=== PATIENT | female | born 1965 | race Caucasian/White ===

== ENCOUNTER 2016-12-27 13:32 | Emergency (ER) | payer BC, OTHER ==
[~2016-12-27] VITALS: Ht 154.9 cm; Wt 102.1 kg
[~2016-12-27 13:32] MED LIST: ALBU8.5H2 IH; CYCL10TA9 PO; DIPH25TA82 PO; FOLI1TAB24 PO; HYDR-34 PO; HYDR-3720 PO; LISI40TA PO; LYRICA; MELO7.5T46 PO; OMEP20CA12 PO; OMEP20CA6; ONDN4T PO; OTC SINUS; PREG75CA PO; RABE20TA PO; TRAM50TA2 PO; TRAZ150T42 PO; TRM50T PO; VARE1TAB19 PO; VENL150C PO; VENL25TA5 PO; VENL75CA PO; VNL75T PO; ZLP5T PO; ZOLP10TA5 PO
[2016-12-27] MEDS: RX-NITROGLYCERIN 0.4 MG TAB BTL 25'S SL PRN (13:47)
--- NOTE | 2016-12-27 13:52 | ED General ---
General Chief Complaint: General Problems/Pain Stated Complaint: L ARM, BACK, BOTH LEGS NUMBNESS. CP Source of Information: Patient, Family Exam Limitations: No Limitations History of Present Illness Time Seen by Provider: 13:47 Initial Comments This 51-year-old white female presents with a complaint of numbness in her left arm. Patient states that she's had progressive numbness and left arm for the last several weeks. In addition the patient has noted increased swelling of her lower extremities and associated pitting edema. The patient denies pressure -type chest pain, shortness of breath, fever or chills, previous significant injury to the head neck or left arm. Past medical history includes hypertension. The patient denies change in medications. Patient denies associated fever or chills, stiff neck, headache, cough, palpitations, nausea, vomiting, or diaphoresis. Allergies and Home Medications Allergies Coded Allergies: methotrexate (Unverified Allergy, Unknown, INCREASED LIVER ENZYMES, ) procaine (Unverified Allergy, Unknown, RASH, 06/26/14) Home Medications Albuterol 8.5 Gm Hfa.aer.ad, 1 PUFF IH RTQ4HR, (Reported) 1 PUFFS Folic Acid 1 Mg Tablet, 1 MG PO DAILY, (Reported) Lisinopril 40 Mg Tablet, 40 MG PO DAILY, (Reported) Trazodone Hcl 150 Mg Tablet, 150 MG PO HS, (Reported) Venlafaxine HCl 75 Mg Cap.er.24h, 75 MG PO DAILY, (Reported) TAKE WITH 150MG DOSE Venlafaxine HCl 75 Mg Tab, 75 MG PO DAILY, (Reported) Venlafaxine Hcl 150 Mg Cap.sr.24h, 150 MG PO DAILY, (Reported) TAKE WITH 75MG DOSE Zolpidem Tartrate 10 Mg Tablet, 10 MG PO HS PRN for INSOMNIA, (Reported) PRN INSOMNIA Constitutional: No chills, No fever, malaise, weakness EENTM: No hearing loss, No vision loss Respiratory: No cough, No dyspnea on exertion, No short of breath Cardiovascular: No chest pain Gastrointestinal: No abdominal pain, No diarrhea, No nausea, No vomiting Genitourinary: no symptoms reported Musculoskeletal: no symptoms reported Skin: no symptoms reported Psychiatric/Neurological: No Symptoms Reported Hematologic/Lymphatic: No Symptoms Reported Past Janxitc-Ywldrt-Pekccr Hx Patient Social History Recent Foreign Travel: No Contact w/Someone Who Travel: No Immunizations Up To Date Date of Pneumonia Vaccine: Mar 08, 2013 Date of Influenza Vaccine: Jan 09, 2011 Respiratory Respiratory Disorders: Asthma, COPD Reproductive System Hx Reproductive Disorders: No Sexually Transmitted Disease: No [employer] History: Tubal Ligation Musculoskeletal Musculoskeletal Disorders: Fibromyalgia Reviewed Nursing Assessment Reviewed/Agree w Nursing PMH: Yes Physical Exam Vital Signs Vital Sign - Last 12Hours 12/27/16 13:36 Temp 97.4 Pulse 84 Resp 18 B/P (MAP) 154/110 Pulse Ox 97 O2 Delivery Room Air Capillary Refill : General Appearance: No Apparent Distress, WD/WN Eyes: Bilateral Eye Normal Inspection HEENT: Normal ENT Inspection Neck: Normal Inspection Respiratory: Chest Non Tender, Lungs Clear, Normal Breath Sounds Cardiovascular: Regular Rate, Rhythm, No JVD, No Murmur Gastrointestinal: Normal Bowel Sounds, No Organomegaly, No Pulsatile Mass Back: Normal Inspection Extremity: Normal Capillary Refill, Normal Inspection, Normal Range of Motion Neurologic/Psychiatric: No Motor/Sensory Deficits, Normal Mood/Affect Skin: Normal Color, Warm/Dry Progress/Results/Core Measures Results/Orders Lab Results Laboratory Tests Test 12/27/16 10:43 Range/Units White Blood Count 8.0 4.3-11.0 10^3/uL Red Blood Count 4.53 4.35-5.85 10^6/uL Hemoglobin 13.2 11.5-16.0 G/DL Hematocrit 40 35-52 % Mean Corpuscular Volume 89 80-99 FL Mean Corpuscular Hemoglobin 29 25-34 PG Mean Corpuscular Hemoglobin Concent 33 32-36 G/DL Red Cell Distribution Width 12.6 10.0-14.5 % Platelet Count 291 130-400 10^3/uL Mean Platelet Volume 10.1 7.4-10.4 FL Neutrophils (%) (Auto) 49 42-75 % Lymphocytes (%) (Auto) 42 12-44 % Monocytes (%) (Auto) 7 0-12 % Eosinophils (%) (Auto) 2 0-10 % Basophils (%) (Auto) 0 0-10 % Neutrophils # (Auto) 3.9 1.8-7.8 X 10^3 Lymphocytes # (Auto) 3.3 1.0-4.0 X 10^3 Monocytes # (Auto) 0.6 0.0-1.0 X 10^3 Eosinophils # (Auto) 0.2 0.0-0.3 10^3/uL Basophils # (Auto) 0.0 0.0-0.1 10^3/uL Prothrombin Time 12.0 L 12.2-14.7 SEC INR Comment 0.9 0.8-1.4 Activated Partial Thromboplast Time 34 24-35 SEC D-Dimer 0.39 0.00-0.49 UG/ML Sodium Level 139 135-145 MMOL/L Potassium Level 4.0 3.6-5.0 MMOL/L Chloride Level 102 98-107 MMOL/L Carbon Dioxide Level 25 21-32 MMOL/L Anion Gap 12 5-14 MMOL/L Blood Urea Nitrogen 12 7-18 MG/DL Creatinine 0.76 0.60-1.30 MG/DL Estimat Glomerular Filtration Rate > 60 BUN/Creatinine Ratio 16 Glucose Level 121 H 70-105 MG/DL Calcium Level 9.5 8.5-10.1 MG/DL Magnesium Level 1.8 1.8-2.4 MG/DL Total Bilirubin 0.4 0.1-1.0 MG/DL Aspartate Amino Transf (AST/SGOT) 28 5-34 U/L Alanine Aminotransferase (ALT/SGPT) 37 0-55 U/L Alkaline Phosphatase 109 40-136 U/L Myoglobin 70.0 10.0-92.0 NG/ML Troponin I < 0.30 <0.30 NG/ML B-Type Natriuretic Peptide 10.6 <100.0 PG/ML Total Protein 7.6 6.4-8.2 GM/DL Albumin 4.1 3.2-4.5 GM/DL My Orders Orders - MAKI, RUSTY Shaw MD Cbc With Automated Diff (12/27/16 13:45) Magnesium (12/27/16 13:45) Chest 1 View, Ap/Pa Only (12/27/16 13:45) Ekg Tracing (12/27/16 13:45) Cardiac Profile 1 (12/27/16 13:45) Comprehensive Metabolic Panel (12/27/16 13:45) Myoglobin Serum (12/27/16 13:45) Protime With Inr (12/27/16 13:45) Partial Thromboplastin Time (12/27/16 13:45) O2 (12/27/16 13:45) Monitor-Rhythm Ecg Trace Only (12/27/16 13:45) Lipid Panel (12/28/16 06:00) Aspirin Chewable Tablet (Baby Aspirin Ch (12/27/16 13:45) Rx-Nitroglycerin Sl Tabs (Rx-Nitrostat S (12/27/16 13:45) Saline Lock/Iv-Start (12/27/16 13:45) BNP (12/27/16 13:45) Fibrin Degradation Products (12/27/16 13:45) Medications Given in ED Current Medications Medications Dose Ordered Sig/Erick Route Start Time Stop Time Status Last Admin Dose Admin Aspirin 324 mg ONCE ONCE PO 12/27/16 13:45 12/27/16 13:47 DC 12/27/16 13:55 324 MG Vital Signs/I&O Vital Sign - Last 12Hours 12/27/16 13:36 Temp 97.4 Pulse 84 Resp 18 B/P (MAP) 154/110 Pulse Ox 97 O2 Delivery Room Air Progress Note : Time: 14:53 Progress Note The patient's EKG and laboratory tests including d-dimer, BNP, and troponin were all normal. Patient was reassured. She was asked to follow up with her caregiver for further evaluation on Thursday. She was invited to return to the emergency department if she had any further problems or questions. Departure Impression Impression: Primary Impression: Paresthesias Disposition: 01 HOME, SELF-CARE Condition: Unchanged Departure-Patient Inst. Decision time for Depature: 14:54 Referrals: [facility][1] (PCP) Primary Care Physician TON LERMA (Family) Primary Care Physician Patient Instructions: Paresthesias (DC) Add. Discharge Instructions: Follow-up [facility] on Thursday. Rest this . Return if any problems. All discharge instructions reviewed with patient and/or family. Voiced understanding. RUSTY GAMBINO MD Dec 27, 2016 13:52
[2016-12-27] MEDS: ASPIRIN 81 MG CHEW (CHILDREN'S ASA) PO ONE (13:55)
[2016-12-27 13:56] LABS: BASOPHILS % (AUTO) 0 % (0-10); EOSINOPHILS # (AUTO) 0.2 10^3/uL (0.0-0.3); EOSINOPHILS % (AUTO) 2 % (0-10); LYMPHOCYTES # (AUTO) 3.3 X 10^3 (1.0-4.0); LYMPHOCYTES % (AUTO) 42 % (12-44); MEAN CORPUSCULAR HEMOGLOBIN 29 PG (25-34); MEAN CORPUSCULAR HGB CONC 33 G/DL (32-36); MEAN CORPUSCULAR VOLUME 89 FL (80-99); MEAN PLATELET VOLUME 10.1 FL (7.4-10.4); MONOCYTES # (AUTO) 0.6 X 10^3 (0.0-1.0); MONOCYTES % (AUTO) 7 % (0-12); NEUTROPHILS # (AUTO) 3.9 X 10^3 (1.8-7.8); NEUTROPHILS % (AUTO) 49 % (42-75); PLATELET COUNT 291 10^3/uL (130-400); RED BLOOD COUNT 4.53 10^6/uL (4.35-5.85); RED CELL DISTRIBUTION WIDTH 12.6 % (10.0-14.5)
--- NOTE | 2016-12-27 14:02 | Diagnostic Imaging Report ---
INDICATION: Numbness in both legs. Left arm pain A single view of the chest shows normal heart size and vascularity. The lungs are clear. There is no effusion or pneumothorax. There is no bony abnormality. IMPRESSION: Normal chest. Dictated by: Dictated on workstation # [id number]
[2016-12-27 14:06] LABS: INR 0.9 (0.8-1.4)
[2016-12-27 14:14] LABS: ALANINE AMINOTRANSFERASE 37 U/L (0-55); ALBUMIN 4.1 GM/DL (3.2-4.5); ANION GAP 12 MMOL/L (5-14); ASPARTATE AMINO TRANSFERASE 28 U/L (5-34); BILIRUBIN,TOTAL 0.4 MG/DL (0.1-1.0); BLOOD UREA NITROGEN 12 MG/DL (7-18); BUN/CREATININE RATIO 16; CALCIUM 9.5 MG/DL (8.5-10.1); CARBON DIOXIDE 25 MMOL/L (21-32); CHLORIDE 102 MMOL/L (98-107); CREATININE SERUM 0.76 MG/DL (0.60-1.30); GFR ESTIMATED > 60; GLUCOSE 121 MG/DL (70-105); MAGNESIUM 1.8 MG/DL (1.8-2.4); SODIUM 139 MMOL/L (135-145); TOTAL PROTEIN 7.6 GM/DL (6.4-8.2)
[2016-12-27 15:13] VITALS: BP 138/89
--- OUTSIDE RECORDS SUMMARY | 2016-12-29 10:14 | XMS REPORT ---
Author Author TON LERMA [facility] eClinicalWorks Address Unknown Phone Unavailable Care Team Providers Care Pump Mechanic Name Role Phone TON LERMA CP Unavailable Allergies No Known Allergies Problems Problem Type Condition Code Onset Dates Condition Status Problem Abnormal PFT R94.2 Active Problem Anxiety F41.9 Active Problem GERD with esophagitis K21.0 Active Problem Edema, unspecified type R60.9 Active Assessment Visit for TB skin test Z11.1 Active Problem Weight gain R63.5 Active Problem Psoriasis vulgaris L40.0 Active Problem Uncomplicated asthma, unspecified asthma severity J45.909 Active Problem Recurrent major depressive disorder, remission status unspecified F33.9 Active Problem Mild persistent asthma without complication J45.30 Active Problem Tremors of nervous system R25.1 Active Problem Unspecified gastritis and gastroduodenitis without mention of hemorrhage 535.50 Active Problem Unspecified myalgia and myositis 729.1 Active Problem H/O esophagogastroduodenoscopy Z98.89 Active Problem Other abnormal blood chemistry 790.6 Active Problem Lateral epicondylitis of elbow 726.32 Active Problem Lumbago 724.2 Active Problem Galactorrhea not associated with childbirth 611.6 Active Problem Posttraumatic stress disorder 309.81 Active Problem Symptomatic menopausal or female climacteric states 627.2 Active Problem Diarrhea 787.91 Active Medications No Known Medications Procedures Procedure Coding System Code Date TB INTRADERMAL TEST CPT-4 65701 Mar 07, 2016 Results No Known Results Summary Purpose eClinicalWorks Submission
--- OUTSIDE RECORDS SUMMARY | 2016-12-29 10:14 | XMS REPORT ---
Author Author TON LERMA [facility] eClinicalWorks Address Unknown Phone Unavailable Care Team Providers Care Orthopedic Physician Assistant Name Role Phone TON LERMA CP Unavailable Allergies No Known Allergies Problems Problem Type Condition Code Onset Dates Condition Status Problem Diarrhea 787.91 Active Problem GERD with esophagitis K21.0 Active Problem Abnormal PFT R94.2 Active Problem Weight gain R63.5 Active Problem Mild persistent asthma without complication J45.30 Active Problem Edema, unspecified type R60.9 Active Problem Recurrent major depressive disorder, remission status unspecified F33.9 Active Problem Anxiety F41.9 Active Problem Tremors of nervous system R25.1 Active Problem Uncomplicated asthma, unspecified asthma severity J45.909 Active Problem Other abnormal blood chemistry 790.6 Active Problem Unspecified gastritis and gastroduodenitis without mention of hemorrhage 535.50 Active Assessment Non morbid obesity, unspecified obesity type E66.9 Active Problem H/O esophagogastroduodenoscopy Z98.89 Active Problem Symptomatic menopausal or female climacteric states 627.2 Active Problem Lateral epicondylitis of elbow 726.32 Active Problem Unspecified myalgia and myositis 729.1 Active Problem Lumbago 724.2 Active Problem Galactorrhea not associated with childbirth 611.6 Active Problem Posttraumatic stress disorder 309.81 Active Medications Medication Code System Code Instructions Start Date End Date Status D[facility] [address]-61 8-90 MG Orally Twice a day November 06, 2015 2 tablets Results No Known Results Summary Purpose eClinicalWorks Submission
--- OUTSIDE RECORDS SUMMARY | 2016-12-29 10:14 | XMS REPORT ---
Author Author TON LERMA [facility] Address [address] [place] [address] Care Team Providers Care Collection Manager Name Role Phone TON LERMA Unavailable PROBLEMS Type Condition ICD9-CM Code XXC06-BG Code Onset Dates Condition Status SNOMED Code Assessment Vertigo R42 Mar, Active 150931716 Problem Anxiety F41.9 Active 01524971 Assessment Pain of upper abdomen R10.10 Mar, Active 64876046 Problem Recurrent major depressive disorder, remission status unspecified F33.9 Active 54258380 Problem H/O esophagogastroduodenoscopy Z98.89 Active 572398640 Problem Uncomplicated asthma, unspecified asthma severity J45.909 Active 110579507 Problem Mild persistent asthma without complication J45.30 Active 456863224 Problem Tremors of nervous system R25.1 Active 69251177 Problem Essential hypertension I10 Active 74886797 Problem Insomnia, unspecified type G47.00 Active 473921364 Problem Unspecified myalgia and myositis 729.1 Active 650147765 Problem Unspecified gastritis and gastroduodenitis without mention of hemorrhage 535.50 Active 600538519 Problem Other abnormal blood chemistry 790.6 Active 391315219 Problem Edema, unspecified type R60.9 Active 397165955 Problem Weight gain R63.5 Active 3471835 Problem Arthritis M19.90 Active 5443818 Problem Psoriasis vulgaris L40.0 Active 251318699 Problem Lateral epicondylitis of elbow 726.32 Active 930692938 Problem Lumbago 724.2 Active 302281120 Problem Galactorrhea not associated with childbirth 611.6 Active 92580251 Problem Symptomatic menopausal or female climacteric states 627.2 Active 38692051 Problem Abnormal PFT R94.2 Active 693300741 Problem GERD with esophagitis K21.0 Active 610635221 Problem Posttraumatic stress disorder 309.81 Active 99291599 Problem Diarrhea 787.91 Active 07549888 ALLERGIES Substance Reaction Event Type Date Status Latex Gloves rash Drug Allergy Mar, Active Band-Aid rash Drug Allergy Mar, Active Novocain rash Drug Allergy Mar, Active Methotrexate Elevates LFT Drug Allergy Mar, Active SOCIAL HISTORY No smoking Hx information available PLAN OF CARE VITAL SIGNS Height 62.1 in 2016-03-17 Weight 215.2 lbs 2016-03-17 Heart Rate 84 bpm 2016-03-17 Respiratory Rate 20 2016-03-17 BMI 39.23 kg/m2 2016-03-17 Blood pressure systolic 134 mmHg 2016-03-17 Blood pressure diastolic 82 mmHg 2016-03-17 MEDICATIONS Medication Instructions Dosage Frequency Start Date End Date Duration Status Lisinopril 40 mg Orally Once a day 1 tablet 24h 90 days Active Folic Acid 1 MG Orally Once a day 1 tablet 24h 90 days Active Trazodone HCl 100 MG Orally Once a day 1 tablet at bedtime as needed 24h 90 days Active Proventil HFA 108 (90 Base) MCG/ACT INHALE TWO PUFFS BY MOUTH FOUR TIMES DAILY 25 Active Stelara 45 MG/0.5ML Active Effexor XR 150 MG Orally Once a day 1 capsule with food 24h 90 days Active Meclizine HCl 25 MG Orally 4 times a day 1 tablet as needed 6h Mar, Active Omeprazole 40 MG Orally 2 times a day 1 capsules 12h Active Propranolol HCl 20 mg Orally twice a day 1 tablet 12h 90 days Active Albuterol Sulfate (2.5 MG/3ML) 0.083% Inhalation Three times a day prn 3 ml 07 days Active RESULTS Name Result Date Reference Range LIPASE 2016-03-17 Lipase, Serum 98 0-59 CBC 2016-03-17 WBC 10.4 3.4-10.8 RBC 4.79 3.77-5.28 Hemoglobin 14.1 11.1-15.9 Hematocrit 43.1 34.0-46.6 MCV 90 79-97 MCH 29.4 26.6-33.0 MCHC 32.7 31.5-35.7 RDW 13.4 12.3-15.4 Platelets 362 150-379 Neutrophils 57 Lymphs 36 Monocytes 6 Eos 1 Basos 0 Neutrophils (Absolute) 5.9 1.4-7.0 Lymphs (Absolute) 3.7 0.7-3.1 Monocytes(Absolute) 0.7 0.1-0.9 Eos (Absolute) 0.1 0.0-0.4 Baso (Absolute) 0.0 0.0-0.2 Immature Granulocytes 0 Immature Grans (Abs) 0.0 0.0-0.1 CMP 2016-03-17 Glucose, Serum 108 65-99 BUN 9 6-24 Creatinine, Serum 0.77 0.57-1.00 eGFR If NonAfricn Am 90 >59 eGFR If Africn Am 103 >59 BUN/Creatinine Ratio 12 9-23 Sodium, Serum 142 136-144 Potassium, Serum 4.0 3.5-5.2 Chloride, Serum 101 97-106 Carbon Dioxide, Total 27 18-29 Calcium, Serum 9.5 8.7-10.2 Protein, Total, Serum 7.2 6.0-8.5 Albumin, Serum 4.2 3.5-5.5 Globulin, Total 3.0 1.5-4.5 A/G Ratio 1.4 1.1-2.5 Bilirubin, Total 0.2 0.0-1.2 Alkaline Phosphatase, S 124 39-117 AST (SGOT) 28 0-40 ALT (SGPT) 40 0-32 PROCEDURES Procedure Date Ordered Related Diagnosis Body Site COMPLETE CBC W/AUTO DIFF WBC Mar 17, 2016 COMPREHEN METABOLIC PANEL Mar 17, 2016 URINALYSIS, AUTO, W/O SCOPE Mar 17, 2016 ASSAY OF LIPASE Mar 17, 2016 VENIPUNCT, ROUTINE* Mar 17, 2016 Office Visit, Est Pt., Level 3 Mar 17, 2016 IMMUNIZATIONS No Known Immunizations
--- OUTSIDE RECORDS SUMMARY | 2016-12-29 10:15 | XMS REPORT ---
Author Author ANDIE DE LA GARZA [facility] eClinicalWorks Address Unknown Phone Unavailable Care Team Providers Care Garage Construction Equipment Mechanic Name Role Phone ANDIE DE LA GARZA CP Unavailable Allergies, Adverse Reactions, Alerts Substance Reaction Event Type Latex Gloves rash Drug Allergy Band-Aid rash Drug Allergy Novocain rash Drug Allergy Methotrexate Elevates LFT Drug Allergy Problems Problem Type Condition ICD-9 Code Onset Dates Condition Status Assessment Chronic chest pain 786.50 Active Assessment Acute sinusitis 461.9 Active Problem Other abnormal blood chemistry 790.6 Active Problem Unspecified gastritis and gastroduodenitis without mention of hemorrhage 535.50 Active Problem Unspecified myalgia and myositis 729.1 Active Problem Depressive disorder, not elsewhere classified 311 Active Problem Dysuria 788.1 Active Problem Special screening for malignant neoplasms, colon V76.51 Active Problem Anxiety state, unspecified 300.00 Active Problem Unspecified breast screening V76.10 Active Problem Screening for malignant neoplasm of the cervix V76.2 Active Problem Intestinal infection due to other organism, NEC 008.8 Active Problem Edema 782.3 Active Problem Abdominal pain, epigastric 789.06 Active Problem Galactorrhea not associated with childbirth 611.6 Active Problem Encounter for long-term (current) use of other medications V58.69 Active Problem Pain in joint, lower leg 719.46 Active Problem Screening examination for pulmonary tuberculosis V74.1 Active Problem Acute sinusitis, unspecified 461.9 Active Problem Diarrhea 787.91 Active Problem Esophageal reflux 530.81 Active Problem Contact dermatitis and other eczema due to plants (except food) 692.6 Active Problem Dizziness and giddiness 780.4 Active Problem Lateral epicondylitis of elbow 726.32 Active Problem Pain in joint, ankle and foot 719.47 Active Problem Symptomatic menopausal or female climacteric states 627.2 Active Problem Lumbago 724.2 Active Problem Posttraumatic stress disorder 309.81 Active Problem Oral aphthae 528.2 Active Problem Acute bronchitis 466.0 Active Medications Medication Code System Code Instructions Start Date End Date Status Dosage Effexor XR [facility] [address]-43 150 MG Orally Once a day 1 capsule with food Omeprazole [facility] 91033167740 20 MG Orally 2 times a day 1 capsule Cyclobenzaprine HCl [facility] [address]-69 10 MG Orally Three times a day 1 tablet Hydrocodone-Acetaminophen [facility] [address]-57 10-325 MG Orally every 8 hrs 1 tablet as needed Albuterol Sulfate [facility] [address]-85 (2.5 MG/3ML) 0.083% Inhalation Three times a day 3 ml Lisinopril [facility] 59214759571 40 MG Orally Once a day 1 tablet Carafate [facility] [address]-00 1 GM Orally Twice a day 1 tablet on an empty stomach Proventil HFA [facility] [address]-83 108 (90 Base) MCG/ACT Inhalation every 4 hrs 2 puffs as needed MiraLax [facility] [address]-76 1 Orally Once a day Dec 12, 2014 July 10, 2015 1 packet mixed with 8 ounces of fluid Humira [facility] [address]-03 40 MG/0.8ML Subcutaneous 0.8 Azithromycin [facility] [address]-94 250 MG Orally Once a day Jan 23, 2015 Jan 30, 2015 2 tablets on the first day, then 1 tablet daily for 6 days Propranolol HCl [facility] [address]-96 10 MG Orally Twice a day 1 tablet Effexor XR [facility] [address]-94 75 MG Orally Once a day 1 capsule with food Trazodone HCl [facility] [address]-22 100 MG Orally Once a day 1 tablet at bedtime as needed Folic Acid [facility] 90979131480 1 MG Orally Once a day 1 tablet Procedures Procedure Coding System Code Date Office Visit, Est Pt., Level 3 CPT-4 17890 Jan 23, 2015 Vital Signs Date/Time: Jan 23, 2015 Temperature 98.2 F Weight 177.0 lbs Height 62 in BMI 32.37 Index Blood Pressure Diastolic 70 mmHg Blood Pressure Systolic 140 mmHg Cardiac Monitoring Heart Rate 70 bpm Results No Known Results Summary Purpose eClinicalWorks Submission
--- OUTSIDE RECORDS SUMMARY | 2016-12-29 10:15 | XMS REPORT ---
Author Author TON LERMA [facility] eClinicalWorks Address Unknown Phone Unavailable Care Team Providers Care Conveyor Tender Name Role Phone TON LERMA CP Unavailable Allergies No Known Allergies Problems Problem Type Condition Code Onset Dates Condition Status Problem Abnormal PFT R94.2 Active Problem Anxiety F41.9 Active Problem GERD with esophagitis K21.0 Active Problem Edema, unspecified type R60.9 Active Assessment Psoriasis vulgaris L40.0 Active Problem Weight gain R63.5 Active Problem [...] Diarrhea 787.91 Active Medications No Known Medications Results No Known Results Summary Purpose eClinicalWorks Submission
--- OUTSIDE RECORDS SUMMARY | 2016-12-29 10:15 | XMS REPORT ---
Author Author TON LERMA [facility] eClinicalWorks Address Unknown Phone Unavailable Care Team Providers Care Retail Interior Designer Name Role Phone TON LERMA CP Unavailable Allergies, Adverse Reactions, Alerts Substance Reaction Event Type Latex Gloves rash Drug Allergy Band-Aid rash Drug Allergy Novocain rash Drug Allergy Methotrexate Elevates LFT Drug Allergy Problems Problem Type Condition Code Onset Dates Condition Status Assessment Colitis K52.9 Active Problem Other abnormal blood chemistry 790.6 Active Problem H/O esophagogastroduodenoscopy Z98.89 Active Problem Unspecified gastritis and gastroduodenitis without mention of hemorrhage 535.50 Active Problem Unspecified myalgia and myositis 729.1 Active Problem Dysuria 788.1 Active Problem Anxiety state, unspecified 300.00 Active Problem Screening examination for pulmonary tuberculosis V74.1 Active Problem Intestinal infection due to other organism, NEC 008.8 Active Problem Encounter for long-term (current) use of other medications V58.69 Active Problem Screening for malignant neoplasm of the cervix V76.2 Active Problem Galactorrhea not associated with childbirth 611.6 Active Problem Diarrhea 787.91 Active Problem Contact dermatitis and other eczema due to plants (except food) 692.6 Active Problem Acute sinusitis, unspecified 461.9 Active Problem Anxiety F41.9 Active Problem GERD with esophagitis K21.0 Active Problem Dizziness and giddiness 780.4 Active Problem Symptomatic menopausal or female climacteric states 627.2 Active Problem Major depression, recurrent 296.30 Active Problem Pain in joint, ankle and foot 719.47 Active Problem Abdominal pain, epigastric 789.06 Active Problem Esophageal reflux 530.81 Active Problem Pain in joint, lower leg 719.46 Active Problem Edema 782.3 Active Problem Acute bronchitis 466.0 Active Problem Lumbago 724.2 Active Problem Lateral epicondylitis of elbow 726.32 Active Problem Oral aphthae 528.2 Active Problem Special screening for malignant neoplasms, colon V76.51 Active Problem Unspecified breast screening V76.10 Active Problem Posttraumatic stress disorder 309.81 Active Problem Depressive disorder, not elsewhere classified 311 Active Medications Medication Code System Code Instructions Start Date End Date Status Dosage Lisinopril [facility] 99181675796 40 MG Orally Once a day 1 tablet Propranolol HCl [facility] [address]-81 20 MG Orally Twice a day 1 tablet Albuterol Sulfate [facility] [address]-87 (2.5 MG/3ML) 0.083% Inhalation Three times a day 3 ml Trazodone HCl [facility] [address]-53 100 MG Orally Once a day 1 tablet at bedtime as needed Nexium [facility] [address]-58 40 MG Orally Once a day May 08, 2015 1 capsule Effexor XR [facility] [address]-77 75 MG Orally Once a day 1 capsule with food Humira [facility] [address]-10 40 MG/0.8ML Subcutaneous 0.8 Proventil HFA [facility] 24163360655 108 (90 Base) MCG/ACT INHALE TWO PUFFS BY MOUTH FOUR TIMES DAILY Sucralfate [facility] 24499351527 1 GM TAKE ONE TABLET BY MOUTH FOUR TIMES DAILY NEEDED MiraLax [facility] [address]-99 1 Orally Once a day Dec 12, 2014 July 10, 2015 1 packet mixed with 8 ounces of fluid Delzicol [facility] [address]-29 400 MG Orally Four times a day Jun 07, 2015 August 06, 2015 1 capsule Folic Acid [facility] 56748654626 1 MG Orally Once a day 1 tablet Azulfidine [facility] [address]-22 500 MG Orally every 6 hrs Jun 07, 2015 August 06, 2015 1 tablet Effexor XR [facility] [address]-68 150 MG Orally Once a day 1 capsule with food Procedures Procedure Coding System Code Date Office Visit, Est Pt., Level 3 CPT-4 93302 Jun 07, 2015 Vital Signs Date/Time: Jun 07, 2015 Temperature 97.9 F Weight 200.9 lbs Height 62 in BMI 36.74 Index Blood Pressure Diastolic 90 mmHg Blood Pressure Systolic 140 mmHg Cardiac Monitoring Heart Rate 64 bpm Results No Known Results Summary Purpose eClinicalWorks Submission
--- OUTSIDE RECORDS SUMMARY | 2016-12-29 10:15 | XMS REPORT ---
Author Author TON LERMA Organization eClinicalWorks Address Unknown Phone Unavailable Care Team Providers Care Outside Sales Consultant Name Role Phone TON LERMA CP Unavailable Allergies No Known Allergies Problems Problem Type Condition ICD-9 Code Onset Dates Condition Status Problem Other abnormal blood chemistry 790.6 Active [...] Active Problem Acute bronchitis 466.0 Active Medications No Known Medications Results No Known Results Summary Purpose eClinicalWorks Submission
--- OUTSIDE RECORDS SUMMARY | 2016-12-29 10:15 | XMS REPORT ---
Author Author TON LERMA [facility] eClinicalWorks Address Unknown Phone Unavailable Care Team Providers Care Flight Engineer Helicopter Name Role Phone TON LERMA CP Unavailable Allergies No Known Allergies Problems Problem Type Condition Code Onset Dates Condition Status Problem Recurrent major depressive disorder, remission status unspecified F33.9 Active Problem Tremors of nervous system R25.1 Active Problem Uncomplicated asthma, unspecified asthma severity J45.909 Active Problem Insomnia, unspecified type G47.00 Active Problem Unspecified gastritis and gastroduodenitis without mention of hemorrhage 535.50 Active Problem Arthritis M19.90 Active Problem Other abnormal blood chemistry 790.6 Active Problem H/O esophagogastroduodenoscopy Z98.89 Active Problem Essential hypertension I10 Active Problem Weight gain R63.5 Active Problem Mild persistent asthma without complication J45.30 Active Problem Psoriasis vulgaris L40.0 Active Problem Edema, unspecified type R60.9 Active Problem Symptomatic menopausal or female climacteric states 627.2 Active Problem Lateral epicondylitis of elbow 726.32 Active Problem Unspecified myalgia and myositis 729.1 Active Problem Galactorrhea not associated with childbirth 611.6 Active Problem Diarrhea 787.91 Active Problem Abnormal PFT R94.2 Active Problem Lumbago 724.2 Active Problem GERD with esophagitis K21.0 Active Problem Posttraumatic stress disorder 309.81 Active Problem Anxiety F41.9 Active Medications No Known Medications Results No Known Results Summary Purpose eClinicalWorks Submission
--- OUTSIDE RECORDS SUMMARY | 2016-12-29 10:16 | XMS REPORT ---
Author Author TON LERMA [facility] eClinicalWorks Address Unknown Phone Unavailable Care Team Providers Care Specialty Transformer Assembler Name Role Phone TON LERMA CP Unavailable [...]
--- OUTSIDE RECORDS SUMMARY | 2016-12-29 10:16 | XMS REPORT ---
Author Author TON LERMA [facility] eClinicalWorks Address Unknown Phone Unavailable Care Team Providers Care Nurse'S Assistant Name Role Phone TON LERMA CP [...] Active Problem GERD with esophagitis K21.0 Active Assessment Lower abdominal pain R10.30 Active Problem Posttraumatic stress disorder 309.81 Active Problem Anxiety F41.9 Active Medications No Known Medications Results No Known Results Summary Purpose eClinicalWorks Submission
--- OUTSIDE RECORDS SUMMARY | 2016-12-29 10:16 | XMS REPORT ---
Author Author REG ISAACS [facility] eClinicalWorks Address Unknown Phone Unavailable Care Team Providers Care Viscera Washer Name Role Phone REG ISAACS CP Unavailable Allergies No Known Allergies Problems Problem Type Condition Code Onset Dates Condition Status Problem Depressive disorder, not elsewhere classified 311 Active Problem Diarrhea 787.91 Active Problem Intestinal infection due to other organism, NEC 008.8 Active Problem Anxiety F41.9 Active Problem Other abnormal blood chemistry 790.6 Active Problem GERD with esophagitis K21.0 Active Problem H/O esophagogastroduodenoscopy Z98.89 Active Assessment BMI 37.0-37.9, adult Z68.37 Active Problem Major depression, recurrent 296.30 Active Problem Abdominal pain, epigastric 789.06 Active Problem Esophageal reflux 530.81 Active Problem Pain in joint, lower leg 719.46 Active Problem Edema 782.3 Active Problem Dysuria 788.1 Active Problem Galactorrhea not associated with childbirth 611.6 Active Problem Unspecified gastritis and gastroduodenitis without mention of hemorrhage 535.50 Active Problem Unspecified myalgia and myositis 729.1 Active Problem Dizziness and giddiness 780.4 Active Problem Lateral epicondylitis of elbow 726.32 Active Problem Pain in joint, ankle and foot 719.47 Active Problem Lumbago 724.2 Active Problem Symptomatic menopausal or female climacteric states 627.2 Active Problem Posttraumatic stress disorder 309.81 Active Medications No Known Medications Procedures Procedure Coding System Code Date No Charge CPT-4 04489 August 31, 2015 Vital Signs Date/Time: August 31, 2015 Temperature 98.2 F Weight 206.2 lbs Height 62.1 in BMI 37.59 Index Blood Pressure Diastolic 98 mmHg Blood Pressure Systolic 160 mmHg Cardiac Monitoring Heart Rate 76 bpm Results No Known Results Summary Purpose eClinicalWorks Submission
--- OUTSIDE RECORDS SUMMARY | 2016-12-29 10:16 | XMS REPORT ---
Author Author TON LERMA [facility] Address [address] [place] [address] Care Team Providers Care Loading Rack Supervisor Name Role Phone TON LERMA Unavailable PROBLEMS Type Condition ICD9-CM Code [id number] Code Onset Dates Condition Status SNOMED Code Problem Psoriasis vulgaris L40.0 Active 908763191 Problem Insomnia, unspecified type G47.00 Active 996258860 Problem Arthritis M19.90 Active 2505275 Problem Abnormal swallowing R13.10 Active 96077822 Problem Chronic superficial gastritis without bleeding K29.30 Active 763320697 Problem History of colon polyps Z86.010 Active 819971971 Problem Essential hypertension I10 Active 33928909 Problem Angina at rest I20.8 Active 21432496 Problem Restless legs G25.81 Active 70715492 Problem Hypercholesterolemia E78.00 Active 21580116 Problem Anxiety F41.9 Active 51702837 Problem Uncomplicated asthma, unspecified asthma severity J45.909 Active 254427787 Problem Abnormal PFT R94.2 Active 698402849 Problem Weight gain R63.5 Active 7959950 Problem GERD with esophagitis K21.0 Active 960156017 Problem Edema, unspecified type R60.9 Active 299828403 ALLERGIES Unknown Allergies SOCIAL HISTORY No smoking Hx information available PLAN OF CARE VITAL SIGNS MEDICATIONS Unknown Medications RESULTS Name Result Date Reference Range Xray : Chest (IN HOUSE) 2016-02-14 PROCEDURES Procedure Date Ordered Related Diagnosis Body Site CHEST X-RAY Feb 14, 2016 TB INTRADERMAL TEST Feb 14, 2016 IMMUNIZATIONS No Known Immunizations
--- OUTSIDE RECORDS SUMMARY | 2016-12-29 10:16 | XMS REPORT ---
Author Author TON LERMA [facility] eClinicalWorks Address Unknown Phone Unavailable Care Team Providers Care Director Of Design Name Role Phone TON LERMA CP Unavailable Allergies, Adverse Reactions, Alerts Substance Reaction Event Type Latex Gloves rash Drug Allergy Band-Aid rash Drug Allergy Novocain rash Drug Allergy Methotrexate Elevates LFT Drug Allergy Problems Problem Type Condition Code Onset Dates Condition Status Problem Diarrhea 787.91 Active Problem GERD with esophagitis K21.0 Active Problem Abnormal PFT R94.2 Active Problem Weight gain R63.5 Active Assessment Non morbid obesity, unspecified obesity type E66.9 Active Problem Mild persistent asthma without complication J45.30 Active Problem Edema, unspecified type R60.9 Active Problem Recurrent major depressive disorder, remission status unspecified F33.9 Active Problem Anxiety F41.9 Active Problem Tremors of nervous system R25.1 Active Problem Uncomplicated asthma, unspecified asthma severity J45.909 Active Problem Other abnormal blood chemistry 790.6 Active Problem Unspecified gastritis and gastroduodenitis without mention of hemorrhage 535.50 Active Assessment Edema, unspecified type R60.9 Active Problem H/O esophagogastroduodenoscopy Z98.89 Active Problem Symptomatic menopausal or female climacteric states 627.2 Active Problem Lateral epicondylitis of elbow 726.32 Active Problem Unspecified myalgia and myositis 729.1 Active Problem Lumbago 724.2 Active Problem Galactorrhea not associated with childbirth 611.6 Active Problem Posttraumatic stress disorder 309.81 Active Medications Medication Code System Code Instructions Start Date End Date Status Dosage Effexor XR [facility] 94831069741 150 MG TAKE ONE CAPSULE BY MOUTH ONCE DAILY WITH FOOD Lisinopril [facility] 97962181317 40 MG TAKE ONE TABLET BY MOUTH ONCE DAILY Contrave [facility] [address]-32 8-90 MG Orally at bedtime for 4 days then 1 bid X 4 days then 2 at hs and 1 in AM X 4 days then 2 tabs twice a day November 06, 2015 1 tablets Proventil HFA [facility] 39739242439 108 (90 Base) MCG/ACT INHALE TWO PUFFS BY MOUTH FOUR TIMES DAILY Folic Acid [facility] 55198236312 1 MG Orally Once a day 1 tablet Triamcinolone Acetonide [facility] [address]-45 0.1 % Externally Twice a day October 05, 2015 1 application to affected area Trazodone HCl [facility] 07439007749 100 MG Orally Once a day 1 tablet at bedtime as needed Albuterol Sulfate [facility] [address]-69 (2.5 MG/3ML) 0.083% Inhalation Three times a day prn 3 ml Sucralfate [facility] 74319104057 1 GM TAKE ONE TABLET BY MOUTH FOUR TIMES DAILY NEEDED Omeprazole [facility] [address]-48 20 mg Orally 2 times a day July 12, 2015 1 capsules Humira [facility] [address]-81 40 MG/0.8ML Subcutaneous 0.8 Procedures Procedure Coding System Code Date Office Visit, Est Pt., Level 3 CPT-4 88245 November 06, 2015 Vital Signs Date/Time: November 06, 2015 Cardiac Monitoring Heart Rate 108 bpm Weight 215 lbs Height 62.1 in BMI 39.19 Index Blood Pressure Diastolic 84 mmHg Blood Pressure Systolic 126 mmHg Results No Known Results Summary Purpose eClinicalWorks Submission
--- OUTSIDE RECORDS SUMMARY | 2016-12-29 10:16 | XMS REPORT ---
Author Author TON LERMA [facility] eClinicalWorks Address Unknown Phone Unavailable Care Team Providers Care Block Tester Name Role Phone TON LERMA CP Unavailable Allergies No Known Allergies Problems Problem Type Condition ICD-9 Code Onset Dates Condition Status Assessment Diarrhea 787.91 Active Assessment Constipation 564.00 Active Assessment Coarse tremors 781.0 Active Assessment Hand pain 729.5 Active Problem Other abnormal blood chemistry 790.6 [...] Instructions Start Date End Date Status Dosage Hydrocodone-Acetaminophen [facility] [address]-65 10-325 MG Orally every 8 hrs 1 tablet as needed Lisinopril [facility] [address]-79 40 MG Orally Once a day 1 tablet Trazodone HCl [facility] [address]-05 50 MG Orally Once a day 1 tablet at bedtime as needed Cyclobenzaprine HCl [facility] [address]-74 10 MG Orally Three times a day 1 tablet Gabapentin [facility] [address]-42 100 MG Orally 3 times a day not defined Omeprazole [facility] [address]-98 20 MG Orally Once a day 1 capsule Albuterol Sulfate [facility] [address]-53 (2.5 MG/3ML) 0.083% Inhalation Three times a day 3 ml Propranolol HCl [facility] [address]-54 10 MG Orally Twice a day 1 tablet Humira [facility] [address]-16 40 MG/0.8ML Subcutaneous 0.8 MiraLax [facility] [address]-62 1 Orally Once a day Dec 12, 2014 July 10, 2015 1 packet mixed with 8 ounces of fluid Folic Acid [facility] [address]-35 1 MG Orally Once a day 1 tablet Proventil HFA [facility] [address]-85 108 (90 Base) MCG/ACT Inhalation every 4 hrs 2 puffs as needed Effexor XR [facility] [address]-85 150 MG Orally Once a day 1 capsule with food Effexor XR [facility] [address]-54 75 MG Orally Once a day 1 capsule with food Carafate [facility] [address]-69 1 GM Orally Twice a day 1 tablet on an empty stomach Procedures Procedure Coding System Code Date No Charge CPT-4 67598 Dec 12, 2014 Office Visit, Est Pt., Level 3 CPT-4 82762 Dec 12, 2014 Vital Signs Date/Time: Dec 12, 2014 Temperature 97.5 F Weight 177.7 lbs Height 62 in BMI 32.50 Index Blood Pressure Diastolic 84 mmHg Blood Pressure Systolic 140 mmHg Cardiac Monitoring Heart Rate 76 bpm Results Name Result Date Reference Range Unit Abnormality Flag [employer] Summary Purpose eClinicalWorks Submission
--- OUTSIDE RECORDS SUMMARY | 2016-12-29 10:16 | XMS REPORT ---
Author Author TON LERMA [facility] eClinicalWorks Address Unknown Phone Unavailable Care Team Providers Care Floor Layer Tile Name Role Phone TON LERMA CP Unavailable Allergies No Known Allergies Problems Problem Type Condition Code Onset Dates Condition Status Assessment History of colon polyps Z86.010 Active Assessment Bloating R14.0 Active Problem Anxiety F41.9 Active Assessment Abdominal pain, unspecified location R10.9 Active Problem Recurrent major depressive disorder, remission status unspecified F33.9 Active Problem H/O esophagogastroduodenoscopy Z98.89 Active Problem Uncomplicated asthma, unspecified asthma severity J45.909 Active Problem Mild persistent asthma without complication J45.30 Active Problem Tremors of nervous system R25.1 Active Problem Essential hypertension I10 Active Problem Insomnia, unspecified type G47.00 Active Problem Unspecified myalgia and myositis 729.1 Active Problem Unspecified gastritis and gastroduodenitis without mention of hemorrhage 535.50 Active Problem History of colon polyps Z86.010 Active Problem Other abnormal blood chemistry 790.6 Active Problem Edema, unspecified type R60.9 Active Problem Weight gain R63.5 Active Problem Arthritis M19.90 Active Problem Psoriasis vulgaris L40.0 Active Problem Lateral epicondylitis of elbow 726.32 Active Problem Lumbago 724.2 Active Problem Galactorrhea not associated with childbirth 611.6 Active Problem Symptomatic menopausal or female climacteric states 627.2 Active Problem Abnormal PFT R94.2 Active Problem GERD with esophagitis K21.0 Active Problem Posttraumatic stress disorder 309.81 Active Problem Diarrhea 787.91 Active Medications No Known Medications Results No Known Results Summary Purpose eClinicalWorks Submission
--- OUTSIDE RECORDS SUMMARY | 2016-12-29 10:16 | XMS REPORT ---
Author Author TON LERMA [facility] eClinicalWorks Address Unknown Phone Unavailable Care Team Providers Care Facilities Plant Engineer Name Role Phone TON LERMA CP Unavailable Allergies No Known Allergies Problems Problem Type Condition Code Onset Dates Condition Status Problem Abnormal PFT R94.2 Active Problem Anxiety F41.9 Active Problem GERD with esophagitis K21.0 Active Problem Edema, unspecified type R60.9 Active Assessment long-term use of drug Z79.899 Active Problem Weight gain R63.5 Active Problem [...] Medications Procedures Procedure Coding System Code Date COMPREHEN METABOLIC PANEL CPT-4 99288 Feb 14, 2016 VENIPUNCT, ROUTINE* CPT-4 61880 Feb 14, 2016 MANUAL CELL COUNT, EACH CPT-4 10891 Feb 14, 2016 Results Name Result Date Reference Range Unit Abnormality Flag ROUTINE VENIPUNCTURE Summary Purpose eClinicalWorks Submission
--- OUTSIDE RECORDS SUMMARY | 2016-12-29 10:17 | XMS REPORT ---
Author Author TON LERMA [facility] eClinicalWorks Address Unknown Phone Unavailable Care Team Providers Care Driller Machine Name Role Phone TON LERMA CP Unavailable Allergies No Known Allergies Problems Problem Type Condition Code Onset Dates Condition Status Problem Other [...] Date End Date Status Dosage Effexor XR [facility] [address]-78 150 MG Orally Once a day 1 capsule with food Effexor XR [facility] [address]-93 75 MG Orally Once a day 1 capsule with food Results No Known Results Summary Purpose eClinicalWorks Submission
--- OUTSIDE RECORDS SUMMARY | 2016-12-29 10:17 | XMS REPORT ---
Author Author TON LERMA [facility] eClinicalWorks Address Unknown Phone Unavailable Care Team Providers Care Fender Mechanic Name Role Phone TON LERMA CP [...] Instructions Start Date End Date Status Dosage Trazodone HCl [facility] [address]-83 100 MG Orally Once a day 1 tablet at bedtime as needed Results No Known Results Summary Purpose eClinicalWorks Submission
--- OUTSIDE RECORDS SUMMARY | 2016-12-29 10:17 | XMS REPORT ---
Author Author TON LERMA [facility] eClinicalWorks Address Unknown Phone Unavailable Care Team Providers Care Finisher Accordion Name Role Phone TON LERMA CP Unavailable [...] without mention of hemorrhage 535.50 Active Problem H/O esophagogastroduodenoscopy Z98.89 Active Problem Symptomatic menopausal or female climacteric states 627.2 Active Problem Lateral epicondylitis of elbow 726.32 Active Problem Unspecified myalgia and myositis 729.1 Active Problem Lumbago 724.2 Active Problem Galactorrhea not associated with childbirth 611.6 Active Problem Posttraumatic stress disorder 309.81 Active Medications No Known Medications Results No Known Results Summary Purpose eClinicalWorks Submission
--- OUTSIDE RECORDS SUMMARY | 2016-12-29 10:17 | XMS REPORT ---
Author Author JEWELS RAMOS Organization [employer] Address Unknown Phone Unavailable Care Team Providers Care Sanding Machine Operator Or Tender Name Role Phone JEWELS RAMOS CP Unavailable Allergies, Adverse Reactions, Alerts Substance Reaction Event Type Latex Gloves rash Drug Allergy Band-Aid rash Drug Allergy Novocain rash Drug Allergy Methotrexate Elevates LFT Drug Allergy Problems Problem Type Condition ICD-9 Code Onset Dates Condition Status Assessment Major depression, recurrent 296.30 Active Assessment Anxiety state, unspecified 300.00 Active Problem Other abnormal blood chemistry 790.6 [...] Start Date End Date Status Dosage Lisinopril [facility] [address]-75 40 MG Orally Once a day 1 tablet Effexor XR [facility] [address]-94 150 MG Orally Once a day 1 capsule with food Proventil HFA [facility] [address]-81 108 (90 Base) MCG/ACT Inhalation every 4 hrs 2 puffs as needed Propranolol HCl [facility] [address]-94 10 MG Orally Twice a day 1 tablet Hydrocodone-Acetaminophen [facility] [address]-25 10-325 MG Orally every 8 hrs 1 tablet as needed Effexor XR [facility] [address]-50 75 MG Orally Once a day 1 capsule with food MiraLax [facility] [address]-83 1 Orally Once a day Dec 12, 2014 July 10, 2015 1 packet mixed with 8 ounces of fluid Cyclobenzaprine HCl [facility] [address]-56 10 MG Orally Three times a day 1 tablet Albuterol Sulfate [facility] [address]-98 (2.5 MG/3ML) 0.083% Inhalation Three times a day 3 ml Humira [facility] [address]-84 40 MG/0.8ML Subcutaneous 0.8 Trazodone HCl [facility] [address]-34 100 MG Orally Once a day 1 tablet at bedtime as needed Omeprazole [facility] [address]-10 20 MG Orally Once a day 1 capsule Folic Acid [facility] [address]-29 1 MG Orally Once a day 1 tablet Carafate [facility] [address]-00 1 GM Orally Twice a day 1 tablet on an empty stomach Procedures Procedure Coding System Code Date Office Visit, Est Pt., Level 3 CPT-4 24077 Jan 02, 2015 Vital Signs Date/Time: Jan 02, 2015 Temperature 98.0 F Weight 178.2 lbs Height 62 in BMI 32.59 Index Blood Pressure Diastolic 85 mmHg Blood Pressure Systolic 160 mmHg Cardiac Monitoring Heart Rate 68 bpm Results No Known Results Summary Purpose [employer]Works Submission
--- OUTSIDE RECORDS SUMMARY | 2016-12-29 10:17 | XMS REPORT ---
Author Author TON LERMA [facility] [employer] Address Unknown Phone Unavailable Care Team Providers Care Press Reader Name Role Phone TON LERMA CP Unavailable [...]
--- OUTSIDE RECORDS SUMMARY | 2016-12-29 10:17 | XMS REPORT ---
Author Author TON LERMA [facility] [employer] Address Unknown Phone Unavailable Care Team Providers Care Railcar Switcher Name Role Phone TON LERMA CP Unavailable [...] Problem GERD with esophagitis K21.0 Active Assessment Right upper quadrant abdominal pain R10.11 Active Problem Posttraumatic stress disorder 309.81 Active Problem Anxiety F41.9 Active Medications No Known Medications Results No Known Results Summary Purpose [employer]ClinicalWorks Submission
--- OUTSIDE RECORDS SUMMARY | 2016-12-29 10:17 | XMS REPORT ---
Author Author TON LERMA [facility] [employer] Address Unknown Phone Unavailable Care Team Providers Care Lead Caster Name Role Phone TON LERMA CP Unavailable [...] without mention of hemorrhage 535.50 Active Assessment Tremors of nervous system R25.1 Active Problem H/O esophagogastroduodenoscopy Z98.89 Active Problem Symptomatic menopausal or female climacteric states 627.2 Active Problem Lateral epicondylitis of elbow 726.32 Active Problem Unspecified myalgia and myositis 729.1 Active Problem Lumbago 724.2 Active Problem Galactorrhea not associated with childbirth 611.6 Active Problem Posttraumatic stress disorder 309.81 Active Medications Medication Code System Code Instructions Start Date End Date Status Dosage Propranolol HCl [facility] [address]-21 20 mg Orally Twice a day November 27, 2015 1 tablet Results No Known Results Summary Purpose [employer]ClinicalWorks Submission
--- OUTSIDE RECORDS SUMMARY | 2016-12-29 10:17 | XMS REPORT ---
Author Author REG ISAACS [facility] e[employer] Address Unknown Phone Unavailable Care Team Providers Care Advertising Internship Name Role Phone REG ISAACS CP Unavailable [...] Medications Procedures Procedure Coding System Code Date VENIPUNCT, ROUTINE* CPT-4 72268 September 03, 2015 ASSAY, GLUCOSE, BLOOD QUANT CPT-4 45714 September 03, 2015 Results Name Result Date Reference Range Unit Abnormality Flag ROUTINE VENIPUNCTURE Summary Purpose [employer]ClinicalWorks Submission
--- OUTSIDE RECORDS SUMMARY | 2016-12-29 10:18 | XMS REPORT ---
Author Author TON LERMA [facility] e[employer] Address Unknown Phone Unavailable Care Team Providers Care Wire Drawing Setter Name Role Phone TON LERMA CP Unavailable [...] F41.9 Active Medications No Known Medications Results Name Result Date Reference Range Unit Abnormality Flag CT Scan : Abdomen & Pelvis w/ Contrast Summary Purpose [employer]ClinicalWorks Submission
--- OUTSIDE RECORDS SUMMARY | 2016-12-29 10:18 | XMS REPORT ---
Author Author TON LERMA [facility] [employer] Address Unknown Phone Unavailable Care Team Providers Care Electromechanical Technologist Name Role Phone TON LERMA CP Unavailable Allergies, Adverse Reactions, Alerts Substance Reaction Event Type Latex Gloves rash Drug Allergy Band-Aid rash Drug Allergy Novocain rash Drug Allergy Methotrexate Elevates LFT Drug Allergy Problems Problem Type Condition Code Onset Dates Condition Status Assessment Major depression, recurrent 296.30 Active Assessment Anxiety F41.9 Active Problem Other abnormal blood [...] 782.3 Active Problem Acute bronchitis 466.0 Active Assessment GERD with esophagitis K21.0 Active Problem Lumbago 724.2 Active Problem Lateral epicondylitis of elbow 726.32 Active Problem Oral aphthae 528.2 Active Problem Special screening for malignant neoplasms, colon V76.51 Active Problem Unspecified breast screening V76.10 Active Problem Posttraumatic stress disorder 309.81 Active Problem Depressive disorder, not elsewhere classified 311 Active Medications Medication Code System Code Instructions Start Date End Date Status Dosage Trazodone HCl [facility] [address]-32 100 MG Orally Once a day 1 tablet at bedtime as needed Albuterol Sulfate [facility] [address]-73 (2.5 MG/3ML) 0.083% Inhalation Three times a day 3 ml Nexium [facility] [address]-70 40 MG Orally Once a day Samples given May 08, 2015 1 capsule Effexor XR [facility] [address]-77 150 MG Orally Once a day 1 capsule with food Folic Acid [facility] 76428144551 1 MG Orally Once a day 1 tablet Proventil HFA [facility] 15192154411 108 (90 Base) MCG/ACT INHALE TWO PUFFS BY MOUTH FOUR TIMES DAILY MiraLax [facility] [address]-58 1 Orally Once a day Dec 12, 2014 July 10, 2015 1 packet mixed with 8 ounces of fluid Effexor XR [facility] [address]-53 75 MG Orally Once a day 1 capsule with food Sucralfate [facility] 53363747860 1 GM TAKE ONE TABLET BY MOUTH FOUR TIMES DAILY NEEDED Lisinopril [facility] 41617198311 40 MG Orally Once a day 1 tablet Propranolol HCl [facility] [address]-90 20 MG Orally Twice a day 1 tablet Procedures Procedure Coding System Code Date Office Visit, Est Pt., Level 3 CPT-4 30897 May 08, 2015 Vital Signs Date/Time: May 08, 2015 Temperature 97.3 F Weight 196.4 lbs Height 62 in BMI 35.92 Index Blood Pressure Diastolic 115 mmHg Blood Pressure Systolic 150 mmHg Cardiac Monitoring Heart Rate 80 bpm Results No Known Results Summary Purpose eClinicalWorks Submission
--- OUTSIDE RECORDS SUMMARY | 2016-12-29 10:18 | XMS REPORT ---
Author Author TON LERMA [facility] eClinicalWorks Address Unknown Phone Unavailable Care Team Providers Care Procurement Technician Name Role Phone TON LERMA CP Unavailable Allergies No Known Allergies Problems Problem Type Condition Code Onset Dates Condition Status Problem H/O esophagogastroduodenoscopy Z98.89 Active Problem Other [...] Start Date End Date Status Dosage Lisinopril [facility] [address]-21 40 MG Orally, must be seen for more refills Once a day 1 tablet Results No Known Results Summary Purpose eClinicalWorks Submission
--- OUTSIDE RECORDS SUMMARY | 2016-12-29 10:18 | XMS REPORT ---
Author Author TON LERMA [facility] [employer] Address Unknown Phone Unavailable Care Team Providers Care Size Marker Name Role Phone TON LERMA CP Unavailable Allergies, Adverse Reactions, Alerts Substance Reaction Event Type Latex Gloves rash Drug Allergy Band-Aid rash Drug Allergy Novocain rash Drug Allergy Methotrexate Elevates LFT Drug Allergy Problems Problem Type Condition Code Onset Dates Condition Status Assessment Allergic rhinitis 477.9 Active Assessment Left chest pressure 786.59 Active Problem Other abnormal blood chemistry 790.6 [...] Date End Date Status Dosage Effexor XR [facility] [address]-16 75 MG Orally Once a day 1 capsule with food Omeprazole [facility] 44207319090 20 MG Orally 2 times a day 1 capsule Humira [facility] [address]-70 40 MG/0.8ML Subcutaneous 0.8 Effexor XR [facility] [address]-86 150 MG Orally Once a day 1 capsule with food Folic Acid [facility] 69037419869 1 MG Orally Once a day 1 tablet Lisinopril [facility] 28551893462 40 MG Orally Once a day 1 tablet Proventil HFA [facility] 24848306211 108 (90 Base) MCG/ACT INHALE TWO PUFFS BY MOUTH FOUR TIMES DAILY Albuterol Sulfate [facility] [address]-77 (2.5 MG/3ML) 0.083% Inhalation Three times a day 3 ml Propranolol HCl [facility] [address]-85 10 MG Orally Twice a day 1 tablet Cyclobenzaprine HCl [facility] [address]-71 10 MG Orally Three times a day 1 tablet MiraLax [facility] [address]-52 1 Orally Once a day Dec 12, 2014 July 10, 2015 1 packet mixed with 8 ounces of fluid Trazodone HCl [facility] [address]-37 100 MG Orally Once a day 1 tablet at bedtime as needed Carafate [facility] [address]-72 1 GM Orally Twice a day 1 tablet on an empty stomach Procedures Procedure Coding System Code Date Office Visit, Est Pt., Level 3 CPT-4 57752 Jan 30, 2015 Vital Signs Date/Time: Jan 30, 2015 Temperature 97.8 F Weight 177.6 lbs Height 62 in BMI 32.48 Index Blood Pressure Diastolic 90 mmHg Blood Pressure Systolic 130 mmHg Cardiac Monitoring Heart Rate 72 bpm Results No Known Results Summary Purpose eClinicalWorks Submission
--- OUTSIDE RECORDS SUMMARY | 2016-12-29 10:18 | XMS REPORT ---
Author Author TON LREMA Organization [employer] Address Unknown Phone Unavailable Care Team Providers Care Microelectronics Technician Name Role Phone TON LERMA CP [...]
--- OUTSIDE RECORDS SUMMARY | 2016-12-29 10:18 | XMS REPORT ---
Author Author TON LERMA [facility] eClinicalWorks Address Unknown Phone Unavailable Care Team Providers Care Catia Designer Name Role Phone TON LERMA CP [...] Date Status Dosage Effexor XR [facility] [address]-86 150 MG Orally Once a day 1 capsule with food Effexor XR [facility] [address]-97 75 MG Orally Once a day 1 capsule with food Results No Known Results Summary Purpose eClinicalWorks Submission
--- OUTSIDE RECORDS SUMMARY | 2016-12-29 10:19 | XMS REPORT ---
Author Author TON LERMA Organization [employer] Address Unknown Phone Unavailable Care Team Providers Care Cutting Machine Offbearer Name Role Phone TON LERMA CP Unavailable [...]
--- OUTSIDE RECORDS SUMMARY | 2016-12-29 10:19 | XMS REPORT ---
Author Author TON LERMA Organization [employer] Address Unknown Phone Unavailable Care Team Providers Care Paint Prep Technician Name Role Phone TON LERMA CP [...] disorder, not elsewhere classified 311 Active Medications No Known Medications Results No Known Results Summary Purpose eClinicalWorks Submission
== END 2016-12-27 15:12 | disposition home or self-care (01) ==
LOC: EDUNIT# 13:32 → ER 13:34
DX: R20.2 Paresthesia of skin (principal); J44.9 Chronic obstructive pulmonary disease, unspecified; Z98.51 Tubal ligation status
CPT/HCPCS: 36415; 71010; 80053; 83735; 83874; 83880; 84484; 85025; 85379; 85610; 85730; 93041

== ENCOUNTER → 2017-01-02 | Outpatient (CLI) | payer BC, OTHER | LOC: CARD 12:02 | PROVIDERS: ATTEND Nurse Practitioner Community Health | DX: R60.9 Edema, unspecified (principal) | CPT/HCPCS: 93306 ==

== ENCOUNTER → 2017-01-20 | Outpatient (CLI) | payer BC ==
--- NOTE | 2017-01-20 15:25 | Diagnostic Imaging Report ---
EXAMINATION: Upper and lower extremity pressure measurements of ankle/brachial index and pulse volume recording at the ankle. INDICATION: Hyperlipidemia. Hypertension. Claudication FINDINGS: The ankle/brachial index on the right side is 1.0, (1.03 PT, and 0.98 DP) and on the left is 1.0 (0.98 PT, and 0.91 DP). Pulse volume recording waveforms no significant abnormality. IMPRESSION: Normal EULA, bilaterally. Dictated by: Dictated on workstation # [id number]
== END ==
LOC: RAD 14:20
PROVIDERS: ATTEND Nurse Practitioner Family
DX: I73.9 Peripheral vascular disease, unspecified (principal); I10 Essential (primary) hypertension; E78.2 Mixed hyperlipidemia; R07.9 Chest pain, unspecified; R06.09 Other forms of dyspnea; R00.2 Palpitations
CPT/HCPCS: 93922

== ENCOUNTER → 2017-01-20 | Outpatient (CLI) | payer BC | LOC: CARD 14:22 | PROVIDERS: ATTEND Nurse Practitioner Family | DX: E78.2 Mixed hyperlipidemia (principal); R06.09 Other forms of dyspnea; I10 Essential (primary) hypertension; R00.2 Palpitations; I73.9 Peripheral vascular disease, unspecified; R07.9 Chest pain, unspecified | CPT/HCPCS: 93225; 93226 ==

== ENCOUNTER → 2017-02-10 | Outpatient (CLI) | payer BC, OTHER ==
[~2017-02-10] VITALS: Ht 154.9 cm; Wt 99.8 kg
[~2017-02-10] MED LIST changes: +CATHETER FLUSH 10 ML SYR IV PRN; +REGADENOSON 0.4 MG/5 ML SYR (LEXISCAN) IV ONE
[2017-02-10 09:15] VITALS: BP 131/81
--- NOTE | 2017-02-11 08:06 | STRESS TEST ---
DATE OF SERVICE: 02/10/2017 PROCEDURE: Resting and post regadenoson technetium-99m Tetrofosmin SPECT CT imaging. ORDERING PHYSICIAN: Coleen Cullen APRN. PRIMARY PHYSICIAN: Dr. Preciado. OTHER PHYSICIAN: Dr. Villalpando. CLINICAL DIAGNOSES: Chest pain, shortness of breath. DESCRIPTION: Baseline images were carried out after injection of 10.66 mCi of technetium-99m Tetrofosmin. This was followed by 0.4 mg regadenoson and 28.8 mCi of technetium-99m Tetrofosmin for stress imaging. The electrocardiogram showed sinus rhythm at baseline and it did not change significantly with the regadenoson infusion. The patient tolerated the procedure well. Review of images at rest and following stress does not indicate any significant perfusion defects consistent with significant myocardial ischemia or infarction. Gated images show normal global left ventricular systolic function with normal regional wall motion. Left ventricular ejection fraction is calculated to be 77%. Left ventricular end diastolic volume is 31 mL. TID is absent (0.99). CONCLUSIONS: 1. No evidence of any significant myocardial ischemia or infarction on this study. 2. Normal regional wall motion. 3. Normal global left ventricular systolic function with a calculated ejection fraction of 77%. Job ID: [id number] DocumentID: [id number] Dictated Date: 02/10/2017 16:57:27 Heating And Ventilating Drafter Date: 02/11/2017 02:00:31 Dictated By: KALYANI VILLALPANDO MD, MA, FACP, FACC,
== END ==
LOC: CARD 07:30
PROVIDERS: ATTEND Nurse Practitioner Family
DX: R07.9 Chest pain, unspecified (principal); R06.09 Other forms of dyspnea; I10 Essential (primary) hypertension; E78.2 Mixed hyperlipidemia; R00.2 Palpitations; I73.9 Peripheral vascular disease, unspecified
CPT/HCPCS: 78452; 93017

== ENCOUNTER 2017-09-30 17:06 | Inpatient (IN) | payer BC ==
[~2017-09-30] VITALS: Ht 154.9 cm; Wt 97.6 kg
[~2017-09-30 17:06] MED LIST changes: -CATHETER FLUSH 10 ML SYR IV PRN; -REGADENOSON 0.4 MG/5 ML SYR (LEXISCAN) IV ONE
--- OUTSIDE RECORDS SUMMARY | 2017-09-30 17:14 | XMS REPORT ---
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 [facility] [place] [facility] [address] [id number] [place] [address] 9948 September, [facility] [place] [facility] [address] [id number] [place] [address] 8633 September, [facility] [place] [facility] [address] [id number] [place] [address] 1246 Apr, [facility] [place] [facility] [address] [id number] [place] [address] Apr, [facility] [place] [facility] [address] [facility] [id number] [place] [address] Mar, [facility] [place] [address] [facility] [address] [id number] [place] [address] Mar, [facility] [place] [address] [facility] [address] [id number] [place] [address] Mar, [facility] [place] [address] [facility] [id number] [place] [address] Mar, [facility] [place] [address] [facility] [address] [id number] [place] [address]- [address] Mar, [facility] [place] [address] [facility] [id number] [place] [address] Feb, [facility] [place] [address] [place] [address] Feb, [facility] [place] [id number] [place] [address] Feb, [facility] [place] [address] [place] [address]- [address] Jan, [facility] [place] [id number] [place] [address] Jun, [facility] [place] [address] [place] [address] Mar, [facility] [place] [address] [place] [address]- 134[address] Oct, [facility] [place] [address] [place] [address]- [address] Oct, [facility] [place] [address] [place] [address] September, IMMUNIZATIONS No Known Immunizations SOCIAL HISTORY Never Assessed REASON FOR VISIT Med per Lab/Lab Order PLAN OF CARE VITAL SIGNS MEDICATIONS Medication Instructions Dosage Frequency Start Date End Date Duration Status Zocor 40 mg Orally Once a day 1 tablet in the evening 24h Dec, Active RESULTS No Results PROCEDURES No Known procedures INSTRUCTIONS MEDICATIONS ADMINISTERED No Known Medications MEDICAL (GENERAL) HISTORY Type Description Date Medical History hypertension Medical History asthma Medical History Arthritis Medical History bulging disc(s) Medical History back pain Medical History headache Medical History sleep disturbance Medical History H/O esophagogastroduodenoscopy Surgical History Right knee Surgical History gall bladder removal Surgical History appendectomy Surgical History tubal ligation Surgical History colonoscopy Surgical History Scope for hernia Hospitalization History Surgery
--- OUTSIDE RECORDS SUMMARY | 2017-09-30 17:16 | XMS REPORT ---
Author Author CATHERINE PERALES [facility] Address [address] [place] [address] Care Team Providers Care Home Appliance Technician Name Role Phone CATHERINE PERALES Unavailable PROBLEMS Type Condition ICD9-CM Code [id number] Code Onset Dates Condition Status SNOMED Code Problem Essential hypertension I10 Active 78860664 Problem History of colon polyps Z86.010 Active 647412982 Problem Insomnia, unspecified type G47.00 Active 813458209 Problem Mixed hyperlipidemia E78.2 Active 500548573 Problem Bilateral claudication of lower limb I73.9 Active 891865078 Problem Chronic superficial gastritis without bleeding K29.30 Active 242682415 Problem Angina at rest I20.8 Active 19307275 Problem Abnormal swallowing R13.10 Active 29454516 Problem Restless legs G25.81 Active 25297137 Problem Abnormal PFT R94.2 Active 665876490 Problem GERD with esophagitis K21.0 Active 161919033 Problem Hypercholesterolemia E78.00 Active 14802034 Problem Edema, unspecified type R60.9 Active 321873266 Problem Weight gain R63.5 Active 4743033 Problem Anxiety F41.9 Active 86982298 Problem Psoriasis vulgaris L40.0 Active 724855012 Problem Uncomplicated asthma, unspecified asthma severity J45.909 Active 210268225 Problem Arthritis M19.90 Active 7722770 ALLERGIES Substance Reaction Event Type Date Status Latex Gloves rash Drug Allergy September, Active Band-Aid rash Drug Allergy September, Active Novocain rash Drug Allergy September, Active Methotrexate Elevates LFT Drug Allergy September, Active SOCIAL HISTORY Never Assessed PLAN OF CARE VITAL SIGNS Height 62.1 in 2016-09-17 Weight 220.4 lbs 2016-09-17 Temperature 97.8 degrees Fahrenheit 2016-09-17 Heart Rate 92 bpm 2016-09-17 Respiratory Rate 22 2016-09-17 BMI 40.18 kg/m2 2016-09-17 Blood pressure systolic 168 mmHg 2016-09-17 Blood pressure diastolic 110 mmHg 2016-09-17 MEDICATIONS Medication Instructions Dosage Frequency Start Date End Date Duration Status [place] 7.5-325 MG Orally every 6 hrs 1 tablet as needed 6h September, Active Trazodone HCl 100 MG Orally Once a day 1 tablet at bedtime as needed 24h 30 Active Stelara 45 MG/0.5ML Active Proventil HFA 108 (90 Base) MCG/ACT INHALE TWO PUFFS BY MOUTH FOUR TIMES DAILY 25 Active Propranolol HCl 20 mg Orally twice a day 1 tablet 12h 30 Active Zyrtec Allergy 10 MG Orally Once a day 1 tablet 24h September, Oct, 30 day(s) Active Fluticasone Propionate 50 MCG/ACT Nasally Once a day 1 spray in each nostril 24h September, 30 day(s) Active Meclizine HCl 25 MG Orally 4 times a day 1 tablet as needed 6h Mar, Active Folic Acid 1 MG Orally Once a day 1 tablet 24h 30 Active Effexor XR 150 MG Orally Once a day 1 capsule with food 24h 30 Active Lisinopril 40 MG Orally Once a day 1 tablet 24h 30 days Active Albuterol Sulfate (2.5 MG/3ML) 0.083% Inhalation Three times a day prn 3 ml 07 days Active Augmentin 875-125 MG Orally every 12 hrs 1 tablet 12h September,September 10 day(s) Active Omeprazole 40 MG TAKE ONE CAPSULE BY MOUTH TWICE DAILY 30 Active RESULTS No Results PROCEDURES No Known procedures IMMUNIZATIONS No Known Immunizations MEDICAL (GENERAL) HISTORY Type Description Date Medical [...]
--- OUTSIDE RECORDS SUMMARY | 2017-09-30 17:16 | XMS REPORT ---
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 [facility] [address] [id number] [place] [address]- 9751 14 Mar, 2011 [facility] [address] [id number] [place] [address]- 1653 14 Mar, 2011 [facility] [address] [facility] [id number] [place] [address] 88[address] Mar, [facility] [place] [facility] [address] [id number] [place] [address]- [address] 17 Feb, 2011 [facility] [address] [id number] [place] [address]- 2284 17 Feb, 2011 [facility] [place] [facility] [address] [id number] [place] [address]- 3216 10 Feb, 2011 [facility] [place] [facility] [address] [id number] [place] [address]- 8490 10 Feb, 2011 [facility] [place] [facility] [address] [id number] [place] [address]- 9834 September, [facility] [place] [facility] [address] [id number] [place] [address]- 8700 13 Sep, 2010 [facility] [place] [facility] [address] [id number] [place] [address]- 2385 Apr, [facility] [place] [facility] [address] [id number] [place] [address] Apr, [facility] [place] [facility] [address] [id number] [place] [address]- 0546 Mar, [facility] [place] [facility] [address] [id number] [place] [address]- 5876 Mar, [facility] [place] [facility] [address] [id number] [place] [address]- 7024 Mar, [facility] [place] [facility] [address] [facility] [id number] [place] [address]- 379[address] Mar, [facility] [place] [facility] [address] [id number], [place] [address]- 73[address] Mar, [facility] [place] [facility] [address] [id number] [place] [address]- 8028 Feb, [facility] [place] [facility] [address] [id number], [place] [address]- 2567 Feb, [facility] [place] [facility] [address] [facility] [id number], [place] [address] 25[address] Feb, [facility] [place] [facility] [address] [id number], [place] [address]- [address] Jan, [facility] [place] [facility] [address] [id number], [place] [address]- [address]498 Jun, [facility] [place] [facility] [address] [id number], [place] [address]- 8796 Mar, [facility] [place] [facility] [address] [id number], [place] [address]- 95[address] Oct, [facility] [place] [facility] [address] [id number], [place] [address]- 2546 Oct, [facility] [address] [facility] [address] [id number] [place] [address] September, IMMUNIZATIONS No Known Immunizations SOCIAL HISTORY Never Assessed REASON FOR VISIT Malignant hypertension Angina at rest PLAN OF CARE Activity Details Follow Up 2 Months Reason: VITAL SIGNS Height 62.1 in 2017-01-14 Weight 230 lbs 2017-01-14 Heart Rate 72 bpm 2017-01-14 Oximetry 97 % 2017-01-14 BMI 41.93 kg/m2 2017-01-14 Blood pressure systolic 122 mmHg 2017-01-14 Blood pressure diastolic 80 mmHg 2017-01-14 MEDICATIONS Medication Instructions Dosage Frequency Start Date End Date Duration Status Fluticasone Propionate 50 MCG/ACT Nasally Once a day 1 spray in each nostril 24h September, 30 day(s) Active Neurontin 100 MG Orally Three times a day 1 capsule 8h Nov, 30 days Active Lisinopril 40 mg Orally Once a day 1 tablet 24h 30 days Active Spiriva HandiHaler 18 MCG Inhalation Once a day 1 capsule 24h Active Albuterol Sulfate (2.5 MG/3ML) 0.083% Inhalation Three times a day prn 3 ml 07 days Active Propranolol HCl 20 mg Orally twice a day 1 tablet 12h 30 days Active Norvasc 10 mg Orally Once a day 1 tablet 24h Nov, 30 day(s) Active Trazodone HCl 100 mg Orally Once a day 1 tablet at bedtime as needed 24h 30 days Active Effexor XR 150 MG Orally Once a day 1 capsule with food 24h 30 days Active Zyrtec Allergy 10 mg Orally Once a day 1 tablet 24h September, Mar, 30 days Active Omeprazole 40 mg Orally 2 times a day 1 capsule 12h 30 days Active Folic Acid 1 MG Orally Once a day 1 tablet 24h Mar, 30 days Active Proventil HFA 108 (90 Base) MCG/ACT INHALE TWO PUFFS BY MOUTH FOUR TIMES DAILY 25 Active Nystatin 050064 UNIT/GM Externally Twice a day 1 application to affected area 12h Dec, Active Symbicort 160-4.5 MCG/ACT Inhalation Twice a day 1 puff 12h Active Meclizine HCl 25 MG Orally 4 times a day 1 tablet as needed 6h Mar, Active Zocor 40 mg Orally Once a day 1 tablet in the evening 24h Dec, Active Stelara 45 MG/0.5ML Subcutaneous q12 weeks Active Magnesium 400 mg Orally 2 times a day 1 12h 16 Dec, 2016 Feb, 30 days Active RESULTS Name Result Date Reference Range EULA 2017-01-20 Lexiscan Stress Nuclear Test 2017-02-10 PROCEDURES Procedure Date Ordered Result Body Site HOLTER MONITOR (OUTPATIENT) 2017-01-14 N/A MEASURE BLOOD OXYGEN LEVEL Jan 14, 2017 INSTRUCTIONS MEDICATIONS ADMINISTERED No Known Medications MEDICAL [...]
--- OUTSIDE RECORDS SUMMARY | 2017-09-30 17:17 | XMS REPORT ---
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 [address] [id number] [place] [address]- [address] 10 Feb, 2011 [facility] [place] [facility] [address] [id number] [place] [address]- 9312 September, [facility] [place] [facility] [address] [id number] [place] [address]- 2593 September, [facility] [place] [facility] [address] [id number] [place] [address]- 6725 Apr, [facility] [place] [facility] [address] [id number] [place] [address] Apr, [facility] [place] [facility] [id number] [address] Mar, [facility] [id number] [address] [address] Mar, [facility] [address] [facility] [id number], [place] [address] Mar, [facility] [id number] [place] [address] 1986 Mar, [facility] [address] [facility] [id number] [address] Mar, [facility] [id number] [place] [address]- [address] Feb, [facility] [id number] [address] Feb, [facility] [id number] [place] [address] Feb, [facility] [id number], [place] [address] Jan, [facility] [id number] [address] Jun, [facility] [id number] [address] Mar, [facility] [id number], [place] [address] Oct, [facility] [address] [id number] [address] Oct, [facility] [id number], [place] [address] September, IMMUNIZATIONS No Known Immunizations SOCIAL HISTORY Never Assessed REASON FOR VISIT PLAN OF CARE VITAL SIGNS MEDICATIONS Medication Instructions Dosage Frequency Start Date End Date Duration Status Zyrtec Allergy 10 mg Orally Once a day 1 tablet 24h September, Mar, 30 days Active Propranolol HCl 20 mg Orally twice a day 1 tablet 12h 30 days Active Trazodone HCl 100 mg Orally Once a day 1 tablet at bedtime as needed 24h 30 days Active Omeprazole 40 mg Orally 2 times a day 1 capsule 12h 30 days Active Folic Acid 1 MG Orally Once a day 1 tablet 24h Mar, 30 days Active Lisinopril 40 mg Orally Once a day 1 tablet 24h 30 days Active Effexor XR 150 MG Orally Once a day 1 capsule with food 24h 30 days Active RESULTS No Results PROCEDURES No Known [...]
--- OUTSIDE RECORDS SUMMARY | 2017-09-30 17:18 | XMS REPORT ---
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 [id number] [place] [address]- [address]236 Mar, [facility] [address] [id number] [place] [address]- 8250 Mar, [facility] [address] [id number][place] [address] Feb, [facility] [address] [id number][place] [address] Feb, [facility] [address] [id number], [place] [address] Feb, [facility] [address] [id number] [place] [address]- 3792 Feb, [facility] [address] [id number][place] [address] September, [facility] [address] [id number], [place] [address] September, [facility] [address] [id number], [place] [address] 13 Apr, 2010 [facility] [address] [facility] [id number], [place] [address] 13 Apr, 2010 [facility] [address] [facility] [id number][place] [address] Mar, [facility] [address] [facility] [id number], [place] [address] 29 Mar, 2010 [facility] [address] [facility] [id number][place] [address] 23 Mar, 2010 [facility] [address] [facility] [id number], [place] [address] 16 Mar, 2010 [facility] [address] [facility] [id number][place] [address] 16 Mar, 2010 [facility] [address] [id number], [place] [address] Feb, [facility] [address] [facility] [id number][place] [address] 1006 Feb, [facility] [address] [id number], [place] [address] Feb, [facility] [address] [facility] [id number], [place] [address] Jan, [facility] [address] [facility] [id number][place] [address]- [address] 15 Jun, 2009 [facility] [address] [facility] [id number][place] [address]- 6668 Mar, [facility] [address] [facility] [id number][place] [address]- 0854 Oct, [facility] [address] [facility] [id number][place]30[place] [address] Oct, [facility] [address] [id number], [place] [address] September, IMMUNIZATIONS No Known Immunizations SOCIAL HISTORY Never Assessed REASON FOR VISIT Weight management, medication review, problems with breathing, reports has been worse lately. Wants lungs evaluated, reports productive cough clear phlegm. , Numbness and constant pain with cramping from hips to feet, reports restless and irritable. , Eye irritation, dry mostly, sometimes weeping with itching and "boogers", reports some vision change. , Need yeast medication for under breast and under panus. CBrumbackRN PLAN OF CARE Activity Details Follow Up 2 Weeks Reason:BP VITAL SIGNS Height 62.1 in 2016-12-01 Weight 226.5 lbs 2016-12-01 Temperature 98.3 degrees Fahrenheit 2016-12-01 Heart Rate 76 bpm 2016-12-01 Respiratory Rate 18 2016-12-01 BMI 41.29 kg/m2 2016-12-01 Blood pressure systolic 170 mmHg 2016-12-01 Blood pressure diastolic 108 mmHg 2016-12-01 MEDICATIONS Medication Instructions Dosage Frequency Start Date End Date Duration Status Norvasc 10 mg Orally Once a day 1 tablet 24h Nov, 30 day(s) Active Effexor XR 150 MG Orally Once a day 1 capsule with food 24h 19 Active Meclizine HCl 25 MG Orally 4 times a day 1 tablet as needed 6h Mar, Active Fluticasone Propionate 50 MCG/ACT Nasally Once a day 1 spray in each nostril 24h September, 30 day(s) Active Trazodone HCl 100 MG Orally Once a day 1 tablet at bedtime as needed 24h 19 Active Nystatin 425464 UNIT/GM Externally Twice a day 1 application to affected area 12h Dec, Active Symbicort 160-4.5 MCG/ACT Inhalation Twice a day 1 puff 12h Active Zyrtec Allergy 10 MG Orally Once a day 1 tablet 24h September, 30 days Active Folic Acid 1 MG Orally Once a day 1 tablet 24h 19 Active Lisinopril 40 MG Orally Once a day 1 tablet 24h 19 Active Proventil HFA 108 (90 Base) MCG/ACT INHALE TWO PUFFS BY MOUTH FOUR TIMES DAILY 25 Active Neurontin 100 MG Orally Three times a day 1 capsule 8h Nov, 30 days Active Propranolol HCl 20 mg Orally twice a day 1 tablet 12h 19 Active Albuterol Sulfate (2.5 MG/3ML) 0.083% Inhalation Three times a day prn 3 ml 07 days Active Omeprazole 40 MG Orally 2 times a day 1 capsule 12h 19 Active Stelara 45 MG/0.5ML Active Spiriva HandiHaler 18 MCG Inhalation Once a day 1 capsule 24h Active RESULTS No Results PROCEDURES Procedure Date Ordered Result Body Site EKG, TRACING (IN-HOUSE) 2016-12-01 Normal ELECTROCARDIOGRAM, TRACING December 01, 2016 VENIPUNCT, ROUTINE* December 01, 2016 COMPREHEN METABOLIC PANEL December 01, 2016 COMPLETE CBC W/AUTO DIFF WBC December 01, 2016 ASSAY THYROID STIM HORMONE December 01, 2016 LIPID PANEL December 01, 2016 INSTRUCTIONS MEDICATIONS ADMINISTERED No Known Medications MEDICAL [...]
--- OUTSIDE RECORDS SUMMARY | 2017-09-30 17:19 | XMS REPORT ---
Author Author TON LERMA Organization [facility] Address [address] [place] [address] Care Team Providers Care Canvas Baster Jumpbasting Name Role Phone TON LERMA Unavailable PROBLEMS Type Condition ICD9-CM Code MRT83-SP Code Onset Dates Condition Status SNOMED Code Problem Essential hypertension I10 Active 51764129 Problem History of colon polyps Z86.010 Active 371485949 Problem Insomnia, unspecified type G47.00 Active 503880286 Problem Mixed hyperlipidemia E78.2 Active 877685112 Problem Bilateral claudication of lower limb I73.9 Active 897401803 Problem Chronic superficial gastritis without bleeding K29.30 Active 775761986 Problem Angina at rest I20.8 Active 91400665 Problem Abnormal swallowing R13.10 Active 76385835 Problem Restless legs G25.81 Active 98977237 Problem Abnormal PFT R94.2 Active 694363154 Problem GERD with esophagitis K21.0 Active 300054874 Problem Hypercholesterolemia E78.00 Active 59855519 Problem Edema, unspecified type R60.9 Active 261164871 Problem Weight gain R63.5 Active 9054092 Problem Anxiety F41.9 Active 44170218 Problem Psoriasis vulgaris L40.0 Active 750889012 Problem Uncomplicated asthma, unspecified asthma severity J45.909 Active 940849379 Problem Arthritis M19.90 Active 5167901 ALLERGIES No Information SOCIAL HISTORY Never Assessed PLAN OF CARE VITAL SIGNS MEDICATIONS Medication Instructions Dosage Frequency Start Date End Date Duration Status Lisinopril 40 MG Orally Once a day 1 tablet 24h 30 days Active RESULTS No Results [...]
--- OUTSIDE RECORDS SUMMARY | 2017-09-30 17:19 | XMS REPORT ---
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 47[address] Apr, [facility] [place] [facility] [address] [id number] [place] [address] Apr, [facility] [place] [facility] [address] [facility] [id number], [place] [address] Mar, [facility] [id number], [place] [address] Mar, [facility] [address] [facility] [id number], [place] [address] Mar, [facility] [id number] [place] [address] Mar, [facility] [address] [facility] [id number], [place] [address] Mar, [facility] [id number] [place] [address] Feb, [facility] [id number], [place] [address] Feb, [facility] [id number], [place] [address] Feb, [facility] [id number], [place] [address] Jan, [facility] [id number], [place] [address] Jun, [facility] [id number], [place] [address] Mar, [facility] [id number], [place] [address] Oct, [facility] [address] [id number], [place] [address] Oct, [facility] [id number], [place] [address] September, IMMUNIZATIONS No Known Immunizations SOCIAL HISTORY Never Assessed REASON FOR VISIT questions about meds PLAN OF CARE VITAL SIGNS MEDICATIONS No Known Medications RESULTS No Results PROCEDURES No Known procedures [...]
--- OUTSIDE RECORDS SUMMARY | 2017-09-30 17:19 | XMS REPORT ---
Author Author TON LERMA Organization [facility] Address [address] [place] [address] Care Team Providers Care Rn Neurosurgical Name Role Phone TON LERMA Unavailable PROBLEMS Type Condition ICD9-CM Code [id number] Code Onset Dates Condition Status SNOMED Code Problem Essential hypertension I10 Active 92382158 Problem History of colon polyps Z86.010 Active 118580005 Problem Insomnia, unspecified type G47.00 Active 559760128 Problem Mixed hyperlipidemia E78.2 Active 702655748 Problem Bilateral claudication of lower limb I73.9 Active 943153162 Problem Chronic superficial gastritis without bleeding K29.30 Active 123703140 Problem Angina at rest I20.8 Active 44442240 Problem Abnormal swallowing R13.10 Active 56529557 Problem Restless legs G25.81 Active 98317639 Problem Abnormal PFT R94.2 Active 491078235 Problem GERD with esophagitis K21.0 Active 366473785 Problem Hypercholesterolemia E78.00 Active 28106305 Problem Edema, unspecified type R60.9 Active 403953380 Problem Weight gain R63.5 Active 7097288 Problem Anxiety F41.9 Active 10537758 Problem Psoriasis vulgaris L40.0 Active 398327205 Problem Uncomplicated asthma, unspecified asthma severity J45.909 Active 184483248 Problem Arthritis M19.90 Active 6772947 ALLERGIES No Information SOCIAL HISTORY Never Assessed PLAN OF CARE VITAL SIGNS MEDICATIONS Unknown Medications RESULTS No Results PROCEDURES No Known [...]
--- OUTSIDE RECORDS SUMMARY | 2017-09-30 17:19 | XMS REPORT ---
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 Name Role Phone ADDISON BAKER Unavailable PROBLEMS Type Condition ICD9-CM Code [id number] Code Onset Dates Condition Status SNOMED Code Problem Essential hypertension I10 Active 87391987 Problem History of colon polyps Z86.010 Active 960744342 Problem Insomnia, unspecified type G47.00 Active 638687959 Problem Mixed hyperlipidemia E78.2 Active 052426508 Problem Bilateral claudication of lower limb I73.9 Active 885426854 Problem Chronic superficial gastritis without bleeding K29.30 Active 593200552 Problem Angina at rest I20.8 Active 08207436 Problem Abnormal swallowing R13.10 Active 94385225 Problem Restless legs G25.81 Active 54903521 Problem Abnormal PFT R94.2 Active 801250435 Problem GERD with esophagitis K21.0 Active 825371128 Problem Hypercholesterolemia E78.00 Active 40748690 Problem Edema, unspecified type R60.9 Active 174054403 Problem Weight gain R63.5 Active 5238158 Problem Anxiety F41.9 Active 07851343 Problem Psoriasis vulgaris L40.0 Active 236449501 Problem Uncomplicated asthma, unspecified asthma severity J45.909 Active 414798464 Problem Arthritis M19.90 Active 0769630 ALLERGIES Substance Reaction Event Type Date Status Latex Gloves rash Drug Allergy September, Active Band-Aid rash Drug Allergy September, Active Novocain rash Drug Allergy September, Active Methotrexate Elevates LFT Drug Allergy September, Active SOCIAL HISTORY Never Assessed PLAN OF CARE Activity Details Follow Up prn Reason: VITAL SIGNS Height 62.1 in 2016-09-15 Weight 216 lbs 2016-09-15 Temperature 98.7 degrees Fahrenheit 2016-09-15 Heart Rate 88 bpm 2016-09-15 Respiratory Rate 18 2016-09-15 BMI 39.38 kg/m2 2016-09-15 Blood pressure systolic 132 mmHg 2016-09-15 Blood pressure diastolic 88 mmHg 2016-09-15 MEDICATIONS Medication Instructions Dosage Frequency Start Date End Date Duration Status Folic Acid 1 MG Orally Once a day 1 tablet 24h 30 Active Proventil HFA 108 (90 Base) MCG/ACT INHALE TWO PUFFS BY MOUTH FOUR TIMES DAILY 25 Active Stelara 45 MG/0.5ML Active Effexor XR 150 MG Orally Once a day 1 capsule with food 24h 30 Active Augmentin 875-125 MG Orally every 12 hrs 1 tablet 12h September,September 10 day(s) Active Fluticasone Propionate 50 MCG/ACT Nasally Once a day 1 spray in each nostril 24h September, 30 day(s) Active Meclizine HCl 25 MG Orally 4 times a day 1 tablet as needed 6h Mar, Active Trazodone HCl 100 MG Orally Once a day 1 tablet at bedtime as needed 24h 30 Active Propranolol HCl 20 mg Orally twice a day 1 tablet 12h 30 Active Lisinopril 40 MG Orally Once a day 1 tablet 24h 30 days Active Albuterol Sulfate (2.5 MG/3ML) 0.083% Inhalation Three times a day prn 3 ml 07 days Active Zyrtec Allergy 10 MG Orally Once a day 1 tablet 24h September, Oct, 30 day(s) Active Omeprazole 40 MG TAKE ONE CAPSULE BY MOUTH TWICE DAILY 30 Active RESULTS Name Result Date Reference Range STREP A (IN HOUSE) 2016-09-15 STREP A Negative Control + Lot # [id number] Exp date 02/06/18 PROCEDURES Procedure Date Ordered Result Body Site STREP A ASSAY W/OPTIC September 15, 2016 IMMUNIZATIONS No Known Immunizations MEDICAL (GENERAL) HISTORY [...]
--- OUTSIDE RECORDS SUMMARY | 2017-09-30 17:20 | XMS REPORT ---
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 [address] [id number] [place] [address]- 5482 September, [facility] [place] [facility] [address] [id number] [place] [address]- 8469 Apr, [facility] [place] [facility] [address] [id number] [place] [address] Apr, [facility] [place] [facility] [address] [facility] [facility] [id number], [place] [address] Mar, [facility] [address] [address] [facility] [id number][place] [address] Mar, [facility] [address] [facility] [address] [facility] [id number], [place] [address] Mar, [facility] [address] [facility] [id number] [place] [address]- 5[address] Mar, [facility] [address] [address] [facility] [id number] [address] Mar, [facility] [id number] [place] [address]- 1139 Feb, [facility] [id number] [address] Feb, [facility] [id number], [place] [address] Feb, [facility] [id number], [place] [address] Jan, [facility] [id number], [place] [address] 9707 Jun, [facility] [id number], [place] [address] 39[address] Mar, [facility] [id number], [place] [address]111 Oct, [facility] [address] [id number] [address] Oct, [facility] [id number], [place] [address] September, IMMUNIZATIONS No Known Immunizations SOCIAL HISTORY Never Assessed REASON FOR VISIT refill request PLAN OF CARE VITAL SIGNS MEDICATIONS Medication Instructions Dosage Frequency Start Date End Date Duration Status Omeprazole 40 MG Orally 2 times a day 1 capsule 12h 19 Active Folic Acid 1 MG Orally Once a day 1 tablet 24h 19 Active Effexor XR 150 MG Orally Once a day 1 capsule with food 24h 19 Active Lisinopril 40 MG Orally Once a day 1 tablet 24h 19 Active Trazodone HCl 100 MG Orally Once a day 1 tablet at bedtime as needed 24h 19 Active Zyrtec Allergy 10 mg Orally Once a day 1 tablet 24h September, Dec, 30 days Active Propranolol HCl 20 mg Orally twice a day 1 tablet 12h 19 Active RESULTS No Results PROCEDURES No Known [...]
--- OUTSIDE RECORDS SUMMARY | 2017-09-30 17:26 | XMS REPORT | Continuity of Care Document ---
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 Problems Date Dx Coded Attending Type Code Diagnosis Diagnosed By 11/10/2007 JEWELS ROMANO DO 723.1 PAIN NECK 11/10/2007 JEWELS ROMANO DO 724.2 PAIN LOW BACK 11/10/2007 723.1 PAIN NECK 11/10/2007 724.2 PAIN LOW BACK 11/10/2007 723.1 PAIN NECK 11/10/2007 724.2 PAIN LOW BACK 11/10/2007 TON LERMA APRN S 723.1 Pain Neck 11/10/2007 TON LERMA APRN S 724.2 PAIN LOW BACK 11/10/2007 MARJORIE STRONG APRN 723.1 Pain Neck 11/10/2007 MARJORIE STRONG APRN 724.2 PAIN LOW BACK 11/10/2007 723.1 Pain Neck 11/10/2007 724.2 PAIN LOW BACK 11/10/2007 723.1 Pain Neck 11/10/2007 724.2 PAIN LOW BACK 11/10/2007 723.1 Pain Neck 11/10/2007 724.2 PAIN LOW BACK 11/10/2007 TON LERMA APRN S 723.1 Pain Neck 11/10/2007 TON LERMA APRN S 724.2 PAIN LOW BACK 11/10/2007 MARIA GUADALUPE PROJECT LANDSCAPE ARCHITECT, TON S 723.1 Pain Neck 11/10/2007 MARIA GUADALUPE PROJECT LANDSCAPE ARCHITECT, TON S 724.2 PAIN LOW BACK 11/10/2007 ISAIAS VALENZUELA MD 723.1 Pain Neck 11/10/2007 ISAIAS VALENZUELA MD 724.2 PAIN LOW BACK 11/10/2007 MARIA GUADALUPE PROJECT LANDSCAPE ARCHITECT, TON S 723.1 Pain Neck 11/10/2007 MARIA GUADALUPE PROJECT LANDSCAPE ARCHITECT, TON S 724.2 PAIN LOW BACK 11/10/2007 MARIA GUADALUPE PROJECT LANDSCAPE ARCHITECT, TON S 723.1 Pain Neck 11/10/2007 MARIA GUADALUPE PROJECT LANDSCAPE ARCHITECT, TON S 724.2 PAIN LOW BACK 11/10/2007 MARIA GUADALUPE PROJECT LANDSCAPE ARCHITECT, TON S 723.1 Pain Neck 11/10/2007 MARIA GUADALUPE PROJECT LANDSCAPE ARCHITECT, TON S 724.2 PAIN LOW BACK 11/10/2007 MARIA GUADALUPE PROJECT LANDSCAPE ARCHITECT, TON S 723.1 Pain Neck 11/10/2007 MARIA GUADALUPE PROJECT LANDSCAPE ARCHITECT, TON S 724.2 PAIN LOW BACK 11/10/2007 MARIA GUADALUPE PROJECT LANDSCAPE ARCHITECT, TON S 723.1 Pain Neck 11/10/2007 MARIA GUADALUPE PROJECT LANDSCAPE ARCHITECT, TON S 724.2 PAIN LOW BACK 11/10/2007 DIAZ PROJECT LANDSCAPE ARCHITECT, CATHERINE T 723.1 Pain Neck 11/10/2007 DIAZ PROJECT LANDSCAPE ARCHITECT, CATHERINE T 724.2 PAIN LOW BACK 11/10/2007 MARIA GUADALUPE PROJECT LANDSCAPE ARCHITECT, TON S 723.1 Pain Neck 11/10/2007 MARIA GUADALUPE PROJECT LANDSCAPE ARCHITECT, TON S 724.2 PAIN LOW BACK 11/10/2007 MARIA GUADALUPE PROJECT LANDSCAPE ARCHITECT, TON S 723.1 Pain Neck 11/10/2007 MARIA GUADALUPE PROJECT LANDSCAPE ARCHITECT, TON S 724.2 PAIN LOW BACK 11/10/2007 MARIA GUADALUPE PROJECT LANDSCAPE ARCHITECT, TON S 723.1 Pain Neck 11/10/2007 MARIA GUADALUPE PROJECT LANDSCAPE ARCHITECT, TON S 724.2 PAIN LOW BACK 11/10/2007 MARIA GUADALUPE PROJECT LANDSCAPE ARCHITECT, TON S 723.1 Pain Neck 11/10/2007 MARIA GUADALUPE PROJECT LANDSCAPE ARCHITECT, TON S 724.2 PAIN LOW BACK 11/10/2007 MCCLEEARY PSYD, GERONIMO L 723.1 Pain Neck 11/10/2007 NATASHA PERALES, GERONIMO L 724.2 PAIN LOW BACK 11/10/2007 SACHA ROMANO DOA K 723.1 Pain Neck 11/10/2007 ROMANO DO, JEWELS K 724.2 PAIN LOW BACK 11/10/2007 NATASHA PERALES, GERONIMO L 723.1 Pain Neck 11/10/2007 NATASHA PERALES, GERONIMO L 724.2 PAIN LOW BACK 11/10/2007 POST PROJECT LANDSCAPE ARCHITECT, SYMONE D 723.1 Pain Neck 11/10/2007 POST PROJECT LANDSCAPE ARCHITECT, SYMONE D 724.2 PAIN LOW BACK 11/10/2007 RICHARD PROJECT LANDSCAPE ARCHITECT, JEWELS 723.1 Pain Neck 11/10/2007 RICHARD PROJECT LANDSCAPE ARCHITECT, JEWELS 724.2 PAIN LOW BACK 11/10/2007 RICHARD PROJECT LANDSCAPE ARCHITECT, JEWELS 723.1 Pain Neck 11/10/2007 RICHARD PROJECT LANDSCAPE ARCHITECT, JEWELS 724.2 PAIN LOW BACK 11/10/2007 RICHARD PROJECT LANDSCAPE ARCHITECT, JEWELS 723.1 Pain Neck 11/10/2007 RICHARD PROJECT LANDSCAPE ARCHITECT, JEWELS 724.2 PAIN LOW BACK 11/11/2007 ROMANO DO, JEWELS K 847.0 SPRAIN/STRAIN NECK 11/11/2007 847.0 SPRAIN/STRAIN NECK 11/11/2007 847.0 SPRAIN/STRAIN NECK 11/11/2007 TON LERMA APRN S 847.0 Sprain/strain Neck 11/11/2007 MARJORIE STRONG APRN 847.0 Sprain/strain Neck 11/11/2007 847.0 Sprain/strain Neck 11/11/2007 847.0 Sprain/strain Neck 11/11/2007 847.0 Sprain/strain Neck 11/11/2007 TON LERMA APRN S 847.0 Sprain/strain Neck 11/11/2007 TON LERMA APRN S 847.0 Sprain/strain Neck 11/11/2007 ISAIAS VALENZUELA MD 847.0 Sprain/strain Neck 11/11/2007 TON LERMA APRN S 847.0 Sprain/strain Neck 11/11/2007 MARIA GUADALUPE PROJECT LANDSCAPE ARCHITECT, TON S 847.0 Sprain/strain Neck 11/11/2007 MARIA GUADALUPE PROJECT LANDSCAPE ARCHITECT, TON S 847.0 Sprain/strain Neck 11/11/2007 MARIA GUADALUPE PROJECT LANDSCAPE ARCHITECT, TON S 847.0 Sprain/strain Neck 11/11/2007 MARIA GUADALUPE PROJECT LANDSCAPE ARCHITECT, TON S 847.0 Sprain/strain Neck 11/11/2007 CATHERINE PERALES APRN 847.0 Sprain/strain Neck 11/11/2007 MARIA GUADALUPE PROJECT LANDSCAPE ARCHITECT, TON S 847.0 Sprain/strain Neck 11/11/2007 MARIA GUADALUPE PROJECT LANDSCAPE ARCHITECT, TON S 847.0 Sprain/strain Neck 11/11/2007 MARIA GUADALUPE PROJECT LANDSCAPE ARCHITECT, TON S 847.0 Sprain/strain Neck 11/11/2007 MARIA GUADALUPE PROJECT LANDSCAPE ARCHITECT, TON S 847.0 Sprain/strain Neck 11/11/2007 VELASQUEZ KAUR PSYD ANN L 847.0 Sprain/strain Neck 11/11/2007 JEWELS ROMANO DO K 847.0 Sprain/strain Neck 11/11/2007 VELASQUEZ KAUR PSYD ANN L 847.0 Sprain/strain Neck 11/11/2007 SEJAL PROJECT LANDSCAPE ARCHITECTSYMONE Ramos D 847.0 Sprain/strain Neck 11/11/2007 RICHARD PROJECT LANDSCAPE ARCHITECT, JEWELS 847.0 Sprain/strain Neck 11/11/2007 RICHARD PROJECT LANDSCAPE ARCHITECT, JEWELS 847.0 Sprain/strain Neck 11/11/2007 RICHARD PROJECT LANDSCAPE ARCHITECT, JEWELS 847.0 Sprain/strain Neck 12/09/2007 JEWELS ROMANO DO 739.3 NONALLOPATHIC LESIONS OF LUMBAR REGION NOT ELSEWHERE CLASSIFIED 12/09/2007 JEWELS ROMANO DO 739.4 NONALLOPATHIC LESIONS OF SACRAL REGION NOT ELSEWHERE CLASSIFIED 12/09/2007 739.3 NONALLOPATHIC LESIONS OF LUMBAR REGION NOT ELSEWHERE CLASSIFIED 12/09/2007 739.4 NONALLOPATHIC LESIONS OF SACRAL REGION NOT ELSEWHERE CLASSIFIED 12/09/2007 739.3 NONALLOPATHIC LESIONS OF LUMBAR REGION NOT ELSEWHERE CLASSIFIED 12/09/2007 739.4 NONALLOPATHIC LESIONS OF SACRAL REGION NOT ELSEWHERE CLASSIFIED 12/09/2007 MARIA GUADALUPE VAUGHN, TON S 739.3 Nonallopathic Lesions Of Lumbar Region Not Elsewhere Classified 12/09/2007 MARIA GUADALUPE VAUGHN, TON S 739.4 Nonallopathic Lesions Of Sacral Region Not Elsewhere Classified 12/09/2007 MARJORIE STRONG APRN 739.3 Nonallopathic Lesions Of Lumbar Region Not Elsewhere Classified 12/09/2007 MARJORIE STRONG APRN 739.4 Nonallopathic Lesions Of Sacral Region Not Elsewhere Classified 12/09/2007 739.3 Nonallopathic Lesions Of Lumbar Region Not Elsewhere Classified 12/09/2007 739.4 Nonallopathic Lesions Of Sacral Region Not Elsewhere Classified 12/09/2007 739.3 Nonallopathic Lesions Of Lumbar Region Not Elsewhere Classified 12/09/2007 739.4 Nonallopathic Lesions Of Sacral Region Not Elsewhere Classified 12/09/2007 739.3 Nonallopathic Lesions Of Lumbar Region Not Elsewhere Classified 12/09/2007 739.4 Nonallopathic Lesions Of Sacral Region Not Elsewhere Classified 12/09/2007 MARIA GUADALUPE VAUGHN, TON S 739.3 Nonallopathic Lesions Of Lumbar Region Not Elsewhere Classified 12/09/2007 MARIA GUADALUPE VAUGHN, TON S 739.4 Nonallopathic Lesions Of Sacral Region Not Elsewhere Classified 12/09/2007 MARIA GUADALUPE VAUGHN, TON S 739.3 Nonallopathic Lesions Of Lumbar Region Not Elsewhere Classified 12/09/2007 MARIA GUADALUPE VAUGHN, TON S 739.4 Nonallopathic Lesions Of Sacral Region Not Elsewhere Classified 12/09/2007 ISAIAS VALENZUELA MD 739.3 Nonallopathic Lesions Of Lumbar Region Not Elsewhere Classified 12/09/2007 ISAIAS VALENZUELA MD 739.4 Nonallopathic Lesions Of Sacral Region Not Elsewhere Classified 12/09/2007 MARIA GUADALUPE VAUGHN, TON S 739.3 Nonallopathic Lesions Of Lumbar Region Not Elsewhere Classified 12/09/2007 MARIA GUADALUPE VAUGHN, TON S 739.4 Nonallopathic Lesions Of Sacral Region Not Elsewhere Classified 12/09/2007 MARIA GUADALUPE PROJECT LANDSCAPE ARCHITECT, TON S 739.3 Nonallopathic Lesions Of Lumbar Region Not Elsewhere Classified 12/09/2007 MARIA GUADALUPE PROJECT LANDSCAPE ARCHITECT, TON S 739.4 Nonallopathic Lesions Of Sacral Region Not Elsewhere Classified 12/09/2007 MARIA GUADALUPE VAUGHN, TON S 739.3 Nonallopathic Lesions Of Lumbar Region Not Elsewhere Classified 12/09/2007 MARIA GUADALUPE PROJECT LANDSCAPE ARCHITECT, TON S 739.4 Nonallopathic Lesions Of Sacral Region Not Elsewhere Classified 12/09/2007 MARIA GUADALUPE PROJECT LANDSCAPE ARCHITECT, TON S 739.3 Nonallopathic Lesions Of Lumbar Region Not Elsewhere Classified 12/09/2007 MARIA GUADALUPE PROJECT LANDSCAPE ARCHITECT, TON S 739.4 Nonallopathic Lesions Of Sacral Region Not Elsewhere Classified 12/09/2007 MARIA GUADALUPE PROJECT LANDSCAPE ARCHITECT, TON S 739.3 Nonallopathic Lesions Of Lumbar Region Not Elsewhere Classified 12/09/2007 MARIA GUADALUPE PROJECT LANDSCAPE ARCHITECT, TON S 739.4 Nonallopathic Lesions Of Sacral Region Not Elsewhere Classified 12/09/2007 CATHERINE PERALES APRN 739.3 Nonallopathic Lesions Of Lumbar Region Not Elsewhere Classified 12/09/2007 CATHERINE PERALES APRN 739.4 Nonallopathic Lesions Of Sacral Region Not Elsewhere Classified 12/09/2007 MARIA GUADALUPE PROJECT LANDSCAPE ARCHITECT, TON S 739.3 Nonallopathic Lesions Of Lumbar Region Not Elsewhere Classified 12/09/2007 MARIA GUADALUPE PROJECT LANDSCAPE ARCHITECT, TON S 739.4 Nonallopathic Lesions Of Sacral Region Not Elsewhere Classified 12/09/2007 MARIA GUADALUPE PROJECT LANDSCAPE ARCHITECT, TON S 739.3 Nonallopathic Lesions Of Lumbar Region Not Elsewhere Classified 12/09/2007 MARIA GUADALUPE PROJECT LANDSCAPE ARCHITECT, TON S 739.4 Nonallopathic Lesions Of Sacral Region Not Elsewhere Classified 12/09/2007 MARIA GUADALUPE PROJECT LANDSCAPE ARCHITECT, TON S 739.3 Nonallopathic Lesions Of Lumbar Region Not Elsewhere Classified 12/09/2007 MARIA GUADALUPE PROJECT LANDSCAPE ARCHITECT, TON S 739.4 Nonallopathic Lesions Of Sacral Region Not Elsewhere Classified 12/09/2007 MARIA GUADALUPE PROJECT LANDSCAPE ARCHITECT, TON S 739.3 Nonallopathic Lesions Of Lumbar Region Not Elsewhere Classified 12/09/2007 MARIA GUADALUPE PROJECT LANDSCAPE ARCHITECT, TON S 739.4 Nonallopathic Lesions Of Sacral Region Not Elsewhere Classified 12/09/2007 VELASQUEZ KAUR PSYD ANN L 739.3 Nonallopathic Lesions Of Lumbar Region Not Elsewhere Classified 12/09/2007 VELASQUEZ KAUR PSYD ANN L 739.4 Nonallopathic Lesions Of Sacral Region Not Elsewhere Classified 12/09/2007 JEWELS ROMANO DO 739.3 Nonallopathic Lesions Of Lumbar Region Not Elsewhere Classified 12/09/2007 JEWELS ROMANO DO K 739.4 Nonallopathic Lesions Of Sacral Region Not Elsewhere Classified 12/09/2007 VELASQUEZ KAUR PSYD ANN L 739.3 Nonallopathic Lesions Of Lumbar Region Not Elsewhere Classified 12/09/2007 VELASQUEZ KAUR PSYD ANN L 739.4 Nonallopathic Lesions Of Sacral Region Not Elsewhere Classified 12/09/2007 SEJAL PROJECT LANDSCAPE ARCHITECTSYMONE Ramos 739.3 Nonallopathic Lesions Of Lumbar Region Not Elsewhere Classified 12/09/2007 POST PROJECT LANDSCAPE ARCHITECTSYMONE Ramos D 739.4 Nonallopathic Lesions Of Sacral Region Not Elsewhere Classified 12/09/2007 RICHARD PROJECT LANDSCAPE ARCHITECT, JEWELS 739.3 Nonallopathic Lesions Of Lumbar Region Not Elsewhere Classified 12/09/2007 RICHARD PROJECT LANDSCAPE ARCHITECT, JEWELS 739.4 Nonallopathic Lesions Of Sacral Region Not Elsewhere Classified 12/09/2007 RICHARD PROJECT LANDSCAPE ARCHITECT JEWELS 739.3 Nonallopathic Lesions Of Lumbar Region Not Elsewhere Classified 12/09/2007 RICHARD PROJECT LANDSCAPE ARCHITECT, JEWELS 739.4 Nonallopathic Lesions Of Sacral Region Not Elsewhere Classified 12/09/2007 RICHARD PROJECT LANDSCAPE ARCHITECT, JEWELS 739.3 Nonallopathic Lesions Of Lumbar Region Not Elsewhere Classified 12/09/2007 RICHARD PROJECT LANDSCAPE ARCHITECT JEWELS 739.4 Nonallopathic Lesions Of Sacral Region Not Elsewhere Classified 12/30/2007 JEWELS ROMANO DO K 848.9 SPRAIN/STRAIN OTHER UNSPEC SITE 12/30/2007 848.9 SPRAIN/STRAIN OTHER UNSPEC SITE 12/30/2007 848.9 SPRAIN/STRAIN OTHER UNSPEC SITE 12/30/2007 TON LERMA APRN 848.9 Sprain/strain Other Unspec Site 12/30/2007 MARJORIE STRONG APRN 848.9 Sprain/strain Other Unspec Site 12/30/2007 848.9 Sprain/strain Other Unspec Site 12/30/2007 848.9 Sprain/strain Other Unspec Site 12/30/2007 848.9 Sprain/strain Other Unspec Site 12/30/2007 TON LERMA APRN 848.9 Sprain/strain Other Unspec Site 12/30/2007 MARIA GUADALUPE PROJECT LANDSCAPE ARCHITECT, TON S 848.9 Sprain/strain Other Unspec Site 12/30/2007 ISAIAS VALENZUELA MD 848.9 Sprain/strain Other Unspec Site 12/30/2007 MARIA GUADALUPE PROJECT LANDSCAPE ARCHITECT, TON S 848.9 Sprain/strain Other Unspec Site 12/30/2007 MARIA GUADALUPE PROJECT LANDSCAPE ARCHITECT, TON S 848.9 Sprain/strain Other Unspec Site 12/30/2007 MARIA GUADALUPE PROJECT LANDSCAPE ARCHITECT, TON S 848.9 Sprain/strain Other Unspec Site 12/30/2007 MARIA GUADALUPE PROJECT LANDSCAPE ARCHITECT, TON S 848.9 Sprain/strain Other Unspec Site 12/30/2007 MARIA GUADALUPE PROJECT LANDSCAPE ARCHITECT, TON S 848.9 Sprain/strain Other Unspec Site 12/30/2007 CATHERINE PERALES APRN 848.9 Sprain/strain Other Unspec Site 12/30/2007 MARIA GUADALUPE PROJECT LANDSCAPE ARCHITECT, TON S 848.9 Sprain/strain Other Unspec Site 12/30/2007 MARIA GUADALUPE VAUGHN, TON S 848.9 Sprain/strain Other Unspec Site 12/30/2007 MARIA GUADALUPE PROJECT LANDSCAPE ARCHITECT, TON S 848.9 Sprain/strain Other Unspec Site 12/30/2007 MARIA GUADALUPE VAUGHN, TON S 848.9 Sprain/strain Other Unspec Site 12/30/2007 VELASQUEZ KAUR PSYD 848.9 Sprain/strain Other Unspec Site 12/30/2007 JEWELS ROMANO DO 848.9 Sprain/strain Other Unspec Site 12/30/2007 VELASQUEZ KAUR PSYD 848.9 Sprain/strain Other Unspec Site 12/30/2007 SYMONE POST APRN 848.9 Sprain/strain Other Unspec Site 12/30/2007 JEWELS RAMOS APRN 848.9 Sprain/strain Other Unspec Site 12/30/2007 JEWELS RAMOS APRN 848.9 Sprain/strain Other Unspec Site 12/30/2007 RICHARD VAUGHN JEWELS 848.9 Sprain/strain Other Unspec Site 01/17/2008 JEWELS ROMANO DO 110.1 ONYCHOMYCOSIS 01/17/2008 110.1 ONYCHOMYCOSIS 01/17/2008 110.1 ONYCHOMYCOSIS 01/17/2008 MARIA GUADALUPE PROJECT LANDSCAPE ARCHITECT, TON S 110.1 ONYCHOMYCOSIS 01/17/2008 MARJORIE STRONG APRN 110.1 ONYCHOMYCOSIS 01/17/2008 110.1 ONYCHOMYCOSIS 01/17/2008 110.1 ONYCHOMYCOSIS 01/17/2008 110.1 ONYCHOMYCOSIS 01/17/2008 MARIA GUADALUPE PROJECT LANDSCAPE ARCHITECT, TON S 110.1 ONYCHOMYCOSIS 01/17/2008 MARIA GUADALUPE PROJECT LANDSCAPE ARCHITECT, TON S 110.1 ONYCHOMYCOSIS 01/17/2008 ISAIAS VALENZUELA MD 110.1 ONYCHOMYCOSIS 01/17/2008 MARIA GUADALUPE PROJECT LANDSCAPE ARCHITECT, TON S 110.1 ONYCHOMYCOSIS 01/17/2008 MARIA GUADALUPE PROJECT LANDSCAPE ARCHITECT, TON S 110.1 ONYCHOMYCOSIS 01/17/2008 MARIA GUADALUPE PROJECT LANDSCAPE ARCHITECT, TON S 110.1 ONYCHOMYCOSIS 01/17/2008 MARIA GUADALUPE PROJECT LANDSCAPE ARCHITECT, TON S 110.1 ONYCHOMYCOSIS 01/17/2008 MARIA GUADALUPE PROJECT LANDSCAPE ARCHITECT, TON S 110.1 ONYCHOMYCOSIS 01/17/2008 CATHERINE PERALES APRN 110.1 ONYCHOMYCOSIS 01/17/2008 MARIA GUADALUPE PROJECT LANDSCAPE ARCHITECT, TON S 110.1 ONYCHOMYCOSIS 01/17/2008 MARIA GUADALUPE PROJECT LANDSCAPE ARCHITECT, TON S 110.1 ONYCHOMYCOSIS 01/17/2008 MARIA GUADALUPE PROJECT LANDSCAPE ARCHITECT, TON S 110.1 ONYCHOMYCOSIS 01/17/2008 MARIA GUADALUPE CHAUDHARIN, TON S 110.1 ONYCHOMYCOSIS 01/17/2008 VELASQUEZ KAUR PSYD L 110.1 ONYCHOMYCOSIS 01/17/2008 JEWELS ROMANO DO 110.1 ONYCHOMYCOSIS 01/17/2008 VELASQUEZ KAUR PSYD L 110.1 ONYCHOMYCOSIS 01/17/2008 SYMONE POST APRN 110.1 ONYCHOMYCOSIS 01/17/2008 RICHARD PROJECT LANDSCAPE ARCHITECT, JEWELS 110.1 ONYCHOMYCOSIS 01/17/2008 RICHARD PROJECT LANDSCAPE ARCHITECT, JEWELS 110.1 ONYCHOMYCOSIS 01/17/2008 RICHARD PROJECT LANDSCAPE ARCHITECT, JEWELS 110.1 ONYCHOMYCOSIS 01/21/2008 JEWELS ROMANO DO [facility] MEDICAL RECORDS 01/21/2008 [facility] MEDICAL RECORDS 01/21/2008 [facility] MEDICAL RECORDS 01/21/2008 MARIA GUADALUPE VAUGHN, TON S [facility] Medical Records 01/21/2008 MARJORIE STRONG APRN [facility] Medical Records 01/21/2008 [facility] Medical Records 01/21/2008 [facility] Medical Records 01/21/2008 [facility] Medical Records 01/21/2008 MARIA GUADALUPE PROJECT LANDSCAPE ARCHITECT, TON S [facility] Medical Records 01/21/2008 MARIA GUADALUPE PROJECT LANDSCAPE ARCHITECT, TON S [facility] Medical Records 01/21/2008 BIANCA SHAH, ISAIAS [facility] Medical Records 01/21/2008 MARIA GUADALUPE PROJECT LANDSCAPE ARCHITECT, TON S [facility] Medical Records 01/21/2008 MARIA GUADALUPE PROJECT LANDSCAPE ARCHITECT, TON S [facility] Medical Records 01/21/2008 MARIA GUADALUPE PROJECT LANDSCAPE ARCHITECT, TON S [facility] Medical Records 01/21/2008 MARIA GUADALUPE PROJECT LANDSCAPE ARCHITECT, TON S [facility] Medical Records 01/21/2008 MARIA GUADALUPE CHAUDHARIN, TON S [facility] Medical Records 01/21/2008 CATHERINE PERALES APRN [facility] Medical Records 01/21/2008 MARIA GUADALUPE PROJECT LANDSCAPE ARCHITECT, TON S [facility] Medical Records 01/21/2008 MARIA GUADALUPE PROJECT LANDSCAPE ARCHITECT, TON S [facility] Medical Records 01/21/2008 MARIA GUADALUPE PROJECT LANDSCAPE ARCHITECT, TON S [facility] Medical Records 01/21/2008 MARIA GUADALUPE PROJECT LANDSCAPE ARCHITECT, TON S [facility] Medical Records 01/21/2008 VELASQUEZ KAUR PSYD [facility] Medical Records 01/21/2008 JEWELS ROMANO DO [facility] Medical Records 01/21/2008 VELASQUEZ KAUR PSYD [facility] Medical Records 01/21/2008 SYMONE POST APRN [facility] Medical Records 01/21/2008 RICHARD PROJECT LANDSCAPE ARCHITECT, JEWELS [facility] Medical Records 01/21/2008 RICHARD PROJECT LANDSCAPE ARCHITECT, JEWELS [facility] Medical Records 01/21/2008 RICHARD PROJECT LANDSCAPE ARCHITECT, JEWELS [facility] Medical Records 02/10/2008 JEWELS ROMANO DO 847.9 SPRAIN/STRAIN BACK UNSPEC 02/10/2008 847.9 SPRAIN/STRAIN BACK UNSPEC 02/10/2008 847.9 SPRAIN/STRAIN BACK UNSPEC 02/10/2008 BRITNEY LERMA APRNA S 847.9 Sprain/strain Back Unspec 02/10/2008 MARJORIE STRONG APRN 847.9 Sprain/strain Back Unspec 02/10/2008 847.9 Sprain/strain Back Unspec 02/10/2008 847.9 Sprain/strain Back Unspec 02/10/2008 847.9 Sprain/strain Back Unspec 02/10/2008 BRITNEY LERMA APRNA S 847.9 Sprain/strain Back Unspec 02/10/2008 BRITNEY LERMA APRNA S 847.9 Sprain/strain Back Unspec 02/10/2008 ISAIAS VALENZUELA MD 847.9 Sprain/strain Back Unspec 02/10/2008 BRITNEY LERMA APRNA S 847.9 Sprain/strain Back Unspec 02/10/2008 BRITNEY LERMA APRNA S 847.9 Sprain/strain Back Unspec 02/10/2008 BRITNEY LERMA APRNA S 847.9 Sprain/strain Back Unspec 02/10/2008 BRITNEY LERMA APRNA S 847.9 Sprain/strain Back Unspec 02/10/2008 BRITNEY LERMA APRNA S 847.9 Sprain/strain Back Unspec 02/10/2008 CATHERINE PERALES APRN 847.9 Sprain/strain Back Unspec 02/10/2008 BRITNEY LERMA APRNA S 847.9 Sprain/strain Back Unspec 02/10/2008 BRITNEY LERMA APRNA S 847.9 Sprain/strain Back Unspec 02/10/2008 MARIA GUADALUPE VAUGHN TON S 847.9 Sprain/strain Back Unspec 02/10/2008 QUINTEN LERMA APRNNDA S 847.9 Sprain/strain Back Unspec 02/10/2008 VELASQUEZ KAUR PSYD 847.9 Sprain/strain Back Unspec 02/10/2008 JEWELS ROMANO DO 847.9 Sprain/strain Back Unspec 02/10/2008 VELASQUEZ KAUR PSYD 847.9 Sprain/strain Back Unspec 02/10/2008 POST PROJECT LANDSCAPE ARCHITECT, SYMONE D 847.9 Sprain/strain Back Unspec 02/10/2008 RICHARD PROJECT LANDSCAPE ARCHITECT, JEWELS 847.9 Sprain/strain Back Unspec 02/10/2008 RICHARD PROJECT LANDSCAPE ARCHITECT, JEWELS 847.9 Sprain/strain Back Unspec 02/10/2008 RICHARD PROJECT LANDSCAPE ARCHITECT, JEWELS 847.9 Sprain/strain Back Unspec 02/24/2008 JEWELS ROMANO DO 466.0 BRONCHITIS, ACUTE 02/24/2008 466.0 BRONCHITIS, ACUTE 02/24/2008 466.0 BRONCHITIS, ACUTE 02/24/2008 MARIA GUADALUPE PROJECT LANDSCAPE ARCHITECT, TON S 466.0 Bronchitis, Acute 02/24/2008 TAE PROJECT LANDSCAPE ARCHITECTMARJORIE Ramos 466.0 Bronchitis, Acute 02/24/2008 466.0 Bronchitis, Acute 02/24/2008 466.0 Bronchitis, Acute 02/24/2008 466.0 Bronchitis, Acute 02/24/2008 MARIA GUADALUPE PROJECT LANDSCAPE ARCHITECT, TON S 466.0 Bronchitis, Acute 02/24/2008 MARIA GUADALUPE PROJECT LANDSCAPE ARCHITECT, TON S 466.0 Bronchitis, Acute 02/24/2008 BIANCA SHAH, ISAIAS 466.0 Bronchitis, Acute 02/24/2008 MARIA GUADALUPE PROJECT LANDSCAPE ARCHITECT, TON S 466.0 Bronchitis, Acute 02/24/2008 MARIA GUADALUPE PROJECT LANDSCAPE ARCHITECT, TON S 466.0 Bronchitis, Acute 02/24/2008 MARIA GUADALUPE PROJECT LANDSCAPE ARCHITECT, TON S 466.0 Bronchitis, Acute 02/24/2008 MARIA GUADALUPE PROJECT LANDSCAPE ARCHITECT, TON S 466.0 Bronchitis, Acute 02/24/2008 MARIA GUADALUPE PROJECT LANDSCAPE ARCHITECT, TON S 466.0 Bronchitis, Acute 02/24/2008 CATHERINE PERALES APRN 466.0 Bronchitis, Acute 02/24/2008 MARIA GUADALUPE PROJECT LANDSCAPE ARCHITECT, TON S 466.0 Bronchitis, Acute 02/24/2008 MARIA GUADALUPE PROJECT LANDSCAPE ARCHITECT, TON S 466.0 Bronchitis, Acute 02/24/2008 MARIA GUADALUPE PROJECT LANDSCAPE ARCHITECT, TON S 466.0 Bronchitis, Acute 02/24/2008 MARIA GUADALUPE PROJECT LANDSCAPE ARCHITECT, TON S 466.0 Bronchitis, Acute 02/24/2008 VELASQUEZ KAUR PSYD L 466.0 Bronchitis, Acute 02/24/2008 JEWELS ROMANO DO 466.0 Bronchitis, Acute 02/24/2008 MCCLEEARY PSYD, GERONIMO L 466.0 Bronchitis, Acute 02/24/2008 SEJAL PROJECT LANDSCAPE ARCHITECT, SYMONE Waldrop 466.0 Bronchitis, Acute 02/24/2008 RICHARD PROJECT LANDSCAPE ARCHITECT, JEWELS 466.0 Bronchitis, Acute 02/24/2008 RICHARD PROJECT LANDSCAPE ARCHITECT, JEWELS 466.0 Bronchitis, Acute 02/24/2008 RICHARD PROJECT LANDSCAPE ARCHITECT, JEWELS 466.0 Bronchitis, Acute 04/04/2008 ROMANO DO, JEWELS K 133.0 SCABIES 04/04/2008 133.0 SCABIES 04/04/2008 133.0 SCABIES 04/04/2008 MARIA GUADALUPE PROJECT LANDSCAPE ARCHITECT, TON S 133.0 Scabies 04/04/2008 TAE PROJECT LANDSCAPE ARCHITECTMARJORIE Ramos 133.0 Scabies 04/04/2008 133.0 Scabies 04/04/2008 133.0 Scabies 04/04/2008 133.0 Scabies 04/04/2008 MARIA GUADALUPE PROJECT LANDSCAPE ARCHITECT, TON S 133.0 Scabies 04/04/2008 MARIA GUADALUPE PROJECT LANDSCAPE ARCHITECT, TON S 133.0 Scabies 04/04/2008 ISAIAS VALENZUELA MD 133.0 Scabies 04/04/2008 MARIA GUADALUPE PROJECT LANDSCAPE ARCHITECT, TON S 133.0 Scabies 04/04/2008 MARIA GUADALUPE PROJECT LANDSCAPE ARCHITECT, TON S 133.0 Scabies 04/04/2008 MARIA GUADALUPE PROJECT LANDSCAPE ARCHITECT, TON S 133.0 Scabies 04/04/2008 MARIA GUADALUPE PROJECT LANDSCAPE ARCHITECT, TON S 133.0 Scabies 04/04/2008 MARIA GUADALUPE PROJECT LANDSCAPE ARCHITECT, TON S 133.0 Scabies 04/04/2008 CATHERINE PERALES APRN 133.0 Scabies 04/04/2008 MARIA GUADALUPE PROJECT LANDSCAPE ARCHITECT, TON S 133.0 Scabies 04/04/2008 MARIA GUADALUPE PROJECT LANDSCAPE ARCHITECT, TON S 133.0 Scabies 04/04/2008 MARIA GUADALUPE PROJECT LANDSCAPE ARCHITECT, TON S 133.0 Scabies 04/04/2008 MARIA GUADALUPE PROJECT LANDSCAPE ARCHITECT, TON S 133.0 Scabies 04/04/2008 VELASQUEZ KAUR PSYD L 133.0 Scabies 04/04/2008 JEWELS ROMANO DO K 133.0 Scabies 04/04/2008 VELASQUEZ KAUR PSYD L 133.0 Scabies 04/04/2008 POST PROJECT LANDSCAPE ARCHITECT, SYMONE Waldrop 133.0 Scabies 04/04/2008 RICHARD PROJECT LANDSCAPE ARCHITECT, JEWELS 133.0 Scabies 04/04/2008 RICHARD PROJECT LANDSCAPE ARCHITECT, JEWELS 133.0 Scabies 04/04/2008 RICHARD PROJECT LANDSCAPE ARCHITECT, JEWELS 133.0 Scabies 05/09/2008 JUAN ANTONIO OTTO, JEWELS K 785.6 LYMPH NODES ENLARGEMENT 05/09/2008 785.6 LYMPH NODES ENLARGEMENT 05/09/2008 785.6 LYMPH NODES ENLARGEMENT 05/09/2008 MARIA GUADALUPE PROJECT LANDSCAPE ARCHITECT, TON S 785.6 Lymph Nodes Enlargement 05/09/2008 TAE PROJECT LANDSCAPE ARCHITECTMARJORIE 785.6 Lymph Nodes Enlargement 05/09/2008 785.6 Lymph Nodes Enlargement 05/09/2008 785.6 Lymph Nodes Enlargement 05/09/2008 785.6 Lymph Nodes Enlargement 05/09/2008 MARIA GUADALUPE PROJECT LANDSCAPE ARCHITECT, TON S 785.6 Lymph Nodes Enlargement 05/09/2008 MARIA GUADALUPE PROJECT LANDSCAPE ARCHITECT, TON S 785.6 Lymph Nodes Enlargement 05/09/2008 ISAIAS VALENZUELA MD 785.6 Lymph Nodes Enlargement 05/09/2008 MARIA GUADALUPE PROJECT LANDSCAPE ARCHITECT, TON S 785.6 Lymph Nodes Enlargement 05/09/2008 MARIA GUADALUPE PROJECT LANDSCAPE ARCHITECT, TON S 785.6 Lymph Nodes Enlargement 05/09/2008 MARIA GUADALUPE PROJECT LANDSCAPE ARCHITECT, TON S 785.6 Lymph Nodes Enlargement 05/09/2008 MARIA GUADALUPE PROJECT LANDSCAPE ARCHITECT, TON S 785.6 Lymph Nodes Enlargement 05/09/2008 MARIA GUADALUPE PROJECT LANDSCAPE ARCHITECT, TON S 785.6 Lymph Nodes Enlargement 05/09/2008 DIAZ PROJECT LANDSCAPE ARCHITECT, CATHERINE Walker 785.6 Lymph Nodes Enlargement 05/09/2008 MARIA GUADALUPE PROJECT LANDSCAPE ARCHITECT, TON S 785.6 Lymph Nodes Enlargement 05/09/2008 MARIA GUADALUPE PROJECT LANDSCAPE ARCHITECT, TON S 785.6 Lymph Nodes Enlargement 05/09/2008 MARIA GUADALUPE PROJECT LANDSCAPE ARCHITECT, TON S 785.6 Lymph Nodes Enlargement 05/09/2008 MARIA GUADALUPE PROJECT LANDSCAPE ARCHITECT, TON S 785.6 Lymph Nodes Enlargement 05/09/2008 VELASQUEZ KAUR PSYD L 785.6 Lymph Nodes Enlargement 05/09/2008 ROMANO DOSACHAA K 785.6 Lymph Nodes Enlargement 05/09/2008 VELASQUEZ KAUR PSYD L 785.6 Lymph Nodes Enlargement 05/09/2008 SYMONE POST APRN 785.6 Lymph Nodes Enlargement 05/09/2008 RICHARD PROJECT LANDSCAPE ARCHITECT, JEWELS 785.6 Lymph Nodes Enlargement 05/09/2008 RICHARD PROJECT LANDSCAPE ARCHITECT, JEWELS 785.6 Lymph Nodes Enlargement 05/09/2008 RICHARD PROJECT LANDSCAPE ARCHITECT, JEWELS 785.6 Lymph Nodes Enlargement 08/07/2008 ROMANO DO JEWELS K 278.02 Overweight 08/07/2008 ROMANO DO, JEWELS K 590.9 INFECTION OF KIDNEY 08/07/2008 ROMANO DO, JEWELS K 599.0 URINARY TRACT INFECTION 08/07/2008 ROMANO DO JEWELS K 696.1 PSORIASIS 08/07/2008 278.02 Overweight 08/07/2008 590.9 INFECTION OF KIDNEY 08/07/2008 599.0 URINARY TRACT INFECTION 08/07/2008 696.1 PSORIASIS 08/07/2008 278.02 Overweight 08/07/2008 590.9 INFECTION OF KIDNEY 08/07/2008 599.0 URINARY TRACT INFECTION 08/07/2008 696.1 PSORIASIS 08/07/2008 TON LERMA APRN S 278.02 Overweight 08/07/2008 TON LERMA APRN S 590.9 Infection Of Kidney 08/07/2008 TON LERMA APRN S 599.0 Urinary Tract Infection 08/07/2008 TON LERMA APRN S 696.1 PSORIASIS 08/07/2008 MARJORIE STRONG APRN 278.02 Overweight 08/07/2008 MARJORIE STRONG APRN 590.9 Infection Of Kidney 08/07/2008 MARJORIE STRONG APRN 599.0 Urinary Tract Infection 08/07/2008 MARJORIE STRONG APRN 696.1 PSORIASIS 08/07/2008 278.02 Overweight 08/07/2008 590.9 Infection Of Kidney 08/07/2008 599.0 Urinary Tract Infection 08/07/2008 696.1 PSORIASIS 08/07/2008 278.02 Overweight 08/07/2008 590.9 Infection Of Kidney 08/07/2008 599.0 Urinary Tract Infection 08/07/2008 696.1 PSORIASIS 08/07/2008 278.02 Overweight 08/07/2008 590.9 Infection Of Kidney 08/07/2008 599.0 Urinary Tract Infection 08/07/2008 696.1 PSORIASIS 08/07/2008 MARIA GUADALUPE PROJECT LANDSCAPE ARCHITECT, TON S 278.02 Overweight 08/07/2008 MARIA GUADALUPE PROJECT LANDSCAPE ARCHITECT, TON S 590.9 Infection Of Kidney 08/07/2008 MARIA GUADALUPE PROJECT LANDSCAPE ARCHITECT, TON S 599.0 Urinary Tract Infection 08/07/2008 MARIA GUADALUPE PROJECT LANDSCAPE ARCHITECT, TON S 696.1 PSORIASIS 08/07/2008 MARIA GUADALUPE PROJECT LANDSCAPE ARCHITECT, TON S 278.02 Overweight 08/07/2008 MARIA GUADALUPE PROJECT LANDSCAPE ARCHITECT, TON S 590.9 Infection Of Kidney 08/07/2008 MARIA GUADALUPE PROJECT LANDSCAPE ARCHITECT, TON S 599.0 Urinary Tract Infection 08/07/2008 MARIA GUADALUPE PROJECT LANDSCAPE ARCHITECT, TON S 696.1 PSORIASIS 08/07/2008 ISAIAS VALENZUELA MD 278.02 Overweight 08/07/2008 ISAIAS VALENZUELA MD 590.9 Infection Of Kidney 08/07/2008 ISAIAS VALENZUELA MD 599.0 Urinary Tract Infection 08/07/2008 ISAIAS VALENZUELA MD 696.1 PSORIASIS 08/07/2008 MARIA GUADALUPE PROJECT LANDSCAPE ARCHITECT, TON S 278.02 Overweight 08/07/2008 MARIA GUADALUPE PROJECT LANDSCAPE ARCHITECT, TON S 590.9 Infection Of Kidney 08/07/2008 MARIA GUADALUPE PROJECT LANDSCAPE ARCHITECT, TON S 599.0 Urinary Tract Infection 08/07/2008 MARIA GUADALUPE PROJECT LANDSCAPE ARCHITECT, TON S 696.1 PSORIASIS 08/07/2008 MARIA GUADALUPE PROJECT LANDSCAPE ARCHITECT, TON S 278.02 Overweight 08/07/2008 MARIA GUADALUPE PROJECT LANDSCAPE ARCHITECT, TON S 590.9 Infection Of Kidney 08/07/2008 MARIA GUADALUPE PROJECT LANDSCAPE ARCHITECT, TON S 599.0 Urinary Tract Infection 08/07/2008 MARIA GUADALUPE PROJECT LANDSCAPE ARCHITECT, TON S 696.1 PSORIASIS 08/07/2008 MARIA GUADALUPE PROJECT LANDSCAPE ARCHITECT, TON S 278.02 Overweight 08/07/2008 MARIA GUADALUPE PROJECT LANDSCAPE ARCHITECT, TON S 590.9 Infection Of Kidney 08/07/2008 MARIA GUADALUPE PROJECT LANDSCAPE ARCHITECT, TON S 599.0 Urinary Tract Infection 08/07/2008 MARIA GUADALUPE PROJECT LANDSCAPE ARCHITECT, TON S 696.1 PSORIASIS 08/07/2008 MARIA GUADALUPE PROJECT LANDSCAPE ARCHITECT, TON S 278.02 Overweight 08/07/2008 MARIA GUADALUPE PROJECT LANDSCAPE ARCHITECT, TON S 590.9 Infection Of Kidney 08/07/2008 MARIA GUADALUPE PROJECT LANDSCAPE ARCHITECT, TON S 599.0 Urinary Tract Infection 08/07/2008 MARIA GUADALUPE PROJECT LANDSCAPE ARCHITECT, TON S 696.1 PSORIASIS 08/07/2008 MARIA GUADALUPE PROJECT LANDSCAPE ARCHITECT, TON S 278.02 Overweight 08/07/2008 MARIA GUADALUPE PROJECT LANDSCAPE ARCHITECT, TON S 590.9 Infection Of Kidney 08/07/2008 MARIA GUADALUPE PROJECT LANDSCAPE ARCHITECT, TON S 599.0 Urinary Tract Infection 08/07/2008 MARIA GUADALUPE PROJECT LANDSCAPE ARCHITECT, TON S 696.1 PSORIASIS 08/07/2008 DIAZ PROJECT LANDSCAPE ARCHITECT, CATHERINE T 278.02 Overweight 08/07/2008 DIAZ PROJECT LANDSCAPE ARCHITECT, CATHERINE T 590.9 Infection Of Kidney 08/07/2008 DIAZ PROJECT LANDSCAPE ARCHITECT, CATHERINE T 599.0 Urinary Tract Infection 08/07/2008 DIAZ PROJECT LANDSCAPE ARCHITECT, CATHERINE T 696.1 PSORIASIS 08/07/2008 MARIA GUADALUPE PROJECT LANDSCAPE ARCHITECT, TON S 278.02 Overweight 08/07/2008 MARIA GUADALUPE PROJECT LANDSCAPE ARCHITECT, TON S 590.9 Infection Of Kidney 08/07/2008 MARIA GUADALUPE PROJECT LANDSCAPE ARCHITECT, TON S 599.0 Urinary Tract Infection 08/07/2008 MARIA GUADALUPE PROJECT LANDSCAPE ARCHITECT, TON S 696.1 PSORIASIS 08/07/2008 MARIA GUADALUPE PROJECT LANDSCAPE ARCHITECT, TON S 278.02 Overweight 08/07/2008 MARIA GUADALUPE PROJECT LANDSCAPE ARCHITECT, TON S 590.9 Infection Of Kidney 08/07/2008 MARIA GUADALUPE PROJECT LANDSCAPE ARCHITECT, TON S 599.0 Urinary Tract Infection 08/07/2008 MARIA GUADALUPE PROJECT LANDSCAPE ARCHITECT, TON S 696.1 PSORIASIS 08/07/2008 MARIA GUADALUPE PROJECT LANDSCAPE ARCHITECT, TON S 278.02 Overweight 08/07/2008 MARIA GUADALUPE PROJECT LANDSCAPE ARCHITECT, TON S 590.9 Infection Of Kidney 08/07/2008 MARIA GUADALUPE PROJECT LANDSCAPE ARCHITECT, TON S 599.0 Urinary Tract Infection 08/07/2008 MARIA GUADALUPE PROJECT LANDSCAPE ARCHITECT, TON S 696.1 PSORIASIS 08/07/2008 MARIA GUADALUPE PROJECT LANDSCAPE ARCHITECT, TON S 278.02 Overweight 08/07/2008 MARIA GUADALUPE PROJECT LANDSCAPE ARCHITECT, TON S 590.9 Infection Of Kidney 08/07/2008 MARIA GUADALUPE PROJECT LANDSCAPE ARCHITECT, TON S 599.0 Urinary Tract Infection 08/07/2008 MARIA GUADALUPE PROJECT LANDSCAPE ARCHITECT, TON S 696.1 PSORIASIS 08/07/2008 VELASQUEZ KAUR PSYD L 278.02 Overweight 08/07/2008 VELASQUEZ KAUR PSYD L 590.9 Infection Of Kidney 08/07/2008 VELASQUEZ KAUR PSYD ANN L 599.0 Urinary Tract Infection 08/07/2008 VELASQUEZ KAUR PSYD L 696.1 PSORIASIS 08/07/2008 ROMANO DO, JEWELS K 278.02 Overweight 08/07/2008 ROMANO DO, JEWELS K 590.9 Infection Of Kidney 08/07/2008 ROMANO DO, JEWELS K 599.0 Urinary Tract Infection 08/07/2008 ROMANO DO, JEWELS K 696.1 PSORIASIS 08/07/2008 VELASQUEZ KAUR PSYD ANN L 278.02 Overweight 08/07/2008 VELASQUEZ KAUR PSYD ANN L 590.9 Infection Of Kidney 08/07/2008 VELASQUEZ KAUR PSYD L 599.0 Urinary Tract Infection 08/07/2008 VELASQUEZ KAUR PSYD ANN L 696.1 PSORIASIS 08/07/2008 SYMONE POST APRN 278.02 Overweight 08/07/2008 SYMONE POST APRN 590.9 Infection Of Kidney 08/07/2008 SYMONE POST APRN 599.0 Urinary Tract Infection 08/07/2008 SYMONE POST APRN 696.1 PSORIASIS 08/07/2008 RICHARD PROJECT LANDSCAPE ARCHITECT, JEWELS 278.02 Overweight 08/07/2008 RICHARD PROJECT LANDSCAPE ARCHITECT JEWELS 590.9 Infection Of Kidney 08/07/2008 RICHARD PROJECT LANDSCAPE ARCHITECT JEWELS 599.0 Urinary Tract Infection 08/07/2008 RICHARD PROJECT LANDSCAPE ARCHITECT JEWELS 696.1 PSORIASIS 08/07/2008 RICHARD PROJECT LANDSCAPE ARCHITECT, JEWELS 278.02 Overweight 08/07/2008 RICHARD PROJECT LANDSCAPE ARCHITECT JEWELS 590.9 Infection Of Kidney 08/07/2008 RICHARD PROJECT LANDSCAPE ARCHITECT, JEWELS 599.0 Urinary Tract Infection 08/07/2008 RICHARD PROJECT LANDSCAPE ARCHITECT, JEWELS 696.1 PSORIASIS 08/07/2008 RICHARD PROJECT LANDSCAPE ARCHITECT, JEWELS 278.02 Overweight 08/07/2008 RICHARD PROJECT LANDSCAPE ARCHITECT, JEWELS 590.9 Infection Of Kidney 08/07/2008 RICHARD PROJECT LANDSCAPE ARCHITECT, JEWELS 599.0 Urinary Tract Infection 08/07/2008 RICHARD PROJECT LANDSCAPE ARCHITECT, JEWELS 696.1 PSORIASIS 08/10/2008 JUAN ANTONIO DOJEWELS K 784.0 HEADACHE 08/10/2008 784.0 HEADACHE 08/10/2008 784.0 HEADACHE 08/10/2008 MARIA GUADALUPE PROJECT LANDSCAPE ARCHITECT, TON S 784.0 Headache 08/10/2008 MARJORIE STRONG APRN 784.0 Headache 08/10/2008 784.0 Headache 08/10/2008 784.0 Headache 08/10/2008 784.0 Headache 08/10/2008 MARIA GUADALUPE PROJECT LANDSCAPE ARCHITECT, TON S 784.0 Headache 08/10/2008 MARIA GUADALUPE PROJECT LANDSCAPE ARCHITECT, TON S 784.0 Headache 08/10/2008 ISAIAS VALENZUELA MD 784.0 Headache 08/10/2008 MARIA GUADALUPE PROJECT LANDSCAPE ARCHITECT, TON S 784.0 Headache 08/10/2008 MARIA GUADALUPE PROJECT LANDSCAPE ARCHITECT, TON S 784.0 Headache 08/10/2008 MARIA GUADALUPE PROJECT LANDSCAPE ARCHITECT, TON S 784.0 Headache 08/10/2008 MARIA GUADALUPE PROJECT LANDSCAPE ARCHITECT, TON S 784.0 Headache 08/10/2008 MARIA GUADALUPE PROJECT LANDSCAPE ARCHITECT, TON S 784.0 Headache 08/10/2008 DIAZ PROJECT LANDSCAPE ARCHITECTCATHERINE Ramos 784.0 Headache 08/10/2008 MARIA GUADALUPE PROJECT LANDSCAPE ARCHITECT, TON S 784.0 Headache 08/10/2008 MARIA GUADALUPE PROJECT LANDSCAPE ARCHITECT, TON S 784.0 Headache 08/10/2008 MARIA GUADALUPE PROJECT LANDSCAPE ARCHITECT, TON S 784.0 Headache 08/10/2008 MARIA GUADALUPE PROJECT LANDSCAPE ARCHITECT, TON S 784.0 Headache 08/10/2008 VELASQUEZ KAUR PSYD 784.0 Headache 08/10/2008 JEWELS ROMANO DO K 784.0 Headache 08/10/2008 VELASQUEZ KAUR PSYD 784.0 Headache 08/10/2008 POST PROJECT LANDSCAPE ARCHITECTSYMONE Ramos 784.0 Headache 08/10/2008 RICHARD PROJECT LANDSCAPE ARCHITECT, JEWELS 784.0 Headache 08/10/2008 RICHARD PROJECT LANDSCAPE ARCHITECT, JEWELS 784.0 Headache 08/10/2008 RICHARD PROJECT LANDSCAPE ARCHITECT, JEWELS 784.0 Headache 08/30/2008 ROMANO DO, JEWELS K 788.1 DYSURIA 08/30/2008 788.1 DYSURIA 08/30/2008 788.1 DYSURIA 08/30/2008 MARIA GUADALUPE PROJECT LANDSCAPE ARCHITECT, TON S 788.1 Dysuria 08/30/2008 MARJORIE STRONG APRN 788.1 Dysuria 08/30/2008 788.1 Dysuria 08/30/2008 788.1 Dysuria 08/30/2008 788.1 Dysuria 08/30/2008 MARIA GUADALUPE PROJECT LANDSCAPE ARCHITECT, TON S 788.1 Dysuria 08/30/2008 MARIA GUADALUPE PROJECT LANDSCAPE ARCHITECT, TON S 788.1 Dysuria 08/30/2008 ISAIAS VALENZUELA MD 788.1 Dysuria 08/30/2008 MARIA GUADALUPE PROJECT LANDSCAPE ARCHITECT, TON S 788.1 Dysuria 08/30/2008 MARIA GUADALUPE PROJECT LANDSCAPE ARCHITECT, TON S 788.1 Dysuria 08/30/2008 MARIA GUADALUPE PROJECT LANDSCAPE ARCHITECT, TON S 788.1 Dysuria 08/30/2008 MARIA GUADALUPE PROJECT LANDSCAPE ARCHITECT, TON S 788.1 Dysuria 08/30/2008 MARIA GUADALUPE PROJECT LANDSCAPE ARCHITECT, TON S 788.1 Dysuria 08/30/2008 CATHERINE PERALES APRN 788.1 Dysuria 08/30/2008 MARIA GUADALUPE PROJECT LANDSCAPE ARCHITECT, TON S 788.1 Dysuria 08/30/2008 MARIA GUADALUPE PROJECT LANDSCAPE ARCHITECT, TON S 788.1 Dysuria 08/30/2008 MARIA GUADALUPE PROJECT LANDSCAPE ARCHITECT, TON S 788.1 Dysuria 08/30/2008 MARIA GUADALUPE PROJECT LANDSCAPE ARCHITECT, TON S 788.1 Dysuria 08/30/2008 VELASQUEZ KAUR PSYD L 788.1 Dysuria 08/30/2008 ROMANO DO, JEWELS K 788.1 Dysuria 08/30/2008 VELASQUEZ KAUR PSYD 788.1 Dysuria 08/30/2008 SYMONE POST APRN 788.1 Dysuria 08/30/2008 RICHARD PROJECT LANDSCAPE ARCHITECT, JEWELS 788.1 Dysuria 08/30/2008 RICHARD PROJECT LANDSCAPE ARCHITECT, JEWELS 788.1 Dysuria 08/30/2008 RICHARD PROJECT LANDSCAPE ARCHITECT, JEWELS 788.1 Dysuria 09/18/2008 JEWELS ROMANO DO 789.00 ABDOMINAL PAIN UNSPECIFIED SITE 09/18/2008 789.00 ABDOMINAL PAIN UNSPECIFIED SITE 09/18/2008 789.00 ABDOMINAL PAIN UNSPECIFIED SITE 09/18/2008 MARIA GUADALUPE VAUGHN, TON S 789.00 Abdominal Pain Unspecified Site 09/18/2008 MARJORIE STRONG APRN 789.00 Abdominal Pain Unspecified Site 09/18/2008 789.00 Abdominal Pain Unspecified Site 09/18/2008 789.00 Abdominal Pain Unspecified Site 09/18/2008 789.00 Abdominal Pain Unspecified Site 09/18/2008 MARIA GUADALUPE VAUGHN, TON S 789.00 Abdominal Pain Unspecified Site 09/18/2008 MARIA GUADALUPE VAUGHN, TON S 789.00 Abdominal Pain Unspecified Site 09/18/2008 BIANCA SHAH, ISAIAS 789.00 Abdominal Pain Unspecified Site 09/18/2008 MARIA GUADALUPE PROJECT LANDSCAPE ARCHITECT, TON S 789.00 Abdominal Pain Unspecified Site 09/18/2008 MARIA GUADALUPE PROJECT LANDSCAPE ARCHITECT, TON S 789.00 Abdominal Pain Unspecified Site 09/18/2008 MARIA GUADALUPE CHAUDHARIN, TON S 789.00 Abdominal Pain Unspecified Site 09/18/2008 MARIA GUADALUPE PROJECT LANDSCAPE ARCHITECT, TON S 789.00 Abdominal Pain Unspecified Site 09/18/2008 MARIA GUADALUPE CHAUDHARIN, TON S 789.00 Abdominal Pain Unspecified Site 09/18/2008 CATHERINE PERALES APRN 789.00 Abdominal Pain Unspecified Site 09/18/2008 MARIA GUADALUPE PROJECT LANDSCAPE ARCHITECT, TON S 789.00 Abdominal Pain Unspecified Site 09/18/2008 MARIA GUADALUPE VAUGHN, TON S 789.00 Abdominal Pain Unspecified Site 09/18/2008 MARIA GUADALUPE VAUGHN, TON S 789.00 Abdominal Pain Unspecified Site 09/18/2008 MARIA GUADALUPE VAUGHN TON S 789.00 Abdominal Pain Unspecified Site 09/18/2008 VELASQUEZ KAUR PSYD ANN L 789.00 Abdominal Pain Unspecified Site 09/18/2008 JEWELS ROMANO DO Jessi 789.00 Abdominal Pain Unspecified Site 09/18/2008 VELASQUEZ KAUR PSYD ANN L 789.00 Abdominal Pain Unspecified Site 09/18/2008 POSTSYMONE Ventura APRN 789.00 Abdominal Pain Unspecified Site 09/18/2008 RICHARD PROJECT LANDSCAPE ARCHITECT, JEWELS 789.00 Abdominal Pain Unspecified Site 09/18/2008 RICHARD PROJECT LANDSCAPE ARCHITECT, JEWELS 789.00 Abdominal Pain Unspecified Site 09/18/2008 RICHARD PROJECT LANDSCAPE ARCHITECT, JEWELS 789.00 Abdominal Pain Unspecified Site 10/18/2008 ROMANO DO JEWELS Jessi 009.1 GASTROENTERITIS INFECT 10/18/2008 009.1 GASTROENTERITIS INFECT 10/18/2008 009.1 GASTROENTERITIS INFECT 10/18/2008 TON LERMA APRN S 009.1 Gastroenteritis Infect 10/18/2008 MARJORIE STRONG APRN 009.1 Gastroenteritis Infect 10/18/2008 009.1 Gastroenteritis Infect 10/18/2008 009.1 Gastroenteritis Infect 10/18/2008 009.1 Gastroenteritis Infect 10/18/2008 BRITNEY LERMA APRNA S 009.1 Gastroenteritis Infect 10/18/2008 QUINTEN LERMA APRNNDA S 009.1 Gastroenteritis Infect 10/18/2008 ISAIAS VALENZUELA MD 009.1 Gastroenteritis Infect 10/18/2008 QUINTEN LERMA APRNNDA S 009.1 Gastroenteritis Infect 10/18/2008 MARIA GUADALUPE VAUGHN, TON S 009.1 Gastroenteritis Infect 10/18/2008 MARIA GUADLAUPE VAUGHN, TON S 009.1 Gastroenteritis Infect 10/18/2008 QUINTEN LERMA APRNNDA S 009.1 Gastroenteritis Infect 10/18/2008 QUINTEN LERMA APRNNDA S 009.1 Gastroenteritis Infect 10/18/2008 CATHERINE PERALES APRN 009.1 Gastroenteritis Infect 10/18/2008 QUINTEN LERMA APRNNDA S 009.1 Gastroenteritis Infect 10/18/2008 BRITNEY LERMA APRNA S 009.1 Gastroenteritis Infect 10/18/2008 BRITNEY LERMA APRNA S 009.1 Gastroenteritis Infect 10/18/2008 QUINTEN LERMA APRNNDA S 009.1 Gastroenteritis Infect 10/18/2008 VELASQUEZ KAUR PSYD ANN L 009.1 Gastroenteritis Infect 10/18/2008 JUAN ANTONIO OTTOJEWELS 009.1 Gastroenteritis Infect 10/18/2008 VELASQUEZ KAUR PSYD ANN L 009.1 Gastroenteritis Infect 10/18/2008 SYMONE POST APRN 009.1 Gastroenteritis Infect 10/18/2008 RICHARD PROJECT LANDSCAPE ARCHITECT, JEWELS 009.1 Gastroenteritis Infect 10/18/2008 RICHARD PROJECT LANDSCAPE ARCHITECT, JEWELS 009.1 Gastroenteritis Infect 10/18/2008 RICHARD PROJECT LANDSCAPE ARCHITECT, JEWELS 009.1 Gastroenteritis Infect 10/20/2008 JEWELS ROMANO DO 008.62 GASTROENTERITIS VIRAL ADENOVIRUS 10/20/2008 008.62 GASTROENTERITIS VIRAL ADENOVIRUS 10/20/2008 008.62 GASTROENTERITIS VIRAL ADENOVIRUS 10/20/2008 BRITNEY LERMA APRNA S 008.62 Gastroenteritis Viral Adenovirus 10/20/2008 MARJORIE STRONG APRN 008.62 Gastroenteritis Viral Adenovirus 10/20/2008 008.62 Gastroenteritis Viral Adenovirus 10/20/2008 008.62 Gastroenteritis Viral Adenovirus 10/20/2008 008.62 Gastroenteritis Viral Adenovirus 10/20/2008 QUINTEN LERMA APRNNDA S 008.62 Gastroenteritis Viral Adenovirus 10/20/2008 QUINTEN LERMA APRNNDA S 008.62 Gastroenteritis Viral Adenovirus 10/20/2008 ISAIAS VALENZUELA MD 008.62 Gastroenteritis Viral Adenovirus 10/20/2008 QUINTEN LERMA APRNNDA S 008.62 Gastroenteritis Viral Adenovirus 10/20/2008 QUINTEN LERMA APRNNDA S 008.62 Gastroenteritis Viral Adenovirus 10/20/2008 QUINTEN LERMA APRNNDA S 008.62 Gastroenteritis Viral Adenovirus 10/20/2008 QUINTEN LERMA APRNNDA S 008.62 Gastroenteritis Viral Adenovirus 10/20/2008 QUINTEN LERMA APRNNDA S 008.62 Gastroenteritis Viral Adenovirus 10/20/2008 CATHERINE PERALES APRN 008.62 Gastroenteritis Viral Adenovirus 10/20/2008 QUINTEN LERMA APRNNDA S 008.62 Gastroenteritis Viral Adenovirus 10/20/2008 QUINTEN LERMA APRNNDA S 008.62 Gastroenteritis Viral Adenovirus 10/20/2008 BRITNEY LERMA APRNA S 008.62 Gastroenteritis Viral Adenovirus 10/20/2008 QUINTEN LERMA APRNNDA S 008.62 Gastroenteritis Viral Adenovirus 10/20/2008 VELASQUEZ KAUR PSYD ANN L 008.62 Gastroenteritis Viral Adenovirus 10/20/2008 JEWELS ROMANO DO 008.62 Gastroenteritis Viral Adenovirus 10/20/2008 VELASQUEZ KAUR PSYD ANN L 008.62 Gastroenteritis Viral Adenovirus 10/20/2008 SYMONE POST APRN 008.62 Gastroenteritis Viral Adenovirus 10/20/2008 RICHARD PROJECT LANDSCAPE ARCHITECT, JEWELS 008.62 Gastroenteritis Viral Adenovirus 10/20/2008 RICHARD PROJECT LANDSCAPE ARCHITECT, JEWELS 008.62 Gastroenteritis Viral Adenovirus 10/20/2008 RICHARD PROJECT LANDSCAPE ARCHITECT, JEWELS 008.62 Gastroenteritis Viral Adenovirus 05/08/2009 JEWELS ROMANO DO K 461.1 ACUTE FRONTAL SINUSITIS 05/08/2009 JEWELS ROMANO DO K 719.49 PAIN IN JOINT, MULTIPLE SITES 05/08/2009 461.1 ACUTE FRONTAL SINUSITIS 05/08/2009 719.49 PAIN IN JOINT , MULTIPLE SITES 05/08/2009 461.1 ACUTE FRONTAL SINUSITIS 05/08/2009 719.49 PAIN IN JOINT , MULTIPLE SITES 05/08/2009 TON LERMA APRN S 461.1 Acute Frontal Sinusitis 05/08/2009 BRITNEY LERMA APRNA S 719.49 PAIN IN JOINT, MULTIPLE SITES 05/08/2009 MARJORIE STRONG APRN 461.1 Acute Frontal Sinusitis 05/08/2009 MARJORIE STRONG APRN 719.49 PAIN IN JOINT, MULTIPLE SITES 05/08/2009 461.1 Acute Frontal Sinusitis 05/08/2009 719.49 PAIN IN JOINT , MULTIPLE SITES 05/08/2009 461.1 Acute Frontal Sinusitis 05/08/2009 719.49 PAIN IN JOINT , MULTIPLE SITES 05/08/2009 461.1 Acute Frontal Sinusitis 05/08/2009 719.49 PAIN IN JOINT , MULTIPLE SITES 05/08/2009 BRITNEY LERMA APRNA S 461.1 Acute Frontal Sinusitis 05/08/2009 BRITNEY LERMA APRNA S 719.49 PAIN IN JOINT, MULTIPLE SITES 05/08/2009 MARIA GUADALUPE PROJECT LANDSCAPE ARCHITECT, TON S 461.1 Acute Frontal Sinusitis 05/08/2009 MARIA GUADALUPE PROJECT LANDSCAPE ARCHITECT, TON S 719.49 PAIN IN JOINT, MULTIPLE SITES 05/08/2009 ISAIAS VALENZUELA MD 461.1 Acute Frontal Sinusitis 05/08/2009 ISAIAS VALENZUELA MD 719.49 PAIN IN JOINT, MULTIPLE SITES 05/08/2009 MARIA GUADALUPE PROJECT LANDSCAPE ARCHITECT, TON S 461.1 Acute Frontal Sinusitis 05/08/2009 MARIA GUADALUPE PROJECT LANDSCAPE ARCHITECT, TON S 719.49 PAIN IN JOINT, MULTIPLE SITES 05/08/2009 MARIA GUADALUPE PROJECT LANDSCAPE ARCHITECT, TON S 461.1 Acute Frontal Sinusitis 05/08/2009 MARIA GUADALUPE PROJECT LANDSCAPE ARCHITECT, TON S 719.49 PAIN IN JOINT, MULTIPLE SITES 05/08/2009 MARIA GUADALUPE PROJECT LANDSCAPE ARCHITECT, TON S 461.1 Acute Frontal Sinusitis 05/08/2009 MARIA GUADALUPE PROJECT LANDSCAPE ARCHITECT, TON S 719.49 PAIN IN JOINT, MULTIPLE SITES 05/08/2009 MARIA GUADALUPE PROJECT LANDSCAPE ARCHITECT, TON S 461.1 Acute Frontal Sinusitis 05/08/2009 MARIA GUADALUPE PROJECT LANDSCAPE ARCHITECT, TON S 719.49 PAIN IN JOINT, MULTIPLE SITES 05/08/2009 MARIA GUADALUPE PROJECT LANDSCAPE ARCHITECT, TON S 461.1 Acute Frontal Sinusitis 05/08/2009 MARIA GUADALUPE PROJECT LANDSCAPE ARCHITECT, TON S 719.49 PAIN IN JOINT, MULTIPLE SITES 05/08/2009 DIAZ PROJECT LANDSCAPE ARCHITECT, CATHERINE T 461.1 Acute Frontal Sinusitis 05/08/2009 DIAZ PROJECT LANDSCAPE ARCHITECTCATHERINE 719.49 PAIN IN JOINT, MULTIPLE SITES 05/08/2009 MARIA GUADALUPE PROJECT LANDSCAPE ARCHITECT, TON S 461.1 Acute Frontal Sinusitis 05/08/2009 MARIA GUADALUPE PROJECT LANDSCAPE ARCHITECT, TON S 719.49 PAIN IN JOINT, MULTIPLE SITES 05/08/2009 MARIA GUADALUPE PROJECT LANDSCAPE ARCHITECT, TON S 461.1 Acute Frontal Sinusitis 05/08/2009 MARIA GUADALUPE PROJECT LANDSCAPE ARCHITECT, TON S 719.49 PAIN IN JOINT, MULTIPLE SITES 05/08/2009 MARIA GUADALUPE PROJECT LANDSCAPE ARCHITECT, TON S 461.1 Acute Frontal Sinusitis 05/08/2009 MARIA GUADALUPE PROJECT LANDSCAPE ARCHITECT, TON S 719.49 PAIN IN JOINT, MULTIPLE SITES 05/08/2009 BRITNEY LERMA APRNA S 461.1 Acute Frontal Sinusitis 05/08/2009 QUINTEN LERMA APRNNDA S 719.49 PAIN IN JOINT, MULTIPLE SITES 05/08/2009 VELASQUEZ KAUR PSYD ANN L 461.1 Acute Frontal Sinusitis 05/08/2009 VELASQUEZ KAUR PSYD ANN L 719.49 PAIN IN JOINT, MULTIPLE SITES 05/08/2009 ROMANO DOSACHAA K 461.1 Acute Frontal Sinusitis 05/08/2009 ROMANO DOSACHAA K 719.49 PAIN IN JOINT, MULTIPLE SITES 05/08/2009 VELASQUEZ KAUR PSYD ANN L 461.1 Acute Frontal Sinusitis 05/08/2009 VELASQUEZ KAUR PSYD ANN L 719.49 PAIN IN JOINT, MULTIPLE SITES 05/08/2009 POST SYMONE VAUGHN 461.1 Acute Frontal Sinusitis 05/08/2009 POST SYMONE VAUGHN 719.49 PAIN IN JOINT, MULTIPLE SITES 05/08/2009 RICHARD PROJECT LANDSCAPE ARCHITECT, JEWELS 461.1 Acute Frontal Sinusitis 05/08/2009 RICHARD PROJECT LANDSCAPE ARCHITECT, JEWELS 719.49 PAIN IN JOINT, MULTIPLE SITES 05/08/2009 RICHARD PROJECT LANDSCAPE ARCHITECT, JEWELS 461.1 Acute Frontal Sinusitis 05/08/2009 RICHARD PROJECT LANDSCAPE ARCHITECT, JEWELS 719.49 PAIN IN JOINT, MULTIPLE SITES 05/08/2009 RICHARD PROJECT LANDSCAPE ARCHITECT, JEWELS 461.1 Acute Frontal Sinusitis 05/08/2009 RICHRAD PROJECT LANDSCAPE ARCHITECT, JEWELS 719.49 PAIN IN JOINT, MULTIPLE SITES 05/24/2009 JEWELS ROMANO DO K 465.9 UPPER RESPIRATORY INFECTION 05/24/2009 465.9 UPPER RESPIRATORY INFECTION 05/24/2009 465.9 UPPER RESPIRATORY INFECTION 05/24/2009 TON LERMA APRN S 465.9 Upper Respiratory Infection 05/24/2009 MARJORIE STRONG APRN 465.9 Upper Respiratory Infection 05/24/2009 465.9 Upper Respiratory Infection 05/24/2009 465.9 Upper Respiratory Infection 05/24/2009 465.9 Upper Respiratory Infection 05/24/2009 BRITNEY LERMA APRNA S 465.9 Upper Respiratory Infection 05/24/2009 MARIA GUADALUPE PROJECT LANDSCAPE ARCHITECT, TON S 465.9 Upper Respiratory Infection 05/24/2009 BIANCA SHAH, ISAIAS 465.9 Upper Respiratory Infection 05/24/2009 MARIA GUADALUPE PROJECT LANDSCAPE ARCHITECT, TON S 465.9 Upper Respiratory Infection 05/24/2009 MARIA GUADALUPE PROJECT LANDSCAPE ARCHITECT, TON S 465.9 Upper Respiratory Infection 05/24/2009 MARIA GUADALUPE PROJECT LANDSCAPE ARCHITECT, TON S 465.9 Upper Respiratory Infection 05/24/2009 MARIA GUADALUPE PROJECT LANDSCAPE ARCHITECT, TON S 465.9 Upper Respiratory Infection 05/24/2009 MARIA GUADALUPE PROJECT LANDSCAPE ARCHITECT, TON S 465.9 Upper Respiratory Infection 05/24/2009 DIAZ PROJECT LANDSCAPE ARCHITECT, CATHERINE T 465.9 Upper Respiratory Infection 05/24/2009 MARIA GUADALUPE PROJECT LANDSCAPE ARCHITECT, TON S 465.9 Upper Respiratory Infection 05/24/2009 MARIA GUADALUPE PROJECT LANDSCAPE ARCHITECT, TON S 465.9 Upper Respiratory Infection 05/24/2009 MARIA GUADALUPE PROJECT LANDSCAPE ARCHITECT, TON S 465.9 Upper Respiratory Infection 05/24/2009 MARIA GUADALUPE PROJECT LANDSCAPE ARCHITECT, TON S 465.9 Upper Respiratory Infection 05/24/2009 VELASQUEZ KAUR PSYD L 465.9 Upper Respiratory Infection 05/24/2009 JEWELS ROMANO DO 465.9 Upper Respiratory Infection 05/24/2009 VELASQUEZ KAUR PSYD L 465.9 Upper Respiratory Infection 05/24/2009 SYMONE POST APRN 465.9 Upper Respiratory Infection 05/24/2009 RICHARD PROJECT LANDSCAPE ARCHITECT, JEWELS 465.9 Upper Respiratory Infection 05/24/2009 RICHARD PROJECT LANDSCAPE ARCHITECT, JEWELS 465.9 Upper Respiratory Infection 05/24/2009 RICHARD PROJECT LANDSCAPE ARCHITECT, JEWELS 465.9 Upper Respiratory Infection 06/01/2009 JEWELS ROMANO DO 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 OF DRUGS, TOBACCO USE DISORDER 06/01/2009 JEWELS ROMANO DO 401.1 HYPERTENSION, BENIGN ESSENTIAL 06/01/2009 JEWELS ROMANO DO 786.59 OTHER CHEST PAIN 06/01/2009 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 OF DRUGS, TOBACCO USE DISORDER 06/01/2009 401.1 HYPERTENSION, BENIGN ESSENTIAL 06/01/2009 786.59 OTHER CHEST PAIN 06/01/2009 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 OF DRUGS, TOBACCO USE DISORDER 06/01/2009 401.1 HYPERTENSION, BENIGN ESSENTIAL 06/01/2009 786.59 OTHER CHEST PAIN 06/01/2009 MARIA GUADALUPE VAUGHN, TON S 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 OF DRUGS, TOBACCO USE DISORDER 06/01/2009 MARIA GUADALUPE VAUGHN, TON S 401.1 HYPERTENSION, BENIGN ESSENTIAL 06/01/2009 MARIA GUADALUPE VAUGHN, TON S 786.59 Other Chest Pain 06/01/2009 TAE PROJECT LANDSCAPE ARCHITECTMARJORIE M 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 OF DRUGS, TOBACCO USE DISORDER 06/01/2009 TAE VAUGHNMARJORIE M 401.1 HYPERTENSION, BENIGN ESSENTIAL 06/01/2009 STRONG PROJECT LANDSCAPE ARCHITECT, MARJORIE M 786.59 Other Chest Pain 06/01/2009 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 OF DRUGS, TOBACCO USE DISORDER 06/01/2009 401.1 HYPERTENSION, BENIGN ESSENTIAL 06/01/2009 786.59 Other Chest Pain 06/01/2009 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 OF DRUGS, TOBACCO USE DISORDER 06/01/2009 401.1 HYPERTENSION, BENIGN ESSENTIAL 06/01/2009 786.59 Other Chest Pain 06/01/2009 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 OF DRUGS, TOBACCO USE DISORDER 06/01/2009 401.1 HYPERTENSION, BENIGN ESSENTIAL 06/01/2009 786.59 Other Chest Pain 06/01/2009 MARIA GUADALUPE VAUGHN, TON S 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 OF DRUGS, TOBACCO USE DISORDER 06/01/2009 MARIA GUADALUPE VAUGHN, TON S 401.1 HYPERTENSION, BENIGN ESSENTIAL 06/01/2009 MARIA GUADALUPE VAUGHN, TON S 786.59 Other Chest Pain 06/01/2009 QUINTEN LERMA APRNNDA S 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 OF DRUGS, TOBACCO USE DISORDER 06/01/2009 MARIA GUADALUPE VAUGHN, TON S 401.1 HYPERTENSION, BENIGN ESSENTIAL 06/01/2009 MARIA GUADALUPE VAUGHN, TON S 786.59 Other Chest Pain 06/01/2009 ISAIAS VALENZUELA MD 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 OF DRUGS, TOBACCO USE DISORDER 06/01/2009 ISAIAS VALENZUELA MD 401.1 HYPERTENSION, BENIGN ESSENTIAL 06/01/2009 ISAIAS VALENZUELA MD 786.59 Other Chest Pain 06/01/2009 MARIA GUADALUPE VAUGHN, TON S 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 OF DRUGS, TOBACCO USE DISORDER 06/01/2009 MARIA GUADALUPE PROJECT LANDSCAPE ARCHITECT, TON S 401.1 HYPERTENSION, BENIGN ESSENTIAL 06/01/2009 MARIA GUADALUPE PROJECT LANDSCAPE ARCHITECT, TON S 786.59 Other Chest Pain 06/01/2009 MARIA GUADALUPE PROJECT LANDSCAPE ARCHITECT, TON S 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 OF DRUGS, TOBACCO USE DISORDER 06/01/2009 MARIA GUADALUPE PROJECT LANDSCAPE ARCHITECT, TON S 401.1 HYPERTENSION, BENIGN ESSENTIAL 06/01/2009 MARIA GUADALUPE PROJECT LANDSCAPE ARCHITECT, TON S 786.59 Other Chest Pain 06/01/2009 MARIA GUADALUPE PROJECT LANDSCAPE ARCHITECT, TON S 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 OF DRUGS, TOBACCO USE DISORDER 06/01/2009 MARIA GUADALUPE PROJECT LANDSCAPE ARCHITECT, TON S 401.1 HYPERTENSION, BENIGN ESSENTIAL 06/01/2009 MARIA GUADALUPE PROJECT LANDSCAPE ARCHITECT, TON S 786.59 Other Chest Pain 06/01/2009 MARIA GUADALUPE PROJECT LANDSCAPE ARCHITECT, TON S 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 OF DRUGS, TOBACCO USE DISORDER 06/01/2009 MARIA GUADALUPE PROJECT LANDSCAPE ARCHITECT, TON S 401.1 HYPERTENSION, BENIGN ESSENTIAL 06/01/2009 MARIA GUADALUPE PROJECT LANDSCAPE ARCHITECT, TON S 786.59 Other Chest Pain 06/01/2009 MARIA GUADALUPE PROJECT LANDSCAPE ARCHITECT, TON S 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 OF DRUGS, TOBACCO USE DISORDER 06/01/2009 MARIA GUADALUPE PROJECT LANDSCAPE ARCHITECT, TON S 401.1 HYPERTENSION, BENIGN ESSENTIAL 06/01/2009 MARIA GUADALUPE PROJECT LANDSCAPE ARCHITECT, TON S 786.59 Other Chest Pain 06/01/2009 CATHERINE PERALES APRN T 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 OF DRUGS, TOBACCO USE DISORDER 06/01/2009 CATHERINE PERALES APRN T 401.1 HYPERTENSION, BENIGN ESSENTIAL 06/01/2009 CATHERINE PERALES APRN T 786.59 Other Chest Pain 06/01/2009 MARIA GUADALUPE PROJECT LANDSCAPE ARCHITECT, TON S 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 OF DRUGS, TOBACCO USE DISORDER 06/01/2009 MARIA GUADALUPE PROJECT LANDSCAPE ARCHITECT, TON S 401.1 HYPERTENSION, BENIGN ESSENTIAL 06/01/2009 MARIA GUADALUPE PROJECT LANDSCAPE ARCHITECT, TON S 786.59 Other Chest Pain 06/01/2009 MARIA GUADALUPE PROJECT LANDSCAPE ARCHITECT, TON S 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 OF DRUGS, TOBACCO USE DISORDER 06/01/2009 MARIA GUADALUPE PROJECT LANDSCAPE ARCHITECT, TON S 401.1 HYPERTENSION, BENIGN ESSENTIAL 06/01/2009 MARIA GUADALUPE PROJECT LANDSCAPE ARCHITECT, TON S 786.59 Other Chest Pain 06/01/2009 MARIA GUADALUPE PROJECT LANDSCAPE ARCHITECT, TON S 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 OF DRUGS, TOBACCO USE DISORDER 06/01/2009 MARIA GUADALUPE PROJECT LANDSCAPE ARCHITECT, TON S 401.1 HYPERTENSION, BENIGN ESSENTIAL 06/01/2009 MARIA GUADALUPE PROJECT LANDSCAPE ARCHITECT, TON S 786.59 Other Chest Pain 06/01/2009 MARIA GUADALUPE PROJECT LANDSCAPE ARCHITECT, TON S 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 OF DRUGS, TOBACCO USE DISORDER 06/01/2009 MARIA GUADALUPE PROJECT LANDSCAPE ARCHITECT, TON S 401.1 HYPERTENSION, BENIGN ESSENTIAL 06/01/2009 MARIA GUADALUPE PROJECT LANDSCAPE ARCHITECT, TON S 786.59 Other Chest Pain 06/01/2009 VELASQUEZ KAUR PSYD L 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 OF DRUGS, TOBACCO USE DISORDER 06/01/2009 VELASQUEZ KAUR PSYD L 401.1 HYPERTENSION, BENIGN ESSENTIAL 06/01/2009 VELASQUEZ KAUR PSYD L 786.59 Other Chest Pain 06/01/2009 ROMANO DO JEWELS K 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 OF DRUGS, TOBACCO USE DISORDER 06/01/2009 JUAN ANTONIO DOSACHAA K 401.1 HYPERTENSION, BENIGN ESSENTIAL 06/01/2009 ROMANO DO JEWELS K 786.59 Other Chest Pain 06/01/2009 VELASQUEZ KAUR PSYD L 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 OF DRUGS, TOBACCO USE DISORDER 06/01/2009 VELASQUEZ KAUR PSYD L 401.1 HYPERTENSION, BENIGN ESSENTIAL 06/01/2009 VELASQUEZ KAUR PSYD L 786.59 Other Chest Pain 06/01/2009 SYMONE POST APRN 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 OF DRUGS, TOBACCO USE DISORDER 06/01/2009 SYMONE POST APRN 401.1 HYPERTENSION, BENIGN ESSENTIAL 06/01/2009 SYMONE POST APRN 786.59 Other Chest Pain 06/01/2009 RICHARD VAUGHN JEWELS 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 OF DRUGS, TOBACCO USE DISORDER 06/01/2009 RICHARD VAUGHN JEWELS 401.1 HYPERTENSION, BENIGN ESSENTIAL 06/01/2009 RICHARD VAUGHN JEWELS 786.59 Other Chest Pain 06/01/2009 RICHARD VAUGHN JEWELS 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 OF DRUGS, TOBACCO USE DISORDER 06/01/2009 RICHARD PROJECT LANDSCAPE ARCHITECT, JEWELS 401.1 HYPERTENSION, BENIGN ESSENTIAL 06/01/2009 RICHARD PROJECT LANDSCAPE ARCHITECT, JEWELS 786.59 Other Chest Pain 06/01/2009 RICHARD PROJECT LANDSCAPE ARCHITECT, JEWELS 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 OF DRUGS, TOBACCO USE DISORDER 06/01/2009 RICHARD PROJECT LANDSCAPE ARCHITECT, JEWELS 401.1 HYPERTENSION, BENIGN ESSENTIAL 06/01/2009 RICHARD PROJECT LANDSCAPE ARCHITECT, JEWELS 786.59 Other Chest Pain 06/18/2009 JEWELS ROMANO DO 787.02 NAUSEA ALONE 06/18/2009 787.02 NAUSEA ALONE 06/18/2009 787.02 NAUSEA ALONE 06/18/2009 QUINTEN LERMA APRNNDA S 787.02 Nausea Alone 06/18/2009 MARJORIE STRONG APRN 787.02 Nausea Alone 06/18/2009 787.02 Nausea Alone 06/18/2009 787.02 Nausea Alone 06/18/2009 787.02 Nausea Alone 06/18/2009 MARIA GUADALUPE VAUGHN, TON S 787.02 Nausea Alone 06/18/2009 MARIA GUADALUPE VAUGHN, TON S 787.02 Nausea Alone 06/18/2009 ISAIAS VALENZUELA MD 787.02 Nausea Alone 06/18/2009 MARIA GUADALUPE PROJECT LANDSCAPE ARCHITECT, TON S 787.02 Nausea Alone 06/18/2009 MARIA GUADALUPE PROJECT LANDSCAPE ARCHITECT, TON S 787.02 Nausea Alone 06/18/2009 MARIA GUADALUPE VAUGHN, TON S 787.02 Nausea Alone 06/18/2009 MARIA GUADALUPE VAUGHN, TON S 787.02 Nausea Alone 06/18/2009 MARIA GUADALUPEAGRY VAUGHN, TON S 787.02 Nausea Alone 06/18/2009 CATHERINE PERALES APRN 787.02 Nausea Alone 06/18/2009 MARIA GUADALUPE PROJECT LANDSCAPE ARCHITECT, TON S 787.02 Nausea Alone 06/18/2009 MARIA GUADALUPE PROJECT LANDSCAPE ARCHITECT, TON S 787.02 Nausea Alone 06/18/2009 MARI AGUADALUPE PROJECT LANDSCAPE ARCHITECT, TON S 787.02 Nausea Alone 06/18/2009 MARIA GUADALUPE VAUGHN, TON S 787.02 Nausea Alone 06/18/2009 VELASQUEZ KAUR PSYD 787.02 Nausea Alone 06/18/2009 ROMANO DO, JEWELS Bowen 787.02 Nausea Alone 06/18/2009 NATASHA PERALES, VELASQUEZ WILSON L 787.02 Nausea Alone 06/18/2009 SEJAL PROJECT LANDSCAPE ARCHITECTSYMONE Ramos 787.02 Nausea Alone 06/18/2009 RICHARD PROJECT LANDSCAPE ARCHITECT, JEWELS 787.02 Nausea Alone 06/18/2009 RICHARD PROJECT LANDSCAPE ARCHITECT, JEWELS 787.02 Nausea Alone 06/18/2009 RICHARD PROJECT LANDSCAPE ARCHITECT, JEWELS 787.02 Nausea Alone 07/25/2009 ROMANO DO, JEWELS Bowen 493.90 ASTHMA, UNSPECIFIED, UNSPECIFIED 07/25/2009 493.90 ASTHMA, UNSPECIFIED, UNSPECIFIED 07/25/2009 493.90 ASTHMA, UNSPECIFIED, UNSPECIFIED 07/25/2009 MARIA GUADALUPE PROJECT LANDSCAPE ARCHITECT, TON S 493.90 ASTHMA, UNSPECIFIED, UNSPECIFIED 07/25/2009 MARJORIE STRONG APRN 493.90 ASTHMA, UNSPECIFIED, UNSPECIFIED 07/25/2009 493.90 ASTHMA, UNSPECIFIED, UNSPECIFIED 07/25/2009 493.90 ASTHMA, UNSPECIFIED, UNSPECIFIED 07/25/2009 493.90 ASTHMA, UNSPECIFIED, UNSPECIFIED 07/25/2009 MARIA GUADALUPE PROJECT LANDSCAPE ARCHITECT, TON S 493.90 ASTHMA, UNSPECIFIED, UNSPECIFIED 07/25/2009 MARIA GUADALUPE PROJECT LANDSCAPE ARCHITECT, TON S 493.90 ASTHMA, UNSPECIFIED, UNSPECIFIED 07/25/2009 BIANCA SHAH, ISAIAS 493.90 ASTHMA, UNSPECIFIED, UNSPECIFIED 07/25/2009 MARIA GUADALUPE PROJECT LANDSCAPE ARCHITECT, TON S 493.90 ASTHMA, UNSPECIFIED, UNSPECIFIED 07/25/2009 MARIA GUADALUPE PROJECT LANDSCAPE ARCHITECT, TON S 493.90 ASTHMA, UNSPECIFIED, UNSPECIFIED 07/25/2009 MARIA GUADALUPE PROJECT LANDSCAPE ARCHITECT, TON S 493.90 ASTHMA, UNSPECIFIED, UNSPECIFIED 07/25/2009 MARIA GUADALUPE PROJECT LANDSCAPE ARCHITECT, TON S 493.90 ASTHMA, UNSPECIFIED, UNSPECIFIED 07/25/2009 MARIA GUADALUPE PROJECT LANDSCAPE ARCHITECT, TON S 493.90 ASTHMA, UNSPECIFIED, UNSPECIFIED 07/25/2009 CATHERINE PERALES APRN 493.90 ASTHMA, UNSPECIFIED, UNSPECIFIED 07/25/2009 MARIA GUADALUPE PROJECT LANDSCAPE ARCHITECT, TON S 493.90 ASTHMA, UNSPECIFIED, UNSPECIFIED 07/25/2009 MARIA GUADALUPE PROJECT LANDSCAPE ARCHITECT, TON S 493.90 ASTHMA, UNSPECIFIED, UNSPECIFIED 07/25/2009 MARIA GUADALUPE PROJECT LANDSCAPE ARCHITECT, TON S 493.90 ASTHMA, UNSPECIFIED, UNSPECIFIED 07/25/2009 MARIA GUADALUPE PROJECT LANDSCAPE ARCHITECT, TON S 493.90 ASTHMA, UNSPECIFIED, UNSPECIFIED 07/25/2009 VELASQUEZ KAUR PSYD 493.90 ASTHMA, UNSPECIFIED, UNSPECIFIED 07/25/2009 JEWELS ROMANO DO 493.90 ASTHMA, UNSPECIFIED, UNSPECIFIED 07/25/2009 VELASQUEZ KAUR PSYD 493.90 ASTHMA, UNSPECIFIED, UNSPECIFIED 07/25/2009 SEJAL PROJECT LANDSCAPE ARCHITECTSYMONE Ramos 493.90 ASTHMA, UNSPECIFIED, UNSPECIFIED 07/25/2009 RICHARD PROJECT LANDSCAPE ARCHITECT, JEWELS 493.90 ASTHMA, UNSPECIFIED, UNSPECIFIED 07/25/2009 RICHARD PROJECT LANDSCAPE ARCHITECT, JEWELS 493.90 ASTHMA, UNSPECIFIED, UNSPECIFIED 07/25/2009 RICHARD PROJECT LANDSCAPE ARCHITECT, JEWELS 493.90 ASTHMA, UNSPECIFIED, UNSPECIFIED 12/27/2009 JEWELS ROMANO DO 112.3 CANDIDIASIS, OF SKIN AND NAILS 12/27/2009 JEWELS ROMANO DO 780.79 fatigue 12/27/2009 JEWELS ROMANO DO V18.0 FAM HX DIABETES MELLITUS 12/27/2009 112.3 CANDIDIASIS, OF SKIN AND NAILS 12/27/2009 780.79 fatigue 12/27/2009 V18.0 FAM HX DIABETES MELLITUS 12/27/2009 112.3 CANDIDIASIS, OF SKIN AND NAILS 12/27/2009 780.79 fatigue 12/27/2009 V18.0 FAM HX DIABETES MELLITUS 12/27/2009 MARIA GUADALUPE VAUGHN, TON S 112.3 Candidiasis, Of Skin And Nails 12/27/2009 MARIA GUADALUPE VAUGHN, TON S 780.79 fatigue 12/27/2009 MARIA GUADALUPE VAUGHN, TON S V18.0 FAM HX DIABETES MELLITUS 12/27/2009 MARJORIE STRONG APRN 112.3 Candidiasis, Of Skin And Nails 12/27/2009 MARJORIE STRONG APRN 780.79 fatigue 12/27/2009 MARJORIE STRONG APRN V18.0 FAM HX DIABETES MELLITUS 12/27/2009 112.3 Candidiasis, Of Skin And Nails 12/27/2009 780.79 fatigue 12/27/2009 V18.0 FAM HX DIABETES MELLITUS 12/27/2009 112.3 Candidiasis, Of Skin And Nails 12/27/2009 780.79 fatigue 12/27/2009 V18.0 FAM HX DIABETES MELLITUS 12/27/2009 112.3 Candidiasis, Of Skin And Nails 12/27/2009 780.79 fatigue 12/27/2009 V18.0 FAM HX DIABETES MELLITUS 12/27/2009 MARIA GUADALUPE PROJECT LANDSCAPE ARCHITECT, TON S 112.3 Candidiasis, Of Skin And Nails 12/27/2009 MARIA GUADALUPE PROJECT LANDSCAPE ARCHITECT, TON S 780.79 fatigue 12/27/2009 MARIA GUADALUPE PROJECT LANDSCAPE ARCHITECT, TON S V18.0 FAM HX DIABETES MELLITUS 12/27/2009 MARIA GUADALUPE PROJECT LANDSCAPE ARCHITECT, TON S 112.3 Candidiasis, Of Skin And Nails 12/27/2009 MARIA GUADALUPE PROJECT LANDSCAPE ARCHITECT, TON S 780.79 fatigue 12/27/2009 MARIA GUADALUPE PROJECT LANDSCAPE ARCHITECT, TON S V18.0 FAM HX DIABETES MELLITUS 12/27/2009 ISAIAS VALENZUELA MD 112.3 Candidiasis, Of Skin And Nails 12/27/2009 ISAIAS VALENZUELA MD 780.79 fatigue 12/27/2009 ISAIAS VALENZUELA MD V18.0 FAM HX DIABETES MELLITUS 12/27/2009 MARIA GUADALUPE PROJECT LANDSCAPE ARCHITECT, TON S 112.3 Candidiasis, Of Skin And Nails 12/27/2009 MARIA GUADALUPE PROJECT LANDSCAPE ARCHITECT, TON S 780.79 fatigue 12/27/2009 MARIA GUADALUPE PROJECT LANDSCAPE ARCHITECT, TON S V18.0 FAM HX DIABETES MELLITUS 12/27/2009 MARIA GUADALUPE PROJECT LANDSCAPE ARCHITECT, TON S 112.3 Candidiasis, Of Skin And Nails 12/27/2009 MARIA GUADALUPE PROJECT LANDSCAPE ARCHITECT, TON S 780.79 fatigue 12/27/2009 MARIA GUADALUPE PROJECT LANDSCAPE ARCHITECT, TON S V18.0 FAM HX DIABETES MELLITUS 12/27/2009 MARIA GUADALUPE PROJECT LANDSCAPE ARCHITECT, TON S 112.3 Candidiasis, Of Skin And Nails 12/27/2009 MARIA GUADALUPE PROJECT LANDSCAPE ARCHITECT, TON S 780.79 FATIGUE 12/27/2009 MARIA GUADALUPE PROJECT LANDSCAPE ARCHITECT, TON S V18.0 FAM HX DIABETES MELLITUS 12/27/2009 MARIA GUADALUPE PROJECT LANDSCAPE ARCHITECT, TON S 112.3 Candidiasis, Of Skin And Nails 12/27/2009 MARIA GUADALUPE PROJECT LANDSCAPE ARCHITECT, TON S 780.79 FATIGUE 12/27/2009 MARIA GUADALUPE PROJECT LANDSCAPE ARCHITECT, TON S V18.0 FAM HX DIABETES MELLITUS 12/27/2009 MARIA GUADALUPE PROJECT LANDSCAPE ARCHITECT, TON S 112.3 Candidiasis, Of Skin And Nails 12/27/2009 MARIA GUADALUPE PROJECT LANDSCAPE ARCHITECT, TON S 780.79 FATIGUE 12/27/2009 MARIA GUADALUPE PROJECT LANDSCAPE ARCHITECT, TON S V18.0 FAM HX DIABETES MELLITUS 12/27/2009 CATHERINE PERALES APRN T 112.3 Candidiasis, Of Skin And Nails 12/27/2009 DIAZ CHAUDHARINCATHERINE T 780.79 FATIGUE 12/27/2009 DIAZ CHAUDHARINCATHERINE T V18.0 FAM HX DIABETES MELLITUS 12/27/2009 MARIA GUADALUPE PROJECT LANDSCAPE ARCHITECT, TON S 112.3 Candidiasis, Of Skin And Nails 12/27/2009 MARIA GUADALUPE PROJECT LANDSCAPE ARCHITECT, TON S 780.79 FATIGUE 12/27/2009 MARIA GUADALUPE PROJECT LANDSCAPE ARCHITECT, TON S V18.0 FAM HX DIABETES MELLITUS 12/27/2009 MARIA GUADALUPE PROJECT LANDSCAPE ARCHITECT, TON S 112.3 Candidiasis, Of Skin And Nails 12/27/2009 MARIA GUADALUPE PROJECT LANDSCAPE ARCHITECT, TON S 780.79 FATIGUE 12/27/2009 MARIA GUADALUPE PROJECT LANDSCAPE ARCHITECT, TON S V18.0 FAM HX DIABETES MELLITUS 12/27/2009 MARIA GUADALUPE PROJECT LANDSCAPE ARCHITECT, TON S 112.3 Candidiasis, Of Skin And Nails 12/27/2009 MARIA GUADALUPE PROJECT LANDSCAPE ARCHITECT, TON S 780.79 FATIGUE 12/27/2009 MARIA GUADALUPE PROJECT LANDSCAPE ARCHITECT, TON S V18.0 FAM HX DIABETES MELLITUS 12/27/2009 MARIA GUADALUPE PROJECT LANDSCAPE ARCHITECT, TON S 112.3 Candidiasis, Of Skin And Nails 12/27/2009 MARIA GUADALUPE PROJECT LANDSCAPE ARCHITECT, TON S 780.79 FATIGUE 12/27/2009 MARIA GUADALUPE PROJECT LANDSCAPE ARCHITECT, TON S V18.0 FAM HX DIABETES MELLITUS 12/27/2009 VELASQUEZ KAUR PSYD 112.3 Candidiasis, Of Skin And Nails 12/27/2009 VELASQUEZ KAUR PSYD L 780.79 FATIGUE 12/27/2009 VELASQUEZ KAUR PSYD L V18.0 FAM HX DIABETES MELLITUS 12/27/2009 JEWELS ROMANO DO 112.3 Candidiasis, Of Skin And Nails 12/27/2009 JEWELS ROMANO DO 780.79 FATIGUE 12/27/2009 JEWELS ROMANO DO V18.0 FAM HX DIABETES MELLITUS 12/27/2009 VELASQUEZ KAUR PSYD L 112.3 Candidiasis, Of Skin And Nails 12/27/2009 VELASQUEZ KAUR PSYD L 780.79 FATIGUE 12/27/2009 VELASQUEZ KAUR PSYD ANN L V18.0 FAM HX DIABETES MELLITUS 12/27/2009 SYMONE POST APRN 112.3 Candidiasis, Of Skin And Nails 12/27/2009 SYMONE POST APRN 780.79 FATIGUE 12/27/2009 SYMONE POST APRN V18.0 FAM HX DIABETES MELLITUS 12/27/2009 RICHARD PROJECT LANDSCAPE ARCHITECT, JEWELS 112.3 Candidiasis, Of Skin And Nails 12/27/2009 RICHARD VAUGHN JEWELS 780.79 FATIGUE 12/27/2009 RICHARD PROJECT LANDSCAPE ARCHITECT, JEWELS V18.0 FAM HX DIABETES MELLITUS 12/27/2009 RICHARD PROJECT LANDSCAPE ARCHITECT, JEWELS 112.3 Candidiasis, Of Skin And Nails 12/27/2009 RICHARD PROJECT LANDSCAPE ARCHITECT, JEWELS 780.79 FATIGUE 12/27/2009 RICHARD PROJECT LANDSCAPE ARCHITECT, JEWELS V18.0 FAM HX DIABETES MELLITUS 12/27/2009 RICHARD PROJECT LANDSCAPE ARCHITECT, JEWELS 112.3 Candidiasis, Of Skin And Nails 12/27/2009 RICHARD PROJECT LANDSCAPE ARCHITECT, JEWELS 780.79 FATIGUE 12/27/2009 RICHARD PROJECT LANDSCAPE ARCHITECT, JEWLES V18.0 FAM HX DIABETES MELLITUS 01/14/2010 JEWELS ROMANO DO 691.8 OTHER ATOPIC DERMATITIS AND RELATED CONDITIONS 01/14/2010 691.8 OTHER ATOPIC DERMATITIS AND RELATED CONDITIONS 01/14/2010 691.8 OTHER ATOPIC DERMATITIS AND RELATED CONDITIONS 01/14/2010 TON LERMA APRN 691.8 OTHER ATOPIC DERMATITIS AND RELATED CONDITIONS 01/14/2010 MARJORIE STRONG APRN 691.8 OTHER ATOPIC DERMATITIS AND RELATED CONDITIONS 01/14/2010 691.8 OTHER ATOPIC DERMATITIS AND RELATED CONDITIONS 01/14/2010 691.8 OTHER ATOPIC DERMATITIS AND RELATED CONDITIONS 01/14/2010 691.8 OTHER ATOPIC DERMATITIS AND RELATED CONDITIONS 01/14/2010 MARIA GUADALUPE PROJECT LANDSCAPE ARCHITECT, TON S 691.8 OTHER ATOPIC DERMATITIS AND RELATED CONDITIONS 01/14/2010 MARIA GUADALUPE PROJECT LANDSCAPE ARCHITECT, TON S 691.8 OTHER ATOPIC DERMATITIS AND RELATED CONDITIONS 01/14/2010 ISAIAS VALENZUELA MD 691.8 OTHER ATOPIC DERMATITIS AND RELATED CONDITIONS 01/14/2010 MARIA GUADALUPE PROJECT LANDSCAPE ARCHITECT, TON S 691.8 OTHER ATOPIC DERMATITIS AND RELATED CONDITIONS 01/14/2010 MARIA GUADALUPE PROJECT LANDSCAPE ARCHITECT, TON S 691.8 OTHER ATOPIC DERMATITIS AND RELATED CONDITIONS 01/14/2010 MARIA GUADALUPE PROJECT LANDSCAPE ARCHITECT, TON S 691.8 OTHER ATOPIC DERMATITIS AND RELATED CONDITIONS 01/14/2010 MARIA GUADALUPE PROJECT LANDSCAPE ARCHITECT, TON S 691.8 OTHER ATOPIC DERMATITIS AND RELATED CONDITIONS 01/14/2010 MARIA GUADALUPE PROJECT LANDSCAPE ARCHITECT, TON S 691.8 OTHER ATOPIC DERMATITIS AND RELATED CONDITIONS 01/14/2010 CATHERINE PERALES APRN 691.8 OTHER ATOPIC DERMATITIS AND RELATED CONDITIONS 01/14/2010 MARIA GUADALUPE PROJECT LANDSCAPE ARCHITECT, TON S 691.8 OTHER ATOPIC DERMATITIS AND RELATED CONDITIONS 01/14/2010 MARIA GUADALUPE PROJECT LANDSCAPE ARCHITECT, TON S 691.8 OTHER ATOPIC DERMATITIS AND RELATED CONDITIONS 01/14/2010 MARIA GUADALUPE PROJECT LANDSCAPE ARCHITECT, TON S 691.8 OTHER ATOPIC DERMATITIS AND RELATED CONDITIONS 01/14/2010 MARIA GUADALUPE PROJECT LANDSCAPE ARCHITECT, TON S 691.8 OTHER ATOPIC DERMATITIS AND RELATED CONDITIONS 01/14/2010 VELASQUEZ KAUR PSYD 691.8 OTHER ATOPIC DERMATITIS AND RELATED CONDITIONS 01/14/2010 JEWELS ROMANO DO 691.8 OTHER ATOPIC DERMATITIS AND RELATED CONDITIONS 01/14/2010 VELASQUEZ KAUR PSYD 691.8 OTHER ATOPIC DERMATITIS AND RELATED CONDITIONS 01/14/2010 SYMONE POST APRN 691.8 OTHER ATOPIC DERMATITIS AND RELATED CONDITIONS 01/14/2010 JEWELS RAMOS APRN 691.8 OTHER ATOPIC DERMATITIS AND RELATED CONDITIONS 01/14/2010 RICHARD VAUGHN JEWELS 691.8 OTHER ATOPIC DERMATITIS AND RELATED CONDITIONS 01/14/2010 RICHARD PROJECT LANDSCAPE ARCHITECT, JEWELS 691.8 OTHER ATOPIC DERMATITIS AND RELATED CONDITIONS 02/26/2010 JEWELS ROMANO DO 716.90 ARTHRITIS/ ARTHROPATHY, UNSPECIFIED 02/26/2010 716.90 ARTHRITIS/ ARTHROPATHY, UNSPECIFIED 02/26/2010 716.90 ARTHRITIS/ ARTHROPATHY, UNSPECIFIED 02/26/2010 MARIA GUADALUPE PROJECT LANDSCAPE ARCHITECT, TON S 716.90 ARTHRITIS/ ARTHROPATHY, UNSPECIFIED 02/26/2010 TAE CHAUDHARIN, MARJORIE Alfredo 716.90 ARTHRITIS/ ARTHROPATHY, UNSPECIFIED 02/26/2010 716.90 ARTHRITIS/ ARTHROPATHY, UNSPECIFIED 02/26/2010 716.90 ARTHRITIS/ ARTHROPATHY, UNSPECIFIED 02/26/2010 716.90 ARTHRITIS/ ARTHROPATHY, UNSPECIFIED 02/26/2010 MARIA GUADALUPE PROJECT LANDSCAPE ARCHITECT, TON S 716.90 ARTHRITIS/ ARTHROPATHY, UNSPECIFIED 02/26/2010 MARIA GUADALUPE PROJECT LANDSCAPE ARCHITECT, TON S 716.90 ARTHRITIS/ ARTHROPATHY, UNSPECIFIED 02/26/2010 BIANCA SHAH, ISAIAS 716.90 ARTHRITIS/ ARTHROPATHY, UNSPECIFIED 02/26/2010 MARIA GUADALUPE PROJECT LANDSCAPE ARCHITECT, TON S 716.90 ARTHRITIS/ ARTHROPATHY, UNSPECIFIED 02/26/2010 MARIA GUADALUPE PROJECT LANDSCAPE ARCHITECT, TON S 716.90 ARTHRITIS/ ARTHROPATHY, UNSPECIFIED 02/26/2010 MARIA GUADALUPE PROJECT LANDSCAPE ARCHITECT, TON S 716.90 ARTHRITIS/ ARTHROPATHY, UNSPECIFIED 02/26/2010 MARIA GUADALUPE PROJECT LANDSCAPE ARCHITECT, TON S 716.90 ARTHRITIS/ ARTHROPATHY, UNSPECIFIED 02/26/2010 MARIA GUADALUPE PROJECT LANDSCAPE ARCHITECT, TON S 716.90 ARTHRITIS/ ARTHROPATHY, UNSPECIFIED 02/26/2010 DIAZ CHAUDHARIN, CATHERINE Walker 716.90 ARTHRITIS/ ARTHROPATHY, UNSPECIFIED 02/26/2010 MARIA GUADALUPE PROJECT LANDSCAPE ARCHITECT, TON S 716.90 ARTHRITIS/ ARTHROPATHY, UNSPECIFIED 02/26/2010 MARIA GUADALUPE PROJECT LANDSCAPE ARCHITECT, TON S 716.90 ARTHRITIS/ ARTHROPATHY, UNSPECIFIED 02/26/2010 MARIA GUADALUPE PROJECT LANDSCAPE ARCHITECT, TON S 716.90 ARTHRITIS/ ARTHROPATHY, UNSPECIFIED 02/26/2010 MARIA GUADALUPE PROJECT LANDSCAPE ARCHITECT, TON S 716.90 ARTHRITIS/ ARTHROPATHY, UNSPECIFIED 02/26/2010 VELASQUEZ KAUR PSYD 716.90 ARTHRITIS/ ARTHROPATHY, UNSPECIFIED 02/26/2010 JEWELS ROMANO DO 716.90 ARTHRITIS/ ARTHROPATHY, UNSPECIFIED 02/26/2010 VELASQUEZ KAUR PSYD 716.90 ARTHRITIS/ ARTHROPATHY, UNSPECIFIED 02/26/2010 SYMONE POST APRN 716.90 ARTHRITIS/ ARTHROPATHY, UNSPECIFIED 02/26/2010 RICHARD PROJECT LANDSCAPE ARCHITECT, JEWELS 716.90 ARTHRITIS/ ARTHROPATHY, UNSPECIFIED 02/26/2010 RICHARD PROJECT LANDSCAPE ARCHITECT, JEWELS 716.90 ARTHRITIS/ ARTHROPATHY, UNSPECIFIED 02/26/2010 RICHARD PROJECT LANDSCAPE ARCHITECT, JEWELS 716.90 ARTHRITIS/ ARTHROPATHY, UNSPECIFIED 03/19/2010 JEWELS ROMANO DO K 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 03/19/2010 JEWELS ROMANO DO 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 03/19/2010 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 03/19/2010 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 03/19/2010 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 03/19/2010 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 03/19/2010 QUINTEN LERMA APRNNDA S 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 03/19/2010 MARIA GUADALUPE VAUGHN TON S 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 03/19/2010 MARJORIE STRONG APRN 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 03/19/2010 MARJORIE STRONG APRN 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 03/19/2010 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 03/19/2010 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 03/19/2010 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 03/19/2010 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 03/19/2010 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 03/19/2010 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 03/19/2010 MARIA GUADALUPE PROJECT LANDSCAPE ARCHITECT, TON S 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 03/19/2010 MARIA GUADALUPE PROJECT LANDSCAPE ARCHITECT, TON S 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 03/19/2010 MARIA GUADALUPE PROJECT LANDSCAPE ARCHITECT, TON S 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 03/19/2010 MARIA GUADALUPE PROJECT LANDSCAPE ARCHITECT, TON S 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 03/19/2010 ISAIAS VALENZUELA MD 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 03/19/2010 ISAIAS VALENZUELA MD 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 03/19/2010 MARIA GUADALUPE PROJECT LANDSCAPE ARCHITECT, TON S 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 03/19/2010 MARIA GUADALUPE PROJECT LANDSCAPE ARCHITECT, TON S 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 03/19/2010 MARIA GUADALUPE PROJECT LANDSCAPE ARCHITECT, TON S 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 03/19/2010 MARIA GUADALUPE PROJECT LANDSCAPE ARCHITECT, TON S 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 03/19/2010 MARIA GUADALUPE PROJECT LANDSCAPE ARCHITECT, TON S 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 03/19/2010 MARIA GUADALUPE PROJECT LANDSCAPE ARCHITECT, TON S 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 03/19/2010 MARIA GUADALUPE PROJECT LANDSCAPE ARCHITECT, TON S 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 03/19/2010 MARIA GUADALUPE PROJECT LANDSCAPE ARCHITECT, TON S 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 03/19/2010 MARIA GUADALUPE PROJECT LANDSCAPE ARCHITECT, TON S 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 03/19/2010 MARIA GUADALUPE PROJECT LANDSCAPE ARCHITECT, TON S 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 03/19/2010 DIAZ PROJECT LANDSCAPE ARCHITECT, CATHERINE T 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 03/19/2010 DIAZ PROJECT LANDSCAPE ARCHITECT, CATHERINE T 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 03/19/2010 MARIA GUADALUPE PROJECT LANDSCAPE ARCHITECT, TON S 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 03/19/2010 MARIA GUADALUPE PROJECT LANDSCAPE ARCHITECT, TON S 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 03/19/2010 MARIA GUADALUPE PROJECT LANDSCAPE ARCHITECT, TON S 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 03/19/2010 MARIA GUADALUPE PROJECT LANDSCAPE ARCHITECT, TON S 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 03/19/2010 MARIA GUADALUPE PROJECT LANDSCAPE ARCHITECT, TON S 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 03/19/2010 MARIA GUADALUPE PROJECT LANDSCAPE ARCHITECT, TON S 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 03/19/2010 MARIA GUADALUPE PROJECT LANDSCAPE ARCHITECT, TON S 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 03/19/2010 MARIA GUADALUPE PROJECT LANDSCAPE ARCHITECT, TON S 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 03/19/2010 VELASQUEZ KAUR PSYD ANN L 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 03/19/2010 VELASQUEZ KAUR PSYD ANN L 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 03/19/2010 SACHA ROMANO DOA K 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 03/19/2010 SACHA ROMANO DOA K 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 03/19/2010 VELASQUEZ KAUR PSYD ANN L 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 03/19/2010 VELASQUEZ KAUR PSYD ANN L 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 03/19/2010 POST SYMONE VAUGHN 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 03/19/2010 SYMONE POST APRN 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 03/19/2010 RICHARD PROJECT LANDSCAPE ARCHITECT, JEWELS 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 03/19/2010 RICHARD PROJECT LANDSCAPE ARCHITECT, JEWELS 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 03/19/2010 RICHARD PROJECT LANDSCAPE ARCHITECT, EJWELS 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 03/19/2010 RICHARD PROJECT LANDSCAPE ARCHITECT, JEWELS 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 03/19/2010 RICHARD PROJECT LANDSCAPE ARCHITECT, JEWELS 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 03/19/2010 RICHARD PROJECT LANDSCAPE ARCHITECT, JEWELS 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 03/26/2010 ROMANO DO, JEWELS K 729.5 limb pain 03/26/2010 ROMANO DO, JEWELS K V58.32 Removal Of Sutures 03/26/2010 729.5 limb pain 03/26/2010 V58.32 Removal Of Sutures 03/26/2010 729.5 limb pain 03/26/2010 V58.32 Removal Of Sutures 03/26/2010 MARIA GUADALUPE PROJECT LANDSCAPE ARCHITECT, TON S 729.5 limb pain 03/26/2010 MARIA GUADALUPE PROJECT LANDSCAPE ARCHITECT, TON S V58.32 Removal Of Sutures 03/26/2010 STRONG PROJECT LANDSCAPE ARCHITECTGEOFFREYON M 729.5 limb pain 03/26/2010 STRONG PROJECT LANDSCAPE ARCHITECT, MARJORIE M V58.32 Removal Of Sutures 03/26/2010 729.5 limb pain 03/26/2010 V58.32 Removal Of Sutures 03/26/2010 729.5 limb pain 03/26/2010 V58.32 Removal Of Sutures 03/26/2010 729.5 limb pain 03/26/2010 V58.32 Removal Of Sutures 03/26/2010 MARIA GUADALUPE PROJECT LANDSCAPE ARCHITECT, TON S 729.5 limb pain 03/26/2010 MARIA GUADALUPE PROJECT LANDSCAPE ARCHITECT, TON S V58.32 Removal Of Sutures 03/26/2010 MARIA GUADALUPE PROJECT LANDSCAPE ARCHITECT, TON S 729.5 limb pain 03/26/2010 MARIA GUADALUPE CHAUDHARIN, TON S V58.32 Removal Of Sutures 03/26/2010 ISAIAS VALENZUELA MD 729.5 limb pain 03/26/2010 ISAIAS VALENZUELA MD V58.32 Removal Of Sutures 03/26/2010 MARIA GUADALUPE PROJECT LANDSCAPE ARCHITECT, TON S 729.5 limb pain 03/26/2010 MARIA GUADALUPE PROJECT LANDSCAPE ARCHITECT, TON S V58.32 Removal Of Sutures 03/26/2010 MARIA GUADALUPE PROJECT LANDSCAPE ARCHITECT, TON S 729.5 limb pain 03/26/2010 MARIA GUADALUPE PROJECT LANDSCAPE ARCHITECT, TON S V58.32 Removal Of Sutures 03/26/2010 MARIA GUADALUPE PROJECT LANDSCAPE ARCHITECT, TON S 729.5 LIMB PAIN 03/26/2010 MARIA GUADALUPE PROJECT LANDSCAPE ARCHITECT, TON S V58.32 REMOVAL OF SUTURES 03/26/2010 MARIA GUADALUPE PROJECT LANDSCAPE ARCHITECT, TON S 729.5 LIMB PAIN 03/26/2010 MARIA GUADALUPE PROJECT LANDSCAPE ARCHITECT, TON S V58.32 REMOVAL OF SUTURES 03/26/2010 MARIA GUADALUPE PROJECT LANDSCAPE ARCHITECT, TON S 729.5 LIMB PAIN 03/26/2010 MARIA GUADALUPE PROJECT LANDSCAPE ARCHITECT, TON S V58.32 REMOVAL OF SUTURES 03/26/2010 DIAZ PROJECT LANDSCAPE ARCHITECT, CATHERINE T 729.5 LIMB PAIN 03/26/2010 DIAZ PROJECT LANDSCAPE ARCHITECT, CATHERINE T V58.32 REMOVAL OF SUTURES 03/26/2010 MARIA GUADALUPE PROJECT LANDSCAPE ARCHITECT, TON S 729.5 LIMB PAIN 03/26/2010 MARIA GUADALUPE PROJECT LANDSCAPE ARCHITECT, TON S V58.32 REMOVAL OF SUTURES 03/26/2010 MARIA GUADALUPE PROJECT LANDSCAPE ARCHITECT, TON S 729.5 LIMB PAIN 03/26/2010 MARIA GUADALUPE PROJECT LANDSCAPE ARCHITECT, TON S V58.32 REMOVAL OF SUTURES 03/26/2010 MARIA GUADALUPE PROJECT LANDSCAPE ARCHITECT, TON S 729.5 LIMB PAIN 03/26/2010 MARIA GUADALUPE PROJECT LANDSCAPE ARCHITECT, TON S V58.32 REMOVAL OF SUTURES 03/26/2010 MARIA GUADALUPE PROJECT LANDSCAPE ARCHITECT, TON S 729.5 LIMB PAIN 03/26/2010 MARIA GUADALUPE PROJECT LANDSCAPE ARCHITECT, TON S V58.32 REMOVAL OF SUTURES 03/26/2010 VELASQUEZ KAUR PSYD 729.5 LIMB PAIN 03/26/2010 VELASQUEZ KAUR PSYD V58.32 REMOVAL OF SUTURES 03/26/2010 ROMANO DOJEWELS K 729.5 LIMB PAIN 03/26/2010 ROMANO DOJEWELS K V58.32 REMOVAL OF SUTURES 03/26/2010 VELASQUEZ KAUR PSYD 729.5 LIMB PAIN 03/26/2010 VELASQUEZ KAUR PSYD V58.32 REMOVAL OF SUTURES 03/26/2010 POST SYMONE VAUGHN 729.5 LIMB PAIN 03/26/2010 POST SYMONE VAUGHN V58.32 REMOVAL OF SUTURES 03/26/2010 RICHARD PROJECT LANDSCAPE ARCHITECT JEWELS 729.5 LIMB PAIN 03/26/2010 RICHARD PROJECT LANDSCAPE ARCHITECT, JEWELS V58.32 REMOVAL OF SUTURES 03/26/2010 RICHARD PROJECT LANDSCAPE ARCHITECT, JEWELS 729.5 LIMB PAIN 03/26/2010 RICHARD PROJECT LANDSCAPE ARCHITECT, JEWELS V58.32 REMOVAL OF SUTURES 03/26/2010 JEWELS RAMOS APRN 729.5 LIMB PAIN 03/26/2010 JEWELS RAMOS APRN V58.32 REMOVAL OF SUTURES 06/26/2010 JUAN ANTONIO OTTOSACHAA K 386.11 VERTIGO- BENIGN PAROXYSMAL POSITIONAL 06/26/2010 JUAN ANTONIO OTTOSACHAA K 787.91 DIARRHEA 06/26/2010 SACHA ROMANO DOA K 789.04 ABDOMINAL PAIN LEFT LOWER QUADRANT 06/26/2010 386.11 VERTIGO- BENIGN PAROXYSMAL POSITIONAL 06/26/2010 787.91 DIARRHEA 06/26/2010 789.04 ABDOMINAL PAIN LEFT LOWER QUADRANT 06/26/2010 386.11 VERTIGO- BENIGN PAROXYSMAL POSITIONAL 06/26/2010 787.91 DIARRHEA 06/26/2010 789.04 ABDOMINAL PAIN LEFT LOWER QUADRANT 06/26/2010 TON LERMA APRN S 386.11 VERTIGO- BENIGN PAROXYSMAL POSITIONAL 06/26/2010 TON LERMA APRN S 787.91 DIARRHEA 06/26/2010 TON LERMA APRN S 789.04 ABDOMINAL PAIN LEFT LOWER QUADRANT 06/26/2010 MARJORIE STRONG APRN 386.11 VERTIGO- BENIGN PAROXYSMAL POSITIONAL 06/26/2010 MARJORIE STRONG APRN 787.91 DIARRHEA 06/26/2010 MARJORIE STRONG APRN 789.04 ABDOMINAL PAIN LEFT LOWER QUADRANT 06/26/2010 386.11 VERTIGO- BENIGN PAROXYSMAL POSITIONAL 06/26/2010 787.91 DIARRHEA 06/26/2010 789.04 ABDOMINAL PAIN LEFT LOWER QUADRANT 06/26/2010 386.11 VERTIGO- BENIGN PAROXYSMAL POSITIONAL 06/26/2010 787.91 DIARRHEA 06/26/2010 789.04 ABDOMINAL PAIN LEFT LOWER QUADRANT 06/26/2010 386.11 VERTIGO- BENIGN PAROXYSMAL POSITIONAL 06/26/2010 787.91 DIARRHEA 06/26/2010 789.04 ABDOMINAL PAIN LEFT LOWER QUADRANT 06/26/2010 TON LERMA APRN S 386.11 VERTIGO- BENIGN PAROXYSMAL POSITIONAL 06/26/2010 TON LERMA APRN S 787.91 DIARRHEA 06/26/2010 TON LERMA APRN S 789.04 ABDOMINAL PAIN LEFT LOWER QUADRANT 06/26/2010 TON LERMA APRN S 386.11 VERTIGO- BENIGN PAROXYSMAL POSITIONAL 06/26/2010 MARIA GUADALUPE PROJECT LANDSCAPE ARCHITECT, TON S 787.91 DIARRHEA 06/26/2010 MARIA GUADALUPE PROJECT LANDSCAPE ARCHITECT, TON S 789.04 ABDOMINAL PAIN LEFT LOWER QUADRANT 06/26/2010 ISAIAS VALENZUELA MD 386.11 VERTIGO- BENIGN PAROXYSMAL POSITIONAL 06/26/2010 ISAIAS VALENZUELA MD 787.91 DIARRHEA 06/26/2010 ISAIAS VALENZUELA MD 789.04 ABDOMINAL PAIN LEFT LOWER QUADRANT 06/26/2010 MARIA GUADALUPE PROJECT LANDSCAPE ARCHITECT, TON S 386.11 VERTIGO- BENIGN PAROXYSMAL POSITIONAL 06/26/2010 MARIA GUADALUPE PROJECT LANDSCAPE ARCHITECT, TON S 787.91 DIARRHEA 06/26/2010 MARIA GUADALUPE PROJECT LANDSCAPE ARCHITECT, TON S 789.04 ABDOMINAL PAIN LEFT LOWER QUADRANT 06/26/2010 MARIA GUADALUPE PROJECT LANDSCAPE ARCHITECT, TON S 386.11 VERTIGO- BENIGN PAROXYSMAL POSITIONAL 06/26/2010 MARIA GUADALUPE PROJECT LANDSCAPE ARCHITECT, TON S 787.91 DIARRHEA 06/26/2010 MARIA GUADALUPE CHAUDHARIN, TON S 789.04 ABDOMINAL PAIN LEFT LOWER QUADRANT 06/26/2010 MARIA GUADALUPE PROJECT LANDSCAPE ARCHITECT, TON S 386.11 VERTIGO- BENIGN PAROXYSMAL POSITIONAL 06/26/2010 MARIA GUADALUPE PROJECT LANDSCAPE ARCHITECT, TON S 787.91 DIARRHEA 06/26/2010 MARIA GUADALUPE PROJECT LANDSCAPE ARCHITECT, TON S 789.04 ABDOMINAL PAIN LEFT LOWER QUADRANT 06/26/2010 MAIRA GUADALUPE PROJECT LANDSCAPE ARCHITECT, TON S 386.11 VERTIGO- BENIGN PAROXYSMAL POSITIONAL 06/26/2010 MARIA GUADALUPE PROJECT LANDSCAPE ARCHITECT, TON S 787.91 DIARRHEA 06/26/2010 MARIA GUADALUPE PROJECT LANDSCAPE ARCHITECT, TON S 789.04 ABDOMINAL PAIN LEFT LOWER QUADRANT 06/26/2010 MARIA GUADALUPE PROJECT LANDSCAPE ARCHITECT, TON S 386.11 VERTIGO- BENIGN PAROXYSMAL POSITIONAL 06/26/2010 MARIA GUADALUPE PROJECT LANDSCAPE ARCHITECT, TON S 787.91 DIARRHEA 06/26/2010 MARIA GUADALUPE PROJECT LANDSCAPE ARCHITECT, TON S 789.04 ABDOMINAL PAIN LEFT LOWER QUADRANT 06/26/2010 CATHERINE PERALES APRN T 386.11 VERTIGO- BENIGN PAROXYSMAL POSITIONAL 06/26/2010 CATHERINE PERALES APRN T 787.91 DIARRHEA 06/26/2010 CATHERINE PERALES APRN T 789.04 ABDOMINAL PAIN LEFT LOWER QUADRANT 06/26/2010 MARIA GUADALUPEGARY CHAUDHARIN, TON S 386.11 VERTIGO- BENIGN PAROXYSMAL POSITIONAL 06/26/2010 MARIA GUADALUPE PROJECT LANDSCAPE ARCHITECT, TON S 787.91 DIARRHEA 06/26/2010 MARIA GUADALUPE CHAUDHARIN, TON S 789.04 ABDOMINAL PAIN LEFT LOWER QUADRANT 06/26/2010 MARIA GUADALUPE PROJECT LANDSCAPE ARCHITECT, TON S 386.11 VERTIGO- BENIGN PAROXYSMAL POSITIONAL 06/26/2010 MARIA GUADALUPE PROJECT LANDSCAPE ARCHITECT, TON S 787.91 DIARRHEA 06/26/2010 MARIA GUADALUPE PROJECT LANDSCAPE ARCHITECT, TON S 789.04 ABDOMINAL PAIN LEFT LOWER QUADRANT 06/26/2010 MARIA GUADALUPE PROJECT LANDSCAPE ARCHITECT, TON S 386.11 VERTIGO- BENIGN PAROXYSMAL POSITIONAL 06/26/2010 MARIA GUADALUPE PROJECT LANDSCAPE ARCHITECT, TON S 787.91 DIARRHEA 06/26/2010 MARIA GUADALUPE CHAUDHARIN, TON S 789.04 ABDOMINAL PAIN LEFT LOWER QUADRANT 06/26/2010 MARIA GUADALUPE PROJECT LANDSCAPE ARCHITECT, TON S 386.11 VERTIGO- BENIGN PAROXYSMAL POSITIONAL 06/26/2010 MARIA GUADALUPE PROJECT LANDSCAPE ARCHITECT, TON S 787.91 DIARRHEA 06/26/2010 MARIA GUADALUPE CHAUDHARIN, TON S 789.04 ABDOMINAL PAIN LEFT LOWER QUADRANT 06/26/2010 VELASQUEZ KAUR PSYD L 386.11 VERTIGO- BENIGN PAROXYSMAL POSITIONAL 06/26/2010 VELASQUEZ KAUR PSYD ANN L 787.91 DIARRHEA 06/26/2010 VELASQUEZ KAUR PSYD ANN L 789.04 ABDOMINAL PAIN LEFT LOWER QUADRANT 06/26/2010 ROMANO DO, JEWELS K 386.11 VERTIGO- BENIGN PAROXYSMAL POSITIONAL 06/26/2010 ROMANO DO, JEWELS K 787.91 DIARRHEA 06/26/2010 ROMANO DO, JEWELS K 789.04 ABDOMINAL PAIN LEFT LOWER QUADRANT 06/26/2010 VELASQUEZ KAUR PSYD ANN L 386.11 VERTIGO- BENIGN PAROXYSMAL POSITIONAL 06/26/2010 VELASQUEZ KAUR PSYD ANN L 787.91 DIARRHEA 06/26/2010 VELASQUEZ KAUR PSYD ANN L 789.04 ABDOMINAL PAIN LEFT LOWER QUADRANT 06/26/2010 SYMONE POST APRN 386.11 VERTIGO- BENIGN PAROXYSMAL POSITIONAL 06/26/2010 SYMONE POST APRN 787.91 DIARRHEA 06/26/2010 SYMONE POST APRN 789.04 ABDOMINAL PAIN LEFT LOWER QUADRANT 06/26/2010 RICHARD PROJECT LANDSCAPE ARCHITECT, JEWELS 386.11 VERTIGO- BENIGN PAROXYSMAL POSITIONAL 06/26/2010 RICHARD PROJECT LANDSCAPE ARCHITECT, JEWELS 787.91 DIARRHEA 06/26/2010 RICHARD PROJECT LANDSCAPE ARCHITECT, JEWELS 789.04 ABDOMINAL PAIN LEFT LOWER QUADRANT 06/26/2010 RICHARD PROJECT LANDSCAPE ARCHITECT, JEWELS 386.11 VERTIGO- BENIGN PAROXYSMAL POSITIONAL 06/26/2010 RICHARD PROJECT LANDSCAPE ARCHITECT, JEWELS 787.91 DIARRHEA 06/26/2010 RICHARD PROJECT LANDSCAPE ARCHITECT, JEWELS 789.04 ABDOMINAL PAIN LEFT LOWER QUADRANT 06/26/2010 RICHARD PROJECT LANDSCAPE ARCHITECT, JEWELS 386.11 VERTIGO- BENIGN PAROXYSMAL POSITIONAL 06/26/2010 RICHARD PROJECT LANDSCAPE ARCHITECT, JEWELS 787.91 DIARRHEA 06/26/2010 RICHARD PROJECT LANDSCAPE ARCHITECT, JEWELS 789.04 ABDOMINAL PAIN LEFT LOWER QUADRANT 07/01/2010 JEWELS ROMANO DO 386.30 LABYRINTHITIS UNSPECIFIED 07/01/2010 386.30 LABYRINTHITIS UNSPECIFIED 07/01/2010 386.30 LABYRINTHITIS UNSPECIFIED 07/01/2010 TON LERMA APRN S 386.30 LABYRINTHITIS UNSPECIFIED 07/01/2010 MARJORIE STRONG APRN 386.30 LABYRINTHITIS UNSPECIFIED 07/01/2010 386.30 LABYRINTHITIS UNSPECIFIED 07/01/2010 386.30 LABYRINTHITIS UNSPECIFIED 07/01/2010 386.30 LABYRINTHITIS UNSPECIFIED 07/01/2010 TON LERMA APRN S 386.30 LABYRINTHITIS UNSPECIFIED 07/01/2010 BRITNEY LERMA APRNA S 386.30 LABYRINTHITIS UNSPECIFIED 07/01/2010 ISAIAS VALENZUELA MD 386.30 LABYRINTHITIS UNSPECIFIED 07/01/2010 BRITNEY LERMA APRNA S 386.30 LABYRINTHITIS UNSPECIFIED 07/01/2010 BRITNEY LERMA APRNA S 386.30 LABYRINTHITIS UNSPECIFIED 07/01/2010 BRITNEY LERMA APRNA S 386.30 LABYRINTHITIS UNSPECIFIED 07/01/2010 BRITNEY LERMA APRNA S 386.30 LABYRINTHITIS UNSPECIFIED 07/01/2010 MARIA GUADALUPE VAUGHN, TON S 386.30 LABYRINTHITIS UNSPECIFIED 07/01/2010 CATHERINE PERALES APRN 386.30 LABYRINTHITIS UNSPECIFIED 07/01/2010 MARIA GUADALUPE PROJECT LANDSCAPE ARCHITECT, TON S 386.30 LABYRINTHITIS UNSPECIFIED 07/01/2010 MARIA GUADALUPE PROJECT LANDSCAPE ARCHITECT, TON S 386.30 LABYRINTHITIS UNSPECIFIED 07/01/2010 MARIA GUADALUPE CHAUDHARIN, TON S 386.30 LABYRINTHITIS UNSPECIFIED 07/01/2010 MARIA GUADALUPE VAUGHN, TON S 386.30 LABYRINTHITIS UNSPECIFIED 07/01/2010 VELASQUEZ KAUR PSYD 386.30 LABYRINTHITIS UNSPECIFIED 07/01/2010 JEWELS ROMANO DO K 386.30 LABYRINTHITIS UNSPECIFIED 07/01/2010 VELASQUEZ KAUR PSYD L 386.30 LABYRINTHITIS UNSPECIFIED 07/01/2010 SYMONE POST APRN 386.30 LABYRINTHITIS UNSPECIFIED 07/01/2010 RICHARD PROJECT LANDSCAPE ARCHITECT, JEWELS 386.30 LABYRINTHITIS UNSPECIFIED 07/01/2010 RICHARD PROJECT LANDSCAPE ARCHITECT, JEWELS 386.30 LABYRINTHITIS UNSPECIFIED 07/01/2010 RICHARD PROJECT LANDSCAPE ARCHITECT, JEWELS 386.30 LABYRINTHITIS UNSPECIFIED 09/13/2010 ROMANO DO JEWELS K 698.9 PRURITUS NOS 09/13/2010 ROMANO SACHA OTTOA K 782.1 RASH 09/13/2010 JUAN ANTONIO OTTOSACHAA K 786.05 SHORTNESS OF BREATH 09/13/2010 698.9 PRURITUS NOS 09/13/2010 782.1 RASH 09/13/2010 786.05 SHORTNESS OF BREATH 09/13/2010 698.9 PRURITUS NOS 09/13/2010 782.1 RASH 09/13/2010 786.05 SHORTNESS OF BREATH 09/13/2010 QUINTEN LERMA APRNNDA S 698.9 PRURITUS NOS 09/13/2010 MARIA GUADALUPE VAGUHN, TON S 782.1 RASH 09/13/2010 QUINTEN LERMA APRNNDA S 786.05 SHORTNESS OF BREATH 09/13/2010 MARJORIE STRONG APRN 698.9 PRURITUS NOS 09/13/2010 MARJORIE STRONG APRN 782.1 RASH 09/13/2010 MARJORIE STRONG APRN 786.05 SHORTNESS OF BREATH 09/13/2010 698.9 PRURITUS NOS 09/13/2010 782.1 RASH 09/13/2010 786.05 SHORTNESS OF BREATH 09/13/2010 698.9 PRURITUS NOS 09/13/2010 782.1 RASH 09/13/2010 786.05 SHORTNESS OF BREATH 09/13/2010 698.9 PRURITUS NOS 09/13/2010 782.1 RASH 09/13/2010 786.05 SHORTNESS OF BREATH 09/13/2010 MARIA GUADALUPE PROJECT LANDSCAPE ARCHITECT, TON S 698.9 PRURITUS NOS 09/13/2010 MARIA GUADALUPE PROJECT LANDSCAPE ARCHITECT, TON S 782.1 RASH 09/13/2010 MARIA GUADALUPE PROJECT LANDSCAPE ARCHITECT, TON S 786.05 SHORTNESS OF BREATH 09/13/2010 MARIA GUADALUPE PROJECT LANDSCAPE ARCHITECT, TON S 698.9 PRURITUS NOS 09/13/2010 MARIA GUADALUPE PROJECT LANDSCAPE ARCHITECT, TON S 782.1 RASH 09/13/2010 MARIA GUADALUPE PROJECT LANDSCAPE ARCHITECT, TON S 786.05 SHORTNESS OF BREATH 09/13/2010 ISAIAS VALENZUELA MD 698.9 PRURITUS NOS 09/13/2010 ISAIAS VALENZUELA MD 782.1 RASH 09/13/2010 ISAIAS VALENZUELA MD 786.05 SHORTNESS OF BREATH 09/13/2010 MARIA GUADALUPE PROJECT LANDSCAPE ARCHITECT, TON S 698.9 PRURITUS NOS 09/13/2010 MARIA GUADALUPE PROJECT LANDSCAPE ARCHITECT, TON S 782.1 RASH 09/13/2010 MARIA GUADALUPE PROJECT LANDSCAPE ARCHITECT, TON S 786.05 SHORTNESS OF BREATH 09/13/2010 MARIA GUADALUPE PROJECT LANDSCAPE ARCHITECT, TON S 698.9 PRURITUS NOS 09/13/2010 MARIA GUADALUPE PROJECT LANDSCAPE ARCHITECT, TON S 782.1 RASH 09/13/2010 MARIA GUADALUPE PROJECT LANDSCAPE ARCHITECT, TON S 786.05 SHORTNESS OF BREATH 09/13/2010 MARIA GUADALUPE PROJECT LANDSCAPE ARCHITECT, TON S 698.9 PRURITUS NOS 09/13/2010 MARIA GUADALUPE PROJECT LANDSCAPE ARCHITECT, TON S 782.1 RASH 09/13/2010 MARIA GUADALUPE PROJECT LANDSCAPE ARCHITECT, TON S 786.05 SHORTNESS OF BREATH 09/13/2010 MARIA GUADALUPE PROJECT LANDSCAPE ARCHITECT, TON S 698.9 PRURITUS NOS 09/13/2010 MARIA GUADALUPE PROJECT LANDSCAPE ARCHITECT, TON S 782.1 RASH 09/13/2010 MARIA GUADALUPE PROJECT LANDSCAPE ARCHITECT, TON S 786.05 SHORTNESS OF BREATH 09/13/2010 MARIA GUADALUPE PROJECT LANDSCAPE ARCHITECT, TON S 698.9 PRURITUS NOS 09/13/2010 MARIA GUADALUPE PROJECT LANDSCAPE ARCHITECT, TON S 782.1 RASH 09/13/2010 MARIA GUADALUPE PROJECT LANDSCAPE ARCHITECT, TON S 786.05 SHORTNESS OF BREATH 09/13/2010 DIAZ PROJECT LANDSCAPE ARCHITECT, CATHERINE T 698.9 PRURITUS NOS 09/13/2010 DIAZ PROJECT LANDSCAPE ARCHITECT, CATHERINE T 782.1 RASH 09/13/2010 DIAZ PROJECT LANDSCAPE ARCHITECT, CATHERINE T 786.05 SHORTNESS OF BREATH 09/13/2010 MARIA GUADALUPE PROJECT LANDSCAPE ARCHITECT, TON S 698.9 PRURITUS NOS 09/13/2010 MARIA GUADALUPE PROJECT LANDSCAPE ARCHITECT, TON S 782.1 RASH 09/13/2010 MARIA GUADALUPE CHAUDHARIN, TON S 786.05 SHORTNESS OF BREATH 09/13/2010 MARIA GUADALUPE PROJECT LANDSCAPE ARCHITECT, TON S 698.9 PRURITUS NOS 09/13/2010 MARIA GUADALUPE PROJECT LANDSCAPE ARCHITECT, TON S 782.1 RASH 09/13/2010 MARIA GUADALUPEGARY CHAUDHARIN, TON S 786.05 SHORTNESS OF BREATH 09/13/2010 MARIA GUADALUPE PROJECT LANDSCAPE ARCHITECT, TON S 698.9 PRURITUS NOS 09/13/2010 MARIA GUADALUPE PROJECT LANDSCAPE ARCHITECT, TON S 782.1 RASH 09/13/2010 MARIA GUADALUPE CHAUDHARIN, TON S 786.05 SHORTNESS OF BREATH 09/13/2010 MARIA GUADALUPE PROJECT LANDSCAPE ARCHITECT, TON S 698.9 PRURITUS NOS 09/13/2010 MARIA GUADALUPE PROJECT LANDSCAPE ARCHITECT, TON S 782.1 RASH 09/13/2010 MARIA GUADALUPE PROJECT LANDSCAPE ARCHITECT, TON S 786.05 SHORTNESS OF BREATH 09/13/2010 VELASQUEZ KAUR PSYD L 698.9 PRURITUS NOS 09/13/2010 VELASQUEZ KAUR PSYD L 782.1 RASH 09/13/2010 VELASQUEZ KAUR PSYD L 786.05 SHORTNESS OF BREATH 09/13/2010 JUAN ANTONIO DOJEWELS K 698.9 PRURITUS NOS 09/13/2010 JUAN ANTONIO SACHA OTTOA K 782.1 RASH 09/13/2010 JUAN ANTONIO OTTOSACHAA K 786.05 SHORTNESS OF BREATH 09/13/2010 VELASQUEZ KAUR PSYD ANN L 698.9 PRURITUS NOS 09/13/2010 VELASQUEZ KAUR PSYD ANN L 782.1 RASH 09/13/2010 VELASQUEZ KAUR PSYD ANN L 786.05 SHORTNESS OF BREATH 09/13/2010 POST PROJECT LANDSCAPE ARCHITECT SYMONE D 698.9 PRURITUS NOS 09/13/2010 POST PROJECT LANDSCAPE ARCHITECT, SYMONE D 782.1 RASH 09/13/2010 POST PROJECT LANDSCAPE ARCHITECT, SYMONE D 786.05 SHORTNESS OF BREATH 09/13/2010 RICHARD PROJECT LANDSCAPE ARCHITECT, JEWELS 698.9 PRURITUS NOS 09/13/2010 RICHARD PROJECT LANDSCAPE ARCHITECT, JEWELS 782.1 RASH 09/13/2010 RICHARD PROJECT LANDSCAPE ARCHITECT, JEWELS 786.05 SHORTNESS OF BREATH 09/13/2010 RICHARD PROJECT LANDSCAPE ARCHITECT, JEWELS 698.9 PRURITUS NOS 09/13/2010 RICHARD PROJECT LANDSCAPE ARCHITECT, JEWELS 782.1 RASH 09/13/2010 RICHARD PROJECT LANDSCAPE ARCHITECT, JEWELS 786.05 SHORTNESS OF BREATH 09/13/2010 RICHARD PROJECT LANDSCAPE ARCHITECT, JEWELS 698.9 PRURITUS NOS 09/13/2010 RICHARD PROJECT LANDSCAPE ARCHITECT, JEWELS 782.1 RASH 09/13/2010 RICHARD PROJECT LANDSCAPE ARCHITECT, JEWELS 786.05 SHORTNESS OF BREATH 02/10/2011 ROMANO JEWELS OTTO K 564.1 IRRITABLE BOWEL SYNDROME 02/10/2011 JEWELS ROMANO DO K 578.1 BLOOD IN STOOL 02/10/2011 JEWELS ROMANO DO K 789.07 ABDOMINAL PAIN GENERALIZED 02/10/2011 ROMANO JEWELS OTTO K V04.81 FLU DX (3 YRS AND ABOVE, IM) 02/10/2011 564.1 IRRITABLE BOWEL SYNDROME 02/10/2011 578.1 BLOOD IN STOOL 02/10/2011 789.07 ABDOMINAL PAIN GENERALIZED 02/10/2011 V04.81 FLU DX (3 YRS AND ABOVE, IM) 02/10/2011 564.1 IRRITABLE BOWEL SYNDROME 02/10/2011 578.1 BLOOD IN STOOL 02/10/2011 789.07 ABDOMINAL PAIN GENERALIZED 02/10/2011 V04.81 FLU DX (3 YRS AND ABOVE, IM) 02/10/2011 MARIA GUADALUPE VAUGHN TON S 564.1 IRRITABLE BOWEL SYNDROME 02/10/2011 MARIA GUADALUPE PROJECT LANDSCAPE ARCHITECTQUINTEN RamosNDA S 578.1 BLOOD IN STOOL 02/10/2011 MARIA GUADALUPE PROJECT LANDSCAPE ARCHITECT, TON S 789.07 ABDOMINAL PAIN GENERALIZED 02/10/2011 BRITNEY LERMA APRNA S V04.81 FLU DX (3 YRS AND ABOVE, IM) 02/10/2011 TAE VAUGHNGEOFFREYON M 564.1 IRRITABLE BOWEL SYNDROME 02/10/2011 TAE CHAUDHARINMARJORIE M 578.1 BLOOD IN STOOL 02/10/2011 TAE CHAUDHARINMARJORIE M 789.07 ABDOMINAL PAIN GENERALIZED 02/10/2011 MARJORIE STRONG APRN V04.81 FLU DX (3 YRS AND ABOVE, IM) 02/10/2011 564.1 IRRITABLE BOWEL SYNDROME 02/10/2011 578.1 BLOOD IN STOOL 02/10/2011 789.07 ABDOMINAL PAIN GENERALIZED 02/10/2011 V04.81 FLU DX (3 YRS AND ABOVE, IM) 02/10/2011 564.1 IRRITABLE BOWEL SYNDROME 02/10/2011 578.1 BLOOD IN STOOL 02/10/2011 789.07 ABDOMINAL PAIN GENERALIZED 02/10/2011 V04.81 FLU DX (3 YRS AND ABOVE, IM) 02/10/2011 564.1 IRRITABLE BOWEL SYNDROME 02/10/2011 578.1 BLOOD IN STOOL 02/10/2011 789.07 ABDOMINAL PAIN GENERALIZED 02/10/2011 V04.81 FLU DX (3 YRS AND ABOVE, IM) 02/10/2011 MARIA GUADALUPE VAUGHN, TON S 564.1 IRRITABLE BOWEL SYNDROME 02/10/2011 MARIA GUADALUPE PROJECT LANDSCAPE ARCHITECT, TON S 578.1 BLOOD IN STOOL 02/10/2011 QUINTEN LERMA APRNNDA S 789.07 ABDOMINAL PAIN GENERALIZED 02/10/2011 QUINTEN LERMA APRNNDA S V04.81 FLU DX (3 YRS AND ABOVE, IM) 02/10/2011 MARIA GUADALUPE VAUGHN, TON S 564.1 IRRITABLE BOWEL SYNDROME 02/10/2011 QUINTEN LERMA APRNNDA S 578.1 BLOOD IN STOOL 02/10/2011 MARIA GUADALUPE PROJECT LANDSCAPE ARCHITECT, TON S 789.07 ABDOMINAL PAIN GENERALIZED 02/10/2011 MARIA GUADALUPE PROJECT LANDSCAPE ARCHITECT, TON S V04.81 FLU DX (3 YRS AND ABOVE, IM) 02/10/2011 ISAIAS VALENZUELA MD 564.1 IRRITABLE BOWEL SYNDROME 02/10/2011 ISAIAS VALENZUELA MD 578.1 BLOOD IN STOOL 02/10/2011 ISAIAS VALENZUELA MD 789.07 ABDOMINAL PAIN GENERALIZED 02/10/2011 ISAIAS VALENZUELA MD V04.81 FLU DX (3 YRS AND ABOVE, IM) 02/10/2011 MARIA GUADALUPE PROJECT LANDSCAPE ARCHITECT, TON S 564.1 IRRITABLE BOWEL SYNDROME 02/10/2011 MARIA GUADALUPE PROJECT LANDSCAPE ARCHITECT, TON S 578.1 BLOOD IN STOOL 02/10/2011 MARIA GUADALUPE PROJECT LANDSCAPE ARCHITECT, TON S 789.07 ABDOMINAL PAIN GENERALIZED 02/10/2011 MARIA GUADALUPE PROJECT LANDSCAPE ARCHITECT, TON S V04.81 FLU DX (3 YRS AND ABOVE, IM) 02/10/2011 MARIA GUADALUPE PROJECT LANDSCAPE ARCHITECT, TON S 564.1 IRRITABLE BOWEL SYNDROME 02/10/2011 MARIA GUADALUPE PROJECT LANDSCAPE ARCHITECT, TON S 578.1 BLOOD IN STOOL 02/10/2011 MARIA GUADALUPE PROJECT LANDSCAPE ARCHITECT, TON S 789.07 ABDOMINAL PAIN GENERALIZED 02/10/2011 MARIA GUADALUPE PROJECT LANDSCAPE ARCHITECT, TON S V04.81 FLU DX (3 YRS AND ABOVE, IM) 02/10/2011 MARIA GUADALUPE PROJECT LANDSCAPE ARCHITECT, TON S 564.1 IRRITABLE BOWEL SYNDROME 02/10/2011 MARIA GUADALUPE PROJECT LANDSCAPE ARCHITECT, TON S 578.1 BLOOD IN STOOL 02/10/2011 MARIA GUADALUPE PROJECT LANDSCAPE ARCHITECT, TON S 789.07 ABDOMINAL PAIN GENERALIZED 02/10/2011 MARIA GUADALUPE PROJECT LANDSCAPE ARCHITECT, TON S V04.81 FLU DX (3 YRS AND ABOVE, IM) 02/10/2011 MARIA GUADALUPE PROJECT LANDSCAPE ARCHITECT, TON S 564.1 IRRITABLE BOWEL SYNDROME 02/10/2011 MARIA GUADALUPE PROJECT LANDSCAPE ARCHITECT, TON S 578.1 BLOOD IN STOOL 02/10/2011 MARIA GUADALUPE PROJECT LANDSCAPE ARCHITECT, TON S 789.07 ABDOMINAL PAIN GENERALIZED 02/10/2011 MARIA GUADALUPE PROJECT LANDSCAPE ARCHITECT, TON S V04.81 FLU DX (3 YRS AND ABOVE, IM) 02/10/2011 MARIA GUADALUPE PROJECT LANDSCAPE ARCHITECT, TON S 564.1 IRRITABLE BOWEL SYNDROME 02/10/2011 MARIA GUADALUPE PROJECT LANDSCAPE ARCHITECT, TON S 578.1 BLOOD IN STOOL 02/10/2011 MARIA GUADALUPE PROJECT LANDSCAPE ARCHITECT, TON S 789.07 ABDOMINAL PAIN GENERALIZED 02/10/2011 MARIA GUADALUPE PROJECT LANDSCAPE ARCHITECT, TON S V04.81 FLU DX (3 YRS AND ABOVE, IM) 02/10/2011 DIAZ PROJECT LANDSCAPE ARCHITECT, CATHERINE T 564.1 IRRITABLE BOWEL SYNDROME 02/10/2011 DIAZ PROJECT LANDSCAPE ARCHITECT, CATHERINE T 578.1 BLOOD IN STOOL 02/10/2011 DIAZ PROJECT LANDSCAPE ARCHITECT, CATHERINE T 789.07 ABDOMINAL PAIN GENERALIZED 02/10/2011 DIAZ CHAUDHARIN, CATHERINE T V04.81 FLU DX (3 YRS AND ABOVE, IM) 02/10/2011 MARIA GUADALUPE PROJECT LANDSCAPE ARCHITECT, TON S 564.1 IRRITABLE BOWEL SYNDROME 02/10/2011 MARIA GUADALUPE PROJECT LANDSCAPE ARCHITECT, TON S 578.1 BLOOD IN STOOL 02/10/2011 MARIA GUADALUPE PROJECT LANDSCAPE ARCHITECT, TON S 789.07 ABDOMINAL PAIN GENERALIZED 02/10/2011 MARIA GUADALUPE PROJECT LANDSCAPE ARCHITECT, TON S V04.81 FLU DX (3 YRS AND ABOVE, IM) 02/10/2011 MARIA GUADALUPE PROJECT LANDSCAPE ARCHITECT, TON S 564.1 IRRITABLE BOWEL SYNDROME 02/10/2011 MARIA GUADALUPE PROJECT LANDSCAPE ARCHITECT, TON S 578.1 BLOOD IN STOOL 02/10/2011 MARIA GUADALUPE PROJECT LANDSCAPE ARCHITECT, TON S 789.07 ABDOMINAL PAIN GENERALIZED 02/10/2011 MARIA GUADALUPE PROJECT LANDSCAPE ARCHITECT, TON S V04.81 FLU DX (3 YRS AND ABOVE, IM) 02/10/2011 MARIA GUADALUPE PROJECT LANDSCAPE ARCHITECT, TON S 564.1 IRRITABLE BOWEL SYNDROME 02/10/2011 MARIA GUADALUPE PROJECT LANDSCAPE ARCHITECT, TON S 578.1 BLOOD IN STOOL 02/10/2011 MARIA GUADALUPE PROJECT LANDSCAPE ARCHITECT, TON S 789.07 ABDOMINAL PAIN GENERALIZED 02/10/2011 MARIA GUADALUPE PROJECT LANDSCAPE ARCHITECT, TON S V04.81 FLU DX (3 YRS AND ABOVE, IM) 02/10/2011 MARIA GUADALUPE PROJECT LANDSCAPE ARCHITECT, TON S 564.1 IRRITABLE BOWEL SYNDROME 02/10/2011 MARIA GUADALUPEGARY VAUGHN TON S 578.1 BLOOD IN STOOL 02/10/2011 MARIA GUADALUPE PROJECT LANDSCAPE ARCHITECT TON S 789.07 ABDOMINAL PAIN GENERALIZED 02/10/2011 MARIA GUADALUPEQUINTEN JAMES APRNNDA S V04.81 FLU DX (3 YRS AND ABOVE, IM) 02/10/2011 VELASQUEZ KAUR PSYD L 564.1 IRRITABLE BOWEL SYNDROME 02/10/2011 VELASQUEZ KAUR PSYD L 578.1 BLOOD IN STOOL 02/10/2011 VELASQUEZ KAUR PSYD ANN L 789.07 ABDOMINAL PAIN GENERALIZED 02/10/2011 VELASQUEZ KAUR PSYD L V04.81 FLU DX (3 YRS AND ABOVE, IM) 02/10/2011 ROMANO DOSACHAA K 564.1 IRRITABLE BOWEL SYNDROME 02/10/2011 ROMANO DO JEWELS K 578.1 BLOOD IN STOOL 02/10/2011 ROMANO DO JEWELS K 789.07 ABDOMINAL PAIN GENERALIZED 02/10/2011 ROMANO DO JEWELS K V04.81 FLU DX (3 YRS AND ABOVE, IM) 02/10/2011 VELASQUEZ KAUR PSYD L 564.1 IRRITABLE BOWEL SYNDROME 02/10/2011 VELASQUEZ KAUR PSYD L 578.1 BLOOD IN STOOL 02/10/2011 VELASQUEZ KAUR PSYD L 789.07 ABDOMINAL PAIN GENERALIZED 02/10/2011 VELASQUEZ KAUR PSYD L V04.81 FLU DX (3 YRS AND ABOVE, IM) 02/10/2011 SYMONE POST APRN 564.1 IRRITABLE BOWEL SYNDROME 02/10/2011 SYMONE POST APRN 578.1 BLOOD IN STOOL 02/10/2011 SYMONE POST APRN 789.07 ABDOMINAL PAIN GENERALIZED 02/10/2011 SYMONE POST APRN V04.81 FLU DX (3 YRS AND ABOVE, IM) 02/10/2011 RICHARD VAUGHN JEWELS 564.1 IRRITABLE BOWEL SYNDROME 02/10/2011 RICHARD VAUGHN JEWELS 578.1 BLOOD IN STOOL 02/10/2011 RICHARD VAUGHN JEWELS 789.07 ABDOMINAL PAIN GENERALIZED 02/10/2011 RICHARD PROJECT LANDSCAPE ARCHITECT, JEWELS V04.81 FLU DX (3 YRS AND ABOVE, IM) 02/10/2011 RICHARD PROJECT LANDSCAPE ARCHITECT, JEWELS 564.1 IRRITABLE BOWEL SYNDROME 02/10/2011 RICHARD PROJECT LANDSCAPE ARCHITECT, JEWELS 578.1 BLOOD IN STOOL 02/10/2011 RICHARD PROJECT LANDSCAPE ARCHITECT, JEWELS 789.07 ABDOMINAL PAIN GENERALIZED 02/10/2011 RICHARD PROJECT LANDSCAPE ARCHITECT, JEWELS V04.81 FLU DX (3 YRS AND ABOVE, IM) 02/10/2011 RICHARD PROJECT LANDSCAPE ARCHITECT, JEWELS 564.1 IRRITABLE BOWEL SYNDROME 02/10/2011 RICHARD PROJECT LANDSCAPE ARCHITECT, JEWELS 578.1 BLOOD IN STOOL 02/10/2011 RICHARD PROJECT LANDSCAPE ARCHITECT, JEWELS 789.07 ABDOMINAL PAIN GENERALIZED 02/10/2011 RICHARD PROJECT LANDSCAPE ARCHITECT, JEWELS V04.81 FLU DX (3 YRS AND ABOVE, IM) 03/17/2011 JEWELS ROMANO DO 536.8 DYSPEPSIA 03/17/2011 JEWELS ROMANO DO 789.01 ABDOMINAL PAIN RIGHT UPPER QUADRANT 03/17/2011 JEWELS ROMANO DO V12.72 PERSONAL HISTORY OF COLONIC POLYPS 03/17/2011 536.8 DYSPEPSIA 03/17/2011 789.01 ABDOMINAL PAIN RIGHT UPPER QUADRANT 03/17/2011 V12.72 PERSONAL HISTORY OF COLONIC POLYPS 03/17/2011 536.8 DYSPEPSIA 03/17/2011 789.01 ABDOMINAL PAIN RIGHT UPPER QUADRANT 03/17/2011 V12.72 PERSONAL HISTORY OF COLONIC POLYPS 03/17/2011 TON LERMA APRN S 536.8 DYSPEPSIA 03/17/2011 TON LERMA APRN S 789.01 ABDOMINAL PAIN RIGHT UPPER QUADRANT 03/17/2011 TON LERMA APRN S V12.72 PERSONAL HISTORY OF COLONIC POLYPS 03/17/2011 MARJORIE STRONG APRN 536.8 DYSPEPSIA 03/17/2011 MARJORIE STRONG APRN 789.01 ABDOMINAL PAIN RIGHT UPPER QUADRANT 03/17/2011 MARJORIE STRONG APRN V12.72 PERSONAL HISTORY OF COLONIC POLYPS 03/17/2011 536.8 DYSPEPSIA 03/17/2011 789.01 ABDOMINAL PAIN RIGHT UPPER QUADRANT 03/17/2011 V12.72 PERSONAL HISTORY OF COLONIC POLYPS 03/17/2011 536.8 DYSPEPSIA 03/17/2011 789.01 ABDOMINAL PAIN RIGHT UPPER QUADRANT 03/17/2011 V12.72 PERSONAL HISTORY OF COLONIC POLYPS 03/17/2011 536.8 DYSPEPSIA 03/17/2011 789.01 ABDOMINAL PAIN RIGHT UPPER QUADRANT 03/17/2011 V12.72 PERSONAL HISTORY OF COLONIC POLYPS 03/17/2011 MARIA GUADALUPE VAUGHN, TON S 536.8 DYSPEPSIA 03/17/2011 MARIA GUADALUPE VAUGHN, TON S 789.01 ABDOMINAL PAIN RIGHT UPPER QUADRANT 03/17/2011 MARIA GUADALUPE CHAUDHARIN, TON S V12.72 PERSONAL HISTORY OF COLONIC POLYPS 03/17/2011 MARIA GUADALUPE VAUGHN, TON S 536.8 DYSPEPSIA 03/17/2011 MARIA GUADALUPE VAUGHN, TON S 789.01 ABDOMINAL PAIN RIGHT UPPER QUADRANT 03/17/2011 MARIA GUADALUPE VAUGHN, TON S V12.72 PERSONAL HISTORY OF COLONIC POLYPS 03/17/2011 ISAIAS VALENZUELA MD 536.8 DYSPEPSIA 03/17/2011 ISAIAS VALENZUELA MD 789.01 ABDOMINAL PAIN RIGHT UPPER QUADRANT 03/17/2011 ISAIAS VALENZUELA MD V12.72 PERSONAL HISTORY OF COLONIC POLYPS 03/17/2011 MARIA GUADALUPE VAUGHN TON S 536.8 DYSPEPSIA 03/17/2011 MARIA GUADALUPE VAUGHN, TON S 789.01 ABDOMINAL PAIN RIGHT UPPER QUADRANT 03/17/2011 MARIA GUADALUPE VAUGHN, TON S V12.72 PERSONAL HISTORY OF COLONIC POLYPS 03/17/2011 MARIA GUADALUPE VAUGHN, TON S 536.8 DYSPEPSIA 03/17/2011 MARIA GUADALUPE VAUGHN, TON S 789.01 ABDOMINAL PAIN RIGHT UPPER QUADRANT 03/17/2011 MARIA GUADALUPE CHAUDHARIN, TON S V12.72 PERSONAL HISTORY OF COLONIC POLYPS 03/17/2011 MARIA GUADALUPE VAUGHN, TON S 536.8 DYSPEPSIA 03/17/2011 MARIA GUADALUPE VAUGHN, TON S 789.01 ABDOMINAL PAIN RIGHT UPPER QUADRANT 03/17/2011 MARIA GUADALUPE VAUGHN, TON S V12.72 PERSONAL HISTORY OF COLONIC POLYPS 03/17/2011 MARIA GUADALUPE VAUGHN, TON S 536.8 DYSPEPSIA 03/17/2011 MARIA GUADALUPE PROJECT LANDSCAPE ARCHITECT, TON S 789.01 ABDOMINAL PAIN RIGHT UPPER QUADRANT 03/17/2011 MARIA GUADALUPE PROJECT LANDSCAPE ARCHITECT, TON S V12.72 PERSONAL HISTORY OF COLONIC POLYPS 03/17/2011 MARIA GUADALUPE PROJECT LANDSCAPE ARCHITECT, TON S 536.8 DYSPEPSIA 03/17/2011 MARIA GUADALUPE PROJECT LANDSCAPE ARCHITECT, TON S 789.01 ABDOMINAL PAIN RIGHT UPPER QUADRANT 03/17/2011 MARIA GUADALUPE PROJECT LANDSCAPE ARCHITECT, TON S V12.72 PERSONAL HISTORY OF COLONIC POLYPS 03/17/2011 CATHERINE PERALES APRN T 536.8 DYSPEPSIA 03/17/2011 CATHERINE PERALES APRN T 789.01 ABDOMINAL PAIN RIGHT UPPER QUADRANT 03/17/2011 CATHERINE PERALES APRN T V12.72 PERSONAL HISTORY OF COLONIC POLYPS 03/17/2011 MARIA GUADALUPE PROJECT LANDSCAPE ARCHITECT, TON S 536.8 DYSPEPSIA 03/17/2011 MARIA GUADALUPE PROJECT LANDSCAPE ARCHITECT, TON S 789.01 ABDOMINAL PAIN RIGHT UPPER QUADRANT 03/17/2011 MARIA GUADALUPE PROJECT LANDSCAPE ARCHITECT, TON S V12.72 PERSONAL HISTORY OF COLONIC POLYPS 03/17/2011 MARIA GUADALUPE PROJECT LANDSCAPE ARCHITECT, TON S 536.8 DYSPEPSIA 03/17/2011 MARIA GUADALUPE PROJECT LANDSCAPE ARCHITECT, TON S 789.01 ABDOMINAL PAIN RIGHT UPPER QUADRANT 03/17/2011 MARIA GUADALUPE PROJECT LANDSCAPE ARCHITECT, TON S V12.72 PERSONAL HISTORY OF COLONIC POLYPS 03/17/2011 MARIA GUADALUPE PROJECT LANDSCAPE ARCHITECT, TON S 536.8 DYSPEPSIA 03/17/2011 MARIA GUADALUPE PROJECT LANDSCAPE ARCHITECT, TON S 789.01 ABDOMINAL PAIN RIGHT UPPER QUADRANT 03/17/2011 MARIA GUADALUPE PROJECT LANDSCAPE ARCHITECT, TON S V12.72 PERSONAL HISTORY OF COLONIC POLYPS 03/17/2011 MARIA GUADALUPE PROJECT LANDSCAPE ARCHITECT, TON S 536.8 DYSPEPSIA 03/17/2011 MARIA GUADALUPE PROJECT LANDSCAPE ARCHITECT, TON S 789.01 ABDOMINAL PAIN RIGHT UPPER QUADRANT 03/17/2011 MARIA GUADALUPE PROJECT LANDSCAPE ARCHITECT, TON S V12.72 PERSONAL HISTORY OF COLONIC POLYPS 03/17/2011 VELASQUEZ KAUR PSYD L 536.8 DYSPEPSIA 03/17/2011 VELASQUEZ KAUR PSYD L 789.01 ABDOMINAL PAIN RIGHT UPPER QUADRANT 03/17/2011 VELASQUEZ KAUR PSYD L V12.72 PERSONAL HISTORY OF COLONIC POLYPS 03/17/2011 ROMANO JEWELS OTTO K 536.8 DYSPEPSIA 03/17/2011 ROMANO JEWELS OTTO K 789.01 ABDOMINAL PAIN RIGHT UPPER QUADRANT 03/17/2011 ROMANO JEWELS OTTO K V12.72 PERSONAL HISTORY OF COLONIC POLYPS 03/17/2011 VELASQUEZ KAUR PSYD L 536.8 DYSPEPSIA 03/17/2011 VELASQUEZ KAUR PSYD L 789.01 ABDOMINAL PAIN RIGHT UPPER QUADRANT 03/17/2011 VELASQUEZ KAUR PSYD L V12.72 PERSONAL HISTORY OF COLONIC POLYPS 03/17/2011 SYMONE POST APRN 536.8 DYSPEPSIA 03/17/2011 SYMONE POST APRN 789.01 ABDOMINAL PAIN RIGHT UPPER QUADRANT 03/17/2011 SYMONE POST APRN V12.72 PERSONAL HISTORY OF COLONIC POLYPS 03/17/2011 RICHARD VAUGHN JEWELS 536.8 DYSPEPSIA 03/17/2011 RICHARD VAUGHN, JEWELS 789.01 ABDOMINAL PAIN RIGHT UPPER QUADRANT 03/17/2011 RICHARD VAUGHN, JEWELS V12.72 PERSONAL HISTORY OF COLONIC POLYPS 03/17/2011 RICHARD VAUGHN, JEWELS 536.8 DYSPEPSIA 03/17/2011 RICHARD VAUGHN, JEWELS 789.01 ABDOMINAL PAIN RIGHT UPPER QUADRANT 03/17/2011 RICHARD VAUGHN, JEWELS V12.72 PERSONAL HISTORY OF COLONIC POLYPS 03/17/2011 RICHARD VAUGHN JEWELS 536.8 DYSPEPSIA 03/17/2011 RICHARD VAUGHN, JEWELS 789.01 ABDOMINAL PAIN RIGHT UPPER QUADRANT 03/17/2011 RICHARD VAUGHN, JEWELS V12.72 PERSONAL HISTORY OF COLONIC POLYPS 04/10/2011 Ot 530.81 04/10/2011 Ot 575.11 04/10/2011 Ot 575.8 04/21/2011 ROMANO JEWELS OTTO V45.89 OTHER POSTSURGICAL STATUS 04/21/2011 V45.89 OTHER POSTSURGICAL STATUS 04/21/2011 V45.89 OTHER POSTSURGICAL STATUS 04/21/2011 TON LERMA APRN V45.89 OTHER POSTSURGICAL STATUS 04/21/2011 MARJORIE STRONG APRN V45.89 OTHER POSTSURGICAL STATUS 04/21/2011 V45.89 OTHER POSTSURGICAL STATUS 04/21/2011 V45.89 OTHER POSTSURGICAL STATUS 04/21/2011 V45.89 OTHER POSTSURGICAL STATUS 04/21/2011 MARIA GUADALUPE PROJECT LANDSCAPE ARCHITECT, TON S V45.89 OTHER POSTSURGICAL STATUS 04/21/2011 MARIA GUADALUPE PROJECT LANDSCAPE ARCHITECT, TON S V45.89 OTHER POSTSURGICAL STATUS 04/21/2011 ISAIAS VALENZUELA MD V45.89 OTHER POSTSURGICAL STATUS 04/21/2011 MARIA GUADALUPE PROJECT LANDSCAPE ARCHITECT, TON S V45.89 OTHER POSTSURGICAL STATUS 04/21/2011 MARIA GUADALUPE PROJECT LANDSCAPE ARCHITECT, TON S V45.89 OTHER POSTSURGICAL STATUS 04/21/2011 MARIA GUADALUPE PROJECT LANDSCAPE ARCHITECT, TON S V45.89 OTHER POSTSURGICAL STATUS 04/21/2011 MARIA GUADALUPE PROJECT LANDSCAPE ARCHITECT, TON S V45.89 OTHER POSTSURGICAL STATUS 04/21/2011 MARIA GUADALUPE PROJECT LANDSCAPE ARCHITECT, TON S V45.89 OTHER POSTSURGICAL STATUS 04/21/2011 CATHERINE PERALES APRN V45.89 OTHER POSTSURGICAL STATUS 04/21/2011 MARIA GUADALUPE PROJECT LANDSCAPE ARCHITECT, TON S V45.89 OTHER POSTSURGICAL STATUS 04/21/2011 MARIA GUADALUPE PROJECT LANDSCAPE ARCHITECT, TON S V45.89 OTHER POSTSURGICAL STATUS 04/21/2011 MARIA GUADALUPE PROJECT LANDSCAPE ARCHITECT, TON S V45.89 OTHER POSTSURGICAL STATUS 04/21/2011 MARIA GUADALUPE PROJECT LANDSCAPE ARCHITECT, TON S V45.89 OTHER POSTSURGICAL STATUS 04/21/2011 VELASQUEZ KAUR PSYD V45.89 OTHER POSTSURGICAL STATUS 04/21/2011 JEWELS ROMANO DO V45.89 OTHER POSTSURGICAL STATUS 04/21/2011 VELASQUEZ KAUR PSYD L V45.89 OTHER POSTSURGICAL STATUS 04/21/2011 SYMONE POST APRN V45.89 OTHER POSTSURGICAL STATUS 04/21/2011 RICHARD PROJECT LANDSCAPE ARCHITECT, JEWELS V45.89 OTHER POSTSURGICAL STATUS 04/21/2011 RICHARD PROJECT LANDSCAPE ARCHITECT, JEWELS V45.89 OTHER POSTSURGICAL STATUS 04/21/2011 RICHARD PROJECT LANDSCAPE ARCHITECT, JEWELS V45.89 OTHER POSTSURGICAL STATUS 09/16/2011 JEWELS ROMANO DO 726.32 LATERAL EPICONDYLITIS [place] 09/16/2011 726.32 LATERAL EPICONDYLITIS [place] 09/16/2011 726.32 LATERAL EPICONDYLITIS [place] 09/16/2011 MARIA GUADALUPE VAUGHN, TON S 726.32 LATERAL EPICONDYLITIS [place] 09/16/2011 MARJORIE STRONG APRN 726.32 LATERAL EPICONDYLITIS [place] 09/16/2011 726.32 LATERAL EPICONDYLITIS [place] 09/16/2011 726.32 LATERAL EPICONDYLITIS [place] 09/16/2011 726.32 LATERAL EPICONDYLITIS [place] 09/16/2011 MARIA GUADALUPE PROJECT LANDSCAPE ARCHITECT, TON S 726.32 LATERAL EPICONDYLITIS [place] 09/16/2011 MARIA GUADALUPE CHAUDHARIN, TON S 726.32 LATERAL EPICONDYLITIS [place] 09/16/2011 ISAIAS VALENZUELA MD 726.32 LATERAL EPICONDYLITIS [place] 09/16/2011 MARIA GUADALUPE CHAUDHARIN, TON S 726.32 LATERAL EPICONDYLITIS [place] 09/16/2011 MARIA GUADALUPE CHAUDHARIN, TON S 726.32 LATERAL EPICONDYLITIS [place] 09/16/2011 MARIA GUADALUPE CHAUDHARIN, TON S 726.32 LATERAL EPICONDYLITIS [place] 09/16/2011 MARIA GUADALUPE CHAUDHARIN, TON S 726.32 LATERAL EPICONDYLITIS [place] 09/16/2011 MARIA GUADALUPE CHAUDHARIN, TON S 726.32 LATERAL EPICONDYLITIS [place] 09/16/2011 CATHERINE PERALES APRN 726.32 LATERAL EPICONDYLITIS [place] 09/16/2011 MARIA GUADALUPE CHAUDHARIN, TON S 726.32 LATERAL EPICONDYLITIS [place] 09/16/2011 MARIA GUADALUPE CHAUDHARIN, TON S 726.32 LATERAL EPICONDYLITIS [place] 09/16/2011 MARIA GUADALUPE VAUGHN, TON S 726.32 LATERAL EPICONDYLITIS [place] 09/16/2011 MARIA GUADALUPE CHAUDHARIN, TON S 726.32 LATERAL EPICONDYLITIS [place] 09/16/2011 VELASQUEZ KAUR PSYD 726.32 LATERAL EPICONDYLITIS [place] 09/16/2011 JEWELS ROMANO DO 726.32 LATERAL EPICONDYLITIS [place] 09/16/2011 VELASQUEZ KAUR PSYD 726.32 LATERAL EPICONDYLITIS [place] 09/16/2011 SYMONE POST APRN 726.32 LATERAL EPICONDYLITIS [place] 09/16/2011 RICHARD PROJECT LANDSCAPE ARCHITECT, JEWELS 726.32 LATERAL EPICONDYLITIS [place] 09/16/2011 RICHARD PROJECT LANDSCAPE ARCHITECT, JEWELS 726.32 LATERAL EPICONDYLITIS [place] 09/16/2011 RICHARD PROJECT LANDSCAPE ARCHITECT, JEWELS 726.32 LATERAL EPICONDYLITIS [place] 04/12/2012 JUAN ANTONIO OTTO JEWELS Jessi 008.8 GASTROENTERITIS, VIRAL 04/12/2012 JUAN ANTONIO OTTOJEWELS V76.10 BREAST CANCER SCREENING 04/12/2012 JUAN ANTONIO OTTOJEWELS V76.2 CERVICAL CANCER SCREENING (PAP SMEAR) 04/12/2012 JUAN ANTONIO OTTOJEWELS V76.51 COLON CANCER SCREENING 04/12/2012 008.8 GASTROENTERITIS, VIRAL 04/12/2012 V76.10 BREAST CANCER SCREENING 04/12/2012 V76.2 CERVICAL CANCER SCREENING (PAP SMEAR) 04/12/2012 V76.51 COLON CANCER SCREENING 04/12/2012 008.8 GASTROENTERITIS, VIRAL 04/12/2012 V76.10 BREAST CANCER SCREENING 04/12/2012 V76.2 CERVICAL CANCER SCREENING (PAP SMEAR) 04/12/2012 V76.51 COLON CANCER SCREENING 04/12/2012 TON LERMA APRN S 008.8 GASTROENTERITIS, VIRAL 04/12/2012 BRITNEY LERMA APRNA S V76.10 BREAST CANCER SCREENING 04/12/2012 TON LERMA APRN S V76.2 CERVICAL CANCER SCREENING (PAP SMEAR) 04/12/2012 TON LERMA APRN S V76.51 COLON CANCER SCREENING 04/12/2012 MARJORIE STRONG APRN 008.8 GASTROENTERITIS, VIRAL 04/12/2012 MARJORIE STRONG APRN V76.10 BREAST CANCER SCREENING 04/12/2012 MARJORIE STRONG APRN V76.2 CERVICAL CANCER SCREENING (PAP SMEAR) 04/12/2012 MARJORIE STRONG APRN V76.51 COLON CANCER SCREENING 04/12/2012 008.8 GASTROENTERITIS, VIRAL 04/12/2012 V76.10 BREAST CANCER SCREENING 04/12/2012 V76.2 CERVICAL CANCER SCREENING (PAP SMEAR) 04/12/2012 V76.51 COLON CANCER SCREENING 04/12/2012 008.8 GASTROENTERITIS, VIRAL 04/12/2012 V76.10 BREAST CANCER SCREENING 04/12/2012 V76.2 CERVICAL CANCER SCREENING (PAP SMEAR) 04/12/2012 V76.51 COLON CANCER SCREENING 04/12/2012 008.8 GASTROENTERITIS, VIRAL 04/12/2012 V76.10 BREAST CANCER SCREENING 04/12/2012 V76.2 CERVICAL CANCER SCREENING (PAP SMEAR) 04/12/2012 V76.51 COLON CANCER SCREENING 04/12/2012 MARIA GUADALUPE PROJECT LANDSCAPE ARCHITECT, TON S 008.8 GASTROENTERITIS, VIRAL 04/12/2012 MARIA GUADALUPE PROJECT LANDSCAPE ARCHITECT, TON S V76.10 BREAST CANCER SCREENING 04/12/2012 MARIA GUADALUPE PROJECT LANDSCAPE ARCHITECT, TON S V76.2 CERVICAL CANCER SCREENING (PAP SMEAR) 04/12/2012 MARIA GUADALUPE PROJECT LANDSCAPE ARCHITECT, TON S V76.51 COLON CANCER SCREENING 04/12/2012 MARIA GUADALUPE PROJECT LANDSCAPE ARCHITECT, TON S 008.8 GASTROENTERITIS, VIRAL 04/12/2012 MARIA GUADALUPE PROJECT LANDSCAPE ARCHITECT, TON S V76.10 BREAST CANCER SCREENING 04/12/2012 MARIA GUADALUPE PROJECT LANDSCAPE ARCHITECT, TON S V76.2 CERVICAL CANCER SCREENING (PAP SMEAR) 04/12/2012 MARIA GUADALUPE PROJECT LANDSCAPE ARCHITECT, TON S V76.51 COLON CANCER SCREENING 04/12/2012 ISAIAS VALENZUELA MD 008.8 GASTROENTERITIS, VIRAL 04/12/2012 ISAIAS VALENZUELA MD V76.10 BREAST CANCER SCREENING 04/12/2012 ISAIAS VALENZUELA MD V76.2 CERVICAL CANCER SCREENING (PAP SMEAR) 04/12/2012 ISAIAS VALENZUELA MD V76.51 COLON CANCER SCREENING 04/12/2012 MARIA GUADALUPE PROJECT LANDSCAPE ARCHITECT, TON S 008.8 GASTROENTERITIS, VIRAL 04/12/2012 MARIA GUADALUPE PROJECT LANDSCAPE ARCHITECT, TON S V76.10 BREAST CANCER SCREENING 04/12/2012 MARIA GUADALUPE PROJECT LANDSCAPE ARCHITECT, TON S V76.2 CERVICAL CANCER SCREENING (PAP SMEAR) 04/12/2012 MARIA GUADALUPE PROJECT LANDSCAPE ARCHITECT, TON S V76.51 COLON CANCER SCREENING 04/12/2012 MARIA GUADALUPE PROJECT LANDSCAPE ARCHITECT, TON S 008.8 GASTROENTERITIS, VIRAL 04/12/2012 MARIA GUADALUPE PROJECT LANDSCAPE ARCHITECT, TON S V76.10 BREAST CANCER SCREENING 04/12/2012 MARIA GUADALUPE PROJECT LANDSCAPE ARCHITECT, TON S V76.2 CERVICAL CANCER SCREENING (PAP SMEAR) 04/12/2012 MARIA GUADALUPE PROJECT LANDSCAPE ARCHITECT, TON S V76.51 COLON CANCER SCREENING 04/12/2012 MARIA GUADALUPE PROJECT LANDSCAPE ARCHITECT, TON S 008.8 GASTROENTERITIS, VIRAL 04/12/2012 MARIA GUADALUPE PROJECT LANDSCAPE ARCHITECT, TON S V76.10 BREAST CANCER SCREENING 04/12/2012 MARIA GUADALUPE PROJECT LANDSCAPE ARCHITECT, TON S V76.2 CERVICAL CANCER SCREENING (PAP SMEAR) 04/12/2012 MARIA GUADALUPE PROJECT LANDSCAPE ARCHITECT, TON S V76.51 COLON CANCER SCREENING 04/12/2012 MARIA GUADALUPE PROJECT LANDSCAPE ARCHITECT, TON S 008.8 GASTROENTERITIS, VIRAL 04/12/2012 MARIA GUADALUPE PROJECT LANDSCAPE ARCHITECT, TON S V76.10 BREAST CANCER SCREENING 04/12/2012 MARIA GUADALUPE PROJECT LANDSCAPE ARCHITECT, TON S V76.2 CERVICAL CANCER SCREENING (PAP SMEAR) 04/12/2012 MARIA GUADALUPE PROJECT LANDSCAPE ARCHITECT, TON S V76.51 COLON CANCER SCREENING 04/12/2012 MARIA GUADALUPE PROJECT LANDSCAPE ARCHITECT, TON S 008.8 GASTROENTERITIS, VIRAL 04/12/2012 MARIA GUADALUPE PROJECT LANDSCAPE ARCHITECT, TON S V76.10 BREAST CANCER SCREENING 04/12/2012 MARIA GUADALUPE PROJECT LANDSCAPE ARCHITECT, TON S V76.2 CERVICAL CANCER SCREENING (PAP SMEAR) 04/12/2012 MARIA GUADALUPE PROJECT LANDSCAPE ARCHITECT, TON S V76.51 COLON CANCER SCREENING 04/12/2012 CATHERINE PERALES APRN T 008.8 GASTROENTERITIS, VIRAL 04/12/2012 CATHERINE PERALES APRN T V76.10 BREAST CANCER SCREENING 04/12/2012 CATHERINE PERALES APRN T V76.2 CERVICAL CANCER SCREENING (PAP SMEAR) 04/12/2012 CATHERINE PERALES APRN T V76.51 COLON CANCER SCREENING 04/12/2012 MARIA GUADALUPE PROJECT LANDSCAPE ARCHITECT, TON S 008.8 GASTROENTERITIS, VIRAL 04/12/2012 MARIA GUADALUPE PROJECT LANDSCAPE ARCHITECT, TON S V76.10 BREAST CANCER SCREENING 04/12/2012 MARIA GUADALUPE PROJECT LANDSCAPE ARCHITECT, TON S V76.2 CERVICAL CANCER SCREENING (PAP SMEAR) 04/12/2012 MARIA GUADALUPE PROJECT LANDSCAPE ARCHITECT, TON S V76.51 COLON CANCER SCREENING 04/12/2012 MARIA GUADALUPE CHAUDHARIN, TON S 008.8 GASTROENTERITIS, VIRAL 04/12/2012 MARIA GUADALUPE PROJECT LANDSCAPE ARCHITECT, TON S V76.10 BREAST CANCER SCREENING 04/12/2012 MARIA GUADALUPE PROJECT LANDSCAPE ARCHITECT, TON S V76.2 CERVICAL CANCER SCREENING (PAP SMEAR) 04/12/2012 MARIA GUADALUPE PROJECT LANDSCAPE ARCHITECT, TON S V76.51 COLON CANCER SCREENING 04/12/2012 MARIA GUADALUPE CHAUDHARIN, TON S 008.8 GASTROENTERITIS, VIRAL 04/12/2012 MARIA GUADALUPE PROJECT LANDSCAPE ARCHITECT, TON S V76.10 BREAST CANCER SCREENING 04/12/2012 MARIA GUADALUPE PROJECT LANDSCAPE ARCHITECT, TON S V76.2 CERVICAL CANCER SCREENING (PAP SMEAR) 04/12/2012 MARIA GUADALUPE PROJECT LANDSCAPE ARCHITECT, TON S V76.51 COLON CANCER SCREENING 04/12/2012 MARIA GUADALUPE CHAUDHARIN, TON S 008.8 GASTROENTERITIS, VIRAL 04/12/2012 MARIA GUADALUPE PROJECT LANDSCAPE ARCHITECT, TON S V76.10 BREAST CANCER SCREENING 04/12/2012 MARIA GUADALUPE CHAUDHARIN, TON S V76.2 CERVICAL CANCER SCREENING (PAP SMEAR) 04/12/2012 MARIA GUADALUPE PROJECT LANDSCAPE ARCHITECT, TON S V76.51 COLON CANCER SCREENING 04/12/2012 VELASQUEZ KAUR PSYD 008.8 GASTROENTERITIS, VIRAL 04/12/2012 VELASQUEZ KAUR PSYD L V76.10 BREAST CANCER SCREENING 04/12/2012 VELASQUEZ KAUR PSYD V76.2 CERVICAL CANCER SCREENING (PAP SMEAR) 04/12/2012 VELASQUEZ KAUR PSYD V76.51 COLON CANCER SCREENING 04/12/2012 ROMANO DOJEWLES K 008.8 GASTROENTERITIS, VIRAL 04/12/2012 ROMANO DOSACHAA K V76.10 BREAST CANCER SCREENING 04/12/2012 ROMANO DO JEWELS K V76.2 CERVICAL CANCER SCREENING (PAP SMEAR) 04/12/2012 ROMANO DO JEWELS K V76.51 COLON CANCER SCREENING 04/12/2012 VELASQUEZ KAUR PSYD 008.8 GASTROENTERITIS, VIRAL 04/12/2012 VELASQUEZ KAUR PSYD L V76.10 BREAST CANCER SCREENING 04/12/2012 VELASQUEZ KAUR PSYD L V76.2 CERVICAL CANCER SCREENING (PAP SMEAR) 04/12/2012 VELASQUEZ KAUR PSYD V76.51 COLON CANCER SCREENING 04/12/2012 POSTSYMONE Ventura APRN 008.8 GASTROENTERITIS, VIRAL 04/12/2012 POST SYMONE VAUGHN V76.10 BREAST CANCER SCREENING 04/12/2012 POST SYMONE VAUGHN V76.2 CERVICAL CANCER SCREENING (PAP SMEAR) 04/12/2012 POSTSYMONE Ventura APRN V76.51 COLON CANCER SCREENING 04/12/2012 RICHARD PROJECT LANDSCAPE ARCHITECT, JEWELS 008.8 GASTROENTERITIS, VIRAL 04/12/2012 RICHARD PROJECT LANDSCAPE ARCHITECT, JEWELS V76.10 BREAST CANCER SCREENING 04/12/2012 RICHARD PROJECT LANDSCAPE ARCHITECT, JEWELS V76.2 CERVICAL CANCER SCREENING (PAP SMEAR) 04/12/2012 RICHARD PROJECT LANDSCAPE ARCHITECT, JEWELS V76.51 COLON CANCER SCREENING 04/12/2012 RICHARD PROJECT LANDSCAPE ARCHITECT, JEWELS 008.8 GASTROENTERITIS, VIRAL 04/12/2012 RICHARD PROJECT LANDSCAPE ARCHITECT, JEWELS V76.10 BREAST CANCER SCREENING 04/12/2012 RICHARD PROJECT LANDSCAPE ARCHITECT, JEWELS V76.2 CERVICAL CANCER SCREENING (PAP SMEAR) 04/12/2012 RIHCARD PROJECT LANDSCAPE ARCHITECT, JEWELS V76.51 COLON CANCER SCREENING 04/12/2012 RICHARD PROJECT LANDSCAPE ARCHITECT, JEWELS 008.8 GASTROENTERITIS, VIRAL 04/12/2012 RICHARD PROJECT LANDSCAPE ARCHITECT, JEWELS V76.10 BREAST CANCER SCREENING 04/12/2012 RICHARD PROJECT LANDSCAPE ARCHITECT, JEWELS V76.2 CERVICAL CANCER SCREENING (PAP SMEAR) 04/12/2012 RICHARD PROJECT LANDSCAPE ARCHITECT, JEWELS V76.51 COLON CANCER SCREENING 04/17/2012 JEWELS ROMANO DO 528.2 ORAL APHTHAE 04/17/2012 528.2 ORAL APHTHAE 04/17/2012 528.2 ORAL APHTHAE 04/17/2012 TON LERMA APRN 528.2 ORAL APHTHAE 04/17/2012 MARJORIE STRONG APRN 528.2 ORAL APHTHAE 04/17/2012 528.2 ORAL APHTHAE 04/17/2012 528.2 ORAL APHTHAE 04/17/2012 528.2 ORAL APHTHAE 04/17/2012 TON LERMA APRN 528.2 ORAL APHTHAE 04/17/2012 MARIA GUADALUPE VAUGHN, TON S 528.2 ORAL APHTHAE 04/17/2012 ISAIAS VALENZUELA MD 528.2 ORAL APHTHAE 04/17/2012 MARIA GUADALUPE PROJECT LANDSCAPE ARCHITECT, TON S 528.2 ORAL APHTHAE 04/17/2012 MARIA GUADALUPE PROJECT LANDSCAPE ARCHITECT, TON S 528.2 ORAL APHTHAE 04/17/2012 MARIA GUADALUPE PROJECT LANDSCAPE ARCHITECT, TON S 528.2 ORAL APHTHAE 04/17/2012 MARIA GUADALUPE PROJECT LANDSCAPE ARCHITECT, TON S 528.2 ORAL APHTHAE 04/17/2012 MARIA GUADALUPE PROJECT LANDSCAPE ARCHITECT, TON S 528.2 ORAL APHTHAE 04/17/2012 CATHERINE PERALES APRN 528.2 ORAL APHTHAE 04/17/2012 MARIA GUADALUPE PROJECT LANDSCAPE ARCHITECT, TON S 528.2 ORAL APHTHAE 04/17/2012 MARIA GUADALUPE PROJECT LANDSCAPE ARCHITECT, TON S 528.2 ORAL APHTHAE 04/17/2012 MARIA GUADALUPE VAUGHN, TON S 528.2 ORAL APHTHAE 04/17/2012 MARIA GUADALUPE PROJECT LANDSCAPE ARCHITECT, TON S 528.2 ORAL APHTHAE 04/17/2012 VELASQUEZ KAUR PSYD L 528.2 ORAL APHTHAE 04/17/2012 JEWELS ROMANO DO 528.2 ORAL APHTHAE 04/17/2012 VELASQUEZ KAUR PSYD L 528.2 ORAL APHTHAE 04/17/2012 SYMONE POST APRN 528.2 ORAL APHTHAE 04/17/2012 RICHARD PROJECT LANDSCAPE ARCHITECT, JEWELS 528.2 ORAL APHTHAE 04/17/2012 RICHARD PROJECT LANDSCAPE ARCHITECT, JEWELS 528.2 ORAL APHTHAE 04/17/2012 RICHARD PROJECT LANDSCAPE ARCHITECT, JEWELS 528.2 ORAL APHTHAE 04/20/2012 Ot 528.9 ORAL SOFT TISSUE DIS NEC 04/22/2012 Ot 529.0 GLOSSITIS 07/01/2012 535.50 GASTRITIS UNSPEC 07/01/2012 729.1 MYALGIA AND MYOSITIS UNSPECIFIED 07/01/2012 535.50 GASTRITIS UNSPEC 07/01/2012 729.1 MYALGIA AND MYOSITIS UNSPECIFIED 07/01/2012 MARIA GUADALUPE PROJECT LANDSCAPE ARCHITECT, TON S 535.50 GASTRITIS UNSPEC 07/01/2012 MARIA GUADALUPE VAUGHN, TON S 729.1 MYALGIA AND MYOSITIS UNSPECIFIED 07/01/2012 MARJORIE STRONG APRN 535.50 GASTRITIS UNSPEC 07/01/2012 MARJORIE STRONG APRN 729.1 MYALGIA AND MYOSITIS UNSPECIFIED 07/01/2012 535.50 GASTRITIS UNSPEC 07/01/2012 729.1 MYALGIA AND MYOSITIS UNSPECIFIED 07/01/2012 535.50 GASTRITIS UNSPEC 07/01/2012 729.1 MYALGIA AND MYOSITIS UNSPECIFIED 07/01/2012 535.50 GASTRITIS UNSPEC 07/01/2012 729.1 MYALGIA AND MYOSITIS UNSPECIFIED 07/01/2012 QUINTEN LERMA APRNNDA S 535.50 GASTRITIS UNSPEC 07/01/2012 QUINTEN LERMA APRNNDA S 729.1 MYALGIA AND MYOSITIS UNSPECIFIED 07/01/2012 QUINTEN LERMA APRNNDA S 535.50 GASTRITIS UNSPEC 07/01/2012 MARIA GUADALUPE VAUGHN, TON S 729.1 MYALGIA AND MYOSITIS UNSPECIFIED 07/01/2012 ISAIAS VALENZUELA MD 535.50 GASTRITIS UNSPEC 07/01/2012 ISAIAS VALENZUELA MD 729.1 MYALGIA AND MYOSITIS UNSPECIFIED 07/01/2012 MARIA GUADALUPE VAUGHN TON S 535.50 GASTRITIS UNSPEC 07/01/2012 MARIA GUADALUPE VAUGHN, TON S 729.1 MYALGIA AND MYOSITIS UNSPECIFIED 07/01/2012 MARIA GUADALUPE VAUGHN TON S 535.50 GASTRITIS UNSPEC 07/01/2012 MARIA GUADALUPE VAUGHN, TON S 729.1 MYALGIA AND MYOSITIS UNSPECIFIED 07/01/2012 MARIA GUADALUPE VAUGHN, TON S 535.50 GASTRITIS UNSPEC 07/01/2012 MARIA GUADALUPE VAUGHN, TON S 729.1 MYALGIA AND MYOSITIS UNSPECIFIED 07/01/2012 MARIA GUADALUPE VAUGHN TON S 535.50 GASTRITIS UNSPEC 07/01/2012 MARIA GUADALUPE VAUGHN, TON S 729.1 MYALGIA AND MYOSITIS UNSPECIFIED 07/01/2012 MARIA GUADALUPE PROJECT LANDSCAPE ARCHITECT, TON S 535.50 GASTRITIS UNSPEC 07/01/2012 MARIA GUADALUPEGARY VAUGHN, TON S 729.1 MYALGIA AND MYOSITIS UNSPECIFIED 07/01/2012 CATHERINE PERALES APRN 535.50 GASTRITIS UNSPEC 07/01/2012 CATHERINE PERALES APRN 729.1 MYALGIA AND MYOSITIS UNSPECIFIED 07/01/2012 MARIA GUADALUPE VAUGHN TON S 535.50 GASTRITIS UNSPEC 07/01/2012 MARIA GUADALUPE VAUGHN, TON S 729.1 MYALGIA AND MYOSITIS UNSPECIFIED 07/01/2012 MARIA GUADALUPE VAUGHN, TON S 535.50 GASTRITIS UNSPEC 07/01/2012 MARIA GUADALUPE VAUGHN, TON S 729.1 MYALGIA AND MYOSITIS UNSPECIFIED 07/01/2012 MARIA GUADALUPE VAUGHN, TON S 535.50 GASTRITIS UNSPEC 07/01/2012 MARIA GUADALUPE VAUGHN, TON S 729.1 MYALGIA AND MYOSITIS UNSPECIFIED 07/01/2012 MARIA GUADALUPE VAUGHN TON S 535.50 GASTRITIS UNSPEC 07/01/2012 MARIA GUADALUPE VAUGHN, TON S 729.1 MYALGIA AND MYOSITIS UNSPECIFIED 07/01/2012 VELASQUEZ KAUR PSYD 535.50 GASTRITIS UNSPEC 07/01/2012 VELASQUEZ KAUR PSYD 729.1 MYALGIA AND MYOSITIS UNSPECIFIED 07/01/2012 JEWELS ROMANO DO K 535.50 GASTRITIS UNSPEC 07/01/2012 JEWELS ROMANO DO K 729.1 MYALGIA AND MYOSITIS UNSPECIFIED 07/01/2012 VELASQUEZ KAUR PSYD 535.50 GASTRITIS UNSPEC 07/01/2012 VELASQUEZ KAUR PSYD L 729.1 MYALGIA AND MYOSITIS UNSPECIFIED 07/01/2012 SYMONE POST APRN 535.50 GASTRITIS UNSPEC 07/01/2012 SYMONE POST APRN 729.1 MYALGIA AND MYOSITIS UNSPECIFIED 07/01/2012 JEWELS RAMOS APRN 535.50 GASTRITIS UNSPEC 07/01/2012 JEWELS RAMOS APRN 729.1 MYALGIA AND MYOSITIS UNSPECIFIED 07/01/2012 JEWELS RAMOS APRN 535.50 GASTRITIS UNSPEC 07/01/2012 RICHARDALFREDO VAUGHN, JEWELS 729.1 MYALGIA AND MYOSITIS UNSPECIFIED 07/01/2012 JEWELS RAMOS APRN 535.50 GASTRITIS UNSPEC 07/01/2012 RICHARD PROJECT LANDSCAPE ARCHITECT, JEWELS 729.1 MYALGIA AND MYOSITIS UNSPECIFIED 07/05/2012 Ot 729.5 PAIN IN LIMB 08/04/2012 MARJORIE STRONG APRN 782.3 EDEMA 08/04/2012 782.3 EDEMA 08/04/2012 782.3 EDEMA 08/04/2012 782.3 EDEMA 08/04/2012 MARIA GUADALUPE VAUGHN, TON S 782.3 EDEMA 08/04/2012 MARIA GUADALUPE VAUGHN, TON S 782.3 EDEMA 08/04/2012 ISAIAS VALENZUELA MD 782.3 EDEMA 08/04/2012 MARIA GUADALUPE PROJECT LANDSCAPE ARCHITECT, TON S 782.3 EDEMA 08/04/2012 MARIA GUADALUPE VAUGHN, TON S 782.3 EDEMA 08/04/2012 MARIA GUADALUPE PROJECT LANDSCAPE ARCHITECT, TON S 782.3 EDEMA 08/04/2012 MARIA GUADALUPE PROJECT LANDSCAPE ARCHITECT, TON S 782.3 EDEMA 08/04/2012 MARIA GUADALUPE VAUGHN, TON S 782.3 EDEMA 08/04/2012 CATHERINE PERALES APRN 782.3 EDEMA 08/04/2012 MARIA GUADALUPE PROJECT LANDSCAPE ARCHITECT, TON S 782.3 EDEMA 08/04/2012 MARIA GUADALUPE VAUGHN, TON S 782.3 EDEMA 08/04/2012 MARIA GUADALUPE CHAUDHARIN, TON S 782.3 EDEMA 08/04/2012 MARIA GUADALUPE PROJECT LANDSCAPE ARCHITECT, TON S 782.3 EDEMA 08/04/2012 VELASQUEZ KAUR PSYD 782.3 EDEMA 08/04/2012 JEWELS ROMANO DO 782.3 EDEMA 08/04/2012 VELASQUEZ KAUR PSYD 782.3 EDEMA 08/04/2012 SYMONE POST APRN 782.3 EDEMA 08/04/2012 JEWELS RAMOS APRN 782.3 EDEMA 08/04/2012 RICHARD VAUGHN, JEWELS 782.3 EDEMA 08/04/2012 RICHARD PROJECT LANDSCAPE ARCHITECTJEWELS Ramos 782.3 EDEMA 08/18/2012 780.4 DIZZINESS AND VERTIGO 08/18/2012 780.4 DIZZINESS AND VERTIGO 08/18/2012 780.4 DIZZINESS AND VERTIGO 08/18/2012 MARIA GUADALUPE PROJECT LANDSCAPE ARCHITECT, TON S 780.4 DIZZINESS AND VERTIGO 08/18/2012 MARIA GUADALUPE PROJECT LANDSCAPE ARCHITECT, TNO S 780.4 DIZZINESS AND VERTIGO 08/18/2012 ISAIAS VALENZUELA MD 780.4 DIZZINESS AND VERTIGO 08/18/2012 MARIA GUADALUPE PROJECT LANDSCAPE ARCHITECT, TON S 780.4 DIZZINESS AND VERTIGO 08/18/2012 MARIA GUADALUPE PROJECT LANDSCAPE ARCHITECT, TON S 780.4 DIZZINESS AND VERTIGO 08/18/2012 MARIA GUADALUPE PROJECT LANDSCAPE ARCHITECT, TON S 780.4 DIZZINESS AND VERTIGO 08/18/2012 MARIA GUADALUPE PROJECT LANDSCAPE ARCHITECT, TON S 780.4 DIZZINESS AND VERTIGO 08/18/2012 MARIA GUADALUPE PROJECT LANDSCAPE ARCHITECT, TON S 780.4 DIZZINESS AND VERTIGO 08/18/2012 CATHERINE PERALES APRN 780.4 DIZZINESS AND VERTIGO 08/18/2012 MARIA GUADALUPE PROJECT LANDSCAPE ARCHITECT, TON S 780.4 DIZZINESS AND VERTIGO 08/18/2012 MARIA GUADALUPE PROJECT LANDSCAPE ARCHITECT, TON S 780.4 DIZZINESS AND VERTIGO 08/18/2012 MARIA GUADALUPE PROJECT LANDSCAPE ARCHITECT, TON S 780.4 DIZZINESS AND VERTIGO 08/18/2012 MARIA GUADALUPE PROJECT LANDSCAPE ARCHITECT, TON S 780.4 DIZZINESS AND VERTIGO 08/18/2012 VELASQUEZ KAUR PSYD 780.4 DIZZINESS AND VERTIGO 08/18/2012 JEWELS ROMANO DO 780.4 DIZZINESS AND VERTIGO 08/18/2012 VELASQUEZ KAUR PSYD 780.4 DIZZINESS AND VERTIGO 08/18/2012 SYMONE POST APRN 780.4 DIZZINESS AND VERTIGO 08/18/2012 RICHARD PROJECT LANDSCAPE ARCHITECTJEWELS Ramos 780.4 DIZZINESS AND VERTIGO 08/18/2012 RICHARD PROJECT LANDSCAPE ARCHITECTJEWELS Ramos 780.4 DIZZINESS AND VERTIGO 08/18/2012 RICHARD PROJECT LANDSCAPE ARCHITECT, JEWELS 780.4 DIZZINESS AND VERTIGO 11/03/2012 530.81 GERD 11/03/2012 789.06 ABDOMINAL PAIN EPIGASTRIC 11/03/2012 530.81 GERD 11/03/2012 789.06 ABDOMINAL PAIN EPIGASTRIC 11/03/2012 MARIA GUADALUPE PROJECT LANDSCAPE ARCHITECT, TON S 530.81 GERD 11/03/2012 MARIA GUADALUPE PROJECT LANDSCAPE ARCHITECT, TON S 789.06 ABDOMINAL PAIN EPIGASTRIC 11/03/2012 MARIA GUADALUPE PROJECT LANDSCAPE ARCHITECT, TON S 530.81 GERD 11/03/2012 MARIA GUADALUPE PROJECT LANDSCAPE ARCHITECT, TON S 789.06 ABDOMINAL PAIN EPIGASTRIC 11/03/2012 ISAIAS VALENZUELA MD 530.81 GERD 11/03/2012 ISAIAS VALENZUELA MD 789.06 ABDOMINAL PAIN EPIGASTRIC 11/03/2012 MARIA GUADALUPE PROJECT LANDSCAPE ARCHITECT, TON S 530.81 GERD 11/03/2012 MARIA GUADALUPE PROJECT LANDSCAPE ARCHITECT, TON S 789.06 ABDOMINAL PAIN EPIGASTRIC 11/03/2012 MARIA GUADALUPE PROJECT LANDSCAPE ARCHITECT, TON S 530.81 GERD 11/03/2012 MARIA GUADALUPE PROJECT LANDSCAPE ARCHITECT, TON S 789.06 ABDOMINAL PAIN EPIGASTRIC 11/03/2012 MARIA GUADALUPE PROJECT LANDSCAPE ARCHITECT, TON S 530.81 GERD 11/03/2012 MARIA GUADALUPE PROJECT LANDSCAPE ARCHITECT, TON S 789.06 ABDOMINAL PAIN EPIGASTRIC 11/03/2012 MARIA GUADALUPE PROJECT LANDSCAPE ARCHITECT, TON S 530.81 GERD 11/03/2012 MARIA GUADALUPE PROJECT LANDSCAPE ARCHITECT, TON S 789.06 ABDOMINAL PAIN EPIGASTRIC 11/03/2012 MARIA GUADALUPE PROJECT LANDSCAPE ARCHITECT, TON S 530.81 GERD 11/03/2012 MARIA GUADALUPE PROJECT LANDSCAPE ARCHITECT, TON S 789.06 ABDOMINAL PAIN EPIGASTRIC 11/03/2012 DIAZ VAUGHN, CATHERINE T 530.81 GERD 11/03/2012 DIAZ PROJECT LANDSCAPE ARCHITECT, CATHERINE T 789.06 ABDOMINAL PAIN EPIGASTRIC 11/03/2012 MARI AGUADALUPE PROJECT LANDSCAPE ARCHITECT, TON S 530.81 GERD 11/03/2012 MARIA GUADALUPE PROJECT LANDSCAPE ARCHITECT, TON S 789.06 ABDOMINAL PAIN EPIGASTRIC 11/03/2012 MARIA GUADALUPE PROJECT LANDSCAPE ARCHITECT, TON S 530.81 GERD 11/03/2012 MARIA GUADALUPE PROJECT LANDSCAPE ARCHITECT, TON S 789.06 ABDOMINAL PAIN EPIGASTRIC 11/03/2012 MARIA GUADALUPE PROJECT LANDSCAPE ARCHITECT, TON S 530.81 GERD 11/03/2012 MARIA GUADALUPE PROJECT LANDSCAPE ARCHITECT, TON S 789.06 ABDOMINAL PAIN EPIGASTRIC 11/03/2012 MARIA GUADALUPE VAUGHN, TON S 530.81 GERD 11/03/2012 MARIA GUADALUPE VAUGHN, TON S 789.06 ABDOMINAL PAIN EPIGASTRIC 11/03/2012 VELASQUEZ KAUR PSYD ANN L 530.81 GERD 11/03/2012 VELASQUEZ KAUR PSYD L 789.06 ABDOMINAL PAIN EPIGASTRIC 11/03/2012 ROMANO DO, JEWELS K 530.81 GERD 11/03/2012 ROMANO DO, JEWELS K 789.06 ABDOMINAL PAIN EPIGASTRIC 11/03/2012 VELASQUEZ KAUR PSYD ANN L 530.81 GERD 11/03/2012 VELASQUEZ KAUR PSYD L 789.06 ABDOMINAL PAIN EPIGASTRIC 11/03/2012 SYMONE POST APRN 530.81 GERD 11/03/2012 SYMONE POST APRN 789.06 ABDOMINAL PAIN EPIGASTRIC 11/03/2012 RICHARD PROJECT LANDSCAPE ARCHITECT, JEWELS 530.81 GERD 11/03/2012 RICHARD PROJECT LANDSCAPE ARCHITECT, JEWELS 789.06 ABDOMINAL PAIN EPIGASTRIC 11/03/2012 RICHARD PROJECT LANDSCAPE ARCHITECT, JEWELS 530.81 GERD 11/03/2012 RICHARD PROJECT LANDSCAPE ARCHITECT, JEWELS 789.06 ABDOMINAL PAIN EPIGASTRIC 11/03/2012 RICHARD PROJECT LANDSCAPE ARCHITECT, JEWELS 530.81 GERD 11/03/2012 RICHARD PROJECT LANDSCAPE ARCHITECT, JEWELS 789.06 ABDOMINAL PAIN EPIGASTRIC 02/21/2013 MARIA GUADALUPE VAUGHN, TON S 611.6 GALACTORRHEA 02/21/2013 MARIA GUADALUPE VAUGHN, TON S V58.69 HIGH RISK MEDICATION 02/21/2013 ISAIAS VALENZUELA MD 611.6 GALACTORRHEA 02/21/2013 ISAIAS VALENZUELA MD V58.69 HIGH RISK MEDICATION 02/21/2013 MARIA GUADALUPE PROJECT LANDSCAPE ARCHITECT, TON S 611.6 GALACTORRHEA 02/21/2013 MARIA GUADALUPEGARY VAUGHN, TON S V58.69 HIGH RISK MEDICATION 02/21/2013 MARIA GUADALUPE PROJECT LANDSCAPE ARCHITECT, TON S 611.6 GALACTORRHEA 02/21/2013 MARIA GUADALUPE VAUGHN, TON S V58.69 HIGH RISK MEDICATION 02/21/2013 MARIA GUADALUPE VAUGHN, TON S 611.6 GALACTORRHEA 02/21/2013 MARIA GUADALUPE PROJECT LANDSCAPE ARCHITECT, TON S V58.69 HIGH RISK MEDICATION 02/21/2013 MARIA GUADALUPE PROJECT LANDSCAPE ARCHITECT, TON S 611.6 GALACTORRHEA 02/21/2013 MARIA GUADALUPE PROJECT LANDSCAPE ARCHITECT, TON S V58.69 HIGH RISK MEDICATION 02/21/2013 MARIA GUADALUPE PROJECT LANDSCAPE ARCHITECT, TON S 611.6 GALACTORRHEA 02/21/2013 MARIA GUADALUPE PROJECT LANDSCAPE ARCHITECT, TON S V58.69 HIGH RISK MEDICATION 02/21/2013 DIAZ VAUGHN CATHERINE T 611.6 GALACTORRHEA 02/21/2013 DIAZ PROJECT LANDSCAPE ARCHITECT, CATHERINE T V58.69 HIGH RISK MEDICATION 02/21/2013 MARIA GUADALUPE PROJECT LANDSCAPE ARCHITECT, TON S 611.6 GALACTORRHEA 02/21/2013 MARIA GUADALUPE PROJECT LANDSCAPE ARCHITECT, TON S V58.69 HIGH RISK MEDICATION 02/21/2013 MARIA GUADALUPE PROJECT LANDSCAPE ARCHITECT, TON S 611.6 GALACTORRHEA 02/21/2013 MARIA GUADALUPE PROJECT LANDSCAPE ARCHITECT, TON S V58.69 HIGH RISK MEDICATION 02/21/2013 MARIA GUADALUPE PROJECT LANDSCAPE ARCHITECT, TON S 611.6 GALACTORRHEA 02/21/2013 MARIA GUADALUPE PROJECT LANDSCAPE ARCHITECT, TON S V58.69 HIGH RISK MEDICATION 02/21/2013 MARIA GUADALUPE PROJECT LANDSCAPE ARCHITECT, TON S 611.6 GALACTORRHEA 02/21/2013 MARIA GUADALUPE PROJECT LANDSCAPE ARCHITECT, TON S V58.69 HIGH RISK MEDICATION 02/21/2013 VELASQUEZ KAUR PSYD L 611.6 GALACTORRHEA 02/21/2013 VELASQUEZ KAUR PSYD L V58.69 HIGH RISK MEDICATION 02/21/2013 ROMANO DO, JEWELS K 611.6 GALACTORRHEA 02/21/2013 ROMANO DO, JEWELS K V58.69 HIGH RISK MEDICATION 02/21/2013 VELASQUEZ KAUR PSYD ANN L 611.6 GALACTORRHEA 02/21/2013 VELASQUEZ KAUR PSYD ANN L V58.69 HIGH RISK MEDICATION 02/21/2013 SYMONE POST APRN 611.6 GALACTORRHEA 02/21/2013 SYMONE POST APRN V58.69 HIGH RISK MEDICATION 02/21/2013 RICHARD JOHANA JEWELS 611.6 GALACTORRHEA 02/21/2013 RICHARD PROJECT LANDSCAPE ARCHITECT, JEWELS V58.69 HIGH RISK MEDICATION 02/21/2013 RICHARD PROJECT LANDSCAPE ARCHITECT, JEWELS 611.6 GALACTORRHEA 02/21/2013 RICHARD PROJECT LANDSCAPE ARCHITECT, JEWELS V58.69 HIGH RISK MEDICATION 02/21/2013 RICHARD PROJECT LANDSCAPE ARCHITECT, JEWELS 611.6 GALACTORRHEA 02/21/2013 RICHARD PROJECT LANDSCAPE ARCHITECT, JEWELS V58.69 HIGH RISK MEDICATION 03/08/2013 ISAIAS VALENZUELA MD 461.9 SINUSITIS ACUTE 03/08/2013 MARIA GUADALUPE PROJECT LANDSCAPE ARCHITECT, TON S 461.9 SINUSITIS ACUTE 03/08/2013 MARIA GUADALUPE PROJECT LANDSCAPE ARCHITECT, TON S 461.9 SINUSITIS ACUTE 03/08/2013 MARIA GUADALUPE PROJECT LANDSCAPE ARCHITECT, TON S 461.9 SINUSITIS ACUTE 03/08/2013 MARIA GUADALUPE PROJECT LANDSCAPE ARCHITECT, TON S 461.9 SINUSITIS ACUTE 03/08/2013 MARIA GUADALUPE PROJECT LANDSCAPE ARCHITECT, TON S 461.9 SINUSITIS ACUTE 03/08/2013 CATHERINE PERALES APRN 461.9 SINUSITIS ACUTE 03/08/2013 MARIA GUADALUPE PROJECT LANDSCAPE ARCHITECT, TON S 461.9 SINUSITIS ACUTE 03/08/2013 MARIA GUADALUPE PROJECT LANDSCAPE ARCHITECT, TON S 461.9 SINUSITIS ACUTE 03/08/2013 MARIA GUADALUPE PROJECT LANDSCAPE ARCHITECT, TON S 461.9 SINUSITIS ACUTE 03/08/2013 MARIA GUADALUPE PROJECT LANDSCAPE ARCHITECT, TON S 461.9 SINUSITIS ACUTE 03/08/2013 VELASQUEZ KAUR PSYD 461.9 SINUSITIS ACUTE 03/08/2013 JEWELS ROMANO DO 461.9 SINUSITIS ACUTE 03/08/2013 VELASQUEZ KAUR PSYD 461.9 SINUSITIS ACUTE 03/08/2013 SYMONE POST APRN 461.9 SINUSITIS ACUTE 03/08/2013 RICHARD PROJECT LANDSCAPE ARCHITECT, JEWELS 461.9 SINUSITIS ACUTE 03/08/2013 RICHARD PROJECT LANDSCAPE ARCHITECT, JEWELS 461.9 SINUSITIS ACUTE 03/08/2013 RICHARD PROJECT LANDSCAPE ARCHITECT, JEWELS 461.9 SINUSITIS ACUTE 03/22/2013 MARIA GUADALUPE PROJECT LANDSCAPE ARCHITECT, TON S 627.2 hot flashes 03/22/2013 MARIA GUADALUPE PROJECT LANDSCAPE ARCHITECT, TON S 627.2 hot flashes 03/22/2013 MARIA GUADALUPE PROJECT LANDSCAPE ARCHITECT, TON S 627.2 HOT FLASHES 03/22/2013 MARIA GUADALUPE PROJECT LANDSCAPE ARCHITECT, TON S 627.2 HOT FLASHES 03/22/2013 MARIA GUADALUPE PROJECT LANDSCAPE ARCHITECT, TON S 627.2 HOT FLASHES 03/22/2013 CATHERINE PERALES APRN 627.2 HOT FLASHES 03/22/2013 MARIA GUADALUPE PROJECT LANDSCAPE ARCHITECT, TON S 627.2 HOT FLASHES 03/22/2013 MARIA GUADALUPE PROJECT LANDSCAPE ARCHITECT, TON S 627.2 HOT FLASHES 03/22/2013 MARIA GUADALUPE PROJECT LANDSCAPE ARCHITECT, TON S 627.2 HOT FLASHES 03/22/2013 MARIA GUADALUPE PROJECT LANDSCAPE ARCHITECT, TON S 627.2 HOT FLASHES 03/22/2013 VELASQUEZ KAUR PSYD 627.2 HOT FLASHES 03/22/2013 JUAN ANTONIO OTTOJEWELS K 627.2 HOT FLASHES 03/22/2013 VELASQUEZ KAUR PSYD 627.2 HOT FLASHES 03/22/2013 POST PROJECT LANDSCAPE ARCHITECT, SYMONE D 627.2 HOT FLASHES 03/22/2013 RICHARD PROJECT LANDSCAPE ARCHITECT, JEWELS 627.2 HOT FLASHES 03/22/2013 RICHARD PROJECT LANDSCAPE ARCHITECT, JEWELS 627.2 HOT FLASHES 03/22/2013 RICHARD PROJECT LANDSCAPE ARCHITECT, JEWELS 627.2 HOT FLASHES 03/29/2013 MARIA GUADALUPE PROJECT LANDSCAPE ARCHITECT, TON S 300.00 ANXIETY UNSPEC 03/29/2013 MARIA GUADALUPE PROJECT LANDSCAPE ARCHITECT, TON S 300.00 ANXIETY UNSPEC 03/29/2013 MARIA GUADALUPE PROJECT LANDSCAPE ARCHITECT, TON S 300.00 ANXIETY UNSPEC 03/29/2013 MARIA GUADALUPE PROJECT LANDSCAPE ARCHITECT, TON S 300.00 ANXIETY UNSPEC 03/29/2013 MARIA GUADALUPE PROJECT LANDSCAPE ARCHITECT, TON S 300.00 ANXIETY UNSPEC 03/29/2013 CATHERINE PERALES APRN 300.00 ANXIETY UNSPEC 03/29/2013 MARIA GUADALUPE PROJECT LANDSCAPE ARCHITECT, TON S 300.00 ANXIETY UNSPEC 03/29/2013 MARIA GUADALUPE PROJECT LANDSCAPE ARCHITECT, TON S 300.00 ANXIETY UNSPEC 03/29/2013 MARIA GUADALUPE PROJECT LANDSCAPE ARCHITECT, TON S 300.00 ANXIETY UNSPEC 03/29/2013 MARIA GUADALUPE PROJECT LANDSCAPE ARCHITECT, TON S 300.00 ANXIETY UNSPEC 03/29/2013 VELAQSUEZ KAUR PSYD L 300.00 ANXIETY UNSPEC 03/29/2013 JEWELS ROMANO DO 300.00 ANXIETY UNSPEC 03/29/2013 VELASQUEZ KAUR PSYD L 300.00 ANXIETY UNSPEC 03/29/2013 SYMONE POST APRN 300.00 ANXIETY UNSPEC 03/29/2013 RICHARD PROJECT LANDSCAPE ARCHITECT, JEWELS 300.00 ANXIETY UNSPEC 03/29/2013 RICHARD PROJECT LANDSCAPE ARCHITECT, JEWELS 300.00 ANXIETY UNSPEC 03/29/2013 RICHARD PROJECT LANDSCAPE ARCHITECT, JEWELS 300.00 ANXIETY UNSPEC 05/23/2013 BRITNEY LERMA APRNA S 719.46 PAIN IN JOINT INVOLVING LOWER LEG 05/23/2013 QUINTEN LERMA APRNNDA S 719.47 PAIN- FOOT 05/23/2013 QUINTEN LERMA APRNNDA S 719.46 PAIN IN JOINT INVOLVING LOWER LEG 05/23/2013 QUINTEN LERMA APRNNDA S 719.47 PAIN- FOOT 05/23/2013 QUINTEN LERMA APRNNDA S 719.46 PAIN IN JOINT INVOLVING LOWER LEG 05/23/2013 QUINTEN LERMA APRNNDA S 719.47 PAIN- FOOT 05/23/2013 QUINTEN LERMA APRNNDA S 719.46 PAIN IN JOINT INVOLVING LOWER LEG 05/23/2013 MARIA GUADALUPE VAUGHN TON S 719.47 PAIN- FOOT 05/23/2013 CATHERINE PERALES APRN 719.46 PAIN IN JOINT INVOLVING LOWER LEG 05/23/2013 CATHERINE PERALES APRN 719.47 PAIN- FOOT 05/23/2013 QUINTEN LERMA APRNNDA S 719.46 PAIN IN JOINT INVOLVING LOWER LEG 05/23/2013 QUINTEN LERMA APRNNDA S 719.47 PAIN- FOOT 05/23/2013 QUINTEN LERMA APRNNDA S 719.46 PAIN IN JOINT INVOLVING LOWER LEG 05/23/2013 MARIA GUADALUPE VAUGHN TON S 719.47 PAIN- FOOT 05/23/2013 QUINTEN LERMA APRNNDA S 719.46 PAIN IN JOINT INVOLVING LOWER LEG 05/23/2013 QUINTEN LERMA APRNNDA S 719.47 PAIN- FOOT 05/23/2013 TON LERMA APRN 719.46 PAIN IN JOINT INVOLVING LOWER LEG 05/23/2013 TON LERMA APRN S 719.47 PAIN- FOOT 05/23/2013 VELASQUEZ KAUR PSYD 719.46 PAIN IN JOINT INVOLVING LOWER LEG 05/23/2013 VELASQUEZ KAUR PSYD 719.47 PAIN- FOOT 05/23/2013 JEWELS ROMANO DO 719.46 PAIN IN JOINT INVOLVING LOWER LEG 05/23/2013 JEWELS ROMANO DO 719.47 PAIN- FOOT 05/23/2013 VELASQUEZ KAUR PSYD 719.46 PAIN IN JOINT INVOLVING LOWER LEG 05/23/2013 VELASQUEZ KAUR PSYD 719.47 PAIN- FOOT 05/23/2013 SYMONE POST APRN 719.46 PAIN IN JOINT INVOLVING LOWER LEG 05/23/2013 SYMONE POST APRN 719.47 PAIN- FOOT 05/23/2013 RICHARDALFREDO VAUGHN JEWELS 719.46 PAIN IN JOINT INVOLVING LOWER LEG 05/23/2013 RICHARDALFREDO VAUGHN, JEWELS 719.47 PAIN- FOOT 05/23/2013 RICHARDALFREDO VAUGHN, JEWELS 719.46 PAIN IN JOINT INVOLVING LOWER LEG 05/23/2013 RICHARDALFREDO VAUGHN JEWELS 719.47 PAIN- FOOT 05/23/2013 RICHARD JOHANA JEWELS 719.46 PAIN IN JOINT INVOLVING LOWER LEG 05/23/2013 RICHARD VAUGHN JEWELS 719.47 PAIN- FOOT 06/09/2013 FRANKYLN HERNÁNDEZ MD Ot 558.9 NONINF GASTROENTERIT NEC 06/09/2013 FRANKLYN HERNÁNDEZ MD Ot 787.01 NAUSEA WITH VOMITING 10/06/2013 TON LERMA APRN S 692.6 POISON REBA 10/06/2013 TON LERMA APRN S 692.6 POISON REBA 10/06/2013 TON LERMA APRN S 692.6 POISON REBA 10/06/2013 CATHERINE PERALES APRN 692.6 POISON REBA 10/06/2013 TON LERMA APRN S 692.6 POISON REBA 10/06/2013 MARIA GUADALUPE PROJECT LANDSCAPE ARCHITECT, TON S 692.6 POISON REBA 10/06/2013 MARIA GUADALUPE VAUGHN, TON S 692.6 POISON REBA 10/06/2013 MARIA GUADALUPE VAUGHN, TON S 692.6 POISON REBA 10/06/2013 VELASQUEZ KAUR PSYD L 692.6 POISON REBA 10/06/2013 ROMANO DO, JEWELS K 692.6 POISON REBA 10/06/2013 VELASQUEZ KAUR PSYD L 692.6 POISON REBA 10/06/2013 SYMONE POST APRN 692.6 POISON REBA 10/06/2013 RICHARD PROJECT LANDSCAPE ARCHITECT, JEWELS 692.6 POISON REBA 10/06/2013 RICHARD PROJECT LANDSCAPE ARCHITECT, JEWELS 692.6 POISON REBA 10/06/2013 RICHARD PROJECT LANDSCAPE ARCHITECT, JEWELS 692.6 POISON REBA 11/09/2013 MARIA GUADALUPE VAUGHN, TON S 787.91 DIARRHEA 11/09/2013 MARIA GUADALUPE VAUGHN, TON S 787.91 DIARRHEA 11/09/2013 CATHERINE PERALES APRN 787.91 DIARRHEA 11/09/2013 MARIA GUADALUPE PROJECT LANDSCAPE ARCHITECT, TON S 787.91 DIARRHEA 11/09/2013 MARIA GUADALUPE PROJECT LANDSCAPE ARCHITECT, TON S 787.91 DIARRHEA 11/09/2013 MARIA GUADALUPE PROJECT LANDSCAPE ARCHITECT, TON S 787.91 DIARRHEA 11/09/2013 MARIA GUADALUPE PROJECT LANDSCAPE ARCHITECT, TON S 787.91 DIARRHEA 11/09/2013 VELASQUEZ KAUR PSYD 787.91 DIARRHEA 11/09/2013 ROMANO JEWELS OTTO K 787.91 DIARRHEA 11/09/2013 VELASQUEZ KAUR PSYD L 787.91 DIARRHEA 11/09/2013 SYMONE POST APRN 787.91 DIARRHEA 11/09/2013 RICHARD PROJECT LANDSCAPE ARCHITECT, JEWELS 787.91 DIARRHEA 11/09/2013 RICHARD PROJECT LANDSCAPE ARCHITECT, JEWELS 787.91 DIARRHEA 11/09/2013 RICHARD PROJECT LANDSCAPE ARCHITECT, JEWELS 787.91 DIARRHEA 11/29/2013 MARIA GUADALUPE VAUGHN, TON S 790.6 Liver Function Test, Abnormal 11/29/2013 MARIA GUADALUPEGARY CHAUDHARIN, TON S 790.6 Liver Function Test, Abnormal 11/29/2013 DIAZ PROJECT LANDSCAPE ARCHITECT, CATHERINE T 790.6 Liver Function Test, Abnormal 11/29/2013 MARIA GUADALUPE PROJECT LANDSCAPE ARCHITECT, TON S 790.6 Liver Function Test, Abnormal 11/29/2013 MARIA GUADALUPE PROJECT LANDSCAPE ARCHITECT, TON S 790.6 Liver Function Test, Abnormal 11/29/2013 MARIA GUADALUPE PROJECT LANDSCAPE ARCHITECT, TON S 790.6 Liver Function Test, Abnormal 11/29/2013 MARIA GUADALUPE PROJECT LANDSCAPE ARCHITECT, TON S 790.6 Liver Function Test, Abnormal 11/29/2013 VELASQUEZ KAUR PSYD 790.6 Liver Function Test, Abnormal 11/29/2013 JEWELS ROMANO DO 790.6 Liver Function Test, Abnormal 11/29/2013 VELASQUEZ KAUR PSYD 790.6 Liver Function Test, Abnormal 11/29/2013 POST PROJECT LANDSCAPE ARCHITECT, SYMONE D 790.6 Liver Function Test, Abnormal 11/29/2013 RICHARD PROJECT LANDSCAPE ARCHITECT, JEWELS 790.6 Liver Function Test, Abnormal 11/29/2013 RICHARD PROJECT LANDSCAPE ARCHITECT, JEWELS 790.6 Liver Function Test, Abnormal 11/29/2013 RICHARD PROJECT LANDSCAPE ARCHITECT, JEWELS 790.6 Liver Function Test, Abnormal 12/14/2013 DIAZ PROJECT LANDSCAPE ARCHITECT, CATHERINE T 466.0 BRONCHITIS, ACUTE 12/14/2013 DIAZ PROJECT LANDSCAPE ARCHITECTCATHERINE Ramos T 724.2 BACK PAIN, LOWER 12/14/2013 MARIA GUADALUPE PROJECT LANDSCAPE ARCHITECT, TON S 466.0 BRONCHITIS, ACUTE 12/14/2013 MARIA GUADALUPE PROJECT LANDSCAPE ARCHITECT, TON S 724.2 BACK PAIN, LOWER 12/14/2013 MARIA GUADALUPE PROJECT LANDSCAPE ARCHITECT, TON S 466.0 BRONCHITIS, ACUTE 12/14/2013 MARIA GUADALUPE PROJECT LANDSCAPE ARCHITECT, TON S 724.2 BACK PAIN, LOWER 12/14/2013 MARIA GUADALUPE PROJECT LANDSCAPE ARCHITECT, TON S 466.0 BRONCHITIS, ACUTE 12/14/2013 MARIA GUADALUPE PROJECT LANDSCAPE ARCHITECT, TON S 724.2 BACK PAIN, LOWER 12/14/2013 MARIA GUADALUPE PROJECT LANDSCAPE ARCHITECT, TON S 466.0 BRONCHITIS, ACUTE 12/14/2013 MARIA GUADALUPE PROJECT LANDSCAPE ARCHITECT, TON S 724.2 BACK PAIN, LOWER 12/14/2013 MCCLEEARY PSYD, GERONIMO L 466.0 BRONCHITIS, ACUTE 12/14/2013 NATASHA PERALES, GERONIMO L 724.2 BACK PAIN, LOWER 12/14/2013 ROMANO DO, JEWELS K 466.0 BRONCHITIS, ACUTE 12/14/2013 ROMANO DO, JEWELS K 724.2 BACK PAIN, LOWER 12/14/2013 NATASHA PERALES, GERONIMO L 466.0 BRONCHITIS, ACUTE 12/14/2013 NATASHA PERALES, GERONIMO L 724.2 BACK PAIN, LOWER 12/14/2013 POST PROJECT LANDSCAPE ARCHITECT, SYMONE D 466.0 BRONCHITIS, ACUTE 12/14/2013 POST PROJECT LANDSCAPE ARCHITECT, SYMONE D 724.2 BACK PAIN, LOWER 12/14/2013 RICHARD PROJECT LANDSCAPE ARCHITECT, JEWELS 466.0 BRONCHITIS, ACUTE 12/14/2013 RICHARD PROJECT LANDSCAPE ARCHITECT, JEWELS 724.2 BACK PAIN, LOWER 12/14/2013 RICHARD PROJECT LANDSCAPE ARCHITECT, JEWELS 466.0 BRONCHITIS, ACUTE 12/14/2013 RICHARD PROJECT LANDSCAPE ARCHITECT, JEWELS 724.2 BACK PAIN, LOWER 12/14/2013 RICHARD PROJECT LANDSCAPE ARCHITECT, JEWELS 466.0 BRONCHITIS, ACUTE 12/14/2013 RICHARD PROJECT LANDSCAPE ARCHITECT, JEWELS 724.2 BACK PAIN, LOWER 12/29/2013 MARIA GUADALUPE PROJECT LANDSCAPE ARCHITECT, TON S 461.9 SINUSITIS ACUTE 12/29/2013 MARIA GUADALUPE PROJECT LANDSCAPE ARCHITECT, TON S 788.1 DYSURIA 12/29/2013 MARIA GUADALUPE PROJECT LANDSCAPE ARCHITECT, TON S 461.9 SINUSITIS ACUTE 12/29/2013 MARIA GUADALUPE PROJECT LANDSCAPE ARCHITECT, TON S 788.1 DYSURIA 12/29/2013 MARIA GUADALUPE PROJECT LANDSCAPE ARCHITECT, TON S 461.9 SINUSITIS ACUTE 12/29/2013 MARIA GUADALUPE PROJECT LANDSCAPE ARCHITECT, TON S 788.1 DYSURIA 12/29/2013 MARIA GUADALUPE PROJECT LANDSCAPE ARCHITECT, TON S 461.9 SINUSITIS ACUTE 12/29/2013 MARIA GUADALUPE PROJECT LANDSCAPE ARCHITECT, TON S 788.1 DYSURIA 12/29/2013 VELASQUEZ KAUR PSYD ANN L 461.9 SINUSITIS ACUTE 12/29/2013 VELASQUEZ KAUR PSYD ANN L 788.1 DYSURIA 12/29/2013 ROMANO DO, JEWELS K 461.9 SINUSITIS ACUTE 12/29/2013 JEWELS ROMANO DO 788.1 DYSURIA 12/29/2013 VELASQUEZ KAUR PSYD 461.9 SINUSITIS ACUTE 12/29/2013 VELASQUEZ KAUR PSYD 788.1 DYSURIA 12/29/2013 SYMONE POST APRN 461.9 SINUSITIS ACUTE 12/29/2013 SYMONE POST APRN 788.1 DYSURIA 12/29/2013 RICHARD PROJECT LANDSCAPE ARCHITECT, JEWELS 461.9 SINUSITIS ACUTE 12/29/2013 RICHARD PROJECT LANDSCAPE ARCHITECT, EJWELS 788.1 DYSURIA 12/29/2013 RICHARD PROJECT LANDSCAPE ARCHITECT, JEWELS 461.9 SINUSITIS ACUTE 12/29/2013 RICHARD PROJECT LANDSCAPE ARCHITECT, JEWELS 788.1 DYSURIA 12/29/2013 RICHARD PROJECT LANDSCAPE ARCHITECT, JEWELS 461.9 SINUSITIS ACUTE 12/29/2013 RICHARD PROJECT LANDSCAPE ARCHITECT, JEWELS 788.1 DYSURIA 02/02/2014 MARIA GUADALUPE VAUGHN TON S 719.46 PAIN- KNEE 02/02/2014 MARIA GUADALUPE VAUGHN TON S 719.46 PAIN- KNEE 02/02/2014 VELASQUEZ KAUR PSYD 719.46 PAIN- KNEE 02/02/2014 JEWELS ROMANO DO 719.46 PAIN- KNEE 02/02/2014 VELASQUEZ KAUR PSYD L 719.46 PAIN- KNEE 02/02/2014 SYMONE POST APRN 719.46 PAIN- KNEE 02/02/2014 RICHARD PROJECT LANDSCAPE ARCHITECT, JEWELS 719.46 PAIN- KNEE 02/02/2014 RICHARD PROJECT LANDSCAPE ARCHITECT, JEWELS 719.46 PAIN- KNEE 02/02/2014 RICHARD PROJECT LANDSCAPE ARCHITECT, JEWELS 719.46 PAIN- KNEE 03/15/2014 VELASQUEZ KAUR PSYD 309.81 AN PTSD 03/15/2014 VELASQUEZ KAUR PSYD 311 DEPRESSIVE DISORDER NOS 03/15/2014 JEWELS ROMANO DO 309.81 AN PTSD 03/15/2014 JEWELS ROMANO DO 311 DEPRESSIVE DISORDER NOS 03/15/2014 VELASQUEZ KAUR PSYD L 309.81 AN PTSD 03/15/2014 VELASQUEZ KAUR PSYD L 311 DEPRESSIVE DISORDER NOS 03/15/2014 SEJAL PROJECT LANDSCAPE ARCHITECTSYMONE Ramos 309.81 AN PTSD 03/15/2014 POST MAUREEN VAUGHNON Benjie 311 DEPRESSIVE DISORDER NOS 03/15/2014 RICHARD PROJECT LANDSCAPE ARCHITECT, JEWELS 309.81 AN PTSD 03/15/2014 RICHARD PROJECT LANDSCAPE ARCHITECT, JEWELS 311 DEPRESSIVE DISORDER NOS 03/15/2014 RICHARD PROJECT LANDSCAPE ARCHITECT, JEWELS 309.81 AN PTSD 03/15/2014 RICHARD PROJECT LANDSCAPE ARCHITECT, JEWELS 311 DEPRESSIVE DISORDER NOS 03/15/2014 RICHARD PROJECT LANDSCAPE ARCHITECT, JEWELS 309.81 AN PTSD 03/15/2014 RICHARD PROJECT LANDSCAPE ARCHITECT, JEWELS 311 DEPRESSIVE DISORDER NOS 05/29/2014 POSTSYMONE Ventura APRN V74.1 TB SCREENING 05/29/2014 RICHARD PROJECT LANDSCAPE ARCHITECT, JEWELS V74.1 TB SCREENING 05/29/2014 RICHARD PROJECT LANDSCAPE ARCHITECT, JEWELS V74.1 TB SCREENING 05/29/2014 RICHARD PROJECT LANDSCAPE ARCHITECT, JEWELS V74.1 TB SCREENING 06/26/2014 Ot 722.4 06/26/2014 Ot 530.81 06/26/2014 Ot 574.20 06/26/2014 Ot V72.63 06/26/2014 Ot V72.81 06/26/2014 Ot V74.8 06/26/2014 MARJORIE STRONG PROJECT LANDSCAPE ARCHITECT Ot 789.06 06/26/2014 DERECK ALVAREZ [facility] Ot 611.71 06/26/2014 TON LERMA [facility] Ot 719.46 06/28/2014 Ot 401.9 06/28/2014 Ot 717.7 06/28/2014 Ot 727.43 06/28/2014 Ot 733.92 06/28/2014 Ot V57.1 08/14/2014 RICHARD PROJECT LANDSCAPE ARCHITECT, JEWELS 278.00 OBESITY 08/14/2014 RICHARD PROJECT LANDSCAPE ARCHITECT, JEWELS 627.2 HOT FLASHES 02/23/2015 TON LERMA [facility] Ot R07.89 03/08/2015 KATELYN SHAH, PRIETO Alfredo Ot K20.9 ESOPHAGITIS, UNSPECIFIED 03/08/2015 KATELYN SHAH, PRIETO Alfredo Ot K25.9 GASTRIC ULCER, UNSP ACUTE OR CHRONIC, 03/08/2015 KATELYN SHAH, PRIETO Alfredo Ot K44.9 DIAPHRAGMATIC HERNIA WITHOUT OBSTRUCTION 03/16/2015 TON LERMAP Ot R07.89 05/23/2015 BRITNEY LERMAA PRESIDENT/GM PRODUCTION & LIVE EXPERIENCES Ot R07.89 OTHER CHEST PAIN 06/14/2015 KATELYN SHAH, PRIETO Alfredo Ot Z01.818 06/14/2015 KATELYN SHAH, PRIETO Alfredo Ot Z01.818 06/14/2015 Ot R07.89 07/11/2015 TON LERMA PRESIDENT/GM PRODUCTION & LIVE EXPERIENCES Ot K52.9 09/14/2015 TON LERMA PRESIDENT/GM PRODUCTION & LIVE EXPERIENCES Ot K52.9 NONINFECTIVE GASTROENTERITIS AND COLITIS 09/14/2015 BRITNEY LERMAA PRESIDENT/GM PRODUCTION & LIVE EXPERIENCES Ot 719.46 JOINT PAIN-L/LEG 10/12/2015 BRITNEY LERMAA PRESIDENT/GM PRODUCTION & LIVE EXPERIENCES Ot 719.46 JOINT PAIN-L/LEG 10/12/2015 TON LERMA PRESIDENT/GM PRODUCTION & LIVE EXPERIENCES Ot K52.9 NONINFECTIVE GASTROENTERITIS AND COLITIS 03/24/2016 KATELYN SHAH, PRIETO Alfredo Ot Z01.818 ENCOUNTER FOR OTHER PREPROCEDURAL EXAMIN 03/24/2016 KATELYN SHAH, PRIETO Alfredo Ot Z01.818 ENCOUNTER FOR OTHER PREPROCEDURAL EXAMIN 03/24/2016 Ot R07.89 OTHER CHEST PAIN 03/25/2016 TON LERMA PRESIDENT/GM PRODUCTION & LIVE EXPERIENCES Ot R10.30 LOWER ABDOMINAL PAIN, UNSPECIFIED 04/23/2016 TON LERMA PRESIDENT/GM PRODUCTION & LIVE EXPERIENCES Ot R10.30 LOWER ABDOMINAL PAIN, UNSPECIFIED 12/27/2016 MAKI SHAH, RUSTY Shaw Ot J44.9 CHRONIC OBSTRUCTIVE PULMONARY DISEASE, U 12/27/2016 MAKI SHAH, RUSTY Shaw Ot R20.0 ANESTHESIA OF SKIN 12/27/2016 MAKI SHAH, RUSTY Shaw Ot R20.2 PARESTHESIA OF SKIN 12/27/2016 MAKI SHAH, RUSTY Shaw Ot Z98.51 TUBAL LIGATION STATUS 12/27/2016 KATELYN SHAH, PRIETO Alfredo Ot Z01.818 ENCOUNTER FOR OTHER PREPROCEDURAL EXAMIN 12/27/2016 KATELYN SHAH, PRIETO Alfredo Ot Z01.818 ENCOUNTER FOR OTHER PREPROCEDURAL EXAMIN 12/27/2016 Ot R07.89 OTHER CHEST PAIN 12/27/2016 TON LERMA PRESIDENT/GM PRODUCTION & LIVE EXPERIENCES Ot R10.30 LOWER ABDOMINAL PAIN, UNSPECIFIED 12/31/2016 KATELYN SHAH, PRIETO Alfredo Ot Z01.818 ENCOUNTER FOR OTHER PREPROCEDURAL EXAMIN 12/31/2016 KATELYN SHAH, PRIETO Alfredo Ot Z01.818 ENCOUNTER FOR OTHER PREPROCEDURAL EXAMIN 12/31/2016 Ot R07.89 OTHER CHEST PAIN 12/31/2016 TON LERMA PRESIDENT/GM PRODUCTION & LIVE EXPERIENCES Ot R10.30 LOWER ABDOMINAL PAIN, UNSPECIFIED 01/02/2017 KATELYN SHAH, PRIETO Alfredo Ot Z01.818 ENCOUNTER FOR OTHER PREPROCEDURAL EXAMIN 01/02/2017 KATELYN SHAH, PRIETO Alfredo Ot Z01.818 ENCOUNTER FOR OTHER PREPROCEDURAL EXAMIN 01/02/2017 Ot R07.89 OTHER CHEST PAIN 01/02/2017 TON LERMA PRESIDENT/GM PRODUCTION & LIVE EXPERIENCES Ot R10.30 LOWER ABDOMINAL PAIN, UNSPECIFIED 01/14/2017 TON LERMA PRESIDENT/GM PRODUCTION & LIVE EXPERIENCES Ot R60.9 EDEMA, UNSPECIFIED 01/19/2017 BRITNEY LERMAA PRESIDENT/GM PRODUCTION & LIVE EXPERIENCES Ot K52.9 NONINFECTIVE GASTROENTERITIS AND COLITIS 01/19/2017 TON LERMA PRESIDENT/GM PRODUCTION & LIVE EXPERIENCES Ot K52.9 NONINFECTIVE GASTROENTERITIS AND COLITIS 01/21/2017 BAIMA, VINCE L PRESIDENT/GM PRODUCTION & LIVE EXPERIENCES Ot E78.2 MIXED HYPERLIPIDEMIA 01/21/2017 BAIMA, VINCE L PRESIDENT/GM PRODUCTION & LIVE EXPERIENCES Ot I10 ESSENTIAL (PRIMARY) HYPERTENSION 01/21/2017 BAIMA, VINCE L PRESIDENT/GM PRODUCTION & LIVE EXPERIENCES Ot I73.9 PERIPHERAL VASCULAR DISEASE, UNSPECIFIED 01/21/2017 BAIMA, VINCE L PRESIDENT/GM PRODUCTION & LIVE EXPERIENCES Ot R00.2 PALPITATIONS 01/21/2017 BAIMA, VINCE L PRESIDENT/GM PRODUCTION & LIVE EXPERIENCES Ot R06.09 OTHER FORMS OF DYSPNEA 01/21/2017 BAIMA, VINCE L PRESIDENT/GM PRODUCTION & LIVE EXPERIENCES Ot R07.9 CHEST PAIN, UNSPECIFIED 01/21/2017 BAIMA, VINCE L PRESIDENT/GM PRODUCTION & LIVE EXPERIENCES Ot E78.2 MIXED HYPERLIPIDEMIA 01/21/2017 BAIMA, VINCE L PRESIDENT/GM PRODUCTION & LIVE EXPERIENCES Ot I10 ESSENTIAL (PRIMARY) HYPERTENSION 01/21/2017 BAIMA, VINCE L PRESIDENT/GM PRODUCTION & LIVE EXPERIENCES Ot I73.9 PERIPHERAL VASCULAR DISEASE, UNSPECIFIED 01/21/2017 BAIMA, VINCE L PRESIDENT/GM PRODUCTION & LIVE EXPERIENCES Ot R00.2 PALPITATIONS 01/21/2017 BAIMA, VINCE L PRESIDENT/GM PRODUCTION & LIVE EXPERIENCES Ot R06.09 OTHER FORMS OF DYSPNEA 01/21/2017 BAIMA, VINCE L PRESIDENT/GM PRODUCTION & LIVE EXPERIENCES Ot R07.9 CHEST PAIN, UNSPECIFIED 01/28/2017 BAIMA, VINEC L PRESIDENT/GM PRODUCTION & LIVE EXPERIENCES Ot E78.2 MIXED HYPERLIPIDEMIA 01/28/2017 BAIMA, VINCE L PRESIDENT/GM PRODUCTION & LIVE EXPERIENCES Ot I10 ESSENTIAL (PRIMARY) HYPERTENSION 01/28/2017 BAIMA, VINCE L PRESIDENT/GM PRODUCTION & LIVE EXPERIENCES Ot I73.9 PERIPHERAL VASCULAR DISEASE, UNSPECIFIED 01/28/2017 BAIMA, VINCE L PRESIDENT/GM PRODUCTION & LIVE EXPERIENCES Ot R00.2 PALPITATIONS 01/28/2017 BAIMA, VINCE L PRESIDENT/GM PRODUCTION & LIVE EXPERIENCES Ot R06.09 OTHER FORMS OF DYSPNEA 01/28/2017 BAIMA, VINCE L PRESIDENT/GM PRODUCTION & LIVE EXPERIENCES Ot R07.9 CHEST PAIN, UNSPECIFIED 01/28/2017 BAIMA, VINCE L PRESIDENT/GM PRODUCTION & LIVE EXPERIENCES Ot E78.2 MIXED HYPERLIPIDEMIA 01/28/2017 BAIMA, VINCE L PRESIDENT/GM PRODUCTION & LIVE EXPERIENCES Ot I10 ESSENTIAL (PRIMARY) HYPERTENSION 01/28/2017 BAIMA, VINCE L PRESIDENT/GM PRODUCTION & LIVE EXPERIENCES Ot I73.9 PERIPHERAL VASCULAR DISEASE, UNSPECIFIED 01/28/2017 BAIMA, VINCE L PRESIDENT/GM PRODUCTION & LIVE EXPERIENCES Ot R00.2 PALPITATIONS 01/28/2017 BAIMA, VINCE L PRESIDENT/GM PRODUCTION & LIVE EXPERIENCES Ot R06.09 OTHER FORMS OF DYSPNEA 01/28/2017 BAIMA VINCE L PRESIDENT/GM PRODUCTION & LIVE EXPERIENCES Ot R07.9 CHEST PAIN, UNSPECIFIED 02/10/2017 KATELYN SHAH, PRIETO Alfredo Ot Z01.818 ENCOUNTER FOR OTHER PREPROCEDURAL EXAMIN 02/10/2017 KATELYN SHAH, PRIETO Alfredo Ot Z01.818 ENCOUNTER FOR OTHER PREPROCEDURAL EXAMIN 02/10/2017 Ot R07.89 OTHER CHEST PAIN 02/10/2017 TON LERMA PRESIDENT/GM PRODUCTION & LIVE EXPERIENCES Ot K52.9 NONINFECTIVE GASTROENTERITIS AND COLITIS 02/10/2017 TON LERMA PRESIDENT/GM PRODUCTION & LIVE EXPERIENCES Ot R10.30 LOWER ABDOMINAL PAIN, UNSPECIFIED 02/10/2017 TON LERMA PRESIDENT/GM PRODUCTION & LIVE EXPERIENCES Ot R60.9 EDEMA, UNSPECIFIED 02/10/2017 BAIMA, VINCE L PRESIDENT/GM PRODUCTION & LIVE EXPERIENCES Ot E78.2 MIXED HYPERLIPIDEMIA 02/10/2017 BAIMA, VNICE L PRESIDENT/GM PRODUCTION & LIVE EXPERIENCES Ot I10 ESSENTIAL (PRIMARY) HYPERTENSION 02/10/2017 BAIMA, VINCE L PRESIDENT/GM PRODUCTION & LIVE EXPERIENCES Ot I73.9 PERIPHERAL VASCULAR DISEASE, UNSPECIFIED 02/10/2017 BAIMA, VINCE L PRESIDENT/GM PRODUCTION & LIVE EXPERIENCES Ot R00.2 PALPITATIONS 02/10/2017 BAIMA, VINCE L PRESIDENT/GM PRODUCTION & LIVE EXPERIENCES Ot R06.09 OTHER FORMS OF DYSPNEA 02/10/2017 BAIMA, VINCE L PRESIDENT/GM PRODUCTION & LIVE EXPERIENCES Ot R07.9 CHEST PAIN, UNSPECIFIED 02/10/2017 BAIMA, VINCE L PRESIDENT/GM PRODUCTION & LIVE EXPERIENCES Ot E78.2 MIXED HYPERLIPIDEMIA 02/10/2017 BAIMA, VINCE L PRESIDENT/GM PRODUCTION & LIVE EXPERIENCES Ot I10 ESSENTIAL (PRIMARY) HYPERTENSION 02/10/2017 BAIMA, VINCE L PRESIDENT/GM PRODUCTION & LIVE EXPERIENCES Ot I73.9 PERIPHERAL VASCULAR DISEASE, UNSPECIFIED 02/10/2017 BAIMA, VINCE L PRESIDENT/GM PRODUCTION & LIVE EXPERIENCES Ot R00.2 PALPITATIONS 02/10/2017 BAIMA, VINCE L PRESIDENT/GM PRODUCTION & LIVE EXPERIENCES Ot R06.09 OTHER FORMS OF DYSPNEA 02/10/2017 BAIMA, VINCE L PRESIDENT/GM PRODUCTION & LIVE EXPERIENCES Ot R07.9 CHEST PAIN, UNSPECIFIED 02/10/2017 MARJORIE STRONG PROJECT LANDSCAPE ARCHITECT Ot 789.06 ABDOMINAL PAIN, EPIGASTRIC 02/10/2017 DERECK ALVAREZ PRESIDENT/GM PRODUCTION & LIVE EXPERIENCES Ot 611.71 MASTODYNIA 02/10/2017 TON LERMA PRESIDENT/GM PRODUCTION & LIVE EXPERIENCES Ot 719.46 JOINT PAIN-L/LEG 02/10/2017 TON LERMA PRESIDENT/GM PRODUCTION & LIVE EXPERIENCES Ot R60.9 EDEMA, UNSPECIFIED 02/10/2017 BAIMA, VINCE L PRESIDENT/GM PRODUCTION & LIVE EXPERIENCES Ot E78.2 MIXED HYPERLIPIDEMIA 02/10/2017 BAIMA, VINCE L PRESIDENT/GM PRODUCTION & LIVE EXPERIENCES Ot I10 ESSENTIAL (PRIMARY) HYPERTENSION 02/10/2017 BAIMA, VINCE L PRESIDENT/GM PRODUCTION & LIVE EXPERIENCES Ot I73.9 PERIPHERAL VASCULAR DISEASE, UNSPECIFIED 02/10/2017 BAIMA, VINCE L PRESIDENT/GM PRODUCTION & LIVE EXPERIENCES Ot R00.2 PALPITATIONS 02/10/2017 BAIMA, VINCE L PRESIDENT/GM PRODUCTION & LIVE EXPERIENCES Ot R06.09 OTHER FORMS OF DYSPNEA 02/10/2017 BAIMA, VINCE L PRESIDENT/GM PRODUCTION & LIVE EXPERIENCES Ot R07.9 CHEST PAIN, UNSPECIFIED 02/10/2017 BAIMA, VINCE L PRESIDENT/GM PRODUCTION & LIVE EXPERIENCES Ot E78.2 MIXED HYPERLIPIDEMIA 02/10/2017 BAIMA, VINCE L PRESIDENT/GM PRODUCTION & LIVE EXPERIENCES Ot I10 ESSENTIAL (PRIMARY) HYPERTENSION 02/10/2017 BAIMA, VINCE L PRESIDENT/GM PRODUCTION & LIVE EXPERIENCES Ot I73.9 PERIPHERAL VASCULAR DISEASE, UNSPECIFIED 02/10/2017 BAIMA, VINCE L PRESIDENT/GM PRODUCTION & LIVE EXPERIENCES Ot R00.2 PALPITATIONS 02/10/2017 BAIMA, VINCE L PRESIDENT/GM PRODUCTION & LIVE EXPERIENCES Ot R06.09 OTHER FORMS OF DYSPNEA 02/10/2017 BAIMA, VINCE L PRESIDENT/GM PRODUCTION & LIVE EXPERIENCES Ot R07.9 CHEST PAIN, UNSPECIFIED 02/10/2017 MARJORIE STRONG PROJECT LANDSCAPE ARCHITECT Ot 789.06 ABDOMINAL PAIN, EPIGASTRIC 02/10/2017 DERECK ALVAREZ PRESIDENT/GM PRODUCTION & LIVE EXPERIENCES Ot 611.71 MASTODYNIA 02/10/2017 TON LERMA PRESIDENT/GM PRODUCTION & LIVE EXPERIENCES Ot 719.46 JOINT PAIN-L/LEG 02/10/2017 TON LERMA PRESIDENT/GM PRODUCTION & LIVE EXPERIENCES Ot R60.9 EDEMA, UNSPECIFIED 02/10/2017 BAIMA, VINCE L PRESIDENT/GM PRODUCTION & LIVE EXPERIENCES Ot E78.2 MIXED HYPERLIPIDEMIA 02/10/2017 BAIMA, VINCE L PRESIDENT/GM PRODUCTION & LIVE EXPERIENCES Ot I10 ESSENTIAL (PRIMARY) HYPERTENSION 02/10/2017 BAIMA, VINCE L PRESIDENT/GM PRODUCTION & LIVE EXPERIENCES Ot I73.9 PERIPHERAL VASCULAR DISEASE, UNSPECIFIED 02/10/2017 BAIMA, VINCE L PRESIDENT/GM PRODUCTION & LIVE EXPERIENCES Ot R00.2 PALPITATIONS 02/10/2017 BAIMA, VINCE L PRESIDENT/GM PRODUCTION & LIVE EXPERIENCES Ot R06.09 OTHER FORMS OF DYSPNEA 02/10/2017 BAIMA, VINCE L PRESIDENT/GM PRODUCTION & LIVE EXPERIENCES Ot R07.9 CHEST PAIN, UNSPECIFIED 02/10/2017 BAIMA, VINCE L PRESIDENT/GM PRODUCTION & LIVE EXPERIENCES Ot E78.2 MIXED HYPERLIPIDEMIA 02/10/2017 BAIMA, VINCE L PRESIDENT/GM PRODUCTION & LIVE EXPERIENCES Ot I10 ESSENTIAL (PRIMARY) HYPERTENSION 02/10/2017 BAIMA, VINCE L PRESIDENT/GM PRODUCTION & LIVE EXPERIENCES Ot I73.9 PERIPHERAL VASCULAR DISEASE, UNSPECIFIED 02/10/2017 BAIMA, VINCE L PRESIDENT/GM PRODUCTION & LIVE EXPERIENCES Ot R00.2 PALPITATIONS 02/10/2017 BAIMA, VINCE L PRESIDENT/GM PRODUCTION & LIVE EXPERIENCES Ot R06.09 OTHER FORMS OF DYSPNEA 02/10/2017 BAIMA, VINCE L PRESIDENT/GM PRODUCTION & LIVE EXPERIENCES Ot R07.9 CHEST PAIN, UNSPECIFIED 02/10/2017 BAIMA, VINCE L PRESIDENT/GM PRODUCTION & LIVE EXPERIENCES Ot E78.2 MIXED HYPERLIPIDEMIA 02/10/2017 BAIMA, VINCE L PRESIDENT/GM PRODUCTION & LIVE EXPERIENCES Ot I10 ESSENTIAL (PRIMARY) HYPERTENSION 02/10/2017 BAIMA, VINCE L PRESIDENT/GM PRODUCTION & LIVE EXPERIENCES Ot I73.9 PERIPHERAL VASCULAR DISEASE, UNSPECIFIED 02/10/2017 BAIMA, VINCE L PRESIDENT/GM PRODUCTION & LIVE EXPERIENCES Ot R00.2 PALPITATIONS 02/10/2017 BAIMA, VINCE L PRESIDENT/GM PRODUCTION & LIVE EXPERIENCES Ot R06.09 OTHER FORMS OF DYSPNEA 02/10/2017 BAIMA, VINCE L PRESIDENT/GM PRODUCTION & LIVE EXPERIENCES Ot R07.9 CHEST PAIN, UNSPECIFIED 02/18/2017 BAIMA, VINCE L PRESIDENT/GM PRODUCTION & LIVE EXPERIENCES Ot E78.2 MIXED HYPERLIPIDEMIA 02/18/2017 BAIMA, VINCE L PRESIDENT/GM PRODUCTION & LIVE EXPERIENCES Ot I10 ESSENTIAL (PRIMARY) HYPERTENSION 02/18/2017 BAIMA, VINCE L PRESIDENT/GM PRODUCTION & LIVE EXPERIENCES Ot I73.9 PERIPHERAL VASCULAR DISEASE, UNSPECIFIED 02/18/2017 BAIMA, VINCE L PRESIDENT/GM PRODUCTION & LIVE EXPERIENCES Ot R00.2 PALPITATIONS 02/18/2017 BAIMA, VINCE L PRESIDENT/GM PRODUCTION & LIVE EXPERIENCES Ot R06.09 OTHER FORMS OF DYSPNEA 02/18/2017 BAIMA, VINCE L PRESIDENT/GM PRODUCTION & LIVE EXPERIENCES Ot R07.9 CHEST PAIN, UNSPECIFIED 03/31/2017 BAIMA, VINCE L PRESIDENT/GM PRODUCTION & LIVE EXPERIENCES Ot E78.2 MIXED HYPERLIPIDEMIA 03/31/2017 BAIMA, VINCE L PRESIDENT/GM PRODUCTION & LIVE EXPERIENCES Ot I10 ESSENTIAL (PRIMARY) HYPERTENSION 03/31/2017 BAIMA, VINCE L PRESIDENT/GM PRODUCTION & LIVE EXPERIENCES Ot I73.9 PERIPHERAL VASCULAR DISEASE, UNSPECIFIED 03/31/2017 BAIMA, VINCE L PRESIDENT/GM PRODUCTION & LIVE EXPERIENCES Ot R00.2 PALPITATIONS 03/31/2017 BAIMA, VINCE L PRESIDENT/GM PRODUCTION & LIVE EXPERIENCES Ot R06.09 OTHER FORMS OF DYSPNEA 03/31/2017 BAIMA, VINCE L PRESIDENT/GM PRODUCTION & LIVE EXPERIENCES Ot R07.9 CHEST PAIN, UNSPECIFIED 03/31/2017 TON LERMA PRESIDENT/GM PRODUCTION & LIVE EXPERIENCES Ot R60.9 EDEMA, UNSPECIFIED 03/31/2017 BAIMA, VINCE L PRESIDENT/GM PRODUCTION & LIVE EXPERIENCES Ot E78.2 MIXED HYPERLIPIDEMIA 03/31/2017 BAIMA, VINCE L PRESIDENT/GM PRODUCTION & LIVE EXPERIENCES Ot I10 ESSENTIAL (PRIMARY) HYPERTENSION 03/31/2017 BAIMA, VINCE L PRESIDENT/GM PRODUCTION & LIVE EXPERIENCES Ot I73.9 PERIPHERAL VASCULAR DISEASE, UNSPECIFIED 03/31/2017 BAIMA, VINCE L PRESIDENT/GM PRODUCTION & LIVE EXPERIENCES Ot R00.2 PALPITATIONS 03/31/2017 BAIMA, VINCE L PRESIDENT/GM PRODUCTION & LIVE EXPERIENCES Ot R06.09 OTHER FORMS OF DYSPNEA 03/31/2017 BAIMA, VINCE L PRESIDENT/GM PRODUCTION & LIVE EXPERIENCES Ot R07.9 CHEST PAIN, UNSPECIFIED 03/31/2017 BAIMA, VINCE L PRESIDENT/GM PRODUCTION & LIVE EXPERIENCES Ot E78.2 MIXED HYPERLIPIDEMIA 03/31/2017 BAIMA, VINCE L PRESIDENT/GM PRODUCTION & LIVE EXPERIENCES Ot I10 ESSENTIAL (PRIMARY) HYPERTENSION 03/31/2017 BAIMA, VINCE L PRESIDENT/GM PRODUCTION & LIVE EXPERIENCES Ot I73.9 PERIPHERAL VASCULAR DISEASE, UNSPECIFIED 03/31/2017 BAIMA, VINCE L PRESIDENT/GM PRODUCTION & LIVE EXPERIENCES Ot R00.2 PALPITATIONS 03/31/2017 BAIMA, VINCE L PRESIDENT/GM PRODUCTION & LIVE EXPERIENCES Ot R06.09 OTHER FORMS OF DYSPNEA 03/31/2017 BAIMA, VINCE L PRESIDENT/GM PRODUCTION & LIVE EXPERIENCES Ot R07.9 CHEST PAIN, UNSPECIFIED 07/17/2017 BAIMA, VINCE L PRESIDENT/GM PRODUCTION & LIVE EXPERIENCES Ot E78.2 MIXED HYPERLIPIDEMIA 07/17/2017 BAIMA, VINCE L PRESIDENT/GM PRODUCTION & LIVE EXPERIENCES Ot I10 ESSENTIAL (PRIMARY) HYPERTENSION 07/17/2017 BAIMA, VINCE L PRESIDENT/GM PRODUCTION & LIVE EXPERIENCES Ot I73.9 PERIPHERAL VASCULAR DISEASE, UNSPECIFIED 07/17/2017 BAIMA, VINCE L PRESIDENT/GM PRODUCTION & LIVE EXPERIENCES Ot R00.2 PALPITATIONS 07/17/2017 BAIMA, VINCE L PRESIDENT/GM PRODUCTION & LIVE EXPERIENCES Ot R06.09 OTHER FORMS OF DYSPNEA 07/17/2017 BAIMA, VINCE L PRESIDENT/GM PRODUCTION & LIVE EXPERIENCES Ot R07.9 CHEST PAIN, UNSPECIFIED 07/17/2017 BAIMA, VINCE L PRESIDENT/GM PRODUCTION & LIVE EXPERIENCES Ot E78.2 MIXED HYPERLIPIDEMIA 07/17/2017 BAIMA, VINCE L PRESIDENT/GM PRODUCTION & LIVE EXPERIENCES Ot I10 ESSENTIAL (PRIMARY) HYPERTENSION 07/17/2017 BAIMA, VINCE L PRESIDENT/GM PRODUCTION & LIVE EXPERIENCES Ot I73.9 PERIPHERAL VASCULAR DISEASE, UNSPECIFIED 07/17/2017 BAIMA, VINCE L PRESIDENT/GM PRODUCTION & LIVE EXPERIENCES Ot R00.2 PALPITATIONS 07/17/2017 BAIMA, VINCE L PRESIDENT/GM PRODUCTION & LIVE EXPERIENCES Ot R06.09 OTHER FORMS OF DYSPNEA 07/17/2017 BAIMA, VINCE L PRESIDENT/GM PRODUCTION & LIVE EXPERIENCES Ot R07.9 CHEST PAIN, UNSPECIFIED 07/17/2017 BAIMA, VINCE L PRESIDENT/GM PRODUCTION & LIVE EXPERIENCES Ot E78.2 MIXED HYPERLIPIDEMIA 07/17/2017 BAIMA, VINCE L PRESIDENT/GM PRODUCTION & LIVE EXPERIENCES Ot I10 ESSENTIAL (PRIMARY) HYPERTENSION 07/17/2017 BAIMA, VINCE L PRESIDENT/GM PRODUCTION & LIVE EXPERIENCES Ot I73.9 PERIPHERAL VASCULAR DISEASE, UNSPECIFIED 07/17/2017 BAIMA, VINCE L PRESIDENT/GM PRODUCTION & LIVE EXPERIENCES Ot R00.2 PALPITATIONS 07/17/2017 BAIMA, VINCE L PRESIDENT/GM PRODUCTION & LIVE EXPERIENCES Ot R06.09 OTHER FORMS OF DYSPNEA 07/17/2017 BAIMA, VINCE L PRESIDENT/GM PRODUCTION & LIVE EXPERIENCES Ot R07.9 CHEST PAIN, UNSPECIFIED 07/17/2017 TON LERMA PRESIDENT/GM PRODUCTION & LIVE EXPERIENCES Ot R60.9 EDEMA, UNSPECIFIED 07/17/2017 TON LERMA PRESIDENT/GM PRODUCTION & LIVE EXPERIENCES Ot K52.9 NONINFECTIVE GASTROENTERITIS AND COLITIS 07/17/2017 BRITNEY LERMAA PRESIDENT/GM PRODUCTION & LIVE EXPERIENCES Ot R60.9 EDEMA, UNSPECIFIED 07/17/2017 BAIMA, VINCE L PRESIDENT/GM PRODUCTION & LIVE EXPERIENCES Ot E78.2 MIXED HYPERLIPIDEMIA 07/17/2017 BAIMA, VINCE L PRESIDENT/GM PRODUCTION & LIVE EXPERIENCES Ot I10 ESSENTIAL (PRIMARY) HYPERTENSION 07/17/2017 BAIMA, VINCE L PRESIDENT/GM PRODUCTION & LIVE EXPERIENCES Ot I73.9 PERIPHERAL VASCULAR DISEASE, UNSPECIFIED 07/17/2017 BAIMA, VINCE L PRESIDENT/GM PRODUCTION & LIVE EXPERIENCES Ot R00.2 PALPITATIONS 07/17/2017 BAIMA, VINCE L PRESIDENT/GM PRODUCTION & LIVE EXPERIENCES Ot R06.09 OTHER FORMS OF DYSPNEA 07/17/2017 BAIMA, VINCE L PRESIDENT/GM PRODUCTION & LIVE EXPERIENCES Ot R07.9 CHEST PAIN, UNSPECIFIED 07/17/2017 BAIMA, VINCE L PRESIDENT/GM PRODUCTION & LIVE EXPERIENCES Ot E78.2 MIXED HYPERLIPIDEMIA 07/17/2017 BAIMA, VINCE L PRESIDENT/GM PRODUCTION & LIVE EXPERIENCES Ot I10 ESSENTIAL (PRIMARY) HYPERTENSION 07/17/2017 BAIMA, VINCE L PRESIDENT/GM PRODUCTION & LIVE EXPERIENCES Ot I73.9 PERIPHERAL VASCULAR DISEASE, UNSPECIFIED 07/17/2017 BAIMA, VINCE L PRESIDENT/GM PRODUCTION & LIVE EXPERIENCES Ot R00.2 PALPITATIONS 07/17/2017 BAIMA, VINCE L PRESIDENT/GM PRODUCTION & LIVE EXPERIENCES Ot R06.09 OTHER FORMS OF DYSPNEA 07/17/2017 BAIMA, VINCE L PRESIDENT/GM PRODUCTION & LIVE EXPERIENCES Ot R07.9 CHEST PAIN, UNSPECIFIED 07/17/2017 BAIMA, VINCE L PRESIDENT/GM PRODUCTION & LIVE EXPERIENCES Ot E78.2 MIXED HYPERLIPIDEMIA 07/17/2017 BAIMA, VINCE L PRESIDENT/GM PRODUCTION & LIVE EXPERIENCES Ot I10 ESSENTIAL (PRIMARY) HYPERTENSION 07/17/2017 BAIMA, VINCE L PRESIDENT/GM PRODUCTION & LIVE EXPERIENCES Ot I73.9 PERIPHERAL VASCULAR DISEASE, UNSPECIFIED 07/17/2017 BAIMA, VINCE L PRESIDENT/GM PRODUCTION & LIVE EXPERIENCES Ot R00.2 PALPITATIONS 07/17/2017 BAIMA, VINCE L PRESIDENT/GM PRODUCTION & LIVE EXPERIENCES Ot R06.09 OTHER FORMS OF DYSPNEA 07/17/2017 BAIMA, VINCE L PRESIDENT/GM PRODUCTION & LIVE EXPERIENCES Ot R07.9 CHEST PAIN, UNSPECIFIED Procedures Code [place] [address] HEMOCCULT 04/12/2012 71592 PAP SMEAR 04/14/2012 OtCaitlyn Parada 04/17/2012 Q0091 PAP SMEAR OBTAIN SMEAR 04/19/2012 36108 ROUTINE VENIPUNCTURE 07/01/2012 33029 ESR/SED RATE 07/01/2012 00507 CBC 07/01/2012 37681 CRP 07/01/2012 91018 URIC ACID 07/01/2012 45332 CMP 07/01/2012 [id number] GFR CALC (RESULT ONLY) 07/01/2012 26358 TSH 07/01/2012 42167 ASO 07/02/2012 30535 RA FACTOR 07/02/2012 ANAANA IVETH ANALYZER (SCREEN) 07/02/2012 85969 HEPATITIS PROFILE 07/02/2012 16111 ROUTINE VENIPUNCTURE 08/04/2012 00891 CMP 08/04/2012 65459 BNP 08/04/2012 09518 EKG, TRACING (IN-HOUSE) 08/18/2012 74275 H PYLORI (IN-HOUSE) 11/03/2012 35146 EGD 11/03/2012 39846 US AORTIC (DOPPLER) 11/03/2012 93541 ROUTINE VENIPUNCTURE 12/09/2012 07085 CBC 12/09/2012 69290 CMP 12/09/2012 [id number] GFR CALC (RESULT ONLY) 12/09/2012 39929 XRAY CHEST 2 VIEW 12/12/2012 10773 ROUTINE VENIPUNCTURE 02/22/2013 64743 CBC 02/22/2013 [id number] GFR CALC (RESULT ONLY) 02/22/2013 52942 CMP 02/22/2013 36620 PROLACTIN 02/22/2013 76644 TSH 02/22/2013 50090 ESTROGEN 02/27/2013 62704 MAMMOGRAM DX, MARK 03/09/2013 90166 ROUTINE VENIPUNCTURE 05/23/2013 34027 XRAY KNEE LEFT 3 VIEWS 05/23/2013 45025 XRAY FEET, MARK 05/23/2013 [id number] GFR CALC (RESULT ONLY) 05/24/2013 04888 CMP 05/24/2013 63347 CBC 05/24/2013 01116 ROUTINE VENIPUNCTURE 11/09/2013 71203 CBC 11/09/2013 [id number] GFR CALC (RESULT ONLY) 11/09/2013 83652 CMP 11/09/2013 71488 ROUTINE VENIPUNCTURE 12/12/2013 06106 LIVER PANEL (LFT) 12/12/2013 15766 UA W/ CULTURE IF INDICATED 12/29/2013 31059 CULTURE URINE 12/31/2013 60951 ROUTINE VENIPUNCTURE 02/06/2014 78542 CBC 02/06/2014 [id number] GFR CALC (RESULT ONLY) 02/06/2014 79130 CMP 02/06/2014 86063 LIVER PANEL (LFT) 02/06/2014 88464 URIC ACID 02/06/2014 10715 CRP 02/06/2014 35811 HEPATITIS PROFILE 02/06/2014 04979 XRAY KNEE RIGHT 3 VIEWS 02/07/2014 99152 RA FACTOR 02/07/2014 46292 ASO 02/07/2014 ANAANA IVETH ANALYZER (SCREEN) 02/07/2014 40034 MRI EXTREMITY, LOWER RIGHT, W/O CONTRAST 03/01/2014 45866 PSYCH DIAGNOSTIC EVALUATION 03/15/2014 51573 JOINT INJECTION- LARGE JOINT (SPECIFY MEDCIN DESCRIPTION) 04/06/2014 J1040 DEPO MEDROL 80 MG INJ 04/06/2014 42217 PSYTX PT&/FAMILY 45 MINUTES 04/19/2014 ORTHOPEDI LISATA, CAITLYN 06/08/2014 64226 AMERITOX 08/14/2014 87399 UA LONG DIP 08/14/2014 Results Test Result Range CBC+Platelet+Hem Review - 02/14/16 16:38 WBC 8.3 x10E3/uL 3.4-10.8 RBC 4.53 x10E6/uL 3.77-5.28 Hemoglobin 13.7 g/dL 11.1-15.9 Hematocrit 40.1 % 34.0-46.6 MCV 89 fL 79-97 MCH 30.2 pg 26.6-33.0 MCHC 34.2 g/dL 31.5-35.7 RDW 13.0 % 12.3-15.4 Platelets 325 x10E3/uL 150-379 Neutrophils 54 % Lymphs 39 % Monocytes 5 % Eos 2 % Basos 0 % Neutrophils Absolute 4.5 X10E3/uL 1.4-7.0 Lymphs (Absolute) 3.2 X10E3/uL 0.7-3.1 Monocytes(Absolute) 0.4 X10E3/uL 0.1-0.9 Eos (Absolute Value) 0.2 X10E3/uL 0.0-0.4 Baso(Absolute) 0.0 X10E3/uL 0.0-0.2 Differential Comment Note: RBC Comment Note: Normal Platelet Comment Note: Adequate Comp. Metabolic Panel (14) - 02/14/16 16:38 Glucose, Serum 129 mg/dL 65-99 BUN 11 mg/dL 6-24 Creatinine, Serum 0.74 mg/dL 0.57-1.00 eGFR If NonAfricn Am 94 mL/min/1.73 >59 eGFR If Africn Am 108 mL/min/1.73 >59 BUN/Creatinine Ratio 15 9-23 Sodium, Serum 139 mmol/L 134-144 Potassium, Serum 4.2 mmol/L 3.5-5.2 Chloride, Serum 96 mmol/L 97-108 Carbon Dioxide, Total 27 mmol/L 18-29 Calcium, Serum 9.4 mg/dL 8.7-10.2 Protein, Total, Serum 7.1 g/dL 6.0-8.5 Albumin, Serum 4.2 g/dL 3.5-5.5 Globulin, Total 2.9 g/dL 1.5-4.5 A/G Ratio 1.4 1.1-2.5 Bilirubin, Total 0.3 mg/dL 0.0-1.2 Alkaline Phosphatase, S 142 IU/L 39-117 AST (SGOT) 63 IU/L 0-40 ALT (SGPT) 117 IU/L 0-32 CBC With Differential/Platelet - 03/17/16 15:13 WBC 10.4 x10E3/uL 3.4-10.8 RBC 4.79 x10E6/uL 3.77-5.28 Hemoglobin 14.1 g/dL 11.1-15.9 Hematocrit 43.1 % 34.0-46.6 MCV 90 fL 79-97 MCH 29.4 pg 26.6-33.0 MCHC 32.7 g/dL 31.5-35.7 RDW 13.4 % 12.3-15.4 Platelets 362 x10E3/uL 150-379 Neutrophils 57 % Lymphs 36 % Monocytes 6 % Eos 1 % Basos 0 % Neutrophils (Absolute) 5.9 x10E3/uL 1.4-7.0 Lymphs (Absolute) 3.7 x10E3/uL 0.7-3.1 Monocytes(Absolute) 0.7 x10E3/uL 0.1-0.9 Eos (Absolute) 0.1 x10E3/uL 0.0-0.4 Baso (Absolute) 0.0 x10E3/uL 0.0-0.2 Immature Granulocytes 0 % Immature Grans (Abs) 0.0 x10E3/uL 0.0-0.1 Comp. Metabolic Panel (14) - 03/17/16 15:13 Glucose, Serum 108 mg/dL 65-99 BUN 9 mg/dL 6-24 Creatinine, Serum 0.77 mg/dL 0.57-1.00 eGFR If NonAfricn Am 90 mL/min/1.73 >59 eGFR If Africn Am 103 mL/min/1.73 >59 BUN/Creatinine Ratio 12 9-23 Sodium, Serum 142 mmol/L 136-144 Potassium, Serum 4.0 mmol/L 3.5-5.2 Chloride, Serum 101 mmol/L 97-106 Carbon Dioxide, Total 27 mmol/L 18-29 Calcium, Serum 9.5 mg/dL 8.7-10.2 Protein, Total, Serum 7.2 g/dL 6.0-8.5 Albumin, Serum 4.2 g/dL 3.5-5.5 Globulin, Total 3.0 g/dL 1.5-4.5 A/G Ratio 1.4 1.1-2.5 Bilirubin, Total 0.2 mg/dL 0.0-1.2 Alkaline Phosphatase, S 124 IU/L 39-117 AST (SGOT) 28 IU/L 0-40 ALT (SGPT) 40 IU/L 0-32 Lipase, Serum - 03/17/16 15:13 Lipase, Serum 98 U/L 0-59 CBC With Differential/Platelet - 12/01/16 16:54 WBC 9.4 x10E3/uL 3.4-10.8 RBC 4.58 x10E6/uL 3.77-5.28 Hemoglobin 13.5 g/dL 11.1-15.9 Hematocrit 40.8 % 34.0-46.6 MCV 89 fL 79-97 MCH 29.5 pg 26.6-33.0 MCHC 33.1 g/dL 31.5-35.7 RDW 13.7 % 12.3-15.4 Platelets 284 x10E3/uL 150-379 Neutrophils 46 % Lymphs 45 % Monocytes 7 % Eos 2 % Basos 0 % Neutrophils (Absolute) 4.4 x10E3/uL 1.4-7.0 Lymphs (Absolute) 4.2 x10E3/uL 0.7-3.1 Monocytes(Absolute) 0.6 x10E3/uL 0.1-0.9 Eos (Absolute) 0.2 x10E3/uL 0.0-0.4 Baso (Absolute) 0.0 x10E3/uL 0.0-0.2 Immature Granulocytes 0 % Immature Grans (Abs) 0.0 x10E3/uL 0.0-0.1 Comp. Metabolic Panel (14) - 12/01/16 16:54 Glucose, Serum 98 mg/dL 65-99 BUN 12 mg/dL 6-24 Creatinine, Serum 0.85 mg/dL 0.57-1.00 eGFR If NonAfricn Am 80 mL/min/1.73 >59 eGFR If Africn Am 92 mL/min/1.73 >59 BUN/Creatinine Ratio 14 9-23 Sodium, Serum 138 mmol/L 134-144 Potassium, Serum 4.5 mmol/L 3.5-5.2 Chloride, Serum 95 mmol/L 96-106 Carbon Dioxide, Total 25 mmol/L 18-29 Calcium, Serum 9.6 mg/dL 8.7-10.2 Protein, Total, Serum 7.3 g/dL 6.0-8.5 Albumin, Serum 4.1 g/dL 3.5-5.5 Globulin, Total 3.2 g/dL 1.5-4.5 A/G Ratio 1.3 1.2-2.2 Bilirubin, Total 0.3 mg/dL 0.0-1.2 Alkaline Phosphatase, S 127 IU/L 39-117 AST (SGOT) 22 IU/L 0-40 ALT (SGPT) 45 IU/L 0-32 Lipid Panel - 12/01/16 16:54 Cholesterol, Total 259 mg/dL 100-199 Triglycerides 212 mg/dL 0-149 HDL Cholesterol 45 mg/dL >39 VLDL Cholesterol Garret 42 mg/dL 5-40 LDL Cholesterol Calc 172 mg/dL 0-99 TSH - 12/01/16 16:54 TSH 2.470 uIU/mL 0.450-4.500 Complete blood count (CBC) with automated white blood cell (WBC) differential - 12/27/16 10:43 Blood leukocytes automated count (number/volume) 8.0 10*3/uL 4.3-11.0 Blood erythrocytes automated count (number/volume) 4.53 10*6/uL 4.35-5.85 Venous blood hemoglobin measurement (mass/volume) 13.2 g/dL 11.5-16.0 Blood hematocrit (volume fraction) 40 % 35-52 Automated erythrocyte mean corpuscular volume 89 [foz_us] 80-99 Automated erythrocyte mean corpuscular hemoglobin (mass per erythrocyte) 29 pg 25-34 Automated erythrocyte mean corpuscular hemoglobin concentration measurement ( mass/volume) 33 g/dL 32-36 Automated erythrocyte distribution width ratio 12.6 % 10.0-14.5 Automated blood platelet count (count/volume) 291 10*3/uL 130-400 Automated blood platelet mean volume measurement 10.1 [foz_us] 7.4-10.4 Automated blood neutrophils/100 leukocytes 49 % 42-75 Automated blood lymphocytes/100 leukocytes 42 % 12-44 Blood monocytes/100 leukocytes 7 % 0-12 Automated blood eosinophils/100 leukocytes 2 % 0-10 Automated blood basophils/100 leukocytes 0 % 0-10 Blood neutrophils automated count (number/volume) 3.9 10*3 1.8-7.8 Blood lymphocytes automated count (number/volume) 3.3 10*3 1.0-4.0 Blood monocytes automated count (number/volume) 0.6 10*3 0.0-1.0 Automated eosinophil count 0.2 10*3/uL 0.0-0.3 Automated blood basophil count (count/volume) 0.0 10*3/uL 0.0-0.1 PT panel in platelet poor plasma by coagulation assay - 12/27/16 10:43 Prothrombin time (PT) in platelet poor plasma by coagulation assay 12.0 s 12.2-14.7 INR in platelet poor plasma or blood by coagulation assay 0.9 0.8-1.4 Activated partial thromboplastin time (aPTT) in platelet poor plasma bycoagulation assay - 12/27/16 10:43 Activated partial thromboplastin time (aPTT) in platelet poor plasma bycoagulation assay 34 s 24-35 Fibrin D-dimer FEU measurement in platelet poor plasma (mass/volume) - 10:43 Fibrin D-dimer FEU measurement in platelet poor plasma (mass/volume) 0.39 ug/mL 0.00-0.49 Comprehensive metabolic panel - 12/27/16 10:43 Serum or plasma sodium measurement (moles/volume) 139 mmol/L 135-145 Serum or plasma potassium measurement (moles/volume) 4.0 mmol/L 3.6-5.0 Serum or plasma chloride measurement (moles/volume) 102 mmol/L 98-107 Carbon dioxide 25 mmol/L 21-32 Serum or plasma anion gap determination (moles/volume) 12 mmol/L 5-14 Serum or plasma urea nitrogen measurement (mass/volume) 12 mg/dL 7-18 Serum or plasma creatinine measurement (mass/volume) 0.76 mg/dL 0.60-1.30 Serum or plasma urea nitrogen/creatinine mass ratio 16 NRG Serum or plasma creatinine measurement with calculation of estimated glomerular filtration rate > NRG Serum or plasma glucose measurement (mass/volume) 121 mg/dL 70-105 Serum or plasma calcium measurement (mass/volume) 9.5 mg/dL 8.5-10.1 Serum or plasma total bilirubin measurement (mass/volume) 0.4 mg/dL 0.1-1.0 Serum or plasma alkaline phosphatase measurement (enzymatic activity/volume) 109 U/L 40-136 Serum or plasma aspartate aminotransferase measurement (enzymatic activity/ volume) 28 U/L 5-34 Serum or plasma alanine aminotransferase measurement (enzymatic activity/volume ) 37 U/L 0-55 Serum or plasma protein measurement (mass/volume) 7.6 g/dL 6.4-8.2 Serum or plasma albumin measurement (mass/volume) 4.1 g/dL 3.2-4.5 Magnesium - 12/27/16 10:43 Magnesium 1.8 mg/dL 1.8-2.4 Serum or plasma troponin i.cardiac measurement (mass/volume) - 12/27/16 10:43 Serum or plasma troponin i.cardiac measurement (mass/volume) < ng/ mL <0.30 Myoglobin, serum - 12/27/16 10:43 Myoglobin, serum 70.0 ng/mL 10.0-92.0 Serum or plasma lithium measurement (moles/volume) - 12/27/16 10:43 BNP level 10.6 pg/mL <100.0 CULTURE, URINE - 05/02/17 16:00 CULTURE, URINE, ROUTINE SEE NOTE NRG Encounters ACCT No. Visit Date/Time Discharge Status Pt. Type Provider Facility Loc./Unit Complaint [id number] 07/27/2014 13:03:00 07/27/2014 23:59:59 [facility] Outpatient JEWELS RAMOS APRN [id number] 07/27/2014 13:03:00 07/27/2014 23:59:59 [facility] Outpatient JEWELS RAMOS APRN [id number] 06/13/2014 10:49:00 06/13/2014 23:59:59 [facility] Outpatient JEWELS RAMOS APRN [id number] 06/08/2014 13:03:00 06/08/2014 23:59:59 CLS Outpatient SYMONE POST APRN [id number] 04/19/2014 10:10:00 04/19/2014 23:59:59 CLS Outpatient VELASQUEZ KAUR PSYD [id number] 04/06/2014 13:24:00 04/06/2014 23:59:59 CLS Outpatient JEWELS ROMANO DO [id number] 03/15/2014 10:35:00 03/15/2014 23:59:59 CLS Outpatient VELASQUEZ KAUR PSYD [id number] 02/23/2014 16:27:00 02/23/2014 23:59:59 CLS Outpatient BRITNEY LERMA APRNA S [id number] 02/06/2014 10:51:00 02/06/2014 23:59:59 CLS Outpatient MARIA GUADALUPE [employer] TON S [id number] 02/02/2014 17:18:00 02/02/2014 23:59:59 CLS Outpatient MARIA GUADALUPE [employer]CH[employer] TON S [id number] 12/29/2013 13:28:00 12/29/2013 23:59:59 CLS Outpatient MARIA GUADALUPE [employer]CHIT[employer] TON S [id number] 12/14/2013 17:38:00 12/14/2013 23:59:59 CLS Outpatient CATHERINE PERALES APRN [id number] 12/12/2013 11:56:00 12/12/2013 23:59:59 CLS Outpatient MARIA GUADALUPE [employer] ARCHITECT, TON S [id number] 11/09/2013 14:10:00 11/09/2013 23:59:59 CLS Outpatient MARIA GUADALUPE [employer] ARCHITECT, TON S [id number] 10/06/2013 15:40:00 10/06/2013 23:59:59 CLS Outpatient MARIA GUADALUPE [employer] ARCHITECT TON S [id number] 05/23/2013 15:36:00 05/23/2013 23:59:59 CLS Outpatient MARIA GUADALUPE [employer] ARCHIT[employer] TON S [id number] 03/29/2013 08:09:00 03/29/2013 23:59:59 CLS Outpatient MARIA GUADALUPE PRO[employer] LANDSCAPE ARCHITECTQUINTENTON S [id number] 03/08/2013 17:05:00 03/08/2013 23:59:59 CLS Outpatient ISAIAS VALENZUELA MD [id number] 02/22/2013 08:48:00 02/22/2013 23:59:59 CLS Outpatient TON LERMA APRN [id number] 11/11/2012 00:00:00 11/11/2012 23:59:59 CLS Outpatient TON LERMA APRN Colin [id number] 08/04/2012 13:50:00 08/04/2012 23:59:59 CLS Outpatient MARJORIE STRONG APRN [id number] 07/19/2012 11:32:00 07/19/2012 23:59:59 CLS Outpatient TON LERMA APRN [id number] 07/12/2012 11:30:00 07/12/2012 23:59:59 CLS Outpatient [id number] 07/01/2012 13:52:00 07/01/2012 23:59:59 CLS Outpatient [id number] 04/17/2012 10:45:00 04/17/2012 23:59:59 CLS Outpatient JEWELS ROMANO DO [id number] 12/09/2012 12:12:00 Document Registration [id number] 11/03/2012 14:53:00 Document Registration [id number] 08/18/2012 15:12:00 Document Registration [id number] 08/17/2017 08:25:00 08/17/2017 23:59:59 CLS Outpatient TON LERMA APRN [facility] [id number] 05/02/2017 15:25:00 Document Registration [id number] 02/10/2017 07:30:00 02/10/2017 23:59:59 CLS Outpatient VINCE MONTAÑO [facility] CARD R07.9 [id number] 01/23/2017 14:54:00 01/23/2017 14:54:00 CAN Preadmit OTHER, UNLISTED [facility] LAB [id number] [id number] 01/23/2017 14:45:00 01/23/2017 14:45:00 CAN Preadmit DEMARCO BETANCUR DO [facility] LAB R79.89 V12.69 [id number] 01/20/2017 14:22:00 01/20/2017 23:59:59 CLS Outpatient VINCE MONTAÑO PRESIDENT[employer] [facility] CARD R07.9 [id number] 01/20/2017 14:20:00 01/20/2017 23:59:59 CLS Outpatient VINCE MONTAÑO PRESIDENT/[employer] [facility] RAD R07.9 [id number] 01/02/2017 12:02:00 01/02/2017 23:59:59 CLS Outpatient MARIA GUADALUPE TON PRESIDENT[employer] [facility] CARD EDEMA R60.9 [id number] 12/27/2016 13:34:00 12/27/2016 15:12:00 DIS Emergency MAKI SHAH, RUSTY Shaw [facility] ER L ARM, BACK, BOTH LEGS NUMBNESS. CP [id number] 03/24/2016 08:43:00 03/24/2016 23:59:59 CLS Outpatient MARIA GUADALUPE TON [employer]IDENT[employer] [facility] RAD LOWER ABD PAIN [id number] 06/14/2015 10:38:00 06/14/2015 23:59:59 CLS Outpatient MARIA GUADALUPE, TON PRESIDENT[employer] [facility] RAD COLITIS [id number] 03/19/2015 09:30:00 03/19/2015 23:59:59 CLS Outpatient MARIA GUADALUPE, TON PRESIDENT[employer] [facility] CARD LEFT CHEST PRESSURE [id number] 03/09/2015 05:38:00 03/09/2015 23:59:59 CLS Outpatient PRIETO ZEPEDA MD [facility] PREOP HX POLPS,FAMILY HX, RECTAL BLEEDING [id number] 03/08/2015 12:02:00 03/08/2015 14:45:00 DIS Outpatient PRIETO ZEPEDA MD [facility] SDC NAUSEA/UPPER GASTRIC PAIN [id number] 03/06/2015 05:42:00 03/06/2015 23:59:59 CLS Outpatient PRIETO ZEPEDA MD [facility] PREOP UPPER GASTRIC PAIN [id number] 03/01/2014 10:38:00 03/01/2014 23:59:59 CLS Outpatient MARIA GUADALUPE TON PRESIDENT[employer] [facility] RAD PAIN IN KNEE [id number] 06/09/2013 14:13:00 06/09/2013 18:07:00 DIS Emergency BETTY SHAH, FRANKLYN Bowen [facility] ER ABD PAIN/VOMITING [id number] 03/10/2013 13:22:00 03/10/2013 23:59:59 CLS Outpatient DERECK ALVAREZ PRESIDENT/[employer] [facility] RAD BILAT NIPPLE DISCHARGE, BREAST PAIN [id number] 11/09/2012 07:47:00 11/09/2012 23:59:59 CLS Outpatient MARJORIE STRONG APRN [facility] RAD ABD PAIN, EPIGASTRIC [id number] 05/24/2015 09:00:00 Document Registration [id number] 08/04/2014 15:30:00 Document Registration [id number] 06/26/2014 11:49:00 Document Registration [id number] 07/05/2012 04:40:00 Document Registration [id number] 04/22/2012 13:36:00 Document Registration [id number] 04/20/2012 18:25:00 Document Registration [id number] 04/10/2011 05:44:00 Document Registration [id number] 04/03/2011 10:01:00 Document Registration [id number] 04/05/2010 14:06:00 Document Registration [id number] 03/18/2016 10:05:00 Document Registration [id number] 02/15/2016 18:06:00 Document Registration [id number] 12/02/2016 09:09:00 Document Registration
[2017-09-30] MEDS ORDERED: LACTATED RINGERS 1,000 ML IV ONE (17:55)
[2017-09-30] MEDS ORDERED: SCOPOLAMINE 1.5 MG (TRANSDERM-SCOP) PATCH TD ONE (18:00)
--- NOTE | 2017-09-30 18:13 | ED General ---
General Chief Complaint: Dizziness/Syncope Stated Complaint: DIZZY, MUSCLE SPASMS, CONFUSION Source of Information: Patient Exam Limitations: No Limitations History of Present Illness Date Seen by Provider: September 30, 2017 Time Seen by Provider: 17:55 Initial Comments PT ARRIVES VIA POV FROM HOME PT WITH MULTIPLE COMPLAINTS--ALL ONGOING FOR MONTHS TO YEARS C/O DIZZINESS ON WAKING AND "SOMETIMES MY VISION GOES DARK"--STATES HAS BEEN A LITTLE WORSE FOR SEVERAL DAYS C/O "SPASMS ALL OVER MY BODY" --ONGOING FOR > 6 MONTHS, MAYBE EVEN A YEAR STATES "TODAY I GOT CONFUSED AND MY SPEECH GOT SLURRED" AROUND 1630, LASTED , 1 HOUR--WENT TO [facility] AND THEN CAME HERE PT STATES "WHEN I MOVE AROUND IT CAN FEEL IT COMING ON" PT STATES HER WHOLE FACE "FEELS TINGLY--LIKE MY MUSCLES ARE CONSTRICTED, LIKE WHEN YOU ARE COLD AND YOUR BODY TENSES UP" PT STATES SHE HAS BEEN HAVING ISSUES WITH IRITIS FOR OVER 3 MONTHS AND IS NO DIFFERENT PT HAS HAD A HISTORY OF ALL OF THESE SAME SYMPTOMS OFF AND ON FOR MANY YEARS-- NEVER SOUGHT CARE, AND HAS NOT SEEN A DR IN OVER 6 MONTHS PT STATES "I FEEL ALRIGHT RIGHT NOW" NO HEADACHE NO NAUSEA/VOMITING NO CHEST PAIN NO SHORTNESS OF BREATH NO PALPITATIONS NO MOTOR DEFICITS, NO OTHER PARESTHESIAS OTHER THAT WHAT SHE DESCRIBED WITH HER FACE NO URINARY SYMPTOMS NO NEW MEDICATIONS PCP: [facility], 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, IS SWITCHING TO [employer] [facility], BUT HAS NOT SEEN HER YET Allergies and Home Medications Allergies Coded Allergies: methotrexate (Unverified Allergy, Unknown, INCREASED LIVER ENZYMES, ) procaine (Unverified Allergy, Unknown, RASH, 06/26/14) Home Medications Albuterol 8.5 Gm Hfa.aer.ad, 1 PUFF IH RTQ4HR, (Reported) 1 PUFFS Amlodipine Besylate 10 Mg Tablet, 10 MG PO DAILY, (Reported) Colestipol HCl 1 Gm Tablet, 1 GM PO HS, (Reported) Folic Acid 1 Mg Tablet, 1 MG PO DAILY, (Reported) Lisinopril 40 Mg Tablet, 40 MG PO DAILY, (Reported) Omeprazole 40 Mg Capsule.dr, 40 MG PO BID, (Reported) Propranolol HCl 20 Mg Tablet, 20 MG PO BID, (Reported) Trazodone Hcl 150 Mg Tablet, 150 MG PO HS, (Reported) Venlafaxine HCl 75 Mg Cap.er.24h, 75 MG PO DAILY, (Reported) TAKE WITH 150MG DOSE Venlafaxine HCl 75 Mg Tab, 75 MG PO DAILY, (Reported) Venlafaxine Hcl 150 Mg Cap.sr.24h, 150 MG PO DAILY, (Reported) TAKE WITH 75MG DOSE Zolpidem Tartrate 10 Mg Tablet, 10 MG PO HS PRN for INSOMNIA, (Reported) PRN INSOMNIA Patient Home Medication List Home Medication List Reviewed: Yes Review of Systems Constitutional: No chills, No diaphoresis; dizziness; No fever, No malaise, No weakness EENTM: see HPI Respiratory: no symptoms reported; No cough, No dyspnea on exertion, No short of breath Cardiovascular: no symptoms reported; No chest pain, No edema, No palpitations , No syncope, No vascular heart diseas Gastrointestinal: no symptoms reported; No abdominal pain, No loss of appetite , No nausea, No vomiting Genitourinary: no symptoms reported Musculoskeletal: see HPI; No back pain; muscle cramps; No neck pain Skin: no symptoms reported Psychiatric/Neurological: See HPI; Denies Headache Hematologic/Lymphatic: No Symptoms Reported Immunological/Allergic: no symptoms reported Past Mzyrdqv-Nyxmud-Wlzsrb Hx Patient Social History Alcohol Use: Rarely Uses Recreational Drug Use: Yes (THC, METH, COCAINE BY HISTORY--DENIES IV USE-- CLAIMS "NO USE FOR YEARS" BUT TESTED + FOR METHAMPHETAMINES 09/30/17) Drug of Choice: THC,METH,COCAINE-NO IV USE.CLAIMS "NONE FOR YEARS"-TEST + FOR METH 09/30/17 Smoking Status: Former Smoker (1 05/05 PPD--QUIT 1 YEAR AGO) Type Used: Cigarettes, Electronic/Vapor Recent Foreign Travel: No Contact w/Someone Who Travel: No Physical Abuse: No Sexual Abuse: No Mistreated: No Fear: No Immunizations Up To Date Date of Pneumonia Vaccine: Mar 08, 2013 Date of Influenza Vaccine: Jan 09, 2011 Past Medical History Surgeries: Yes (RIGHT KNEE SCOPE, EGD/COLONOSCOPY) Appendectomy, Gallbladder, Orthopedic, Tubal Ligation Respiratory: Yes Asthma, Chronic Bronchitis, COPD Cardiac: Yes (recent telemetry for chest pain) High Cholesterol, Hypertension Neurological: Yes Vertigo 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 History: Tubal Ligation, Menopausal Sexually Transmitted Disease: No Genitourinary: No Gastrointestinal: Yes (FATTY LIVER) Liver Disease/Jaundice Musculoskeletal: Yes (RIGHT KNEE SCOPE) Fibromyalgia Endocrine: No HEENT: Yes (IRITIS) Cancer: No Psychosocial: No Nursing Suicide Risk Score: 0 Integumentary: No Blood Disorders: No Physical Exam Vital Signs Vital Signs - First Documented 09/30/17 18:02 Temp 96.4 Pulse 85 Resp 20 B/P (MAP) 143/83 (103) Pulse Ox 94 Capillary Refill : General Appearance: No Apparent Distress, WD/WN, Obese HEENT: PERRL/EOMI Neck: Full Range of Motion, Normal Inspection, Non Tender, Supple Respiratory: Normal Breath Sounds, No Accessory Muscle Use, No Respiratory Distress Cardiovascular: Regular Rate, Rhythm, No Edema, No JVD, No Murmur, Normal Peripheral Pulses Gastrointestinal: Normal Bowel Sounds, No Organomegaly, No Pulsatile Mass, Non Tender, Soft Back: Normal Inspection Extremity: Normal Capillary Refill, Normal Inspection, Normal Range of Motion, Non Tender, No Calf Tenderness, No Pedal Edema Neurologic/Psychiatric: Alert, Oriented x3, No Motor/Sensory Deficits, Normal 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, 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 Norm as Tested; No Abnormal Cerebellar Tests Reflexes: 2+ Knee (R), 2+ Knee (L) Skin: Normal Color, Warm/Dry; No Rash Focused Exam Lactate Level 09/30/17 18:51: Lactic Acid Level 0.93 Lactic Acid Level Progress/Results/Core Measures Suspected Sepsis SIRS Temperature: Pulse: Respiratory Rate: Laboratory Tests 09/30/17 17:35: White Blood Count 13.6H 10/01/17 03:30: White Blood Count 10.7 Blood Pressure / Mean: 09/30/17 18:51: Lactic Acid Level 0.93 Laboratory Tests 09/30/17 17:35: Creatinine 1.96H, INR Comment 1.1, Platelet Count 391, Total Bilirubin 0.3 10/01/17 03:30: Creatinine 1.79H, Platelet Count 306, Total Bilirubin 0.3 Results/Orders Lab Results Laboratory Tests Test 09/30/17 17:33 09/30/17 17:35 09/30/17 18:51 09/30/17 19:46 Range/Units Urine Color YELLOW Urine Clarity SLIGHTLY CLOUDY Urine pH 6 5-9 Urine Specific [place] 1.015 L 1.016-1.022 Urine Protein 3+ H NEGATIVE Urine Glucose (UA) NEGATIVE NEGATIVE Urine Ketones NEGATIVE NEGATIVE Urine Nitrite NEGATIVE NEGATIVE Urine Bilirubin NEGATIVE NEGATIVE Urine Urobilinogen NORMAL NORMAL MG/DL Urine Leukocyte Esterase 3+ H NEGATIVE Urine RBC (Auto) 1+ H NEGATIVE Urine RBC 2-5 H /HPF Urine WBC >100 H /HPF Urine Squamous Epithelial Cells >50 H /HPF Urine Crystals NONE /LPF Urine Bacteria LARGE H /HPF Urine Casts NONE /LPF Urine Mucus NEGATIVE /LPF Urine Culture Indicated YES Urine Opiates Screen NEGATIVE NEGATIVE Urine Oxycodone Screen NEGATIVE NEGATIVE Urine Methadone Screen NEGATIVE NEGATIVE Urine Propoxyphene Screen NEGATIVE NEGATIVE Urine Barbiturates Screen NEGATIVE NEGATIVE Ur Tricyclic Antidepressants Screen NEGATIVE NEGATIVE Urine Phencyclidine Screen NEGATIVE NEGATIVE Urine Amphetamines Screen NEGATIVE NEGATIVE Urine Methamphetamines Screen POSITIVE H NEGATIVE Urine Benzodiazepines Screen NEGATIVE NEGATIVE Urine Cocaine Screen NEGATIVE NEGATIVE Urine Cannabinoids Screen NEGATIVE NEGATIVE White Blood Count 13.6 H 4.3-11.0 10^3/uL Red Blood Count 4.02 L 4.35-5.85 10^6/uL Hemoglobin 11.6 11.5-16.0 G/DL Hematocrit 36 35-52 % Mean Corpuscular Volume 88 80-99 FL Mean Corpuscular Hemoglobin 29 25-34 PG Mean Corpuscular Hemoglobin Concent 33 32-36 G/DL Red Cell Distribution Width 13.8 10.0-14.5 % Platelet Count 391 130-400 10^3/uL Mean Platelet Volume 10.4 7.4-10.4 FL Neutrophils (%) (Auto) 69 42-75 % Lymphocytes (%) (Auto) 19 12-44 % Monocytes (%) (Auto) 8 0-12 % Eosinophils (%) (Auto) 3 0-10 % Basophils (%) (Auto) 0 0-10 % Neutrophils # (Auto) 9.4 H 1.8-7.8 X 10^3 Lymphocytes # (Auto) 2.5 1.0-4.0 X 10^3 Monocytes # (Auto) 1.1 H 0.0-1.0 X 10^3 Eosinophils # (Auto) 0.5 H 0.0-0.3 10^3/uL Basophils # (Auto) 0.0 0.0-0.1 10^3/uL Prothrombin Time 13.9 12.2-14.7 SEC INR Comment 1.1 0.8-1.4 Activated Partial Thromboplast Time 31 24-35 SEC Sodium Level 140 135-145 MMOL/L Potassium Level 3.5 L 3.6-5.0 MMOL/L Chloride Level 107 98-107 MMOL/L Carbon Dioxide Level 19 L 21-32 MMOL/L Anion Gap 14 5-14 MMOL/L Blood Urea Nitrogen 20 H 7-18 MG/DL Creatinine 1.96 H 0.60-1.30 MG/DL Estimat Glomerular Filtration Rate 27 BUN/Creatinine Ratio 10 Glucose Level 112 H 70-105 MG/DL Calcium Level 6.5 L 8.5-10.1 MG/DL Magnesium Level 0.8 *L 1.8-2.4 MG/DL Total Bilirubin 0.3 0.1-1.0 MG/DL Aspartate Amino Transf (AST/SGOT) 21 5-34 U/L Alanine Aminotransferase (ALT/SGPT) 29 0-55 U/L Alkaline Phosphatase 106 40-136 U/L Total Creatine Kinase 212 H 29-168 U/L Creatine Kinase MB 0.9 <6.6 NG/ML Myoglobin 57.4 10.0-92.0 NG/ML Troponin I < 0.30 <0.30 NG/ML B-Type Natriuretic Peptide 11.8 <100.0 PG/ML Total Protein 7.6 6.4-8.2 GM/DL Albumin 4.0 3.2-4.5 GM/DL Free Thyroxine 1.17 0.70-1.48 NG/DL TSH [place] Testing 0.16 L 0.35-4.94 UIU/ML Serum Alcohol < 10 <10 MG/DL Lactic Acid Level 0.93 0.50-2.00 MMOL/L Test 10/01/17 03:30 Range/Units White Blood Count 10.7 4.3-11.0 10^3/uL Red Blood Count 3.79 L 4.35-5.85 10^6/uL Hemoglobin 11.3 L 11.5-16.0 G/DL Hematocrit 33 L 35-52 % Mean Corpuscular Volume 87 80-99 FL Mean Corpuscular Hemoglobin 30 25-34 PG Mean Corpuscular Hemoglobin Concent 34 32-36 G/DL Red Cell Distribution Width 13.5 10.0-14.5 % Platelet Count 306 130-400 10^3/uL Mean Platelet Volume 10.0 7.4-10.4 FL Neutrophils (%) (Auto) 73 42-75 % Lymphocytes (%) (Auto) 15 12-44 % Monocytes (%) (Auto) 9 0-12 % Eosinophils (%) (Auto) 3 0-10 % Basophils (%) (Auto) 0 0-10 % Neutrophils # (Auto) 7.8 1.8-7.8 X 10^3 Lymphocytes # (Auto) 1.6 1.0-4.0 X 10^3 Monocytes # (Auto) 1.0 0.0-1.0 X 10^3 Eosinophils # (Auto) 0.3 0.0-0.3 10^3/uL Basophils # (Auto) 0.0 0.0-0.1 10^3/uL Sodium Level 139 135-145 MMOL/L Potassium Level 3.6 3.6-5.0 MMOL/L Chloride Level 107 98-107 MMOL/L Carbon Dioxide Level 20 L 21-32 MMOL/L Anion Gap 12 5-14 MMOL/L Blood Urea Nitrogen 17 7-18 MG/DL Creatinine 1.79 H 0.60-1.30 MG/DL Estimat Glomerular Filtration Rate 30 BUN/Creatinine Ratio 9 Glucose Level 130 H 70-105 MG/DL Calcium Level 7.6 L 8.5-10.1 MG/DL Magnesium Level 3.9 H 1.8-2.4 MG/DL Total Bilirubin 0.3 0.1-1.0 MG/DL Aspartate Amino Transf (AST/SGOT) 15 5-34 U/L Alanine Aminotransferase (ALT/SGPT) 24 0-55 U/L Alkaline Phosphatase 97 40-136 U/L Total Protein 6.8 6.4-8.2 GM/DL Albumin 3.7 3.2-4.5 GM/DL My Orders Orders - MEENA,ELIZABETH K DO Saline Lock/Iv-Start (09/30/17 17:55) Ekg Tracing (09/30/17 17:55) Monitor-Rhythm Ecg Trace Only (09/30/17 17:55) BNP (09/30/17 17:55) Cbc With Automated Diff (09/30/17 17:55) Comprehensive Metabolic Panel (09/30/17 17:55) Creatine Kinase (09/30/17 17:55) Creatine Kinase Mb (09/30/17 17:55) Magnesium (09/30/17 17:55) Protime With Inr (09/30/17 17:55) Partial Thromboplastin Time (09/30/17 17:55) Thyroid Analyzer (09/30/17 17:55) Troponin I (09/30/17 17:55) Ua Culture If Indicated (09/30/17 17:55) Chest 1 View, Ap/Pa Only (09/30/17 17:55) Saline Lock/Iv-Start (09/30/17 17:55) Lactated Ringers (Lr 1000 Ml Iv Solution (09/30/17 17:55) Ct Head Wo-R/O Stroke (09/30/17 17:55) Alcohol (09/30/17 17:55) Drug Screen Stat (Urine) (09/30/17 17:55) Myoglobin Serum (09/30/17 17:55) Scopolamine Patch (Transderm-Scop Patch) (09/30/17 18:00) Urine Culture (09/30/17 17:33) Magnesium 1 Gm/100 Ml Ivpb (Magnesium Rdz (09/30/17 18:45) Lactic Acid Analyzer (09/30/17 18:42) Blood Culture (09/30/17 18:42) Ceftriaxone Injection (Rocephin Injectio (09/30/17 18:45) Calcium Chloride 10% Injection (Calcium (09/30/17 19:00) Free T4 (Free Thyroxine) (09/30/17 17:35) Para Thryoid Hormone Intact (09/30/17 19:09) Calcium Gluconate 10% Inj (Calcium Gluco (09/30/17 19:45) Medications Given in ED Vital Signs/I&O 09/30/17 09/30/17 09/30/17 09/30/17 19:54 20:03 20:30 20:30 Temp 99.6 Pulse 81 81 76 Resp 20 20 B/P (MAP) 132/65 127/79 (95) Pulse Ox 94 95 96 O2 Delivery Room Air Room Air 09/30/17 09/30/17 10/01/17 10/01/17 22:00 23:22 00:00 00:00 Temp 98.5 Pulse 72 82 Resp 16 B/P (MAP) 103/76 (85) 116/77 (90) Pulse Ox 96 O2 Delivery Room Air Room Air Room Air 10/01/17 10/01/17 10/01/17 10/01/17 00:00 01:00 01:00 02:00 Pulse 75 69 72 75 B/P (MAP) 110/76 (87) 112/79 (90) 140/89 (106) O2 Delivery Room Air Room Air Room Air 10/01/17 10/01/17 10/01/17 10/01/17 03:00 04:00 04:00 05:00 Pulse 80 76 77 B/P (MAP) 146/92 (110) 126/84 (98) 131/75 (93) Pulse Ox 94 O2 Delivery Room Air Room Air Room Air Room Air Capillary Refill : ECG Initial ECG Impression Date: September 30, 2017 Initial ECG Impression Time: 18:14 Initial ECG Rate: 80 Initial ECG Rhythm: Normal Sinus Initial ECG Impression: Normal Diagnostic Imaging Comments CXR--NO ACUTE PROCESS CT HEAD--NO ACUTE PROCESS PER RADIOLOGIST REPORTS @ 1855 Reviewed: Reviewed by Me Departure Communication (Admissions) SPOKE WITH DR. ROSAS, HOSPITALIST LEGAL RECORDS CLERK FOR [facility], ACCEPTS PT FOR ADMIT. ORDERS NOTED. Impression Primary Impression: SEVERE HYPOMAGNESIA Additional Impressions: UTI (urinary tract infection) DEHYDRATION/RENAL INSUFFICIENCY TRANSIENT DIZZINESS TRANSIENT ALTERED MENTAL STATUS TRANSIENT PARESTHESIAS Low TSH level SEVERE HYPOCALCEMIA Illicit drug use Disposition: 09 ADMITTED INPATIENT Condition: Stable Admissions Decision to Admit Reason: Admit from ER (General) Decision to Admit/Date: September 30, 2017 Time/Decision to Admit Time: 19:00 Departure-Patient Inst. Referrals: ISAIAS VALENZUELA MD (PCP) Primary Care Physician TON LERMA (Family) Primary Care Physician ELIZABETH ROBLEDO DO September 30, 2017 18:13
[2017-09-30 18:16] LABS: BASOPHILS % (AUTO) 0 % (0-10); EOSINOPHILS # (AUTO) 0.5 10^3/uL (0.0-0.3); EOSINOPHILS % (AUTO) 3 % (0-10); HEMATOCRIT 36 % (35-52); HEMOGLOBIN 11.6 G/DL (11.5-16.0); LYMPHOCYTES # (AUTO) 2.5 X 10^3 (1.0-4.0); LYMPHOCYTES % (AUTO) 19 % (12-44); MEAN CORPUSCULAR HEMOGLOBIN 29 PG (25-34); MEAN CORPUSCULAR HGB CONC 33 G/DL (32-36); MEAN CORPUSCULAR VOLUME 88 FL (80-99); MEAN PLATELET VOLUME 10.4 FL (7.4-10.4); MONOCYTES # (AUTO) 1.1 X 10^3 (0.0-1.0); MONOCYTES % (AUTO) 8 % (0-12); NEUTROPHILS # (AUTO) 9.4 X 10^3 (1.8-7.8); NEUTROPHILS % (AUTO) 69 % (42-75); PLATELET COUNT 391 10^3/uL (130-400); RED BLOOD COUNT 4.02 10^6/uL (4.35-5.85); RED CELL DISTRIBUTION WIDTH 13.8 % (10.0-14.5); WHITE BLOOD COUNT 13.6 10^3/uL (4.3-11.0)
[2017-09-30 18:22] LABS: INR 1.1 (0.8-1.4); PROTHROMBIN TIME PATIENT 13.9 SEC (12.2-14.7)
[2017-09-30 18:29] LABS: BILIRUBIN,URINE NEGATIVE (NEGATIVE); CLARITY,URINE SLIGHTLY CLOUDY; COLOR,URINE YELLOW; GLUCOSE, URINE (UA) NEGATIVE (NEGATIVE); KETONES,URINE NEGATIVE (NEGATIVE); LEUKOCYTE ESTERASE ,URINE 3+ (NEGATIVE); NITRITE,URINE NEGATIVE (NEGATIVE); PH,URINE 6 (5-9); PROTEIN,URINE 3+ (NEGATIVE); UROBILINOGEN,URINE NORMAL (NORMAL)
[2017-09-30 18:31] LABS: ALANINE AMINOTRANSFERASE 29 U/L (0-55); ALKALINE PHOSPHATASE 106 U/L (40-136); BILIRUBIN,TOTAL 0.3 MG/DL (0.1-1.0); BUN/CREATININE RATIO 10; CALCIUM 6.5 MG/DL (8.5-10.1); CARBON DIOXIDE 19 MMOL/L (21-32); CHLORIDE 107 MMOL/L (98-107); CREATINE KINASE 212 U/L (29-168); CREATININE SERUM 1.96 MG/DL (0.60-1.30); GFR ESTIMATED 27; GLUCOSE 112 MG/DL (70-105); POTASSIUM 3.5 MMOL/L (3.6-5.0); SODIUM 140 MMOL/L (135-145); TOTAL PROTEIN 7.6 GM/DL (6.4-8.2)
[2017-09-30 18:33] LABS: MAGNESIUM 0.8 MG/DL (1.8-2.4)
[2017-09-30 18:36] LABS: BACTERIA,URINE LARGE /HPF; SQUAMOUS EPITHELIAL CELL,UR >50 /HPF; WBC,URINE >100 /HPF
[2017-09-30 18:41] LABS: METHAMPHETAMINE SCREEN URINE S POSITIVE (NEGATIVE)
[2017-09-30 18:42] LABS: AMPHETAMINE SCREEN, URINE NEGATIVE (NEGATIVE); BARBITURATE SCREEN URINE NEGATIVE (NEGATIVE); BENZODIAZEPINES SCREEN URINE NEGATIVE (NEGATIVE); CANNABINOID SCREEN, URINE NEGATIVE (NEGATIVE); COCAINE SCREEN URINE NEGATIVE (NEGATIVE); METHADONE STAT NEGATIVE (NEGATIVE); OPIATE SCREEN URINE NEGATIVE (NEGATIVE); OXYCODONE STAT NEGATIVE (NEGATIVE); PROPOXYPHENE STAT NEGATIVE (NEGATIVE); TRICYCLIC ANTIDEPRESSANTS SCRE NEGATIVE (NEGATIVE)
[2017-09-30] MEDS ORDERED: cefTRIAXone INJECTION 1,000 MG in NS (IVPB) 50 ML IV ONE (18:45)
[2017-09-30] MEDS ORDERED: MAGNESIUM 1 GM/100 ML IVPB 100 ML IV SCH (18:45)
[2017-09-30 18:50] LABS: CREATINE KINASE MB 0.9 NG/ML (<6.6); MYOGLOBIN SERUM 57.4 NG/ML (10.0-92.0); TSH (THYROID ANALYZER) 0.16 UIU/ML (0.35-4.94)
--- NOTE | 2017-09-30 18:52 | Diagnostic Imaging Report ---
Indication: Altered mental status CT head without contrast The ventricles are normal in size, shape and position. There are no masses or hemorrhages. There are no extra-axial fluid collections. Impression: Negative CT head Dictated by: Dictated on workstation # [id number]
--- NOTE | 2017-09-30 18:53 | Diagnostic Imaging Report ---
INDICATION: Confusion and worsening dizziness. EXAMINATION: Portable chest at 6:39 p.m. FINDINGS: Heart size and pulmonary vascularity are normal. Lungs are clear. There are no effusions or pneumothoraces. IMPRESSION: Negative chest. Dictated by: Dictated on workstation # [id number]
[2017-09-30] MEDS ORDERED: CALCIUM CHLORIDE 1 GM/10 ML (IMS) SYR INJ ONE (19:00)
--- OUTSIDE RECORDS SUMMARY | 2017-09-30 19:40 | XMS REPORT | Continuity of Care Document ---
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 Novacaine OA N/A N /A 09/19/2010 Yes No Known Drug Allergies [id number] Drug Allergy Unknown N/A 04/10/2011 Yes methotrexate Drug Allergy N/ A N/A 02/06/2014 Yes methotrexate [id number] Drug Allergy Unknown INCREASED LIVER 06/26/2014 Yes procaine [id number] Drug Allergy Unknown RASH 06/26/2014 Medications There [...] 724.2 PAIN LOW BACK 11/10/2007 MARIA GUADALUPE RETAIL FINANCIAL ANALYST, TON S 723.1 Pain Neck 11/10/2007 MARIA GUADALUPE RETAIL FINANCIAL ANALYST, TON S 724.2 PAIN LOW BACK 11/10/2007 ISAIAS VALENZUELA MD 723.1 Pain Neck 11/10/2007 ISAIAS VALENZUELA MD 724.2 PAIN LOW BACK 11/10/2007 MARIA GUADALUPE RETAIL FINANCIAL ANALYST, TON S 723.1 Pain Neck 11/10/2007 MARIA GUADALUPE RETAIL FINANCIAL ANALYST, TON S 724.2 PAIN LOW BACK 11/10/2007 MARIA GUADALUPE RETAIL FINANCIAL ANALYST, TON S 723.1 Pain Neck 11/10/2007 MARIA GUADALUPE RETAIL FINANCIAL ANALYST, TON S 724.2 PAIN LOW BACK 11/10/2007 MARIA GUADALUPE RETAIL FINANCIAL ANALYST, TON S 723.1 Pain Neck 11/10/2007 MARIA GUADALUPE RETAIL FINANCIAL ANALYST, TON S 724.2 PAIN LOW BACK 11/10/2007 MARIA GUADALUPE RETAIL FINANCIAL ANALYST, TON S 723.1 Pain Neck 11/10/2007 MARIA GUADALUPE RETAIL FINANCIAL ANALYST, TON S 724.2 PAIN LOW BACK 11/10/2007 MARIA GUADALUPE RETAIL FINANCIAL ANALYST, TON S 723.1 Pain Neck 11/10/2007 MARIA GUADALUPE RETAIL FINANCIAL ANALYST, TON S 724.2 PAIN LOW BACK 11/10/2007 DIAZ RETAIL FINANCIAL ANALYST, CATHERINE T 723.1 Pain Neck 11/10/2007 DIAZ RETAIL FINANCIAL ANALYST, CATHERINE T 724.2 PAIN LOW BACK 11/10/2007 MARIA GUADALUPE RETAIL FINANCIAL ANALYST, TON S 723.1 Pain Neck 11/10/2007 MARIA GUADALUPE RETAIL FINANCIAL ANALYST, TON S 724.2 PAIN LOW BACK 11/10/2007 MARIA GUADALUPE RETAIL FINANCIAL ANALYST, TON S 723.1 Pain Neck 11/10/2007 MARIA GUADALUPE RETAIL FINANCIAL ANALYST, TON S 724.2 PAIN LOW BACK 11/10/2007 MARIA GUADALUPE RETAIL FINANCIAL ANALYST, TON S 723.1 Pain Neck 11/10/2007 MARIA GUADALUPE RETAIL FINANCIAL ANALYST, TON S 724.2 PAIN LOW BACK 11/10/2007 MARIA GUADALUPE RETAIL FINANCIAL ANALYST, TON S 723.1 Pain Neck 11/10/2007 MARIA GUADALUPE RETAIL FINANCIAL ANALYST, TON S 724.2 PAIN LOW BACK 11/10/2007 MCCLEEARY PSYD, GERONIMO L 723.1 Pain Neck 11/10/2007 NATASHA PERALES, GERONIMO L 724.2 PAIN LOW BACK 11/10/2007 SACHA ROMANO DOA K 723.1 Pain Neck 11/10/2007 ROMANO DO, JEWELS K 724.2 PAIN LOW BACK 11/10/2007 NATASHA PERALES, GERONIMO L 723.1 Pain Neck 11/10/2007 NATASHA PERALES, GERONIMO L 724.2 PAIN LOW BACK 11/10/2007 POST RETAIL FINANCIAL ANALYST, SYMONE D 723.1 Pain Neck 11/10/2007 POST RETAIL FINANCIAL ANALYST, SYMONE D 724.2 PAIN LOW BACK 11/10/2007 RICHARD RETAIL FINANCIAL ANALYST, JEWELS 723.1 Pain Neck 11/10/2007 RICHARD RETAIL FINANCIAL ANALYST, JEWELS 724.2 PAIN LOW BACK 11/10/2007 RICHARD RETAIL FINANCIAL ANALYST, JEWELS 723.1 Pain Neck 11/10/2007 RICHARD RETAIL FINANCIAL ANALYST, JEWELS 724.2 PAIN LOW BACK 11/10/2007 RICHARD RETAIL FINANCIAL ANALYST, JEWELS 723.1 Pain Neck 11/10/2007 RICHARD RETAIL FINANCIAL ANALYST, JEWELS 724.2 PAIN LOW BACK 11/11/2007 ROMANO [...] S 847.0 Sprain/strain Neck 11/11/2007 MARIA GUADALUPE RETAIL FINANCIAL ANALYST, TON S 847.0 Sprain/strain Neck 11/11/2007 MARIA GUADALUPE RETAIL FINANCIAL ANALYST, TON S 847.0 Sprain/strain Neck 11/11/2007 MARIA GUADALUPE RETAIL FINANCIAL ANALYST, TON S 847.0 Sprain/strain Neck 11/11/2007 MARIA GUADALUPE RETAIL FINANCIAL ANALYST, TON S 847.0 Sprain/strain Neck 11/11/2007 CATHERINE PERALES APRN 847.0 Sprain/strain Neck 11/11/2007 MARIA GUADALUPE RETAIL FINANCIAL ANALYST, TON S 847.0 Sprain/strain Neck 11/11/2007 MARIA GUADALUPE RETAIL FINANCIAL ANALYST, TON S 847.0 Sprain/strain Neck 11/11/2007 MARIA GUADALUPE RETAIL FINANCIAL ANALYST, TON S 847.0 Sprain/strain Neck 11/11/2007 MARIA GUADALUPE RETAIL FINANCIAL ANALYST, TON S 847.0 Sprain/strain Neck 11/11/2007 VELASQUEZ KAUR PSYD ANN L 847.0 Sprain/strain Neck 11/11/2007 JEWELS ROMANO DO K 847.0 Sprain/strain Neck 11/11/2007 VELASQUEZ KAUR PSYD ANN L 847.0 Sprain/strain Neck 11/11/2007 SEJAL RETAIL FINANCIAL ANALYSTSYMONE Ramos D 847.0 Sprain/strain Neck 11/11/2007 RICHARD RETAIL FINANCIAL ANALYST, JEWELS 847.0 Sprain/strain Neck 11/11/2007 RICHARD RETAIL FINANCIAL ANALYST, JEWELS 847.0 Sprain/strain Neck 11/11/2007 RICHARD RETAIL FINANCIAL ANALYST, JEWELS 847.0 Sprain/strain Neck 12/09/2007 JEWELS ROMANO [...] Region Not Elsewhere Classified 12/09/2007 MARIA GUADALUPE RETAIL FINANCIAL ANALYST, TON S 739.3 Nonallopathic Lesions Of Lumbar Region Not Elsewhere Classified 12/09/2007 MARIA GUADALUPE RETAIL FINANCIAL ANALYST, TON S 739.4 Nonallopathic Lesions Of Sacral Region Not Elsewhere Classified 12/09/2007 MARIA GUADALUPE VAUGHN, TON S 739.3 Nonallopathic Lesions Of Lumbar Region Not Elsewhere Classified 12/09/2007 MARIA GUADALUPE RETAIL FINANCIAL ANALYST, TON S 739.4 Nonallopathic Lesions Of Sacral Region Not Elsewhere Classified 12/09/2007 MARIA GUADALUPE RETAIL FINANCIAL ANALYST, TON S 739.3 Nonallopathic Lesions Of Lumbar Region Not Elsewhere Classified 12/09/2007 MARIA GUADALUPE RETAIL FINANCIAL ANALYST, TON S 739.4 Nonallopathic Lesions Of Sacral Region Not Elsewhere Classified 12/09/2007 MARIA GUADALUPE RETAIL FINANCIAL ANALYST, TON S 739.3 Nonallopathic Lesions Of Lumbar Region Not Elsewhere Classified 12/09/2007 MARIA GUADALUPE RETAIL FINANCIAL ANALYST, TON S 739.4 Nonallopathic Lesions Of Sacral Region Not Elsewhere Classified 12/09/2007 CATHERINE PERALES APRN 739.3 Nonallopathic Lesions Of Lumbar Region Not Elsewhere Classified 12/09/2007 CATHERINE PERALES APRN 739.4 Nonallopathic Lesions Of Sacral Region Not Elsewhere Classified 12/09/2007 MARIA GUADALUPE RETAIL FINANCIAL ANALYST, TON S 739.3 Nonallopathic Lesions Of Lumbar Region Not Elsewhere Classified 12/09/2007 MARIA GUADALUPE RETAIL FINANCIAL ANALYST, TON S 739.4 Nonallopathic Lesions Of Sacral Region Not Elsewhere Classified 12/09/2007 MARIA GUADALUPE RETAIL FINANCIAL ANALYST, TON S 739.3 Nonallopathic Lesions Of Lumbar Region Not Elsewhere Classified 12/09/2007 MARIA GUADALUPE RETAIL FINANCIAL ANALYST, TON S 739.4 Nonallopathic Lesions Of Sacral Region Not Elsewhere Classified 12/09/2007 MARIA GUADALUPE RETAIL FINANCIAL ANALYST, TON S 739.3 Nonallopathic Lesions Of Lumbar Region Not Elsewhere Classified 12/09/2007 MARIA GUADALUPE RETAIL FINANCIAL ANALYST, TON S 739.4 Nonallopathic Lesions Of Sacral Region Not Elsewhere Classified 12/09/2007 MARIA GUADALUPE RETAIL FINANCIAL ANALYST, TON S 739.3 Nonallopathic Lesions Of Lumbar Region Not Elsewhere Classified 12/09/2007 MARIA GUADALUPE RETAIL FINANCIAL ANALYST, TON S 739.4 Nonallopathic Lesions Of Sacral [...] Sacral Region Not Elsewhere Classified 12/09/2007 SEJAL RETAIL FINANCIAL ANALYSTSYMONE Ramos 739.3 Nonallopathic Lesions Of Lumbar Region Not Elsewhere Classified 12/09/2007 POST RETAIL FINANCIAL ANALYSTSYMONE Ramos D 739.4 Nonallopathic Lesions Of Sacral Region Not Elsewhere Classified 12/09/2007 RICHARD RETAIL FINANCIAL ANALYST, JEWELS 739.3 Nonallopathic Lesions Of Lumbar Region Not Elsewhere Classified 12/09/2007 RICHARD RETAIL FINANCIAL ANALYST, JEWELS 739.4 Nonallopathic Lesions Of Sacral Region Not Elsewhere Classified 12/09/2007 RICHARD RETAIL FINANCIAL ANALYST JEWELS 739.3 Nonallopathic Lesions Of Lumbar Region Not Elsewhere Classified 12/09/2007 RICHARD RETAIL FINANCIAL ANALYST, JEWELS 739.4 Nonallopathic Lesions Of Sacral Region Not Elsewhere Classified 12/09/2007 IRCHARD RETAIL FINANCIAL ANALYST, JEWELS 739.3 Nonallopathic Lesions Of Lumbar Region Not Elsewhere Classified 12/09/2007 RICHARD RETAIL FINANCIAL ANALYST JEWELS 739.4 Nonallopathic Lesions Of Sacral Region [...] Sprain/strain Other Unspec Site 12/30/2007 MARIA GUADALUPE RETAIL FINANCIAL ANALYST, TON S 848.9 Sprain/strain Other Unspec Site 12/30/2007 ISAIAS VALENZUELA MD 848.9 Sprain/strain Other Unspec Site 12/30/2007 MARIA GUADALUPE RETAIL FINANCIAL ANALYST, TON S 848.9 Sprain/strain Other Unspec Site 12/30/2007 MARIA GUADALUPE RETAIL FINANCIAL ANALYST, TON S 848.9 Sprain/strain Other Unspec Site 12/30/2007 MARIA GUADALUPE RETAIL FINANCIAL ANALYST, TON S 848.9 Sprain/strain Other Unspec Site 12/30/2007 MARIA GUADALUPE RETAIL FINANCIAL ANALYST, TON S 848.9 Sprain/strain Other Unspec Site 12/30/2007 MARIA GUADALUPE RETAIL FINANCIAL ANALYST, TON S 848.9 Sprain/strain Other Unspec Site 12/30/2007 CATHERINE PERALES APRN 848.9 Sprain/strain Other Unspec Site 12/30/2007 MARIA GUADALUPE RETAIL FINANCIAL ANALYST, TON S 848.9 Sprain/strain Other Unspec Site 12/30/2007 MARIA GUADALUPE VAUGHN, TON S 848.9 Sprain/strain Other Unspec Site 12/30/2007 MARIA GUADALUPE RETAIL FINANCIAL ANALYST, TON S 848.9 Sprain/strain Other Unspec Site [...] ONYCHOMYCOSIS 01/17/2008 110.1 ONYCHOMYCOSIS 01/17/2008 MARIA GUADALUPE RETAIL FINANCIAL ANALYST, TON S 110.1 ONYCHOMYCOSIS 01/17/2008 MARJORIE STRONG APRN 110.1 ONYCHOMYCOSIS 01/17/2008 110.1 ONYCHOMYCOSIS 01/17/2008 110.1 ONYCHOMYCOSIS 01/17/2008 110.1 ONYCHOMYCOSIS 01/17/2008 MARIA GUADALUPE RETAIL FINANCIAL ANALYST, TON S 110.1 ONYCHOMYCOSIS 01/17/2008 MARIA GUADALUPE RETAIL FINANCIAL ANALYST, TON S 110.1 ONYCHOMYCOSIS 01/17/2008 ISAIAS VALENZUELA MD 110.1 ONYCHOMYCOSIS 01/17/2008 MARIA GUADALUPE RETAIL FINANCIAL ANALYST, TON S 110.1 ONYCHOMYCOSIS 01/17/2008 MARIA GUADALUPE RETAIL FINANCIAL ANALYST, TON S 110.1 ONYCHOMYCOSIS 01/17/2008 MARIA GUADALUPE RETAIL FINANCIAL ANALYST, TON S 110.1 ONYCHOMYCOSIS 01/17/2008 MARIA GUADALUPE RETAIL FINANCIAL ANALYST, TON S 110.1 ONYCHOMYCOSIS 01/17/2008 MARIA GUADALUPE RETAIL FINANCIAL ANALYST, TON S 110.1 ONYCHOMYCOSIS 01/17/2008 CATHERINE PERALES APRN 110.1 ONYCHOMYCOSIS 01/17/2008 MARIA GUADALUPE RETAIL FINANCIAL ANALYST, TON S 110.1 ONYCHOMYCOSIS 01/17/2008 MARIA GUADALUPE RETAIL FINANCIAL ANALYST, TON S 110.1 ONYCHOMYCOSIS 01/17/2008 MARIA GUADALUPE RETAIL FINANCIAL ANALYST, TON S 110.1 ONYCHOMYCOSIS 01/17/2008 MARIA GUADALUPE CHAUDHARIN, TON S 110.1 ONYCHOMYCOSIS 01/17/2008 VELASQUEZ KAUR PSYD L 110.1 ONYCHOMYCOSIS 01/17/2008 JEWELS ROMANO DO 110.1 ONYCHOMYCOSIS 01/17/2008 VELASQUEZ KAUR PSYD L 110.1 ONYCHOMYCOSIS 01/17/2008 SYMONE POST APRN 110.1 ONYCHOMYCOSIS 01/17/2008 RICHARD RETAIL FINANCIAL ANALYST, JEWELS 110.1 ONYCHOMYCOSIS 01/17/2008 RICHARD RETAIL FINANCIAL ANALYST, JEWELS 110.1 ONYCHOMYCOSIS 01/17/2008 RICHARD RETAIL FINANCIAL ANALYST, JEWELS 110.1 ONYCHOMYCOSIS 01/21/2008 JEWELS ROMANO DO [facility] MEDICAL RECORDS 01/21/2008 [facility] MEDICAL RECORDS 01/21/2008 [facility] MEDICAL RECORDS 01/21/2008 MARIA GUADALUPE VAUGHN, TON S [facility] Medical Records 01/21/2008 MARJORIE STRONG APRN [facility] Medical Records 01/21/2008 [facility] Medical Records 01/21/2008 [facility] Medical Records 01/21/2008 [facility] Medical Records 01/21/2008 MARIA GUADALUPE RETAIL FINANCIAL ANALYST, TON S [facility] Medical Records 01/21/2008 MARIA GUADALUPE RETAIL FINANCIAL ANALYST, TON S [facility] Medical Records 01/21/2008 BIANCA SHAH, ISAIAS [facility] Medical Records 01/21/2008 MARIA GUADALUPE RETAIL FINANCIAL ANALYST, TON S [facility] Medical Records 01/21/2008 MARIA GUADALUPE RETAIL FINANCIAL ANALYST, TON S [facility] Medical Records 01/21/2008 MARIA GUADALUPE RETAIL FINANCIAL ANALYST, TON S [facility] Medical Records 01/21/2008 MARIA GUADALUPE RETAIL FINANCIAL ANALYST, TON S [facility] Medical Records 01/21/2008 MARIA GUADALUPE CHAUDHARIN, TON S [facility] Medical Records 01/21/2008 CATHERINE PERALES APRN [facility] Medical Records 01/21/2008 MARIA GUADALUPE RETAIL FINANCIAL ANALYST, TON S [facility] Medical Records 01/21/2008 MARIA GUADALUPE RETAIL FINANCIAL ANALYST, TON S [facility] Medical Records 01/21/2008 MARIA GUADALUPE RETAIL FINANCIAL ANALYST, TON S [facility] Medical Records 01/21/2008 MARIA GUADALUPE RETAIL FINANCIAL ANALYST, TON S [facility] Medical Records 01/21/2008 VELASQUEZ KAUR PSYD [facility] Medical Records 01/21/2008 JEWELS ROMANO DO [facility] Medical Records 01/21/2008 VELASQUEZ KAUR PSYD [facility] Medical Records 01/21/2008 SYMONE POST APRN [facility] Medical Records 01/21/2008 RICHARD RETAIL FINANCIAL ANALYST, JEWELS [facility] Medical Records 01/21/2008 RICHARD RETAIL FINANCIAL ANALYST, JEWELS [facility] Medical Records 01/21/2008 RICHARD RETAIL FINANCIAL ANALYST, JEWELS [facility] Medical Records 02/10/2008 JEWELS ROMANO [...] APRNA S 847.9 Sprain/strain Back Unspec 02/10/2008 BRITENY LERMA APRNA S 847.9 Sprain/strain Back Unspec [...] PSYD 847.9 Sprain/strain Back Unspec 02/10/2008 POST RETAIL FINANCIAL ANALYST, SYMONE D 847.9 Sprain/strain Back Unspec 02/10/2008 RICHARD RETAIL FINANCIAL ANALYST, JEWELS 847.9 Sprain/strain Back Unspec 02/10/2008 RICHARD RETAIL FINANCIAL ANALYST, JEWELS 847.9 Sprain/strain Back Unspec 02/10/2008 RICHARD RETAIL FINANCIAL ANALYST, JEWELS 847.9 Sprain/strain Back Unspec 02/24/2008 JEWELS ROMANO DO 466.0 BRONCHITIS, ACUTE 02/24/2008 466.0 BRONCHITIS, ACUTE 02/24/2008 466.0 BRONCHITIS, ACUTE 02/24/2008 MARIA GUADALUPE RETAIL FINANCIAL ANALYST, TON S 466.0 Bronchitis, Acute 02/24/2008 TAE RETAIL FINANCIAL ANALYSTMARJORIE Ramos 466.0 Bronchitis, Acute 02/24/2008 466.0 Bronchitis, Acute 02/24/2008 466.0 Bronchitis, Acute 02/24/2008 466.0 Bronchitis, Acute 02/24/2008 MARIA GUADALUPE RETAIL FINANCIAL ANALYST, TON S 466.0 Bronchitis, Acute 02/24/2008 MARIA GUADALUPE RETAIL FINANCIAL ANALYST, TON S 466.0 Bronchitis, Acute 02/24/2008 BIANCA SHAH, ISAIAS 466.0 Bronchitis, Acute 02/24/2008 MARIA GUADALUPE RETAIL FINANCIAL ANALYST, TON S 466.0 Bronchitis, Acute 02/24/2008 MARIA GUADALUPE RETAIL FINANCIAL ANALYST, TON S 466.0 Bronchitis, Acute 02/24/2008 MARIA GUADALUPE RETAIL FINANCIAL ANALYST, TON S 466.0 Bronchitis, Acute 02/24/2008 MARIA GUADALUPE RETAIL FINANCIAL ANALYST, TON S 466.0 Bronchitis, Acute 02/24/2008 MARIA GUADALUPE RETAIL FINANCIAL ANALYST, TON S 466.0 Bronchitis, Acute 02/24/2008 CATHERINE PERALES APRN 466.0 Bronchitis, Acute 02/24/2008 MARIA GUADALUPE RETAIL FINANCIAL ANALYST, TON S 466.0 Bronchitis, Acute 02/24/2008 MARIA GUADALUPE RETAIL FINANCIAL ANALYST, TON S 466.0 Bronchitis, Acute 02/24/2008 MARIA GUADALUPE RETAIL FINANCIAL ANALYST, TON S 466.0 Bronchitis, Acute 02/24/2008 MARIA GUADALUPE RETAIL FINANCIAL ANALYST, TON S 466.0 Bronchitis, Acute 02/24/2008 VELASQUEZ KAUR PSYD L 466.0 Bronchitis, Acute 02/24/2008 JEWELS ROMANO DO 466.0 Bronchitis, Acute 02/24/2008 MCCLEEARY PSYD, GERONIMO L 466.0 Bronchitis, Acute 02/24/2008 SEJAL RETAIL FINANCIAL ANALYST, SYMONE Waldrop 466.0 Bronchitis, Acute 02/24/2008 RICHARD RETAIL FINANCIAL ANALYST, JEWELS 466.0 Bronchitis, Acute 02/24/2008 RICHARD RETAIL FINANCIAL ANALYST, JEWELS 466.0 Bronchitis, Acute 02/24/2008 RICHARD RETAIL FINANCIAL ANALYST, JEWELS 466.0 Bronchitis, Acute 04/04/2008 ROMANO DO, JEWELS K 133.0 SCABIES 04/04/2008 133.0 SCABIES 04/04/2008 133.0 SCABIES 04/04/2008 MARIA GUADALUPE RETAIL FINANCIAL ANALYST, TON S 133.0 Scabies 04/04/2008 TAE RETAIL FINANCIAL ANALYSTMARJORIE Ramos 133.0 Scabies 04/04/2008 133.0 Scabies 04/04/2008 133.0 Scabies 04/04/2008 133.0 Scabies 04/04/2008 MARIA GUADALUPE RETAIL FINANCIAL ANALYST, TON S 133.0 Scabies 04/04/2008 MARIA GUADALUPE RETAIL FINANCIAL ANALYST, TON S 133.0 Scabies 04/04/2008 ISAIAS VALENZUELA MD 133.0 Scabies 04/04/2008 MARIA GUADALUPE RETAIL FINANCIAL ANALYST, TON S 133.0 Scabies 04/04/2008 MARIA GUADALUPE RETAIL FINANCIAL ANALYST, TON S 133.0 Scabies 04/04/2008 MARIA GUADALUPE RETAIL FINANCIAL ANALYST, TON S 133.0 Scabies 04/04/2008 MARIA GUADALUPE RETAIL FINANCIAL ANALYST, TON S 133.0 Scabies 04/04/2008 MARIA GUADALUPE RETAIL FINANCIAL ANALYST, TON S 133.0 Scabies 04/04/2008 CATHERINE PERALES APRN 133.0 Scabies 04/04/2008 MARIA GUADALUPE RETAIL FINANCIAL ANALYST, TON S 133.0 Scabies 04/04/2008 MARIA GUADALUPE RETAIL FINANCIAL ANALYST, TON S 133.0 Scabies 04/04/2008 MARIA GUADALUPE RETAIL FINANCIAL ANALYST, TON S 133.0 Scabies 04/04/2008 MARIA GUADALUPE RETAIL FINANCIAL ANALYST, TON S 133.0 Scabies 04/04/2008 VELASQUEZ KAUR PSYD L 133.0 Scabies 04/04/2008 JEWELS ROMANO DO K 133.0 Scabies 04/04/2008 VELASQUEZ KAUR PSYD L 133.0 Scabies 04/04/2008 POST RETAIL FINANCIAL ANALYST, SYMONE Waldrop 133.0 Scabies 04/04/2008 RICHARD RETAIL FINANCIAL ANALYST, JEWELS 133.0 Scabies 04/04/2008 RICHARD RETAIL FINANCIAL ANALYST, JEWELS 133.0 Scabies 04/04/2008 RICHARD RETAIL FINANCIAL ANALYST, JEWELS 133.0 Scabies 05/09/2008 JUAN ANTONIO OTTO, JEWELS K 785.6 LYMPH NODES ENLARGEMENT 05/09/2008 785.6 LYMPH NODES ENLARGEMENT 05/09/2008 785.6 LYMPH NODES ENLARGEMENT 05/09/2008 MARIA GUADALUPE RETAIL FINANCIAL ANALYST, TON S 785.6 Lymph Nodes Enlargement 05/09/2008 TAE RETAIL FINANCIAL ANALYSTMARJORIE 785.6 Lymph Nodes Enlargement 05/09/2008 785.6 Lymph Nodes Enlargement 05/09/2008 785.6 Lymph Nodes Enlargement 05/09/2008 785.6 Lymph Nodes Enlargement 05/09/2008 MARIA GUADALUPE RETAIL FINANCIAL ANALYST, TON S 785.6 Lymph Nodes Enlargement 05/09/2008 MARIA GUADALUPE RETAIL FINANCIAL ANALYST, TON S 785.6 Lymph Nodes Enlargement 05/09/2008 ISAIAS VALENZUELA MD 785.6 Lymph Nodes Enlargement 05/09/2008 MARIA GUADALUPE RETAIL FINANCIAL ANALYST, TON S 785.6 Lymph Nodes Enlargement 05/09/2008 MARIA GUADALUPE RETAIL FINANCIAL ANALYST, TON S 785.6 Lymph Nodes Enlargement 05/09/2008 MARIA GUADALUPE RETAIL FINANCIAL ANALYST, TON S 785.6 Lymph Nodes Enlargement 05/09/2008 MARIA GUADALUPE RETAIL FINANCIAL ANALYST, TON S 785.6 Lymph Nodes Enlargement 05/09/2008 MARIA GUADALUPE RETAIL FINANCIAL ANALYST, TON S 785.6 Lymph Nodes Enlargement 05/09/2008 DIAZ RETAIL FINANCIAL ANALYST, CATHERINE Walker 785.6 Lymph Nodes Enlargement 05/09/2008 MARIA GUADALUPE RETAIL FINANCIAL ANALYST, TON S 785.6 Lymph Nodes Enlargement 05/09/2008 MARIA GUADALUPE RETAIL FINANCIAL ANALYST, TON S 785.6 Lymph Nodes Enlargement 05/09/2008 MARIA GUADALUPE RETAIL FINANCIAL ANALYST, TON S 785.6 Lymph Nodes Enlargement 05/09/2008 MARIA GUADALUPE RETAIL FINANCIAL ANALYST, TON S 785.6 Lymph Nodes Enlargement 05/09/2008 VELASQUEZ KAUR PSYD L 785.6 Lymph Nodes Enlargement 05/09/2008 ROMANO DOSACHAA K 785.6 Lymph Nodes Enlargement 05/09/2008 VELASQUEZ KAUR PSYD L 785.6 Lymph Nodes Enlargement 05/09/2008 SYMONE POST APRN 785.6 Lymph Nodes Enlargement 05/09/2008 RICHARD RETAIL FINANCIAL ANALYST, JEWELS 785.6 Lymph Nodes Enlargement 05/09/2008 RICHARD RETAIL FINANCIAL ANALYST, JEWELS 785.6 Lymph Nodes Enlargement 05/09/2008 RICHARD RETAIL FINANCIAL ANALYST, JEWELS 785.6 Lymph Nodes Enlargement 08/07/2008 ROMANO [...] Infection 08/07/2008 696.1 PSORIASIS 08/07/2008 MARIA GUADALUPE RETAIL FINANCIAL ANALYST, TON S 278.02 Overweight 08/07/2008 MARIA GUADALUPE RETAIL FINANCIAL ANALYST, TON S 590.9 Infection Of Kidney 08/07/2008 MARIA GUADALUPE RETAIL FINANCIAL ANALYST, TON S 599.0 Urinary Tract Infection 08/07/2008 MARIA GUADALUPE RETAIL FINANCIAL ANALYST, TON S 696.1 PSORIASIS 08/07/2008 MARIA GUADALUPE RETAIL FINANCIAL ANALYST, TON S 278.02 Overweight 08/07/2008 MARIA GUADALUPE RETAIL FINANCIAL ANALYST, TON S 590.9 Infection Of Kidney 08/07/2008 MARIA GUADALUPE RETAIL FINANCIAL ANALYST, TON S 599.0 Urinary Tract Infection 08/07/2008 MARIA GUADALUPE RETAIL FINANCIAL ANALYST, TON S 696.1 PSORIASIS 08/07/2008 ISAIAS VALENZUELA MD 278.02 Overweight 08/07/2008 ISAIAS VALENZUELA MD 590.9 Infection Of Kidney 08/07/2008 ISAIAS VALENZUELA MD 599.0 Urinary Tract Infection 08/07/2008 ISAIAS VALENZUELA MD 696.1 PSORIASIS 08/07/2008 MARIA GUADALUPE RETAIL FINANCIAL ANALYST, TON S 278.02 Overweight 08/07/2008 MARIA UGADALUPE RETAIL FINANCIAL ANALYST, TON S 590.9 Infection Of Kidney 08/07/2008 MARIA GUADALUPE RETAIL FINANCIAL ANALYST, TON S 599.0 Urinary Tract Infection 08/07/2008 MARIA GUADALUPE RETAIL FINANCIAL ANALYST, TON S 696.1 PSORIASIS 08/07/2008 MARIA GUADALUPE RETAIL FINANCIAL ANALYST, TON S 278.02 Overweight 08/07/2008 MARIA GUADALUPE RETAIL FINANCIAL ANALYST, TON S 590.9 Infection Of Kidney 08/07/2008 MARIA GUADALUPE RETAIL FINANCIAL ANALYST, TON S 599.0 Urinary Tract Infection 08/07/2008 MARIA GUADALUPE RETAIL FINANCIAL ANALYST, TON S 696.1 PSORIASIS 08/07/2008 MARIA GUADALUPE RETAIL FINANCIAL ANALYST, TON S 278.02 Overweight 08/07/2008 MARIA GUADALUPE RETAIL FINANCIAL ANALYST, TON S 590.9 Infection Of Kidney 08/07/2008 MARIA GUADALUPE RETAIL FINANCIAL ANALYST, TON S 599.0 Urinary Tract Infection 08/07/2008 MARIA GUADALUPE RETAIL FINANCIAL ANALYST, TON S 696.1 PSORIASIS 08/07/2008 MARIA GUADALUPE RETAIL FINANCIAL ANALYST, TON S 278.02 Overweight 08/07/2008 MARIA GUADALUPE RETAIL FINANCIAL ANALYST, TON S 590.9 Infection Of Kidney 08/07/2008 MARIA GUADALUPE RETAIL FINANCIAL ANALYST, TON S 599.0 Urinary Tract Infection 08/07/2008 MARIA GUADALUPE RETAIL FINANCIAL ANALYST, TON S 696.1 PSORIASIS 08/07/2008 MARIA GUADALUPE RETAIL FINANCIAL ANALYST, TON S 278.02 Overweight 08/07/2008 MARIA GUADALUPE RETAIL FINANCIAL ANALYST, TON S 590.9 Infection Of Kidney 08/07/2008 MARIA GUADALUPE RETAIL FINANCIAL ANALYST, TON S 599.0 Urinary Tract Infection 08/07/2008 MARIA GUADALUPE RETAIL FINANCIAL ANALYST, TON S 696.1 PSORIASIS 08/07/2008 DIAZ RETAIL FINANCIAL ANALYST, CATHERINE T 278.02 Overweight 08/07/2008 DIAZ RETAIL FINANCIAL ANALYST, CATHERINE T 590.9 Infection Of Kidney 08/07/2008 DIAZ RETAIL FINANCIAL ANALYST, CATHERINE T 599.0 Urinary Tract Infection 08/07/2008 DIAZ RETAIL FINANCIAL ANALYST, CATHERINE T 696.1 PSORIASIS 08/07/2008 MARIA GUADALUPE RETAIL FINANCIAL ANALYST, TON S 278.02 Overweight 08/07/2008 MARIA GUADALUPE RETAIL FINANCIAL ANALYST, TON S 590.9 Infection Of Kidney 08/07/2008 MARIA GUADALUPE RETAIL FINANCIAL ANALYST, TON S 599.0 Urinary Tract Infection 08/07/2008 MARIA GUADALUPE RETAIL FINANCIAL ANALYST, TON S 696.1 PSORIASIS 08/07/2008 MARIA GUADALUPE RETAIL FINANCIAL ANALYST, TON S 278.02 Overweight 08/07/2008 MARIA GUADALUPE RETAIL FINANCIAL ANALYST, TON S 590.9 Infection Of Kidney 08/07/2008 MARIA GUADALUPE RETAIL FINANCIAL ANALYST, TON S 599.0 Urinary Tract Infection 08/07/2008 MARIA GUADALUPE RETAIL FINANCIAL ANALYST, TON S 696.1 PSORIASIS 08/07/2008 MARIA GUADALUPE RETAIL FINANCIAL ANALYST, TON S 278.02 Overweight 08/07/2008 MARIA GUADALUPE RETAIL FINANCIAL ANALYST, TON S 590.9 Infection Of Kidney 08/07/2008 MARIA GUADALUPE RETAIL FINANCIAL ANALYST, TON S 599.0 Urinary Tract Infection 08/07/2008 MARIA GUADALUPE RETAIL FINANCIAL ANALYST, TON S 696.1 PSORIASIS 08/07/2008 MARIA GUADALUPE RETAIL FINANCIAL ANALYST, TON S 278.02 Overweight 08/07/2008 MARIA GUADALUPE RETAIL FINANCIAL ANALYST, TON S 590.9 Infection Of Kidney 08/07/2008 MARIA GUADALUPE RETAIL FINANCIAL ANALYST, TON S 599.0 Urinary Tract Infection 08/07/2008 MARIA GUADALUPE RETAIL FINANCIAL ANALYST, TON S 696.1 PSORIASIS 08/07/2008 VELASQUEZ KAUR [...] SYMONE POST APRN 696.1 PSORIASIS 08/07/2008 RICHARD RETAIL FINANCIAL ANALYST, JEWELS 278.02 Overweight 08/07/2008 RICHARD RETAIL FINANCIAL ANALYST JEWELS 590.9 Infection Of Kidney 08/07/2008 RICHARD RETAIL FINANCIAL ANALYST JEWELS 599.0 Urinary Tract Infection 08/07/2008 RICHARD RETAIL FINANCIAL ANALYST JEWELS 696.1 PSORIASIS 08/07/2008 RICHARD RETAIL FINANCIAL ANALYST, JEWELS 278.02 Overweight 08/07/2008 RICHARD RETAIL FINANCIAL ANALYST JEWELS 590.9 Infection Of Kidney 08/07/2008 RICHARD RETAIL FINANCIAL ANALYST, JEWELS 599.0 Urinary Tract Infection 08/07/2008 RICHARD RETAIL FINANCIAL ANALYST, JEWELS 696.1 PSORIASIS 08/07/2008 RICHARD RETAIL FINANCIAL ANALYST, JEWELS 278.02 Overweight 08/07/2008 RICHARD RETAIL FINANCIAL ANALYST, JEWELS 590.9 Infection Of Kidney 08/07/2008 RICHARD RETAIL FINANCIAL ANALYST, JEWELS 599.0 Urinary Tract Infection 08/07/2008 RICHARD RETAIL FINANCIAL ANALYST, JEWELS 696.1 PSORIASIS 08/10/2008 JUAN ANTONIO DOJEWELS K 784.0 HEADACHE 08/10/2008 784.0 HEADACHE 08/10/2008 784.0 HEADACHE 08/10/2008 MARIA GUADALUPE RETAIL FINANCIAL ANALYST, TON S 784.0 Headache 08/10/2008 MARJORIE STRONG APRN 784.0 Headache 08/10/2008 784.0 Headache 08/10/2008 784.0 Headache 08/10/2008 784.0 Headache 08/10/2008 MARIA GUADALUPE RETAIL FINANCIAL ANALYST, TON S 784.0 Headache 08/10/2008 MARIA GUADALUPE RETAIL FINANCIAL ANALYST, TON S 784.0 Headache 08/10/2008 ISAIAS VALENZUELA MD 784.0 Headache 08/10/2008 MARIA GUADALUPE RETAIL FINANCIAL ANALYST, TON S 784.0 Headache 08/10/2008 MARIA GUADALUPE RETAIL FINANCIAL ANALYST, TON S 784.0 Headache 08/10/2008 MARIA GUADALUEP RETAIL FINANCIAL ANALYST, TON S 784.0 Headache 08/10/2008 MARIA GUADALUPE RETAIL FINANCIAL ANALYST, TON S 784.0 Headache 08/10/2008 MARIA GUADALUPE RETAIL FINANCIAL ANALYST, TON S 784.0 Headache 08/10/2008 DIAZ RETAIL FINANCIAL ANALYSTCATHERINE Ramos 784.0 Headache 08/10/2008 MARIA GUADALUPE RETAIL FINANCIAL ANALYST, TON S 784.0 Headache 08/10/2008 MARIA GUADALUPE RETAIL FINANCIAL ANALYST, TON S 784.0 Headache 08/10/2008 MARIA GUADALUPE RETAIL FINANCIAL ANALYST, TON S 784.0 Headache 08/10/2008 MARIA GUADALUPE RETAIL FINANCIAL ANALYST, TON S 784.0 Headache 08/10/2008 VELASQUEZ KAUR PSYD 784.0 Headache 08/10/2008 JEWELS ROMNAO DO K 784.0 Headache 08/10/2008 VELASQUEZ KAUR PSYD 784.0 Headache 08/10/2008 POST RETAIL FINANCIAL ANALYSTSYMONE Ramos 784.0 Headache 08/10/2008 RICHARD RETAIL FINANCIAL ANALYST, JEWELS 784.0 Headache 08/10/2008 RICHARD RETAIL FINANCIAL ANALYST, JEWELS 784.0 Headache 08/10/2008 RICHARD RETAIL FINANCIAL ANALYST, JEWELS 784.0 Headache 08/30/2008 ROMANO DO, JEWELS K 788.1 DYSURIA 08/30/2008 788.1 DYSURIA 08/30/2008 788.1 DYSURIA 08/30/2008 MARIA GUADALUPE RETAIL FINANCIAL ANALYST, TON S 788.1 Dysuria 08/30/2008 MARJORIE STRONG APRN 788.1 Dysuria 08/30/2008 788.1 Dysuria 08/30/2008 788.1 Dysuria 08/30/2008 788.1 Dysuria 08/30/2008 MARIA GUADALUPE RETAIL FINANCIAL ANALYST, TON S 788.1 Dysuria 08/30/2008 MARIA GUADALUPE RETAIL FINANCIAL ANALYST, TON S 788.1 Dysuria 08/30/2008 ISAIAS VALENZUELA MD 788.1 Dysuria 08/30/2008 MARIA GUADALUPE RETAIL FINANCIAL ANALYST, TON S 788.1 Dysuria 08/30/2008 MARIA GUADALUPE RETAIL FINANCIAL ANALYST, TON S 788.1 Dysuria 08/30/2008 MARIA GUADALUPE RETAIL FINANCIAL ANALYST, TON S 788.1 Dysuria 08/30/2008 MARIA GUADALUPE RETAIL FINANCIAL ANALYST, TON S 788.1 Dysuria 08/30/2008 MARIA GUADALUPE RETAIL FINANCIAL ANALYST, TON S 788.1 Dysuria 08/30/2008 CATHERINE PERALES APRN 788.1 Dysuria 08/30/2008 MARIA GUADALUPE RETAIL FINANCIAL ANALYST, TON S 788.1 Dysuria 08/30/2008 MARIA GUADALUPE RETAIL FINANCIAL ANALYST, TON S 788.1 Dysuria 08/30/2008 MARIA GUADALUPE RETAIL FINANCIAL ANALYST, TON S 788.1 Dysuria 08/30/2008 MARIA GUADALUPE RETAIL FINANCIAL ANALYST, TON S 788.1 Dysuria 08/30/2008 VELASQUEZ KAUR PSYD L 788.1 Dysuria 08/30/2008 ROMANO DO, JEWELS K 788.1 Dysuria 08/30/2008 VELASQUEZ KAUR PSYD 788.1 Dysuria 08/30/2008 SYMONE POST APRN 788.1 Dysuria 08/30/2008 RICHARD RETAIL FINANCIAL ANALYST, JEWELS 788.1 Dysuria 08/30/2008 RICHARD RETAIL FINANCIAL ANALYST, JEWELS 788.1 Dysuria 08/30/2008 RICHARD RETAIL FINANCIAL ANALYST, JEWELS 788.1 Dysuria 09/18/2008 JEWELS ROMANO DO [...] Abdominal Pain Unspecified Site 09/18/2008 MARIA GUADALUPE RETAIL FINANCIAL ANALYST, TON S 789.00 Abdominal Pain Unspecified Site 09/18/2008 MARIA GUADALUPE RETAIL FINANCIAL ANALYST, TON S 789.00 Abdominal Pain Unspecified Site 09/18/2008 MARIA GUADALUPE CHAUDHARIN, TON S 789.00 Abdominal Pain Unspecified Site 09/18/2008 MARIA GUADALUPE RETAIL FINANCIAL ANALYST, TON S 789.00 Abdominal Pain Unspecified Site 09/18/2008 MARIA GUADALUPE CHAUDHARIN, TON S 789.00 Abdominal Pain Unspecified Site 09/18/2008 CATHERINE PERALES APRN 789.00 Abdominal Pain Unspecified Site 09/18/2008 MARIA GUADALUPE RETAIL FINANCIAL ANALYST, TON S 789.00 Abdominal Pain Unspecified Site [...] 789.00 Abdominal Pain Unspecified Site 09/18/2008 RICHARD RETAIL FINANCIAL ANALYST, JEWELS 789.00 Abdominal Pain Unspecified Site 09/18/2008 RICHARD RETAIL FINANCIAL ANALYST, JEWELS 789.00 Abdominal Pain Unspecified Site 09/18/2008 RICHARD RETAIL FINANCIAL ANALYST, JEWELS 789.00 Abdominal Pain Unspecified Site 10/18/2008 [...] TON S 009.1 Gastroenteritis Infect 10/18/2008 MARIA GUADALUPE [...] POST APRN 009.1 Gastroenteritis Infect 10/18/2008 RICHARD RETAIL FINANCIAL ANALYST, JEWELS 009.1 Gastroenteritis Infect 10/18/2008 RICHARD RETAIL FINANCIAL ANALYST, JEWELS 009.1 Gastroenteritis Infect 10/18/2008 RICHARD RETAIL FINANCIAL ANALYST, JEWELS 009.1 Gastroenteritis Infect 10/20/2008 JEWELS ROMANO [...] APRN 008.62 Gastroenteritis Viral Adenovirus 10/20/2008 RICHARD RETAIL FINANCIAL ANALYST, JEWELS 008.62 Gastroenteritis Viral Adenovirus 10/20/2008 RICHARD RETAIL FINANCIAL ANALYST, JEWELS 008.62 Gastroenteritis Viral Adenovirus 10/20/2008 RICHARD RETAIL FINANCIAL ANALYST, JEWELS 008.62 Gastroenteritis Viral Adenovirus 05/08/2009 JEWELS [...] IN JOINT, MULTIPLE SITES 05/08/2009 MARIA GUADALUPE RETAIL FINANCIAL ANALYST, TON S 461.1 Acute Frontal Sinusitis 05/08/2009 MARIA GUADALUPE RETAIL FINANCIAL ANALYST, TON S 719.49 PAIN IN JOINT, MULTIPLE SITES 05/08/2009 ISAIAS VALENZUELA MD 461.1 Acute Frontal Sinusitis 05/08/2009 ISAIAS VALENZUELA MD 719.49 PAIN IN JOINT, MULTIPLE SITES 05/08/2009 MARIA GUADALUPE RETAIL FINANCIAL ANALYST, TON S 461.1 Acute Frontal Sinusitis 05/08/2009 MARIA GUADALUPE RETAIL FINANCIAL ANALYST, TON S 719.49 PAIN IN JOINT, MULTIPLE SITES 05/08/2009 MARIA GUADALUPE RETAIL FINANCIAL ANALYST, TON S 461.1 Acute Frontal Sinusitis 05/08/2009 MARIA GUADALUPE RETAIL FINANCIAL ANALYST, TON S 719.49 PAIN IN JOINT, MULTIPLE SITES 05/08/2009 MARIA GUADALUPE RETAIL FINANCIAL ANALYST, TON S 461.1 Acute Frontal Sinusitis 05/08/2009 MARIA GUADALUPE RETAIL FINANCIAL ANALYST, TON S 719.49 PAIN IN JOINT, MULTIPLE SITES 05/08/2009 MARIA GUADALUPE RETAIL FINANCIAL ANALYST, TON S 461.1 Acute Frontal Sinusitis 05/08/2009 MARIA GUADALUPE RETAIL FINANCIAL ANALYST, TON S 719.49 PAIN IN JOINT, MULTIPLE SITES 05/08/2009 MARIA GUADALUPE RETAIL FINANCIAL ANALYST, TON S 461.1 Acute Frontal Sinusitis 05/08/2009 MARIA GUADALUPE RETAIL FINANCIAL ANALYST, TON S 719.49 PAIN IN JOINT, MULTIPLE SITES 05/08/2009 DIAZ RETAIL FINANCIAL ANALYST, CATHERINE T 461.1 Acute Frontal Sinusitis 05/08/2009 DIAZ RETAIL FINANCIAL ANALYSTCATHERINE 719.49 PAIN IN JOINT, MULTIPLE SITES 05/08/2009 MARIA GUADALUPE RETAIL FINANCIAL ANALYST, TON S 461.1 Acute Frontal Sinusitis 05/08/2009 MARIA GUADALUPE RETAIL FINANCIAL ANALYST, TON S 719.49 PAIN IN JOINT, MULTIPLE SITES 05/08/2009 MARIA GUADALUPE RETAIL FINANCIAL ANALYST, TON S 461.1 Acute Frontal Sinusitis 05/08/2009 MARIA GUADALUPE RETAIL FINANCIAL ANALYST, TON S 719.49 PAIN IN JOINT, MULTIPLE SITES 05/08/2009 MARIA GUADALUPE RETAIL FINANCIAL ANALYST, TON S 461.1 Acute Frontal Sinusitis 05/08/2009 MARIA GUADALUPE RETAIL FINANCIAL ANALYST, TON S 719.49 PAIN IN JOINT, MULTIPLE [...] PAIN IN JOINT, MULTIPLE SITES 05/08/2009 RICHARD RETAIL FINANCIAL ANALYST, JEWELS 461.1 Acute Frontal Sinusitis 05/08/2009 RICHARD RETAIL FINANCIAL ANALYST, JEWELS 719.49 PAIN IN JOINT, MULTIPLE SITES 05/08/2009 RICHARD RETAIL FINANCIAL ANALYST, JEWELS 461.1 Acute Frontal Sinusitis 05/08/2009 RICHARD RETAIL FINANCIAL ANALYST, JEWELS 719.49 PAIN IN JOINT, MULTIPLE SITES 05/08/2009 RICHARD RETAIL FINANCIAL ANALYST, JEWELS 461.1 Acute Frontal Sinusitis 05/08/2009 RICHARD RETAIL FINANCIAL ANALYST, JEWELS 719.49 PAIN IN JOINT, MULTIPLE SITES [...] 465.9 Upper Respiratory Infection 05/24/2009 MARIA GUADALUPE RETAIL FINANCIAL ANALYST, TON S 465.9 Upper Respiratory Infection 05/24/2009 BIANCA SHAH, ISAIAS 465.9 Upper Respiratory Infection 05/24/2009 MARIA GUADALUPE RETAIL FINANCIAL ANALYST, TON S 465.9 Upper Respiratory Infection 05/24/2009 MARIA GUADALUPE RETAIL FINANCIAL ANALYST, TON S 465.9 Upper Respiratory Infection 05/24/2009 MARIA GUADALUPE RETAIL FINANCIAL ANALYST, TON S 465.9 Upper Respiratory Infection 05/24/2009 MARIA GUADALUPE RETAIL FINANCIAL ANALYST, TON S 465.9 Upper Respiratory Infection 05/24/2009 MARIA GUADALUPE RETAIL FINANCIAL ANALYST, TON S 465.9 Upper Respiratory Infection 05/24/2009 DIAZ RETAIL FINANCIAL ANALYST, CATHERINE T 465.9 Upper Respiratory Infection 05/24/2009 MARIA GUADALUPE RETAIL FINANCIAL ANALYST, TON S 465.9 Upper Respiratory Infection 05/24/2009 MARIA GUADALUPE RETAIL FINANCIAL ANALYST, TON S 465.9 Upper Respiratory Infection 05/24/2009 MARIA GUADALUPE RETAIL FINANCIAL ANALYST, TON S 465.9 Upper Respiratory Infection 05/24/2009 MARIA GUADALUPE RETAIL FINANCIAL ANALYST, TON S 465.9 Upper Respiratory Infection 05/24/2009 VELASQUEZ KAUR PSYD L 465.9 Upper Respiratory Infection 05/24/2009 JEWELS ROMANO DO 465.9 Upper Respiratory Infection 05/24/2009 VELASQUEZ KAUR PSYD L 465.9 Upper Respiratory Infection 05/24/2009 SYMONE POST APRN 465.9 Upper Respiratory Infection 05/24/2009 RICHARD RETAIL FINANCIAL ANALYST, JEWELS 465.9 Upper Respiratory Infection 05/24/2009 RICHARD RETAIL FINANCIAL ANALYST, JEWELS 465.9 Upper Respiratory Infection 05/24/2009 RICHARD RETAIL FINANCIAL ANALYST, JEWELS 465.9 Upper Respiratory Infection 06/01/2009 JEWELS [...] S 786.59 Other Chest Pain 06/01/2009 TAE RETAIL FINANCIAL ANALYSTMARJORIE M 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 OF DRUGS, TOBACCO USE DISORDER 06/01/2009 TAE VAUGHNMARJORIE M 401.1 HYPERTENSION, BENIGN ESSENTIAL 06/01/2009 STRONG RETAIL FINANCIAL ANALYST, MARJORIE M 786.59 Other Chest Pain 06/01/2009 [...] DRUGS, TOBACCO USE DISORDER 06/01/2009 MARIA GUADALUPE RETAIL FINANCIAL ANALYST, TON S 401.1 HYPERTENSION, BENIGN ESSENTIAL 06/01/2009 MARIA GUADALUPE RETAIL FINANCIAL ANALYST, TON S 786.59 Other Chest Pain 06/01/2009 MARIA GUADALUPE RETAIL FINANCIAL ANALYST, TON S 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 OF DRUGS, TOBACCO USE DISORDER 06/01/2009 MARIA GUADALUPE RETAIL FINANCIAL ANALYST, TON S 401.1 HYPERTENSION, BENIGN ESSENTIAL 06/01/2009 MARIA GUADALUPE RETAIL FINANCIAL ANALYST, TON S 786.59 Other Chest Pain 06/01/2009 MARIA GUADALUPE RETAIL FINANCIAL ANALYST, TON S 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 OF DRUGS, TOBACCO USE DISORDER 06/01/2009 MARIA GUADALUPE RETAIL FINANCIAL ANALYST, TON S 401.1 HYPERTENSION, BENIGN ESSENTIAL 06/01/2009 MARIA GUADALUPE RETAIL FINANCIAL ANALYST, TON S 786.59 Other Chest Pain 06/01/2009 MARIA GUADALUPE RETAIL FINANCIAL ANALYST, TON S 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 OF DRUGS, TOBACCO USE DISORDER 06/01/2009 MARIA GUADALUPE RETAIL FINANCIAL ANALYST, TON S 401.1 HYPERTENSION, BENIGN ESSENTIAL 06/01/2009 MARIA GUADALUPE RETAIL FINANCIAL ANALYST, TON S 786.59 Other Chest Pain 06/01/2009 MAIRA GUADALUPE RETAIL FINANCIAL ANALYST, TON S 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 OF DRUGS, TOBACCO USE DISORDER 06/01/2009 MARIA GUADALUPE RETAIL FINANCIAL ANALYST, TON S 401.1 HYPERTENSION, BENIGN ESSENTIAL 06/01/2009 MARIA GUADALUPE RETAIL FINANCIAL ANALYST, TON S 786.59 Other Chest Pain 06/01/2009 CATHERINE PERALES APRN T 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 OF DRUGS, TOBACCO USE DISORDER 06/01/2009 CATHERINE PERALES APRN T 401.1 HYPERTENSION, BENIGN ESSENTIAL 06/01/2009 CATHERINE PERALES APRN T 786.59 Other Chest Pain 06/01/2009 MARIA GUADALUPE RETAIL FINANCIAL ANALYST, TON S 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 OF DRUGS, TOBACCO USE DISORDER 06/01/2009 MARIA GUADALUPE RETAIL FINANCIAL ANALYST, TON S 401.1 HYPERTENSION, BENIGN ESSENTIAL 06/01/2009 MARIA GUADALUPE RETAIL FINANCIAL ANALYST, TON S 786.59 Other Chest Pain 06/01/2009 MARIA GUADALUPE RETAIL FINANCIAL ANALYST, TON S 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 OF DRUGS, TOBACCO USE DISORDER 06/01/2009 MARIA GUADALUPE RETAIL FINANCIAL ANALYST, TON S 401.1 HYPERTENSION, BENIGN ESSENTIAL 06/01/2009 MARIA GUADALUPE RETAIL FINANCIAL ANALYST, TON S 786.59 Other Chest Pain 06/01/2009 MARIA GUADALUPE RETAIL FINANCIAL ANALYST, TON S 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 OF DRUGS, TOBACCO USE DISORDER 06/01/2009 MARIA GUADALUPE RETAIL FINANCIAL ANALYST, TON S 401.1 HYPERTENSION, BENIGN ESSENTIAL 06/01/2009 MARIA GUADALUPE RETAIL FINANCIAL ANALYST, TON S 786.59 Other Chest Pain 06/01/2009 MARIA GUADALUPE RETAIL FINANCIAL ANALYST, TON S 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 OF DRUGS, TOBACCO USE DISORDER 06/01/2009 MARIA GUADALUPE RETAIL FINANCIAL ANALYST, TON S 401.1 HYPERTENSION, BENIGN ESSENTIAL 06/01/2009 MARIA GUADALUPE RETAIL FINANCIAL ANALYST, TON S 786.59 Other Chest Pain 06/01/2009 VELASQUEZ KAUR PSYD L 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 OF DRUGS, TOBACCO USE DISORDER 06/01/2009 VELASQUEZ KAUR PSYD L 401.1 HYPERTENSION, BENIGN ESSENTIAL 06/01/2009 VELASQUEZ KAUR PSYD L 786.59 Other Chest Pain 06/01/2009 ROMANO DO JEWLES K 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 OF DRUGS, TOBACCO [...] OF DRUGS, TOBACCO USE DISORDER 06/01/2009 RICHARD RETAIL FINANCIAL ANALYST, JEWELS 401.1 HYPERTENSION, BENIGN ESSENTIAL 06/01/2009 RICHARD RETAIL FINANCIAL ANALYST, JEWELS 786.59 Other Chest Pain 06/01/2009 RICHARD RETAIL FINANCIAL ANALYST, JEWELS 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 OF DRUGS, TOBACCO USE DISORDER 06/01/2009 RICHARD RETAIL FINANCIAL ANALYST, JEWELS 401.1 HYPERTENSION, BENIGN ESSENTIAL 06/01/2009 RICHARD RETAIL FINANCIAL ANALYST, JEWELS 786.59 Other Chest Pain 06/18/2009 JEWELS [...] MD 787.02 Nausea Alone 06/18/2009 MARIA GUADALUPE RETAIL FINANCIAL ANALYST, TON S 787.02 Nausea Alone 06/18/2009 MARIA GUADALUPE RETAIL FINANCIAL ANALYST, TON S 787.02 Nausea Alone 06/18/2009 MARIA GUADALUPE VAUGHN, TON S 787.02 Nausea Alone 06/18/2009 MARIA GUADALUPE VAUGHN, TON S 787.02 Nausea Alone 06/18/2009 MARIA GUADALUPEGARY VAUGHN, TON S 787.02 Nausea Alone 06/18/2009 CATHERINE PERALES APRN 787.02 Nausea Alone 06/18/2009 MARIA GUADALUPE RETAIL FINANCIAL ANALYST, TON S 787.02 Nausea Alone 06/18/2009 MARIA GUADALUPE RETAIL FINANCIAL ANALYST, TON S 787.02 Nausea Alone 06/18/2009 MARIA GUADALUPE RETAIL FINANCIAL ANALYST, TON S 787.02 Nausea Alone 06/18/2009 MARIA GUADALUPE VAUGHN, TON S 787.02 Nausea Alone 06/18/2009 VELASQUEZ KAUR PSYD 787.02 Nausea Alone 06/18/2009 ROMANO DO, JEWELS Bowen 787.02 Nausea Alone 06/18/2009 NATASHA PERALES, VELASQUEZ WILSON L 787.02 Nausea Alone 06/18/2009 SEJAL RETAIL FINANCIAL ANALYSTSYMONE Ramos 787.02 Nausea Alone 06/18/2009 RICHARD RETAIL FINANCIAL ANALYST, JEWELS 787.02 Nausea Alone 06/18/2009 RICHARD RETAIL FINANCIAL ANALYST, JEWELS 787.02 Nausea Alone 06/18/2009 RICHARD RETAIL FINANCIAL ANALYST, JEWELS 787.02 Nausea Alone 07/25/2009 ROMANO DO, JEWELS Bowen 493.90 ASTHMA, UNSPECIFIED, UNSPECIFIED 07/25/2009 493.90 ASTHMA, UNSPECIFIED, UNSPECIFIED 07/25/2009 493.90 ASTHMA, UNSPECIFIED, UNSPECIFIED 07/25/2009 MARIA GUADALUPE RETAIL FINANCIAL ANALYST, TON S 493.90 ASTHMA, UNSPECIFIED, UNSPECIFIED 07/25/2009 MARJORIE STRONG APRN 493.90 ASTHMA, UNSPECIFIED, UNSPECIFIED 07/25/2009 493.90 ASTHMA, UNSPECIFIED, UNSPECIFIED 07/25/2009 493.90 ASTHMA, UNSPECIFIED, UNSPECIFIED 07/25/2009 493.90 ASTHMA, UNSPECIFIED, UNSPECIFIED 07/25/2009 MARIA GUADALUPE RETAIL FINANCIAL ANALYST, TON S 493.90 ASTHMA, UNSPECIFIED, UNSPECIFIED 07/25/2009 MARIA GUADALUPE RETAIL FINANCIAL ANALYST, TON S 493.90 ASTHMA, UNSPECIFIED, UNSPECIFIED 07/25/2009 BIANCA SHAH, ISAIAS 493.90 ASTHMA, UNSPECIFIED, UNSPECIFIED 07/25/2009 MARIA GUADALUPE RETAIL FINANCIAL ANALYST, TON S 493.90 ASTHMA, UNSPECIFIED, UNSPECIFIED 07/25/2009 MARIA GUADALUPE RETAIL FINANCIAL ANALYST, TON S 493.90 ASTHMA, UNSPECIFIED, UNSPECIFIED 07/25/2009 MARIA GUADALUPE RETAIL FINANCIAL ANALYST, TON S 493.90 ASTHMA, UNSPECIFIED, UNSPECIFIED 07/25/2009 MARIA GUADALUPE RETAIL FINANCIAL ANALYST, TON S 493.90 ASTHMA, UNSPECIFIED, UNSPECIFIED 07/25/2009 MARIA GUADALUPE RETAIL FINANCIAL ANALYST, TON S 493.90 ASTHMA, UNSPECIFIED, UNSPECIFIED 07/25/2009 CATHERINE PERALES APRN 493.90 ASTHMA, UNSPECIFIED, UNSPECIFIED 07/25/2009 MARIA GUADALUPE RETAIL FINANCIAL ANALYST, TON S 493.90 ASTHMA, UNSPECIFIED, UNSPECIFIED 07/25/2009 MARIA GUADALUPE RETAIL FINANCIAL ANALYST, TON S 493.90 ASTHMA, UNSPECIFIED, UNSPECIFIED 07/25/2009 MARIA GUADALUPE RETAIL FINANCIAL ANALYST, TON S 493.90 ASTHMA, UNSPECIFIED, UNSPECIFIED 07/25/2009 MARIA GUADALUPE RETAIL FINANCIAL ANALYST, TON S 493.90 ASTHMA, UNSPECIFIED, UNSPECIFIED 07/25/2009 VELASQUEZ KAUR PSYD 493.90 ASTHMA, UNSPECIFIED, UNSPECIFIED 07/25/2009 JEWELS ROMANO DO 493.90 ASTHMA, UNSPECIFIED, UNSPECIFIED 07/25/2009 VELASQUEZ KAUR PSYD 493.90 ASTHMA, UNSPECIFIED, UNSPECIFIED 07/25/2009 SEJAL RETAIL FINANCIAL ANALYSTSYMONE Ramos 493.90 ASTHMA, UNSPECIFIED, UNSPECIFIED 07/25/2009 IRCHARD RETAIL FINANCIAL ANALYST, JEWELS 493.90 ASTHMA, UNSPECIFIED, UNSPECIFIED 07/25/2009 RICHARD RETAIL FINANCIAL ANALYST, JEWELS 493.90 ASTHMA, UNSPECIFIED, UNSPECIFIED 07/25/2009 RICHARD RETAIL FINANCIAL ANALYST, JEWELS 493.90 ASTHMA, UNSPECIFIED, UNSPECIFIED 12/27/2009 JEWELS [...] FAM HX DIABETES MELLITUS 12/27/2009 MARIA GUADALUPE RETAIL FINANCIAL ANALYST, TON S 112.3 Candidiasis, Of Skin And Nails 12/27/2009 MARIA GUADALUPE RETAIL FINANCIAL ANALYST, TON S 780.79 fatigue 12/27/2009 MARIA GUADALUPE RETAIL FINANCIAL ANALYST, TON S V18.0 FAM HX DIABETES MELLITUS 12/27/2009 MARIA GUADALUPE RETAIL FINANCIAL ANALYST, TON S 112.3 Candidiasis, Of Skin And Nails 12/27/2009 MARIA GUADALUPE RETAIL FINANCIAL ANALYST, TON S 780.79 fatigue 12/27/2009 MARIA GUADALUPE RETAIL FINANCIAL ANALYST, TON S V18.0 FAM HX DIABETES MELLITUS 12/27/2009 ISAIAS VALENZUELA MD 112.3 Candidiasis, Of Skin And Nails 12/27/2009 ISAIAS VALENZUELA MD 780.79 fatigue 12/27/2009 ISAIAS VALENZUELA MD V18.0 FAM HX DIABETES MELLITUS 12/27/2009 MARIA GUADALUPE RETAIL FINANCIAL ANALYST, TON S 112.3 Candidiasis, Of Skin And Nails 12/27/2009 MARIA GUADALUPE RETAIL FINANCIAL ANALYST, TON S 780.79 fatigue 12/27/2009 MARIA GUADALUPE RETAIL FINANCIAL ANALYST, TON S V18.0 FAM HX DIABETES MELLITUS 12/27/2009 MARIA GUADALUPE RETAIL FINANCIAL ANALYST, TON S 112.3 Candidiasis, Of Skin And Nails 12/27/2009 MARIA GUADALUPE RETAIL FINANCIAL ANALYST, TON S 780.79 fatigue 12/27/2009 MARIA GUADALUPE RETAIL FINANCIAL ANALYST, TON S V18.0 FAM HX DIABETES MELLITUS 12/27/2009 MARIA GUADALUPE RETAIL FINANCIAL ANALYST, TON S 112.3 Candidiasis, Of Skin And Nails 12/27/2009 MARIA GUADALUPE RETAIL FINANCIAL ANALYST, TON S 780.79 FATIGUE 12/27/2009 MARIA GUADALUPE RETAIL FINANCIAL ANALYST, TON S V18.0 FAM HX DIABETES MELLITUS 12/27/2009 MARIA GUADALUPE RETAIL FINANCIAL ANALYST, TON S 112.3 Candidiasis, Of Skin And Nails 12/27/2009 MARIA GUADALUPE RETAIL FINANCIAL ANALYST, TON S 780.79 FATIGUE 12/27/2009 MARIA GUADALUPE RETAIL FINANCIAL ANALYST, TON S V18.0 FAM HX DIABETES MELLITUS 12/27/2009 MARIA GUADALUPE RETAIL FINANCIAL ANALYST, TON S 112.3 Candidiasis, Of Skin And Nails 12/27/2009 MARIA GUADALUPE RETAIL FINANCIAL ANALYST, TON S 780.79 FATIGUE 12/27/2009 MARIA GUADALUPE RETAIL FINANCIAL ANALYST, TON S V18.0 FAM HX DIABETES MELLITUS 12/27/2009 CATHERINE PERALES APRN T 112.3 Candidiasis, Of Skin And Nails 12/27/2009 DIAZ CHAUDHARINCATHERINE T 780.79 FATIGUE 12/27/2009 DIAZ CHAUDHARINCATHERINE T V18.0 FAM HX DIABETES MELLITUS 12/27/2009 MARIA GUADALUPE RETAIL FINANCIAL ANALYST, TON S 112.3 Candidiasis, Of Skin And Nails 12/27/2009 MARIA GUADALUPE RETAIL FINANCIAL ANALYST, TON S 780.79 FATIGUE 12/27/2009 MARIA GUADALUPE RETAIL FINANCIAL ANALYST, TON S V18.0 FAM HX DIABETES MELLITUS 12/27/2009 MARIA GUADALUPE RETAIL FINANCIAL ANALYST, TON S 112.3 Candidiasis, Of Skin And Nails 12/27/2009 MARIA GUADALUPE RETAIL FINANCIAL ANALYST, TON S 780.79 FATIGUE 12/27/2009 MARIA GUADALUPE RETAIL FINANCIAL ANALYST, TON S V18.0 FAM HX DIABETES MELLITUS 12/27/2009 MARIA GUADALUPE RETAIL FINANCIAL ANALYST, TON S 112.3 Candidiasis, Of Skin And Nails 12/27/2009 MARIA GUADALUPE RETAIL FINANCIAL ANALYST, TON S 780.79 FATIGUE 12/27/2009 MARIA GUADALUPE RETAIL FINANCIAL ANALYST, TON S V18.0 FAM HX DIABETES MELLITUS 12/27/2009 MARIA GUADALUPE RETAIL FINANCIAL ANALYST, TON S 112.3 Candidiasis, Of Skin And Nails 12/27/2009 MARIA GUADALUPE RETAIL FINANCIAL ANALYST, TON S 780.79 FATIGUE 12/27/2009 MARIA GUADALUPE RETAIL FINANCIAL ANALYST, TON S V18.0 FAM HX DIABETES MELLITUS 12/27/2009 VELASQUEZ KUAR PSYD 112.3 Candidiasis, Of Skin And Nails [...] V18.0 FAM HX DIABETES MELLITUS 12/27/2009 RICHARD RETAIL FINANCIAL ANALYST, JEWELS 112.3 Candidiasis, Of Skin And Nails 12/27/2009 RICHARD VAUGHN JEWELS 780.79 FATIGUE 12/27/2009 RICHARD RETAIL FINANCIAL ANALYST, JEWELS V18.0 FAM HX DIABETES MELLITUS 12/27/2009 RICHARD RETAIL FINANCIAL ANALYST, JEWELS 112.3 Candidiasis, Of Skin And Nails 12/27/2009 RICHARD RETAIL FINANCIAL ANALYST, JEWELS 780.79 FATIGUE 12/27/2009 RICHARD RETAIL FINANCIAL ANALYST, JEWELS V18.0 FAM HX DIABETES MELLITUS 12/27/2009 RICHARD RETAIL FINANCIAL ANALYST, JEWELS 112.3 Candidiasis, Of Skin And Nails 12/27/2009 RICHARD RETAIL FINANCIAL ANALYST, JEWELS 780.79 FATIGUE 12/27/2009 RICHARD RETAIL FINANCIAL ANALYST, JEWELS V18.0 FAM HX DIABETES MELLITUS 01/14/2010 JEWELS [...] DERMATITIS AND RELATED CONDITIONS 01/14/2010 MARIA GUADALUPE RETAIL FINANCIAL ANALYST, TON S 691.8 OTHER ATOPIC DERMATITIS AND RELATED CONDITIONS 01/14/2010 MARIA GUADALUPE RETAIL FINANCIAL ANALYST, TON S 691.8 OTHER ATOPIC DERMATITIS AND RELATED CONDITIONS 01/14/2010 ISAIAS VALENZUELA MD 691.8 OTHER ATOPIC DERMATITIS AND RELATED CONDITIONS 01/14/2010 MARIA GUADALUPE RETAIL FINANCIAL ANALYST, TON S 691.8 OTHER ATOPIC DERMATITIS AND RELATED CONDITIONS 01/14/2010 MARIA GUADALUPE RETAIL FINANCIAL ANALYST, TON S 691.8 OTHER ATOPIC DERMATITIS AND RELATED CONDITIONS 01/14/2010 MARIA GUADALUPE RETAIL FINANCIAL ANALYST, TON S 691.8 OTHER ATOPIC DERMATITIS AND RELATED CONDITIONS 01/14/2010 MARIA GUADALUPE RETAIL FINANCIAL ANALYST, TON S 691.8 OTHER ATOPIC DERMATITIS AND RELATED CONDITIONS 01/14/2010 MARIA GUADALUPE RETAIL FINANCIAL ANALYST, TON S 691.8 OTHER ATOPIC DERMATITIS AND RELATED CONDITIONS 01/14/2010 CATHERINE PERALES APRN 691.8 OTHER ATOPIC DERMATITIS AND RELATED CONDITIONS 01/14/2010 MARIA GUADALUPE RETAIL FINANCIAL ANALYST, TON S 691.8 OTHER ATOPIC DERMATITIS AND RELATED CONDITIONS 01/14/2010 MARIA GUADALUPE RETAIL FINANCIAL ANALYST, TON S 691.8 OTHER ATOPIC DERMATITIS AND RELATED CONDITIONS 01/14/2010 MARIA GUADALUPE RETAIL FINANCIAL ANALYST, TON S 691.8 OTHER ATOPIC DERMATITIS AND RELATED CONDITIONS 01/14/2010 MARIA GUADALUPE RETAIL FINANCIAL ANALYST, TON S 691.8 OTHER ATOPIC DERMATITIS AND [...] ATOPIC DERMATITIS AND RELATED CONDITIONS 01/14/2010 RICHARD RETAIL FINANCIAL ANALYST, JEWELS 691.8 OTHER ATOPIC DERMATITIS AND RELATED CONDITIONS 02/26/2010 JEWELS ROMANO DO 716.90 ARTHRITIS/ ARTHROPATHY, UNSPECIFIED 02/26/2010 716.90 ARTHRITIS/ ARTHROPATHY, UNSPECIFIED 02/26/2010 716.90 ARTHRITIS/ ARTHROPATHY, UNSPECIFIED 02/26/2010 MARIA GUADALUPE RETAIL FINANCIAL ANALYST, TON S 716.90 ARTHRITIS/ ARTHROPATHY, UNSPECIFIED 02/26/2010 TAE CHAUDHARIN, MARJORIE Alfredo 716.90 ARTHRITIS/ ARTHROPATHY, UNSPECIFIED 02/26/2010 716.90 ARTHRITIS/ ARTHROPATHY, UNSPECIFIED 02/26/2010 716.90 ARTHRITIS/ ARTHROPATHY, UNSPECIFIED 02/26/2010 716.90 ARTHRITIS/ ARTHROPATHY, UNSPECIFIED 02/26/2010 MARIA GUADALUPE RETAIL FINANCIAL ANALYST, TON S 716.90 ARTHRITIS/ ARTHROPATHY, UNSPECIFIED 02/26/2010 MARIA GUADALUPE RETAIL FINANCIAL ANALYST, TON S 716.90 ARTHRITIS/ ARTHROPATHY, UNSPECIFIED 02/26/2010 BIANCA SHAH, ISAIAS 716.90 ARTHRITIS/ ARTHROPATHY, UNSPECIFIED 02/26/2010 MARIA GUADALUPE RETAIL FINANCIAL ANALYST, TON S 716.90 ARTHRITIS/ ARTHROPATHY, UNSPECIFIED 02/26/2010 MARIA GUADALUPE RETAIL FINANCIAL ANALYST, TON S 716.90 ARTHRITIS/ ARTHROPATHY, UNSPECIFIED 02/26/2010 MARIA GUADALUPE RETAIL FINANCIAL ANALYST, TON S 716.90 ARTHRITIS/ ARTHROPATHY, UNSPECIFIED 02/26/2010 MARIA GUADALUPE RETAIL FINANCIAL ANALYST, TON S 716.90 ARTHRITIS/ ARTHROPATHY, UNSPECIFIED 02/26/2010 MARIA GUADALUPE RETAIL FINANCIAL ANALYST, TON S 716.90 ARTHRITIS/ ARTHROPATHY, UNSPECIFIED 02/26/2010 DIAZ CHAUDHARIN, CATHERINE Walker 716.90 ARTHRITIS/ ARTHROPATHY, UNSPECIFIED 02/26/2010 MARIA GUADALUPE RETAIL FINANCIAL ANALYST, TON S 716.90 ARTHRITIS/ ARTHROPATHY, UNSPECIFIED 02/26/2010 MARIA GUADALUPE RETAIL FINANCIAL ANALYST, TON S 716.90 ARTHRITIS/ ARTHROPATHY, UNSPECIFIED 02/26/2010 MARIA GUADALUPE RETAIL FINANCIAL ANALYST, TON S 716.90 ARTHRITIS/ ARTHROPATHY, UNSPECIFIED 02/26/2010 MARIA GUADALUPE RETAIL FINANCIAL ANALYST, TON S 716.90 ARTHRITIS/ ARTHROPATHY, UNSPECIFIED 02/26/2010 VELASQUEZ KAUR PSYD 716.90 ARTHRITIS/ ARTHROPATHY, UNSPECIFIED 02/26/2010 JEWELS ROMANO DO 716.90 ARTHRITIS/ ARTHROPATHY, UNSPECIFIED 02/26/2010 VELASQUEZ KAUR PSYD 716.90 ARTHRITIS/ ARTHROPATHY, UNSPECIFIED 02/26/2010 SYMONE POST APRN 716.90 ARTHRITIS/ ARTHROPATHY, UNSPECIFIED 02/26/2010 RICHARD RETAIL FINANCIAL ANALYST, JEWELS 716.90 ARTHRITIS/ ARTHROPATHY, UNSPECIFIED 02/26/2010 RICHARD RETAIL FINANCIAL ANALYST, JEWELS 716.90 ARTHRITIS/ ARTHROPATHY, UNSPECIFIED 02/26/2010 RICHARD RETAIL FINANCIAL ANALYST, JEWELS 716.90 ARTHRITIS/ ARTHROPATHY, UNSPECIFIED 03/19/2010 JEWELS [...] LOWER LIMB INCLUDING HIP 03/19/2010 MARIA GUADALUPE RETAIL FINANCIAL ANALYST, TON S 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 03/19/2010 MARIA GUADALUPE RETAIL FINANCIAL ANALYST, TON S 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 03/19/2010 MARIA GUADALUPE RETAIL FINANCIAL ANALYST, TON S 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 03/19/2010 MARIA GUADALUPE RETAIL FINANCIAL ANALYST, TON S 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 03/19/2010 ISAIAS VALENZUELA MD 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 03/19/2010 ISAIAS VALENZUELA MD 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 03/19/2010 MARIA GUADALUPE RETAIL FINANCIAL ANALYST, TON S 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 03/19/2010 MARIA GUADALUPE RETAIL FINANCIAL ANALYST, TON S 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 03/19/2010 MARIA GUADALUPE RETAIL FINANCIAL ANALYST, TON S 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 03/19/2010 MARIA GUADALUPE RETAIL FINANCIAL ANALYST, TON S 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 03/19/2010 MARIA GUADALUPE RETAIL FINANCIAL ANALYST, TON S 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 03/19/2010 MARIA GUADALUPE RETAIL FINANCIAL ANALYST, TON S 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 03/19/2010 MARIA GUADALUPE RETAIL FINANCIAL ANALYST, TON S 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 03/19/2010 MARIA GUADALUPE RETAIL FINANCIAL ANALYST, TON S 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 03/19/2010 MARIA GUADALUPE RETAIL FINANCIAL ANALYST, TON S 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 03/19/2010 MARIA GUADALUPE RETAIL FINANCIAL ANALYST, TON S 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 03/19/2010 DIAZ RETAIL FINANCIAL ANALYST, CATHERINE T 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 03/19/2010 DIAZ RETAIL FINANCIAL ANALYST, CATHERINE T 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 03/19/2010 MARIA GUDAALUPE RETAIL FINANCIAL ANALYST, TON S 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 03/19/2010 MARIA GUADALUPE RETAIL FINANCIAL ANALYST, TON S 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 03/19/2010 MARIA GUADALUPE RETAIL FINANCIAL ANALYST, TON S 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 03/19/2010 MARIA GUADALUPE RETAIL FINANCIAL ANALYST, TON S 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 03/19/2010 MARIA GUADALUPE RETAIL FINANCIAL ANALYST, TON S 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 03/19/2010 MARIA GUADALUPE RETAIL FINANCIAL ANALYST, TON S 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 03/19/2010 MARIA GUADALUPE RETAIL FINANCIAL ANALYST, TON S 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 03/19/2010 MARIA GUADALUPE RETAIL FINANCIAL ANALYST, TON S 216.7 BENIGN NEOPLASM OF SKIN [...] OF LOWER LIMB INCLUDING HIP 03/19/2010 RICHARD RETAIL FINANCIAL ANALYST, EJWELS 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 03/19/2010 RICHARD RETAIL FINANCIAL ANALYST, JEWELS 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 03/19/2010 RICHARD RETAIL FINANCIAL ANALYST, JEWELS 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 03/19/2010 RICHARD RETAIL FINANCIAL ANALYST, JEWELS 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 03/19/2010 RICHARD RETAIL FINANCIAL ANALYST, JEWELS 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 03/19/2010 RICHARD RETAIL FINANCIAL ANALYST, JEWELS 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 03/26/2010 ROMANO DO, JEWELS K 729.5 limb pain 03/26/2010 ROMANO DO, JEWELS K V58.32 Removal Of Sutures 03/26/2010 729.5 limb pain 03/26/2010 V58.32 Removal Of Sutures 03/26/2010 729.5 limb pain 03/26/2010 V58.32 Removal Of Sutures 03/26/2010 MARIA GUADALUPE RETAIL FINANCIAL ANALYST, TON S 729.5 limb pain 03/26/2010 MARIA GUADALUPE RETAIL FINANCIAL ANALYST, TON S V58.32 Removal Of Sutures 03/26/2010 STRONG RETAIL FINANCIAL ANALYSTGEOFFREYON M 729.5 limb pain 03/26/2010 STRONG RETAIL FINANCIAL ANALYST, MARJORIE M V58.32 Removal Of Sutures 03/26/2010 729.5 limb pain 03/26/2010 V58.32 Removal Of Sutures 03/26/2010 729.5 limb pain 03/26/2010 V58.32 Removal Of Sutures 03/26/2010 729.5 limb pain 03/26/2010 V58.32 Removal Of Sutures 03/26/2010 MARIA GUADALUPE RETAIL FINANCIAL ANALYST, TON S 729.5 limb pain 03/26/2010 MARIA GUADALUPE RETAIL FINANCIAL ANALYST, TON S V58.32 Removal Of Sutures 03/26/2010 MARIA GUADALUPE RETAIL FINANCIAL ANALYST, TON S 729.5 limb pain 03/26/2010 MARIA GUADALUPE CHAUDHARIN, TON S V58.32 Removal Of Sutures 03/26/2010 ISAIAS VALENZUELA MD 729.5 limb pain 03/26/2010 ISAIAS VALENZUELA MD V58.32 Removal Of Sutures 03/26/2010 MARIA GUADALUPE RETAIL FINANCIAL ANALYST, TON S 729.5 limb pain 03/26/2010 MARIA GUADALUPE RETAIL FINANCIAL ANALYST, TON S V58.32 Removal Of Sutures 03/26/2010 MARIA GUADALUPE RETAIL FINANCIAL ANALYST, TON S 729.5 limb pain 03/26/2010 MARIA GUADALUPE RETAIL FINANCIAL ANALYST, TON S V58.32 Removal Of Sutures 03/26/2010 MARIA GUADALUPE RETAIL FINANCIAL ANALYST, TON S 729.5 LIMB PAIN 03/26/2010 MARIA GUADALUPE RETAIL FINANCIAL ANALYST, TON S V58.32 REMOVAL OF SUTURES 03/26/2010 MARIA GUADALUPE RETAIL FINANCIAL ANALYST, TON S 729.5 LIMB PAIN 03/26/2010 MARIA GUADALUPE RETAIL FINANCIAL ANALYST, TON S V58.32 REMOVAL OF SUTURES 03/26/2010 MARIA GUADALUPE RETAIL FINANCIAL ANALYST, TON S 729.5 LIMB PAIN 03/26/2010 MARIA GUADALUPE RETAIL FINANCIAL ANALYST, TON S V58.32 REMOVAL OF SUTURES 03/26/2010 DIAZ RETAIL FINANCIAL ANALYST, CATHERINE T 729.5 LIMB PAIN 03/26/2010 DIAZ RETAIL FINANCIAL ANALYST, CATHERINE T V58.32 REMOVAL OF SUTURES 03/26/2010 MARIA GUADALUPE RETAIL FINANCIAL ANALYST, TON S 729.5 LIMB PAIN 03/26/2010 MARIA GUADALUPE RETAIL FINANCIAL ANALYST, TON S V58.32 REMOVAL OF SUTURES 03/26/2010 MARIA GUADALUPE RETAIL FINANCIAL ANALYST, TON S 729.5 LIMB PAIN 03/26/2010 MARIA GUADALUPE RETAIL FINANCIAL ANALYST, TON S V58.32 REMOVAL OF SUTURES 03/26/2010 MARIA GUADALUPE RETAIL FINANCIAL ANALYST, TON S 729.5 LIMB PAIN 03/26/2010 MARIA GUADALUPE RETAIL FINANCIAL ANALYST, TON S V58.32 REMOVAL OF SUTURES 03/26/2010 MARIA GUADALUPE RETAIL FINANCIAL ANALYST, TON S 729.5 LIMB PAIN 03/26/2010 MARIA GUADALUPE RETAIL FINANCIAL ANALYST, TON S V58.32 REMOVAL OF SUTURES 03/26/2010 [...] VAUGHN V58.32 REMOVAL OF SUTURES 03/26/2010 RICHARD RETAIL FINANCIAL ANALYST JEWELS 729.5 LIMB PAIN 03/26/2010 RICHARD RETAIL FINANCIAL ANALYST, JEWELS V58.32 REMOVAL OF SUTURES 03/26/2010 RICHARD RETAIL FINANCIAL ANALYST, JEWELS 729.5 LIMB PAIN 03/26/2010 RICHARD RETAIL FINANCIAL ANALYST, JEWELS V58.32 REMOVAL OF SUTURES 03/26/2010 EJWELS RAMOS APRN 729.5 LIMB PAIN 03/26/2010 JEWELS [...] VERTIGO- BENIGN PAROXYSMAL POSITIONAL 06/26/2010 MARIA GUADALUPE RETAIL FINANCIAL ANALYST, TON S 787.91 DIARRHEA 06/26/2010 MARIA GUADALUPE RETAIL FINANCIAL ANALYST, TON S 789.04 ABDOMINAL PAIN LEFT LOWER QUADRANT 06/26/2010 ISAIAS VALENZUELA MD 386.11 VERTIGO- BENIGN PAROXYSMAL POSITIONAL 06/26/2010 ISAIAS VALENZUELA MD 787.91 DIARRHEA 06/26/2010 ISAIAS VALENZUELA MD 789.04 ABDOMINAL PAIN LEFT LOWER QUADRANT 06/26/2010 MARIA GUADALUPE RETAIL FINANCIAL ANALYST, TON S 386.11 VERTIGO- BENIGN PAROXYSMAL POSITIONAL 06/26/2010 MARIA GUADALUPE RETAIL FINANCIAL ANALYST, TON S 787.91 DIARRHEA 06/26/2010 MARIA GUADALUPE RETAIL FINANCIAL ANALYST, TON S 789.04 ABDOMINAL PAIN LEFT LOWER QUADRANT 06/26/2010 MARIA GUADALUPE RETAIL FINANCIAL ANALYST, TON S 386.11 VERTIGO- BENIGN PAROXYSMAL POSITIONAL 06/26/2010 MARIA GUADALUPE RETAIL FINANCIAL ANALYST, TON S 787.91 DIARRHEA 06/26/2010 MARIA GUADALUPE CHAUDHARIN, TON S 789.04 ABDOMINAL PAIN LEFT LOWER QUADRANT 06/26/2010 MARIA GUADALUPE RETAIL FINANCIAL ANALYST, TON S 386.11 VERTIGO- BENIGN PAROXYSMAL POSITIONAL 06/26/2010 MARIA GUADALUPE RETAIL FINANCIAL ANALYST, TON S 787.91 DIARRHEA 06/26/2010 MARIA GUADALUPE RETAIL FINANCIAL ANALYST, TON S 789.04 ABDOMINAL PAIN LEFT LOWER QUADRANT 06/26/2010 MARIA GUADALUPE RETAIL FINANCIAL ANALYST, TON S 386.11 VERTIGO- BENIGN PAROXYSMAL POSITIONAL 06/26/2010 MARIA GUADALUPE RETAIL FINANCIAL ANALYST, TON S 787.91 DIARRHEA 06/26/2010 MARIA GUADALUPE RETAIL FINANCIAL ANALYST, TON S 789.04 ABDOMINAL PAIN LEFT LOWER QUADRANT 06/26/2010 MARIA GUADALUPE RETAIL FINANCIAL ANALYST, TON S 386.11 VERTIGO- BENIGN PAROXYSMAL POSITIONAL 06/26/2010 MARIA GUADALUPE RETAIL FINANCIAL ANALYST, TON S 787.91 DIARRHEA 06/26/2010 MARIA GUADALUPE RETAIL FINANCIAL ANALYST, TON S 789.04 ABDOMINAL PAIN LEFT LOWER QUADRANT 06/26/2010 CATHERINE PERALES APRN T 386.11 VERTIGO- BENIGN PAROXYSMAL POSITIONAL 06/26/2010 CATHERINE PERALES APRN T 787.91 DIARRHEA 06/26/2010 CATHERINE PERALES APRN T 789.04 ABDOMINAL PAIN LEFT LOWER QUADRANT 06/26/2010 MARIA GUADALUPEGARY CHAUDHARIN, TON S 386.11 VERTIGO- BENIGN PAROXYSMAL POSITIONAL 06/26/2010 MARIA GUADALUPE RETAIL FINANCIAL ANALYST, TON S 787.91 DIARRHEA 06/26/2010 MARIA GUADALUPE CHAUDHARIN, TON S 789.04 ABDOMINAL PAIN LEFT LOWER QUADRANT 06/26/2010 MARIA GUADALUPE RETAIL FINANCIAL ANALYST, OTN S 386.11 VERTIGO- BENIGN PAROXYSMAL POSITIONAL 06/26/2010 MARIA GUADALUPE RETAIL FINANCIAL ANALYST, TON S 787.91 DIARRHEA 06/26/2010 MARIA GUADALUPE RETAIL FINANCIAL ANALYST, TON S 789.04 ABDOMINAL PAIN LEFT LOWER QUADRANT 06/26/2010 AMRIA GUADALUPE RETAIL FINANCIAL ANALYST, TON S 386.11 VERTIGO- BENIGN PAROXYSMAL POSITIONAL 06/26/2010 MARIA GUADALUPE RETAIL FINANCIAL ANALYST, TON S 787.91 DIARRHEA 06/26/2010 MARIA GUADALUPE CHAUDHARIN, TON S 789.04 ABDOMINAL PAIN LEFT LOWER QUADRANT 06/26/2010 MARIA GUADALUPE RETAIL FINANCIAL ANALYST, TON S 386.11 VERTIGO- BENIGN PAROXYSMAL POSITIONAL 06/26/2010 MARIA GUADALUPE RETAIL FINANCIAL ANALYST, TON S 787.91 DIARRHEA 06/26/2010 MARIA GUADALUPE CHAUDHARIN, TON S 789.04 ABDOMINAL PAIN LEFT LOWER QUADRANT 06/26/2010 VELASQUEZ KAUR PSYD L 386.11 VERTIGO- BENIGN PAROXYSMAL POSITIONAL 06/26/2010 VELASQUEZ KAUR PSYD ANN L 787.91 DIARRHEA 06/26/2010 VELASQUEZ KAUR PSYD ANN L 789.04 ABDOMINAL PAIN LEFT LOWER QUADRANT 06/26/2010 ROMANO DO, JEWELS K 386.11 VERTIGO- BENIGN PAROXYSMAL POSITIONAL 06/26/2010 ROMNAO DO, JEWELS K 787.91 DIARRHEA 06/26/2010 ROMANO [...] ABDOMINAL PAIN LEFT LOWER QUADRANT 06/26/2010 RICHARD RETAIL FINANCIAL ANALYST, JEWELS 386.11 VERTIGO- BENIGN PAROXYSMAL POSITIONAL 06/26/2010 RICHARD RETAIL FINANCIAL ANALYST, JEWELS 787.91 DIARRHEA 06/26/2010 RICHARD RETAIL FINANCIAL ANALYST, JEWELS 789.04 ABDOMINAL PAIN LEFT LOWER QUADRANT 06/26/2010 RICHARD RETAIL FINANCIAL ANALYST, JEWELS 386.11 VERTIGO- BENIGN PAROXYSMAL POSITIONAL 06/26/2010 RICHARD RETAIL FINANCIAL ANALYST, JEWELS 787.91 DIARRHEA 06/26/2010 RICHARD RETAIL FINANCIAL ANALYST, JEWELS 789.04 ABDOMINAL PAIN LEFT LOWER QUADRANT 06/26/2010 RICHARD RETAIL FINANCIAL ANALYST, JEWELS 386.11 VERTIGO- BENIGN PAROXYSMAL POSITIONAL 06/26/2010 RICHARD RETAIL FINANCIAL ANALYST, JEWELS 787.91 DIARRHEA 06/26/2010 RICHARD RETAIL FINANCIAL ANALYST, JEWELS 789.04 ABDOMINAL PAIN LEFT LOWER QUADRANT [...] APRN 386.30 LABYRINTHITIS UNSPECIFIED 07/01/2010 MARIA GUADALUPE RETAIL FINANCIAL ANALYST, TON S 386.30 LABYRINTHITIS UNSPECIFIED 07/01/2010 MARIA GUADALUPE RETAIL FINANCIAL ANALYST, TON S 386.30 LABYRINTHITIS UNSPECIFIED 07/01/2010 MARIA GUADALUPE CHAUDHARIN, TON S 386.30 LABYRINTHITIS UNSPECIFIED 07/01/2010 MARIA GUADALUPE VAUGHN, TON S 386.30 LABYRINTHITIS UNSPECIFIED 07/01/2010 VELASQUEZ KAUR PSYD 386.30 LABYRINTHITIS UNSPECIFIED 07/01/2010 JEWELS ROMANO DO K 386.30 LABYRINTHITIS UNSPECIFIED 07/01/2010 VELASQUEZ KAUR PSYD L 386.30 LABYRINTHITIS UNSPECIFIED 07/01/2010 SYMONE POST APRN 386.30 LABYRINTHITIS UNSPECIFIED 07/01/2010 RICHARD RETAIL FINANCIAL ANALYST, JEWELS 386.30 LABYRINTHITIS UNSPECIFIED 07/01/2010 RICHARD RETAIL FINANCIAL ANALYST, JEWELS 386.30 LABYRINTHITIS UNSPECIFIED 07/01/2010 RICHARD RETAIL FINANCIAL ANALYST, JEWELS 386.30 LABYRINTHITIS UNSPECIFIED 09/13/2010 ROMANO DO JEWELS K 698.9 PRURITUS NOS 09/13/2010 ROMANO SACHA OTTOA K 782.1 RASH 09/13/2010 JUAN ANTONIO OTTOSACHAA K 786.05 SHORTNESS OF BREATH 09/13/2010 698.9 PRURITUS NOS 09/13/2010 782.1 RASH 09/13/2010 786.05 SHORTNESS OF BREATH 09/13/2010 698.9 PRURITUS NOS 09/13/2010 782.1 RASH 09/13/2010 786.05 SHORTNESS OF BREATH 09/13/2010 QUINTEN LERMA APRNNDA S 698.9 PRURITUS NOS 09/13/2010 MARIA GUADALUPE VAUGHN, TON S 782.1 RASH 09/13/2010 QUINTEN LERMA [...] 786.05 SHORTNESS OF BREATH 09/13/2010 MARIA GUADALUPE RETAIL FINANCIAL ANALYST, TON S 698.9 PRURITUS NOS 09/13/2010 MARIA GUADALUPE RETAIL FINANCIAL ANALYST, TON S 782.1 RASH 09/13/2010 MARIA GUADALUPE RETAIL FINANCIAL ANALYST, TON S 786.05 SHORTNESS OF BREATH 09/13/2010 MARIA GUADALUPE RETAIL FINANCIAL ANALYST, TON S 698.9 PRURITUS NOS 09/13/2010 MARIA GUADALUPE RETAIL FINANCIAL ANALYST, TON S 782.1 RASH 09/13/2010 MARIA GUADALUPE RETAIL FINANCIAL ANALYST, TON S 786.05 SHORTNESS OF BREATH 09/13/2010 ISAIAS VALENZUELA MD 698.9 PRURITUS NOS 09/13/2010 ISAIAS VALENZUELA MD 782.1 RASH 09/13/2010 ISAIAS VALENZUELA MD 786.05 SHORTNESS OF BREATH 09/13/2010 MARIA GUADALUPE RETAIL FINANCIAL ANALYST, TON S 698.9 PRURITUS NOS 09/13/2010 MARIA GUADALUPE RETAIL FINANCIAL ANALYST, TON S 782.1 RASH 09/13/2010 MARIA GUADALUPE RETAIL FINANCIAL ANALYST, TON S 786.05 SHORTNESS OF BREATH 09/13/2010 MARIA GUADALUPE RETAIL FINANCIAL ANALYST, TON S 698.9 PRURITUS NOS 09/13/2010 MARIA GUADALUPE RETAIL FINANCIAL ANALYST, TON S 782.1 RASH 09/13/2010 MARIA GUADALUPE RETAIL FINANCIAL ANALYST, TON S 786.05 SHORTNESS OF BREATH 09/13/2010 MARIA GUADALUPE RETAIL FINANCIAL ANALYST, TON S 698.9 PRURITUS NOS 09/13/2010 MARIA GUADALUPE RETAIL FINANCIAL ANALYST, TON S 782.1 RASH 09/13/2010 MARIA GUADALUPE RETAIL FINANCIAL ANALYST, TON S 786.05 SHORTNESS OF BREATH 09/13/2010 MARIA GUADALUPE RETAIL FINANCIAL ANALYST, TON S 698.9 PRURITUS NOS 09/13/2010 MARIA GUADALUPE RETAIL FINANCIAL ANALYST, TON S 782.1 RASH 09/13/2010 MARIA GUADALUPE RETAIL FINANCIAL ANALYST, TON S 786.05 SHORTNESS OF BREATH 09/13/2010 MARIA GUADALUPE RETAIL FINANCIAL ANALYST, TON S 698.9 PRURITUS NOS 09/13/2010 MARIA GUADALUPE RETAIL FINANCIAL ANALYST, TON S 782.1 RASH 09/13/2010 MARIA GUADALUPE RETAIL FINANCIAL ANALYST, TON S 786.05 SHORTNESS OF BREATH 09/13/2010 DIAZ RETAIL FINANCIAL ANALYST, CATHERINE T 698.9 PRURITUS NOS 09/13/2010 DIAZ RETAIL FINANCIAL ANALYST, CATHERINE T 782.1 RASH 09/13/2010 DIAZ RETAIL FINANCIAL ANALYST, CATHERINE T 786.05 SHORTNESS OF BREATH 09/13/2010 MARIA GUADALUPE RETAIL FINANCIAL ANALYST, TON S 698.9 PRURITUS NOS 09/13/2010 MARIA GUADALUPE RETAIL FINANCIAL ANALYST, TON S 782.1 RASH 09/13/2010 MARIA GUADALUPE CHAUDHARIN, TON S 786.05 SHORTNESS OF BREATH 09/13/2010 MARIA GUADALUPE RETAIL FINANCIAL ANALYST, TON S 698.9 PRURITUS NOS 09/13/2010 MARIA GUADALUPE RETAIL FINANCIAL ANALYST, TNO S 782.1 RASH 09/13/2010 MARIA GUADALUPEGARY CHAUDHARIN, TON S 786.05 SHORTNESS OF BREATH 09/13/2010 MARIA GUADALUPE RETAIL FINANCIAL ANALYST, TON S 698.9 PRURITUS NOS 09/13/2010 MARIA GUADALUPE RETAIL FINANCIAL ANALYST, TON S 782.1 RASH 09/13/2010 MARIA GUADALUPE CHAUDHARIN, TON S 786.05 SHORTNESS OF BREATH 09/13/2010 MARIA GUADALUPE RETAIL FINANCIAL ANALYST, TON S 698.9 PRURITUS NOS 09/13/2010 MARIA GUADALUPE RETAIL FINANCIAL ANALYST, TON S 782.1 RASH 09/13/2010 MARIA GUADALUPE RETAIL FINANCIAL ANALYST, TON S 786.05 SHORTNESS OF BREATH 09/13/2010 [...] L 786.05 SHORTNESS OF BREATH 09/13/2010 POST RETAIL FINANCIAL ANALYST SYMONE D 698.9 PRURITUS NOS 09/13/2010 POST RETAIL FINANCIAL ANALYST, SYMONE D 782.1 RASH 09/13/2010 POST RETAIL FINANCIAL ANALYST, SYMONE D 786.05 SHORTNESS OF BREATH 09/13/2010 RICHARD RETAIL FINANCIAL ANALYST, JEWELS 698.9 PRURITUS NOS 09/13/2010 RICHARD RETAIL FINANCIAL ANALYST, JEWELS 782.1 RASH 09/13/2010 RICHARD RETAIL FINANCIAL ANALYST, JEWELS 786.05 SHORTNESS OF BREATH 09/13/2010 RICHARD RETAIL FINANCIAL ANALYST, JEWELS 698.9 PRURITUS NOS 09/13/2010 RICHARD RETAIL FINANCIAL ANALYST, JEWELS 782.1 RASH 09/13/2010 RICHARD RETAIL FINANCIAL ANALYST, JEWELS 786.05 SHORTNESS OF BREATH 09/13/2010 RICHARD RETAIL FINANCIAL ANALYST, JEWELS 698.9 PRURITUS NOS 09/13/2010 RICHARD RETAIL FINANCIAL ANALYST, JEWELS 782.1 RASH 09/13/2010 RICHARD RETAIL FINANCIAL ANALYST, JEWELS 786.05 SHORTNESS OF BREATH 02/10/2011 ROMANO [...] 564.1 IRRITABLE BOWEL SYNDROME 02/10/2011 MARIA GUADALUPE RETAIL FINANCIAL ANALYSTQIUNTEN RamosNDA S 578.1 BLOOD IN STOOL 02/10/2011 MARIA GUADALUPE RETAIL FINANCIAL ANALYST, TON S 789.07 ABDOMINAL PAIN GENERALIZED 02/10/2011 [...] 564.1 IRRITABLE BOWEL SYNDROME 02/10/2011 MARIA GUADALUPE RETAIL FINANCIAL ANALYST, TON S 578.1 BLOOD IN STOOL 02/10/2011 QUINTEN LERMA APRNNDA S 789.07 ABDOMINAL PAIN GENERALIZED 02/10/2011 QUINTEN LERMA APRNNDA S V04.81 FLU DX (3 YRS AND ABOVE, IM) 02/10/2011 MARIA GUADALUPE VAUGHN, TON S 564.1 IRRITABLE BOWEL SYNDROME 02/10/2011 QUINTEN LERMA APRNNDA S 578.1 BLOOD IN STOOL 02/10/2011 MARIA GUADALUPE RETAIL FINANCIAL ANALYST, TON S 789.07 ABDOMINAL PAIN GENERALIZED 02/10/2011 MARIA GUADALUPE RETAIL FINANCIAL ANALYST, TON S V04.81 FLU DX (3 YRS AND ABOVE, IM) 02/10/2011 ISAIAS VALENZUELA MD 564.1 IRRITABLE BOWEL SYNDROME 02/10/2011 ISAIAS VALENZUELA MD 578.1 BLOOD IN STOOL 02/10/2011 ISAIAS VALENZUELA MD 789.07 ABDOMINAL PAIN GENERALIZED 02/10/2011 ISAIAS VALENZUELA MD V04.81 FLU DX (3 YRS AND ABOVE, IM) 02/10/2011 MARIA GUADALUPE RETAIL FINANCIAL ANALYST, TON S 564.1 IRRITABLE BOWEL SYNDROME 02/10/2011 MARIA GUADALUPE RETAIL FINANCIAL ANALYST, TON S 578.1 BLOOD IN STOOL 02/10/2011 MARIA GUADALUPE RETAIL FINANCIAL ANALYST, TON S 789.07 ABDOMINAL PAIN GENERALIZED 02/10/2011 MARIA GUADALUPE RETAIL FINANCIAL ANALYST, TON S V04.81 FLU DX (3 YRS AND ABOVE, IM) 02/10/2011 MARIA GUADALUPE RETAIL FINANCIAL ANALYST, TON S 564.1 IRRITABLE BOWEL SYNDROME 02/10/2011 MARIA GUADALUPE RETAIL FINANCIAL ANALYST, TON S 578.1 BLOOD IN STOOL 02/10/2011 MARIA GUADALUPE RETAIL FINANCIAL ANALYST, TON S 789.07 ABDOMINAL PAIN GENERALIZED 02/10/2011 MARIA GUADALUPE RETAIL FINANCIAL ANALYST, TON S V04.81 FLU DX (3 YRS AND ABOVE, IM) 02/10/2011 MARIA GUADALUPE RETAIL FINANCIAL ANALYST, TON S 564.1 IRRITABLE BOWEL SYNDROME 02/10/2011 MARIA GUADALUPE RETAIL FINANCIAL ANALYST, TON S 578.1 BLOOD IN STOOL 02/10/2011 MARIA GUADALUPE RETAIL FINANCIAL ANALYST, TON S 789.07 ABDOMINAL PAIN GENERALIZED 02/10/2011 MARIA GUADALUPE RETAIL FINANCIAL ANALYST, TON S V04.81 FLU DX (3 YRS AND ABOVE, IM) 02/10/2011 MARIA GUADALUPE RETAIL FINANCIAL ANALYST, TON S 564.1 IRRITABLE BOWEL SYNDROME 02/10/2011 MARIA GUADALUPE RETAIL FINANCIAL ANALYST, TON S 578.1 BLOOD IN STOOL 02/10/2011 MARIA GUADALUPE RETAIL FINANCIAL ANALYST, TON S 789.07 ABDOMINAL PAIN GENERALIZED 02/10/2011 MARIA GUADALUPE RETAIL FINANCIAL ANALYST, TON S V04.81 FLU DX (3 YRS AND ABOVE, IM) 02/10/2011 MARIA GUADALUPE RETAIL FINANCIAL ANALYST, TON S 564.1 IRRITABLE BOWEL SYNDROME 02/10/2011 MARIA GUADALUPE RETAIL FINANCIAL ANALYST, TON S 578.1 BLOOD IN STOOL 02/10/2011 MARIA GUADALUPE RETAIL FINANCIAL ANALYST, TON S 789.07 ABDOMINAL PAIN GENERALIZED 02/10/2011 MARIA GUADALUPE RETAIL FINANCIAL ANALYST, TON S V04.81 FLU DX (3 YRS AND ABOVE, IM) 02/10/2011 DIAZ RETAIL FINANCIAL ANALYST, CATHERINE T 564.1 IRRITABLE BOWEL SYNDROME 02/10/2011 DIAZ RETAIL FINANCIAL ANALYST, CATHERINE T 578.1 BLOOD IN STOOL 02/10/2011 DIAZ RETAIL FINANCIAL ANALYST, CATHERINE T 789.07 ABDOMINAL PAIN GENERALIZED 02/10/2011 DIAZ CHAUDHARIN, CATHERINE T V04.81 FLU DX (3 YRS AND ABOVE, IM) 02/10/2011 MARIA GUADALUPE RETAIL FINANCIAL ANALYST, TON S 564.1 IRRITABLE BOWEL SYNDROME 02/10/2011 MARIA GUADALUPE RETAIL FINANCIAL ANALYST, TON S 578.1 BLOOD IN STOOL 02/10/2011 MARIA GUADALUPE RETAIL FINANCIAL ANALYST, TON S 789.07 ABDOMINAL PAIN GENERALIZED 02/10/2011 MARIA GUADALUPE RETAIL FINANCIAL ANALYST, TON S V04.81 FLU DX (3 YRS AND ABOVE, IM) 02/10/2011 MARIA GUADALUPE RETAIL FINANCIAL ANALYST, TON S 564.1 IRRITABLE BOWEL SYNDROME 02/10/2011 MARIA GUADALUPE RETAIL FINANCIAL ANALYST, TON S 578.1 BLOOD IN STOOL 02/10/2011 MARIA GUADALUPE RETAIL FINANCIAL ANALYST, TON S 789.07 ABDOMINAL PAIN GENERALIZED 02/10/2011 MARIA GUADALUPE RETAIL FINANCIAL ANALYST, TON S V04.81 FLU DX (3 YRS AND ABOVE, IM) 02/10/2011 MARIA GUADALUPE RETAIL FINANCIAL ANALYST, TON S 564.1 IRRITABLE BOWEL SYNDROME 02/10/2011 MARIA GUADALUPE RETAIL FINANCIAL ANALYST, TON S 578.1 BLOOD IN STOOL 02/10/2011 MARIA GUADALUPE RETAIL FINANCIAL ANALYST, TON S 789.07 ABDOMINAL PAIN GENERALIZED 02/10/2011 MARIA GUADALUPE RETAIL FINANCIAL ANALYST, TON S V04.81 FLU DX (3 YRS AND ABOVE, IM) 02/10/2011 MARIA GUADALUPE RETAIL FINANCIAL ANALYST, TON S 564.1 IRRITABLE BOWEL SYNDROME 02/10/2011 MARIA GUADALUPEGARY VAUGHN TON S 578.1 BLOOD IN STOOL 02/10/2011 MARIA GUADALUPE RETAIL FINANCIAL ANALYST TON S 789.07 ABDOMINAL PAIN GENERALIZED 02/10/2011 [...] JEWELS 789.07 ABDOMINAL PAIN GENERALIZED 02/10/2011 RICHARD RETAIL FINANCIAL ANALYST, JEWELS V04.81 FLU DX (3 YRS AND ABOVE, IM) 02/10/2011 RICHARD RETAIL FINANCIAL ANALYST, JEWELS 564.1 IRRITABLE BOWEL SYNDROME 02/10/2011 RICHARD RETAIL FINANCIAL ANALYST, JEWELS 578.1 BLOOD IN STOOL 02/10/2011 RICHARD RETAIL FINANCIAL ANALYST, JEWELS 789.07 ABDOMINAL PAIN GENERALIZED 02/10/2011 RICHARD RETAIL FINANCIAL ANALYST, JEWELS V04.81 FLU DX (3 YRS AND ABOVE, IM) 02/10/2011 RICHARD RETAIL FINANCIAL ANALYST, JEWELS 564.1 IRRITABLE BOWEL SYNDROME 02/10/2011 RICHARD RETAIL FINANCIAL ANALYST, JEWELS 578.1 BLOOD IN STOOL 02/10/2011 RICHARD RETAIL FINANCIAL ANALYST, JEWELS 789.07 ABDOMINAL PAIN GENERALIZED 02/10/2011 RICHARD RETAIL FINANCIAL ANALYST, JEWELS V04.81 FLU DX (3 YRS AND [...] TON S 536.8 DYSPEPSIA 03/17/2011 MARIA GUADALUPE RETAIL FINANCIAL ANALYST, TON S 789.01 ABDOMINAL PAIN RIGHT UPPER QUADRANT 03/17/2011 MARIA GUADALUPE RETAIL FINANCIAL ANALYST, TON S V12.72 PERSONAL HISTORY OF COLONIC POLYPS 03/17/2011 MARIA GUADALUPE RETAIL FINANCIAL ANALYST, TON S 536.8 DYSPEPSIA 03/17/2011 MARIA GUADALUPE RETAIL FINANCIAL ANALYST, TON S 789.01 ABDOMINAL PAIN RIGHT UPPER QUADRANT 03/17/2011 MARIA GUADALUPE RETAIL FINANCIAL ANALYST, TON S V12.72 PERSONAL HISTORY OF COLONIC POLYPS 03/17/2011 CATHERINE PERALES APRN T 536.8 DYSPEPSIA 03/17/2011 CATHERINE PERALES APRN T 789.01 ABDOMINAL PAIN RIGHT UPPER QUADRANT 03/17/2011 CATHERINE PERALES APRN T V12.72 PERSONAL HISTORY OF COLONIC POLYPS 03/17/2011 MARIA GUADALUPE RETAIL FINANCIAL ANALYST, TON S 536.8 DYSPEPSIA 03/17/2011 MARIA GUADALUPE RETAIL FINANCIAL ANALYST, TON S 789.01 ABDOMINAL PAIN RIGHT UPPER QUADRANT 03/17/2011 MARIA GUADALUPE RETAIL FINANCIAL ANALYST, TON S V12.72 PERSONAL HISTORY OF COLONIC POLYPS 03/17/2011 MARIA GUADALUPE RETAIL FINANCIAL ANALYST, TON S 536.8 DYSPEPSIA 03/17/2011 MARIA GUADALUPE RETAIL FINANCIAL ANALYST, TON S 789.01 ABDOMINAL PAIN RIGHT UPPER QUADRANT 03/17/2011 MARIA GUADALUPE RETAIL FINANCIAL ANALYST, TON S V12.72 PERSONAL HISTORY OF COLONIC POLYPS 03/17/2011 MARIA GUADALUPE RETAIL FINANCIAL ANALYST, TON S 536.8 DYSPEPSIA 03/17/2011 MARIA GUADALUPE RETAIL FINANCIAL ANALYST, TON S 789.01 ABDOMINAL PAIN RIGHT UPPER QUADRANT 03/17/2011 MARIA GUADALUPE RETAIL FINANCIAL ANALYST, TON S V12.72 PERSONAL HISTORY OF COLONIC POLYPS 03/17/2011 MARIA GUADALUPE RETAIL FINANCIAL ANALYST, TON S 536.8 DYSPEPSIA 03/17/2011 MARIA GUADALUPE RETAIL FINANCIAL ANALYST, TON S 789.01 ABDOMINAL PAIN RIGHT UPPER QUADRANT 03/17/2011 MARIA GUADALUPE RETAIL FINANCIAL ANALYST, TON S V12.72 PERSONAL HISTORY OF COLONIC [...] V45.89 OTHER POSTSURGICAL STATUS 04/21/2011 MARIA GUADALUPE RETAIL FINANCIAL ANALYST, TON S V45.89 OTHER POSTSURGICAL STATUS 04/21/2011 MARIA GUADALUPE RETAIL FINANCIAL ANALYST, TON S V45.89 OTHER POSTSURGICAL STATUS 04/21/2011 ISAIAS VALENZUELA MD V45.89 OTHER POSTSURGICAL STATUS 04/21/2011 MARIA GUADALUPE RETAIL FINANCIAL ANALYST, TON S V45.89 OTHER POSTSURGICAL STATUS 04/21/2011 MARIA GUADALUPE RETAIL FINANCIAL ANALYST, TON S V45.89 OTHER POSTSURGICAL STATUS 04/21/2011 MARIA GUADALUPE RETAIL FINANCIAL ANALYST, TON S V45.89 OTHER POSTSURGICAL STATUS 04/21/2011 MARIA GUADALUPE RETAIL FINANCIAL ANALYST, TON S V45.89 OTHER POSTSURGICAL STATUS 04/21/2011 MARIA GUADALUPE RETAIL FINANCIAL ANALYST, TON S V45.89 OTHER POSTSURGICAL STATUS 04/21/2011 CATHERINE PERALES APRN V45.89 OTHER POSTSURGICAL STATUS 04/21/2011 MARIA GUADALUPE RETAIL FINANCIAL ANALYST, TON S V45.89 OTHER POSTSURGICAL STATUS 04/21/2011 MARIA GUADALUPE RETAIL FINANCIAL ANALYST, TON S V45.89 OTHER POSTSURGICAL STATUS 04/21/2011 MARIA GUADALUPE RETAIL FINANCIAL ANALYST, TON S V45.89 OTHER POSTSURGICAL STATUS 04/21/2011 MARIA GUADALUPE RETAIL FINANCIAL ANALYST, TON S V45.89 OTHER POSTSURGICAL STATUS 04/21/2011 VELASQUEZ KAUR PSYD V45.89 OTHER POSTSURGICAL STATUS 04/21/2011 JEWELS ROMANO DO V45.89 OTHER POSTSURGICAL STATUS 04/21/2011 VELASQUEZ KAUR PSYD L V45.89 OTHER POSTSURGICAL STATUS 04/21/2011 SYMONE POST APRN V45.89 OTHER POSTSURGICAL STATUS 04/21/2011 RICHARD RETAIL FINANCIAL ANALYST, JEWELS V45.89 OTHER POSTSURGICAL STATUS 04/21/2011 RICHARD RETAIL FINANCIAL ANALYST, JEWELS V45.89 OTHER POSTSURGICAL STATUS 04/21/2011 RICHARD RETAIL FINANCIAL ANALYST, JEWELS V45.89 OTHER POSTSURGICAL STATUS 09/16/2011 JEWELS [...] LATERAL EPICONDYLITIS [place] 09/16/2011 MARIA GUADALUPE RETAIL FINANCIAL ANALYST, TON S 726.32 LATERAL EPICONDYLITIS [place] [...] 726.32 LATERAL EPICONDYLITIS [place] 09/16/2011 RICHARD RETAIL FINANCIAL ANALYST, JEWELS 726.32 LATERAL EPICONDYLITIS [place] 09/16/2011 RICHARD RETAIL FINANCIAL ANALYST, JEWELS 726.32 LATERAL EPICONDYLITIS [place] 09/16/2011 RICHARD RETAIL FINANCIAL ANALYST, JEWELS 726.32 LATERAL EPICONDYLITIS [place] 04/12/2012 [...] V76.51 COLON CANCER SCREENING 04/12/2012 MARIA GUADALUPE RETAIL FINANCIAL ANALYST, TON S 008.8 GASTROENTERITIS, VIRAL 04/12/2012 MARIA GUADALUPE RETAIL FINANCIAL ANALYST, TON S V76.10 BREAST CANCER SCREENING 04/12/2012 MARIA GUADALUPE RETAIL FINANCIAL ANALYST, TON S V76.2 CERVICAL CANCER SCREENING (PAP SMEAR) 04/12/2012 MARIA GUADALUPE RETAIL FINANCIAL ANALYST, TON S V76.51 COLON CANCER SCREENING 04/12/2012 MARIA GUADALUPE RETAIL FINANCIAL ANALYST, TON S 008.8 GASTROENTERITIS, VIRAL 04/12/2012 MARIA GUADALUPE RETAIL FINANCIAL ANALYST, TON S V76.10 BREAST CANCER SCREENING 04/12/2012 MARIA GUADALUPE RETAIL FINANCIAL ANALYST, TON S V76.2 CERVICAL CANCER SCREENING (PAP SMEAR) 04/12/2012 MARIA GUADALUPE RETAIL FINANCIAL ANALYST, TON S V76.51 COLON CANCER SCREENING 04/12/2012 ISAIAS VALENZUELA MD 008.8 GASTROENTERITIS, VIRAL 04/12/2012 ISAIAS VALENZUELA MD V76.10 BREAST CANCER SCREENING 04/12/2012 ISAIAS VALENZUELA MD V76.2 CERVICAL CANCER SCREENING (PAP SMEAR) 04/12/2012 ISAIAS VALENZUELA MD V76.51 COLON CANCER SCREENING 04/12/2012 MARIA GUADALUPE RETAIL FINANCIAL ANALYST, TON S 008.8 GASTROENTERITIS, VIRAL 04/12/2012 MARIA GUADALUPE RETAIL FINANCIAL ANALYST, TON S V76.10 BREAST CANCER SCREENING 04/12/2012 MARIA GUADALUPE RETAIL FINANCIAL ANALYST, TON S V76.2 CERVICAL CANCER SCREENING (PAP SMEAR) 04/12/2012 MARIA GUADALUPE RETAIL FINANCIAL ANALYST, TON S V76.51 COLON CANCER SCREENING 04/12/2012 MARIA GUADALUPE RETAIL FINANCIAL ANALYST, TON S 008.8 GASTROENTERITIS, VIRAL 04/12/2012 MARIA GUADALUPE RETAIL FINANCIAL ANALYST, TON S V76.10 BREAST CANCER SCREENING 04/12/2012 MARIA GUADALUPE RETAIL FINANCIAL ANALYST, TON S V76.2 CERVICAL CANCER SCREENING (PAP SMEAR) 04/12/2012 MARIA GUADALUPE RETAIL FINANCIAL ANALYST, TON S V76.51 COLON CANCER SCREENING 04/12/2012 MARIA GUADALUPE RETAIL FINANCIAL ANALYST, TON S 008.8 GASTROENTERITIS, VIRAL 04/12/2012 MARIA GUADALUPE RETAIL FINANCIAL ANALYST, TON S V76.10 BREAST CANCER SCREENING 04/12/2012 MARIA GUADALUPE RETAIL FINANCIAL ANALYST, TON S V76.2 CERVICAL CANCER SCREENING (PAP SMEAR) 04/12/2012 MARIA GUADALUPE RETAIL FINANCIAL ANALYST, TON S V76.51 COLON CANCER SCREENING 04/12/2012 MARIA GUADALUPE RETAIL FINANCIAL ANALYST, TON S 008.8 GASTROENTERITIS, VIRAL 04/12/2012 MARIA GUADALUPE RETAIL FINANCIAL ANALYST, TON S V76.10 BREAST CANCER SCREENING 04/12/2012 MARIA GUADALUPE RETAIL FINANCIAL ANALYST, TON S V76.2 CERVICAL CANCER SCREENING (PAP SMEAR) 04/12/2012 MARIA GUADALUPE RETAIL FINANCIAL ANALYST, TON S V76.51 COLON CANCER SCREENING 04/12/2012 MARIA GUADALUPE RETAIL FINANCIAL ANALYST, TON S 008.8 GASTROENTERITIS, VIRAL 04/12/2012 MARIA GUADALUPE RETAIL FINANCIAL ANALYST, TON S V76.10 BREAST CANCER SCREENING 04/12/2012 MARIA GUADALUPE RETAIL FINANCIAL ANALYST, TON S V76.2 CERVICAL CANCER SCREENING (PAP SMEAR) 04/12/2012 MARIA GUADALUPE RETAIL FINANCIAL ANALYST, TON S V76.51 COLON CANCER SCREENING 04/12/2012 CATHERINE PERALES APRN T 008.8 GASTROENTERITIS, VIRAL 04/12/2012 CATHERINE PERALES APRN T V76.10 BREAST CANCER SCREENING 04/12/2012 CATHERINE PERALES APRN T V76.2 CERVICAL CANCER SCREENING (PAP SMEAR) 04/12/2012 CATHERINE PERALES APRN T V76.51 COLON CANCER SCREENING 04/12/2012 MARIA GUADALUPE RETAIL FINANCIAL ANALYST, TON S 008.8 GASTROENTERITIS, VIRAL 04/12/2012 MARIA GUADALUPE RETAIL FINANCIAL ANALYST, TON S V76.10 BREAST CANCER SCREENING 04/12/2012 MARIA GUADALUPE RETAIL FINANCIAL ANALYST, TON S V76.2 CERVICAL CANCER SCREENING (PAP SMEAR) 04/12/2012 MARIA GUADALUPE RETAIL FINANCIAL ANALYST, TON S V76.51 COLON CANCER SCREENING 04/12/2012 MARIA GUADALUPE CHAUDHARIN, TON S 008.8 GASTROENTERITIS, VIRAL 04/12/2012 MARIA GUADALUPE RETAIL FINANCIAL ANALYST, TON S V76.10 BREAST CANCER SCREENING 04/12/2012 MARIA GUADALUPE RETAIL FINANCIAL ANALYST, TON S V76.2 CERVICAL CANCER SCREENING (PAP SMEAR) 04/12/2012 MARIA GUADALUPE RETAIL FINANCIAL ANALYST, TON S V76.51 COLON CANCER SCREENING 04/12/2012 MARIA GUADALUPE CHAUDHARIN, TON S 008.8 GASTROENTERITIS, VIRAL 04/12/2012 MARIA GUADAULPE RETAIL FINANCIAL ANALYST, TON S V76.10 BREAST CANCER SCREENING 04/12/2012 MARIA GUADALUPE RETAIL FINANCIAL ANALYST, TON S V76.2 CERVICAL CANCER SCREENING (PAP SMEAR) 04/12/2012 MARIA GUADALUPE RETAIL FINANCIAL ANALYST, TON S V76.51 COLON CANCER SCREENING 04/12/2012 MARIA GUADALUPE CHAUDHARIN, TON S 008.8 GASTROENTERITIS, VIRAL 04/12/2012 MARIA GUADALUPE RETAIL FINANCIAL ANALYST, TON S V76.10 BREAST CANCER SCREENING 04/12/2012 MARIA GUADALUPE CHAUDHARIN, TON S V76.2 CERVICAL CANCER SCREENING (PAP SMEAR) 04/12/2012 MARIA GUADALUPE RETAIL FINANCIAL ANALYST, TON S V76.51 COLON CANCER SCREENING 04/12/2012 VELASQUEZ KAUR PSYD 008.8 GASTROENTERITIS, VIRAL 04/12/2012 VELASQUEZ KAUR PSYD L V76.10 BREAST CANCER SCREENING 04/12/2012 VELASQUEZ KAUR PSYD V76.2 CERVICAL CANCER SCREENING (PAP SMEAR) 04/12/2012 VELASQUEZ KAUR PSYD V76.51 COLON CANCER SCREENING 04/12/2012 ROMANO DOJEWELS K 008.8 GASTROENTERITIS, VIRAL 04/12/2012 ROMANO DOSACHAA [...] APRN V76.51 COLON CANCER SCREENING 04/12/2012 RICHARD RETAIL FINANCIAL ANALYST, JEWELS 008.8 GASTROENTERITIS, VIRAL 04/12/2012 RICHARD RETAIL FINANCIAL ANALYST, JEWELS V76.10 BREAST CANCER SCREENING 04/12/2012 RICHARD RETAIL FINANCIAL ANALYST, JEWELS V76.2 CERVICAL CANCER SCREENING (PAP SMEAR) 04/12/2012 RICHARD RETAIL FINANCIAL ANALYST, JEWELS V76.51 COLON CANCER SCREENING 04/12/2012 RICHARD RETAIL FINANCIAL ANALYST, JEWELS 008.8 GASTROENTERITIS, VIRAL 04/12/2012 RICHARD RETAIL FINANCIAL ANALYST, JEWELS V76.10 BREAST CANCER SCREENING 04/12/2012 RICHARD RETAIL FINANCIAL ANALYST, JEWELS V76.2 CERVICAL CANCER SCREENING (PAP SMEAR) 04/12/2012 RICHARD RETAIL FINANCIAL ANALYST, JEWELS V76.51 COLON CANCER SCREENING 04/12/2012 RICHARD RETAIL FINANCIAL ANALYST, JEWELS 008.8 GASTROENTERITIS, VIRAL 04/12/2012 RICHARD RETAIL FINANCIAL ANALYST, JEWELS V76.10 BREAST CANCER SCREENING 04/12/2012 RICHARD RETAIL FINANCIAL ANALYST, JEWELS V76.2 CERVICAL CANCER SCREENING (PAP SMEAR) 04/12/2012 RICHARD RETAIL FINANCIAL ANALYST, JEWELS V76.51 COLON CANCER SCREENING 04/17/2012 JEWELS [...] MD 528.2 ORAL APHTHAE 04/17/2012 MARIA GUADALUPE RETAIL FINANCIAL ANALYST, TON S 528.2 ORAL APHTHAE 04/17/2012 MARIA GUADALUPE RETAIL FINANCIAL ANALYST, TON S 528.2 ORAL APHTHAE 04/17/2012 MARIA GUADALUPE RETAIL FINANCIAL ANALYST, TON S 528.2 ORAL APHTHAE 04/17/2012 MARIA GUADALUPE RETAIL FINANCIAL ANALYST, TON S 528.2 ORAL APHTHAE 04/17/2012 MARIA GUADALUPE RETAIL FINANCIAL ANALYST, TON S 528.2 ORAL APHTHAE 04/17/2012 CATHERINE PERALES APRN 528.2 ORAL APHTHAE 04/17/2012 MARIA GUADALUPE RETAIL FINANCIAL ANALYST, TON S 528.2 ORAL APHTHAE 04/17/2012 MARIA GUADALUPE RETAIL FINANCIAL ANALYST, TON S 528.2 ORAL APHTHAE 04/17/2012 MARIA GUADALUPE VAUGHN, TON S 528.2 ORAL APHTHAE 04/17/2012 MARIA GUADALUPE RETAIL FINANCIAL ANALYST, TON S 528.2 ORAL APHTHAE 04/17/2012 VELASQUEZ KAUR PSYD L 528.2 ORAL APHTHAE 04/17/2012 JEWELS ROMANO DO 528.2 ORAL APHTHAE 04/17/2012 VELASQUEZ KAUR PSYD L 528.2 ORAL APHTHAE 04/17/2012 SYMONE POST APRN 528.2 ORAL APHTHAE 04/17/2012 RICHARD RETAIL FINANCIAL ANALYST, JEWELS 528.2 ORAL APHTHAE 04/17/2012 RICHARD RETAIL FINANCIAL ANALYST, JEWELS 528.2 ORAL APHTHAE 04/17/2012 RICHARD RETAIL FINANCIAL ANALYST, JEWELS 528.2 ORAL APHTHAE 04/20/2012 Ot 528.9 ORAL SOFT TISSUE DIS NEC 04/22/2012 Ot 529.0 GLOSSITIS 07/01/2012 535.50 GASTRITIS UNSPEC 07/01/2012 729.1 MYALGIA AND MYOSITIS UNSPECIFIED 07/01/2012 535.50 GASTRITIS UNSPEC 07/01/2012 729.1 MYALGIA AND MYOSITIS UNSPECIFIED 07/01/2012 MARIA GUADALUPE RETAIL FINANCIAL ANALYST, TON S 535.50 GASTRITIS UNSPEC 07/01/2012 MARIA [...] VALENZUELA MD 535.50 GASTRITIS UNSPEC 07/01/2012 ISAIAS VALENZEULA MD 729.1 MYALGIA AND MYOSITIS UNSPECIFIED 07/01/2012 [...] MYALGIA AND MYOSITIS UNSPECIFIED 07/01/2012 MARIA GUADALUPE RETAIL FINANCIAL ANALYST, TON S 535.50 GASTRITIS UNSPEC 07/01/2012 MARIA [...] RAMOS APRN 535.50 GASTRITIS UNSPEC 07/01/2012 RICHARD RETAIL FINANCIAL ANALYST, JEWELS 729.1 MYALGIA AND MYOSITIS UNSPECIFIED 07/05/2012 Ot 729.5 PAIN IN LIMB 08/04/2012 MARJORIE STRONG APRN 782.3 EDEMA 08/04/2012 782.3 EDEMA 08/04/2012 782.3 EDEMA 08/04/2012 782.3 EDEMA 08/04/2012 MARIA GUADALUPE VAUGHN, TON S 782.3 EDEMA 08/04/2012 MARIA GUADALUPE VAUGHN, TON S 782.3 EDEMA 08/04/2012 ISAIAS VALENZUELA MD 782.3 EDEMA 08/04/2012 MARIA GUADALUPE RETAIL FINANCIAL ANALYST, TON S 782.3 EDEMA 08/04/2012 MARIA GUADALUPE VAUGHN, TON S 782.3 EDEMA 08/04/2012 MARIA GUADALUPE RETAIL FINANCIAL ANALYST, TON S 782.3 EDEMA 08/04/2012 MARIA GUADALUPE RETAIL FINANCIAL ANALYST, TON S 782.3 EDEMA 08/04/2012 MARIA GUADALUPE VAUGHN, TON S 782.3 EDEMA 08/04/2012 CATHERINE PERALES APRN 782.3 EDEMA 08/04/2012 MARIA GUADALUPE RETAIL FINANCIAL ANALYST, TON S 782.3 EDEMA 08/04/2012 MARIA GUADALUPE VAUGHN, TON S 782.3 EDEMA 08/04/2012 MARIA GUADALUPE CHAUDHARIN, TON S 782.3 EDEMA 08/04/2012 MARIA GUADALUPE RETAIL FINANCIAL ANALYST, TON S 782.3 EDEMA 08/04/2012 VELASQUEZ KAUR PSYD 782.3 EDEMA 08/04/2012 JEWELS ROMANO DO 782.3 EDEMA 08/04/2012 VELASQUEZ KAUR PSYD 782.3 EDEMA 08/04/2012 SYMONE POST APRN 782.3 EDEMA 08/04/2012 JEWELS RAMOS APRN 782.3 EDEMA 08/04/2012 RICHARD VAUGHN, JEWELS 782.3 EDEMA 08/04/2012 RICHARD RETAIL FINANCIAL ANALYSTJEWELS Ramos 782.3 EDEMA 08/18/2012 780.4 DIZZINESS AND VERTIGO 08/18/2012 780.4 DIZZINESS AND VERTIGO 08/18/2012 780.4 DIZZINESS AND VERTIGO 08/18/2012 MARIA GUADALUPE RETAIL FINANCIAL ANALYST, TON S 780.4 DIZZINESS AND VERTIGO 08/18/2012 MARIA GUADALUPE RETAIL FINANCIAL ANALYST, TON S 780.4 DIZZINESS AND VERTIGO 08/18/2012 ISAIAS VALENZUELA MD 780.4 DIZZINESS AND VERTIGO 08/18/2012 MARIA GUADALUPE RETAIL FINANCIAL ANALYST, TON S 780.4 DIZZINESS AND VERTIGO 08/18/2012 MARIA GUADALUPE RETAIL FINANCIAL ANALYST, TON S 780.4 DIZZINESS AND VERTIGO 08/18/2012 MARIA GUADALUPE RETAIL FINANCIAL ANALYST, TON S 780.4 DIZZINESS AND VERTIGO 08/18/2012 MARIA GUADALUPE RETAIL FINANCIAL ANALYST, TON S 780.4 DIZZINESS AND VERTIGO 08/18/2012 MARIA GUADALUPE RETAIL FINANCIAL ANALYST, TON S 780.4 DIZZINESS AND VERTIGO 08/18/2012 CATHERINE PERALES APRN 780.4 DIZZINESS AND VERTIGO 08/18/2012 MARIA GUADALUPE RETAIL FINANCIAL ANALYST, TON S 780.4 DIZZINESS AND VERTIGO 08/18/2012 MARIA GUADALUPE RETAIL FINANCIAL ANALYST, TON S 780.4 DIZZINESS AND VERTIGO 08/18/2012 MARIA GUADALUPE RETAIL FINANCIAL ANALYST, TON S 780.4 DIZZINESS AND VERTIGO 08/18/2012 MARIA GUADALUPE RETAIL FINANCIAL ANALYST, TON S 780.4 DIZZINESS AND VERTIGO 08/18/2012 VELASQUEZ KAUR PSYD 780.4 DIZZINESS AND VERTIGO 08/18/2012 JEWELS ROMANO DO 780.4 DIZZINESS AND VERTIGO 08/18/2012 VELASQUEZ KAUR PSYD 780.4 DIZZINESS AND VERTIGO 08/18/2012 SYMONE POST APRN 780.4 DIZZINESS AND VERTIGO 08/18/2012 RICHARD RETAIL FINANCIAL ANALYSTJEWELS Ramos 780.4 DIZZINESS AND VERTIGO 08/18/2012 RICHARD RETAIL FINANCIAL ANALYSTJEWELS Ramos 780.4 DIZZINESS AND VERTIGO 08/18/2012 RICHARD RETAIL FINANCIAL ANALYST, JEWELS 780.4 DIZZINESS AND VERTIGO 11/03/2012 530.81 GERD 11/03/2012 789.06 ABDOMINAL PAIN EPIGASTRIC 11/03/2012 530.81 GERD 11/03/2012 789.06 ABDOMINAL PAIN EPIGASTRIC 11/03/2012 MARIA GUADALUPE RETAIL FINANCIAL ANALYST, TON S 530.81 GERD 11/03/2012 MARIA GUADALUPE RETAIL FINANCIAL ANALYST, TON S 789.06 ABDOMINAL PAIN EPIGASTRIC 11/03/2012 MARIA GUADALUPE RETAIL FINANCIAL ANALYST, TON S 530.81 GERD 11/03/2012 MARIA GUADALUPE RETAIL FINANCIAL ANALYST, TON S 789.06 ABDOMINAL PAIN EPIGASTRIC 11/03/2012 ISAIAS VALENZUELA MD 530.81 GERD 11/03/2012 ISAIAS VALENZUELA MD 789.06 ABDOMINAL PAIN EPIGASTRIC 11/03/2012 MARIA GUADALUPE RETAIL FINANCIAL ANALYST, TON S 530.81 GERD 11/03/2012 MARIA GUADALUPE RETAIL FINANCIAL ANALYST, TON S 789.06 ABDOMINAL PAIN EPIGASTRIC 11/03/2012 MARIA GUADALUPE RETAIL FINANCIAL ANALYST, TON S 530.81 GERD 11/03/2012 MARIA GUADALUPE RETAIL FINANCIAL ANALYST, TON S 789.06 ABDOMINAL PAIN EPIGASTRIC 11/03/2012 MARIA GUADALUPE RETAIL FINANCIAL ANALYST, TON S 530.81 GERD 11/03/2012 MARIA GUADALUPE RETAIL FINANCIAL ANALYST, TON S 789.06 ABDOMINAL PAIN EPIGASTRIC 11/03/2012 MARIA GUADALUPE RETAIL FINANCIAL ANALYST, TON S 530.81 GERD 11/03/2012 MARIA GUADALUPE RETAIL FINANCIAL ANALYST, TON S 789.06 ABDOMINAL PAIN EPIGASTRIC 11/03/2012 MARIA GUADALUPE RETAIL FINANCIAL ANALYST, TON S 530.81 GERD 11/03/2012 MARIA GUADALUPE RETAIL FINANCIAL ANALYST, TON S 789.06 ABDOMINAL PAIN EPIGASTRIC 11/03/2012 DIAZ VAUGHN, CATHERINE T 530.81 GERD 11/03/2012 DIAZ RETAIL FINANCIAL ANALYST, CATHERINE T 789.06 ABDOMINAL PAIN EPIGASTRIC 11/03/2012 MARIA GUADALUPE RETAIL FINANCIAL ANALYST, TON S 530.81 GERD 11/03/2012 MARIA GUADALUPE RETAIL FINANCIAL ANALYST, TON S 789.06 ABDOMINAL PAIN EPIGASTRIC 11/03/2012 MARIA GUADALUPE RETAIL FINANCIAL ANALYST, TON S 530.81 GERD 11/03/2012 MARIA GUADALUPE RETAIL FINANCIAL ANALYST, TON S 789.06 ABDOMINAL PAIN EPIGASTRIC 11/03/2012 MARIA GUADALUPE RETAIL FINANCIAL ANALYST, TON S 530.81 GERD 11/03/2012 MARIA GUADALUPE RETAIL FINANCIAL ANALYST, TON S 789.06 ABDOMINAL PAIN EPIGASTRIC 11/03/2012 MARIA GUADALUPE VAUGHN, TON S 530.81 GERD 11/03/2012 MARIA GUADALUPE VAUGHN, TON S 789.06 ABDOMINAL PAIN EPIGASTRIC 11/03/2012 VELASQUEZ KAUR PSYD ANN L 530.81 GERD 11/03/2012 VELASQUEZ KAUR PSYD L 789.06 ABDOMINAL PAIN EPIGASTRIC 11/03/2012 ROMANO DO, JEWELS K 530.81 GERD 11/03/2012 ROMAON DO, JEWELS K 789.06 ABDOMINAL PAIN EPIGASTRIC 11/03/2012 VELASQUEZ KAUR PSYD ANN L 530.81 GERD 11/03/2012 VELASQUEZ KAUR PSYD L 789.06 ABDOMINAL PAIN EPIGASTRIC 11/03/2012 SYMONE POST APRN 530.81 GERD 11/03/2012 SYMONE POST APRN 789.06 ABDOMINAL PAIN EPIGASTRIC 11/03/2012 RICHARD RETAIL FINANCIAL ANALYST, JEWELS 530.81 GERD 11/03/2012 RICHARD RETAIL FINANCIAL ANALYST, JEWELS 789.06 ABDOMINAL PAIN EPIGASTRIC 11/03/2012 RICHARD RETAIL FINANCIAL ANALYST, JEWELS 530.81 GERD 11/03/2012 RICHARD RETAIL FINANCIAL ANALYST, JEWELS 789.06 ABDOMINAL PAIN EPIGASTRIC 11/03/2012 RICHARD RETAIL FINANCIAL ANALYST, JEWELS 530.81 GERD 11/03/2012 RICHARD RETAIL FINANCIAL ANALYST, JEWELS 789.06 ABDOMINAL PAIN EPIGASTRIC 02/21/2013 MARIA GUADALUPE VAUGHN, TON S 611.6 GALACTORRHEA 02/21/2013 MARIA GUADALUPE VAUGHN, TON S V58.69 HIGH RISK MEDICATION 02/21/2013 ISAIAS VALENZUELA MD 611.6 GALACTORRHEA 02/21/2013 ISAIAS VALENZUELA MD V58.69 HIGH RISK MEDICATION 02/21/2013 MARIA GUADALUPE RETAIL FINANCIAL ANALYST, TON S 611.6 GALACTORRHEA 02/21/2013 MARIA GUADALUPEGARY VAUGHN, TON S V58.69 HIGH RISK MEDICATION 02/21/2013 MARIA GUADALUPE RETAIL FINANCIAL ANALYST, TON S 611.6 GALACTORRHEA 02/21/2013 MARIA GUADALUPE VAUGHN, TON S V58.69 HIGH RISK MEDICATION 02/21/2013 MARIA GUADALUPE VAUGHN, TON S 611.6 GALACTORRHEA 02/21/2013 MARIA GUADALUPE RETAIL FINANCIAL ANALYST, TON S V58.69 HIGH RISK MEDICATION 02/21/2013 MARIA GUADALUPE RETAIL FINANCIAL ANALYST, TON S 611.6 GALACTORRHEA 02/21/2013 MARIA GUADALUPE RETAIL FINANCIAL ANALYST, TON S V58.69 HIGH RISK MEDICATION 02/21/2013 MARIA GUADALUPE RETAIL FINANCIAL ANALYST, TON S 611.6 GALACTORRHEA 02/21/2013 MARIA GUADALUPE RETAIL FINANCIAL ANALYST, TON S V58.69 HIGH RISK MEDICATION 02/21/2013 DIAZ VAUGHN CATHERINE T 611.6 GALACTORRHEA 02/21/2013 DIAZ RETAIL FINANCIAL ANALYST, CATHERINE T V58.69 HIGH RISK MEDICATION 02/21/2013 MARIA GUADALUPE RETAIL FINANCIAL ANALYST, TON S 611.6 GALACTORRHEA 02/21/2013 MARIA GUADALUPE RETAIL FINANCIAL ANALYST, TON S V58.69 HIGH RISK MEDICATION 02/21/2013 MARIA GUADALUPE RETAIL FINANCIAL ANALYST, TON S 611.6 GALACTORRHEA 02/21/2013 MARIA GUADALUPE RETAIL FINANCIAL ANALYST, TON S V58.69 HIGH RISK MEDICATION 02/21/2013 MARIA GUADALUPE RETAIL FINANCIAL ANALYST, TON S 611.6 GALACTORRHEA 02/21/2013 MARIA GUADALUPE RETAIL FINANCIAL ANALYST, TON S V58.69 HIGH RISK MEDICATION 02/21/2013 MARIA GUADALUPE RETAIL FINANCIAL ANALYST, TON S 611.6 GALACTORRHEA 02/21/2013 MARIA GUADALUPE RETAIL FINANCIAL ANALYST, TON S V58.69 HIGH RISK MEDICATION 02/21/2013 [...] RICHARD JOHANA JEWELS 611.6 GALACTORRHEA 02/21/2013 RICHARD RETAIL FINANCIAL ANALYST, JEWELS V58.69 HIGH RISK MEDICATION 02/21/2013 RICHARD RETAIL FINANCIAL ANALYST, JEWELS 611.6 GALACTORRHEA 02/21/2013 RICHARD RETAIL FINANCIAL ANALYST, JEWELS V58.69 HIGH RISK MEDICATION 02/21/2013 RICHARD RETAIL FINANCIAL ANALYST, JEWELS 611.6 GALACTORRHEA 02/21/2013 RICHARD RETAIL FINANCIAL ANALYST, JEWELS V58.69 HIGH RISK MEDICATION 03/08/2013 ISAIAS VALENZUELA MD 461.9 SINUSITIS ACUTE 03/08/2013 MARIA GUADALUPE RETAIL FINANCIAL ANALYST, TON S 461.9 SINUSITIS ACUTE 03/08/2013 MARIA GUADALUPE RETAIL FINANCIAL ANALYST, TON S 461.9 SINUSITIS ACUTE 03/08/2013 MARIA GUADALUPE RETAIL FINANCIAL ANALYST, TON S 461.9 SINUSITIS ACUTE 03/08/2013 MARIA GUADALUPE RETAIL FINANCIAL ANALYST, TON S 461.9 SINUSITIS ACUTE 03/08/2013 MARIA GUADALUPE RETAIL FINANCIAL ANALYST, TON S 461.9 SINUSITIS ACUTE 03/08/2013 CATHERINE PERALES APRN 461.9 SINUSITIS ACUTE 03/08/2013 MARIA GUADALUPE RETAIL FINANCIAL ANALYST, TON S 461.9 SINUSITIS ACUTE 03/08/2013 MARIA GUADALUPE RETAIL FINANCIAL ANALYST, TON S 461.9 SINUSITIS ACUTE 03/08/2013 MARIA GUADALUPE RETAIL FINANCIAL ANALYST, TON S 461.9 SINUSITIS ACUTE 03/08/2013 MARIA GUADALUPE RETAIL FINANCIAL ANALYST, TON S 461.9 SINUSITIS ACUTE 03/08/2013 VELASQUEZ KAUR PSYD 461.9 SINUSITIS ACUTE 03/08/2013 JEWELS ROMANO DO 461.9 SINUSITIS ACUTE 03/08/2013 VELASQUEZ KAUR PSYD 461.9 SINUSITIS ACUTE 03/08/2013 SYMONE POST APRN 461.9 SINUSITIS ACUTE 03/08/2013 RICHARD RETAIL FINANCIAL ANALYST, JEWELS 461.9 SINUSITIS ACUTE 03/08/2013 RICHARD RETAIL FINANCIAL ANALYST, JEWELS 461.9 SINUSITIS ACUTE 03/08/2013 RICHARD RETAIL FINANCIAL ANALYST, JEWELS 461.9 SINUSITIS ACUTE 03/22/2013 MARIA GUADALUPE RETAIL FINANCIAL ANALYST, TON S 627.2 hot flashes 03/22/2013 MARIA GUADALUPE RETAIL FINANCIAL ANALYST, TON S 627.2 hot flashes 03/22/2013 MARIA GUADALUPE RETAIL FINANCIAL ANALYST, TON S 627.2 HOT FLASHES 03/22/2013 MARIA GUADALUPE RETAIL FINANCIAL ANALYST, TON S 627.2 HOT FLASHES 03/22/2013 MARIA GUADALUPE RETAIL FINANCIAL ANALYST, TON S 627.2 HOT FLASHES 03/22/2013 CATHERINE PERALES APRN 627.2 HOT FLASHES 03/22/2013 MARIA GUADALUPE RETAIL FINANCIAL ANALYST, TON S 627.2 HOT FLASHES 03/22/2013 MARIA GUADALUPE RETAIL FINANCIAL ANALYST, TON S 627.2 HOT FLASHES 03/22/2013 MARIA GUADALUPE RETAIL FINANCIAL ANALYST, TON S 627.2 HOT FLASHES 03/22/2013 MARI AGUADALUPE RETAIL FINANCIAL ANALYST, TON S 627.2 HOT FLASHES 03/22/2013 VELASQUEZ KAUR PSYD 627.2 HOT FLASHES 03/22/2013 JUAN ANTONIO OTTOJEWELS K 627.2 HOT FLASHES 03/22/2013 VELASQUEZ KAUR PSYD 627.2 HOT FLASHES 03/22/2013 POST RETAIL FINANCIAL ANALYST, SYMONE D 627.2 HOT FLASHES 03/22/2013 RICHARD RETAIL FINANCIAL ANALYST, JEWELS 627.2 HOT FLASHES 03/22/2013 RICHARD RETAIL FINANCIAL ANALYST, JEWELS 627.2 HOT FLASHES 03/22/2013 RICHARD RETAIL FINANCIAL ANALYST, JEWELS 627.2 HOT FLASHES 03/29/2013 MARIA GUADALUPE RETAIL FINANCIAL ANALYST, TON S 300.00 ANXIETY UNSPEC 03/29/2013 MARIA GUADALUPE RETAIL FINANCIAL ANALYST, TON S 300.00 ANXIETY UNSPEC 03/29/2013 MARIA GUADALUPE RETAIL FINANCIAL ANALYST, TON S 300.00 ANXIETY UNSPEC 03/29/2013 MARIA GUADALUPE RETAIL FINANCIAL ANALYST, TON S 300.00 ANXIETY UNSPEC 03/29/2013 MARIA GUADALUPE RETAIL FINANCIAL ANALYST, TON S 300.00 ANXIETY UNSPEC 03/29/2013 CATHERINE PERALES APRN 300.00 ANXIETY UNSPEC 03/29/2013 MARIA GUADALUPE RETAIL FINANCIAL ANALYST, TON S 300.00 ANXIETY UNSPEC 03/29/2013 MARIA GUADALUPE RETAIL FINANCIAL ANALYST, TON S 300.00 ANXIETY UNSPEC 03/29/2013 MARIA GUADALUPE RETAIL FINANCIAL ANALYST, TON S 300.00 ANXIETY UNSPEC 03/29/2013 MARIA GUADALUPE RETAIL FINANCIAL ANALYST, TON S 300.00 ANXIETY UNSPEC 03/29/2013 VELASQUEZ KAUR PSYD L 300.00 ANXIETY UNSPEC 03/29/2013 JEWELS ROMANO DO 300.00 ANXIETY UNSPEC 03/29/2013 VELASQUEZ KAUR PSYD L 300.00 ANXIETY UNSPEC 03/29/2013 SYMONE POST APRN 300.00 ANXIETY UNSPEC 03/29/2013 RICHARD RETAIL FINANCIAL ANALYST, JEWELS 300.00 ANXIETY UNSPEC 03/29/2013 RICHARD RETAIL FINANCIAL ANALYST, JEWELS 300.00 ANXIETY UNSPEC 03/29/2013 RICHARD RETAIL FINANCIAL ANALYST, JEWELS 300.00 ANXIETY UNSPEC 05/23/2013 BRITNEY LERMA [...] JOINT INVOLVING LOWER LEG 05/23/2013 RICHARD VAUGHN JEEWLS 719.47 PAIN- FOOT 06/09/2013 FRANKLYN HERNÁNDEZ MD Ot 558.9 NONINF GASTROENTERIT NEC 06/09/2013 FRANKLYN HERNÁNDEZ MD Ot 787.01 NAUSEA WITH VOMITING 10/06/2013 TON LERMA APRN S 692.6 POISON REBA 10/06/2013 TON LERMA APRN S 692.6 POISON REBA 10/06/2013 TON LERMA APRN S 692.6 POISON REBA 10/06/2013 CATHERINE PERALES APRN 692.6 POISON REBA 10/06/2013 TON LERMA APRN S 692.6 POISON REBA 10/06/2013 MARIA GUADALUPE RETAIL FINANCIAL ANALYST, TON S 692.6 POISON REBA 10/06/2013 MARIA GUADALUPE VAUGHN, TON S 692.6 POISON REBA 10/06/2013 MARIA GUADALUPE VAUGHN, TON S 692.6 POISON REBA 10/06/2013 VELASQUEZ KAUR PSYD L 692.6 POISON REBA 10/06/2013 ROMANO DO, JEWELS K 692.6 POISON REBA 10/06/2013 VELASQUEZ KAUR PSYD L 692.6 POISON REBA 10/06/2013 SYMONE POST APRN 692.6 POISON REBA 10/06/2013 RICHARD RETAIL FINANCIAL ANALYST, JEWELS 692.6 POISON REBA 10/06/2013 RICHARD RETAIL FINANCIAL ANALYST, JEWELS 692.6 POISON REBA 10/06/2013 RICHARD RETAIL FINANCIAL ANALYST, JEWELS 692.6 POISON REBA 11/09/2013 MARIA GUADALUPE VAUGHN, TON S 787.91 DIARRHEA 11/09/2013 MARIA GUADALUPE VAUGHN, TON S 787.91 DIARRHEA 11/09/2013 CATHERINE PERALES APRN 787.91 DIARRHEA 11/09/2013 MARIA GUADALUPE RETAIL FINANCIAL ANALYST, TON S 787.91 DIARRHEA 11/09/2013 MARIA GUADALUPE RETAIL FINANCIAL ANALYST, TON S 787.91 DIARRHEA 11/09/2013 MARIA GUADALUPE RETAIL FINANCIAL ANALYST, TON S 787.91 DIARRHEA 11/09/2013 MARIA GUADALUPE RETAIL FINANCIAL ANALYST, TON S 787.91 DIARRHEA 11/09/2013 VELASQUEZ KAUR PSYD 787.91 DIARRHEA 11/09/2013 ROMANO JEWELS OTTO K 787.91 DIARRHEA 11/09/2013 VELASQUEZ KAUR PSYD L 787.91 DIARRHEA 11/09/2013 SYMONE POST APRN 787.91 DIARRHEA 11/09/2013 RICHARD RETAIL FINANCIAL ANALYST, JEWELS 787.91 DIARRHEA 11/09/2013 RICHARD RETAIL FINANCIAL ANALYST, JEWELS 787.91 DIARRHEA 11/09/2013 RICHARD RETAIL FINANCIAL ANALYST, JEWELS 787.91 DIARRHEA 11/29/2013 MARIA GUADALUPE VAUGHN, TON S 790.6 Liver Function Test, Abnormal 11/29/2013 MARIA GUADALUPEGARY CHAUDHARIN, TON S 790.6 Liver Function Test, Abnormal 11/29/2013 DIAZ RETAIL FINANCIAL ANALYST, CATHERINE T 790.6 Liver Function Test, Abnormal 11/29/2013 MARIA GUADALUPE RETAIL FINANCIAL ANALYST, TON S 790.6 Liver Function Test, Abnormal 11/29/2013 MARIA GUADALUPE RETAIL FINANCIAL ANALYST, TON S 790.6 Liver Function Test, Abnormal 11/29/2013 MARIA GUADALUPE RETAIL FINANCIAL ANALYST, TON S 790.6 Liver Function Test, Abnormal 11/29/2013 MARIA GUADALUPE RETAIL FINANCIAL ANALYST, TON S 790.6 Liver Function Test, Abnormal 11/29/2013 VELASQUEZ KAUR PSYD 790.6 Liver Function Test, Abnormal 11/29/2013 JEWELS ROMANO DO 790.6 Liver Function Test, Abnormal 11/29/2013 VELASQUEZ KAUR PSYD 790.6 Liver Function Test, Abnormal 11/29/2013 POST RETAIL FINANCIAL ANALYST, SYMONE D 790.6 Liver Function Test, Abnormal 11/29/2013 RICHARD RETAIL FINANCIAL ANALYST, JEWELS 790.6 Liver Function Test, Abnormal 11/29/2013 RICHARD RETAIL FINANCIAL ANALYST, JEWELS 790.6 Liver Function Test, Abnormal 11/29/2013 RICHARD RETAIL FINANCIAL ANALYST, JEWELS 790.6 Liver Function Test, Abnormal 12/14/2013 DIAZ RETAIL FINANCIAL ANALYST, CATHERINE T 466.0 BRONCHITIS, ACUTE 12/14/2013 DIAZ RETAIL FINANCIAL ANALYSTCATHERINE Ramos T 724.2 BACK PAIN, LOWER 12/14/2013 MARIA GUADALUPE RETAIL FINANCIAL ANALYST, TON S 466.0 BRONCHITIS, ACUTE 12/14/2013 MARIA GUADALUPE RETAIL FINANCIAL ANALYST, TON S 724.2 BACK PAIN, LOWER 12/14/2013 MARIA GUADALUPE RETAIL FINANCIAL ANALYST, TON S 466.0 BRONCHITIS, ACUTE 12/14/2013 MARIA GUADALUPE RETAIL FINANCIAL ANALYST, TON S 724.2 BACK PAIN, LOWER 12/14/2013 MARIA GUADALUPE RETAIL FINANCIAL ANALYST, TON S 466.0 BRONCHITIS, ACUTE 12/14/2013 MARIA GUADALUPE RETAIL FINANCIAL ANALYST, TON S 724.2 BACK PAIN, LOWER 12/14/2013 MARIA GUADALUPE RETAIL FINANCIAL ANALYST, TON S 466.0 BRONCHITIS, ACUTE 12/14/2013 MARIA GUADALUPE RETAIL FINANCIAL ANALYST, TON S 724.2 BACK PAIN, LOWER 12/14/2013 MCCLEEARY PSYD, GERONIMO L 466.0 BRONCHITIS, ACUTE 12/14/2013 NATASHA PERALES, GERONIMO L 724.2 BACK PAIN, LOWER 12/14/2013 ROMANO DO, JEWELS K 466.0 BRONCHITIS, ACUTE 12/14/2013 ROMANO DO, JEWELS K 724.2 BACK PAIN, LOWER 12/14/2013 NATASHA PERALES, GERONIMO L 466.0 BRONCHITIS, ACUTE 12/14/2013 NATASHA PERALES, GERONIMO L 724.2 BACK PAIN, LOWER 12/14/2013 POST RETAIL FINANCIAL ANALYST, SYMONE D 466.0 BRONCHITIS, ACUTE 12/14/2013 POST RETAIL FINANCIAL ANALYST, SYMONE D 724.2 BACK PAIN, LOWER 12/14/2013 RICHARD RETAIL FINANCIAL ANALYST, JEWELS 466.0 BRONCHITIS, ACUTE 12/14/2013 RICHARD RETAIL FINANCIAL ANALYST, JEWELS 724.2 BACK PAIN, LOWER 12/14/2013 RICHARD RETAIL FINANCIAL ANALYST, JEWELS 466.0 BRONCHITIS, ACUTE 12/14/2013 RICHARD RETAIL FINANCIAL ANALYST, JEWELS 724.2 BACK PAIN, LOWER 12/14/2013 RICHARD RETAIL FINANCIAL ANALYST, JEWELS 466.0 BRONCHITIS, ACUTE 12/14/2013 RICHARD RETAIL FINANCIAL ANALYST, JEWELS 724.2 BACK PAIN, LOWER 12/29/2013 MARIA GUADALUPE RETAIL FINANCIAL ANALYST, TON S 461.9 SINUSITIS ACUTE 12/29/2013 MARIA GUADALUPE RETAIL FINANCIAL ANALYST, TON S 788.1 DYSURIA 12/29/2013 MARIA GUADALUPE RETAIL FINANCIAL ANALYST, TON S 461.9 SINUSITIS ACUTE 12/29/2013 MARIA GUADALUPE RETAIL FINANCIAL ANALYST, TON S 788.1 DYSURIA 12/29/2013 MARIA GUADALUPE RETAIL FINANCIAL ANALYST, TON S 461.9 SINUSITIS ACUTE 12/29/2013 MARIA GUADALUPE RETAIL FINANCIAL ANALYST, TON S 788.1 DYSURIA 12/29/2013 MARIA GUADALUPE RETAIL FINANCIAL ANALYST, TON S 461.9 SINUSITIS ACUTE 12/29/2013 MARIA GUADALUPE RETAIL FINANCIAL ANALYST, TON S 788.1 DYSURIA 12/29/2013 VELASQUEZ KAUR PSYD ANN L 461.9 SINUSITIS ACUTE 12/29/2013 VELASQUEZ KAUR PSYD ANN L 788.1 DYSURIA 12/29/2013 ROMANO DO, JEWELS K 461.9 SINUSITIS ACUTE 12/29/2013 JEWELS ROMANO DO 788.1 DYSURIA 12/29/2013 VELASQUEZ KAUR PSYD 461.9 SINUSITIS ACUTE 12/29/2013 VELASQUEZ KAUR PSYD 788.1 DYSURIA 12/29/2013 SYMONE POST APRN 461.9 SINUSITIS ACUTE 12/29/2013 SYMONE POST APRN 788.1 DYSURIA 12/29/2013 RICHARD RETAIL FINANCIAL ANALYST, JEWELS 461.9 SINUSITIS ACUTE 12/29/2013 RICHARD RETAIL FINANCIAL ANALYST, JEWELS 788.1 DYSURIA 12/29/2013 RICHARD RETAIL FINANCIAL ANALYST, JEWELS 461.9 SINUSITIS ACUTE 12/29/2013 RICHARD RETAIL FINANCIAL ANALYST, JEWELS 788.1 DYSURIA 12/29/2013 RICHARD RETAIL FINANCIAL ANALYST, JEWELS 461.9 SINUSITIS ACUTE 12/29/2013 RICHARD RETAIL FINANCIAL ANALYST, JEWELS 788.1 DYSURIA 02/02/2014 MARIA GUADALUPE VAUGHN TON S 719.46 PAIN- KNEE 02/02/2014 MARIA GUADALUPE VAUGHN TON S 719.46 PAIN- KNEE 02/02/2014 VELASQUEZ KAUR PSYD 719.46 PAIN- KNEE 02/02/2014 JEWELS ROMANO DO 719.46 PAIN- KNEE 02/02/2014 VELASQUEZ KAUR PSYD L 719.46 PAIN- KNEE 02/02/2014 SYMONE POST APRN 719.46 PAIN- KNEE 02/02/2014 RICHARD RETAIL FINANCIAL ANALYST, JEWELS 719.46 PAIN- KNEE 02/02/2014 RICHARD RETAIL FINANCIAL ANALYST, JEWELS 719.46 PAIN- KNEE 02/02/2014 RICHARD RETAIL FINANCIAL ANALYST, JEWELS 719.46 PAIN- KNEE 03/15/2014 VELASQUEZ KAUR PSYD 309.81 AN PTSD 03/15/2014 VELASQUEZ KAUR PSYD 311 DEPRESSIVE DISORDER NOS 03/15/2014 JEWELS ROMANO DO 309.81 AN PTSD 03/15/2014 JEWELS ROMANO DO 311 DEPRESSIVE DISORDER NOS 03/15/2014 VELASQUEZ KAUR PSYD L 309.81 AN PTSD 03/15/2014 VELASQUEZ KAUR PSYD L 311 DEPRESSIVE DISORDER NOS 03/15/2014 SEJAL RETAIL FINANCIAL ANALYSTSYMONE Ramos 309.81 AN PTSD 03/15/2014 POST MAUREEN VAUGHNON Benjie 311 DEPRESSIVE DISORDER NOS 03/15/2014 RICHARD RETAIL FINANCIAL ANALYST, JEWELS 309.81 AN PTSD 03/15/2014 RICHARD RETAIL FINANCIAL ANALYST, JEWELS 311 DEPRESSIVE DISORDER NOS 03/15/2014 RICHARD RETAIL FINANCIAL ANALYST, JEWELS 309.81 AN PTSD 03/15/2014 RICHARD RETAIL FINANCIAL ANALYST, JEWELS 311 DEPRESSIVE DISORDER NOS 03/15/2014 RICHARD RETAIL FINANCIAL ANALYST, JEWELS 309.81 AN PTSD 03/15/2014 RICHARD RETAIL FINANCIAL ANALYST, JEWELS 311 DEPRESSIVE DISORDER NOS 05/29/2014 POSTSYMONE Ventura APRN V74.1 TB SCREENING 05/29/2014 RICHARD RETAIL FINANCIAL ANALYST, JEWELS V74.1 TB SCREENING 05/29/2014 RICHARD RETAIL FINANCIAL ANALYST, JEWELS V74.1 TB SCREENING 05/29/2014 RICHARD RETAIL FINANCIAL ANALYST, JEWELS V74.1 TB SCREENING 06/26/2014 Ot 722.4 06/26/2014 Ot 530.81 06/26/2014 Ot 574.20 06/26/2014 Ot V72.63 06/26/2014 Ot V72.81 06/26/2014 Ot V74.8 06/26/2014 MARJORIE STRONG RETAIL FINANCIAL ANALYST Ot 789.06 06/26/2014 DERECK ALVAREZ [facility] Ot 611.71 06/26/2014 TON LERMA [facility] Ot 719.46 06/28/2014 Ot 401.9 06/28/2014 Ot 717.7 06/28/2014 Ot 727.43 06/28/2014 Ot 733.92 06/28/2014 Ot V57.1 08/14/2014 RICHARD RETAIL FINANCIAL ANALYST, JEWELS 278.00 OBESITY 08/14/2014 RICHARD RETAIL FINANCIAL ANALYST, JEWELS 627.2 HOT FLASHES 02/23/2015 TON LERMA [facility] Ot R07.89 03/08/2015 KATELYN SHAH, PRIETO Alfredo Ot K20.9 ESOPHAGITIS, UNSPECIFIED 03/08/2015 KATELYN SHAH, PRIETO Alfredo Ot K25.9 GASTRIC ULCER, UNSP ACUTE OR CHRONIC, 03/08/2015 KATELYN SHAH, PRIETO Alfredo Ot K44.9 DIAPHRAGMATIC HERNIA WITHOUT OBSTRUCTION 03/16/2015 TON LERMAP Ot R07.89 05/23/2015 BRITNEY LERMAA PLANETARIUM TECHNICIAN Ot R07.89 OTHER CHEST PAIN 06/14/2015 KATELYN SHAH, PRIETO Alfredo Ot Z01.818 06/14/2015 KATELYN SHAH, PRIETO Alfredo Ot Z01.818 06/14/2015 Ot R07.89 07/11/2015 TON LERMA PLANETARIUM TECHNICIAN Ot K52.9 09/14/2015 TON LERMA PLANETARIUM TECHNICIAN Ot K52.9 NONINFECTIVE GASTROENTERITIS AND COLITIS 09/14/2015 BRITNEY LERMAA PLANETARIUM TECHNICIAN Ot 719.46 JOINT PAIN-L/LEG 10/12/2015 BRITNEY LERMAA PLANETARIUM TECHNICIAN Ot 719.46 JOINT PAIN-L/LEG 10/12/2015 TON LERMA PLANETARIUM TECHNICIAN Ot K52.9 NONINFECTIVE GASTROENTERITIS AND COLITIS 03/24/2016 KATELYN SHAH, PRIETO Alfredo Ot Z01.818 ENCOUNTER FOR OTHER PREPROCEDURAL EXAMIN 03/24/2016 KATELYN SHAH, PRIETO Alfredo Ot Z01.818 ENCOUNTER FOR OTHER PREPROCEDURAL EXAMIN 03/24/2016 Ot R07.89 OTHER CHEST PAIN 03/25/2016 TON LERMA PLANETARIUM TECHNICIAN Ot R10.30 LOWER ABDOMINAL PAIN, UNSPECIFIED 04/23/2016 TON LERMA PLANETARIUM TECHNICIAN Ot R10.30 LOWER ABDOMINAL PAIN, UNSPECIFIED 12/27/2016 [...] R07.89 OTHER CHEST PAIN 12/27/2016 TON LERMA PLANETARIUM TECHNICIAN Ot R10.30 LOWER ABDOMINAL PAIN, UNSPECIFIED 12/31/2016 KATELYN SHAH, PRIETO Alfredo Ot Z01.818 ENCOUNTER FOR OTHER PREPROCEDURAL EXAMIN 12/31/2016 KATELYN SHAH, PRIETO Alfredo Ot Z01.818 ENCOUNTER FOR OTHER PREPROCEDURAL EXAMIN 12/31/2016 Ot R07.89 OTHER CHEST PAIN 12/31/2016 TON LERMA PLANETARIUM TECHNICIAN Ot R10.30 LOWER ABDOMINAL PAIN, UNSPECIFIED 01/02/2017 KATELYN SHAH, PRIETO Alfredo Ot Z01.818 ENCOUNTER FOR OTHER PREPROCEDURAL EXAMIN 01/02/2017 KATELYN SHAH, PRIETO Alfredo Ot Z01.818 ENCOUNTER FOR OTHER PREPROCEDURAL EXAMIN 01/02/2017 Ot R07.89 OTHER CHEST PAIN 01/02/2017 TON LERMA PLANETARIUM TECHNICIAN Ot R10.30 LOWER ABDOMINAL PAIN, UNSPECIFIED 01/14/2017 TON LERMA PLANETARIUM TECHNICIAN Ot R60.9 EDEMA, UNSPECIFIED 01/19/2017 BRITNEY LERMAA PLANETARIUM TECHNICIAN Ot K52.9 NONINFECTIVE GASTROENTERITIS AND COLITIS 01/19/2017 TON LERMA PLANETARIUM TECHNICIAN Ot K52.9 NONINFECTIVE GASTROENTERITIS AND COLITIS 01/21/2017 BAIMA, VINCE L PLANETARIUM TECHNICIAN Ot E78.2 MIXED HYPERLIPIDEMIA 01/21/2017 BAIMA, VINCE L PLANETARIUM TECHNICIAN Ot I10 ESSENTIAL (PRIMARY) HYPERTENSION 01/21/2017 BAIMA, VINCE L PLANETARIUM TECHNICIAN Ot I73.9 PERIPHERAL VASCULAR DISEASE, UNSPECIFIED 01/21/2017 BAIMA, VINCE L PLANETARIUM TECHNICIAN Ot R00.2 PALPITATIONS 01/21/2017 BAIMA, VINCE L PLANETARIUM TECHNICIAN Ot R06.09 OTHER FORMS OF DYSPNEA 01/21/2017 BAIMA, VINCE L PLANETARIUM TECHNICIAN Ot R07.9 CHEST PAIN, UNSPECIFIED 01/21/2017 BAIMA, VINCE L PLANETARIUM TECHNICIAN Ot E78.2 MIXED HYPERLIPIDEMIA 01/21/2017 BAIMA, VINCE L PLANETARIUM TECHNICIAN Ot I10 ESSENTIAL (PRIMARY) HYPERTENSION 01/21/2017 BAIMA, VINCE L PLANETARIUM TECHNICIAN Ot I73.9 PERIPHERAL VASCULAR DISEASE, UNSPECIFIED 01/21/2017 BAIMA, VINCE L PLANETARIUM TECHNICIAN Ot R00.2 PALPITATIONS 01/21/2017 BAIMA, VINCE L PLANETARIUM TECHNICIAN Ot R06.09 OTHER FORMS OF DYSPNEA 01/21/2017 BAIMA, VINCE L PLANETARIUM TECHNICIAN Ot R07.9 CHEST PAIN, UNSPECIFIED 01/28/2017 BAIMA, VINCE L PLANETARIUM TECHNICIAN Ot E78.2 MIXED HYPERLIPIDEMIA 01/28/2017 BAIMA, VINCE L PLANETARIUM TECHNICIAN Ot I10 ESSENTIAL (PRIMARY) HYPERTENSION 01/28/2017 BAIMA, VINCE L PLANETARIUM TECHNICIAN Ot I73.9 PERIPHERAL VASCULAR DISEASE, UNSPECIFIED 01/28/2017 BAIMA, VINCE L PLANETARIUM TECHNICIAN Ot R00.2 PALPITATIONS 01/28/2017 BAIMA, VINCE L PLANETARIUM TECHNICIAN Ot R06.09 OTHER FORMS OF DYSPNEA 01/28/2017 BAIMA, VINCE L PLANETARIUM TECHNICIAN Ot R07.9 CHEST PAIN, UNSPECIFIED 01/28/2017 BAIMA, VINCE L PLANETARIUM TECHNICIAN Ot E78.2 MIXED HYPERLIPIDEMIA 01/28/2017 BAIMA, VINCE L PLANETARIUM TECHNICIAN Ot I10 ESSENTIAL (PRIMARY) HYPERTENSION 01/28/2017 BAIMA, VINCE L PLANETARIUM TECHNICIAN Ot I73.9 PERIPHERAL VASCULAR DISEASE, UNSPECIFIED 01/28/2017 BAIMA, VINCE L PLANETARIUM TECHNICIAN Ot R00.2 PALPITATIONS 01/28/2017 BAIMA, VINCE L PLANETARIUM TECHNICIAN Ot R06.09 OTHER FORMS OF DYSPNEA 01/28/2017 BAIMA VINCE L PLANETARIUM TECHNICIAN Ot R07.9 CHEST PAIN, UNSPECIFIED 02/10/2017 KATELYN SHAH, PRIETO Alfredo Ot Z01.818 ENCOUNTER FOR OTHER PREPROCEDURAL EXAMIN 02/10/2017 KATELYN SHAH, PRIETO Alfredo Ot Z01.818 ENCOUNTER FOR OTHER PREPROCEDURAL EXAMIN 02/10/2017 Ot R07.89 OTHER CHEST PAIN 02/10/2017 TON LERMA PLANETARIUM TECHNICIAN Ot K52.9 NONINFECTIVE GASTROENTERITIS AND COLITIS 02/10/2017 TON LERMA PLANETARIUM TECHNICIAN Ot R10.30 LOWER ABDOMINAL PAIN, UNSPECIFIED 02/10/2017 TON LERMA PLANETARIUM TECHNICIAN Ot R60.9 EDEMA, UNSPECIFIED 02/10/2017 BAIMA, VINCE L PLANETARIUM TECHNICIAN Ot E78.2 MIXED HYPERLIPIDEMIA 02/10/2017 BAIMA, VINCE L PLANETARIUM TECHNICIAN Ot I10 ESSENTIAL (PRIMARY) HYPERTENSION 02/10/2017 BAIMA, VINCE L PLANETARIUM TECHNICIAN Ot I73.9 PERIPHERAL VASCULAR DISEASE, UNSPECIFIED 02/10/2017 BAIMA, VINCE L PLANETARIUM TECHNICIAN Ot R00.2 PALPITATIONS 02/10/2017 BAIMA, VINCE L PLANETARIUM TECHNICIAN Ot R06.09 OTHER FORMS OF DYSPNEA 02/10/2017 BAIMA, VINCE L PLANETARIUM TECHNICIAN Ot R07.9 CHEST PAIN, UNSPECIFIED 02/10/2017 BAIMA, VINCE L PLANETARIUM TECHNICIAN Ot E78.2 MIXED HYPERLIPIDEMIA 02/10/2017 BAIMA, VINCE L PLANETARIUM TECHNICIAN Ot I10 ESSENTIAL (PRIMARY) HYPERTENSION 02/10/2017 BAIMA, VINCE L PLANETARIUM TECHNICIAN Ot I73.9 PERIPHERAL VASCULAR DISEASE, UNSPECIFIED 02/10/2017 BAIMA, VINCE L PLANETARIUM TECHNICIAN Ot R00.2 PALPITATIONS 02/10/2017 BAIMA, VINCE L PLANETARIUM TECHNICIAN Ot R06.09 OTHER FORMS OF DYSPNEA 02/10/2017 BAIMA, VINCE L PLANETARIUM TECHNICIAN Ot R07.9 CHEST PAIN, UNSPECIFIED 02/10/2017 MARJORIE STRONG RETAIL FINANCIAL ANALYST Ot 789.06 ABDOMINAL PAIN, EPIGASTRIC 02/10/2017 DERECK ALVAREZ PLANETARIUM TECHNICIAN Ot 611.71 MASTODYNIA 02/10/2017 TON LERMA PLANETARIUM TECHNICIAN Ot 719.46 JOINT PAIN-L/LEG 02/10/2017 TON LERMA PLANETARIUM TECHNICIAN Ot R60.9 EDEMA, UNSPECIFIED 02/10/2017 BAIMA, VINCE L PLANETARIUM TECHNICIAN Ot E78.2 MIXED HYPERLIPIDEMIA 02/10/2017 BAIMA, VINCE L PLANETARIUM TECHNICIAN Ot I10 ESSENTIAL (PRIMARY) HYPERTENSION 02/10/2017 BAIMA, VINCE L PLANETARIUM TECHNICIAN Ot I73.9 PERIPHERAL VASCULAR DISEASE, UNSPECIFIED 02/10/2017 BAIMA, VINCE L PLANETARIUM TECHNICIAN Ot R00.2 PALPITATIONS 02/10/2017 BAIMA, VINCE L PLANETARIUM TECHNICIAN Ot R06.09 OTHER FORMS OF DYSPNEA 02/10/2017 BAIMA, VINCE L PLANETARIUM TECHNICIAN Ot R07.9 CHEST PAIN, UNSPECIFIED 02/10/2017 BAIMA, VINCE L PLANETARIUM TECHNICIAN Ot E78.2 MIXED HYPERLIPIDEMIA 02/10/2017 BAIMA, VINCE L PLANETARIUM TECHNICIAN Ot I10 ESSENTIAL (PRIMARY) HYPERTENSION 02/10/2017 BAIMA, VINCE L PLANETARIUM TECHNICIAN Ot I73.9 PERIPHERAL VASCULAR DISEASE, UNSPECIFIED 02/10/2017 BAIMA, VINCE L PLANETARIUM TECHNICIAN Ot R00.2 PALPITATIONS 02/10/2017 BAIMA, VINCE L PLANETARIUM TECHNICIAN Ot R06.09 OTHER FORMS OF DYSPNEA 02/10/2017 BAIMA, VINCE L PLANETARIUM TECHNICIAN Ot R07.9 CHEST PAIN, UNSPECIFIED 02/10/2017 MARJORIE STRONG RETAIL FINANCIAL ANALYST Ot 789.06 ABDOMINAL PAIN, EPIGASTRIC 02/10/2017 DERECK ALVAREZ PLANETARIUM TECHNICIAN Ot 611.71 MASTODYNIA 02/10/2017 TON LERMA PLANETARIUM TECHNICIAN Ot 719.46 JOINT PAIN-L/LEG 02/10/2017 TON LERMA PLANETARIUM TECHNICIAN Ot R60.9 EDEMA, UNSPECIFIED 02/10/2017 BAIMA, VINCE L PLANETARIUM TECHNICIAN Ot E78.2 MIXED HYPERLIPIDEMIA 02/10/2017 BAIMA, VINCE L PLANETARIUM TECHNICIAN Ot I10 ESSENTIAL (PRIMARY) HYPERTENSION 02/10/2017 BAIMA, VINCE L PLANETARIUM TECHNICIAN Ot I73.9 PERIPHERAL VASCULAR DISEASE, UNSPECIFIED 02/10/2017 BAIMA, VINCE L PLANETARIUM TECHNICIAN Ot R00.2 PALPITATIONS 02/10/2017 BAIMA, VINCE L PLANETARIUM TECHNICIAN Ot R06.09 OTHER FORMS OF DYSPNEA 02/10/2017 BAIMA, VINCE L PLANETARIUM TECHNICIAN Ot R07.9 CHEST PAIN, UNSPECIFIED 02/10/2017 BAIMA, VINCE L PLANETARIUM TECHNICIAN Ot E78.2 MIXED HYPERLIPIDEMIA 02/10/2017 BAIMA, VINCE L PLANETARIUM TECHNICIAN Ot I10 ESSENTIAL (PRIMARY) HYPERTENSION 02/10/2017 BAIMA, VINCE L PLANETARIUM TECHNICIAN Ot I73.9 PERIPHERAL VASCULAR DISEASE, UNSPECIFIED 02/10/2017 BAIMA, VINCE L PLANETARIUM TECHNICIAN Ot R00.2 PALPITATIONS 02/10/2017 BAIMA, VINCE L PLANETARIUM TECHNICIAN Ot R06.09 OTHER FORMS OF DYSPNEA 02/10/2017 BAIMA, VINCE L PLANETARIUM TECHNICIAN Ot R07.9 CHEST PAIN, UNSPECIFIED 02/10/2017 BAIMA, VINCE L PLANETARIUM TECHNICIAN Ot E78.2 MIXED HYPERLIPIDEMIA 02/10/2017 BAIMA, VINCE L PLANETARIUM TECHNICIAN Ot I10 ESSENTIAL (PRIMARY) HYPERTENSION 02/10/2017 BAIMA, VINCE L PLANETARIUM TECHNICIAN Ot I73.9 PERIPHERAL VASCULAR DISEASE, UNSPECIFIED 02/10/2017 BAIMA, VINCE L PLANETARIUM TECHNICIAN Ot R00.2 PALPITATIONS 02/10/2017 BAIMA, VINCE L PLANETARIUM TECHNICIAN Ot R06.09 OTHER FORMS OF DYSPNEA 02/10/2017 BAIMA, VINCE L PLANETARIUM TECHNICIAN Ot R07.9 CHEST PAIN, UNSPECIFIED 02/18/2017 BAIMA, VINCE L PLANETARIUM TECHNICIAN Ot E78.2 MIXED HYPERLIPIDEMIA 02/18/2017 BAIMA, VINCE L PLANETARIUM TECHNICIAN Ot I10 ESSENTIAL (PRIMARY) HYPERTENSION 02/18/2017 BAIMA, VINCE L PLANETARIUM TECHNICIAN Ot I73.9 PERIPHERAL VASCULAR DISEASE, UNSPECIFIED 02/18/2017 BAIMA, VINCE L PLANETARIUM TECHNICIAN Ot R00.2 PALPITATIONS 02/18/2017 BAIMA, VINCE L PLANETARIUM TECHNICIAN Ot R06.09 OTHER FORMS OF DYSPNEA 02/18/2017 BAIMA, VINCE L PLANETARIUM TECHNICIAN Ot R07.9 CHEST PAIN, UNSPECIFIED 03/31/2017 BAIMA, VINCE L PLANETARIUM TECHNICIAN Ot E78.2 MIXED HYPERLIPIDEMIA 03/31/2017 BAIMA, VINCE L PLANETARIUM TECHNICIAN Ot I10 ESSENTIAL (PRIMARY) HYPERTENSION 03/31/2017 BAIMA, VINCE L PLANETARIUM TECHNICIAN Ot I73.9 PERIPHERAL VASCULAR DISEASE, UNSPECIFIED 03/31/2017 BAIMA, VINCE L PLANETARIUM TECHNICIAN Ot R00.2 PALPITATIONS 03/31/2017 BAIMA, VINCE L PLANETARIUM TECHNICIAN Ot R06.09 OTHER FORMS OF DYSPNEA 03/31/2017 BAIMA, VINCE L PLANETARIUM TECHNICIAN Ot R07.9 CHEST PAIN, UNSPECIFIED 03/31/2017 TON LERMA PLANETARIUM TECHNICIAN Ot R60.9 EDEMA, UNSPECIFIED 03/31/2017 BAIMA, VICNE L PLANETARIUM TECHNICIAN Ot E78.2 MIXED HYPERLIPIDEMIA 03/31/2017 BAIMA, VINCE L PLANETARIUM TECHNICIAN Ot I10 ESSENTIAL (PRIMARY) HYPERTENSION 03/31/2017 BAIMA, VINCE L PLANETARIUM TECHNICIAN Ot I73.9 PERIPHERAL VASCULAR DISEASE, UNSPECIFIED 03/31/2017 BAIMA, VINCE L PLANETARIUM TECHNICIAN Ot R00.2 PALPITATIONS 03/31/2017 BAIMA, VINCE L PLANETARIUM TECHNICIAN Ot R06.09 OTHER FORMS OF DYSPNEA 03/31/2017 BAIMA, VINCE L PLANETARIUM TECHNICIAN Ot R07.9 CHEST PAIN, UNSPECIFIED 03/31/2017 BAIMA, VINCE L PLANETARIUM TECHNICIAN Ot E78.2 MIXED HYPERLIPIDEMIA 03/31/2017 BAIMA, VINCE L PLANETARIUM TECHNICIAN Ot I10 ESSENTIAL (PRIMARY) HYPERTENSION 03/31/2017 BAIMA, VINCE L PLANETARIUM TECHNICIAN Ot I73.9 PERIPHERAL VASCULAR DISEASE, UNSPECIFIED 03/31/2017 BAIMA, VINCE L PLANETARIUM TECHNICIAN Ot R00.2 PALPITATIONS 03/31/2017 BAIMA, VINCE L PLANETARIUM TECHNICIAN Ot R06.09 OTHER FORMS OF DYSPNEA 03/31/2017 BAIMA, VINCE L PLANETARIUM TECHNICIAN Ot R07.9 CHEST PAIN, UNSPECIFIED 07/17/2017 BAIMA, VINCE L PLANETARIUM TECHNICIAN Ot E78.2 MIXED HYPERLIPIDEMIA 07/17/2017 BAIMA, VINCE L PLANETARIUM TECHNICIAN Ot I10 ESSENTIAL (PRIMARY) HYPERTENSION 07/17/2017 BAIMA, VINCE L PLANETARIUM TECHNICIAN Ot I73.9 PERIPHERAL VASCULAR DISEASE, UNSPECIFIED 07/17/2017 BAIMA, VINCE L PLANETARIUM TECHNICIAN Ot R00.2 PALPITATIONS 07/17/2017 BAIMA, VINCE L PLANETARIUM TECHNICIAN Ot R06.09 OTHER FORMS OF DYSPNEA 07/17/2017 BAIMA, VINCE L PLANETARIUM TECHNICIAN Ot R07.9 CHEST PAIN, UNSPECIFIED 07/17/2017 BAIMA, VINCE L PLANETARIUM TECHNICIAN Ot E78.2 MIXED HYPERLIPIDEMIA 07/17/2017 BAIMA, VINCE L PLANETARIUM TECHNICIAN Ot I10 ESSENTIAL (PRIMARY) HYPERTENSION 07/17/2017 BAIMA, VINCE L PLANETARIUM TECHNICIAN Ot I73.9 PERIPHERAL VASCULAR DISEASE, UNSPECIFIED 07/17/2017 BAIMA, VINCE L PLANETARIUM TECHNICIAN Ot R00.2 PALPITATIONS 07/17/2017 BAIMA, VINCE L PLANETARIUM TECHNICIAN Ot R06.09 OTHER FORMS OF DYSPNEA 07/17/2017 BAIMA, VINCE L PLANETARIUM TECHNICIAN Ot R07.9 CHEST PAIN, UNSPECIFIED 07/17/2017 BAIMA, VINCE L PLANETARIUM TECHNICIAN Ot E78.2 MIXED HYPERLIPIDEMIA 07/17/2017 BAIMA, VINCE L PLANETARIUM TECHNICIAN Ot I10 ESSENTIAL (PRIMARY) HYPERTENSION 07/17/2017 BAIMA, VINCE L PLANETARIUM TECHNICIAN Ot I73.9 PERIPHERAL VASCULAR DISEASE, UNSPECIFIED 07/17/2017 BAIMA, VINCE L PLANETARIUM TECHNICIAN Ot R00.2 PALPITATIONS 07/17/2017 BAIMA, VINCE L PLANETARIUM TECHNICIAN Ot R06.09 OTHER FORMS OF DYSPNEA 07/17/2017 BAIMA, VINCE L PLANETARIUM TECHNICIAN Ot R07.9 CHEST PAIN, UNSPECIFIED 07/17/2017 TON LERMA PLANETARIUM TECHNICIAN Ot R60.9 EDEMA, UNSPECIFIED 07/17/2017 TON LERMA PLANETARIUM TECHNICIAN Ot K52.9 NONINFECTIVE GASTROENTERITIS AND COLITIS 07/17/2017 BRITNEY LERMAA PLANETARIUM TECHNICIAN Ot R60.9 EDEMA, UNSPECIFIED 07/17/2017 BAIMA, VINCE L PLANETARIUM TECHNICIAN Ot E78.2 MIXED HYPERLIPIDEMIA 07/17/2017 BAIMA, VINCE L PLANETARIUM TECHNICIAN Ot I10 ESSENTIAL (PRIMARY) HYPERTENSION 07/17/2017 BAIMA, VINCE L PLANETARIUM TECHNICIAN Ot I73.9 PERIPHERAL VASCULAR DISEASE, UNSPECIFIED 07/17/2017 BAIMA, VINCE L PLANETARIUM TECHNICIAN Ot R00.2 PALPITATIONS 07/17/2017 BAIMA, VINCE L PLANETARIUM TECHNICIAN Ot R06.09 OTHER FORMS OF DYSPNEA 07/17/2017 BAIMA, VINCE L PLANETARIUM TECHNICIAN Ot R07.9 CHEST PAIN, UNSPECIFIED 07/17/2017 BAIMA, VINCE L PLANETARIUM TECHNICIAN Ot E78.2 MIXED HYPERLIPIDEMIA 07/17/2017 BAIMA, VINCE L PLANETARIUM TECHNICIAN Ot I10 ESSENTIAL (PRIMARY) HYPERTENSION 07/17/2017 BAIMA, VINCE L PLANETARIUM TECHNICIAN Ot I73.9 PERIPHERAL VASCULAR DISEASE, UNSPECIFIED 07/17/2017 BAIMA, VINCE L PLANETARIUM TECHNICIAN Ot R00.2 PALPITATIONS 07/17/2017 BAIMA, VINCE L PLANETARIUM TECHNICIAN Ot R06.09 OTHER FORMS OF DYSPNEA 07/17/2017 BAIMA, VINCE L PLANETARIUM TECHNICIAN Ot R07.9 CHEST PAIN, UNSPECIFIED 07/17/2017 BAIMA, VINCE L PLANETARIUM TECHNICIAN Ot E78.2 MIXED HYPERLIPIDEMIA 07/17/2017 BAIMA, VINCE L PLANETARIUM TECHNICIAN Ot I10 ESSENTIAL (PRIMARY) HYPERTENSION 07/17/2017 BAIMA, VINCE L PLANETARIUM TECHNICIAN Ot I73.9 PERIPHERAL VASCULAR DISEASE, UNSPECIFIED 07/17/2017 BAIMA, VINCE L PLANETARIUM TECHNICIAN Ot R00.2 PALPITATIONS 07/17/2017 BAIMA, VINCE L PLANETARIUM TECHNICIAN Ot R06.09 OTHER FORMS OF DYSPNEA 07/17/2017 BAIMA, VINCE L PLANETARIUM TECHNICIAN Ot R07.9 CHEST PAIN, UNSPECIFIED Procedures Code Description [place] [address] HEMOCCULT 04/12/2012 36306 PAP SMEAR 04/14/2012 OtCaitlyn Parada 04/17/2012 Q0091 PAP SMEAR OBTAIN SMEAR 04/19/2012 64859 ROUTINE VENIPUNCTURE 07/01/2012 63950 ESR/SED RATE 07/01/2012 86049 CBC 07/01/2012 79103 CRP 07/01/2012 30065 URIC ACID 07/01/2012 22031 CMP 07/01/2012 5401460 GFR CALC (RESULT ONLY) 07/01/2012 81892 TSH 07/01/2012 92893 ASO 07/02/2012 66420 RA FACTOR 07/02/2012 ANAANA IVETH ANALYZER (SCREEN) 07/02/2012 57023 HEPATITIS PROFILE 07/02/2012 56080 ROUTINE VENIPUNCTURE 08/04/2012 34859 CMP 08/04/2012 93428 BNP 08/04/2012 46518 EKG, TRACING (IN-HOUSE) 08/18/2012 07237 H PYLORI (IN-HOUSE) 11/03/2012 42674 EGD 11/03/2012 53230 US AORTIC (DOPPLER) 11/03/2012 33625 ROUTINE VENIPUNCTURE 12/09/2012 56752 CBC 12/09/2012 64535 CMP 12/09/2012 1591686 GFR CALC (RESULT ONLY) 12/09/2012 46449 XRAY CHEST 2 VIEW 12/12/2012 68009 ROUTINE VENIPUNCTURE 02/22/2013 35339 CBC 02/22/2013 6989256 GFR CALC (RESULT ONLY) 02/22/2013 94698 CMP 02/22/2013 28557 PROLACTIN 02/22/2013 16553 TSH 02/22/2013 20199 ESTROGEN 02/27/2013 64697 MAMMOGRAM DX, MARK 03/09/2013 92859 ROUTINE VENIPUNCTURE 05/23/2013 07662 XRAY KNEE LEFT 3 VIEWS 05/23/2013 95406 XRAY FEET, MARK 05/23/2013 1853364 GFR CALC (RESULT ONLY) 05/24/2013 03494 CMP 05/24/2013 23034 CBC 05/24/2013 39535 ROUTINE VENIPUNCTURE 11/09/2013 18295 CBC 11/09/2013 3736893 GFR CALC (RESULT ONLY) 11/09/2013 10456 CMP 11/09/2013 79451 ROUTINE VENIPUNCTURE 12/12/2013 39845 LIVER PANEL (LFT) 12/12/2013 51647 UA W/ CULTURE IF INDICATED 12/29/2013 46069 CULTURE URINE 12/31/2013 59305 ROUTINE VENIPUNCTURE 02/06/2014 56679 CBC 02/06/2014 2913312 GFR CALC (RESULT ONLY) 02/06/2014 54129 CMP 02/06/2014 38520 LIVER PANEL (LFT) 02/06/2014 07865 URIC ACID 02/06/2014 75791 CRP 02/06/2014 00095 HEPATITIS PROFILE 02/06/2014 25022 XRAY KNEE RIGHT 3 VIEWS 02/07/2014 43318 RA FACTOR 02/07/2014 47430 ASO 02/07/2014 ANAANA IVETH ANALYZER (SCREEN) 02/07/2014 58618 MRI EXTREMITY, LOWER RIGHT, W/O CONTRAST 03/01/2014 80619 PSYCH DIAGNOSTIC EVALUATION 03/15/2014 07404 JOINT INJECTION- LARGE JOINT (SPECIFY MEDCIN DESCRIPTION) 04/06/2014 J1040 DEPO MEDROL 80 MG INJ 04/06/2014 19035 PSYTX PT&/FAMILY 45 MINUTES 04/19/2014 ORTHOPEDI LISATA, CAITLYN 06/08/2014 05565 AMERITOX 08/14/2014 78213 UA LONG DIP 08/14/2014 Results Test Result [...] Status Pt. Type Provider Facility Loc./Unit Complaint [id number] 07/27/2014 13:03:00 07/27/2014 23:59:59 [facility] Outpatient JEWELS RAMOS APRN [id number] 07/27/2014 13:03:00 07/27/2014 23:59:59 [facility] Outpatient JEWELS RAMOS APRN [id number] 06/13/2014 10:49:00 06/13/2014 23:59:59 [facility] JEWELS RAMOS APRN [id number] 06/08/2014 13:03:00 06/08/2014 23:59:59 [facility] Outpatient SYMONE POST APRN [id number] 04/19/2014 10:10:00 04/19/2014 23:59:59 [facility] Outpatient VELASQUEZ KAUR PSYD [id number] 04/06/2014 13:24:00 04/06/2014 23:59:59 [facility] Outpatient JEWELS ROMANO DO [id number] 03/15/2014 10:35:00 03/15/2014 23:59:59 [facility] Outpatient VELASQUEZ KAUR PSYD [id number] 02/23/2014 16:27:00 02/23/2014 23:59:59 [facility] Outpatient BRITNEY LERMA APRNA S [id number] 02/06/2014 10:51:00 02/06/2014 23:59:59 [facility] Outpatient MARIA GUADALUPE RETAIL [employer]AN[employer] ANALYST TON S [id number] 02/02/2014 17:18:00 02/02/2014 23:59:59 [facility] Outpatient MARIA GUADALUPE RETAIL FINANCIAL ANALYST TON S [id number] 12/29/2013 13:28:00 12/29/2013 23:59:59 [facility] Outpatient MARIA GUADALUPE RETAIL FINANCIAL ANALYST TON S [id number] 12/14/2013 17:38:00 12/14/2013 23:59:59 [facility] Outpatient CATHERINE PERALES APRN [id number] 12/12/2013 11:56:00 12/12/2013 23:59:59 CLS Outpatient MARIA GUADALUPE [employer]AIL [employer]CIAL ANALYST, TON S [id number] 11/09/2013 14:10:00 11/09/2013 23:59:59 CLS Outpatient MARIA GUADALUPE RETAIL FIN[employer]CIAL ANALYST, TON S [id number] 10/06/2013 15:40:00 10/06/2013 23:59:59 CLS Outpatient MARIA GUADALUPE RETAIL FINANCIAL ANALYST TON S [id number] 05/23/2013 15:36:00 05/23/2013 23:59:59 CLS Outpatient MARIA GUADALUPE RETAIL FINANCIAL ANALYST TON S [id number] 03/29/2013 08:09:00 03/29/2013 23:59:59 CLS Outpatient MARIA GUADALUPE RETAIL FINANCIAL ANALYSTQUINTENTON S [id number] 03/08/2013 17:05:00 03/08/2013 23:59:59 CLS Outpatient ISAIAS VALENZUELA MD [id number] 02/22/2013 08:48:00 02/22/2013 23:59:59 CLS Outpatient TON LERMA APRN [id number] 11/11/2012 00:00:00 11/11/2012 23:59:59 CLS Outpatient TON LERMA APRN Colin [id number] 08/04/2012 13:50:00 08/04/2012 23:59:59 CLS Outpatient MARJORIE STRONG APRN [id number] 07/19/2012 11:32:00 07/19/2012 23:59:59 CLS Outpatient TON LERMA APRN [id number] 07/12/2012 11:30:00 07/12/2012 23:59:59 CLS Outpatient [id number] 07/01/2012 13:52:00 07/01/2012 23:59:59 CLS Outpatient [id number] 04/17/2012 10:45:00 04/17/2012 23:59:59 CLS Outpatient JEWELS ROMANO DO [id number] 12/09/2012 12:12:00 Document Registration [id number] 11/03/2012 14:53:00 Document Registration [id number] 08/18/2012 15:12:00 Document Registration [id number] 08/17/2017 08:25:00 08/17/2017 23:59:59 CLS Outpatient TON LERMA APRN [facility] [id number] 05/02/2017 15:25:00 Document Registration [id number] 02/10/2017 07:30:00 02/10/2017 23:59:59 CLS Outpatient VINCE MONTAÑO [facility] CARD R07.9 [id number] 01/23/2017 14:54:00 01/23/2017 14:54:00 CAN Preadmit OTHER, UNLISTED [facility] LAB [id number] [id number] 01/23/2017 14:45:00 01/23/2017 14:45:00 CAN Preadmit DEMARCO BETANCUR DO [facility] LAB R79.89 [id number] 01/20/2017 14:22:00 01/20/2017 23:59:59 CLS Outpatient VINCE MONTAÑO PLANETARIUM TECHNICIAN [facility] CARD R07.9 [id number] 01/20/2017 14:20:00 01/20/2017 23:59:59 CLS Outpatient VINCE MONTAÑO PLANETARIUM TECHNICIAN [facility] RAD R07.9 [id number] 01/02/2017 12:02:00 01/02/2017 23:59:59 CLS Outpatient MARIA GUADALUPE TON PLANETARIUM TECHNICIAN [facility] CARD EDEMA R60.9 [id number] 12/27/2016 13:34:00 12/27/2016 15:12:00 DIS Emergency MAKI SHAH, RUSTY Shaw [facility] ER L ARM, BACK, BOTH LEGS NUMBNESS. CP [id number] 03/24/2016 08:43:00 03/24/2016 23:59:59 CLS Outpatient MARIA GUADALUPE TON PLANETARIUM TECHNICIAN [facility] RAD LOWER ABD PAIN [id number] 06/14/2015 10:38:00 06/14/2015 23:59:59 CLS Outpatient MARIA GUADALUPE, TON PLANETARIUM TECHNICIAN [facility] RAD COLITIS [id number] 03/19/2015 09:30:00 03/19/2015 23:59:59 CLS Outpatient MARIA GUADALUPE, TON PLANETARIUM TECHNICIAN [facility] CARD LEFT CHEST PRESSURE [id number] 03/09/2015 05:38:00 03/09/2015 23:59:59 CLS Outpatient PRIETO ZEPEDA MD [facility] PREOP HX POLPS,FAMILY HX, RECTAL BLEEDING [id number] 03/08/2015 12:02:00 03/08/2015 14:45:00 DIS Outpatient PRIETO ZEPEDA MD [facility] SDC NAUSEA/UPPER GASTRIC PAIN [id number] 03/06/2015 05:42:00 03/06/2015 23:59:59 CLS Outpatient PRIETO ZEPEDA MD [facility] PREOP UPPER GASTRIC PAIN [id number] 03/01/2014 10:38:00 03/01/2014 23:59:59 CLS Outpatient MARIA GUADALUPE TON PLANETARIUM TECHNICIAN [facility] RAD PAIN IN KNEE [id number] 06/09/2013 14:13:00 06/09/2013 18:07:00 DIS Emergency BETTY SHAH, FRANKLYN Bowen [facility] ER ABD PAIN/VOMITING [id number] 03/10/2013 13:22:00 03/10/2013 23:59:59 CLS Outpatient DERECK ALVAREZ PLANETARIUM TECHNICIAN [facility] RAD BILAT NIPPLE DISCHARGE, BREAST PAIN [id number] 11/09/2012 07:47:00 11/09/2012 23:59:59 CLS Outpatient MARJORIE STRONG APRN [facility] RAD ABD PAIN, EPIGASTRIC [id number] 05/24/2015 09:00:00 Document Registration [id number] 08/04/2014 15:30:00 Document Registration [id number] 06/26/2014 11:49:00 Document Registration [id number] 07/05/2012 04:40:00 Document Registration [id number] 04/22/2012 13:36:00 Document Registration [id number] 04/20/2012 18:25:00 Document Registration [id number] 04/10/2011 05:44:00 Document Registration [id number] 04/03/2011 10:01:00 Document Registration [id number] 04/05/2010 14:06:00 Document Registration [id number] 03/18/2016 10:05:00 Document Registration [id number] 02/15/2016 18:06:00 Document Registration [id number] 12/02/2016 09:09:00 Document Registration
[2017-09-30] MEDS ORDERED: CALCIUM GLUC. 10% 4.65 MEQ/10 ML VIAL IV ONE (19:45)
[2017-09-30 19:50] LABS: FREE T4 (FREE THYROXINE) 1.17 NG/DL (0.70-1.48)
[2017-09-30] MEDS ORDERED: ONDANSETRON 4 MG/2 ML (SDV) Z0FRAN IV PRN (20:15)
[2017-09-30] MEDS ORDERED: CATHETER FLUSH 10 ML SYR IV PRN (20:15)
[2017-09-30] MEDS ORDERED: ACETAMINOPHEN 500 MG TAB (TYLENOL) PO PRN (20:15)
[2017-09-30 20:30] VITALS: BP 127/79
[2017-09-30] MEDS: 1/2 NS IV SOLUTION 1,000 ML IV SCH (20:30)
[2017-09-30] MEDS: MAGNESIUM 1 GM/100 ML IVPB 100 ML IV SCH ×4 (20:40→23:23)
[2017-09-30] MEDS: POTASSIUM CL 10 MEQ/50 ML IVPB (PRE-MIX) IV SCH ×4 (20:40→23:23)
[2017-09-30 22:00] VITALS: BP 103/76
[2017-09-30 23:22] VITALS: BP 116/77
[2017-10-01] VITALS (10 sets, daily range): BP systolic 110–146; BP diastolic 75–92
[2017-10-01] MEDS: CALCIUM GLUCONATE 1 GM/NS 50 ML IV SCH ×4 (00:24→05:16)
[2017-10-01] MEDS: MAGNESIUM 1 GM/100 ML IVPB 100 ML IV SCH ×3 (00:24→02:20)
[2017-10-01 04:08] LABS: BASOPHILS % (AUTO) 0 % (0-10); EOSINOPHILS # (AUTO) 0.3 10^3/uL (0.0-0.3); EOSINOPHILS % (AUTO) 3 % (0-10); HEMATOCRIT 33 % (35-52); HEMOGLOBIN 11.3 G/DL (11.5-16.0); LYMPHOCYTES # (AUTO) 1.6 X 10^3 (1.0-4.0); LYMPHOCYTES % (AUTO) 15 % (12-44); MEAN CORPUSCULAR HEMOGLOBIN 30 PG (25-34); MEAN CORPUSCULAR HGB CONC 34 G/DL (32-36); MEAN CORPUSCULAR VOLUME 87 FL (80-99); MONOCYTES % (AUTO) 9 % (0-12); NEUTROPHILS # (AUTO) 7.8 X 10^3 (1.8-7.8); NEUTROPHILS % (AUTO) 73 % (42-75); PLATELET COUNT 306 10^3/uL (130-400); RED BLOOD COUNT 3.79 10^6/uL (4.35-5.85); RED CELL DISTRIBUTION WIDTH 13.5 % (10.0-14.5); WHITE BLOOD COUNT 10.7 10^3/uL (4.3-11.0)
[2017-10-01 04:18] LABS: ALBUMIN 3.7 GM/DL (3.2-4.5); BILIRUBIN,TOTAL 0.3 MG/DL (0.1-1.0); CALCIUM 7.6 MG/DL (8.5-10.1); CREATININE SERUM 1.79 MG/DL (0.60-1.30); MAGNESIUM 3.9 MG/DL (1.8-2.4); POTASSIUM 3.6 MMOL/L (3.6-5.0); TOTAL PROTEIN 6.8 GM/DL (6.4-8.2)
[2017-10-01] MEDS ORDERED: COLE1TAB PO (05:33)
[2017-10-01] MEDS ORDERED: PROP20TA5 PO (05:35)
[2017-10-01] MEDS ORDERED: AMLO10TA2 PO (05:36)
[2017-10-01] MEDS ORDERED: OMEP40CA36 PO (05:37)
[2017-10-01] MEDS: 1/2 NS IV SOLUTION 1,000 ML IV SCH (06:59)
[2017-10-01] MEDS ORDERED: MAGNESIUM OXIDE (MAG-OX)400 MG TAB PO SCH (07:00)
[2017-10-01] MEDS ORDERED: PRED10DR OU (08:43)
[2017-10-01] MEDS ORDERED: TRAZ100T92 PO (08:43)
[2017-10-01] MEDS ORDERED: FOLI1TAB24 PO (08:43)
[2017-10-01] MEDS ORDERED: LISI40TA PO (08:43)
[2017-10-01] MEDS ORDERED: VENL150C98 PO (08:43)
[2017-10-01] MEDS ORDERED: SIMV40TA4 PO (08:43)
[2017-10-01] MEDS ORDERED: DIPH25CA79 PO (08:43)
[2017-10-01] MEDS ORDERED: ALBU90AE INH (08:43)
[2017-10-01] MEDS ORDERED: BUDE10.22 INH (08:43)
[2017-10-01] MEDS ORDERED: CYCL2DRO OU (08:43)
[2017-10-01] MEDS ORDERED: ASCO500T5 PO (08:45)
[2017-10-01] MEDS ORDERED: MILK175C4 PO (08:45)
[2017-10-01] MEDS ORDERED: PROP10DR9 OU (08:54)
[2017-10-01] MEDS ORDERED: cefTRIAXone 1 GM/NS 50 ML IVPB IV SCH ×2 (09:00)
--- NOTE | 2017-10-01 10:14 | Diagnostic Imaging Report ---
PROCEDURE: US Thyroid. TECHNIQUE: Multiple real-time grayscale images were obtained of the thyroid in various projections. INDICATION: Hypomagnesemia and hypocalcemia. FINDINGS: The right lobe of the thyroid measures 4.9 x 1.6 x 1.0 cm and the left lobe measures 4.3 x 1.6 x 1.1 cm. There is some generalized parenchymal heterogeneity present in both lobes but no discrete thyroid mass is detected. The isthmus is 3 mm in thickness. IMPRESSION: Thyroid heterogeneity. No discrete thyroid mass is detected. Dictated by: Dictated on workstation # [id number]
[2017-10-01] MEDS ORDERED: RT-ALBUTEROL SULF 2.5 MG/3 ML PRE-MIX VIAL INH PRN (11:00)
[2017-10-01] MEDS ORDERED: prednisoLONE 1% OPTH (PRED FORTE) 5 ML BTL OU SCH (11:00)
[2017-10-01] MEDS ORDERED: CYCLOPENTOLATE 1% (CYCLOGYL) 2 ML DROPS OU PRN (11:00)
--- NOTE | 2017-10-01 11:04 | Short Stay Summary-Hospitalist ---
History of Present Illness HPI/Chief Complaint CC: Weakness HPI: This is a 52-year-old white female clinic patient of [facility] who presented to the ER with multiple vague somatic complaints regarding weakness and dizziness and nausea when she was found to have very low magnesium of 0.8 low calcium level at 6.5 and potassium of 3.6 along with low TSH indicative of thyroid hyperfunction. She did have methamphetamines on her drug screen which I addressed and she reports "that was not the brightest move I've made." Patient is feeling much better today has a scopolamine patch and was placed on Rocephin and received 2 doses of that for abnormal UA the urine culture is pending at this time but she was asymptomatic regarding dysuria or any evidence of UTI and 2 doses of Rocephin is broad and strong coverage for any urine culture result at this current time. We gave her 8 g of magnesium sulfate which is corrected most of the electrolyte abnormalities and thyroid ultrasound did not show any discrete masses. She will have close follow-up next week with [facility] to address the abnormal suppressed TSH. ' Exam Limitations: no limitations Date Seen 10/01/17 Time Seen by Provider: 10:00 Attending Physician Mayra Wilkinson DO PCP Shaw Preciado MD Referring Physician Date of Admission September 30, 2017 at 19:20 Home Medications & Allergies Home Medications Reviewed patient Home Medication Reconciliation performed by pharmacy medication reconciliations pulmonology technician and/or nursing. Patients Allergies have been reviewed. Allergies Allergies Coded Allergies methotrexate (Unverified Allergy, Unknown, INCREASED LIVER ENZYMES, 06/26/14) procaine (Unverified Allergy, Unknown, RASH, 06/26/14) Past Hjfibzy-Ruchuf-Uctufu Hx Past Med/Social Hx: Reviewed Nursing Past Med/Soc Hx, Reviewed and Corrections made Patient Social History Marrital Status: Alcohol Use: Rarely Uses Number of Drinks Today: AA Recreational Drug Use: Yes Drug of Choice: THC,METH,COCAINE-NO IV USE.CLAIMS "NONE FOR YEARS"-TEST + FOR METH 09/30/17 Smoking Status: Former Smoker Former Smoker, Quit: September 25, 2015 Type Used: Cigarettes, Electronic/Vapor Physical Abuse Screen: No Sexual Abuse: No Recent Foreign Travel: No Contact w/other who traveled: No Recent Infectious Disease Expo: No Immunizations Up To Date Date of Pneumonia Vaccine: October 01, 2011 Date of Influenza Vaccine: Jan 09, 2011 Past Medical History Surgeries: Appendectomy, Gallbladder, Orthopedic, Tubal Ligation Cardiac: High Cholesterol, Hypertension Neurological: Vertigo Reproductive: No Sexually Transmitted Disease: No Tubal Ligation, Menopausal Gastrointestinal: Liver Disease/Jaundice Musculoskeletal: Arthritis, Fibromyalgia History of Blood Disorders: No Family History Diabetes Review of Systems Constitutional: see HPI, dizziness, malaise, weakness EENTM: no symptoms reported Respiratory: no symptoms reported Cardiovascular: no symptoms reported Gastrointestinal: loss of appetite, nausea Genitourinary: no symptoms reported Musculoskeletal: no symptoms reported Skin: no symptoms reported Psychiatric/Neurological: No Symptoms Reported All Other Systems Reviewed Negative Unless Noted: Yes Physical Exam Physical Exam Vital Signs Vital Signs - First Documented 09/30/17 18:02 Temp 96.4 Pulse 85 Resp 20 B/P (MAP) 143/83 (103) Pulse Ox 94 Capillary Refill : Less Than 3 Seconds General Appearance: No Apparent Distress, WD/WN, Chronically ill, Obese Eyes: Bilateral Eye Normal Inspection, Bilateral Eye PERRL HEENT: PERRL/EOMI, Normal ENT Inspection, Pharynx Normal Neck: Full Range of Motion, Normal Inspection, Non Tender, Supple, Carotid Bruit Respiratory: Chest Non Tender, Normal Breath Sounds, No Accessory Muscle Use, No Respiratory Distress, Other (subtle wheeze bases) Cardiovascular: Regular Rate, Rhythm, No Edema, No Gallop, No JVD, No Murmur, Normal Peripheral Pulses Gastrointestinal: Normal Bowel Sounds, No Organomegaly, No Pulsatile Mass, Non Tender, Soft Back: Normal Inspection, No CVA Tenderness, No Vertebral Tenderness Extremity: Normal Capillary Refill, Normal Inspection, Normal Range of Motion, Non Tender, No Calf Tenderness, No Pedal Edema Neurologic/Psychiatric: Alert, Oriented x3, No Motor/Sensory Deficits, Normal Mood/Affect Skin: Normal Color, Warm/Dry Lymphatic: No Adenopathy Results Results/Procedures Labs Laboratory Tests 09/30/17 17:35 10/01/17 03:30 Patient resulted labs reviewed. Short Stay Diagnosis Discharge Diagnosis-Short Stay Admission Diagnosis Assessment: Severe weakness Severe dizziness Methamphetamine use Severe low magnesium level Hypokalemia Hypocalcemia Abnormal UA not consistent with pathological UTI status post 2 rounds Rocephin no need for oral coverage at discharge Plan: DC home DC use of Meth Close f/u for thyroid issue as outpt next week Final Discharge Diagnosis Assessment: Severe weakness Severe dizziness Methamphetamine use Severe low magnesium level Hypokalemia Hypocalcemia Abnormal UA not consistent with pathological UTI status post 2 rounds Rocephin no need for oral coverage at discharge Plan: DC home DC use of Meth Close f/u for thyroid issue as outpt next week Conclusion Plan Plan: DC home DC use of Meth Close f/u for thyroid issue as outpt next week Abnormal UA not consistent with pathological UTI status post 2 rounds Rocephin no need for oral coverage at discharge Clinical Quality Measures DVT/VTE Risk/Contraindication: Risk Factor Score Per Nursin RFS Level Per Nursing on Admit: 1=Low/No VTE PPX MAYRA WILKINSON DO October 01, 2017 11:04
[2017-10-01] MEDS ORDERED: ARTIFICAL TEARS 0.4 ML UNIT DOSE (REFRESH PLUS) OU PRN (12:00)
[2017-10-01] MEDS ORDERED: RT-ADVAIR HFA 45/21 MCG PER PUFF IH SCH (20:00)
[2017-10-01] MEDS ORDERED: traZODone 100 MG (DESYREL) TAB PO SCH (21:00)
[2017-10-01] MEDS ORDERED: diphenhydrAMINE 25 MG TAB (BENADRYL) PO SCH (21:00)
[2017-10-01] MEDS ORDERED: FOLIC ACID 1 MG TAB PO SCH (21:00)
[2017-10-01] MEDS ORDERED: COLESTIPOL 1 GM (COLESTID) TAB PO SCH (21:00)
[2017-10-01] MEDS ORDERED: SIMvastatin 40 MG (ZOCOR) TAB PO SCH (21:00)
[2017-10-01] MEDS ORDERED: PROPRANOLOL 20 MG (INDERAL) TABLET PO SCH (21:00)
[2017-10-02] MEDS ORDERED: VENlafaxine XR 75 MG (EFFEXOR XR) CAP PO SCH (07:00)
[2017-10-02] MEDS ORDERED: PANTOPRAZOLE 40 MG (PROTONIX) TAB PO SCH (07:00)
[2017-10-02] MEDS ORDERED: lisINopril 40 MG (PRINIVIL) TABLET PO SCH (09:00)
[2017-10-02] MEDS ORDERED: amLODIPine 10 MG (NORVASC) TAB PO SCH (09:00)
[2017-10-02] MEDS ORDERED: ASCORBIC ACID (VIT C) 500 MG TABLET PO SCH (09:00)
[2017-10-02] MEDS ORDERED: MILK THISTLE SEED EXTRACT 175 MG PO SCH (09:00)
[2017-10-03] MEDS ORDERED: SCOPOLAMINE PATCH REMOVAL TP SCH (08:59)
[2017-10-03] MEDS ORDERED: SCOPOLAMINE 1.5 MG (TRANSDERM-SCOP) PATCH TOP SCH (09:00)
== END 2017-10-01 12:00 | disposition home or self-care (01) | DRG 948 ==
LOC: EDUNIT# 17:06 → ER 17:08 → ICU 19:20
PROVIDERS: ADMIT Internal Medicine; ATTEND Internal Medicine
DX: R53.1 Weakness (principal); R42 Dizziness and giddiness; F15.90 Other stimulant use, unspecified, uncomplicated; E83.42 Hypomagnesemia; E87.6 Hypokalemia; E83.51 Hypocalcemia; R82.99 Other abnormal findings in urine; R94.8 Abnormal results of function studies of other organs and systems; E78.00 Pure hypercholesterolemia, unspecified; I10 Essential (primary) hypertension; Z87.891 Personal history of nicotine dependence; Z79.899 Other long term (current) drug therapy
CPT/HCPCS: 36415; 70450; 71045; 76536; 80053; 80306; 80320; 81000; 82550; 82553; 83605; 83735; 83874; 83880; 83970; 84439; 84443; 84484; 85025; 85610; 85730; 87040; 87088; 93005; 93041; 96361; 96365; 96367; 96375

== ENCOUNTER → 2017-11-02 | Outpatient (CLI) | payer BC, OTHER ==
[~2017-11-02] MED LIST changes: +ALBU90AE INH; +AMLO10TA2 PO; +ASCO500T5 PO; +BUDE10.22 INH; +COLE1TAB PO; +CYCL2DRO OU; +DIPH25CA79 PO; +MILK175C4 PO; +OMEP40CA36 PO; +PRED10DR OU; +PROP10DR9 OU; +PROP20TA5 PO; +SIMV40TA4 PO; +TRAZ-190 PO; +VENL150C98 PO
--- NOTE | 2017-11-02 08:32 | Diagnostic Imaging Report ---
PROCEDURE: US abdomen complete. TECHNIQUE: Multiple real-time grayscale images were obtained over the abdomen in various projections. INDICATION: Elevated liver function tests. FINDINGS: The liver is normal in size at 18 cm. There is increased echogenicity throughout the liver consistent with hepatic steatosis. No discrete liver mass is identified. The gallbladder is surgically absent. No biliary ductal dilatation is seen. A pancreas is obscured by bowel gas. The spleen is normal in size. Aorta and IVC are unremarkable. The right and left kidneys are unremarkable. There is no ascites. IMPRESSION: 1. Hepatic steatosis. 2. Status post cholecystectomy. 3. No other significant abnormality is detected. Dictated by: Dictated on workstation # [id number]
== END ==
LOC: RAD 06:50
PROVIDERS: ATTEND Nurse Practitioner Family
DX: K76.0 Fatty (change of) liver, not elsewhere classified (principal); Z90.49 Acquired absence of other specified parts of digestive tract
CPT/HCPCS: 76700

== ENCOUNTER → 2017-11-17 | Outpatient (CLI) | payer BC, OTHER ==
--- NOTE | 2017-11-17 11:41 | Diagnostic Imaging Report ---
PROCEDURE: US Renal Bilateral. TECHNIQUE: Multiple real-time grayscale images were obtained over the kidneys in various projections bilaterally. INDICATION: Elevated creatinine. COMPARISON: 11/02/2017. FINDINGS: The right kidney measures 11 cm in length and the left kidney measures 11.1 cm in length. No obstructive change, mass or stone is seen. No perinephric fluid. The urinary bladder is not well distended. Bilateral ureteral jets are demonstrated. IMPRESSION: Unremarkable renal ultrasound. Bilateral ureteral jets are demonstrated. Dictated by: Dictated on workstation # [id number]
== END ==
LOC: RAD 09:13
PROVIDERS: ATTEND Nurse Practitioner Family
DX: N28.89 Other specified disorders of kidney and ureter (principal)
CPT/HCPCS: 76770

== ENCOUNTER 2017-11-19 14:48 | Emergency (ER) | payer BC ==
[~2017-11-19] VITALS: Ht 154.9 cm; Wt 93.9 kg
[2017-11-19 15:50] LABS: BILIRUBIN,URINE NEGATIVE (NEGATIVE); CLARITY,URINE CLEAR; COLOR,URINE YELLOW; GLUCOSE, URINE (UA) NEGATIVE (NEGATIVE); KETONES,URINE NEGATIVE (NEGATIVE); LEUKOCYTE ESTERASE ,URINE 3+ (NEGATIVE); NITRITE,URINE NEGATIVE (NEGATIVE); PH,URINE 6 (5-9); PROTEIN,URINE 3+ (NEGATIVE); UROBILINOGEN,URINE NORMAL (NORMAL)
[2017-11-19 16:00] LABS: BACTERIA,URINE FEW /HPF; SQUAMOUS EPITHELIAL CELL,UR 25-50 /HPF; WBC,URINE 25-50 /HPF
[2017-11-19 16:05] LABS: BASOPHILS % (AUTO) 0 % (0-10); EOSINOPHILS # (AUTO) 0.5 10^3/uL (0.0-0.3); EOSINOPHILS % (AUTO) 5 % (0-10); HEMATOCRIT 30 % (35-52); HEMOGLOBIN 9.8 G/DL (11.5-16.0); LYMPHOCYTES # (AUTO) 2.7 X 10^3 (1.0-4.0); LYMPHOCYTES % (AUTO) 30 % (12-44); MEAN CORPUSCULAR HEMOGLOBIN 29 PG (25-34); MEAN CORPUSCULAR HGB CONC 33 G/DL (32-36); MEAN CORPUSCULAR VOLUME 87 FL (80-99); MEAN PLATELET VOLUME 9.6 FL (7.4-10.4); MONOCYTES # (AUTO) 0.9 X 10^3 (0.0-1.0); MONOCYTES % (AUTO) 10 % (0-12); NEUTROPHILS # (AUTO) 4.8 X 10^3 (1.8-7.8); NEUTROPHILS % (AUTO) 54 % (42-75); PLATELET COUNT 375 10^3/uL (130-400); RED BLOOD COUNT 3.41 10^6/uL (4.35-5.85); WHITE BLOOD COUNT 8.9 10^3/uL (4.3-11.0)
[2017-11-19 16:08] LABS: ALBUMIN 3.7 GM/DL (3.2-4.5); BILIRUBIN,TOTAL 0.3 MG/DL (0.1-1.0); CALCIUM 8.8 MG/DL (8.5-10.1); POTASSIUM 3.7 MMOL/L (3.6-5.0)
[2017-11-19 16:10] LABS: MAGNESIUM 0.9 MG/DL (1.8-2.4)
[2017-11-19] MEDS ORDERED: NS IV 1000 ML 1,000 ML IV ONE ×2 (16:13→17:15)
[2017-11-19] MEDS ORDERED: MAGNESIUM 1 GM/100 ML IVPB 100 ML IV ONE ×2 (16:15→17:15)
--- NOTE | 2017-11-19 16:18 | ED General ---
General Chief Complaint: Cardiac/General Problems Stated Complaint: LOW BLOOD PRESSURE Nursing Triage Note: PT AMBULATES TO ROOM 7 PT CO OF HYPOTENSION TODAY, STATES IS IN STAGE 4 OF CHRONIC RENAL FAILURE. PT STATES LAST B/P TODAY WAS 90'S/60'S. Nursing Sepsis Screen: No Definite Risk Source of Information: Patient Exam Limitations: No Limitations History of Present Illness Date Seen by Provider: Nov 19, 2017 Time Seen by Provider: 15:12 Initial Comments This 52-year-old woman presents to the emergency room with complaints of low blood pressure and feeling dizzy. She has been monitoring her blood pressure at home and was instructed by her pneumatic tube fitter, Dr. Camarena, to call if her blood pressure was ever less than 100/60. Today she had a blood pressure of 94/ 65. She contacted his office and was directed to the ER. Patient states she has previously been hypertensive but was taken off of her antihypertensive medications except for propranolol. Today by phone and she was instructed to stop propranolol as well. Patient was admitted to this facility the end of September for renal failure, hypomagnesemia, and UTI. She had some similar symptoms at that time. Patient has an admitted history of methamphetamine use but denies any use since her last admission. She is afebrile. Patient had a renal ultrasound performed 2 days ago at this facility which was unremarkable. Allergies and Home Medications Allergies Coded Allergies: adhesive tape (Verified Allergy, Unknown, 11/19/17) latex (Verified Allergy, Unknown, 11/19/17) methotrexate (Unverified Allergy, Unknown, INCREASED LIVER ENZYMES, ) procaine (Unverified Allergy, Unknown, RASH, 06/26/14) Home Medications Albuterol Sulfate 90 Mcg Aer.pow.ba, 2 PUFF INH Q4H PRN for SHORTNESS OF BREATH, (Reported) Amlodipine Besylate 10 Mg Tablet, 10 MG PO DAILY, (Reported) Ascorbic Acid 500 Mg Tab.chew, 500 MG PO DAILY, (Reported) Budesonide/Formoterol Fumarate 10.2 Gm Hfa.aer.ad, 2 PUFF INH BID, (Reported) Colestipol HCl 1 Gm Tablet, 1 GM PO HS, (Reported) Cyclopentolate HCl 2 Ml Drops, 1 DROP OU BID PRN for EYE PAIN, (Reported) Diphenhydramine HCl 25 Mg Capsule, 25 MG PO HS, (Reported) Folic Acid 1 Mg Tablet, 1 MG PO HS, (Reported) Lisinopril 40 Mg Tablet, 40 MG PO DAILY, (Reported) Milk Thistle Seed Extract 175 Mg Capsule, 175 MG PO DAILY, (Reported) Omeprazole 40 Mg Capsule.dr, 80 MG PO DAILY, (Reported) TAKES 2 (40MG) CAPSULES Prednisolone Acetate 10 Ml Drops.susp, 1 DROP OU Q4H, (Reported) Propranolol HCl 20 Mg Tablet, 20 MG PO BID, (Reported) Propylene Glycol 10 Ml Drops, 1-2 DROPS OU QID PRN for DRY EYES, (Reported) Simvastatin 40 Mg Tablet, 40 MG PO HS, (Reported) Trazodone HCl 100 Mg Tablet, 100 MG PO HS, (Reported) Venlafaxine HCl 150 Mg Cap.er.24h, 150 MG PO DAILY, (Reported) Patient Home Medication List Home Medication List Reviewed: Yes Review of Systems Constitutional: weakness EENTM: no symptoms reported Respiratory: no symptoms reported Cardiovascular: see HPI Gastrointestinal: nausea Genitourinary: frequency : No Musculoskeletal: no symptoms reported Skin: no symptoms reported Psychiatric/Neurological: See HPI Hematologic/Lymphatic: No Symptoms Reported Immunological/Allergic: no symptoms reported Past Oaeizso-Knmonp-Ammabp Hx Past Med/Social Hx: Reviewed Nursing Past Med/Soc Hx Patient Social History Alcohol Use: Denies Use Recreational Drug Use: No Drug of Choice: THC,METH,COCAINE-NO IV USE.CLAIMS "NONE FOR YEARS"-TEST + FOR METH 09/30/17 Smoking Status: Former Smoker Type Used: Cigarettes, Electronic/Vapor Former Smoker, Quit: September 25, 2015 Recent Foreign Travel: No Contact w/Someone Who Travel: No Recent Infectious Disease Expo: No Recent Hopitalizations: No Physical Abuse: No Sexual Abuse: No Immunizations Up To Date Date of Pneumonia Vaccine: October 01, 2011 Date of Influenza Vaccine: Jan 09, 2011 Past Medical History Surgeries: Yes (RIGHT KNEE SCOPE, EGD/COLONOSCOPY) Appendectomy, Gallbladder, Orthopedic, Tubal Ligation Respiratory: Yes Asthma, Chronic Bronchitis, COPD Cardiac: Yes High Cholesterol, Hypertension Neurological: Yes Vertigo : No Reproductive Disorders: No NURSE TRANSITION History: Tubal Ligation, Menopausal Sexually Transmitted Disease: No Genitourinary: No Gastrointestinal: Yes (FATTY LIVER) Liver Disease/Jaundice Musculoskeletal: Yes (RIGHT KNEE SCOPE) Arthritis, Fibromyalgia Endocrine: No HEENT: Yes (IRITIS) Cancer: No Psychosocial: No Nursing Suicide Risk Score: 0 Integumentary: No Blood Disorders: No Family Medical History Diabetes Physical Exam Vital Signs Vital Signs - First Documented 11/19/17 14:50 Temp 97.4 Pulse 81 Resp 20 B/P (MAP) 120/78 (92) Pulse Ox 94 Capillary Refill : Less Than 3 Seconds Height, Weight, BMI Height: 5'1.00" Weight: 207lbs. 3.0oz. 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 Norm as Tested Skin: Normal Color, Warm/Dry Progress/Results/Core Measures Suspected Sepsis Recent Fever Within 48 Hours: No Infection Criteria Present: None New/Unexplained Altered Menta: No Sepsis Screen: No Definite Risk SIRS Temperature:97.4 Pulse: 81 Respiratory Rate: 20 Laboratory Tests 11/19/17 15:40: White Blood Count 8.9 Blood Pressure 120 /78 Mean: 92 Laboratory Tests 11/19/17 15:40: Creatinine 3.00H, Platelet Count 375, Total Bilirubin 0.3 Results/Orders Lab Results Laboratory Tests Test 11/19/17 15:40 Range/Units White Blood Count 8.9 4.3-11.0 10^3/uL Red Blood Count 3.41 L 4.35-5.85 10^6/uL Hemoglobin 9.8 L 11.5-16.0 G/DL Hematocrit 30 L 35-52 % Mean Corpuscular Volume 87 80-99 FL Mean Corpuscular Hemoglobin 29 25-34 PG Mean Corpuscular Hemoglobin Concent 33 32-36 G/DL Red Cell Distribution Width 14.0 10.0-14.5 % Platelet Count 375 130-400 10^3/uL Mean Platelet Volume 9.6 7.4-10.4 FL Neutrophils (%) (Auto) 54 42-75 % Lymphocytes (%) (Auto) 30 12-44 % Monocytes (%) (Auto) 10 0-12 % Eosinophils (%) (Auto) 5 0-10 % Basophils (%) (Auto) 0 0-10 % Neutrophils # (Auto) 4.8 1.8-7.8 X 10^3 Lymphocytes # (Auto) 2.7 1.0-4.0 X 10^3 Monocytes # (Auto) 0.9 0.0-1.0 X 10^3 Eosinophils # (Auto) 0.5 H 0.0-0.3 10^3/uL Basophils # (Auto) 0.0 0.0-0.1 10^3/uL Urine Color YELLOW Urine Clarity CLEAR Urine pH 6 5-9 Urine Specific [place] 1.015 L 1.016-1.022 Urine Protein 3+ H NEGATIVE Urine Glucose (UA) NEGATIVE NEGATIVE Urine Ketones NEGATIVE NEGATIVE Urine Nitrite NEGATIVE NEGATIVE Urine Bilirubin NEGATIVE NEGATIVE Urine Urobilinogen NORMAL NORMAL MG/DL Urine Leukocyte Esterase 3+ H NEGATIVE Urine RBC (Auto) 1+ H NEGATIVE Urine RBC 2-5 H /HPF Urine WBC 25-50 H /HPF Urine Squamous Epithelial Cells 25-50 H /HPF Urine Crystals NONE /LPF Urine Bacteria FEW H /HPF Urine Casts NONE /LPF Urine Mucus NEGATIVE /LPF Urine Culture Indicated YES Sodium Level 137 135-145 MMOL/L Potassium Level 3.7 3.6-5.0 MMOL/L Chloride Level 106 98-107 MMOL/L Carbon Dioxide Level 24 21-32 MMOL/L Anion Gap 7 5-14 MMOL/L Blood Urea Nitrogen 30 H 7-18 MG/DL Creatinine 3.00 H 0.60-1.30 MG/DL Estimat Glomerular Filtration Rate 16 BUN/Creatinine Ratio 10 Glucose Level 104 70-105 MG/DL Calcium Level 8.8 8.5-10.1 MG/DL Magnesium Level 0.9 *L 1.8-2.4 MG/DL Total Bilirubin 0.3 0.1-1.0 MG/DL Aspartate Amino Transf (AST/SGOT) 18 5-34 U/L Alanine Aminotransferase (ALT/SGPT) 39 0-55 U/L Alkaline Phosphatase 189 H 40-136 U/L Total Protein 7.0 6.4-8.2 GM/DL Albumin 3.7 3.2-4.5 GM/DL Urine Opiates Screen NEGATIVE NEGATIVE Urine Oxycodone Screen NEGATIVE NEGATIVE Urine Methadone Screen NEGATIVE NEGATIVE Urine Propoxyphene Screen NEGATIVE NEGATIVE Urine Barbiturates Screen NEGATIVE NEGATIVE Ur Tricyclic Antidepressants Screen NEGATIVE NEGATIVE Urine Phencyclidine Screen NEGATIVE NEGATIVE Urine Amphetamines Screen NEGATIVE NEGATIVE Urine Methamphetamines Screen NEGATIVE NEGATIVE Urine Benzodiazepines Screen NEGATIVE NEGATIVE Urine Cocaine Screen NEGATIVE NEGATIVE Urine Cannabinoids Screen NEGATIVE NEGATIVE Serum Alcohol < 10 <10 MG/DL Micro Results Microbiology 11/19/17 Urine Culture - Preliminary, Resulted Sent To [facility] My Orders Orders - KATHERIN RAY MD Cbc With Automated Diff (11/19/17 15:23) Comprehensive Metabolic Panel (11/19/17 15:23) Magnesium (11/19/17 15:23) Ua Culture If Indicated (11/19/17 15:23) Saline Lock/Iv-Start (11/19/17 15:23) Urine Culture (11/19/17 15:40) Ns Iv 1000 Ml (Sodium Chloride 0.9%) (11/19/17 16:13) Magnesium 1 Gm/100 Ml Ivpb (Magnesium Rdz (11/19/17 16:15) Alcohol (11/19/17 16:16) Drug Screen Stat (Urine) (11/19/17 16:16) Ekg Tracing (11/19/17 16:44) Monitor-Rhythm Ecg Trace Only (11/19/17 16:44) Ceftriaxone Injection (Rocephin Injectio (11/19/17 17:00) Saline Lock/Iv-Start (11/19/17 17:15) Ns Iv 1000 Ml (Sodium Chloride 0.9%) (11/19/17 17:15) Magnesium 1 Gm/100 Ml Ivpb (Magnesium Rdz (11/19/17 17:15) Medications Given in ED Current Medications Medications Dose Ordered Sig/Erick Route Start Time Stop Time Status Last Admin Dose Admin Ceftriaxone Sodium 1000 mg/ Sodium Chloride 50 ml @ 100 mls/hr ONCE ONCE IV 11/19/17 17:00 11/19/17 17:29 DC 11/19/17 17:10 100 MLS/HR Magnesium Sulfate/ Dextrose 100 ml @ 100 mls/hr ONCE ONCE IV 11/19/17 16:15 11/19/17 17:14 DC 11/19/17 16:25 100 MLS/HR Magnesium Sulfate/ Dextrose 100 ml @ 100 mls/hr ONCE ONCE IV 11/19/17 17:15 11/19/17 18:14 DC 11/19/17 17:27 100 MLS/HR Sodium Chloride 1,000 ml @ 0 mls/hr Q0M ONCE IV 11/19/17 16:13 11/19/17 16:14 DC 11/19/17 16:25 1,000 MLS/HR Sodium Chloride 1,000 ml @ 0 mls/hr Q0M ONCE IV 11/19/17 17:15 11/19/17 17:16 DC 11/19/17 17:27 1,000 MLS/HR Vital Signs/I&O 11/19/17 11/19/17 14:50 19:29 Temp 97.4 Pulse 81 80 Resp 20 12 B/P (MAP) 120/78 (92) 114/65 Pulse Ox 94 97 Capillary Refill : Less Than 3 Seconds Blood Pressure Mean: 92 Progress Note #1: Time: 16:59 Progress Note Patient was again found to have severe hypomagnesemia and worsening renal failure. She has an upward trend in her creatinine without clear explanation. I discussed the case with both the patient and Dr. Penn. Both feel it would be appropriate and in her best interest to be admitted at [facility] where nephrology services are immediately accessible. I have discussed the case with Dr. Del Rio, hospitalist at [facility]. He excepts the patient. We will send her via EMS due to the electrolyte abnormalities as there is potential for cardiac arrhythmia with the low magnesium. Patient is agreeable to transfer via EMS. We will treat suspected urinary tract infection with Rocephin and continue to treat renal failure with IV fluids and hypomagnesemia with IV magnesium replacement until patient is transferred. Progress Note #2: Progress Note Patient received 2 L of IV normal saline and 2 g of magnesium prior to transfer. She also received a gram of Rocephin for treatment of urinary tract infection. ECG Initial ECG Impression Date: Nov 19, 2017 Initial ECG Impression Time: 16:52 Initial ECG Rate: 73 Initial ECG Rhythm: Normal Sinus Initial ECG Intervals: Normal Initial ECG Impression: Normal Comment Normal sinus rhythm with no ST elevation or depression. No abnormal intervals or axis deviation. Departure Impression Primary Impression: Acute renal failure Qualified Codes: N17.9 - Acute kidney failure, unspecified Additional Impressions: Hypomagnesemia Dizziness Nausea Urinary tract infection Qualified Codes: N39.0 - Urinary tract infection, site not specified Disposition: 02 XFER SHT-TRM HOSP Condition: Improved Transfer Time Spoke to Accepting Phy: 16:55 Transfer Progress Notes Case reviewed with Dr. Del Rio, hospitalist at [facility]. He accepts the transfer. Transfer Time: 19:32 Transfer Facility: [place], [place] Method of Transfer: EMS Departure-Patient Inst. Referrals: [facility] (PCP/Family) Primary Care Physician Copy Copies To 1: MAGALY PENN MD, JOSHUA T MD Nov 19, 2017 16:18
[2017-11-19 16:34] LABS: AMPHETAMINE SCREEN, URINE NEGATIVE (NEGATIVE); BARBITURATE SCREEN URINE NEGATIVE (NEGATIVE); BENZODIAZEPINES SCREEN URINE NEGATIVE (NEGATIVE); CANNABINOID SCREEN, URINE NEGATIVE (NEGATIVE); COCAINE SCREEN URINE NEGATIVE (NEGATIVE); METHADONE STAT NEGATIVE (NEGATIVE); METHAMPHETAMINE SCREEN URINE S NEGATIVE (NEGATIVE); OPIATE SCREEN URINE NEGATIVE (NEGATIVE); OXYCODONE STAT NEGATIVE (NEGATIVE); PROPOXYPHENE STAT NEGATIVE (NEGATIVE); TRICYCLIC ANTIDEPRESSANTS SCRE NEGATIVE (NEGATIVE)
[2017-11-19] MEDS ORDERED: cefTRIAXone INJECTION 1,000 MG in NS (IVPB) 50 ML IV ONE (17:00)
[2017-11-19 19:29] VITALS: BP 114/65
== END 2017-11-19 19:32 | disposition short-term general hospital (02) ==
LOC: EDUNIT# 14:48 → ER 14:50
DX: N17.9 Acute kidney failure, unspecified (principal); E83.42 Hypomagnesemia; R42 Dizziness and giddiness; N39.0 Urinary tract infection, site not specified; J44.9 Chronic obstructive pulmonary disease, unspecified; E78.00 Pure hypercholesterolemia, unspecified; I10 Essential (primary) hypertension; F12.10 Cannabis abuse, uncomplicated; F15.10 Other stimulant abuse, uncomplicated; F14.10 Cocaine abuse, uncomplicated; Z87.891 Personal history of nicotine dependence; Z98.51 Tubal ligation status; Z87.19 Personal history of other diseases of the digestive system; Z91.048 Other nonmedicinal substance allergy status; Z91.040 Latex allergy status; Z88.8 Allergy status to other drugs, medicaments and biological substances; Z88.4 Allergy status to anesthetic agent; Z79.51 Long term (current) use of inhaled steroids; Z79.52 Long term (current) use of systemic steroids
CPT/HCPCS: 36415; 80053; 80306; 80320; 81000; 83735; 85025; 87088; 93005; 93041; 96361; 96365; 96366; 96375

== ENCOUNTER → 2018-02-08 | Outpatient (CLI) | payer BC ==
[~2018-02-08] MED LIST changes: -AMLO10TA2 PO; +AMLO10TA6 PO
--- NOTE | 2018-02-08 14:50 | Diagnostic Imaging Report ---
INDICATION: Pelvic pain. FINDINGS: The uterus measures 6.8 x 3.9 x 3.3 cm. Endometrial thickness is 4 mm. There are no myometrial or endometrial masses. Both ovaries are obscured by bowel gas. There are no adnexal masses. There is no free pelvic fluid. IMPRESSION: Unremarkable appearance of the uterus and endometrium. Neither ovary was visualized due to bowel gas. Dictated by: Dictated on workstation # [id number]
== END ==
LOC: RAD 13:03
PROVIDERS: ATTEND Nurse Practitioner Family
DX: R10.2 Pelvic and perineal pain (principal)
CPT/HCPCS: 76830; 76856

== ENCOUNTER 2018-03-24 15:26 | Emergency (ER) | payer BC ==
[~2018-03-24] VITALS: Ht 154.9 cm; Wt 98.9 kg
[~2018-03-24 15:26] MED LIST changes: -MILK175C4 PO; +MILK175C5 PO
--- OUTSIDE RECORDS SUMMARY | 2018-03-24 15:33 | XMS REPORT ---
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 [facility] [address] [id number] [place] [address]- 5527 Apr, [facility] [place] [facility] [address] [id number] [place] [address] Apr, [facility] [place] [facility] [address] [id number] [place] [address]- 6420 Apr, [facility] [place] [facility] [address] [id number] [place] [address] Apr, [facility] [place] [facility] [address] [id number] [place] [address]- 7336 15 Apr, 2012 [facility] [place] [facility] [address] [id number] [place] [address]- 1096 Apr, [facility] [place] [facility] [address] [id number] [place] [address]- 4994 Apr, [facility] [place] [facility] [address] [id number] [place] [address]- 0227 Apr, [facility] [place] [facility] [address] [id number] [place] [address] Apr, [facility] [place] [facility] [address] [id number] [place] [address]- 8623 Feb, [facility] [place] [facility] [address] [id number] [place] [address]- 3811 Feb, [facility] [place] [facility] [address] [id number] [place] [address]- 3969 04 Feb, 2012 [facility] [place] [facility] [address] [id number] [place] [address]- 9097 13 Jan, 2012 [facility] [place] [facility] [address] [id number] [place] [address]- [address] 13 Jan, 2012 [facility] [place] [facility] [address] [id number] [place] [address]- 0848 15 Oct, 2011 [facility] [place] [facility] [address] [id number] [place] [address]- 9248 14 Oct, 2011 [facility] [place] [facility] [address] [id number] [place] [address]- [address] 05 Oct, 2011 [facility] [place] [facility] [address] [id number] [place] [address]- 9413 September, [facility] [place] [facility] [address] [id number] [place] [address]- 1982 06 Aug, 2011 [facility] [address] [id number] [place] [address]- 5609 May, [facility] [address] [id number] [place] [address] Apr, [facility] [address] [id number] [place] [address] Apr, [facility] [address] [id number] [place] [address]- 7643 Apr, [facility] [address] [id number] [place] [address]- 3932 Apr, [facility] [address] [id number] [place] [address]- 4652 Mar, [facility] [address] [id number] [place] [address]- 4448 Mar, [facility] [address] [id number] [place] [address]- 3269 Mar, [facility] [address] [id number] [place] [address]- 2760 Mar, [facility] [address] [id number] [place] [address]- 7155 Feb, [facility] [address] [id number] [place] [address]- 2817 Feb, [facility] [address] [id number] [place] [address]- 4825 Feb, [facility] [place] [facility] [address] [id number] [place] [address] Feb, [facility] [place] [facility] [address] [id number] [place] [address]- 9474 September, [facility] [address] [id number] [place] [address]- 9959 September, [facility] [place] [facility] [address] [id number] [place] [address]- 2375 13 Apr, 2010 [facility] [place] [facility] [address] [id number] [place] [address]- 1566 Apr, [facility] [place] [facility] [address] [id number] [place] [address]- 6663 Mar, [facility] [place] [facility] [address] [id number] [place] [address]- 2125 Mar, [facility] [place] [facility] [address] [id number] [place] [address] Mar, [facility] [place] [facility] [address] [id number] [place] [address]- 1626 Mar, [facility] [place] [facility] [address] [id number] [place] [address]- 8170 Mar, [facility] [place] [facility] [address] [id number] [place] [address]- 8256 Feb, [facility] [place] [facility] [address] [id number] [place] [address]- 2428 Feb, [facility] [place] [facility] [address] [id number] [place] [address]- 3041 Feb, [facility] [place] [facility] [address] [id number] [place] [address]- 7989 Jan, [facility] [place] [facility] [address] [id number] [place] [address]- 4048 15 Jun, 2009 [facility] [place] [facility] [address] [id number] [place] [address]- 4797 Mar, [facility] [place] [facility] [address] [id number] [place] [address]- 3440 Oct, [facility] [place] [facility] [address] [id number] [place] [address]- 6035 17 Oct, 2008 [facility] [place] [facility] [address] [id number] [place] [address]- 6244 September, IMMUNIZATIONS No Known Immunizations SOCIAL HISTORY Never Assessed REASON FOR VISIT refill request PLAN OF CARE VITAL SIGNS MEDICATIONS Medication Instructions Dosage Frequency Start Date End Date Duration Status Venlafaxine HCl ER 75 MG Orally Once a day-Patient must be seen for additional refills 1 capsule with food 14 days Active RESULTS No Results PROCEDURES No Known procedures INSTRUCTIONS MEDICATIONS ADMINISTERED No Known Medications MEDICAL (GENERAL) HISTORY Type Description Date Medical History hypertension Medical History asthma Medical History Arthritis Medical History bulging disc(s) Medical History back pain Medical History headache Medical History sleep disturbance Medical History H/O esophagogastroduodenoscopy Medical History psoriasis Medical History Ulcerative Colitis per patient Medical History hypomagnesium Medical History hypokalemia Surgical History Right knee Surgical History gall bladder removal Surgical History appendectomy Surgical History tubal ligation Surgical History colonoscopy Surgical History Scope for hernia Hospitalization History Surgery Hospitalization History electrolytes were out of line, having speech problems 09/30/2017 Hospitalization History [facility]/electrolyte issues 11/2017 Hospitalization History [facility] 11/2017
--- OUTSIDE RECORDS SUMMARY | 2018-03-24 15:33 | XMS REPORT ---
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 [address] [id number] [place] [address]- 357[address] September, [facility] [place] [facility] [address] [id number] [place] [address]- 6793 Aug, [facility] [place] [facility] [address] [id number] [place] [address]- 4804 Aug, [facility] [place] [facility] [address] [id number] [place] [address]- 3829 Aug, [facility] [place] [facility] [address] [id number] [place] [address] Jul, [facility] [place] [facility] [address] [id number] [place] [address]- 2492 Jul, [facility] [place] [facility] [address] [id number] [place] [address]- 7378 Jul, [facility] [place] [facility] [address] [id number] [place] [address]- 2276 Jul, [facility] [place] [facility] [address] [id number] [place] [address]- 6131 Jul, [facility] [place] [facility] [address] [id number] [place] [address]- 9940 Jun, [facility] [place] [facility] [address] [id number] [place] [address]- 2382 Jun, [facility] [place] [facility] [address] [id number] [place] [address]- 9795 Apr, [facility] [place] [facility] [address] [id number] [place] [address] Apr, [facility] [place] [facility] [address] [id number] [place] [address] Apr, [facility] [place] [facility] [address] [id number] [place] [address] Apr, [facility] [place] [facility] [address] [id number] [place] [address]- 5495 15 Apr, 2012 [facility] [address] [id number] [place] [address]- 2462 15 Apr, 2012 [facility] [place] [facility] [address] [id number] [place] [address]- 5481 12 Apr, 2012 [facility] [address] [id number] [place] [address]- 2355 Apr, [facility] [place] [facility] [address] [id number] [place] [address]- 3974 10 Apr, 2012 [facility] [address] [id number] [place] [address]- 5092 Feb, [facility] [place] [facility] [address] [id number] [place] [address]- 2551 Feb, [facility] [place] [facility] [address] [id number] [place] [address]- 2330 Feb, [facility] [address] [id number] [place] [address]- 0088 Jan, [facility] [place] [facility] [address] [id number] [place] [address]- 3004 Jan, [facility] [address] [id number] [place] [address]- 6810 15 Oct, 2011 [facility] [place] [facility] [address] [id number] [place] [address]- 7186 14 Oct, 2011 [facility] [place] [facility] [address] [id number] [place] [address]- 6822 05 Oct, 2011 [facility] [place] [facility] [address] [id number] [place] [address]- 8233 September, [facility] [place] [facility] [address] [id number] [place] [address]- 2546 06 Aug, 2011 [facility] [place] [facility] [address] [id number] [place] [address]- 2077 May, [facility] [place] [facility] [address] [id number] [place] [address]- 4119 Apr, [facility] [place] [facility] [address] [id number] [place] [address]- 7830 Apr, [facility] [place] [facility] [address] [id number] [place] [address]- 5390 Apr, [facility] [place] [facility] [address] [id number] [place] [address]- 3793 Apr, [facility] [place] [facility] [address] [id number] [place] [address]- 5256 Mar, [facility] [place] [facility] [address] [id number] [place] [address]- 2397 Mar, [facility] [place] [facility] [address] [id number] [place] [address]- 0738 Mar, [facility] [place] [facility] [address] [id number] [place] [address]- 0279 Mar, [facility] [place] [facility] [address] [id number] [place] [address]- 6402 Feb, [facility] [place] [facility] [address] [id number], [place] [address]- 4073 Feb, [facility] [place] [facility] [address] [id number], [place] [address]- 2602 Feb, [facility] [place] [facility] [address] [id number], [place] [address]- 4836 Feb, [facility] [place] [facility] [address] [id number] [place] [address]- 7812 September, [facility] [place] [facility] [address] [id number], [place] [address]- 7405 September, [facility] [place] [facility] [address] [id number], [place] [address]- 7319 Apr, [facility] [place] [facility] [address] [id number], [place] [address]- 3544 Apr, [facility] [address], [place] [address]- 9707 Mar, [facility] [address] [address] 2768 Mar, [facility] [id number] [place] [address]- 9336 Mar, [facility] [id number] [place] [address] 719878- 0476 Mar, [facility] [id number] [place] [address]- 0692 Mar, [facility] [id number] [place] [address] 10993- 8701 Feb, [facility] [id number] [place] [address] 00[address]- 8716 Feb, [facility] [address], [place] [address]- 5247 Feb, [facility] [id number] [place] [address]- 6661 Jan, [facility] [address], [place] [address]- 4193 Jun, [facility] [address], [place] [address]- 2763 Mar, [facility] [address], [place] [address]- 0658 Oct, [facility] [address], [place] [address]- 8223 Oct, [facility] [address], [place] [address]- 7359 September, IMMUNIZATIONS No Known Immunizations SOCIAL HISTORY Never Assessed REASON FOR VISIT Referral PLAN OF CARE VITAL SIGNS MEDICATIONS Unknown [...] for kidney/electrolyte issues 11/2017 Hospitalization History Via [facility] Kidney issues 11/2017
--- OUTSIDE RECORDS SUMMARY | 2018-03-24 15:34 | XMS REPORT ---
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 [id number] [place] [address]- 2142 04 Jul, 2012 [facility] [address] [facility] [id number] [place] [address]- 8895 Jul, [facility] [address] [id number] [place] [address]- 6320 28 Jun, 2012 [facility] [address] [facility] [id number] [place] [address]- 6659 06 Jun, 2012 [facility] [address] [facility] [id number] [place] [address]- 7205 Apr, [facility] [address] [id number] [place] [address]- 3577 Apr, [facility] [address] [id number] [place] [address]- 2549 Apr, [facility] [address] [id number] [place] [address] 2055 Apr, [facility] [address] [facility] [id number] [place] [address]389 Apr, [facility] [address] [facility] [id number] [place] [address] Apr, [facility] [place] [facility] [address] [id number] [place] [address]- 1145 Apr, [facility] [place] [facility] [address] [id number] [place] [address]- 6291 Apr, [facility] [place] [facility] [address] [id number] [place] [address]- 6033 Apr, [facility] [place] [facility] [address] [id number] [place] [address]- 7811 Feb, [facility] [place] [facility] [address] [id number] [place] [address]- 3885 Feb, [facility] [place] [facility] [address] [id number] [place] [address]- 6375 04 Feb, 2012 [facility] [place] [facility] [address] [id number] [place] [address]- 6330 13 Jan, 2012 [facility] [place] [facility] [address] [id number] [place] [address]- 6041 13 Jan, 2012 [facility] [place] [facility] [address] [id number] [place] [address]- 9371 15 Oct, 2011 [facility] [place] [facility] [address] [id number] [place] [address]- 8035 14 Oct, 2011 [facility] [place] [facility] [address] [id number] [place] [address]- 4775 Oct, [facility] [place] [facility] [address] [id number] [place] [address]- 1354 September, [facility] [place] [facility] [address] [id number] [place] [address]- 7719 Aug, [facility] [place] [facility] [address] [id number] [place] [address]- 6630 May, [facility] [place] [facility] [address] [id number] [place] [address]- 2218 Apr, [facility] [place] [facility] [address] [id number] [place] [address]- 7418 19 Apr, 2011 [facility] [place] [facility] [address] [id number] [place] [address] 19 Apr, 2011 [facility] [place] [facility] [address] [id number] [place] [address]- 0918 Apr, [facility] [place] [facility] [address] [id number] [place] [address]- 7715 14 Mar, 2011 [facility] [place] [facility] [address] [id number] [place] [address]- 7334 14 Mar, 2011 [facility] [place] [facility] [address] [id number] [place] [address]- 2144 Mar, [facility] [place] [facility] [address] [id number] [place] [address]- 3530 Mar, [facility] [place] [facility] [address] [id number] [place] [address]- 3503 17 Feb, 2011 [facility] [place] [facility] [address] [id number] [place] [address]- 6707 17 Feb, 2011 [facility] [place] [facility] [address] [id number] [place] [address]- 8914 Feb, [facility] [place] [facility] [address] [id number] [place] [address]- 7087 Feb, [facility] [place] [facility] [address] [id number] [place] [address]- 3749 September, [facility] [place] [facility] [address] [id number], [place] [address] 2788 September, [facility] [place] [facility] [address] [id number] [place] [address]- 8495 Apr, [facility] [place] [facility] [address] [id number] [place] [address]- 9904 Apr, [facility] [place] [facility] [address] [id number] [place] [address]- 4122 Mar, [facility] [place] [facility] [id number], [place] [address] 8388 29 Mar, 2010 [facility] [place] [id number], [place] [address]- 0676 Mar, [facility] [place] [id number], [place] [address]- 5129 Mar, [facility] [place] [id number], [place] [address]- 3407 Mar, [facility] [place] [id number], [place] [address]- 3849 Feb, [facility] [place] [id number] [place] [address]- 2693 Feb, [facility] [place] [id number], [place] [address]- 6014 Feb, [facility] [place] [id number] [place] [address]- 7536 Jan, [facility] [place] [id number], [place] [address]- 9473 Jun, [facility] [place] [id number], [place] [address]- 1946 Mar, [facility] [place] [id number], [place] [address]- 0821 Oct, [facility] [place] [id number], [place] [address]- 2570 Oct, [facility] [place] [id number] [address]- 5964 September, IMMUNIZATIONS No Known Immunizations SOCIAL HISTORY Never Assessed REASON FOR VISIT Referal PLAN OF CARE VITAL SIGNS MEDICATIONS Unknown [...] line, having speech problems 09/30/2017 Hospitalization History [facility] for kidney/electrolyte issues 11/2017 Hospitalization History [facility] Kidney issues 11/2017
--- OUTSIDE RECORDS SUMMARY | 2018-03-24 15:35 | XMS REPORT ---
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 [id number] [place] [address]- 1476 Apr, [facility] [place] [facility] [address] [id number] [place] [address]- 1056 Apr, [facility] [place] [facility] [address] [id number] [place] [address]- 9023 15 Apr, 2012 [facility] [place] [facility] [address] [id number] [place] [address] 5501 15 Apr, 2012 [facility] [place] [facility] [address] [id number] [place] [address] 12 Apr, 2012 [facility] [place] [facility] [address] [id number] [place] [address]- 2401 Apr, [facility] [place] [facility] [address] [id number] [place] [address] 2751 10 Apr, 2012 [facility] [place] [facility] [address] [id number] [place] [address] Feb, [facility] [place] [facility] [address] [id number] [place] [address]- 7357 Feb, [facility] [place] [facility] [address] [id number] [place] [address]- 3563 Feb, [facility] [place] [facility] [address] [id number] [place] [address]- 8204 Jan, [facility] [place] [facility] [address] [id number] [place] [address]- 1594 13 Jan, 2012 [facility] [place] [facility] [address] [facility] [id number] [place] [address]- 8554 15 Oct, 2011 [facility] [place] [facility] [address] [id number] [place] [address]- 6917 14 Oct, 2011 [facility] [place] [facility] [address] [id number], [place] [address]886 05 Oct, 2011 [facility] [place] [facility] [address] [id number] [place] [address]- 9370 September, [facility] [place] [facility] [address] [id number] [place] [address]- 1051 06 Aug, 2011 [facility] [place] [facility] [address] [id number], [place] [address] 2634 May, [facility] [place] [facility] [address] [id number] [place] [address]- 6511 20 Apr, 2011 [facility] [place] [facility] [address] [id number] [place] [address]- 9136 19 Apr, 2011 [facility] [place] [facility] [address] [id number] [place] [address] 19 Apr, 2011 [facility] [place] [facility] [address] [id number] [place] [address]- 2822 Apr, [facility] [place] [facility] [address] [id number] [place] [address]- 2607 14 Mar, 2011 [facility] [place] [facility] [address] [id number] [place] [address]- 8970 Mar, [facility] [place] [facility] [address] [id number] [place] [address]- 5571 Mar, [facility] [place] [facility] [address] [id number] [place] [address]- 1117 Mar, [facility] [place] [facility] [address] [id number] [place] [address]- 6088 17 Feb, 2011 [facility] [place] [facility] [address] [id number] [place] [address]- 1219 17 Feb, 2011 [facility] [place] [facility] [address] [id number] [place] [address]- 7737 Feb, [facility] [place] [facility] [address] [id number] [place] [address]- 4963 Feb, [facility] [place] [facility] [address] [id number] [place] [address]- 4309 September, [facility] [place] [facility] [address] [id number] [place] [address]- 0532 September, [facility] [place] [facility] [address] [id number] [place] [address]- 2072 13 Apr, 2010 [facility] [place] [facility] [address] [id number] [place] [address]- 5963 Apr, [facility] [address] [id number], [place] [address] Mar, [facility] [id number], [place] [address]- 1006 Mar, [facility] [id number], [place] [address]- 4286 Mar, [facility] [id number], [place] [address]- 4687 Mar, [facility] [address], [place] [address]- 0219 Mar, [facility] [id number] [place] [address]- 8[address] Feb, [facility] [address], [place] [address]- 3972 Feb, [facility] [address], [place] [address]- 3265 Feb, [facility] [address], [place] [address]- 5983 Jan, [facility] [address], [place] [address]- 2952 Jun, [facility] [address], [place] [address]- 0787 Mar, [facility] [address], [place] [address]- 9133 Oct, [facility] [address], [place] [address]- 4710 Oct, [facility] [address], [place] [address]- [address] September, IMMUNIZATIONS No Known Immunizations SOCIAL HISTORY Never Assessed REASON FOR VISIT Abdominal discomfort. Pt feels like she is bloated. Pt states she has stage 4 kidney disease.-[facility] PLAN OF CARE Activity Details Follow Up 3 Months, prn Reason:CHM/HTN w/ Berna Pending Test Ultrasound : Pelvic, COMPLETE (REFLEX CPT-22902) VITAL SIGNS Height 62.1 in 2018-01-15 Weight 212.4 lbs 2018-01-15 Temperature 98.7 degrees Fahrenheit 2018-01-15 Heart Rate 80 bpm 2018-01-15 Respiratory Rate 20 2018-01-15 BMI 38.72 kg/m2 2018-01-15 Blood pressure systolic 122 mmHg 2018-01-15 Blood pressure diastolic 76 mmHg 2018-01-15 MEDICATIONS Medication Instructions Dosage Frequency Start Date End Date Duration Status Magnesium 250 MG Orally Once a day 1 tablet with a meal 24h Active Symbicort 160-4.5 MCG/ACT Inhalation Twice a day 1 puff 12h 30 days Active Colestipol HCl 1 GM Orally Once a day 2 tablets 24h Active Stelara 45 MG/0.5ML as directed Active Venlafaxine HCl ER 75 MG Orally Once a day 1 capsule with food 24h Active Zocor 40 mg Orally Once a day 1 tablet in the evening 24h 30 Active Amitriptyline HCl 25 MG Orally Once a day 1 tablet at hs 24h 14 Jan, 2018 30 days Active Trazodone HCl 100 mg Orally Once a day 1 tablet at bedtime as needed 24h 30 Active Folic Acid 1 MG Orally Once a day 1 tablet 24h 30 Active Omeprazole 40 mg Orally 2 times a day 1 capsule 12h 30 Active Durezol 0.05 % Ophthalmic 4 times a day 1 drop into affected eye 6h Active Propranolol HCl 20 mg Orally twice a day 1 tablet 12h Active RESULTS Name Result Date Reference Range Xray : Abdomen 3v (Upright and KUB with PA CXR) - IN HOUSE 2018-01-15 PROCEDURES Procedure Date Ordered Result Body Site X-RAY EXAM ABDOMEN 3+ VIEWS Jan 15, 2018 INSTRUCTIONS MEDICATIONS ADMINISTERED No Known Medications MEDICAL [...]
--- OUTSIDE RECORDS SUMMARY | 2018-03-24 15:36 | XMS REPORT ---
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 [id number], [place] [address] Apr, [facility] [place] [facility] [address] [id number] [place] [address]- 7723 15 Apr, 2012 [facility] [place] [facility] [address] [id number] [place] [address] Apr, [facility] [place] [facility] [address] [id number] [place] [address] Apr, [facility] [place] [facility] [address] [id number], [place] [address]662 10 Apr, 2012 [facility] [address] [id number] [place] [address]- 4846 10 Apr, 2012 [facility] [place] [facility] [address] [facility] [id number], [place] [address]- 69[address] Feb, [facility] [place] [facility] [address] [facility] [id number] [place] [address] 9758 Feb, [facility] [place] [facility] [address] [id number] [place] [address]- [address]164 04 Feb, 2012 [facility] [place] [facility] [address] [facility] [id number] [place] [address], [place] [address]168 13 Jan, 2012 [facility] [place] [facility] [address] [facility] [id number] [place] [address]- 5036 13 Jan, 2012 [facility] [id number], [place] [address] 15 Oct, 2011 [facility] [place] [facility] [address] [facility] [id number] [place] [address]- 6627 14 Oct, 2011 [facility] [place] [facility] [address] [id number] [place] [address]- [address]647 05 Oct, 2011 [facility] [place] [facility] [id number] [place] [address]- [address] September, [facility] [place] [facility] [address] [facility] [id number], [place] [address] 06 Aug, 2011 [facility] [place] [facility] [address] [facility] [id number], [place] [address]- 49[address] May, [facility] [place] [facility] [address] [id number], [place] [address]- 6108 Apr, [facility] [place] [facility] [address] [facility] [id number] [place] [address]- 1062 19 Apr, 2011 [facility] [place] [facility] [address] [id number], [place] [address]- 5816 Apr, [facility] [place] [facility] [address] [id number] [place] [address]- 5070 13 Apr, 2011 [facility] [place] [facility] [address] [id number] [place] [address]- 2290 14 Mar, 2011 [facility] [place] [facility] [address] [id number] [place] [address]- 4913 14 Mar, 2011 [facility] [place] [facility] [address] [id number] [place] [address]- 3329 14 Mar, 2011 [facility] [place] [facility] [address] [id number] [place] [address]- 9249 Mar, [facility] [place] [facility] [address] [id number] [place] [address]- 7859 17 Feb, 2011 [facility] [place] [facility] [address] [id number] [place] [address]- 8785 17 Feb, 2011 [facility] [place] [facility] [address] [id number] [place] [address]- 9428 10 Feb, 2011 [facility] [place] [facility] [address] [id number] [place] [address] 10 Feb, 2011 [facility] [place] [facility] [address] [id number] [place] [address]- 7490 September, [facility] [place] [facility] [address] [id number] [place] [address] September, [facility] [place] [facility] [address] [id number] [place] [address]- 8963 Apr, [facility] [place] [facility] [address] [id number] [place] [address]- 1176 Apr, [facility] [place] [facility] [address] [id number] [place] [address]- 6307 Mar, [facility] [place] [facility] [address] [id number] [place] [address]- 3857 Mar, [facility] [place] [facility] [address] [id number] [place] [address]- [address] Mar, [facility] [id number], [place] [address]- 117[address] Mar, [facility] [id number], [place] [address]- 2598 Mar, [facility] [address]65[address], [place] [address] Feb, [facility] [id number] [place] [address] 8[address]647- [address]056 Feb, [facility] [id number] [place] [address]- 1165 Feb, [facility] [id number] [place] [address]- 9801 Jan, [facility] [id number] [place] [address]- 5354 Jun, [facility] [id number] [place] [address]- 4701 Mar, [facility] [address]65[address], [place] [address] Oct, [facility] [address]65[address], [place] [address]- [address] Oct, [facility] [address], [place] [address]- 67[address] September, IMMUNIZATIONS No Known Immunizations SOCIAL HISTORY Never Assessed REASON FOR VISIT [facility] phone call PLAN OF CARE VITAL SIGNS MEDICATIONS Unknown [...]
--- OUTSIDE RECORDS SUMMARY | 2018-03-24 15:36 | XMS REPORT ---
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 [facility] [place] [facility] [address] [id number] [place] [address]- 3469 12 Apr, 2012 [facility] [place] [facility] [address] [id number] [place] [address]- 3288 10 Apr, 2012 [facility] [place] [facility] [address] [id number] [place] [address] 10 Apr, 2012 [facility] [place] [facility] [address] [id number] [place] [address]- 4983 Feb, [facility] [place] [facility] [address] [id number] [place] [address]- 7385 Feb, [facility] [place] [facility] [address] [id number] [place] [address]- 9134 04 Feb, 2012 [facility] [place] [facility] [address] [id number] [place] [address]- 6075 13 Jan, 2012 [facility] [place] [facility] [address] [id number] [place] [address]- 0224 13 Jan, 2012 [facility] [place] [facility] [address] [id number] [place] [address]- 9980 15 Oct, 2011 [facility] [place] [facility] [address] [id number] [address] 8447 14 Oct, 2011 [facility] [place] [facility] [address] [id number] [place] [address]- 0014 05 Oct, 2011 [facility] [place] [facility] [address] [id number] [place] [address] September, [facility] [place] [facility] [address] [id number] [place] [address]- 2183 Aug, [facility] [place] [facility] [address] [id number] [place] [address]- 2143 May, [facility] [place] [facility] [address] [id number] [place] [address]- 3019 Apr, [facility] [place] [facility] [address] [id number] [place] [address]- 0444 19 Apr, 2011 [facility] [place] [facility] [address] [id number] [place] [address]- 0216 19 Apr, 2011 [facility] [place] [facility] [address] [id number] [place] [address]- 9080 13 Apr, 2011 [facility] [place] [facility] [address] [id number] [place] [address]- 4477 14 Mar, 2011 [facility] [place] [facility] [address] [id number] [place] [address]- 0261 14 Mar, 2011 [facility] [place] [facility] [address] [id number] [place] [address]- 9561 14 Mar, 2011 [facility] [place] [facility] [address] [id number] [place] [address]- 9458 Mar, [facility] [place] [facility] [address] [id number] [place] [address]- 9353 17 Feb, 2011 [facility] [place] [facility] [address] [id number] [place] [address]- 1205 17 Feb, 2011 [facility] [place] [facility] [address] [id number] [place] [address]- 8671 10 Feb, 2011 [facility] [place] [facility] [address] [id number] [place] [address]- 0774 10 Feb, 2011 [facility] [place] [facility] [address] [id number] [place] [address]- 6987 September, [facility] [place] [facility] [address] [id number] [place] [address]- 6398 September, [facility] [place] [facility] [address] [id number] [place] [address]- 0385 Apr, [facility] [place] [facility] [address] [id number] [place] [address]- 4115 Apr, [facility] [place] [facility] [address] [id number] [place] [address]- 5346 29 Mar, 2010 [facility] [address] [address] Mar, [facility] [address] [address] Mar, [facility] [address] [address]- 5[address] Mar, [facility] [id number] [place] [address]- [address]248 Mar, [facility] [address] [address]- 6650 Feb, [facility] [id number] [place] [address]- [address]235 Feb, [facility] [address] [address] Feb, [facility] [address] [address]- 2913 Jan, [facility] [address] [address]- 2194 Jun, [facility] [address] [address]- 9195 Mar, [facility] [address] [address]- 3376 Oct, [facility] [address] [address]- 67[address] Oct, [facility] [id number] [address] September, IMMUNIZATIONS No Known Immunizations SOCIAL HISTORY Never Assessed REASON FOR VISIT [facility] follow up--[place] PLAN OF CARE Activity Details Follow Up 3 Months, prn Reason:CHM/CKD/Pain VITAL SIGNS Height 62.1 in 2017-11-26 Weight 209.6 lbs 2017-11-26 Temperature 97.8 degrees Fahrenheit 2017-11-26 Heart Rate 64 bpm 2017-11-26 Respiratory Rate 20 2017-11-26 BMI 38.21 kg/m2 2017-11-26 Blood pressure systolic 124 mmHg 2017-11-26 Blood pressure diastolic 78 mmHg 2017-11-26 MEDICATIONS Medication Instructions Dosage Frequency Start Date End Date Duration Status Omeprazole 40 mg Orally 2 times a day 1 capsule 12h Active Folic Acid 1 MG Orally Once a day 1 tablet 24h 30 Active Symbicort 160-4.5 MCG/ACT Inhalation Twice a day 1 puff 12h 30 days Active Zocor 40 mg Orally Once a day 1 tablet in the evening 24h 30 Active Durezol 0.05 % Ophthalmic 4 times a day 1 drop into affected eye 6h Active Nystatin 041297 UNIT/GM Externally Twice a day apply thin layer under breasts 12h Nov, Dec, 10 days Active Propranolol HCl 20 mg Orally twice a day 1 tablet 12h Active Magnesium 250 MG Orally Once a day 1 tablet with a meal 24h Active Trazodone HCl 100 mg Orally Once a day 1 tablet at bedtime as needed 24h Active Amitriptyline HCl 10 mg Orally Once a day 1 tablet 24h Nov, 30 day(s) Active Venlafaxine HCl ER 75 MG Orally Once a day 1 capsule with food 24h Active Colestipol HCl 1 GM Orally Once a day 2 tablets 24h Active RESULTS No Results PROCEDURES Procedure Date Ordered Result Body Site RENAL FUNCTION PANEL November 26, 2017 COMPLETE CBC W/AUTO DIFF WBC November 26, 2017 ASSAY OF URINE CREATININE November 26, 2017 ASSAY OF PROTEIN, URINE November 26, 2017 VENIPUNCT, ROUTINE* November 26, 2017 ASSAY OF PARATHORMONE November 26, 2017 ASSAY OF VITAMIN D November 26, 2017 ASSAY OF IRON November 26, 2017 IRON BINDING TEST November 26, 2017 INSTRUCTIONS MEDICATIONS ADMINISTERED No Known Medications [...] for kidney/electrolyte issues 11/2017 Hospitalization History [facility] Kidney issues 11/2017
--- OUTSIDE RECORDS SUMMARY | 2018-03-24 15:37 | XMS REPORT ---
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 [address] [id number] [place] [address]- 0725 Jul, [facility] [address] [id number] [place] [address]- 9446 28 Jun, 2012 [facility] [address] [id number] [place] [address]- 6287 Jun, [facility] [place] [facility] [address] [id number] [place] [address]- 7516 Apr, [facility] [address] [id number] [place] [address]- 7059 Apr, [facility] [place] [facility] [address] [id number] [place] [address]- 1823 Apr, [facility] [place] [facility] [address] [id number], [place] [address]- 5387 Apr, [facility] [place] [facility] [address] [id number] [place] [address]- 2725 15 Apr, 2012 [facility] [place] [facility] [address] [id number] [place] [address] Apr, [facility] [place] [facility] [address] [id number] [place] [address] Apr, [facility] [place] [facility] [address] [id number], [place] [address]- 3904 10 Apr, 2012 [facility] [address] [id number] [place] [address]- 4691 10 Apr, 2012 [facility] [place] [facility] [address] [facility] [id number], [place] [address]- 6860 Feb, [facility] [place] [facility] [address] [facility] [id number] [place] [address]- 6390 Feb, [facility] [place] [facility] [address] [id number] [place] [address]- 9194 04 Feb, 2012 [facility] [place] [facility] [address] [facility] [id number] [place] [address], [place] [address]- 7589 13 Jan, 2012 [facility] [place] [facility] [address] [facility] [id number] [place] [address]- 0181 13 Jan, 2012 [facility] [address], [place] [address] 9392 15 Oct, 2011 [facility] [place] [facility] [address] [facility] [id number] [place] [address]- 7455 14 Oct, 2011 [facility] [place] [facility] [address] [id number] [place] [address]- 1771 05 Oct, 2011 [facility] [place] [facility] [id number] [place] [address] 9046 September, [facility] [place] [facility] [address] [facility] [id number], [place] [address]- 5323 06 Aug, 2011 [facility] [place] [facility] [address] [facility] [id number], [place] [address]- 3079 May, [facility] [place] [facility] [address] [id number], [place] [address]- 6366 Apr, [facility] [place] [facility] [address] [facility] [id number] [place] [address]- 2723 19 Apr, 2011 [facility] [place] [facility] [address] [id number], [place] [address]- 9445 Apr, [facility] [place] [facility] [address] [id number] [place] [address]- 8236 13 Apr, 2011 [facility] [place] [facility] [address] [id number] [place] [address]- 8328 14 Mar, 2011 [facility] [place] [facility] [address] [id number] [place] [address]- 5952 14 Mar, 2011 [facility] [place] [facility] [address] [id number] [place] [address]- 4085 14 Mar, 2011 [facility] [place] [facility] [address] [id number] [place] [address]- 0696 Mar, [facility] [place] [facility] [address] [id number] [place] [address]- 8981 17 Feb, 2011 [facility] [place] [facility] [address] [id number] [place] [address]- 1511 17 Feb, 2011 [facility] [place] [facility] [address] [id number] [place] [address]- 6464 10 Feb, 2011 [facility] [place] [facility] [address] [id number] [place] [address] 10 Feb, 2011 [facility] [place] [facility] [address] [id number] [place] [address]- 6211 September, [facility] [place] [facility] [address] [id number] [place] [address] September, [facility] [place] [facility] [address] [id number] [place] [address]- 6225 Apr, [facility] [place] [facility] [address] [id number] [place] [address]- 6750 Apr, [facility] [place] [facility] [address] [id number] [place] [address]- 0882 Mar, [facility] [place] [facility] [address] [id number] [place] [address]- 4963 Mar, [facility] [place] [facility] [address] [id number] [place] [address]- 9390 Mar, [facility] [address] [id number], [place] [address]- 0938 16 Mar, 2010 [facility] [address], [place] [address]- 9492 Mar, [facility] [address]65[address], [place] [address]- 5179 Feb, [facility] [id number] [place] [address] 652669- 9565 Feb, [facility] [address], [place] [address]- 7425 Feb, [facility] [id number] [place] [address] 943140- 8505 Jan, [facility] [id number] [place] [address]- 0207 Jun, [facility] [id number] [place] [address]95- 5741 Mar, [facility] [address], [place] [address]- 3351 Oct, [facility] [address], [place] [address]- 2870 Oct, [facility] [address], [place] [address]- 8346 September, IMMUNIZATIONS No Known Immunizations SOCIAL HISTORY Never Assessed REASON FOR VISIT Medication question PLAN OF CARE VITAL SIGNS MEDICATIONS Medication Instructions Dosage Frequency Start Date End Date Duration Status Venlafaxine HCl ER 75 MG Orally Once a day 1 capsule with food 24h Active RESULTS No Results PROCEDURES No Known [...]
--- OUTSIDE RECORDS SUMMARY | 2018-03-24 15:38 | XMS REPORT ---
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 [address] [id number] [place] [address] 10 Apr, 2012 [facility] [address] [id number], [place] [address]- 1682 10 Apr, 2012 [facility] [address] [id number] [place] [address]- 4155 12 Feb, 2012 [facility] [address] [id number], [place] [address]- 7[address] 12 Feb, 2012 [facility] [address] [id number] [address]- 4786 04 Feb, 2012 [facility] [address] [id number] [place] [address]- 7629 13 Jan, 2012 [facility] [id number] [place] [address], [place] [address]- 5317 13 Jan, 2012 [facility] [address] [id number] [place] [address]- 7914 15 Oct, 2011 [facility] [id number], [place] [address]- 7985 14 Oct, 2011 [facility] [address] [id number] [place] [address]- 2669 05 Oct, 2011 [facility] [address] [id number] [address]- 0457 September, [facility] [address] [id number] [address]- 9806 06 Aug, 2011 [facility] [address] [id number], [place] [address]- [address]345 May, [facility] [address] [id number], [place] [address]- 0221 20 Apr, 2011 [facility] [address] [id number] [place] [address]- 0437 19 Apr, 2011 [facility] [address] [id number] [place] [address]- 4612 19 Apr, 2011 [facility] [address] [id number], [place] [address]- 7164 13 Apr, 2011 [facility] [address] [id number] [place] [address]- 5693 14 Mar, 2011 [facility] [address] [id number] [place] [address]- 6555 14 Mar, 2011 [facility] [address] [id number] [place] [address]- 9694 14 Mar, 2011 [facility] [address] [id number] [place] [address]- 7502 01 Mar, 2011 [facility] [address] [id number] [place] [address]- 6920 17 Feb, 2011 [facility] [address] [id number] [place] [address]- 1906 17 Feb, 2011 [facility] [address] [id number] [place] [address]- 7849 10 Feb, 2011 [facility] [address] [id number] [place] [address]- 8256 10 Feb, 2011 [facility] [address] [id number] [place] [address]- 0112 September, [facility] [address] [id number] [place] [address]- 6388 September, [facility] [address] [id number] [place] [address]- 4753 13 Apr, 2010 [facility] [address] [id number] [place] [address]- 5458 Apr, [facility] [address] [id number] [place] [address]- 2547 Mar, [facility] [address] [id number] [place] [address]- 6478 29 Mar, 2010 [facility] [address] [id number] [place] [address]- 2742 23 Mar, 2010 [facility] [address] [id number] [place] [address]- 9854 16 Mar, 2010 [facility] [address] [id number], [place] [address]- 9299 16 Mar, 2010 [facility] [id number], [place] [address]- 7482 Feb, [facility] [address] [id number], [place] [address]- 4108 Feb, [facility] [id number], [place] [address]- 3415 Feb, [facility] [id number], [place] [address]- 2589 Jan, [facility] [id number], [place] [address]- 8577 Jun, [facility] [id number], [place] [address]- 6109 Mar, [facility] [id number], [place] [address]- 7490 Oct, [facility] [address] [id number], [place] [address]- 1193 Oct, [facility] [address] [id number], [place] [address]- 4152 September, IMMUNIZATIONS No Known Immunizations SOCIAL HISTORY Never Assessed REASON FOR VISIT US results PLAN OF CARE VITAL SIGNS MEDICATIONS Unknown [...]
--- OUTSIDE RECORDS SUMMARY | 2018-03-24 15:38 | XMS REPORT ---
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 8652 Aug, [facility] [place] [facility] [address] [id number] [place] [address]- [address]15 18 Jul, 2012 [facility] [place] [facility] [address] [id number] [place] [address]- 0950 11 Jul, 2012 [facility] [place] [facility] [address] [id number] [place] [address]- 5104 11 Jul, 2012 [facility] [place] [facility] [address] [id number] [place] [address]- 3311 04 Jul, 2012 [facility] [place] [facility] [address] [id number] [place] [address]- 8468 Jul, [facility] [place] [facility] [address] [id number] [place] [address]- 5006 28 Jun, 2012 [facility] [place] [facility] [address] [id number] [place] [address]- 5486 Jun, [facility] [place] [facility] [address] [id number] [place] [address]- 4367 Apr, [facility] [place] [facility] [address] [id number] [place] [address]- 4234 Apr, [facility] [place] [facility] [address] [id number] [place] [address]- 6833 Apr, [facility] [place] [facility] [address] [id number] [place] [address]- 8833 Apr, [facility] [place] [facility] [address] [id number], [place] [address]- 1426 15 Apr, 2012 [facility] [place] [facility] [address] [id number] [place] [address] 2544 15 Apr, 2012 [facility] [place] [facility] [address] [id number] [place] [address] 12 Apr, 2012 [facility] [place] [facility] [address] [id number] [place] [address] 10 Apr, 2012 [facility] [place] [facility] [address] [id number], [place] [address]- 3600 10 Apr, 2012 [facility] [address] [id number] [place] [address]- 2761 12 Feb, 2012 [facility] [place] [facility] [address] [facility] [id number], [place] [address]- 3760 12 Feb, 2012 [facility] [address] [id number] [place] [address]- 5816 04 Feb, 2012 [facility] [place] [facility] [address] [id number] [place] [address]- 5346 13 Jan, 2012 [facility] [address] [facility] [id number] [place] [address], [place] [address]- 1310 13 Jan, 2012 [facility] [place] [facility] [address] [facility] [id number] [place] [address]- 2562 15 Oct, 2011 [facility] [id number] [address]- 1490 14 Oct, 2011 [facility] [place] [facility] [address] [facility] [id number] [place] [address]- 7808 05 Oct, 2011 [facility] [address] [id number] [place] [address]- 5437 September, [facility] [place] [facility] [address] [id number], [place] [address]- 1459 06 Aug, 2011 [facility] [address] [id number], [place] [address]- 5702 May, [facility] [place] [facility] [address] [facility] [id number], [place] [address]- 5726 20 Apr, 2011 [facility] [place] [facility] [address] [id number] [place] [address]- 5679 19 Apr, 2011 [facility] [place] [facility] [address] [facility] [id number] [place] [address]- 9634 19 Apr, 2011 [facility] [place] [facility] [address] [id number], [place] [address]- 4624 13 Apr, 2011 [facility] [place] [facility] [address] [id number] [place] [address]- 5105 14 Mar, 2011 [facility] [place] [facility] [address] [id number] [place] [address]- 9485 14 Mar, 2011 [facility] [place] [facility] [address] [id number] [place] [address]- 1247 14 Mar, 2011 [facility] [place] [facility] [address] [id number] [place] [address]- 1003 01 Mar, 2011 [facility] [place] [facility] [address] [id number] [place] [address]- 8527 17 Feb, 2011 [facility] [place] [facility] [address] [id number] [place] [address]- 3381 17 Feb, 2011 [facility] [place] [facility] [address] [id number] [place] [address]- 9034 10 Feb, 2011 [facility] [place] [facility] [address] [id number] [place] [address]- 3549 10 Feb, 2011 [facility] [place] [facility] [address] [id number] [place] [address]- 5347 September, [facility] [place] [facility] [address] [id number] [place] [address]- 9341 September, [facility] [place] [facility] [address] [id number] [place] [address]- 7219 13 Apr, 2010 [facility] [place] [facility] [address] [id number] [place] [address]- 2296 Apr, [facility] [place] [facility] [address] [id number] [place] [address]- 254 Mar, [facility] [place] [facility] [address] [id number] [place] [address]- 1428 29 Mar, 2010 [facility] [place] [facility] [address] [id number] [place] [address]- 2694 23 Mar, 2010 [facility] [place] [facility] [address] [id number] [place] [address] 8154 Mar, [facility] [address] [id number], [place] [address]- 0018 16 Mar, 2010 [facility] [address], [place] [address] 4143 Feb, [facility] [address] [id number], [place] [address]- 6796 Feb, [facility] [address], [place] [address]- 5961 Feb, [facility] [address], [place] [address]- 0041 Jan, [facility] [id number] [place] [address]- 8146 Jun, [facility] [address], [place] [address]- 2486 Mar, [facility] [address], [place] [address]- 5984 Oct, [facility] [address] [id number], [place] [address]- 4703 Oct, [facility] [address] [id number], [place] [address]- 8530 September, IMMUNIZATIONS No Known Immunizations SOCIAL HISTORY Never Assessed REASON FOR VISIT Requests return call PLAN OF CARE VITAL SIGNS MEDICATIONS Unknown Medications RESULTS Name Result Date Reference Range Ultrasound : Renal, COMPLETE Ultrasound : Renal, COMPLETE 2017-11-17 PROCEDURES No Known procedures INSTRUCTIONS MEDICATIONS ADMINISTERED [...] kidney/electrolyte issues 11/2017 Hospitalization History Via [facility] [place] Kidney issues 11/2017
--- OUTSIDE RECORDS SUMMARY | 2018-03-24 15:39 | XMS REPORT ---
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 2012 [facility] [place] [facility] [address] [id number] [place] [address] 8[address] Jul, [facility] [place] [facility] [address] [id number] [place] [address]- 3862 28 Jun, 2012 [facility] [place] [facility] [address] [id number] [place] [address]- 8626 Jun, [facility] [place] [facility] [address] [id number] [place] [address]- [address]291 Apr, [facility] [place] [facility] [address] [id number] [place] [address] 7161 Apr, [facility] [place] [facility] [address] [id number] [place] [address] 2473 Apr, [facility] [place] [facility] [address] [id number] [place] [address] Apr, [facility] [place] [facility] [address] [id number] [place] [address] 6030 15 Apr, 2012 [facility] [place] [facility] [address] [id number] [place] [address]- 4241 15 Apr, 2012 [facility] [place] [facility] [address] [id number] [place] [address] 12 Apr, 2012 [facility] [place] [facility] [address] [id number] [place] [address] 10 Apr, 2012 [facility] [place] [facility] [address] [id number] [place] [address]- 7717 10 Apr, 2012 [facility] [place] [facility] [address] [id number] [place] [address] 2240 12 Feb, 2012 [facility] [place] [facility] [address] [id number] [place] [address]- 5356 12 Feb, 2012 [facility] [address] [id number] [place] [address]- 7895 04 Feb, 2012 [facility] [place] [facility] [address] [id number] [place] [address]- 7545 13 Jan, 2012 [facility] [place] [facility] [address] [id number] [place] [address]- 8782 13 Jan, 2012 [facility] [place] [facility] [address] [id number] [place] [address]- 6264 15 Oct, 2011 [facility] [place] [facility] [address] [facility] [id number] [place] [address]- 5285 14 Oct, 2011 [facility] [place] [facility] [address] [id number] [place] [address]- 7749 05 Oct, 2011 [facility] [place] [facility] [address] [facility] [id number] [place] [address]- 2453 September, [facility] [place] [facility] [address] [facility] [id number] [place] [address]- 1671 06 Aug, 2011 [facility] [place] [facility] [address] [id number] [place] [address]- 9864 May, [facility] [place] [facility] [address] [id number] [place] [address]- 2664 20 Apr, 2011 [facility] [place] [facility] [address] [id number] [place] [address]- [address]3 Apr, [facility] [place] [facility] [address] [facility] [id number] [place] [address]- 7908 19 Apr, 2011 [facility] [place] [facility] [address] [id number] [place] [address]- 6530 13 Apr, 2011 [facility] [place] [facility] [address] [id number] [place] [address]- 5371 14 Mar, 2011 [facility] [place] [facility] [address] [id number] [place] [address]- 7718 14 Mar, 2011 [facility] [place] [facility] [address] [id number] [place] [address]- 6839 14 Mar, 2011 [facility] [place] [facility] [address] [id number] [place] [address]- 0937 Mar, [facility] [place] [facility] [address] [id number] [place] [address]- 9646 17 Feb, 2011 [facility] [place] [facility] [address] [id number] [place] [address]- 0134 17 Feb, 2011 [facility] [place] [facility] [address] [id number] [place] [address]- 3276 Feb, [facility] [place] [facility] [address] [id number] [place] [address]- 5982 Feb, [facility] [place] [facility] [address] [id number] [place] [address]- 9314 September, [facility] [place] [facility] [address] [id number] [place] [address]- 4705 September, [facility] [place] [facility] [address] [id number] [place] [address]- 4008 Apr, [facility] [place] [facility] [address] [id number] [place] [address]- 6280 Apr, [facility] [place] [facility] [address] [id number] [place] [address]- 2342 Mar, [facility] [place] [facility] [address] [id number] [place] [address]- 0571 Mar, [facility] [place] [facility] [address] [id number] [place] [address]- 6130 Mar, [facility] [place] [facility] [address] [id number], [place] [address]- 2744 16 Mar, 2010 [facility] [address] [id number] [address] [address] 16 Mar, 2010 [facility] [address] [facility] [id number] [address] Feb, [facility] [id number] [address] 8614 Feb, [facility] [id number] [address]6 Feb, [facility] [id number] [address] Jan, [facility] [id number] Jun, [facility] [id number], [place] [address] 7722 Mar, [facility] [id number] [address]- [address] Oct, [facility] [address] [id number], [place] [address]- 6964 Oct, [facility] [address] [id number], [place] [address]40 September, IMMUNIZATIONS No Known Immunizations SOCIAL HISTORY Never Assessed REASON FOR VISIT Lab results PLAN OF CARE VITAL SIGNS MEDICATIONS [...] for kidney/electrolyte issues 11/2017 Hospitalization History [facility] Kidney issues 11/2017
--- OUTSIDE RECORDS SUMMARY | 2018-03-24 15:40 | XMS REPORT ---
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 [address] [id number] [place] [address]- [address] 18 Jul, 2012 [facility] [place] [facility] [address] [id number] [place] [address]- [address]605 11 Jul, 2012 [facility] [place] [facility] [address] [id number] [place] [address] 3296 11 Jul, 2012 [facility] [place] [facility] [address] [id number] [place] [address]- 4[address] 04 Jul, 2012 [facility] [place] [facility] [address] [id number] [place] [address] Jul, [facility] [place] [facility] [address] [id number] [place] [address] 270[address] 28 Jun, 2012 [facility] [place] [facility] [address] [id number] [place] [address]- 7929 Jun, [facility] [place] [facility] [address] [id number] [place] [address] Apr, [facility] [place] [facility] [address] [id number] [place] [address] 4808 Apr, [facility] [place] [facility] [address] [id number] [place] [address]- 9688 Apr, [facility] [place] [facility] [address] [id number] [place] [address]- 7069 Apr, [facility] [place] [facility] [address] [id number], [place] [address]- [address] 15 Apr, 2012 [facility] [place] [facility] [address] [id number] [place] [address] 254 15 Apr, 2012 [facility] [place] [facility] [address] [id number] [place] [address] 12 Apr, 2012 [facility] [place] [facility] [address] [id number] [place] [address] 10 Apr, 2012 [facility] [place] [facility] [address] [id number], [place] [address] 10 Apr, 2012 [facility] [address] [id number] [place] [address]- 7972 12 Feb, 2012 [facility] [place] [facility] [address] [facility] [id number], [place] [address]- 7[address] 12 Feb, 2012 [facility] [address] [id number] [place] [address]- 4[address] 04 Feb, 2012 [facility] [place] [facility] [address] [id number] [place] [address]- 8704 13 Jan, 2012 [facility] [address] [facility] [id number] [place] [address], [place] [address]- 7848 13 Jan, 2012 [facility] [place] [facility] [address] [facility] [id number] [place] [address]- 7059 15 Oct, 2011 [facility] [id number], [place] [address] 14 Oct, 2011 [facility] [place] [facility] [address] [facility] [id number] [place] [address]- 8281 05 Oct, 2011 [facility] [address] [id number] [place] [address] 58[address] September, [facility] [place] [facility] [address] [id number], [place] [address] 6[address] 06 Aug, 2011 [facility] [address] [id number], [place] [address] May, [facility] [place] [facility] [address] [facility] [id number], [place] [address]- 6167 20 Apr, 2011 [facility] [place] [facility] [address] [id number] [place] [address]- 4365 19 Apr, 2011 [facility] [place] [facility] [address] [facility] [id number] [place] [address]- 9179 19 Apr, 2011 [facility] [place] [facility] [address] [id number], [place] [address] 0908 13 Apr, 2011 [facility] [place] [facility] [address] [id number] [place] [address]- 7266 14 Mar, 2011 [facility] [place] [facility] [address] [id number] [place] [address]- 5504 14 Mar, 2011 [facility] [place] [facility] [address] [id number] [place] [address]- 2179 14 Mar, 2011 [facility] [place] [facility] [address] [id number] [place] [address]- 4296 01 Mar, 2011 [facility] [place] [facility] [address] [id number] [place] [address]- 6588 17 Feb, 2011 [facility] [place] [facility] [address] [id number] [place] [address]- 9134 17 Feb, 2011 [facility] [place] [facility] [address] [id number] [place] [address]- 6570 10 Feb, 2011 [facility] [place] [facility] [address] [id number] [place] [address]- 6594 10 Feb, 2011 [facility] [place] [facility] [address] [id number] [place] [address]- 0103 September, [facility] [place] [facility] [address] [id number] [place] [address]- 9426 September, [facility] [place] [facility] [address] [id number] [place] [address]- 0184 13 Apr, 2010 [facility] [place] [facility] [address] [id number] [place] [address]- 5253 Apr, [facility] [place] [facility] [address] [id number] [place] [address]- 2542 Mar, [facility] [place] [facility] [address] [id number] [place] [address]- 4081 29 Mar, 2010 [facility] [place] [facility] [address] [id number] [place] [address]- 1982 23 Mar, 2010 [facility] [place] [facility] [address] [id number] [place] [address]- 3563 16 Mar, 2010 [facility] [address] [id number], [place] [address]- 4764 16 Mar, 2010 [facility] [id number], [place] [address]- [address] Feb, [facility] [address] [id number], [place] [address]- 3709 Feb, [facility] [id number] [place] [address] 765522- 5078 Feb, [facility] [id number] [address] Jan, [facility] [id number] [place] [address]- 8228 Jun, [facility] [id number] [place] [address] 88[address]95- 3565 Mar, [facility] [id number], [place] [address]- 7433 Oct, [facility] [id number], [place] [address]- 26[address] Oct, [facility] [address] [id number], [place] [address]- 9127 September, IMMUNIZATIONS No Known Immunizations SOCIAL HISTORY Never Assessed REASON FOR VISIT Lab (walk-in)--[facility] PLAN OF CARE VITAL SIGNS MEDICATIONS Unknown Medications RESULTS No Results PROCEDURES Procedure Date Ordered Result Body Site ACUTE HEPATITIS PANEL October 23, 2017 COMPREHEN METABOLIC PANEL October 23, 2017 VENIPUNCT, ROUTINE* October 23, 2017 ASSAY OF MAGNESIUM October 23, 2017 INSTRUCTIONS MEDICATIONS ADMINISTERED No Known Medications [...]
--- OUTSIDE RECORDS SUMMARY | 2018-03-24 15:41 | XMS REPORT ---
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 [id number] [place] [address] 2546 Apr, [facility] [place] [facility] [address] [id number] [place] [address]- 2549 Apr, [facility] [place] [facility] [address] [id number] [place] [address]- 2741 15 Apr, 2012 [facility] [place] [facility] [address] [id number] [place] [address]- 2546 15 Apr, 2012 [facility] [place] [facility] [address] [id number] [place] [address] 12 Apr, 2012 [facility] [place] [facility] [address] [id number] [place] [address]- 9174 Apr, [facility] [place] [facility] [address] [id number] [place] [address]- 3893 10 Apr, 2012 [facility] [place] [facility] [address] [id number] [place] [address]- 2439 Feb, [facility] [place] [facility] [address] [id number] [place] [address] 3870 Feb, [facility] [address] [id number] [place] [address]- 4629 04 Feb, 2012 [facility] [place] [facility] [address] [id number] [place] [address]- 4525 13 Jan, 2012 [facility] [address] [id number] [place] [address]- 1810 13 Jan, 2012 [facility] [address] [id number] [place] [address]- 2257 15 Oct, 2011 [facility] [place] [facility] [address] [id number] [place] [address]- 2799 14 Oct, 2011 [facility] [place] [facility] [address] [id number] [place] [address]- [address]403 05 Oct, 2011 [facility] [place] [facility] [address] [id number] [place] [address]- 1212 September, [facility] [place] [facility] [address] [id number] [place] [address]- 7836 06 Aug, 2011 [facility] [place] [facility] [address] [id number] [place] [address]- 3148 May, [facility] [place] [facility] [address] [id number] [place] [address]- 9616 Apr, [facility] [place] [facility] [address] [id number] [place] [address]- 8120 Apr, [facility] [place] [facility] [address] [id number] [place] [address]- 3232 Apr, [facility] [place] [facility] [address] [id number] [place] [address]- 4557 13 Apr, 2011 [facility] [place] [facility] [address] [id number] [place] [address]- 7373 14 Mar, 2011 [facility] [place] [facility] [address] [id number] [place] [address]- 9679 14 Mar, 2011 [facility] [place] [facility] [address] [id number] [place] [address]- 4973 14 Mar, 2011 [facility] [place] [facility] [address] [id number] [place] [address] Mar, [facility] [place] [facility] [address] [id number] [place] [address]- 2173 17 Feb, 2011 [facility] [place] [facility] [address] [id number] [place] [address]- 1692 17 Feb, 2011 [facility] [place] [facility] [address] [id number] [place] [address]- 4513 Feb, [facility] [place] [facility] [address] [id number] [place] [address]- 9755 Feb, [facility] [place] [facility] [address] [id number] [place] [address]- 7312 September, [facility] [place] [facility] [address] [id number] [place] [address]- 2281 September, [facility] [place] [facility] [address] [id number] [place] [address]- 7416 Apr, [facility] [place] [facility] [address] [id number] [place] [address]- 5343 Apr, [facility] [place] [facility] [address] [id number] [place] [address] Mar, [facility] [place] [facility] [address] [id number] [place] [address]- 4851 Mar, [facility] [place] [facility] [id number] [address] Mar, [facility] [id number], [place] [address] Mar, [facility] [id number], [place] [address]- [address] Mar, [facility] [id number] [address]- [address] Feb, [facility] [id number] [address]- 3929 Feb, [facility] [address] [place] [id number] [place] [address]- 3230 Feb, [facility] [id number], [place] [address]- 6770 Jan, [facility] [id number] [place] [address]- [address]35 Jun, [facility] [id number], [place] [address]- [address]15 Mar, [facility] [id number] [address]- 8432 Oct, [facility] [id number], [place] [address]- 8[address] Oct, [facility] [id number], [place] [address]- 0683 September, IMMUNIZATIONS No Known Immunizations SOCIAL HISTORY Never Assessed REASON FOR VISIT Transition of Care/Hospital follow up-radha pickard PLAN OF CARE Activity Details Follow Up 3 Months, prn Reason:CHM Pending Test A1C (IN HOUSE) VITAL SIGNS Height 62.1 in 2017-10-09 Weight 209.0 lbs 2017-10-09 Temperature 98.1 degrees Fahrenheit 2017-10-09 Heart Rate 88 bpm 2017-10-09 Respiratory Rate 20 2017-10-09 BMI 38.10 kg/m2 2017-10-09 Blood pressure systolic 110 mmHg 2017-10-09 Blood pressure diastolic 74 mmHg 2017-10-09 MEDICATIONS Medication Instructions Dosage Frequency Start Date End Date Duration Status Zocor 40 mg Orally Once a day 1 tablet in the evening 24h 30 Active Omeprazole 40 mg Orally 2 times a day 1 capsule 12h Active Tramadol HCl 50 MG Orally 3 times a day 1 tablet 8h Active Symbicort 160-4.5 MCG/ACT Inhalation Twice a day 1 puff 12h 30 days Active TobraDex 0.3-0.1 % Ophthalmic every 6 hrs 1 drop into affected eye 6h Jul, 5 days Active Propranolol HCl 20 mg Orally twice a day 1 tablet 12h Active Colestipol HCl 1 GM Orally Once a day 2 tablets 24h Active Milk Thistle 150 MG Active Stelara 45 MG/0.5ML Subcutaneous q12 weeks Not-Taking Lisinopril 40 mg Orally Once a day 1 tablet 24h Active Amlodipine Besylate 10 MG Orally Once a day 1 tablet 24h Active Magnesium 250 MG Orally Once a day 1 tablet with a meal 24h Active Folic Acid 1 MG Orally Once a day 1 tablet 24h 30 Active Trazodone HCl 100 mg Orally Once a day 1 tablet at bedtime as needed 24h Active Venlafaxine HCl ER 150 MG Orally Once a day 1 capsule with food 24h Active RESULTS No Results PROCEDURES Procedure Date Ordered Result Body Site VENIPUNCT, ROUTINE* October 09, 2017 EKG, TRACING (IN-HOUSE) 2017-10-09 N/A COMPLETE CBC W/AUTO DIFF WBC October 09, 2017 09 PANEL (PROFILE 1) October 09, 2017 ASSAY OF MAGNESIUM October 09, 2017 ELECTROCARDIOGRAM, TRACING October 09, 2017 COMPREHEN METABOLIC PANEL October 09, 2017 GLYCATED HEMOGLOBIN TEST October 09, 2017 LIPID PANEL October 09, 2017 ASSAY THYROID STIM HORMONE October 09, 2017 INSTRUCTIONS MEDICATIONS ADMINISTERED No Known Medications [...] kidney/electrolyte issues 11/2017 Hospitalization History Via [facility] Kidney issues 11/2017
--- OUTSIDE RECORDS SUMMARY | 2018-03-24 15:41 | XMS REPORT ---
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 1369 18 Jul, 2012 [facility] [place] [facility] [address] [id number] [place] [address]- 3962 11 Jul, 2012 [facility] [place] [facility] [address] [id number] [place] [address]- 7398 11 Jul, 2012 [facility] [place] [facility] [address] [id number] [place] [address]- 8195 04 Jul, 2012 [facility] [place] [facility] [address] [id number] [place] [address]- 0272 Jul, [facility] [place] [facility] [address] [id number] [place] [address] 8098 28 Jun, 2012 [facility] [place] [facility] [address] [id number] [place] [address] 8636 Jun, [facility] [place] [facility] [address] [id number] [place] [address] 9092 Apr, [facility] [place] [facility] [address] [id number] [place] [address]- 0423 Apr, [facility] [place] [facility] [address] [id number] [place] [address]- 3091 Apr, [facility] [place] [facility] [address] [id number] [place] [address]- 4135 Apr, [facility] [place] [facility] [address] [id number], [place] [address] 7029 15 Apr, 2012 [facility] [place] [facility] [address] [id number] [place] [address] 2548 15 Apr, 2012 [facility] [place] [facility] [address] [id number] [place] [address] 12 Apr, 2012 [facility] [place] [facility] [address] [id number] [place] [address] 10 Apr, 2012 [facility] [place] [facility] [address] [id number], [place] [address] 0992 10 Apr, 2012 [facility] [address] [id number] [place] [address]- 7185 12 Feb, 2012 [facility] [place] [facility] [address] [facility] [id number], [place] [address]- [address] 12 Feb, 2012 [facility] [address] [id number] [address]- 2566 04 Feb, 2012 [facility] [place] [facility] [address] [id number] [place] [address]- 2712 13 Jan, 2012 [facility] [address] [facility] [id number] [place] [address], [place] [address]- 6921 13 Jan, 2012 [facility] [place] [facility] [address] [facility] [id number] [place] [address]- 0077 15 Oct, 2011 [facility] [id number], [place] [address] 14 Oct, 2011 [facility] [place] [facility] [address] [facility] [id number] [place] [address]- 1338 05 Oct, 2011 [facility] [address] [id number] [place] [address] September, [facility] [place] [facility] [address] [id number], [place] [address]90 06 Aug, 2011 [facility] [address] [id number], [place] [address] 8037 May, [facility] [place] [facility] [address] [facility] [id number], [place] [address]- 1380 20 Apr, 2011 [facility] [place] [facility] [address] [id number] [place] [address]- 8267 19 Apr, 2011 [facility] [place] [facility] [address] [facility] [id number] [place] [address]- 9758 19 Apr, 2011 [facility] [place] [facility] [address] [id number], [place] [address] 9737 13 Apr, 2011 [facility] [place] [facility] [address] [id number] [place] [address]- 6830 14 Mar, 2011 [facility] [place] [facility] [address] [id number] [place] [address]- 8242 14 Mar, 2011 [facility] [place] [facility] [address] [id number] [place] [address]- 9521 14 Mar, 2011 [facility] [place] [facility] [address] [id number] [place] [address]- 1653 01 Mar, 2011 [facility] [place] [facility] [address] [id number] [place] [address]- 3984 17 Feb, 2011 [facility] [place] [facility] [address] [id number] [place] [address]- 6299 17 Feb, 2011 [facility] [place] [facility] [address] [id number] [place] [address]- 2429 10 Feb, 2011 [facility] [place] [facility] [address] [id number] [place] [address]- 0943 10 Feb, 2011 [facility] [place] [facility] [address] [id number] [place] [address]- 0841 September, [facility] [place] [facility] [address] [id number] [place] [address]- 6371 September, [facility] [place] [facility] [address] [id number] [place] [address]- 3978 13 Apr, 2010 [facility] [place] [facility] [address] [id number] [place] [address]- 6206 Apr, [facility] [place] [facility] [address] [id number] [place] [address]- 2541 Mar, [facility] [place] [facility] [address] [id number] [place] [address]- 0003 29 Mar, 2010 [facility] [place] [facility] [address] [id number] [place] [address]- 1436 23 Mar, 2010 [facility] [place] [facility] [address] [id number] [place] [address]- 7168 Mar, [facility] [address] [id number], [place] [address]- 0844 16 Mar, 2010 [facility] [id number], [place] [address]- 7703 Feb, [facility] [address] [id number], [place] [address] 4613 Feb, [facility] [address], [place] [address]- 0[address] Feb, [facility] [address], [place] [address] Jan, [facility] [id number] [place] [address] 9840 Jun, [facility] [id number], [place] [address]- 8237 Mar, [facility] [address], [place] [address]- 3309 Oct, [facility] [address] [id number], [place] [address] Oct, [facility] [address] [id number], [place] [address]- 2770 September, IMMUNIZATIONS No Known Immunizations SOCIAL HISTORY Never Assessed REASON FOR VISIT new orders PLAN OF CARE VITAL SIGNS MEDICATIONS Unknown Medications RESULTS Name Result Date Reference Range Ultrasound : Abdominal, COMPLETE 2017-10-27 PROCEDURES No Known procedures INSTRUCTIONS MEDICATIONS ADMINISTERED [...]
--- OUTSIDE RECORDS SUMMARY | 2018-03-24 15:42 | XMS REPORT ---
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 [address] 3140 Aug, [facility] [place] [facility] [address] [id number] [place] [address] 7330 18 Jul, 2012 [facility] [place] [facility] [address] [id number] [place] [address]- 1473 11 Jul, 2012 [facility] [place] [facility] [address] [id number] [place] [address]- 9345 11 Jul, 2012 [facility] [place] [facility] [address] [id number] [place] [address]- 1272 04 Jul, 2012 [facility] [place] [facility] [address] [id number] [place] [address] 7379 Jul, [facility] [place] [facility] [address] [id number] [place] [address] 3854 28 Jun, 2012 [facility] [place] [facility] [address] [id number] [place] [address] 3520 Jun, [facility] [place] [facility] [address] [id number] [place] [address]- 4456 Apr, [facility] [place] [facility] [address] [id number] [place] [address]- 7014 Apr, [facility] [place] [facility] [address] [id number] [place] [address]- 2620 Apr, [facility] [place] [facility] [address] [id number] [place] [address]- 8182 Apr, [facility] [place] [facility] [address] [id number], [place] [address]- 8630 15 Apr, 2012 [facility] [place] [facility] [address] [id number] [place] [address] 254 15 Apr, 2012 [facility] [place] [facility] [address] [id number] [place] [address] 12 Apr, 2012 [facility] [place] [facility] [address] [id number] [place] [address] 10 Apr, 2012 [facility] [place] [facility] [address] [id number], [place] [address]- 7085 10 Apr, 2012 [facility] [address] [id number] [place] [address]- 3355 12 Feb, 2012 [facility] [place] [facility] [address] [facility] [id number], [place] [address]- 4766 12 Feb, 2012 [facility] [address] [id number] [place] [address] 0506 04 Feb, 2012 [facility] [place] [facility] [address] [id number] [place] [address]- 2267 13 Jan, 2012 [facility] [address] [facility] [id number] [place] [address], [place] [address] 1301 13 Jan, 2012 [facility] [place] [facility] [address] [facility] [id number] [place] [address]- 2779 15 Oct, 2011 [facility] [id number], [place] [address] 5438 14 Oct, 2011 [facility] [place] [facility] [address] [facility] [id number] [place] [address]- 3794 05 Oct, 2011 [facility] [address] [id number] [place] [address]- 8417 September, [facility] [place] [facility] [address] [id number], [place] [address] 6587 06 Aug, 2011 [facility] [address] [id number], [place] [address]- 0909 May, [facility] [place] [facility] [address] [facility] [id number], [place] [address]- 0956 20 Apr, 2011 [facility] [place] [facility] [address] [id number] [place] [address]- 2079 19 Apr, 2011 [facility] [place] [facility] [address] [facility] [id number] [place] [address]- 5183 19 Apr, 2011 [facility] [place] [facility] [address] [id number], [place] [address] 3772 13 Apr, 2011 [facility] [place] [facility] [address] [id number] [place] [address]- 0671 14 Mar, 2011 [facility] [place] [facility] [address] [id number] [place] [address]- 8866 14 Mar, 2011 [facility] [place] [facility] [address] [id number] [place] [address]- 4260 14 Mar, 2011 [facility] [place] [facility] [address] [id number] [place] [address]- 8534 01 Mar, 2011 [facility] [place] [facility] [address] [id number] [place] [address]- 2951 17 Feb, 2011 [facility] [place] [facility] [address] [id number] [place] [address]- 8817 17 Feb, 2011 [facility] [place] [facility] [address] [id number] [place] [address]- 9983 10 Feb, 2011 [facility] [place] [facility] [address] [id number] [place] [address]- 0309 10 Feb, 2011 [facility] [place] [facility] [address] [id number] [place] [address]- 4175 September, [facility] [place] [facility] [address] [id number] [place] [address]- 2973 September, [facility] [place] [facility] [address] [id number] [place] [address]- 7945 13 Apr, 2010 [facility] [place] [facility] [address] [id number] [place] [address]- 3672 Apr, [facility] [place] [facility] [address] [id number] [place] [address]- 2543 Mar, [facility] [place] [facility] [address] [id number] [place] [address]- 8686 29 Mar, 2010 [facility] [place] [facility] [address] [id number] [place] [address]- 7517 23 Mar, 2010 [facility] [place] [facility] [address] [id number] [place] [address]- 6262 16 Mar, 2010 [facility] [address] [id number], [place] [address]- 2210 16 Mar, 2010 [facility] [id number], [place] [address]- 4722 Feb, [facility] [address] [id number], [place] [address]- 8733 Feb, [facility] [id number], [place] [address]- 1005 Feb, [facility] [id number], [place] [address]- 4686 Jan, [facility] [id number] [place] [address] 9632 Jun, [facility] [id number], [place] [address]- 8588 Mar, [facility] [id number], [place] [address]- 6581 Oct, [facility] [address] [id number], [place] [address]- 0953 Oct, [facility] [address] [id number], [place] [address]- 4417 September, IMMUNIZATIONS No Known Immunizations SOCIAL HISTORY [...]
--- OUTSIDE RECORDS SUMMARY | 2018-03-24 15:43 | XMS REPORT ---
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 [address] [id number] [place] [address]- 1878 Jul, [facility] [place] [facility] [address] [id number] [place] [address]- 3215 28 Jun, 2012 [facility] [place] [facility] [address] [id number] [place] [address]- 7682 Jun, [facility] [place] [facility] [address] [id number] [place] [address] 9068 Apr, [facility] [place] [facility] [address] [id number] [place] [address]- 0131 Apr, [facility] [place] [facility] [address] [id number] [place] [address]- 9392 Apr, [facility] [place] [facility] [address] [id number] [place] [address]- 5253 Apr, [facility] [place] [facility] [address] [id number], [place] [address]- [address]75 15 Apr, 2012 [facility] [place] [facility] [address] [id number] [place] [address] 2545 15 Apr, 2012 [facility] [place] [facility] [address] [id number] [place] [address] 12 Apr, 2012 [facility] [place] [facility] [address] [id number] [place] [address] 10 Apr, 2012 [facility] [place] [facility] [address] [id number], [place] [address] 3755 10 Apr, 2012 [facility] [address] [id number] [place] [address]- 3361 12 Feb, 2012 [facility] [place] [facility] [address] [facility] [id number], [place] [address]- 4736 12 Feb, 2012 [facility] [address] [id number] [place] [address] 9116 04 Feb, 2012 [facility] [place] [facility] [address] [id number] [place] [address]- 4242 13 Jan, 2012 [facility] [address] [facility] [id number] [place] [address], [place] [address]- [address]359 13 Jan, 2012 [facility] [place] [facility] [address] [facility] [id number] [place] [address]- 2040 15 Oct, 2011 [facility] [id number], [place] [address] 14 Oct, 2011 [facility] [place] [facility] [address] [facility] [id number] [place] [address]- 1218 05 Oct, 2011 [facility] [address] [id number] [place] [address]- 6933 September, [facility] [place] [facility] [address] [id number], [place] [address] 8311 06 Aug, 2011 [facility] [address] [id number], [place] [address] 0172 May, [facility] [place] [facility] [address] [facility] [id number], [place] [address] 9735 20 Apr, 2011 [facility] [place] [facility] [address] [id number] [place] [address]- 8187 19 Apr, 2011 [facility] [place] [facility] [address] [facility] [id number] [place] [address]- 1546 19 Apr, 2011 [facility] [place] [facility] [address] [id number], [place] [address] 7855 13 Apr, 2011 [facility] [place] [facility] [address] [id number] [place] [address]- 6104 14 Mar, 2011 [facility] [place] [facility] [address] [id number] [place] [address]- 3439 14 Mar, 2011 [facility] [place] [facility] [address] [id number] [place] [address]- 2023 14 Mar, 2011 [facility] [place] [facility] [address] [id number] [place] [address]- 5551 01 Mar, 2011 [facility] [place] [facility] [address] [id number] [place] [address]- 4674 17 Feb, 2011 [facility] [place] [facility] [address] [id number] [place] [address]- 4438 17 Feb, 2011 [facility] [place] [facility] [address] [id number] [place] [address]- 8192 10 Feb, 2011 [facility] [place] [facility] [address] [id number] [place] [address]- 3974 10 Feb, 2011 [facility] [place] [facility] [address] [id number] [place] [address]- 0495 September, [facility] [place] [facility] [address] [id number] [place] [address]- 0113 September, [facility] [place] [facility] [address] [id number] [place] [address]- 3890 13 Apr, 2010 [facility] [place] [facility] [address] [id number] [place] [address]- 3559 Apr, [facility] [place] [facility] [address] [id number] [place] [address]- 2543 Mar, [facility] [place] [facility] [address] [id number] [place] [address]- 8269 29 Mar, 2010 [facility] [place] [facility] [address] [id number] [place] [address]- 8289 23 Mar, 2010 [facility] [place] [facility] [address] [id number] [place] [address] 16 Mar, 2010 [facility] [address] [id number], [place] [address] 6757 16 Mar, 2010 [facility] [address], [place] [address]- 2804 Feb, [facility] [address] [id number], [place] [address]- 3808 Feb, [facility] [address], [place] [address]- 0568 Feb, [facility] [address] 5836 Jan, [facility] [id number], [place] [address]- 7459 Jun, [facility] [address] 9412 Mar, [facility] [address], [place] [address]- 2676 Oct, [facility] [address] [id number], [place] [address]- 8670 Oct, [facility] [address] [id number], [place] [address]- 8724 September, IMMUNIZATIONS No Known Immunizations SOCIAL HISTORY [...]
--- OUTSIDE RECORDS SUMMARY | 2018-03-24 15:44 | XMS REPORT ---
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 Jul, [facility] [address] [facility] [id number] [place] [address]990 28 Jun, 2012 [facility] [address] [id number] [place] [address] 4437 Jun, [facility] [address] [facility] [id number] [place] [address] 3651 Apr, [facility] [address] [id number] [place] [address] 7958 Apr, [facility] [address] [id number] [place] [address] 0254 Apr, [facility] [place] [facility] [address] [id number] [place] [address] 3300 Apr, [facility] [place] [facility] [address] [id number] [place] [address]- [address] 15 Apr, 2012 [facility] [place] [facility] [address] [facility] [id number] [place] [address]- 5242 15 Apr, 2012 [facility] [place] [facility] [address] [facility] [id number] [place] [address]- 5139 12 Apr, 2012 [facility] [place] [facility] [address] [id number] [place] [address]- 0398 10 Apr, 2012 [facility] [place] [facility] [address] [id number] [place] [address]- 9497 10 Apr, 2012 [facility] [place] [facility] [address] [id number] [place] [address] 6886 Feb, [facility] [place] [facility] [address] [id number] [place] [address]- 1485 Feb, [facility] [place] [facility] [address] [id number] [place] [address]- 5233 04 Feb, 2012 [facility] [place] [facility] [address] [id number] [place] [address]- 2640 13 Jan, 2012 [facility] [place] [facility] [address] [id number] [place] [address]- 1408 13 Jan, 2012 [facility] [place] [facility] [address] [id number] [place] [address]- 0870 15 Oct, 2011 [facility] [place] [facility] [address] [id number] [place] [address]- 7113 14 Oct, 2011 [facility] [place] [facility] [address] [id number] [place] [address]- 7500 05 Oct, 2011 [facility] [place] [facility] [address] [id number] [place] [address]- 3935 September, [facility] [place] [facility] [address] [id number] [place] [address]- 9316 06 Aug, 2011 [facility] [place] [facility] [address] [id number] [place] [address]- 3294 May, [facility] [place] [facility] [address] [id number] [place] [address]- 7946 Apr, [facility] [place] [facility] [address] [id number] [place] [address]- 3436 Apr, [facility] [place] [facility] [address] [id number] [place] [address] 5415 Apr, [facility] [place] [facility] [address] [id number] [place] [address]- 9675 13 Apr, 2011 [facility] [place] [facility] [address] [id number] [place] [address]- 4241 14 Mar, 2011 [facility] [place] [facility] [address] [id number] [place] [address]- 6264 14 Mar, 2011 [facility] [place] [facility] [address] [id number] [place] [address]- 5918 Mar, [facility] [place] [facility] [address] [id number] [place] [address]- 0483 Mar, [facility] [place] [facility] [address] [id number] [place] [address]- 6172 Feb, [facility] [place] [facility] [address] [id number] [place] [address]- 7958 Feb, [facility] [place] [facility] [address] [id number] [place] [address]- 8738 Feb, [facility] [place] [facility] [address] [id number] [place] [address]- 4454 Feb, [facility] [place] [facility] [address] [id number] [place] [address]- 4543 September, [facility] [place] [facility] [address] [id number], [place] [address]- 2918 September, [facility] [place] [facility] [address] [id number], [place] [address]- 1237 Apr, [facility] [place] [facility] [address] [id number] [place] [address]- 8725 Apr, [facility] [place] [facility] [address] [id number] [place] [address]- 5595 Mar, [facility] [place] [facility] [address] [id number] [place] [address]- 8829 Mar, [facility] [place] [facility] [id number], [place] [address] Mar, [facility] [id number], [place] [address] 6388 Mar, [facility] [id number], [place] [address] Mar, [facility] [id number], [place] [address]- 7888 Feb, [facility] [id number] [place] [address]- 0153 Feb, [facility] [id number] [place] [address]- 3817 Feb, [facility] [id number] [place] [address]- 8184 Jan, [facility] [id number] [place] [address]- 3094 Jun, [facility] [id number] [address] Mar, [facility] [id number] [place] [address]- 1345 Oct, [facility] [id number], [place] [address]- 5226 Oct, [facility] [id number], [place] [address] 4471 September, IMMUNIZATIONS No Known Immunizations SOCIAL HISTORY Never Assessed REASON FOR VISIT Dizziness/muscle spasms Pt c/o muscle spasms, confusion, states when she stands she gets black out vision and rings and some dizziness JORGE Heath PLAN OF CARE Activity Details Follow Up Go to the ER. Patient taken to the ER by Significant Other. Reason: VITAL SIGNS Height 62.1 in 2017-09-30 Weight 210.8 lbs 2017-09-30 Temperature 97.9 degrees Fahrenheit 2017-09-30 Heart Rate 88 bpm 2017-09-30 Respiratory Rate 20 2017-09-30 BMI 38.43 kg/m2 2017-09-30 Blood pressure systolic 124 mmHg 2017-09-30 Blood pressure diastolic 84 mmHg 2017-09-30 MEDICATIONS Medication Instructions Dosage Frequency Start Date End Date Duration Status Fluticasone Propionate 50 MCG/ACT Nasally Once a day 1 spray in each nostril 24h 15 Sep, 2016 30 day(s) Not-Taking Folic Acid 1 MG Orally Once a day 1 tablet 24h 30 Active Tramadol HCl 50 MG Orally 3 times a day 1 tablet 8h Active Lisinopril 40 mg Orally Once a day 1 tablet 24h 30 Active Propranolol HCl 20 mg Orally twice a day 1 tablet 12h 30 Active Meclizine HCl 25 MG Orally 4 times a day 1 tablet as needed 6h 14 Mar, 2016 Not-Taking Flonase 50 MCG/ACT Nasally Once a day 1 spray in each nostril 24h Not-Taking Trazodone HCl 100 mg Orally Once a day 1 tablet at bedtime as needed 24h 30 Active Norvasc 10 mg Orally Once a day 1 tablet 24h 30 Active Zocor 40 mg Orally Once a day 1 tablet in the evening 24h 30 Active Effexor XR 150 MG Orally Once a day 1 capsule with food 24h 30 Active Albuterol Sulfate (2.5 MG/3ML) 0.083% Inhalation Three times a day prn 3 ml 07 days Not-Taking Symbicort 160-4.5 MCG/ACT Inhalation Twice a day 1 puff 12h 30 days Active Omeprazole 40 mg Orally 2 times a day 1 capsule 12h 30 Active Spiriva HandiHaler 18 MCG Inhalation Once a day 1 capsule 24h Not- Taking TobraDex 0.3-0.1 % Ophthalmic every 6 hrs 1 drop into affected eye 6h Jul, 5 days Active Stelara 45 MG/0.5ML Subcutaneous q12 weeks Not-Taking Proventil HFA 108 (90 Base) MCG/ACT Inhalation every 6 hrs 2 puffs as needed 6h 30 days Not-Taking RESULTS Name Result Date Reference Range GLUCOSE FINGERSTICK (IN HOUSE) 2017-09-30 GLU FINGERSTICK 112 PC Lot # [id number] Exp date 2019-01-01 PROCEDURES Procedure Date Ordered Result Body Site GLUCOSE BLOOD TEST September 30, 2017 INSTRUCTIONS MEDICATIONS ADMINISTERED No Known Medications [...] for kidney/electrolyte issues 11/2017 Hospitalization History [facility] Kidney issues 11/2017
--- OUTSIDE RECORDS SUMMARY | 2018-03-24 15:44 | XMS REPORT ---
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 [facility] [address] [id number] [place] [address]- [address] Apr, [facility] [place] [facility] [address] [id number] [place] [address]- [address] Apr, [facility] [place] [facility] [address] [id number] [place] [address]- 8613 15 Apr, 2012 [facility] [place] [facility] [address] [id number] [place] [address]- [address]45 15 Apr, 2012 [facility] [place] [facility] [address] [id number] [place] [address]- 1458 12 Apr, 2012 [facility] [place] [facility] [address] [id number] [place] [address]- 8442 10 Apr, 2012 [facility] [place] [facility] [address] [id number] [place] [address]- 9314 10 Apr, 2012 [facility] [place] [facility] [address] [id number] [place] [address]- 7892 12 Feb, 2012 [facility] [place] [facility] [address] [id number] [place] [address]- 3678 12 Feb, 2012 [facility] [place] [facility] [address] [id number] [place] [address]- 4273 04 Feb, 2012 [facility] [place] [facility] [address] [id number] [place] [address]- 3590 13 Jan, 2012 [facility] [place] [facility] [address] [id number] [place] [address]- 5557 13 Jan, 2012 [facility] [place] [facility] [address] [id number] [place] [address]- 6419 15 Oct, 2011 [facility] [place] [facility] [address] [id number] [place] [address]- 1646 14 Oct, 2011 [facility] [place] [facility] [address] [facility] [id number] [place] [address]- 1438 05 Oct, 2011 [facility] [place] [facility] [address] [id number] [place] [address]- 3264 September, [facility] [place] [facility] [address] [id number] [place] [address]- [address] 06 Aug, 2011 [facility] [place] [facility] [address] [facility] [id number] [place] [address]- [address]37 May, [facility] [place] [facility] [address] [id number] [place] [address]- [address] 20 Apr, 2011 [facility] [place] [facility] [address] [id number] [place] [address]- 3183 19 Apr, 2011 [facility] [place] [facility] [address] [id number] [place] [address]- 9930 19 Apr, 2011 [facility] [place] [facility] [address] [id number] [place] [address]- 9318 13 Apr, 2011 [facility] [place] [facility] [address] [id number] [place] [address] 14 Mar, 2011 [facility] [place] [facility] [address] [id number] [place] [address]- 4619 14 Mar, 2011 [facility] [place] [facility] [address] [id number] [place] [address]- 3650 14 Mar, 2011 [facility] [place] [facility] [address] [id number] [place] [address]- 5448 Mar, [facility] [place] [facility] [address] [id number] [place] [address]- 9719 17 Feb, 2011 [facility] [place] [facility] [address] [id number] [place] [address]- 0415 17 Feb, 2011 [facility] [place] [facility] [address] [id number] [place] [address]- 4606 10 Feb, 2011 [facility] [place] [facility] [address] [id number] [place] [address]- 6403 Feb, [facility] [place] [facility] [address] [id number] [place] [address]- 8856 September, [facility] [place] [facility] [address] [id number] [place] [address]- 0942 September, [facility] [place] [facility] [address] [id number] [place] [address]- 3891 Apr, [facility] [place] [facility] [address] [id number] [place] [address]- 5811 Apr, [facility] [place] [facility] [address] [id number] [place] [address]- 3686 Mar, [facility] [place] [facility] [address] [id number] [place] [address]- 6706 29 Mar, 2010 [facility] [place] [facility] [address] [id number] [place] [address]- 5288 23 Mar, 2010 [facility] [place] [facility] [address] [id number] [place] [address]- 7717 16 Mar, 2010 [facility] [place] [facility] [address] [id number], [place] [address]- [address]46 16 Mar, 2010 [facility] [address] [id number] [address] Feb, [facility] [address] [id number], [place] [address] Feb, [facility] [id number], [place] [address] Feb, [facility] [id number], [place] [address] Jan, [facility] [id number], [place] [address] Jun, [facility] [id number] [place] [address] Mar, [facility] [id number], [place] [address] Oct, [facility] [id number], [place] [address] Oct, [facility] [address] [id number] [address] [address] September, IMMUNIZATIONS No Known Immunizations SOCIAL HISTORY Never Assessed REASON FOR VISIT Referral PLAN OF CARE VITAL SIGNS MEDICATIONS No [...]
--- OUTSIDE RECORDS SUMMARY | 2018-03-24 15:45 | XMS REPORT ---
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 [facility] [address] [id number] [place] [address]- 3567 Jul, [facility] [place] [facility] [address] [id number] [place] [address] 11 Jul, 2012 [facility] [place] [facility] [address] [id number] [place] [address]- 3919 04 Jul, 2012 [facility] [place] [facility] [address] [id number] [place] [address]- 1426 Jul, [facility] [place] [facility] [address] [id number] [place] [address]- 4236 Jun, [facility] [place] [facility] [address] [id number] [place] [address]- 6584 Jun, [facility] [place] [facility] [address] [id number] [place] [address]- 6320 Apr, [facility] [place] [facility] [address] [id number] [place] [address]- 9425 Apr, [facility] [place] [facility] [address] [id number] [place] [address]- 8146 Apr, [facility] [place] [facility] [address] [id number] [place] [address]- 9028 Apr, [facility] [place] [facility] [address] [id number] [place] [address]- 4119 15 Apr, 2012 [facility] [place] [facility] [address] [id number] [place] [address]- 2543 15 Apr, 2012 [facility] [place] [facility] [address] [id number] [place] [address]- 2474 12 Apr, 2012 [facility] [place] [facility] [address] [id number] [place] [address]- 9500 10 Apr, 2012 [facility] [place] [facility] [address] [id number] [place] [address]- 5962 10 Apr, 2012 [facility] [place] [facility] [address] [id number] [place] [address]- 6922 12 Feb, 2012 [facility] [place] [facility] [address] [id number] [place] [address]- 0911 12 Feb, 2012 [facility] [place] [facility] [address] [id number] [place] [address]- 1757 04 Feb, 2012 [facility] [place] [facility] [address] [id number] [place] [address]- 5122 13 Jan, 2012 [facility] [place] [facility] [address] [id number] [place] [address]- 7203 13 Jan, 2012 [facility] [place] [facility] [address] [id number] [place] [address]- 9122 15 Oct, 2011 [facility] [place] [facility] [address] [id number] [place] [address]- 3139 14 Oct, 2011 [facility] [place] [facility] [address] [facility] [id number] [place] [address]- [address] 05 Oct, 2011 [facility] [place] [facility] [address] [id number] [place] [address]- 7930 September, [facility] [place] [facility] [address] [id number] [place] [address]- 1997 06 Aug, 2011 [facility] [place] [facility] [address] [facility] [id number] [place] [address]- 4303 May, [facility] [place] [facility] [address] [id number] [place] [address]- 2620 20 Apr, 2011 [facility] [place] [facility] [address] [id number] [place] [address]- 7198 19 Apr, 2011 [facility] [place] [facility] [address] [id number] [place] [address]- 4921 19 Apr, 2011 [facility] [place] [facility] [address] [id number] [place] [address]- 2205 13 Apr, 2011 [facility] [place] [facility] [address] [id number] [place] [address] 14 Mar, 2011 [facility] [place] [facility] [address] [id number] [place] [address]- 9596 14 Mar, 2011 [facility] [place] [facility] [address] [id number] [place] [address]- 4720 14 Mar, 2011 [facility] [place] [facility] [address] [id number] [place] [address]- 9508 Mar, [facility] [place] [facility] [address] [id number] [place] [address]- 3636 17 Feb, 2011 [facility] [place] [facility] [address] [id number] [place] [address]- 1255 17 Feb, 2011 [facility] [place] [facility] [address] [id number] [place] [address]- 8019 10 Feb, 2011 [facility] [place] [facility] [address] [id number] [place] [address]- 1315 Feb, [facility] [place] [facility] [address] [id number] [place] [address]- 7310 September, [facility] [place] [facility] [address] [id number] [place] [address]- 6137 September, [facility] [place] [facility] [address] [id number] [place] [address]- 3445 Apr, [facility] [place] [facility] [address] [id number] [place] [address]- 5679 Apr, [facility] [place] [facility] [address] [id number] [place] [address]- 9727 Mar, [facility] [place] [facility] [address] [id number] [place] [address]- 1543 29 Mar, 2010 [facility] [place] [facility] [address] [id number] [place] [address]- 1441 23 Mar, 2010 [facility] [place] [facility] [address] [id number] [place] [address]- 5124 16 Mar, 2010 [facility] [place] [facility] [id number] [place] [address]- 2553 16 Mar, 2010 [facility] [id number] [address] 56[address] Feb, [facility] [id number] [address] Feb, [facility] [id number], [place] [address]- 4668 Feb, [facility] [id number] [place] [address]- 9214 Jan, [facility] [id number] [place] [address] 979186- 2378 Jun, [facility] [id number] [place] [address]89332- 0530 Mar, [facility] [id number] [place] [address]- 1881 Oct, [facility] [id number], [place] [address]- 7224 Oct, [facility] [id number] [place] [address]- 0237 September, IMMUNIZATIONS No Known Immunizations SOCIAL HISTORY Never Assessed REASON FOR VISIT med refill PLAN OF CARE VITAL SIGNS MEDICATIONS Medication Instructions Dosage Frequency Start Date End Date Duration Status Proventil HFA 108 (90 Base) MCG/ACT Inhalation every 6 hrs 2 puffs as needed 6h 30 days Active Symbicort 160-4.5 MCG/ACT Inhalation Twice a day 1 puff 12h 30 days Active RESULTS No Results PROCEDURES [...] issues 11/2017 Hospitalization History [facility] Kidney issues 11/2017
--- OUTSIDE RECORDS SUMMARY | 2018-03-24 15:46 | XMS REPORT ---
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 6[address] Apr, [facility] [address] [facility] [id number] [place] [address] 2547 Apr, [facility] [address] [id number] [place] [address] 2546 Apr, [facility] [address] [id number] [place] [address] 2546 15 Apr, 2012 [facility] [place] [facility] [address] [id number] [place] [address] 2546 15 Apr, 2012 [facility] [place] [facility] [address] [id number] [place] [address]46 12 Apr, 2012 [facility] [address] [id number] [place] [address]- 4433 10 Apr, 2012 [facility] [address] [id number] [place] [address]- 0622 10 Apr, 2012 [facility] [place] [facility] [address] [id number] [place] [address]- 5696 Feb, [facility] [place] [facility] [address] [id number] [place] [address] 5466 Feb, [facility] [place] [facility] [address] [id number] [place] [address]- 8996 04 Feb, 2012 [facility] [place] [facility] [address] [id number] [place] [address] 1988 13 Jan, 2012 [facility] [place] [facility] [address] [id number] [place] [address]- 8196 13 Jan, 2012 [facility] [place] [facility] [address] [id number] [place] [address]- 1368 15 Oct, 2011 [facility] [place] [facility] [address] [id number] [place] [address]- 9502 14 Oct, 2011 [facility] [place] [facility] [address] [id number] [place] [address]- 6452 05 Oct, 2011 [facility] [place] [facility] [address] [facility] [id number], [place] [address] September, [facility] [place] [facility] [address] [facility] [id number] [place] [address]- 9316 Aug, [facility] [place] [facility] [address] [id number], [place] [address] May, [facility] [place] [facility] [address] [id number] [place] [address]- 0661 Apr, [facility] [place] [facility] [address] [id number] [place] [address]- 9026 Apr, [facility] [place] [facility] [address] [facility] [id number], [place] [address]- [address] Apr, [facility] [place] [facility] [address] [id number], [place] [address]- 5243 13 Apr, 2011 [facility] [place] [facility] [address] [id number] [place] [address]- 8969 14 Mar, 2011 [facility] [place] [facility] [address] [id number] [place] [address]- 5773 14 Mar, 2011 [facility] [place] [facility] [address] [id number] [place] [address]- 8394 14 Mar, 2011 [facility] [place] [facility] [address] [id number] [place] [address]- 7848 Mar, [facility] [place] [facility] [address] [id number] [place] [address]- 3462 17 Feb, 2011 [facility] [place] [facility] [address] [id number] [place] [address]- 3863 17 Feb, 2011 [facility] [place] [facility] [address] [id number] [place] [address]- 5640 Feb, [facility] [place] [facility] [address] [id number] [place] [address]- 2401 10 Feb, 2011 [facility] [place] [facility] [address] [facility] [id number] [place] [address]- 2886 September, [facility] [place] [facility] [address] [facility] [id number] [place] [address]- 2842 September, [facility] [place] [facility] [address] [id number] [place] [address]- 5777 13 Apr, 2010 [facility] [place] [facility] [address] [id number] [place] [address]- 7030 Apr, [facility] [place] [facility] [address] [id number] [place] [address]- 9238 Mar, [facility] [place] [facility] [address] [id number] [place] [address]- 9670 29 Mar, 2010 [facility] [place] [facility] [address] [facility] [id number] [place] [address]- 8868 23 Mar, 2010 [facility] [place] [facility] [id number], [place] [address]186 16 Mar, 2010 [facility] [id number], [place] [address]- 9268 16 Mar, 2010 [facility] [id number], [place] [address] Feb, [facility] [id number] [address] Feb, [facility] [id number], [place] [address] 5[address] Feb, [facility] [id number] [place] [address]- 87[address] Jan, [facility] [id number], [place] [address]- 1483 Jun, [facility] [id number] [place] [address]- 2197 Mar, [facility] [id number], [place] [address]- 77[address] Oct, [facility] [id number], [place] [address]- 7[address] Oct, [facility] [id number], [place] [address]- [address] September, IMMUNIZATIONS No Known Immunizations SOCIAL HISTORY Never Assessed REASON FOR VISIT complaining of SOB et reports she gets mycoplasma frequently. brother last week...thinks she is worn down et getting sick. kbullardryung PLAN OF CARE Activity Details Follow Up prn Reason: VITAL SIGNS Height 62.1 in 2017-08-17 Weight 221.0 lbs 2017-08-17 Temperature 97.2 degrees Fahrenheit 2017-08-17 Heart Rate 82 bpm 2017-08-17 Respiratory Rate 20 2017-08-17 Oximetry on room air:95 % 2017-08-17 BMI 40.29 kg/m2 2017-08-17 Blood pressure systolic 130 mmHg 2017-08-17 Blood pressure diastolic 84 mmHg 2017-08-17 MEDICATIONS Medication Instructions Dosage Frequency Start Date End Date Duration Status Symbicort 160-4.5 MCG/ACT Inhalation Twice a day 1 puff 12h Active Zocor 40 mg Orally Once a day 1 tablet in the evening 24h 30 Active Fluticasone Propionate 50 MCG/ACT Nasally Once a day 1 spray in each nostril 24h September, 30 day(s) Active Spiriva HandiHaler 18 MCG Inhalation Once a day 1 capsule 24h Active Propranolol HCl 20 mg Orally twice a day 1 tablet 12h 30 Active Effexor XR 150 MG Orally Once a day 1 capsule with food 24h 30 Active TobraDex 0.3-0.1 % Ophthalmic every 6 hrs 1 drop into affected eye 6h Jul, 5 days Active Norvasc 10 mg Orally Once a day 1 tablet 24h 30 Active Lisinopril 40 mg Orally Once a day 1 tablet 24h 30 Active Omeprazole 40 mg Orally 2 times a day 1 capsule 12h 30 Active Albuterol Sulfate (2.5 MG/3ML) 0.083% Inhalation Three times a day prn 3 ml 07 days Active Flonase 50 MCG/ACT Nasally Once a day 1 spray in each nostril 24h Active Meclizine HCl 25 MG Orally 4 times a day 1 tablet as needed 6h Mar, Active Tramadol HCl 50 MG Orally 3 times a day 1 tablet 8h Active Folic Acid 1 MG Orally Once a day 1 tablet 24h 30 Active Stelara 45 MG/0.5ML Subcutaneous q12 weeks Active Trazodone HCl 100 mg Orally Once a day 1 tablet at bedtime as needed 24h 30 Active RESULTS No Results PROCEDURES No [...] for kidney/electrolyte issues 11/2017 Hospitalization History [facility] Kidney issues 11/2017
--- OUTSIDE RECORDS SUMMARY | 2018-03-24 15:47 | XMS REPORT ---
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 [place] [address]- 1216 Apr, [facility] [place] [facility] [address] [id number] [place] [address]- 8215 Apr, [facility] [place] [facility] [address] [id number] [place] [address]- 8964 Apr, [facility] [place] [facility] [address] [id number] [place] [address]- 4[address] Apr, [facility] [place] [facility] [address] [id number] [place] [address]- 8315 Apr, [facility] [place] [facility] [address] [id number], [place] [address] Feb, [facility] [place] [facility] [address] [id number] [place] [address]- 6036 Feb, [facility] [place] [facility] [address] [id number] [place] [address]- 1306 04 Feb, 2012 [facility] [place] [facility] [address] [id number] [place] [address]- 7316 13 Jan, 2012 [facility] [place] [facility] [address] [id number] [place] [address]- 0022 13 Jan, 2012 [facility] [place] [facility] [address] [id number] [place] [address]- 8947 15 Oct, 2011 [facility] [place] [facility] [address] [id number] [place] [address] 14 Oct, 2011 [facility] [place] [facility] [address] [id number] [place] [address]- 1243 05 Oct, 2011 [facility] [place] [facility] [address] [id number] [place] [address]- 5038 September, [facility] [place] [facility] [address] [id number] [place] [address]- 8399 06 Aug, 2011 [facility] [place] [facility] [address] [id number] [place] [address]- 1174 May, [facility] [address] [id number] [place] [address]- 0217 20 Apr, 2011 [facility] [place] [facility] [address] [id number] [place] [address]- 9450 19 Apr, 2011 [facility] [place] [facility] [address] [id number] [place] [address]- 8181 19 Apr, 2011 [facility] [place] [facility] [address] [facility] [id number] [place] [address]- 2941 13 Apr, 2011 [facility] [place] [facility] [address] [id number] [place] [address]- 0993 14 Mar, 2011 [facility] [place] [facility] [address] [id number] [place] [address]- 4148 14 Mar, 2011 [facility] [place] [facility] [address] [id number] [place] [address] 14 Mar, 2011 [facility] [place] [facility] [address] [id number] [place] [address]- 7159 Mar, [facility] [place] [facility] [address] [id number] [place] [address]- 9255 17 Feb, 2011 [facility] [place] [facility] [address] [id number] [place] [address]- 1336 17 Feb, 2011 [facility] [place] [facility] [address] [id number] [place] [address]- 3255 10 Feb, 2011 [facility] [place] [facility] [address] [id number] [place] [address]- 2468 10 Feb, 2011 [facility] [place] [facility] [address] [id number] [place] [address]- 9528 September, [facility] [address] [id number] [place] [address]- 1899 September, [facility] [place] [facility] [address] [id number] [place] [address]- 6292 Apr, [facility] [place] [facility] [address] [id number] [place] [address]- 0297 Apr, [facility] [place] [facility] [address] [id number] [place] [address]- 7218 Mar, [facility] [place] [facility] [address] [id number] [place] [address]- 8664 29 Mar, 2010 [facility] [place] [facility] [address] [id number] [place] [address]- 0022 Mar, [facility] [place] [facility] [address] [id number] [place] [address]- 1106 16 Mar, 2010 [facility] [place] [facility] [address] [id number] [place] [address]- 8641 16 Mar, 2010 [facility] [place] [facility] [address] [id number] [place] [address]- 8890 27 Feb, 2010 [facility] [place] [facility] [address] [id number] [place] [address]- 6223 Feb, [facility] [place] [facility] [address] [id number] [place] [address]- 3959 13 Feb, 2010 [facility] [place] [facility] [address] [id number][place] [address]- [address] Jan, [facility] [address] [facility] [id number][place] [address] 2546 Jun, [facility] [address] [facility] [id number], [place] [address]- 2546 Mar, [place] [address] [facility] [id number], [place] [address] 2546 Oct, [place] [address] [facility] [id number], [place] [address] 2546 Oct, [place] [address] [facility] [id number][place] [address]- [address] September, IMMUNIZATIONS No Known Immunizations SOCIAL HISTORY Never Assessed REASON FOR VISIT right eye is red, painful, light sensitive. been like this for 3 days. all this started out as a headache. [email or web address] PLAN OF CARE Activity Details Follow Up see eye doctor tomorrow if not significantly improved! Reason: VITAL SIGNS Height 62.1 in 2017-07-20 Weight 224.6 lbs 2017-07-20 Temperature 98.5 degrees Fahrenheit 2017-07-20 Heart Rate 76 bpm 2017-07-20 Respiratory Rate 20 2017-07-20 BMI 40.94 kg/m2 2017-07-20 Blood pressure systolic 122 mmHg 2017-07-20 Blood pressure diastolic 72 mmHg 2017-07-20 MEDICATIONS Medication Instructions Dosage Frequency Start Date End Date Duration Status Trazodone HCl 100 mg Orally Once a day 1 tablet at bedtime as needed 24h 30 Active Spiriva HandiHaler 18 MCG Inhalation Once a day 1 capsule 24h Active Albuterol Sulfate (2.5 MG/3ML) 0.083% Inhalation Three times a day prn 3 ml 07 days Active TobraDex 0.3-0.1 % Ophthalmic every 6 hrs 1 drop into affected eye 6h Jul, 5 days Active Fluticasone Propionate 50 MCG/ACT Nasally Once a day 1 spray in each nostril 24h September, 30 day(s) Active Omeprazole 40 mg Orally 2 times a day 1 capsule 12h 30 Active Norvasc 10 mg Orally Once a day 1 tablet 24h 30 Active Meclizine HCl 25 MG Orally 4 times a day 1 tablet as needed 6h 14 Mar, 2016 Active Tramadol HCl 50 MG Orally 3 times a day 1 tablet 8h Active Symbicort 160-4.5 MCG/ACT Inhalation Twice a day 1 puff 12h Active Folic Acid 1 MG Orally Once a day 1 tablet 24h 30 Active Lisinopril 40 mg Orally Once a day 1 tablet 24h 30 Active Stelara 45 MG/0.5ML Subcutaneous q12 weeks Active Flonase 50 MCG/ACT Nasally Once a day 1 spray in each nostril 24h Active Zocor 40 mg Orally Once a day 1 tablet in the evening 24h 30 Active Effexor XR 150 MG Orally Once a day 1 capsule with food 24h 30 Active Propranolol HCl 20 mg Orally twice a day 1 tablet 12h 30 Active RESULTS No Results PROCEDURES No [...]
--- OUTSIDE RECORDS SUMMARY | 2018-03-24 15:49 | XMS REPORT ---
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 [id number] [place] [address]- 6962 Apr, [facility] [place] [facility] [address] [id number] [place] [address]- 3382 Apr, [facility] [place] [facility] [address] [id number] [place] [address]- 3755 Apr, [facility] [place] [facility] [address] [id number] [place] [address]- 2970 Apr, [facility] [address] [id number] [place] [address]- 1694 Feb, [facility] [place] [facility] [address] [id number] [place] [address]- 1025 Feb, [facility] [place] [facility] [address] [id number] [place] [address]- 9397 Feb, [facility] [place] [facility] [address] [id number] [place] [address]- 7171 13 Jan, 2012 [facility] [place] [facility] [address] [id number] [place] [address]- 7201 Jan, [facility] [place] [facility] [address] [id number], [place] [address]- [address] 15 Oct, 2011 [facility] [place] [facility] [address] [id number] [place] [address]- 3036 Oct, [facility] [place] [facility] [address] [id number] [place] [address]- 0266 05 Oct, 2011 [facility] [place] [facility] [address] [id number] [place] [address]- 6572 September, [facility] [place] [facility] [address] [id number], [place] [address]- 14[address] Aug, [facility] [place] [facility] [address] [id number] [place] [address]- 8576 May, [facility] [place] [facility] [address] [id number] [place] [address]- 0668 Apr, [facility] [place] [facility] [address] [id number] [place] [address]- 2427 Apr, [facility] [place] [facility] [address] [id number] [place] [address] Apr, [facility] [place] [facility] [address] [id number] [place] [address]- 0730 Apr, [facility] [place] [facility] [address] [id number] [place] [address]- 5128 Mar, [facility] [place] [facility] [address] [id number] [place] [address]- 6044 Mar, [facility] [place] [facility] [address] [id number] [place] [address]- 9541 Mar, [facility] [place] [facility] [address] [id number] [place] [address]- 3262 Mar, [facility] [place] [facility] [address] [id number] [place] [address]- 5975 Feb, [facility] [place] [facility] [address] [id number], [place] [address]- 2029 Feb, [facility] [place] [facility] [address] [id number], [place] [address]- 8842 Feb, [facility] [place] [facility] [address] [id number] [place] [address]- 9898 Feb, [facility] [place] [facility] [address] [id number] [place] [address] September, [facility] [place] [facility] [address] [id number] [place] [address]- 8119 September, [facility] [place] [facility] [address] [id number] [place] [address]- 2700 13 Apr, 2010 [facility] [address] [id number] [place] [address]- 3517 13 Apr, 2010 [facility] [place] [facility] [address] [id number] [place] [address]- 0505 Mar, [facility] [address] [id number] [place] [address]- 7619 29 Mar, 2010 [facility] [address] [id number] [place] [address]- 6115 23 Mar, 2010 [facility] [address] [id number] [place] [address]- 8746 16 Mar, 2010 [facility] [address] [id number] [place] [address]- 7691 16 Mar, 2010 [facility] [address] [id number] [place] [address]- 9697 Feb, [facility] [address] [id number] [place] [address]- 2374 Feb, [facility] [address] [id number] [place] [address]- 0013 Feb, [facility] [address] [id number] [place] [address]- 5843 Jan, [facility] [address] [id number] [place] [address]- 1521 15 Jun, 2009 [facility] [address] [id number], [place] [address]- 0015 Mar, [facility] [place] [facility] [address] [id number] [place] [address]- 9967 Oct, [facility] [place] [facility] [address] [id number] [place] [address] 2546 Oct, [facility] [place] [facility] [address] [id number] [place] [address]- 0581 September, IMMUNIZATIONS No Known Immunizations SOCIAL HISTORY Never Assessed REASON FOR VISIT requesting a returned call PLAN OF CARE VITAL SIGNS MEDICATIONS [...]
--- OUTSIDE RECORDS SUMMARY | 2018-03-24 15:51 | XMS REPORT ---
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 [id number] [place] [address]- 8434 17 Feb, 2011 [facility] [address] [id number] [place] [address]- 6[address] 10 Feb, 2011 [facility] [address] [id number] [place] [address] 6943 10 Feb, 2011 [facility] [address] [id number] [place] [address]- 2036 September, [facility] [address] [id number] [place] [address] 4030 September, [facility] [address] [id number] [place] [address]- 0082 Apr, [facility] [address] [id number] [place] [address]- 4668 Apr, [facility] [address] [id number] [place] [address]- 57[address] 29 Mar, 2010 [facility] [address] [id number] [place] [address]- 0159 29 Mar, 2010 [facility] [address] [id number] [place] [address]- 8868 23 Mar, 2010 [facility] [address] [id number] [place] [address]- 9262 16 Mar, 2010 [facility] [address] [id number], [place] [address] 34[address] 16 Mar, 2010 [facility] [address] [id number] [place] [address] 27 Feb, 2010 [facility] [address] [id number] [place] [address]- 7912 26 Feb, 2010 [facility] [address] [id number], [place] [address] 4320 13 Feb, 2010 [facility] [address] [id number], [place] [address]396 13 Jan, 2010 [facility] [address] [facility] [id number], [place] [address]- [address] 15 Jun, 2009 [facility] [address] [id number], [place] [address] Mar, [facility] [address] [facility] [id number], [place] [address] Oct, [facility] [address] [id number], [place] [address] 17 Oct, 2008 [facility] [address] [facility] [id number], [place] [address] September, IMMUNIZATIONS No Known Immunizations SOCIAL HISTORY Never Assessed REASON FOR VISIT TB skin test-Latia PATEL PLAN OF CARE Activity Details Follow Up 48-72 hours Reason:TB read VITAL SIGNS MEDICATIONS Unknown Medications RESULTS No Results PROCEDURES Procedure Date Ordered Result Body Site TB INTRADERMAL 2017-03-31 N/A TB INTRADERMAL TEST Mar 31, 2017 INSTRUCTIONS MEDICATIONS ADMINISTERED No Known Medications [...]
[2018-03-24 15:56] LABS: BASOPHILS % (AUTO) 0 % (0-10); EOSINOPHILS # (AUTO) 0.3 10^3/uL (0.0-0.3); EOSINOPHILS % (AUTO) 3 % (0-10); HEMATOCRIT 38 % (35-52); HEMOGLOBIN 11.9 G/DL (11.5-16.0); LYMPHOCYTES # (AUTO) 2.6 X 10^3 (1.0-4.0); LYMPHOCYTES % (AUTO) 34 % (12-44); MEAN CORPUSCULAR HEMOGLOBIN 29 PG (25-34); MEAN CORPUSCULAR HGB CONC 31 G/DL (32-36); MEAN CORPUSCULAR VOLUME 92 FL (80-99); MEAN PLATELET VOLUME 9.5 FL (7.4-10.4); MONOCYTES # (AUTO) 0.6 X 10^3 (0.0-1.0); MONOCYTES % (AUTO) 8 % (0-12); NEUTROPHILS # (AUTO) 4.1 X 10^3 (1.8-7.8); NEUTROPHILS % (AUTO) 54 % (42-75); PLATELET COUNT 297 10^3/uL (130-400); RED BLOOD COUNT 4.13 10^6/uL (4.35-5.85); RED CELL DISTRIBUTION WIDTH 12.7 % (10.0-14.5); WHITE BLOOD COUNT 7.6 10^3/uL (4.3-11.0)
--- OUTSIDE RECORDS SUMMARY | 2018-03-24 16:07 | XMS REPORT | Continuity of Care Document ---
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 Problems Date Dx Coded Attending Type Code Diagnosis Diagnosed By 11/10/2007 JEWELS ROMNAO DO 723.1 PAIN NECK 11/10/2007 JEWELS ROMANO DO 724.2 PAIN LOW BACK 11/10/2007 723.1 PAIN NECK 11/10/2007 724.2 PAIN LOW BACK 11/10/2007 723.1 PAIN NECK 11/10/2007 724.2 PAIN LOW BACK 11/10/2007 TON LERMA APRN 723.1 Pain Neck 11/10/2007 TON LERMA APRN 724.2 PAIN LOW BACK 11/10/2007 MARJORIE STRONG APRN 723.1 Pain Neck 11/10/2007 MARJORIE STRONG APRN 724.2 PAIN LOW BACK 11/10/2007 723.1 Pain Neck 11/10/2007 724.2 PAIN LOW BACK 11/10/2007 723.1 Pain Neck 11/10/2007 724.2 PAIN LOW BACK 11/10/2007 723.1 Pain Neck 11/10/2007 724.2 PAIN LOW BACK 11/10/2007 TON LERMA APRN 723.1 Pain Neck 11/10/2007 MARIA GUADALUPE DIRECT SERVICE WORKER, TON S 724.2 PAIN LOW BACK 11/10/2007 MARIA GUADALUPE DIRECT SERVICE WORKER, TON S 723.1 Pain Neck 11/10/2007 MARIA GUADALUPE DIRECT SERVICE WORKER, TON S 724.2 PAIN LOW BACK 11/10/2007 BIANCA SHAH, ISAIAS 723.1 Pain Neck 11/10/2007 ISAIAS VALENZUELA MD 724.2 PAIN LOW BACK 11/10/2007 MARIA GUADALUPE DIRECT SERVICE WORKER, TON S 723.1 Pain Neck 11/10/2007 MARIA GUADALUPE DIRECT SERVICE WORKER, TON S 724.2 PAIN LOW BACK 11/10/2007 MARIA GUADALUPE DIRECT SERVICE WORKER, TON S 723.1 Pain Neck 11/10/2007 MARIA GUADALUPE DIRECT SERVICE WORKER, TON S 724.2 PAIN LOW BACK 11/10/2007 MARIA GUADALUPE DIRECT SERVICE WORKER, TON S 723.1 Pain Neck 11/10/2007 MARIA GUADALUPE DIRECT SERVICE WORKER, TON S 724.2 PAIN LOW BACK 11/10/2007 MARIA GUADALUPE DIRECT SERVICE WORKER, TON S 723.1 Pain Neck 11/10/2007 MARIA GUADALUPE DIRECT SERVICE WORKER, TON S 724.2 PAIN LOW BACK 11/10/2007 MARIA GUADALUPE DIRECT SERVICE WORKER, TON S 723.1 Pain Neck 11/10/2007 MARIA GUADALUPE DIRECT SERVICE WORKER, TON S 724.2 PAIN LOW BACK 11/10/2007 DIAZ VAUGHN, CATHERINE T 723.1 Pain Neck 11/10/2007 DIAZ DIRECT SERVICE WORKER, CATHERINE T 724.2 PAIN LOW BACK 11/10/2007 MARIA GUADALUPE DIRECT SERVICE WORKER, TON S 723.1 Pain Neck 11/10/2007 MARIA GUADALUPE DIRECT SERVICE WORKER, TON S 724.2 PAIN LOW BACK 11/10/2007 MARIA GUADALUPE DIRECT SERVICE WORKER, TON S 723.1 Pain Neck 11/10/2007 MARIA GUADALUPE DIRECT SERVICE WORKER, TON S 724.2 PAIN LOW BACK 11/10/2007 MARIA GUADALUPE DIRECT SERVICE WORKER, TON S 723.1 Pain Neck 11/10/2007 MARIA GUADALUPE DIRECT SERVICE WORKER, TON S 724.2 PAIN LOW BACK 11/10/2007 MARIA GUADALUPE DIRECT SERVICE WORKER, TON S 723.1 Pain Neck 11/10/2007 TON LERMA APRN S 724.2 PAIN LOW BACK 11/10/2007 VELASQUEZ KAUR PSYD ANN L 723.1 Pain Neck 11/10/2007 NATASHA PERALES, GERONIMO L 724.2 PAIN LOW BACK 11/10/2007 ROMANO DO, JEWELS K 723.1 Pain Neck 11/10/2007 ROMANO DO, JEWELS K 724.2 PAIN LOW BACK 11/10/2007 VELASQUEZ KAUR PSYD ANN L 723.1 Pain Neck 11/10/2007 NATASHA PERALES, GERONIMO L 724.2 PAIN LOW BACK 11/10/2007 POST DIRECT SERVICE WORKERSYMONE Ramos 723.1 Pain Neck 11/10/2007 POST SYMONE VAUGHN D 724.2 PAIN LOW BACK 11/10/2007 RICHARD DIRECT SERVICE WORKER, JEWELS 723.1 Pain Neck 11/10/2007 RICHARD DIRECT SERVICE WORKER, JEWELS 724.2 PAIN LOW BACK 11/10/2007 RICHARD DIRECT SERVICE WORKER, JEWELS 723.1 Pain Neck 11/10/2007 RICHARD DIRECT SERVICE WORKER, JEWELS 724.2 PAIN LOW BACK 11/10/2007 RICHARD DIRECT SERVICE WORKER, JEWELS 723.1 Pain Neck 11/10/2007 RICHARD DIRECT SERVICE WORKER, JEWELS 724.2 PAIN LOW BACK 11/11/2007 ROMANO DO, JEWELS K 847.0 SPRAIN/STRAIN NECK 11/11/2007 847.0 SPRAIN/STRAIN NECK 11/11/2007 847.0 SPRAIN/STRAIN NECK 11/11/2007 TON LERMA APRN 847.0 Sprain/strain Neck 11/11/2007 MARJORIE STRONG APRN 847.0 Sprain/strain Neck 11/11/2007 847.0 Sprain/strain Neck 11/11/2007 847.0 Sprain/strain Neck 11/11/2007 847.0 Sprain/strain Neck 11/11/2007 TON LERMA APRN 847.0 Sprain/strain Neck 11/11/2007 TON LERMA APRN 847.0 Sprain/strain Neck 11/11/2007 ISAIAS VALENZUELA MD 847.0 Sprain/strain Neck 11/11/2007 MARIA GUADALUPE DIRECT SERVICE WORKER, TON S 847.0 Sprain/strain Neck 11/11/2007 MARIA GUADALUPE DIRECT SERVICE WORKER, TON S 847.0 Sprain/strain Neck 11/11/2007 MARIA GUADALUPE DIRECT SERVICE WORKER, TON S 847.0 Sprain/strain Neck 11/11/2007 MARIA GUADALUPE DIRECT SERVICE WORKER, TON S 847.0 Sprain/strain Neck 11/11/2007 MARIA GUADALUPE DIRECT SERVICE WORKER, TON S 847.0 Sprain/strain Neck 11/11/2007 CATHERINE PERALES APRN 847.0 Sprain/strain Neck 11/11/2007 MARIA GUADALUPE DIRECT SERVICE WORKER, TON S 847.0 Sprain/strain Neck 11/11/2007 MARIA GUADALUPE DIRECT SERVICE WORKER, TON S 847.0 Sprain/strain Neck 11/11/2007 MARIA GUADALUPE DIRECT SERVICE WORKER, TON S 847.0 Sprain/strain Neck 11/11/2007 MARIA GUADALUPE DIRECT SERVICE WORKER, TON S 847.0 Sprain/strain Neck 11/11/2007 VELASQUEZ KAUR PSYD ANN L 847.0 Sprain/strain Neck 11/11/2007 JEWELS ROMANO DO 847.0 Sprain/strain Neck 11/11/2007 VELASQUEZ KAUR PSYD ANN L 847.0 Sprain/strain Neck 11/11/2007 SEJAL DIRECT SERVICE WORKERSYMONE Ramos 847.0 Sprain/strain Neck 11/11/2007 RICHARD DIRECT SERVICE WORKER, JEWELS 847.0 Sprain/strain Neck 11/11/2007 RICHARD DIRECT SERVICE WORKER, JEWELS 847.0 Sprain/strain Neck 11/11/2007 RICHARD DIRECT SERVICE WORKER, JEWELS 847.0 Sprain/strain Neck 12/09/2007 JEWELS ROMANO [...] Region Not Elsewhere Classified 12/09/2007 MARIA GUADALUPE VAUGHN TON S 739.3 Nonallopathic Lesions Of Lumbar Region Not Elsewhere Classified 12/09/2007 MARIA GUADALUPE VAUGHN TON S 739.4 Nonallopathic Lesions Of Sacral Region Not Elsewhere Classified 12/09/2007 ISAIAS VALENZUELA MD 739.3 Nonallopathic Lesions Of Lumbar Region Not Elsewhere Classified 12/09/2007 ISAIAS VALENZUELA MD 739.4 Nonallopathic Lesions Of Sacral Region Not Elsewhere Classified 12/09/2007 MARIA GUADALUPE VAUGHN TON S 739.3 Nonallopathic Lesions Of Lumbar Region Not Elsewhere Classified 12/09/2007 MARIA GUADALUPE VAUGHN TON S 739.4 Nonallopathic Lesions Of Sacral Region Not Elsewhere Classified 12/09/2007 MARIA GUADALUPE VAUGHN TON S 739.3 Nonallopathic Lesions Of Lumbar Region Not Elsewhere Classified 12/09/2007 MARIA GUADALUPE DIRECT SERVICE WORKER, TON S 739.4 Nonallopathic Lesions Of Sacral Region Not Elsewhere Classified 12/09/2007 MARIA GUADALUPE DIRECT SERVICE WORKER, TON S 739.3 Nonallopathic Lesions Of Lumbar Region Not Elsewhere Classified 12/09/2007 MARIA GUADALUPE DIRECT SERVICE WORKER, TON S 739.4 Nonallopathic Lesions Of Sacral Region Not Elsewhere Classified 12/09/2007 MARIA GUADALUPE DIRECT SERVICE WORKER, TON S 739.3 Nonallopathic Lesions Of Lumbar Region Not Elsewhere Classified 12/09/2007 MARIA GUADALUPE DIRECT SERVICE WORKER, TON S 739.4 Nonallopathic Lesions Of Sacral Region Not Elsewhere Classified 12/09/2007 MARIA GUADALUPE DIRECT SERVICE WORKER, TON S 739.3 Nonallopathic Lesions Of Lumbar Region Not Elsewhere Classified 12/09/2007 MARIA GUADALUPE DIRECT SERVICE WORKER, TON S 739.4 Nonallopathic Lesions Of Sacral Region Not Elsewhere Classified 12/09/2007 CATHERINE PERALES APRN 739.3 Nonallopathic Lesions Of Lumbar Region Not Elsewhere Classified 12/09/2007 CATHERINE PERALES APRN 739.4 Nonallopathic Lesions Of Sacral Region Not Elsewhere Classified 12/09/2007 MARIA GUADALUPE DIRECT SERVICE WORKER, TON S 739.3 Nonallopathic Lesions Of Lumbar Region Not Elsewhere Classified 12/09/2007 MARIA GUADALUPE DIRECT SERVICE WORKER, TON S 739.4 Nonallopathic Lesions Of Sacral Region Not Elsewhere Classified 12/09/2007 MARIA GUADALUPE DIRECT SERVICE WORKER, TON S 739.3 Nonallopathic Lesions Of Lumbar Region Not Elsewhere Classified 12/09/2007 MARIA GUADALUPE DIRECT SERVICE WORKER, TON S 739.4 Nonallopathic Lesions Of Sacral Region Not Elsewhere Classified 12/09/2007 MARIA GUADALUPE DIRECT SERVICE WORKER, TON S 739.3 Nonallopathic Lesions Of Lumbar Region Not Elsewhere Classified 12/09/2007 MARIA GUADALUPE DIRECT SERVICE WORKER, TON S 739.4 Nonallopathic Lesions Of Sacral Region Not Elsewhere Classified 12/09/2007 MARIA GUADALUPE DIRECT SERVICE WORKER, TON S 739.3 Nonallopathic Lesions Of Lumbar Region Not Elsewhere Classified 12/09/2007 MARIA GUADALUPE DIRECT SERVICE WORKER, TON S 739.4 Nonallopathic Lesions Of Sacral Region Not Elsewhere Classified 12/09/2007 VELASQUEZ KAUR PSYD 739.3 Nonallopathic Lesions Of Lumbar Region Not Elsewhere Classified 12/09/2007 VELASQUEZ KAUR PSYD ANN L 739.4 Nonallopathic Lesions Of Sacral Region Not Elsewhere Classified 12/09/2007 JEWELS ROMANO DO 739.3 Nonallopathic Lesions Of Lumbar Region Not Elsewhere Classified 12/09/2007 JEWELS ROMANO DO 739.4 Nonallopathic Lesions Of Sacral Region Not Elsewhere Classified 12/09/2007 VELASQUEZ KAUR PSYD ANN L 739.3 Nonallopathic Lesions Of Lumbar Region Not Elsewhere Classified 12/09/2007 VELASQUEZ KAUR PSYD ANN L 739.4 Nonallopathic Lesions Of Sacral Region Not Elsewhere Classified 12/09/2007 SYMONE POST APRN 739.3 Nonallopathic Lesions Of Lumbar Region Not Elsewhere Classified 12/09/2007 SYMONE POST APRN 739.4 Nonallopathic Lesions Of Sacral Region Not Elsewhere Classified 12/09/2007 RICHARD DIRECT SERVICE WORKER, JEWELS 739.3 Nonallopathic Lesions Of Lumbar Region Not Elsewhere Classified 12/09/2007 RICHARDALFREDO VAUGHN JEWELS 739.4 Nonallopathic Lesions Of Sacral Region Not Elsewhere Classified 12/09/2007 RICHARD DIRECT SERVICE WORKER, JEWELS 739.3 Nonallopathic Lesions Of Lumbar Region Not Elsewhere Classified 12/09/2007 RICHARD DIRECT SERVICE WORKER, JEWELS 739.4 Nonallopathic Lesions Of Sacral Region Not Elsewhere Classified 12/09/2007 RICHARD DIRECT SERVICE WORKER, JEWELS 739.3 Nonallopathic Lesions Of Lumbar Region Not Elsewhere Classified 12/09/2007 RICHARD DIRECT SERVICE WORKER, JEWELS 739.4 Nonallopathic Lesions Of Sacral Region Not Elsewhere Classified 12/30/2007 JEWELS ROMANO DO 848.9 SPRAIN/STRAIN OTHER UNSPEC SITE 12/30/2007 848.9 SPRAIN/STRAIN OTHER UNSPEC SITE 12/30/2007 848.9 SPRAIN/STRAIN OTHER UNSPEC SITE 12/30/2007 TON LERMA APRN 848.9 Sprain/strain Other Unspec Site 12/30/2007 MARJORIE STRONG APRN 848.9 Sprain/strain Other Unspec Site 12/30/2007 848.9 Sprain/strain Other Unspec Site 12/30/2007 848.9 Sprain/strain Other Unspec Site 12/30/2007 848.9 Sprain/strain Other Unspec Site 12/30/2007 MARIA GUADALUPE DIRECT SERVICE WORKER, TON S 848.9 Sprain/strain Other Unspec Site 12/30/2007 MARIA GUADALUPE DIRECT SERVICE WORKER, TON S 848.9 Sprain/strain Other Unspec Site 12/30/2007 ISAIAS VALENZUELA MD 848.9 Sprain/strain Other Unspec Site 12/30/2007 MARIA GUADALUPE DIRECT SERVICE WORKER, TON S 848.9 Sprain/strain Other Unspec Site 12/30/2007 MARIA GUADALUPE DIRECT SERVICE WORKER, TON S 848.9 Sprain/strain Other Unspec Site 12/30/2007 MARIA GUADALUPE DIRECT SERVICE WORKER, TON S 848.9 Sprain/strain Other Unspec Site 12/30/2007 MARIA GUADALUPE DIRECT SERVICE WORKER, TON S 848.9 Sprain/strain Other Unspec Site 12/30/2007 MARIA GUADALUPE DIRECT SERVICE WORKER, TON S 848.9 Sprain/strain Other Unspec Site 12/30/2007 CATHERINE PERALES APRN 848.9 Sprain/strain Other Unspec Site 12/30/2007 MARIA GUADALUPE DIRECT SERVICE WORKER, TON S 848.9 Sprain/strain Other Unspec Site 12/30/2007 MARIA GUADALUPE DIRECT SERVICE WORKER, TON S 848.9 Sprain/strain Other Unspec Site 12/30/2007 MARIA GUADALUPE DIRECT SERVICE WORKER, TON S 848.9 Sprain/strain Other Unspec Site 12/30/2007 MARIA GUADALUPE DIRECT SERVICE WORKER, TON S 848.9 Sprain/strain Other Unspec Site 12/30/2007 VELASQUEZ KAUR PSYD L 848.9 Sprain/strain Other Unspec Site 12/30/2007 JEWELS ROMANO DO 848.9 Sprain/strain Other Unspec Site 12/30/2007 VELASQUEZ KAUR PSYD L 848.9 Sprain/strain Other Unspec Site 12/30/2007 SYMONE POST APRN 848.9 Sprain/strain Other Unspec Site 12/30/2007 RICHARDALFREDO VAUGHN JEWELS 848.9 Sprain/strain Other Unspec Site 12/30/2007 RICHARDALFREDO VAUGHN JEWELS 848.9 Sprain/strain Other Unspec Site 12/30/2007 RICHARDALFREDO VAUGHN JEWELS 848.9 Sprain/strain Other Unspec Site 01/17/2008 JEWELS ROMANO DO K 110.1 ONYCHOMYCOSIS 01/17/2008 110.1 ONYCHOMYCOSIS 01/17/2008 110.1 ONYCHOMYCOSIS 01/17/2008 MARIA GUADALUPE CHAUDHARIN, TON S 110.1 ONYCHOMYCOSIS 01/17/2008 MARJORIE STRONG APRN 110.1 ONYCHOMYCOSIS 01/17/2008 110.1 ONYCHOMYCOSIS 01/17/2008 110.1 ONYCHOMYCOSIS 01/17/2008 110.1 ONYCHOMYCOSIS 01/17/2008 MARIA GUADALUPE DIRECT SERVICE WORKER, TON S 110.1 ONYCHOMYCOSIS 01/17/2008 MARIA GUADALUPE CHAUDHARIN, TON S 110.1 ONYCHOMYCOSIS 01/17/2008 ISAIAS VALENZUELA MD 110.1 ONYCHOMYCOSIS 01/17/2008 MARIA GUADALUPE DIRECT SERVICE WORKER, TON S 110.1 ONYCHOMYCOSIS 01/17/2008 MARIA GUADALUPE DIRECT SERVICE WORKER, TON S 110.1 ONYCHOMYCOSIS 01/17/2008 MARIA GUADALUPE DIRECT SERVICE WORKER, TON S 110.1 ONYCHOMYCOSIS 01/17/2008 MARIA GUADALUPE DIRECT SERVICE WORKER, TON S 110.1 ONYCHOMYCOSIS 01/17/2008 MARIA GUADALUPE CHAUDHARIN, TON S 110.1 ONYCHOMYCOSIS 01/17/2008 CATHERINE PERALES APRN 110.1 ONYCHOMYCOSIS 01/17/2008 MARIA GUADALUPE DIRECT SERVICE WORKER, TON S 110.1 ONYCHOMYCOSIS 01/17/2008 MARIA GUADALUPE CHAUDHARIN, TON S 110.1 ONYCHOMYCOSIS 01/17/2008 MARIA GUADALUPE DIRECT SERVICE WORKER, TON S 110.1 ONYCHOMYCOSIS 01/17/2008 MARIA GUADALUPE DIRECT SERVICE WORKER, TON S 110.1 ONYCHOMYCOSIS 01/17/2008 VELASQUEZ KAUR PSYD 110.1 ONYCHOMYCOSIS 01/17/2008 JEWELS ROMANO DO K 110.1 ONYCHOMYCOSIS 01/17/2008 VELASQUEZ KAUR PSYD 110.1 ONYCHOMYCOSIS 01/17/2008 SYMONE POST APRN 110.1 ONYCHOMYCOSIS 01/17/2008 JEWELS RAMOS APRN 110.1 ONYCHOMYCOSIS 01/17/2008 RICHARD DIRECT SERVICE WORKER, JEWELS 110.1 ONYCHOMYCOSIS 01/17/2008 RICHARD DIRECT SERVICE WORKER, JEWELS 110.1 ONYCHOMYCOSIS 01/21/2008 JEWELS ROMANO DO [facility] MED[facility] RECORDS 01/21/2008 [facility] MED[facility] RECORDS 01/21/2008 [facility] MEDICAL RECORDS 01/21/2008 MARIA GUADALUPE DIRECT SERVICE WORKER, TON S [facility] Medical Records 01/21/2008 MARJORIE STRONG APRN [facility] Medical Records 01/21/2008 [facility] Medical Records 01/21/2008 [facility] Medical Records 01/21/2008 [facility] Medical Records 01/21/2008 MARIA GUADALUPE DIRECT SERVICE WORKER, TON S [facility] Medical Records 01/21/2008 MARIA GUADALUPE DIRECT SERVICE WORKER, TON S [facility] Medical Records 01/21/2008 BIANCA SHAH, ISAIAS [facility] Medical Records 01/21/2008 MARIA GUADALUPE DIRECT SERVICE WORKER, TON S [facility] Medical Records 01/21/2008 MARIA GUADALUPE DIRECT SERVICE WORKER, TON S [facility] Medical Records 01/21/2008 MARIA GUADALUPE DIRECT SERVICE WORKER, TON S [facility] Medical Records 01/21/2008 MARIA GUADALUPE DIRECT SERVICE WORKER, TON S [facility] Medical Records 01/21/2008 MARIA GUADALUPE DIRECT SERVICE WORKER, TON S [facility] Medical Records 01/21/2008 CATHERINE PERALES APRN [facility] Medical Records 01/21/2008 MARIA GUADALUPE DIRECT SERVICE WORKER, TON S [facility] Medical Records 01/21/2008 MARIA GUADALUPE DIRECT SERVICE WORKER, TON S [facility] Medical Records 01/21/2008 MARIA GUADALUPE DIRECT SERVICE WORKER, TON S [facility] Medical Records 01/21/2008 MARIA GUADALUPE DIRECT SERVICE WORKER, TON S [facility] Medical Records 01/21/2008 VELASQUEZ KAUR PSYD [facility] Medical Records 01/21/2008 JEWELS ROMANO DO [facility] Medical Records 01/21/2008 VELASQUEZ KAUR PSYD [facility] Medical Records 01/21/2008 SYMONE POST APRN [facility] Medical Records 01/21/2008 RICHARD DIRECT SERVICE WORKER, JEWELS [facility] Medical Records 01/21/2008 RICHARD DIRECT SERVICE WORKER, JEWELS [facility] Medical Records 01/21/2008 RICHARD DIRECT SERVICE WORKER, JEWELS [facility] Medical Records 02/10/2008 JEWELS ROMANO DO 847.9 SPRAIN/STRAIN BACK UNSPEC 02/10/2008 847.9 SPRAIN/STRAIN BACK UNSPEC 02/10/2008 847.9 SPRAIN/STRAIN BACK UNSPEC 02/10/2008 TON LERMA APRN S 847.9 Sprain/strain Back Unspec 02/10/2008 MARJORIE [...] APRNA S 847.9 Sprain/strain Back Unspec 02/10/2008 QUINTEN LERMA APRNNDA S 847.9 Sprain/strain Back Unspec 02/10/2008 QUINTEN LERMA APRNNDA S 847.9 Sprain/strain Back Unspec 02/10/2008 QUINTEN LERMA APRNNDA S 847.9 Sprain/strain Back Unspec 02/10/2008 CATHERINE PERALES APRN 847.9 Sprain/strain Back Unspec 02/10/2008 BRITNEY LERMA APRNA S 847.9 Sprain/strain Back Unspec 02/10/2008 QUINTEN LERMA APRNNDA S 847.9 Sprain/strain Back Unspec 02/10/2008 QUINTEN LERMA APRNNDA S 847.9 Sprain/strain Back Unspec 02/10/2008 QUINTNE LERMA APRNNDA S 847.9 Sprain/strain Back Unspec 02/10/2008 VELASQUEZ KAUR PSYD 847.9 Sprain/strain Back Unspec 02/10/2008 JEWELS ROMANO DO 847.9 Sprain/strain Back Unspec 02/10/2008 VELASQUEZ KAUR PSYD 847.9 Sprain/strain Back Unspec 02/10/2008 SEJAL DIRECT SERVICE WORKERSYMONE Ramos 847.9 Sprain/strain Back Unspec 02/10/2008 RICHARD DIRECT SERVICE WORKER, JEWELS 847.9 Sprain/strain Back Unspec 02/10/2008 RICHARD DIRECT SERVICE WORKER, JEWELS 847.9 Sprain/strain Back Unspec 02/10/2008 RICHARD DIRECT SERVICE WORKER, JEWELS 847.9 Sprain/strain Back Unspec 02/24/2008 JEWELS ROMANO DO 466.0 BRONCHITIS, ACUTE 02/24/2008 466.0 BRONCHITIS, ACUTE 02/24/2008 466.0 BRONCHITIS, ACUTE 02/24/2008 MARIA GUADALUPE DIRECT SERVICE WORKER, TON S 466.0 Bronchitis, Acute 02/24/2008 MARJORIE STRONG APRN 466.0 Bronchitis, Acute 02/24/2008 466.0 Bronchitis, Acute 02/24/2008 466.0 Bronchitis, Acute 02/24/2008 466.0 Bronchitis, Acute 02/24/2008 MARIA GUADALUPE DIRECT SERVICE WORKER, TON S 466.0 Bronchitis, Acute 02/24/2008 MARIA GUADALUPE DIRECT SERVICE WORKER, TON S 466.0 Bronchitis, Acute 02/24/2008 ISAIAS VALENZUELA MD 466.0 Bronchitis, Acute 02/24/2008 MARIA GUADALUPE DIRECT SERVICE WORKER, TON S 466.0 Bronchitis, Acute 02/24/2008 MARIA GUADALUPE DIRECT SERVICE WORKER, TON S 466.0 Bronchitis, Acute 02/24/2008 MARIA GUADALUPE DIRECT SERVICE WORKER, TON S 466.0 Bronchitis, Acute 02/24/2008 MARIA GUADALUPE DIRECT SERVICE WORKER, TON S 466.0 Bronchitis, Acute 02/24/2008 MARIA GUADALUPE DIRECT SERVICE WORKER, TON S 466.0 Bronchitis, Acute 02/24/2008 CATHERINE PERALES APRN 466.0 Bronchitis, Acute 02/24/2008 MARIA GUADALUPE DIRECT SERVICE WORKER, TON S 466.0 Bronchitis, Acute 02/24/2008 MARIA GUADALUPE DIRECT SERVICE WORKER, TON S 466.0 Bronchitis, Acute 02/24/2008 MARIA GUADALUPE DIRECT SERVICE WORKER, TON S 466.0 Bronchitis, Acute 02/24/2008 MARIA GUADALUPE DIRECT SERVICE WORKER, TON S 466.0 Bronchitis, Acute 02/24/2008 MCCLEEARY PSYD, GERONIMO L 466.0 Bronchitis, Acute 02/24/2008 ROMANO DO, JEWELS K 466.0 Bronchitis, Acute 02/24/2008 VELASQUEZ KAUR PSYD L 466.0 Bronchitis, Acute 02/24/2008 SEJAL DIRECT SERVICE WORKERSYMONE Ramos 466.0 Bronchitis, Acute 02/24/2008 RICHARD DIRECT SERVICE WORKER, JEWELS 466.0 Bronchitis, Acute 02/24/2008 RICHARD DIRECT SERVICE WORKER, JEWELS 466.0 Bronchitis, Acute 02/24/2008 RICHARD DIRECT SERVICE WORKER, JEWELS 466.0 Bronchitis, Acute 04/04/2008 ROMANO DO, JEWELS K 133.0 SCABIES 04/04/2008 133.0 SCABIES 04/04/2008 133.0 SCABIES 04/04/2008 MARIA GUADALUPE DIRECT SERVICE WORKER, TON S 133.0 Scabies 04/04/2008 MARJORIE STRONG APRN 133.0 Scabies 04/04/2008 133.0 Scabies 04/04/2008 133.0 Scabies 04/04/2008 133.0 Scabies 04/04/2008 MARIA GUADALUPE DIRECT SERVICE WORKER, TON S 133.0 Scabies 04/04/2008 MARIA GUADALUPE DIRECT SERVICE WORKER, TON S 133.0 Scabies 04/04/2008 BIANCA SHAH, ISAIAS 133.0 Scabies 04/04/2008 MARIA GUADALUPE DIRECT SERVICE WORKER, TON S 133.0 Scabies 04/04/2008 MARIA GUADALUPE DIRECT SERVICE WORKER, TON S 133.0 Scabies 04/04/2008 MARIA GUADALUPE DIRECT SERVICE WORKER, TON S 133.0 Scabies 04/04/2008 MARIA GUADALUPE DIRECT SERVICE WORKER, TON S 133.0 Scabies 04/04/2008 MARIA GUADALUPE DIRECT SERVICE WORKER, TON S 133.0 Scabies 04/04/2008 CATHERINE PERALES APRN 133.0 Scabies 04/04/2008 MARIA GUADALUPE DIRECT SERVICE WORKER, TON S 133.0 Scabies 04/04/2008 MARIA GUADALUPE DIRECT SERVICE WORKER, TON S 133.0 Scabies 04/04/2008 MARIA GUADALUPE DIRECT SERVICE WORKER, TON S 133.0 Scabies 04/04/2008 MARIA GUADALUPE DIRECT SERVICE WORKER, TON S 133.0 Scabies 04/04/2008 VELASQUEZ KAUR PSYD ANN L 133.0 Scabies 04/04/2008 ROMANO DO, JEWELS K 133.0 Scabies 04/04/2008 VELASQUEZ KAUR PSYD ANN L 133.0 Scabies 04/04/2008 POST DIRECT SERVICE WORKER, SYMONE D 133.0 Scabies 04/04/2008 RICHARD DIRECT SERVICE WORKER, JEWELS 133.0 Scabies 04/04/2008 RICHARD DIRECT SERVICE WORKER, JEWELS 133.0 Scabies 04/04/2008 RICHARD DIRECT SERVICE WORKER, JEWELS 133.0 Scabies 05/09/2008 ROMANO DO, JEWELS K 785.6 LYMPH NODES ENLARGEMENT 05/09/2008 785.6 LYMPH NODES ENLARGEMENT 05/09/2008 785.6 LYMPH NODES ENLARGEMENT 05/09/2008 MARIA GUADALUPE DIRECT SERVICE WORKER, TON S 785.6 Lymph Nodes Enlargement 05/09/2008 TAE DIRECT SERVICE WORKER, MARJORIE Alfredo 785.6 Lymph Nodes Enlargement 05/09/2008 785.6 Lymph Nodes Enlargement 05/09/2008 785.6 Lymph Nodes Enlargement 05/09/2008 785.6 Lymph Nodes Enlargement 05/09/2008 MARIA GUADALUPE DIRECT SERVICE WORKER, TON S 785.6 Lymph Nodes Enlargement 05/09/2008 MARIA GUADALUPE DIRECT SERVICE WORKER, TON S 785.6 Lymph Nodes Enlargement 05/09/2008 ISAIAS VALENZUELA MD 785.6 Lymph Nodes Enlargement 05/09/2008 MARIA GUADALUPE DIRECT SERVICE WORKER, TON S 785.6 Lymph Nodes Enlargement 05/09/2008 MARIA GUADALUPE DIRECT SERVICE WORKER, TON S 785.6 Lymph Nodes Enlargement 05/09/2008 MARIA GUADALUPE DIRECT SERVICE WORKER, TON S 785.6 Lymph Nodes Enlargement 05/09/2008 MARIA GUADALUPE DIRECT SERVICE WORKER, TON S 785.6 Lymph Nodes Enlargement 05/09/2008 MARIA GUADALUPE DIRECT SERVICE WORKER, TON S 785.6 Lymph Nodes Enlargement 05/09/2008 DIAZ DIRECT SERVICE WORKERCATHERINE 785.6 Lymph Nodes Enlargement 05/09/2008 MARIA GUADALUPE DIRECT SERVICE WORKER, TON S 785.6 Lymph Nodes Enlargement 05/09/2008 MARIA GUADALUPE DIRECT SERVICE WORKER, TON S 785.6 Lymph Nodes Enlargement 05/09/2008 MARIA GUADALUPE DIRECT SERVICE WORKER, TON S 785.6 Lymph Nodes Enlargement 05/09/2008 BRITNEY LERMA APRNA S 785.6 Lymph Nodes Enlargement 05/09/2008 VELASQUEZ KAUR PSYD L 785.6 Lymph Nodes Enlargement 05/09/2008 RMOANO DO JEWELS K 785.6 Lymph Nodes Enlargement 05/09/2008 VELASQUEZ KAUR PSYD ANN L 785.6 Lymph Nodes Enlargement 05/09/2008 POST SYMONE VAUGHN 785.6 Lymph Nodes Enlargement 05/09/2008 RICHARD DIRECT SERVICE WORKER, JEWELS 785.6 Lymph Nodes Enlargement 05/09/2008 RICHARD DIRECT SERVICE WORKER, JEWELS 785.6 Lymph Nodes Enlargement 05/09/2008 RICHARD DIRECT SERVICE WORKER, JEWELS 785.6 Lymph Nodes Enlargement 08/07/2008 ROMANO DOSACHAA K 278.02 Overweight 08/07/2008 ROMANO DOSACHAA K 590.9 INFECTION OF KIDNEY 08/07/2008 ROMANO DOSACHAA K 599.0 URINARY TRACT INFECTION 08/07/2008 ROMANO JEWELS OTTO K 696.1 PSORIASIS 08/07/2008 278.02 Overweight 08/07/2008 590.9 INFECTION OF KIDNEY 08/07/2008 599.0 URINARY TRACT INFECTION 08/07/2008 696.1 PSORIASIS 08/07/2008 278.02 Overweight 08/07/2008 590.9 INFECTION OF KIDNEY 08/07/2008 599.0 URINARY TRACT INFECTION 08/07/2008 696.1 PSORIASIS 08/07/2008 BRITNEY LERMA APRNA S 278.02 Overweight 08/07/2008 BRITNEY LERMA APRNA S 590.9 Infection Of Kidney 08/07/2008 BRITNEY LERMA APRNA S 599.0 Urinary Tract Infection 08/07/2008 QUINTEN LERMA APRNNDA S 696.1 PSORIASIS 08/07/2008 MARJORIE STRONG APRN [...] Infection 08/07/2008 696.1 PSORIASIS 08/07/2008 MARIA GUADALUPE DIRECT SERVICE WORKER, TON S 278.02 Overweight 08/07/2008 MARIA GUADALUPE DIRECT SERVICE WORKER, TON S 590.9 Infection Of Kidney 08/07/2008 MARIA GUADALUPE DIRECT SERVICE WORKER, TON S 599.0 Urinary Tract Infection 08/07/2008 MARIA GUADALUPE DIRECT SERVICE WORKER, TON S 696.1 PSORIASIS 08/07/2008 MARIA GUADALUPE DIRECT SERVICE WORKER, TON S 278.02 Overweight 08/07/2008 MARIA GUADALUPE DIRECT SERVICE WORKER, TON S 590.9 Infection Of Kidney 08/07/2008 MARIA GUADALUPE DIRECT SERVICE WORKER, TON S 599.0 Urinary Tract Infection 08/07/2008 MARIA GUADALUPE DIRECT SERVICE WORKER, TON S 696.1 PSORIASIS 08/07/2008 ISAIAS VALENZUELA MD 278.02 Overweight 08/07/2008 ISAIAS VALENZUELA MD 590.9 Infection Of Kidney 08/07/2008 ISAIAS VALENZUELA MD 599.0 Urinary Tract Infection 08/07/2008 ISAIAS VALENZUELA MD 696.1 PSORIASIS 08/07/2008 MARIA GUADALUPE DIRECT SERVICE WORKER, TON S 278.02 Overweight 08/07/2008 MARIA GUADALUPE DIRECT SERVICE WORKER, TON S 590.9 Infection Of Kidney 08/07/2008 MARIA GUADALUPE DIRECT SERVICE WORKER, TON S 599.0 Urinary Tract Infection 08/07/2008 MARIA GUADALUPE DIRECT SERVICE WORKER, TON S 696.1 PSORIASIS 08/07/2008 MARIA GUADALUPE DIRECT SERVICE WORKER, TON S 278.02 Overweight 08/07/2008 MARIA GUADALUPE DIRECT SERVICE WORKER, TON S 590.9 Infection Of Kidney 08/07/2008 MARIA GUADALUPE DIRECT SERVICE WORKER, TON S 599.0 Urinary Tract Infection 08/07/2008 MARIA GUADALUPE DIRECT SERVICE WORKER, TON S 696.1 PSORIASIS 08/07/2008 MARIA GUADALUPE DIRECT SERVICE WORKER, TON S 278.02 Overweight 08/07/2008 MARIA GUADALUPE DIRECT SERVICE WORKER, TON S 590.9 Infection Of Kidney 08/07/2008 MARIA GUADALUPE DIRECT SERVICE WORKER, TON S 599.0 Urinary Tract Infection 08/07/2008 MARIA GUADALUPE DIRECT SERVICE WORKER, TON S 696.1 PSORIASIS 08/07/2008 MARIA GUADALUPE DIRECT SERVICE WORKER, TON S 278.02 Overweight 08/07/2008 MARIA GUADALUPE DIRECT SERVICE WORKER, TON S 590.9 Infection Of Kidney 08/07/2008 MARIA GUADALUPE DIRECT SERVICE WORKER, TON S 599.0 Urinary Tract Infection 08/07/2008 MARIA GUADALUPE DIRECT SERVICE WORKER, TON S 696.1 PSORIASIS 08/07/2008 MARIA GUADALUPE DIRECT SERVICE WORKER, TON S 278.02 Overweight 08/07/2008 MARIA GUADALUPE DIRECT SERVICE WORKER, TON S 590.9 Infection Of Kidney 08/07/2008 MARIA GUADALUPE DIRECT SERVICE WORKER, TON S 599.0 Urinary Tract Infection 08/07/2008 MARIA GUADALUPE DIRECT SERVICE WORKER, TON S 696.1 PSORIASIS 08/07/2008 DIAZ DIRECT SERVICE WORKER, CATHERINE T 278.02 Overweight 08/07/2008 DIAZ DIRECT SERVICE WORKER, CATHERINE T 590.9 Infection Of Kidney 08/07/2008 DIAZ DIRECT SERVICE WORKER, CATHERINE T 599.0 Urinary Tract Infection 08/07/2008 DIAZ DIRECT SERVICE WORKER, CATHERINE T 696.1 PSORIASIS 08/07/2008 MARIA GUADALUPE DIRECT SERVICE WORKER, TON S 278.02 Overweight 08/07/2008 MARIA GUADALUPE DIRECT SERVICE WORKER, TON S 590.9 Infection Of Kidney 08/07/2008 MARIA GUADALUPE DIRECT SERVICE WORKER, TON S 599.0 Urinary Tract Infection 08/07/2008 MARIA GUADALUPE DIRECT SERVICE WORKER, TON S 696.1 PSORIASIS 08/07/2008 MARIA GUADALUPE DIRECT SERVICE WORKER, TON S 278.02 Overweight 08/07/2008 MARIA GUADALUPE DIRECT SERVICE WORKER, TON S 590.9 Infection Of Kidney 08/07/2008 MARIA GUADALUPE DIRECT SERVICE WORKER, TON S 599.0 Urinary Tract Infection 08/07/2008 MARIA GUADALUPE DIRECT SERVICE WORKER, TON S 696.1 PSORIASIS 08/07/2008 MARIA GUADALUPE DIRECT SERVICE WORKER, TON S 278.02 Overweight 08/07/2008 MARIA GUADALUPE DIRECT SERVICE WORKER, TON S 590.9 Infection Of Kidney 08/07/2008 MARIA GUADALUPE DIRECT SERVICE WORKER, TON S 599.0 Urinary Tract Infection 08/07/2008 MARIA GUADALUPE DIRECT SERVICE WORKER, TON S 696.1 PSORIASIS 08/07/2008 MARIA GUADALUPE DIRECT SERVICE WORKER, TON S 278.02 Overweight 08/07/2008 MARIA GUADALUPE DIRECT SERVICE WORKER, TON S 590.9 Infection Of Kidney 08/07/2008 MARIA GUADALUPE DIRECT SERVICE WORKER, TON S 599.0 Urinary Tract Infection 08/07/2008 MARIA GUADALUPE DIRECT SERVICE WORKER, TON S 696.1 PSORIASIS 08/07/2008 VELASQUEZ KAUR [...] K 696.1 PSORIASIS 08/07/2008 VELASQUEZ KAUR PSYD L 278.02 Overweight 08/07/2008 VELASQUEZ KAUR PSYD L 590.9 Infection Of Kidney 08/07/2008 VELASQUEZ KAUR PSYD L 599.0 Urinary Tract Infection 08/07/2008 VELASQUEZ KAUR PSYD L 696.1 PSORIASIS 08/07/2008 SYMONE POST APRN 278.02 Overweight 08/07/2008 SYMONE POST APRN 590.9 Infection Of Kidney 08/07/2008 SYMONE POST APRN 599.0 Urinary Tract Infection 08/07/2008 SYMONE POST APRN 696.1 PSORIASIS 08/07/2008 RICHARD JOHANA JEWELS 278.02 Overweight 08/07/2008 STEVE RAMOS APRNETTE 590.9 Infection Of Kidney 08/07/2008 RICHARD DIRECT SERVICE WORKER, JEWELS 599.0 Urinary Tract Infection 08/07/2008 RICHARD DIRECT SERVICE WORKER, JEWELS 696.1 PSORIASIS 08/07/2008 RICHARD DIRECT SERVICE WORKER, JEWELS 278.02 Overweight 08/07/2008 RICHARD DIRECT SERVICE WORKER, JEWELS 590.9 Infection Of Kidney 08/07/2008 RICHARD DIRECT SERVICE WORKER, JEWELS 599.0 Urinary Tract Infection 08/07/2008 RICHARD DIRECT SERVICE WORKER, JEWELS 696.1 PSORIASIS 08/07/2008 RICHARD DIRECT SERVICE WORKER, JEWELS 278.02 Overweight 08/07/2008 RICHARD DIRECT SERVICE WORKER, JEWELS 590.9 Infection Of Kidney 08/07/2008 RICHARD DIRECT SERVICE WORKER, JEWELS 599.0 Urinary Tract Infection 08/07/2008 RICHARD DIRECT SERVICE WORKER, JEWELS 696.1 PSORIASIS 08/10/2008 JEWELS ROMANO DO K 784.0 HEADACHE 08/10/2008 784.0 HEADACHE 08/10/2008 784.0 HEADACHE 08/10/2008 MARIA GUADALUPE DIRECT SERVICE WORKER, TON S 784.0 Headache 08/10/2008 MARJOIRE STRONG APRN 784.0 Headache 08/10/2008 784.0 Headache 08/10/2008 784.0 Headache 08/10/2008 784.0 Headache 08/10/2008 MARIA GUADALUPE DIRECT SERVICE WORKER, TON S 784.0 Headache 08/10/2008 MARIA GUADALUPE DIRECT SERVICE WORKER, TON S 784.0 Headache 08/10/2008 ISAIAS VALENZUELA MD 784.0 Headache 08/10/2008 MARIA GUADALUPE DIRECT SERVICE WORKER, TON S 784.0 Headache 08/10/2008 MARIA GUADALUPE DIRECT SERVICE WORKER, TON S 784.0 Headache 08/10/2008 MARIA GUADALUPE DIRECT SERVICE WORKER, TON S 784.0 Headache 08/10/2008 MARIA GUADALUPE DIRECT SERVICE WORKER, TON S 784.0 Headache 08/10/2008 MARIA GUADALUPE DIRECT SERVICE WORKER, TON S 784.0 Headache 08/10/2008 DIAZ DIRECT SERVICE WORKERCATHERINE Ramos 784.0 Headache 08/10/2008 MARIA GUADALUPE DIRECT SERVICE WORKER, TON S 784.0 Headache 08/10/2008 MARIA GUADALUPE DIRECT SERVICE WORKER, TON S 784.0 Headache 08/10/2008 MARIA GUADALUPE DIRECT SERVICE WORKER, TON S 784.0 Headache 08/10/2008 MARIA GUADALUPE DIRECT SERVICE WORKER, TON S 784.0 Headache 08/10/2008 VELASQUEZ KAUR PSYD L 784.0 Headache 08/10/2008 ROMANO JEWELS OTTO K 784.0 Headache 08/10/2008 VELASQUEZ KAUR PSYD ANN L 784.0 Headache 08/10/2008 POST DIRECT SERVICE WORKERSYMONE Ramos 784.0 Headache 08/10/2008 RICHARD DIRECT SERVICE WORKER, JEWELS 784.0 Headache 08/10/2008 RICHARD DIRECT SERVICE WORKER, JEWELS 784.0 Headache 08/10/2008 RICHARD DIRECT SERVICE WORKER, JEWELS 784.0 Headache 08/30/2008 ROMANO DOJEWELS K 788.1 DYSURIA 08/30/2008 788.1 DYSURIA 08/30/2008 788.1 DYSURIA 08/30/2008 MARIA GUADALUPE CHAUDHARIN, TON S 788.1 Dysuria 08/30/2008 MARJORIE STRONG APRN 788.1 Dysuria 08/30/2008 788.1 Dysuria 08/30/2008 788.1 Dysuria 08/30/2008 788.1 Dysuria 08/30/2008 MARIA GUADALUPE DIRECT SERVICE WORKER, TON S 788.1 Dysuria 08/30/2008 MARIA GUADALUPE DIRECT SERVICE WORKER, TON S 788.1 Dysuria 08/30/2008 BIANCA SHAH, ISAIAS 788.1 Dysuria 08/30/2008 MARIA GUADALUPE DIRECT SERVICE WORKER, TON S 788.1 Dysuria 08/30/2008 MARIA GUADALUPE DIRECT SERVICE WORKER, TON S 788.1 Dysuria 08/30/2008 MARIA GUADALUPE DIRECT SERVICE WORKER, TON S 788.1 Dysuria 08/30/2008 MARIA GUADALUPE DIRECT SERVICE WORKER, TON S 788.1 Dysuria 08/30/2008 MARIA GUADALUPE DIRECT SERVICE WORKER, TON S 788.1 Dysuria 08/30/2008 CATHERINE PERALES APRN 788.1 Dysuria 08/30/2008 MARIA GUADALUPE DIRECT SERVICE WORKER, TON S 788.1 Dysuria 08/30/2008 MARIA GUADALUPE DIRECT SERVICE WORKER, TON S 788.1 Dysuria 08/30/2008 MARIA GUADALUPE DIRECT SERVICE WORKER, TON S 788.1 Dysuria 08/30/2008 MARIA GUADALUPE DIRECT SERVICE WORKER, TON S 788.1 Dysuria 08/30/2008 VELASQUEZ KAUR PSYD L 788.1 Dysuria 08/30/2008 ROMANO DO, JEWELS K 788.1 Dysuria 08/30/2008 VELASQUEZ KAUR PSYD ANN L 788.1 Dysuria 08/30/2008 POST SYMONE VAUGHN 788.1 Dysuria 08/30/2008 RICHARD DIRECT SERVICE WORKER, JEWELS 788.1 Dysuria 08/30/2008 RICHARD DIRECT SERVICE WORKER, JEWELS 788.1 Dysuria 08/30/2008 RICHARD DIRECT SERVICE WORKER, JEWELS 788.1 Dysuria 09/18/2008 ROMANO DO, JEWELS K 789.00 ABDOMINAL PAIN UNSPECIFIED SITE 09/18/2008 789.00 [...] Pain Unspecified Site 09/18/2008 MARIA GUADALUPE CHAUDHARIN, TNO S 789.00 Abdominal Pain Unspecified Site 09/18/2008 ISAIAS VALENZUELA MD 789.00 Abdominal Pain Unspecified Site 09/18/2008 MARIA GUADALUPE DIRECT SERVICE WORKER, TON S 789.00 Abdominal Pain Unspecified Site 09/18/2008 MARIA GUADALUPE CHAUDHARIN, TON S 789.00 Abdominal Pain Unspecified Site 09/18/2008 MARIA GUADALUPE DIRECT SERVICE WORKER, TON S 789.00 Abdominal Pain Unspecified Site 09/18/2008 MARIA GUADALUPE CHAUDHARIN, TON S 789.00 Abdominal Pain Unspecified Site 09/18/2008 MARIA GUADALUPE DIRECT SERVICE WORKER, TON S 789.00 Abdominal Pain Unspecified Site 09/18/2008 CATHERINE PERALES APRN 789.00 Abdominal Pain Unspecified Site 09/18/2008 MARIA GUADALUPE VAUGHN, TON S 789.00 Abdominal Pain Unspecified Site 09/18/2008 MARIA GUADALUPE DIRECT SERVICE WORKER, TON S 789.00 Abdominal Pain Unspecified Site 09/18/2008 MARIA GUADALUPE DIRECT SERVICE WORKER, TON S 789.00 Abdominal Pain Unspecified Site 09/18/2008 MARIA GUADALUPE DIRECT SERVICE WORKER, TON S 789.00 Abdominal Pain Unspecified Site 09/18/2008 VELASQUEZ KAUR PSYD ANN L 789.00 Abdominal Pain Unspecified Site 09/18/2008 JEWELS ROMANO DO K 789.00 Abdominal Pain Unspecified Site 09/18/2008 VELASQUEZ KAUR PSYD ANN L 789.00 Abdominal Pain Unspecified Site 09/18/2008 POST DIRECT SERVICE WORKER, SYMONE D 789.00 Abdominal Pain Unspecified Site 09/18/2008 RICHARD DIRECT SERVICE WORKER, JEWELS 789.00 Abdominal Pain Unspecified Site 09/18/2008 RICHARD DIRECT SERVICE WORKER, JEWELS 789.00 Abdominal Pain Unspecified Site 09/18/2008 RICHARD DIRECT SERVICE WORKER, JEWELS 789.00 Abdominal Pain Unspecified Site 10/18/2008 JEWELS ROMANO DO K 009.1 GASTROENTERITIS INFECT 10/18/2008 009.1 GASTROENTERITIS INFECT 10/18/2008 009.1 GASTROENTERITIS INFECT 10/18/2008 BRITNEY LERMA APRNA S 009.1 Gastroenteritis Infect 10/18/2008 MARJORIE STRONG [...] S 009.1 Gastroenteritis Infect 10/18/2008 MARIA GUADALUPE VAUGHN TON S 009.1 Gastroenteritis Infect 10/18/2008 QUINTEN LERMA APRNNDA S 009.1 Gastroenteritis Infect 10/18/2008 CATHERINE PERALES APRN 009.1 Gastroenteritis Infect 10/18/2008 MARIA GUADALUPE DIRECT SERVICE WORKER, TON S 009.1 Gastroenteritis Infect 10/18/2008 MARIA GUADALUPE CHAUDHARIN, TON S 009.1 Gastroenteritis Infect 10/18/2008 MARIA GUADALUPE CHAUDHARIN, TON S 009.1 Gastroenteritis Infect 10/18/2008 MARIA GUADALUPE CHAUDHARIN, TON S 009.1 Gastroenteritis Infect 10/18/2008 VELASQUEZ KAUR PSYD ANN L 009.1 Gastroenteritis Infect 10/18/2008 ROMANO JEWELS OTTO K 009.1 Gastroenteritis Infect 10/18/2008 VELASQUEZ KAUR PSYD ANN L 009.1 Gastroenteritis Infect 10/18/2008 POSTSYMONE Ventura APRN 009.1 Gastroenteritis Infect 10/18/2008 RICHARD DIRECT SERVICE WORKER, JEWELS 009.1 Gastroenteritis Infect 10/18/2008 RICHARD DIRECT SERVICE WORKER, JEWELS 009.1 Gastroenteritis Infect 10/18/2008 RICHARD DIRECT SERVICE WORKER, JEWELS 009.1 Gastroenteritis Infect 10/20/2008 ROMANO JEWELS OTTO K 008.62 GASTROENTERITIS VIRAL ADENOVIRUS 10/20/2008 008.62 GASTROENTERITIS VIRAL ADENOVIRUS 10/20/2008 008.62 GASTROENTERITIS VIRAL ADENOVIRUS 10/20/2008 QUINTEN LERMA APRNNDA S 008.62 Gastroenteritis Viral Adenovirus 10/20/2008 MARJORIE STRONG APRN 008.62 Gastroenteritis Viral Adenovirus 10/20/2008 008.62 Gastroenteritis Viral Adenovirus 10/20/2008 008.62 Gastroenteritis Viral Adenovirus 10/20/2008 008.62 Gastroenteritis Viral Adenovirus 10/20/2008 BRITNEY LERMA APRNA S 008.62 Gastroenteritis Viral Adenovirus 10/20/2008 QUINTEN LERMA APRNNDA S 008.62 Gastroenteritis Viral Adenovirus 10/20/2008 ISAIAS VALENZUELA MD 008.62 Gastroenteritis Viral Adenovirus 10/20/2008 MARIA GUADALUPE VAUGHN, TON S 008.62 Gastroenteritis Viral Adenovirus 10/20/2008 MARIA GUADALUPE VAUGHN, TON S 008.62 Gastroenteritis Viral Adenovirus 10/20/2008 QUINTEN LERMA APRNNDA S 008.62 Gastroenteritis Viral Adenovirus 10/20/2008 MARIA GUADALUPE CHAUDHARIN, TON S 008.62 Gastroenteritis Viral Adenovirus 10/20/2008 QUINTEN LERMA APRNNDA S 008.62 Gastroenteritis Viral Adenovirus 10/20/2008 CATHERINE PERALES APRN 008.62 Gastroenteritis Viral Adenovirus 10/20/2008 MARIA GUADALUPE DIRECT SERVICE WORKER, TON S 008.62 Gastroenteritis Viral Adenovirus 10/20/2008 MARIA GUADALUPE DIRECT SERVICE WORKER, TON S 008.62 Gastroenteritis Viral Adenovirus 10/20/2008 MARIA GUADALUPE DIRECT SERVICE WORKER, TON S 008.62 Gastroenteritis Viral Adenovirus 10/20/2008 MARIA GUADALUPE DIRECT SERVICE WORKER, TON S 008.62 Gastroenteritis Viral Adenovirus 10/20/2008 VELASQUEZ KAUR PSYD ANN L 008.62 Gastroenteritis Viral Adenovirus 10/20/2008 JEWELS ROMANO DO 008.62 Gastroenteritis Viral Adenovirus 10/20/2008 VELASQUEZ KAUR PSYD ANN L 008.62 Gastroenteritis Viral Adenovirus 10/20/2008 POST DIRECT SERVICE WORKERSYMONE Ramos 008.62 Gastroenteritis Viral Adenovirus 10/20/2008 RICHARD DIRECT SERVICE WORKER, JEWELS 008.62 Gastroenteritis Viral Adenovirus 10/20/2008 RICHARD DIRECT SERVICE WORKER, JEWELS 008.62 Gastroenteritis Viral Adenovirus 10/20/2008 RICHARD DIRECT SERVICE WORKER, JEWELS 008.62 Gastroenteritis Viral Adenovirus 05/08/2009 JEWELS ROMANO DO 461.1 ACUTE FRONTAL SINUSITIS 05/08/2009 JEWELS ROMANO DO 719.49 PAIN IN JOINT, MULTIPLE SITES 05/08/2009 461.1 ACUTE FRONTAL SINUSITIS 05/08/2009 719.49 PAIN IN JOINT , MULTIPLE SITES 05/08/2009 461.1 ACUTE FRONTAL SINUSITIS 05/08/2009 719.49 PAIN IN JOINT , MULTIPLE SITES 05/08/2009 TON LERMA APRN 461.1 Acute Frontal Sinusitis 05/08/2009 TON LERMA APRN 719.49 PAIN IN JOINT, MULTIPLE SITES [...] , MULTIPLE SITES 05/08/2009 TON LERMA APRN 461.1 Acute Frontal Sinusitis 05/08/2009 MARIA GUADALUPE DIRECT SERVICE WORKER, TON S 719.49 PAIN IN JOINT, MULTIPLE SITES 05/08/2009 MARIA GUADALUPE DIRECT SERVICE WORKER, TON S 461.1 Acute Frontal Sinusitis 05/08/2009 MARIA GUADALUPE DIRECT SERVICE WORKER, TON S 719.49 PAIN IN JOINT, MULTIPLE SITES 05/08/2009 BIANCA SHAH, ISAIAS 461.1 Acute Frontal Sinusitis 05/08/2009 ISAIAS VALENZUELA MD 719.49 PAIN IN JOINT, MULTIPLE SITES 05/08/2009 MARIA GUADALUPE DIRECT SERVICE WORKER, TON S 461.1 Acute Frontal Sinusitis 05/08/2009 MARIA GUADALUPE DIRECT SERVICE WORKER, TON S 719.49 PAIN IN JOINT, MULTIPLE SITES 05/08/2009 MARIA GUADALUPE DIRECT SERVICE WORKER, TON S 461.1 Acute Frontal Sinusitis 05/08/2009 MARIA GUADALUPE DIRECT SERVICE WORKER, TON S 719.49 PAIN IN JOINT, MULTIPLE SITES 05/08/2009 MARIA GUADALUPE DIRECT SERVICE WORKER, TON S 461.1 Acute Frontal Sinusitis 05/08/2009 MARIA GUADALUPE DIRECT SERVICE WORKER, TON S 719.49 PAIN IN JOINT, MULTIPLE SITES 05/08/2009 MARIA GUADALUPE DIRECT SERVICE WORKER, TON S 461.1 Acute Frontal Sinusitis 05/08/2009 MARIA GUADALUPE DIRECT SERVICE WORKER, TON S 719.49 PAIN IN JOINT, MULTIPLE SITES 05/08/2009 MARIA GUADALUPE DIRECT SERVICE WORKER, TON S 461.1 Acute Frontal Sinusitis 05/08/2009 MARIA GUADALUPE DIRECT SERVICE WORKER, TON S 719.49 PAIN IN JOINT, MULTIPLE SITES 05/08/2009 CATHERINE PERALES APRN 461.1 Acute Frontal Sinusitis 05/08/2009 CATHERINE PERALES APRN 719.49 PAIN IN JOINT, MULTIPLE SITES 05/08/2009 MARIA GUADALUPE DIRECT SERVICE WORKER, TON S 461.1 Acute Frontal Sinusitis 05/08/2009 MARIA GUADALUPE DIRECT SERVICE WORKER, TON S 719.49 PAIN IN JOINT, MULTIPLE SITES 05/08/2009 MARIA GUADALUPE DIRECT SERVICE WORKER, TON S 461.1 Acute Frontal Sinusitis 05/08/2009 MARIA GUADALUPE DIRECT SERVICE WORKER, TON S 719.49 PAIN IN JOINT, MULTIPLE SITES 05/08/2009 MARIA GUADALUPE DIRECT SERVICE WORKER, TON S 461.1 Acute Frontal Sinusitis 05/08/2009 MARIA GUADALUPE DIRECT SERVICE WORKER, TON S 719.49 PAIN IN JOINT, MULTIPLE SITES 05/08/2009 MARIA GUADALUPE DIRECT SERVICE WORKER TON S 461.1 Acute Frontal Sinusitis 05/08/2009 MARIA GUADALUPE DIRECT SERVICE WORKER, TON S 719.49 PAIN IN JOINT, MULTIPLE SITES 05/08/2009 VELASQUEZ KAUR PSYD L 461.1 Acute Frontal Sinusitis 05/08/2009 VELASQUEZ KAUR PSYD ANN L 719.49 PAIN IN JOINT, MULTIPLE SITES 05/08/2009 ROMANO DOSACHAA K 461.1 Acute Frontal Sinusitis 05/08/2009 JUAN ANTONIO DOJEWELS K 719.49 PAIN IN JOINT, MULTIPLE SITES 05/08/2009 VELASQUEZ KAUR PSYD L 461.1 Acute Frontal Sinusitis 05/08/2009 VELASQUEZ KAUR PSYD ANN L 719.49 PAIN IN JOINT, MULTIPLE SITES 05/08/2009 POST SYMONE VAUGHN 461.1 Acute Frontal Sinusitis 05/08/2009 POST SYMONE VAUGHN 719.49 PAIN IN JOINT, MULTIPLE SITES 05/08/2009 RICHARD DIRECT SERVICE WORKER, JEWELS 461.1 Acute Frontal Sinusitis 05/08/2009 RICHARD DIRECT SERVICE WORKER, JEWELS 719.49 PAIN IN JOINT, MULTIPLE SITES 05/08/2009 RICHARD DIRECT SERVICE WORKER, JEWELS 461.1 Acute Frontal Sinusitis 05/08/2009 RICHARD DIRECT SERVICE WORKER, JEWELS 719.49 PAIN IN JOINT, MULTIPLE SITES 05/08/2009 RICHARD DIRECT SERVICE WORKER, JEWELS 461.1 Acute Frontal Sinusitis 05/08/2009 RICHARD DIRECT SERVICE WORKER, JEWELS 719.49 PAIN IN JOINT, MULTIPLE SITES 05/24/2009 ROMANO DOSACHAA K 465.9 UPPER RESPIRATORY INFECTION 05/24/2009 465.9 UPPER RESPIRATORY INFECTION 05/24/2009 465.9 UPPER RESPIRATORY INFECTION 05/24/2009 TON LERMA APRN S 465.9 Upper Respiratory Infection 05/24/2009 MARJORIE STRONG APRN 465.9 Upper Respiratory Infection 05/24/2009 465.9 Upper Respiratory Infection 05/24/2009 465.9 Upper Respiratory Infection 05/24/2009 465.9 Upper Respiratory Infection 05/24/2009 MARIA GUADALUPE DIRECT SERVICE WORKER, TON S 465.9 Upper Respiratory Infection 05/24/2009 MARIA GUADALUPE DIRECT SERVICE WORKER, TON S 465.9 Upper Respiratory Infection 05/24/2009 ISAIAS VALENZUELA MD 465.9 Upper Respiratory Infection 05/24/2009 MARIA GUADALUPE DIRECT SERVICE WORKER, TON S 465.9 Upper Respiratory Infection 05/24/2009 MARIA GUADALUPE DIRECT SERVICE WORKER, TON S 465.9 Upper Respiratory Infection 05/24/2009 MARIA GUADALUPE DIRECT SERVICE WORKER, TON S 465.9 Upper Respiratory Infection 05/24/2009 MARIA GUADALUPE DIRECT SERVICE WORKER, TON S 465.9 Upper Respiratory Infection 05/24/2009 MARIA GUADALUPE DIRECT SERVICE WORKER, TON S 465.9 Upper Respiratory Infection 05/24/2009 DIAZ DIRECT SERVICE WORKERCATHERINE Ramos 465.9 Upper Respiratory Infection 05/24/2009 MARIA GUADALUPE DIRECT SERVICE WORKER, TON S 465.9 Upper Respiratory Infection 05/24/2009 MARIA GUADALUPE DIRECT SERVICE WORKER, TON S 465.9 Upper Respiratory Infection 05/24/2009 MARIA GUADALUPE DIRECT SERVICE WORKER, TON S 465.9 Upper Respiratory Infection 05/24/2009 MARIA GUADALUPE DIRECT SERVICE WORKER, TON S 465.9 Upper Respiratory Infection 05/24/2009 VELASQUEZ KAUR PSYD L 465.9 Upper Respiratory Infection 05/24/2009 JEWELS ROMANO DO 465.9 Upper Respiratory Infection 05/24/2009 VELASQUEZ KAUR PSYD ANN L 465.9 Upper Respiratory Infection 05/24/2009 SYMONE POST APRN 465.9 Upper Respiratory Infection 05/24/2009 RICHARD DIRECT SERVICE WORKER, JEWELS 465.9 Upper Respiratory Infection 05/24/2009 RICHARD DIRECT SERVICE WORKER, JEWELS 465.9 Upper Respiratory Infection 05/24/2009 RICHARD DIRECT SERVICE WORKER, JEWELS 465.9 Upper Respiratory Infection 06/01/2009 JEWELS [...] 786.59 OTHER CHEST PAIN 06/01/2009 MARIA GUADALUPE VAUGHN TON S 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 OF DRUGS, TOBACCO USE DISORDER 06/01/2009 MARIA GUADALUPE VAUGHN TON S 401.1 HYPERTENSION, BENIGN ESSENTIAL 06/01/2009 MARIA GUADALUPE VAUGHN TON S 786.59 Other Chest Pain 06/01/2009 MARJORIE STRONG APRN M 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 OF DRUGS, TOBACCO USE DISORDER 06/01/2009 MARJORIE STRONG APRN M 401.1 HYPERTENSION, BENIGN ESSENTIAL 06/01/2009 GEOFFREY STRONG APRNON M 786.59 Other Chest Pain 06/01/2009 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 OF DRUGS, TOBACCO USE DISORDER 06/01/2009 401.1 HYPERTENSION, BENIGN ESSENTIAL 06/01/2009 786.59 Other Chest Pain 06/01/2009 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 OF DRUGS, TOBACCO USE DISORDER 06/01/2009 401.1 HYPERTENSION, BENIGN ESSENTIAL 06/01/2009 786.59 Other Chest Pain 06/01/2009 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 OF DRUGS, TOBACCO USE DISORDER 06/01/2009 401.1 HYPERTENSION, BENIGN ESSENTIAL 06/01/2009 786.59 Other Chest Pain 06/01/2009 QUINTEN LERMA APRNNDA S 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 OF DRUGS, TOBACCO USE DISORDER 06/01/2009 QUINTEN LERMA APRNNDA S 401.1 HYPERTENSION, BENIGN ESSENTIAL 06/01/2009 MARIA GUADALUPE VAUGHN TON S 786.59 Other Chest Pain 06/01/2009 MARIA GUADALUPE VAUGHN, TON S 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 OF DRUGS, TOBACCO USE DISORDER 06/01/2009 MARIA GUADALUPE VAUGHN TON S 401.1 HYPERTENSION, BENIGN ESSENTIAL 06/01/2009 MARIA GUADALUPE VAUGHN TON S 786.59 Other Chest Pain 06/01/2009 ISAIAS VALENZUELA MD 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 OF DRUGS, TOBACCO USE DISORDER 06/01/2009 ISAIAS VALENZUELA MD 401.1 HYPERTENSION, BENIGN ESSENTIAL 06/01/2009 ISAIAS VALENZUELA MD 786.59 Other Chest Pain 06/01/2009 MARIA GUADALUPE DIRECT SERVICE WORKER, TON S 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 OF DRUGS, TOBACCO USE DISORDER 06/01/2009 MARIA GUADALUPE DIRECT SERVICE WORKER, TON S 401.1 HYPERTENSION, BENIGN ESSENTIAL 06/01/2009 MARIA GUADALUPE DIRECT SERVICE WORKER, TON S 786.59 Other Chest Pain 06/01/2009 MARIA GUADALUPE DIRECT SERVICE WORKER, TON S 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 OF DRUGS, TOBACCO USE DISORDER 06/01/2009 MARIA GUADALUPE DIRECT SERVICE WORKER, TON S 401.1 HYPERTENSION, BENIGN ESSENTIAL 06/01/2009 MARIA GUADALUPE DIRECT SERVICE WORKER, TON S 786.59 Other Chest Pain 06/01/2009 MARIA GUADALUPE DIRECT SERVICE WORKER, TON S 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 OF DRUGS, TOBACCO USE DISORDER 06/01/2009 MARIA GUADALUPE DIRECT SERVICE WORKER, TON S 401.1 HYPERTENSION, BENIGN ESSENTIAL 06/01/2009 MARIA GUADALUPE DIRECT SERVICE WORKER, TON S 786.59 Other Chest Pain 06/01/2009 MARIA GUADALUPE DIRECT SERVICE WORKER, TON S 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 OF DRUGS, TOBACCO USE DISORDER 06/01/2009 MARIA GUADALUPE DIRECT SERVICE WORKER, TON S 401.1 HYPERTENSION, BENIGN ESSENTIAL 06/01/2009 MARIA GUADALUPE DIRECT SERVICE WORKER, TON S 786.59 Other Chest Pain 06/01/2009 MARIA GUADALUPE DIRECT SERVICE WORKER, TON S 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 OF DRUGS, TOBACCO USE DISORDER 06/01/2009 MARIA GUADALUPE DIRECT SERVICE WORKER, TON S 401.1 HYPERTENSION, BENIGN ESSENTIAL 06/01/2009 MARIA GUADALUPE DIRECT SERVICE WORKER, TON S 786.59 Other Chest Pain 06/01/2009 CATHERINE PERALES APRN T 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 OF DRUGS, TOBACCO USE DISORDER 06/01/2009 CATHERINE PERALES APRN T 401.1 HYPERTENSION, BENIGN ESSENTIAL 06/01/2009 DIAZ VAUGHN CATHERINE T 786.59 Other Chest Pain 06/01/2009 MARIA GUADALUPE DIRECT SERVICE WORKER, TON S 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 OF DRUGS, TOBACCO USE DISORDER 06/01/2009 MARIA GUADALUPE DIRECT SERVICE WORKER, TON S 401.1 HYPERTENSION, BENIGN ESSENTIAL 06/01/2009 MARIA GUADALUPE DIRECT SERVICE WORKER, TON S 786.59 Other Chest Pain 06/01/2009 MARIA GUADALUPE DIRECT SERVICE WORKER, TON S 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 OF DRUGS, TOBACCO USE DISORDER 06/01/2009 MARIA GUADALUPE VAUGHN, TON S 401.1 HYPERTENSION, BENIGN ESSENTIAL 06/01/2009 MARIA GUADALUPE DIRECT SERVICE WORKER, TON S 786.59 Other Chest Pain 06/01/2009 MARIA GUADALUPE DIRECT SERVICE WORKER, TON S 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 OF DRUGS, TOBACCO USE DISORDER 06/01/2009 MARIA GUADALUPE DIRECT SERVICE WORKER, TON S 401.1 HYPERTENSION, BENIGN ESSENTIAL 06/01/2009 MARIA GUADALUPE DIRECT SERVICE WORKER, TON S 786.59 Other Chest Pain 06/01/2009 MARIA GUADALUPE DIRECT SERVICE WORKER, TON S 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 OF DRUGS, TOBACCO USE DISORDER 06/01/2009 MARIA GUADALUPE VAUGHN, TON S 401.1 HYPERTENSION, BENIGN ESSENTIAL 06/01/2009 MARIA GUADALUPE DIRECT SERVICE WORKER, TON S 786.59 Other Chest Pain 06/01/2009 VELASQUEZ KAUR PSYD L 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 OF DRUGS, TOBACCO USE DISORDER 06/01/2009 VELASQUEZ KAUR PSYD ANN L 401.1 HYPERTENSION, BENIGN ESSENTIAL 06/01/2009 VELASQUEZ KAUR PSYD ANN L 786.59 Other Chest Pain 06/01/2009 SACHA ROMANO DOA K 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 OF DRUGS, TOBACCO USE DISORDER 06/01/2009 SACHA ROMANO DOA K 401.1 HYPERTENSION, BENIGN ESSENTIAL 06/01/2009 JUAN ANTONIO OTTO JEWELS K 786.59 Other Chest Pain 06/01/2009 VELASQUEZ KAUR PSYD ANN L 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 OF DRUGS, TOBACCO USE DISORDER 06/01/2009 VELASQUEZ KAUR PSYD L 401.1 HYPERTENSION, BENIGN ESSENTIAL 06/01/2009 VELASQUEZ KAUR PSYD ANN L 786.59 Other Chest Pain 06/01/2009 SYMONE POST APRN 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 OF DRUGS, TOBACCO USE DISORDER 06/01/2009 SYMONE POST APRN 401.1 HYPERTENSION, BENIGN ESSENTIAL 06/01/2009 SYMONE POST APRN 786.59 Other Chest Pain 06/01/2009 JEWELS RAMOS APRN 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 OF DRUGS, TOBACCO USE DISORDER 06/01/2009 JEWELS RAMOS APRN 401.1 HYPERTENSION, BENIGN ESSENTIAL 06/01/2009 RICHARD DIRECT SERVICE WORKER, JEWELS 786.59 Other Chest Pain 06/01/2009 RICHARD DIRECT SERVICE WORKER, JEWELS 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 OF DRUGS, TOBACCO USE DISORDER 06/01/2009 RICHARD DIRECT SERVICE WORKER, JEWELS 401.1 HYPERTENSION, BENIGN ESSENTIAL 06/01/2009 RICHARD DIRECT SERVICE WORKER, JEWELS 786.59 Other Chest Pain 06/01/2009 RICHARD DIRECT SERVICE WORKER, JEWELS 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 OF DRUGS, TOBACCO USE DISORDER 06/01/2009 RICHARD DIRECT SERVICE WORKER, JEWELS 401.1 HYPERTENSION, BENIGN ESSENTIAL 06/01/2009 RICHARD DIRECT SERVICE WORKER, JEWELS 786.59 Other Chest Pain 06/18/2009 JEWELS ROMANO DO 787.02 NAUSEA ALONE 06/18/2009 787.02 NAUSEA ALONE 06/18/2009 787.02 NAUSEA ALONE 06/18/2009 MARIA GUADALUPE VAUGHN TON S 787.02 Nausea Alone 06/18/2009 MARJORIE STRONG APRN 787.02 Nausea Alone 06/18/2009 787.02 Nausea Alone 06/18/2009 787.02 Nausea Alone 06/18/2009 787.02 Nausea Alone 06/18/2009 MARIA GUADALUPE VAUGHN, TON S 787.02 Nausea Alone 06/18/2009 MARIA GUADALUPE VAUGHN, TON S 787.02 Nausea Alone 06/18/2009 ISAIAS VALENZUELA MD 787.02 Nausea Alone 06/18/2009 MARIA GUADALUPE VAUGHN, TON S 787.02 Nausea Alone 06/18/2009 MARIA GUADALUPE VAUGHN, TON S 787.02 Nausea Alone 06/18/2009 MARIA GUADALUPE DIRECT SERVICE WORKER, TON S 787.02 Nausea Alone 06/18/2009 MARIA GUADALUPE DIRECT SERVICE WORKER, TON S 787.02 Nausea Alone 06/18/2009 MARIA GUADALUPE DIRECT SERVICE WORKER, TON S 787.02 Nausea Alone 06/18/2009 CATHERINE PERALES APRN 787.02 Nausea Alone 06/18/2009 MARIA GUADALUPE DIRECT SERVICE WORKER, TON S 787.02 Nausea Alone 06/18/2009 MARIA GUADALUPE DIRECT SERVICE WORKER, TON S 787.02 Nausea Alone 06/18/2009 MARIA GUADALUPE VAUGHN TON S 787.02 Nausea Alone 06/18/2009 MARIA GUADALUPE DIRECT SERVICE WORKER, TON S 787.02 Nausea Alone 06/18/2009 VELASQUEZ KAUR PSYD 787.02 Nausea Alone 06/18/2009 JEWELS ROMANO DO 787.02 Nausea Alone 06/18/2009 VELASQUEZ KAUR PSYD L 787.02 Nausea Alone 06/18/2009 POST DIRECT SERVICE WORKERSYMONE 787.02 Nausea Alone 06/18/2009 RICHARD DIRECT SERVICE WORKER, JEWELS 787.02 Nausea Alone 06/18/2009 RICHARD DIRECT SERVICE WORKER, JEWELS 787.02 Nausea Alone 06/18/2009 RICHARD DIRECT SERVICE WORKER, JEWELS 787.02 Nausea Alone 07/25/2009 JEWELS ROMANO DO 493.90 ASTHMA, UNSPECIFIED, UNSPECIFIED 07/25/2009 493.90 ASTHMA, UNSPECIFIED, UNSPECIFIED 07/25/2009 493.90 ASTHMA, UNSPECIFIED, UNSPECIFIED 07/25/2009 MARIA GUADALUPE DIRECT SERVICE WORKER, TON S 493.90 ASTHMA, UNSPECIFIED, UNSPECIFIED 07/25/2009 MARJORIE STRONG APRN 493.90 ASTHMA, UNSPECIFIED, UNSPECIFIED 07/25/2009 493.90 ASTHMA, UNSPECIFIED, UNSPECIFIED 07/25/2009 493.90 ASTHMA, UNSPECIFIED, UNSPECIFIED 07/25/2009 493.90 ASTHMA, UNSPECIFIED, UNSPECIFIED 07/25/2009 MARIA GUADALUPE DIRECT SERVICE WORKER, TON S 493.90 ASTHMA, UNSPECIFIED, UNSPECIFIED 07/25/2009 MARIA GUADALUPE DIRECT SERVICE WORKER, TON S 493.90 ASTHMA, UNSPECIFIED, UNSPECIFIED 07/25/2009 BIANCA SHAH, ISAIAS 493.90 ASTHMA, UNSPECIFIED, UNSPECIFIED 07/25/2009 MARIA GUADALUPE DIRECT SERVICE WORKER, TON S 493.90 ASTHMA, UNSPECIFIED, UNSPECIFIED 07/25/2009 MARIA GUADALUPE DIRECT SERVICE WORKER, TON S 493.90 ASTHMA, UNSPECIFIED, UNSPECIFIED 07/25/2009 MARIA GUADALUPE DIRECT SERVICE WORKER, TON S 493.90 ASTHMA, UNSPECIFIED, UNSPECIFIED 07/25/2009 MARIA GUADALUPE DIRECT SERVICE WORKER, TON S 493.90 ASTHMA, UNSPECIFIED, UNSPECIFIED 07/25/2009 MARIA GUADALUPE DIRECT SERVICE WORKER, TON S 493.90 ASTHMA, UNSPECIFIED, UNSPECIFIED 07/25/2009 CATHERINE PERALES APRN 493.90 ASTHMA, UNSPECIFIED, UNSPECIFIED 07/25/2009 MARIA GUADALUPE DIRECT SERVICE WORKER, TON S 493.90 ASTHMA, UNSPECIFIED, UNSPECIFIED 07/25/2009 MARIA GUADALUPE DIRECT SERVICE WORKER, TON S 493.90 ASTHMA, UNSPECIFIED, UNSPECIFIED 07/25/2009 MARIA GUADALUPE DIRECT SERVICE WORKER, TON S 493.90 ASTHMA, UNSPECIFIED, UNSPECIFIED 07/25/2009 MARIA GUADALUPE DIRECT SERVICE WORKER, TON S 493.90 ASTHMA, UNSPECIFIED, UNSPECIFIED 07/25/2009 VELASQUEZ KAUR PSYD 493.90 ASTHMA, UNSPECIFIED, UNSPECIFIED 07/25/2009 JEWELS ROMANO DO 493.90 ASTHMA, UNSPECIFIED, UNSPECIFIED 07/25/2009 VELASQUEZ KAUR PSYD 493.90 ASTHMA, UNSPECIFIED, UNSPECIFIED 07/25/2009 SYMONE POST APRN 493.90 ASTHMA, UNSPECIFIED, UNSPECIFIED 07/25/2009 RICHARD DIRECT SERVICE WORKER, JEWELS 493.90 ASTHMA, UNSPECIFIED, UNSPECIFIED 07/25/2009 RICHARD DIRECT SERVICE WORKER, JEWELS 493.90 ASTHMA, UNSPECIFIED, UNSPECIFIED 07/25/2009 RICHARD DIRECT SERVICE WORKER, JEWELS 493.90 ASTHMA, UNSPECIFIED, UNSPECIFIED 12/27/2009 JEWELS [...] FAM HX DIABETES MELLITUS 12/27/2009 MARIA GUADALUPE DIRECT SERVICE WORKER, TON S 112.3 Candidiasis, Of Skin And Nails 12/27/2009 MARIA GUADALUPE DIRECT SERVICE WORKER, TON S 780.79 fatigue 12/27/2009 MARIA GUADALUPE DIRECT SERVICE WORKER, TON S V18.0 FAM HX DIABETES MELLITUS [...] FAM HX DIABETES MELLITUS 12/27/2009 MARIA GUADALUPE DIRECT SERVICE WORKER, TON S 112.3 Candidiasis, Of Skin And Nails 12/27/2009 MARIA GUADALUPE DIRECT SERVICE WORKER, TON S 780.79 fatigue 12/27/2009 MARIA GUADALUPE DIRECT SERVICE WORKER, TON S V18.0 FAM HX DIABETES MELLITUS 12/27/2009 MARIA GUADALUPE DIRECT SERVICE WORKER, TON S 112.3 Candidiasis, Of Skin And Nails 12/27/2009 MARIA GUADALUPE CHAUDHARIN, TON S 780.79 fatigue 12/27/2009 MARIA GUADALUPE DIRECT SERVICE WORKER, TON S V18.0 FAM HX DIABETES MELLITUS 12/27/2009 ISAIAS VALENZUELA MD 112.3 Candidiasis, Of Skin And Nails 12/27/2009 ISAIAS VALENZUELA MD 780.79 fatigue 12/27/2009 ISAIAS VALENZUELA MD V18.0 FAM HX DIABETES MELLITUS 12/27/2009 MARIA GUADALUPE DIRECT SERVICE WORKER, TON S 112.3 Candidiasis, Of Skin And Nails 12/27/2009 MARIA GUADALUPE CHAUDHARIN, TON S 780.79 fatigue 12/27/2009 MARIA GUADALUPE DIRECT SERVICE WORKER, TON S V18.0 FAM HX DIABETES MELLITUS 12/27/2009 MARIA GUADALUPE DIRECT SERVICE WORKER, TON S 112.3 Candidiasis, Of Skin And Nails 12/27/2009 MARIA GUADALUPE DIRECT SERVICE WORKER, TON S 780.79 fatigue 12/27/2009 MARIA GUADALUPE DIRECT SERVICE WORKER, TON S V18.0 FAM HX DIABETES MELLITUS 12/27/2009 MARIA GUADALUPE DIRECT SERVICE WORKER, TON S 112.3 Candidiasis, Of Skin And Nails 12/27/2009 MARIA GUADALUPE DIRECT SERVICE WORKER, TON S 780.79 FATIGUE 12/27/2009 MARIA GUADALUPE DIRECT SERVICE WORKER, TON S V18.0 FAM HX DIABETES MELLITUS 12/27/2009 MARIA GUADALUPE DIRECT SERVICE WORKER, TON S 112.3 Candidiasis, Of Skin And Nails 12/27/2009 MARIA GUADALUPE DIRECT SERVICE WORKER, TON S 780.79 FATIGUE 12/27/2009 MARIA GUADALUPE DIRECT SERVICE WORKER, TON S V18.0 FAM HX DIABETES MELLITUS 12/27/2009 MARIA GUADALUPE DIRECT SERVICE WORKER, TON S 112.3 Candidiasis, Of Skin And Nails 12/27/2009 MARIA GUADALUPE DIRECT SERVICE WORKER, TON S 780.79 FATIGUE 12/27/2009 MARIA GUADALUPE DIRECT SERVICE WORKER, TON S V18.0 FAM HX DIABETES MELLITUS 12/27/2009 CATHERINE PERALES APRN 112.3 Candidiasis, Of Skin And Nails 12/27/2009 CATHERINE PERALES APRN 780.79 FATIGUE 12/27/2009 CATHERINE PERALES APRN V18.0 FAM HX DIABETES MELLITUS 12/27/2009 MARIA GUADALUPE DIRECT SERVICE WORKER, TON S 112.3 Candidiasis, Of Skin And Nails 12/27/2009 MARIA GUADALUPE DIRECT SERVICE WORKER, TON S 780.79 FATIGUE 12/27/2009 MARIA GUADALUPE DIRECT SERVICE WORKER, TON S V18.0 FAM HX DIABETES MELLITUS 12/27/2009 MARIA GUADALUPE DIRECT SERVICE WORKER, TON S 112.3 Candidiasis, Of Skin And Nails 12/27/2009 MARIA GUADALUPE DIRECT SERVICE WORKER, TON S 780.79 FATIGUE 12/27/2009 MARIA GUADALUPE DIRECT SERVICE WORKER, TON S V18.0 FAM HX DIABETES MELLITUS 12/27/2009 MARIA GUADALUPE DIRECT SERVICE WORKER, TON S 112.3 Candidiasis, Of Skin And Nails 12/27/2009 MARIA GUADALUPE DIRECT SERVICE WORKER, TON S 780.79 FATIGUE 12/27/2009 MARIA GUADALUPE DIRECT SERVICE WORKER, TON S V18.0 FAM HX DIABETES MELLITUS 12/27/2009 MARIA GUADALUPE DIRECT SERVICE WORKER, TON S 112.3 Candidiasis, Of Skin And Nails 12/27/2009 MARIA GUADALUPE DIRECT SERVICE WORKER, TON S 780.79 FATIGUE 12/27/2009 MARIA GUADALUPE DIRECT SERVICE WORKER, TON S V18.0 FAM HX DIABETES MELLITUS 12/27/2009 VELASQUEZ KAUR PSYD 112.3 Candidiasis, Of Skin And Nails 12/27/2009 VELASQUEZ KAUR PSYD L 780.79 FATIGUE 12/27/2009 VELASQUEZ KAUR PSYD L V18.0 FAM HX DIABETES MELLITUS 12/27/2009 JEWELS ROMANO DO K 112.3 Candidiasis, Of Skin And Nails 12/27/2009 JEWELS ROMANO DO 780.79 FATIGUE 12/27/2009 JEWELS ROMANO DO K V18.0 FAM HX DIABETES MELLITUS 12/27/2009 VELASQUEZ KAUR PSYD L 112.3 Candidiasis, Of Skin And Nails 12/27/2009 VELASQUEZ KAUR PSYD L 780.79 FATIGUE 12/27/2009 VELASQUEZ KAUR PSYD L V18.0 FAM HX DIABETES MELLITUS 12/27/2009 SYMONE POST APRN 112.3 Candidiasis, Of Skin And Nails 12/27/2009 SYMONE POST APRN 780.79 FATIGUE 12/27/2009 SYMONE POST APRN V18.0 FAM HX DIABETES MELLITUS 12/27/2009 RICHARD DIRECT SERVICE WORKER, JEWELS 112.3 Candidiasis, Of Skin And Nails 12/27/2009 RICHARD DIRECT SERVICE WORKER, JEWELS 780.79 FATIGUE 12/27/2009 RICHARD DIRECT SERVICE WORKER, JEWELS V18.0 FAM HX DIABETES MELLITUS 12/27/2009 RICHARD DIRECT SERVICE WORKER, JEWELS 112.3 Candidiasis, Of Skin And Nails 12/27/2009 RICHARD DIRECT SERVICE WORKER, JEWELS 780.79 FATIGUE 12/27/2009 RICHARD DIRECT SERVICE WORKER, JEWELS V18.0 FAM HX DIABETES MELLITUS 12/27/2009 RICHARD DIRECT SERVICE WORKER, JEWELS 112.3 Candidiasis, Of Skin And Nails 12/27/2009 RICHARD DIRECT SERVICE WORKER, JEWELS 780.79 FATIGUE 12/27/2009 RICHARD DIRECT SERVICE WORKER, JEWELS V18.0 FAM HX DIABETES MELLITUS 01/14/2010 [...] DERMATITIS AND RELATED CONDITIONS 01/14/2010 MARIA GUADALUPE DIRECT SERVICE WORKER, TON S 691.8 OTHER ATOPIC DERMATITIS AND RELATED CONDITIONS 01/14/2010 MARIA GUADALUPE DIRECT SERVICE WORKER, TON S 691.8 OTHER ATOPIC DERMATITIS AND RELATED CONDITIONS 01/14/2010 ISAIAS VALENZUELA MD 691.8 OTHER ATOPIC DERMATITIS AND RELATED CONDITIONS 01/14/2010 MARIA GUADALUPE DIRECT SERVICE WORKER, TON S 691.8 OTHER ATOPIC DERMATITIS AND RELATED CONDITIONS 01/14/2010 MARIA GUADALUPE DIRECT SERVICE WORKER, TON S 691.8 OTHER ATOPIC DERMATITIS AND RELATED CONDITIONS 01/14/2010 MARIA GUADALUPE DIRECT SERVICE WORKER, TON S 691.8 OTHER ATOPIC DERMATITIS AND RELATED CONDITIONS 01/14/2010 MARIA GUADALUPE DIRECT SERVICE WORKER, TON S 691.8 OTHER ATOPIC DERMATITIS AND RELATED CONDITIONS 01/14/2010 MARIA GUADALUPE DIRECT SERVICE WORKER, TON S 691.8 OTHER ATOPIC DERMATITIS AND RELATED CONDITIONS 01/14/2010 CATHERINE PERALES APRN 691.8 OTHER ATOPIC DERMATITIS AND RELATED CONDITIONS 01/14/2010 MARIA GUADALUPE DIRECT SERVICE WORKER, TON S 691.8 OTHER ATOPIC DERMATITIS AND RELATED CONDITIONS 01/14/2010 MARIA GUADALUPE DIRECT SERVICE WORKER, TON S 691.8 OTHER ATOPIC DERMATITIS AND RELATED CONDITIONS 01/14/2010 MARIA GUADALUPE DIRECT SERVICE WORKER, TON S 691.8 OTHER ATOPIC DERMATITIS AND RELATED CONDITIONS 01/14/2010 MARIA GUADALUPE DIRECT SERVICE WORKER, TON S 691.8 OTHER ATOPIC DERMATITIS AND RELATED CONDITIONS 01/14/2010 VELASQUEZ KAUR PSYD 691.8 OTHER ATOPIC DERMATITIS AND RELATED CONDITIONS 01/14/2010 JEWELS ROMANO DO 691.8 OTHER ATOPIC DERMATITIS AND RELATED CONDITIONS 01/14/2010 VELASQUEZ KAUR PSYD 691.8 OTHER ATOPIC DERMATITIS AND RELATED CONDITIONS 01/14/2010 SYMONE POST APRN 691.8 OTHER ATOPIC DERMATITIS AND RELATED CONDITIONS 01/14/2010 RICHARDSTEVE FUENTES APRNETTE 691.8 OTHER ATOPIC DERMATITIS AND RELATED CONDITIONS 01/14/2010 RICHARD DIRECT SERVICE WORKER, JEWELS 691.8 OTHER ATOPIC DERMATITIS AND RELATED CONDITIONS 01/14/2010 RICHARD DIRECT SERVICE WORKER, JEWELS 691.8 OTHER ATOPIC DERMATITIS AND RELATED CONDITIONS 02/26/2010 JEWELS ROMANO DO 716.90 ARTHRITIS/ ARTHROPATHY, UNSPECIFIED 02/26/2010 716.90 ARTHRITIS/ ARTHROPATHY, UNSPECIFIED 02/26/2010 716.90 ARTHRITIS/ ARTHROPATHY, UNSPECIFIED 02/26/2010 MARIA GUADALUPE DIRECT SERVICE WORKER, TON S 716.90 ARTHRITIS/ ARTHROPATHY, UNSPECIFIED 02/26/2010 TAE DIRECT SERVICE WORKER, MARJORIE Alfredo 716.90 ARTHRITIS/ ARTHROPATHY, UNSPECIFIED 02/26/2010 716.90 ARTHRITIS/ ARTHROPATHY, UNSPECIFIED 02/26/2010 716.90 ARTHRITIS/ ARTHROPATHY, UNSPECIFIED 02/26/2010 716.90 ARTHRITIS/ ARTHROPATHY, UNSPECIFIED 02/26/2010 MARIA GUADALUPE DIRECT SERVICE WORKER, TON S 716.90 ARTHRITIS/ ARTHROPATHY, UNSPECIFIED 02/26/2010 MARIA GUADALUPE DIRECT SERVICE WORKER, TON S 716.90 ARTHRITIS/ ARTHROPATHY, UNSPECIFIED 02/26/2010 BIANCA SHAH, ISAIAS 716.90 ARTHRITIS/ ARTHROPATHY, UNSPECIFIED 02/26/2010 MARIA GUADALUPE DIRECT SERVICE WORKER, TON S 716.90 ARTHRITIS/ ARTHROPATHY, UNSPECIFIED 02/26/2010 MARIA GUADALUPE DIRECT SERVICE WORKER, TON S 716.90 ARTHRITIS/ ARTHROPATHY, UNSPECIFIED 02/26/2010 MARIA GUADALUPE DIRECT SERVICE WORKER, TON S 716.90 ARTHRITIS/ ARTHROPATHY, UNSPECIFIED 02/26/2010 MARIA GUADALUPE DIRECT SERVICE WORKER, TON S 716.90 ARTHRITIS/ ARTHROPATHY, UNSPECIFIED 02/26/2010 MARIA GUADALUPE DIRECT SERVICE WORKER, TON S 716.90 ARTHRITIS/ ARTHROPATHY, UNSPECIFIED 02/26/2010 DIAZ DIRECT SERVICE WORKERCATHERINE 716.90 ARTHRITIS/ ARTHROPATHY, UNSPECIFIED 02/26/2010 MARIA GUADALUPE DIRECT SERVICE WORKER, TON S 716.90 ARTHRITIS/ ARTHROPATHY, UNSPECIFIED 02/26/2010 MARIA GUADALUPE DIRECT SERVICE WORKER, TON S 716.90 ARTHRITIS/ ARTHROPATHY, UNSPECIFIED 02/26/2010 MARIA GUADALUPE DIRECT SERVICE WORKER, TON S 716.90 ARTHRITIS/ ARTHROPATHY, UNSPECIFIED 02/26/2010 MARIA GUADALUPE DIRECT SERVICE WORKER, TON S 716.90 ARTHRITIS/ ARTHROPATHY, UNSPECIFIED 02/26/2010 VELASQUEZ KAUR PSYD 716.90 ARTHRITIS/ ARTHROPATHY, UNSPECIFIED 02/26/2010 JEWELS ROMANO DO 716.90 ARTHRITIS/ ARTHROPATHY, UNSPECIFIED 02/26/2010 VELASQUEZ KAUR PSYD L 716.90 ARTHRITIS/ ARTHROPATHY, UNSPECIFIED 02/26/2010 POST DIRECT SERVICE WORKERSYMONE Ramos 716.90 ARTHRITIS/ ARTHROPATHY, UNSPECIFIED 02/26/2010 RICHARD DIRECT SERVICE WORKER, JEWELS 716.90 ARTHRITIS/ ARTHROPATHY, UNSPECIFIED 02/26/2010 RICHARD DIRECT SERVICE WORKER, JEWELS 716.90 ARTHRITIS/ ARTHROPATHY, UNSPECIFIED 02/26/2010 RICHARD DIRECT SERVICE WORKER, JEWELS 716.90 ARTHRITIS/ ARTHROPATHY, UNSPECIFIED 03/19/2010 JEWELS ROMANO DO 216.6 BENIGN NEOPLASM OF SKIN OF UPPER [...] SKIN OF LOWER LIMB INCLUDING HIP 03/19/2010 TON LERMA APRN S 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 03/19/2010 TON LERMA APRN S 216.7 BENIGN NEOPLASM OF SKIN OF [...] LOWER LIMB INCLUDING HIP 03/19/2010 MARIA GUADALUPE DIRECT SERVICE WORKER, TON S 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 03/19/2010 MARIA GUADALUPE DIRECT SERVICE WORKER, TON S 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 03/19/2010 MARIA GUADALUPE DIRECT SERVICE WORKER, TON S 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 03/19/2010 MARIA GUADALUPE DIRECT SERVICE WORKER, TON S 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 03/19/2010 ISAIAS VALENZUELA MD 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 03/19/2010 ISAIAS VALENZUELA MD 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 03/19/2010 MARIA GUADALUPE DIRECT SERVICE WORKER, TON S 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 03/19/2010 MARIA GUADALUPE DIRECT SERVICE WORKER, TON S 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 03/19/2010 MARIA GUADALUPE DIRECT SERVICE WORKER, TON S 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 03/19/2010 MARIA GUADALUPE DIRECT SERVICE WORKER, TON S 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 03/19/2010 MARIA GUADALUPE DIRECT SERVICE WORKER, TON S 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 03/19/2010 MARIA GUADALUPE DIRECT SERVICE WORKER, TON S 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 03/19/2010 MARIA GUADALUPE DIRECT SERVICE WORKER, TON S 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 03/19/2010 MARIA GUADALUPE DIRECT SERVICE WORKER, TON S 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 03/19/2010 MARIA GUADALUPE DIRECT SERVICE WORKER, TON S 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 03/19/2010 MARIA GUADALUPE DIRECT SERVICE WORKER, TON S 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 03/19/2010 CATHERINE PERALES APRN 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 03/19/2010 CATHERINE PERALES APRN 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 03/19/2010 MARIA GUADALUPE DIRECT SERVICE WORKER, TON S 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 03/19/2010 MARIA GUADALUPE DIRECT SERVICE WORKER, TON S 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 03/19/2010 MARIA GUADALUPE DIRECT SERVICE WORKER, TON S 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 03/19/2010 MARIA GUADALUPE DIRECT SERVICE WORKER, TON S 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 03/19/2010 MARIA GUADALUPE DIRECT SERVICE WORKER, TON S 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 03/19/2010 MARIA GUADALUPE DIRECT SERVICE WORKER, TON S 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 03/19/2010 MARIA GUADALUPE DIRECT SERVICE WORKER, TON S 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 03/19/2010 MARIA GUADALUPE DIRECT SERVICE WORKER, TON S 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 03/19/2010 VELASQUEZ KAUR PSYD ANN L 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 03/19/2010 VELASQUEZ KAUR PSYD ANN L 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 03/19/2010 JUAN ANTONIO DO JEWELS K 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 03/19/2010 ROMANO DO JEWELS K 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 03/19/2010 VELASQUEZ KAUR PSYD ANN L 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 03/19/2010 VELASQUEZ KAUR PSYD ANN L 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 03/19/2010 SYMONE POST APRN 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 03/19/2010 SYMONE POST APRN 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 03/19/2010 RICHARD DIRECT SERVICE WORKER, JEWELS 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 03/19/2010 RICHARD DIRECT SERVICE WORKER, JEWELS 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 03/19/2010 RICHARD DIRECT SERVICE WORKER, JEWELS 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 03/19/2010 RICHARD DIRECT SERVICE WORKER, JEWELS 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 03/19/2010 RICHARD DIRECT SERVICE WORKER, JEWELS 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 03/19/2010 JEWELS RAMOS APRN 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 03/26/2010 ROMANO DOSACHAA K 729.5 limb pain 03/26/2010 ROMANO JEWELS OTTO K V58.32 Removal Of Sutures 03/26/2010 729.5 limb pain 03/26/2010 V58.32 Removal Of Sutures 03/26/2010 729.5 limb pain 03/26/2010 V58.32 Removal Of Sutures 03/26/2010 MARIA GUADALUPE DIRECT SERVICE WORKER, TON S 729.5 limb pain 03/26/2010 MARIA GUADALUPE DIRECT SERVICE WORKER, TON S V58.32 Removal Of Sutures 03/26/2010 MARJORIE STRONG APRN 729.5 limb pain 03/26/2010 MARJORIE STRONG APRN V58.32 Removal Of Sutures 03/26/2010 729.5 limb pain 03/26/2010 V58.32 Removal Of Sutures 03/26/2010 729.5 limb pain 03/26/2010 V58.32 Removal Of Sutures 03/26/2010 729.5 limb pain 03/26/2010 V58.32 Removal Of Sutures 03/26/2010 MARIA GUADALUPE DIRECT SERVICE WORKER, TON S 729.5 limb pain 03/26/2010 MARIA GUADALUPE DIRECT SERVICE WORKER, TON S V58.32 Removal Of Sutures 03/26/2010 MARIA GUADALUPE DIRECT SERVICE WORKER, TON S 729.5 limb pain 03/26/2010 MARIA GUADALUPE DIRECT SERVICE WORKER, TON S V58.32 Removal Of Sutures 03/26/2010 ISAIAS VALENZUELA MD 729.5 limb pain 03/26/2010 ISAIAS VALENZUELA MD V58.32 Removal Of Sutures 03/26/2010 MARIA GUADALUPE DIRECT SERVICE WORKER, TON S 729.5 limb pain 03/26/2010 MARIA GUADALUPE DIRECT SERVICE WORKER, TON S V58.32 Removal Of Sutures 03/26/2010 MARIA GUADALUPE DIRECT SERVICE WORKER, TON S 729.5 limb pain 03/26/2010 MARIA GUADALUPE DIRECT SERVICE WORKER, TON S V58.32 Removal Of Sutures 03/26/2010 MARIA GUADALUPE DIRECT SERVICE WORKER, TON S 729.5 LIMB PAIN 03/26/2010 MARIA GUADALUPE DIRECT SERVICE WORKER, TON S V58.32 REMOVAL OF SUTURES 03/26/2010 MARIA GUADALUPE DIRECT SERVICE WORKER, TON S 729.5 LIMB PAIN 03/26/2010 MARIA GUADALUPE DIRECT SERVICE WORKER, TON S V58.32 REMOVAL OF SUTURES 03/26/2010 MARIA GUADALUPE DIRECT SERVICE WORKER, TON S 729.5 LIMB PAIN 03/26/2010 MARIA GUADALUPE DIRECT SERVICE WORKER, TON S V58.32 REMOVAL OF SUTURES 03/26/2010 DIAZ DIRECT SERVICE WORKERCATHERINE T 729.5 LIMB PAIN 03/26/2010 DIAZ DIRECT SERVICE WORKER, CATHERINE T V58.32 REMOVAL OF SUTURES 03/26/2010 MARIA GUADALUPE DIRECT SERVICE WORKER, TON S 729.5 LIMB PAIN 03/26/2010 MARIA GUADALUPE DIRECT SERVICE WORKER, TON S V58.32 REMOVAL OF SUTURES 03/26/2010 MARIA GUADALUPE DIRECT SERVICE WORKER, TON S 729.5 LIMB PAIN 03/26/2010 MARIA GUADALUPE DIRECT SERVICE WORKER, TON S V58.32 REMOVAL OF SUTURES 03/26/2010 MARIA GUADALUPE DIRECT SERVICE WORKER, TON S 729.5 LIMB PAIN 03/26/2010 MARIA GUADALUPE DIRECT SERVICE WORKER, TON S V58.32 REMOVAL OF SUTURES 03/26/2010 MARIA GUADALUPE DIRECT SERVICE WORKER, TON S 729.5 LIMB PAIN 03/26/2010 MARIA GUADALUPE DIRECT SERVICE WORKER, TON S V58.32 REMOVAL OF SUTURES 03/26/2010 VELASQUEZ KAUR PSYD 729.5 LIMB PAIN 03/26/2010 VELASQUEZ KAUR PSYD L V58.32 REMOVAL OF SUTURES 03/26/2010 JEWELS ROMANO DO 729.5 LIMB PAIN 03/26/2010 JEWELS ROMANO DO V58.32 REMOVAL OF SUTURES 03/26/2010 VELASQUEZ KAUR PSYD 729.5 LIMB PAIN 03/26/2010 VELASQUEZ KAUR PSYD L V58.32 REMOVAL OF SUTURES 03/26/2010 SYMONE POST APRN 729.5 LIMB PAIN 03/26/2010 SYMONE POST APRN V58.32 REMOVAL OF SUTURES 03/26/2010 RICHARD JEWELS VAUGHN 729.5 LIMB PAIN 03/26/2010 RICHARD JEWELS VAUGHN V58.32 REMOVAL OF SUTURES 03/26/2010 JEWELS RAMOS APRN 729.5 LIMB PAIN 03/26/2010 RICHARDJEWELS FUENTES APRN V58.32 REMOVAL OF SUTURES 03/26/2010 STEVE RAMOS APRNETTE 729.5 LIMB PAIN 03/26/2010 JEWELS RAMOS APRN V58.32 REMOVAL OF SUTURES 06/26/2010 JEWELS ROMANO DO K 386.11 VERTIGO- BENIGN PAROXYSMAL POSITIONAL 06/26/2010 JEWELS ROMANO DO K 787.91 DIARRHEA 06/26/2010 JEWELS ROMANO DO K 789.04 ABDOMINAL PAIN LEFT LOWER QUADRANT 06/26/2010 386.11 VERTIGO- BENIGN PAROXYSMAL POSITIONAL 06/26/2010 787.91 DIARRHEA 06/26/2010 789.04 ABDOMINAL PAIN LEFT LOWER QUADRANT 06/26/2010 386.11 VERTIGO- BENIGN PAROXYSMAL POSITIONAL 06/26/2010 787.91 DIARRHEA 06/26/2010 789.04 ABDOMINAL PAIN LEFT LOWER QUADRANT 06/26/2010 TON LERMA APRN S 386.11 VERTIGO- BENIGN PAROXYSMAL POSITIONAL 06/26/2010 OTN LERMA APRN S 787.91 DIARRHEA 06/26/2010 TON [...] TON LERMA APRN S 787.91 DIARRHEA 06/26/2010 MARIA GUADALUPE DIRECT SERVICE WORKER, TON S 789.04 ABDOMINAL PAIN LEFT LOWER QUADRANT 06/26/2010 MARIA GUADALUPE DIRECT SERVICE WORKER, TON S 386.11 VERTIGO- BENIGN PAROXYSMAL POSITIONAL 06/26/2010 MARIA GUADALUPE DIRECT SERVICE WORKER, TON S 787.91 DIARRHEA 06/26/2010 MARIA GUADALUPE DIRECT SERVICE WORKER, TON S 789.04 ABDOMINAL PAIN LEFT LOWER QUADRANT 06/26/2010 ISAIAS VALENZUELA MD 386.11 VERTIGO- BENIGN PAROXYSMAL POSITIONAL 06/26/2010 ISAIAS VALENZUELA MD 787.91 DIARRHEA 06/26/2010 ISAIAS VALENZUELA MD 789.04 ABDOMINAL PAIN LEFT LOWER QUADRANT 06/26/2010 MARIA GUADALUPE CHAUDHARIN, TON S 386.11 VERTIGO- BENIGN PAROXYSMAL POSITIONAL 06/26/2010 MARIA GUADALUPE DIRECT SERVICE WORKER, TON S 787.91 DIARRHEA 06/26/2010 MARIA GUADALUPE DIRECT SERVICE WORKER, TON S 789.04 ABDOMINAL PAIN LEFT LOWER QUADRANT 06/26/2010 MARIA GUADALUPE CHAUDHARIN, TON S 386.11 VERTIGO- BENIGN PAROXYSMAL POSITIONAL 06/26/2010 MARIA GUADALUPE DIRECT SERVICE WORKER, TON S 787.91 DIARRHEA 06/26/2010 MARIA GUADALUPE DIRECT SERVICE WORKER, TON S 789.04 ABDOMINAL PAIN LEFT LOWER QUADRANT 06/26/2010 MARIA GUADALUPE DIRECT SERVICE WORKER, TON S 386.11 VERTIGO- BENIGN PAROXYSMAL POSITIONAL 06/26/2010 MARIA GUADALUPE DIRECT SERVICE WORKER, TON S 787.91 DIARRHEA 06/26/2010 MARIA GUADALUPE DIRECT SERVICE WORKER, TON S 789.04 ABDOMINAL PAIN LEFT LOWER QUADRANT 06/26/2010 MARIA GUADALUPE CHAUDHARIN, TON S 386.11 VERTIGO- BENIGN PAROXYSMAL POSITIONAL 06/26/2010 MARIA GUADALUPE DIRECT SERVICE WORKER, TON S 787.91 DIARRHEA 06/26/2010 MARIA GUADALUPE DIRECT SERVICE WORKER, TON S 789.04 ABDOMINAL PAIN LEFT LOWER QUADRANT 06/26/2010 MARIA GUADALUPE DIRECT SERVICE WORKER, TON S 386.11 VERTIGO- BENIGN PAROXYSMAL POSITIONAL 06/26/2010 MARIA GUADALUPE DIRECT SERVICE WORKER, TON S 787.91 DIARRHEA 06/26/2010 MARIA GUADALUPE DIRECT SERVICE WORKER, TON S 789.04 ABDOMINAL PAIN LEFT LOWER QUADRANT 06/26/2010 CATHERINE PERALES APRN 386.11 VERTIGO- BENIGN PAROXYSMAL POSITIONAL 06/26/2010 DIAZ DIRECT SERVICE WORKERCATHERINE Ramos T 787.91 DIARRHEA 06/26/2010 DIAZ CHAUDHARIN, CATHERNIE T 789.04 ABDOMINAL PAIN LEFT LOWER QUADRANT 06/26/2010 MARIA GUADALUPE DIRECT SERVICE WORKER, TON S 386.11 VERTIGO- BENIGN PAROXYSMAL POSITIONAL 06/26/2010 MARIA GUADALUPE DIRECT SERVICE WORKER, TON S 787.91 DIARRHEA 06/26/2010 MARIA GUADALUPE DIRECT SERVICE WORKER, TON S 789.04 ABDOMINAL PAIN LEFT LOWER QUADRANT 06/26/2010 MARIA GUADALUPE DIRECT SERVICE WORKER, TON S 386.11 VERTIGO- BENIGN PAROXYSMAL POSITIONAL 06/26/2010 MARIA GUADALUPE DIRECT SERVICE WORKER, TON S 787.91 DIARRHEA 06/26/2010 MARIA GUADALUPE CHAUDHARIN, TON S 789.04 ABDOMINAL PAIN LEFT LOWER QUADRANT 06/26/2010 MARIA GUADALUPE DIRECT SERVICE WORKER, TON S 386.11 VERTIGO- BENIGN PAROXYSMAL POSITIONAL 06/26/2010 MARIA GUADALUPEGARY CHAUDHARIN, TON S 787.91 DIARRHEA 06/26/2010 MARIA GUADALUPE DIRECT SERVICE WORKER, TON S 789.04 ABDOMINAL PAIN LEFT LOWER QUADRANT 06/26/2010 MARIA GUADALUPE DIRECT SERVICE WORKER, TON S 386.11 VERTIGO- BENIGN PAROXYSMAL POSITIONAL 06/26/2010 MARIA GUADALUPE DIRECT SERVICE WORKER, TON S 787.91 DIARRHEA 06/26/2010 MARIA GUADALUPEGARY CHAUDHARIN, TON S 789.04 ABDOMINAL PAIN LEFT LOWER QUADRANT 06/26/2010 VELASQUEZ KAUR PSYD L 386.11 VERTIGO- BENIGN PAROXYSMAL POSITIONAL 06/26/2010 VELASQUEZ KAUR PSYD L 787.91 DIARRHEA 06/26/2010 VELASQUEZ KAUR PSYD L 789.04 ABDOMINAL PAIN LEFT LOWER QUADRANT 06/26/2010 ROMANO DO JEWELS K 386.11 VERTIGO- BENIGN PAROXYSMAL POSITIONAL 06/26/2010 ROMANO DO, JEWELS K 787.91 DIARRHEA 06/26/2010 ROMANO DO, JEWELS K 789.04 ABDOMINAL PAIN LEFT LOWER QUADRANT 06/26/2010 VELASQUEZ KUAR PSYD ANN L 386.11 VERTIGO- BENIGN PAROXYSMAL POSITIONAL 06/26/2010 VELASQUEZ KAUR PSYD ANN L 787.91 DIARRHEA 06/26/2010 VELASQUEZ KAUR PSYD L 789.04 ABDOMINAL PAIN LEFT LOWER QUADRANT 06/26/2010 SYMONE POST APRN 386.11 VERTIGO- BENIGN PAROXYSMAL POSITIONAL 06/26/2010 SYMONE POST APRN 787.91 DIARRHEA 06/26/2010 SYMONE POST APRN 789.04 ABDOMINAL PAIN LEFT LOWER QUADRANT 06/26/2010 RICHARD DIRECT SERVICE WORKER, JEWELS 386.11 VERTIGO- BENIGN PAROXYSMAL POSITIONAL 06/26/2010 RICHARD DIRECT SERVICE WORKER, JEWELS 787.91 DIARRHEA 06/26/2010 RICHARD DIRECT SERVICE WORKER, JEWELS 789.04 ABDOMINAL PAIN LEFT LOWER QUADRANT 06/26/2010 RICHARD DIRECT SERVICE WORKER, JEWELS 386.11 VERTIGO- BENIGN PAROXYSMAL POSITIONAL 06/26/2010 RICHARD DIRECT SERVICE WORKER, JEWELS 787.91 DIARRHEA 06/26/2010 RICHARD DIRECT SERVICE WORKER, JEWELS 789.04 ABDOMINAL PAIN LEFT LOWER QUADRANT 06/26/2010 RICHARD DIRECT SERVICE WORKER, JEWELS 386.11 VERTIGO- BENIGN PAROXYSMAL POSITIONAL 06/26/2010 RICHARD DIRECT SERVICE WORKER, JEWELS 787.91 DIARRHEA 06/26/2010 RICHARD DIRECT SERVICE WORKER, JEWELS 789.04 ABDOMINAL PAIN LEFT LOWER QUADRANT 07/01/2010 JEWELS ROMANO DO 386.30 LABYRINTHITIS UNSPECIFIED 07/01/2010 386.30 LABYRINTHITIS UNSPECIFIED 07/01/2010 386.30 LABYRINTHITIS UNSPECIFIED 07/01/2010 TON LERMA APRN S 386.30 LABYRINTHITIS UNSPECIFIED 07/01/2010 MARJORIE STRONG APRN 386.30 LABYRINTHITIS UNSPECIFIED 07/01/2010 386.30 LABYRINTHITIS UNSPECIFIED 07/01/2010 386.30 LABYRINTHITIS UNSPECIFIED 07/01/2010 386.30 LABYRINTHITIS UNSPECIFIED 07/01/2010 TON LERMA APRN S 386.30 LABYRINTHITIS UNSPECIFIED 07/01/2010 TON LERMA APRN S 386.30 LABYRINTHITIS UNSPECIFIED 07/01/2010 ISAIAS VALENZUELA MD 386.30 LABYRINTHITIS UNSPECIFIED 07/01/2010 TON LERMA APRN S 386.30 LABYRINTHITIS UNSPECIFIED 07/01/2010 TON LERMA APRN S 386.30 LABYRINTHITIS UNSPECIFIED 07/01/2010 MARIA GUADALUPE DIRECT SERVICE WORKER, TON S 386.30 LABYRINTHITIS UNSPECIFIED 07/01/2010 MARIA GUADALUPE DIRECT SERVICE WORKER, TON S 386.30 LABYRINTHITIS UNSPECIFIED 07/01/2010 MARIA GUADALUPE DIRECT SERVICE WORKER, TON S 386.30 LABYRINTHITIS UNSPECIFIED 07/01/2010 CATHERINE PERALES APRN 386.30 LABYRINTHITIS UNSPECIFIED 07/01/2010 MARIA GUADALUPE DIRECT SERVICE WORKER, TON S 386.30 LABYRINTHITIS UNSPECIFIED 07/01/2010 MARIA GUADALUPE DIRECT SERVICE WORKER, TON S 386.30 LABYRINTHITIS UNSPECIFIED 07/01/2010 MARIA GUADALUPE DIRECT SERVICE WORKER, TON S 386.30 LABYRINTHITIS UNSPECIFIED 07/01/2010 MARIA GUADALUPE DIRECT SERVICE WORKER, TON S 386.30 LABYRINTHITIS UNSPECIFIED 07/01/2010 VELASQUEZ KAUR PSYD 386.30 LABYRINTHITIS UNSPECIFIED 07/01/2010 JEWELS ROMANO DO K 386.30 LABYRINTHITIS UNSPECIFIED 07/01/2010 VELASQUEZ KAUR PSYD 386.30 LABYRINTHITIS UNSPECIFIED 07/01/2010 SYMONE POST APRN 386.30 LABYRINTHITIS UNSPECIFIED 07/01/2010 RICHARD DIRECT SERVICE WORKER, JEWELS 386.30 LABYRINTHITIS UNSPECIFIED 07/01/2010 RICHARD DIRECT SERVICE WORKER, JEWELS 386.30 LABYRINTHITIS UNSPECIFIED 07/01/2010 RICHARD DIRECT SERVICE WORKER, JEWELS 386.30 LABYRINTHITIS UNSPECIFIED 09/13/2010 JEWELS ROMANO DO K 698.9 PRURITUS NOS 09/13/2010 JEWELS ROMANO DO K 782.1 RASH 09/13/2010 JEWELS ROMANO DO K 786.05 SHORTNESS OF BREATH 09/13/2010 698.9 PRURITUS NOS 09/13/2010 782.1 RASH 09/13/2010 786.05 SHORTNESS OF BREATH 09/13/2010 698.9 PRURITUS NOS 09/13/2010 782.1 RASH 09/13/2010 786.05 SHORTNESS OF BREATH 09/13/2010 MARIA GUADALUPE VAUGHN, TON S 698.9 PRURITUS NOS 09/13/2010 MARIA GUADALUPE DIRECT SERVICE WORKER, TON S 782.1 RASH 09/13/2010 MARIA GUADALUPE DIRECT SERVICE WORKER, TON S 786.05 SHORTNESS OF BREATH 09/13/2010 STRONG DIRECT SERVICE WORKERMARJORIE M 698.9 PRURITUS NOS 09/13/2010 TAE CHAUDHARINMARJORIE M 782.1 RASH 09/13/2010 TAE CHAUDHARIN, MARJORIE Alfredo 786.05 SHORTNESS OF BREATH 09/13/2010 698.9 PRURITUS NOS 09/13/2010 782.1 RASH 09/13/2010 786.05 SHORTNESS OF BREATH 09/13/2010 698.9 PRURITUS NOS 09/13/2010 782.1 RASH 09/13/2010 786.05 SHORTNESS OF BREATH 09/13/2010 698.9 PRURITUS NOS 09/13/2010 782.1 RASH 09/13/2010 786.05 SHORTNESS OF BREATH 09/13/2010 MARIA GUADALUPE DIRECT SERVICE WORKER, TON S 698.9 PRURITUS NOS 09/13/2010 MARIA GUADALUPE DIRECT SERVICE WORKER, TON S 782.1 RASH 09/13/2010 MARIA GUADALUPE DIRECT SERVICE WORKER, TON S 786.05 SHORTNESS OF BREATH 09/13/2010 MARIA GUADALUPE DIRECT SERVICE WORKER, TON S 698.9 PRURITUS NOS 09/13/2010 MARIA GUADALUPE DIRECT SERVICE WORKER, TON S 782.1 RASH 09/13/2010 MARIA GUADALUPE DIRECT SERVICE WORKER, TON S 786.05 SHORTNESS OF BREATH 09/13/2010 ISAIAS VALENZUELA MD 698.9 PRURITUS NOS 09/13/2010 ISAIAS VALENZUELA MD 782.1 RASH 09/13/2010 ISAIAS VALENZUELA MD 786.05 SHORTNESS OF BREATH 09/13/2010 MARIA GUADALUPE DIRECT SERVICE WORKER, TON S 698.9 PRURITUS NOS 09/13/2010 MARIA GUADALUPE DIRECT SERVICE WORKER, TON S 782.1 RASH 09/13/2010 MARIA GUADALUPE DIRECT SERVICE WORKER, TON S 786.05 SHORTNESS OF BREATH 09/13/2010 MARIA GUADALUPE DIRECT SERVICE WORKER, TON S 698.9 PRURITUS NOS 09/13/2010 MARIA GUADALUPE DIRECT SERVICE WORKER, TON S 782.1 RASH 09/13/2010 MARIA GUADALUPE DIRECT SERVICE WORKER, TON S 786.05 SHORTNESS OF BREATH 09/13/2010 MARIA GUADALUPE DIRECT SERVICE WORKER, TON S 698.9 PRURITUS NOS 09/13/2010 MARIA GUADALUPE DIRECT SERVICE WORKER, TON S 782.1 RASH 09/13/2010 MARIA GUADALUPE DIRECT SERVICE WORKER, TON S 786.05 SHORTNESS OF BREATH 09/13/2010 MARIA GUADALUPE DIRECT SERVICE WORKER, TON S 698.9 PRURITUS NOS 09/13/2010 MARIA GUADALUPE DIRECT SERVICE WORKER, TON S 782.1 RASH 09/13/2010 MARIA GUADALUPE DIRECT SERVICE WORKER, TON S 786.05 SHORTNESS OF BREATH 09/13/2010 MARIA GUADALUPE DIRECT SERVICE WORKER, TON S 698.9 PRURITUS NOS 09/13/2010 MARIA GUADALUPE DIRECT SERVICE WORKER, TON S 782.1 RASH 09/13/2010 MARIA GUADALUPE DIRECT SERVICE WORKER, TON S 786.05 SHORTNESS OF BREATH 09/13/2010 DIAZ DIRECT SERVICE WORKER, CATHERINE T 698.9 PRURITUS NOS 09/13/2010 DIAZ DIRECT SERVICE WORKER, CATHERINE T 782.1 RASH 09/13/2010 DIAZ DIRECT SERVICE WORKER, CATHERINE T 786.05 SHORTNESS OF BREATH 09/13/2010 MARIA GUADALUPE DIRECT SERVICE WORKER, TON S 698.9 PRURITUS NOS 09/13/2010 MARIA GUADALUPE DIRECT SERVICE WORKER, TON S 782.1 RASH 09/13/2010 MARIA GUADALUPE DIRECT SERVICE WORKER, TON S 786.05 SHORTNESS OF BREATH 09/13/2010 MARIA GUADALUPE DIRECT SERVICE WORKER, TON S 698.9 PRURITUS NOS 09/13/2010 MARIA GUADALUPE DIRECT SERVICE WORKER, TON S 782.1 RASH 09/13/2010 MARIA GUADALUPE DIRECT SERVICE WORKER, TON S 786.05 SHORTNESS OF BREATH 09/13/2010 MARIA GUADALUPE DIRECT SERVICE WORKER, TON S 698.9 PRURITUS NOS 09/13/2010 MARIA GUADALUPE DIRECT SERVICE WORKER, TON S 782.1 RASH 09/13/2010 MARIA GUADALUPE DIRECT SERVICE WORKER, TON S 786.05 SHORTNESS OF BREATH 09/13/2010 MARIA GUADALUPE DIRECT SERVICE WORKER, TON S 698.9 PRURITUS NOS 09/13/2010 MARIA GUADALUPE DIRECT SERVICE WORKER, TON S 782.1 RASH 09/13/2010 MARIA GUADALUPE DIRECT SERVICE WORKER, TON S 786.05 SHORTNESS OF BREATH 09/13/2010 VELASQUEZ KAUR PSYD ANN L 698.9 PRURITUS NOS 09/13/2010 VELASQUEZ KAUR PSYD ANN L 782.1 RASH 09/13/2010 VELASQUEZ KAUR PSYD L 786.05 SHORTNESS OF BREATH 09/13/2010 ROMANO DO, JEWELS K 698.9 PRURITUS NOS 09/13/2010 ROMANO DO, JEWELS K 782.1 RASH 09/13/2010 ROMANO DO, JEWELS K 786.05 SHORTNESS OF BREATH 09/13/2010 VELASQUEZ KAUR PSYD ANN L 698.9 PRURITUS NOS 09/13/2010 VELASQUEZ KAUR PSYD L 782.1 RASH 09/13/2010 VELASQUEZ KAUR PSYD ANN L 786.05 SHORTNESS OF BREATH 09/13/2010 POST DIRECT SERVICE WORKERMAUREENON D 698.9 PRURITUS NOS 09/13/2010 POST DIRECT SERVICE WORKER SYMONE D 782.1 RASH 09/13/2010 POST DIRECT SERVICE WORKERMAUREEN RamosON Bejnie 786.05 SHORTNESS OF BREATH 09/13/2010 RICHARD DIRECT SERVICE WORKER, JEWELS 698.9 PRURITUS NOS 09/13/2010 RICHADR DIRECT SERVICE WORKER, JEWELS 782.1 RASH 09/13/2010 RICHARD DIRECT SERVICE WORKER, JEWELS 786.05 SHORTNESS OF BREATH 09/13/2010 RICHARD DIRECT SERVICE WORKER, JEWELS 698.9 PRURITUS NOS 09/13/2010 RICHARD DIRECT SERVICE WORKER, JEWELS 782.1 RASH 09/13/2010 RICHARD DIRECT SERVICE WORKER, JEWELS 786.05 SHORTNESS OF BREATH 09/13/2010 RICHARD DIRECT SERVICE WORKER, JEWELS 698.9 PRURITUS NOS 09/13/2010 RICHARD DIRECT SERVICE WORKER, JEWELS 782.1 RASH 09/13/2010 RICHARD DIRECT SERVICE WORKER, JEWELS 786.05 SHORTNESS OF BREATH 02/10/2011 ROMANO DO JEWELS K 564.1 IRRITABLE BOWEL SYNDROME 02/10/2011 JUAN ANTONIO OTTO, JEWELS K 578.1 BLOOD IN STOOL 02/10/2011 JUAN ANTONIO OTTO, JEWELS K 789.07 ABDOMINAL PAIN GENERALIZED 02/10/2011 JUAN ANTONIO OTTO, JEWELS K V04.81 FLU DX (3 YRS AND ABOVE, IM) 02/10/2011 564.1 IRRITABLE BOWEL SYNDROME 02/10/2011 578.1 BLOOD IN STOOL 02/10/2011 789.07 ABDOMINAL PAIN GENERALIZED 02/10/2011 V04.81 FLU DX (3 YRS AND ABOVE, IM) 02/10/2011 564.1 IRRITABLE BOWEL SYNDROME 02/10/2011 578.1 BLOOD IN STOOL 02/10/2011 789.07 ABDOMINAL PAIN GENERALIZED 02/10/2011 V04.81 FLU DX (3 YRS AND ABOVE, IM) 02/10/2011 QUINTEN LERMA APRNNDA S 564.1 IRRITABLE BOWEL SYNDROME 02/10/2011 MARIA GUADALUPE DIRECT SERVICE WORKERQUINTEN RamosNDA S 578.1 BLOOD IN STOOL 02/10/2011 BRITNEY LERMA APRNA S 789.07 ABDOMINAL PAIN GENERALIZED 02/10/2011 BRITNEY LERMA APRNA S V04.81 FLU DX (3 YRS AND ABOVE, IM) 02/10/2011 TAE CHAUDHARINMARJORIE M 564.1 IRRITABLE BOWEL SYNDROME 02/10/2011 TAE CHAUDHARINMARJORIE M 578.1 BLOOD IN STOOL 02/10/2011 MARJORIE STRONG APRN 789.07 ABDOMINAL PAIN GENERALIZED 02/10/2011 MARJORIE STRONG [...] DX (3 YRS AND ABOVE, IM) 02/10/2011 QUINTEN LERMA APRNNDA S 564.1 IRRITABLE BOWEL SYNDROME 02/10/2011 QUINTEN LERMA APRNNDA S 578.1 BLOOD IN STOOL 02/10/2011 QUINTEN LERMA APRNNDA S 789.07 ABDOMINAL PAIN GENERALIZED 02/10/2011 QUINTEN LERMA APRNNDA S V04.81 FLU DX (3 YRS AND ABOVE, IM) 02/10/2011 MARIA GUADALUPE DIRECT SERVICE WORKER, TON S 564.1 IRRITABLE BOWEL SYNDROME 02/10/2011 MARIA GUADALUPE DIRECT SERVICE WORKER, TON S 578.1 BLOOD IN STOOL 02/10/2011 MARIA GUADALUPE DIRECT SERVICE WORKER, TON S 789.07 ABDOMINAL PAIN GENERALIZED 02/10/2011 MARIA GUADALUPE DIRECT SERVICE WORKER, TON S V04.81 FLU DX (3 YRS AND ABOVE, IM) 02/10/2011 ISAIAS VALENZUELA MD 564.1 IRRITABLE BOWEL SYNDROME 02/10/2011 ISAIAS VALENZUELA MD 578.1 BLOOD IN STOOL 02/10/2011 ISAIAS VALENZUELA MD 789.07 ABDOMINAL PAIN GENERALIZED 02/10/2011 ISAIAS VALENZUELA MD V04.81 FLU DX (3 YRS AND ABOVE, IM) 02/10/2011 MARIA GUADALUPE DIRECT SERVICE WORKER, TON S 564.1 IRRITABLE BOWEL SYNDROME 02/10/2011 MARIA GUADALUPE DIRECT SERVICE WORKER, TON S 578.1 BLOOD IN STOOL 02/10/2011 MARIA GUADALUPE CHAUDHARIN, TON S 789.07 ABDOMINAL PAIN GENERALIZED 02/10/2011 MARIA GUADALUPE DIRECT SERVICE WORKER, TON S V04.81 FLU DX (3 YRS AND ABOVE, IM) 02/10/2011 MARIA GUADALUPE DIRECT SERVICE WORKER, TON S 564.1 IRRITABLE BOWEL SYNDROME 02/10/2011 MARIA GUADALUPE DIRECT SERVICE WORKER, TON S 578.1 BLOOD IN STOOL 02/10/2011 MARIA GUADALUPE DIRECT SERVICE WORKER, TON S 789.07 ABDOMINAL PAIN GENERALIZED 02/10/2011 MARIA GUADALUPE DIRECT SERVICE WORKER, TON S V04.81 FLU DX (3 YRS AND ABOVE, IM) 02/10/2011 MARIA GUADALUPE DIRECT SERVICE WORKER, TON S 564.1 IRRITABLE BOWEL SYNDROME 02/10/2011 MARIA GUADALUPE DIRECT SERVICE WORKER, TON S 578.1 BLOOD IN STOOL 02/10/2011 MARIA GUADALUPE DIRECT SERVICE WORKER, TON S 789.07 ABDOMINAL PAIN GENERALIZED 02/10/2011 MARIA GUADALUPE DIRECT SERVICE WORKER, TON S V04.81 FLU DX (3 YRS AND ABOVE, IM) 02/10/2011 MARIA GUADALUPE DIRECT SERVICE WORKER, TON S 564.1 IRRITABLE BOWEL SYNDROME 02/10/2011 MARIA GUADALUPE DIRECT SERVICE WORKER, TON S 578.1 BLOOD IN STOOL 02/10/2011 MARIA GUADALUPE DIRECT SERVICE WORKER, TON S 789.07 ABDOMINAL PAIN GENERALIZED 02/10/2011 MARIA GUADALUPE DIRECT SERVICE WORKER, TON S V04.81 FLU DX (3 YRS AND ABOVE, IM) 02/10/2011 MARIA GUADALUPE DIRECT SERVICE WORKER, TON S 564.1 IRRITABLE BOWEL SYNDROME 02/10/2011 MARIA GUADALUPE DIRECT SERVICE WORKER, TON S 578.1 BLOOD IN STOOL 02/10/2011 MARIA GUADALUPE DIRECT SERVICE WORKER, TON S 789.07 ABDOMINAL PAIN GENERALIZED 02/10/2011 MARIA GUADALUPE DIRECT SERVICE WORKER, TON S V04.81 FLU DX (3 YRS AND ABOVE, IM) 02/10/2011 DIAZ CHAUDHARICATHERINE Ramos T 564.1 IRRITABLE BOWEL SYNDROME 02/10/2011 DIAZ CHAUDHARICATHERINE Ramos T 578.1 BLOOD IN STOOL 02/10/2011 DIAZ CHAUDHARINCATHERINE T 789.07 ABDOMINAL PAIN GENERALIZED 02/10/2011 DIAZ CHAUDHARICATHERINE Ramos T V04.81 FLU DX (3 YRS AND ABOVE, IM) 02/10/2011 MARIA GUADALUPEGARY CHAUDHARIN, TON S 564.1 IRRITABLE BOWEL SYNDROME 02/10/2011 MARIA GUADALUPE DIRECT SERVICE WORKER, TON S 578.1 BLOOD IN STOOL 02/10/2011 MARIA GUADALUPEGARY CHAUDHARIN, TON S 789.07 ABDOMINAL PAIN GENERALIZED 02/10/2011 MARIA GUADALUPE DIRECT SERVICE WORKER, TON S V04.81 FLU DX (3 YRS AND ABOVE, IM) 02/10/2011 MARIA GUADALUPE DIRECT SERVICE WORKER, TON S 564.1 IRRITABLE BOWEL SYNDROME 02/10/2011 MARIA GUADALUPE DIRECT SERVICE WORKER, TON S 578.1 BLOOD IN STOOL 02/10/2011 MARIA GUADALUPE DIRECT SERVICE WORKER, TON S 789.07 ABDOMINAL PAIN GENERALIZED 02/10/2011 MARIA GUADALUPE DIRECT SERVICE WORKER, TON S V04.81 FLU DX (3 YRS AND ABOVE, IM) 02/10/2011 MARIA GUADALUPE DIRECT SERVICE WORKER, TON S 564.1 IRRITABLE BOWEL SYNDROME 02/10/2011 MARIA GUADALUPE DIRECT SERVICE WORKER, TON S 578.1 BLOOD IN STOOL 02/10/2011 MARIA GUADALUPE DIRECT SERVICE WORKER, TON S 789.07 ABDOMINAL PAIN GENERALIZED 02/10/2011 MARIA GUADALUPE DIRECT SERVICE WORKER, TON S V04.81 FLU DX (3 YRS AND ABOVE, IM) 02/10/2011 MARIA GUADALUPE DIRECT SERVICE WORKER, TON S 564.1 IRRITABLE BOWEL SYNDROME 02/10/2011 MARIA GUADALUPE DIRECT SERVICE WORKER, TON S 578.1 BLOOD IN STOOL 02/10/2011 MARIA GUADALUPE DIRECT SERVICE WORKER, TON S 789.07 ABDOMINAL PAIN GENERALIZED 02/10/2011 MARIA GUADALUPE DIRECT SERVICE WORKER, TON S V04.81 FLU DX (3 YRS AND ABOVE, IM) 02/10/2011 VELASQUEZ KAUR PSYD L 564.1 IRRITABLE BOWEL SYNDROME 02/10/2011 VELASQUEZ KAUR PSYD L 578.1 BLOOD IN STOOL 02/10/2011 VELASQUEZ KAUR PSYD ANN L 789.07 ABDOMINAL PAIN GENERALIZED 02/10/2011 VELASQUEZ KAUR PSYD L V04.81 FLU DX (3 YRS AND ABOVE, IM) 02/10/2011 ROMANO SACHA OTTOA K 564.1 IRRITABLE BOWEL SYNDROME 02/10/2011 ROMANO DOSACHAA K 578.1 BLOOD IN STOOL 02/10/2011 ROMANO [...] JEWELS 564.1 IRRITABLE BOWEL SYNDROME 02/10/2011 RICHARD DIRECT SERVICE WORKER, JEWELS 578.1 BLOOD IN STOOL 02/10/2011 RICHARD DIRECT SERVICE WORKER, JEWELS 789.07 ABDOMINAL PAIN GENERALIZED 02/10/2011 RICHARD DIRECT SERVICE WORKER, JEWELS V04.81 FLU DX (3 YRS AND ABOVE, IM) 02/10/2011 RICHARD DIRECT SERVICE WORKER, JEWELS 564.1 IRRITABLE BOWEL SYNDROME 02/10/2011 RICHARD DIRECT SERVICE WORKER, JEWELS 578.1 BLOOD IN STOOL 02/10/2011 RICHARD DIRECT SERVICE WORKER, JEWELS 789.07 ABDOMINAL PAIN GENERALIZED 02/10/2011 RICHARD DIRECT SERVICE WORKER, JEWELS V04.81 FLU DX (3 YRS AND ABOVE, IM) 02/10/2011 RICHARD DIRECT SERVICE WORKER, JEWELS 564.1 IRRITABLE BOWEL SYNDROME 02/10/2011 RICHARD DIRECT SERVICE WORKER, JEWELS 578.1 BLOOD IN STOOL 02/10/2011 RICHARD DIRECT SERVICE WORKER, JEWELS 789.07 ABDOMINAL PAIN GENERALIZED 02/10/2011 RICHARD DIRECT SERVICE WORKER, JEWELS V04.81 FLU DX (3 YRS AND [...] HISTORY OF COLONIC POLYPS 03/17/2011 MARIA GUADALUPE DIRECT SERVICE WORKER, TON S 536.8 DYSPEPSIA 03/17/2011 MARIA GUADALUPE CHAUDHARIN, TON S 789.01 ABDOMINAL PAIN RIGHT UPPER QUADRANT 03/17/2011 MARIA GUADALUPE VAUGHN, TON S V12.72 PERSONAL HISTORY OF COLONIC POLYPS 03/17/2011 MARIA GUADALUPE VAUGHN, TON S 536.8 DYSPEPSIA 03/17/2011 MARIA GUADALUPE VAUGHN, TON S 789.01 ABDOMINAL PAIN RIGHT UPPER QUADRANT 03/17/2011 MARIA GUADALUPE VAUGHN TON S V12.72 PERSONAL HISTORY OF COLONIC POLYPS 03/17/2011 ISAIAS VALENZUELA MD 536.8 DYSPEPSIA 03/17/2011 ISAIAS VALENZUELA MD 789.01 ABDOMINAL PAIN RIGHT UPPER QUADRANT 03/17/2011 ISAIAS VALENZUELA MD V12.72 PERSONAL HISTORY OF COLONIC POLYPS 03/17/2011 MARIA GUADALUPE VAUGHN, TON S 536.8 DYSPEPSIA 03/17/2011 MARIA GUADALUPE VAUGHN TON S 789.01 ABDOMINAL PAIN RIGHT UPPER QUADRANT 03/17/2011 MARIA GUADALUPE VAUGHN TON S V12.72 PERSONAL HISTORY OF COLONIC POLYPS 03/17/2011 MARIA GUADALUPE VAUGHN, TON S 536.8 DYSPEPSIA 03/17/2011 MARIA GUADALUPE VAUGHN, TON S 789.01 ABDOMINAL PAIN RIGHT UPPER QUADRANT 03/17/2011 MARIA GUADALUPE VAUGHN TON S V12.72 PERSONAL HISTORY OF COLONIC POLYPS 03/17/2011 MARIA GUADALUPE DIRECT SERVICE WORKER, TON S 536.8 DYSPEPSIA 03/17/2011 MARIA GUADALUPE VAUGHN, TON S 789.01 ABDOMINAL PAIN RIGHT UPPER QUADRANT 03/17/2011 MARIA GUADALUPE DIRECT SERVICE WORKER, TON S V12.72 PERSONAL HISTORY OF COLONIC POLYPS 03/17/2011 MARIA GUADALUPE DIRECT SERVICE WORKER, TON S 536.8 DYSPEPSIA 03/17/2011 MARIA GUADALUPE DIRECT SERVICE WORKER, TON S 789.01 ABDOMINAL PAIN RIGHT UPPER QUADRANT 03/17/2011 MARIA GUADALUPE DIRECT SERVICE WORKER, TON S V12.72 PERSONAL HISTORY OF COLONIC POLYPS 03/17/2011 MARIA GUADALUPE DIRECT SERVICE WORKER, TON S 536.8 DYSPEPSIA 03/17/2011 MARIA GUADALUPE DIRECT SERVICE WORKER, TON S 789.01 ABDOMINAL PAIN RIGHT UPPER QUADRANT 03/17/2011 MARIA GUADALUPE DIRECT SERVICE WORKER, TON S V12.72 PERSONAL HISTORY OF COLONIC POLYPS 03/17/2011 DIAZ VAUGHN CATHERINE T 536.8 DYSPEPSIA 03/17/2011 DIAZ CHAUDHARIN, CATHERINE T 789.01 ABDOMINAL PAIN RIGHT UPPER QUADRANT 03/17/2011 DIAZ VAUGHN CATHERINE T V12.72 PERSONAL HISTORY OF COLONIC POLYPS 03/17/2011 MARIA GUADALUPE DIRECT SERVICE WORKER, TON S 536.8 DYSPEPSIA 03/17/2011 MARIA GUADALUPE DIRECT SERVICE WORKER, TON S 789.01 ABDOMINAL PAIN RIGHT UPPER QUADRANT 03/17/2011 MARIA GUADALUPE DIRECT SERVICE WORKER, TON S V12.72 PERSONAL HISTORY OF COLONIC POLYPS 03/17/2011 MARIA GUADALUPE DIRECT SERVICE WORKER, TON S 536.8 DYSPEPSIA 03/17/2011 MARIA GUADALUPE DIRECT SERVICE WORKER, TON S 789.01 ABDOMINAL PAIN RIGHT UPPER QUADRANT 03/17/2011 MARIA GUADALUPE DIRECT SERVICE WORKER, TON S V12.72 PERSONAL HISTORY OF COLONIC POLYPS 03/17/2011 MARIA GUADALUPE DIRECT SERVICE WORKER, TON S 536.8 DYSPEPSIA 03/17/2011 MARIA GUADALUPE DIRECT SERVICE WORKER, TON S 789.01 ABDOMINAL PAIN RIGHT UPPER QUADRANT 03/17/2011 MARIA GUADALUPE DIRECT SERVICE WORKER, TON S V12.72 PERSONAL HISTORY OF COLONIC POLYPS 03/17/2011 MARIA GUADALUPE DIRECT SERVICE WORKER, TON S 536.8 DYSPEPSIA 03/17/2011 MARIA GUADALUPE DIRECT SERVICE WORKER, TON S 789.01 ABDOMINAL PAIN RIGHT UPPER QUADRANT 03/17/2011 MARIA GUADALUPE DIRECT SERVICE WORKER, TON S V12.72 PERSONAL HISTORY OF COLONIC POLYPS 03/17/2011 VELASQUEZ KAUR PSYD L 536.8 DYSPEPSIA 03/17/2011 VELASQUEZ KAUR PSYD L 789.01 ABDOMINAL PAIN RIGHT UPPER QUADRANT 03/17/2011 VELASQUEZ KAUR PSYD L V12.72 PERSONAL HISTORY OF COLONIC POLYPS 03/17/2011 JEWELS ROMANO DO K 536.8 DYSPEPSIA 03/17/2011 JEWELS ROMANO DO K 789.01 ABDOMINAL PAIN RIGHT UPPER QUADRANT [...] RICHARD VAUGHN JEWELS 536.8 DYSPEPSIA 03/17/2011 RICHARD VAUGHN JEWELS 789.01 ABDOMINAL PAIN RIGHT UPPER QUADRANT 03/17/2011 RICHARD VAUGHN JEWELS V12.72 PERSONAL HISTORY OF COLONIC POLYPS 03/17/2011 RICHARD VAUGHN JEWELS 536.8 DYSPEPSIA 03/17/2011 RICHARD VAUGHN JEWELS 789.01 ABDOMINAL PAIN RIGHT UPPER QUADRANT 03/17/2011 RICHARD VAUGHN JEWELS V12.72 PERSONAL HISTORY OF COLONIC POLYPS 03/17/2011 RICHARD VAUGHN JEWELS 536.8 DYSPEPSIA 03/17/2011 RICHARD VAUGHN JEWELS 789.01 ABDOMINAL PAIN RIGHT UPPER QUADRANT 03/17/2011 RICHARD VAUGHN JEWELS V12.72 PERSONAL HISTORY OF COLONIC POLYPS 04/10/2011 Ot 530.81 04/10/2011 Ot 575.11 04/10/2011 Ot 575.8 04/21/2011 JEWELS ROMANO DO V45.89 OTHER POSTSURGICAL STATUS 04/21/2011 V45.89 OTHER POSTSURGICAL STATUS 04/21/2011 V45.89 OTHER POSTSURGICAL STATUS 04/21/2011 MARIA GUADALUPE DIRECT SERVICE WORKER, TON S V45.89 OTHER POSTSURGICAL STATUS 04/21/2011 MARJORIE STRONG APRN V45.89 OTHER POSTSURGICAL STATUS 04/21/2011 V45.89 OTHER POSTSURGICAL STATUS 04/21/2011 V45.89 OTHER POSTSURGICAL STATUS 04/21/2011 V45.89 OTHER POSTSURGICAL STATUS 04/21/2011 MARIA GUADALUPE DIRECT SERVICE WORKER, TON S V45.89 OTHER POSTSURGICAL STATUS 04/21/2011 MARIA GUADALUPE DIRECT SERVICE WORKER, TON S V45.89 OTHER POSTSURGICAL STATUS 04/21/2011 ISAIAS VALENZUELA MD V45.89 OTHER POSTSURGICAL STATUS 04/21/2011 MARIA GUADALUPE DIRECT SERVICE WORKER, TON S V45.89 OTHER POSTSURGICAL STATUS 04/21/2011 MARIA GUADALUPE DIRECT SERVICE WORKER, TON S V45.89 OTHER POSTSURGICAL STATUS 04/21/2011 MARIA GUADALUPE DIRECT SERVICE WORKER, TON S V45.89 OTHER POSTSURGICAL STATUS 04/21/2011 MARIA GUADALUPE DIRECT SERVICE WORKER, TON S V45.89 OTHER POSTSURGICAL STATUS 04/21/2011 MARIA GUADALUPE DIRECT SERVICE WORKER, TON S V45.89 OTHER POSTSURGICAL STATUS 04/21/2011 DIAZ CHAUDHARINCATHERINE V45.89 OTHER POSTSURGICAL STATUS 04/21/2011 MARIA GUADALUPE DIRECT SERVICE WORKER, TON S V45.89 OTHER POSTSURGICAL STATUS 04/21/2011 MARIA GUADALUPE DIRECT SERVICE WORKER, TON S V45.89 OTHER POSTSURGICAL STATUS 04/21/2011 MARIA GUADALUPE DIRECT SERVICE WORKER, TON S V45.89 OTHER POSTSURGICAL STATUS 04/21/2011 MARIA GUADALUPE DIRECT SERVICE WORKER, TON S V45.89 OTHER POSTSURGICAL STATUS 04/21/2011 VELASQUEZ KAUR PSYD V45.89 OTHER POSTSURGICAL STATUS 04/21/2011 JEWELS ROMANO DO V45.89 OTHER POSTSURGICAL STATUS 04/21/2011 VELASQUEZ KAUR PSYD V45.89 OTHER POSTSURGICAL STATUS 04/21/2011 SYMONE POST APRN V45.89 OTHER POSTSURGICAL STATUS 04/21/2011 RICHARD DIRECT SERVICE WORKER JEWELS V45.89 OTHER POSTSURGICAL STATUS 04/21/2011 RICHARD DIRECT SERVICE WORKERJEWELS V45.89 OTHER POSTSURGICAL STATUS 04/21/2011 RICHARD DIRECT SERVICE WORKER, JEWELS V45.89 OTHER POSTSURGICAL STATUS 09/16/2011 JEWELS [...] 726.32 LATERAL EPICONDYLITIS ELBOW REGION 09/16/2011 RICHARD DIRECT SERVICE WORKER, JEWELS 726.32 LATERAL EPICONDYLITIS ELBOW REGION 09/16/2011 RICHARD DIRECT SERVICE WORKER, JEWELS 726.32 LATERAL EPICONDYLITIS ELBOW REGION 09/16/2011 RICHARD DIRECT SERVICE WORKER, JEWELS 726.32 LATERAL EPICONDYLITIS ELBOW REGION 04/12/2012 JEWELS ROMANO DO 008.8 GASTROENTERITIS, VIRAL 04/12/2012 JEWELS ROMANO DO V76.10 BREAST CANCER SCREENING 04/12/2012 JEWELS ROMANO DO V76.2 CERVICAL CANCER SCREENING (PAP SMEAR) 04/12/2012 JEWELS ROMANO DO V76.51 COLON CANCER SCREENING 04/12/2012 008.8 GASTROENTERITIS, VIRAL 04/12/2012 V76.10 BREAST CANCER SCREENING 04/12/2012 V76.2 CERVICAL CANCER SCREENING (PAP SMEAR) 04/12/2012 V76.51 COLON CANCER SCREENING 04/12/2012 008.8 GASTROENTERITIS, VIRAL 04/12/2012 V76.10 BREAST CANCER SCREENING 04/12/2012 V76.2 CERVICAL CANCER SCREENING (PAP SMEAR) 04/12/2012 V76.51 COLON CANCER SCREENING 04/12/2012 TON LERMA APRN S 008.8 GASTROENTERITIS, VIRAL 04/12/2012 QUINTEN LERMA APRNNDA S V76.10 BREAST CANCER SCREENING 04/12/2012 BRITNEY LERMA APRNA S V76.2 CERVICAL CANCER SCREENING (PAP SMEAR) 04/12/2012 BRITNEY LERMA APRNA S V76.51 COLON CANCER SCREENING 04/12/2012 MARJORIE [...] V76.51 COLON CANCER SCREENING 04/12/2012 MARIA GUADALUPE VAUGHN TON S 008.8 GASTROENTERITIS, VIRAL 04/12/2012 MARIA GUADALUPE DIRECT SERVICE WORKER, TON S V76.10 BREAST CANCER SCREENING 04/12/2012 MARIA GUADALUPE DIRECT SERVICE WORKER, TON S V76.2 CERVICAL CANCER SCREENING (PAP SMEAR) 04/12/2012 MARIA GUADALUPE VAUGHN TON S V76.51 COLON CANCER SCREENING 04/12/2012 MARIA GUADALUPE VAUGHN TON S 008.8 GASTROENTERITIS, VIRAL 04/12/2012 MARIA GUADALUPE DIRECT SERVICE WORKER, TON S V76.10 BREAST CANCER SCREENING 04/12/2012 MARIA GUADALUPE DIRECT SERVICE WORKER, TON S V76.2 CERVICAL CANCER SCREENING (PAP SMEAR) 04/12/2012 MARIA GUADALUPE DIRECT SERVICE WORKER, TON S V76.51 COLON CANCER SCREENING 04/12/2012 ISAIAS VALENZUELA MD 008.8 GASTROENTERITIS, VIRAL 04/12/2012 ISAIAS VALENZUELA MD V76.10 BREAST CANCER SCREENING 04/12/2012 ISAIAS VALENZUELA MD V76.2 CERVICAL CANCER SCREENING (PAP SMEAR) 04/12/2012 ISAIAS VALENZUELA MD V76.51 COLON CANCER SCREENING 04/12/2012 MARIA GUADALUPE VAUGHN TON S 008.8 GASTROENTERITIS, VIRAL 04/12/2012 MARIA GUADALUPE DIRECT SERVICE WORKER, TON S V76.10 BREAST CANCER SCREENING 04/12/2012 MARIA GUADALUPE VAUGHN TON S V76.2 CERVICAL CANCER SCREENING (PAP SMEAR) 04/12/2012 MARIA GUADALUPE VAUGHN TON S V76.51 COLON CANCER SCREENING 04/12/2012 MARIA GUADALUPE DIRECT SERVICE WORKER, TON S 008.8 GASTROENTERITIS, VIRAL 04/12/2012 MARIA GUADALUPE DIRECT SERVICE WORKER, TON S V76.10 BREAST CANCER SCREENING 04/12/2012 MARIA GUADALUPE DIRECT SERVICE WORKER, TON S V76.2 CERVICAL CANCER SCREENING (PAP SMEAR) 04/12/2012 MARIA GUADAULPE DIRECT SERVICE WORKER, TON S V76.51 COLON CANCER SCREENING 04/12/2012 MARIA GUADALUPE DIRECT SERVICE WORKER, TON S 008.8 GASTROENTERITIS, VIRAL 04/12/2012 MARIA GUADALUPE DIRECT SERVICE WORKER, TON S V76.10 BREAST CANCER SCREENING 04/12/2012 MARIA GUADALUPE DIRECT SERVICE WORKER, TON S V76.2 CERVICAL CANCER SCREENING (PAP SMEAR) 04/12/2012 MARIA GUADALUPE DIRECT SERVICE WORKER, TON S V76.51 COLON CANCER SCREENING 04/12/2012 MARIA GUADALUPE DIRECT SERVICE WORKER, TON S 008.8 GASTROENTERITIS, VIRAL 04/12/2012 MARIA GUADALUPE DIRECT SERVICE WORKER, TON S V76.10 BREAST CANCER SCREENING 04/12/2012 MARIA GUADALUPE DIRECT SERVICE WORKER, TON S V76.2 CERVICAL CANCER SCREENING (PAP SMEAR) 04/12/2012 MARIA GUADALUPE DIRECT SERVICE WORKER, TON S V76.51 COLON CANCER SCREENING 04/12/2012 MARIA GUADALUPE DIRECT SERVICE WORKER, TON S 008.8 GASTROENTERITIS, VIRAL 04/12/2012 MARIA GUADALUPE DIRECT SERVICE WORKER, TON S V76.10 BREAST CANCER SCREENING 04/12/2012 MARIA GUADALUPE DIRECT SERVICE WORKER, TON S V76.2 CERVICAL CANCER SCREENING (PAP SMEAR) 04/12/2012 MARIA GUADALUPE DIRECT SERVICE WORKER, TON S V76.51 COLON CANCER SCREENING 04/12/2012 CATHERINE PERALES APRN 008.8 GASTROENTERITIS, VIRAL 04/12/2012 CATHERINE PERALES APRN T V76.10 BREAST CANCER SCREENING 04/12/2012 CATHERINE PERALES APRN T V76.2 CERVICAL CANCER SCREENING (PAP SMEAR) 04/12/2012 CATHERINE PERALES APRN V76.51 COLON CANCER SCREENING 04/12/2012 MARIA GUADALUPE DIRECT SERVICE WORKER, TON S 008.8 GASTROENTERITIS, VIRAL 04/12/2012 MARIA GUADALUPE DIRECT SERVICE WORKER, TON S V76.10 BREAST CANCER SCREENING 04/12/2012 MARIA GUADALUPE DIRECT SERVICE WORKER, TON S V76.2 CERVICAL CANCER SCREENING (PAP SMEAR) 04/12/2012 MARIA GUADALUPE DIRECT SERVICE WORKER, TON S V76.51 COLON CANCER SCREENING 04/12/2012 MARIA GUADALUPE DIRECT SERVICE WORKER, TON S 008.8 GASTROENTERITIS, VIRAL 04/12/2012 MARIA GUADALUPE DIRECT SERVICE WORKER, TON S V76.10 BREAST CANCER SCREENING 04/12/2012 MARIA GUADALUPE DIRECT SERVICE WORKER, TON S V76.2 CERVICAL CANCER SCREENING (PAP SMEAR) 04/12/2012 MARIA GUADALUPE DIRECT SERVICE WORKER, TON S V76.51 COLON CANCER SCREENING 04/12/2012 MARIA GUADALUPE DIRECT SERVICE WORKER, TON S 008.8 GASTROENTERITIS, VIRAL 04/12/2012 MARIA GUADALUPE DIRECT SERVICE WORKER, TON S V76.10 BREAST CANCER SCREENING 04/12/2012 MARIA GUADALUPE DIRECT SERVICE WORKER, TON S V76.2 CERVICAL CANCER SCREENING (PAP SMEAR) 04/12/2012 MARIA GUADALUPE DIRECT SERVICE WORKER, TON S V76.51 COLON CANCER SCREENING 04/12/2012 MARIA GUADALUPE DIRECT SERVICE WORKER, TON S 008.8 GASTROENTERITIS, VIRAL 04/12/2012 MARIA GUADALUPE DIRECT SERVICE WORKER, TON S V76.10 BREAST CANCER SCREENING 04/12/2012 MARIA GUADALUPE DIRECT SERVICE WORKER, TON S V76.2 CERVICAL CANCER SCREENING (PAP SMEAR) 04/12/2012 MARIA GUADALUPE DIRECT SERVICE WORKER, TON S V76.51 COLON CANCER SCREENING 04/12/2012 VELASQUEZ AKUR PSYD 008.8 GASTROENTERITIS, VIRAL 04/12/2012 VELASQUEZ KAUR PSYD L V76.10 BREAST CANCER SCREENING 04/12/2012 VELASQUEZ KAUR PSYD L V76.2 CERVICAL CANCER SCREENING (PAP SMEAR) 04/12/2012 VELASQUEZ KAUR PSYD L V76.51 COLON CANCER SCREENING 04/12/2012 ROMANO DO, JEWELS K 008.8 GASTROENTERITIS, VIRAL 04/12/2012 ROMANO DO, JEWELS K V76.10 BREAST CANCER SCREENING 04/12/2012 ROMANO DO, JEWELS K V76.2 CERVICAL CANCER SCREENING (PAP SMEAR) 04/12/2012 ROMANO DO, JEWELS K V76.51 COLON CANCER SCREENING 04/12/2012 VELASQUEZ KAUR PSYD 008.8 GASTROENTERITIS, VIRAL 04/12/2012 VELASQUEZ KAUR PSYD V76.10 BREAST CANCER SCREENING 04/12/2012 VELASQUEZ KAUR PSYD V76.2 CERVICAL CANCER SCREENING (PAP SMEAR) 04/12/2012 VELASQUEZ KAUR PSYD V76.51 COLON CANCER SCREENING 04/12/2012 SYMONE POST APRN 008.8 GASTROENTERITIS, VIRAL 04/12/2012 POSTSYMONE Ventura APRN V76.10 BREAST CANCER SCREENING 04/12/2012 SYMONE POST APRN V76.2 CERVICAL CANCER SCREENING (PAP SMEAR) 04/12/2012 SYMONE POST APRN V76.51 COLON CANCER SCREENING 04/12/2012 RICHARD DIRECT SERVICE WORKER, JEWELS 008.8 GASTROENTERITIS, VIRAL 04/12/2012 RICHARD DIRECT SERVICE WORKER, JEWELS V76.10 BREAST CANCER SCREENING 04/12/2012 RICHARD DIRECT SERVICE WORKER, JEWELS V76.2 CERVICAL CANCER SCREENING (PAP SMEAR) 04/12/2012 RICHARD DIRECT SERVICE WORKER, JEWELS V76.51 COLON CANCER SCREENING 04/12/2012 RICHARD DIRECT SERVICE WORKER, JEWELS 008.8 GASTROENTERITIS, VIRAL 04/12/2012 RICHARD DIRECT SERVICE WORKER, JEWELS V76.10 BREAST CANCER SCREENING 04/12/2012 RICHARD DIRECT SERVICE WORKER, JEWELS V76.2 CERVICAL CANCER SCREENING (PAP SMEAR) 04/12/2012 RICHARD DIRECT SERVICE WORKER, JEWELS V76.51 COLON CANCER SCREENING 04/12/2012 RICHARD DIRECT SERVICE WORKER, JEWELS 008.8 GASTROENTERITIS, VIRAL 04/12/2012 RICHARD DIRECT SERVICE WORKER, JEWELS V76.10 BREAST CANCER SCREENING 04/12/2012 RICHARD DIRECT SERVICE WORKER, JEWELS V76.2 CERVICAL CANCER SCREENING (PAP SMEAR) 04/12/2012 RICHARD DIRECT SERVICE WORKER, JEWELS V76.51 COLON CANCER SCREENING 04/17/2012 JEWELS ROMANO DO 528.2 ORAL APHTHAE 04/17/2012 528.2 ORAL APHTHAE 04/17/2012 528.2 ORAL APHTHAE 04/17/2012 TON LERMA APRN 528.2 ORAL APHTHAE 04/17/2012 MARJORIE STRONG APRN 528.2 ORAL APHTHAE 04/17/2012 528.2 ORAL APHTHAE 04/17/2012 528.2 ORAL APHTHAE 04/17/2012 528.2 ORAL APHTHAE 04/17/2012 MARIA GUADALUPEGARY VAUGHN, TON S 528.2 ORAL APHTHAE 04/17/2012 MARIA GUADALUPE VAUGHN, TON S 528.2 ORAL APHTHAE 04/17/2012 ISAIAS VALENZUELA MD 528.2 ORAL APHTHAE 04/17/2012 MARIA GUADALUPE DIRECT SERVICE WORKER, TON S 528.2 ORAL APHTHAE 04/17/2012 MARIA GUADALUPE DIRECT SERVICE WORKER, TON S 528.2 ORAL APHTHAE 04/17/2012 MARIA GUADALUPE DIRECT SERVICE WORKER, TON S 528.2 ORAL APHTHAE 04/17/2012 MARIA GUADALUPE DIRECT SERVICE WORKER, TON S 528.2 ORAL APHTHAE 04/17/2012 MARIA GUADALUPE DIRECT SERVICE WORKER, TON S 528.2 ORAL APHTHAE 04/17/2012 CATHERINE PERALES APRN 528.2 ORAL APHTHAE 04/17/2012 MARIA GUADALUPE DIRECT SERVICE WORKER, TON S 528.2 ORAL APHTHAE 04/17/2012 MARIA GUADALUPE VAUGHN, TON S 528.2 ORAL APHTHAE 04/17/2012 MARAI GUADALUPE DIRECT SERVICE WORKER, TON S 528.2 ORAL APHTHAE 04/17/2012 MARIA GUADALUPE DIRECT SERVICE WORKER, TON S 528.2 ORAL APHTHAE 04/17/2012 VELASQUEZ KAUR PSYD 528.2 ORAL APHTHAE 04/17/2012 JEWELS ROMANO DO 528.2 ORAL APHTHAE 04/17/2012 VELASQUEZ KAUR PSYD 528.2 ORAL APHTHAE 04/17/2012 SYMONE POST APRN 528.2 ORAL APHTHAE 04/17/2012 RICHARD JEWELS VAUGHN 528.2 ORAL APHTHAE 04/17/2012 JEWELS RAMOS APRN 528.2 ORAL APHTHAE 04/17/2012 RICHARD JEWELS VAUGHN 528.2 ORAL APHTHAE 04/20/2012 Ot 528.9 ORAL [...] 07/01/2012 729.1 MYALGIA AND MYOSITIS UNSPECIFIED 07/01/2012 BRITNEY LERMA APRNA S 535.50 GASTRITIS UNSPEC 07/01/2012 QUINTEN LERMA APRNNDA S 729.1 MYALGIA AND MYOSITIS UNSPECIFIED 07/01/2012 QUINTEN LERMA APRNNDA S 535.50 GASTRITIS UNSPEC 07/01/2012 MARIA GUADALUPE VAUGHN TON S 729.1 MYALGIA AND MYOSITIS UNSPECIFIED 07/01/2012 ISAIAS VALENZUELA MD 535.50 GASTRITIS UNSPEC 07/01/2012 ISAIAS VALENZUELA MD 729.1 MYALGIA AND MYOSITIS UNSPECIFIED 07/01/2012 QUINTEN LERMA APRNNDA S 535.50 GASTRITIS UNSPEC 07/01/2012 MARIA GUADALUPE VAUGHN TON S 729.1 MYALGIA AND MYOSITIS UNSPECIFIED 07/01/2012 MARIA GUADALUPE VAUGHN TON S 535.50 GASTRITIS UNSPEC 07/01/2012 MARIA GUADALUPE VAUGHN TON S 729.1 MYALGIA AND MYOSITIS UNSPECIFIED 07/01/2012 MARIA GUADALUPE VAUGHN, TON S 535.50 GASTRITIS UNSPEC 07/01/2012 MARIA GUADALUPE VAUGHN TON S 729.1 MYALGIA AND MYOSITIS UNSPECIFIED 07/01/2012 MARIA GUADALUPE VAUGHN TON S 535.50 GASTRITIS UNSPEC 07/01/2012 MARIA GUADALUPE DIRECT SERVICE WORKER, TON S 729.1 MYALGIA AND MYOSITIS UNSPECIFIED 07/01/2012 MARIA GUADALUPE DIRECT SERVICE WORKER, TON S 535.50 GASTRITIS UNSPEC 07/01/2012 MARIA GUADALUPE DIRECT SERVICE WORKER, TON S 729.1 MYALGIA AND MYOSITIS UNSPECIFIED 07/01/2012 CATHERINE PERALES APRN 535.50 GASTRITIS UNSPEC 07/01/2012 CATHERINE PERALES APRN 729.1 MYALGIA AND MYOSITIS UNSPECIFIED 07/01/2012 MARIA GUADALUPE DIRECT SERVICE WORKER, TON S 535.50 GASTRITIS UNSPEC 07/01/2012 MARIA GUADALUPE DIRECT SERVICE WORKER, TON S 729.1 MYALGIA AND MYOSITIS UNSPECIFIED 07/01/2012 MARIA GUADALUPE DIRECT SERVICE WORKER, TON S 535.50 GASTRITIS UNSPEC 07/01/2012 MARIA GUADALUPE DIRECT SERVICE WORKER, TON S 729.1 MYALGIA AND MYOSITIS UNSPECIFIED 07/01/2012 MARIA GUADALUPE VAUGHN, TON S 535.50 GASTRITIS UNSPEC 07/01/2012 MARIA GUADALUPE DIRECT SERVICE WORKER, TON S 729.1 MYALGIA AND MYOSITIS UNSPECIFIED 07/01/2012 MARIA GUADALUPE DIRECT SERVICE WORKER, TON S 535.50 GASTRITIS UNSPEC 07/01/2012 MARIA GUADALUPEGARY VAUGHN, TON S 729.1 MYALGIA AND MYOSITIS UNSPECIFIED 07/01/2012 VELASQUEZ KAUR PSYD 535.50 GASTRITIS UNSPEC 07/01/2012 VELASQUEZ KAUR PSYD L 729.1 MYALGIA AND MYOSITIS UNSPECIFIED 07/01/2012 SACHA ROMANO DOA K 535.50 GASTRITIS UNSPEC 07/01/2012 SACHA ROMANO DOA K 729.1 MYALGIA AND MYOSITIS UNSPECIFIED 07/01/2012 VELASQUEZ KAUR PSYD 535.50 GASTRITIS UNSPEC 07/01/2012 VELASQUEZ KAUR PSYD 729.1 MYALGIA AND MYOSITIS UNSPECIFIED 07/01/2012 SYMONE POST APRN 535.50 GASTRITIS UNSPEC 07/01/2012 SYMONE POST APRN 729.1 MYALGIA AND MYOSITIS UNSPECIFIED 07/01/2012 RICHARD DIRECT SERVICE WORKER, JEWELS 535.50 GASTRITIS UNSPEC 07/01/2012 RICHARD DIRECT SERVICE WORKER, JEWELS 729.1 MYALGIA AND MYOSITIS UNSPECIFIED 07/01/2012 RICHARD DIRECT SERVICE WORKER, JEWELS 535.50 GASTRITIS UNSPEC 07/01/2012 RICHARD DIRECT SERVICE WORKER, JEWELS 729.1 MYALGIA AND MYOSITIS UNSPECIFIED 07/01/2012 RICHARD DIRECT SERVICE WORKER, JEWELS 535.50 GASTRITIS UNSPEC 07/01/2012 RICHARD DIRECT SERVICE WORKER, JEWELS 729.1 MYALGIA AND MYOSITIS UNSPECIFIED 07/05/2012 Ot 729.5 PAIN IN LIMB 08/04/2012 MARJORIE STRONG APRN 782.3 EDEMA 08/04/2012 782.3 EDEMA 08/04/2012 782.3 EDEMA 08/04/2012 782.3 EDEMA 08/04/2012 MARIA GUADALUPE CHAUDHARIN, TON S 782.3 EDEMA 08/04/2012 MARIA GUADALUPE CHAUDHARIN, TON S 782.3 EDEMA 08/04/2012 ISAIAS VALENZUELA MD 782.3 EDEMA 08/04/2012 MARIA GUADALUPE DIRECT SERVICE WORKER, TON S 782.3 EDEMA 08/04/2012 MARIA GUADALUPE DIRECT SERVICE WORKER, TON S 782.3 EDEMA 08/04/2012 MARIA GUADALUPE DIRECT SERVICE WORKER, TON S 782.3 EDEMA 08/04/2012 MARIA GUADALUPE DIRECT SERVICE WORKER, TON S 782.3 EDEMA 08/04/2012 MARIA GUADALUPE DIRECT SERVICE WORKER, TON S 782.3 EDEMA 08/04/2012 CATHERINE PERALES APRN 782.3 EDEMA 08/04/2012 MARIA GUADALUPE DIRECT SERVICE WORKER, TON S 782.3 EDEMA 08/04/2012 MARIA GUADALUPE DIRECT SERVICE WORKER, TON S 782.3 EDEMA 08/04/2012 MARIA GUADALUPE DIRECT SERVICE WORKER, TON S 782.3 EDEMA 08/04/2012 MARIA GUADALUPE DIRECT SERVICE WORKER, TON S 782.3 EDEMA 08/04/2012 VELASQUEZ KAUR PSYD 782.3 EDEMA 08/04/2012 JEWELS ROMANO DO 782.3 EDEMA 08/04/2012 VELASQUEZ KAUR PSYD 782.3 EDEMA 08/04/2012 SYMONE POST APRN 782.3 EDEMA 08/04/2012 RICHARD DIRECT SERVICE WORKER, JEWELS 782.3 EDEMA 08/04/2012 RICHARD DIRECT SERVICE WORKER, JEWELS 782.3 EDEMA 08/04/2012 RICHARD DIRECT SERVICE WORKER, JEWELS 782.3 EDEMA 08/18/2012 780.4 DIZZINESS AND VERTIGO 08/18/2012 780.4 DIZZINESS AND VERTIGO 08/18/2012 780.4 DIZZINESS AND VERTIGO 08/18/2012 MARIA GUADALUPE DIRECT SERVICE WORKER, TON S 780.4 DIZZINESS AND VERTIGO 08/18/2012 MARIA GUADALUPE DIRECT SERVICE WORKER, TON S 780.4 DIZZINESS AND VERTIGO 08/18/2012 BIANCA SHAH, ISAIAS 780.4 DIZZINESS AND VERTIGO 08/18/2012 MARIA GUADALPUE DIRECT SERVICE WORKER, TON S 780.4 DIZZINESS AND VERTIGO 08/18/2012 MARIA GUADALUPE DIRECT SERVICE WORKER, TON S 780.4 DIZZINESS AND VERTIGO 08/18/2012 MARIA GUADALUPE DIRECT SERVICE WORKER, TON S 780.4 DIZZINESS AND VERTIGO 08/18/2012 MARIA GUADALUPE DIRECT SERVICE WORKER, TON S 780.4 DIZZINESS AND VERTIGO 08/18/2012 MARIA GUADALUPE DIRECT SERVICE WORKER, TON S 780.4 DIZZINESS AND VERTIGO 08/18/2012 CATHERINE PERALES APRN 780.4 DIZZINESS AND VERTIGO 08/18/2012 MARIA GUADALUPE DIRECT SERVICE WORKER, TON S 780.4 DIZZINESS AND VERTIGO 08/18/2012 MARIA GUADALUPE DIRECT SERVICE WORKER, TON S 780.4 DIZZINESS AND VERTIGO 08/18/2012 MARIA GUADALUPE DIRECT SERVICE WORKER, TON S 780.4 DIZZINESS AND VERTIGO 08/18/2012 MARIA GUADALUPE DIRECT SERVICE WORKER, TON S 780.4 DIZZINESS AND VERTIGO 08/18/2012 VELASQUEZ KAUR PSYD 780.4 DIZZINESS AND VERTIGO 08/18/2012 JEWELS ROMANO DO 780.4 DIZZINESS AND VERTIGO 08/18/2012 VELASQUEZ KAUR PSYD 780.4 DIZZINESS AND VERTIGO 08/18/2012 SYMONE POST APRN 780.4 DIZZINESS AND VERTIGO 08/18/2012 RICHARD DIRECT SERVICE WORKER, JEWELS 780.4 DIZZINESS AND VERTIGO 08/18/2012 RICHARD DIRECT SERVICE WORKER, JEWELS 780.4 DIZZINESS AND VERTIGO 08/18/2012 RICHARD DIRECT SERVICE WORKER, JEWELS 780.4 DIZZINESS AND VERTIGO 11/03/2012 530.81 GERD 11/03/2012 789.06 ABDOMINAL PAIN EPIGASTRIC 11/03/2012 530.81 GERD 11/03/2012 789.06 ABDOMINAL PAIN EPIGASTRIC 11/03/2012 MARIA GUADALUPE DIRECT SERVICE WORKER, TON S 530.81 GERD 11/03/2012 MARIA GUADALUPE DIRECT SERVICE WORKER, TON S 789.06 ABDOMINAL PAIN EPIGASTRIC 11/03/2012 MARIA GUADALUPE DIRECT SERVICE WORKER, TON S 530.81 GERD 11/03/2012 MARIA GUADALUPE DIRECT SERVICE WORKER, TON S 789.06 ABDOMINAL PAIN EPIGASTRIC 11/03/2012 BIANCA SHAH, ISAIAS 530.81 GERD 11/03/2012 BIANCA SHAH, ISAIAS 789.06 ABDOMINAL PAIN EPIGASTRIC 11/03/2012 MARIA GUADALUPE DIRECT SERVICE WORKER, TON S 530.81 GERD 11/03/2012 MARIA GUADALUPE DIRECT SERVICE WORKER, TON S 789.06 ABDOMINAL PAIN EPIGASTRIC 11/03/2012 MARIA GUADALUPE DIRECT SERVICE WORKER, TON S 530.81 GERD 11/03/2012 MARIA GUADALUPE DIRECT SERVICE WORKER, TON S 789.06 ABDOMINAL PAIN EPIGASTRIC 11/03/2012 MARIA GUADALUPE DIRECT SERVICE WORKER, TON S 530.81 GERD 11/03/2012 MARIA GUADALUPE DIRECT SERVICE WORKER, TON S 789.06 ABDOMINAL PAIN EPIGASTRIC 11/03/2012 MARIA GUADALUPE DIRECT SERVICE WORKER, TON S 530.81 GERD 11/03/2012 MARIA GUADALUPE DIRECT SERVICE WORKER, TON S 789.06 ABDOMINAL PAIN EPIGASTRIC 11/03/2012 MARIA GUADALUPE DIRECT SERVICE WORKER, TON S 530.81 GERD 11/03/2012 MARIA GUADALUPE DIRECT SERVICE WORKER, TON S 789.06 ABDOMINAL PAIN EPIGASTRIC 11/03/2012 DIAZ DIRECT SERVICE WORKER, CATHERINE T 530.81 GERD 11/03/2012 DIAZ DIRECT SERVICE WORKERCATHERINE Ramos T 789.06 ABDOMINAL PAIN EPIGASTRIC 11/03/2012 MARIA GUADALUPE DIRECT SERVICE WORKER, TON S 530.81 GERD 11/03/2012 MARIA GUADALUPE DIRECT SERVICE WORKER, TON S 789.06 ABDOMINAL PAIN EPIGASTRIC 11/03/2012 MARIA GUADALUPE DIRECT SERVICE WORKER, TON S 530.81 GERD 11/03/2012 MARIA GUADALUPE DIRECT SERVICE WORKER, TON S 789.06 ABDOMINAL PAIN EPIGASTRIC 11/03/2012 MARIA GUADALUPE DIRECT SERVICE WORKER, TON S 530.81 GERD 11/03/2012 MARIA GUADALUPE DIRECT SERVICE WORKER, TON S 789.06 ABDOMINAL PAIN EPIGASTRIC 11/03/2012 MARIA GUADALUPE DIRECT SERVICE WORKER, TON S 530.81 GERD 11/03/2012 MARIA GUADALUPE DIRECT SERVICE WORKER, TON S 789.06 ABDOMINAL PAIN EPIGASTRIC 11/03/2012 VELASQUEZ KAUR PSYD L 530.81 GERD 11/03/2012 VELASQUEZ KAUR PSYD L 789.06 ABDOMINAL PAIN EPIGASTRIC 11/03/2012 ROMANO DO, JEWELS K 530.81 GERD 11/03/2012 ROMANO DO, JEWELS K 789.06 ABDOMINAL PAIN EPIGASTRIC 11/03/2012 VELASQUEZ KAUR PSYD L 530.81 GERD 11/03/2012 VELASQUEZ KAUR PSYD L 789.06 ABDOMINAL PAIN EPIGASTRIC 11/03/2012 SYMONE POST APRN 530.81 GERD 11/03/2012 SYMONE POST APRN 789.06 ABDOMINAL PAIN EPIGASTRIC 11/03/2012 RICHARD DIRECT SERVICE WORKER, JEWELS 530.81 GERD 11/03/2012 RICHARD DIRECT SERVICE WORKER, JEWELS 789.06 ABDOMINAL PAIN EPIGASTRIC 11/03/2012 RICHARD DIRECT SERVICE WORKER, JEWELS 530.81 GERD 11/03/2012 RICHARD DIRECT SERVICE WORKER, JEWELS 789.06 ABDOMINAL PAIN EPIGASTRIC 11/03/2012 RICHARD DIRECT SERVICE WORKER, JEWELS 530.81 GERD 11/03/2012 RICHARD DIRECT SERVICE WORKER, JEWELS 789.06 ABDOMINAL PAIN EPIGASTRIC 02/21/2013 MARIA GUADALUPE DIRECT SERVICE WORKER, TON S 611.6 GALACTORRHEA 02/21/2013 MARIA GUADALUPE DIRECT SERVICE WORKER, TON S V58.69 HIGH RISK MEDICATION 02/21/2013 ISAIAS VALENZUELA MD 611.6 GALACTORRHEA 02/21/2013 ISAIAS VALENZUELA MD V58.69 HIGH RISK MEDICATION 02/21/2013 MARIA GUADALUPE DIRECT SERVICE WORKER, TON S 611.6 GALACTORRHEA 02/21/2013 MARIA GUADALUPE DIRECT SERVICE WORKER, TON S V58.69 HIGH RISK MEDICATION 02/21/2013 MARIA GUADALUPE DIRECT SERVICE WORKER, TON S 611.6 GALACTORRHEA 02/21/2013 MARIA GUADALUPE DIRECT SERVICE WORKER, TON S V58.69 HIGH RISK MEDICATION 02/21/2013 MARIA GUADALUPE DIRECT SERVICE WORKER, TON S 611.6 GALACTORRHEA 02/21/2013 MARIA GUADALUPE DIRECT SERVICE WORKER, TON S V58.69 HIGH RISK MEDICATION 02/21/2013 MARIA GUADALUPE DIRECT SERVICE WORKER, OTN S 611.6 GALACTORRHEA 02/21/2013 MARIA GUADALUPE DIRECT SERVICE WORKER, TON S V58.69 HIGH RISK MEDICATION 02/21/2013 MARIA GUADALUPE DIRECT SERVICE WORKER, TON S 611.6 GALACTORRHEA 02/21/2013 MARIA GUADALUPE DIRECT SERVICE WORKER, TON S V58.69 HIGH RISK MEDICATION 02/21/2013 DIAZ DIRECT SERVICE WORKER, CATHERINE T 611.6 GALACTORRHEA 02/21/2013 DIAZ DIRECT SERVICE WORKER, CAHTERINE T V58.69 HIGH RISK MEDICATION 02/21/2013 MARIA GUADALUPE DIRECT SERVICE WORKER, TON S 611.6 GALACTORRHEA 02/21/2013 MARIA GUADALUPE DIRECT SERVICE WORKER, TON S V58.69 HIGH RISK MEDICATION 02/21/2013 MARIA GUADALUPE DIRECT SERVICE WORKER, TON S 611.6 GALACTORRHEA 02/21/2013 MARIA GUADALUPE DIRECT SERVICE WORKER, TON S V58.69 HIGH RISK MEDICATION 02/21/2013 MARIA GUADALUPE DIRECT SERVICE WORKER, TON S 611.6 GALACTORRHEA 02/21/2013 MARIA GUADALUPE DIRECT SERVICE WORKER, TON S V58.69 HIGH RISK MEDICATION 02/21/2013 MARIA GUADALUPE DIRECT SERVICE WORKER, TON S 611.6 GALACTORRHEA 02/21/2013 MARIA GUADALUPE DIRECT SERVICE WORKER, TON S V58.69 HIGH RISK MEDICATION 02/21/2013 VELASQUEZ KAUR PSYD L 611.6 GALACTORRHEA 02/21/2013 VELASQUEZ KAUR PSYD L V58.69 HIGH RISK MEDICATION 02/21/2013 ROMANO DO, JEWELS K 611.6 GALACTORRHEA 02/21/2013 ROMANO DO, JEWELS K V58.69 HIGH RISK MEDICATION 02/21/2013 VELASQUEZ KAUR PSYD L 611.6 GALACTORRHEA 02/21/2013 VELASQUEZ KAUR PSYD L V58.69 HIGH RISK MEDICATION 02/21/2013 SYMONE POST APRN 611.6 GALACTORRHEA 02/21/2013 SYMONE POST APRN V58.69 HIGH RISK MEDICATION 02/21/2013 RICHARD DIRECT SERVICE WORKER, JEWELS 611.6 GALACTORRHEA 02/21/2013 RICHARD DIRECT SERVICE WORKER, JEWELS V58.69 HIGH RISK MEDICATION 02/21/2013 RICHARD DIRECT SERVICE WORKER, JEWELS 611.6 GALACTORRHEA 02/21/2013 RICHARD DIRECT SERVICE WORKER, JEWELS V58.69 HIGH RISK MEDICATION 02/21/2013 RICHARD DIRECT SERVICE WORKER, JEWELS 611.6 GALACTORRHEA 02/21/2013 RICHARD DIRECT SERVICE WORKER, JEWELS V58.69 HIGH RISK MEDICATION 03/08/2013 BIANCA SHAH, ISAIAS 461.9 SINUSITIS ACUTE 03/08/2013 MARIA GUADALUPE DIRECT SERVICE WORKER, TON S 461.9 SINUSITIS ACUTE 03/08/2013 MARIA GUADALUPE DIRECT SERVICE WORKER, TON S 461.9 SINUSITIS ACUTE 03/08/2013 MARIA GUADALUPE DIRECT SERVICE WORKER, TON S 461.9 SINUSITIS ACUTE 03/08/2013 MARIA GUADALUPE DIRECT SERVICE WORKER, TON S 461.9 SINUSITIS ACUTE 03/08/2013 MARIA GUADALUPE DIRECT SERVICE WORKER, TON S 461.9 SINUSITIS ACUTE 03/08/2013 CATHERINE PERALES APRN 461.9 SINUSITIS ACUTE 03/08/2013 MARIA GUADALUPE DIRECT SERVICE WORKER, TON S 461.9 SINUSITIS ACUTE 03/08/2013 MARIA GUADALUPE DIRECT SERVICE WORKER, TON S 461.9 SINUSITIS ACUTE 03/08/2013 MARIA GUADALUPE DIRECT SERVICE WORKER, TON S 461.9 SINUSITIS ACUTE 03/08/2013 MARIA GUADALUPE DIRECT SERVICE WORKER, TON S 461.9 SINUSITIS ACUTE 03/08/2013 VELASQUEZ KAUR PSYD 461.9 SINUSITIS ACUTE 03/08/2013 JEWELS ROMANO DO 461.9 SINUSITIS ACUTE 03/08/2013 VELASQUEZ KAUR PSYD 461.9 SINUSITIS ACUTE 03/08/2013 SYMONE POST APRN 461.9 SINUSITIS ACUTE 03/08/2013 RICHARD DIRECT SERVICE WORKER, JEWELS 461.9 SINUSITIS ACUTE 03/08/2013 RICHARD DIRECT SERVICE WORKER, JEWELS 461.9 SINUSITIS ACUTE 03/08/2013 RICHARD DIRECT SERVICE WORKER, JEWELS 461.9 SINUSITIS ACUTE 03/22/2013 MARIA GUADALUPE DIRECT SERVICE WORKER, TON S 627.2 hot flashes 03/22/2013 MARIA GUADALUPE DIRECT SERVICE WORKER, TON S 627.2 hot flashes 03/22/2013 MARIA GUADALUPE DIRECT SERVICE WORKER, TON S 627.2 HOT FLASHES 03/22/2013 MARIA GUADALUPE DIRECT SERVICE WORKER, TON S 627.2 HOT FLASHES 03/22/2013 MARIA GUADALUPE DIRECT SERVICE WORKER, TON S 627.2 HOT FLASHES 03/22/2013 CATHERINE PERALES APRN 627.2 HOT FLASHES 03/22/2013 MARIA GUADALUPE DIRECT SERVICE WORKER, TON S 627.2 HOT FLASHES 03/22/2013 MARIA GUADALUPE DIRECT SERVICE WORKER, TON S 627.2 HOT FLASHES 03/22/2013 MARIA GUADALUPE DIRECT SERVICE WORKER, TON S 627.2 HOT FLASHES 03/22/2013 MARIA GUADALUPE DIRECT SERVICE WORKER, TON S 627.2 HOT FLASHES 03/22/2013 VELASQUEZ KAUR PSYD L 627.2 HOT FLASHES 03/22/2013 JEWELS ROMANO DO 627.2 HOT FLASHES 03/22/2013 VELASQUEZ KAUR PSYD L 627.2 HOT FLASHES 03/22/2013 POST DIRECT SERVICE WORKER, SYMONE D 627.2 HOT FLASHES 03/22/2013 RICHARD DIRECT SERVICE WORKER, JEWELS 627.2 HOT FLASHES 03/22/2013 RICHARD DIRECT SERVICE WORKER, JEWELS 627.2 HOT FLASHES 03/22/2013 RICHARD DIRECT SERVICE WORKER, JEWELS 627.2 HOT FLASHES 03/29/2013 MARIA GUADALUPE DIRECT SERVICE WORKER, TON S 300.00 ANXIETY UNSPEC 03/29/2013 MARIA GUADALUPE DIRECT SERVICE WORKER, TON S 300.00 ANXIETY UNSPEC 03/29/2013 MARIA GUADALUPE DIRECT SERVICE WORKER, TON S 300.00 ANXIETY UNSPEC 03/29/2013 MARIA GUADALUPE DIRECT SERVICE WORKER, TON S 300.00 ANXIETY UNSPEC 03/29/2013 MARIA GUADALUPE DIRECT SERVICE WORKER, TON S 300.00 ANXIETY UNSPEC 03/29/2013 CATHERINE PERALES APRN 300.00 ANXIETY UNSPEC 03/29/2013 MARIA GUADALUPE DIRECT SERVICE WORKER, TON S 300.00 ANXIETY UNSPEC 03/29/2013 MARIA GUADALUPE DIRECT SERVICE WORKER, TON S 300.00 ANXIETY UNSPEC 03/29/2013 TON LERMA APRN S 300.00 ANXIETY UNSPEC 03/29/2013 TON LERMA APRN S 300.00 ANXIETY UNSPEC 03/29/2013 VELASQUEZ KAUR PSYD 300.00 ANXIETY UNSPEC 03/29/2013 JEWELS ROMANO DO 300.00 ANXIETY UNSPEC 03/29/2013 VELASQUEZ KAUR PSYD 300.00 ANXIETY UNSPEC 03/29/2013 SYMONE POST APRN 300.00 ANXIETY UNSPEC 03/29/2013 RICHARD DIRECT SERVICE WORKER, JEWELS 300.00 ANXIETY UNSPEC 03/29/2013 RICHARD DIRECT SERVICE WORKER, JEWELS 300.00 ANXIETY UNSPEC 03/29/2013 RICHARD DIRECT SERVICE WORKER, JEWELS 300.00 ANXIETY UNSPEC 05/23/2013 TON LERMA APRN S 719.46 PAIN IN JOINT INVOLVING LOWER LEG 05/23/2013 BRITNEY LERMA APRNA S 719.47 PAIN- FOOT 05/23/2013 BRITNEY LERMA APRNA S 719.46 PAIN IN JOINT INVOLVING LOWER LEG 05/23/2013 BRITNEY LERMA APRNA S 719.47 PAIN- FOOT 05/23/2013 BRITNEY LERMA APRNA S 719.46 PAIN IN JOINT INVOLVING LOWER LEG 05/23/2013 BRITNEY LERMA APRNA S 719.47 PAIN- FOOT 05/23/2013 BRITNEY LERMA APRNA S 719.46 PAIN IN JOINT INVOLVING LOWER LEG 05/23/2013 BRITNEY LERMA APRNA S 719.47 PAIN- FOOT 05/23/2013 CATHERINE PERALES APRN 719.46 PAIN IN JOINT INVOLVING LOWER LEG 05/23/2013 CATHERINE PERALES APRN 719.47 PAIN- FOOT 05/23/2013 BRITNEY LERMA APRNA S 719.46 PAIN IN JOINT INVOLVING LOWER LEG 05/23/2013 BRITNEY LERMA APRNA S 719.47 PAIN- FOOT 05/23/2013 BRITNEY LERMA APRNA S 719.46 PAIN IN JOINT INVOLVING LOWER LEG 05/23/2013 BRITNEY LERMA APRNA S 719.47 PAIN- FOOT 05/23/2013 BRITNEY LERMA APRNA S 719.46 PAIN IN JOINT INVOLVING LOWER LEG 05/23/2013 TON LERMA APRN S 719.47 PAIN- FOOT 05/23/2013 TON LERMA APRN S 719.46 PAIN IN JOINT INVOLVING LOWER [...] SYMONE POST APRN 719.47 PAIN- FOOT 05/23/2013 RICHARD VAUGHN JEWELS 719.46 PAIN IN JOINT INVOLVING LOWER LEG 05/23/2013 RICHARD VAUGHN JEWELS 719.47 PAIN- FOOT 05/23/2013 RICHARD VAUGHN JEWELS 719.46 PAIN IN JOINT INVOLVING LOWER LEG 05/23/2013 RICHARD VAUGHN JEWELS 719.47 PAIN- FOOT 05/23/2013 RICHARDALFREDO VAUGHN JEWELS 719.46 PAIN IN JOINT INVOLVING LOWER LEG 05/23/2013 RICHARD VAUGHN JEWELS 719.47 PAIN- FOOT 06/09/2013 FRANKLYN HERNÁNDEZ MD Ot 558.9 NONINF GASTROENTERIT NEC 06/09/2013 FRANKLYN HERNÁNDEZ MD Ot 787.01 NAUSEA WITH VOMITING 10/06/2013 TON LERMA APRN S 692.6 POISON REBA 10/06/2013 TON LERMA APRN S 692.6 POISON REBA 10/06/2013 TON LERMA APRN 692.6 POISON REBA 10/06/2013 CATHERINE PERALES APRN 692.6 POISON REBA 10/06/2013 MARIA GUADALUPE DIRECT SERVICE WORKER, TON S 692.6 POISON REBA 10/06/2013 MARIA GUADALUPE DIRECT SERVICE WORKER, TON S 692.6 POISON REBA 10/06/2013 MARIA GUADALUPE DIRECT SERVICE WORKER, TON S 692.6 POISON REBA 10/06/2013 MARIA GUADALUPE DIRECT SERVICE WORKER, TON S 692.6 POISON REBA 10/06/2013 VELASQUEZ KAUR PSYD 692.6 POISON REBA 10/06/2013 JEWELS ROMANO DO K 692.6 POISON REBA 10/06/2013 VELASQUEZ KAUR PSYD 692.6 POISON REBA 10/06/2013 SYMONE POST APRN 692.6 POISON REBA 10/06/2013 RICHARD DIRECT SERVICE WORKER, JEWELS 692.6 POISON REBA 10/06/2013 RICHARD DIRECT SERVICE WORKER, JEWELS 692.6 POISON REBA 10/06/2013 RICHARD DIRECT SERVICE WORKER, JEWELS 692.6 POISON REBA 11/09/2013 MARIA GUADALUPE DIRECT SERVICE WORKER, TON S 787.91 DIARRHEA 11/09/2013 MARIA GUADALUPE DIRECT SERVICE WORKER, TON S 787.91 DIARRHEA 11/09/2013 CATHERINE PERALES APRN 787.91 DIARRHEA 11/09/2013 MARIA GUADALUPE DIRECT SERVICE WORKER, TON S 787.91 DIARRHEA 11/09/2013 MARIA GUADALUPE DIRECT SERVICE WORKER, TON S 787.91 DIARRHEA 11/09/2013 MARIA GUADALUPE DIRECT SERVICE WORKER, TON S 787.91 DIARRHEA 11/09/2013 MARIA GUADALUPE DIRECT SERVICE WORKER, TON S 787.91 DIARRHEA 11/09/2013 VELASQUEZ KAUR PSYD 787.91 DIARRHEA 11/09/2013 JEWELS ROMANO DO K 787.91 DIARRHEA 11/09/2013 VELASQUEZ KAUR PSYD 787.91 DIARRHEA 11/09/2013 SYMONE POST APRN 787.91 DIARRHEA 11/09/2013 RICHARD DIRECT SERVICE WORKER, JEWELS 787.91 DIARRHEA 11/09/2013 RICHARD DIRECT SERVICE WORKER, JEWELS 787.91 DIARRHEA 11/09/2013 RICHARD DIRECT SERVICE WORKER, JEWELS 787.91 DIARRHEA 11/29/2013 MARIA GUADALUPE DIRECT SERVICE WORKER, TON S 790.6 Liver Function Test, Abnormal 11/29/2013 MARIA GUADALUPE DIRECT SERVICE WORKER, TON S 790.6 Liver Function Test, Abnormal 11/29/2013 DIAZ VAUGHN, CATHERINE Walker 790.6 Liver Function Test, Abnormal 11/29/2013 MARIA GUADALUPE DIRECT SERVICE WORKER, TON S 790.6 Liver Function Test, Abnormal 11/29/2013 MARIA GUADALUPE DIRECT SERVICE WORKER, TON S 790.6 Liver Function Test, Abnormal 11/29/2013 MARIA GUADALUPE DIRECT SERVICE WORKER, TON S 790.6 Liver Function Test, Abnormal 11/29/2013 MARIA GUADALUPE DIRECT SERVICE WORKER, TON S 790.6 Liver Function Test, Abnormal 11/29/2013 VELASQUEZ KAUR PSYD ANN L 790.6 Liver Function Test, Abnormal 11/29/2013 JEWELS ROMANO DO 790.6 Liver Function Test, Abnormal 11/29/2013 VELASQUEZ KAUR PSYD L 790.6 Liver Function Test, Abnormal 11/29/2013 POST DIRECT SERVICE WORKER, SYMONE D 790.6 Liver Function Test, Abnormal 11/29/2013 RICHARD DIRECT SERVICE WORKER, JEWELS 790.6 Liver Function Test, Abnormal 11/29/2013 RICHARD DIRECT SERVICE WORKER, JEWELS 790.6 Liver Function Test, Abnormal 11/29/2013 RICHARD DIRECT SERVICE WORKER, JEWELS 790.6 Liver Function Test, Abnormal 12/14/2013 DIAZ VAUGHN, CATHERINE T 466.0 BRONCHITIS, ACUTE 12/14/2013 CATHERINE PERALES APRN 724.2 BACK PAIN, LOWER 12/14/2013 MARIA GUADALUPE DIRECT SERVICE WORKER, TON S 466.0 BRONCHITIS, ACUTE 12/14/2013 MARIA GUADALUPE DIRECT SERVICE WORKER, TON S 724.2 BACK PAIN, LOWER 12/14/2013 MARIA GUADALUPE DIRECT SERVICE WORKER, TON S 466.0 BRONCHITIS, ACUTE 12/14/2013 MARIA GUADALUPE DIRECT SERVICE WORKER, TON S 724.2 BACK PAIN, LOWER 12/14/2013 MARIA GUADALUPE DIRECT SERVICE WORKER, TON S 466.0 BRONCHITIS, ACUTE 12/14/2013 MARIA GUADALUPE DIRECT SERVICE WORKER, TON S 724.2 BACK PAIN, LOWER 12/14/2013 MARIA GUADALUPE DIRECT SERVICE WORKER, TON S 466.0 BRONCHITIS, ACUTE 12/14/2013 MARIA GUADALUPE DIRECT SERVICE WORKER, TON S 724.2 BACK PAIN, LOWER 12/14/2013 NATASHA PERALES, GERONIMO L 466.0 BRONCHITIS, ACUTE 12/14/2013 NATASHA PERALES, GERONIMO L 724.2 BACK PAIN, LOWER 12/14/2013 ROMANO DO, JEWELS K 466.0 BRONCHITIS, ACUTE 12/14/2013 ROMANO DO, JEWELS K 724.2 BACK PAIN, LOWER 12/14/2013 NATASHA PERALES, GERONIMO L 466.0 BRONCHITIS, ACUTE 12/14/2013 NATASHA PERALES, GERONIMO L 724.2 BACK PAIN, LOWER 12/14/2013 POST DIRECT SERVICE WORKERMAUREENON D 466.0 BRONCHITIS, ACUTE 12/14/2013 POST DIRECT SERVICE WORKER, SYMONE D 724.2 BACK PAIN, LOWER 12/14/2013 RICHARD DIRECT SERVICE WORKER, JEWELS 466.0 BRONCHITIS, ACUTE 12/14/2013 RICHARD DIRECT SERVICE WORKER, JEWELS 724.2 BACK PAIN, LOWER 12/14/2013 RICHARD DIRECT SERVICE WORKER, JEWELS 466.0 BRONCHITIS, ACUTE 12/14/2013 RICHARD DIRECT SERVICE WORKER, JEWELS 724.2 BACK PAIN, LOWER 12/14/2013 RICHARD DIRECT SERVICE WORKER, JEWELS 466.0 BRONCHITIS, ACUTE 12/14/2013 RICHARD DIRECT SERVICE WORKER, JEWELS 724.2 BACK PAIN, LOWER 12/29/2013 MARIA GUADALUPE DIRECT SERVICE WORKER, TON S 461.9 SINUSITIS ACUTE 12/29/2013 MARIA GUADALUPE DIRECT SERVICE WORKER, TON S 788.1 DYSURIA 12/29/2013 MARIA GUADALUPE DIRECT SERVICE WORKER, TON S 461.9 SINUSITIS ACUTE 12/29/2013 MARIA GUADALUPE DIRECT SERVICE WORKER, TON S 788.1 DYSURIA 12/29/2013 MARIA GUADALUPE DIRECT SERVICE WORKER, TON S 461.9 SINUSITIS ACUTE 12/29/2013 MARIA GUADALUPE DIRECT SERVICE WORKER, TON S 788.1 DYSURIA 12/29/2013 MARIA GUADALUPE DIRECT SERVICE WORKER, TON S 461.9 SINUSITIS ACUTE 12/29/2013 MARIA GUADALUPE DIRECT SERVICE WORKER, TON S 788.1 DYSURIA 12/29/2013 VELASQUEZ KAUR PSYD L 461.9 SINUSITIS ACUTE 12/29/2013 VELASQUEZ KAUR PSYD 788.1 DYSURIA 12/29/2013 JEWELS ROMANO DO 461.9 SINUSITIS ACUTE 12/29/2013 JEWELS ROMANO DO K 788.1 DYSURIA 12/29/2013 VELASQUEZ KAUR PSYD 461.9 SINUSITIS ACUTE 12/29/2013 VELASQUEZ KAUR PSYD 788.1 DYSURIA 12/29/2013 SYMONE POST APRN 461.9 SINUSITIS ACUTE 12/29/2013 POST SYMONE VAUGHN 788.1 DYSURIA 12/29/2013 RICHARD DIRECT SERVICE WORKER, JEWELS 461.9 SINUSITIS ACUTE 12/29/2013 RICHARD DIRECT SERVICE WORKER, JEWELS 788.1 DYSURIA 12/29/2013 RICHARD DIRECT SERVICE WORKER, JEWELS 461.9 SINUSITIS ACUTE 12/29/2013 RICHARD DIRECT SERVICE WORKER, JEWELS 788.1 DYSURIA 12/29/2013 RICHARD DIRECT SERVICE WORKER, JEWELS 461.9 SINUSITIS ACUTE 12/29/2013 RICHARD DIRECT SERVICE WORKER, JEWELS 788.1 DYSURIA 02/02/2014 MARIA GUADALUPEGARY VAUGHN, TON S 719.46 PAIN- KNEE 02/02/2014 MARIA GUADALUPEGARY VAUGHN, TON S 719.46 PAIN- KNEE 02/02/2014 VELASQUEZ KAUR PSYD 719.46 PAIN- KNEE 02/02/2014 JEWELS ROMANO DO K 719.46 PAIN- KNEE 02/02/2014 VELASQUEZ KAUR PSYD 719.46 PAIN- KNEE 02/02/2014 SYMONE POST APRN 719.46 PAIN- KNEE 02/02/2014 RICHARD DIRECT SERVICE WORKER, JEWELS 719.46 PAIN- KNEE 02/02/2014 RICHARD DIRECT SERVICE WORKER, JEWELS 719.46 PAIN- KNEE 02/02/2014 RICHARD DIRECT SERVICE WORKER, JEWELS 719.46 PAIN- KNEE 03/15/2014 VELASQUEZ KAUR PSYD 309.81 AN PTSD 03/15/2014 VELASQUEZ KAUR PSYD L 311 DEPRESSIVE DISORDER NOS 03/15/2014 JEWELS ROMANO DO 309.81 AN PTSD 03/15/2014 JEWELS ROAMNO DO 311 DEPRESSIVE DISORDER NOS 03/15/2014 VELASQUEZ KAUR PSYD L 309.81 AN PTSD 03/15/2014 VELASQUEZ KAUR PSYD ANN L 311 DEPRESSIVE DISORDER NOS 03/15/2014 SYMONE POST APRN 309.81 AN PTSD 03/15/2014 SYMONE POST APRN 311 DEPRESSIVE DISORDER NOS 03/15/2014 RICHARD DIRECT SERVICE WORKER, JEWELS 309.81 AN PTSD 03/15/2014 RICHARD DIRECT SERVICE WORKER, JEWELS 311 DEPRESSIVE DISORDER NOS 03/15/2014 RICHARD DIRECT SERVICE WORKER, JEWELS 309.81 AN PTSD 03/15/2014 RICHARD DIRECT SERVICE WORKER, JEWELS 311 DEPRESSIVE DISORDER NOS 03/15/2014 RICHARD DIRECT SERVICE WORKER, JEWELS 309.81 AN PTSD 03/15/2014 RICHARD DIRECT SERVICE WORKER, JEWELS 311 DEPRESSIVE DISORDER NOS 05/29/2014 SYMONE POST APRN V74.1 TB SCREENING 05/29/2014 RICHARD JEWELS VAUGHN V74.1 TB SCREENING 05/29/2014 RICHARDJEWELS FUENTES APRN V74.1 TB SCREENING 05/29/2014 RICHARD JEWELS VAUGHN V74.1 TB SCREENING 06/26/2014 Ot 722.4 06/26/2014 Ot 530.81 06/26/2014 Ot 574.20 06/26/2014 Ot V72.63 06/26/2014 Ot V72.81 06/26/2014 Ot V74.8 06/26/2014 MARJORIE STRONG APRN Ot 789.06 06/26/[address] JUDGE Ot 611.71 06/26/2014 TON LERMA [facility] Ot 719.46 06/28/2014 Ot 401.9 06/28/2014 Ot 717.7 06/28/2014 Ot 727.43 06/28/2014 Ot 733.92 06/28/2014 Ot V57.1 08/14/2014 JEWELS RAMOS APRN 278.00 OBESITY 08/14/2014 JEWELS RAMOS APRN 627.2 HOT FLASHES 02/23/2015 TON LERMA Ot R07.89 03/08/2015 KATELYN SHAH, PRIETO Alfredo Ot K20.9 ESOPHAGITIS, UNSPECIFIED 03/08/2015 KATELYN SHAH, PRIETO Alfredo Ot K25.9 GASTRIC ULCER, UNSP ACUTE OR CHRONIC, 03/08/2015 KATELYN SHAH, PRIETO Alfredo Ot K44.9 DIAPHRAGMATIC HERNIA WITHOUT OBSTRUCTION 03/16/[address] JUDGE Ot R07.89 05/23/[address] JUDGE Ot R07.89 OTHER CHEST PAIN 06/14/2015 KATELYN SHAH, PRIETO Alfredo Ot Z01.818 06/14/2015 KATELYN SHAH, PRIETO Alfredo Ot Z01.818 06/14/2015 Ot R07.89 07/11/[address] JUDGE Ot K52.9 09/14/[address] JUDGE Ot K52.9 NONINFECTIVE GASTROENTERITIS AND COLITIS 09/14/[address] JUDGE Ot 719.46 JOINT PAIN-L/LEG 10/12/[address] JUDGE Ot 719.46 JOINT PAIN-L/LEG 10/12/2015 TON LERMAP Ot K52.9 NONINFECTIVE GASTROENTERITIS AND COLITIS 03/24/2016 KATELYN SHAH, PRIETO Alfredo Ot Z01.818 ENCOUNTER FOR OTHER PREPROCEDURAL EXAMIN 03/24/2016 PRIETO ZEPEDA MD Ot Z01.818 ENCOUNTER FOR OTHER PREPROCEDURAL EXAMIN 03/24/2016 Ot R07.89 OTHER CHEST PAIN 03/25/[address] JUDGE Ot R10.30 LOWER ABDOMINAL PAIN, UNSPECIFIED 04/23/2016 TON LERMAP Ot R10.30 LOWER ABDOMINAL PAIN, UNSPECIFIED 12/27/2016 MAKI SHAH, RUSTY Shaw Ot J44.9 CHRONIC OBSTRUCTIVE PULMONARY DISEASE, U 12/27/2016 RUSTY GAMBINO MD Ot R20.0 ANESTHESIA OF SKIN 12/27/2016 RUSTY GAMBINO MD Ot R20.2 PARESTHESIA OF SKIN 12/27/2016 RUSTY GAMBINO MD Ot Z98.51 TUBAL LIGATION STATUS 12/27/2016 KATELYN SHAH, PRIETO Alfredo Ot Z01.818 ENCOUNTER FOR OTHER PREPROCEDURAL EXAMIN 12/27/2016 PRIETO ZEPEDA MD Ot Z01.818 ENCOUNTER FOR OTHER PREPROCEDURAL EXAMIN 12/27/2016 Ot R07.89 OTHER CHEST PAIN 12/27/[address] JUDGE Ot R10.30 LOWER ABDOMINAL PAIN, UNSPECIFIED 12/31/2016 KATELYN SHAH, PRIETO Alfredo Ot Z01.818 ENCOUNTER FOR OTHER PREPROCEDURAL EXAMIN 12/31/2016 KATELYN SHAH, PRIETO Alfredo Ot Z01.818 ENCOUNTER FOR OTHER PREPROCEDURAL EXAMIN 12/31/2016 Ot R07.89 OTHER CHEST PAIN 12/31/[address] JUDGE Ot R10.30 LOWER ABDOMINAL PAIN, UNSPECIFIED 01/02/2017 KATELYN SHAH, PRIETO Alfredo Ot Z01.818 ENCOUNTER FOR OTHER PREPROCEDURAL EXAMIN 01/02/2017 KATELYN SHAH, PRIETO Alfredo Ot Z01.818 ENCOUNTER FOR OTHER PREPROCEDURAL EXAMIN 01/02/2017 Ot R07.89 OTHER CHEST PAIN 01/02/[address] JUDGE Ot R10.30 LOWER ABDOMINAL PAIN, UNSPECIFIED 01/14/[address] JUDGE Ot R60.9 EDEMA, UNSPECIFIED 01/19/[address] JUDGE Ot K52.9 NONINFECTIVE GASTROENTERITIS AND COLITIS 01/19/[address] JUDGE Ot K52.9 NONINFECTIVE GASTROENTERITIS AND COLITIS 01/21/2017 SABRA, VINCE L CIRCUIT COURT JUDGE Ot E78.2 MIXED HYPERLIPIDEMIA 01/21/2017 BAIMA, VINCE L CIRCUIT COURT JUDGE Ot I10 ESSENTIAL (PRIMARY) HYPERTENSION 01/21/2017 BAIMA, VINCE L CIRCUIT COURT JUDGE Ot I73.9 PERIPHERAL VASCULAR DISEASE, UNSPECIFIED 01/21/2017 BAIMA, VINCE L CIRCUIT COURT JUDGE Ot R00.2 PALPITATIONS 01/21/2017 BAIMA, VINCE L CIRCUIT COURT JUDGE Ot R06.09 OTHER FORMS OF DYSPNEA 01/21/2017 BAIMA, VINCE L CIRCUIT COURT JUDGE Ot R07.9 CHEST PAIN, UNSPECIFIED 01/21/2017 BAIMA, VINCE L CIRCUIT COURT JUDGE Ot E78.2 MIXED HYPERLIPIDEMIA 01/21/2017 BAIMA, VINCE L CIRCUIT COURT JUDGE Ot I10 ESSENTIAL (PRIMARY) HYPERTENSION 01/21/2017 BAIMA, VINCE L CIRCUIT COURT JUDGE Ot I73.9 PERIPHERAL VASCULAR DISEASE, UNSPECIFIED 01/21/2017 BAIMA, VINCE L CIRCUIT COURT JUDGE Ot R00.2 PALPITATIONS 01/21/2017 BAIMA, VINCE L CIRCUIT COURT JUDGE Ot R06.09 OTHER FORMS OF DYSPNEA 01/21/2017 BAIMA, VINCE L CIRCUIT COURT JUDGE Ot R07.9 CHEST PAIN, UNSPECIFIED 01/28/2017 BAIMA, VINCE L CIRCUIT COURT JUDGE Ot E78.2 MIXED HYPERLIPIDEMIA 01/28/2017 BAIMA, VINCE L CIRCUIT COURT JUDGE Ot I10 ESSENTIAL (PRIMARY) HYPERTENSION 01/28/2017 BAIMA, VINCE L CIRCUIT COURT JUDGE Ot I73.9 PERIPHERAL VASCULAR DISEASE, UNSPECIFIED 01/28/2017 BAIMA, VINCE L CIRCUIT COURT JUDGE Ot R00.2 PALPITATIONS 01/28/2017 BAIMA, VINCE L CIRCUIT COURT JUDGE Ot R06.09 OTHER FORMS OF DYSPNEA 01/28/2017 BAIMA, VINCE L CIRCUIT COURT JUDGE Ot R07.9 CHEST PAIN, UNSPECIFIED 01/28/2017 BAIMA, VINCE L CIRCUIT COURT JUDGE Ot E78.2 MIXED HYPERLIPIDEMIA 01/28/2017 BAIMA, VINCE L CIRCUIT COURT JUDGE Ot I10 ESSENTIAL (PRIMARY) HYPERTENSION 01/28/2017 BAIMA, VINCE L CIRCUIT COURT JUDGE Ot I73.9 PERIPHERAL VASCULAR DISEASE, UNSPECIFIED 01/28/2017 BAIMA, VINCE L CIRCUIT COURT JUDGE Ot R00.2 PALPITATIONS 01/28/2017 BAIMA, VINCE L CIRCUIT COURT JUDGE Ot R06.09 OTHER FORMS OF DYSPNEA 01/28/2017 BAIMA, VINCE L CIRCUIT COURT JUDGE Ot R07.9 CHEST PAIN, UNSPECIFIED 02/10/2017 KATLEYN SHAH, PRIETO Alfredo Ot Z01.818 ENCOUNTER FOR OTHER PREPROCEDURAL EXAMIN 02/10/2017 KATELYN SHAH, PRIETO Alfredo Ot Z01.818 ENCOUNTER FOR OTHER PREPROCEDURAL EXAMIN 02/10/2017 Ot R07.89 OTHER CHEST PAIN 02/10/[address] JUDGE Ot K52.9 NONINFECTIVE GASTROENTERITIS AND COLITIS 02/10/[address] JUDGE Ot R10.30 LOWER ABDOMINAL PAIN, UNSPECIFIED 02/10/[address] JUDGE Ot R60.9 EDEMA, UNSPECIFIED 02/10/2017 BAIMA, VINCE L CIRCUIT COURT JUDGE Ot E78.2 MIXED HYPERLIPIDEMIA 02/10/2017 BAIMA, VINCE L CIRCUIT COURT JUDGE Ot I10 ESSENTIAL (PRIMARY) HYPERTENSION 02/10/2017 BAIMA, VINCE L CIRCUIT COURT JUDGE Ot I73.9 PERIPHERAL VASCULAR DISEASE, UNSPECIFIED 02/10/2017 BAIMA, VINCE L CIRCUIT COURT JUDGE Ot R00.2 PALPITATIONS 02/10/2017 BAIMA, VINCE L CIRCUIT COURT JUDGE Ot R06.09 OTHER FORMS OF DYSPNEA 02/10/2017 BAIMA, VINCE L CIRCUIT COURT JUDGE Ot R07.9 CHEST PAIN, UNSPECIFIED 02/10/2017 BAIMA, VINCE L CIRCUIT COURT JUDGE Ot E78.2 MIXED HYPERLIPIDEMIA 02/10/2017 BAIMA, VINCE L CIRCUIT COURT JUDGE Ot I10 ESSENTIAL (PRIMARY) HYPERTENSION 02/10/2017 BAIMA, VINCE L CIRCUIT COURT JUDGE Ot I73.9 PERIPHERAL VASCULAR DISEASE, UNSPECIFIED 02/10/2017 BAIMA, VINCE L CIRCUIT COURT JUDGE Ot R00.2 PALPITATIONS 02/10/2017 BAIMA, VINCE L CIRCUIT COURT JUDGE Ot R06.09 OTHER FORMS OF DYSPNEA 02/10/2017 BAIMA, VINCE L CIRCUIT COURT JUDGE Ot R07.9 CHEST PAIN, UNSPECIFIED 02/10/2017 MARJORIE STRONG DIRECT SERVICE WORKER Ot 789.06 ABDOMINAL PAIN, EPIGASTRIC 02/10/[address] JUDGE Ot 611.71 MASTODYNIA 02/10/[address] JUDGE Ot 719.46 JOINT PAIN-L/LEG 02/10/[address] JUDGE Ot R60.9 EDEMA, UNSPECIFIED 02/10/2017 BAIMA, VINCE L CIRCUIT COURT JUDGE Ot E78.2 MIXED HYPERLIPIDEMIA 02/10/2017 BAIMA, VINCE L CIRCUIT COURT JUDGE Ot I10 ESSENTIAL (PRIMARY) HYPERTENSION 02/10/2017 BAIMA, VINCE L CIRCUIT COURT JUDGE Ot I73.9 PERIPHERAL VASCULAR DISEASE, UNSPECIFIED 02/10/2017 BAIMA, VINCE L CIRCUIT COURT JUDGE Ot R00.2 PALPITATIONS 02/10/2017 BAIMA, VINCE L CIRCUIT COURT JUDGE Ot R06.09 OTHER FORMS OF DYSPNEA 02/10/2017 BAIMA, VINCE L CIRCUIT COURT JUDGE Ot R07.9 CHEST PAIN, UNSPECIFIED 02/10/2017 BAIMA, VINCE L CIRCUIT COURT JUDGE Ot E78.2 MIXED HYPERLIPIDEMIA 02/10/2017 BAIMA, VINCE L CIRCUIT COURT JUDGE Ot I10 ESSENTIAL (PRIMARY) HYPERTENSION 02/10/2017 BAIMA, VINCE L CIRCUIT COURT JUDGE Ot I73.9 PERIPHERAL VASCULAR DISEASE, UNSPECIFIED 02/10/2017 BAIMA, VINCE L CIRCUIT COURT JUDGE Ot R00.2 PALPITATIONS 02/10/2017 BAIMA, VINCE L CIRCUIT COURT JUDGE Ot R06.09 OTHER FORMS OF DYSPNEA 02/10/2017 BAIMA, VINCE L CIRCUIT COURT JUDGE Ot R07.9 CHEST PAIN, UNSPECIFIED 02/10/2017 MARJORIE STRONG Sayda DIRECT SERVICE WORKER Ot 789.06 ABDOMINAL PAIN, EPIGASTRIC 02/10/2017 DERECK ALVAREZ Ronna CIRCUIT COURT JUDGE Ot 611.71 MASTODYNIA 02/10/[address] JUDGE Ot 719.46 JOINT PAIN-L/LEG 02/10/[address] JUDGE Ot R60.9 EDEMA, UNSPECIFIED 02/10/2017 BAIMA, VINCE L CIRCUIT COURT JUDGE Ot E78.2 MIXED HYPERLIPIDEMIA 02/10/2017 BAIMA, VINCE L CIRCUIT COURT JUDGE Ot I10 ESSENTIAL (PRIMARY) HYPERTENSION 02/10/2017 BAIMA, VINCE L CIRCUIT COURT JUDGE Ot I73.9 PERIPHERAL VASCULAR DISEASE, UNSPECIFIED 02/10/2017 BAIMA, VINCE L CIRCUIT COURT JUDGE Ot R00.2 PALPITATIONS 02/10/2017 BAIMA, VINCE L CIRCUIT COURT JUDGE Ot R06.09 OTHER FORMS OF DYSPNEA 02/10/2017 BAIMA, VINCE L CIRCUIT COURT JUDGE Ot R07.9 CHEST PAIN, UNSPECIFIED 02/10/2017 BAIMA, VINCE L CIRCUIT COURT JUDGE Ot E78.2 MIXED HYPERLIPIDEMIA 02/10/2017 BAIMA, VINCE L CIRCUIT COURT JUDGE Ot I10 ESSENTIAL (PRIMARY) HYPERTENSION 02/10/2017 BAIMA, VINCE L CIRCUIT COURT JUDGE Ot I73.9 PERIPHERAL VASCULAR DISEASE, UNSPECIFIED 02/10/2017 BAIMA, VINCE L CIRCUIT COURT JUDGE Ot R00.2 PALPITATIONS 02/10/2017 BAIMA, VINCE L CIRCUIT COURT JUDGE Ot R06.09 OTHER FORMS OF DYSPNEA 02/10/2017 BAIMA, VINCE L CIRCUIT COURT JUDGE Ot R07.9 CHEST PAIN, UNSPECIFIED 02/10/2017 BAIMA, VINCE L CIRCUIT COURT JUDGE Ot E78.2 MIXED HYPERLIPIDEMIA 02/10/2017 BAIMA, VINCE L CIRCUIT COURT JUDGE Ot I10 ESSENTIAL (PRIMARY) HYPERTENSION 02/10/2017 BAIMA, VINCE L CIRCUIT COURT JUDGE Ot I73.9 PERIPHERAL VASCULAR DISEASE, UNSPECIFIED 02/10/2017 BAIMA, VINCE L CIRCUIT COURT JUDGE Ot R00.2 PALPITATIONS 02/10/2017 BAIMA, VINCE L CIRCUIT COURT JUDGE Ot R06.09 OTHER FORMS OF DYSPNEA 02/10/2017 BAIMA, VINCE L CIRCUIT COURT JUDGE Ot R07.9 CHEST PAIN, UNSPECIFIED 02/18/2017 BAIMA, VINCE L CIRCUIT COURT JUDGE Ot E78.2 MIXED HYPERLIPIDEMIA 02/18/2017 BAIMA, VINCE L CIRCUIT COURT JUDGE Ot I10 ESSENTIAL (PRIMARY) HYPERTENSION 02/18/2017 BAIMA, VINCE L CIRCUIT COURT JUDGE Ot I73.9 PERIPHERAL VASCULAR DISEASE, UNSPECIFIED 02/18/2017 BAIMA, VINCE L CIRCUIT COURT JUDGE Ot R00.2 PALPITATIONS 02/18/2017 BAIMA, VINCE L CIRCUIT COURT JUDGE Ot R06.09 OTHER FORMS OF DYSPNEA 02/18/2017 BAIMA, VINCE L CIRCUIT COURT JUDGE Ot R07.9 CHEST PAIN, UNSPECIFIED 03/31/2017 BAIMA, VINCE L CIRCUIT COURT JUDGE Ot E78.2 MIXED HYPERLIPIDEMIA 03/31/2017 BAIMA, VINCE L CIRCUIT COURT JUDGE Ot I10 ESSENTIAL (PRIMARY) HYPERTENSION 03/31/2017 BAIMA, VINCE L CIRCUIT COURT JUDGE Ot I73.9 PERIPHERAL VASCULAR DISEASE, UNSPECIFIED 03/31/2017 BAIMA, VINCE L CIRCUIT COURT JUDGE Ot R00.2 PALPITATIONS 03/31/2017 BAIMA, VINCE L CIRCUIT COURT JUDGE Ot R06.09 OTHER FORMS OF DYSPNEA 03/31/2017 BAIMA, VINCE L CIRCUIT COURT JUDGE Ot R07.9 CHEST PAIN, UNSPECIFIED 03/31/[address] JUDGE Ot R60.9 EDEMA, UNSPECIFIED 03/31/2017 BAIMA, VINCE L CIRCUIT COURT JUDGE Ot E78.2 MIXED HYPERLIPIDEMIA 03/31/2017 BAIMA, VINCE L CIRCUIT COURT JUDGE Ot I10 ESSENTIAL (PRIMARY) HYPERTENSION 03/31/2017 BAIMA, VINCE L CIRCUIT COURT JUDGE Ot I73.9 PERIPHERAL VASCULAR DISEASE, UNSPECIFIED 03/31/2017 BAIMA, VINCE L CIRCUIT COURT JUDGE Ot R00.2 PALPITATIONS 03/31/2017 BAIMA, VINCE L CIRCUIT COURT JUDGE Ot R06.09 OTHER FORMS OF DYSPNEA 03/31/2017 BAIMA, VINCE L CIRCUIT COURT JUDGE Ot R07.9 CHEST PAIN, UNSPECIFIED 03/31/2017 BAIMA, VINCE L CIRCUIT COURT JUDGE Ot E78.2 MIXED HYPERLIPIDEMIA 03/31/2017 BAIMA, VINCE L CIRCUIT COURT JUDGE Ot I10 ESSENTIAL (PRIMARY) HYPERTENSION 03/31/2017 BAIMA, VINCE L CIRCUIT COURT JUDGE Ot I73.9 PERIPHERAL VASCULAR DISEASE, UNSPECIFIED 03/31/2017 BAIMA, VINCE L CIRCUIT COURT JUDGE Ot R00.2 PALPITATIONS 03/31/2017 BAIMA, VINCE L CIRCUIT COURT JUDGE Ot R06.09 OTHER FORMS OF DYSPNEA 03/31/2017 BAIMA, VINCE L CIRCUIT COURT JUDGE Ot R07.9 CHEST PAIN, UNSPECIFIED 07/17/2017 BAIMA, VINCE L CIRCUIT COURT JUDGE Ot E78.2 MIXED HYPERLIPIDEMIA 07/17/2017 BAIMA, VINCE L CIRCUIT COURT JUDGE Ot I10 ESSENTIAL (PRIMARY) HYPERTENSION 07/17/2017 BAIMA, VINCE L CIRCUIT COURT JUDGE Ot I73.9 PERIPHERAL VASCULAR DISEASE, UNSPECIFIED 07/17/2017 BAIMA, VINCE L CIRCUIT COURT JUDGE Ot R00.2 PALPITATIONS 07/17/2017 BAIMA, VINCE L [facility] COURT JUDGE Ot R06.09 OTHER FORMS OF DYSPNEA 07/17/2017 BAIMA, VINCE L [facility] COURT JUDGE Ot R07.9 CHEST PAIN, UNSPECIFIED 07/17/2017 BAIMA, VINCE L [facility] COURT JUDGE Ot E78.2 MIXED HYPERLIPIDEMIA 07/17/2017 BAIMA, VINCE L CIRCUIT COURT JUDGE Ot I10 ESSENTIAL (PRIMARY) HYPERTENSION 07/17/2017 BAIMA, VINCE L CIRCUIT COURT JUDGE Ot I73.9 PERIPHERAL VASCULAR DISEASE, UNSPECIFIED 07/17/2017 BAIMA, VINCE L CIRCUIT COURT JUDGE Ot R00.2 PALPITATIONS 07/17/2017 BAIMA, VINCE L [facility] COURT JUDGE Ot R06.09 OTHER FORMS OF DYSPNEA 07/17/2017 BAIMA, VINCE L [facility] COURT JUDGE Ot R07.9 CHEST PAIN, UNSPECIFIED 07/17/2017 BAIMA, VINCE L CIRCUIT COURT JUDGE Ot E78.2 MIXED HYPERLIPIDEMIA 07/17/2017 BAIMA, VINCE L CIRCUIT COURT JUDGE Ot I10 ESSENTIAL (PRIMARY) HYPERTENSION 07/17/2017 BAIMA, VINCE L [facility] COURT JUDGE Ot I73.9 PERIPHERAL VASCULAR DISEASE, UNSPECIFIED 07/17/2017 BAIMA, VINCE L CIRCUIT COURT JUDGE Ot R00.2 PALPITATIONS 07/17/2017 BAIMA, VINCE L [facility] COURT JUDGE Ot R06.09 OTHER FORMS OF DYSPNEA 07/17/2017 BAIMA, VINCE L CIRCUIT COURT JUDGE Ot R07.9 CHEST PAIN, UNSPECIFIED 07/17/[address] JUDGE Ot R60.9 EDEMA, UNSPECIFIED 07/17/[address] JUDGE Ot K52.9 NONINFECTIVE GASTROENTERITIS AND COLITIS 07/17/2017 MARIA GUADALUPE, TON CIRCUIT COURT JUDGE Ot R60.9 EDEMA, UNSPECIFIED 07/17/2017 BAIMA, VINCE L CIRCUIT COURT JUDGE Ot E78.2 MIXED HYPERLIPIDEMIA 07/17/2017 BAIMA, VINCE L CIRCUIT COURT JUDGE Ot I10 ESSENTIAL (PRIMARY) HYPERTENSION 07/17/2017 BAIMA, VINCE L [facility] COURT JUDGE Ot I73.9 PERIPHERAL VASCULAR DISEASE, UNSPECIFIED 07/17/2017 BAIMA, VINCE L CIRCUIT COURT JUDGE Ot R00.2 PALPITATIONS 07/17/2017 BAIMA, VINCE L CIRCUIT COURT JUDGE Ot R06.09 OTHER FORMS OF DYSPNEA 07/17/2017 BAIMA, VINCE L [facility] COURT JUDGE Ot R07.9 CHEST PAIN, UNSPECIFIED 07/17/2017 BAIMA, VINCE L [facility] COURT JUDGE Ot E78.2 MIXED HYPERLIPIDEMIA 07/17/2017 BAIMA, VINCE L [facility] COURT JUDGE Ot I10 ESSENTIAL (PRIMARY) HYPERTENSION 07/17/2017 BAIMA, VINCE L [facility] COURT JUDGE Ot I73.9 PERIPHERAL VASCULAR DISEASE, UNSPECIFIED 07/17/2017 BAIMA, VINCE L [facility] COURT JUDGE Ot R00.2 PALPITATIONS 07/17/2017 BAIMA, VINCE L [facility] COURT JUDGE Ot R06.09 OTHER FORMS OF DYSPNEA 07/17/2017 BAIMA, VINCE L [facility] COURT JUDGE Ot R07.9 CHEST PAIN, UNSPECIFIED 07/17/2017 BAIMA, VINCE L [facility] COURT JUDGE Ot E78.2 MIXED HYPERLIPIDEMIA 07/17/2017 BAIMA, VINCE L CIRCUIT COURT JUDGE Ot I10 ESSENTIAL (PRIMARY) HYPERTENSION 07/17/2017 BAIMA, VINCE L CIRCUIT COURT JUDGE Ot I73.9 PERIPHERAL VASCULAR DISEASE, UNSPECIFIED 07/17/2017 BAIMA, VINCE L CIRCUIT COURT JUDGE Ot R00.2 PALPITATIONS 07/17/2017 BAIMA, VINCE L [facility] COURT JUDGE Ot R06.09 OTHER FORMS OF DYSPNEA 07/17/2017 BAIMA, VINCE L CIRCUIT COURT JUDGE Ot R07.9 CHEST PAIN, UNSPECIFIED 09/30/2017 KATELYN SHAH, PRIETO Alfredo Ot Z01.818 ENCOUNTER FOR OTHER PREPROCEDURAL EXAMIN 09/30/2017 KATELYN SHAH, PRIETO Alfredo Ot Z01.818 ENCOUNTER FOR OTHER PREPROCEDURAL EXAMIN 09/30/2017 Ot R07.89 OTHER CHEST PAIN 09/30/[address] JUDGE Ot R10.30 LOWER ABDOMINAL PAIN, UNSPECIFIED 09/30/[address] JUDGE Ot R60.9 EDEMA, UNSPECIFIED 09/30/2017 BAIMA, VINCE L CIRCUIT COURT JUDGE Ot E78.2 MIXED HYPERLIPIDEMIA 09/30/2017 BAIMA, VINCE L CIRCUIT COURT JUDGE Ot I10 ESSENTIAL (PRIMARY) HYPERTENSION 09/30/2017 BAIMA, VINCE L [facility] COURT JUDGE Ot I73.9 PERIPHERAL VASCULAR DISEASE, UNSPECIFIED 09/30/2017 BAIMA, VINCE L CIRCUIT COURT JUDGE Ot R00.2 PALPITATIONS 09/30/2017 BAIMA, VINCE L [facility] COURT JUDGE Ot R06.09 OTHER FORMS OF DYSPNEA 09/30/2017 BAIMA, VINCE L CIRCUIT COURT JUDGE Ot R07.9 CHEST PAIN, UNSPECIFIED 09/30/2017 BAIMA, VINCE L CIRCUIT COURT JUDGE Ot E78.2 MIXED HYPERLIPIDEMIA 09/30/2017 BAIMA, VINCE L CIRCUIT COURT JUDGE Ot I10 ESSENTIAL (PRIMARY) HYPERTENSION 09/30/2017 BAIMA, VINCE L CIRCUIT COURT JUDGE Ot I73.9 PERIPHERAL VASCULAR DISEASE, UNSPECIFIED 09/30/2017 BAIMA, VINCE L CIRCUIT COURT JUDGE Ot R00.2 PALPITATIONS 09/30/2017 BAIMA, VINCE L CIRCUIT COURT JUDGE Ot R06.09 OTHER FORMS OF DYSPNEA 09/30/2017 BAIMA, VINCE L CIRCUIT COURT JUDGE Ot R07.9 CHEST PAIN, UNSPECIFIED 09/30/2017 BAIMA, VINCE L CIRCUIT COURT JUDGE Ot E78.2 MIXED HYPERLIPIDEMIA 09/30/2017 BAIMA, VINCE L CIRCUIT COURT JUDGE Ot I10 ESSENTIAL (PRIMARY) HYPERTENSION 09/30/2017 BAIMA, VINCE L CIRCUIT COURT JUDGE Ot I73.9 PERIPHERAL VASCULAR DISEASE, UNSPECIFIED 09/30/2017 BAIMA, VINCE L CIRCUIT COURT JUDGE Ot R00.2 PALPITATIONS 09/30/2017 BAIMA, VINCE L CIRCUIT COURT JUDGE Ot R06.09 OTHER FORMS OF DYSPNEA 09/30/2017 BAIMA, VINCE L CIRCUIT COURT JUDGE Ot R07.9 CHEST PAIN, UNSPECIFIED 09/30/2017 KATELYN SHAH, PRIETO Alfredo Ot Z01.818 ENCOUNTER FOR OTHER PREPROCEDURAL EXAMIN 09/30/2017 PRIETO ZEPEDA MD Ot Z01.818 ENCOUNTER FOR OTHER PREPROCEDURAL EXAMIN 09/30/2017 Ot R07.89 OTHER CHEST PAIN 09/30/[address] JUDGE Ot R10.30 LOWER ABDOMINAL PAIN, UNSPECIFIED 09/30/[address] JUDGE Ot R60.9 EDEMA, UNSPECIFIED 09/30/2017 BAIMA, VINCE L CIRCUIT COURT JUDGE Ot E78.2 MIXED HYPERLIPIDEMIA 09/30/2017 BAIMA, VINCE L CIRCUIT COURT JUDGE Ot I10 ESSENTIAL (PRIMARY) HYPERTENSION 09/30/2017 BAIMA, VINCE L CIRCUIT COURT JUDGE Ot I73.9 PERIPHERAL VASCULAR DISEASE, UNSPECIFIED 09/30/2017 BAIMA, VINCE L CIRCUIT COURT JUDGE Ot R00.2 PALPITATIONS 09/30/2017 BAIMA, VINCE L CIRCUIT COURT JUDGE Ot R06.09 OTHER FORMS OF DYSPNEA 09/30/2017 BAIMA, VINCE L CIRCUIT COURT JUDGE Ot R07.9 CHEST PAIN, UNSPECIFIED 09/30/2017 BAIMA, VINCE L CIRCUIT COURT JUDGE Ot E78.2 MIXED HYPERLIPIDEMIA 09/30/2017 BAIMA, VINCE L CIRCUIT COURT JUDGE Ot I10 ESSENTIAL (PRIMARY) HYPERTENSION 09/30/2017 BAIMA, VINCE L CIRCUIT COURT JUDGE Ot I73.9 PERIPHERAL VASCULAR DISEASE, UNSPECIFIED 09/30/2017 BAIMA, VINCE L CIRCUIT COURT JUDGE Ot R00.2 PALPITATIONS 09/30/2017 BAIMA, VINCE L CIRCUIT COURT JUDGE Ot R06.09 OTHER FORMS OF DYSPNEA 09/30/2017 BAIMA, VINCE L CIRCUIT COURT JUDGE Ot R07.9 CHEST PAIN, UNSPECIFIED 09/30/2017 BAIMA, VINCE L CIRCUIT COURT JUDGE Ot E78.2 MIXED HYPERLIPIDEMIA 09/30/2017 BAIMA, VINCE L CIRCUIT COURT JUDGE Ot I10 ESSENTIAL (PRIMARY) HYPERTENSION 09/30/2017 BAIMA, VINCE L CIRCUIT COURT JUDGE Ot I73.9 PERIPHERAL VASCULAR DISEASE, UNSPECIFIED 09/30/2017 BAIMA, VINCE L CIRCUIT COURT JUDGE Ot R00.2 PALPITATIONS 09/30/2017 BAIMA, VINCE L CIRCUIT COURT JUDGE Ot R06.09 OTHER FORMS OF DYSPNEA 09/30/2017 BAIMA, VINCE L CIRCUIT COURT JUDGE Ot R07.9 CHEST PAIN, UNSPECIFIED 10/01/2017 ROSAS DO, TIMOTHY Ot E78.00 PURE HYPERCHOLESTEROLEMIA, UNSPECIFIED 10/01/2017 ROSAS DO, TIMOTHY Ot E83.42 HYPOMAGNESEMIA 10/01/2017 ROSAS DO, TIMOTHY Ot E83.51 HYPOCALCEMIA 10/01/2017 ALISON DO, TIMOTHY Ot E87.6 HYPOKALEMIA 10/01/2017 ALISON OTTO TIMOTHY Ot F15.90 OTHER STIMULANT USE, UNSPECIFIED, UNCOMP 10/01/2017 ALISON DO, TIMOTHY Ot I10 ESSENTIAL (PRIMARY) HYPERTENSION 10/01/2017 ALISON DO, TIMOTHY Ot R42 DIZZINESS AND GIDDINESS 10/01/2017 ALISON DO, TIMOTHY Ot R53.1 WEAKNESS 10/01/2017 ALISON DO, TIMOTHY Ot R82.99 OTHER ABNORMAL FINDINGS IN URINE 10/01/2017 ALISON OTTO TIMOTHY Ot R94.8 ABNORMAL RESULTS OF FUNCTION STUDIES OF 10/01/2017 ALISON OTTO TIMOTHY Ot Z79.899 OTHER CARE HOME (CURRENT) DRUG THERAPY 10/01/2017 ALISON OTTO TIMOTHY Ot Z87.891 PERSONAL HISTORY OF NICOTINE DEPENDENCE 11/03/2017 ELOY ZAIDI R DIRECT SERVICE WORKER Ot K76.0 FATTY (CHANGE OF) LIVER, NOT ELSEWHERE C 11/03/2017 ELOY ZAIDI R DIRECT SERVICE WORKER Ot Z90.49 ACQUIRED ABSENCE OF OTHER SPECIFIED PART 11/08/2017 ELOY ZAIDI R DIRECT SERVICE WORKER Ot K76.0 FATTY (CHANGE OF) LIVER, NOT ELSEWHERE C 11/08/2017 ELOY ZAIDI R DIRECT SERVICE WORKER Ot Z90.49 ACQUIRED ABSENCE OF OTHER SPECIFIED PART 11/17/2017 RADHA ZAIDIELE R DIRECT SERVICE WORKER Ot K76.0 FATTY (CHANGE OF) LIVER, NOT ELSEWHERE C 11/17/2017 ZAIDIRADHA DiazELE R DIRECT SERVICE WORKER Ot Z90.49 ACQUIRED ABSENCE OF OTHER SPECIFIED PART 11/17/2017 ELOY ZAIDI R DIRECT SERVICE WORKER Ot K76.0 FATTY (CHANGE OF) LIVER, NOT ELSEWHERE C 11/17/2017 ELOY ZAIDI R DIRECT SERVICE WORKER Ot Z90.49 ACQUIRED ABSENCE OF OTHER SPECIFIED PART 11/18/2017 ELOY ZAIDI R DIRECT SERVICE WORKER Ot N28.89 OTHER SPECIFIED DISORDERS OF KIDNEY AND 11/18/2017 ELOY ZAIDI R DIRECT SERVICE WORKER Ot K76.0 FATTY (CHANGE OF) LIVER, NOT ELSEWHERE C 11/18/2017 RADHA ZAIDIELE R DIRECT SERVICE WORKER Ot Z90.49 ACQUIRED ABSENCE OF OTHER SPECIFIED PART 11/19/2017 Ot R07.89 OTHER CHEST PAIN 11/19/2017 CORY SHAH, KATHERIN Walker Ot E78.00 PURE HYPERCHOLESTEROLEMIA, UNSPECIFIED 11/19/2017 KATHERIN RAY MD Ot E83.42 HYPOMAGNESEMIA 11/19/2017 KATHERIN RAY MD Ot F12.10 CANNABIS ABUSE, UNCOMPLICATED 11/19/2017 KATHERIN RAY MD Ot F14.10 COCAINE ABUSE, UNCOMPLICATED 11/19/2017 KATHERIN RAY MD Ot F15.10 OTHER STIMULANT ABUSE, UNCOMPLICATED 11/19/2017 KATHERIN RAY MD Ot I10 ESSENTIAL (PRIMARY) HYPERTENSION 11/19/2017 KATHERIN RAY MD Ot J44.9 CHRONIC OBSTRUCTIVE PULMONARY DISEASE, U 11/19/2017 KATHERIN RAY MD Ot N17.9 ACUTE KIDNEY FAILURE, UNSPECIFIED 11/19/2017 KATHERIN RAY MD, Ot N39.0 URINARY TRACT INFECTION, SITE NOT SPECIF 11/19/2017 KATHERIN RAY MD Ot R03.1 NONSPECIFIC LOW BLOOD-PRESSURE READING 11/19/2017 KATHERIN RAY MD, Ot R42 DIZZINESS AND GIDDINESS 11/19/2017 KATHERIN RAY MD, Ot Z79.51 CAKE PULLER (CURRENT) USE OF INHALED STERO 11/19/2017 KATHERIN RAY MD Ot Z79.52 CAKE PULLER (CURRENT) USE OF SYSTEMIC STER 11/19/2017 KATHERIN RAY MD, Ot Z87.19 PERSONAL HISTORY OF OTHER DISEASES OF TH 11/19/2017 KATHERIN RAY MD Ot Z87.891 PERSONAL HISTORY OF NICOTINE DEPENDENCE 11/19/2017 KATHERIN RAY MD Ot Z88.4 ALLERGY STATUS TO ANESTHETIC AGENT STATU 11/19/2017 KATHERIN RAY MD Ot Z88.8 ALLERGY STATUS TO OTH DRUG/MEDS/BIOL SUB 11/19/2017 KATHERIN RAY MD Ot Z91.040 LATEX ALLERGY STATUS 11/19/2017 KATHERIN RAY MD Ot Z91.048 OTHER NONMEDICINAL SUBSTANCE ALLERGY STA 11/19/2017 KATHERIN RAY MD Ot Z98.51 TUBAL LIGATION STATUS 11/23/2017 CORY SHAH, KATHERIN Walker Ot E78.00 PURE HYPERCHOLESTEROLEMIA, UNSPECIFIED 11/23/2017 KATHERIN RAY MD Ot E83.42 HYPOMAGNESEMIA 11/23/2017 KATHERIN RAY MD Ot F12.10 CANNABIS ABUSE, UNCOMPLICATED 11/23/2017 KATHERIN RAY MD Ot F14.10 COCAINE ABUSE, UNCOMPLICATED 11/23/2017 KATHERIN RAY MD Ot F15.10 OTHER STIMULANT ABUSE, UNCOMPLICATED 11/23/2017 KATHERIN RAY MD Ot I10 ESSENTIAL (PRIMARY) HYPERTENSION 11/23/2017 CORY SHAH, KATHERIN Walker Ot J44.9 CHRONIC OBSTRUCTIVE PULMONARY DISEASE, U 11/23/2017 KATHERIN RAY MD, Ot N17.9 ACUTE KIDNEY FAILURE, UNSPECIFIED 11/23/2017 KATHERIN RAY MD Ot N39.0 URINARY TRACT INFECTION, SITE NOT SPECIF 11/23/2017 KATHERIN RAY MD Ot R03.1 NONSPECIFIC LOW BLOOD-PRESSURE READING 11/23/2017 KATHERIN RAY MD, Ot R42 DIZZINESS AND GIDDINESS 11/23/2017 KATHERIN RAY MD Ot Z79.51 CAKE PULLER (CURRENT) USE OF INHALED STERO 11/23/2017 KATHERIN RAY MD Ot Z79.52 CAKE PULLER (CURRENT) USE OF SYSTEMIC STER 11/23/2017 KATHERIN RAY MD Ot Z87.19 PERSONAL HISTORY OF OTHER DISEASES OF TH 11/23/2017 KATHERIN RAY MD Ot Z87.891 PERSONAL HISTORY OF NICOTINE DEPENDENCE 11/23/2017 KATHERIN RAY MD Ot Z88.4 ALLERGY STATUS TO ANESTHETIC AGENT STATU 11/23/2017 KATHERIN RAY MD Ot Z88.8 ALLERGY STATUS TO OTH DRUG/MEDS/BIOL SUB 11/23/2017 KATHERIN RAY MD Ot Z91.040 LATEX ALLERGY STATUS 11/23/2017 KATHERIN RAY MD Ot Z91.048 OTHER NONMEDICINAL SUBSTANCE ALLERGY STA 11/23/2017 CORY SHAH, KATHERIN Walker Ot Z98.51 TUBAL LIGATION STATUS 01/26/2018 KATELYN SHAH, PRIETO Alfredo Ot Z01.818 ENCOUNTER FOR OTHER PREPROCEDURAL EXAMIN 01/26/2018 KATELYN SHAH, PRIETO Alfredo Ot Z01.818 ENCOUNTER FOR OTHER PREPROCEDURAL EXAMIN 01/26/2018 Ot R07.89 OTHER CHEST PAIN 01/26/2018 MARIA GUADALUPE, TON CIRCUIT COURT JUDGE Ot R10.30 LOWER ABDOMINAL PAIN, UNSPECIFIED 01/26/2018 MARIA GUADALUPE, TON CIRCUIT COURT JUDGE Ot R60.9 EDEMA, UNSPECIFIED 01/26/2018 BAIMA, VINCE L CIRCUIT COURT JUDGE Ot E78.2 MIXED HYPERLIPIDEMIA 01/26/2018 BAIMA, VINCE L CIRCUIT COURT JUDGE Ot I10 ESSENTIAL (PRIMARY) HYPERTENSION 01/26/2018 BAIMA, VINCE L CIRCUIT COURT JUDGE Ot I73.9 PERIPHERAL VASCULAR DISEASE, UNSPECIFIED 01/26/2018 BAIMA, VINCE L CIRCUIT COURT JUDGE Ot R00.2 PALPITATIONS 01/26/2018 BAIMA, VINCE L CIRCUIT COURT JUDGE Ot R06.09 OTHER FORMS OF DYSPNEA 01/26/2018 BAIMA, VINCE L CIRCUIT COURT JUDGE Ot R07.9 CHEST PAIN, UNSPECIFIED 01/26/2018 BAIMA, VINCE L CIRCUIT COURT JUDGE Ot E78.2 MIXED HYPERLIPIDEMIA 01/26/2018 BAIMA, VINCE L CIRCUIT COURT JUDGE Ot I10 ESSENTIAL (PRIMARY) HYPERTENSION 01/26/2018 BAIMA, VINCE L CIRCUIT COURT JUDGE Ot I73.9 PERIPHERAL VASCULAR DISEASE, UNSPECIFIED 01/26/2018 BAIMA, VINCE L CIRCUIT COURT JUDGE Ot R00.2 PALPITATIONS 01/26/2018 BAIMA, VINCE L CIRCUIT COURT JUDGE Ot R06.09 OTHER FORMS OF DYSPNEA 01/26/2018 BAIMA, VINCE L CIRCUIT COURT JUDGE Ot R07.9 CHEST PAIN, UNSPECIFIED 01/26/2018 BAIMA, VINCE L CIRCUIT COURT JUDGE Ot E78.2 MIXED HYPERLIPIDEMIA 01/26/2018 BAIMA, VINCE L CIRCUIT COURT JUDGE Ot I10 ESSENTIAL (PRIMARY) HYPERTENSION 01/26/2018 BAIMA, VINCE L CIRCUIT COURT JUDGE Ot I73.9 PERIPHERAL VASCULAR DISEASE, UNSPECIFIED 01/26/2018 BAIMA, VINCE L CIRCUIT COURT JUDGE Ot R00.2 PALPITATIONS 01/26/2018 BAIMA, VINCE L CIRCUIT COURT JUDGE Ot R06.09 OTHER FORMS OF DYSPNEA 01/26/[address] [place] [address] COURT JUDGE Ot R07.9 CHEST PAIN, UNSPECIFIED 01/26/2018 ELOY ZAIDI APRN Ot K76.0 FATTY (CHANGE OF) LIVER, NOT ELSEWHERE C 01/26/2018 ELOY ZAIDI APRN Ot Z90.49 ACQUIRED ABSENCE OF OTHER SPECIFIED PART 01/26/2018 ELOY ZAIDI APRN Ot N28.89 OTHER SPECIFIED DISORDERS OF KIDNEY AND 02/09/2018 ELOY ZAIDI APRN Ot R10.2 PELVIC AND PERINEAL PAIN Procedures Code [place] [address] HEMOCCULT 04/12/2012 97435 PAP SMEAR 04/14/2012 OtolarynCaitlyn Diggs 04/17/2012 Q0091 PAP SMEAR OBTAIN SMEAR 04/19/2012 01420 ROUTINE VENIPUNCTURE 07/01/2012 53212 ESR/SED RATE 07/01/2012 47444 CBC 07/01/2012 28960 CRP 07/01/2012 63654 URIC ACID 07/01/2012 31643 CMP 07/01/2012 [id number] GFR CALC (RESULT ONLY) 07/01/2012 17583 TSH 07/01/2012 16306 ASO 07/02/2012 41773 RA FACTOR 07/02/2012 ANAANA IVETH ANALYZER (SCREEN) 07/02/2012 50992 HEPATITIS PROFILE 07/02/2012 83771 ROUTINE VENIPUNCTURE 08/04/2012 43984 CMP 08/04/2012 22576 BNP 08/04/2012 69886 EKG, TRACING (IN-HOUSE) 08/18/2012 56576 H PYLORI (IN-HOUSE) 11/03/2012 66462 EGD 11/03/2012 30952 US AORTIC (DOPPLER) 11/03/2012 52447 ROUTINE VENIPUNCTURE 12/09/2012 86526 CBC 12/09/2012 06229 CMP 12/09/2012 [id number] GFR CALC (RESULT ONLY) 12/09/2012 80415 XRAY CHEST 2 VIEW 12/12/2012 52870 ROUTINE VENIPUNCTURE 02/22/2013 25437 CBC 02/22/2013 [id number] GFR CALC (RESULT ONLY) 02/22/2013 25174 CMP 02/22/2013 29307 PROLACTIN 02/22/2013 25930 TSH 02/22/2013 42632 ESTROGEN 02/27/2013 52200 MAMMOGRAM DX, MARK 03/09/2013 41905 ROUTINE VENIPUNCTURE 05/23/2013 93777 XRAY KNEE LEFT 3 VIEWS 05/23/2013 44144 XRAY FEET, MARK 05/23/2013 [id number] GFR CALC (RESULT ONLY) 05/24/2013 00708 CMP 05/24/2013 98503 CBC 05/24/2013 62325 ROUTINE VENIPUNCTURE 11/09/2013 60900 CBC 11/09/2013 [id number] GFR CALC (RESULT ONLY) 11/09/2013 57937 CMP 11/09/2013 39267 ROUTINE VENIPUNCTURE 12/12/2013 34811 LIVER PANEL (LFT) 12/12/2013 52764 UA W/ CULTURE IF INDICATED 12/29/2013 39068 CULTURE URINE 12/31/2013 74148 ROUTINE VENIPUNCTURE 02/06/2014 57290 CBC 02/06/2014 [id number] GFR CALC (RESULT ONLY) 02/06/2014 02112 CMP 02/06/2014 14024 LIVER PANEL (LFT) 02/06/2014 13078 URIC ACID 02/06/2014 69172 CRP 02/06/2014 58975 HEPATITIS PROFILE 02/06/2014 43261 XRAY KNEE RIGHT 3 VIEWS 02/07/2014 60015 RA FACTOR 02/07/2014 47145 ASO 02/07/2014 ANAANA IVETH ANALYZER (SCREEN) 02/07/2014 59281 MRI EXTREMITY, LOWER RIGHT, W/O CONTRAST 03/01/2014 06839 PSYCH DIAGNOSTIC EVALUATION 03/15/2014 00241 JOINT INJECTION- LARGE JOINT (SPECIFY MEDCIN DESCRIPTION) 04/06/2014 J1040 DEPO MEDROL 80 MG INJ 04/06/2014 53297 PSYTX PT&/FAMILY 45 MINUTES 04/19/2014 ORTHOPEDI CAITLYN FRANCIS 06/08/2014 56958 AMERITOX 08/14/2014 00593 UA LONG DIP 08/14/2014 Results Test Result [...] 16:00 CULTURE, URINE, ROUTINE SEE NOTE NRG Complete urinalysis with reflex to culture - 09/30/17 17:33 Urine color determination YELLOW NRG Urine clarity determination SLIGHTLY CLOUDY NRG Urine pH measurement by test strip 6 5-9 Specific gravity of urine by test strip 1.015 1.016- 1.022 Urine protein assay by test strip, semi-quantitative 3+ NEGATIVE Urine glucose detection by automated test strip NEGATIVE NEGATIVE Erythrocytes detection in urine sediment by light microscopy 1+ NEGATIVE Urine ketones detection by automated test strip NEGATIVE NEGATIVE Urine nitrite detection by test strip NEGATIVE NEGATIVE Urine total bilirubin detection by test strip NEGATIVE NEGATIVE Urine urobilinogen measurement by automated test strip (mass/volume) NORMAL NORMAL Urine leukocyte esterase detection by dipstick 3+ NEGATIVE Automated urine sediment erythrocyte count by microscopy (number/high power field) [HPF] NRG Automated urine sediment leukocyte count by microscopy (number/high power field ) > [HPF] NRG Bacteria detection in urine sediment by light microscopy LARGE NRG Squamous epithelial cells detection in urine sediment by light microscopy >50 NRG Crystals detection in urine sediment by light microscopy NONE NRG Casts detection in urine sediment by light microscopy NONE NRG Mucus detection in urine sediment by light microscopy NEGATIVE NRG Complete urinalysis with reflex to culture YES NRG Urine drug screening test - 09/30/17 17:33 Urine phencyclidine detection by screening method NEGATIVE NEGATIVE Urine benzodiazepines detection by screening method NEGATIVE NEGATIVE Urine cocaine detection NEGATIVE NEGATIVE Urine amphetamines detection by screening method NEGATIVE NEGATIVE Urine methamphetamine detection by screening method POSITIVE NEGATIVE Urine cannabinoids detection by screening method NEGATIVE NEGATIVE Urine opiates detection by screening method NEGATIVE NEGATIVE Urine barbiturates detection NEGATIVE NEGATIVE Screening urine tricyclic antidepressants detection NEGATIVE NEGATIVE Urine methadone detection by screening method NEGATIVE NEGATIVE Urine oxycodone detection NEGATIVE NEGATIVE Urine propoxyphene detection NEGATIVE NEGATIVE Bacterial urine culture - 09/30/17 17:33 Bacterial urine culture SEE COMMEN NR COLONY COUNT . NRG Complete blood count (CBC) with automated white blood cell (WBC) differential - 09/30/17 17:35 Blood leukocytes automated count (number/volume) 13.6 10*3/uL 4.3-11.0 Blood erythrocytes automated count (number/volume) 4.02 10*6/uL 4.35-5.85 Venous blood hemoglobin measurement (mass/volume) 11.6 g/dL 11.5-16.0 Blood hematocrit (volume fraction) 36 % 35-52 Automated erythrocyte mean corpuscular volume 88 [foz_us] 80-99 Automated erythrocyte mean corpuscular hemoglobin (mass per erythrocyte) 29 pg 25-34 Automated erythrocyte mean corpuscular hemoglobin concentration measurement ( mass/volume) 33 g/dL 32-36 Automated erythrocyte distribution width ratio 13.8 % 10.0-14.5 Automated blood platelet count (count/volume) 391 10*3/uL 130-400 Automated blood platelet mean volume measurement 10.4 [foz_us] 7.4-10.4 Automated blood neutrophils/100 leukocytes 69 % 42-75 Automated blood lymphocytes/100 leukocytes 19 % 12-44 Blood monocytes/100 leukocytes 8 % 0-12 Automated blood eosinophils/100 leukocytes 3 % 0-10 Automated blood basophils/100 leukocytes 0 % 0-10 Blood neutrophils automated count (number/volume) 9.4 10*3 1.8-7.8 Blood lymphocytes automated count (number/volume) 2.5 10*3 1.0-4.0 Blood monocytes automated count (number/volume) 1.1 10*3 0.0-1.0 Automated eosinophil count 0.5 10*3/uL 0.0-0.3 Automated blood basophil count (count/volume) 0.0 10*3/uL 0.0-0.1 PT panel in platelet poor plasma by coagulation assay - 09/30/17 17:35 Prothrombin time (PT) in platelet poor plasma by coagulation assay 13.9 s 12.2-14.7 INR in platelet poor plasma or blood by coagulation assay 1.1 0.8-1.4 Activated partial thromboplastin time (aPTT) in platelet poor plasma bycoagulation assay - 05/30/18 17:35 Activated partial thromboplastin time (aPTT) in platelet poor plasma bycoagulation assay 31 s 24-35 Comprehensive metabolic panel - 09/30/17 17:35 Serum or plasma sodium measurement (moles/volume) 140 mmol/L 135-145 Serum or plasma potassium measurement (moles/volume) 3.5 mmol/L 3.6-5.0 Serum or plasma chloride measurement (moles/volume) 107 mmol/L 98-107 Carbon dioxide 19 mmol/L 21-32 Serum or plasma anion gap determination (moles/volume) 14 mmol/L 5-14 Serum or plasma urea nitrogen measurement (mass/volume) 20 mg/dL 7-18 Serum or plasma creatinine measurement (mass/volume) 1.96 mg/dL 0.60-1.30 Serum or plasma urea nitrogen/creatinine mass ratio 10 NRG Serum or plasma creatinine measurement with calculation of estimated glomerular filtration rate 27 NRG Serum or plasma glucose measurement (mass/volume) 112 mg/dL 70-105 Serum or plasma calcium measurement (mass/volume) 6.5 mg/dL 8.5-10.1 Serum or plasma total bilirubin measurement (mass/volume) 0.3 mg/dL 0.1-1.0 Serum or plasma alkaline phosphatase measurement (enzymatic activity/volume) 106 U/L 40-136 Serum or plasma aspartate aminotransferase measurement (enzymatic activity/ volume) 21 U/L 5-34 Serum or plasma alanine aminotransferase measurement (enzymatic activity/volume ) 29 U/L 0-55 Serum or plasma protein measurement (mass/volume) 7.6 g/dL 6.4-8.2 Serum or plasma albumin measurement (mass/volume) 4.0 g/dL 3.2-4.5 Magnesium - 09/30/17 17:35 Magnesium 0.8 mg/dL 1.8-2.4 Serum or plasma creatine kinase measurement (enzymatic activity/volume) - 09/30 17:35 Serum or plasma creatine kinase measurement (enzymatic activity/volume) 212 U/L 29-168 Serum or plasma creatine kinase MB measurement (enzymatic activity/volume) - 17:35 Serum or plasma creatine kinase MB measurement (enzymatic activity/volume) 0.9 ng/mL <6.6 Serum or plasma lithium measurement (moles/volume) - 09/30/17 17:35 BNP level 11.8 pg/mL <100.0 Serum or plasma troponin i.cardiac measurement (mass/volume) - 09/30/17 17:35 Serum or plasma troponin i.cardiac measurement (mass/volume) < ng/ mL <0.30 Myoglobin, serum - 09/30/17 17:35 Myoglobin, serum 57.4 ng/mL 10.0-92.0 Serum or plasma thyroxine (T4) free measurement (mass/volume) - 09/30/17 17:35 Serum or plasma thyroxine (T4) free measurement (mass/volume) 1.17 ng/dL 0.70-1.48 Serum or plasma thyrotropin measurement by detection limit <=0.05 miu/l (units/ volume) - 09/30/17 17:35 Serum or plasma thyrotropin measurement by detection limit <=0.05 miu/l (units/ volume) 0.16 u[iU]/mL 0.35-4.94 Serum or plasma ethanol measurement (mass/volume) - 09/30/17 17:35 Serum or plasma ethanol measurement (mass/volume) < mg/dL <10 Blood lactic acid measurement (moles/volume) - 09/30/17 18:51 Blood lactic acid measurement (moles/volume) 0.93 mmol/L 0.50-2.00 Bacterial blood culture - 09/30/17 18:51 Bacterial blood culture NG NRG Bacterial blood culture - 09/30/17 19:46 Bacterial blood culture NG NRG Serum or plasma intact pararthyroid hormone measurement (mass/volume) - 19:46 Serum or plasma intact parathyroid hormone measurement (mass/volume) 296.4 pg/mL 9.0-77.0 Bio-intact parathyroid hormone (PTH) measurement with calcium 6.1 % 8.5-10.5 Complete blood count (CBC) with automated white blood cell (WBC) differential - 10/01/17 03:30 Blood leukocytes automated count (number/volume) 10.7 10*3/uL 4.3-11.0 Blood erythrocytes automated count (number/volume) 3.79 10*6/uL 4.35-5.85 Venous blood hemoglobin measurement (mass/volume) 11.3 g/dL 11.5-16.0 Blood hematocrit (volume fraction) 33 % 35-52 Automated erythrocyte mean corpuscular volume 87 [foz_us] 80-99 Automated erythrocyte mean corpuscular hemoglobin (mass per erythrocyte) 30 pg 25-34 Automated erythrocyte mean corpuscular hemoglobin concentration measurement ( mass/volume) 34 g/dL 32-36 Automated erythrocyte distribution width ratio 13.5 % 10.0-14.5 Automated blood platelet count (count/volume) 306 10*3/uL 130-400 Automated blood platelet mean volume measurement 10.0 [foz_us] 7.4-10.4 Automated blood neutrophils/100 leukocytes 73 % 42-75 Automated blood lymphocytes/100 leukocytes 15 % 12-44 Blood monocytes/100 leukocytes 9 % 0-12 Automated blood eosinophils/100 leukocytes 3 % 0-10 Automated blood basophils/100 leukocytes 0 % 0-10 Blood neutrophils automated count (number/volume) 7.8 10*3 1.8-7.8 Blood lymphocytes automated count (number/volume) 1.6 10*3 1.0-4.0 Blood monocytes automated count (number/volume) 1.0 10*3 0.0-1.0 Automated eosinophil count 0.3 10*3/uL 0.0-0.3 Automated blood basophil count (count/volume) 0.0 10*3/uL 0.0-0.1 Comprehensive metabolic panel - 10/01/17 03:30 Serum or plasma sodium measurement (moles/volume) 139 mmol/L 135-145 Serum or plasma potassium measurement (moles/volume) 3.6 mmol/L 3.6-5.0 Serum or plasma chloride measurement (moles/volume) 107 mmol/L 98-107 Carbon dioxide 20 mmol/L 21-32 Serum or plasma anion gap determination (moles/volume) 12 mmol/L 5-14 Serum or plasma urea nitrogen measurement (mass/volume) 17 mg/dL 7-18 Serum or plasma creatinine measurement (mass/volume) 1.79 mg/dL 0.60-1.30 Serum or plasma urea nitrogen/creatinine mass ratio 9 NRG Serum or plasma creatinine measurement with calculation of estimated glomerular filtration rate 30 NRG Serum or plasma glucose measurement (mass/volume) 130 mg/dL 70-105 Serum or plasma calcium measurement (mass/volume) 7.6 mg/dL 8.5-10.1 Serum or plasma total bilirubin measurement (mass/volume) 0.3 mg/dL 0.1-1.0 Serum or plasma alkaline phosphatase measurement (enzymatic activity/volume) 97 U/L 40-136 Serum or plasma aspartate aminotransferase measurement (enzymatic activity/ volume) 15 U/L 5-34 Serum or plasma alanine aminotransferase measurement (enzymatic activity/volume ) 24 U/L 0-55 Serum or plasma protein measurement (mass/volume) 6.8 g/dL 6.4-8.2 Serum or plasma albumin measurement (mass/volume) 3.7 g/dL 3.2-4.5 Magnesium - 10/01/17 03:30 Magnesium 3.9 mg/dL 1.8-2.4 THYROID ANALYZER - 10/09/17 16:30 TSH 0.64 mIU/L NRG PDM - 09 PANEL (PROFILE 1) - 10/09/17 16:30 Prescribed Drug 1 Tramadol NRG Creatinine 110.1 mg/dL > or=20.0 pH 5.81 4.5 - 9.0 Oxidant NEGATIVE mcg/mL <200 Amphetamines NEGATIVE ng/mL <500 medMATCH Amphetamines CONSISTENT NRG Benzodiazepines NEGATIVE ng/mL <100 medMATCH Benzodiazepines CONSISTENT NRG Marijuana Metabolite NEGATIVE ng/mL <20 medMATCH Marijuana Metab CONSISTENT NRG Cocaine Metabolite NEGATIVE ng/mL <150 medMATCH Cocaine Metab CONSISTENT NRG Opiates NEGATIVE ng/mL <100 medMATCH Opiates CONSISTENT NRG Oxycodone NEGATIVE ng/mL <100 medMATCH Oxycodone CONSISTENT NRG COMMENT NRG Prescribed Drug 2 Tramadol NRG Barbiturates NEGATIVE ng/mL <300 medMATCH Barbiturates CONSISTENT NRG Methadone Metabolite NEGATIVE ng/mL <100 medMATCH Methadone Metab CONSISTENT NRG Phencyclidine NEGATIVE ng/mL <25 medMATCH Phencyclidine CONSISTENT NRG CMP - 10/23/17 15:38 GLUCOSE 110 mg/dL 65-99 UREA NITROGEN (BUN) 45 mg/dL 7-25 CREATININE 3.03 mg/dL 0.50-1.05 eGFR NON-AFR. PALAUAN 17 mL/min/1.73m2 > OR=60 eGFR 20 mL/min/1.73m2 > OR=60 BUN/CREATININE RATIO 15 (calc) 6-22 SODIUM 139 mmol/L 135-146 POTASSIUM 4.6 mmol/L 3.5-5.3 CHLORIDE 102 mmol/L 98-110 CARBON DIOXIDE 26 mmol/L 20-31 CALCIUM 9.6 mg/dL 8.6-10.4 PROTEIN, TOTAL 7.8 g/dL 6.1-8.1 ALBUMIN 3.9 g/dL 3.6-5.1 GLOBULIN 3.9 g/dL (calc) 1.9-3.7 ALBUMIN/GLOBULIN RATIO 1.0 (calc) 1.0-2.5 BILIRUBIN, TOTAL 0.3 mg/dL 0.2-1.2 ALKALINE PHOSPHATASE 231 U/L 33-130 AST 59 U/L 10-35 ALT 65 U/L 6-29 Complete urinalysis with reflex to culture - 11/19/17 15:40 Urine color determination YELLOW NRG Urine clarity determination CLEAR NRG Urine pH measurement by test strip 6 5-9 Specific gravity of urine by test strip 1.015 1.016- 1.022 Urine protein assay by test strip, semi-quantitative 3+ NEGATIVE Urine glucose detection by automated test strip NEGATIVE NEGATIVE Erythrocytes detection in urine sediment by light microscopy 1+ NEGATIVE Urine ketones detection by automated test strip NEGATIVE NEGATIVE Urine nitrite detection by test strip NEGATIVE NEGATIVE Urine total bilirubin detection by test strip NEGATIVE NEGATIVE Urine urobilinogen measurement by automated test strip (mass/volume) NORMAL NORMAL Urine leukocyte esterase detection by dipstick 3+ NEGATIVE Automated urine sediment erythrocyte count by microscopy (number/high power field) [HPF] NRG Automated urine sediment leukocyte count by microscopy (number/high power field ) [HPF] NRG Bacteria detection in urine sediment by light microscopy FEW NRG Squamous epithelial cells detection in urine sediment by light microscopy 25-50 NRG Crystals detection in urine sediment by light microscopy NONE NRG Casts detection in urine sediment by light microscopy NONE NRG Mucus detection in urine sediment by light microscopy NEGATIVE NRG Complete urinalysis with reflex to culture YES NRG Complete blood count (CBC) with automated white blood cell (WBC) differential - 11/19/17 15:40 Blood leukocytes automated count (number/volume) 8.9 10*3/uL 4.3-11.0 Blood erythrocytes automated count (number/volume) 3.41 10*6/uL 4.35-5.85 Venous blood hemoglobin measurement (mass/volume) 9.8 g/dL 11.5-16.0 Blood hematocrit (volume fraction) 30 % 35-52 Automated erythrocyte mean corpuscular volume 87 [foz_us] 80-99 Automated erythrocyte mean corpuscular hemoglobin (mass per erythrocyte) 29 pg 25-34 Automated erythrocyte mean corpuscular hemoglobin concentration measurement ( mass/volume) 33 g/dL 32-36 Automated erythrocyte distribution width ratio 14.0 % 10.0-14.5 Automated blood platelet count (count/volume) 375 10*3/uL 130-400 Automated blood platelet mean volume measurement 9.6 [foz_us] 7.4-10.4 Automated blood neutrophils/100 leukocytes 54 % 42-75 Automated blood lymphocytes/100 leukocytes 30 % 12-44 Blood monocytes/100 leukocytes 10 % 0-12 Automated blood eosinophils/100 leukocytes 5 % 0-10 Automated blood basophils/100 leukocytes 0 % 0-10 Blood neutrophils automated count (number/volume) 4.8 10*3 1.8-7.8 Blood lymphocytes automated count (number/volume) 2.7 10*3 1.0-4.0 Blood monocytes automated count (number/volume) 0.9 10*3 0.0-1.0 Automated eosinophil count 0.5 10*3/uL 0.0-0.3 Automated blood basophil count (count/volume) 0.0 10*3/uL 0.0-0.1 Comprehensive metabolic panel - 11/19/17 15:40 Serum or plasma sodium measurement (moles/volume) 137 mmol/L 135-145 Serum or plasma potassium measurement (moles/volume) 3.7 mmol/L 3.6-5.0 Serum or plasma chloride measurement (moles/volume) 106 mmol/L 98-107 Carbon dioxide 24 mmol/L 21-32 Serum or plasma anion gap determination (moles/volume) 7 mmol/L 5-14 Serum or plasma urea nitrogen measurement (mass/volume) 30 mg/dL 7-18 Serum or plasma creatinine measurement (mass/volume) 3.00 mg/dL 0.60-1.30 Serum or plasma urea nitrogen/creatinine mass ratio 10 NRG Serum or plasma creatinine measurement with calculation of estimated glomerular filtration rate 16 NRG Serum or plasma glucose measurement (mass/volume) 104 mg/dL 70-105 Serum or plasma calcium measurement (mass/volume) 8.8 mg/dL 8.5-10.1 Serum or plasma total bilirubin measurement (mass/volume) 0.3 mg/dL 0.1-1.0 Serum or plasma alkaline phosphatase measurement (enzymatic activity/volume) 189 U/L 40-136 Serum or plasma aspartate aminotransferase measurement (enzymatic activity/ volume) 18 U/L 5-34 Serum or plasma alanine aminotransferase measurement (enzymatic activity/volume ) 39 U/L 0-55 Serum or plasma protein measurement (mass/volume) 7.0 g/dL 6.4-8.2 Serum or plasma albumin measurement (mass/volume) 3.7 g/dL 3.2-4.5 Magnesium - 11/19/17 15:40 Magnesium 0.9 mg/dL 1.8-2.4 Urine drug screening test - 11/19/17 15:40 Urine phencyclidine detection by screening method NEGATIVE NEGATIVE Urine benzodiazepines detection by screening method NEGATIVE NEGATIVE Urine cocaine detection NEGATIVE NEGATIVE Urine amphetamines detection by screening method NEGATIVE NEGATIVE Urine methamphetamine detection by screening method NEGATIVE NEGATIVE Urine cannabinoids detection by screening method NEGATIVE NEGATIVE Urine opiates detection by screening method NEGATIVE NEGATIVE Urine barbiturates detection NEGATIVE NEGATIVE Screening urine tricyclic antidepressants detection NEGATIVE NEGATIVE Urine methadone detection by screening method NEGATIVE NEGATIVE Urine oxycodone detection NEGATIVE NEGATIVE Urine propoxyphene detection NEGATIVE NEGATIVE Serum or plasma ethanol measurement (mass/volume) - 11/19/17 15:40 Serum or plasma ethanol measurement (mass/volume) < mg/dL <10 Bacterial urine culture - 11/19/17 15:40 Bacterial urine culture SEE COMMEN NRG COLONY COUNT . NRG PTH (INTACT) - 11/26/17 17:26 CALCIUM 9.2 mg/dL 8.6-10.4 PARATHYROID HORMONE, INTACT 52 pg/mL 14-64 VITAMIN D, 25-H - 11/26/17 17:26 VITAMIN D,25-OH,TOTAL,IA 31 ng/mL 30-100 Encounters ACCT No. Visit Date/Time Discharge Status Pt. Type Provider Facility Loc./Unit Complaint [id number] 07/27/2014 13:03:00 07/27/2014 23:59:59 CLS Outpatient JEWELS RAMOS APRN [id number] 07/27/2014 13:03:00 07/27/2014 23:59:59 CLS Outpatient JEWELS RAMOS APRN [id number] 06/13/2014 10:49:00 06/13/2014 23:59:59 CLS Outpatient JEWELS RAMOS APRN [id number] 06/08/2014 13:03:00 06/08/2014 23:59:59 CLS Outpatient SYMONE POST APRN [id number] 04/19/2014 10:10:00 04/19/2014 23:59:59 CLS Outpatient VELASQUEZ KAUR PSYD [id number] 04/06/2014 13:24:00 04/06/2014 23:59:59 CLS Outpatient JEWELS ROMANO DO [id number] 03/15/2014 10:35:00 03/15/2014 23:59:59 CLS Outpatient VELASQUEZ KAUR PSYD [id number] 02/23/2014 16:27:00 02/23/2014 23:59:59 CLS Outpatient MARIA GUADALUPE DIRECT SERVICE WORKER, TON S [id number] 02/06/2014 10:51:00 02/06/2014 23:59:59 CLS Outpatient MARIA GUADALUPE DIRECT SERVICE WORKER, TON S [id number] 02/02/2014 17:18:00 02/02/2014 23:59:59 CLS Outpatient MARIA GUADALUPE DIRECT SERVICE WORKER, TON S [id number] 12/29/2013 13:28:00 12/29/2013 23:59:59 CLS Outpatient MARIA GUADALUPE DIRECT SERVICE WORKER, TON S [id number] 12/14/2013 17:38:00 12/14/2013 23:59:59 CLS Outpatient CATHERINE PERALES APRN [id number] 12/12/2013 11:56:00 12/12/2013 23:59:59 CLS Outpatient MARIA GUADALUPE DIRECT SERVICE WORKER, TON S [id number] 11/09/2013 14:10:00 11/09/2013 23:59:59 CLS Outpatient MARIA GUADALUPE DIRECT SERVICE WORKER, TON S [id number] 10/06/2013 15:40:00 10/06/2013 23:59:59 CLS Outpatient MARIA GUADALUPE DIRECT SERVICE WORKER, TON S [id number] 05/23/2013 15:36:00 05/23/2013 23:59:59 CLS Outpatient MARIA GUADALUPE DIRECT SERVICE WORKER, TON S [id number] 03/29/2013 08:09:00 03/29/2013 23:59:59 CLS Outpatient MARIA GUADALUPE DIRECT SERVICE WORKER, TON S [id number] 03/08/2013 17:05:00 03/08/2013 23:59:59 CLS Outpatient ISAIAS VALENZUELA MD [id number] 02/22/2013 08:48:00 02/22/2013 23:59:59 CLS Outpatient MARIA GUADALUPE DIRECT SERVICE WORKER, TON S [id number] 11/11/2012 00:00:00 11/11/2012 23:59:59 CLS Outpatient TON LERMA APRN Colin [id number] 08/04/2012 13:50:00 08/04/2012 23:59:59 CLS Outpatient MARJORIE STRONG APRN [id number] 07/19/2012 11:32:00 07/19/2012 23:59:59 CLS Outpatient MARIA GUADALUPE CHAUDHARINTON Colin [id number] 07/12/2012 11:30:00 07/12/2012 23:59:59 CLS Outpatient [id number] 07/01/2012 13:52:00 07/01/2012 23:59:59 CLS Outpatient [id number] 04/17/2012 10:45:00 04/17/2012 23:59:59 CLS Outpatient JEWELS ROMANO DO [id number] 12/09/2012 12:12:00 Document Registration [id number] 11/03/2012 14:53:00 Document Registration [id number] 08/18/2012 15:12:00 Document Registration [id number] 11/26/2017 16:00:00 11/26/2017 23:59:59 CLS [facility] [id number] 11/26/2017 16:00:00 Document Registration [id number] 10/23/2017 15:40:00 Document Registration [id number] 10/09/2017 15:00:00 Document Registration [id number] 05/02/2017 15:25:00 Document Registration [id number] 02/08/2018 13:03:00 02/08/2018 23:59:59 CLS Outpatient ELOY ZAIDI APRN [facility] RAD PELVIC PAIN [id number] 11/19/2017 14:50:00 11/19/2017 19:32:00 DIS Emergency CORY SHAH, KATHERIN Walker [facility] ER LOW BLOOD PRESSURE [id number] 11/17/2017 09:13:00 11/17/2017 23:59:59 CLS Outpatient ELOY ZAIDI APRN [facility] RAD ELEVATED SERUM CREATININE [id number] 11/02/2017 06:50:00 11/02/2017 23:59:59 CLS Outpatient ELOY ZAIDI APRN [facility] RAD ELEVATED LIVER ENZYMES [id number] 09/30/2017 19:20:00 10/01/2017 12:00:00 DIS Inpatient TIMOTHY ROSAS DO [facility] ICU HYPOMAGNESMIA, HYPOCALCEMIA, LOW TSH,RENAL INSUFF [id number] 02/10/2017 07:30:00 02/10/2017 23:59:59 CLS Outpatient BAIJORGE VINCE L [employer]GE [facility] CARD R07.9 [id number] 01/23/2017 14:54:00 01/23/2017 14:54:00 CAN Preadmit OTHER, UNLISTED [facility] LAB [id number] [id number] 01/23/2017 14:45:00 01/23/2017 14:45:00 CAN Preadmit LISAMIRIAN DEMARCO Benjie [facility] LAB R79.89 V12.69 [id number] 01/20/2017 14:22:00 01/20/2017 23:59:59 CLS Outpatient BAIJORGE VINCE L [facility] JUDGE [facility] CARD R07.9 [id number] 01/20/2017 14:20:00 01/20/2017 23:59:59 CLS Outpatient BAIJORGE VINCE L [facility] JUDGE [facility] RAD R07.9 [id number] 01/02/2017 12:02:00 01/02/2017 23:59:59 CLS Outpatient TON LERMA [facility] [employer]GE [facility] CARD EDEMA R60.9 [id number] 12/27/2016 13:34:00 12/27/2016 15:12:00 DIS Emergency MAKI SHAH, RUSTY Shaw [facility] ER L ARM, BACK, BOTH LEGS NUMBNESS. CP [id number] 03/24/2016 08:43:00 03/24/2016 23:59:59 CLS Outpatient TON LERMA [employer]GE [facility] RAD LOWER ABD PAIN [id number] 06/14/2015 10:38:00 06/14/2015 23:59:59 CLS Outpatient BRITNEY LERMAA [employer]GE [facility] RAD COLITIS [id number] 03/19/2015 09:30:00 03/19/2015 23:59:59 CLS Outpatient TON LERMA [facility] CARD LEFT CHEST PRESSURE [id number] 03/09/2015 05:38:00 03/09/2015 23:59:59 CLS Outpatient PRIETO ZEPEDA MD [facility] PREOP HX POLPS,FAMILY HX, RECTAL BLEEDING [id number] 03/08/2015 12:02:00 03/08/2015 14:45:00 DIS Outpatient PRIETO ZEPEDA MD [facility] SDC NAUSEA/UPPER GASTRIC PAIN [id number] 03/06/2015 05:42:00 03/06/2015 23:59:59 CLS Outpatient PRIETO ZEPEDA MD [facility] PREOP UPPER GASTRIC PAIN [id number] 03/01/2014 10:38:00 03/01/2014 23:59:59 CLS Outpatient TON LERMA [facility] RAD PAIN IN KNEE [id number] 06/09/2013 14:13:00 06/09/2013 18:07:00 DIS Emergency BETTY SHAH, FRANKLYN Bowen [facility] ER ABD PAIN/VOMITING [id number] 03/10/2013 13:22:00 03/10/2013 23:59:59 CLS Outpatient DERECK ALVAREZ [employer] [facility] RAD BILAT NIPPLE DISCHARGE, BREAST PAIN [id number] 11/09/2012 07:47:00 11/09/2012 23:59:59 CLS Outpatient MARJORIE STRONG APRN [facility] RAD ABD PAIN, EPIGASTRIC [id number] 03/24/2018 15:27:00 ACT Emergency SHANKAR CREWS MD [facility] ER EYE PROBLEMS [id number] 05/24/2015 09:00:00 Document Registration [id number] 08/04/2014 15:30:00 Document Registration [id number] 06/26/2014 11:49:00 Document Registration [id number] 07/05/2012 04:40:00 Document Registration [id number] 04/22/2012 13:36:00 Document Registration [id number] 04/20/2012 18:25:00 Document Registration [id number] 04/10/2011 05:44:00 Document Registration [id number] 04/03/2011 10:01:00 Document Registration [id number] 04/05/2010 14:06:00 Document Registration [id number] 03/18/2016 10:05:00 Document Registration [id number] 02/15/2016 18:06:00 Document Registration [id number] 12/02/2016 09:09:00 Document Registration
[2018-03-24 16:15] LABS: BILIRUBIN,TOTAL 0.4 MG/DL (0.1-1.0); CALCIUM 9.6 MG/DL (8.5-10.1); CREATININE SERUM 2.01 MG/DL (0.60-1.30); POTASSIUM 4.5 MMOL/L (3.6-5.0); TOTAL PROTEIN 7.4 GM/DL (6.4-8.2)
--- NOTE | 2018-03-24 16:28 | ED EENT ---
History of Present Illness General Chief Complaint: Eye Problems Stated Complaint: EYE PROBLEMS Nursing Triage Note: PT TO ROOM 6 PT STATES WAS SENT TO ED BY DR VENTURA FOR OCCULAR EDEMA. PT STATES HAS HAD IRITIS. Source: patient Exam Limitations: no limitations History of Present Illness Date Seen by Provider: Mar 24, 2018 Time Seen by Provider: 15:36 Initial Comments Here from outpatient optometry clinic and was seen by Dr. Ventura earlier. She had concerns about ocular edema both retinal and macular with right greater than left. Has had history of iritis. History of stage IV kidney disease. Not currently on dialysis. Also has history of hypertension that was previously controlled with medicines but has been changed due to the kidney disease. No report of nausea or vomiting. No reported injury. Dr. Ventura has requested labs and evaluation for mass in the brain. Timing/Duration: gradual Severity: moderate Location: eye (R), eye (L) Prearrival Treatment: no prearrival treatment Associated Symptoms: No facial pain/swelling, No fever, No nasal congestion/ drainage, No sinus infection, No tooth pain Allergies and Home Medications Allergies Coded Allergies: adhesive tape (Verified Allergy, Unknown, 11/19/17) latex (Verified Allergy, Unknown, 11/19/17) methotrexate (Unverified Allergy, Unknown, INCREASED LIVER ENZYMES, ) procaine (Unverified Allergy, Unknown, RASH, 06/26/14) Home Medications Albuterol Sulfate 90 Mcg Aer.pow.ba, 2 PUFF INH Q4H PRN for SHORTNESS OF BREATH, (Reported) Amlodipine Besylate 10 Mg Tablet, 10 MG PO DAILY, (Reported) Ascorbic Acid 500 Mg Tab.chew, 500 MG PO DAILY, (Reported) Budesonide/Formoterol Fumarate 10.2 Gm Hfa.aer.ad, 2 PUFF INH BID, (Reported) Colestipol HCl 1 Gm Tablet, 1 GM PO HS, (Reported) Cyclopentolate HCl 2 Ml Drops, 1 DROP OU BID PRN for EYE PAIN, (Reported) Diphenhydramine HCl 25 Mg Capsule, 25 MG PO HS, (Reported) Folic Acid 1 Mg Tablet, 1 MG PO HS, (Reported) Lisinopril 40 Mg Tablet, 40 MG PO DAILY, (Reported) Milk Thistle Seed Extract 175 Mg Capsule, 175 MG PO DAILY, (Reported) Omeprazole 40 Mg Capsule.dr, 80 MG PO DAILY, (Reported) TAKES 2 (40MG) CAPSULES Prednisolone Acetate 10 Ml Drops.susp, 1 DROP OU Q4H, (Reported) Propranolol HCl 20 Mg Tablet, 20 MG PO BID, (Reported) Propylene Glycol 10 Ml Drops, 1-2 DROPS OU QID PRN for DRY EYES, (Reported) Simvastatin 40 Mg Tablet, 40 MG PO HS, (Reported) Trazodone HCl 100 Mg Tablet, 100 MG PO HS, (Reported) Venlafaxine HCl 150 Mg Cap.er.24h, 150 MG PO DAILY, (Reported) Patient Home Medication List Home Medication List Reviewed: Yes Review of Systems Review of Systems Constitutional: see HPI; No chills, No fever Eyes: See HPI; Denies Foreign Body Sensation; Inflammation, Pain; Denies Previous Injury Ears: No Symptoms Reported Nose: no symptoms reported Mouth: no symptoms reported Throat: no symptoms reported Respiratory: No cough, No short of breath Cardiovascular: No chest pain, No edema Gastrointestinal: No abdominal pain, No nausea, No vomiting All Other Systems Reviewed Negative Unless Noted: Yes Past Kijrnkm-Zxbvvp-Xxvszc Hx Past Med/Social Hx: Reviewed Nursing Past Med/Soc Hx Patient Social History Alcohol Use: Rarely Uses Recreational Drug Use: Yes (STATES RELAPSED IN SEPTEMBER) Drug of Choice: THC,METH,COCAINE-NO IV USE.CLAIMS "NONE FOR YEARS"-TEST + FOR METH 09/30/17 Smoking Status: Former Smoker Type Used: Cigarettes, Electronic/Vapor Former Smoker, Quit: September 25, 2015 Recent Foreign Travel: No Contact w/Someone Who Travel: No Recent Infectious Disease Expo: No Recent Hopitalizations: No Physical Abuse: No Sexual Abuse: No Immunizations Up To Date Date of Pneumonia Vaccine: October 01, 2011 Date of Influenza Vaccine: Jan 09, 2011 Seasonal Allergies Seasonal Allergies: No Past Medical History Surgeries: Yes (RIGHT KNEE SCOPE, EGD/COLONOSCOPY) Appendectomy, Gallbladder, Orthopedic, Tubal Ligation Respiratory: Yes Asthma, Chronic Bronchitis, COPD Cardiac: Yes High Cholesterol, Hypertension Neurological: Yes Vertigo 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 3.0oz. 98.439740cy; 40.6 BMI Method:Stated General Appearance: WD/WN, no apparent distress Eyes: bilateral eye other (bilateral eyes with pupils dilation secondary to exam no obvious erythema or other problems) Ears: bilateral ear auricle normal, bilateral ear canal normal, bilateral ear TM normal Nose: normal inspection Mouth/Throat: normal mouth inspection, pharynx normal Neck: full range of motion, supple Cardiovascular: regular rate, rhythm, no murmur Respiratory: lungs clear, normal breath sounds Gastrointestinal: non tender, soft Neurologic/Psychiatric: alert, oriented x 3 Skin: normal color, warm/dry Progress/Results/Core Measures Results/Orders Lab Results Laboratory Tests Test 03/24/18 15:41 Range/Units White Blood Count 7.6 4.3-11.0 10^3/uL Red Blood Count 4.13 L 4.35-5.85 10^6/uL Hemoglobin 11.9 11.5-16.0 G/DL Hematocrit 38 35-52 % Mean Corpuscular Volume 92 80-99 FL Mean Corpuscular Hemoglobin 29 25-34 PG Mean Corpuscular Hemoglobin Concent 31 L 32-36 G/DL Red Cell Distribution Width 12.7 10.0-14.5 % Platelet Count 297 130-400 10^3/uL Mean Platelet Volume 9.5 7.4-10.4 FL Neutrophils (%) (Auto) 54 42-75 % Lymphocytes (%) (Auto) 34 12-44 % Monocytes (%) (Auto) 8 0-12 % Eosinophils (%) (Auto) 3 0-10 % Basophils (%) (Auto) 0 0-10 % Neutrophils # (Auto) 4.1 1.8-7.8 X 10^3 Lymphocytes # (Auto) 2.6 1.0-4.0 X 10^3 Monocytes # (Auto) 0.6 0.0-1.0 X 10^3 Eosinophils # (Auto) 0.3 0.0-0.3 10^3/uL Basophils # (Auto) 0.0 0.0-0.1 10^3/uL Erythrocyte Sedimentation Rate 65 H 0-30 MM/HR Sodium Level 139 135-145 MMOL/L Potassium Level 4.5 3.6-5.0 MMOL/L Chloride Level 104 98-107 MMOL/L Carbon Dioxide Level 25 21-32 MMOL/L Anion Gap 10 5-14 MMOL/L Blood Urea Nitrogen 20 H 7-18 MG/DL Creatinine 2.01 H 0.60-1.30 MG/DL Estimat Glomerular Filtration Rate 26 BUN/Creatinine Ratio 10 Glucose Level 95 70-105 MG/DL Calcium Level 9.6 8.5-10.1 MG/DL Corrected Calcium 9.6 8.5-10.1 MG/DL Total Bilirubin 0.4 0.1-1.0 MG/DL Aspartate Amino Transf (AST/SGOT) 119 H 5-34 U/L Alanine Aminotransferase (ALT/SGPT) 124 H 0-55 U/L Alkaline Phosphatase 157 H 40-136 U/L C-Reactive Protein High Sensitivity 1.10 H 0.00-0.50 MG/DL Total Protein 7.4 6.4-8.2 GM/DL Albumin 4.0 3.2-4.5 GM/DL My Orders Orders - SHANKAR CREWS MD Saline Lock/Iv-Start (03/24/18 15:36) Cbc With Automated Diff (03/24/18 15:36) Comprehensive Metabolic Panel (03/24/18 15:36) Hs C Reactive Protein (03/24/18 15:36) Erythrocyte Sedimentation Rate (03/24/18 15:36) Mri Brain W/O Contrast (03/24/18 16:15) Vital Signs/I&O 03/24/18 15:40 Temp 97.7 Pulse 77 Resp 18 B/P (MAP) 156/87 (110) Pulse Ox 93 O2 Delivery Room Air Blood Pressure Mean: 110 Progress Progress Note : Progress Note Seen and evaluated. IV, labs and MRI ordered. I did discuss the concerns with the radiologist in [place] and we will go ahead and get MRI of the brain without contrast due to her stage IV kidney disease. GFR is to be less than 30. Monitor patient. 1738: MRI complete. I did discuss the case with Dr. Ventura. Patient is set up to see retina specialist and will see that person on Thursday morning. Discharged home with return precautions. Patient verbalize understanding instructions and agreement with plan. A copy of the chart will be sent to Dr. Ventura. Diagnostic Imaging Diagonstic Imaging: MRI Plain Films/CT/US/NM/MRI: head Comments VIA [facility]. [place], [place] NAME: [facility] REC#: [id number] PT STATUS: REG ER : 1965 PHYSICIAN: SHANKAR CREWS MD ADMIT DATE: 03/24/18/ER Draft Date of Exam:03/24/18 MRI BRAIN W/O CONTRAST PROCEDURE: MR imaging of the brain without contrast. TECHNIQUE: Multiplanar, multisequence MR imaging of the brain was performed without contrast. INDICATION: Papilledema. Headaches. Worsening right eye vision. COMPARISON: None. FINDINGS: Dedicated sequences of the orbits demonstrate symmetric size and signal within the optic nerves bilaterally. The globes are unremarkable. No orbital mass or edema. No restricted water diffusion or hemosiderin deposition. Minimal nonspecific T2 hyperintensities in the supratentorial white matter. Normal morphology of the major midline structures, posterior fossa, and cerebellopontine angle. Partially empty sella. Normal intracranial flow voids. No hydrocephalus or extra-axial fluid collections. The paranasal sinuses and mastoids are clear. Normal bone marrow signal. IMPRESSION: 1. Dedicated sequences of the orbits are negative. 2. 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 3. No acute intracranial MRI findings. 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 Decision time for Depature: 17:41 Referrals: [facility] (PCP/Family) Primary Care Physician Patient Instructions: Eyestrain Add. Discharge Instructions: All discharge instructions reviewed with patient and/or family. Voiced understanding. Follow-up with the redeye gunner as directed. Follow-up with your Dr. soon related to your blood pressure. Call your mushroom cutter to get guidance on that. Return for worse pain, fever, vomiting, weakness, vision or balance problems, increasing headaches or other concerns as needed. Copy Copies To 1: ROMÁN GONSALVES OD, TIMOTHY D MD Mar 24, 2018 16:28
[2018-03-24 16:30] LABS: ERYTHROCYTE SEDIMENTATION RATE 65 MM/HR (0-30)
--- NOTE | 2018-03-24 17:10 | Diagnostic Imaging Report ---
PROCEDURE: MR imaging of the brain without contrast. TECHNIQUE: Multiplanar, multisequence MR imaging of the brain was performed without contrast. INDICATION: Papilledema. Headaches. Worsening right eye vision. COMPARISON: None. FINDINGS: Dedicated sequences of the orbits demonstrate symmetric size and signal within the optic nerves bilaterally. The globes are unremarkable. No orbital mass or edema. No restricted water diffusion or hemosiderin deposition. Minimal nonspecific T2 hyperintensities in the supratentorial white matter. Normal morphology of the major midline structures, posterior fossa, and cerebellopontine angle. Partially empty sella. Normal intracranial flow voids. No hydrocephalus or extra-axial fluid collections. The paranasal sinuses and mastoids are clear. Normal bone marrow signal. IMPRESSION: 1. Dedicated sequences of the orbits are negative. 2. 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 3. No acute intracranial MRI findings. Dictated by: Dictated on workstation # [id number]
[2018-03-24 17:55] VITALS: BP 156/87
== END 2018-03-24 17:54 | disposition home or self-care (01) ==
LOC: EDUNIT# 15:26 → ER 15:27
DX: H30.93 Unspecified chorioretinal inflammation, bilateral (principal); I12.9 Hypertensive chronic kidney disease with stage 1 through stage 4 chronic kidney disease, or unspecified chronic kidney disease; N18.4 Chronic kidney disease, stage 4 (severe); J44.9 Chronic obstructive pulmonary disease, unspecified; E78.00 Pure hypercholesterolemia, unspecified; F12.10 Cannabis abuse, uncomplicated; F15.10 Other stimulant abuse, uncomplicated; F14.10 Cocaine abuse, uncomplicated; Z87.891 Personal history of nicotine dependence; Z87.19 Personal history of other diseases of the digestive system; Z90.49 Acquired absence of other specified parts of digestive tract; Z98.51 Tubal ligation status; Z91.048 Other nonmedicinal substance allergy status; Z91.040 Latex allergy status; Z88.4 Allergy status to anesthetic agent; Z79.51 Long term (current) use of inhaled steroids; Z79.52 Long term (current) use of systemic steroids
CPT/HCPCS: 36415; 70551; 80053; 85025; 85652; 86141

== ENCOUNTER → 2018-04-06 | Outpatient (CLI) | payer BC ==
--- NOTE | 2018-04-06 18:26 | Diagnostic Imaging Report ---
INDICATION: Sarcoidosis. TIME OF EXAM: 3:58 p.m. COMPARISON: Correlation is made with prior study from 09/30/2017. FINDINGS: The heart size and mediastinal structures appear stable. No parenchymal abnormalities are seen. No infiltrate, effusion, or pneumothorax is identified. IMPRESSION: Stable chest. No acute feature is detected. Dictated by: Dictated on workstation # [id number]
== END ==
LOC: RAD 14:56
DX: D86.9 Sarcoidosis, unspecified (principal); H20.9 Unspecified iridocyclitis
CPT/HCPCS: 36415; 71046; 82164; 86038; 86430; 86592; 86618; 86777; 86778

== ENCOUNTER 2018-04-10 10:36 | Emergency (ER) | payer BC ==
[~2018-04-10] VITALS: Ht 154.9 cm; Wt 98.9 kg
[2018-04-10] MEDS ORDERED: TETRACAINE 0.5% OPHTH SOLN 4 ML BTL (SINGLE DOSE ONLY) OP ONE (10:45)
--- NOTE | 2018-04-10 10:48 | ED EENT ---
History of Present Illness General Stated Complaint: BILAT EYE INFECTION/L SIDE EYE PAIN Source: patient Exam Limitations: no limitations History of Present Illness Date Seen by Provider: Apr 10, 2018 Time Seen by Provider: 10:46 Initial Comments To ER per private vehicle with reports of bilateral eye infection and left eye pain x3 days. She normally sees Dr. Bin العلي and Polly Manriquez from optometry here but has not called them to notify them of this. . Has had history of iritis. History of stage IV kidney disease. Not currently on dialysis. Also has history of hypertension that was previously controlled with medicines but has been changed due to the kidney disease. No report of nausea or vomiting. No reported injury. She states that she was referred to "specialist" in [place] who told her that she had "a leak in her eye where the veins come in" and that she has "pressure in her brain causing pressure on her eyes" and her "retina is sticking to her eye". She reports photophobia today and pain with eye opening. She did use one of her own "dilating drops" in the left eye this morning but cannot remember the name. Timing/Duration: gradual Severity: moderate Location: eye (L) Allergies and Home Medications Allergies Coded Allergies: adhesive tape (Verified Allergy, Unknown, 11/19/17) latex (Verified Allergy, Unknown, 11/19/17) methotrexate (Unverified Allergy, Unknown, INCREASED LIVER ENZYMES, ) procaine (Unverified Allergy, Unknown, RASH, 06/26/14) Home Medications Albuterol Sulfate 90 Mcg Aer.pow.ba, 2 PUFF INH Q4H PRN for SHORTNESS OF BREATH, (Reported) Amlodipine Besylate 10 Mg Tablet, 10 MG PO DAILY, (Reported) Ascorbic Acid 500 Mg Tab.chew, 500 MG PO DAILY, (Reported) Budesonide/Formoterol Fumarate 10.2 Gm Hfa.aer.ad, 2 PUFF INH BID, (Reported) Colestipol HCl 1 Gm Tablet, 1 GM PO HS, (Reported) Cyclopentolate HCl 2 Ml Drops, 1 DROP OU BID PRN for EYE PAIN, (Reported) Diphenhydramine HCl 25 Mg Capsule, 25 MG PO HS, (Reported) Folic Acid 1 Mg Tablet, 1 MG PO HS, (Reported) Lisinopril 40 Mg Tablet, 40 MG PO DAILY, (Reported) Milk Thistle Seed Extract 175 Mg Capsule, 175 MG PO DAILY, (Reported) Omeprazole 40 Mg Capsule.dr, 80 MG PO DAILY, (Reported) TAKES 2 (40MG) CAPSULES Prednisolone Acetate 10 Ml Drops.susp, 1 DROP OU Q4H, (Reported) Propranolol HCl 20 Mg Tablet, 20 MG PO BID, (Reported) Propylene Glycol 10 Ml Drops, 1-2 DROPS OU QID PRN for DRY EYES, (Reported) Simvastatin 40 Mg Tablet, 40 MG PO HS, (Reported) Trazodone HCl 100 Mg Tablet, 100 MG PO HS, (Reported) Venlafaxine HCl 150 Mg Cap.er.24h, 150 MG PO DAILY, (Reported) Patient Home Medication List Home Medication List Reviewed: Yes Review of Systems Review of Systems Constitutional: see HPI Eyes: See HPI, Decreased Acuity, Pain Ears: No Symptoms Reported Nose: no symptoms reported Mouth: no symptoms reported Throat: no symptoms reported Respiratory: no symptoms reported Cardiovascular: no symptoms reported Gastrointestinal: no symptoms reported Past Zbhowvi-Kletqo-Cujloy Hx Patient Social History Drug of Choice: THC,METH,COCAINE-NO IV USE.CLAIMS "NONE FOR YEARS"-TEST + FOR METH 09/30/17 Type Used: Cigarettes, Electronic/Vapor Former Smoker, Quit: September 25, 2015 Recent Foreign Travel: No Contact w/Someone Who Travel: No Recent Hopitalizations: No Immunizations Up To Date Date of Pneumonia Vaccine: October 01, 2011 Date of Influenza Vaccine: Jan 09, 2011 Seasonal Allergies Seasonal Allergies: No Past Medical History Surgeries: Yes (RIGHT KNEE SCOPE, EGD/COLONOSCOPY) Appendectomy, Gallbladder, Orthopedic, Tubal Ligation Respiratory: Yes Asthma, Chronic Bronchitis, COPD Cardiac: Yes High Cholesterol, Hypertension Neurological: Yes Vertigo 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 3.0oz. [id number]; 40.6 BMI Method:Stated General Appearance: WD/WN, no apparent distress Eyes: left eye other (There is scleral injection/hyperemia on the left; left pupil is silghtly dilated compared to right. ); bilateral eye PERRL, bilateral eye EOMI Ears: bilateral ear auricle normal, bilateral ear canal normal, bilateral ear TM normal Neck: non-tender, full range of motion Respiratory: no respiratory distress, no accessory muscle use Neurologic/Psychiatric: alert, normal mood/affect, oriented x 3 Skin: normal color, warm/dry Decreased visual acuity. Unable to see the large E on the eye chart. Progress/Results/Core Measures Results/Orders My Orders Orders - OBED LANGLEY APRN Tetracaine 0.5% Ophth Sujey Sdv (Tetracai (04/10/18 10:45) Medications Given in ED Current Medications Medications Dose Ordered Sig/Erick Route Start Time Stop Time Status Last Admin Dose Admin Tetracaine HCl 1 OR 2 DROPS INTO AFFEC... ONCE ONCE OP 04/10/18 10:45 04/10/18 10:46 DC 04/10/18 10:51 4 ML Vital Signs/I&O 04/10/18 10:50 Temp 100.1 Pulse 86 Resp 16 B/P (MAP) 138/95 (109) Pulse Ox 94 O2 Delivery Room Air Departure Communication (Admissions) Family Conversation I spoke with Dr. Bin العلي. Recommends using Pred Forte K1 drop every 2 hours for today and then 4 times a day tomorrow and Thursday. They will reevaluate her and a morning in the office at 8 AM. Eyes anesthetized with topical tetracaine drops (she states she is not allergic to procaine as stated in her allergy list or allergic to any lidocaine) and then IOP were checked. Right eye was at 17mmHg and left eye 22mmHg. Impression Primary Impression: Iritis of left eye Disposition: HOME, SELF-CARE Condition: Stable Departure-Patient Inst. Decision time for Depature: 11:22 Referrals: [facility] (PCP/Family) Primary Care Physician SILVA العلي OD Patient Instructions: How to Use Eye Drops Add. Discharge Instructions: 1. Use the steroid drops 1 drop every 2 hours for the rest of today then 1 drop every 6 hours tomorrow and Thursday. He will be seen at Dr. dalal's office by either Dr. dalal or Dr. العلي on Thursday morning at 8 AM. If your symptoms worsen in the meantime, call the office and then called the after hours phone number. Scripts Hydrocodone/Acetaminophen ([place] 5-325 Tablet) 1 Each Tablet 1 EACH PO Q6H PRN for PAIN-MODERATE MDD 10, #5 TAB Prov: OBED LANGLEY APRN 04/10/18 Gentamicin/Prednisol AC (Pred-G 1% Eye Drops) 5 Ml Drops.susp 1 DROP OP UD, #1 DROPS Every 2 hours today then every 6 hours tomorrow Prov: OBED LANGLEY APRN 04/10/18 Copy Copies To 1: SILVA العلي OD, PETER J APRN Apr 10, 2018 10:47
--- OUTSIDE RECORDS SUMMARY | 2018-04-10 11:10 | XMS REPORT | Continuity of Care Document ---
Author Author 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 OA N/A N /A 09/19/2010 Yes No Known Drug Allergies [id number] Drug Allergy Unknown N/A 04/10/2011 Yes methotrexate Drug Allergy N/ A N/A 02/06/2014 Yes methotrexate [id number] Drug Allergy Unknown INCREASED LIVER 06/26/2014 Yes procaine [id number] Drug Allergy Unknown RASH 06/26/2014 Yes adhesive tape [id number] Drug Allergy Unknown N/A 11/19/2017 Yes latex [id number] Drug Allergy Unknown N/A 11/19/2017 Medications There [...] APRN 723.1 Pain Neck 11/10/2007 MARIA GUADALUPE MANAGER AMBULATORY, TON S 724.2 PAIN LOW BACK 11/10/2007 MARIA GUADALUPE MANAGER AMBULATORY, TON S 723.1 Pain Neck 11/10/2007 MARIA GUADALUPE MANAGER AMBULATORY, TON S 724.2 PAIN LOW BACK 11/10/2007 BIANCA SHAH, ISAIAS 723.1 Pain Neck 11/10/2007 ISAIAS VALENZUELA MD 724.2 PAIN LOW BACK 11/10/2007 MARIA GUADALUPE MANAGER AMBULATORY, TON S 723.1 Pain Neck 11/10/2007 MARIA GUADALUPE MANAGER AMBULATORY, TON S 724.2 PAIN LOW BACK 11/10/2007 MARIA GUADALUPE MANAGER AMBULATORY, TON S 723.1 Pain Neck 11/10/2007 MARIA GUADALUPE MANAGER AMBULATORY, TON S 724.2 PAIN LOW BACK 11/10/2007 MARIA GUADALUPE MANAGER AMBULATORY, TON S 723.1 Pain Neck 11/10/2007 MARIA GUADALUPE MANAGER AMBULATORY, TON S 724.2 PAIN LOW BACK 11/10/2007 MARIA GUADALUPE MANAGER AMBULATORY, TON S 723.1 Pain Neck 11/10/2007 MARIA GUADALUPE MANAGER AMBULATORY, TON S 724.2 PAIN LOW BACK 11/10/2007 MARIA GUADALUPE MANAGER AMBULATORY, TON S 723.1 Pain Neck 11/10/2007 MARIA GUADALUPE MANAGER AMBULATORY, TON S 724.2 PAIN LOW BACK 11/10/2007 DIAZ VAUGHN, CATHERINE T 723.1 Pain Neck 11/10/2007 DIAZ MANAGER AMBULATORY, CATHERINE T 724.2 PAIN LOW BACK 11/10/2007 MARIA GUADALUPE MANAGER AMBULATORY, TON S 723.1 Pain Neck 11/10/2007 MARIA GUADALUPE MANAGER AMBULATORY, TON S 724.2 PAIN LOW BACK 11/10/2007 MARIA GUADALUPE MANAGER AMBULATORY, TON S 723.1 Pain Neck 11/10/2007 MARIA GUADALUPE MANAGER AMBULATORY, TON S 724.2 PAIN LOW BACK 11/10/2007 MARIA GUADALUPE MANAGER AMBULATORY, TON S 723.1 Pain Neck 11/10/2007 MARIA GUADALUPE MANAGER AMBULATORY, TON S 724.2 PAIN LOW BACK 11/10/2007 MARIA GUADALUPE MANAGER AMBULATORY, TON S 723.1 Pain Neck 11/10/2007 TON [...] L 724.2 PAIN LOW BACK 11/10/2007 POST MANAGER AMBULATORYSYMONE Ramos 723.1 Pain Neck 11/10/2007 POST SYMONE VAUGHN D 724.2 PAIN LOW BACK 11/10/2007 RICHARD MANAGER AMBULATORY, JEWELS 723.1 Pain Neck 11/10/2007 RICHARD MANAGER AMBULATORY, JEWELS 724.2 PAIN LOW BACK 11/10/2007 RICHARD MANAGER AMBULATORY, JEWELS 723.1 Pain Neck 11/10/2007 RICHARD MANAGER AMBULATORY, JEWELS 724.2 PAIN LOW BACK 11/10/2007 RICHARD MANAGER AMBULATORY, JEWELS 723.1 Pain Neck 11/10/2007 RICHARD MANAGER AMBULATORY, JEWELS 724.2 PAIN LOW BACK 11/11/2007 ROMANO DO, JEWLES K 847.0 SPRAIN/STRAIN NECK 11/11/2007 847.0 SPRAIN/STRAIN NECK 11/11/2007 847.0 SPRAIN/STRAIN NECK 11/11/2007 TON LERMA APRN 847.0 Sprain/strain Neck 11/11/2007 MARJORIE STRONG APRN 847.0 Sprain/strain Neck 11/11/2007 847.0 Sprain/strain Neck 11/11/2007 847.0 Sprain/strain Neck 11/11/2007 847.0 Sprain/strain Neck 11/11/2007 TON LERMA APRN 847.0 Sprain/strain Neck 11/11/2007 TON LERMA APRN 847.0 Sprain/strain Neck 11/11/2007 ISAIAS VALENZUELA MD 847.0 Sprain/strain Neck 11/11/2007 MARIA GUADALUPE MANAGER AMBULATORY, TON S 847.0 Sprain/strain Neck 11/11/2007 MARIA GUADALUPE MANAGER AMBULATORY, TON S 847.0 Sprain/strain Neck 11/11/2007 MARIA GUADALUPE MANAGER AMBULATORY, TON S 847.0 Sprain/strain Neck 11/11/2007 MARIA GUADALUPE MANAGER AMBULATORY, TON S 847.0 Sprain/strain Neck 11/11/2007 MARIA GUADALUPE MANAGER AMBULATORY, TON S 847.0 Sprain/strain Neck 11/11/2007 CATHERINE PERALES APRN 847.0 Sprain/strain Neck 11/11/2007 MARIA GUADALUPE MANAGER AMBULATORY, TON S 847.0 Sprain/strain Neck 11/11/2007 MARIA GUADALUPE MANAGER AMBULATORY, TON S 847.0 Sprain/strain Neck 11/11/2007 MARIA GUADALUPE MANAGER AMBULATORY, TON S 847.0 Sprain/strain Neck 11/11/2007 MARIA GUADALUPE MANAGER AMBULATORY, TON S 847.0 Sprain/strain Neck 11/11/2007 VELASQUEZ KAUR PSYD ANN L 847.0 Sprain/strain Neck 11/11/2007 JEWELS ROMANO DO 847.0 Sprain/strain Neck 11/11/2007 VELASQUEZ KAUR PSYD ANN L 847.0 Sprain/strain Neck 11/11/2007 SEJAL MANAGER AMBULATORYSYMONE Ramos 847.0 Sprain/strain Neck 11/11/2007 RICHARD MANAGER AMBULATORY, JEWELS 847.0 Sprain/strain Neck 11/11/2007 RICHARD MANAGER AMBULATORY, JEWELS 847.0 Sprain/strain Neck 11/11/2007 RICHARD MANAGER AMBULATORY, JEWELS 847.0 Sprain/strain Neck 12/09/2007 JEWELS ROMANO [...] Region Not Elsewhere Classified 12/09/2007 MARIA GUADALUPE MANAGER AMBULATORY, TON S 739.4 Nonallopathic Lesions Of Sacral Region Not Elsewhere Classified 12/09/2007 MARIA GUADALUPE MANAGER AMBULATORY, TON S 739.3 Nonallopathic Lesions Of Lumbar Region Not Elsewhere Classified 12/09/2007 MARIA GUADALUPE MANAGER AMBULATORY, TON S 739.4 Nonallopathic Lesions Of Sacral Region Not Elsewhere Classified 12/09/2007 MARIA GUADALUPE MANAGER AMBULATORY, TON S 739.3 Nonallopathic Lesions Of Lumbar Region Not Elsewhere Classified 12/09/2007 MARIA GUADALUPE MANAGER AMBULATORY, TON S 739.4 Nonallopathic Lesions Of Sacral Region Not Elsewhere Classified 12/09/2007 MARIA GUADALUPE MANAGER AMBULATORY, TON S 739.3 Nonallopathic Lesions Of Lumbar Region Not Elsewhere Classified 12/09/2007 MARIA GUADALUPE MANAGER AMBULATORY, TON S 739.4 Nonallopathic Lesions Of Sacral Region Not Elsewhere Classified 12/09/2007 CATHERINE PERALES APRN 739.3 Nonallopathic Lesions Of Lumbar Region Not Elsewhere Classified 12/09/2007 CATHERINE PERALES APRN 739.4 Nonallopathic Lesions Of Sacral Region Not Elsewhere Classified 12/09/2007 MARIA GUADALUPE MANAGER AMBULATORY, TON S 739.3 Nonallopathic Lesions Of Lumbar Region Not Elsewhere Classified 12/09/2007 MARIA GUADALUPE MANAGER AMBULATORY, TON S 739.4 Nonallopathic Lesions Of Sacral Region Not Elsewhere Classified 12/09/2007 MARIA GUADALUPE MANAGER AMBULATORY, TON S 739.3 Nonallopathic Lesions Of Lumbar Region Not Elsewhere Classified 12/09/2007 MARIA GUADALUPE MANAGER AMBULATORY, TON S 739.4 Nonallopathic Lesions Of Sacral Region Not Elsewhere Classified 12/09/2007 MARIA GUADALUPE MANAGER AMBULATORY, TON S 739.3 Nonallopathic Lesions Of Lumbar Region Not Elsewhere Classified 12/09/2007 MARIA GUADALUPE MANAGER AMBULATORY, TON S 739.4 Nonallopathic Lesions Of Sacral Region Not Elsewhere Classified 12/09/2007 MARIA GUADALUPE MANAGER AMBULATORY, TON S 739.3 Nonallopathic Lesions Of Lumbar Region Not Elsewhere Classified 12/09/2007 MARIA GUADALUPE MANAGER AMBULATORY, TON S 739.4 Nonallopathic Lesions Of Sacral [...] Sacral Region Not Elsewhere Classified 12/09/2007 RICHARD MANAGER AMBULATORY, JEWELS 739.3 Nonallopathic Lesions Of Lumbar Region Not Elsewhere Classified 12/09/2007 RICHARDALFREDO VAUGHN JEWELS 739.4 Nonallopathic Lesions Of Sacral Region Not Elsewhere Classified 12/09/2007 RICHARD MANAGER AMBULATORY, JEWELS 739.3 Nonallopathic Lesions Of Lumbar Region Not Elsewhere Classified 12/09/2007 RICHARD MANAGER AMBULATORY, JEWELS 739.4 Nonallopathic Lesions Of Sacral Region Not Elsewhere Classified 12/09/2007 RICHARD MANAGER AMBULATORY, JEWELS 739.3 Nonallopathic Lesions Of Lumbar Region Not Elsewhere Classified 12/09/2007 RICHARD MANAGER AMBULATORY, JEWELS 739.4 Nonallopathic Lesions Of Sacral Region [...] Sprain/strain Other Unspec Site 12/30/2007 MARIA GUADALUPE MANAGER AMBULATORY, TON S 848.9 Sprain/strain Other Unspec Site 12/30/2007 MARIA GUADALUPE MANAGER AMBULATORY, TON S 848.9 Sprain/strain Other Unspec Site 12/30/2007 ISAIAS VALENZUELA MD 848.9 Sprain/strain Other Unspec Site 12/30/2007 MARIA GUADALUPE MANAGER AMBULATORY, TON S 848.9 Sprain/strain Other Unspec Site 12/30/2007 MARIA GUADALUPE MANAGER AMBULATORY, TON S 848.9 Sprain/strain Other Unspec Site 12/30/2007 MARIA GUADALUPE MANAGER AMBULATORY, TON S 848.9 Sprain/strain Other Unspec Site 12/30/2007 MARIA GUADALUPE MANAGER AMBULATORY, TON S 848.9 Sprain/strain Other Unspec Site 12/30/2007 MARIA GUADALUPE MANAGER AMBULATORY, TON S 848.9 Sprain/strain Other Unspec Site 12/30/2007 CATHERINE PERALES APRN 848.9 Sprain/strain Other Unspec Site 12/30/2007 MARIA GUADALUPE MANAGER AMBULATORY, TON S 848.9 Sprain/strain Other Unspec Site 12/30/2007 MARIA GUADALUPE MANAGER AMBULATORY, TON S 848.9 Sprain/strain Other Unspec Site 12/30/2007 MARIA GUADALUPE MANAGER AMBULATORY, TON S 848.9 Sprain/strain Other Unspec Site 12/30/2007 MARIA GUADALUPE MANAGER AMBULATORY, TON S 848.9 Sprain/strain Other Unspec Site 12/30/2007 VLEASQUEZ KAUR PSYD L 848.9 Sprain/strain Other Unspec [...] ONYCHOMYCOSIS 01/17/2008 110.1 ONYCHOMYCOSIS 01/17/2008 MARIA GUADALUPE MANAGER AMBULATORY, TON S 110.1 ONYCHOMYCOSIS 01/17/2008 MARIA GUADALUPE CHAUDHARIN, TON S 110.1 ONYCHOMYCOSIS 01/17/2008 ISAIAS VALENZUELA MD 110.1 ONYCHOMYCOSIS 01/17/2008 MARIA GUADALUPE MANAGER AMBULATORY, TON S 110.1 ONYCHOMYCOSIS 01/17/2008 MARIA GUADALUPE MANAGER AMBULATORY, TON S 110.1 ONYCHOMYCOSIS 01/17/2008 MARIA GUADALUPE MANAGER AMBULATORY, TON S 110.1 ONYCHOMYCOSIS 01/17/2008 MARIA GUADALUPE MANAGER AMBULATORY, TON S 110.1 ONYCHOMYCOSIS 01/17/2008 MARIA GUADALUPE CHAUDHARIN, TON S 110.1 ONYCHOMYCOSIS 01/17/2008 CATHERINE PERALES APRN 110.1 ONYCHOMYCOSIS 01/17/2008 MARIA GUADALUPE MANAGER AMBULATORY, TON S 110.1 ONYCHOMYCOSIS 01/17/2008 MARIA GUADALUPE CHAUDHARIN, TON S 110.1 ONYCHOMYCOSIS 01/17/2008 MARIA GUADALUPE MANAGER AMBULATORY, TON S 110.1 ONYCHOMYCOSIS 01/17/2008 MARIA GUADALUPE MANAGER AMBULATORY, TON S 110.1 ONYCHOMYCOSIS 01/17/2008 VELASQUEZ KAUR PSYD 110.1 ONYCHOMYCOSIS 01/17/2008 JEWELS ROMANO DO K 110.1 ONYCHOMYCOSIS 01/17/2008 VELASQUEZ KAUR PSYD 110.1 ONYCHOMYCOSIS 01/17/2008 SYMONE POST APRN 110.1 ONYCHOMYCOSIS 01/17/2008 JEWELS RAMOS APRN 110.1 ONYCHOMYCOSIS 01/17/2008 RICHARD MANAGER AMBULATORY, JEWELS 110.1 ONYCHOMYCOSIS 01/17/2008 RICHARD MANAGER AMBULATORY, JEWELS 110.1 ONYCHOMYCOSIS 01/21/2008 JEWELS ROMANO DO [facility] MEDICAL RECORDS 01/21/2008 [facility] MEDICAL RECORDS 01/21/2008 [facility] MEDICAL RECORDS 01/21/2008 MARIA GUADALUPE MANAGER AMBULATORY, TON S [facility] Medical Records 01/21/2008 MARJORIE STRONG APRN [facility] Medical Records 01/21/2008 [facility] Medical Records 01/21/2008 [facility] Medical Records 01/21/2008 [facility] Medical Records 01/21/2008 MARIA GUADALUPE MANAGER AMBULATORY, TON S [facility] Medical Records 01/21/2008 MARIA GUADALUPE MANAGER AMBULATORY, TON S [facility] Medical Records 01/21/2008 BIANCA SHAH, ISAIAS [facility] Medical Records 01/21/2008 MARIA GUADALUPE MANAGER AMBULATORY, TON S [facility] Medical Records 01/21/2008 MARIA GUADALUPE MANAGER AMBULATORY, TON S [facility] Medical Records 01/21/2008 MARIA GUADALUPE MANAGER AMBULATORY, TON S [facility] Medical Records 01/21/2008 MARIA GUADALUPE MANAGER AMBULATORY, TON S [facility] Medical Records 01/21/2008 MARIA GUADALUPE MANAGER AMBULATORY, TON S [facility] Medical Records 01/21/2008 CATHERINE PERALES APRN [facility] Medical Records 01/21/2008 MARIA GUADALUPE MANAGER AMBULATORY, TON S [facility] Medical Records 01/21/2008 MARIA GUADAULPE MANAGER AMBULATORY, TON S [facility] Medical Records 01/21/2008 MARIA GUADALUPE MANAGER AMBULATORY, TON S [facility] Medical Records 01/21/2008 MARIA GUADALUPE MANAGER AMBULATORY, TON S [facility] Medical Records 01/21/2008 VELASQUEZ KAUR PSYD [facility] Medical Records 01/21/2008 JEWELS ROMANO DO [facility] Medical Records 01/21/2008 VELASQUEZ KAUR PSYD [facility] Medical Records 01/21/2008 SYMONE POST APRN [facility] Medical Records 01/21/2008 RICHARD MANAGER AMBULATORY, JEWELS [facility] Medical Records 01/21/2008 RICHARD MANAGER AMBULATORY, JEWELS [facility] Medical Records 01/21/2008 RICHARD MANAGER AMBULATORY, JEWELS [facility] Medical Records 02/10/2008 JEWELS ROMANO [...] PSYD 847.9 Sprain/strain Back Unspec 02/10/2008 SEJAL MANAGER AMBULATORYSYMONE Ramos 847.9 Sprain/strain Back Unspec 02/10/2008 RICHARD MANAGER AMBULATORY, JEWELS 847.9 Sprain/strain Back Unspec 02/10/2008 RICHARD MANAGER AMBULATORY, JEWELS 847.9 Sprain/strain Back Unspec 02/10/2008 RICHARD MANAGER AMBULATORY, JEWELS 847.9 Sprain/strain Back Unspec 02/24/2008 JEWELS ROMANO DO 466.0 BRONCHITIS, ACUTE 02/24/2008 466.0 BRONCHITIS, ACUTE 02/24/2008 466.0 BRONCHITIS, ACUTE 02/24/2008 MARIA GUADALUPE MANAGER AMBULATORY, TON S 466.0 Bronchitis, Acute 02/24/2008 MARJORIE STRONG APRN 466.0 Bronchitis, Acute 02/24/2008 466.0 Bronchitis, Acute 02/24/2008 466.0 Bronchitis, Acute 02/24/2008 466.0 Bronchitis, Acute 02/24/2008 MARIA GUADALUPE MANAGER AMBULATORY, TON S 466.0 Bronchitis, Acute 02/24/2008 MARIA GUADALUPE MANAGER AMBULATORY, TON S 466.0 Bronchitis, Acute 02/24/2008 ISAIAS VALENZUELA MD 466.0 Bronchitis, Acute 02/24/2008 MARIA GUADALUPE MANAGER AMBULATORY, TON S 466.0 Bronchitis, Acute 02/24/2008 MARIA GUADALUPE MANAGER AMBULATORY, TON S 466.0 Bronchitis, Acute 02/24/2008 MARIA GUADALUPE MANAGER AMBULATORY, TON S 466.0 Bronchitis, Acute 02/24/2008 MARIA GUADALUPE MANAGER AMBULATORY, TON S 466.0 Bronchitis, Acute 02/24/2008 MARIA GUADALUPE MANAGER AMBULATORY, TON S 466.0 Bronchitis, Acute 02/24/2008 CATHERINE PERALES APRN 466.0 Bronchitis, Acute 02/24/2008 MARIA GUADALUPE MANAGER AMBULATORY, TON S 466.0 Bronchitis, Acute 02/24/2008 MARIA GUADALUPE MANAGER AMBULATORY, TON S 466.0 Bronchitis, Acute 02/24/2008 MARIA GUADALUPE MANAGER AMBULATORY, TON S 466.0 Bronchitis, Acute 02/24/2008 MARIA GUADALUPE MANAGER AMBULATORY, TON S 466.0 Bronchitis, Acute 02/24/2008 MCCLEEARY PSYD, GERONIMO L 466.0 Bronchitis, Acute 02/24/2008 ROMANO DO, EJWELS K 466.0 Bronchitis, Acute 02/24/2008 VELASQUEZ KAUR PSYD L 466.0 Bronchitis, Acute 02/24/2008 SEJAL MANAGER AMBULATORYSYMONE Ramos 466.0 Bronchitis, Acute 02/24/2008 RICHARD MANAGER AMBULATORY, JEWELS 466.0 Bronchitis, Acute 02/24/2008 RICHARD MANAGER AMBULATORY, JEWELS 466.0 Bronchitis, Acute 02/24/2008 RICHARD MANAGER AMBULATORY, JEWELS 466.0 Bronchitis, Acute 04/04/2008 ROMANO DO, JEWELS K 133.0 SCABIES 04/04/2008 133.0 SCABIES 04/04/2008 133.0 SCABIES 04/04/2008 MARIA GUADALUPE MANAGER AMBULATORY, TON S 133.0 Scabies 04/04/2008 MARJORIE STRONG APRN 133.0 Scabies 04/04/2008 133.0 Scabies 04/04/2008 133.0 Scabies 04/04/2008 133.0 Scabies 04/04/2008 MARIA GUADALUPE MANAGER AMBULATORY, TON S 133.0 Scabies 04/04/2008 MARIA GUADALUPE MANAGER AMBULATORY, TON S 133.0 Scabies 04/04/2008 BIANCA SHAH, ISAIAS 133.0 Scabies 04/04/2008 MARIA GUADALUPE MANAGER AMBULATORY, TON S 133.0 Scabies 04/04/2008 MARIA GUADALUPE MANAGER AMBULATORY, TON S 133.0 Scabies 04/04/2008 MARIA GUADALUPE MANAGER AMBULATORY, TON S 133.0 Scabies 04/04/2008 MARIA GUADALUPE MANAGER AMBULATORY, TON S 133.0 Scabies 04/04/2008 MARIA GUADALUPE MANAGER AMBULATORY, TON S 133.0 Scabies 04/04/2008 CATHERINE PERALES APRN 133.0 Scabies 04/04/2008 MARIA GUADALUPE MANAGER AMBULATORY, TON S 133.0 Scabies 04/04/2008 MARIA GUADALUPE MANAGER AMBULATORY, TON S 133.0 Scabies 04/04/2008 MARIA GUADALUPE MANAGER AMBULATORY, TON S 133.0 Scabies 04/04/2008 MARIA GUADALUPE MANAGER AMBULATORY, TON S 133.0 Scabies 04/04/2008 VELASQUEZ KAUR PSYD ANN L 133.0 Scabies 04/04/2008 ROMANO DO, JEWELS K 133.0 Scabies 04/04/2008 VELASQUEZ KAUR PSYD ANN L 133.0 Scabies 04/04/2008 POST MANAGER AMBULATORY, SYMONE D 133.0 Scabies 04/04/2008 RICHARD MANAGER AMBULATORY, JEWELS 133.0 Scabies 04/04/2008 RICHARD MANAGER AMBULATORY, JEWELS 133.0 Scabies 04/04/2008 RICHARD MANAGER AMBULATORY, JEWELS 133.0 Scabies 05/09/2008 ROMANO DO, JEWELS K 785.6 LYMPH NODES ENLARGEMENT 05/09/2008 785.6 LYMPH NODES ENLARGEMENT 05/09/2008 785.6 LYMPH NODES ENLARGEMENT 05/09/2008 MARIA GUADALUPE MANAGER AMBULATORY, TON S 785.6 Lymph Nodes Enlargement 05/09/2008 TAE MANAGER AMBULATORY, MARJORIE Alfredo 785.6 Lymph Nodes Enlargement 05/09/2008 785.6 Lymph Nodes Enlargement 05/09/2008 785.6 Lymph Nodes Enlargement 05/09/2008 785.6 Lymph Nodes Enlargement 05/09/2008 MARIA GUADALUPE MANAGER AMBULATORY, TON S 785.6 Lymph Nodes Enlargement 05/09/2008 MARIA GUADALUPE MANAGER AMBULATORY, TON S 785.6 Lymph Nodes Enlargement 05/09/2008 ISAIAS VALENZUELA MD 785.6 Lymph Nodes Enlargement 05/09/2008 MARIA GUADALUPE MANAGER AMBULATORY, TON S 785.6 Lymph Nodes Enlargement 05/09/2008 MARIA GUADALUPE MANAGER AMBULATORY, TON S 785.6 Lymph Nodes Enlargement 05/09/2008 MARIA GUADALUPE MANAGER AMBULATORY, TON S 785.6 Lymph Nodes Enlargement 05/09/2008 MARIA GUADALUPE MANAGER AMBULATORY, TON S 785.6 Lymph Nodes Enlargement 05/09/2008 MARIA GUADALUPE MANAGER AMBULATORY, TON S 785.6 Lymph Nodes Enlargement 05/09/2008 DIAZ MANAGER AMBULATORYCATHERINE 785.6 Lymph Nodes Enlargement 05/09/2008 MARIA GUADALUPE MANAGER AMBULATORY, TON S 785.6 Lymph Nodes Enlargement 05/09/2008 MARIA GUADALUPE MANAGER AMBULATORY, TON S 785.6 Lymph Nodes Enlargement 05/09/2008 MARIA GUADALUPE MANAGER AMBULATORY, TON S 785.6 Lymph Nodes Enlargement 05/09/2008 BRITNEY LERMA APRNA S 785.6 Lymph Nodes Enlargement 05/09/2008 VELASQUEZ KAUR PSYD L 785.6 Lymph Nodes Enlargement 05/09/2008 ROMANO DO JEWELS K 785.6 Lymph Nodes Enlargement 05/09/2008 VELASQUEZ KAUR PSYD ANN L 785.6 Lymph Nodes Enlargement 05/09/2008 POST SYMONE VAUGHN 785.6 Lymph Nodes Enlargement 05/09/2008 RICHARD MANAGER AMBULATORY, JEWELS 785.6 Lymph Nodes Enlargement 05/09/2008 RICHARD MANAGER AMBULATORY, JEWELS 785.6 Lymph Nodes Enlargement 05/09/2008 RICHARD MANAGER AMBULATORY, JEWELS 785.6 Lymph Nodes Enlargement 08/07/2008 ROMANO [...] Infection 08/07/2008 696.1 PSORIASIS 08/07/2008 MARIA GUADALUPE MANAGER AMBULATORY, TON S 278.02 Overweight 08/07/2008 MARIA GUADALUPE MANAGER AMBULATORY, TON S 590.9 Infection Of Kidney 08/07/2008 MARIA GUADALUPE MANAGER AMBULATORY, TON S 599.0 Urinary Tract Infection 08/07/2008 MARIA GUADALUPE MANAGER AMBULATORY, TON S 696.1 PSORIASIS 08/07/2008 MARIA GUADALUPE MANAGER AMBULATORY, TON S 278.02 Overweight 08/07/2008 MARIA GUADALUPE MANAGER AMBULATORY, TON S 590.9 Infection Of Kidney 08/07/2008 MARIA GUADALUPE MANAGER AMBULATORY, TON S 599.0 Urinary Tract Infection 08/07/2008 MARAI GUADALUPE MANAGER AMBULATORY, TON S 696.1 PSORIASIS 08/07/2008 ISAIAS VALENZUELA MD 278.02 Overweight 08/07/2008 ISAIAS VALENZUELA MD 590.9 Infection Of Kidney 08/07/2008 ISAIAS VALENZUELA MD 599.0 Urinary Tract Infection 08/07/2008 ISAIAS VALENZUELA MD 696.1 PSORIASIS 08/07/2008 MARIA GUADALUPE MANAGER AMBULATORY, TON S 278.02 Overweight 08/07/2008 MARIA GUADALUPE MANAGER AMBULATORY, TON S 590.9 Infection Of Kidney 08/07/2008 MARIA GUADALUPE MANAGER AMBULATORY, TON S 599.0 Urinary Tract Infection 08/07/2008 MARIA GUADALUPE MANAGER AMBULATORY, TON S 696.1 PSORIASIS 08/07/2008 MARIA GUADALUPE MANAGER AMBULATORY, TON S 278.02 Overweight 08/07/2008 MARIA GUADALUPE MANAGER AMBULATORY, TON S 590.9 Infection Of Kidney 08/07/2008 MARIA GUADALUPE MANAGER AMBULATORY, TON S 599.0 Urinary Tract Infection 08/07/2008 MARIA GUADALUPE MANAGER AMBULATORY, TON S 696.1 PSORIASIS 08/07/2008 MARIA GUADALUPE MANAGER AMBULATORY, TON S 278.02 Overweight 08/07/2008 MARIA GUADALUPE MANAGER AMBULATORY, TON S 590.9 Infection Of Kidney 08/07/2008 MARIA GUADALUPE MANAGER AMBULATORY, TON S 599.0 Urinary Tract Infection 08/07/2008 MARIA GUADALUPE MANAGER AMBULATORY, TON S 696.1 PSORIASIS 08/07/2008 MARIA GUADALUPE MANAGER AMBULATORY, TON S 278.02 Overweight 08/07/2008 MARIA GUADALUPE MANAGER AMBULATORY, TON S 590.9 Infection Of Kidney 08/07/2008 MARIA GUADALUPE MANAGER AMBULATORY, TON S 599.0 Urinary Tract Infection 08/07/2008 MARIA GUADALUPE MANAGER AMBULATORY, TON S 696.1 PSORIASIS 08/07/2008 MARIA GUADALUPE MANAGER AMBULATORY, TON S 278.02 Overweight 08/07/2008 MARIA GUADALUPE MANAGER AMBULATORY, TON S 590.9 Infection Of Kidney 08/07/2008 MARIA GUADALUPE MANAGER AMBULATORY, TON S 599.0 Urinary Tract Infection 08/07/2008 MARIA GUADALUPE MANAGER AMBULATORY, TON S 696.1 PSORIASIS 08/07/2008 DIAZ MANAGER AMBULATORY, CATHERINE T 278.02 Overweight 08/07/2008 DIAZ MANAGER AMBULATORY, CATHERINE T 590.9 Infection Of Kidney 08/07/2008 DIAZ MANAGER AMBULATORY, CATHERINE T 599.0 Urinary Tract Infection 08/07/2008 DIAZ MANAGER AMBULATORY, CATHERINE T 696.1 PSORIASIS 08/07/2008 MARIA GUADALUPE MANAGER AMBULATORY, TON S 278.02 Overweight 08/07/2008 MARIA GUADALUPE MANAGER AMBULATORY, TON S 590.9 Infection Of Kidney 08/07/2008 MARIA GUADALUPE MANAGER AMBULATORY, TON S 599.0 Urinary Tract Infection 08/07/2008 MARIA GUADALUPE MANAGER AMBULATORY, TON S 696.1 PSORIASIS 08/07/2008 MARIA GUADALUPE MANAGER AMBULATORY, TON S 278.02 Overweight 08/07/2008 MARIA GUADALUPE MANAGER AMBULATORY, TON S 590.9 Infection Of Kidney 08/07/2008 MARIA GUADALUPE MANAGER AMBULATORY, TON S 599.0 Urinary Tract Infection 08/07/2008 MARIA GUADALUPE MANAGER AMBULATORY, TON S 696.1 PSORIASIS 08/07/2008 MARIA GUADALUPE MANAGER AMBULATORY, TON S 278.02 Overweight 08/07/2008 MARIA GUADALUPE MANAGER AMBULATORY, TON S 590.9 Infection Of Kidney 08/07/2008 MARIA GUADALUPE MANAGER AMBULATORY, TON S 599.0 Urinary Tract Infection 08/07/2008 MARIA GUADALUPE MANAGER AMBULATORY, TON S 696.1 PSORIASIS 08/07/2008 MARIA GUADALUPE MANAGER AMBULATORY, TON S 278.02 Overweight 08/07/2008 MARIA GUADALUPE MANAGER AMBULATORY, TON S 590.9 Infection Of Kidney 08/07/2008 MARIA GUADALUPE MANAGER AMBULATORY, TON S 599.0 Urinary Tract Infection 08/07/2008 MARIA GUADALUPE MANAGER AMBULATORY, TON S 696.1 PSORIASIS 08/07/2008 VELASQUEZ KAUR [...] SYMONE POST APRN 696.1 PSORIASIS 08/07/2008 RICHARD OJHANA JEWELS 278.02 Overweight 08/07/2008 STEVE RAMOS APRNETTE 590.9 Infection Of Kidney 08/07/2008 RICHARD MANAGER AMBULATORY, JEWELS 599.0 Urinary Tract Infection 08/07/2008 RICHARD MANAGER AMBULATORY, JEWELS 696.1 PSORIASIS 08/07/2008 RICHARD MANAGER AMBULATORY, JEWELS 278.02 Overweight 08/07/2008 RICHARD MANAGER AMBULATORY, JEWELS 590.9 Infection Of Kidney 08/07/2008 RICHARD MANAGER AMBULATORY, JEWELS 599.0 Urinary Tract Infection 08/07/2008 RICHARD MANAGER AMBULATORY, JEWELS 696.1 PSORIASIS 08/07/2008 RICHARD MANAGER AMBULATORY, JEWELS 278.02 Overweight 08/07/2008 RICHARD MANAGER AMBULATORY, JEWELS 590.9 Infection Of Kidney 08/07/2008 RICHARD MANAGER AMBULATORY, JEWELS 599.0 Urinary Tract Infection 08/07/2008 RICHARD MANAGER AMBULATORY, JEWELS 696.1 PSORIASIS 08/10/2008 JEWELS ROMANO DO K 784.0 HEADACHE 08/10/2008 784.0 HEADACHE 08/10/2008 784.0 HEADACHE 08/10/2008 MARIA GUADALUPE MANAGER AMBULATORY, TON S 784.0 Headache 08/10/2008 MARJORIE STRONG APRN 784.0 Headache 08/10/2008 784.0 Headache 08/10/2008 784.0 Headache 08/10/2008 784.0 Headache 08/10/2008 MARIA GUADALUPE MANAGER AMBULATORY, TON S 784.0 Headache 08/10/2008 MARIA GUADALUPE MANAGER AMBULATORY, TON S 784.0 Headache 08/10/2008 ISAIAS VALENZUELA MD 784.0 Headache 08/10/2008 MARIA GUADALUPE MANAGER AMBULATORY, TON S 784.0 Headache 08/10/2008 MARIA GUADALUPE MANAGER AMBULATORY, TON S 784.0 Headache 08/10/2008 MARIA GUADALUPE MANAGER AMBULATORY, TON S 784.0 Headache 08/10/2008 MARIA GUADALUPE MANAGER AMBULATORY, TON S 784.0 Headache 08/10/2008 MARIA GUADALUPE MANAGER AMBULATORY, TON S 784.0 Headache 08/10/2008 DIAZ MANAGER AMBULATORYCATHERINE Ramos 784.0 Headache 08/10/2008 MARIA GUADALUPE MANAGER AMBULATORY, TON S 784.0 Headache 08/10/2008 MARIA GUADALUPE MANAGER AMBULATORY, TON S 784.0 Headache 08/10/2008 MARIA GUADALUPE MANAGER AMBULATORY, TON S 784.0 Headache 08/10/2008 MARIA GUADALUPE MANAGER AMBULATORY, TON S 784.0 Headache 08/10/2008 VELASQUEZ KAUR PSYD L 784.0 Headache 08/10/2008 ROMANO JEWELS OTTO K 784.0 Headache 08/10/2008 VELASQUEZ KAUR PSYD ANN L 784.0 Headache 08/10/2008 POST MANAGER AMBULATORYSYMONE Ramos 784.0 Headache 08/10/2008 RICHARD MANAGER AMBULATORY, JEWELS 784.0 Headache 08/10/2008 RICHARD MANAGER AMBULATORY, JEWELS 784.0 Headache 08/10/2008 RICHARD MANAGER AMBULATORY, JEWELS 784.0 Headache 08/30/2008 ROMANO DOJEWELS K 788.1 DYSURIA 08/30/2008 788.1 DYSURIA 08/30/2008 788.1 DYSURIA 08/30/2008 MARIA GUADALUPE CHAUDHARIN, TON S 788.1 Dysuria 08/30/2008 MARJORIE STRONG APRN 788.1 Dysuria 08/30/2008 788.1 Dysuria 08/30/2008 788.1 Dysuria 08/30/2008 788.1 Dysuria 08/30/2008 MARIA GUADALUPE MANAGER AMBULATORY, TON S 788.1 Dysuria 08/30/2008 MARIA GUADALUPE MANAGER AMBULATORY, TON S 788.1 Dysuria 08/30/2008 BIANCA SHAH, ISAIAS 788.1 Dysuria 08/30/2008 MARIA GUADALUPE MANAGER AMBULATORY, TON S 788.1 Dysuria 08/30/2008 MARIA GUADALUPE MANAGER AMBULATORY, TON S 788.1 Dysuria 08/30/2008 MARIA GUADALUPE MANAGER AMBULATORY, TON S 788.1 Dysuria 08/30/2008 MARIA GUADALUPE MANAGER AMBULATORY, TON S 788.1 Dysuria 08/30/2008 MARIA GUADALUPE MANAGER AMBULATORY, TON S 788.1 Dysuria 08/30/2008 CATHERINE PERALES APRN 788.1 Dysuria 08/30/2008 MARIA GUADALUPE MANAGER AMBULATORY, TON S 788.1 Dysuria 08/30/2008 MARIA GUADALUPE MANAGER AMBULATORY, TON S 788.1 Dysuria 08/30/2008 MARIA GUADALUPE MANAGER AMBULATORY, TON S 788.1 Dysuria 08/30/2008 MARIA GUADALUPE MANAGER AMBULATORY, TON S 788.1 Dysuria 08/30/2008 VELASQUEZ KAUR PSYD L 788.1 Dysuria 08/30/2008 ROMANO DO, JEWELS K 788.1 Dysuria 08/30/2008 VELASQUEZ KAUR PSYD ANN L 788.1 Dysuria 08/30/2008 POST SYMNOE VAUGHN 788.1 Dysuria 08/30/2008 RICHARD MANAGER AMBULATORY, JEWELS 788.1 Dysuria 08/30/2008 RICHARD MANAGER AMBULATORY, JEWELS 788.1 Dysuria 08/30/2008 RICHARD MANAGER AMBULATORY, JEWELS 788.1 Dysuria 09/18/2008 ROMANO DO, JEWELS K 789.00 ABDOMINAL PAIN UNSPECIFIED SITE 09/18/2008 789.00 ABDOMINAL PAIN UNSPECIFIED SITE 09/18/2008 789.00 ABDOMINAL PAIN UNSPECIFIED SITE 09/18/2008 MARIA GUADALUPE VUAGHN, TON S 789.00 Abdominal Pain Unspecified Site [...] MD 789.00 Abdominal Pain Unspecified Site 09/18/2008 MARIAG UADALUPE MANAGER AMBULATORY, TON S 789.00 Abdominal Pain Unspecified Site 09/18/2008 MARIA GUADALUPE CHAUDHARIN, TON S 789.00 Abdominal Pain Unspecified Site 09/18/2008 MARIA GUADALUPE MANAGER AMBULATORY, TON S 789.00 Abdominal Pain Unspecified Site 09/18/2008 MARIA GUADALUPE CHAUDHARIN, TON S 789.00 Abdominal Pain Unspecified Site 09/18/2008 MARIA GUADALUPE MANAGER AMBULATORY, TON S 789.00 Abdominal Pain Unspecified Site 09/18/2008 CATHERINE PERALES APRN 789.00 Abdominal Pain Unspecified Site 09/18/2008 MARIA GUADALUPE VAUGHN, TON S 789.00 Abdominal Pain Unspecified Site 09/18/2008 MARIA GUADALUPE MANAGER AMBULATORY, TON S 789.00 Abdominal Pain Unspecified Site 09/18/2008 MARIA GUADALUPE MANAGER AMBULATORY, TON S 789.00 Abdominal Pain Unspecified Site 09/18/2008 MARIA GUADALUPE MANAGER AMBULATORY, TON S 789.00 Abdominal Pain Unspecified Site 09/18/2008 VELASQUEZ KAUR PSYD ANN L 789.00 Abdominal Pain Unspecified Site 09/18/2008 JEWELS ROMANO DO K 789.00 Abdominal Pain Unspecified Site 09/18/2008 VELASQUEZ KAUR PSYD ANN L 789.00 Abdominal Pain Unspecified Site 09/18/2008 POST MANAGER AMBULATORY, SYMONE D 789.00 Abdominal Pain Unspecified Site 09/18/2008 RICHARD MANAGER AMBULATORY, JEWELS 789.00 Abdominal Pain Unspecified Site 09/18/2008 RICHARD MANAGER AMBULATORY, JEWELS 789.00 Abdominal Pain Unspecified Site 09/18/2008 RICHARD MANAGER AMBULATORY, JEWELS 789.00 Abdominal Pain Unspecified Site 10/18/2008 [...] APRN 009.1 Gastroenteritis Infect 10/18/2008 MARIA GUADALUPE MANAGER AMBULATORY, TON S 009.1 Gastroenteritis Infect 10/18/2008 MARIA [...] Ventura APRN 009.1 Gastroenteritis Infect 10/18/2008 RICHARD MANAGER AMBULATORY, JEWELS 009.1 Gastroenteritis Infect 10/18/2008 RICHARD MANAGER AMBULATORY, JEWELS 009.1 Gastroenteritis Infect 10/18/2008 RICHARD MANAGER AMBULATORY, JEWELS 009.1 Gastroenteritis Infect 10/20/2008 ROMANO JEWELS [...] 008.62 Gastroenteritis Viral Adenovirus 10/20/2008 MARIA GUADALUPE MANAGER AMBULATORY, TON S 008.62 Gastroenteritis Viral Adenovirus 10/20/2008 MARIA GUADALUPE MANAGER AMBULATORY, TON S 008.62 Gastroenteritis Viral Adenovirus 10/20/2008 MARIA GUADALUPE MANAGER AMBULATORY, TON S 008.62 Gastroenteritis Viral Adenovirus 10/20/2008 MARIA GUADALUPE MANAGER AMBULATORY, TON S 008.62 Gastroenteritis Viral Adenovirus 10/20/2008 VELASQUEZ KAUR PSYD ANN L 008.62 Gastroenteritis Viral Adenovirus 10/20/2008 JEWELS ROMANO DO 008.62 Gastroenteritis Viral Adenovirus 10/20/2008 VELASQUEZ KAUR PSYD ANN L 008.62 Gastroenteritis Viral Adenovirus 10/20/2008 POST MANAGER AMBULATORYSYMONE Ramos 008.62 Gastroenteritis Viral Adenovirus 10/20/2008 RICHARD MANAGER AMBULATORY, JEWELS 008.62 Gastroenteritis Viral Adenovirus 10/20/2008 RICHARD MANAGER AMBULATORY, JEWELS 008.62 Gastroenteritis Viral Adenovirus 10/20/2008 RICHARD MANAGER AMBULATORY, JEWELS 008.62 Gastroenteritis Viral Adenovirus 05/08/2009 JEWELS [...] 461.1 Acute Frontal Sinusitis 05/08/2009 MARIA GUADALUPE MANAGER AMBULATORY, TON S 719.49 PAIN IN JOINT, MULTIPLE SITES 05/08/2009 MARIA GUADALUPE MANAGER AMBULATORY, TON S 461.1 Acute Frontal Sinusitis 05/08/2009 MARIA GUADALUPE MANAGER AMBULATORY, TON S 719.49 PAIN IN JOINT, MULTIPLE SITES 05/08/2009 BIANCA SHAH, ISAIAS 461.1 Acute Frontal Sinusitis 05/08/2009 ISAIAS VALENZUELA MD 719.49 PAIN IN JOINT, MULTIPLE SITES 05/08/2009 MARIA GUADALUPE MANAGER AMBULATORY, TON S 461.1 Acute Frontal Sinusitis 05/08/2009 MARIA GUADALUPE MANAGER AMBULATORY, TON S 719.49 PAIN IN JOINT, MULTIPLE SITES 05/08/2009 MARIA GUADALUPE MANAGER AMBULATORY, TON S 461.1 Acute Frontal Sinusitis 05/08/2009 MARIA GUADALUPE MANAGER AMBULATORY, TON S 719.49 PAIN IN JOINT, MULTIPLE SITES 05/08/2009 MARIA GUADALUPE MANAGER AMBULATORY, TON S 461.1 Acute Frontal Sinusitis 05/08/2009 MARIA GUADALUPE MANAGER AMBULATORY, TON S 719.49 PAIN IN JOINT, MULTIPLE SITES 05/08/2009 MARIA GUADALUPE MANAGER AMBULATORY, TON S 461.1 Acute Frontal Sinusitis 05/08/2009 MARIA GUADALUPE MANAGER AMBULATORY, TON S 719.49 PAIN IN JOINT, MULTIPLE SITES 05/08/2009 MARIA GUADALUPE MANAGER AMBULATORY, TON S 461.1 Acute Frontal Sinusitis 05/08/2009 MARIA GUADALUPE MANAGER AMBULATORY, TON S 719.49 PAIN IN JOINT, MULTIPLE SITES 05/08/2009 CATHERINE PERALES APRN 461.1 Acute Frontal Sinusitis 05/08/2009 CATHERINE PERALES APRN 719.49 PAIN IN JOINT, MULTIPLE SITES 05/08/2009 MARIA GUADALUPE MANAGER AMBULATORY, TON S 461.1 Acute Frontal Sinusitis 05/08/2009 MARIA GUADALUPE MANAGER AMBULATORY, TON S 719.49 PAIN IN JOINT, MULTIPLE SITES 05/08/2009 MARIA GUADALUPE MANAGER AMBULATORY, TON S 461.1 Acute Frontal Sinusitis 05/08/2009 MARIA GUADALUPE MANAGER AMBULATORY, TON S 719.49 PAIN IN JOINT, MULTIPLE SITES 05/08/2009 MARIA GUADALUPE MANAGER AMBULATORY, TON S 461.1 Acute Frontal Sinusitis 05/08/2009 MARIA GUADALUPE MANAGER AMBULATORY, TON S 719.49 PAIN IN JOINT, MULTIPLE SITES 05/08/2009 MARIA GUADALUPE MANAGER AMBULATORY TON S 461.1 Acute Frontal Sinusitis 05/08/2009 MARIA GUADALUPE MANAGER AMBULATORY, TON S 719.49 PAIN IN JOINT, MULTIPLE [...] PAIN IN JOINT, MULTIPLE SITES 05/08/2009 RICHARD MANAGER AMBULATORY, JEWELS 461.1 Acute Frontal Sinusitis 05/08/2009 RICHARD MANAGER AMBULATORY, JEWELS 719.49 PAIN IN JOINT, MULTIPLE SITES 05/08/2009 RICHARD MANAGER AMBULATORY, JEWELS 461.1 Acute Frontal Sinusitis 05/08/2009 RICHARD MANAGER AMBULATORY, JEWELS 719.49 PAIN IN JOINT, MULTIPLE SITES 05/08/2009 RICHARD MANAGER AMBULATORY, JEWELS 461.1 Acute Frontal Sinusitis 05/08/2009 RICHARD MANAGER AMBULATORY, JEWELS 719.49 PAIN IN JOINT, MULTIPLE SITES 05/24/2009 ROMANO DOSACHAA K 465.9 UPPER RESPIRATORY INFECTION 05/24/2009 465.9 UPPER RESPIRATORY INFECTION 05/24/2009 465.9 UPPER RESPIRATORY INFECTION 05/24/2009 TON ELRMA APRN S 465.9 Upper Respiratory Infection 05/24/2009 MARJORIE STRONG APRN 465.9 Upper Respiratory Infection 05/24/2009 465.9 Upper Respiratory Infection 05/24/2009 465.9 Upper Respiratory Infection 05/24/2009 465.9 Upper Respiratory Infection 05/24/2009 MARIA GUADALUPE MANAGER AMBULATORY, TON S 465.9 Upper Respiratory Infection 05/24/2009 MARIA GUADALUPE MANAGER AMBULATORY, TON S 465.9 Upper Respiratory Infection 05/24/2009 ISAIAS VALENZUELA MD 465.9 Upper Respiratory Infection 05/24/2009 MARIA GUADALUPE MANAGER AMBULATORY, TON S 465.9 Upper Respiratory Infection 05/24/2009 MARIA GUADALUPE MANAGER AMBULATORY, TON S 465.9 Upper Respiratory Infection 05/24/2009 MARIA GUADALUPE MANAGER AMBULATORY, TON S 465.9 Upper Respiratory Infection 05/24/2009 MARIA GUADALUPE MANAGER AMBULATORY, TON S 465.9 Upper Respiratory Infection 05/24/2009 MARIA GUADALUPE MANAGER AMBULATORY, TON S 465.9 Upper Respiratory Infection 05/24/2009 DIAZ MANAGER AMBULATORYCATHERINE Ramos 465.9 Upper Respiratory Infection 05/24/2009 MARIA GUADALUPE MANAGER AMBULATORY, TON S 465.9 Upper Respiratory Infection 05/24/2009 MARIA GUADALUPE MANAGER AMBULATORY, TON S 465.9 Upper Respiratory Infection 05/24/2009 MARIA GUADALUPE MANAGER AMBULATORY, TON S 465.9 Upper Respiratory Infection 05/24/2009 MARIA GUADALUPE MANAGER AMBULATORY, TON S 465.9 Upper Respiratory Infection 05/24/2009 VELASQUEZ KAUR PSYD L 465.9 Upper Respiratory Infection 05/24/2009 JEWELS ROMANO DO 465.9 Upper Respiratory Infection 05/24/2009 VELASQUEZ KAUR PSYD ANN L 465.9 Upper Respiratory Infection 05/24/2009 SYMONE POST APRN 465.9 Upper Respiratory Infection 05/24/2009 RICHARD MANAGER AMBULATORY, JEWELS 465.9 Upper Respiratory Infection 05/24/2009 RICHARD MANAGER AMBULATORY, JEWELS 465.9 Upper Respiratory Infection 05/24/2009 RICHARD MANAGER AMBULATORY, JEWELS 465.9 Upper Respiratory Infection 06/01/2009 JEWELS [...] 786.59 Other Chest Pain 06/01/2009 MARIA GUADALUPE MANAGER AMBULATORY, TON S 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 OF DRUGS, TOBACCO USE DISORDER 06/01/2009 MARIA GUADALUPE MANAGER AMBULATORY, TON S 401.1 HYPERTENSION, BENIGN ESSENTIAL 06/01/2009 MARIA GUADALUPE MANAGER AMBULATORY, TON S 786.59 Other Chest Pain 06/01/2009 MARIA GUADALUPE MANAGER AMBULATORY, TON S 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 OF DRUGS, TOBACCO USE DISORDER 06/01/2009 MARIA GUADALUPE MANAGER AMBULATORY, TON S 401.1 HYPERTENSION, BENIGN ESSENTIAL 06/01/2009 MARIA GUADALUPE MANAGER AMBULATORY, TON S 786.59 Other Chest Pain 06/01/2009 MARIA GUADALUPE MANAGER AMBULATORY, TON S 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 OF DRUGS, TOBACCO USE DISORDER 06/01/2009 MARIA GUADALUPE MANAGER AMBULATORY, TON S 401.1 HYPERTENSION, BENIGN ESSENTIAL 06/01/2009 MARIA GUADALUPE MANAGER AMBULATORY, TON S 786.59 Other Chest Pain 06/01/2009 MARIA GUADALUPE MANAGER AMBULATORY, TON S 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 OF DRUGS, TOBACCO USE DISORDER 06/01/2009 MARIA GUADALUPE MANAGER AMBULATORY, TON S 401.1 HYPERTENSION, BENIGN ESSENTIAL 06/01/2009 MARIA GUADALUPE MANAGER AMBULATORY, TON S 786.59 Other Chest Pain 06/01/2009 MARIA GUADALUPE MANAGER AMBULATORY, TON S 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 OF DRUGS, TOBACCO USE DISORDER 06/01/2009 MARIA GUADALUPE MANAGER AMBULATORY, TON S 401.1 HYPERTENSION, BENIGN ESSENTIAL 06/01/2009 MARIA GUADALUPE MANAGER AMBULATORY, TON S 786.59 Other Chest Pain 06/01/2009 CATHERINE PERALES APRN T 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 OF DRUGS, TOBACCO USE DISORDER 06/01/2009 CATHERINE PERALES APRN T 401.1 HYPERTENSION, BENIGN ESSENTIAL 06/01/2009 DIAZ VAUGHN CATHERINE T 786.59 Other Chest Pain 06/01/2009 MARIA GUADALUPE MANAGER AMBULATORY, TON S 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 OF DRUGS, TOBACCO USE DISORDER 06/01/2009 MARIA GUADALUPE MANAGER AMBULATORY, TON S 401.1 HYPERTENSION, BENIGN ESSENTIAL 06/01/2009 MARIA GUADALUPE MANAGER AMBULATORY, TON S 786.59 Other Chest Pain 06/01/2009 MARIA GUADALUPE MANAGER AMBULATORY, TON S 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 OF DRUGS, TOBACCO USE DISORDER 06/01/2009 MARIA GUADALUPE VAUGHN, TON S 401.1 HYPERTENSION, BENIGN ESSENTIAL 06/01/2009 MARIA GUADALUPE MANAGER AMBULATORY, TON S 786.59 Other Chest Pain 06/01/2009 MARIA GUADALUPE MANAGER AMBULATORY, TON S 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 OF DRUGS, TOBACCO USE DISORDER 06/01/2009 MARIA GUADALUPE MANAGER AMBULATORY, TON S 401.1 HYPERTENSION, BENIGN ESSENTIAL 06/01/2009 MARIA GUADALUPE MANAGER AMBULATORY, TON S 786.59 Other Chest Pain 06/01/2009 MARIA GUADALUPE MANAGER AMBULATORY, TON S 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 OF DRUGS, TOBACCO USE DISORDER 06/01/2009 MARIA GUADALUPE VAUGHN, TON S 401.1 HYPERTENSION, BENIGN ESSENTIAL 06/01/2009 MARIA GUADALUPE MANAGER AMBULATORY, TON S 786.59 Other Chest Pain 06/01/2009 [...] APRN 401.1 HYPERTENSION, BENIGN ESSENTIAL 06/01/2009 RICHARD MANAGER AMBULATORY, JEWELS 786.59 Other Chest Pain 06/01/2009 RICHARD MANAGER AMBULATORY, JEWELS 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 OF DRUGS, TOBACCO USE DISORDER 06/01/2009 RICHARD MANAGER AMBULATORY, JEWELS 401.1 HYPERTENSION, BENIGN ESSENTIAL 06/01/2009 RICHARD MANAGER AMBULATORY, JEWELS 786.59 Other Chest Pain 06/01/2009 RICHARD MANAGER AMBULATORY, JEWELS 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 OF DRUGS, TOBACCO USE DISORDER 06/01/2009 RICHARD MANAGER AMBULATORY, JEWELS 401.1 HYPERTENSION, BENIGN ESSENTIAL 06/01/2009 RICHARD MANAGER AMBULATORY, JEWELS 786.59 Other Chest Pain 06/18/2009 JEWELS [...] S 787.02 Nausea Alone 06/18/2009 MARIA GUADALUPE MANAGER AMBULATORY, TON S 787.02 Nausea Alone 06/18/2009 MARIA GUADALUPE MANAGER AMBULATORY, TON S 787.02 Nausea Alone 06/18/2009 MARIA GUADALUPE MANAGER AMBULATORY, TON S 787.02 Nausea Alone 06/18/2009 CATHERINE PERALES APRN 787.02 Nausea Alone 06/18/2009 MARIA GUADALUPE MANAGER AMBULATORY, TON S 787.02 Nausea Alone 06/18/2009 MARIA GUADALUPE MANAGER AMBULATORY, TON S 787.02 Nausea Alone 06/18/2009 MARIA GUADALUPE VAUGHN TON S 787.02 Nausea Alone 06/18/2009 MARIA GUADALUPE MANAGER AMBULATORY, TON S 787.02 Nausea Alone 06/18/2009 VELASQUEZ KAUR PSYD 787.02 Nausea Alone 06/18/2009 JEWELS ROMANO DO 787.02 Nausea Alone 06/18/2009 VELASQUEZ KAUR PSYD L 787.02 Nausea Alone 06/18/2009 POST MANAGER AMBULATORYSYMONE 787.02 Nausea Alone 06/18/2009 RICHARD MANAGER AMBULATORY, JEWELS 787.02 Nausea Alone 06/18/2009 RICHARD MANAGER AMBULATORY, JEWELS 787.02 Nausea Alone 06/18/2009 RICHARD MANAGER AMBULATORY, JEWELS 787.02 Nausea Alone 07/25/2009 JEWELS ROMANO DO 493.90 ASTHMA, UNSPECIFIED, UNSPECIFIED 07/25/2009 493.90 ASTHMA, UNSPECIFIED, UNSPECIFIED 07/25/2009 493.90 ASTHMA, UNSPECIFIED, UNSPECIFIED 07/25/2009 MARIA GUADALUPE MANAGER AMBULATORY, TON S 493.90 ASTHMA, UNSPECIFIED, UNSPECIFIED 07/25/2009 MARJORIE STRONG APRN 493.90 ASTHMA, UNSPECIFIED, UNSPECIFIED 07/25/2009 493.90 ASTHMA, UNSPECIFIED, UNSPECIFIED 07/25/2009 493.90 ASTHMA, UNSPECIFIED, UNSPECIFIED 07/25/2009 493.90 ASTHMA, UNSPECIFIED, UNSPECIFIED 07/25/2009 MARIA GUADALUPE MANAGER AMBULATORY, TON S 493.90 ASTHMA, UNSPECIFIED, UNSPECIFIED 07/25/2009 MARIA GUADALUPE MANAGER AMBULATORY, TON S 493.90 ASTHMA, UNSPECIFIED, UNSPECIFIED 07/25/2009 BIANCA SHAH, ISAIAS 493.90 ASTHMA, UNSPECIFIED, UNSPECIFIED 07/25/2009 MARIA GUADALUPE MANAGER AMBULATORY, TON S 493.90 ASTHMA, UNSPECIFIED, UNSPECIFIED 07/25/2009 MARIA GUADALUPE MANAGER AMBULATORY, TON S 493.90 ASTHMA, UNSPECIFIED, UNSPECIFIED 07/25/2009 MARIA GUADALUPE MANAGER AMBULATORY, TON S 493.90 ASTHMA, UNSPECIFIED, UNSPECIFIED 07/25/2009 MARIA GUADALUPE MANAGER AMBULATORY, TON S 493.90 ASTHMA, UNSPECIFIED, UNSPECIFIED 07/25/2009 MARIA GUADALUPE MANAGER AMBULATORY, TON S 493.90 ASTHMA, UNSPECIFIED, UNSPECIFIED 07/25/2009 CATHERINE PERALES APRN 493.90 ASTHMA, UNSPECIFIED, UNSPECIFIED 07/25/2009 MARIA GUADALUPE MANAGER AMBULATORY, TON S 493.90 ASTHMA, UNSPECIFIED, UNSPECIFIED 07/25/2009 MARIA GUADALUPE MANAGER AMBULATORY, TON S 493.90 ASTHMA, UNSPECIFIED, UNSPECIFIED 07/25/2009 MARIA GUADALUPE MANAGER AMBULATORY, TON S 493.90 ASTHMA, UNSPECIFIED, UNSPECIFIED 07/25/2009 MARIA GUADALUPE MANAGER AMBULATORY, TON S 493.90 ASTHMA, UNSPECIFIED, UNSPECIFIED 07/25/2009 VELASQUEZ KAUR PSYD 493.90 ASTHMA, UNSPECIFIED, UNSPECIFIED 07/25/2009 JEWELS ROMANO DO 493.90 ASTHMA, UNSPECIFIED, UNSPECIFIED 07/25/2009 VELASQUEZ KAUR PSYD 493.90 ASTHMA, UNSPECIFIED, UNSPECIFIED 07/25/2009 SYMONE POST APRN 493.90 ASTHMA, UNSPECIFIED, UNSPECIFIED 07/25/2009 RICHARD MANAGER AMBULATORY, JEWELS 493.90 ASTHMA, UNSPECIFIED, UNSPECIFIED 07/25/2009 RICHARD MANAGER AMBULATORY, JEWELS 493.90 ASTHMA, UNSPECIFIED, UNSPECIFIED 07/25/2009 RICHARD MANAGER AMBULATORY, JEWELS 493.90 ASTHMA, UNSPECIFIED, UNSPECIFIED 12/27/2009 JEWELS [...] FAM HX DIABETES MELLITUS 12/27/2009 MARIA GUADALUPE MANAGER AMBULATORY, TON S 112.3 Candidiasis, Of Skin And Nails 12/27/2009 MARIA GUADALUPE MANAGER AMBULATORY, TON S 780.79 fatigue 12/27/2009 MARIA GUADALUPE MANAGER AMBULATORY, TON S V18.0 FAM HX DIABETES MELLITUS [...] FAM HX DIABETES MELLITUS 12/27/2009 MARIA GUADALUPE MANAGER AMBULATORY, TON S 112.3 Candidiasis, Of Skin And Nails 12/27/2009 MARIA GUADALUPE MANAGER AMBULATORY, TON S 780.79 fatigue 12/27/2009 MARIA GUADALUPE MANAGER AMBULATORY, TON S V18.0 FAM HX DIABETES MELLITUS 12/27/2009 MARIA GUADALUPE MANAGER AMBULATORY, TON S 112.3 Candidiasis, Of Skin And Nails 12/27/2009 MARIA GUADALUPE CHAUDHARIN, TON S 780.79 fatigue 12/27/2009 MARIA GUADALUPE MANAGER AMBULATORY, TON S V18.0 FAM HX DIABETES MELLITUS 12/27/2009 ISAIAS VALENZUELA MD 112.3 Candidiasis, Of Skin And Nails 12/27/2009 ISAIAS VALENZUELA MD 780.79 fatigue 12/27/2009 ISAIAS VALENZUELA MD V18.0 FAM HX DIABETES MELLITUS 12/27/2009 MARIA GUADALUPE MANAGER AMBULATORY, TON S 112.3 Candidiasis, Of Skin And Nails 12/27/2009 MARIA GUADALUPE CHAUDHARIN, TON S 780.79 fatigue 12/27/2009 MARIA GUADALUPE MANAGER AMBULATORY, TON S V18.0 FAM HX DIABETES MELLITUS 12/27/2009 MARIA GUADALUPE MANAGER AMBULATORY, TON S 112.3 Candidiasis, Of Skin And Nails 12/27/2009 MARIA GUADALUPE MANAGER AMBULATORY, TON S 780.79 fatigue 12/27/2009 MARIA GUADALUPE MANAGER AMBULATORY, TON S V18.0 FAM HX DIABETES MELLITUS 12/27/2009 MARIA GUADALUPE MANAGER AMBULATORY, TON S 112.3 Candidiasis, Of Skin And Nails 12/27/2009 MARIA GUADALUPE MANAGER AMBULATORY, TON S 780.79 FATIGUE 12/27/2009 MARIA GUADALUPE MANAGER AMBULATORY, TON S V18.0 FAM HX DIABETES MELLITUS 12/27/2009 MARIA GUADALUPE MANAGER AMBULATORY, TON S 112.3 Candidiasis, Of Skin And Nails 12/27/2009 MARIA GUADALUPE MANAGER AMBULATORY, TON S 780.79 FATIGUE 12/27/2009 MARIA GUADALUPE MANAGER AMBULATORY, TON S V18.0 FAM HX DIABETES MELLITUS 12/27/2009 MARIA GUADALUPE MANAGER AMBULATORY, TON S 112.3 Candidiasis, Of Skin And Nails 12/27/2009 MARIA GUADALUPE MANAGER AMBULATORY, TON S 780.79 FATIGUE 12/27/2009 MARIA GUADALUPE MANAGER AMBULATORY, TON S V18.0 FAM HX DIABETES MELLITUS 12/27/2009 CATHERINE PERALES APRN 112.3 Candidiasis, Of Skin And Nails 12/27/2009 CATHERINE PERALES APRN 780.79 FATIGUE 12/27/2009 CATHERINE PERALES APRN V18.0 FAM HX DIABETES MELLITUS 12/27/2009 MARIA GUADALUPE MANAGER AMBULATORY, TON S 112.3 Candidiasis, Of Skin And Nails 12/27/2009 MARIA GUADALUPE MANAGER AMBULATORY, TON S 780.79 FATIGUE 12/27/2009 MARIA GUADALUPE MANAGER AMBULATORY, TON S V18.0 FAM HX DIABETES MELLITUS 12/27/2009 MARIA GUADALUPE MANAGER AMBULATORY, TON S 112.3 Candidiasis, Of Skin And Nails 12/27/2009 MARIA GUADALUPE MANAGER AMBULATORY, TON S 780.79 FATIGUE 12/27/2009 MARIA GUADALUPE MANAGER AMBULATORY, TON S V18.0 FAM HX DIABETES MELLITUS 12/27/2009 MARIA GUADALUPE MANAGER AMBULATORY, TON S 112.3 Candidiasis, Of Skin And Nails 12/27/2009 MARIA GUADALUPE MANAGER AMBULATORY, TON S 780.79 FATIGUE 12/27/2009 MARIA GUADALUPE MANAGER AMBULATORY, TON S V18.0 FAM HX DIABETES MELLITUS 12/27/2009 MARIA GUADALUPE MANAGER AMBULATORY, TON S 112.3 Candidiasis, Of Skin And Nails 12/27/2009 MARIA GUADALUPE MANAGER AMBULATORY, TON S 780.79 FATIGUE 12/27/2009 MARIA GUADALUPE MANAGER AMBULATORY, TON S V18.0 FAM HX DIABETES MELLITUS [...] V18.0 FAM HX DIABETES MELLITUS 12/27/2009 RICHARD MANAGER AMBULATORY, JEWELS 112.3 Candidiasis, Of Skin And Nails 12/27/2009 RICHARD MANAGER AMBULATORY, JEWELS 780.79 FATIGUE 12/27/2009 RICHARD MANAGER AMBULATORY, JEWELS V18.0 FAM HX DIABETES MELLITUS 12/27/2009 RICHARD MANAGER AMBULATORY, JEWLES 112.3 Candidiasis, Of Skin And Nails 12/27/2009 RICHARD MANAGER AMBULATORY, JEWELS 780.79 FATIGUE 12/27/2009 RICHARD MANAGER AMBULATORY, JEWELS V18.0 FAM HX DIABETES MELLITUS 12/27/2009 RICHARD MANAGER AMBULATORY, JEWELS 112.3 Candidiasis, Of Skin And Nails 12/27/2009 RICHARD MANAGER AMBULATORY, JEWELS 780.79 FATIGUE 12/27/2009 RICHARD MANAGER AMBULATORY, JEWELS V18.0 FAM HX DIABETES MELLITUS 01/14/2010 [...] DERMATITIS AND RELATED CONDITIONS 01/14/2010 MARIA GUADALUPE MANAGER AMBULATORY, TON S 691.8 OTHER ATOPIC DERMATITIS AND RELATED CONDITIONS 01/14/2010 MARIA GUADALUPE MANAGER AMBULATORY, TON S 691.8 OTHER ATOPIC DERMATITIS AND RELATED CONDITIONS 01/14/2010 ISAIAS VALENZUELA MD 691.8 OTHER ATOPIC DERMATITIS AND RELATED CONDITIONS 01/14/2010 MARIA GUADALUPE MANAGER AMBULATORY, TON S 691.8 OTHER ATOPIC DERMATITIS AND RELATED CONDITIONS 01/14/2010 MARI AGUADALUPE MANAGER AMBULATORY, TON S 691.8 OTHER ATOPIC DERMATITIS AND RELATED CONDITIONS 01/14/2010 MARIA GUADALUPE MANAGER AMBULATORY, TON S 691.8 OTHER ATOPIC DERMATITIS AND RELATED CONDITIONS 01/14/2010 MARIA GUADALUPE MANAGER AMBULATORY, TON S 691.8 OTHER ATOPIC DERMATITIS AND RELATED CONDITIONS 01/14/2010 MARIA GUADALUPE MANAGER AMBULATORY, TON S 691.8 OTHER ATOPIC DERMATITIS AND RELATED CONDITIONS 01/14/2010 CATHERINE PERALES APRN 691.8 OTHER ATOPIC DERMATITIS AND RELATED CONDITIONS 01/14/2010 MARIA GUADALUPE MANAGER AMBULATORY, TON S 691.8 OTHER ATOPIC DERMATITIS AND RELATED CONDITIONS 01/14/2010 MARIA GUADALUPE MANAGER AMBULATORY, TON S 691.8 OTHER ATOPIC DERMATITIS AND RELATED CONDITIONS 01/14/2010 MARIA GUADALUPE MANAGER AMBULATORY, TON S 691.8 OTHER ATOPIC DERMATITIS AND RELATED CONDITIONS 01/14/2010 MARIA GUADALUPE MANAGER AMBULATORY, TON S 691.8 OTHER ATOPIC DERMATITIS AND [...] ATOPIC DERMATITIS AND RELATED CONDITIONS 01/14/2010 RICHARD MANAGER AMBULATORY, JEWELS 691.8 OTHER ATOPIC DERMATITIS AND RELATED CONDITIONS 01/14/2010 RICHARD MANAGER AMBULATORY, JEWELS 691.8 OTHER ATOPIC DERMATITIS AND RELATED CONDITIONS 02/26/2010 JEWELS ROMANO DO 716.90 ARTHRITIS/ ARTHROPATHY, UNSPECIFIED 02/26/2010 716.90 ARTHRITIS/ ARTHROPATHY, UNSPECIFIED 02/26/2010 716.90 ARTHRITIS/ ARTHROPATHY, UNSPECIFIED 02/26/2010 MARIA GUADALUPE MANAGER AMBULATORY, TON S 716.90 ARTHRITIS/ ARTHROPATHY, UNSPECIFIED 02/26/2010 TAE MANAGER AMBULATORY, MARJORIE Alfredo 716.90 ARTHRITIS/ ARTHROPATHY, UNSPECIFIED 02/26/2010 716.90 ARTHRITIS/ ARTHROPATHY, UNSPECIFIED 02/26/2010 716.90 ARTHRITIS/ ARTHROPATHY, UNSPECIFIED 02/26/2010 716.90 ARTHRITIS/ ARTHROPATHY, UNSPECIFIED 02/26/2010 MARIA GUADALUPE MANAGER AMBULATORY, TON S 716.90 ARTHRITIS/ ARTHROPATHY, UNSPECIFIED 02/26/2010 MARIA GUADALUPE MANAGER AMBULATORY, TON S 716.90 ARTHRITIS/ ARTHROPATHY, UNSPECIFIED 02/26/2010 BIANCA SHAH, ISAIAS 716.90 ARTHRITIS/ ARTHROPATHY, UNSPECIFIED 02/26/2010 MARIA GUADALUPE MANAGER AMBULATORY, TON S 716.90 ARTHRITIS/ ARTHROPATHY, UNSPECIFIED 02/26/2010 MARIA GUADALUPE MANAGER AMBULATORY, TON S 716.90 ARTHRITIS/ ARTHROPATHY, UNSPECIFIED 02/26/2010 MARIA GUADALUPE MANAGER AMBULATORY, TON S 716.90 ARTHRITIS/ ARTHROPATHY, UNSPECIFIED 02/26/2010 MARIA GUADALUPE MANAGER AMBULATORY, TON S 716.90 ARTHRITIS/ ARTHROPATHY, UNSPECIFIED 02/26/2010 MARIA GUADALUPE MANAGER AMBULATORY, TON S 716.90 ARTHRITIS/ ARTHROPATHY, UNSPECIFIED 02/26/2010 DIAZ MANAGER AMBULATORYCATHERINE 716.90 ARTHRITIS/ ARTHROPATHY, UNSPECIFIED 02/26/2010 MARIA GUADALUPE MANAGER AMBULATORY, TON S 716.90 ARTHRITIS/ ARTHROPATHY, UNSPECIFIED 02/26/2010 MARIA GUADALUPE MANAGER AMBULATORY, TON S 716.90 ARTHRITIS/ ARTHROPATHY, UNSPECIFIED 02/26/2010 MARIA GUADALUPE MANAGER AMBULATORY, TON S 716.90 ARTHRITIS/ ARTHROPATHY, UNSPECIFIED 02/26/2010 MARIA GUADALUPE MANAGER AMBULATORY, TON S 716.90 ARTHRITIS/ ARTHROPATHY, UNSPECIFIED 02/26/2010 VELASQUEZ KAUR PSYD 716.90 ARTHRITIS/ ARTHROPATHY, UNSPECIFIED 02/26/2010 JEWELS ROMANO DO 716.90 ARTHRITIS/ ARTHROPATHY, UNSPECIFIED 02/26/2010 VELASQUEZ KAUR PSYD L 716.90 ARTHRITIS/ ARTHROPATHY, UNSPECIFIED 02/26/2010 POST MANAGER AMBULATORYSYMONE Ramos 716.90 ARTHRITIS/ ARTHROPATHY, UNSPECIFIED 02/26/2010 RICHARD MANAGER AMBULATORY, JEWELS 716.90 ARTHRITIS/ ARTHROPATHY, UNSPECIFIED 02/26/2010 RICHARD MANAGER AMBULATORY, JEWELS 716.90 ARTHRITIS/ ARTHROPATHY, UNSPECIFIED 02/26/2010 RICHARD MANAGER AMBULATORY, JEWELS 716.90 ARTHRITIS/ ARTHROPATHY, UNSPECIFIED 03/19/2010 JEWELS [...] LOWER LIMB INCLUDING HIP 03/19/2010 MARIA GUADALUPE MANAGER AMBULATORY, TON S 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 03/19/2010 MARIA GUADALUPE MANAGER AMBULATORY, TON S 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 03/19/2010 MARIA GUADALUPE MANAGER AMBULATORY, TON S 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 03/19/2010 MARIA GUADALUPE MANAGER AMBULATORY, TON S 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 03/19/2010 ISAIAS VALENZUELA MD 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 03/19/2010 ISAIAS VALENZUELA MD 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 03/19/2010 MARIA GUADALUPE MANAGER AMBULATORY, TON S 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 03/19/2010 MARIA GUADALUPE MANAGER AMBULATORY, TON S 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 03/19/2010 MARIA GUADALUPE MANAGER AMBULATORY, TON S 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 03/19/2010 MARIA GUADALUPE MANAGER AMBULATORY, TON S 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 03/19/2010 MARIA GUADALUPE MANAGER AMBULATORY, TON S 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 03/19/2010 MARIA GUADALUPE MANAGER AMBULATORY, TON S 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 03/19/2010 MARIA GUADALUPE MANAGER AMBULATORY, TON S 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 03/19/2010 MARIA GUADALUPE MANAGER AMBULATORY, TON S 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 03/19/2010 MARIA GUADALUPE MANAGER AMBULATORY, TON S 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 03/19/2010 MARIA GUADALUPE MANAGER AMBULATORY, TON S 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 03/19/2010 CATHERINE PERALES APRN 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 03/19/2010 CATHERINE PERALES APRN 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 03/19/2010 MARIA GUADALUPE MANAGER AMBULATORY, TON S 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 03/19/2010 MARIA GUADALUPE MANAGER AMBULATORY, TON S 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 03/19/2010 MARIA GUADALUPE MANAGER AMBULATORY, TON S 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 03/19/2010 MARIA GUADALUPE MANAGER AMBULATORY, TON S 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 03/19/2010 MARIA GUADALUPE MANAGER AMBULATORY, TON S 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 03/19/2010 MARIA GUADALUPE MANAGER AMBULATORY, TON S 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 03/19/2010 MARIA GUADALUPE MANAGER AMBULATORY, TON S 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 03/19/2010 MARIA GUADALUPE MANAGER AMBULATORY, TON S 216.7 BENIGN NEOPLASM OF SKIN [...] OF LOWER LIMB INCLUDING HIP 03/19/2010 RICHARD MANAGER AMBULATORY, JEWELS 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 03/19/2010 RICHARD MANAGER AMBULATORY, JEWELS 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 03/19/2010 RICHARD MANAGER AMBULATORY, JEWELS 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 03/19/2010 RICHARD MANAGER AMBULATORY, JEWELS 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 03/19/2010 RICHARD MANAGER AMBULATORY, JEWELS 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 03/19/2010 JEWELS RAMOS APRN 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 03/26/2010 ROMANO DOSACHAA K 729.5 limb pain 03/26/2010 ROMANO JEWELS OTTO K V58.32 Removal Of Sutures 03/26/2010 729.5 limb pain 03/26/2010 V58.32 Removal Of Sutures 03/26/2010 729.5 limb pain 03/26/2010 V58.32 Removal Of Sutures 03/26/2010 MARIA GUADALUPE MANAGER AMBULATORY, TON S 729.5 limb pain 03/26/2010 MARIA GUADALUPE MANAGER AMBULATORY, TON S V58.32 Removal Of Sutures 03/26/2010 MARJORIE STRONG APRN 729.5 limb pain 03/26/2010 MARJORIE STRONG APRN V58.32 Removal Of Sutures 03/26/2010 729.5 limb pain 03/26/2010 V58.32 Removal Of Sutures 03/26/2010 729.5 limb pain 03/26/2010 V58.32 Removal Of Sutures 03/26/2010 729.5 limb pain 03/26/2010 V58.32 Removal Of Sutures 03/26/2010 MARIA GUADALUPE MANAGER AMBULATORY, TON S 729.5 limb pain 03/26/2010 MARIA GUADALUPE MANAGER AMBULATORY, TON S V58.32 Removal Of Sutures 03/26/2010 MARIA GUADALUPE MANAGER AMBULATORY, TON S 729.5 limb pain 03/26/2010 MARIA GUADALUPE MANAGER AMBULATORY, TON S V58.32 Removal Of Sutures 03/26/2010 ISAIAS VALENZUELA MD 729.5 limb pain 03/26/2010 ISAIAS VALENZUELA MD V58.32 Removal Of Sutures 03/26/2010 MARIA GUADALUPE MANAGER AMBULATORY, TON S 729.5 limb pain 03/26/2010 MARIA GUADALUPE MANAGER AMBULATORY, TON S V58.32 Removal Of Sutures 03/26/2010 MARIA GUADALUPE MANAGER AMBULATORY, TON S 729.5 limb pain 03/26/2010 MARIA GUADALUPE MANAGER AMBULATORY, TON S V58.32 Removal Of Sutures 03/26/2010 MARIA GUADALUPE MANAGER AMBULATORY, TON S 729.5 LIMB PAIN 03/26/2010 MARIA GUADALUPE MANAGER AMBULATORY, TON S V58.32 REMOVAL OF SUTURES 03/26/2010 MARIA GUADALUPE MANAGER AMBULATORY, TON S 729.5 LIMB PAIN 03/26/2010 MARIA GUADALUPE MANAGER AMBULATORY, TON S V58.32 REMOVAL OF SUTURES 03/26/2010 MARIA GUADALUPE MANAGER AMBULATORY, TON S 729.5 LIMB PAIN 03/26/2010 MARIA GUADALUPE MANAGER AMBULATORY, TON S V58.32 REMOVAL OF SUTURES 03/26/2010 DIAZ MANAGER AMBULATORYCATHERINE T 729.5 LIMB PAIN 03/26/2010 DIAZ MANAGER AMBULATORY, CATHERINE T V58.32 REMOVAL OF SUTURES 03/26/2010 MARIA GUADALUPE MANAGER AMBULATORY, TON S 729.5 LIMB PAIN 03/26/2010 MARIA GUADALUPE MANAGER AMBULATORY, TON S V58.32 REMOVAL OF SUTURES 03/26/2010 MARIA GUADALUPE MANAGER AMBULATORY, TON S 729.5 LIMB PAIN 03/26/2010 MARIA GUADALUPE MANAGER AMBULATORY, TON S V58.32 REMOVAL OF SUTURES 03/26/2010 MARIA GUADALUPE MANAGER AMBULATORY, TON S 729.5 LIMB PAIN 03/26/2010 MARIA GUADALUPE MANAGER AMBULATORY, TON S V58.32 REMOVAL OF SUTURES 03/26/2010 MARIA GUADALUPE MANAGER AMBULATORY, TON S 729.5 LIMB PAIN 03/26/2010 MARIA GUADALUPE MANAGER AMBULATORY, TON S V58.32 REMOVAL OF SUTURES 03/26/2010 [...] APRN S 787.91 DIARRHEA 06/26/2010 MARIA GUADALUPE MANAGER AMBULATORY, TON S 789.04 ABDOMINAL PAIN LEFT LOWER QUADRANT 06/26/2010 MARIA GUADALUPE MANAGER AMBULATORY, TON S 386.11 VERTIGO- BENIGN PAROXYSMAL POSITIONAL 06/26/2010 MARIA GUADALUPE MANAGER AMBULATORY, TON S 787.91 DIARRHEA 06/26/2010 MARIA GUADALUPE MANAGER AMBULATORY, TON S 789.04 ABDOMINAL PAIN LEFT LOWER QUADRANT 06/26/2010 ISAIAS VALENZUELA MD 386.11 VERTIGO- BENIGN PAROXYSMAL POSITIONAL 06/26/2010 ISAIAS VALENZUELA MD 787.91 DIARRHEA 06/26/2010 ISAIAS VALENZUELA MD 789.04 ABDOMINAL PAIN LEFT LOWER QUADRANT 06/26/2010 MARIA GUADALUPE CHAUDHARIN, TON S 386.11 VERTIGO- BENIGN PAROXYSMAL POSITIONAL 06/26/2010 MARIA GUADALUPE MANAGER AMBULATORY, TON S 787.91 DIARRHEA 06/26/2010 MARIA GUADALUPE MANAGER AMBULATORY, TON S 789.04 ABDOMINAL PAIN LEFT LOWER QUADRANT 06/26/2010 MARIA GUADALUPE CHAUDHARIN, TON S 386.11 VERTIGO- BENIGN PAROXYSMAL POSITIONAL 06/26/2010 MARIA GUADALUPE MANAGER AMBULATORY, TON S 787.91 DIARRHEA 06/26/2010 MARIA GUADALUPE MANAGER AMBULATORY, TON S 789.04 ABDOMINAL PAIN LEFT LOWER QUADRANT 06/26/2010 MARIA GUADALUPE MANAGER AMBULATORY, TON S 386.11 VERTIGO- BENIGN PAROXYSMAL POSITIONAL 06/26/2010 MARIA GUADALUPE MANAGER AMBULATORY, TON S 787.91 DIARRHEA 06/26/2010 MARIA GUADALUPE MANAGER AMBULATORY, TON S 789.04 ABDOMINAL PAIN LEFT LOWER QUADRANT 06/26/2010 MARIA GUADALUPE CHAUDHARIN, TON S 386.11 VERTIGO- BENIGN PAROXYSMAL POSITIONAL 06/26/2010 MARIA GUADALUPE MANAGER AMBULATORY, TON S 787.91 DIARRHEA 06/26/2010 MARIA GUADALUPE MANAGER AMBULATORY, TON S 789.04 ABDOMINAL PAIN LEFT LOWER QUADRANT 06/26/2010 MARIA GUADALUPE MANAGER AMBULATORY, TON S 386.11 VERTIGO- BENIGN PAROXYSMAL POSITIONAL 06/26/2010 MARIA GUADALUPE MANAGER AMBULATORY, TON S 787.91 DIARRHEA 06/26/2010 MARIA GUADALUPE MANAGER AMBULATORY, TON S 789.04 ABDOMINAL PAIN LEFT LOWER QUADRANT 06/26/2010 CATHERINE PERALES APRN 386.11 VERTIGO- BENIGN PAROXYSMAL POSITIONAL 06/26/2010 DIAZ MANAGER AMBULATORYCATHERINE Ramos T 787.91 DIARRHEA 06/26/2010 DIAZ CHAUDHARIN, CATHERINE T 789.04 ABDOMINAL PAIN LEFT LOWER QUADRANT 06/26/2010 MARIA GUADALUPE MANAGER AMBULATORY, TON S 386.11 VERTIGO- BENIGN PAROXYSMAL POSITIONAL 06/26/2010 MARIA GUADALUPE MANAGER AMBULATORY, TON S 787.91 DIARRHEA 06/26/2010 MARIA GUADALUPE MANAGER AMBULATORY, TON S 789.04 ABDOMINAL PAIN LEFT LOWER QUADRANT 06/26/2010 MARIA GUADALUPE MANAGER AMBULATORY, TON S 386.11 VERTIGO- BENIGN PAROXYSMAL POSITIONAL 06/26/2010 MARIA GUADALUPE MANAGER AMBULATORY, TON S 787.91 DIARRHEA 06/26/2010 MARIA GUADALUPE CHAUDHARIN, TON S 789.04 ABDOMINAL PAIN LEFT LOWER QUADRANT 06/26/2010 MARIA GUADALUPE MANAGER AMBULATORY, TON S 386.11 VERTIGO- BENIGN PAROXYSMAL POSITIONAL 06/26/2010 MARIA GUADALUPEGARY CHAUDHARIN, TON S 787.91 DIARRHEA 06/26/2010 MARIA GUADALUPE MANAGER AMBULATORY, TON S 789.04 ABDOMINAL PAIN LEFT LOWER QUADRANT 06/26/2010 MARIA GUADALUPE MANAGER AMBULATORY, TON S 386.11 VERTIGO- BENIGN PAROXYSMAL POSITIONAL 06/26/2010 MARIA GUADALUPE MANAGER AMBULATORY, TON S 787.91 DIARRHEA 06/26/2010 MARIA GUADALUPEGARY [...] ABDOMINAL PAIN LEFT LOWER QUADRANT 06/26/2010 RICHARD MANAGER AMBULATORY, JEWELS 386.11 VERTIGO- BENIGN PAROXYSMAL POSITIONAL 06/26/2010 RICHARD MANAGER AMBULATORY, JEWELS 787.91 DIARRHEA 06/26/2010 RICHARD MANAGER AMBULATORY, JEWELS 789.04 ABDOMINAL PAIN LEFT LOWER QUADRANT 06/26/2010 RICHARD MANAGER AMBULATORY, JEWELS 386.11 VERTIGO- BENIGN PAROXYSMAL POSITIONAL 06/26/2010 RICHARD MANAGER AMBULATORY, JEWELS 787.91 DIARRHEA 06/26/2010 RICHARD MANAGER AMBULATORY, JEWELS 789.04 ABDOMINAL PAIN LEFT LOWER QUADRANT 06/26/2010 RICHARD MANAGER AMBULATORY, JEWELS 386.11 VERTIGO- BENIGN PAROXYSMAL POSITIONAL 06/26/2010 RICHARD MANAGER AMBULATORY, JEWELS 787.91 DIARRHEA 06/26/2010 RICHARD MANAGER AMBULATORY, JEWELS 789.04 ABDOMINAL PAIN LEFT LOWER QUADRANT [...] S 386.30 LABYRINTHITIS UNSPECIFIED 07/01/2010 MARIA GUADALUPE MANAGER AMBULATORY, TON S 386.30 LABYRINTHITIS UNSPECIFIED 07/01/2010 MARIA GUADALUPE MANAGER AMBULATORY, TON S 386.30 LABYRINTHITIS UNSPECIFIED 07/01/2010 MARIA GUADALUPE MANAGER AMBULATORY, TON S 386.30 LABYRINTHITIS UNSPECIFIED 07/01/2010 CATHERINE PERALES APRN 386.30 LABYRINTHITIS UNSPECIFIED 07/01/2010 MARIA GUADALUPE MANAGER AMBULATORY, TON S 386.30 LABYRINTHITIS UNSPECIFIED 07/01/2010 MARIA GUADALUPE MANAGER AMBULATORY, TON S 386.30 LABYRINTHITIS UNSPECIFIED 07/01/2010 MARIA GUADALUPE MANAGER AMBULATORY, TON S 386.30 LABYRINTHITIS UNSPECIFIED 07/01/2010 MARIA GUADALUPE MANAGER AMBULATORY, TON S 386.30 LABYRINTHITIS UNSPECIFIED 07/01/2010 VELASQUEZ KAUR PSYD 386.30 LABYRINTHITIS UNSPECIFIED 07/01/2010 JEWELS ROMANO DO K 386.30 LABYRINTHITIS UNSPECIFIED 07/01/2010 VELASQUEZ KAUR PSYD 386.30 LABYRINTHITIS UNSPECIFIED 07/01/2010 SYMONE POST APRN 386.30 LABYRINTHITIS UNSPECIFIED 07/01/2010 RICHARD MANAGER AMBULATORY, JEWELS 386.30 LABYRINTHITIS UNSPECIFIED 07/01/2010 RICHARD MANAGER AMBULATORY, JEWELS 386.30 LABYRINTHITIS UNSPECIFIED 07/01/2010 RICHARD MANAGER AMBULATORY, JEWELS 386.30 LABYRINTHITIS UNSPECIFIED 09/13/2010 JEWELS ROMANO [...] S 698.9 PRURITUS NOS 09/13/2010 MARIA GUADALUPE MANAGER AMBULATORY, TON S 782.1 RASH 09/13/2010 MARIA GUADALUPE MANAGER AMBULATORY, TON S 786.05 SHORTNESS OF BREATH 09/13/2010 STRONG MANAGER AMBULATORYMARJORIE M 698.9 PRURITUS NOS 09/13/2010 TAE CHAUDHARINMARJORIE M 782.1 RASH 09/13/2010 TAE CHAUDHARIN, MARJORIE Alfredo 786.05 SHORTNESS OF BREATH 09/13/2010 698.9 PRURITUS NOS 09/13/2010 782.1 RASH 09/13/2010 786.05 SHORTNESS OF BREATH 09/13/2010 698.9 PRURITUS NOS 09/13/2010 782.1 RASH 09/13/2010 786.05 SHORTNESS OF BREATH 09/13/2010 698.9 PRURITUS NOS 09/13/2010 782.1 RASH 09/13/2010 786.05 SHORTNESS OF BREATH 09/13/2010 MARIA GUADALUPE MANAGER AMBULATORY, TON S 698.9 PRURITUS NOS 09/13/2010 MARIA GUADALUPE MANAGER AMBULATORY, TON S 782.1 RASH 09/13/2010 MARIA GUADALUPE MANAGER AMBULATORY, TON S 786.05 SHORTNESS OF BREATH 09/13/2010 MARIA GUADALUPE MANAGER AMBULATORY, TON S 698.9 PRURITUS NOS 09/13/2010 MARIA GUADALUPE MANAGER AMBULATORY, TON S 782.1 RASH 09/13/2010 MARIA GUADALUPE MANAGER AMBULATORY, TON S 786.05 SHORTNESS OF BREATH 09/13/2010 ISAIAS VALENZUELA MD 698.9 PRURITUS NOS 09/13/2010 ISAIAS VALENZUELA MD 782.1 RASH 09/13/2010 ISAIAS VALENZUELA MD 786.05 SHORTNESS OF BREATH 09/13/2010 MARIA GUADALUPE MANAGER AMBULATORY, TON S 698.9 PRURITUS NOS 09/13/2010 MARIA GUADALUPE MANAGER AMBULATORY, TON S 782.1 RASH 09/13/2010 MARIA GUADALUPE MANAGER AMBULATORY, TON S 786.05 SHORTNESS OF BREATH 09/13/2010 MARIA GUADALUPE MANAGER AMBULATORY, TON S 698.9 PRURITUS NOS 09/13/2010 MARIA GUADALUPE MANAGER AMBULATORY, TON S 782.1 RASH 09/13/2010 MARIA GUADALUPE MANAGER AMBULATORY, TON S 786.05 SHORTNESS OF BREATH 09/13/2010 MARIA GUADALUPE MANAGER AMBULATORY, TON S 698.9 PRURITUS NOS 09/13/2010 MARIA GUADALUPE MANAGER AMBULATORY, TON S 782.1 RASH 09/13/2010 MARIA GUADALUPE MANAGER AMBULATORY, TON S 786.05 SHORTNESS OF BREATH 09/13/2010 MARIA GUADALUPE MANAGER AMBULATORY, TON S 698.9 PRURITUS NOS 09/13/2010 MARIA GUADALUPE MANAGER AMBULATORY, TON S 782.1 RASH 09/13/2010 MARIA GUADALUPE MANAGER AMBULATORY, TON S 786.05 SHORTNESS OF BREATH 09/13/2010 MARIA GUADALUPE MANAGER AMBULATORY, TON S 698.9 PRURITUS NOS 09/13/2010 MARIA GUADALUPE MANAGER AMBULATORY, TON S 782.1 RASH 09/13/2010 MARIA GUADALUPE MANAGER AMBULATORY, TON S 786.05 SHORTNESS OF BREATH 09/13/2010 DIAZ MANAGER AMBULATORY, CATHERINE T 698.9 PRURITUS NOS 09/13/2010 DIAZ MANAGER AMBULATORY, CATHERINE T 782.1 RASH 09/13/2010 DIAZ MANAGER AMBULATORY, CATHERINE T 786.05 SHORTNESS OF BREATH 09/13/2010 MARIA GUADALUPE MANAGER AMBULATORY, TON S 698.9 PRURITUS NOS 09/13/2010 MARIA GUADALUPE MANAGER AMBULATORY, TON S 782.1 RASH 09/13/2010 MARIA GUADALUPE MANAGER AMBULATORY, TON S 786.05 SHORTNESS OF BREATH 09/13/2010 MARIA GUADALUPE MANAGER AMBULATORY, TON S 698.9 PRURITUS NOS 09/13/2010 MARIA GUADALUPE MANAGER AMBULATORY, TON S 782.1 RASH 09/13/2010 MARIA GUADALUPE MANAGER AMBULATORY, TON S 786.05 SHORTNESS OF BREATH 09/13/2010 MARIA GUADALUPE MANAGER AMBULATORY, TON S 698.9 PRURITUS NOS 09/13/2010 MARIA GUADALUPE MANAGER AMBULATORY, TON S 782.1 RASH 09/13/2010 MARIA GUADALUPE MANAGER AMBULATORY, TON S 786.05 SHORTNESS OF BREATH 09/13/2010 MARIA GUADALUPE MANAGER AMBULATORY, TON S 698.9 PRURITUS NOS 09/13/2010 MARIA GUADALUPE MANAGER AMBULATORY, TON S 782.1 RASH 09/13/2010 MARIA GUADALUPE MANAGER AMBULATORY, TON S 786.05 SHORTNESS OF BREATH 09/13/2010 [...] L 786.05 SHORTNESS OF BREATH 09/13/2010 POST MANAGER AMBULATORYMAUREENON D 698.9 PRURITUS NOS 09/13/2010 POST MANAGER AMBULATORY SYMONE D 782.1 RASH 09/13/2010 POST MANAGER AMBULATORYMAUREEN RamosON Benjie 786.05 SHORTNESS OF BREATH 09/13/2010 RICHARD MANAGER AMBULATORY, JEWELS 698.9 PRURITUS NOS 09/13/2010 RICHARD MANAGER AMBULATORY, JEWELS 782.1 RASH 09/13/2010 RICHARD MANAGER AMBULATORY, JEWELS 786.05 SHORTNESS OF BREATH 09/13/2010 RICHARD MANAGER AMBULATORY, JEWELS 698.9 PRURITUS NOS 09/13/2010 RICHARD MANAGER AMBULATORY, JEWELS 782.1 RASH 09/13/2010 RICHARD MANAGER AMBULATORY, JEWELS 786.05 SHORTNESS OF BREATH 09/13/2010 RICHARD MANAGER AMBULATORY, JEWELS 698.9 PRURITUS NOS 09/13/2010 RICHARD MANAGER AMBULATORY, JEWELS 782.1 RASH 09/13/2010 RICHARD MANAGER AMBULATORY, JEWELS 786.05 SHORTNESS OF BREATH 02/10/2011 ROMANO [...] 564.1 IRRITABLE BOWEL SYNDROME 02/10/2011 MARIA GUADALUPE MANAGER AMBULATORYQUINTEN RamosNDA S 578.1 BLOOD IN STOOL 02/10/2011 [...] YRS AND ABOVE, IM) 02/10/2011 MARIA GUADALUPE MANAGER AMBULATORY, TON S 564.1 IRRITABLE BOWEL SYNDROME 02/10/2011 MARIA GUADALUPE MANAGER AMBULATORY, TON S 578.1 BLOOD IN STOOL 02/10/2011 MARIA GUADALUPE MANAGER AMBULATORY, TON S 789.07 ABDOMINAL PAIN GENERALIZED 02/10/2011 MARIA GUADALUPE MANAGER AMBULATORY, TON S V04.81 FLU DX (3 YRS AND ABOVE, IM) 02/10/2011 ISAIAS VALENZUELA MD 564.1 IRRITABLE BOWEL SYNDROME 02/10/2011 ISAIAS VALENZUELA MD 578.1 BLOOD IN STOOL 02/10/2011 ISAIAS VALENZUELA MD 789.07 ABDOMINAL PAIN GENERALIZED 02/10/2011 ISAIAS VALENZUELA MD V04.81 FLU DX (3 YRS AND ABOVE, IM) 02/10/2011 MARIA GUADALUPE MANAGER AMBULATORY, TON S 564.1 IRRITABLE BOWEL SYNDROME 02/10/2011 MARIA GUADALUPE MANAGER AMBULATORY, TON S 578.1 BLOOD IN STOOL 02/10/2011 MARIA GUADALUPE CHAUDHARIN, TON S 789.07 ABDOMINAL PAIN GENERALIZED 02/10/2011 MARIA GUADALUPE MANAGER AMBULATORY, TON S V04.81 FLU DX (3 YRS AND ABOVE, IM) 02/10/2011 MARIA GUADALUPE MANAGER AMBULATORY, TON S 564.1 IRRITABLE BOWEL SYNDROME 02/10/2011 MARIA GUADALUPE MANAGER AMBULATORY, TON S 578.1 BLOOD IN STOOL 02/10/2011 MARIA GUADALUPE MANAGER AMBULATORY, TON S 789.07 ABDOMINAL PAIN GENERALIZED 02/10/2011 MARIA GUADALUPE MANAGER AMBULATORY, TON S V04.81 FLU DX (3 YRS AND ABOVE, IM) 02/10/2011 MARIA GUADALUPE MANAGER AMBULATORY, TON S 564.1 IRRITABLE BOWEL SYNDROME 02/10/2011 MARIA GUADALUPE MANAGER AMBULATORY, TON S 578.1 BLOOD IN STOOL 02/10/2011 MARIA GUADALUPE MANAGER AMBULATORY, TON S 789.07 ABDOMINAL PAIN GENERALIZED 02/10/2011 MARIA GUADALUPE MANAGER AMBULATORY, TON S V04.81 FLU DX (3 YRS AND ABOVE, IM) 02/10/2011 MARIA GUADALUPE MANAGER AMBULATORY, TON S 564.1 IRRITABLE BOWEL SYNDROME 02/10/2011 MARIA GUADALUPE MANAGER AMBULATORY, TON S 578.1 BLOOD IN STOOL 02/10/2011 MARIA GUADALUPE MANAGER AMBULATORY, TON S 789.07 ABDOMINAL PAIN GENERALIZED 02/10/2011 MARIA GUADALUPE MANAGER AMBULATORY, TON S V04.81 FLU DX (3 YRS AND ABOVE, IM) 02/10/2011 MARIA GUADALUPE MANAGER AMBULATORY, TON S 564.1 IRRITABLE BOWEL SYNDROME 02/10/2011 MARIA GUADALUPE MANAGER AMBULATORY, TON S 578.1 BLOOD IN STOOL 02/10/2011 MARIA GUADALUPE MANAGER AMBULATORY, TON S 789.07 ABDOMINAL PAIN GENERALIZED 02/10/2011 MARIA GUADALUPE MANAGER AMBULATORY, TON S V04.81 FLU DX (3 YRS AND ABOVE, IM) 02/10/2011 DIAZ CHAUDHARICATHERINE Ramos T 564.1 IRRITABLE BOWEL SYNDROME 02/10/2011 DIAZ CHAUDHARICATHERINE Ramos T 578.1 BLOOD IN STOOL 02/10/2011 DIAZ CHAUDHARINCATHERINE T 789.07 ABDOMINAL PAIN GENERALIZED 02/10/2011 DIAZ CHAUDHARICATHERINE Ramos T V04.81 FLU DX (3 YRS AND ABOVE, IM) 02/10/2011 MARIA GUADALUPEGARY CHAUDHARIN, TON S 564.1 IRRITABLE BOWEL SYNDROME 02/10/2011 MARIA GUADALUPE MANAGER AMBULATORY, TON S 578.1 BLOOD IN STOOL 02/10/2011 MARIA GUADALUPEGARY CHAUDHARIN, TON S 789.07 ABDOMINAL PAIN GENERALIZED 02/10/2011 MARIA GUADALUPE MANAGER AMBULATORY, TON S V04.81 FLU DX (3 YRS AND ABOVE, IM) 02/10/2011 MARIA GUADALUPE MANAGER AMBULATORY, TON S 564.1 IRRITABLE BOWEL SYNDROME 02/10/2011 MARIA GUADALUPE MANAGER AMBULATORY, TON S 578.1 BLOOD IN STOOL 02/10/2011 MARIA GUADALUPE MANAGER AMBULATORY, TON S 789.07 ABDOMINAL PAIN GENERALIZED 02/10/2011 MARIA GUADALUPE MANAGER AMBULATORY, TON S V04.81 FLU DX (3 YRS AND ABOVE, IM) 02/10/2011 MARIA GUADALUPE MANAGER AMBULATORY, TON S 564.1 IRRITABLE BOWEL SYNDROME 02/10/2011 MARIA GUADALUPE MANAGER AMBULATORY, TON S 578.1 BLOOD IN STOOL 02/10/2011 MARIA GUADALUPE MANAGER AMBULATORY, TON S 789.07 ABDOMINAL PAIN GENERALIZED 02/10/2011 MARIA GUADALUPE MANAGER AMBULATORY, TON S V04.81 FLU DX (3 YRS AND ABOVE, IM) 02/10/2011 MARIA GUADALUPE MANAGER AMBULATORY, TON S 564.1 IRRITABLE BOWEL SYNDROME 02/10/2011 MARIA GUADALUPE MANAGER AMBULATORY, TON S 578.1 BLOOD IN STOOL 02/10/2011 MARIA GUADALUPE MANAGER AMBULATORY, TON S 789.07 ABDOMINAL PAIN GENERALIZED 02/10/2011 MARIA GUADALUPE MANAGER AMBULATORY, TON S V04.81 FLU DX (3 YRS [...] JEWELS 564.1 IRRITABLE BOWEL SYNDROME 02/10/2011 RICHARD MANAGER AMBULATORY, JEWELS 578.1 BLOOD IN STOOL 02/10/2011 RICHARD MANAGER AMBULATORY, JEWELS 789.07 ABDOMINAL PAIN GENERALIZED 02/10/2011 RICHARD MANAGER AMBULATORY, JEWELS V04.81 FLU DX (3 YRS AND ABOVE, IM) 02/10/2011 RICHARD MANAGER AMBULATORY, JEWELS 564.1 IRRITABLE BOWEL SYNDROME 02/10/2011 RICHARD MANAGER AMBULATORY, JEWELS 578.1 BLOOD IN STOOL 02/10/2011 RICHARD MANAGER AMBULATORY, JEWELS 789.07 ABDOMINAL PAIN GENERALIZED 02/10/2011 RICHARD MANAGER AMBULATORY, JEWELS V04.81 FLU DX (3 YRS AND ABOVE, IM) 02/10/2011 RICHARD MANAGER AMBULATORY, JEWELS 564.1 IRRITABLE BOWEL SYNDROME 02/10/2011 RICHARD MANAGER AMBULATORY, JEWELS 578.1 BLOOD IN STOOL 02/10/2011 RICHARD MANAGER AMBULATORY, JEWELS 789.07 ABDOMINAL PAIN GENERALIZED 02/10/2011 RICHARD MANAGER AMBULATORY, JEWELS V04.81 FLU DX (3 YRS AND [...] HISTORY OF COLONIC POLYPS 03/17/2011 MARIA GUADALUPE MANAGER AMBULATORY, TON S 536.8 DYSPEPSIA 03/17/2011 MARIA GUADALUPE [...] HISTORY OF COLONIC POLYPS 03/17/2011 MARIA GUADALUPE MANAGER AMBULATORY, TON S 536.8 DYSPEPSIA 03/17/2011 MARIA GUADALUPE VAUGHN, TON S 789.01 ABDOMINAL PAIN RIGHT UPPER QUADRANT 03/17/2011 MARIA GUADALUPE MANAGER AMBULATORY, TON S V12.72 PERSONAL HISTORY OF COLONIC POLYPS 03/17/2011 MARIA GUADALUPE MANAGER AMBULATORY, TON S 536.8 DYSPEPSIA 03/17/2011 MARIA GUADALUPE MANAGER AMBULATORY, TON S 789.01 ABDOMINAL PAIN RIGHT UPPER QUADRANT 03/17/2011 MARIA GUADALUPE MANAGER AMBULATORY, TON S V12.72 PERSONAL HISTORY OF COLONIC POLYPS 03/17/2011 MARIA GUADALUPE MANAGER AMBULATORY, TON S 536.8 DYSPEPSIA 03/17/2011 MARIA GUADALUPE MANAGER AMBULATORY, TON S 789.01 ABDOMINAL PAIN RIGHT UPPER QUADRANT 03/17/2011 MARIA GUADALUPE MANAGER AMBULATORY, TON S V12.72 PERSONAL HISTORY OF COLONIC POLYPS 03/17/2011 DIAZ VAUGHN CATHERINE T 536.8 DYSPEPSIA 03/17/2011 DIAZ CHAUDHARIN, CATHERINE T 789.01 ABDOMINAL PAIN RIGHT UPPER QUADRANT 03/17/2011 DIAZ VAUGHN CATHERINE T V12.72 PERSONAL HISTORY OF COLONIC POLYPS 03/17/2011 MARIA GUADALUPE MANAGER AMBULATORY, TON S 536.8 DYSPEPSIA 03/17/2011 MARIA GUADALUPE MANAGER AMBULATORY, TON S 789.01 ABDOMINAL PAIN RIGHT UPPER QUADRANT 03/17/2011 MARIA GUADALUPE MANAGER AMBULATORY, TON S V12.72 PERSONAL HISTORY OF COLONIC POLYPS 03/17/2011 MARIA GUADALUPE MANAGER AMBULATORY, TON S 536.8 DYSPEPSIA 03/17/2011 MARIA GUADALUPE MANAGER AMBULATORY, TON S 789.01 ABDOMINAL PAIN RIGHT UPPER QUADRANT 03/17/2011 MARIA GUADALUPE MANAGER AMBULATORY, TON S V12.72 PERSONAL HISTORY OF COLONIC POLYPS 03/17/2011 MARIA GUADALUPE MANAGER AMBULATORY, TON S 536.8 DYSPEPSIA 03/17/2011 MARIA GUADALUPE MANAGER AMBULATORY, TON S 789.01 ABDOMINAL PAIN RIGHT UPPER QUADRANT 03/17/2011 MARIA GUADALUPE MANAGER AMBULATORY, TON S V12.72 PERSONAL HISTORY OF COLONIC POLYPS 03/17/2011 MARIA GUADALUPE MANAGER AMBULATORY, TON S 536.8 DYSPEPSIA 03/17/2011 MARIA GUADALUPE MANAGER AMBULATORY, TON S 789.01 ABDOMINAL PAIN RIGHT UPPER QUADRANT 03/17/2011 MARIA GUADALUPE MANAGER AMBULATORY, TON S V12.72 PERSONAL HISTORY OF COLONIC POLYPS 03/17/2011 VELASQUEZ KUAR PSYD L 536.8 DYSPEPSIA 03/17/2011 VELASQUEZ KARU PSYD L 789.01 ABDOMINAL PAIN RIGHT UPPER [...] V45.89 OTHER POSTSURGICAL STATUS 04/21/2011 MARIA GUADALUPE MANAGER AMBULATORY, TON S V45.89 OTHER POSTSURGICAL STATUS 04/21/2011 MARJORIE STRONG APRN V45.89 OTHER POSTSURGICAL STATUS 04/21/2011 V45.89 OTHER POSTSURGICAL STATUS 04/21/2011 V45.89 OTHER POSTSURGICAL STATUS 04/21/2011 V45.89 OTHER POSTSURGICAL STATUS 04/21/2011 MARIA GUADALUPE MANAGER AMBULATORY, TON S V45.89 OTHER POSTSURGICAL STATUS 04/21/2011 MARIA GUADALUPE MANAGER AMBULATORY, TON S V45.89 OTHER POSTSURGICAL STATUS 04/21/2011 ISAIAS VALENZUELA MD V45.89 OTHER POSTSURGICAL STATUS 04/21/2011 MARIA GUADALUPE MANAGER AMBULATORY, TON S V45.89 OTHER POSTSURGICAL STATUS 04/21/2011 MARIA GUADALUPE MANAGER AMBULATORY, TON S V45.89 OTHER POSTSURGICAL STATUS 04/21/2011 MARIA GUADALUPE MANAGER AMBULATORY, TON S V45.89 OTHER POSTSURGICAL STATUS 04/21/2011 MARIA GUADALUPE MANAGER AMBULATORY, TON S V45.89 OTHER POSTSURGICAL STATUS 04/21/2011 MARIA GUADALUPE MANAGER AMBULATORY, TON S V45.89 OTHER POSTSURGICAL STATUS 04/21/2011 DIAZ CHAUDHARINCATHERINE V45.89 OTHER POSTSURGICAL STATUS 04/21/2011 MARIA GUADALUPE MANAGER AMBULATORY, TON S V45.89 OTHER POSTSURGICAL STATUS 04/21/2011 MARIA GUADALUPE MANAGER AMBULATORY, TON S V45.89 OTHER POSTSURGICAL STATUS 04/21/2011 MARIA GUADALUPE MANAGER AMBULATORY, TON S V45.89 OTHER POSTSURGICAL STATUS 04/21/2011 MARIA GUADALUPE MANAGER AMBULATORY, TON S V45.89 OTHER POSTSURGICAL STATUS 04/21/2011 VELASQUEZ KAUR PSYD V45.89 OTHER POSTSURGICAL STATUS 04/21/2011 JEWELS ROMANO DO V45.89 OTHER POSTSURGICAL STATUS 04/21/2011 VELASQUEZ KAUR PSYD V45.89 OTHER POSTSURGICAL STATUS 04/21/2011 SYMONE POST APRN V45.89 OTHER POSTSURGICAL STATUS 04/21/2011 RICHARD MANAGER AMBULATORY JEWELS V45.89 OTHER POSTSURGICAL STATUS 04/21/2011 RICHARD MANAGER AMBULATORYJEWELS V45.89 OTHER POSTSURGICAL STATUS 04/21/2011 RICHARD MANAGER AMBULATORY, JEWELS V45.89 OTHER POSTSURGICAL STATUS 09/16/2011 JEWELS [...] 726.32 LATERAL EPICONDYLITIS [place] 09/16/2011 RICHARD MANAGER AMBULATORY, JEWELS 726.32 LATERAL EPICONDYLITIS [place] 09/16/2011 RICHARD MANAGER AMBULATORY, JEWELS 726.32 LATERAL EPICONDYLITIS [place] 09/16/2011 RICHARD MANAGER AMBULATORY, JEWELS 726.32 LATERAL EPICONDYLITIS [place] 04/12/2012 JEWELS ROMANO DO 008.8 GASTROENTERITIS, VIRAL 04/12/2012 JEWELS ROMANO DO V76.10 BREAST CANCER SCREENING 04/12/2012 JEWELS ROMNAO DO V76.2 CERVICAL CANCER SCREENING (PAP SMEAR) [...] S 008.8 GASTROENTERITIS, VIRAL 04/12/2012 MARIA GUADALUPE MANAGER AMBULATORY, TON S V76.10 BREAST CANCER SCREENING 04/12/2012 MARIA GUADALUPE MANAGER AMBULATORY, TON S V76.2 CERVICAL CANCER SCREENING (PAP SMEAR) 04/12/2012 MARIA GUADALUPE VAUGHN TON S V76.51 COLON CANCER SCREENING 04/12/2012 MARIA GUADALUPE VAUGHN TON S 008.8 GASTROENTERITIS, VIRAL 04/12/2012 MARIA GUADALUPE MANAGER AMBULATORY, TON S V76.10 BREAST CANCER SCREENING 04/12/2012 MARIA GUADALUPE MANAGER AMBULATORY, TON S V76.2 CERVICAL CANCER SCREENING (PAP SMEAR) 04/12/2012 MARIA GUADALUPE MANAGER AMBULATORY, TON S V76.51 COLON CANCER SCREENING 04/12/2012 ISAIAS VALENZUELA MD 008.8 GASTROENTERITIS, VIRAL 04/12/2012 ISAIAS VALENZUELA MD V76.10 BREAST CANCER SCREENING 04/12/2012 ISAIAS VALENZUELA MD V76.2 CERVICAL CANCER SCREENING (PAP SMEAR) 04/12/2012 ISAIAS VALENZUELA MD V76.51 COLON CANCER SCREENING 04/12/2012 MARIA GUADALUPE VAUGHN TON S 008.8 GASTROENTERITIS, VIRAL 04/12/2012 MARIA GUADALUPE MANAGER AMBULATORY, TON S V76.10 BREAST CANCER SCREENING 04/12/2012 MARIA GUADALUPE VAUGHN TON S V76.2 CERVICAL CANCER SCREENING (PAP SMEAR) 04/12/2012 MARIA GUADALUPE VAUGHN TON S V76.51 COLON CANCER SCREENING 04/12/2012 MARIA GUADALUPE MANAGER AMBULATORY, TON S 008.8 GASTROENTERITIS, VIRAL 04/12/2012 MARIA GUADALUPE MANAGER AMBULATORY, TON S V76.10 BREAST CANCER SCREENING 04/12/2012 MARIA GUADALUPE MANAGER AMBULATORY, TON S V76.2 CERVICAL CANCER SCREENING (PAP SMEAR) 04/12/2012 MARIA GUADALUPE MANAGER AMBULATORY, TON S V76.51 COLON CANCER SCREENING 04/12/2012 MARIA GUADALUPE MANAGER AMBULATORY, TON S 008.8 GASTROENTERITIS, VIRAL 04/12/2012 MARIA GUADALUPE MANAGER AMBULATORY, TON S V76.10 BREAST CANCER SCREENING 04/12/2012 MARIA GUADALUPE MANAGER AMBULATORY, TON S V76.2 CERVICAL CANCER SCREENING (PAP SMEAR) 04/12/2012 MARIA GUADALUPE MANAGER AMBULATORY, TON S V76.51 COLON CANCER SCREENING 04/12/2012 MARIA GUADALUPE MANAGER AMBULATORY, TON S 008.8 GASTROENTERITIS, VIRAL 04/12/2012 MARIA GUADALUPE MANAGER AMBULATORY, TON S V76.10 BREAST CANCER SCREENING 04/12/2012 MARIA GUADALUPE MANAGER AMBULATORY, TON S V76.2 CERVICAL CANCER SCREENING (PAP SMEAR) 04/12/2012 MARIA GUADALUPE MANAGER AMBULATORY, TON S V76.51 COLON CANCER SCREENING 04/12/2012 MARIA GUADALUPE MANAGER AMBULATORY, TON S 008.8 GASTROENTERITIS, VIRAL 04/12/2012 MARIA GUADALUPE MANAGER AMBULATORY, TON S V76.10 BREAST CANCER SCREENING 04/12/2012 MARIA GUADALUPE MANAGER AMBULATORY, TON S V76.2 CERVICAL CANCER SCREENING (PAP SMEAR) 04/12/2012 MARIA GUADALUPE MANAGER AMBULATORY, TON S V76.51 COLON CANCER SCREENING 04/12/2012 CATHERINE PERALES APRN 008.8 GASTROENTERITIS, VIRAL 04/12/2012 CATHERINE PERALES APRN T V76.10 BREAST CANCER SCREENING 04/12/2012 CATHERINE PERALES APRN T V76.2 CERVICAL CANCER SCREENING (PAP SMEAR) 04/12/2012 CATHERINE PERALES APRN V76.51 COLON CANCER SCREENING 04/12/2012 MARIA GUADALUPE MANAGER AMBULATORY, TON S 008.8 GASTROENTERITIS, VIRAL 04/12/2012 MARIA GUADALUPE MANAGER AMBULATORY, TON S V76.10 BREAST CANCER SCREENING 04/12/2012 MARIA GUADALUPE MANAGER AMBULATORY, TON S V76.2 CERVICAL CANCER SCREENING (PAP SMEAR) 04/12/2012 MARIA GUADALUPE MANAGER AMBULATORY, TON S V76.51 COLON CANCER SCREENING 04/12/2012 MARIA GUADALUPE MANAGER AMBULATORY, TON S 008.8 GASTROENTERITIS, VIRAL 04/12/2012 MARIA GUADALUPE MANAGER AMBULATORY, TON S V76.10 BREAST CANCER SCREENING 04/12/2012 MARIA GUADALUPE MANAGER AMBULATORY, TON S V76.2 CERVICAL CANCER SCREENING (PAP SMEAR) 04/12/2012 MARIA GUADALUPE MANAGER AMBULATORY, TON S V76.51 COLON CANCER SCREENING 04/12/2012 MARIA GUADALUPE MANAGER AMBULATORY, TON S 008.8 GASTROENTERITIS, VIRAL 04/12/2012 MARIA GUADALUPE MANAGER AMBULATORY, TON S V76.10 BREAST CANCER SCREENING 04/12/2012 MARIA GUADALUPE MANAGER AMBULATORY, TON S V76.2 CERVICAL CANCER SCREENING (PAP SMEAR) 04/12/2012 MARIA GUADALUPE MANAGER AMBULATORY, TON S V76.51 COLON CANCER SCREENING 04/12/2012 MARIA GUADALUPE MANAGER AMBULATORY, TON S 008.8 GASTROENTERITIS, VIRAL 04/12/2012 MARIA GUADALUPE MANAGER AMBULATORY, TON S V76.10 BREAST CANCER SCREENING 04/12/2012 MARIA GUADALUPE MANAGER AMBULATORY, TON S V76.2 CERVICAL CANCER SCREENING (PAP SMEAR) 04/12/2012 MARIA GUADALUPE MANAGER AMBULATORY, TON S V76.51 COLON CANCER SCREENING 04/12/2012 [...] APRN V76.51 COLON CANCER SCREENING 04/12/2012 RICHARD MANAGER AMBULATORY, JEWELS 008.8 GASTROENTERITIS, VIRAL 04/12/2012 RICHARD MANAGER AMBULATORY, JEWELS V76.10 BREAST CANCER SCREENING 04/12/2012 RICHARD MANAGER AMBULATORY, JEWELS V76.2 CERVICAL CANCER SCREENING (PAP SMEAR) 04/12/2012 RICHARD MANAGER AMBULATORY, JEWELS V76.51 COLON CANCER SCREENING 04/12/2012 RICHARD MANAGER AMBULATORY, JEWELS 008.8 GASTROENTERITIS, VIRAL 04/12/2012 RICHARD MANAGER AMBULATORY, JEWELS V76.10 BREAST CANCER SCREENING 04/12/2012 RICHARD MANAGER AMBULATORY, JEWELS V76.2 CERVICAL CANCER SCREENING (PAP SMEAR) 04/12/2012 RICHARD MANAGER AMBULATORY, JEWELS V76.51 COLON CANCER SCREENING 04/12/2012 RICHARD MANAGER AMBULATORY, JEWELS 008.8 GASTROENTERITIS, VIRAL 04/12/2012 RICHARD MANAGER AMBULATORY, JEWELS V76.10 BREAST CANCER SCREENING 04/12/2012 RICHARD MANAGER AMBULATORY, JEWELS V76.2 CERVICAL CANCER SCREENING (PAP SMEAR) 04/12/2012 RICHARD MANAGER AMBULATORY, JEWELS V76.51 COLON CANCER SCREENING 04/17/2012 JEWELS [...] MD 528.2 ORAL APHTHAE 04/17/2012 MARIA GUADALUPE MANAGER AMBULATORY, TON S 528.2 ORAL APHTHAE 04/17/2012 MARIA GUADALUPE MANAGER AMBULATORY, TON S 528.2 ORAL APHTHAE 04/17/2012 MARIA GUADALUPE MANAGER AMBULATORY, TON S 528.2 ORAL APHTHAE 04/17/2012 MARIA GUADALUPE MANAGER AMBULATORY, TON S 528.2 ORAL APHTHAE 04/17/2012 MARIA GUADALUPE MANAGER AMBULATORY, TON S 528.2 ORAL APHTHAE 04/17/2012 CATHERINE PERALES APRN 528.2 ORAL APHTHAE 04/17/2012 MARIA GUADALUPE MANAGER AMBULATORY, TON S 528.2 ORAL APHTHAE 04/17/2012 MARIA GUADALUPE VAUGHN, TON S 528.2 ORAL APHTHAE 04/17/2012 MARIA GUADALUPE MANAGER AMBULATORY, TON S 528.2 ORAL APHTHAE 04/17/2012 MARIA GUADALUPE MANAGER AMBULATORY, TON S 528.2 ORAL APHTHAE 04/17/2012 VELASQUEZ [...] S 535.50 GASTRITIS UNSPEC 07/01/2012 MARIA GUADALUPE MANAGER AMBULATORY, TON S 729.1 MYALGIA AND MYOSITIS UNSPECIFIED 07/01/2012 MARIA GUADALUPE MANAGER AMBULATORY, TON S 535.50 GASTRITIS UNSPEC 07/01/2012 MARIA GUADALUPE MANAGER AMBULATORY, TON S 729.1 MYALGIA AND MYOSITIS UNSPECIFIED 07/01/2012 CATHERINE PERALES APRN 535.50 GASTRITIS UNSPEC 07/01/2012 CATHERINE PERALES APRN 729.1 MYALGIA AND MYOSITIS UNSPECIFIED 07/01/2012 MARIA GUADALUPE MANAGER AMBULATORY, TON S 535.50 GASTRITIS UNSPEC 07/01/2012 MARIA GUADALUPE MANAGER AMBULATORY, TON S 729.1 MYALGIA AND MYOSITIS UNSPECIFIED 07/01/2012 MARIA GUADALUPE MANAGER AMBULATORY, TON S 535.50 GASTRITIS UNSPEC 07/01/2012 MARIA GUADALUPE MANAGER AMBULATORY, TON S 729.1 MYALGIA AND MYOSITIS UNSPECIFIED 07/01/2012 MARIA GUADALUPE VAUGHN, TON S 535.50 GASTRITIS UNSPEC 07/01/2012 MARIA GUADALUPE MANAGER AMBULATORY, TON S 729.1 MYALGIA AND MYOSITIS UNSPECIFIED 07/01/2012 MARIA GUADALUPE MANAGER AMBULATORY, TON S 535.50 GASTRITIS UNSPEC 07/01/2012 MARIA [...] 729.1 MYALGIA AND MYOSITIS UNSPECIFIED 07/01/2012 RICHARD MANAGER AMBULATORY, JEWELS 535.50 GASTRITIS UNSPEC 07/01/2012 RICHARD MANAGER AMBULATORY, JEWELS 729.1 MYALGIA AND MYOSITIS UNSPECIFIED 07/01/2012 RICHARD MANAGER AMBULATORY, JEWELS 535.50 GASTRITIS UNSPEC 07/01/2012 RICHARD MANAGER AMBULATORY, JEWELS 729.1 MYALGIA AND MYOSITIS UNSPECIFIED 07/01/2012 RICHARD MANAGER AMBULATORY, JEWELS 535.50 GASTRITIS UNSPEC 07/01/2012 RICHARD MANAGER AMBULATORY, JEWELS 729.1 MYALGIA AND MYOSITIS UNSPECIFIED 07/05/2012 Ot 729.5 PAIN IN LIMB 08/04/2012 MARJORIE STRONG APRN 782.3 EDEMA 08/04/2012 782.3 EDEMA 08/04/2012 782.3 EDEMA 08/04/2012 782.3 EDEMA 08/04/2012 MARIA GUADALUPE CHAUDHARIN, TON S 782.3 EDEMA 08/04/2012 MARIA GUADALUPE CHAUDHARIN, TON S 782.3 EDEMA 08/04/2012 ISAIAS VALENZUELA MD 782.3 EDEMA 08/04/2012 MARIA GUADALUPE MANAGER AMBULATORY, TON S 782.3 EDEMA 08/04/2012 MARIA GUADALUPE MANAGER AMBULATORY, TON S 782.3 EDEMA 08/04/2012 MARIA GUADALUPE MANAGER AMBULATORY, TON S 782.3 EDEMA 08/04/2012 MARIA GUADALUPE MANAGER AMBULATORY, TON S 782.3 EDEMA 08/04/2012 MARIA GUADALUPE MANAGER AMBULATORY, TON S 782.3 EDEMA 08/04/2012 CATHERINE PERALES APRN 782.3 EDEMA 08/04/2012 MARIA GUADALUPE MANAGER AMBULATORY, TON S 782.3 EDEMA 08/04/2012 MARIA GUADALUPE MANAGER AMBULATORY, TON S 782.3 EDEMA 08/04/2012 MARIA GUADALUPE MANAGER AMBULATORY, TON S 782.3 EDEMA 08/04/2012 MARIA GUADALUPE MANAGER AMBULATORY, TON S 782.3 EDEMA 08/04/2012 VELASQUEZ KAUR PSYD 782.3 EDEMA 08/04/2012 JEWELS ROMANO DO 782.3 EDEMA 08/04/2012 VELASQUEZ KAUR PSYD 782.3 EDEMA 08/04/2012 SYMONE POST APRN 782.3 EDEMA 08/04/2012 RICHARD MANAGER AMBULATORY, JEWELS 782.3 EDEMA 08/04/2012 RICHARD MANAGER AMBULATORY, JEWELS 782.3 EDEMA 08/04/2012 RICHARD MANAGER AMBULATORY, JEWELS 782.3 EDEMA 08/18/2012 780.4 DIZZINESS AND VERTIGO 08/18/2012 780.4 DIZZINESS AND VERTIGO 08/18/2012 780.4 DIZZINESS AND VERTIGO 08/18/2012 MARIA GUADALUPE MANAGER AMBULATORY, TON S 780.4 DIZZINESS AND VERTIGO 08/18/2012 MARIA GUADALUPE MANAGER AMBULATORY, TON S 780.4 DIZZINESS AND VERTIGO 08/18/2012 BIANCA SHAH, ISAIAS 780.4 DIZZINESS AND VERTIGO 08/18/2012 MARIA GUADALUPE MANAGER AMBULATORY, TON S 780.4 DIZZINESS AND VERTIGO 08/18/2012 MARIA GUADALUPE MANAGER AMBULATORY, TON S 780.4 DIZZINESS AND VERTIGO 08/18/2012 MARIA GUADALUPE MANAGER AMBULATORY, TON S 780.4 DIZZINESS AND VERTIGO 08/18/2012 MARIA GUADALUPE MANAGER AMBULATORY, TON S 780.4 DIZZINESS AND VERTIGO 08/18/2012 MARIA GUADALUPE MANAGER AMBULATORY, TON S 780.4 DIZZINESS AND VERTIGO 08/18/2012 CATHERINE PERALES APRN 780.4 DIZZINESS AND VERTIGO 08/18/2012 MARIA GUADALUPE MANAGER AMBULATORY, TON S 780.4 DIZZINESS AND VERTIGO 08/18/2012 MARIA GUADALUPE MANAGER AMBULATORY, TON S 780.4 DIZZINESS AND VERTIGO 08/18/2012 MARIA GUADALUPE MANAGER AMBULATORY, TON S 780.4 DIZZINESS AND VERTIGO 08/18/2012 MARIA GUADALUPE MANAGER AMBULATORY, OTN S 780.4 DIZZINESS AND VERTIGO 08/18/2012 VELASQUEZ KAUR PSYD 780.4 DIZZINESS AND VERTIGO 08/18/2012 JEWELS ROMANO DO 780.4 DIZZINESS AND VERTIGO 08/18/2012 VELASQUEZ KAUR PSYD 780.4 DIZZINESS AND VERTIGO 08/18/2012 SYMONE POST APRN 780.4 DIZZINESS AND VERTIGO 08/18/2012 RICHARD MANAGER AMBULATORY, JEWELS 780.4 DIZZINESS AND VERTIGO 08/18/2012 RICHARD MANAGER AMBULATORY, JEWELS 780.4 DIZZINESS AND VERTIGO 08/18/2012 RICHARD MANAGER AMBULATORY, JEWELS 780.4 DIZZINESS AND VERTIGO 11/03/2012 530.81 GERD 11/03/2012 789.06 ABDOMINAL PAIN EPIGASTRIC 11/03/2012 530.81 GERD 11/03/2012 789.06 ABDOMINAL PAIN EPIGASTRIC 11/03/2012 MARIA GUADALUPE MANAGER AMBULATORY, TON S 530.81 GERD 11/03/2012 MARIA GUADALUPE MANAGER AMBULATORY, TON S 789.06 ABDOMINAL PAIN EPIGASTRIC 11/03/2012 MARIA GUADALUPE MANAGER AMBULATORY, TON S 530.81 GERD 11/03/2012 MARIA GUADALUPE MANAGER AMBULATORY, TON S 789.06 ABDOMINAL PAIN EPIGASTRIC 11/03/2012 BIANCA SHAH, ISAIAS 530.81 GERD 11/03/2012 BIANCA SHAH, ISAIAS 789.06 ABDOMINAL PAIN EPIGASTRIC 11/03/2012 MARIA GUADALUPE MANAGER AMBULATORY, TON S 530.81 GERD 11/03/2012 MARIA GUADALUPE MANAGER AMBULATORY, TON S 789.06 ABDOMINAL PAIN EPIGASTRIC 11/03/2012 MARIA GUADALUPE MANAGER AMBULATORY, TON S 530.81 GERD 11/03/2012 MARIA GUADALUPE MANAGER AMBULATORY, TON S 789.06 ABDOMINAL PAIN EPIGASTRIC 11/03/2012 MARIA GUADALUPE MANAGER AMBULATORY, TON S 530.81 GERD 11/03/2012 MARIA GUADALUPE MANAGER AMBULATORY, TON S 789.06 ABDOMINAL PAIN EPIGASTRIC 11/03/2012 MARIA GUADALUPE MANAGER AMBULATORY, TON S 530.81 GERD 11/03/2012 MARIA GUADALUPE MANAGER AMBULATORY, TON S 789.06 ABDOMINAL PAIN EPIGASTRIC 11/03/2012 MARIA GUADALUPE MANAGER AMBULATORY, TON S 530.81 GERD 11/03/2012 MARIA GUADALUPE MANAGER AMBULATORY, TON S 789.06 ABDOMINAL PAIN EPIGASTRIC 11/03/2012 DIAZ MANAGER AMBULATORY, CATHERINE T 530.81 GERD 11/03/2012 DIAZ MANAGER AMBULATORYCATHERINE Ramos T 789.06 ABDOMINAL PAIN EPIGASTRIC 11/03/2012 MARIA GUADALUPE MANAGER AMBULATORY, TON S 530.81 GERD 11/03/2012 MARIA GUADALUPE MANAGER AMBULATORY, TON S 789.06 ABDOMINAL PAIN EPIGASTRIC 11/03/2012 MARIA GUADALUPE MANAGER AMBULATORY, TON S 530.81 GERD 11/03/2012 MARIA GUADALUPE MANAGER AMBULATORY, TON S 789.06 ABDOMINAL PAIN EPIGASTRIC 11/03/2012 MARIA GUADALUPE MANAGER AMBULATORY, TON S 530.81 GERD 11/03/2012 MARIA GUADALUPE MANAGER AMBULATORY, TON S 789.06 ABDOMINAL PAIN EPIGASTRIC 11/03/2012 MARIA GUADALUPE MANAGER AMBULATORY, TON S 530.81 GERD 11/03/2012 MARIA GUADALUPE MANAGER AMBULATORY, TON S 789.06 ABDOMINAL PAIN EPIGASTRIC 11/03/2012 [...] APRN 789.06 ABDOMINAL PAIN EPIGASTRIC 11/03/2012 RICHARD MANAGER AMBULATORY, JEWELS 530.81 GERD 11/03/2012 RICHARD MANAGER AMBULATORY, JEWELS 789.06 ABDOMINAL PAIN EPIGASTRIC 11/03/2012 RICHARD MANAGER AMBULATORY, JEWELS 530.81 GERD 11/03/2012 RICHARD MANAGER AMBULATORY, JEWELS 789.06 ABDOMINAL PAIN EPIGASTRIC 11/03/2012 RICHARD MANAGER AMBULATORY, JEWESL 530.81 GERD 11/03/2012 RICHARD MANAGER AMBULATORY, JEWELS 789.06 ABDOMINAL PAIN EPIGASTRIC 02/21/2013 MARIA GUADALUPE MANAGER AMBULATORY, TON S 611.6 GALACTORRHEA 02/21/2013 MARIA GUADALUPE MANAGER AMBULATORY, TON S V58.69 HIGH RISK MEDICATION 02/21/2013 ISAIAS VALENZUELA MD 611.6 GALACTORRHEA 02/21/2013 ISAIAS VALENZUELA MD V58.69 HIGH RISK MEDICATION 02/21/2013 MARIA GUADALUPE MANAGER AMBULATORY, TON S 611.6 GALACTORRHEA 02/21/2013 MARIA GUADALUPE MANAGER AMBULATORY, TON S V58.69 HIGH RISK MEDICATION 02/21/2013 MARIA GUADALUPE MANAGER AMBULATORY, TON S 611.6 GALACTORRHEA 02/21/2013 MARIA GUADALUPE MANAGER AMBULATORY, TON S V58.69 HIGH RISK MEDICATION 02/21/2013 MARIA GUADALUPE MANAGER AMBULATORY, TON S 611.6 GALACTORRHEA 02/21/2013 MARIA GUADALUPE MANAGER AMBULATORY, TON S V58.69 HIGH RISK MEDICATION 02/21/2013 MARIA GUADALUPE MANAGER AMBULATORY, TON S 611.6 GALACTORRHEA 02/21/2013 MARIA GUADALUPE MANAGER AMBULATORY, TON S V58.69 HIGH RISK MEDICATION 02/21/2013 MARIA GUADALUPE MANAGER AMBULATORY, TON S 611.6 GALACTORRHEA 02/21/2013 MARIA GUADALUPE MANAGER AMBULATORY, TON S V58.69 HIGH RISK MEDICATION 02/21/2013 DIAZ MANAGER AMBULATORY, CATHERINE T 611.6 GALACTORRHEA 02/21/2013 DIAZ MANAGER AMBULATORY, CATHERINE T V58.69 HIGH RISK MEDICATION 02/21/2013 MARIA GUADALUPE MANAGER AMBULATORY, TON S 611.6 GALACTORRHEA 02/21/2013 MARIA GUADALUPE MANAGER AMBULATORY, TON S V58.69 HIGH RISK MEDICATION 02/21/2013 MARIA GUADALUPE MANAGER AMBULATORY, TON S 611.6 GALACTORRHEA 02/21/2013 MARIA GUADALUPE MANAGER AMBULATORY, TON S V58.69 HIGH RISK MEDICATION 02/21/2013 MARIA GUADALUPE MANAGER AMBULATORY, TON S 611.6 GALACTORRHEA 02/21/2013 MARIA GUADALUPE MANAGER AMBULATORY, TON S V58.69 HIGH RISK MEDICATION 02/21/2013 MARIA GUADALUPE MANAGER AMBULATORY, TON S 611.6 GALACTORRHEA 02/21/2013 MARIA GUADALUPE MANAGER AMBULATORY, TON S V58.69 HIGH RISK MEDICATION 02/21/2013 [...] APRN V58.69 HIGH RISK MEDICATION 02/21/2013 RICHARD MANAGER AMBULATORY, JEWELS 611.6 GALACTORRHEA 02/21/2013 RICHARD MANAGER AMBULATORY, JEWELS V58.69 HIGH RISK MEDICATION 02/21/2013 RICHARD MANAGER AMBULATORY, JEWELS 611.6 GALACTORRHEA 02/21/2013 RICHARD MANAGER AMBULATORY, JEWELS V58.69 HIGH RISK MEDICATION 02/21/2013 RICHARD MANAGER AMBULATORY, JEWELS 611.6 GALACTORRHEA 02/21/2013 RICHARD MANAGER AMBULATORY, JEWELS V58.69 HIGH RISK MEDICATION 03/08/2013 BIANCA SHAH, ISAIAS 461.9 SINUSITIS ACUTE 03/08/2013 MARIA GUADALUPE MANAGER AMBULATORY, TON S 461.9 SINUSITIS ACUTE 03/08/2013 MARIA GUADALUPE MANAGER AMBULATORY, TON S 461.9 SINUSITIS ACUTE 03/08/2013 MARIA GUADALUPE MANAGER AMBULATORY, TON S 461.9 SINUSITIS ACUTE 03/08/2013 MARIA GUADALUPE MANAGER AMBULATORY, TON S 461.9 SINUSITIS ACUTE 03/08/2013 MARIA GUADALUPE MANAGER AMBULATORY, TON S 461.9 SINUSITIS ACUTE 03/08/2013 CATHERINE PERALES APRN 461.9 SINUSITIS ACUTE 03/08/2013 MARIA GUADALUPE MANAGER AMBULATORY, TON S 461.9 SINUSITIS ACUTE 03/08/2013 MARIA GUADALUPE MANAGER AMBULATORY, TON S 461.9 SINUSITIS ACUTE 03/08/2013 MARIA GUADALUPE MANAGER AMBULATORY, TON S 461.9 SINUSITIS ACUTE 03/08/2013 MARIA GUADALUPE MANAGER AMBULATORY, TON S 461.9 SINUSITIS ACUTE 03/08/2013 VELASQUEZ KAUR PSYD 461.9 SINUSITIS ACUTE 03/08/2013 JEWELS ROMANO DO 461.9 SINUSITIS ACUTE 03/08/2013 VELASQUEZ KAUR PSYD 461.9 SINUSITIS ACUTE 03/08/2013 SYMONE POST APRN 461.9 SINUSITIS ACUTE 03/08/2013 RICHARD MANAGER AMBULATORY, JEWELS 461.9 SINUSITIS ACUTE 03/08/2013 RICHARD MANAGER AMBULATORY, JEWELS 461.9 SINUSITIS ACUTE 03/08/2013 RICHARD MANAGER AMBULATORY, JEWELS 461.9 SINUSITIS ACUTE 03/22/2013 MARIA GUADALUPE MANAGER AMBULATORY, TON S 627.2 hot flashes 03/22/2013 MARIA GUADALUPE MANAGER AMBULATORY, TON S 627.2 hot flashes 03/22/2013 MARIA GUADALUPE MANAGER AMBULATORY, TON S 627.2 HOT FLASHES 03/22/2013 MARIA GUADALUPE MANAGER AMBULATORY, TON S 627.2 HOT FLASHES 03/22/2013 MARIA GUADALUPE MANAGER AMBULATORY, TON S 627.2 HOT FLASHES 03/22/2013 CATHERINE PERALES APRN 627.2 HOT FLASHES 03/22/2013 MARIA GUADALUPE MANAGER AMBULATORY, TON S 627.2 HOT FLASHES 03/22/2013 MARIA GUADALUPE MANAGER AMBULATORY, TON S 627.2 HOT FLASHES 03/22/2013 MARIA GUADALUPE MANAGER AMBULATORY, TON S 627.2 HOT FLASHES 03/22/2013 MARIA GUADALUPE MANAGER AMBULATORY, TON S 627.2 HOT FLASHES 03/22/2013 VELASQUEZ KAUR PSYD L 627.2 HOT FLASHES 03/22/2013 JEWELS ROMANO DO 627.2 HOT FLASHES 03/22/2013 VELASQUEZ KAUR PSYD L 627.2 HOT FLASHES 03/22/2013 POST MANAGER AMBULATORY, SYMONE D 627.2 HOT FLASHES 03/22/2013 RICHARD MANAGER AMBULATORY, JEWELS 627.2 HOT FLASHES 03/22/2013 RICHARD MANAGER AMBULATORY, JEWELS 627.2 HOT FLASHES 03/22/2013 RICHARD MANAGER AMBULATORY, JEWELS 627.2 HOT FLASHES 03/29/2013 MARIA GUADALUPE MANAGER AMBULATORY, TON S 300.00 ANXIETY UNSPEC 03/29/2013 MARIA GUADALUPE MANAGER AMBULATORY, TON S 300.00 ANXIETY UNSPEC 03/29/2013 MARIA GUADALUPE MANAGER AMBULATORY, TON S 300.00 ANXIETY UNSPEC 03/29/2013 MARIA GUADALUPE MANAGER AMBULATORY, TON S 300.00 ANXIETY UNSPEC 03/29/2013 MARIA GUADALUPE MANAGER AMBULATORY, TON S 300.00 ANXIETY UNSPEC 03/29/2013 CATHERINE PERALES APRN 300.00 ANXIETY UNSPEC 03/29/2013 MARIA GUADALUPE MANAGER AMBULATORY, TON S 300.00 ANXIETY UNSPEC 03/29/2013 MARIA GUADALUPE MANAGER AMBULATORY, TON S 300.00 ANXIETY UNSPEC 03/29/2013 TON LERMA APRN S 300.00 ANXIETY UNSPEC 03/29/2013 TON LERMA APRN S 300.00 ANXIETY UNSPEC 03/29/2013 VELASQUEZ KAUR PSYD 300.00 ANXIETY UNSPEC 03/29/2013 JEWELS ROMANO DO 300.00 ANXIETY UNSPEC 03/29/2013 VELASQUEZ KAUR PSYD 300.00 ANXIETY UNSPEC 03/29/2013 SYMONE POST APRN 300.00 ANXIETY UNSPEC 03/29/2013 RICHARD MANAGER AMBULATORY, JEWELS 300.00 ANXIETY UNSPEC 03/29/2013 RICHARD MANAGER AMBULATORY, JEWELS 300.00 ANXIETY UNSPEC 03/29/2013 RICHARD MANAGER AMBULATORY, JEWELS 300.00 ANXIETY UNSPEC 05/23/2013 TON LERMA [...] APRN 692.6 POISON REBA 10/06/2013 MARIA GUADALUPE MANAGER AMBULATORY, TON S 692.6 POISON REBA 10/06/2013 MARIA GUADALUPE MANAGER AMBULATORY, TON S 692.6 POISON REBA 10/06/2013 MARIA GUADALUPE MANAGER AMBULATORY, TON S 692.6 POISON REBA 10/06/2013 MARIA GUADALUPE MANAGER AMBULATORY, TON S 692.6 POISON REBA 10/06/2013 VELASQUEZ KAUR PSYD 692.6 POISON REBA 10/06/2013 JEWELS ROMANO DO K 692.6 POISON REBA 10/06/2013 VELASQUEZ KAUR PSYD 692.6 POISON REBA 10/06/2013 SYMONE POST APRN 692.6 POISON REBA 10/06/2013 RICHARD MANAGER AMBULATORY, JEWELS 692.6 POISON REBA 10/06/2013 RICHARD MANAGER AMBULATORY, JEWELS 692.6 POISON REBA 10/06/2013 RICHARD MANAGER AMBULATORY, JEWELS 692.6 POISON REBA 11/09/2013 MARIA GUADALUPE MANAGER AMBULATORY, TON S 787.91 DIARRHEA 11/09/2013 MARIA GUADALUPE MANAGER AMBULATORY, TON S 787.91 DIARRHEA 11/09/2013 CATHERINE PERALES APRN 787.91 DIARRHEA 11/09/2013 MARIA GUADALUPE MANAGER AMBULATORY, TON S 787.91 DIARRHEA 11/09/2013 MARIA GUADALUPE MANAGER AMBULATORY, TON S 787.91 DIARRHEA 11/09/2013 MARIA GUADALUPE MANAGER AMBULATORY, TON S 787.91 DIARRHEA 11/09/2013 MARIA GUADALUPE MANAGER AMBULATORY, TON S 787.91 DIARRHEA 11/09/2013 VELASQUEZ KAUR PSYD 787.91 DIARRHEA 11/09/2013 JEWELS ROMANO DO K 787.91 DIARRHEA 11/09/2013 VELASQUEZ KAUR PSYD 787.91 DIARRHEA 11/09/2013 SYMONE POST APRN 787.91 DIARRHEA 11/09/2013 RICHARD MANAGER AMBULATORY, JEWELS 787.91 DIARRHEA 11/09/2013 RICHARD MANAGER AMBULATORY, JEWELS 787.91 DIARRHEA 11/09/2013 RICHARD MANAGER AMBULATORY, JEWELS 787.91 DIARRHEA 11/29/2013 MARIA GUADALUPE MANAGER AMBULATORY, TON S 790.6 Liver Function Test, Abnormal 11/29/2013 MARIA GUADALUPE MANAGER AMBULATORY, TON S 790.6 Liver Function Test, Abnormal 11/29/2013 DIAZ VAUGHN, CATHERINE Walker 790.6 Liver Function Test, Abnormal 11/29/2013 MARIA GUADALUPE MANAGER AMBULATORY, TON S 790.6 Liver Function Test, Abnormal 11/29/2013 MARIA GUADALUPE MANAGER AMBULATORY, TON S 790.6 Liver Function Test, Abnormal 11/29/2013 MARIA GUADALUPE MANAGER AMBULATORY, TON S 790.6 Liver Function Test, Abnormal 11/29/2013 MARIA GUADALUPE MANAGER AMBULATORY, TON S 790.6 Liver Function Test, Abnormal 11/29/2013 VELASQUEZ KAUR PSYD ANN L 790.6 Liver Function Test, Abnormal 11/29/2013 JEWELS ROMANO DO 790.6 Liver Function Test, Abnormal 11/29/2013 VELASQUEZ KAUR PSYD L 790.6 Liver Function Test, Abnormal 11/29/2013 POST MANAGER AMBULATORY, SYMONE D 790.6 Liver Function Test, Abnormal 11/29/2013 RICHARD MANAGER AMBULATORY, JEWELS 790.6 Liver Function Test, Abnormal 11/29/2013 RICHARD MANAGER AMBULATORY, JEWELS 790.6 Liver Function Test, Abnormal 11/29/2013 RICHARD MANAGER AMBULATORY, JEWELS 790.6 Liver Function Test, Abnormal 12/14/2013 DIAZ VAUGHN, CATHERINE T 466.0 BRONCHITIS, ACUTE 12/14/2013 CATHERINE PERALES APRN 724.2 BACK PAIN, LOWER 12/14/2013 MARIA GUADALUPE MANAGER AMBULATORY, TON S 466.0 BRONCHITIS, ACUTE 12/14/2013 MARIA GUADALUPE MANAGER AMBULATORY, OTN S 724.2 BACK PAIN, LOWER 12/14/2013 MARIA GUADALUPE MANAGER AMBULATORY, TON S 466.0 BRONCHITIS, ACUTE 12/14/2013 MARIA GUADALUPE MANAGER AMBULATORY, TON S 724.2 BACK PAIN, LOWER 12/14/2013 MARIA GUADALUPE MANAGER AMBULATORY, TON S 466.0 BRONCHITIS, ACUTE 12/14/2013 MARIA GUADALUPE MANAGER AMBULATORY, TON S 724.2 BACK PAIN, LOWER 12/14/2013 MARIA GUADALUPE MANAGER AMBULATORY, TON S 466.0 BRONCHITIS, ACUTE 12/14/2013 MARIA GUADALUPE MANAGER AMBULATORY, TON S 724.2 BACK PAIN, LOWER 12/14/2013 NATASHA PERALES, GERONIMO L 466.0 BRONCHITIS, ACUTE 12/14/2013 NATASHA PERALES, GERONIMO L 724.2 BACK PAIN, LOWER 12/14/2013 ROMANO DO, JEWELS K 466.0 BRONCHITIS, ACUTE 12/14/2013 ROMANO DO, JEWELS K 724.2 BACK PAIN, LOWER 12/14/2013 NATASHA PERALES, GERONIMO L 466.0 BRONCHITIS, ACUTE 12/14/2013 NATASHA PERALES, GERONIMO L 724.2 BACK PAIN, LOWER 12/14/2013 POST MANAGER AMBULATORYMAUREENON D 466.0 BRONCHITIS, ACUTE 12/14/2013 POST MANAGER AMBULATORY, SYMONE D 724.2 BACK PAIN, LOWER 12/14/2013 RICHARD MANAGER AMBULATORY, JEWELS 466.0 BRONCHITIS, ACUTE 12/14/2013 RICHARD MANAGER AMBULATORY, JEWELS 724.2 BACK PAIN, LOWER 12/14/2013 RICHARD MANAGER AMBULATORY, JEWELS 466.0 BRONCHITIS, ACUTE 12/14/2013 RICHARD MANAGER AMBULATORY, JEWELS 724.2 BACK PAIN, LOWER 12/14/2013 RICHARD MANAGER AMBULATORY, JEWELS 466.0 BRONCHITIS, ACUTE 12/14/2013 RICHARD MANAGER AMBULATORY, JEWELS 724.2 BACK PAIN, LOWER 12/29/2013 MARIA GUADALUPE MANAGER AMBULATORY, TON S 461.9 SINUSITIS ACUTE 12/29/2013 MARIA GUADALUPE MANAGER AMBULATORY, TON S 788.1 DYSURIA 12/29/2013 MARIA GUADALUPE MANAGER AMBULATORY, TON S 461.9 SINUSITIS ACUTE 12/29/2013 MARIA GUADALUPE MANAGER AMBULATORY, TON S 788.1 DYSURIA 12/29/2013 MARIA GUADALUPE MANAGER AMBULATORY, TON S 461.9 SINUSITIS ACUTE 12/29/2013 MARIA GUADALUPE MANAGER AMBULATORY, TON S 788.1 DYSURIA 12/29/2013 MARIA GUADALUPE MANAGER AMBULATORY, TON S 461.9 SINUSITIS ACUTE 12/29/2013 MARIA GUADALUPE MANAGER AMBULATORY, TON S 788.1 DYSURIA 12/29/2013 VELASQUEZ KAUR PSYD L 461.9 SINUSITIS ACUTE 12/29/2013 VELASQUEZ KAUR PSYD 788.1 DYSURIA 12/29/2013 JEWELS ROMANO DO 461.9 SINUSITIS ACUTE 12/29/2013 JEWELS ROMANO DO K 788.1 DYSURIA 12/29/2013 VELASQUEZ KAUR PSYD 461.9 SINUSITIS ACUTE 12/29/2013 VELASQUEZ KAUR PSYD 788.1 DYSURIA 12/29/2013 SYMONE POST APRN 461.9 SINUSITIS ACUTE 12/29/2013 POST SYMONE VAUGHN 788.1 DYSURIA 12/29/2013 RICHARD MANAGER AMBULATORY, JEWELS 461.9 SINUSITIS ACUTE 12/29/2013 RICHARD MANAGER AMBULATORY, JEWELS 788.1 DYSURIA 12/29/2013 RICHARD MANAGER AMBULATORY, JEWELS 461.9 SINUSITIS ACUTE 12/29/2013 RICHARD MANAGER AMBULATORY, JEWELS 788.1 DYSURIA 12/29/2013 RICHARD MANAGER AMBULATORY, JEWELS 461.9 SINUSITIS ACUTE 12/29/2013 RICHARD MANAGER AMBULATORY, JEWELS 788.1 DYSURIA 02/02/2014 MARIA GUADALUPEGARY VAUGHN, TON S 719.46 PAIN- KNEE 02/02/2014 MARIA GUADALUPEGARY VAUGHN, TON S 719.46 PAIN- KNEE 02/02/2014 VELASQUEZ KAUR PSYD 719.46 PAIN- KNEE 02/02/2014 JEWELS ROMANO DO K 719.46 PAIN- KNEE 02/02/2014 VELASQUEZ KAUR PSYD 719.46 PAIN- KNEE 02/02/2014 SYMONE POST APRN 719.46 PAIN- KNEE 02/02/2014 RICHARD MANAGER AMBULATORY, JEWELS 719.46 PAIN- KNEE 02/02/2014 RICHARD MANAGER AMBULATORY, JEWELS 719.46 PAIN- KNEE 02/02/2014 RICHARD MANAGER AMBULATORY, JEWELS 719.46 PAIN- KNEE 03/15/2014 VELASQUEZ KAUR [...] APRN 311 DEPRESSIVE DISORDER NOS 03/15/2014 RICHARD MANAGER AMBULATORY, JEWELS 309.81 AN PTSD 03/15/2014 RICHARD MANAGER AMBULATORY, JEWELS 311 DEPRESSIVE DISORDER NOS 03/15/2014 RICHARD MANAGER AMBULATORY, JEWELS 309.81 AN PTSD 03/15/2014 RICHARD MANAGER AMBULATORY, JEWELS 311 DEPRESSIVE DISORDER NOS 03/15/2014 RICHARD MANAGER AMBULATORY, JEWELS 309.81 AN PTSD 03/15/2014 RICHARD MANAGER AMBULATORY, JEWELS 311 DEPRESSIVE DISORDER NOS 05/29/2014 SYMONE POST APRN V74.1 TB SCREENING 05/29/2014 RICHARD JEWELS VAUGHN V74.1 TB SCREENING 05/29/2014 RICHARDJEWELS FUENTES APRN V74.1 TB SCREENING 05/29/2014 RICHARD JEWELS VAUGHN V74.1 TB SCREENING 06/26/2014 Ot 722.4 06/26/2014 Ot 530.81 06/26/2014 Ot 574.20 06/26/2014 Ot V72.63 06/26/2014 Ot V72.81 06/26/2014 Ot V74.8 06/26/2014 MARJORIE STRONG APRN Ot 789.06 06/26/2014 DERECK ALVAREZ COMMERCIAL DIRECTOR Ot 611.71 06/26/2014 TON LERMA [facility] Ot 719.46 06/28/2014 Ot 401.9 06/28/2014 Ot [...] DIAPHRAGMATIC HERNIA WITHOUT OBSTRUCTION 03/16/2015 TON LERMA COMMERCIAL DIRECTOR Ot R07.89 05/23/2015 TON LERMA COMMERCIAL DIRECTOR Ot R07.89 OTHER CHEST PAIN 06/14/2015 KATELYN SHAH, PRIETO Alfredo Ot Z01.818 06/14/2015 KATELYN SHAH, PRIETO Alfredo Ot Z01.818 06/14/2015 Ot R07.89 07/11/2015 TON LERMA COMMERCIAL DIRECTOR Ot K52.9 09/14/2015 TON LERMA COMMERCIAL DIRECTOR Ot K52.9 NONINFECTIVE GASTROENTERITIS AND COLITIS 09/14/2015 TON LERMA COMMERCIAL DIRECTOR Ot 719.46 JOINT PAIN-L/LEG 10/12/2015 TON LERMA COMMERCIAL DIRECTOR Ot 719.46 JOINT PAIN-L/LEG 10/12/2015 TON LERMAP Ot K52.9 NONINFECTIVE GASTROENTERITIS AND COLITIS 03/24/2016 KATELYN SHAH, PRIETO Alfredo Ot Z01.818 ENCOUNTER FOR OTHER PREPROCEDURAL EXAMIN 03/24/2016 PRIETO ZEPEDA MD Ot Z01.818 ENCOUNTER FOR OTHER PREPROCEDURAL EXAMIN 03/24/2016 Ot R07.89 OTHER CHEST PAIN 03/25/2016 TON LERMA COMMERCIAL DIRECTOR Ot R10.30 LOWER ABDOMINAL PAIN, UNSPECIFIED 04/23/2016 [...] R07.89 OTHER CHEST PAIN 12/27/2016 TON LERMA COMMERCIAL DIRECTOR Ot R10.30 LOWER ABDOMINAL PAIN, UNSPECIFIED 12/31/2016 KATELYN SHAH, PRIETO Alfredo Ot Z01.818 ENCOUNTER FOR OTHER PREPROCEDURAL EXAMIN 12/31/2016 KATELYN SHAH, PRIETO Alfredo Ot Z01.818 ENCOUNTER FOR OTHER PREPROCEDURAL EXAMIN 12/31/2016 Ot R07.89 OTHER CHEST PAIN 12/31/2016 TON LERMA COMMERCIAL DIRECTOR Ot R10.30 LOWER ABDOMINAL PAIN, UNSPECIFIED 01/02/2017 KATELYN SHAH, RPIETO Alfredo Ot Z01.818 ENCOUNTER FOR OTHER PREPROCEDURAL EXAMIN 01/02/2017 KATELYN SHAH, PRIETO Alfredo Ot Z01.818 ENCOUNTER FOR OTHER PREPROCEDURAL EXAMIN 01/02/2017 Ot R07.89 OTHER CHEST PAIN 01/02/2017 TON LERMA COMMERCIAL DIRECTOR Ot R10.30 LOWER ABDOMINAL PAIN, UNSPECIFIED 01/14/2017 TON LERMA COMMERCIAL DIRECTOR Ot R60.9 EDEMA, UNSPECIFIED 01/19/2017 TON LERMA COMMERCIAL DIRECTOR Ot K52.9 NONINFECTIVE GASTROENTERITIS AND COLITIS 01/19/2017 BRITNEY LERMAA COMMERCIAL DIRECTOR Ot K52.9 NONINFECTIVE GASTROENTERITIS AND COLITIS 01/21/2017 SABRA, VINCE L COMMERCIAL DIRECTOR Ot E78.2 MIXED HYPERLIPIDEMIA 01/21/2017 BAIMA, VINCE L COMMERCIAL DIRECTOR Ot I10 ESSENTIAL (PRIMARY) HYPERTENSION 01/21/2017 BAIMA, VINCE L COMMERCIAL DIRECTOR Ot I73.9 PERIPHERAL VASCULAR DISEASE, UNSPECIFIED 01/21/2017 BAIMA, VINCE L COMMERCIAL DIRECTOR Ot R00.2 PALPITATIONS 01/21/2017 BAIMA, VINCE L COMMERCIAL DIRECTOR Ot R06.09 OTHER FORMS OF DYSPNEA 01/21/2017 BAIMA, VINCE L COMMERCIAL DIRECTOR Ot R07.9 CHEST PAIN, UNSPECIFIED 01/21/2017 BAIMA, VINCE L COMMERCIAL DIRECTOR Ot E78.2 MIXED HYPERLIPIDEMIA 01/21/2017 BAIMA, VINCE L COMMERCIAL DIRECTOR Ot I10 ESSENTIAL (PRIMARY) HYPERTENSION 01/21/2017 BAIMA, VINCE L COMMERCIAL DIRECTOR Ot I73.9 PERIPHERAL VASCULAR DISEASE, UNSPECIFIED 01/21/2017 BAIMA, VINCE L COMMERCIAL DIRECTOR Ot R00.2 PALPITATIONS 01/21/2017 BAIMA, VINCE L COMMERCIAL DIRECTOR Ot R06.09 OTHER FORMS OF DYSPNEA 01/21/2017 BAIMA, VINCE L COMMERCIAL DIRECTOR Ot R07.9 CHEST PAIN, UNSPECIFIED 01/28/2017 BAIMA, VINCE L COMMERCIAL DIRECTOR Ot E78.2 MIXED HYPERLIPIDEMIA 01/28/2017 BAIMA, VINCE L COMMERCIAL DIRECTOR Ot I10 ESSENTIAL (PRIMARY) HYPERTENSION 01/28/2017 BAIMA, VINCE L COMMERCIAL DIRECTOR Ot I73.9 PERIPHERAL VASCULAR DISEASE, UNSPECIFIED 01/28/2017 BAIMA, VINCE L COMMERCIAL DIRECTOR Ot R00.2 PALPITATIONS 01/28/2017 BAIMA, VINCE L COMMERCIAL DIRECTOR Ot R06.09 OTHER FORMS OF DYSPNEA 01/28/2017 BAIMA, VINCE L COMMERCIAL DIRECTOR Ot R07.9 CHEST PAIN, UNSPECIFIED 01/28/2017 BAIMA, VINCE L COMMERCIAL DIRECTOR Ot E78.2 MIXED HYPERLIPIDEMIA 01/28/2017 BAIMA, VINCE L COMMERCIAL DIRECTOR Ot I10 ESSENTIAL (PRIMARY) HYPERTENSION 01/28/2017 BAIMA, VINCE L COMMERCIAL DIRECTOR Ot I73.9 PERIPHERAL VASCULAR DISEASE, UNSPECIFIED 01/28/2017 BAIMA, VINCE L COMMERCIAL DIRECTOR Ot R00.2 PALPITATIONS 01/28/2017 BAIMA, VINCE L COMMERCIAL DIRECTOR Ot R06.09 OTHER FORMS OF DYSPNEA 01/28/2017 BAIMA, VINCE L COMMERCIAL DIRECTOR Ot R07.9 CHEST PAIN, UNSPECIFIED 02/10/2017 KATELYN SHAH, PRIETO Alfredo Ot Z01.818 ENCOUNTER FOR OTHER PREPROCEDURAL EXAMIN 02/10/2017 KATELYN SHAH, PRIETO Alfredo Ot Z01.818 ENCOUNTER FOR OTHER PREPROCEDURAL EXAMIN 02/10/2017 Ot R07.89 OTHER CHEST PAIN 02/10/2017 TON LERMA COMMERCIAL DIRECTOR Ot K52.9 NONINFECTIVE GASTROENTERITIS AND COLITIS 02/10/2017 TON LERMA COMMERCIAL DIRECTOR Ot R10.30 LOWER ABDOMINAL PAIN, UNSPECIFIED 02/10/2017 TON LERMA COMMERCIAL DIRECTOR Ot R60.9 EDEMA, UNSPECIFIED 02/10/2017 BAIMA, VINCE L COMMERCIAL DIRECTOR Ot E78.2 MIXED HYPERLIPIDEMIA 02/10/2017 BAIMA, VINCE L COMMERCIAL DIRECTOR Ot I10 ESSENTIAL (PRIMARY) HYPERTENSION 02/10/2017 BAIMA, VINCE L COMMERCIAL DIRECTOR Ot I73.9 PERIPHERAL VASCULAR DISEASE, UNSPECIFIED 02/10/2017 BAIMA, VINCE L COMMERCIAL DIRECTOR Ot R00.2 PALPITATIONS 02/10/2017 BAIMA, VINCE L COMMERCIAL DIRECTOR Ot R06.09 OTHER FORMS OF DYSPNEA 02/10/2017 BAIMA, VINCE L COMMERCIAL DIRECTOR Ot R07.9 CHEST PAIN, UNSPECIFIED 02/10/2017 BAIMA, VINCE L COMMERCIAL DIRECTOR Ot E78.2 MIXED HYPERLIPIDEMIA 02/10/2017 BAIMA, VINCE L COMMERCIAL DIRECTOR Ot I10 ESSENTIAL (PRIMARY) HYPERTENSION 02/10/2017 BAIMA, VINCE L COMMERCIAL DIRECTOR Ot I73.9 PERIPHERAL VASCULAR DISEASE, UNSPECIFIED 02/10/2017 BAIMA, VINCE L COMMERCIAL DIRECTOR Ot R00.2 PALPITATIONS 02/10/2017 BAIMA, VINCE L COMMERCIAL DIRECTOR Ot R06.09 OTHER FORMS OF DYSPNEA 02/10/2017 BAIMA, VINCE L COMMERCIAL DIRECTOR Ot R07.9 CHEST PAIN, UNSPECIFIED 02/10/2017 MARJORIE STRONG MANAGER AMBULATORY Ot 789.06 ABDOMINAL PAIN, EPIGASTRIC 02/10/2017 DERECK LAVAREZ COMMERCIAL DIRECTOR Ot 611.71 MASTODYNIA 02/10/2017 TON LERMA COMMERCIAL DIRECTOR Ot 719.46 JOINT PAIN-L/LEG 02/10/2017 TNO LERMA COMMERCIAL DIRECTOR Ot R60.9 EDEMA, UNSPECIFIED 02/10/2017 BAIMA, VINCE L COMMERCIAL DIRECTOR Ot E78.2 MIXED HYPERLIPIDEMIA 02/10/2017 BAIMA, VINCE L COMMERCIAL DIRECTOR Ot I10 ESSENTIAL (PRIMARY) HYPERTENSION 02/10/2017 BAIMA, VINCE L COMMERCIAL DIRECTOR Ot I73.9 PERIPHERAL VASCULAR DISEASE, UNSPECIFIED 02/10/2017 BAIMA, VINCE L COMMERCIAL DIRECTOR Ot R00.2 PALPITATIONS 02/10/2017 BAIMA, VINCE L COMMERCIAL DIRECTOR Ot R06.09 OTHER FORMS OF DYSPNEA 02/10/2017 BAIMA, VINCE L COMMERCIAL DIRECTOR Ot R07.9 CHEST PAIN, UNSPECIFIED 02/10/2017 BAIMA, VINCE L COMMERCIAL DIRECTOR Ot E78.2 MIXED HYPERLIPIDEMIA 02/10/2017 BAIMA, VINCE L COMMERCIAL DIRECTOR Ot I10 ESSENTIAL (PRIMARY) HYPERTENSION 02/10/2017 BAIMA, VINCE L COMMERCIAL DIRECTOR Ot I73.9 PERIPHERAL VASCULAR DISEASE, UNSPECIFIED 02/10/2017 BAIMA, VINCE L COMMERCIAL DIRECTOR Ot R00.2 PALPITATIONS 02/10/2017 BAIMA, VINCE L COMMERCIAL DIRECTOR Ot R06.09 OTHER FORMS OF DYSPNEA 02/10/2017 BAIMA, VINCE L COMMERCIAL DIRECTOR Ot R07.9 CHEST PAIN, UNSPECIFIED 02/10/2017 MARJORIE STRONG Sayda MANAGER AMBULATORY Ot 789.06 ABDOMINAL PAIN, EPIGASTRIC 02/10/2017 DERECK ALVAREZ Ronna COMMERCIAL DIRECTOR Ot 611.71 MASTODYNIA 02/10/2017 TON LERMA COMMERCIAL DIRECTOR Ot 719.46 JOINT PAIN-L/LEG 02/10/2017 TON LERMA COMMERCIAL DIRECTOR Ot R60.9 EDEMA, UNSPECIFIED 02/10/2017 BAIMA, VINCE L COMMERCIAL DIRECTOR Ot E78.2 MIXED HYPERLIPIDEMIA 02/10/2017 BAIMA, VINCE L COMMERCIAL DIRECTOR Ot I10 ESSENTIAL (PRIMARY) HYPERTENSION 02/10/2017 BAIMA, VINCE L COMMERCIAL DIRECTOR Ot I73.9 PERIPHERAL VASCULAR DISEASE, UNSPECIFIED 02/10/2017 BAIMA, VINCE L COMMERCIAL DIRECTOR Ot R00.2 PALPITATIONS 02/10/2017 BAIMA, VINCE L COMMERCIAL DIRECTOR Ot R06.09 OTHER FORMS OF DYSPNEA 02/10/2017 BAIMA, VINCE L COMMERCIAL DIRECTOR Ot R07.9 CHEST PAIN, UNSPECIFIED 02/10/2017 BAIMA, VINCE L COMMERCIAL DIRECTOR Ot E78.2 MIXED HYPERLIPIDEMIA 02/10/2017 BAIMA, VINCE L COMMERCIAL DIRECTOR Ot I10 ESSENTIAL (PRIMARY) HYPERTENSION 02/10/2017 BAIMA, VINCE L COMMERCIAL DIRECTOR Ot I73.9 PERIPHERAL VASCULAR DISEASE, UNSPECIFIED 02/10/2017 BAIMA, VINCE L COMMERCIAL DIRECTOR Ot R00.2 PALPITATIONS 02/10/2017 BAIMA, VINCE L COMMERCIAL DIRECTOR Ot R06.09 OTHER FORMS OF DYSPNEA 02/10/2017 BAIMA, VINCE L COMMERCIAL DIRECTOR Ot R07.9 CHEST PAIN, UNSPECIFIED 02/10/2017 BAIMA, VINCE L COMMERCIAL DIRECTOR Ot E78.2 MIXED HYPERLIPIDEMIA 02/10/2017 BAIMA, VINCE L COMMERCIAL DIRECTOR Ot I10 ESSENTIAL (PRIMARY) HYPERTENSION 02/10/2017 BAIMA, VINCE L COMMERCIAL DIRECTOR Ot I73.9 PERIPHERAL VASCULAR DISEASE, UNSPECIFIED 02/10/2017 BAIMA, VINCE L COMMERCIAL DIRECTOR Ot R00.2 PALPITATIONS 02/10/2017 BAIMA, VINCE L COMMERCIAL DIRECTOR Ot R06.09 OTHER FORMS OF DYSPNEA 02/10/2017 BAIMA, VINCE L COMMERCIAL DIRECTOR Ot R07.9 CHEST PAIN, UNSPECIFIED 02/18/2017 BAIMA, VINCE L COMMERCIAL DIRECTOR Ot E78.2 MIXED HYPERLIPIDEMIA 02/18/2017 BAIMA, VINCE L COMMERCIAL DIRECTOR Ot I10 ESSENTIAL (PRIMARY) HYPERTENSION 02/18/2017 BAIMA, VINCE L COMMERCIAL DIRECTOR Ot I73.9 PERIPHERAL VASCULAR DISEASE, UNSPECIFIED 02/18/2017 BAIMA, VINCE L COMMERCIAL DIRECTOR Ot R00.2 PALPITATIONS 02/18/2017 BAIMA, VINCE L COMMERCIAL DIRECTOR Ot R06.09 OTHER FORMS OF DYSPNEA 02/18/2017 BAIMA, VINCE L COMMERCIAL DIRECTOR Ot R07.9 CHEST PAIN, UNSPECIFIED 03/31/2017 BAIMA, VINCE L COMMERCIAL DIRECTOR Ot E78.2 MIXED HYPERLIPIDEMIA 03/31/2017 BAIMA, VINCE L COMMERCIAL DIRECTOR Ot I10 ESSENTIAL (PRIMARY) HYPERTENSION 03/31/2017 BAIMA, VINEC L COMMERCIAL DIRECTOR Ot I73.9 PERIPHERAL VASCULAR DISEASE, UNSPECIFIED 03/31/2017 BAIMA, VINCE L COMMERCIAL DIRECTOR Ot R00.2 PALPITATIONS 03/31/2017 BAIMA, VINCE L COMMERCIAL DIRECTOR Ot R06.09 OTHER FORMS OF DYSPNEA 03/31/2017 BAIMA, VINCE L COMMERCIAL DIRECTOR Ot R07.9 CHEST PAIN, UNSPECIFIED 03/31/2017 TON LERMA COMMERCIAL DIRECTOR Ot R60.9 EDEMA, UNSPECIFIED 03/31/2017 BAIMA, VINCE L COMMERCIAL DIRECTOR Ot E78.2 MIXED HYPERLIPIDEMIA 03/31/2017 BAIMA, VINCE L COMMERCIAL DIRECTOR Ot I10 ESSENTIAL (PRIMARY) HYPERTENSION 03/31/2017 BAIMA, VINCE L COMMERCIAL DIRECTOR Ot I73.9 PERIPHERAL VASCULAR DISEASE, UNSPECIFIED 03/31/2017 BAIMA, VINCE L COMMERCIAL DIRECTOR Ot R00.2 PALPITATIONS 03/31/2017 BAIMA, VINCE L COMMERCIAL DIRECTOR Ot R06.09 OTHER FORMS OF DYSPNEA 03/31/2017 BAIMA, VINCE L COMMERCIAL DIRECTOR Ot R07.9 CHEST PAIN, UNSPECIFIED 03/31/2017 BAIMA, VINCE L COMMERCIAL DIRECTOR Ot E78.2 MIXED HYPERLIPIDEMIA 03/31/2017 BAIMA, VINCE L COMMERCIAL DIRECTOR Ot I10 ESSENTIAL (PRIMARY) HYPERTENSION 03/31/2017 BAIMA, VINCE L COMMERCIAL DIRECTOR Ot I73.9 PERIPHERAL VASCULAR DISEASE, UNSPECIFIED 03/31/2017 BAIMA, VINCE L COMMERCIAL DIRECTOR Ot R00.2 PALPITATIONS 03/31/2017 BAIMA, VINCE L COMMERCIAL DIRECTOR Ot R06.09 OTHER FORMS OF DYSPNEA 03/31/2017 BAIMA, VINCE L COMMERCIAL DIRECTOR Ot R07.9 CHEST PAIN, UNSPECIFIED 07/17/2017 BAIMA, VINCE L COMMERCIAL DIRECTOR Ot E78.2 MIXED HYPERLIPIDEMIA 07/17/2017 BAIMA, VINCE L COMMERCIAL DIRECTOR Ot I10 ESSENTIAL (PRIMARY) HYPERTENSION 07/17/2017 BAIMA, VINCE L COMMERCIAL DIRECTOR Ot I73.9 PERIPHERAL VASCULAR DISEASE, UNSPECIFIED 07/17/2017 BAIMA, VINCE L COMMERCIAL DIRECTOR Ot R00.2 PALPITATIONS 07/17/2017 BAIMA, VINCE L COMMERCIAL DIRECTOR Ot R06.09 OTHER FORMS OF DYSPNEA 07/17/2017 BAIMA, VINCE L COMMERCIAL DIRECTOR Ot R07.9 CHEST PAIN, UNSPECIFIED 07/17/2017 BAIMA, VINCE L COMMERCIAL DIRECTOR Ot E78.2 MIXED HYPERLIPIDEMIA 07/17/2017 BAIMA, VINCE L COMMERCIAL DIRECTOR Ot I10 ESSENTIAL (PRIMARY) HYPERTENSION 07/17/2017 BAIMA, VINCE L COMMERCIAL DIRECTOR Ot I73.9 PERIPHERAL VASCULAR DISEASE, UNSPECIFIED 07/17/2017 BAIMA, VINCE L COMMERCIAL DIRECTOR Ot R00.2 PALPITATIONS 07/17/2017 BAIMA, VINCE L COMMERCIAL DIRECTOR Ot R06.09 OTHER FORMS OF DYSPNEA 07/17/2017 BAIMA, VINCE L COMMERCIAL DIRECTOR Ot R07.9 CHEST PAIN, UNSPECIFIED 07/17/2017 BAIMA, VINCE L COMMERCIAL DIRECTOR Ot E78.2 MIXED HYPERLIPIDEMIA 07/17/2017 BAIMA, VINCE L COMMERCIAL DIRECTOR Ot I10 ESSENTIAL (PRIMARY) HYPERTENSION 07/17/2017 BAIMA, VINCE L COMMERCIAL DIRECTOR Ot I73.9 PERIPHERAL VASCULAR DISEASE, UNSPECIFIED 07/17/2017 BAIMA, VINCE L COMMERCIAL DIRECTOR Ot R00.2 PALPITATIONS 07/17/2017 BAIMA, VINCE L COMMERCIAL DIRECTOR Ot R06.09 OTHER FORMS OF DYSPNEA 07/17/2017 BAIMA, VINCE L COMMERCIAL DIRECTOR Ot R07.9 CHEST PAIN, UNSPECIFIED 07/17/2017 TON LERMA COMMERCIAL DIRECTOR Ot R60.9 EDEMA, UNSPECIFIED 07/17/2017 TON LERMA COMMERCIAL DIRECTOR Ot K52.9 NONINFECTIVE GASTROENTERITIS AND COLITIS 07/17/2017 MARIA GUADALUPE, TON COMMERCIAL DIRECTOR Ot R60.9 EDEMA, UNSPECIFIED 07/17/2017 BAIMA, VINCE L COMMERCIAL DIRECTOR Ot E78.2 MIXED HYPERLIPIDEMIA 07/17/2017 BAIMA, VINCE L COMMERCIAL DIRECTOR Ot I10 ESSENTIAL (PRIMARY) HYPERTENSION 07/17/2017 BAIMA, VINCE L COMMERCIAL DIRECTOR Ot I73.9 PERIPHERAL VASCULAR DISEASE, UNSPECIFIED 07/17/2017 BAIMA, VINCE L COMMERCIAL DIRECTOR Ot R00.2 PALPITATIONS 07/17/2017 BAIMA, VINCE L COMMERCIAL DIRECTOR Ot R06.09 OTHER FORMS OF DYSPNEA 07/17/2017 BAIMA, VINCE L COMMERCIAL DIRECTOR Ot R07.9 CHEST PAIN, UNSPECIFIED 07/17/2017 BAIMA, VINCE L COMMERCIAL DIRECTOR Ot E78.2 MIXED HYPERLIPIDEMIA 07/17/2017 BAIMA, VINCE L COMMERCIAL DIRECTOR Ot I10 ESSENTIAL (PRIMARY) HYPERTENSION 07/17/2017 BAIMA, VINCE L COMMERCIAL DIRECTOR Ot I73.9 PERIPHERAL VASCULAR DISEASE, UNSPECIFIED 07/17/2017 BAIMA, VINCE L COMMERCIAL DIRECTOR Ot R00.2 PALPITATIONS 07/17/2017 BAIMA, VINCE L COMMERCIAL DIRECTOR Ot R06.09 OTHER FORMS OF DYSPNEA 07/17/2017 BAIMA, VINCE L COMMERCIAL DIRECTOR Ot R07.9 CHEST PAIN, UNSPECIFIED 07/17/2017 BAIMA, VINCE L COMMERCIAL DIRECTOR Ot E78.2 MIXED HYPERLIPIDEMIA 07/17/2017 BAIMA, VINCE L COMMERCIAL DIRECTOR Ot I10 ESSENTIAL (PRIMARY) HYPERTENSION 07/17/2017 BAIMA, VINCE L COMMERCIAL DIRECTOR Ot I73.9 PERIPHERAL VASCULAR DISEASE, UNSPECIFIED 07/17/2017 BAIMA, VINCE L COMMERCIAL DIRECTOR Ot R00.2 PALPITATIONS 07/17/2017 BAIMA, VINCE L COMMERCIAL DIRECTOR Ot R06.09 OTHER FORMS OF DYSPNEA 07/17/2017 BAIMA, VINCE L COMMERCIAL DIRECTOR Ot R07.9 CHEST PAIN, UNSPECIFIED 09/30/2017 KATELYN SHAH, PRIETO Alfredo Ot Z01.818 ENCOUNTER FOR OTHER PREPROCEDURAL EXAMIN 09/30/2017 KATELYN SHAH, PRIETO Alfredo Ot Z01.818 ENCOUNTER FOR OTHER PREPROCEDURAL EXAMIN 09/30/2017 Ot R07.89 OTHER CHEST PAIN 09/30/2017 TON LERMA COMMERCIAL DIRECTOR Ot R10.30 LOWER ABDOMINAL PAIN, UNSPECIFIED 09/30/2017 BRITNEY LERMAA COMMERCIAL DIRECTOR Ot R60.9 EDEMA, UNSPECIFIED 09/30/2017 BAIMA, VINCE L COMMERCIAL DIRECTOR Ot E78.2 MIXED HYPERLIPIDEMIA 09/30/2017 BAIMA, VINCE L COMMERCIAL DIRECTOR Ot I10 ESSENTIAL (PRIMARY) HYPERTENSION 09/30/2017 BAIMA, VINCE L COMMERCIAL DIRECTOR Ot I73.9 PERIPHERAL VASCULAR DISEASE, UNSPECIFIED 09/30/2017 BAIMA, VINCE L COMMERCIAL DIRECTOR Ot R00.2 PALPITATIONS 09/30/2017 BAIMA, VINCE L COMMERCIAL DIRECTOR Ot R06.09 OTHER FORMS OF DYSPNEA 09/30/2017 BAIMA, VINCE L COMMERCIAL DIRECTOR Ot R07.9 CHEST PAIN, UNSPECIFIED 09/30/2017 BAIMA, VINCE L COMMERCIAL DIRECTOR Ot E78.2 MIXED HYPERLIPIDEMIA 09/30/2017 BAIMA, VINCE L COMMERCIAL DIRECTOR Ot I10 ESSENTIAL (PRIMARY) HYPERTENSION 09/30/2017 BAIMA, VINCE L COMMERCIAL DIRECTOR Ot I73.9 PERIPHERAL VASCULAR DISEASE, UNSPECIFIED 09/30/2017 BAIMA, VINCE L COMMERCIAL DIRECTOR Ot R00.2 PALPITATIONS 09/30/2017 BAIMA, VINCE L COMMERCIAL DIRECTOR Ot R06.09 OTHER FORMS OF DYSPNEA 09/30/2017 BAIMA, VINCE L COMMERCIAL DIRECTOR Ot R07.9 CHEST PAIN, UNSPECIFIED 09/30/2017 BAIMA, VINCE L COMMERCIAL DIRECTOR Ot E78.2 MIXED HYPERLIPIDEMIA 09/30/2017 BAIMA, VINCE L COMMERCIAL DIRECTOR Ot I10 ESSENTIAL (PRIMARY) HYPERTENSION 09/30/2017 BAIMA, VINCE L COMMERCIAL DIRECTOR Ot I73.9 PERIPHERAL VASCULAR DISEASE, UNSPECIFIED 09/30/2017 BAIMA, VINCE L COMMERCIAL DIRECTOR Ot R00.2 PALPITATIONS 09/30/2017 BAIMA, VINCE L COMMERCIAL DIRECTOR Ot R06.09 OTHER FORMS OF DYSPNEA 09/30/2017 BAIMA, VINCE L COMMERCIAL DIRECTOR Ot R07.9 CHEST PAIN, UNSPECIFIED 09/30/2017 KATELYN SHAH, PRIETO Alfredo Ot Z01.818 ENCOUNTER FOR OTHER PREPROCEDURAL EXAMIN 09/30/2017 PRIETO ZEPEDA MD Ot Z01.818 ENCOUNTER FOR OTHER PREPROCEDURAL EXAMIN 09/30/2017 Ot R07.89 OTHER CHEST PAIN 09/30/2017 TON LERMA COMMERCIAL DIRECTOR Ot R10.30 LOWER ABDOMINAL PAIN, UNSPECIFIED 09/30/2017 TON LERMA COMMERCIAL DIRECTOR Ot R60.9 EDEMA, UNSPECIFIED 09/30/2017 BAIMA, VINCE L COMMERCIAL DIRECTOR Ot E78.2 MIXED HYPERLIPIDEMIA 09/30/2017 BAIMA, VINCE L COMMERCIAL DIRECTOR Ot I10 ESSENTIAL (PRIMARY) HYPERTENSION 09/30/2017 BAIMA, VINCE L COMMERCIAL DIRECTOR Ot I73.9 PERIPHERAL VASCULAR DISEASE, UNSPECIFIED 09/30/2017 BAIMA, VINCE L COMMERCIAL DIRECTOR Ot R00.2 PALPITATIONS 09/30/2017 BAIMA, VINCE L COMMERCIAL DIRECTOR Ot R06.09 OTHER FORMS OF DYSPNEA 09/30/2017 BAIMA, VINCE L COMMERCIAL DIRECTOR Ot R07.9 CHEST PAIN, UNSPECIFIED 09/30/2017 BAIMA, VINCE L COMMERCIAL DIRECTOR Ot E78.2 MIXED HYPERLIPIDEMIA 09/30/2017 BAIMA, VINCE L COMMERCIAL DIRECTOR Ot I10 ESSENTIAL (PRIMARY) HYPERTENSION 09/30/2017 BAIMA, VINCE L COMMERCIAL DIRECTOR Ot I73.9 PERIPHERAL VASCULAR DISEASE, UNSPECIFIED 09/30/2017 BAIMA, VINCE L COMMERCIAL DIRECTOR Ot R00.2 PALPITATIONS 09/30/2017 BAIMA, VINCE L COMMERCIAL DIRECTOR Ot R06.09 OTHER FORMS OF DYSPNEA 09/30/2017 BAIMA, VINCE L COMMERCIAL DIRECTOR Ot R07.9 CHEST PAIN, UNSPECIFIED 09/30/2017 BAIMA, VINCE L COMMERCIAL DIRECTOR Ot E78.2 MIXED HYPERLIPIDEMIA 09/30/2017 BAIMA, VINCE L COMMERCIAL DIRECTOR Ot I10 ESSENTIAL (PRIMARY) HYPERTENSION 09/30/2017 BAIMA, VINCE L COMMERCIAL DIRECTOR Ot I73.9 PERIPHERAL VASCULAR DISEASE, UNSPECIFIED 09/30/2017 BAIMA, VINCE L COMMERCIAL DIRECTOR Ot R00.2 PALPITATIONS 09/30/2017 BAIMA, VINCE L COMMERCIAL DIRECTOR Ot R06.09 OTHER FORMS OF DYSPNEA 09/30/2017 BAIMA, VINCE L COMMERCIAL DIRECTOR Ot R07.9 CHEST PAIN, UNSPECIFIED 10/01/2017 ROSAS [...] 10/01/2017 ALISON OTTO TIMOTHY Ot Z79.899 OTHER PENITENTIARY (CURRENT) DRUG THERAPY 10/01/2017 ALISON OTTO TIMOTHY Ot Z87.891 PERSONAL HISTORY OF NICOTINE DEPENDENCE 11/03/2017 ELOY ZAIDI R MANAGER AMBULATORY Ot K76.0 FATTY (CHANGE OF) LIVER, NOT ELSEWHERE C 11/03/2017 ELOY ZAIDI R MANAGER AMBULATORY Ot Z90.49 ACQUIRED ABSENCE OF OTHER SPECIFIED PART 11/08/2017 ELOY ZAIDI R MANAGER AMBULATORY Ot K76.0 FATTY (CHANGE OF) LIVER, NOT ELSEWHERE C 11/08/2017 ELOY ZAIDI R MANAGER AMBULATORY Ot Z90.49 ACQUIRED ABSENCE OF OTHER SPECIFIED PART 11/17/2017 RADHA ZAIDIELE R MANAGER AMBULATORY Ot K76.0 FATTY (CHANGE OF) LIVER, NOT ELSEWHERE C 11/17/2017 ZAIDIRADHA DiazELE R MANAGER AMBULATORY Ot Z90.49 ACQUIRED ABSENCE OF OTHER SPECIFIED PART 11/17/2017 ELOY ZAIDI R MANAGER AMBULATORY Ot K76.0 FATTY (CHANGE OF) LIVER, NOT ELSEWHERE C 11/17/2017 ELOY ZAIDI R MANAGER AMBULATORY Ot Z90.49 ACQUIRED ABSENCE OF OTHER SPECIFIED PART 11/18/2017 ELOY ZAIDI R MANAGER AMBULATORY Ot N28.89 OTHER SPECIFIED DISORDERS OF KIDNEY AND 11/18/2017 ELOY ZAIDI R MANAGER AMBULATORY Ot K76.0 FATTY (CHANGE OF) LIVER, NOT ELSEWHERE C 11/18/2017 RADHA ZAIDIELE R MANAGER AMBULATORY Ot Z90.49 ACQUIRED ABSENCE OF OTHER SPECIFIED [...] GIDDINESS 11/19/2017 KATHERIN RAY MD, Ot Z79.51 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 (CURRENT) USE OF INHALED STERO 11/19/2017 KATHERIN RAY MD Ot 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 11/19/2017 KATHERIN [...] GIDDINESS 11/23/2017 KATHERIN RAY MD Ot Z79.51 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 ACCOUNTANT (CURRENT) USE OF INHALED STERO 11/23/2017 KATHERIN RAY MD Ot 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 11/23/2017 KATHERIN [...] OTHER CHEST PAIN 01/26/2018 MARIA GUADALUPE, TON COMMERCIAL DIRECTOR Ot R10.30 LOWER ABDOMINAL PAIN, UNSPECIFIED 01/26/2018 MARIA GUADALUPE, TON COMMERCIAL DIRECTOR Ot R60.9 EDEMA, UNSPECIFIED 01/26/2018 BAIMA, VINCE L COMMERCIAL DIRECTOR Ot E78.2 MIXED HYPERLIPIDEMIA 01/26/2018 BAIMA, VINCE L COMMERCIAL DIRECTOR Ot I10 ESSENTIAL (PRIMARY) HYPERTENSION 01/26/2018 BAIMA, VINCE L COMMERCIAL DIRECTOR Ot I73.9 PERIPHERAL VASCULAR DISEASE, UNSPECIFIED 01/26/2018 BAIMA, VINCE L COMMERCIAL DIRECTOR Ot R00.2 PALPITATIONS 01/26/2018 BAIMA, VINCE L COMMERCIAL DIRECTOR Ot R06.09 OTHER FORMS OF DYSPNEA 01/26/2018 BAIMA, VINCE L COMMERCIAL DIRECTOR Ot R07.9 CHEST PAIN, UNSPECIFIED 01/26/2018 BAIMA, VINCE L COMMERCIAL DIRECTOR Ot E78.2 MIXED HYPERLIPIDEMIA 01/26/2018 BAIMA, VINCE L COMMERCIAL DIRECTOR Ot I10 ESSENTIAL (PRIMARY) HYPERTENSION 01/26/2018 BAIMA, VINCE L COMMERCIAL DIRECTOR Ot I73.9 PERIPHERAL VASCULAR DISEASE, UNSPECIFIED 01/26/2018 BAIMA, VINCE L COMMERCIAL DIRECTOR Ot R00.2 PALPITATIONS 01/26/2018 BAIMA, VINCE L COMMERCIAL DIRECTOR Ot R06.09 OTHER FORMS OF DYSPNEA 01/26/2018 BAIMA, VINCE L COMMERCIAL DIRECTOR Ot R07.9 CHEST PAIN, UNSPECIFIED 01/26/2018 BAIMA, VINCE L COMMERCIAL DIRECTOR Ot E78.2 MIXED HYPERLIPIDEMIA 01/26/2018 BAIMA, VINCE L COMMERCIAL DIRECTOR Ot I10 ESSENTIAL (PRIMARY) HYPERTENSION 01/26/2018 BAIMA, VINCE L COMMERCIAL DIRECTOR Ot I73.9 PERIPHERAL VASCULAR DISEASE, UNSPECIFIED 01/26/2018 BAIMA, VINCE L COMMERCIAL DIRECTOR Ot R00.2 PALPITATIONS 01/26/2018 BAIMA, VINCE L COMMERCIAL DIRECTOR Ot R06.09 OTHER FORMS OF DYSPNEA 01/26/2018 VINCE MONTAÑO COMMERCIAL DIRECTOR Ot R07.9 CHEST PAIN, UNSPECIFIED 01/26/2018 ELOY ZAIDI MANAGER AMBULATORY Ot K76.0 FATTY (CHANGE OF) LIVER, NOT ELSEWHERE C 01/26/2018 ZAIDIELOY Diaz Lisandra CHAUDHARIN Ot Z90.49 ACQUIRED ABSENCE OF OTHER SPECIFIED PART 01/26/2018 ELOY ZAIDI Lisandra CHAUDHARIN Ot N28.89 OTHER SPECIFIED DISORDERS OF KIDNEY AND 02/09/2018 ZAIDIELOY Diaz Lisandra VAUGHN Ot R10.2 PELVIC AND PERINEAL PAIN 03/24/2018 SHANKAR CREWS MD Ot E78.00 PURE HYPERCHOLESTEROLEMIA, UNSPECIFIED 03/24/2018 SHANKAR CREWS MD Ot F12.10 CANNABIS ABUSE, UNCOMPLICATED 03/24/2018 SHANKAR CREWS MD Ot F14.10 COCAINE ABUSE, UNCOMPLICATED 03/24/2018 SHANKAR CREWS MD Ot F15.10 OTHER STIMULANT ABUSE, UNCOMPLICATED 03/24/2018 SHANKAR CREWS MD Ot H30.93 UNSPECIFIED CHORIORETINAL INFLAMMATION, 03/24/2018 SHANKAR CREWS MD Ot H57.9 UNSPECIFIED DISORDER OF EYE AND ADNEXA 03/24/2018 SHANKAR CREWS MD Ot I12.9 HYPERTENSIVE CHRONIC KIDNEY DISEASE W ST 03/24/2018 SHANKAR CREWS MD, Ot J44.9 CHRONIC OBSTRUCTIVE PULMONARY DISEASE, U 03/24/2018 SHANKAR CREWS MD Ot N18.4 CHRONIC KIDNEY DISEASE, STAGE 4 (SEVERE) 03/24/2018 SHANKAR CREWS MD Ot Z79.51 PENITENTIARY (CURRENT) USE OF INHALED STERO 03/24/2018 SHANKAR CREWS MD Ot 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 03/24/2018 SHANKAR CREWS MD Ot Z87.19 PERSONAL HISTORY OF OTHER DISEASES OF TH 03/24/2018 SHANKAR CREWS MD, Ot Z87.891 PERSONAL HISTORY OF NICOTINE DEPENDENCE 03/24/2018 SHANKAR CREWS MD Ot Z88.4 ALLERGY STATUS TO ANESTHETIC AGENT STATU 03/24/2018 SHANKAR CREWS MD Ot Z90.49 ACQUIRED ABSENCE OF OTHER SPECIFIED PART 03/24/2018 SHANKAR CREWS MD, Ot Z91.040 LATEX ALLERGY STATUS 03/24/2018 SHANKAR CREWS MD, Ot Z91.048 OTHER NONMEDICINAL SUBSTANCE ALLERGY STA 03/24/2018 SHANKAR CREWS MD, Ot Z98.51 TUBAL LIGATION STATUS 03/26/2018 SHANKAR CREWS MD Ot E78.00 PURE HYPERCHOLESTEROLEMIA, UNSPECIFIED 03/26/2018 SHANKAR CREWS MD Ot F12.10 CANNABIS ABUSE, UNCOMPLICATED 03/26/2018 SHANKAR CREWS MD, Ot F14.10 COCAINE ABUSE, UNCOMPLICATED 03/26/2018 SHANKAR CREWS MD Ot F15.10 OTHER STIMULANT ABUSE, UNCOMPLICATED 03/26/2018 SHANKAR CREWS MD Ot H30.93 UNSPECIFIED CHORIORETINAL INFLAMMATION, 03/26/2018 SHANKAR CREWS MD, Ot H57.9 UNSPECIFIED DISORDER OF EYE AND ADNEXA 03/26/2018 SHANKAR CREWS MD Ot I10 ESSENTIAL (PRIMARY) HYPERTENSION 03/26/2018 SHANKAR CREWS MD, Ot J44.9 CHRONIC OBSTRUCTIVE PULMONARY DISEASE, U 03/26/2018 SHANKAR CREWS MD, Ot N18.4 CHRONIC KIDNEY DISEASE, STAGE 4 (SEVERE) 03/26/2018 SHANKAR CREWS MD, Ot Z79.51 PENITENTIARY (CURRENT) USE OF INHALED STERO 03/26/2018 SHANKAR CREWS MD Ot 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 03/26/2018 SHANKAR CREWS MD Ot Z87.19 PERSONAL HISTORY OF OTHER DISEASES OF TH 03/26/2018 SHANKAR CREWS MD Ot Z87.891 PERSONAL HISTORY OF NICOTINE DEPENDENCE 03/26/2018 SHANKAR CREWS MD Ot Z88.4 ALLERGY STATUS TO ANESTHETIC AGENT STATU 03/26/2018 SHANKAR CREWS MD Ot Z90.49 ACQUIRED ABSENCE OF OTHER SPECIFIED PART 03/26/2018 SHANKAR CREWS MD, Ot Z91.040 LATEX ALLERGY STATUS 03/26/2018 SHANKAR CREWS MD, Ot Z91.048 OTHER NONMEDICINAL SUBSTANCE ALLERGY STA 03/26/2018 SHANKAR CREWS MD, Ot Z98.51 TUBAL LIGATION STATUS 03/26/2018 SHANKAR CREWS MD Ot E78.00 PURE HYPERCHOLESTEROLEMIA, UNSPECIFIED 03/26/2018 SHANKAR CREWS MD Ot F12.10 CANNABIS ABUSE, UNCOMPLICATED 03/26/2018 SHANKAR CREWS MD Ot F14.10 COCAINE ABUSE, UNCOMPLICATED 03/26/2018 SHANKAR CREWS MD, Ot F15.10 OTHER STIMULANT ABUSE, UNCOMPLICATED 03/26/2018 SHANKAR CREWS MD Ot H30.93 UNSPECIFIED CHORIORETINAL INFLAMMATION, 03/26/2018 SHANKAR CREWS MD, Ot H57.9 UNSPECIFIED DISORDER OF EYE AND ADNEXA 03/26/2018 SHANKAR CREWS MD, Ot I12.9 HYPERTENSIVE CHRONIC KIDNEY DISEASE W ST 03/26/2018 SHANKAR CREWS MD, Ot J44.9 CHRONIC OBSTRUCTIVE PULMONARY DISEASE, U 03/26/2018 SHANKAR CREWS MD, Ot N18.4 CHRONIC KIDNEY DISEASE, STAGE 4 (SEVERE) 03/26/2018 SHANKAR CREWS MD Ot Z79.51 PENITENTIARY (CURRENT) USE OF INHALED STERO 03/26/2018 SHANKAR CREWS MD, Ot Z79.52 PENITENTIARY (CURRENT) USE OF SYSTEMIC STER 03/26/2018 SHANKAR CREWS MD, Ot Z87.19 PERSONAL HISTORY OF OTHER DISEASES OF TH 03/26/2018 SHANKAR CREWS MD Ot Z87.891 PERSONAL HISTORY OF NICOTINE DEPENDENCE 03/26/2018 SHANKAR CREWS MD Ot Z88.4 ALLERGY STATUS TO ANESTHETIC AGENT STATU 03/26/2018 SHANKAR CREWS MD Ot Z90.49 ACQUIRED ABSENCE OF OTHER SPECIFIED PART 03/26/2018 SHANKAR CREWS MD Ot Z91.040 LATEX ALLERGY STATUS 03/26/2018 SHANKAR CREWS MD Ot Z91.048 OTHER NONMEDICINAL SUBSTANCE ALLERGY STA 03/26/2018 SHANKAR CREWS MD, Ot Z98.51 TUBAL LIGATION STATUS 04/07/2018 OTHER, UNLISTED Ot D86.9 SARCOIDOSIS, UNSPECIFIED 04/07/2018 OTHER, UNLISTED Ot H20.9 UNSPECIFIED IRIDOCYCLITIS Procedures Code Description [place] [address] HEMOCCULT 04/12/2012 56947 PAP SMEAR 04/14/2012 OtolarynCaitlyn Diggs 04/17/2012 Q0091 PAP SMEAR OBTAIN SMEAR 04/19/2012 44692 ROUTINE VENIPUNCTURE 07/01/2012 25669 ESR/SED RATE 07/01/2012 18907 CBC 07/01/2012 69195 CRP 07/01/2012 27359 URIC ACID 07/01/2012 97993 CMP 07/01/2012 0711408 GFR CALC (RESULT ONLY) 07/01/2012 35097 TSH 07/01/2012 88401 ASO 07/02/2012 26299 RA FACTOR 07/02/2012 ANAANA IVETH ANALYZER (SCREEN) 07/02/2012 53043 HEPATITIS PROFILE 07/02/2012 21979 ROUTINE VENIPUNCTURE 08/04/2012 03393 CMP 08/04/2012 43900 BNP 08/04/2012 72550 EKG, TRACING (IN-HOUSE) 08/18/2012 92494 H PYLORI (IN-HOUSE) 11/03/2012 42988 EGD 11/03/2012 33647 US AORTIC (DOPPLER) 11/03/2012 18864 ROUTINE VENIPUNCTURE 12/09/2012 91418 CBC 12/09/2012 13804 CMP 12/09/2012 5877964 GFR CALC (RESULT ONLY) 12/09/2012 20775 XRAY CHEST 2 VIEW 12/12/2012 52028 ROUTINE VENIPUNCTURE 02/22/2013 40054 CBC 02/22/2013 4620807 GFR CALC (RESULT ONLY) 02/22/2013 51451 CMP 02/22/2013 75897 PROLACTIN 02/22/2013 73531 TSH 02/22/2013 62440 ESTROGEN 02/27/2013 40617 MAMMOGRAM DX, MARK 03/09/2013 58586 ROUTINE VENIPUNCTURE 05/23/2013 88245 XRAY KNEE LEFT 3 VIEWS 05/23/2013 66785 XRAY FEET, MARK 05/23/2013 1289052 GFR CALC (RESULT ONLY) 05/24/2013 86300 CMP 05/24/2013 53018 CBC 05/24/2013 64879 ROUTINE VENIPUNCTURE 11/09/2013 94248 CBC 11/09/2013 6200212 GFR CALC (RESULT ONLY) 11/09/2013 84538 CMP 11/09/2013 32248 ROUTINE VENIPUNCTURE 12/12/2013 90388 LIVER PANEL (LFT) 12/12/2013 68223 UA W/ CULTURE IF INDICATED 12/29/2013 27429 CULTURE URINE 12/31/2013 63761 ROUTINE VENIPUNCTURE 02/06/2014 16002 CBC 02/06/2014 6365697 GFR CALC (RESULT ONLY) 02/06/2014 73355 CMP 02/06/2014 36812 LIVER PANEL (LFT) 02/06/2014 52486 URIC ACID 02/06/2014 50935 CRP 02/06/2014 06247 HEPATITIS PROFILE 02/06/2014 60743 XRAY KNEE RIGHT 3 VIEWS 02/07/2014 62311 RA FACTOR 02/07/2014 84788 ASO 02/07/2014 ANAANA IVETH ANALYZER (SCREEN) 02/07/2014 87467 MRI EXTREMITY, LOWER RIGHT, W/O CONTRAST 03/01/2014 14021 PSYCH DIAGNOSTIC EVALUATION 03/15/2014 07753 JOINT INJECTION- LARGE JOINT (SPECIFY MEDCIN DESCRIPTION) 04/06/2014 J1040 DEPO MEDROL 80 MG INJ 04/06/2014 64319 PSYTX PT&/FAMILY 45 MINUTES 04/19/2014 ORTHOPEDI CAITLYN FRANCIS 06/08/2014 67896 AMERITOX 08/14/2014 59621 UA LONG DIP 08/14/2014 Results Test Result [...] 09/30/17 17:33 Bacterial urine culture SEE COMMEN NRG COLONY COUNT . NRG Complete blood count [...] in platelet poor plasma bycoagulation assay - 09/30/17 17:35 Activated partial thromboplastin time (aPTT) in [...] ANALYZER - 10/09/17 16:30 TSH 0.64 mIU/L NR PDM - 09 PANEL (PROFILE 1) - [...] 7-25 CREATININE 3.03 mg/dL 0.50-1.05 eGFR NON-AFR. BULGARIAN 17 mL/min/1.73m2 > OR=60 eGFR 20 mL/min/1.73m2 [...] 11/26/17 17:26 VITAMIN D,25-OH,TOTAL,IA 31 ng/mL 30-100 Complete blood count (CBC) with automated white blood cell (WBC) differential - 03/24/18 15:41 Blood leukocytes automated count (number/volume) 7.6 10*3/uL 4.3-11.0 Blood erythrocytes automated count (number/volume) 4.13 10*6/uL 4.35-5.85 Venous blood hemoglobin measurement (mass/volume) 11.9 g/dL 11.5-16.0 Blood hematocrit (volume fraction) 38 % 35-52 Automated erythrocyte mean corpuscular volume 92 [foz_us] 80-99 Automated erythrocyte mean corpuscular hemoglobin (mass per erythrocyte) 29 pg 25-34 Automated erythrocyte mean corpuscular hemoglobin concentration measurement ( mass/volume) 31 g/dL 32-36 Automated erythrocyte distribution width ratio 12.7 % 10.0-14.5 Automated blood platelet count (count/volume) 297 10*3/uL 130-400 Automated blood platelet mean volume measurement 9.5 [foz_us] 7.4-10.4 Automated blood neutrophils/100 leukocytes 54 % 42-75 Automated blood lymphocytes/100 leukocytes 34 % 12-44 Blood monocytes/100 leukocytes 8 % 0-12 Automated blood eosinophils/100 leukocytes 3 % 0-10 Automated blood basophils/100 leukocytes 0 % 0-10 Blood neutrophils automated count (number/volume) 4.1 10*3 1.8-7.8 Blood lymphocytes automated count (number/volume) 2.6 10*3 1.0-4.0 Blood monocytes automated count (number/volume) 0.6 10*3 0.0-1.0 Automated eosinophil count 0.3 10*3/uL 0.0-0.3 Automated blood basophil count (count/volume) 0.0 10*3/uL 0.0-0.1 Comprehensive metabolic panel - 03/24/18 15:41 Serum or plasma sodium measurement (moles/volume) 139 mmol/L 135-145 Serum or plasma potassium measurement (moles/volume) 4.5 mmol/L 3.6-5.0 Serum or plasma chloride measurement (moles/volume) 104 mmol/L 98-107 Carbon dioxide 25 mmol/L 21-32 Serum or plasma anion gap determination (moles/volume) 10 mmol/L 5-14 Serum or plasma urea nitrogen measurement (mass/volume) 20 mg/dL 7-18 Serum or plasma creatinine measurement (mass/volume) 2.01 mg/dL 0.60-1.30 Serum or plasma urea nitrogen/creatinine mass ratio 10 NRG Serum or plasma creatinine measurement with calculation of estimated glomerular filtration rate 26 NRG Serum or plasma glucose measurement (mass/volume) 95 mg/dL 70-105 Serum or plasma calcium measurement (mass/volume) 9.6 mg/dL 8.5-10.1 Serum or plasma total bilirubin measurement (mass/volume) 0.4 mg/dL 0.1-1.0 Serum or plasma alkaline phosphatase measurement (enzymatic activity/volume) 157 U/L 40-136 Serum or plasma aspartate aminotransferase measurement (enzymatic activity/ volume) 119 U/L 5-34 Serum or plasma alanine aminotransferase measurement (enzymatic activity/volume ) 124 U/L 0-55 Serum or plasma protein measurement (mass/volume) 7.4 g/dL 6.4-8.2 Serum or plasma albumin measurement (mass/volume) 4.0 g/dL 3.2-4.5 CALCIUM CORRECTED 9.6 mg/dL 8.5-10.1 Serum or plasma C reactive protein measurement (mass/volume) - 03/24/18 15:41 Serum or plasma C reactive protein measurement (mass/volume) 1.10 mg /dL 0.00-0.50 Erythrocyte sedimentation rate by westergren method - 03/24/18 15:41 Erythrocyte sedimentation rate by westergren method 65 mm 0-30 Serum or plasma rheumatoid factor measurement (units/volume) - 04/06/18 15:12 Serum or plasma rheumatoid factor measurement (units/volume) NEGATIVE NEGATIVE [id number] - 04/06/18 15:12 Screening antinuclear antibody (IVETH) assay by enzyme immunoassay <1: 80 <1:80 Serum Borrelia species antibody assay (units/volume) - 04/06/18 15:12 LYME AB G M 0.32 % 0.00-0.89 Interpretation of Lyme disease antibody assay Negative Negative Serum ragweed IgE antibody assay - 04/06/18 15:12 [id number] Negative Negative Serum Toxoplasma gondii IgM antibody assay (units/volume) < AU 0.0-7.9 Serum ragweed IgE antibody assay <3.0 0.0-7.1 Serum angiotensin converting enzyme (ZA) measurement - 04/06/18 15:12 Serum angiotensin converting enzyme (ZA) measurement 24 U/L 9-67 Serum reagin antibody assay (units/volume) by RPR - 04/06/18 15:12 Serum reagin antibody assay (units/volume) by RPR Non Reactive NRG Encounters ACCT No. Visit Date/Time Discharge Status Pt. Type Provider Facility Loc./Unit Complaint [id number] 07/27/2014 13:03:00 07/27/2014 23:59:59 CLS Outpatient JEWELS RAMOS APRN [id number] 07/27/2014 13:03:00 07/27/2014 23:59:59 CLS Outpatient JEWELS RAMOS APRN [id number] 06/13/2014 10:49:00 06/13/2014 23:59:59 CLS Outpatient JEWELS RAMOS APRN [id number] 06/08/2014 13:03:00 06/08/2014 23:59:59 CLS Outpatient SYMONE POST APRN [id number] 04/19/2014 10:10:00 04/19/2014 23:59:59 CLS Outpatient VELASQUEZ KAUR PSYD [id number] 04/06/2014 13:24:00 04/06/2014 23:59:59 CLS Outpatient JEWELS ROMANO DO [id number] 03/15/2014 10:35:00 03/15/2014 23:59:59 CLS Outpatient VELASQUEZ KAUR PSYD [id number] 02/23/2014 16:27:00 02/23/2014 23:59:59 CLS Outpatient MARIA GUADALUPE MANAGER AMBULATORYTON S [id number] 02/06/2014 10:51:00 02/06/2014 23:59:59 CLS Outpatient MARIA GUADALUPE MANAGER AMBULATORYBRITNEYA S [id number] 02/02/2014 17:18:00 02/02/2014 23:59:59 CLS Outpatient MARIA GUADALUPE MANAGER AMBULATORYQUINTENTON S [id number] 12/29/2013 13:28:00 12/29/2013 23:59:59 CLS Outpatient MARIA GUADALUPE MANAGER AMBULATORYQUINTENTON S [id number] 12/14/2013 17:38:00 12/14/2013 23:59:59 CLS Outpatient CATHERINE PERALES APRN [id number] 12/12/2013 11:56:00 12/12/2013 23:59:59 CLS Outpatient MARIA GUADALUPE MANAGER AMBULATORYQUINTENTON S [id number] 11/09/2013 14:10:00 11/09/2013 23:59:59 CLS Outpatient MARIA GUADALUPE MANAGER AMBULATORYQUINTENTON S [id number] 10/06/2013 15:40:00 10/06/2013 23:59:59 CLS Outpatient MARIA GUADALUPE MANAGER AMBULATORYBRITNEYA S [id number] 05/23/2013 15:36:00 05/23/2013 23:59:59 CLS Outpatient MARIA GUADALUPE MANAGER AMBULATORYQUINTENTON S [id number] 03/29/2013 08:09:00 03/29/2013 23:59:59 CLS Outpatient MARIA GUADALUPE MANAGER AMBULATORYQUINTENTON S [id number] 03/08/2013 17:05:00 03/08/2013 23:59:59 CLS Outpatient ISAIAS VALENZUELA MD [id number] 02/22/2013 08:48:00 02/22/2013 23:59:59 CLS Outpatient MARIA GUADALUPE MANAGER AMBULATORYQUINTENTON S [id number] 11/11/2012 00:00:00 11/11/2012 23:59:59 CLS Outpatient MARIA GUADALUPE MANAGER AMBULATORYQUINTENTON S [id number] 08/04/2012 13:50:00 08/04/2012 23:59:59 CLS Outpatient TAE VAUGHN MARJORIE Alfredo [id number] 07/19/2012 11:32:00 07/19/2012 23:59:59 CLS Outpatient MARIA GUADALUPE MANAGER AMBULATORYBRITNEYA S [id number] 07/12/2012 11:30:00 07/12/2012 23:59:59 CLS Outpatient [id number] 07/01/2012 13:52:00 07/01/2012 23:59:59 CLS Outpatient [id number] 04/17/2012 10:45:00 04/17/2012 23:59:59 CLS Outpatient JEWELS ROMANO DO [id number] 12/09/2012 12:12:00 Document Registration [id number] 11/03/2012 14:53:00 Document Registration [id number] 08/18/2012 15:12:00 Document Registration [id number] 11/26/2017 16:00:00 11/26/2017 23:59:59 CLS Outpatient ELOY ZAIDIJessi [facility] [id number] 11/26/2017 16:00:00 Document Registration [id number] 10/23/2017 15:40:00 Document Registration [id number] 10/09/2017 15:00:00 Document Registration [id number] 05/02/2017 15:25:00 Document Registration [id number] 04/06/2018 14:56:00 04/06/2018 23:59:59 CLS Outpatient OTHER, UNLISTED [facility] RAD D86.0,H20.00 [id number] 03/24/2018 15:27:00 03/24/2018 17:54:00 DIS Emergency MARS SHAH, SHANKAR Waldrop [facility] ER EYE PROBLEMS [id number] 02/08/2018 13:03:00 02/08/2018 23:59:59 CLS Outpatient ELOY ZAIDI APRN [facility] RAD PELVIC PAIN [id number] 11/19/2017 14:50:00 11/19/2017 19:32:00 DIS Emergency CORY SHAH, KATHERIN Walker [facility] ER LOW BLOOD PRESSURE [id number] 11/17/2017 09:13:00 11/17/2017 23:59:59 CLS Outpatient ELOY ZAIDI APRN [facility] RAD ELEVATED SERUM CREATININE [id number] 11/02/2017 06:50:00 11/02/2017 23:59:59 CLS Outpatient ELOY ZAIDI APRN [facility] RAD ELEVATED LIVER ENZYMES [id number] 09/30/2017 19:20:00 10/01/2017 12:00:00 DIS Inpatient TIMOTHY ROSAS DO [facility] ICU HYPOMAGNESMIA, HYPOCALCEMIA, LOW TSH,RENAL INSUFF [id number] 02/10/2017 07:30:00 02/10/2017 23:59:59 CLS Outpatient BAIMADENNYVINCE L COMMERCIAL DIRECTOR [facility] CARD R07.9 [id number] 01/23/2017 14:54:00 01/23/2017 14:54:00 CAN Preadmit OTHER, UNLISTED [facility] LAB D803 [id number] 01/23/2017 14:45:00 01/23/2017 14:45:00 CAN Preadmit GAMALIELJULIANNMIRIAN DEMARCO D [facility] LAB R79.89 V12.69 [id number] 01/20/2017 14:22:00 01/20/2017 23:59:59 CLS Outpatient BAIMA, VINCE L COMMERCIAL DIRECTOR [facility] CARD R07.9 [id number] 01/20/2017 14:20:00 01/20/2017 23:59:59 CLS Outpatient BAIMA, VINCE L COMMERCIAL DIRECTOR [facility] RAD R07.9 [id number] 01/02/2017 12:02:00 01/02/2017 23:59:59 CLS Outpatient MARIA GUADALUPEQUINTEN VEGANDA COMMERCIAL DIRECTOR [facility] CARD EDEMA R60.9 [id number] 12/27/2016 13:34:00 12/27/2016 15:12:00 DIS Emergency MAKI SHAH, RUSTY Shaw [facility] ER L ARM, BACK, BOTH LEGS NUMBNESS. CP [id number] 03/24/2016 08:43:00 03/24/2016 23:59:59 CLS Outpatient MARIA GUADALUPEQUINTENTON COMMERCIAL DIRECTOR [facility] RAD LOWER ABD PAIN [id number] 06/14/2015 10:38:00 06/14/2015 23:59:59 CLS Outpatient MARIA GUADALUPE, TON COMMERCIAL DIRECTOR [facility] RAD COLITIS [id number] 03/19/2015 09:30:00 03/19/2015 23:59:59 CLS Outpatient TON LERMA COMMERCIAL DIRECTOR [facility] CARD LEFT CHEST PRESSURE [id number] 03/09/2015 05:38:00 03/09/2015 23:59:59 CLS Outpatient PRIETO ZEPEDA MD [facility] PREOP HX POLPS,FAMILY HX, RECTAL BLEEDING [id number] 03/08/2015 12:02:00 03/08/2015 14:45:00 DIS Outpatient PRIETO ZEPEDA MD [facility] SDC NAUSEA/UPPER GASTRIC PAIN [id number] 03/06/2015 05:42:00 03/06/2015 23:59:59 CLS Outpatient PRIETO ZEPEDA MD [facility] PREOP UPPER GASTRIC PAIN [id number] 03/01/2014 10:38:00 03/01/2014 23:59:59 CLS Outpatient TON LERMA COMMERCIAL DIRECTOR [facility] RAD PAIN IN KNEE [id number] 06/09/2013 14:13:00 06/09/2013 18:07:00 DIS Emergency BETTY SHAH, FRANKLYN Bowen [facility] ER ABD PAIN/VOMITING [id number] 03/10/2013 13:22:00 03/10/2013 23:59:59 CLS Outpatient DERECK ALVAREZ COMMERCIAL DIRECTOR [facility] RAD BILAT NIPPLE DISCHARGE, BREAST PAIN [id number] 11/09/2012 07:47:00 11/09/2012 23:59:59 CLS Outpatient MARJORIE STRONG APRN [facility] RAD ABD PAIN, EPIGASTRIC [id number] 05/24/2015 09:00:00 Document Registration [id number] 08/04/2014 15:30:00 Document Registration [id number] 06/26/2014 11:49:00 Document Registration [id number] 07/05/2012 04:40:00 Document Registration [id number] 04/22/2012 13:36:00 Document Registration [id number] 04/20/2012 18:25:00 Document Registration [id number] 04/10/2011 05:44:00 Document Registration [id number] 04/03/2011 10:01:00 Document Registration [id number] 04/05/2010 14:06:00 Document Registration [id number] 03/18/2016 10:05:00 Document Registration [id number] 02/15/2016 18:06:00 Document Registration [id number] 12/02/2016 09:09:00 Document Registration
[2018-04-10] MEDS ORDERED: GENT5DRO OP (11:27)
[2018-04-10] MEDS ORDERED: HYDR-4226 PO (11:27)
[2018-04-10 11:35] VITALS: BP 154/78
== END 2018-04-10 11:35 | disposition home or self-care (01) ==
LOC: EDUNIT# 10:36 → ER 10:37
DX: H20.9 Unspecified iridocyclitis (principal); I12.9 Hypertensive chronic kidney disease with stage 1 through stage 4 chronic kidney disease, or unspecified chronic kidney disease; N18.4 Chronic kidney disease, stage 4 (severe); J44.9 Chronic obstructive pulmonary disease, unspecified; I10 Essential (primary) hypertension; E78.00 Pure hypercholesterolemia, unspecified; Z87.19 Personal history of other diseases of the digestive system; Z91.048 Other nonmedicinal substance allergy status; Z91.040 Latex allergy status; Z88.4 Allergy status to anesthetic agent; Z88.8 Allergy status to other drugs, medicaments and biological substances; Z79.51 Long term (current) use of inhaled steroids; Z79.52 Long term (current) use of systemic steroids; Z87.891 Personal history of nicotine dependence; Z98.51 Tubal ligation status; Z90.49 Acquired absence of other specified parts of digestive tract; Z98.890 Other specified postprocedural states
CPT/HCPCS: 99283

== ENCOUNTER 2018-09-13 15:46 | Emergency (ER) | payer BC ==
[~2018-09-13] VITALS: Ht 154.9 cm; Wt 102.1 kg
[~2018-09-13 15:46] MED LIST changes: -AMLO10TA6 PO; +AMLO10TA7 PO; +GENT5DRO OP; +HYDR-4226 PO
--- OUTSIDE RECORDS SUMMARY | 2018-09-13 15:53 | XMS REPORT ---
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 [address]- 7096 Nov, [facility] [address] [id number] [place] [address] 3227 Nov, [facility] [address] [id number] [place] [address] 2662 Oct, [facility] [place] [facility] [address] [id number] [place] [address] 0099 Oct, [facility] [address] [id number] [place] [address] 5338 September, [facility] [place] [facility] [address] [id number] [place] [address] 8161 Aug, [facility] [place] [facility] [address] [id number] [place] [address] 1865 Aug, [facility] [place] [facility] [address] [id number] [place] [address]- 7563 Aug, [facility] [address] [id number] [place] [address]- 4862 18 Jul, 2012 [facility] [place] [facility] [address] [id number] [place] [address]- 6806 Jul, [facility] [place] [facility] [address] [id number] [place] [address]- 1136 Jul, [facility] [place] [facility] [address] [id number] [place] [address]- 2546 04 Jul, 2012 [facility] [place] [facility] [address] [id number] [place] [address]- 2326 Jul, [facility] [place] [facility] [address] [id number] [place] [address]- 5506 28 Jun, 2012 [facility] [place] [facility] [address] [id number] [place] [address]- 0456 Jun, [facility] [place] [facility] [address] [id number] [place] [address]- 5407 Apr, [facility] [place] [facility] [address] [id number] [place] [address]- 9176 Apr, [facility] [place] [facility] [address] [id number] [place] [address] Apr, [facility] [place] [facility] [address] [id number] [place] [address] 2546 Apr, [facility] [place] [facility] [address] [id number] [place] [address] 2546 15 Apr, 2012 [facility] [place] [facility] [address] [id number] [place] [address] 2546 15 Apr, 2012 [facility] [place] [facility] [address] [id number] [place] [address]- 2546 12 Apr, 2012 [facility] [place] [facility] [address] [id number] [place] [address]- 2546 10 Apr, 2012 [facility] [place] [facility] [address] [id number] [place] [address]- 6207 10 Apr, 2012 [facility] [address] [id number] [place] [address]- 3443 12 Feb, 2012 [facility] [place] [facility] [address] [id number] [place] [address]- 7825 12 Feb, 2012 [facility] [address] [id number] [place] [address]- 5936 04 Feb, 2012 [facility] [place] [facility] [address] [id number] [place] [address]- 8164 13 Jan, 2012 [facility] [address] [id number] [place] [address]- 3712 13 Jan, 2012 [facility] [place] [facility] [address] [id number] [place] [address]- 9833 15 Oct, 2011 [facility] [address] [facility] [id number] [place] [address]- 5680 14 Oct, 2011 [facility] [place] [facility] [address] [id number] [place] [address]- 6481 05 Oct, 2011 [facility] [place] [facility] [address] [id number] [place] [address]- 5521 September, [facility] [place] [facility] [address] [facility] [id number] [place] [address]- 2476 06 Aug, 2011 [facility] [place] [facility] [address] [id number] [place] [address]- 3190 May, [facility] [place] [facility] [address] [id number], [place] [address]- 2788 20 Apr, 2011 [facility] [place] [facility] [address] [id number] [place] [address]- 8934 19 Apr, 2011 [facility] [place] [facility] [address] [id number] [place] [address]- 8846 19 Apr, 2011 [facility] [place] [facility] [address] [facility] [id number], [place] [address]- 9847 13 Apr, 2011 [facility] [place] [facility] [address] [id number] [place] [address]- 2350 14 Mar, 2011 [facility] [place] [facility] [address] [id number] [place] [address]- 5156 14 Mar, 2011 [facility] [place] [facility] [address] [id number] [place] [address]- 7548 14 Mar, 2011 [facility] [place] [facility] [address] [id number] [place] [address]- 4917 Mar, [facility] [place] [facility] [address] [id number] [place] [address]- 4486 17 Feb, 2011 [facility] [place] [facility] [address] [id number] [place] [address]- 0554 17 Feb, 2011 [facility] [place] [facility] [address] [id number] [place] [address]- 0188 10 Feb, 2011 [facility] [place] [facility] [address] [id number] [place] [address]- 3873 10 Feb, 2011 [facility] [place] [facility] [address] [id number] [place] [address]- 6037 September, [facility] [place] [facility] [address] [id number] [place] [address]- 1492 September, [facility] [place] [facility] [address] [id number] [place] [address]- 2093 13 Apr, 2010 [facility] [place] [facility] [address] [id number] [place] [address]- 8961 Apr, [facility] [place] [facility] [address] [id number] [place] [address]- 254 Mar, [facility] [place] [facility] [address] [id number] [place] [address] 2546 Mar, [facility] [place] [facility] [address] [id number] [place] [address]- 2541 23 Mar, 2010 [facility] [place] [facility] [address] [id number] [place] [address]- 1504 16 Mar, 2010 [facility] [address] [id number] [address] 6[address] 16 Mar, 2010 [facility] [id number], [place] [address]- 2594 Feb, [facility] [id number], [place] [address]- 6151 Feb, [facility] [id number], [place] [address]- 1332 Feb, [facility] [id number], [place] [address]- 3637 Jan, [facility] [id number] [place] [address]- 9590 Jun, [facility] [id number] [place] [address]- 5410 Mar, [facility] [id number], [place] [address]- 1572 Oct, [facility] [id number] [address]- 1229 Oct, [facility] [id number] [address]- 5565 September, IMMUNIZATIONS No Known Immunizations SOCIAL HISTORY Never Assessed REASON FOR VISIT EMR-[facility] [place]AN OF CARE VITAL SIGNS MEDICATIONS No [...] patient Medical History hypomagnesium Medical History hypokalemia Medical History [facility] 02/25/18: CKD 4-labs and fu in 3 months , bp log at home, increase propanolol 20mg to twice daily. Surgical History Right knee Surgical History gall bladder removal Surgical History appendectomy Surgical History tubal ligation Surgical History colonoscopy Surgical History Scope for hernia Hospitalization History Surgery Hospitalization History electrolytes were out of line, having speech problems 09/30/2017 Hospitalization History [facility] kidney/electrolyte issues 11/2017 Hospitalization History [facility] 11/2017
--- OUTSIDE RECORDS SUMMARY | 2018-09-13 15:53 | XMS REPORT ---
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 [id number] [place] [address]- 9182 Nov, [facility] [address] [id number] [place] [address] 4094 Nov, [facility] [address] [id number] [place] [address] 9049 Nov, [facility] [address] [id number] [place] [address]- 2802 Nov, [facility] [address] [id number] [place] [address]- 1808 Oct, [facility] [place] [facility] [address] [id number] [place] [address]- 9649 Oct, [facility] [address] [id number] [place] [address]- 5243 September, [facility] [place] [facility] [address] [id number] [place] [address]- 3438 Aug, [facility] [place] [facility] [address] [id number] [place] [address]- 4142 Aug, [facility] [place] [facility] [address] [id number] [place] [address]- 6143 Aug, [facility] [address] [id number] [place] [address]- 7440 18 Jul, 2012 [facility] [place] [facility] [address] [id number] [place] [address]- 4616 Jul, [facility] [place] [facility] [address] [id number] [place] [address]- 3836 Jul, [facility] [place] [facility] [address] [id number] [place] [address]- 2546 04 Jul, 2012 [facility] [place] [facility] [address] [id number] [place] [address]- 2206 Jul, [facility] [place] [facility] [address] [id number] [place] [address]- 7846 28 Jun, 2012 [facility] [place] [facility] [address] [id number] [place] [address]- 0106 Jun, [facility] [place] [facility] [address] [id number] [place] [address]- 2810 Apr, [facility] [place] [facility] [address] [id number] [place] [address]- 4146 Apr, [facility] [place] [facility] [address] [id number] [place] [address] Apr, [facility] [place] [facility] [address] [id number] [place] [address] 2546 Apr, [facility] [place] [facility] [address] [id number] [place] [address] 2546 15 Apr, 2012 [facility] [place] [facility] [address] [id number] [place] [address] 2546 15 Apr, 2012 [facility] [place] [facility] [address] [id number] [place] [address]- 2546 12 Apr, 2012 [facility] [place] [facility] [address] [id number] [place] [address]- 2546 10 Apr, 2012 [facility] [place] [facility] [address] [id number] [place] [address]- 3844 10 Apr, 2012 [facility] [address] [id number] [place] [address]- 7801 12 Feb, 2012 [facility] [place] [facility] [address] [id number] [place] [address]- 6390 12 Feb, 2012 [facility] [address] [id number] [place] [address]- 5386 04 Feb, 2012 [facility] [place] [facility] [address] [id number] [place] [address]- 6512 13 Jan, 2012 [facility] [address] [id number] [place] [address]- 5968 13 Jan, 2012 [facility] [place] [facility] [address] [id number] [place] [address]- 0463 15 Oct, 2011 [facility] [address] [facility] [id number] [place] [address]- 8155 14 Oct, 2011 [facility] [place] [facility] [address] [id number] [place] [address]- 3022 05 Oct, 2011 [facility] [place] [facility] [address] [id number] [place] [address]- 6007 September, [facility] [place] [facility] [address] [facility] [id number] [place] [address]- 6406 06 Aug, 2011 [facility] [place] [facility] [address] [id number] [place] [address]- 2281 May, [facility] [place] [facility] [address] [id number], [place] [address]- 5733 20 Apr, 2011 [facility] [place] [facility] [address] [id number] [place] [address]- 5003 19 Apr, 2011 [facility] [place] [facility] [address] [id number] [place] [address]- 6799 19 Apr, 2011 [facility] [place] [facility] [address] [facility] [id number], [place] [address]- 8234 13 Apr, 2011 [facility] [place] [facility] [address] [id number] [place] [address]- 1962 14 Mar, 2011 [facility] [place] [facility] [address] [id number] [place] [address]- 3826 14 Mar, 2011 [facility] [place] [facility] [address] [id number] [place] [address]- 0374 14 Mar, 2011 [facility] [place] [facility] [address] [id number] [place] [address]- 4466 Mar, [facility] [place] [facility] [address] [id number] [place] [address]- 2727 17 Feb, 2011 [facility] [place] [facility] [address] [id number] [place] [address]- 0920 17 Feb, 2011 [facility] [place] [facility] [address] [id number] [place] [address]- 7304 10 Feb, 2011 [facility] [place] [facility] [address] [id number] [place] [address]- 0027 10 Feb, 2011 [facility] [place] [facility] [address] [id number] [place] [address]- 0798 September, [facility] [place] [facility] [address] [id number] [place] [address]- 0920 September, [facility] [place] [facility] [address] [id number] [place] [address]- 3425 13 Apr, 2010 [facility] [place] [facility] [address] [id number] [place] [address]- 0919 Apr, [facility] [place] [facility] [address] [id number] [place] [address]- 2542 Mar, [facility] [place] [facility] [address] [id number] [place] [address] 2546 Mar, [facility] [place] [facility] [address] [id number] [place] [address]- 254 23 Mar, 2010 [facility] [place] [facility] [address] [id number] [place] [address]- 3998 16 Mar, 2010 [facility] [address] [id number], [place] [address]- 0600 16 Mar, 2010 [facility] [id number], [place] [address]- 8683 Feb, [facility] [id number], [place] [address]- 0877 Feb, [facility] [id number], [place] [address]- 8962 Feb, [facility] [id number], [place] [address]- 5613 Jan, [facility] [id number] [place] [address]- 4401 Jun, [facility] [id number] [place] [address]- 5065 Mar, [facility] [address], [place] [address]- 9691 Oct, [facility] [id number], [place] [address]- 6178 Oct, [facility] [id number], [place] [address]- 3299 September, IMMUNIZATIONS No Known Immunizations SOCIAL HISTORY Never Assessed REASON FOR VISIT EMR-[facility] PLAN OF CARE VITAL SIGNS MEDICATIONS No [...]
--- OUTSIDE RECORDS SUMMARY | 2018-09-13 15:54 | XMS REPORT ---
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 [address]- 3332 Dec, [facility] [place] [facility] [address] [id number] [place] [address]- 1488 Dec, [facility] [address] [id number] [place] [address]- 5641 Dec, [facility] [place] [facility] [address] [id number] [place] [address]- 0830 Nov, [facility] [place] [facility] [address] [id number] [place] [address]- 8933 Nov, [facility] [place] [facility] [address] [id number] [place] [address]- 7350 Nov, [facility] [address] [id number] [place] [address]- 8148 Nov, [facility] [place] [facility] [address] [id number] [place] [address]- 7525 Oct, [facility] [place] [facility] [address] [id number] [place] [address]- 2437 Oct, [facility] [place] [facility] [address] [id number] [place] [address]- 3147 September, [facility] [place] [facility] [address] [id number] [place] [address]- 5017 Aug, [facility] [place] [facility] [address] [id number] [place] [address]- 7402 Aug, [facility] [place] [facility] [address] [id number], [place] [address]- 1204 Aug, [facility] [place] [facility] [address] [id number], [place] [address]- 69[address] Jul, [facility] [place] [facility] [address] [id number] [place] [address]- 1614 Jul, [facility] [place] [facility] [address] [id number] [place] [address]- 1783 Jul, [facility] [place] [facility] [address] [id number] [place] [address]- 0996 Jul, [facility] [place] [facility] [address] [id number] [place] [address]- 1289 Jul, [facility] [address] [id number] [place] [address]- 4406 Jun, [facility] [address] [id number] [place] [address] 2546 Jun, [facility] [address] [id number] [place] [address]- 4416 Apr, [facility] [address] [id number] [place] [address] 2546 Apr, [facility] [address] [id number] [place] [address]- 0466 Apr, [facility] [address] [id number] [place] [address]- 0016 Apr, [facility] [address] [id number] [place] [address]- 3715 Apr, [facility] [address] [id number] [place] [address]- 6374 15 Apr, 2012 [facility] [address] [id number] [place] [address]- 0941 Apr, [facility] [address] [id number] [place] [address]- 4452 Apr, [facility] [place] [facility] [address] [id number] [place] [address] 2546 Apr, [facility] [address] [id number] [place] [address]- 8538 Feb, [facility] [place] [facility] [address] [id number] [place] [address]- 3341 Feb, [facility] [place] [facility] [address] [id number] [place] [address] 2546 04 Feb, 2012 [facility] [address] [id number] [place] [address]- 3261 13 Jan, 2012 [facility] [place] [facility] [address] [id number] [place] [address]- 3993 13 Jan, 2012 [facility] [place] [facility] [address] [id number] [place] [address]- 6920 15 Oct, 2011 [facility] [place] [facility] [address] [id number] [place] [address]- 3299 14 Oct, 2011 [facility] [place] [facility] [address] [id number] [place] [address] 2547 05 Oct, 2011 [facility] [place] [facility] [address] [id number] [place] [address]- 4004 September, [facility] [place] [facility] [address] [id number] [place] [address]- 0658 06 Aug, 2011 [facility] [place] [facility] [address] [id number] [place] [address]- 9731 31 May, 2011 [facility] [address] [id number] [place] [address]- 9549 20 Apr, 2011 [facility] [place] [facility] [address] [id number] [place] [address]- 4544 19 Apr, 2011 [facility] [place] [facility] [address] [id number] [place] [address]- 0686 19 Apr, 2011 [facility] [place] [facility] [address] [id number] [place] [address]- 6907 13 Apr, 2011 [facility] [place] [facility] [address] [id number], [place] [address]- 5667 14 Mar, 2011 [facility] [place] [facility] [address] [id number] [place] [address]- 0474 14 Mar, 2011 [facility] [place] [facility] [address] [id number] [place] [address] 14 Mar, 2011 [facility] [place] [facility] [address] [id number] [place] [address]- 4957 Mar, [facility] [place] [facility] [address] [id number], [place] [address]- 7381 17 Feb, 2011 [facility] [place] [facility] [address] [id number] [place] [address]- 6503 17 Feb, 2011 [facility] [place] [facility] [address] [id number] [place] [address]- 9429 10 Feb, 2011 [facility] [place] [facility] [address] [id number] [place] [address]- 3056 10 Feb, 2011 [facility] [place] [facility] [address] [id number] [place] [address]- 6670 September, [facility] [place] [facility] [address] [id number] [place] [address]- 5721 September, [facility] [place] [facility] [address] [id number] [place] [address]- 7683 Apr, [facility] [place] [facility] [address] [id number] [place] [address]- 7815 Apr, [facility] [place] [facility] [address] [id number] [place] [address]- 9584 Mar, [facility] [place] [facility] [address] [id number] [place] [address]- 5827 29 Mar, 2010 [facility] [place] [facility] [address] [id number] [place] [address]- 5023 Mar, [facility] [place] [facility] [address] [id number], [place] [address]- 9641 16 Mar, 2010 [facility] [place] [facility] [address] [id number] [place] [address]- 3127 16 Mar, 2010 [facility] [place] [facility] [address] [id number] [place] [address]- 4680 27 Feb, 2010 [facility] [place] [facility] [address] [id number] [place] [address]- 1498 26 Feb, 2010 [facility] [place] [facility] [address] [id number] [place] [address]- 8223 13 Feb, 2010 [facility] [place] [facility] [address] [facility] [id number], [place] [address]- 0946 13 Jan, 2010 [facility] [address] [id number], [place] [address]- [address]35 15 Jun, 2009 [facility] [address] [id number], [place] [address]- 9365 Mar, [facility] [address] [id number], [place] [address]- 6009 Oct, [facility] [address] [id number], [place] [address]- 2055 Oct, [facility] [id number] [id number] September, IMMUNIZATIONS No Known Immunizations SOCIAL HISTORY [...]
--- OUTSIDE RECORDS SUMMARY | 2018-09-13 15:54 | XMS REPORT ---
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 2546 04 Jul, 2012 [facility] [address] [id number] [place] [address]- 2896 Jul, [facility] [address] [id number] [place] [address]- 5476 28 Jun, 2012 [facility] [address] [id number] [place] [address]- 9786 Jun, [facility] [address] [id number] [place] [address]- 3178 Apr, [facility] [address] [id number] [place] [address]- 0436 Apr, [facility] [address] [id number] [place] [address] Apr, [facility] [address] [id number] [place] [address] 2546 Apr, [facility] [address] [id number] [place] [address] 2546 15 Apr, 2012 [facility] [address] [id number] [place] [address] 2546 15 Apr, 2012 [facility] [address] [id number] [place] [address]- 2546 12 Apr, 2012 [facility] [address] [id number] [place] [address]- 2546 10 Apr, 2012 [facility] [address] [id number] [place] [address]- 4546 10 Apr, 2012 [facility] [address] [id number] [place] [address]- 9308 12 Feb, 2012 [facility] [address] [id number] [place] [address]- 0670 12 Feb, 2012 [facility] [address] [id number] [place] [address]- 3386 04 Feb, 2012 [facility] [address] [id number] [place] [address]- 2835 13 Jan, 2012 [facility] [address] [id number] [place] [address]- 1454 13 Jan, 2012 [facility] [address] [id number] [place] [address]- 5391 15 Oct, 2011 [facility] [address] [facility] [id number] [place] [address]- 3907 14 Oct, 2011 [facility] [address] [id number] [place] [address]- 0771 05 Oct, 2011 [facility] [address] [id number] [place] [address]- 9769 September, [facility] [address] [facility] [id number] [place] [address]- 6106 06 Aug, 2011 [facility] [address] [id number] [place] [address]- 3324 May, [facility] [address] [id number], [place] [address]- 2356 20 Apr, 2011 [facility] [address] [id number] [place] [address]- 8086 19 Apr, 2011 [facility] [address] [id number] [place] [address]- 3823 19 Apr, 2011 [facility] [address] [facility] [id number], [place] [address]- 7901 13 Apr, 2011 [facility] [address] [id number] [place] [address]- 9905 14 Mar, 2011 [facility] [address] [id number] [place] [address]- 9246 14 Mar, 2011 [facility] [address] [id number] [place] [address]- 2092 14 Mar, 2011 [facility] [address] [id number] [place] [address]- 6767 Mar, [facility] [address] [id number] [place] [address]- 9227 17 Feb, 2011 [facility] [address] [id number] [place] [address]- 9528 17 Feb, 2011 [facility] [address] [id number] [place] [address]- 8087 10 Feb, 2011 [facility] [address] [id number] [place] [address]- 7378 10 Feb, 2011 [facility] [address] [id number] [place] [address]- 5496 September, [facility] [address] [id number] [place] [address]- 3780 September, [facility] [address] [id number] [place] [address]- 8884 13 Apr, 2010 [facility] [address] [id number] [place] [address]- 7782 Apr, [facility] [address] [id number] [place] [address]- 2547 Mar, [facility] [address] [id number] [place] [address] 2546 Mar, [facility] [address] [id number] [place] [address]- 2547 23 Mar, 2010 [facility] [address] [id number] [place] [address]- 7156 16 Mar, 2010 [facility] [address] [id number] [address]- 0944 16 Mar, 2010 [facility] [id number], [place] [address]- 8239 Feb, [facility] [id number], [place] [address]- 7349 Feb, [facility] [id number], [place] [address]- 7653 Feb, [facility] [id number], [place] [address]- 2839 Jan, [facility] [id number] [place] [address]- 6988 Jun, [facility] [id number] [place] [address]- 6589 Mar, [facility] [id number], [place] [address]- 3643 Oct, [facility] [id number], [place] [address]- 3710 Oct, [facility] [id number], [place] [address]- 0082 September, IMMUNIZATIONS No Known Immunizations SOCIAL HISTORY Never Assessed REASON FOR VISIT EMR-[facility] PLAN OF CARE VITAL SIGNS MEDICATIONS No [...]
[2018-09-13] MEDS ORDERED: FAMOTIDINE 20 MG (PEPCID) TABLET PO STA (15:59)
[2018-09-13] MEDS ORDERED: LACTATED RINGERS 1,000 ML IV ONE (15:59)
[2018-09-13] MEDS ORDERED: RT-ALBUTEROL/IPRATROPIUM 3 ML (DUONEB) VIAL INH ONE (16:00)
[2018-09-13] MEDS ORDERED: LIDOCAINE 2% VISCOUS 15 ML UDC PO ONE (16:00)
[2018-09-13] MEDS ORDERED: ANTACID SUSP 30 ML UDC (MYLANTA) PO ONE (16:00)
[2018-09-13 16:11] LABS: BASOPHILS % (AUTO) 0 % (0-10); EOSINOPHILS # (AUTO) 0.3 10^3/uL (0.0-0.3); EOSINOPHILS % (AUTO) 4 % (0-10); HEMATOCRIT 40 % (35-52); LYMPHOCYTES # (AUTO) 3.2 X 10^3 (1.0-4.0); LYMPHOCYTES % (AUTO) 34 % (12-44); MEAN CORPUSCULAR HEMOGLOBIN 29 PG (25-34); MEAN CORPUSCULAR HGB CONC 32 G/DL (32-36); MEAN CORPUSCULAR VOLUME 90 FL (80-99); MEAN PLATELET VOLUME 9.6 FL (7.4-10.4); MONOCYTES # (AUTO) 0.6 X 10^3 (0.0-1.0); MONOCYTES % (AUTO) 6 % (0-12); NEUTROPHILS # (AUTO) 5.3 X 10^3 (1.8-7.8); NEUTROPHILS % (AUTO) 56 % (42-75); PLATELET COUNT 320 10^3/uL (130-400); RED CELL DISTRIBUTION WIDTH 13.3 % (10.0-14.5); WHITE BLOOD COUNT 9.5 10^3/uL (4.3-11.0)
--- OUTSIDE RECORDS SUMMARY | 2018-09-13 16:12 | XMS REPORT ---
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 [place] [address]- [address] Nov, [facility] [place] [facility] [address] [id number] [place] [address] 6957 Nov, [facility] [place] [facility] [address] [id number] [place] [address] 9632 Nov, [facility] [address] [id number] [place] [address] Nov, [facility] [place] [facility] [address] [id number] [place] [address] 244[address] Oct, [facility] [place] [facility] [address] [id number] [place] [address]- 9569 Oct, [facility] [place] [facility] [address] [id number] [place] [address] 8[address] September, [facility] [place] [facility] [address] [id number] [place] [address] 5843 Aug, [facility] [place] [facility] [address] [id number] [place] [address] 2015 Aug, [facility] [place] [facility] [address] [id number] [place] [address] 6047 Aug, [facility] [place] [facility] [address] [id number] [place] [address] 3466 Jul, [facility] [place] [facility] [address] [id number] [place] [address]- 0710 Jul, [facility] [place] [facility] [address] [id number] [place] [address]- 6075 11 Jul, 2012 [facility] [place] [facility] [address] [id number] [place] [address] 04 Jul, 2012 [facility] [place] [facility] [address] [id number] [place] [address] Jul, [facility] [place] [facility] [address] [id number] [place] [address]56 28 Jun, 2012 [facility] [place] [facility] [address] [id number] [place] [address] Jun, [facility] [place] [facility] [address] [id number] [place] [address] 6028 Apr, [facility] [place] [facility] [address] [id number] [place] [address] 8833 Apr, [facility] [place] [facility] [address] [id number] [place] [address] 3797 Apr, [facility] [place] [facility] [address] [id number] [place] [address] 4633 Apr, [facility] [place] [facility] [address] [id number] [place] [address] 69[address] Apr, [facility] [place] [facility] [address] [id number] [place] [address] 3074 Apr, [facility] [place] [facility] [address] [id number] [place] [address]- 9547 Apr, [facility] [place] [facility] [address] [id number] [place] [address] 2546 Apr, [facility] [place] [facility] [address] [id number] [place] [address] Apr, [facility] [place] [facility] [address] [id number] [place] [address] Feb, [facility] [place] [facility] [address] [id number] [place] [address] 12 Feb, 2012 [facility] [place] [facility] [address] [id number] [place] [address]- 1193 04 Feb, 2012 [facility] [place] [facility] [address] [id number] [place] [address]- 7638 13 Jan, 2012 [facility] [place] [facility] [address] [id number] [place] [address]- 4330 13 Jan, 2012 [facility] [place] [facility] [address] [id number] [place] [address]- 2818 15 Oct, 2011 [facility] [place] [facility] [address] [id number] [place] [address]- 7623 14 Oct, 2011 [facility] [place] [facility] [address] [id number] [place] [address]- 5327 05 Oct, 2011 [facility] [place] [facility] [address] [id number] [place] [address]- 2808 September, [facility] [place] [facility] [address] [id number] [place] [address]- 3441 06 Aug, 2011 [facility] [place] [facility] [address] [id number] [place] [address]- 5814 May, [facility] [place] [facility] [address] [id number] [place] [address]- 0814 20 Apr, 2011 [facility] [place] [facility] [address] [id number] [address]- 0906 19 Apr, 2011 [facility] [place] [facility] [address] [id number] [address]- 1859 19 Apr, 2011 [facility] [place] [facility] [address] [id number] [place] [address]- 2323 13 Apr, 2011 [facility] [place] [facility] [address] [id number] [address]- 2909 14 Mar, 2011 [facility] [place] [facility] [address] [id number] [address]- 6929 14 Mar, 2011 [facility] [place] [facility] [address] [id number] [place] [address]- 3729 14 Mar, 2011 [facility] [place] [facility] [address] [id number] [place] [address]- 8792 Mar, [facility] [place] [facility] [address] [id number] [place] [address]- 7356 17 Feb, 2011 [facility] [place] [facility] [address] [id number] [place] [address]- 7546 17 Feb, 2011 [facility] [place] [facility] [address] [id number] [place] [address]- 1682 Feb, [facility] [place] [facility] [address] [id number] [place] [address]- 9130 Feb, [facility] [place] [facility] [address] [id number] [place] [address]- 2677 September, [facility] [place] [facility] [address] [id number] [place] [address]- 0044 September, [facility] [place] [facility] [address] [id number] [place] [address]- 5772 Apr, [facility] [place] [facility] [address] [id number] [place] [address]- 3406 Apr, [facility] [place] [facility] [address] [facility] [id number] [place] [address]- 5163 Mar, [facility] [place] [facility] [address] [id number] [place] [address]- 2210 29 Mar, 2010 [facility] [place] [facility] [address] [id number] [place] [address]- 254 23 Mar, 2010 [facility] [place] [facility] [address] [id number] [place] [address] 254 16 Mar, 2010 [facility] [place] [facility] [address] [id number] [place] [address]- 2542 16 Mar, 2010 [facility] [place] [facility] [address] [id number] [place] [address]- 5901 Feb, [facility] [address] [id number] [address] Feb, [facility] [id number] [address]- 2966 Feb, [facility] [id number] [address]- 0807 Jan, [facility] [id number] [place] [address] 1381 Jun, [facility] [id number] [address]- 0798 Mar, [facility] [id number] [place] [address]- 9357 Oct, [facility] [id number] [address]- 4349 Oct, [facility] [id number] [address] 9421 September, IMMUNIZATIONS No Known Immunizations SOCIAL HISTORY Never Assessed REASON FOR VISIT Internal Transfer- JORGE Floyd, Due for screening mammogram per BC/BS PLAN OF CARE Activity Details Follow Up 3 months or as indicated by lab Reason: VITAL SIGNS Height 62.1 in 2018-04-21 Weight 220.7 lbs 2018-04-21 Temperature 98.0 degrees Fahrenheit 2018-04-21 Heart Rate 79 bpm 2018-04-21 Respiratory Rate 22 2018-04-21 BMI 40.23 kg/m2 2018-04-21 Blood pressure systolic 124 mmHg 2018-04-21 Blood pressure diastolic 86 mmHg 2018-04-21 MEDICATIONS Medication Instructions Dosage Frequency Start Date End Date Duration Status Venlafaxine HCl ER 75 MG Orally Once a day-Patient must be seen for additional refills 1 capsule with food 14 days Active Propranolol HCl 20 mg Orally twice a day 1 tablet 12h Active Magnesium 250 MG Orally Once a day 1 tablet with a meal 24h Active Omeprazole 40 mg Orally 2 times a day 1 capsule 12h Active Symbicort 160-4.5 MCG/ACT Inhalation Twice a day 1 puff 12h Active Clotrimazole 1 % Externally Twice a day 1 application to affected area 12h 19 Apr, 2018 28 day(s) Active Zocor 40 mg Orally Once a day 1 tablet in the evening 24h Active Amitriptyline HCl 25 MG Orally Once a day 1-2 tablet at hs 24h 14 Jan, 2018 90 days Active Stelara 45 MG/0.5ML as directed Active Folic Acid 1 MG Orally Once a day 1 tablet 24h 30 Active Colestipol HCl 1 GM Orally Once a day 2 tablets 24h Active RESULTS No Results PROCEDURES No [...]
--- NOTE | 2018-09-13 16:14 | ED General ---
General Chief Complaint: General Problems/Pain Stated Complaint: KIDNEY FAILURE/POSS DEHYDRATED Nursing Triage Note: pt amb to room 5 with c/o "feeling puny." pt states she feels like her electrolytes are low. states she has stage 4 kidney disease. denies n/v. Nursing Sepsis Screen: No Definite Risk Source of Information: Patient, Spouse Exam Limitations: No Limitations History of Present Illness Date Seen by Provider: September 13, 2018 Time Seen by Provider: 15:55 Initial Comments Patient presents to ER by private conveyance with chief complaint that she has the same feeling she's having the past when her electrolytes were off and she was dehydrated. She denies having any nausea vomiting diarrhea or decreased appetite. She has stage IV kidney failure and follows with a customer resolution specialist and she says sometimes she just gets a feeling that her salts in her blood are off. She is not experiencing any chest pain but she does have some mild shortness of breath with a history of asthma. She uses Symbicort, and had 2 puffs on her albuterol inhaler about 2-3 hours prior to arrival with only mild improvement. She is not coughing anything up had no fevers or chills. She does have some mild dysuria and some epigastric pressure and discomfort she says it feels like is pressing against her diaphragm. She has a history of Crohn's. Allergies and Home Medications Allergies Coded Allergies: adhesive tape (Verified Allergy, Unknown, 11/19/17) latex (Verified Allergy, Unknown, 11/19/17) methotrexate (Unverified Allergy, Unknown, INCREASED LIVER ENZYMES, ) procaine (Unverified Allergy, Unknown, RASH, 06/26/14) Home Medications Albuterol Sulfate 90 Mcg Aer.pow.ba, 2 PUFF INH Q4H PRN for SHORTNESS OF BREATH, (Reported) Amlodipine Besylate 10 Mg Tablet, 10 MG PO DAILY, (Reported) Ascorbic Acid 500 Mg Tab.chew, 500 MG PO DAILY, (Reported) Budesonide/Formoterol Fumarate 10.2 Gm Hfa.aer.ad, 2 PUFF INH BID, (Reported) Colestipol HCl 1 Gm Tablet, 1 GM PO HS, (Reported) Cyclopentolate HCl 2 Ml Drops, 1 DROP OU BID PRN for EYE PAIN, (Reported) Diphenhydramine HCl 25 Mg Capsule, 25 MG PO HS, (Reported) Folic Acid 1 Mg Tablet, 1 MG PO HS, (Reported) Gentamicin/Prednisol AC 5 Ml Drops.susp, 1 DROP OP UD Every 2 hours today then every 6 hours tomorrow Prescribed by: OBED LANGLEY on 04/10/181126 Hydrocodone/Acetaminophen 1 Each Tablet, 1 EACH PO Q6H PRN for PAIN-MODERATE Prescribed by: OBED LANGLEY on 04/10/18 112 Lisinopril 40 Mg Tablet, 40 MG PO DAILY, (Reported) Milk Thistle Seed Extract 175 Mg Capsule, 175 MG PO DAILY, (Reported) Omeprazole 40 Mg Capsule.dr, 80 MG PO DAILY, (Reported) TAKES 2 (40MG) CAPSULES Prednisolone Acetate 10 Ml Drops.susp, 1 DROP OU Q4H, (Reported) Propranolol HCl 20 Mg Tablet, 20 MG PO BID, (Reported) Propylene Glycol 10 Ml Drops, 1-2 DROPS OU QID PRN for DRY EYES, (Reported) Simvastatin 40 Mg Tablet, 40 MG PO HS, (Reported) Trazodone HCl 100 Mg Tablet, 100 MG PO HS, (Reported) Venlafaxine HCl 150 Mg Cap.er.24h, 150 MG PO DAILY, (Reported) Patient Home Medication List Home Medication List Reviewed: Yes Review of Systems Review of Systems Constitutional: see HPI; No chills, No fever; malaise EENTM: No ear discharge, No hearing loss, No ear pain Respiratory: No cough, No phlegm; short of breath, wheezing Cardiovascular: No chest pain, No edema, No Hx of Intervention, No palpitations , No syncope, No vascular heart diseas Gastrointestinal: abdominal pain (epigastric); No constipation, No diarrhea, No nausea, No vomiting Genitourinary: No discharge; dysuria Musculoskeletal: No back pain, No joint pain Past Xhduouc-Eapufv-Jlijox Hx Patient Social History Alcohol Use: Denies Use Recreational Drug Use: No Drug of Choice: THC,METH,COCAINE-NO IV USE.CLAIMS "NONE FOR YEARS"-TEST + FOR METH 09/30/17 Type Used: Cigarettes, Electronic/Vapor Former Smoker, Quit: September 25, 2015 2nd Hand Smoke Exposure: No Recent Foreign Travel: No Contact w/Someone Who Travel: No Recent Infectious Disease Expo: No Recent Hopitalizations: No Physical Abuse: No Sexual Abuse: No Mistreated: No Fear: No Immunizations Up To Date Date of Pneumonia Vaccine: October 01, 2011 Date of Influenza Vaccine: Jan 09, 2011 Seasonal Allergies Seasonal Allergies: No Past Medical History Surgeries: Yes (RIGHT KNEE SCOPE, EGD/COLONOSCOPY) Appendectomy, Gallbladder, Orthopedic, Tubal Ligation Respiratory: Yes Asthma, Chronic Bronchitis, COPD Cardiac: Yes High Cholesterol, Hypertension Neurological: Yes Vertigo Reproductive Disorders: No 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 PROCESS IMPROVEMENT History: Tubal Ligation, Menopausal Sexually Transmitted Disease: No Genitourinary: No Gastrointestinal: Yes (FATTY LIVER) Liver Disease/Jaundice Musculoskeletal: Yes (RIGHT KNEE SCOPE) Arthritis, Fibromyalgia Endocrine: No HEENT: Yes (IRITIS) Cancer: No Psychosocial: No Integumentary: No Blood Disorders: No Family Medical History No Pertinent Family Hx, Diabetes Physical Exam Vital Signs Vital Signs - First Documented 09/13/18 15:49 Temp 97.6 Pulse 83 Resp 19 B/P (MAP) 150/86 (107) Pulse Ox 97 O2 Delivery Room Air Capillary Refill : Less Than 3 Seconds Height, Weight, BMI Height: 5'1.00" Weight: 225lbs. 3.0oz. 102.243827mk; 40.6 BMI Method:Stated General Appearance: No Apparent Distress, Obese Eyes: Bilateral Eye Normal Inspection, Bilateral Eye PERRL, Bilateral Eye EOMI HEENT: PERRL/EOMI, TMs Normal, Normal ENT Inspection, Pharynx Normal, Moist Mucous Membranes Neck: Full Range of Motion, Normal Inspection Respiratory: Chest Non Tender, Lungs Clear, Normal Breath Sounds, No Accessory Muscle Use, No Respiratory Distress Cardiovascular: Regular Rate, Rhythm, No Edema, Normal Peripheral Pulses Gastrointestinal: Normal Bowel Sounds, Soft, Tenderness (mild discomfort in epigastric region. Negative for Mendiola sign or mesenteric signs) Extremity: Normal Capillary Refill, Normal Inspection, Non Tender, No Calf Tenderness, No Pedal Edema Neurologic/Psychiatric: Alert, Oriented x3, No Motor/Sensory Deficits, Normal Mood/Affect Skin: Normal Color, Warm/Dry Progress/Results/Core Measures Suspected Sepsis Recent Fever Within 48 Hours: No Infection Criteria Present: None New/Unexplained Altered Menta: No Sepsis Screen: No Definite Risk SIRS Temperature:97.6 Pulse: 83 Respiratory Rate: 19 Laboratory Tests 09/13/18 15:55: White Blood Count 9.5 Blood Pressure 150 /86 Mean: 107 Laboratory Tests 09/13/18 15:55: Creatinine 1.62H, Platelet Count 320, Total Bilirubin 0.3 Results/Orders Lab Results Laboratory Tests Test 09/13/18 15:55 09/13/18 17:00 Range/Units White Blood Count 9.5 4.3-11.0 10^3/uL Red Blood Count 4.49 4.35-5.85 10^6/uL Hemoglobin 13.0 11.5-16.0 G/DL Hematocrit 40 35-52 % Mean Corpuscular Volume 90 80-99 FL Mean Corpuscular Hemoglobin 29 25-34 PG Mean Corpuscular Hemoglobin Concent 32 32-36 G/DL Red Cell Distribution Width 13.3 10.0-14.5 % Platelet Count 320 130-400 10^3/uL Mean Platelet Volume 9.6 7.4-10.4 FL Neutrophils (%) (Auto) 56 42-75 % Lymphocytes (%) (Auto) 34 12-44 % Monocytes (%) (Auto) 6 0-12 % Eosinophils (%) (Auto) 4 0-10 % Basophils (%) (Auto) 0 0-10 % Neutrophils # (Auto) 5.3 1.8-7.8 X 10^3 Lymphocytes # (Auto) 3.2 1.0-4.0 X 10^3 Monocytes # (Auto) 0.6 0.0-1.0 X 10^3 Eosinophils # (Auto) 0.3 0.0-0.3 10^3/uL Basophils # (Auto) 0.0 0.0-0.1 10^3/uL Sodium Level 143 135-145 MMOL/L Potassium Level 4.1 3.6-5.0 MMOL/L Chloride Level 104 98-107 MMOL/L Carbon Dioxide Level 25 21-32 MMOL/L Anion Gap 14 5-14 MMOL/L Blood Urea Nitrogen 20 H 7-18 MG/DL Creatinine 1.62 H 0.60-1.30 MG/DL Estimat Glomerular Filtration Rate 33 BUN/Creatinine Ratio 12 Glucose Level 130 H 70-105 MG/DL Calcium Level 9.5 8.5-10.1 MG/DL Corrected Calcium 9.6 8.5-10.1 MG/DL Magnesium Level 1.7 L 1.8-2.4 MG/DL Total Bilirubin 0.3 0.1-1.0 MG/DL Aspartate Amino Transf (AST/SGOT) 43 H 5-34 U/L Alanine Aminotransferase (ALT/SGPT) 69 H 0-55 U/L Alkaline Phosphatase 135 40-136 U/L C-Reactive Protein High Sensitivity 1.17 H 0.00-0.50 MG/DL B-Type Natriuretic Peptide 34.1 <100.0 PG/ML Total Protein 7.4 6.4-8.2 GM/DL Albumin 3.9 3.2-4.5 GM/DL Urine Color YELLOW Urine Clarity CLEAR Urine pH 7 5-9 Urine Specific [place] 1.010 L 1.016-1.022 Urine Protein 1+ H NEGATIVE Urine Glucose (UA) NEGATIVE NEGATIVE Urine Ketones NEGATIVE NEGATIVE Urine Nitrite NEGATIVE NEGATIVE Urine Bilirubin NEGATIVE NEGATIVE Urine Urobilinogen NORMAL NORMAL MG/DL Urine Leukocyte Esterase 1+ H NEGATIVE Urine RBC (Auto) NEGATIVE NEGATIVE Urine RBC NONE /HPF Urine WBC 2-5 /HPF Urine Squamous Epithelial Cells 5-10 /HPF Urine Crystals NONE /LPF Urine Bacteria TRACE /HPF Urine Casts NONE /LPF Urine Mucus NEGATIVE /LPF Urine Culture Indicated NO My Orders Orders - DAVONTE BREAUX Chest Pa/Lat (2 View) (09/13/18 15:59) BNP (09/13/18 15:59) Cbc With Automated Diff (09/13/18 15:59) Comprehensive Metabolic Panel (09/13/18 15:59) Hs C Reactive Protein (09/13/18 15:59) Magnesium (09/13/18 15:59) Ua Culture If Indicated (09/13/18 15:59) Ed Iv/Invasive Line Start (09/13/18 15:59) Lactated Ringers (Lr 1000 Ml Iv Solution (09/13/18 15:59) Albuterol/Ipra Inhalation Soln (Duoneb I (09/13/18 16:00) Svn Small Volume Nebulizer (09/13/18 15:59) Lidocaine 2% Viscous 15 Ml (Xylocaine Vi (09/13/18 16:00) Famotidine Tablet (Pepcid Tablet) (09/13/18 15:59) Antacid Suspension (Mylanta Suspension (09/13/18 16:00) Magnesium Oxide Tablet (Mag Ox Tablet) (09/13/18 17:00) Medications Given in ED Current Medications Medications Dose Ordered Sig/Erick Route Start Time Stop Time Status Last Admin Dose Admin Al Hydrox/Mg Hydrox/Simethicone 30 ml ONCE ONCE PO 09/13/18 16:00 09/13/18 16:04 DC 09/13/18 16:10 30 ML Albuterol/ Ipratropium 3 ml ONCE ONCE INH 09/13/18 16:00 09/13/18 16:04 DC 09/13/18 16:15 3 ML Lactated Ringer's 1,000 ml @ 0 mls/hr Q0M ONCE IV 09/13/18 15:59 09/13/18 16:04 DC 09/13/18 16:09 0 MLS/HR Lidocaine HCl 15 ml ONCE ONCE PO 09/13/18 16:00 09/13/18 16:04 DC 09/13/18 16:10 15 ML Magnesium Oxide 400 mg ONCE ONCE PO 09/13/18 17:00 09/13/18 17:01 DC 09/13/18 17:07 400 MG Vital Signs/I&O 09/13/18 09/13/18 15:49 16:17 Temp 97.6 Pulse 83 Resp 19 B/P (MAP) 150/86 (107) Pulse Ox 97 97 O2 Delivery Room Air Room Air Capillary Refill : Less Than 3 Seconds Blood Pressure Mean: 107 Progress Note #1: Time: 16:18 Progress Note Dysuria so we'll check urine, she claims her electrolytes are off and she has a history of kidney disease so we will check some labs. She's not having any cough or evidence of any infection however we'll get a chest x-ray since she has some wheezing give her breathing treatment see if this helps with her shortness of breath. Progress Note #2: Time: 16:55 Progress Note The patient does not have an elevated white count nor does she have an elevated markers of inflammation so abdominal discomfort is probably not a Crohn's flare. Her electrolytes are largely unremarkable. Rest of her blood work is okay. Urinalysis pending collection. Her GI distress did improve significantly after the cocktail. Probably her hiatal hernia possible gastritis etc. could be contributing to this. We suggested she follow-up with primary care. Diagnostic Imaging Diagonstic Imaging: Xray Plain Films/CT/US/NM/MRI: chest (2v) Comments [facility]. [place], [place] NAME: BRO LICONA [facility] REC#: [id number] PT STATUS: REG ER : 1965 PHYSICIAN: DAVONTE BREAUX MD ADMIT DATE: 09/13/18/ER Draft Date of Exam:09/13/18 CHEST PA/LAT (2 VIEW) INDICATION: Renal failure, shortness breath EXAM: PA and lateral chest FINDINGS: Heart size and pulmonary vascularity are normal. Lungs are clear. There are no effusions or pneumothoraces. IMPRESSION: Negative chest. Dictated on workstation # [id number] Dict: 09/13/18 1636 Trans: 09/13/18 1638 [facility] [id number] Interpreted by: SHANKAR COFFMAN MD Electronically signed by: Reviewed: Reviewed by Me Departure Impression Primary Impression: Fatigue Qualified Codes: R53.82 - Chronic fatigue, unspecified Additional Impressions: Muscle cramps Hypomagnesemia GERD (gastroesophageal reflux disease) Qualified Codes: K21.9 - Gastro-esophageal reflux disease without esophagitis Esophageal hiatal hernia Disposition: HOME, SELF-CARE Condition: Improved Departure-Patient Inst. Decision time for Depature: 17:22 Referrals: [facility] (PCP/Family) Primary Care Physician Patient Instructions: Acid Reflux (Gastroesophageal Reflux Disease), Adult (DC) Add. Discharge Instructions: Eat foods that are high and magnesium such as dark leafy green vegetables, spinach, Kale. Use your antacids as necessary for the pressure/pain in your stomach. If your abdominal discomfort becomes more frequent or unbearable then you can follow-up with your primary care doctor and look into getting a referral to a surgeon for endoscopy or management of your hiatal hernia. All discharge instructions reviewed with patient and/or family. Voiced understanding. DAVONTE BREAUX September 13, 2018 16:14
--- OUTSIDE RECORDS SUMMARY | 2018-09-13 16:21 | XMS REPORT | Continuity of Care Document ---
Author Organization Unknown Address Unknown Allergies Active Description Code Type Severity Reaction Onset Reported/Identified Relationship to Patient Clinical Status Yes Novacaine OA 09/19/2010 Yes Novacaine OA N/A N /A 09/19/2010 Yes No Known Drug Allergies [id number] Drug Allergy Unknown N/A 04/10/2011 Yes methotrexate Drug Allergy N/ A N/A 02/06/2014 Yes methotrexate [id number] Drug Allergy Unknown INCREASED LIVER 06/26/2014 Yes procaine [id number] Drug Allergy Unknown RASH 06/26/2014 Yes adhesive tape [id number] Drug Allergy Unknown N/A 11/19/2017 Yes latex [id number] Drug Allergy Unknown N/A 11/19/2017 Medications There [...] APRN 723.1 Pain Neck 11/10/2007 MARIA GUADALUPE CONVENTION SERVICES DIRECTOR, TON S 724.2 PAIN LOW BACK 11/10/2007 MARIA GUADALUPE CONVENTION SERVICES DIRECTOR, TON S 723.1 Pain Neck 11/10/2007 MARIA GUADALUPE CONVENTION SERVICES DIRECTOR, TON S 724.2 PAIN LOW BACK 11/10/2007 ISAIAS VALENZUELA MD 723.1 Pain Neck 11/10/2007 ISAIAS VALENZUELA MD 724.2 PAIN LOW BACK 11/10/2007 MARIA GUADALUPE CONVENTION SERVICES DIRECTOR, TON S 723.1 Pain Neck 11/10/2007 MARIA GUADALUPE CONVENTION SERVICES DIRECTOR, TON S 724.2 PAIN LOW BACK 11/10/2007 MARIA GUADALUPE CONVENTION SERVICES DIRECTOR, TON S 723.1 Pain Neck 11/10/2007 MARIA GUADALUPE CONVENTION SERVICES DIRECTOR, TON S 724.2 PAIN LOW BACK 11/10/2007 MARIA GUADALUPE CONVENTION SERVICES DIRECTOR, TON S 723.1 Pain Neck 11/10/2007 MARIA GUADALUPE CONVENTION SERVICES DIRECTOR, TON S 724.2 PAIN LOW BACK 11/10/2007 MARIA GUADALUPE CONVENTION SERVICES DIRECTOR, TON S 723.1 Pain Neck 11/10/2007 MARIA GUADALUPE CONVENTION SERVICES DIRECTOR, TON S 724.2 PAIN LOW BACK 11/10/2007 MARIA GUADALUPE CONVENTION SERVICES DIRECTOR, TON S 723.1 Pain Neck 11/10/2007 MARIA GUADALUPE CONVENTION SERVICES DIRECTOR, TON S 724.2 PAIN LOW BACK 11/10/2007 DIAZ VAUGHN, CATHERINE T 723.1 Pain Neck 11/10/2007 DAIZ CONVENTION SERVICES DIRECTOR, CATHERINE T 724.2 PAIN LOW BACK 11/10/2007 MARIA GUADALUPE CONVENTION SERVICES DIRECTOR, TON S 723.1 Pain Neck 11/10/2007 MARIA GUADALUPE CONVENTION SERVICES DIRECTOR, TON S 724.2 PAIN LOW BACK 11/10/2007 MARIA GUADALUPE CONVENTION SERVICES DIRECTOR, TON S 723.1 Pain Neck 11/10/2007 MARIA GUADALUPE CONVENTION SERVICES DIRECTOR, TON S 724.2 PAIN LOW BACK 11/10/2007 MARIA GUADALUPE CONVENTION SERVICES DIRECTOR, TON S 723.1 Pain Neck 11/10/2007 MARIA GUADALUPE CONVENTION SERVICES DIRECTOR, TON S 724.2 PAIN LOW BACK 11/10/2007 MARIA GUADALUPE CONVENTION SERVICES DIRECTOR, TON S 723.1 Pain Neck 11/10/2007 TON LERMA APRN S 724.2 PAIN LOW BACK 11/10/2007 NATASHA PERALES, GERONIMO L 723.1 Pain Neck 11/10/2007 NATASHA PERALES, GERONIMO L 724.2 PAIN LOW BACK 11/10/2007 SACHA ROMANO DOA K 723.1 Pain Neck 11/10/2007 JUAN ANTONIO OTTOSACHAA K 724.2 PAIN LOW BACK 11/10/2007 NATASHA PERALES, GERONIMO L 723.1 Pain Neck 11/10/2007 NATASHA PERALES, GERONIMO L 724.2 PAIN LOW BACK 11/10/2007 POST CONVENTION SERVICES DIRECTORSYMONE Ramos 723.1 Pain Neck 11/10/2007 POST SYMONE VAUGHN 724.2 PAIN LOW BACK 11/10/2007 RICHARD CONVENTION SERVICES DIRECTOR, JEWELS 723.1 Pain Neck 11/10/2007 RICHARD CONVENTION SERVICES DIRECTOR, JEWELS 724.2 PAIN LOW BACK 11/10/2007 RICHARD CONVENTION SERVICES DIRECTOR, JEWELS 723.1 Pain Neck 11/10/2007 RICHARD CONVENTION SERVICES DIRECTOR, JEWELS 724.2 PAIN LOW BACK 11/10/2007 RICHARD CONVENTION SERVICES DIRECTOR, JWEELS 723.1 Pain Neck 11/10/2007 RICHARD CONVENTION SERVICES DIRECTOR, JEWELS 724.2 PAIN LOW BACK 11/11/2007 JUAN ANTONIO OTTOSACHAA K 847.0 SPRAIN/STRAIN NECK 11/11/2007 847.0 SPRAIN/STRAIN NECK 11/11/2007 847.0 SPRAIN/STRAIN NECK 11/11/2007 TON LERMA APRN S 847.0 Sprain/strain Neck 11/11/2007 MARJORIE STRONG APRN 847.0 Sprain/strain Neck 11/11/2007 847.0 Sprain/strain Neck 11/11/2007 847.0 Sprain/strain Neck 11/11/2007 847.0 Sprain/strain Neck 11/11/2007 TON LERMA APRN 847.0 Sprain/strain Neck 11/11/2007 TON LERMA APRN 847.0 Sprain/strain Neck 11/11/2007 BIANCA SHAH, ISAIAS 847.0 Sprain/strain Neck 11/11/2007 MARIA GUADALUPE CONVENTION SERVICES DIRECTOR, TON S 847.0 Sprain/strain Neck 11/11/2007 MARIA GUADALUPE CONVENTION SERVICES DIRECTOR, TON S 847.0 Sprain/strain Neck 11/11/2007 MARIA GUADALUPE CONVENTION SERVICES DIRECTOR, TON S 847.0 Sprain/strain Neck 11/11/2007 MARIA GUADALUPE CONVENTION SERVICES DIRECTOR, TON S 847.0 Sprain/strain Neck 11/11/2007 MARIA GUADALUPE CONVENTION SERVICES DIRECTOR, TON S 847.0 Sprain/strain Neck 11/11/2007 DIAZ CONVENTION SERVICES DIRECTOR, CATHERINE T 847.0 Sprain/strain Neck 11/11/2007 MARIA GUADALUPE CONVENTION SERVICES DIRECTOR, TON S 847.0 Sprain/strain Neck 11/11/2007 MARIA GUADALUPE CONVENTION SERVICES DIRECTOR, TON S 847.0 Sprain/strain Neck 11/11/2007 MARIA GUADALUPE CONVENTION SERVICES DIRECTOR, TON S 847.0 Sprain/strain Neck 11/11/2007 MARIA GUADALUPE CONVENTION SERVICES DIRECTOR, TON S 847.0 Sprain/strain Neck 11/11/2007 VELASQUEZ KAUR PSYD ANN L 847.0 Sprain/strain Neck 11/11/2007 JEWELS ROMANO DO K 847.0 Sprain/strain Neck 11/11/2007 VELASQUEZ KAUR PSYD ANN L 847.0 Sprain/strain Neck 11/11/2007 SEJAL CONVENTION SERVICES DIRECTORSYMONE Ramos D 847.0 Sprain/strain Neck 11/11/2007 RICHARD CONVENTION SERVICES DIRECTOR, JEWELS 847.0 Sprain/strain Neck 11/11/2007 RICHARD CONVENTION SERVICES DIRECTOR, JEWELS 847.0 Sprain/strain Neck 11/11/2007 RICHARD CONVENTION SERVICES DIRECTOR, JEWELS 847.0 Sprain/strain Neck 12/09/2007 JEWELS ROMANO [...] REGION NOT ELSEWHERE CLASSIFIED 12/09/2007 MARIA GUADALUPE VAUGHN TON S 739.3 [...] Region Not Elsewhere Classified 12/09/2007 MARIA GUADALUPE CONVENTION SERVICES DIRECTOR, TON S 739.3 Nonallopathic Lesions Of Lumbar Region Not Elsewhere Classified 12/09/2007 MARIA GUADALUPE VAUGHN TON S 739.4 Nonallopathic Lesions Of Sacral Region Not Elsewhere Classified 12/09/2007 MARIA GUADALUPE CONVENTION SERVICES DIRECTOR, TON S 739.3 Nonallopathic Lesions Of Lumbar Region Not Elsewhere Classified 12/09/2007 MARIA GUADALUPE VAUGHN TON S 739.4 Nonallopathic Lesions Of Sacral Region Not Elsewhere Classified 12/09/2007 MARIA GUADALUPE CONVENTION SERVICES DIRECTOR, TON S 739.3 Nonallopathic Lesions Of Lumbar Region Not Elsewhere Classified 12/09/2007 MARIA GUADALUPE CONVENTION SERVICES DIRECTOR, TON S 739.4 Nonallopathic Lesions Of Sacral Region Not Elsewhere Classified 12/09/2007 MARIA GUADALUPE CONVENTION SERVICES DIRECTOR, TON S 739.3 Nonallopathic Lesions Of Lumbar Region Not Elsewhere Classified 12/09/2007 MARIA GUADALUPE CONVENTION SERVICES DIRECTOR, TON S 739.4 Nonallopathic Lesions Of Sacral Region Not Elsewhere Classified 12/09/2007 MARIA GUADALUPE CONVENTION SERVICES DIRECTOR, TON S 739.3 Nonallopathic Lesions Of Lumbar Region Not Elsewhere Classified 12/09/2007 MARIA GUADALUPE CONVENTION SERVICES DIRECTOR, TON S 739.4 Nonallopathic Lesions Of Sacral Region Not Elsewhere Classified 12/09/2007 CATHERINE PERALES APRN 739.3 Nonallopathic Lesions Of Lumbar Region Not Elsewhere Classified 12/09/2007 CATHERINE PERALES APRN 739.4 Nonallopathic Lesions Of Sacral Region Not Elsewhere Classified 12/09/2007 MARIA GUADALUPE CONVENTION SERVICES DIRECTOR, TON S 739.3 Nonallopathic Lesions Of Lumbar Region Not Elsewhere Classified 12/09/2007 MARIA GUADALUPE CONVENTION SERVICES DIRECTOR, TON S 739.4 Nonallopathic Lesions Of Sacral Region Not Elsewhere Classified 12/09/2007 MARIA GUADALUPE CONVENTION SERVICES DIRECTOR, TON S 739.3 Nonallopathic Lesions Of Lumbar Region Not Elsewhere Classified 12/09/2007 MARIA GUADALUPE CONVENTION SERVICES DIRECTOR, TON S 739.4 Nonallopathic Lesions Of Sacral Region Not Elsewhere Classified 12/09/2007 MARIA GUADALUPE CONVENTION SERVICES DIRECTOR, TON S 739.3 Nonallopathic Lesions Of Lumbar Region Not Elsewhere Classified 12/09/2007 MARIA GUADALUPE CONVENTION SERVICES DIRECTOR, TON S 739.4 Nonallopathic Lesions Of Sacral Region Not Elsewhere Classified 12/09/2007 MARIA GUADALUPE CONVENTION SERVICES DIRECTOR, TON S 739.3 Nonallopathic Lesions Of Lumbar Region Not Elsewhere Classified 12/09/2007 MARIA GUADALUPE CONVENTION SERVICES DIRECTOR, TON S 739.4 Nonallopathic Lesions Of Sacral [...] Sacral Region Not Elsewhere Classified 12/09/2007 RICHARD CONVENTION SERVICES DIRECTOR, JEWELS 739.3 Nonallopathic Lesions Of Lumbar Region Not Elsewhere Classified 12/09/2007 RICHARD CONVENTION SERVICES DIRECTOR JEWELS 739.4 Nonallopathic Lesions Of Sacral Region Not Elsewhere Classified 12/09/2007 RICHARD CONVENTION SERVICES DIRECTOR, JEWELS 739.3 Nonallopathic Lesions Of Lumbar Region Not Elsewhere Classified 12/09/2007 RICHARD CONVENTION SERVICES DIRECTOR, JEWELS 739.4 Nonallopathic Lesions Of Sacral Region Not Elsewhere Classified 12/09/2007 RICHARD CONVENTION SERVICES DIRECTOR, JEWELS 739.3 Nonallopathic Lesions Of Lumbar Region Not Elsewhere Classified 12/09/2007 RICHARD CONVENTION SERVICES DIRECTOR, JEWELS 739.4 Nonallopathic Lesions Of Sacral Region [...] Sprain/strain Other Unspec Site 12/30/2007 MARIA GUADALUPE CONVENTION SERVICES DIRECTOR, TON S 848.9 Sprain/strain Other Unspec Site 12/30/2007 MARIA GUADALUPE CONVENTION SERVICES DIRECTOR, TON S 848.9 Sprain/strain Other Unspec Site 12/30/2007 ISAIAS VALENZUELA MD 848.9 Sprain/strain Other Unspec Site 12/30/2007 MARIA GUADALUPE CONVENTION SERVICES DIRECTOR, TON S 848.9 Sprain/strain Other Unspec Site 12/30/2007 MARIA GUADALUPE CONVENTION SERVICES DIRECTOR, TON S 848.9 Sprain/strain Other Unspec Site 12/30/2007 MARIA GUADALUPE CONVENTION SERVICES DIRECTOR, TON S 848.9 Sprain/strain Other Unspec Site 12/30/2007 MARIA GUADALUPE CONVENTION SERVICES DIRECTOR, TON S 848.9 Sprain/strain Other Unspec Site 12/30/2007 MARIA GUADALUPE CONVENTION SERVICES DIRECTOR, TON S 848.9 Sprain/strain Other Unspec Site 12/30/2007 CATHERINE PERALES APRN 848.9 Sprain/strain Other Unspec Site 12/30/2007 MARIA GUADALUPE CONVENTION SERVICES DIRECTOR, TON S 848.9 Sprain/strain Other Unspec Site 12/30/2007 MARIA GUADALUPE CONVENTION SERVICES DIRECTOR, TON S 848.9 Sprain/strain Other Unspec Site 12/30/2007 MARIA GUADALUPE CONVENTION SERVICES DIRECTOR, TON S 848.9 Sprain/strain Other Unspec Site 12/30/2007 MARIA GUADALUPE CONVENTION SERVICES DIRECTOR, TON S 848.9 Sprain/strain Other Unspec Site 12/30/2007 VELASQUEZ KAUR PSYD 848.9 Sprain/strain Other Unspec Site 12/30/2007 JEWELS ROMANO DO 848.9 Sprain/strain Other Unspec Site 12/30/2007 VELASQUEZ KAUR PSYD L 848.9 Sprain/strain Other Unspec Site 12/30/2007 SYMONE POST APRN 848.9 Sprain/strain Other Unspec Site 12/30/2007 RICHARDJEWELS FUENTES APRN 848.9 Sprain/strain Other Unspec Site 12/30/2007 RICHARDALFREDO VAUGHN JEWELS 848.9 Sprain/strain Other Unspec Site 12/30/2007 RICHARD JOHANA JEWELS 848.9 Sprain/strain Other Unspec Site 01/17/2008 ROMANO DO, JEWELS K 110.1 ONYCHOMYCOSIS 01/17/2008 110.1 ONYCHOMYCOSIS 01/17/2008 110.1 ONYCHOMYCOSIS 01/17/2008 MARIA GUADALUPE CONVENTION SERVICES DIRECTOR, TON S 110.1 ONYCHOMYCOSIS 01/17/2008 MARJORIE STRONG APRN 110.1 ONYCHOMYCOSIS 01/17/2008 110.1 ONYCHOMYCOSIS 01/17/2008 110.1 ONYCHOMYCOSIS 01/17/2008 110.1 ONYCHOMYCOSIS 01/17/2008 MARIA GUADALUPE CONVENTION SERVICES DIRECTOR, TON S 110.1 ONYCHOMYCOSIS 01/17/2008 MARIA GUADALUPE CONVENTION SERVICES DIRECTOR, TON S 110.1 ONYCHOMYCOSIS 01/17/2008 ISAIAS VALENZUELA MD 110.1 ONYCHOMYCOSIS 01/17/2008 MARIA GUADALUPE CONVENTION SERVICES DIRECTOR, TON S 110.1 ONYCHOMYCOSIS 01/17/2008 MARIA GUADALUPE CONVENTION SERVICES DIRECTOR, TON S 110.1 ONYCHOMYCOSIS 01/17/2008 MARIA GUADALUPE CONVENTION SERVICES DIRECTOR, TON S 110.1 ONYCHOMYCOSIS 01/17/2008 MARIA GUADALUPE CONVENTION SERVICES DIRECTOR, TON S 110.1 ONYCHOMYCOSIS 01/17/2008 MARIA GUADALUPE CONVENTION SERVICES DIRECTOR, TON S 110.1 ONYCHOMYCOSIS 01/17/2008 CATHERINE PERALES APRN 110.1 ONYCHOMYCOSIS 01/17/2008 MARIA GUADALUPE CONVENTION SERVICES DIRECTOR, TON S 110.1 ONYCHOMYCOSIS 01/17/2008 MARIA GUADALUPE CONVENTION SERVICES DIRECTOR, TON S 110.1 ONYCHOMYCOSIS 01/17/2008 MARIA GUADALUPE CONVENTION SERVICES DIRECTOR, TON S 110.1 ONYCHOMYCOSIS 01/17/2008 MARIA GUADALUPE CONVENTION SERVICES DIRECTOR, TON S 110.1 ONYCHOMYCOSIS 01/17/2008 VELASQUEZ KAUR PSYD L 110.1 ONYCHOMYCOSIS 01/17/2008 JEWELS ROMANO DO K 110.1 ONYCHOMYCOSIS 01/17/2008 VELASQUEZ KAUR PSYD L 110.1 ONYCHOMYCOSIS 01/17/2008 SYMONE POST APRN 110.1 ONYCHOMYCOSIS 01/17/2008 RICHARD CONVENTION SERVICES DIRECTOR, JEWLES 110.1 ONYCHOMYCOSIS 01/17/2008 RICHARD CONVENTION SERVICES DIRECTOR, JEWELS 110.1 ONYCHOMYCOSIS 01/17/2008 RICHARD CONVENTION SERVICES DIRECTOR, JEWELS 110.1 ONYCHOMYCOSIS 01/21/2008 JEWELS ROMANO DO [facility] RECORDS 01/21/2008 [facility] MED[facility] RECORDS 01/21/2008 [facility] MEDICAL RECORDS 01/21/2008 MARIA GUADALUPE CONVENTION SERVICES DIRECTOR, TON S [facility] Medical Records 01/21/2008 MARJORIE STRONG APRN [facility] Medical Records 01/21/2008 [facility] Medical Records 01/21/2008 [facility] Medical Records 01/21/2008 [facility] Medical Records 01/21/2008 MARIA GUADALUPE CONVENTION SERVICES DIRECTOR, TON S [facility] Medical Records 01/21/2008 MARIA GUAADLUPE CONVENTION SERVICES DIRECTOR, TON S [facility] Medical Records 01/21/2008 BIANCA SHAH, ISAIAS [facility] Medical Records 01/21/2008 MARIA GUADALUPE CONVENTION SERVICES DIRECTOR, TON S [facility] Medical Records 01/21/2008 MARIA GUADALUPE CONVENTION SERVICES DIRECTOR, TON S [facility] Medical Records 01/21/2008 MARIA GUADALUPE CONVENTION SERVICES DIRECTOR, TON S [facility] Medical Records 01/21/2008 MARIA GUADALUPE CONVENTION SERVICES DIRECTOR, TON S [facility] Medical Records 01/21/2008 MARIA GUADALUPE CONVENTION SERVICES DIRECTOR, TON S [facility] Medical Records 01/21/2008 DIAZ VAUGHN, CATHERINE Walker [facility] Medical Records 01/21/2008 MARIA GUADALUPE CONVENTION SERVICES DIRECTOR, TON S [facility] Medical Records 01/21/2008 MARIA GUADALUPE CONVENTION SERVICES DIRECTOR, TON S [facility] Medical Records 01/21/2008 MARIA GUADALUPE CONVENTION SERVICES DIRECTOR, TON S [facility] Medical Records 01/21/2008 MARIA GUADALUPE CONVENTION SERVICES DIRECTOR, TON S [facility] Medical Records 01/21/2008 VELASQUEZ KAUR PSYD [facility] Medical Records 01/21/2008 JEWELS ROMANO DO [facility] Medical Records 01/21/2008 VELASQUEZ KAUR PSYD [facility] Medical Records 01/21/2008 SYMONE POST APRN [facility] Medical Records 01/21/2008 RICHARD CONVENTION SERVICES DIRECTOR, JEWELS [facility] Medical Records 01/21/2008 RICHARD CONVENTION SERVICES DIRECTOR, JEWELS [facility] Medical Records 01/21/2008 RICHARD CONVENTION SERVICES DIRECTOR, JEWELS [facility] Medical Records 02/10/2008 JEWELS ROMANO DO 847.9 SPRAIN/STRAIN BACK UNSPEC 02/10/2008 847.9 SPRAIN/STRAIN BACK UNSPEC 02/10/2008 847.9 SPRAIN/STRAIN BACK UNSPEC 02/10/2008 TON LERMA APRN S 847.9 Sprain/strain Back Unspec 02/10/2008 MARJORIE STRONG APRN 847.9 Sprain/strain Back Unspec 02/10/2008 847.9 Sprain/strain Back Unspec 02/10/2008 847.9 Sprain/strain Back Unspec 02/10/2008 847.9 Sprain/strain Back Unspec 02/10/2008 TON LERMA APRN S 847.9 Sprain/strain Back Unspec 02/10/2008 BRITNEY LERMA APRNA S 847.9 Sprain/strain Back Unspec 02/10/2008 BIANCA SHAH, ISAIAS 847.9 Sprain/strain Back Unspec 02/10/2008 BRITNEY LERMA [...] APRNA S 847.9 Sprain/strain Back Unspec 02/10/2008 VELASQUEZ KAUR PSYD 847.9 Sprain/strain Back Unspec 02/10/2008 JEWELS ROMANO DO 847.9 Sprain/strain Back Unspec 02/10/2008 VELASQUEZ KAUR PSYD 847.9 Sprain/strain Back Unspec 02/10/2008 SEJAL CONVENTION SERVICES DIRECTORSYMONE Ramos 847.9 Sprain/strain Back Unspec 02/10/2008 RICHARD CONVENTION SERVICES DIRECTORJEWELS Ramos 847.9 Sprain/strain Back Unspec 02/10/2008 RICHARD CONVENTION SERVICES DIRECTOR, JEWELS 847.9 Sprain/strain Back Unspec 02/10/2008 RICHARD CONVENTION SERVICES DIRECTOR, JEWELS 847.9 Sprain/strain Back Unspec 02/24/2008 JEWELS ROMANO DO 466.0 BRONCHITIS, ACUTE 02/24/2008 466.0 BRONCHITIS, ACUTE 02/24/2008 466.0 BRONCHITIS, ACUTE 02/24/2008 MARIA GUADALUPE CONVENTION SERVICES DIRECTOR, TON S 466.0 Bronchitis, Acute 02/24/2008 MARJORIE STRONG APRN 466.0 Bronchitis, Acute 02/24/2008 466.0 Bronchitis, Acute 02/24/2008 466.0 Bronchitis, Acute 02/24/2008 466.0 Bronchitis, Acute 02/24/2008 MARIA GUADALUPE CONVENTION SERVICES DIRECTOR, TON S 466.0 Bronchitis, Acute 02/24/2008 MARIA GUADALUPE CONVENTION SERVICES DIRECTOR, TON S 466.0 Bronchitis, Acute 02/24/2008 BIANCA SHAH, ISAIAS 466.0 Bronchitis, Acute 02/24/2008 MARIA GUADALUPE CONVENTION SERVICES DIRECTOR, TON S 466.0 Bronchitis, Acute 02/24/2008 MARIA GUADALUPE CONVENTION SERVICES DIRECTOR, TON S 466.0 Bronchitis, Acute 02/24/2008 MARIA GUADALUPE CONVENTION SERVICES DIRECTOR, TON S 466.0 Bronchitis, Acute 02/24/2008 MARIA GUADALUPE CONVENTION SERVICES DIRECTOR, TON S 466.0 Bronchitis, Acute 02/24/2008 MARIA GUADALUPE CONVENTION SERVICES DIRECTOR, TON S 466.0 Bronchitis, Acute 02/24/2008 CATHERINE PERALES APRN 466.0 Bronchitis, Acute 02/24/2008 MARIA GUADALUPE CONVENTION SERVICES DIRECTOR, TON S 466.0 Bronchitis, Acute 02/24/2008 MARIA GUADALUPE CONVENTION SERVICES DIRECTOR, TON S 466.0 Bronchitis, Acute 02/24/2008 MARIA GUADALUPE CONVENTION SERVICES DIRECTOR, TON S 466.0 Bronchitis, Acute 02/24/2008 MARIA GUADALUPE CONVENTION SERVICES DIRECTOR, TON S 466.0 Bronchitis, Acute 02/24/2008 NATASHA PERALES, VELASQUEZ Mello 466.0 Bronchitis, Acute 02/24/2008 ROMANO DO, JEWELS K 466.0 Bronchitis, Acute 02/24/2008 VELASQUEZ KAUR PSYD 466.0 Bronchitis, Acute 02/24/2008 SEJAL CONVENTION SERVICES DIRECTORSYMONE Ramos 466.0 Bronchitis, Acute 02/24/2008 RICHARD CONVENTION SERVICES DIRECTOR, JEWELS 466.0 Bronchitis, Acute 02/24/2008 RICHARD CONVENTION SERVICES DIRECTOR, JEWELS 466.0 Bronchitis, Acute 02/24/2008 RICHARD CONVENTION SERVICES DIRECTOR, JEWELS 466.0 Bronchitis, Acute 04/04/2008 JUAN ANTONIO DO, JEWELS K 133.0 SCABIES 04/04/2008 133.0 SCABIES 04/04/2008 133.0 SCABIES 04/04/2008 MARIA GUADALUPE CONVENTION SERVICES DIRECTOR, TON S 133.0 Scabies 04/04/2008 MARJORIE STRONG APRN 133.0 Scabies 04/04/2008 133.0 Scabies 04/04/2008 133.0 Scabies 04/04/2008 133.0 Scabies 04/04/2008 MARIA GUADALUPE CHAUDHARIN, TON S 133.0 Scabies 04/04/2008 MARIA GUADALUPE CONVENTION SERVICES DIRECTOR, TON S 133.0 Scabies 04/04/2008 ISAIAS VALENZUELA MD 133.0 Scabies 04/04/2008 MARIA GUADALUPE CONVENTION SERVICES DIRECTOR, TON S 133.0 Scabies 04/04/2008 MARIA GUADALUPE CONVENTION SERVICES DIRECTOR, TON S 133.0 Scabies 04/04/2008 MARIA GUADALUPE CONVENTION SERVICES DIRECTOR, TON S 133.0 Scabies 04/04/2008 MARIA GUADALUPE CONVENTION SERVICES DIRECTOR, TON S 133.0 Scabies 04/04/2008 MARIA GUADALUPE CONVENTION SERVICES DIRECTOR, TON S 133.0 Scabies 04/04/2008 CATHERINE PERALES APRN 133.0 Scabies 04/04/2008 MARIA GUADALUPE CONVENTION SERVICES DIRECTOR, TON S 133.0 Scabies 04/04/2008 MARIA GUADALUPE CONVENTION SERVICES DIRECTOR, TON S 133.0 Scabies 04/04/2008 MARIA GUADALUPE CONVENTION SERVICES DIRECTOR, TON S 133.0 Scabies 04/04/2008 MARIA GUADALUPE CONVENTION SERVICES DIRECTOR, TON S 133.0 Scabies 04/04/2008 VELASQUEZ KAUR PSYD 133.0 Scabies 04/04/2008 ROMANO DO, JEWELS K 133.0 Scabies 04/04/2008 VELASQUEZ KAUR PSYD L 133.0 Scabies 04/04/2008 POST CONVENTION SERVICES DIRECTOR, SYMONE D 133.0 Scabies 04/04/2008 RICHARD CONVENTION SERVICES DIRECTOR, JEWELS 133.0 Scabies 04/04/2008 RICHARD CONVENTION SERVICES DIRECTOR, JEWELS 133.0 Scabies 04/04/2008 RICHARD CONVENTION SERVICES DIRECTOR, JEWELS 133.0 Scabies 05/09/2008 ROMANO DO, JEWELS K 785.6 LYMPH NODES ENLARGEMENT 05/09/2008 785.6 LYMPH NODES ENLARGEMENT 05/09/2008 785.6 LYMPH NODES ENLARGEMENT 05/09/2008 MARIA GUADALUPE CONVENTION SERVICES DIRECTOR, TON S 785.6 Lymph Nodes Enlargement 05/09/2008 TAE CONVENTION SERVICES DIRECTOR, MARJORIE Alfredo 785.6 Lymph Nodes Enlargement 05/09/2008 785.6 Lymph Nodes Enlargement 05/09/2008 785.6 Lymph Nodes Enlargement 05/09/2008 785.6 Lymph Nodes Enlargement 05/09/2008 MARIA GUADALUPE CONVENTION SERVICES DIRECTOR, TON S 785.6 Lymph Nodes Enlargement 05/09/2008 MARIA GUADALUPE CONVENTION SERVICES DIRECTOR, TON S 785.6 Lymph Nodes Enlargement 05/09/2008 BIANCA SHAH, ISAIAS 785.6 Lymph Nodes Enlargement 05/09/2008 MARIA GUADALUPE CONVENTION SERVICES DIRECTOR, TON S 785.6 Lymph Nodes Enlargement 05/09/2008 MARIA GUADALUPE CONVENTION SERVICES DIRECTOR, TON S 785.6 Lymph Nodes Enlargement 05/09/2008 MARIA GUADALUPE CONVENTION SERVICES DIRECTOR, TON S 785.6 Lymph Nodes Enlargement 05/09/2008 MARIA GUADALUPE CONVENTION SERVICES DIRECTOR, TON S 785.6 Lymph Nodes Enlargement 05/09/2008 MARIA GUADALUPE CONVENTION SERVICES DIRECTOR, TON S 785.6 Lymph Nodes Enlargement 05/09/2008 DIAZ CONVENTION SERVICES DIRECTOR, CATHERINE Walker 785.6 Lymph Nodes Enlargement 05/09/2008 MARIA GUADALUPE CONVENTION SERVICES DIRECTOR, TON S 785.6 Lymph Nodes Enlargement 05/09/2008 MARIA GUADALUPE CONVENTION SERVICES DIRECTOR, TON S 785.6 Lymph Nodes Enlargement 05/09/2008 MARIA GUADALUPE CONVENTION SERVICES DIRECTOR, TON S 785.6 Lymph Nodes Enlargement 05/09/2008 MARIA GUADALUPE CONVENTION SERVICES DIRECTOR, TON S 785.6 Lymph Nodes Enlargement 05/09/2008 VELASQUEZ KAUR PSYD ANN L 785.6 Lymph Nodes Enlargement 05/09/2008 ROMANO JEWELS OTTO K 785.6 Lymph Nodes Enlargement 05/09/2008 VELASQUEZ KAUR PSYD ANN L 785.6 Lymph Nodes Enlargement 05/09/2008 POST CONVENTION SERVICES DIRECTORSYMONE Ramos 785.6 Lymph Nodes Enlargement 05/09/2008 RICHARD CONVENTION SERVICES DIRECTOR, JEWELS 785.6 Lymph Nodes Enlargement 05/09/2008 RICHARD CONVENTION SERVICES DIRECTOR, JEWELS 785.6 Lymph Nodes Enlargement 05/09/2008 RICHARD CONVENTION SERVICES DIRECTOR, JEWELS 785.6 Lymph Nodes Enlargement 08/07/2008 ROMANO DOSACHAA K 278.02 Overweight 08/07/2008 ROMANO DOSACHAA K 590.9 INFECTION OF KIDNEY 08/07/2008 ROMANO DOSACHAA K 599.0 URINARY TRACT INFECTION 08/07/2008 ROMANO SACHA OTTOA K 696.1 PSORIASIS 08/07/2008 278.02 Overweight 08/07/2008 590.9 INFECTION OF KIDNEY 08/07/2008 599.0 URINARY TRACT INFECTION 08/07/2008 696.1 PSORIASIS 08/07/2008 278.02 Overweight 08/07/2008 590.9 INFECTION OF KIDNEY 08/07/2008 599.0 URINARY TRACT INFECTION 08/07/2008 696.1 PSORIASIS 08/07/2008 TON LERMA APRN S 278.02 Overweight 08/07/2008 TON LERMA APRN S 590.9 Infection Of Kidney 08/07/2008 TON LERMA APRN S 599.0 Urinary Tract Infection 08/07/2008 BRITNEY LERMA APRNA S 696.1 PSORIASIS 08/07/2008 MARJORIE STRONG APRN M 278.02 Overweight 08/07/2008 MARJORIE STRONG APRN 590.9 [...] Infection 08/07/2008 696.1 PSORIASIS 08/07/2008 MARIA GUADALUPE CONVENTION SERVICES DIRECTOR, TON S 278.02 Overweight 08/07/2008 MARIA GUADALUPE CONVENTION SERVICES DIRECTOR, TON S 590.9 Infection Of Kidney 08/07/2008 MARIA GUADALUPE CONVENTION SERVICES DIRECTOR, TON S 599.0 Urinary Tract Infection 08/07/2008 MARIA GUADALUPE [employer] SERVICES DIRECTOR, TON S 696.1 PSORIASIS 08/07/2008 MARIA GUADALUPE [employer] SERVICES DIRECTOR, TON S 278.02 Overweight 08/07/2008 MARIA GUADALUPE [employer]VENTION SERVICES DIRECTOR, TON S 590.9 Infection Of Kidney 08/07/2008 MARIA GUADALUPE [employer]VENT[employer] SERVICES DIRECTOR, TON S 599.0 Urinary Tract Infection 08/07/2008 MARIA GUADALUPE CONVENTION SERVICES DIRECTOR, OTN S 696.1 PSORIASIS 08/07/2008 ISAIAS VALENZUELA MD 278.02 Overweight 08/07/2008 ISAIAS VALENZUELA MD 590.9 Infection Of Kidney 08/07/2008 ISAIAS VALENZUELA MD 599.0 Urinary Tract Infection 08/07/2008 ISAIAS VALENZUELA MD 696.1 PSORIASIS 08/07/2008 MARIA GUADALUPE [employer] SERVICES DIRECTOR, TON S 278.02 Overweight 08/07/2008 MARIA GUADALUPE [employer] SERVICES DIRECTOR, TON S 590.9 Infection Of Kidney 08/07/2008 MARIA GUADALUPE CONVENTION SERVICES DIRECTOR, TON S 599.0 Urinary Tract Infection 08/07/2008 MARIA GUADALUPE [employer]VENTION SERVICES DIRECTOR, TON S 696.1 PSORIASIS 08/07/2008 MARIA GUADALUPE [employer] SERVICES DIRECTOR, TON S 278.02 Overweight 08/07/2008 MARIA GUADALUPE CONVENT[employer] SERVICES DIRECTOR, TON S 590.9 Infection Of Kidney 08/07/2008 MARIA GUADALUPE CONVENTION SERVICES DIRECTOR, TON S 599.0 Urinary Tract Infection 08/07/2008 MARIA GUADALUPE [employer]VENT[employer] SERVICES DIRECTOR, TON S 696.1 PSORIASIS 08/07/2008 MARIA GUADALUPE [employer] SERVICES DIRECTOR, TON S 278.02 Overweight 08/07/2008 MARIA GUADALUPE CONVENT[employer] SERVICES DIRECTOR, TON S 590.9 Infection Of Kidney 08/07/2008 MARIA GUADALUPE CONVENTION SERVICES DIRECTOR, TON S 599.0 Urinary Tract Infection 08/07/2008 MARIA GUADALUPE CONVENTION SERVICES DIRECTOR, TON S 696.1 PSORIASIS 08/07/2008 MARIA GUADALUPE CONVENTION SERVICES DIRECTOR, TON S 278.02 Overweight 08/07/2008 MARIA GUADALUPE CONVENTION SERVICES DIRECTOR, TON S 590.9 Infection Of Kidney 08/07/2008 MARIA GUADALUPE CONVENTION SERVICES DIRECTOR, TON S 599.0 Urinary Tract Infection 08/07/2008 MARIA GUADALUPE CONVENTION SERVICES DIRECTOR, TON S 696.1 PSORIASIS 08/07/2008 MARIA GUADALUPE CONVENTION SERVICES DIRECTOR, TON S 278.02 Overweight 08/07/2008 MARIA GUADALUPE CONVENTION SERVICES DIRECTOR, TON S 590.9 Infection Of Kidney 08/07/2008 MARIA GUADALUPE CONVENTION SERVICES DIRECTOR, TON S 599.0 Urinary Tract Infection 08/07/2008 MARIA GUADALUPE CONVENTION SERVICES DIRECTOR, TON S 696.1 PSORIASIS 08/07/2008 DIAZ CONVENTION SERVICES DIRECTOR, CATHERINE T 278.02 Overweight 08/07/2008 DIAZ CONVENTION SERVICES DIRECTOR, CATHERINE T 590.9 Infection Of Kidney 08/07/2008 DIAZ CONVENTION SERVICES DIRECTOR, CATHERINE T 599.0 Urinary Tract Infection 08/07/2008 DIAZ CONVENTION SERVICES DIRECTOR, CATHERINE T 696.1 PSORIASIS 08/07/2008 MARIA GUADALUPE CONVENTION SERVICES DIRECTOR, TON S 278.02 Overweight 08/07/2008 MARIA GUADALUPE CONVENTION SERVICES DIRECTOR, TON S 590.9 Infection Of Kidney 08/07/2008 MARIA GUADALUPE CONVENTION SERVICES DIRECTOR, TON S 599.0 Urinary Tract Infection 08/07/2008 MARIA GUADALUPE CONVENTION SERVICES DIRECTOR, TON S 696.1 PSORIASIS 08/07/2008 MARIA GUADALUPE CONVENTION SERVICES DIRECTOR, TON S 278.02 Overweight 08/07/2008 MARIA GUADALUPE CONVENTION SERVICES DIRECTOR, TON S 590.9 Infection Of Kidney 08/07/2008 MARIA GUADALUPE CONVENTION SERVICES DIRECTOR, TON S 599.0 Urinary Tract Infection 08/07/2008 MARIA GUADALUPE CONVENTION SERVICES DIRECTOR, TON S 696.1 PSORIASIS 08/07/2008 MARIA GUADALUPE CONVENTION SERVICES DIRECTOR, TON S 278.02 Overweight 08/07/2008 MARIA GUADALUPE CONVENTION SERVICES DIRECTOR, TON S 590.9 Infection Of Kidney 08/07/2008 MARIA GUADALUPE CONVENTION SERVICES DIRECTOR, TON S 599.0 Urinary Tract Infection 08/07/2008 MARIA GUADALUPE CONVENTION SERVICES DIRECTOR, TON S 696.1 PSORIASIS 08/07/2008 MARIA GUADALUPE CONVENTION SERVICES DIRECTOR, TON S 278.02 Overweight 08/07/2008 MARIA GUADALUPE CONVENTION SERVICES DIRECTOR, TON S 590.9 Infection Of Kidney 08/07/2008 MARIA GUADALUPE CONVENTION SERVICES DIRECTOR, TON S 599.0 Urinary Tract Infection 08/07/2008 MARIA GUADALUPE CONVENTION SERVICES DIRECTOR, TON S 696.1 PSORIASIS 08/07/2008 VELASQUEZ KAUR [...] L 590.9 Infection Of Kidney 08/07/2008 VELASQUEZ KARU PSYD ANN L 599.0 Urinary Tract Infection 08/07/2008 VELASQUEZ KAUR PSYD ANN L 696.1 PSORIASIS 08/07/2008 SYMONE POST APRN 278.02 Overweight 08/07/2008 SYMONE POTS APRN 590.9 Infection Of Kidney 08/07/2008 SYMONE POST APRN 599.0 Urinary Tract Infection 08/07/2008 SYMONE POST APRN 696.1 PSORIASIS 08/07/2008 RICHARD CONVENTION SERVICES DIRECTOR, JEWELS 278.02 Overweight 08/07/2008 RICHARD CONVENTION SERVICES DIRECTOR, JEWELS 590.9 Infection Of Kidney 08/07/2008 RICHARD CONVENTION SERVICES DIRECTOR, JEWELS 599.0 Urinary Tract Infection 08/07/2008 RICHARD CONVENTION SERVICES DIRECTOR, JEWELS 696.1 PSORIASIS 08/07/2008 RICHARD CONVENTION SERVICES DIRECTOR JEWELS 278.02 Overweight 08/07/2008 RICHARD CONVENTION SERVICES DIRECTOR, JEWELS 590.9 Infection Of Kidney 08/07/2008 RICHARD CONVENTION SERVICES DIRECTOR, JEWELS 599.0 Urinary Tract Infection 08/07/2008 RICHARD CONVENTION SERVICES DIRECTOR, JEWELS 696.1 PSORIASIS 08/07/2008 RICHARD CONVENTION SERVICES DIRECTOR, JEWELS 278.02 Overweight 08/07/2008 RICHARD CONVENTION SERVICES DIRECTOR, JEWELS 590.9 Infection Of Kidney 08/07/2008 RICHARD CONVENTION SERVICES DIRECTOR, JEWELS 599.0 Urinary Tract Infection 08/07/2008 IRCHARD CONVENTION SERVICES DIRECTOR, JEWELS 696.1 PSORIASIS 08/10/2008 JUAN ANTONIO OTTO, JEWELS K 784.0 HEADACHE 08/10/2008 784.0 HEADACHE 08/10/2008 784.0 HEADACHE 08/10/2008 MARIA GUADALUPE CONVENTION SERVICES DIRECTOR, TON S 784.0 Headache 08/10/2008 MARJORIE STRONG APRN 784.0 Headache 08/10/2008 784.0 Headache 08/10/2008 784.0 Headache 08/10/2008 784.0 Headache 08/10/2008 MARIA GUADALUPE CONVENTION SERVICES DIRECTOR, TON S 784.0 Headache 08/10/2008 MARIA GUADALUPE CONVENTION SERVICES DIRECTOR, TON S 784.0 Headache 08/10/2008 BIANCA SHAH, ISAIAS 784.0 Headache 08/10/2008 MARIA GUADALUPE CONVENTION SERVICES DIRECTOR, TON S 784.0 Headache 08/10/2008 MARIA GUADALUPE CONVENTION SERVICES DIRECTOR, TON S 784.0 Headache 08/10/2008 MARIA GUADALUPE CONVENTION SERVICES DIRECTOR, TON S 784.0 Headache 08/10/2008 MARIA GUADALUPE CONVENTION SERVICES DIRECTOR, TON S 784.0 Headache 08/10/2008 MARIA GUADALUPE CONVENTION SERVICES DIRECTOR, TON S 784.0 Headache 08/10/2008 DIAZ CONVENTION SERVICES DIRECTORCATHERINE Ramos 784.0 Headache 08/10/2008 MARIA GUADALUPE CONVENTION SERVICES DIRECTOR, TON S 784.0 Headache 08/10/2008 MARIA GUADALUPE CONVENTION SERVICES DIRECTOR, TON S 784.0 Headache 08/10/2008 MARIA GUADALUPE CONVENTION SERVICES DIRECTOR, TON S 784.0 Headache 08/10/2008 MARIA GUADALUPE CONVENTION SERVICES DIRECTOR, TON S 784.0 Headache 08/10/2008 VELASQUEZ KAUR PSYD 784.0 Headache 08/10/2008 ROMANO JEWELS OTTO K 784.0 Headache 08/10/2008 VELASQUEZ KAUR PSYD 784.0 Headache 08/10/2008 POST CONVENTION SERVICES DIRECTORSYMONE Ramos 784.0 Headache 08/10/2008 RICHARD CONVENTION SERVICES DIRECTOR, JEWELS 784.0 Headache 08/10/2008 RICHARD CONVENTION SERVICES DIRECTOR, JEWELS 784.0 Headache 08/10/2008 RICHARD CONVENTION SERVICES DIRECTOR, JEWELS 784.0 Headache 08/30/2008 ROMANO DO, JEWELS K 788.1 DYSURIA 08/30/2008 788.1 DYSURIA 08/30/2008 788.1 DYSURIA 08/30/2008 MARIA GUADALUPE CONVENTION SERVICES DIRECTOR, TON S 788.1 Dysuria 08/30/2008 MARJORIE STRONG APRN 788.1 Dysuria 08/30/2008 788.1 Dysuria 08/30/2008 788.1 Dysuria 08/30/2008 788.1 Dysuria 08/30/2008 MARIA GUADALUPE CONVENTION SERVICES DIRECTOR, TON S 788.1 Dysuria 08/30/2008 MARIA GUADALUPE CONVENTION SERVICES DIRECTOR, TON S 788.1 Dysuria 08/30/2008 ISAIAS VALENZUELA MD 788.1 Dysuria 08/30/2008 MARIA GUADALUPE CONVENTION SERVICES DIRECTOR, TON S 788.1 Dysuria 08/30/2008 MARIA GUADALUPE CONVENTION SERVICES DIRECTOR, TON S 788.1 Dysuria 08/30/2008 MARIA GUADALUPE CONVENTION SERVICES DIRECTOR, TON S 788.1 Dysuria 08/30/2008 MARIA GUADALUPE CONVENTION SERVICES DIRECTOR, TON S 788.1 Dysuria 08/30/2008 MARIA GUADALUPE CONVENTION SERVICES DIRECTOR, TON S 788.1 Dysuria 08/30/2008 CATHERINE PERALES APRN 788.1 Dysuria 08/30/2008 MARIA GUADALUPE CONVENTION SERVICES DIRECTOR, TON S 788.1 Dysuria 08/30/2008 MARIA GUADALUPE CONVENTION SERVICES DIRECTOR, TON S 788.1 Dysuria 08/30/2008 MARIA GUADALUPE CONVENTION SERVICES DIRECTOR, TON S 788.1 Dysuria 08/30/2008 MARIA GUADALUPE CONVENTION SERVICES DIRECTOR, TON S 788.1 Dysuria 08/30/2008 VELASQUEZ KAUR PSYD 788.1 Dysuria 08/30/2008 ROMANO DO, JEWELS K 788.1 Dysuria 08/30/2008 VELASQUEZ KAUR PSYD L 788.1 Dysuria 08/30/2008 SYMONE POST APRN 788.1 Dysuria 08/30/2008 RICHARD CONVENTION SERVICES DIRECTOR, JEWELS 788.1 Dysuria 08/30/2008 RICHARD CONVENTION SERVICES DIRECTOR, JEWELS 788.1 Dysuria 08/30/2008 RICHARD CONVENTION SERVICES DIRECTOR, JEWELS 788.1 Dysuria 09/18/2008 ROMANO DO, JEWELS K 789.00 ABDOMINAL PAIN UNSPECIFIED SITE 09/18/2008 789.00 ABDOMINAL PAIN UNSPECIFIED SITE 09/18/2008 789.00 ABDOMINAL PAIN UNSPECIFIED SITE 09/18/2008 BRITNEY LERMA APRNA S 789.00 Abdominal Pain Unspecified Site 09/18/2008 [...] S 789.00 Abdominal Pain Unspecified Site 09/18/2008 QUINTEN LERMA APRNNDA S 789.00 Abdominal Pain Unspecified Site 09/18/2008 MARIA GUADALUPE CONVENTION SERVICES DIRECTOR, TON S 789.00 Abdominal Pain Unspecified Site 09/18/2008 MARIA GUADALUPE VAUGHN, TON S 789.00 Abdominal Pain Unspecified Site 09/18/2008 VELASQUEZ KAUR PSYD ANN L 789.00 Abdominal Pain Unspecified Site 09/18/2008 ROMANO JEWELS OTTO K 789.00 Abdominal Pain Unspecified Site 09/18/2008 VELASQUEZ KAUR PSYD ANN L 789.00 Abdominal Pain Unspecified Site 09/18/2008 POST CONVENTION SERVICES DIRECTORSYMONE Ramos 789.00 Abdominal Pain Unspecified Site 09/18/2008 RICHARD CONVENTION SERVICES DIRECTOR, JEWELS 789.00 Abdominal Pain Unspecified Site 09/18/2008 RICHARD CONVENTION SERVICES DIRECTOR, JEWELS 789.00 Abdominal Pain Unspecified Site 09/18/2008 RICHARD CONVENTION SERVICES DIRECTOR, JEWELS 789.00 Abdominal Pain Unspecified Site 10/18/2008 [...] ISAIAS VALENZUELA MD 009.1 Gastroenteritis Infect 10/18/2008 MARIA GUADALUPE VAUGHN, TON S 009.1 Gastroenteritis Infect 10/18/2008 MARIA GUADALUPE VAUGHN, TON S 009.1 Gastroenteritis Infect 10/18/2008 MARIA GUADALUPE VAUGHN, TON S 009.1 Gastroenteritis Infect 10/18/2008 MARIA GUADALUPE VAUGHN, TON S 009.1 Gastroenteritis Infect 10/18/2008 MARIA GUADALUPE VAUGHN TON S 009.1 Gastroenteritis Infect 10/18/2008 CATHERINE PERALES APRN 009.1 Gastroenteritis Infect 10/18/2008 QUINTEN LERMA APRNNDA S 009.1 Gastroenteritis Infect 10/18/2008 BRTINEY LERMA APRNA S 009.1 Gastroenteritis Infect 10/18/2008 BRITNEY LERMA APRNA S 009.1 Gastroenteritis Infect 10/18/2008 QUINTEN LERMA APRNNDA S 009.1 Gastroenteritis Infect 10/18/2008 VELASQUEZ KAUR PSYD ANN L 009.1 Gastroenteritis Infect 10/18/2008 JEWELS ROMANO DO 009.1 Gastroenteritis Infect 10/18/2008 VELASQUEZ KAUR PSYD ANN L 009.1 Gastroenteritis Infect 10/18/2008 POST SYMONE VAUGHN 009.1 Gastroenteritis Infect 10/18/2008 RICHARD CONVENTION SERVICES DIRECTOR, JEWELS 009.1 Gastroenteritis Infect 10/18/2008 RICHARD CONVENTION SERVICES DIRECTOR JEWELS 009.1 Gastroenteritis Infect 10/18/2008 RICHARD CONVENTION SERVICES DIRECTOR, JEWELS 009.1 Gastroenteritis Infect 10/20/2008 JEWELS ROMANO DO K 008.62 GASTROENTERITIS VIRAL ADENOVIRUS 10/20/2008 008.62 [...] 008.62 Gastroenteritis Viral Adenovirus 10/20/2008 MARIA GUADALUPE VAUGHN TON S 008.62 Gastroenteritis Viral Adenovirus 10/20/2008 CATHERINE PERALES APRN 008.62 Gastroenteritis Viral Adenovirus 10/20/2008 QUINTEN LERMA APRNNDA S 008.62 Gastroenteritis Viral Adenovirus 10/20/2008 BRITNEY LERMA APRNA S 008.62 Gastroenteritis Viral Adenovirus 10/20/2008 QUINTEN LERMA APRNNDA S 008.62 Gastroenteritis Viral Adenovirus 10/20/2008 MARIA GUADALUPEGARY VAUGHN, TON S 008.62 Gastroenteritis Viral Adenovirus 10/20/2008 VELASQUEZ KAUR PSYD ANN L 008.62 Gastroenteritis Viral Adenovirus 10/20/2008 JEWELS ROMANO DO K 008.62 Gastroenteritis Viral Adenovirus 10/20/2008 VELASQUEZ KAUR PSYD ANN L 008.62 Gastroenteritis Viral Adenovirus 10/20/2008 POST SYMONE VAUGHN 008.62 Gastroenteritis Viral Adenovirus 10/20/2008 RICHARD CONVENTION SERVICES DIRECTOR, JEWELS 008.62 Gastroenteritis Viral Adenovirus 10/20/2008 RICHARD CONVENTION SERVICES DIRECTOR, JEWELS 008.62 Gastroenteritis Viral Adenovirus 10/20/2008 RICHARD CONVENTION SERVICES DIRECTOR, JEWELS 008.62 Gastroenteritis Viral Adenovirus 05/08/2009 JEWELS ROMANO DO K 461.1 ACUTE FRONTAL SINUSITIS 05/08/2009 JEWELS ROMANO DO K 719.49 PAIN IN JOINT, MULTIPLE SITES 05/08/2009 461.1 ACUTE FRONTAL SINUSITIS 05/08/2009 719.49 PAIN IN JOINT , MULTIPLE SITES 05/08/2009 461.1 ACUTE FRONTAL SINUSITIS 05/08/2009 719.49 PAIN IN JOINT , MULTIPLE SITES 05/08/2009 TON LERMA APRN S 461.1 Acute Frontal Sinusitis 05/08/2009 TON LERMA APRN S 719.49 PAIN IN JOINT, MULTIPLE SITES [...] APRN S 461.1 Acute Frontal Sinusitis 05/08/2009 MARIA GUADALUPE CONVENTION SERVICES DIRECTOR, TON S 719.49 PAIN IN JOINT, MULTIPLE SITES 05/08/2009 MARIA GUADALUPE CONVENTION SERVICES DIRECTOR, TON S 461.1 Acute Frontal Sinusitis 05/08/2009 MARIA GUADALUPE CONVENTION SERVICES DIRECTOR, TON S 719.49 PAIN IN JOINT, MULTIPLE SITES 05/08/2009 ISAIAS VALENZUELA MD 461.1 Acute Frontal Sinusitis 05/08/2009 ISAIAS VALENZUELA MD 719.49 PAIN IN JOINT, MULTIPLE SITES 05/08/2009 MARIA GUADALUPE CONVENTION SERVICES DIRECTOR, TON S 461.1 Acute Frontal Sinusitis 05/08/2009 MARIA GUADALUPE CONVENTION SERVICES DIRECTOR, TON S 719.49 PAIN IN JOINT, MULTIPLE SITES 05/08/2009 MARIA GUADALUPE CONVENTION SERVICES DIRECTOR, TON S 461.1 Acute Frontal Sinusitis 05/08/2009 MARIA GUADALUPE CONVENTION SERVICES DIRECTOR, TON S 719.49 PAIN IN JOINT, MULTIPLE SITES 05/08/2009 MARIA GUADALUPE CONVENTION SERVICES DIRECTOR, TON S 461.1 Acute Frontal Sinusitis 05/08/2009 MARIA GUADALUPE CONVENTION SERVICES DIRECTOR, TON S 719.49 PAIN IN JOINT, MULTIPLE SITES 05/08/2009 MARIA GUADALUPE CONVENTION SERVICES DIRECTOR, TON S 461.1 Acute Frontal Sinusitis 05/08/2009 MARIA GUADALUPE CONVENTION SERVICES DIRECTOR, TON S 719.49 PAIN IN JOINT, MULTIPLE SITES 05/08/2009 MARIA GUADALUPE CONVENTION SERVICES DIRECTOR, TON S 461.1 Acute Frontal Sinusitis 05/08/2009 MARIA GUADALUPE CONVENTION SERVICES DIRECTOR, TON S 719.49 PAIN IN JOINT, MULTIPLE SITES 05/08/2009 DIAZ CONVENTION SERVICES DIRECTORCATHERINE Ramos T 461.1 Acute Frontal Sinusitis 05/08/2009 DIAZ CONVENTION SERVICES DIRECTOR CATHERINE T 719.49 PAIN IN JOINT, MULTIPLE SITES 05/08/2009 MARIA GUADALUPE CONVENTION SERVICES DIRECTOR, TON S 461.1 Acute Frontal Sinusitis 05/08/2009 MARIA GUADALUPE CONVENTION SERVICES DIRECTOR, TON S 719.49 PAIN IN JOINT, MULTIPLE SITES 05/08/2009 MARIA GUADALUPE CONVENTION SERVICES DIRECTOR, TON S 461.1 Acute Frontal Sinusitis 05/08/2009 MARIA GUADALUPE CONVENTION SERVICES DIRECTOR, TON S 719.49 PAIN IN JOINT, MULTIPLE SITES 05/08/2009 MARIA GUADALUPE CONVENTION SERVICES DIRECTOR, TON S 461.1 Acute Frontal Sinusitis 05/08/2009 TON LERMA APRN S 719.49 PAIN IN JOINT, MULTIPLE SITES 05/08/2009 TON LERMA APRN S 461.1 Acute Frontal Sinusitis 05/08/2009 BRITNEY LERMA APRNA S 719.49 PAIN IN JOINT, MULTIPLE SITES 05/08/2009 VELASQUEZ KAUR PSYD ANN L 461.1 Acute Frontal Sinusitis 05/08/2009 VELASQUEZ KAUR PSYD ANN L 719.49 PAIN IN JOINT, MULTIPLE SITES 05/08/2009 JEWELS ROMANO DO K 461.1 Acute Frontal Sinusitis 05/08/2009 JEWELS ROMANO DO K 719.49 PAIN IN JOINT, MULTIPLE SITES 05/08/2009 VELASQUEZ KAUR PSYD ANN L 461.1 Acute Frontal Sinusitis 05/08/2009 VELASQUEZ KAUR PSYD ANN L 719.49 PAIN IN JOINT, MULTIPLE SITES 05/08/2009 POST SYMONE VAUGHN 461.1 Acute Frontal Sinusitis 05/08/2009 POST SYMONE VAUGHN 719.49 PAIN IN JOINT, MULTIPLE SITES 05/08/2009 RICHARD CONVENTION SERVICES DIRECTOR, JEWELS 461.1 Acute Frontal Sinusitis 05/08/2009 RICHARD CONVENTION SERVICES DIRECTOR, JEWELS 719.49 PAIN IN JOINT, MULTIPLE SITES 05/08/2009 RICHARD CONVENTION SERVICES DIRECTOR, JEWELS 461.1 Acute Frontal Sinusitis 05/08/2009 RICHARD CONVENTION SERVICES DIRECTOR, JEWELS 719.49 PAIN IN JOINT, MULTIPLE SITES 05/08/2009 RICHARD CONVENTION SERVICES DIRECTOR, JEWELS 461.1 Acute Frontal Sinusitis 05/08/2009 RICHARD CONVENTION SERVICES DIRECTOR, JEWELS 719.49 PAIN IN JOINT, MULTIPLE SITES 05/24/2009 JEWELS ROMANO DO K 465.9 UPPER RESPIRATORY INFECTION 05/24/2009 465.9 UPPER RESPIRATORY INFECTION 05/24/2009 465.9 UPPER RESPIRATORY INFECTION 05/24/2009 TON LERMA APRN 465.9 Upper Respiratory Infection 05/24/2009 MARJORIE STRONG APRN 465.9 Upper Respiratory Infection 05/24/2009 465.9 Upper Respiratory Infection 05/24/2009 465.9 Upper Respiratory Infection 05/24/2009 465.9 Upper Respiratory Infection 05/24/2009 MARIA GUADALUPE CONVENTION SERVICES DIRECTOR, TON S 465.9 Upper Respiratory Infection 05/24/2009 MARIA GUADALUPE CONVENTION SERVICES DIRECTOR, TON S 465.9 Upper Respiratory Infection 05/24/2009 BIANCA SHAH, ISAIAS 465.9 Upper Respiratory Infection 05/24/2009 MARIA GUADALUPE CONVENTION SERVICES DIRECTOR, TON S 465.9 Upper Respiratory Infection 05/24/2009 MARIA GUADALUPE CONVENTION SERVICES DIRECTOR, TON S 465.9 Upper Respiratory Infection 05/24/2009 MARIA GUADALUPE CONVENTION SERVICES DIRECTOR, TON S 465.9 Upper Respiratory Infection 05/24/2009 MARIA GUADALUPE CONVENTION SERVICES DIRECTOR, TON S 465.9 Upper Respiratory Infection 05/24/2009 MARIA GUADALUPE CONVENTION SERVICES DIRECTOR, TON S 465.9 Upper Respiratory Infection 05/24/2009 DIAZ CONVENTION SERVICES DIRECTORCATHERINE Ramos 465.9 Upper Respiratory Infection 05/24/2009 MARIA GUADALUPE CONVENTION SERVICES DIRECTOR, TON S 465.9 Upper Respiratory Infection 05/24/2009 MARIA GUADALUPE CONVENTION SERVICES DIRECTOR, TON S 465.9 Upper Respiratory Infection 05/24/2009 MARIA GUADALUPE CONVENTION SERVICES DIRECTOR, TON S 465.9 Upper Respiratory Infection 05/24/2009 MARIA GUADALUPE CONVENTION SERVICES DIRECTOR, TON S 465.9 Upper Respiratory Infection 05/24/2009 VELASQUEZ KAUR PSYD L 465.9 Upper Respiratory Infection 05/24/2009 JEWELS ROMANO DO K 465.9 Upper Respiratory Infection 05/24/2009 VELASQUEZ KAUR PSYD ANN L 465.9 Upper Respiratory Infection 05/24/2009 SEJAL CONVENTION SERVICES DIRECTORSYMONE Ramos 465.9 Upper Respiratory Infection 05/24/2009 RICHARD CONVENTION SERVICES DIRECTOR, JEWELS 465.9 Upper Respiratory Infection 05/24/2009 RICHARD CONVENTION SERVICES DIRECTOR, JEWELS 465.9 Upper Respiratory Infection 05/24/2009 RICHARD CONVENTION SERVICES DIRECTOR, JEWELS 465.9 Upper Respiratory Infection 06/01/2009 JEWELS [...] APRN M 401.1 HYPERTENSION, BENIGN ESSENTIAL 06/01/2009 TAE VAUGHN MARJORIE M 786.59 Other Chest Pain 06/01/2009 [...] 786.59 Other Chest Pain 06/01/2009 MARIA GUADALUPE VAUGHN TON S 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 OF DRUGS, TOBACCO USE DISORDER 06/01/2009 MARIA GUADALUPE VAUGHN, TON S 401.1 HYPERTENSION, BENIGN ESSENTIAL 06/01/2009 MARIA GUADALUPE VAUGHN, TON S 786.59 Other Chest Pain 06/01/2009 MARIA GUADALUPE VAUGHN TON S 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 OF DRUGS, TOBACCO USE DISORDER 06/01/2009 MARIA GUADALUPE VAUGHN, TON S 401.1 HYPERTENSION, BENIGN ESSENTIAL 06/01/2009 MARIA GUADALUPE VAUGHN, TON S 786.59 Other Chest Pain 06/01/2009 ISAIAS VALENZUELA MD 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 OF DRUGS, TOBACCO USE DISORDER 06/01/2009 ISAIAS VALENZUELA MD 401.1 HYPERTENSION, BENIGN ESSENTIAL 06/01/2009 ISAIAS VALENZUELA MD 786.59 Other Chest Pain 06/01/2009 QUINTEN LERMA APRNNDA S 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 OF DRUGS, TOBACCO USE DISORDER 06/01/2009 MARIA GUADALUPE CONVENTION SERVICES DIRECTOR, TON S 401.1 HYPERTENSION, BENIGN ESSENTIAL 06/01/2009 MARIA GUADALUPE CONVENTION SERVICES DIRECTOR, TON S 786.59 Other Chest Pain 06/01/2009 MARIA GUADALUPE CONVENTION SERVICES DIRECTOR, TON S 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 OF DRUGS, TOBACCO USE DISORDER 06/01/2009 MARIA GUADALUPE CONVENTION SERVICES DIRECTOR, TON S 401.1 HYPERTENSION, BENIGN ESSENTIAL 06/01/2009 MARIA GUADALUPE CONVENTION SERVICES DIRECTOR, TON S 786.59 Other Chest Pain 06/01/2009 MARIA GUADALUPE CONVENTION SERVICES DIRECTOR, TON S 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 OF DRUGS, TOBACCO USE DISORDER 06/01/2009 MARIA GUADALUPE CONVENTION SERVICES DIRECTOR, TON S 401.1 HYPERTENSION, BENIGN ESSENTIAL 06/01/2009 MARIA GUADALUPE CONVENTION SERVICES DIRECTOR, TON S 786.59 Other Chest Pain 06/01/2009 MARIA GUADALUPE CONVENTION SERVICES DIRECTOR, TON S 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 OF DRUGS, TOBACCO USE DISORDER 06/01/2009 MARIA GUADALUPE CONVENTION SERVICES DIRECTOR, TON S 401.1 HYPERTENSION, BENIGN ESSENTIAL 06/01/2009 MARIA GUADALUPE CONVENTION SERVICES DIRECTOR, TON S 786.59 Other Chest Pain 06/01/2009 MARIA GUADALUPE CONVENTION SERVICES DIRECTOR, TON S 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 OF DRUGS, TOBACCO USE DISORDER 06/01/2009 MARIA GUADALUPE CONVENTION SERVICES DIRECTOR, TON S 401.1 HYPERTENSION, BENIGN ESSENTIAL 06/01/2009 MARIA GUADALUPE CONVENTION SERVICES DIRECTOR, TON S 786.59 Other Chest Pain 06/01/2009 CATHERINE PERALES APRN T 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 OF DRUGS, TOBACCO USE DISORDER 06/01/2009 CATHERINE PERALES APRN T 401.1 HYPERTENSION, BENIGN ESSENTIAL 06/01/2009 CATHERINE PERALES APRN T 786.59 Other Chest Pain 06/01/2009 MARIA GUADALUPE CONVENTION SERVICES DIRECTOR, TON S 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 OF DRUGS, TOBACCO USE DISORDER 06/01/2009 MARIA GUADALUPE CONVENTION SERVICES DIRECTOR, TON S 401.1 HYPERTENSION, BENIGN ESSENTIAL 06/01/2009 MARIA GUADALUPE CONVENTION SERVICES DIRECTOR, TON S 786.59 Other Chest Pain 06/01/2009 MARIA GUADALUPE CONVENTION SERVICES DIRECTOR, TON S 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 OF DRUGS, TOBACCO USE DISORDER 06/01/2009 MARIA GUADALUPE CONVENTION SERVICES DIRECTOR, TON S 401.1 HYPERTENSION, BENIGN ESSENTIAL 06/01/2009 MARIA GUADALUPE CONVENTION SERVICES DIRECTOR, TON S 786.59 Other Chest Pain 06/01/2009 MARIA GUADALUPE CONVENTION SERVICES DIRECTOR, TON S 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 OF DRUGS, TOBACCO USE DISORDER 06/01/2009 MARIA GUADALUPE CONVENTION SERVICES DIRECTOR, TON S 401.1 HYPERTENSION, BENIGN ESSENTIAL 06/01/2009 MARIA GUADALUPE CONVENTION SERVICES DIRECTOR, TON S 786.59 Other Chest Pain 06/01/2009 MARIA GUADALUPE CONVENTION SERVICES DIRECTOR, TON S 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 OF DRUGS, TOBACCO USE DISORDER 06/01/2009 MARIA GUADALUPE CONVENTION SERVICES DIRECTOR, TON S 401.1 HYPERTENSION, BENIGN ESSENTIAL 06/01/2009 MARIA GUADALUPE CONVENTION SERVICES DIRECTOR, TON S 786.59 Other Chest Pain 06/01/2009 VELASQUEZ KAUR PSYD ANN L 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 OF DRUGS, TOBACCO USE DISORDER 06/01/2009 VELASQUEZ KAUR PSYD L 401.1 HYPERTENSION, BENIGN ESSENTIAL 06/01/2009 VELASQUEZ KAUR PSYD ANN L 786.59 Other Chest Pain 06/01/2009 SACHA ROMANO DOA K 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 OF DRUGS, TOBACCO USE DISORDER 06/01/2009 SACHA ROMANO DOA K 401.1 HYPERTENSION, BENIGN ESSENTIAL 06/01/2009 ROMANO [...] APRN 401.1 HYPERTENSION, BENIGN ESSENTIAL 06/01/2009 RICHARD CONVENTION SERVICES DIRECTOR, JEWELS 786.59 Other Chest Pain 06/01/2009 RICHARD CONVENTION SERVICES DIRECTOR, JEWELS 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 OF DRUGS, TOBACCO USE DISORDER 06/01/2009 RICHARD CONVENTION SERVICES DIRECTOR, JEWELS 401.1 HYPERTENSION, BENIGN ESSENTIAL 06/01/2009 RICHARD CONVENTION SERVICES DIRECTOR, EJWELS 786.59 Other Chest Pain 06/01/2009 RICHARD CONVENTION SERVICES DIRECTOR, JEWELS 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 OF DRUGS, TOBACCO USE DISORDER 06/01/2009 RICHARD CONVENTION SERVICES DIRECTOR, JEWELS 401.1 HYPERTENSION, BENIGN ESSENTIAL 06/01/2009 RICHARD CONVENTION SERVICES DIRECTOR, JEWELS 786.59 Other Chest Pain 06/18/2009 JEWELS ROMANO DO 787.02 NAUSEA ALONE 06/18/2009 787.02 NAUSEA ALONE 06/18/2009 787.02 NAUSEA ALONE 06/18/2009 MARIA GUADALUPE VAUGHN, TON S 787.02 Nausea Alone 06/18/2009 MARJORIE STRONG APRN 787.02 Nausea Alone 06/18/2009 787.02 Nausea Alone 06/18/2009 787.02 Nausea Alone 06/18/2009 787.02 Nausea Alone 06/18/2009 MARIA GUADALUPE VAUGHN, TON S 787.02 Nausea Alone 06/18/2009 MARIA GUADALUPE VAUGHN, TON S 787.02 Nausea Alone 06/18/2009 ISAIAS VALENZUELA MD 787.02 Nausea Alone 06/18/2009 MARIA GUADALUPE VAUGHN, TON S 787.02 Nausea Alone 06/18/2009 MARIA GUADALUPE CONVENTION SERVICES DIRECTOR, TON S 787.02 Nausea Alone 06/18/2009 MARIA GUADALUPE VAUGHN, TON S 787.02 Nausea Alone 06/18/2009 MARIA GUADALUPE CHAUDHARIN, TON S 787.02 Nausea Alone 06/18/2009 MARIA GUADALUPE [employer]VENTION SERVICES DIRECTOR, TON S 787.02 Nausea Alone 06/18/2009 CATHERINE PERALES APRN 787.02 Nausea Alone 06/18/2009 MARIA GUADALUPE CONVENTION SERVICES DIRECTOR, TON S 787.02 Nausea Alone 06/18/2009 MARIA GUADALUPE CONVENTION SERVICES DIRECTOR, TON S 787.02 Nausea Alone 06/18/2009 MARIA GUADALUPE CONVENTION SERVICES DIRECTOR, TON S 787.02 Nausea Alone 06/18/2009 MARIA GUADALUPE CONVENTION SERVICES DIRECTOR, TON S 787.02 Nausea Alone 06/18/2009 VELASQUEZ KAUR PSYD L 787.02 Nausea Alone 06/18/2009 JEWELS ROMANO DO 787.02 Nausea Alone 06/18/2009 VELASQUEZ KAUR PSYD L 787.02 Nausea Alone 06/18/2009 POST CONVENTION SERVICES DIRECTOR, SYMONE Waldrop 787.02 Nausea Alone 06/18/2009 RICHARD CONVENTION SERVICES DIRECTOR, JEWELS 787.02 Nausea Alone 06/18/2009 RICHARD CONVENTION SERVICES DIRECTOR, JEWELS 787.02 Nausea Alone 06/18/2009 RICHARD CONVENTION SERVICES DIRECTOR, JEWELS 787.02 Nausea Alone 07/25/2009 JEWELS ROMANO DO 493.90 ASTHMA, UNSPECIFIED, UNSPECIFIED 07/25/2009 493.90 ASTHMA, UNSPECIFIED, UNSPECIFIED 07/25/2009 493.90 ASTHMA, UNSPECIFIED, UNSPECIFIED 07/25/2009 MARIA GUADALUPE CONVENTION SERVICES DIRECTOR, TON S 493.90 ASTHMA, UNSPECIFIED, UNSPECIFIED 07/25/2009 MARJORIE STRONG APRN 493.90 ASTHMA, UNSPECIFIED, UNSPECIFIED 07/25/2009 493.90 ASTHMA, UNSPECIFIED, UNSPECIFIED 07/25/2009 493.90 ASTHMA, UNSPECIFIED, UNSPECIFIED 07/25/2009 493.90 ASTHMA, UNSPECIFIED, UNSPECIFIED 07/25/2009 MARIA GUADALUPE CONVENTION SERVICES DIRECTOR, TON S 493.90 ASTHMA, UNSPECIFIED, UNSPECIFIED 07/25/2009 MARIA GUADALUPE CONVENTION SERVICES DIRECTOR, TON S 493.90 ASTHMA, UNSPECIFIED, UNSPECIFIED 07/25/2009 BIANCA SHAH, ISAIAS 493.90 ASTHMA, UNSPECIFIED, UNSPECIFIED 07/25/2009 MARIA GUADALUPE CONVENTION SERVICES DIRECTOR, TON S 493.90 ASTHMA, UNSPECIFIED, UNSPECIFIED 07/25/2009 MARIA GUADALUPE CONVENTION SERVICES DIRECTOR, TON S 493.90 ASTHMA, UNSPECIFIED, UNSPECIFIED 07/25/2009 MARIA GUADALUPE CONVENTION SERVICES DIRECTOR, TON S 493.90 ASTHMA, UNSPECIFIED, UNSPECIFIED 07/25/2009 MARIA GUADALUPE CONVENTION SERVICES DIRECTOR, TON S 493.90 ASTHMA, UNSPECIFIED, UNSPECIFIED 07/25/2009 MARIA GUADALUPE CONVENTION SERVICES DIRECTOR, TON S 493.90 ASTHMA, UNSPECIFIED, UNSPECIFIED 07/25/2009 CATHERINE PERALES APRN 493.90 ASTHMA, UNSPECIFIED, UNSPECIFIED 07/25/2009 MARIA GUADALUPE CONVENTION SERVICES DIRECTOR, TON S 493.90 ASTHMA, UNSPECIFIED, UNSPECIFIED 07/25/2009 MARIA GUADALUPE CONVENTION SERVICES DIRECTOR, TON S 493.90 ASTHMA, UNSPECIFIED, UNSPECIFIED 07/25/2009 MARIA GUADALUPE CONVENTION SERVICES DIRECTOR, TON S 493.90 ASTHMA, UNSPECIFIED, UNSPECIFIED 07/25/2009 MARIA GUADALUPE CONVENTION SERVICES DIRECTOR, TON S 493.90 ASTHMA, UNSPECIFIED, UNSPECIFIED 07/25/2009 VELASQUEZ KAUR PSYD 493.90 ASTHMA, UNSPECIFIED, UNSPECIFIED 07/25/2009 JEWELS ROMANO DO 493.90 ASTHMA, UNSPECIFIED, UNSPECIFIED 07/25/2009 VELASQUEZ KAUR PSYD 493.90 ASTHMA, UNSPECIFIED, UNSPECIFIED 07/25/2009 SYMONE POST APRN 493.90 ASTHMA, UNSPECIFIED, UNSPECIFIED 07/25/2009 RICHARD CONVENTION SERVICES DIRECTOR, JEWELS 493.90 ASTHMA, UNSPECIFIED, UNSPECIFIED 07/25/2009 RICHARD CONVENTION SERVICES DIRECTOR, JEWELS 493.90 ASTHMA, UNSPECIFIED, UNSPECIFIED 07/25/2009 RICHARD CONVENTION SERVICES DIRECTOR, JEWELS 493.90 ASTHMA, UNSPECIFIED, UNSPECIFIED 12/27/2009 JEWELS [...] FAM HX DIABETES MELLITUS 12/27/2009 MARIA GUADALUPE CONVENTION SERVICES DIRECTOR, TON S 112.3 Candidiasis, Of Skin And Nails 12/27/2009 MARIA GUADALUPE VAUGHN, TON S 780.79 fatigue 12/27/2009 MARIA GUADALUPE CONVENTION SERVICES DIRECTOR, TON S V18.0 FAM HX DIABETES MELLITUS [...] FAM HX DIABETES MELLITUS 12/27/2009 MARIA GUADALUPE CHAUDHARIN TON S 112.3 Candidiasis, Of Skin And Nails 12/27/2009 MARIA GUADALUPE VAUGHN TON S 780.79 fatigue 12/27/2009 MARIA GUADALUPE VAUGHN, TON S V18.0 FAM HX DIABETES MELLITUS 12/27/2009 MARIA GUADALUPE CHAUDHARIN TON S 112.3 Candidiasis, Of Skin And Nails 12/27/2009 MARIA GUADALUPE VAUGHN TON S 780.79 fatigue 12/27/2009 MARIA GUADALUPE VAUGHN TNO S V18.0 FAM HX DIABETES MELLITUS 12/27/2009 ISAIAS VALENZUELA MD 112.3 Candidiasis, Of Skin And Nails 12/27/2009 ISAIAS VALENZUELA MD 780.79 fatigue 12/27/2009 ISAIAS VALENZUELA MD V18.0 FAM HX DIABETES MELLITUS 12/27/2009 MARIA GUADALUPE VAUGHN TON S 112.3 Candidiasis, Of Skin And Nails 12/27/2009 MARIA GUADALUPE VAUGHN TON S 780.79 fatigue 12/27/2009 MARIA GUADALUPE VAUGHN TON S V18.0 FAM HX DIABETES MELLITUS 12/27/2009 MARIA GUADALUPE VAUGHN, TON S 112.3 Candidiasis, Of Skin And Nails 12/27/2009 MARIA GUADALUPE VAUGHN TON S 780.79 fatigue 12/27/2009 MARIA GUADALUPE VAUGHN, TON S V18.0 FAM HX DIABETES MELLITUS 12/27/2009 MARIA GUADALUPE VAUGHN TON S 112.3 Candidiasis, Of Skin And Nails 12/27/2009 MARIA GUADALUPE VAUGHN TON S 780.79 FATIGUE 12/27/2009 MARIA GUADALUPE CONVENTION SERVICES DIRECTOR, TON S V18.0 FAM HX DIABETES MELLITUS 12/27/2009 MARIA GUADALUPE CONVENTION SERVICES DIRECTOR, TON S 112.3 Candidiasis, Of Skin And Nails 12/27/2009 MARIA GUADALUPE CONVENTION SERVICES DIRECTOR, TON S 780.79 FATIGUE 12/27/2009 MARIA GUADALUPE CONVENTION SERVICES DIRECTOR, TON S V18.0 FAM HX DIABETES MELLITUS 12/27/2009 MARIA GUADALUPE CONVENTION SERVICES DIRECTOR, TON S 112.3 Candidiasis, Of Skin And Nails 12/27/2009 MARIA GUADALUPE CONVENTION SERVICES DIRECTOR, TON S 780.79 FATIGUE 12/27/2009 MARIA GUADALUPE CONVENTION SERVICES DIRECTOR, TON S V18.0 FAM HX DIABETES MELLITUS 12/27/2009 CATHERINE PERALES APRN T 112.3 Candidiasis, Of Skin And Nails 12/27/2009 DIAZ CHAUDHARINCATHERINE T 780.79 FATIGUE 12/27/2009 CATHERINE PERALES APRN T V18.0 FAM HX DIABETES MELLITUS 12/27/2009 MARIA GUADALUPE CONVENTION SERVICES DIRECTOR, TON S 112.3 Candidiasis, Of Skin And Nails 12/27/2009 MARIA GUADALUPE CONVENTION SERVICES DIRECTOR, TON S 780.79 FATIGUE 12/27/2009 MARIA GUADALUPE CONVENTION SERVICES DIRECTOR, TON S V18.0 FAM HX DIABETES MELLITUS 12/27/2009 MARIA GUADALUPE CONVENTION SERVICES DIRECTOR, TON S 112.3 Candidiasis, Of Skin And Nails 12/27/2009 MARIA GUADALUPE CONVENTION SERVICES DIRECTOR, TON S 780.79 FATIGUE 12/27/2009 MARIA GUADALUPE CONVENTION SERVICES DIRECTOR, TON S V18.0 FAM HX DIABETES MELLITUS 12/27/2009 MARIA GUADALUPE CONVENTION SERVICES DIRECTOR, TON S 112.3 Candidiasis, Of Skin And Nails 12/27/2009 MARIA GUADALUPE CONVENTION SERVICES DIRECTOR, TON S 780.79 FATIGUE 12/27/2009 MARIA GUADALUPE CONVENTION SERVICES DIRECTOR, TON S V18.0 FAM HX DIABETES MELLITUS 12/27/2009 MARIA GUADALUPE CONVENTION SERVICES DIRECTOR, TON S 112.3 Candidiasis, Of Skin And Nails 12/27/2009 MARIA GUADALUPE CONVENTION SERVICES DIRECTOR, TON S 780.79 FATIGUE 12/27/2009 MARIA GUADALUPE CONVENTION SERVICES DIRECTOR, TON S V18.0 FAM HX DIABETES MELLITUS [...] V18.0 FAM HX DIABETES MELLITUS 12/27/2009 RICHARD CONVENTION SERVICES DIRECTOR, JEWELS 112.3 Candidiasis, Of Skin And Nails 12/27/2009 RICHARD CONVENTION SERVICES DIRECTOR, JEWELS 780.79 FATIGUE 12/27/2009 RICHARD CONVENTION SERVICES DIRECTOR, JEWELS V18.0 FAM HX DIABETES MELLITUS 12/27/2009 RICHARD CONVENTION SERVICES DIRECTOR, JEWELS 112.3 Candidiasis, Of Skin And Nails 12/27/2009 RICHARD CONVENTION SERVICES DIRECTOR, JEWELS 780.79 FATIGUE 12/27/2009 RICHARD CONVENTION SERVICES DIRECTOR, JEWELS V18.0 FAM HX DIABETES MELLITUS 12/27/2009 RICHARD CONVENTION SERVICES DIRECTOR, JEWELS 112.3 Candidiasis, Of Skin And Nails 12/27/2009 RICHARD CONVENTION SERVICES DIRECTOR, JEWELS 780.79 FATIGUE 12/27/2009 RICHARD CONVENTION SERVICES DIRECTOR, JEWELS V18.0 FAM HX DIABETES MELLITUS 01/14/2010 [...] DERMATITIS AND RELATED CONDITIONS 01/14/2010 MARIA GUADALUPE CONVENTION SERVICES DIRECTOR, TON S 691.8 OTHER ATOPIC DERMATITIS AND RELATED CONDITIONS 01/14/2010 MARIA GUADALUPE CONVENTION SERVICES DIRECTOR, TON S 691.8 OTHER ATOPIC DERMATITIS AND RELATED CONDITIONS 01/14/2010 ISAIAS VALENZUELA MD 691.8 OTHER ATOPIC DERMATITIS AND RELATED CONDITIONS 01/14/2010 MARIA GUADALUPE CONVENTION SERVICES DIRECTOR, TON S 691.8 OTHER ATOPIC DERMATITIS AND RELATED CONDITIONS 01/14/2010 MARIA GUADALUPE CONVENTION SERVICES DIRECTOR, TON S 691.8 OTHER ATOPIC DERMATITIS AND RELATED CONDITIONS 01/14/2010 MARIA GUADALUPE CONVENTION SERVICES DIRECTOR, TON S 691.8 OTHER ATOPIC DERMATITIS AND RELATED CONDITIONS 01/14/2010 MARIA GUADALUPE CONVENTION SERVICES DIRECTOR, TON S 691.8 OTHER ATOPIC DERMATITIS AND RELATED CONDITIONS 01/14/2010 MARIA GUADALUPE VAUGHN, TON S 691.8 OTHER ATOPIC DERMATITIS AND RELATED CONDITIONS 01/14/2010 CATHERINE PERALES APRN 691.8 OTHER ATOPIC DERMATITIS AND RELATED CONDITIONS 01/14/2010 MARIA GUADALUPE CONVENTION SERVICES DIRECTOR, TON S 691.8 OTHER ATOPIC DERMATITIS AND RELATED CONDITIONS 01/14/2010 MARIA GUADALUPE VAUGHN, TNO S 691.8 OTHER ATOPIC DERMATITIS AND RELATED CONDITIONS 01/14/2010 MARIA GUADALUPE CONVENTION SERVICES DIRECTOR, TON S 691.8 OTHER ATOPIC DERMATITIS AND RELATED CONDITIONS 01/14/2010 MARIA GUADALUPE VAUGHN, TON S 691.8 OTHER ATOPIC DERMATITIS AND [...] 716.90 ARTHRITIS/ ARTHROPATHY, UNSPECIFIED 02/26/2010 MARIA GUADALUPE CONVENTION SERVICES DIRECTOR, TON S 716.90 ARTHRITIS/ ARTHROPATHY, UNSPECIFIED 02/26/2010 TAE CONVENTION SERVICES DIRECTOR, MARJORIE Alfredo 716.90 ARTHRITIS/ ARTHROPATHY, UNSPECIFIED 02/26/2010 716.90 ARTHRITIS/ ARTHROPATHY, UNSPECIFIED 02/26/2010 716.90 ARTHRITIS/ ARTHROPATHY, UNSPECIFIED 02/26/2010 716.90 ARTHRITIS/ ARTHROPATHY, UNSPECIFIED 02/26/2010 MARIA GUADALUPE CONVENTION SERVICES DIRECTOR, TON S 716.90 ARTHRITIS/ ARTHROPATHY, UNSPECIFIED 02/26/2010 MARIA GUADALUPE CONVENTION SERVICES DIRECTOR, TON S 716.90 ARTHRITIS/ ARTHROPATHY, UNSPECIFIED 02/26/2010 BIANCA SHAH, ISAIAS 716.90 ARTHRITIS/ ARTHROPATHY, UNSPECIFIED 02/26/2010 MARIA GUADALUPE CONVENTION SERVICES DIRECTOR, TON S 716.90 ARTHRITIS/ ARTHROPATHY, UNSPECIFIED 02/26/2010 MARIA GUADALUPE CONVENTION SERVICES DIRECTOR, TON S 716.90 ARTHRITIS/ ARTHROPATHY, UNSPECIFIED 02/26/2010 MARAI GUADALUPE CONVENTION SERVICES DIRECTOR, TON S 716.90 ARTHRITIS/ ARTHROPATHY, UNSPECIFIED 02/26/2010 MARIA GUADALUPE CONVENTION SERVICES DIRECTOR, TON S 716.90 ARTHRITIS/ ARTHROPATHY, UNSPECIFIED 02/26/2010 MARIA GUADALUPE CONVENTION SERVICES DIRECTOR, TON S 716.90 ARTHRITIS/ ARTHROPATHY, UNSPECIFIED 02/26/2010 DIAZ CONVENTION SERVICES DIRECTORCATHERINE 716.90 ARTHRITIS/ ARTHROPATHY, UNSPECIFIED 02/26/2010 MARIA GUADALUPE CONVENTION SERVICES DIRECTOR, TON S 716.90 ARTHRITIS/ ARTHROPATHY, UNSPECIFIED 02/26/2010 MARIA GUADALUPE CONVENTION SERVICES DIRECTOR, TON S 716.90 ARTHRITIS/ ARTHROPATHY, UNSPECIFIED 02/26/2010 MARIA GUADALUPE CONVENTION SERVICES DIRECTOR, TON S 716.90 ARTHRITIS/ ARTHROPATHY, UNSPECIFIED 02/26/2010 MARIA GUADALUPE CONVENTION SERVICES DIRECTOR, TON S 716.90 ARTHRITIS/ ARTHROPATHY, UNSPECIFIED 02/26/2010 VELASQUEZ KAUR PSYD L 716.90 ARTHRITIS/ ARTHROPATHY, UNSPECIFIED 02/26/2010 JEWELS ROMANO DO 716.90 ARTHRITIS/ ARTHROPATHY, UNSPECIFIED 02/26/2010 VELASQUEZ KAUR PSYD L 716.90 ARTHRITIS/ ARTHROPATHY, UNSPECIFIED 02/26/2010 POST CONVENTION SERVICES DIRECTORSYMONE Ramos 716.90 ARTHRITIS/ ARTHROPATHY, UNSPECIFIED 02/26/2010 RICHARD CONVENTION SERVICES DIRECTOR, JEWELS 716.90 ARTHRITIS/ ARTHROPATHY, UNSPECIFIED 02/26/2010 RICHARD CONVENTION SERVICES DIRECTOR, JEWELS 716.90 ARTHRITIS/ ARTHROPATHY, UNSPECIFIED 02/26/2010 RICHARD CONVENTION SERVICES DIRECTOR, JEWELS 716.90 ARTHRITIS/ ARTHROPATHY, UNSPECIFIED 03/19/2010 JEWELS [...] SKIN OF LOWER LIMB INCLUDING HIP 03/19/2010 BRITNEY LERMA APRNA S 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 03/19/2010 QUINTEN LERMA APRNNDA S 216.7 BENIGN NEOPLASM OF SKIN OF [...] UPPER LIMB INCLUDING SHOULDER 03/19/2010 MARIA GUADALUPE CONVENTION SERVICES DIRECTOR, TON S 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 03/19/2010 MARIA GUADALUPE CONVENTION SERVICES DIRECTOR, TON S 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 03/19/2010 MARIA GUADALUPE CONVENTION SERVICES DIRECTOR, TON S 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 03/19/2010 ISAIAS VALENZUELA MD 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 03/19/2010 ISAIAS VALENZUELA MD 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 03/19/2010 MARIA GUADALUPE CONVENTION SERVICES DIRECTOR, TON S 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 03/19/2010 MARIA GUADALUPE CONVENTION SERVICES DIRECTOR, TON S 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 03/19/2010 MARIA GUADALUPE CONVENTION SERVICES DIRECTOR, TON S 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 03/19/2010 MARIA GUADALUPE CONVENTION SERVICES DIRECTOR, TON S 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 03/19/2010 MARIA GUADALUPE CONVENTION SERVICES DIRECTOR, TON S 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 03/19/2010 MARIA GUADALUPE CONVENTION SERVICES DIRECTOR, TON S 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 03/19/2010 MARIA GUADALUPE CONVENTION SERVICES DIRECTOR, TON S 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 03/19/2010 MARIA GUADALUPE CONVENTION SERVICES DIRECTOR, TON S 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 03/19/2010 MARIA GUADALUPE CONVENTION SERVICES DIRECTOR, TON S 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 03/19/2010 MARIA GUADALUPE CONVENTION SERVICES DIRECTOR, TON S 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 03/19/2010 DIAZ CONVENTION SERVICES DIRECTOR, CATHERINE T 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 03/19/2010 DIAZ CONVENTION SERVICES DIRECTOR, CATHERINE T 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 03/19/2010 MARIA GUADALUPE CONVENTION SERVICES DIRECTOR, TON S 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 03/19/2010 MARIA GUADALUPE CONVENTION SERVICES DIRECTOR, TON S 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 03/19/2010 MARIA GUADALUPE CONVENTION SERVICES DIRECTOR, TON S 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 03/19/2010 MARIA GUADALUPE CONVENTION SERVICES DIRECTOR, TON S 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 03/19/2010 MARIA GUADALUPE CONVENTION SERVICES DIRECTOR, TON S 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 03/19/2010 MARIA GUADALUPE CONVENTION SERVICES DIRECTOR, TON S 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 03/19/2010 MARIA GUADALUPE CONVENTION SERVICES DIRECTOR, TON S 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 03/19/2010 MARIA GUADALUPE CONVENTION SERVICES DIRECTOR, TON S 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 03/19/2010 VELASQUEZ KAUR PSYD ANN L 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 03/19/2010 VELASQUEZ KAUR PSYD ANN L 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 03/19/2010 JEWELS ROMANO DO K 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 03/19/2010 JEWELS ROMANO DO K 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 03/19/2010 VELASQUEZ KAUR PSYD ANN L 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 03/19/2010 VLEASQUEZ KAUR PSYD ANN L 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 03/19/2010 SYMONE POST APRN 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 03/19/2010 SYMONE POST APRN 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 03/19/2010 RICHARD CONVENTION SERVICES DIRECTOR, JEWELS 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 03/19/2010 RICHARD CONVENTION SERVICES DIRECTOR, JEWELS 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 03/19/2010 RICHARD CONVENTION SERVICES DIRECTOR, JEWELS 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 03/19/2010 RICHARD CONVENTION SERVICES DIRECTOR, JEWELS 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 03/19/2010 RICHARD CONVENTION SERVICES DIRECTOR, JEWELS 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 03/19/2010 RICHARD CONVENTION SERVICES DIRECTOR, JEWELS 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 03/26/2010 ROMANO SACHA OTTOA K 729.5 limb pain 03/26/2010 JEWELS ROMANO DO K V58.32 Removal Of Sutures 03/26/2010 729.5 limb pain 03/26/2010 V58.32 Removal Of Sutures 03/26/2010 729.5 limb pain 03/26/2010 V58.32 Removal Of Sutures 03/26/2010 MARIA GUADALUPE CONVENTION SERVICES DIRECTOR, TON S 729.5 limb pain 03/26/2010 MARIA GUADALUPE CONVENTION SERVICES DIRECTOR, TON S V58.32 Removal Of Sutures 03/26/2010 MARJORIE STORNG APRN 729.5 limb pain 03/26/2010 MARJORIE STRONG APRN V58.32 Removal Of Sutures 03/26/2010 729.5 limb pain 03/26/2010 V58.32 Removal Of Sutures 03/26/2010 729.5 limb pain 03/26/2010 V58.32 Removal Of Sutures 03/26/2010 729.5 limb pain 03/26/2010 V58.32 Removal Of Sutures 03/26/2010 MARIA GUADALUPE CONVENTION SERVICES DIRECTOR, TON S 729.5 limb pain 03/26/2010 MARIA GUADALUPE CHAUDHARIN, TON S V58.32 Removal Of Sutures 03/26/2010 MARIA GUADALUPE CONVENTION SERVICES DIRECTOR, TON S 729.5 limb pain 03/26/2010 MARIA GUADALUPE CONVENTION SERVICES DIRECTOR, TON S V58.32 Removal Of Sutures 03/26/2010 ISAISA VALENZUELA MD 729.5 limb pain 03/26/2010 ISAIAS VALENZUELA MD V58.32 Removal Of Sutures 03/26/2010 MARIA GUADALUPE CONVENTION SERVICES DIRECTOR, TON S 729.5 limb pain 03/26/2010 MARIA GUADALUPE CONVENTION SERVICES DIRECTOR, TON S V58.32 Removal Of Sutures 03/26/2010 MARIA GUADALUPE CONVENTION SERVICES DIRECTOR, TON S 729.5 limb pain 03/26/2010 MARIA GUADALUPE CONVENTION SERVICES DIRECTOR, TON S V58.32 Removal Of Sutures 03/26/2010 MARIA GUADALUPE CONVENTION SERVICES DIRECTOR, TON S 729.5 LIMB PAIN 03/26/2010 MARIA GUADALUPE CONVENTION SERVICES DIRECTOR, TON S V58.32 REMOVAL OF SUTURES 03/26/2010 MARIA GUADALUPE CONVENTION SERVICES DIRECTOR, TON S 729.5 LIMB PAIN 03/26/2010 MARIA GUADALUPE CONVENTION SERVICES DIRECTOR, TON S V58.32 REMOVAL OF SUTURES 03/26/2010 MARIA GUADALUPE CONVENTION SERVICES DIRECTOR, TON S 729.5 LIMB PAIN 03/26/2010 MARIA GUADALUPE CONVENTION SERVICES DIRECTOR, TON S V58.32 REMOVAL OF SUTURES 03/26/2010 DIAZ CONVENTION SERVICES DIRECTOR, CATHERINE T 729.5 LIMB PAIN 03/26/2010 DIAZ CONVENTION SERVICES DIRECTOR, CATHERINE T V58.32 REMOVAL OF SUTURES 03/26/2010 MARIA GUADALUPE CONVENTION SERVICES DIRECTOR, TON S 729.5 LIMB PAIN 03/26/2010 MARIA GUADALUPE CONVENTION SERVICES DIRECTOR, TON S V58.32 REMOVAL OF SUTURES 03/26/2010 MARIA GUADALUPE CONVENTION SERVICES DIRECTOR, TON S 729.5 LIMB PAIN 03/26/2010 MARIA GUADALUPE CONVENTION SERVICES DIRECTOR, TON S V58.32 REMOVAL OF SUTURES 03/26/2010 MARIA GUADALUPE CONVENTION SERVICES DIRECTOR, TON S 729.5 LIMB PAIN 03/26/2010 MARIA GUADALUPE CONVENTION SERVICES DIRECTOR, TON S V58.32 REMOVAL OF SUTURES 03/26/2010 MARIA GUADALUPE CONVENTION SERVICES DIRECTOR, TON S 729.5 LIMB PAIN 03/26/2010 MARIA GUADALUPE CONVENTION SERVICES DIRECTOR, TON S V58.32 REMOVAL OF SUTURES 03/26/2010 VELASQUEZ KAUR PSYD 729.5 LIMB PAIN 03/26/2010 VELASQUEZ KAUR PSYD L V58.32 REMOVAL OF SUTURES 03/26/2010 JEWELS ROMANO DO 729.5 LIMB PAIN 03/26/2010 JEWELS ROMANO DO V58.32 REMOVAL OF SUTURES 03/26/2010 VELASQUEZ KAUR PSYD 729.5 LIMB PAIN 03/26/2010 VELASQUEZ KAUR PSYD L V58.32 REMOVAL OF SUTURES 03/26/2010 POST SYMONE VAUGHN 729.5 LIMB PAIN 03/26/2010 SYMONE POST APRN V58.32 REMOVAL OF SUTURES 03/26/2010 RICHARD CONVENTION SERVICES DIRECTOR, JEWELS 729.5 LIMB PAIN 03/26/2010 RICHARD CONVENTION SERVICES DIRECTOR, JEWELS V58.32 REMOVAL OF SUTURES 03/26/2010 RICHARD CONVENTION SERVICES DIRECTOR, JEWELS 729.5 LIMB PAIN 03/26/2010 JEWELS RAMOS APRN V58.32 REMOVAL OF SUTURES 03/26/2010 JEWELS RAMOS [...] LEFT LOWER QUADRANT 06/26/2010 TON LERMA APRN 386.11 VERTIGO- BENIGN PAROXYSMAL POSITIONAL 06/26/2010 TON LERMA APRN 787.91 DIARRHEA 06/26/2010 TON LERMA APRN S [...] PAIN LEFT LOWER QUADRANT 06/26/2010 MARIA GUADALUPE CONVENTION SERVICES DIRECTOR, TON S 386.11 VERTIGO- BENIGN PAROXYSMAL POSITIONAL 06/26/2010 MARIA GUADALUPE CONVENTION SERVICES DIRECTOR, TON S 787.91 DIARRHEA 06/26/2010 MARIA GUADALUPE CONVENTION SERVICES DIRECTOR, TON S 789.04 ABDOMINAL PAIN LEFT LOWER QUADRANT 06/26/2010 ISAIAS VALENZUELA MD 386.11 VERTIGO- BENIGN PAROXYSMAL POSITIONAL 06/26/2010 ISAIAS VALENZUELA MD 787.91 DIARRHEA 06/26/2010 ISAIAS VALENZUELA MD 789.04 ABDOMINAL PAIN LEFT LOWER QUADRANT 06/26/2010 MARIA GUADALUPE CONVENTION SERVICES DIRECTOR, TON S 386.11 VERTIGO- BENIGN PAROXYSMAL POSITIONAL 06/26/2010 MARIA GUADALUPE CONVENTION SERVICES DIRECTOR, TON S 787.91 DIARRHEA 06/26/2010 MARIA GUADALUPE CONVENTION SERVICES DIRECTOR, TON S 789.04 ABDOMINAL PAIN LEFT LOWER QUADRANT 06/26/2010 MARIA GUADALUPE CONVENTION SERVICES DIRECTOR, TON S 386.11 VERTIGO- BENIGN PAROXYSMAL POSITIONAL 06/26/2010 MARIA GUADALUPE CONVENTION SERVICES DIRECTOR, TON S 787.91 DIARRHEA 06/26/2010 MARIA GUADALUPE CONVENTION SERVICES DIRECTOR, TON S 789.04 ABDOMINAL PAIN LEFT LOWER QUADRANT 06/26/2010 MARIA GUADALUPE CONVENTION SERVICES DIRECTOR, TON S 386.11 VERTIGO- BENIGN PAROXYSMAL POSITIONAL 06/26/2010 MARIA GUADALUPE CONVENTION SERVICES DIRECTOR, TON S 787.91 DIARRHEA 06/26/2010 MARIA GUADALUPE CONVENTION SERVICES DIRECTOR, TON S 789.04 ABDOMINAL PAIN LEFT LOWER QUADRANT 06/26/2010 MARIA GUADALUPE CONVENTION SERVICES DIRECTOR, TON S 386.11 VERTIGO- BENIGN PAROXYSMAL POSITIONAL 06/26/2010 MARIA GUADALUPE CONVENTION SERVICES DIRECTOR, TON S 787.91 DIARRHEA 06/26/2010 MARIA GUADALUPE CONVENTION SERVICES DIRECTOR, TON S 789.04 ABDOMINAL PAIN LEFT LOWER QUADRANT 06/26/2010 MARIA GUADALUPE CONVENTION SERVICES DIRECTOR, TON S 386.11 VERTIGO- BENIGN PAROXYSMAL POSITIONAL 06/26/2010 MARIA GUADALUPE CONVENTION SERVICES DIRECTOR, TON S 787.91 DIARRHEA 06/26/2010 MARIA GUADALUPE CONVENTION SERVICES DIRECTOR, TON S 789.04 ABDOMINAL PAIN LEFT LOWER QUADRANT 06/26/2010 CATHERINE PERALES APRN 386.11 VERTIGO- BENIGN PAROXYSMAL POSITIONAL 06/26/2010 CATHERINE PERALES APRN 787.91 DIARRHEA 06/26/2010 CATHERINE PERALES APRN T 789.04 ABDOMINAL PAIN LEFT LOWER QUADRANT 06/26/2010 MARIA GUADALUPE CONVENTION SERVICES DIRECTOR, TON S 386.11 VERTIGO- BENIGN PAROXYSMAL POSITIONAL 06/26/2010 MARIA GUADALUPE CONVENTION SERVICES DIRECTOR, TON S 787.91 DIARRHEA 06/26/2010 MARIA GUADALUPE CONVENTION SERVICES DIRECTOR, TON S 789.04 ABDOMINAL PAIN LEFT LOWER QUADRANT 06/26/2010 MARIA GUADALUPE CONVENTION SERVICES DIRECTOR, TON S 386.11 VERTIGO- BENIGN PAROXYSMAL POSITIONAL 06/26/2010 MARIA GUADALUPE CONVENTION SERVICES DIRECTOR, TON S 787.91 DIARRHEA 06/26/2010 MARIA GUADALUPE CONVENTION SERVICES DIRECTOR, TON S 789.04 ABDOMINAL PAIN LEFT LOWER QUADRANT 06/26/2010 MARIA GUADALUPE CONVENTION SERVICES DIRECTOR, TON S 386.11 VERTIGO- BENIGN PAROXYSMAL POSITIONAL 06/26/2010 MARIA GUADALUPE CONVENTION SERVICES DIRECTOR, TON S 787.91 DIARRHEA 06/26/2010 MARIA GUADALUPE CONVENTION SERVICES DIRECTOR, TON S 789.04 ABDOMINAL PAIN LEFT LOWER QUADRANT 06/26/2010 MARIA GUADALUPE CONVENTION SERVICES DIRECTOR, TON S 386.11 VERTIGO- BENIGN PAROXYSMAL POSITIONAL 06/26/2010 MARIA GUADALUPE CONVENTION SERVICES DIRECTOR, TON S 787.91 DIARRHEA 06/26/2010 MARIA GUADALUPE CONVENTION SERVICES DIRECTOR, TON S 789.04 ABDOMINAL PAIN LEFT LOWER [...] 386.11 VERTIGO- BENIGN PAROXYSMAL POSITIONAL 06/26/2010 SYMONE PSOT APRN 787.91 DIARRHEA 06/26/2010 SYMONE PSOT APRN 789.04 ABDOMINAL PAIN LEFT LOWER QUADRANT 06/26/2010 RICHARD CONVENTION SERVICES DIRECTOR, JEWELS 386.11 VERTIGO- BENIGN PAROXYSMAL POSITIONAL 06/26/2010 RICHARD CONVENTION SERVICES DIRECTOR, JEWELS 787.91 DIARRHEA 06/26/2010 RICHARD CONVENTION SERVICES DIRECTOR, JEWELS 789.04 ABDOMINAL PAIN LEFT LOWER QUADRANT 06/26/2010 RICHARD CONVENTION SERVICES DIRECTOR, JEWELS 386.11 VERTIGO- BENIGN PAROXYSMAL POSITIONAL 06/26/2010 RICHARD CONVENTION SERVICES DIRECTOR, JEWELS 787.91 DIARRHEA 06/26/2010 RICHARD CONVENTION SERVICES DIRECTOR, JEWELS 789.04 ABDOMINAL PAIN LEFT LOWER QUADRANT 06/26/2010 RICHARD CONVENTION SERVICES DIRECTOR, JEWELS 386.11 VERTIGO- BENIGN PAROXYSMAL POSITIONAL 06/26/2010 RICHARD CONVENTION SERVICES DIRECTOR, JEWELS 787.91 DIARRHEA 06/26/2010 RICHARD CONVENTION SERVICES DIRECTOR, JEWELS 789.04 ABDOMINAL PAIN LEFT LOWER QUADRANT 07/01/2010 JEWELS ROMANO DO 386.30 LABYRINTHITIS UNSPECIFIED 07/01/2010 386.30 LABYRINTHITIS UNSPECIFIED 07/01/2010 386.30 LABYRINTHITIS UNSPECIFIED 07/01/2010 TON LERMA APRN S 386.30 LABYRINTHITIS UNSPECIFIED 07/01/2010 MARJORIE STRONG APRN 386.30 LABYRINTHITIS UNSPECIFIED 07/01/2010 386.30 LABYRINTHITIS UNSPECIFIED 07/01/2010 386.30 LABYRINTHITIS UNSPECIFIED 07/01/2010 386.30 LABYRINTHITIS UNSPECIFIED 07/01/2010 BRITNEY LERMA APRNA S 386.30 LABYRINTHITIS UNSPECIFIED 07/01/2010 BRITNEY LERMA APRNA S 386.30 LABYRINTHITIS UNSPECIFIED 07/01/2010 ISAIAS VALENZUELA MD 386.30 LABYRINTHITIS UNSPECIFIED 07/01/2010 BRITNEY LERMA APRNA S 386.30 LABYRINTHITIS UNSPECIFIED 07/01/2010 BRITNEY LERMA APRNA S 386.30 LABYRINTHITIS UNSPECIFIED 07/01/2010 BRITNEY LERMA APRNA S 386.30 LABYRINTHITIS UNSPECIFIED 07/01/2010 MARIA GUADALUPE VAUGHN, TON S 386.30 LABYRINTHITIS UNSPECIFIED 07/01/2010 MARIA GUADALUPE VAUGHN, TON S 386.30 LABYRINTHITIS UNSPECIFIED 07/01/2010 CATHERINE PERALES APRN 386.30 LABYRINTHITIS UNSPECIFIED 07/01/2010 MARIA GUADALUPE CONVENTION SERVICES DIRECTOR, TON S 386.30 LABYRINTHITIS UNSPECIFIED 07/01/2010 MARIA GUADALUPE CHAUDHARIN, OTN S 386.30 LABYRINTHITIS UNSPECIFIED 07/01/2010 MARIA GUADALUPE CONVENTION SERVICES DIRECTOR, TON S 386.30 LABYRINTHITIS UNSPECIFIED 07/01/2010 MARIA GUADALUPE VAUGHN, TON S 386.30 LABYRINTHITIS UNSPECIFIED 07/01/2010 VELASQUEZ KAUR PSYD 386.30 LABYRINTHITIS UNSPECIFIED 07/01/2010 JEWELS ROMANO DO K 386.30 LABYRINTHITIS UNSPECIFIED 07/01/2010 VELASQUEZ KAUR PSYD L 386.30 LABYRINTHITIS UNSPECIFIED 07/01/2010 SYMONE POST APRN 386.30 LABYRINTHITIS UNSPECIFIED 07/01/2010 RICHARD CONVENTION SERVICES DIRECTOR, JEWELS 386.30 LABYRINTHITIS UNSPECIFIED 07/01/2010 RICHARD VAUGHN JEWELS 386.30 LABYRINTHITIS UNSPECIFIED 07/01/2010 RICHARD CONVENTION SERVICES DIRECTOR, JEWELS 386.30 LABYRINTHITIS UNSPECIFIED 09/13/2010 SACHA ROMANO DOA K 698.9 PRURITUS NOS 09/13/2010 SACHA ROMANO DOA K 782.1 RASH 09/13/2010 ROMANO SACHA OTTOA K 786.05 SHORTNESS OF BREATH 09/13/2010 698.9 PRURITUS NOS 09/13/2010 782.1 RASH 09/13/2010 786.05 SHORTNESS OF BREATH 09/13/2010 698.9 PRURITUS NOS 09/13/2010 782.1 RASH 09/13/2010 786.05 SHORTNESS OF BREATH 09/13/2010 QUINTEN LERMA APRNNDA S 698.9 PRURITUS NOS 09/13/2010 BRITNEY LERMA APRNA S 782.1 RASH 09/13/2010 BRITNEY LERMA APRNA S 786.05 SHORTNESS OF BREATH 09/13/2010 TAE VAUGHNMARJORIE M 698.9 PRURITUS NOS 09/13/2010 TAE CHAUDHARIN, MARJORIE M 782.1 RASH 09/13/2010 TAE CHAUDHARINMARJORIE 786.05 SHORTNESS OF BREATH 09/13/2010 698.9 PRURITUS NOS 09/13/2010 782.1 RASH 09/13/2010 786.05 SHORTNESS OF BREATH 09/13/2010 698.9 PRURITUS NOS 09/13/2010 782.1 RASH 09/13/2010 786.05 SHORTNESS OF BREATH 09/13/2010 698.9 PRURITUS NOS 09/13/2010 782.1 RASH 09/13/2010 786.05 SHORTNESS OF BREATH 09/13/2010 MARIA GUADALUPE CONVENTION SERVICES DIRECTOR, TON S 698.9 PRURITUS NOS 09/13/2010 MARIA GUADALUPE CONVENTION SERVICES DIRECTOR, TON S 782.1 RASH 09/13/2010 MARIA GUADALUPE CONVENTION SERVICES DIRECTOR, TON S 786.05 SHORTNESS OF BREATH 09/13/2010 MARIA GUADALUPE CONVENTION SERVICES DIRECTOR, TON S 698.9 PRURITUS NOS 09/13/2010 MARIA GUADALUPE CONVENTION SERVICES DIRECTOR, TON S 782.1 RASH 09/13/2010 MARIA GUADALUPE CONVENTION SERVICES DIRECTOR, TON S 786.05 SHORTNESS OF BREATH 09/13/2010 ISAIAS VALENZUELA MD 698.9 PRURITUS NOS 09/13/2010 ISAIAS VALENZUELA MD 782.1 RASH 09/13/2010 ISAIAS VALENZUELA MD 786.05 SHORTNESS OF BREATH 09/13/2010 MARIA GUADALUPE CONVENTION SERVICES DIRECTOR, TON S 698.9 PRURITUS NOS 09/13/2010 MARIA GUADALUPE CONVENTION SERVICES DIRECTOR, TON S 782.1 RASH 09/13/2010 MARIA GUADALUPE CONVENTION SERVICES DIRECTOR, TON S 786.05 SHORTNESS OF BREATH 09/13/2010 MARIA GUADALUPE CONVENTION SERVICES DIRECTOR, TON S 698.9 PRURITUS NOS 09/13/2010 MARIA GUADALUPE CONVENTION SERVICES DIRECTOR, TON S 782.1 RASH 09/13/2010 MARIA GUADALUPE CONVENTION SERVICES DIRECTOR, TON S 786.05 SHORTNESS OF BREATH 09/13/2010 MARIA GUADALUPE CONVENTION SERVICES DIRECTOR, TON S 698.9 PRURITUS NOS 09/13/2010 MARIA GUADALUPE CONVENTION SERVICES DIRECTOR, TON S 782.1 RASH 09/13/2010 MARIA GUADALUPE CONVENTION SERVICES DIRECTOR, TON S 786.05 SHORTNESS OF BREATH 09/13/2010 MARIA GUADALUPE CONVENTION SERVICES DIRECTOR, TON S 698.9 PRURITUS NOS 09/13/2010 MARIA GUADALUPE CONVENTION SERVICES DIRECTOR, TON S 782.1 RASH 09/13/2010 MARIA GUADALUPE CONVENTION SERVICES DIRECTOR, TON S 786.05 SHORTNESS OF BREATH 09/13/2010 MARIA GUADALUPE CONVENTION SERVICES DIRECTOR, TON S 698.9 PRURITUS NOS 09/13/2010 MARIA GUADALUPE CONVENTION SERVICES DIRECTOR, TON S 782.1 RASH 09/13/2010 MARIA GUADALUPE CONVENTION SERVICES DIRECTOR, TON S 786.05 SHORTNESS OF BREATH 09/13/2010 DIAZ CONVENTION SERVICES DIRECTOR, CATHERINE T 698.9 PRURITUS NOS 09/13/2010 DIAZ CONVENTION SERVICES DIRECTOR, CATHERINE T 782.1 RASH 09/13/2010 DIAZ CONVENTION SERVICES DIRECTOR, CATHERINE T 786.05 SHORTNESS OF BREATH 09/13/2010 MARIA GUADALUPE CONVENTION SERVICES DIRECTOR, TON S 698.9 PRURITUS NOS 09/13/2010 MARIA GUADALUPE CONVENTION SERVICES DIRECTOR, TON S 782.1 RASH 09/13/2010 MARIA GUADALUPE CONVENTION SERVICES DIRECTOR, TON S 786.05 SHORTNESS OF BREATH 09/13/2010 MARIA GUADALUPE CONVENTION SERVICES DIRECTOR, TON S 698.9 PRURITUS NOS 09/13/2010 MARIA GUADALUPE CONVENTION SERVICES DIRECTOR, TON S 782.1 RASH 09/13/2010 MARIA GUADALUPE CONVENTION SERVICES DIRECTOR, TON S 786.05 SHORTNESS OF BREATH 09/13/2010 MARIA GUADALUPE CONVENTION SERVICES DIRECTOR, TON S 698.9 PRURITUS NOS 09/13/2010 MARIA GUADALUPE CONVENTION SERVICES DIRECTOR, TON S 782.1 RASH 09/13/2010 MARIA GUADALUPE CONVENTION SERVICES DIRECTOR, TON S 786.05 SHORTNESS OF BREATH 09/13/2010 MARIA GUADALUPE CONVENTION SERVICES DIRECTOR, TON S 698.9 PRURITUS NOS 09/13/2010 MARIA GUADALUPE CONVENTION SERVICES DIRECTOR, TON S 782.1 RASH 09/13/2010 MARIA GUADALUPE CONVENTION SERVICES DIRECTOR, TON S 786.05 SHORTNESS OF BREATH 09/13/2010 VELASQUEZ KAUR PSYD ANN L 698.9 PRURITUS NOS 09/13/2010 VELASQUEZ KAUR PSYD L 782.1 RASH 09/13/2010 VELASQUEZ KAUR PSYD ANN L 786.05 SHORTNESS OF BREATH 09/13/2010 ROMANO DO, JEWELS K 698.9 PRURITUS NOS 09/13/2010 ROMANO DO, JEWELS K 782.1 RASH 09/13/2010 ROMANO DO, JEWELS K 786.05 SHORTNESS OF BREATH 09/13/2010 VELASQUEZ KAUR PSYD L 698.9 PRURITUS NOS 09/13/2010 VELASQUEZ KAUR PSYD L 782.1 RASH 09/13/2010 VELASQUEZ KAUR PSYD L 786.05 SHORTNESS OF BREATH 09/13/2010 POST CONVENTION SERVICES DIRECTORSYMONE Ramos 698.9 PRURITUS NOS 09/13/2010 POST CONVENTION SERVICES DIRECTOR, SYMONE D 782.1 RASH 09/13/2010 POST CONVENTION SERVICES DIRECTORSYMONE Ramos 786.05 SHORTNESS OF BREATH 09/13/2010 RICHARD CONVENTION SERVICES DIRECTOR, JEWELS 698.9 PRURITUS NOS 09/13/2010 RICHARD CONVENTION SERVICES DIRECTOR, JEWELS 782.1 RASH 09/13/2010 RICHARD CONVENTION SERVICES DIRECTOR, JEWELS 786.05 SHORTNESS OF BREATH 09/13/2010 RICHARD CONVENTION SERVICES DIRECTOR, JEWELS 698.9 PRURITUS NOS 09/13/2010 RICHARD CONVENTION SERVICES DIRECTOR, JEWELS 782.1 RASH 09/13/2010 RICHARD CONVENTION SERVICES DIRECTOR, JEWELS 786.05 SHORTNESS OF BREATH 09/13/2010 RICHARD CONVENTION SERVICES DIRECTOR, JEWELS 698.9 PRURITUS NOS 09/13/2010 RICHARD CONVENTION SERVICES DIRECTOR, JEWELS 782.1 RASH 09/13/2010 RICHARD CONVENTION SERVICES DIRECTOR, JEWELS 786.05 SHORTNESS OF BREATH 02/10/2011 ROMANO DO, JEWELS K 564.1 IRRITABLE BOWEL SYNDROME 02/10/2011 ROMANO DO, JEWELS K 578.1 BLOOD IN STOOL 02/10/2011 ROMANO DO, JEWELS K 789.07 ABDOMINAL PAIN GENERALIZED 02/10/2011 ROMANO DO, JEWELS K V04.81 FLU DX (3 YRS AND ABOVE, IM) 02/10/2011 564.1 IRRITABLE BOWEL SYNDROME 02/10/2011 578.1 BLOOD IN STOOL 02/10/2011 789.07 ABDOMINAL PAIN GENERALIZED 02/10/2011 V04.81 FLU DX (3 YRS AND ABOVE, IM) 02/10/2011 564.1 IRRITABLE BOWEL SYNDROME 02/10/2011 578.1 BLOOD IN STOOL 02/10/2011 789.07 ABDOMINAL PAIN GENERALIZED 02/10/2011 V04.81 FLU DX (3 YRS AND ABOVE, IM) 02/10/2011 BRITNEY LERMA APRNA S 564.1 IRRITABLE BOWEL SYNDROME 02/10/2011 MARIA GUADALUPE CONVENTION SERVICES DIRECTORQUINTEN RamosNDA S 578.1 BLOOD IN STOOL 02/10/2011 BRITNEY LERMA APRNA S 789.07 ABDOMINAL PAIN GENERALIZED 02/10/2011 BRITNEY LERMA APRNA S V04.81 FLU DX (3 YRS AND ABOVE, IM) 02/10/2011 TAE VAUGHNGEOFFREYON M 564.1 IRRITABLE BOWEL SYNDROME 02/10/2011 STRONG CONVENTION SERVICES DIRECTORMARJORIE Ramos 578.1 BLOOD IN STOOL 02/10/2011 STRONG CONVENTION SERVICES DIRECTORGEOFRFEYON M 789.07 ABDOMINAL PAIN GENERALIZED 02/10/2011 TAE CHAUDHARINMARJORIE V04.81 FLU DX (3 YRS AND ABOVE, [...] APRNNDA S 789.07 ABDOMINAL PAIN GENERALIZED 02/10/2011 BRITNEY LERMA APRNA S V04.81 FLU DX (3 YRS AND ABOVE, IM) 02/10/2011 QUINTEN LERMA APRNNDA S 564.1 IRRITABLE BOWEL SYNDROME 02/10/2011 MARIA GUADALUPE CONVENTION SERVICES DIRECTOR, TON S 578.1 BLOOD IN STOOL 02/10/2011 MARIA GUADALUPE CONVENTION SERVICES DIRECTOR, TON S 789.07 ABDOMINAL PAIN GENERALIZED 02/10/2011 MARIA GUADALUPE CONVENTION SERVICES DIRECTOR, TON S V04.81 FLU DX (3 YRS AND ABOVE, IM) 02/10/2011 ISAIAS VALENZUELA MD 564.1 IRRITABLE BOWEL SYNDROME 02/10/2011 ISAIAS VALENZUELA MD 578.1 BLOOD IN STOOL 02/10/2011 ISAIAS VALENZUELA MD 789.07 ABDOMINAL PAIN GENERALIZED 02/10/2011 ISAIAS VALENZUELA MD V04.81 FLU DX (3 YRS AND ABOVE, IM) 02/10/2011 MARIA GUADALUPE CONVENTION SERVICES DIRECTOR, TON S 564.1 IRRITABLE BOWEL SYNDROME 02/10/2011 MARIA GUADALUPE CONVENTION SERVICES DIRECTOR, TON S 578.1 BLOOD IN STOOL 02/10/2011 MARIA GUADALUPE CONVENTION SERVICES DIRECTOR, TON S 789.07 ABDOMINAL PAIN GENERALIZED 02/10/2011 MARIA GUADALUPE CONVENTION SERVICES DIRECTOR, TON S V04.81 FLU DX (3 YRS AND ABOVE, IM) 02/10/2011 MARIA GUADALUPE CONVENTION SERVICES DIRECTOR, TON S 564.1 IRRITABLE BOWEL SYNDROME 02/10/2011 MARIA GUADALUPE CONVENTION SERVICES DIRECTOR, TON S 578.1 BLOOD IN STOOL 02/10/2011 MARIA GUADALUPE CONVENTION SERVICES DIRECTOR, TON S 789.07 ABDOMINAL PAIN GENERALIZED 02/10/2011 MARIA GUADALUPE CONVENTION SERVICES DIRECTOR, TON S V04.81 FLU DX (3 YRS AND ABOVE, IM) 02/10/2011 MARIA GUADALUPE CONVENTION SERVICES DIRECTOR, TON S 564.1 IRRITABLE BOWEL SYNDROME 02/10/2011 MARIA GUADALUPE CONVENTION SERVICES DIRECTOR, TON S 578.1 BLOOD IN STOOL 02/10/2011 MARIA GUADALUPE CONVENTION SERVICES DIRECTOR, TON S 789.07 ABDOMINAL PAIN GENERALIZED 02/10/2011 MARIA GUADALUPE CONVENTION SERVICES DIRECTOR, TON S V04.81 FLU DX (3 YRS AND ABOVE, IM) 02/10/2011 MARIA GUADALUPE CONVENTION SERVICES DIRECTOR, TON S 564.1 IRRITABLE BOWEL SYNDROME 02/10/2011 MARIA GUADALUPE CONVENTION SERVICES DIRECTOR, TON S 578.1 BLOOD IN STOOL 02/10/2011 MARIA GUADALUPE CONVENTION SERVICES DIRECTOR, TON S 789.07 ABDOMINAL PAIN GENERALIZED 02/10/2011 MARIA GUADALUPE CONVENTION SERVICES DIRECTOR, TON S V04.81 FLU DX (3 YRS AND ABOVE, IM) 02/10/2011 MARIA GUADALUPE CONVENTION SERVICES DIRECTOR, TON S 564.1 IRRITABLE BOWEL SYNDROME 02/10/2011 MARIA GUADALUPE CONVENTION SERVICES DIRECTOR, TON S 578.1 BLOOD IN STOOL 02/10/2011 MARIA GUADALUPE CONVENTION SERVICES DIRECTOR, TON S 789.07 ABDOMINAL PAIN GENERALIZED 02/10/2011 MARIA GUADALUPE CONVENTION SERVICES DIRECTOR, TON S V04.81 FLU DX (3 YRS AND ABOVE, IM) 02/10/2011 DIAZ CONVENTION SERVICES DIRECTOR, CATHERINE T 564.1 IRRITABLE BOWEL SYNDROME 02/10/2011 DIAZ CONVENTION SERVICES DIRECTOR, CATHERINE T 578.1 BLOOD IN STOOL 02/10/2011 DIAZ CONVENTION SERVICES DIRECTOR, CATHERINE T 789.07 ABDOMINAL PAIN GENERALIZED 02/10/2011 DIAZ CHAUDHARIN, CATHERINE T V04.81 FLU DX (3 YRS AND ABOVE, IM) 02/10/2011 MARIA GUADALUPE CHAUDHARIN, TON S 564.1 IRRITABLE BOWEL SYNDROME 02/10/2011 MARIA GUADALUPE CONVENTION SERVICES DIRECTOR, TON S 578.1 BLOOD IN STOOL 02/10/2011 MARIA GUADALUPE CONVENTION SERVICES DIRECTOR, TON S 789.07 ABDOMINAL PAIN GENERALIZED 02/10/2011 MARIA GUADALUPE CONVENTION SERVICES DIRECTOR, TON S V04.81 FLU DX (3 YRS AND ABOVE, IM) 02/10/2011 MARIA GUADALUPE CONVENTION SERVICES DIRECTOR, TON S 564.1 IRRITABLE BOWEL SYNDROME 02/10/2011 MARIA GUADALUPE CONVENTION SERVICES DIRECTOR, TON S 578.1 BLOOD IN STOOL 02/10/2011 MARIA GUADALUPE CONVENTION SERVICES DIRECTOR, TON S 789.07 ABDOMINAL PAIN GENERALIZED 02/10/2011 MARIA GUADALUPE CONVENTION SERVICES DIRECTOR, TON S V04.81 FLU DX (3 YRS AND ABOVE, IM) 02/10/2011 MARIA GUADALUPE CONVENTION SERVICES DIRECTOR, TON S 564.1 IRRITABLE BOWEL SYNDROME 02/10/2011 MARIA GUADALUPE CONVENTION SERVICES DIRECTOR, TON S 578.1 BLOOD IN STOOL 02/10/2011 MARIA GUADALUPE CONVENTION SERVICES DIRECTOR, TON S 789.07 ABDOMINAL PAIN GENERALIZED 02/10/2011 MARIA GUADALUPE CONVENTION SERVICES DIRECTOR, TON S V04.81 FLU DX (3 YRS AND ABOVE, IM) 02/10/2011 MARIA GUADALUPE VAUGHN, TON S 564.1 IRRITABLE BOWEL SYNDROME 02/10/2011 MARIA GUADALUPE CONVENTION SERVICES DIRECTOR, TON S 578.1 BLOOD IN STOOL 02/10/2011 MARIA GUADALUPE CONVENTION SERVICES DIRECTOR, TON S 789.07 ABDOMINAL PAIN GENERALIZED 02/10/2011 MARIA GUADALUPE CONVENTION SERVICES DIRECTOR TON S V04.81 FLU DX (3 YRS AND ABOVE, IM) 02/10/2011 VELASQUEZ KAUR PSYD L 564.1 IRRITABLE BOWEL SYNDROME 02/10/2011 VELASQUEZ KAUR PSYD L 578.1 BLOOD IN STOOL 02/10/2011 VELASQUEZ KAUR PSYD ANN L 789.07 ABDOMINAL PAIN GENERALIZED 02/10/2011 VELASQUEZ KAUR PSYD L V04.81 FLU DX (3 YRS AND ABOVE, IM) 02/10/2011 ROMANO DO JEWELS K 564.1 IRRITABLE BOWEL SYNDROME 02/10/2011 ROMANO [...] DX (3 YRS AND ABOVE, IM) 02/10/2011 JEWELS RAMOS APRN 564.1 IRRITABLE BOWEL SYNDROME 02/10/2011 STEVE RAMOS APRNETTE 578.1 BLOOD IN STOOL 02/10/2011 RICHARD CONVENTION SERVICES DIRECTOR, JEWELS 789.07 ABDOMINAL PAIN GENERALIZED 02/10/2011 RICHARD CONVENTION SERVICES DIRECTOR, JEWELS V04.81 FLU DX (3 YRS AND ABOVE, IM) 02/10/2011 RICHARD CONVENTION SERVICES DIRECTOR, JEWELS 564.1 IRRITABLE BOWEL SYNDROME 02/10/2011 RICHARD CONVENTION SERVICES DIRECTOR, JEWELS 578.1 BLOOD IN STOOL 02/10/2011 RICHARD CONVENTION SERVICES DIRECTOR, JEWELS 789.07 ABDOMINAL PAIN GENERALIZED 02/10/2011 RICHARD CONVENTION SERVICES DIRECTOR, JEWELS V04.81 FLU DX (3 YRS AND ABOVE, IM) 02/10/2011 RICHARD CONVENTION SERVICES DIRECTOR, JEWELS 564.1 IRRITABLE BOWEL SYNDROME 02/10/2011 RICHARD CONVENTION SERVICES DIRECTOR, JEWELS 578.1 BLOOD IN STOOL 02/10/2011 RICHARD CONVENTION SERVICES DIRECTOR, JEWELS 789.07 ABDOMINAL PAIN GENERALIZED 02/10/2011 RICHARD CONVENTION SERVICES DIRECTOR, JEWELS V04.81 FLU DX (3 YRS AND [...] HISTORY OF COLONIC POLYPS 03/17/2011 MARIA GUADALUPE CONVENTION SERVICES DIRECTOR, TON S 536.8 DYSPEPSIA 03/17/2011 MARIA GUADALUPE CONVENTION SERVICES DIRECTOR, TON S 789.01 ABDOMINAL PAIN RIGHT UPPER QUADRANT 03/17/2011 MARIA GUADALUPE CONVENTION SERVICES DIRECTOR, TON S V12.72 PERSONAL HISTORY OF COLONIC POLYPS 03/17/2011 MARIA GUADALUPE CONVENTION SERVICES DIRECTOR, TON S 536.8 DYSPEPSIA 03/17/2011 MARIA GUADALUPE CONVENTION SERVICES DIRECTOR, TON S 789.01 ABDOMINAL PAIN RIGHT UPPER QUADRANT 03/17/2011 MARIA GUADALUPE CONVENTION SERVICES DIRECTOR, TON S V12.72 PERSONAL HISTORY OF COLONIC POLYPS 03/17/2011 CATHERINE PERALES APRN T 536.8 DYSPEPSIA 03/17/2011 DIAZ VAUGHN CATHERINE T 789.01 ABDOMINAL PAIN RIGHT UPPER QUADRANT 03/17/2011 DIAZ VAUGHN CATHERINE T V12.72 PERSONAL HISTORY OF COLONIC POLYPS 03/17/2011 MARIA GUADALUPE CONVENTION SERVICES DIRECTOR, TON S 536.8 DYSPEPSIA 03/17/2011 MARIA GUADALUPE CONVENTION SERVICES DIRECTOR, TON S 789.01 ABDOMINAL PAIN RIGHT UPPER QUADRANT 03/17/2011 MARIA GUADALUPE CONVENTION SERVICES DIRECTOR, TON S V12.72 PERSONAL HISTORY OF COLONIC POLYPS 03/17/2011 MARIA GUADALUPE CONVENTION SERVICES DIRECTOR, TON S 536.8 DYSPEPSIA 03/17/2011 MARIA GUADALUPE CONVENTION SERVICES DIRECTOR, TON S 789.01 ABDOMINAL PAIN RIGHT UPPER QUADRANT 03/17/2011 MARIA GUADALUPE CONVENTION SERVICES DIRECTOR, TON S V12.72 PERSONAL HISTORY OF COLONIC POLYPS 03/17/2011 MARIA GUADALUPE CONVENTION SERVICES DIRECTOR, TON S 536.8 DYSPEPSIA 03/17/2011 MARIA GUADALUPE CONVENTION SERVICES DIRECTOR, TON S 789.01 ABDOMINAL PAIN RIGHT UPPER QUADRANT 03/17/2011 MARIA GUADALUPE CONVENTION SERVICES DIRECTOR, TON S V12.72 PERSONAL HISTORY OF COLONIC POLYPS 03/17/2011 MARIA GUADALUPE CONVENTION SERVICES DIRECTOR, TON S 536.8 DYSPEPSIA 03/17/2011 MARIA GUADALUPE CONVENTION SERVICES DIRECTOR, TON S 789.01 ABDOMINAL PAIN RIGHT UPPER QUADRANT 03/17/2011 MARIA GUADALUPE CONVENTION SERVICES DIRECTOR, TON S V12.72 PERSONAL HISTORY OF COLONIC POLYPS 03/17/2011 VELASQUEZ KAUR PSYD 536.8 DYSPEPSIA 03/17/2011 VELASQUEZ KAUR PSYD L 789.01 ABDOMINAL PAIN RIGHT UPPER QUADRANT 03/17/2011 VELASQUEZ KAUR PSYD L V12.72 PERSONAL HISTORY OF COLONIC POLYPS 03/17/2011 JEWELS ROMANO DO 536.8 DYSPEPSIA 03/17/2011 JEWELS ROMANO DO K [...] RICHARD VAUGHN, JEWELS 536.8 DYSPEPSIA 03/17/2011 RICHARD VAUGHN JEWELS 789.01 ABDOMINAL PAIN RIGHT UPPER QUADRANT 03/17/2011 RICHARD VAUGHN JEWELS V12.72 PERSONAL HISTORY OF COLONIC POLYPS 03/17/2011 RICHARD VAUGHN, JEWELS 536.8 DYSPEPSIA 03/17/2011 RICHARD VAUGHN JEWELS 789.01 ABDOMINAL PAIN RIGHT UPPER QUADRANT 03/17/2011 RICHARD VAUGHN JEWELS V12.72 PERSONAL HISTORY OF COLONIC POLYPS 03/17/2011 RICHARD VAUGHN, JEWELS 536.8 DYSPEPSIA 03/17/2011 RICHARD CONVENTION SERVICES DIRECTOR, JEWELS 789.01 ABDOMINAL PAIN RIGHT UPPER QUADRANT 03/17/2011 RICHARD VAUGHN JEWELS V12.72 PERSONAL HISTORY OF COLONIC POLYPS 04/10/2011 Ot 530.81 04/10/2011 Ot 575.11 04/10/2011 Ot 575.8 04/21/2011 JEWELS ROMANO DO V45.89 OTHER POSTSURGICAL STATUS 04/21/2011 V45.89 OTHER POSTSURGICAL STATUS 04/21/2011 V45.89 OTHER POSTSURGICAL STATUS 04/21/2011 MARIA GUADALUPE CONVENTION SERVICES DIRECTOR, TON S V45.89 OTHER POSTSURGICAL STATUS 04/21/2011 MARJORIE STRONG APRN V45.89 OTHER POSTSURGICAL STATUS 04/21/2011 V45.89 OTHER POSTSURGICAL STATUS 04/21/2011 V45.89 OTHER POSTSURGICAL STATUS 04/21/2011 V45.89 OTHER POSTSURGICAL STATUS 04/21/2011 MARIA GUADALUPE CONVENTION SERVICES DIRECTOR, TON S V45.89 OTHER POSTSURGICAL STATUS 04/21/2011 MARIA GUADALUPE CONVENTION SERVICES DIRECTOR, TON S V45.89 OTHER POSTSURGICAL STATUS 04/21/2011 BIANCA SHAH, ISAIAS V45.89 OTHER POSTSURGICAL STATUS 04/21/2011 MARIA GUADALUPE CONVENTION SERVICES DIRECTOR, TON S V45.89 OTHER POSTSURGICAL STATUS 04/21/2011 MARIA GUADALUPE CONVENTION SERVICES DIRECTOR, TON S V45.89 OTHER POSTSURGICAL STATUS 04/21/2011 MARIA GUADALUPE CONVENTION SERVICES DIRECTOR, TON S V45.89 OTHER POSTSURGICAL STATUS 04/21/2011 MARIA GUADALUPE CONVENTION SERVICES DIRECTOR, TON S V45.89 OTHER POSTSURGICAL STATUS 04/21/2011 MARIA GUADALUPE CONVENTION SERVICES DIRECTOR, TON S V45.89 OTHER POSTSURGICAL STATUS 04/21/2011 DIAZ CHAUDHARINCATHERINE V45.89 OTHER POSTSURGICAL STATUS 04/21/2011 MARIA GUADALUPE CONVENTION SERVICES DIRECTOR, TON S V45.89 OTHER POSTSURGICAL STATUS 04/21/2011 MARIA GUADALUPE CONVENTION SERVICES DIRECTOR, TON S V45.89 OTHER POSTSURGICAL STATUS 04/21/2011 MARIA GUADALUPE CONVENTION SERVICES DIRECTOR, TON S V45.89 OTHER POSTSURGICAL STATUS 04/21/2011 MARIA GUADALUPE CONVENTION SERVICES DIRECTOR, TON S V45.89 OTHER POSTSURGICAL STATUS 04/21/2011 VELASQUEZ KAUR PSYD V45.89 OTHER POSTSURGICAL STATUS 04/21/2011 JEWELS ROMANO DO V45.89 OTHER POSTSURGICAL STATUS 04/21/2011 VELASQUEZ KAUR PSYD V45.89 OTHER POSTSURGICAL STATUS 04/21/2011 SYMONE POST APRN V45.89 OTHER POSTSURGICAL STATUS 04/21/2011 RICHARD CONVENTION SERVICES DIRECTOR, JEWELS V45.89 OTHER POSTSURGICAL STATUS 04/21/2011 RICHARD CONVENTION SERVICES DIRECTOR, JEWELS V45.89 OTHER POSTSURGICAL STATUS 04/21/2011 JEWELS RAMOS APRN V45.89 OTHER POSTSURGICAL STATUS 09/16/2011 JEWELS ROMANO [...] S 726.32 LATERAL EPICONDYLITIS ELBOW REGION 09/16/2011 MCCLEEARY PSYD, GERONIMO L 726.32 LATERAL EPICONDYLITIS ELBOW REGION 09/16/2011 ROMANO JEWELS OTTO 726.32 LATERAL EPICONDYLITIS ELBOW REGION 09/16/2011 VELASQUEZ KAUR PSYD 726.32 LATERAL EPICONDYLITIS ELBOW REGION 09/16/2011 SYMONE POST APRN 726.32 LATERAL EPICONDYLITIS ELBOW REGION 09/16/2011 RICHARD CONVENTION SERVICES DIRECTOR, JEWELS 726.32 LATERAL EPICONDYLITIS ELBOW REGION 09/16/2011 RICHARD CONVENTION SERVICES DIRECTOR, JEWELS 726.32 LATERAL EPICONDYLITIS ELBOW REGION 09/16/2011 RICHARD CONVENTION SERVICES DIRECTOR, JEWELS 726.32 LATERAL EPICONDYLITIS ELBOW REGION 04/12/2012 [...] S 008.8 GASTROENTERITIS, VIRAL 04/12/2012 MARIA GUADALUPE CONVENTION SERVICES DIRECTOR, TON S V76.10 BREAST CANCER SCREENING 04/12/2012 MARIA GUADALUPE CONVENTION SERVICES DIRECTOR, TON S V76.2 CERVICAL CANCER SCREENING (PAP SMEAR) 04/12/2012 MARIA GUADALUPE VAUGHN TON S V76.51 COLON CANCER SCREENING 04/12/2012 MARIA GUADALUPE VAUGHN TON S 008.8 GASTROENTERITIS, VIRAL 04/12/2012 MARIA GUADALUPE CONVENTION SERVICES DIRECTOR, TON S V76.10 BREAST CANCER SCREENING 04/12/2012 [...] S 008.8 GASTROENTERITIS, VIRAL 04/12/2012 MARIA GUADALUPE VAUGHN TON S V76.10 BREAST CANCER SCREENING 04/12/2012 MARIA GUADALUPE VAUGHN TON S V76.2 CERVICAL CANCER SCREENING (PAP SMEAR) 04/12/2012 MARIA GUADALUPE VAUGHN TON S V76.51 COLON CANCER SCREENING 04/12/2012 MARIA GUADALUPE CONVENTION SERVICES DIRECTOR, TON S 008.8 GASTROENTERITIS, VIRAL 04/12/2012 MARIA GUADALUPE CONVENTION SERVICES DIRECTOR, TON S V76.10 BREAST CANCER SCREENING 04/12/2012 MARIA GUADALUPE CONVENTION SERVICES DIRECTOR, TON S V76.2 CERVICAL CANCER SCREENING (PAP SMEAR) 04/12/2012 MARIA GUADALUPE CONVENTION SERVICES DIRECTOR, TON S V76.51 COLON CANCER SCREENING 04/12/2012 MARIA GUADALUPE CONVENTION SERVICES DIRECTOR, TON S 008.8 GASTROENTERITIS, VIRAL 04/12/2012 MARIA GUADALUPE CONVENTION SERVICES DIRECTOR, TON S V76.10 BREAST CANCER SCREENING 04/12/2012 MARIA GUADALUPE CONVENTION SERVICES DIRECTOR, TON S V76.2 CERVICAL CANCER SCREENING (PAP SMEAR) 04/12/2012 MARIA GUADALUPE CONVENTION SERVICES DIRECTOR, TON S V76.51 COLON CANCER SCREENING 04/12/2012 MARIA GUADALUPE CONVENTION SERVICES DIRECTOR, TON S 008.8 GASTROENTERITIS, VIRAL 04/12/2012 MARIA GUADALUPE CONVENTION SERVICES DIRECTOR, TON S V76.10 BREAST CANCER SCREENING 04/12/2012 MARIA GUADALUPE CONVENTION SERVICES DIRECTOR, TON S V76.2 CERVICAL CANCER SCREENING (PAP SMEAR) 04/12/2012 MARIA GUADALUPE CONVENTION SERVICES DIRECTOR, TON S V76.51 COLON CANCER SCREENING 04/12/2012 MARIA GUADALUPE CONVENTION SERVICES DIRECTOR, TON S 008.8 GASTROENTERITIS, VIRAL 04/12/2012 MARIA GUADALUPE [employer]VENTION SERVICES DIRECTOR, TON S V76.10 BREAST CANCER SCREENING 04/12/2012 MARIA GUADALUPE CONVENTION SERVICES DIRECTOR, TON S V76.2 CERVICAL CANCER SCREENING (PAP SMEAR) 04/12/2012 MARIA GUADALUPE CONVENTION SERVICES DIRECTOR, TON S V76.51 COLON CANCER SCREENING 04/12/2012 CATHERINE PERALES APRN 008.8 GASTROENTERITIS, VIRAL 04/12/2012 CATHERINE PERALES APRN T V76.10 BREAST CANCER SCREENING 04/12/2012 CATHERINE PERALES APRN V76.2 CERVICAL CANCER SCREENING (PAP SMEAR) 04/12/2012 CATHERINE PERALES APRN V76.51 COLON CANCER SCREENING 04/12/2012 MARIA GUADALUPE CONVENTION SERVICES DIRECTOR, TON S 008.8 GASTROENTERITIS, VIRAL 04/12/2012 MARIA GUADALUPE CONVENTION SERVICES DIRECTOR, TON S V76.10 BREAST CANCER SCREENING 04/12/2012 MARIA GUADALUPE CONVENTION SERVICES DIRECTOR, TON S V76.2 CERVICAL CANCER SCREENING (PAP SMEAR) 04/12/2012 MARIA GUADALUPE CONVENTION SERVICES DIRECTOR, TON S V76.51 COLON CANCER SCREENING 04/12/2012 MARIA GUADALUPE CHAUDHARIN, TON S 008.8 GASTROENTERITIS, VIRAL 04/12/2012 MARIA GUADALUPE CONVENTION SERVICES DIRECTOR, TON S V76.10 BREAST CANCER SCREENING 04/12/2012 MARIA GUADALUPE CONVENTION SERVICES DIRECTOR, TON S V76.2 CERVICAL CANCER SCREENING (PAP SMEAR) 04/12/2012 MARIA GUADALUPE CONVENTION SERVICES DIRECTOR, TON S V76.51 COLON CANCER SCREENING 04/12/2012 MARIA GUADALUPE CONVENTION SERVICES DIRECTOR, TON S 008.8 GASTROENTERITIS, VIRAL 04/12/2012 MARIA GUADALUPE CONVENTION SERVICES DIRECTOR, TON S V76.10 BREAST CANCER SCREENING 04/12/2012 MARIA GUADALUPE CONVENTION SERVICES DIRECTOR, TON S V76.2 CERVICAL CANCER SCREENING (PAP SMEAR) 04/12/2012 MARIA GUADALUPE CONVENTION SERVICES DIRECTOR, TON S V76.51 COLON CANCER SCREENING 04/12/2012 MARIA GUADALUPE CHAUDHARIN, TON S 008.8 GASTROENTERITIS, VIRAL 04/12/2012 MARIA GUADALUPEGARY CHAUDHARIN, TON S V76.10 BREAST CANCER SCREENING 04/12/2012 MARIA GUADALUPE CONVENTION SERVICES DIRECTOR, TON S V76.2 CERVICAL CANCER SCREENING (PAP SMEAR) 04/12/2012 MARIA GUADALUPE CONVENTION SERVICES DIRECTOR, TON S V76.51 COLON CANCER SCREENING 04/12/2012 VELASQUEZ KAUR PSYD 008.8 GASTROENTERITIS, VIRAL 04/12/2012 VELASQUEZ KAUR PSYD L V76.10 BREAST CANCER SCREENING 04/12/2012 VELASQUEZ KAUR PSYD L V76.2 CERVICAL CANCER SCREENING (PAP SMEAR) 04/12/2012 VELASQUEZ KAUR PSYD L V76.51 COLON CANCER SCREENING 04/12/2012 ROMANO DO, JEWELS K 008.8 GASTROENTERITIS, VIRAL 04/12/2012 ROMANO DO JEWELS K V76.10 BREAST CANCER SCREENING 04/12/2012 [...] SYMONE POST APRN 008.8 GASTROENTERITIS, VIRAL 04/12/2012 SYMONE POST APRN V76.10 BREAST CANCER SCREENING 04/12/2012 SYMONE POST APRN V76.2 CERVICAL CANCER SCREENING (PAP SMEAR) 04/12/2012 SYMONE POST APRN V76.51 COLON CANCER SCREENING 04/12/2012 RICHARD CONVENTION SERVICES DIRECTOR, JEWELS 008.8 GASTROENTERITIS, VIRAL 04/12/2012 RICHARD CONVENTION SERVICES DIRECTOR, JEWELS V76.10 BREAST CANCER SCREENING 04/12/2012 RICHARD CONVENTION SERVICES DIRECTOR, JEWELS V76.2 CERVICAL CANCER SCREENING (PAP SMEAR) 04/12/2012 RICHARD CONVENTION SERVICES DIRECTOR, JEWELS V76.51 COLON CANCER SCREENING 04/12/2012 RICHARD CONVENTION SERVICES DIRECTOR, JEWELS 008.8 GASTROENTERITIS, VIRAL 04/12/2012 RICHARD CONVENTION SERVICES DIRECTOR, JEWELS V76.10 BREAST CANCER SCREENING 04/12/2012 RICHARD CONVENTION SERVICES DIRECTOR, JEWELS V76.2 CERVICAL CANCER SCREENING (PAP SMEAR) 04/12/2012 RICHARD CONVENTION SERVICES DIRECTOR, JEWELS V76.51 COLON CANCER SCREENING 04/12/2012 RICHARD CONVENTION SERVICES DIRECTOR, JEWELS 008.8 GASTROENTERITIS, VIRAL 04/12/2012 RICHARD CONVENTION SERVICES DIRECTOR, JEWELS V76.10 BREAST CANCER SCREENING 04/12/2012 RICHARD CONVENTION SERVICES DIRECTOR, JEWELS V76.2 CERVICAL CANCER SCREENING (PAP SMEAR) 04/12/2012 RICHARD CONVENTION SERVICES DIRECTOR, JEWELS V76.51 COLON CANCER SCREENING 04/17/2012 JEWELS ROMANO DO 528.2 ORAL APHTHAE 04/17/2012 528.2 ORAL APHTHAE 04/17/2012 528.2 ORAL APHTHAE 04/17/2012 TON LERMA APRN 528.2 ORAL APHTHAE 04/17/2012 MARJORIE STRONG APRN 528.2 ORAL APHTHAE 04/17/2012 528.2 ORAL APHTHAE 04/17/2012 528.2 ORAL APHTHAE 04/17/2012 528.2 ORAL APHTHAE 04/17/2012 MARIA GUADALUPE VAUGHN, TON S 528.2 ORAL APHTHAE 04/17/2012 MARIA GUADALUPE VAUGHN, TON S 528.2 ORAL APHTHAE 04/17/2012 ISAIAS VALENZUELA MD 528.2 ORAL APHTHAE 04/17/2012 MARIA GUADALUPE CONVENTION SERVICES DIRECTOR, TON S 528.2 ORAL APHTHAE 04/17/2012 MARIA GUADALUPE CONVENTION SERVICES DIRECTOR, TON S 528.2 ORAL APHTHAE 04/17/2012 MARIA GUADALUPE CONVENTION SERVICES DIRECTOR, TON S 528.2 ORAL APHTHAE 04/17/2012 MARIA GUADALUPE CONVENTION SERVICES DIRECTOR, TON S 528.2 ORAL APHTHAE 04/17/2012 MARIA GUADALUPE CONVENTION SERVICES DIRECTOR, TON S 528.2 ORAL APHTHAE 04/17/2012 CATHERINE PERALES APRN 528.2 ORAL APHTHAE 04/17/2012 MARIA GUADALUPE CONVENTION SERVICES DIRECTOR, TON S 528.2 ORAL APHTHAE 04/17/2012 MARIA GUADALUPE VAUGHN, TON S 528.2 ORAL APHTHAE 04/17/2012 MARIA GUADALUPE CONVENTION SERVICES DIRECTOR, TON S 528.2 ORAL APHTHAE 04/17/2012 MARIA GUADALUPE CONVENTION SERVICES DIRECTOR, TON S 528.2 ORAL APHTHAE 04/17/2012 VELASQUEZ KAUR PSYD 528.2 ORAL APHTHAE 04/17/2012 JEWELS ROMANO DO 528.2 ORAL APHTHAE 04/17/2012 VELASQUEZ KAUR PSYD 528.2 ORAL APHTHAE 04/17/2012 SYMONE POST APRN 528.2 ORAL APHTHAE 04/17/2012 JEWELS RAMOS APRN 528.2 ORAL APHTHAE 04/17/2012 JEWELS RAMOS APRN 528.2 ORAL APHTHAE 04/17/2012 RICHARD JOHANA JEWELS 528.2 ORAL APHTHAE 04/20/2012 Ot 528.9 [...] VAUGHN TON S 535.50 GASTRITIS UNSPEC 07/01/2012 QUINTEN LERMA APRNNDA S 729.1 MYALGIA AND MYOSITIS UNSPECIFIED 07/01/2012 ISAIAS VALENZUELA MD 535.50 GASTRITIS UNSPEC 07/01/2012 ISAIAS VALENZUELA MD 729.1 MYALGIA AND MYOSITIS UNSPECIFIED 07/01/2012 QUINTEN LERMA APRNNDA S 535.50 GASTRITIS UNSPEC 07/01/2012 QUINTEN LERMA APRNNDA S 729.1 MYALGIA AND MYOSITIS UNSPECIFIED 07/01/2012 MARIA GUADALUPE VAUGHN, TON S 535.50 GASTRITIS UNSPEC 07/01/2012 QUINTEN LERMA APRNNDA S 729.1 MYALGIA AND MYOSITIS UNSPECIFIED 07/01/2012 MARIA GUADALUPE VAUGHN TON S 535.50 GASTRITIS UNSPEC 07/01/2012 MARIA GUADALUPE VAUGHN TON S 729.1 MYALGIA AND MYOSITIS UNSPECIFIED 07/01/2012 MARIA GUADALUPE VAUGHN TON S 535.50 GASTRITIS UNSPEC 07/01/2012 MARIA GUADALUPE CONVENTION SERVICES DIRECTOR, TON S 729.1 MYALGIA AND MYOSITIS UNSPECIFIED 07/01/2012 MARIA GUADALUPE VAUGHN, TON S 535.50 GASTRITIS UNSPEC 07/01/2012 MARIA GUADALUPE VAUGHN, TON S 729.1 MYALGIA AND MYOSITIS UNSPECIFIED 07/01/2012 CATHERINE PERALES APRN 535.50 GASTRITIS UNSPEC 07/01/2012 CATHERINE PERAELS APRN 729.1 MYALGIA AND MYOSITIS UNSPECIFIED 07/01/2012 [...] 535.50 GASTRITIS UNSPEC 07/01/2012 MARIA GUADALUPE VAUGHN, TNO S 729.1 MYALGIA AND MYOSITIS UNSPECIFIED 07/01/2012 VELASQUEZ KAUR PSYD 535.50 GASTRITIS UNSPEC 07/01/2012 VELASQUEZ KAUR PSYD L 729.1 MYALGIA AND MYOSITIS UNSPECIFIED 07/01/2012 JEWELS [...] RAMOS APRN 535.50 GASTRITIS UNSPEC 07/01/2012 RICHARD VAUGHN, JEWELS 729.1 MYALGIA AND MYOSITIS UNSPECIFIED 07/01/2012 RICHARD VAUGHN, JEWELS 535.50 GASTRITIS UNSPEC 07/01/2012 RICHARD CONVENTION SERVICES DIRECTOR, JEWELS 729.1 MYALGIA AND MYOSITIS UNSPECIFIED 07/01/2012 RICHARDALFREDO VAUGHN, JEWELS 535.50 GASTRITIS UNSPEC 07/01/2012 RICHARD CONVENTION SERVICES DIRECTOR, JEWELS 729.1 MYALGIA AND MYOSITIS UNSPECIFIED 07/05/2012 Ot 729.5 PAIN IN LIMB 08/04/2012 MARJORIE STRONG APRN 782.3 EDEMA 08/04/2012 782.3 EDEMA 08/04/2012 782.3 EDEMA 08/04/2012 782.3 EDEMA 08/04/2012 MARIA GUADALUPE VAUGHN, TON S 782.3 EDEMA 08/04/2012 MARIA GUADALUPE VAUGHN, TON S 782.3 EDEMA 08/04/2012 ISAIAS VALENZUELA MD 782.3 EDEMA 08/04/2012 MARIA GUADALUPE CONVENTION SERVICES DIRECTOR, TON S 782.3 EDEMA 08/04/2012 MARIA GUADALUPE CONVENTION SERVICES DIRECTOR, TON S 782.3 EDEMA 08/04/2012 MARIA GUADALUPE CONVENTION SERVICES DIRECTOR, TON S 782.3 EDEMA 08/04/2012 MARIA GUADALUPE CONVENTION SERVICES DIRECTOR, TON S 782.3 EDEMA 08/04/2012 MARIA GUADALUPE CONVENTION SERVICES DIRECTOR, TON S 782.3 EDEMA 08/04/2012 CATHERINE PERALES APRN 782.3 EDEMA 08/04/2012 MARIA GUADALUPE CONVENTION SERVICES DIRECTOR, TON S 782.3 EDEMA 08/04/2012 MARIA GUADALUPE CONVENTION SERVICES DIRECTOR, TON S 782.3 EDEMA 08/04/2012 MARIA GUADALUPE CONVENTION SERVICES DIRECTOR, TON S 782.3 EDEMA 08/04/2012 MARIA GUADALUPE CONVENTION SERVICES DIRECTOR, TON S 782.3 EDEMA 08/04/2012 VELASQUEZ KAUR PSYD 782.3 EDEMA 08/04/2012 JEWELS ROMANO DO 782.3 EDEMA 08/04/2012 VELASQUEZ KAUR PSYD 782.3 EDEMA 08/04/2012 SYMONE POST APRN 782.3 EDEMA 08/04/2012 RICHARD CONVENTION SERVICES DIRECTOR, JEWELS 782.3 EDEMA 08/04/2012 RICHARD CONVENTION SERVICES DIRECTOR, JEWELS 782.3 EDEMA 08/04/2012 RICHARD CONVENTION SERVICES DIRECTOR, JEWELS 782.3 EDEMA 08/18/2012 780.4 DIZZINESS AND VERTIGO 08/18/2012 780.4 DIZZINESS AND VERTIGO 08/18/2012 780.4 DIZZINESS AND VERTIGO 08/18/2012 MARIA GUADALUPE CONVENTION SERVICES DIRECTOR, TON S 780.4 DIZZINESS AND VERTIGO 08/18/2012 MARIA GUADALUPE CONVENTION SERVICES DIRECTOR, TON S 780.4 DIZZINESS AND VERTIGO 08/18/2012 ISAIAS VALENZUELA MD 780.4 DIZZINESS AND VERTIGO 08/18/2012 MARIA GUADALUPE CONVENTION SERVICES DIRECTOR, TON S 780.4 DIZZINESS AND VERTIGO 08/18/2012 MARIA GUADALUPE CONVENTION SERVICES DIRECTOR, TON S 780.4 DIZZINESS AND VERTIGO 08/18/2012 MARIA GUADALUPE CONVENTION SERVICES DIRECTOR, TON S 780.4 DIZZINESS AND VERTIGO 08/18/2012 MARIA GUADALUPE CONVENTION SERVICES DIRECTOR, TON S 780.4 DIZZINESS AND VERTIGO 08/18/2012 MARIA GUADALUPE CONVENTION SERVICES DIRECTOR, TON S 780.4 DIZZINESS AND VERTIGO 08/18/2012 CATHERINE PERALES APRN 780.4 DIZZINESS AND VERTIGO 08/18/2012 MARIA GUADALUPE CONVENTION SERVICES DIRECTOR, TON S 780.4 DIZZINESS AND VERTIGO 08/18/2012 MARIA GUADALUPE CONVENTION SERVICES DIRECTOR, TON S 780.4 DIZZINESS AND VERTIGO 08/18/2012 MARIA GUADALUPE CONVENTION SERVICES DIRECTOR, TON S 780.4 DIZZINESS AND VERTIGO 08/18/2012 MARIA GUADALUPE CONVENTION SERVICES DIRECTOR, TON S 780.4 DIZZINESS AND VERTIGO 08/18/2012 VELASQUEZ KAUR PSYD 780.4 DIZZINESS AND VERTIGO 08/18/2012 JEWELS ROMANO DO 780.4 DIZZINESS AND VERTIGO 08/18/2012 VELASQUEZ KAUR PSYD 780.4 DIZZINESS AND VERTIGO 08/18/2012 SYMONE POST APRN 780.4 DIZZINESS AND VERTIGO 08/18/2012 RICHARD CONVENTION SERVICES DIRECTOR, JEWELS 780.4 DIZZINESS AND VERTIGO 08/18/2012 RICHARD CONVENTION SERVICES DIRECTOR, JEWELS 780.4 DIZZINESS AND VERTIGO 08/18/2012 RICHARD CONVENTION SERVICES DIRECTOR, JEWELS 780.4 DIZZINESS AND VERTIGO 11/03/2012 530.81 GERD 11/03/2012 789.06 ABDOMINAL PAIN EPIGASTRIC 11/03/2012 530.81 GERD 11/03/2012 789.06 ABDOMINAL PAIN EPIGASTRIC 11/03/2012 MARIA GUADALUPE CONVENTION SERVICES DIRECTOR, TON S 530.81 GERD 11/03/2012 MARIA GUADALUPE CONVENTION SERVICES DIRECTOR, TON S 789.06 ABDOMINAL PAIN EPIGASTRIC 11/03/2012 MARIA GUADALUPE CONVENTION SERVICES DIRECTOR, TON S 530.81 GERD 11/03/2012 MARIA GUADALUPE CONVENTION SERVICES DIRECTOR, TON S 789.06 ABDOMINAL PAIN EPIGASTRIC 11/03/2012 ISAIAS VALENZUELA MD 530.81 GERD 11/03/2012 ISAIAS VALENZUELA MD 789.06 ABDOMINAL PAIN EPIGASTRIC 11/03/2012 MARIA GUADALUPE CONVENTION SERVICES DIRECTOR, TON S 530.81 GERD 11/03/2012 MARIA GUADALUPE CONVENTION SERVICES DIRECTOR, TON S 789.06 ABDOMINAL PAIN EPIGASTRIC 11/03/2012 MARIA GUADALUPE CONVENTION SERVICES DIRECTOR, TON S 530.81 GERD 11/03/2012 MARIA GUADALUPE CONVENTION SERVICES DIRECTOR, TON S 789.06 ABDOMINAL PAIN EPIGASTRIC 11/03/2012 MARIA GUADALUPE CONVENTION SERVICES DIRECTOR, TON S 530.81 GERD 11/03/2012 MARIA GUADALUPE CONVENTION SERVICES DIRECTOR, TON S 789.06 ABDOMINAL PAIN EPIGASTRIC 11/03/2012 MARIA GUADALUPE CONVENTION SERVICES DIRECTOR, TON S 530.81 GERD 11/03/2012 MARIA GUADALUPE CONVENTION SERVICES DIRECTOR, TON S 789.06 ABDOMINAL PAIN EPIGASTRIC 11/03/2012 MARIA GUADALUPE CONVENTION SERVICES DIRECTOR, TON S 530.81 GERD 11/03/2012 MARIA GUADALUPE CONVENTION SERVICES DIRECTOR, TON S 789.06 ABDOMINAL PAIN EPIGASTRIC 11/03/2012 DIAZ CONVENTION SERVICES DIRECTOR, CATHERINE T 530.81 GERD 11/03/2012 DIAZ CONVENTION SERVICES DIRECTOR, CATHERINE T 789.06 ABDOMINAL PAIN EPIGASTRIC 11/03/2012 MARIA GUADALUPE CONVENTION SERVICES DIRECTOR, TON S 530.81 GERD 11/03/2012 MARIA GUADLAUPE CONVENTION SERVICES DIRECTOR, TON S 789.06 ABDOMINAL PAIN EPIGASTRIC 11/03/2012 MARIA GUADALUPE CONVENTION SERVICES DIRECTOR, TON S 530.81 GERD 11/03/2012 MARIA GUADALUPE CONVENTION SERVICES DIRECTOR, TON S 789.06 ABDOMINAL PAIN EPIGASTRIC 11/03/2012 MARIA GUADALUPE CONVENTION SERVICES DIRECTOR, TON S 530.81 GERD 11/03/2012 MARIA GUADALUPE CONVENTION SERVICES DIRECTOR, TON S 789.06 ABDOMINAL PAIN EPIGASTRIC 11/03/2012 MARIA GUADALUPE CONVENTION SERVICES DIRECTOR, TON S 530.81 GERD 11/03/2012 MARIA GUADALUPE CONVENTION SERVICES DIRECTOR, TON S 789.06 ABDOMINAL PAIN EPIGASTRIC 11/03/2012 VELASQUEZ KAUR PSYD L 530.81 GERD 11/03/2012 VELASQUEZ KAUR PSYD L 789.06 ABDOMINAL PAIN EPIGASTRIC 11/03/2012 ROMANO DO, JEWELS K 530.81 GERD 11/03/2012 ROMANO DO, JEWELS K 789.06 ABDOMINAL PAIN EPIGASTRIC 11/03/2012 VELASQUEZ KAUR PSYD L 530.81 GERD 11/03/2012 VELASQUEZ KAUR PSYD 789.06 ABDOMINAL PAIN EPIGASTRIC 11/03/2012 SYMONE POST APRN 530.81 GERD 11/03/2012 SYMONE POST APRN 789.06 ABDOMINAL PAIN EPIGASTRIC 11/03/2012 RICHARD CONVENTION SERVICES DIRECTOR, JEWELS 530.81 GERD 11/03/2012 RICHARD CONVENTION SERVICES DIRECTOR, JEWELS 789.06 ABDOMINAL PAIN EPIGASTRIC 11/03/2012 RICHARD CONVENTION SERVICES DIRECTOR, JEWELS 530.81 GERD 11/03/2012 RICHARD CONVENTION SERVICES DIRECTOR, JEWELS 789.06 ABDOMINAL PAIN EPIGASTRIC 11/03/2012 RICHARD CONVENTION SERVICES DIRECTOR, JEWELS 530.81 GERD 11/03/2012 RICHARD CONVENTION SERVICES DIRECTOR, JEWELS 789.06 ABDOMINAL PAIN EPIGASTRIC 02/21/2013 MARIA GUADALUPE VAUGHN, TON S 611.6 GALACTORRHEA 02/21/2013 MARIA GUADALUPE CHAUDHARIN, TON S V58.69 HIGH RISK MEDICATION 02/21/2013 ISAIAS VALENZUELA MD 611.6 GALACTORRHEA 02/21/2013 ISAIAS VALENZUELA MD V58.69 HIGH RISK MEDICATION 02/21/2013 MARIA GUADALUPE CONVENTION SERVICES DIRECTOR, TON S 611.6 GALACTORRHEA 02/21/2013 MARIA GUADALUPE CONVENTION SERVICES DIRECTOR, TON S V58.69 HIGH RISK MEDICATION 02/21/2013 MARIA GUADALUPE CONVENTION SERVICES DIRECTOR, TON S 611.6 GALACTORRHEA 02/21/2013 MARIA GUADALUPE CHAUDHARIN, TON S V58.69 HIGH RISK MEDICATION 02/21/2013 MARIA GUADALUPE CONVENTION SERVICES DIRECTOR, TON S 611.6 GALACTORRHEA 02/21/2013 MARIA GUADALUPE CONVENTION SERVICES DIRECTOR, TON S V58.69 HIGH RISK MEDICATION 02/21/2013 MARIA GUADALUPE CONVENTION SERVICES DIRECTOR, TON S 611.6 GALACTORRHEA 02/21/2013 MARIA GUADALUPE CONVENTION SERVICES DIRECTOR, TON S V58.69 HIGH RISK MEDICATION 02/21/2013 MARIA GUADALUPE CONVENTION SERVICES DIRECTOR, TON S 611.6 GALACTORRHEA 02/21/2013 MARIA GUADALUPE CONVENTION SERVICES DIRECTOR, TNO S V58.69 HIGH RISK MEDICATION 02/21/2013 DIAZ CONVENTION SERVICES DIRECTOR, CATHERINE T 611.6 GALACTORRHEA 02/21/2013 DIAZ CONVENTION SERVICES DIRECTOR CATHERINE T V58.69 HIGH RISK MEDICATION 02/21/2013 MARIA GUADALUPE CONVENTION SERVICES DIRECTOR, TON S 611.6 GALACTORRHEA 02/21/2013 MARIA GUADALUPE CONVENTION SERVICES DIRECTOR, TON S V58.69 HIGH RISK MEDICATION 02/21/2013 MARIA GUADALUPE CONVENTION SERVICES DIRECTOR, TON S 611.6 GALACTORRHEA 02/21/2013 MARIA GUADALUPE CONVENTION SERVICES DIRECTOR, TON S V58.69 HIGH RISK MEDICATION 02/21/2013 MARIA GUADALUPE CONVENTION SERVICES DIRECTOR, TON S 611.6 GALACTORRHEA 02/21/2013 MARIA GUADALUPE CONVENTION SERVICES DIRECTOR, TON S V58.69 HIGH RISK MEDICATION 02/21/2013 MARIA GUADALUPE CONVENTION SERVICES DIRECTOR, TON S 611.6 GALACTORRHEA 02/21/2013 MARIA GUADALUPE CONVENTION SERVICES DIRECTOR, TON S V58.69 HIGH RISK MEDICATION 02/21/2013 [...] APRN V58.69 HIGH RISK MEDICATION 02/21/2013 RICHARD CONVENTION SERVICES DIRECTOR, JEWELS 611.6 GALACTORRHEA 02/21/2013 RICHARD CONVENTION SERVICES DIRECTOR, JEWELS V58.69 HIGH RISK MEDICATION 02/21/2013 RICHARD CONVENTION SERVICES DIRECTOR, JEWELS 611.6 GALACTORRHEA 02/21/2013 RICHARD CONVENTION SERVICES DIRECTOR, JEWELS V58.69 HIGH RISK MEDICATION 02/21/2013 RICHARD CONVENTION SERVICES DIRECTOR, JEWELS 611.6 GALACTORRHEA 02/21/2013 RICHARD CONVENTION SERVICES DIRECTOR, JEWELS V58.69 HIGH RISK MEDICATION 03/08/2013 BIANCA SHAH, ISAIAS 461.9 SINUSITIS ACUTE 03/08/2013 MARIA GUADALUPE CONVENTION SERVICES DIRECTOR, TON S 461.9 SINUSITIS ACUTE 03/08/2013 MARIA GUADALUPE CONVENTION SERVICES DIRECTOR, TON S 461.9 SINUSITIS ACUTE 03/08/2013 MARIA GUADALUPE CONVENTION SERVICES DIRECTOR, TON S 461.9 SINUSITIS ACUTE 03/08/2013 MARIA GUADALUPE CONVENTION SERVICES DIRECTOR, TON S 461.9 SINUSITIS ACUTE 03/08/2013 MARIA GUADALUPE CONVENTION SERVICES DIRECTOR, TON S 461.9 SINUSITIS ACUTE 03/08/2013 DIAZ CONVENTION SERVICES DIRECTORCATHERINE Ramos 461.9 SINUSITIS ACUTE 03/08/2013 MARIA GUADALUPE CONVENTION SERVICES DIRECTOR, TON S 461.9 SINUSITIS ACUTE 03/08/2013 MARIA GUADALUPE CONVENTION SERVICES DIRECTOR, TON S 461.9 SINUSITIS ACUTE 03/08/2013 MARIA GUADALUPE CONVENTION SERVICES DIRECTOR, TON S 461.9 SINUSITIS ACUTE 03/08/2013 MARIA GUADALUPE CONVENTION SERVICES DIRECTOR, TON S 461.9 SINUSITIS ACUTE 03/08/2013 VELASQUEZ KAUR PSYD 461.9 SINUSITIS ACUTE 03/08/2013 JEWELS ROMANO DO 461.9 SINUSITIS ACUTE 03/08/2013 VELASQUEZ KAUR PSYD 461.9 SINUSITIS ACUTE 03/08/2013 SYMONE POST APRN 461.9 SINUSITIS ACUTE 03/08/2013 RICHARD CONVENTION SERVICES DIRECTOR, JEWELS 461.9 SINUSITIS ACUTE 03/08/2013 RICHARD CONVENTION SERVICES DIRECTOR, JEWELS 461.9 SINUSITIS ACUTE 03/08/2013 RICHARD CONVENTION SERVICES DIRECTOR, JEWELS 461.9 SINUSITIS ACUTE 03/22/2013 MARIA GUADALUPE CONVENTION SERVICES DIRECTOR, TON S 627.2 hot flashes 03/22/2013 MARIA GUADALUPE CONVENTION SERVICES DIRECTOR, TON S 627.2 hot flashes 03/22/2013 MARIA GUADALUPE CONVENTION SERVICES DIRECTOR, TON S 627.2 HOT FLASHES 03/22/2013 MARIA GUADALUPE CONVENTION SERVICES DIRECTOR, TON S 627.2 HOT FLASHES 03/22/2013 MARIA GUADALUPE CONVENTION SERVICES DIRECTOR, TON S 627.2 HOT FLASHES 03/22/2013 CATHERINE PERALES APRN 627.2 HOT FLASHES 03/22/2013 MARIA GUADALUPE CONVENTION SERVICES DIRECTOR, TON S 627.2 HOT FLASHES 03/22/2013 MARIA GUADALUPE CONVENTION SERVICES DIRECTOR, TON S 627.2 HOT FLASHES 03/22/2013 MARIA GUADALUPE CONVENTION SERVICES DIRECTOR, TON S 627.2 HOT FLASHES 03/22/2013 MARIA GUADALUPE CONVENTION SERVICES DIRECTOR, TON S 627.2 HOT FLASHES 03/22/2013 VELASQUEZ KAUR PSYD L 627.2 HOT FLASHES 03/22/2013 JEWELS ROMANO DO K 627.2 HOT FLASHES 03/22/2013 VELASQUEZ KAUR PSYD L 627.2 HOT FLASHES 03/22/2013 POST CONVENTION SERVICES DIRECTOR, SYMONE D 627.2 HOT FLASHES 03/22/2013 RICHARD CONVENTION SERVICES DIRECTOR, JEWELS 627.2 HOT FLASHES 03/22/2013 RICHARD CONVENTION SERVICES DIRECTOR, JEWELS 627.2 HOT FLASHES 03/22/2013 RICHARD CONVENTION SERVICES DIRECTOR, JEWELS 627.2 HOT FLASHES 03/29/2013 MARIA GUADALUPE CONVENTION SERVICES DIRECTOR, TON S 300.00 ANXIETY UNSPEC 03/29/2013 MARIA GUADALUPE CONVENTION SERVICES DIRECTOR, TON S 300.00 ANXIETY UNSPEC 03/29/2013 MARIA GUADALUPE CONVENTION SERVICES DIRECTOR, TON S 300.00 ANXIETY UNSPEC 03/29/2013 MARIA GUADALUPE CONVENTION SERVICES DIRECTOR, TON S 300.00 ANXIETY UNSPEC 03/29/2013 MARIA GUADALUPE CONVENTION SERVICES DIRECTOR, TON S 300.00 ANXIETY UNSPEC 03/29/2013 CATHERINE PERALES APRN 300.00 ANXIETY UNSPEC 03/29/2013 MARIA GUADALUPE CONVENTION SERVICES DIRECTOR, TON S 300.00 ANXIETY UNSPEC 03/29/2013 MARIA GUADALUPE CONVENTION SERVICES DIRECTOR, TON S 300.00 ANXIETY UNSPEC 03/29/2013 MARIA GUADALUPE CONVENTION SERVICES DIRECTOR, TON S 300.00 ANXIETY UNSPEC 03/29/2013 BRITNEY LERMA APRNA S 300.00 ANXIETY UNSPEC 03/29/2013 VELASQUEZ KAUR PSYD L 300.00 ANXIETY UNSPEC 03/29/2013 JEWELS ROMANO DO 300.00 ANXIETY UNSPEC 03/29/2013 VELASQUEZ KAUR PSYD L 300.00 ANXIETY UNSPEC 03/29/2013 POSTAudrey CHAUDHARINSYMONE 300.00 ANXIETY UNSPEC 03/29/2013 RICHARD CONVENTION SERVICES DIRECTOR, JEWELS 300.00 ANXIETY UNSPEC 03/29/2013 RICHARD CONVENTION SERVICES DIRECTOR, JEWELS 300.00 ANXIETY UNSPEC 03/29/2013 RICHARD CONVENTION SERVICES DIRECTOR, JEWELS 300.00 ANXIETY UNSPEC 05/23/2013 TON LERMA [...] LERMA APRNA S 719.47 PAIN- FOOT 05/23/2013 QUINTEN LERMA [...] IN JOINT INVOLVING LOWER LEG 05/23/2013 RICHARD JOHANA JEWELS 719.47 PAIN- FOOT 05/23/2013 RICHARD JOHANA JEWELS 719.46 PAIN IN JOINT INVOLVING LOWER LEG 05/23/2013 RICHARDALFREDO VAUGHN JEWELS 719.47 PAIN- FOOT 05/23/2013 RICHARD JOHANA JEWELS 719.46 PAIN IN JOINT INVOLVING LOWER LEG 05/23/2013 RICHARDALFREDO VAUGHN JEWELS 719.47 PAIN- FOOT 06/09/2013 FRANKLYN HERNÁNDEZ MD Ot 558.9 NONINF GASTROENTERIT NEC 06/09/2013 FRANKLYN HERNÁNDEZ MD Ot 787.01 NAUSEA WITH VOMITING 10/06/2013 TON LERMA APRN S 692.6 POISON REBA 10/06/2013 TON LERMA APRN 692.6 POISON REBA 10/06/2013 TON LERMA APRN 692.6 POISON REBA 10/06/2013 CATHERINE PERALES APRN 692.6 POISON REBA 10/06/2013 MARIA GUADALUPE CONVENTION SERVICES DIRECTOR, TON S 692.6 POISON REBA 10/06/2013 MARIA GUADALUPE CONVENTION SERVICES DIRECTOR, TON S 692.6 POISON REBA 10/06/2013 MARIA GUADALUPE CONVENTION SERVICES DIRECTOR, TON S 692.6 POISON REBA 10/06/2013 MARIA GUADALUPE CONVENTION SERVICES DIRECTOR, TON S 692.6 POISON REBA 10/06/2013 VELASQUEZ KAUR PSYD L 692.6 POISON REBA 10/06/2013 JEWELS ROMANO DO K 692.6 POISON REBA 10/06/2013 VELASQUEZ KAUR PSYD L 692.6 POISON REBA 10/06/2013 SYMONE POST APRN 692.6 POISON REBA 10/06/2013 RICHARD CONVENTION SERVICES DIRECTOR, JEWELS 692.6 POISON REBA 10/06/2013 RCIHARD CONVENTION SERVICES DIRECTOR, JEWELS 692.6 POISON REBA 10/06/2013 RICHARD CONVENTION SERVICES DIRECTOR, JEWELS 692.6 POISON REBA 11/09/2013 AMRIA GUADALUPE CHAUDHARIN, TON S 787.91 DIARRHEA 11/09/2013 MARIA GUADALUPE CONVENTION SERVICES DIRECTOR, TON S 787.91 DIARRHEA 11/09/2013 CATHERINE PERALES APRN 787.91 DIARRHEA 11/09/2013 MARIA GUADALUPE CONVENTION SERVICES DIRECTOR, TON S 787.91 DIARRHEA 11/09/2013 MARIA GUADALUPE CONVENTION SERVICES DIRECTOR, TON S 787.91 DIARRHEA 11/09/2013 MARIA GUADALUPE CONVENTION SERVICES DIRECTOR, TON S 787.91 DIARRHEA 11/09/2013 MARIA GUADALUPE CONVENTION SERVICES DIRECTOR, TON S 787.91 DIARRHEA 11/09/2013 VELASQUEZ KAUR PSYD L 787.91 DIARRHEA 11/09/2013 JEWELS ROMANO DO K 787.91 DIARRHEA 11/09/2013 VELASQUEZ KAUR PSYD L 787.91 DIARRHEA 11/09/2013 SYMONE POST APRN 787.91 DIARRHEA 11/09/2013 RICHARD CONVENTION SERVICES DIRECTOR, JEWELS 787.91 DIARRHEA 11/09/2013 RICHARD CONVENTION SERVICES DIRECTOR, JEWELS 787.91 DIARRHEA 11/09/2013 RICHARD CONVENTION SERVICES DIRECTOR, JEWELS 787.91 DIARRHEA 11/29/2013 MARIA GUADALUPE VAUGHN, TON S 790.6 Liver Function Test, Abnormal 11/29/2013 MARIA GUADALUPE CONVENTION SERVICES DIRECTOR, TON S 790.6 Liver Function Test, Abnormal 11/29/2013 DIAZ VAUGHN, CATHERINE T 790.6 Liver Function Test, Abnormal 11/29/2013 MARIA GUADALUPE CONVENTION SERVICES DIRECTOR, TON S 790.6 Liver Function Test, Abnormal 11/29/2013 MARIA GUADALUPE CONVENTION SERVICES DIRECTOR, TON S 790.6 Liver Function Test, Abnormal 11/29/2013 MARIA GUADALUPE CONVENTION SERVICES DIRECTOR, TON S 790.6 Liver Function Test, Abnormal 11/29/2013 MARIA GUADALUPE CONVENTION SERVICES DIRECTOR, TON S 790.6 Liver Function Test, Abnormal 11/29/2013 VELASQUEZ KAUR PSYD L 790.6 Liver Function Test, Abnormal 11/29/2013 JEWELS ROMANO DO 790.6 Liver Function Test, Abnormal 11/29/2013 VELASQUEZ KAUR PSYD ANN L 790.6 Liver Function Test, Abnormal 11/29/2013 SYMONE POST APRN D 790.6 Liver Function Test, Abnormal 11/29/2013 RICHARD CONVENTION SERVICES DIRECTOR, JEWELS 790.6 Liver Function Test, Abnormal 11/29/2013 RICHARD CONVENTION SERVICES DIRECTOR, JEWELS 790.6 Liver Function Test, Abnormal 11/29/2013 RICHARD CONVENTION SERVICES DIRECTOR, JEWELS 790.6 Liver Function Test, Abnormal 12/14/2013 DIAZ VAUGHN, CATHERINE T 466.0 BRONCHITIS, ACUTE 12/14/2013 DIAZ JOHANA, CATHERINE T 724.2 BACK PAIN, LOWER 12/14/2013 MARIA GUADALUPE CONVENTION SERVICES DIRECTOR, TON S 466.0 BRONCHITIS, ACUTE 12/14/2013 MARIA GUADALUPE CONVENTION SERVICES DIRECTOR, TON S 724.2 BACK PAIN, LOWER 12/14/2013 MARIA GUADALUPE CONVENTION SERVICES DIRECTOR, TON S 466.0 BRONCHITIS, ACUTE 12/14/2013 MARIA GUADALUPE CONVENTION SERVICES DIRECTOR, TON S 724.2 BACK PAIN, LOWER 12/14/2013 MARIA GUADALUPE CONVENTION SERVICES DIRECTOR, TON S 466.0 BRONCHITIS, ACUTE 12/14/2013 MARIA GUADALUPE CONVENTION SERVICES DIRECTOR, TON S 724.2 BACK PAIN, LOWER 12/14/2013 MARIA GUADALUPE CONVENTION SERVICES DIRECTOR, TON S 466.0 BRONCHITIS, ACUTE 12/14/2013 MARIA GUADALUPE CONVENTION SERVICES DIRECTOR, TON S 724.2 BACK PAIN, LOWER 12/14/2013 NATASHA PERALES, GERONIMO L 466.0 BRONCHITIS, ACUTE 12/14/2013 MCCDARCY ARIASYD, GERONIMO L 724.2 BACK PAIN, LOWER 12/14/2013 ROMANO DO, JEWELS K 466.0 BRONCHITIS, ACUTE 12/14/2013 ROMANO DO, JEWELS K 724.2 BACK PAIN, LOWER 12/14/2013 MCCDARCY ARIASYD, GERONIMO L 466.0 BRONCHITIS, ACUTE 12/14/2013 MCCDARCY PSYD, GERONIMO L 724.2 BACK PAIN, LOWER 12/14/2013 POST CONVENTION SERVICES DIRECTOR, SYMONE D 466.0 BRONCHITIS, ACUTE 12/14/2013 POST CONVENTION SERVICES DIRECTOR, SYMONE D 724.2 BACK PAIN, LOWER 12/14/2013 RICHARD CONVENTION SERVICES DIRECTOR, JEWELS 466.0 BRONCHITIS, ACUTE 12/14/2013 RICHARD CONVENTION SERVICES DIRECTOR, JEWELS 724.2 BACK PAIN, LOWER 12/14/2013 RICHARD CONVENTION SERVICES DIRECTOR, JEWELS 466.0 BRONCHITIS, ACUTE 12/14/2013 RICHARD CONVENTION SERVICES DIRECTOR, JEWELS 724.2 BACK PAIN, LOWER 12/14/2013 RICHARD CONVENTION SERVICES DIRECTOR, JEWELS 466.0 BRONCHITIS, ACUTE 12/14/2013 RICHARD CONVENTION SERVICES DIRECTOR, JEWELS 724.2 BACK PAIN, LOWER 12/29/2013 MARIA GUADALUPE CONVENTION SERVICES DIRECTOR, TON S 461.9 SINUSITIS ACUTE 12/29/2013 MARIA GUADALUPE CONVENTION SERVICES DIRECTOR, TON S 788.1 DYSURIA 12/29/2013 MARIA GUADALUPE CONVENTION SERVICES DIRECTOR, TON S 461.9 SINUSITIS ACUTE 12/29/2013 MARIA GUADALUPE CONVENTION SERVICES DIRECTOR, TON S 788.1 DYSURIA 12/29/2013 MARIA GUADALUPE CONVENTION SERVICES DIRECTOR, TON S 461.9 SINUSITIS ACUTE 12/29/2013 MARIA GUADALUPE CONVENTION SERVICES DIRECTOR, TON S 788.1 DYSURIA 12/29/2013 MARIA GUADALUPE CONVENTION SERVICES DIRECTOR, TON S 461.9 SINUSITIS ACUTE 12/29/2013 MARIA GUADALUPE CONVENTION SERVICES DIRECTOR, TON S 788.1 DYSURIA 12/29/2013 NATASHA PERALES, GERONIMO L 461.9 SINUSITIS ACUTE 12/29/2013 NATASHA PERALES, GERONIMO L 788.1 DYSURIA 12/29/2013 JUAN ANTONIO OTTOJEWELS K 461.9 SINUSITIS ACUTE 12/29/2013 JUAN ANTONIO OTTO JEWELS K 788.1 DYSURIA 12/29/2013 VELASQUEZ KAUR PSYD 461.9 SINUSITIS ACUTE 12/29/2013 VELASQUEZ KAUR PSYD 788.1 DYSURIA 12/29/2013 SEJAL CONVENTION SERVICES DIRECTORSYMONE Ramos 461.9 SINUSITIS ACUTE 12/29/2013 POST SYMONE VAUGHN 788.1 DYSURIA 12/29/2013 RICHARD CONVENTION SERVICES DIRECTOR, JEWELS 461.9 SINUSITIS ACUTE 12/29/2013 RICHARD CONVENTION SERVICES DIRECTOR, JEWELS 788.1 DYSURIA 12/29/2013 RICHARD CONVENTION SERVICES DIRECTOR, JEWELS 461.9 SINUSITIS ACUTE 12/29/2013 RICHARD CONVENTION SERVICES DIRECTOR, JEWELS 788.1 DYSURIA 12/29/2013 RICHARD CONVENTION SERVICES DIRECTOR, JEWELS 461.9 SINUSITIS ACUTE 12/29/2013 RICHARD CONVENTION SERVICES DIRECTOR, JEWELS 788.1 DYSURIA 02/02/2014 MARIA GUADALUPE CONVENTION SERVICES DIRECTOR, TON S 719.46 PAIN- KNEE 02/02/2014 MARIA GUADALUPE CONVENTION SERVICES DIRECTOR, TON S 719.46 PAIN- KNEE 02/02/2014 VELASQUEZ KAUR PSYD 719.46 PAIN- KNEE 02/02/2014 ROMANO JEWELS OTTO K 719.46 PAIN- KNEE 02/02/2014 VELASQUEZ KAUR PSYD 719.46 PAIN- KNEE 02/02/2014 SEJAL CONVENTION SERVICES DIRECTORSYMONE Ramos 719.46 PAIN- KNEE 02/02/2014 RICHARD CONVENTION SERVICES DIRECTOR, JEWELS 719.46 PAIN- KNEE 02/02/2014 RICHARD CONVENTION SERVICES DIRECTOR, JEWELS 719.46 PAIN- KNEE 02/02/2014 RICHARD CONVENTION SERVICES DIRECTOR, JEWELS 719.46 PAIN- KNEE 03/15/2014 VELASQUEZ KAUR PSYD 309.81 AN PTSD 03/15/2014 VELASQUEZ KAUR PSYD 311 DEPRESSIVE DISORDER NOS 03/15/2014 JEWELS ROMANO DO 309.81 AN PTSD 03/15/2014 JEWELS ROMANO DO K 311 DEPRESSIVE DISORDER NOS 03/15/2014 VELASQUEZ KAUR PSYD 309.81 AN PTSD 03/15/2014 NATASHA PERALESVELASQUEZGERONIMO L 311 DEPRESSIVE DISORDER NOS 03/15/2014 SYMONE POST APRN 309.81 AN PTSD 03/15/2014 SYMONE POST APRN 311 DEPRESSIVE DISORDER NOS 03/15/2014 RICHARD CONVENTION SERVICES DIRECTOR, JEWELS 309.81 AN PTSD 03/15/2014 RICHARD CONVENTION SERVICES DIRECTOR, JEWELS 311 DEPRESSIVE DISORDER NOS 03/15/2014 RICHARD CONVENTION SERVICES DIRECTOR, JEWELS 309.81 AN PTSD 03/15/2014 RICHARD CONVENTION SERVICES DIRECTOR, JEWELS 311 DEPRESSIVE DISORDER NOS 03/15/2014 RICHARD CONVENTION SERVICES DIRECTOR, JEWELS 309.81 AN PTSD 03/15/2014 RICHARD CONVENTION SERVICES DIRECTOR, JEWELS 311 DEPRESSIVE DISORDER NOS 05/29/2014 SYMONE POST APRN V74.1 TB SCREENING 05/29/2014 RICHARD CONVENTION SERVICES DIRECTOR, JEWELS V74.1 TB SCREENING 05/29/2014 RICHARD CONVENTION SERVICES DIRECTOR, JEWELS V74.1 TB SCREENING 05/29/2014 RICHARD CONVENTION SERVICES DIRECTOR, JEWELS V74.1 TB SCREENING 06/26/2014 Ot 722.4 06/26/2014 Ot 530.81 06/26/2014 Ot 574.20 06/26/2014 Ot V72.63 06/26/2014 Ot V72.81 06/26/2014 Ot V74.8 06/26/2014 MARJORIE STRONG CONVENTION SERVICES DIRECTOR Ot 789.06 06/26/2014 DERECK ALVAREZ [employer] OPERATOR Ot 611.71 06/26/2014 TON LERMA [facility] Ot 719.46 06/28/2014 Ot 401.9 06/28/2014 Ot 717.7 06/28/2014 Ot 727.43 06/28/2014 Ot 733.92 06/28/2014 Ot V57.1 08/14/2014 RICHARD JOHANA JEWELS 278.00 OBESITY 08/14/2014 RICHARDALFREDO VAUGHN JEWELS 627.2 HOT FLASHES 02/23/2015 TON LERMAP Ot R07.89 03/08/2015 KATELYN SHAH, PRIETO Alfredo Ot K20.9 ESOPHAGITIS, UNSPECIFIED 03/08/2015 KATELYN SHAH, PRIETO Alfredo Ot K25.9 GASTRIC ULCER, UNSP ACUTE OR CHRONIC, 03/08/2015 KATELYN SHAH, PRIETO Alfredo Ot K44.9 DIAPHRAGMATIC HERNIA WITHOUT OBSTRUCTION 03/16/2015 TON LERMA [employer] OPERATOR Ot R07.89 05/23/2015 TON ELRMA [employer] OPERATOR Ot R07.89 OTHER CHEST PAIN 06/14/2015 KATELYN SHAH, PRIETO Alfredo Ot Z01.818 06/14/2015 KATELYN SHAH, PRIETO Alfredo Ot Z01.818 06/14/2015 Ot R07.89 07/11/2015 TON LERMA [employer] OPERATOR Ot K52.9 09/14/2015 TON LERMA [employer] OPERATOR Ot K52.9 NONINFECTIVE GASTROENTERITIS AND COLITIS 09/14/2015 TON LERMA [employer] OPERATOR Ot 719.46 JOINT PAIN-L/LEG 10/12/2015 TON LERMA [employer] OPERATOR Ot 719.46 JOINT PAIN-L/LEG 10/12/2015 TON LERMA [employer] D[employer] OPERATOR Ot K52.9 NONINFECTIVE GASTROENTERITIS AND COLITIS 03/24/2016 KATELYN SHAH, PRIETO Alfredo Ot Z01.818 ENCOUNTER FOR OTHER PREPROCEDURAL EXAMIN 03/24/2016 PRIETO ZEPEDA MD Ot Z01.818 ENCOUNTER FOR OTHER PREPROCEDURAL EXAMIN 03/24/2016 Ot R07.89 OTHER CHEST PAIN 03/25/2016 TON LERMA [employer] D[employer] OPERATOR Ot R10.30 LOWER ABDOMINAL PAIN, UNSPECIFIED 04/23/2016 TON LERMA [employer] D[employer]LL OPERATOR Ot R10.30 LOWER ABDOMINAL PAIN, UNSPECIFIED 12/27/2016 MAKI SHAH, RUSTY Shaw Ot J44.9 CHRONIC OBSTRUCTIVE PULMONARY DISEASE, U 12/27/2016 MAKI SHAH, RUSTY Shaw Ot R20.0 ANESTHESIA OF SKIN 12/27/2016 RUSTY GAMBINO MD Ot R20.2 PARESTHESIA OF SKIN 12/27/2016 MAKI SHAH, RUSTY Shaw Ot Z98.51 TUBAL LIGATION STATUS 12/27/2016 KATELYN SHAH, PRIETO Alfredo Ot Z01.818 ENCOUNTER FOR OTHER PREPROCEDURAL EXAMIN 12/27/2016 PRIETO ZEPEDA MD Ot Z01.818 ENCOUNTER FOR OTHER PREPROCEDURAL EXAMIN 12/27/2016 Ot R07.89 OTHER CHEST PAIN 12/27/2016 MARIA GUADALUPE, TON [employer] D[employer]LL OPERATOR Ot R10.30 LOWER ABDOMINAL PAIN, UNSPECIFIED 12/31/2016 KATELYN SHAH, PRIETO Alfredo Ot Z01.818 ENCOUNTER FOR OTHER PREPROCEDURAL EXAMIN 12/31/2016 KATELYN SHAH, PRIETO Alfredo Ot Z01.818 ENCOUNTER FOR OTHER PREPROCEDURAL EXAMIN 12/31/2016 Ot R07.89 OTHER CHEST PAIN 12/31/2016 TON LERMA [employer] D[employer]LL OPERATOR Ot R10.30 LOWER ABDOMINAL PAIN, UNSPECIFIED 01/02/2017 KATELYN SHAH, PRIETO Alfredo Ot Z01.818 ENCOUNTER FOR OTHER PREPROCEDURAL EXAMIN 01/02/2017 KATELYN SHAH, PRIETO Alfredo Ot Z01.818 ENCOUNTER FOR OTHER PREPROCEDURAL EXAMIN 01/02/2017 Ot R07.89 OTHER CHEST PAIN 01/02/2017 TON LERMA [employer] OPERATOR Ot R10.30 LOWER ABDOMINAL PAIN, UNSPECIFIED 01/14/2017 TON LERMA [employer] D[employer] OPERATOR Ot R60.9 EDEMA, UNSPECIFIED 01/19/2017 TON LERMA [employer] OPERATOR Ot K52.9 NONINFECTIVE GASTROENTERITIS AND COLITIS 01/19/2017 BRITNEY LERMAA [employer] OPERATOR Ot K52.9 NONINFECTIVE GASTROENTERITIS AND COLITIS 01/21/2017 JUANAMA, VINCE L [employer] D[employer] OPERATOR Ot E78.2 MIXED HYPERLIPIDEMIA 01/21/2017 BAIMA, VINCE L [employer] D[employer]LL OPERATOR Ot I10 ESSENTIAL (PRIMARY) HYPERTENSION 01/21/2017 BAIMA, VINCE L [employer] D[employer] OPERATOR Ot I73.9 PERIPHERAL VASCULAR DISEASE, UNSPECIFIED 01/21/2017 BAIMA, VINCE L [employer] D[employer] OPERATOR Ot R00.2 PALPITATIONS 01/21/2017 BAIMA, VINCE L [employer] D[employer] OPERATOR Ot R06.09 OTHER FORMS OF DYSPNEA 01/21/2017 BAIMA, VINCE L [employer] DRILL OPERATOR Ot R07.9 CHEST PAIN, UNSPECIFIED 01/21/2017 BAIMA, VINCE L [employer] D[employer] OPERATOR Ot E78.2 MIXED HYPERLIPIDEMIA 01/21/2017 BAIMA, VINCE L [employer] D[employer]LL OPERATOR Ot I10 ESSENTIAL (PRIMARY) HYPERTENSION 01/21/2017 BAIMA, VINCE L [employer] D[employer]LL OPERATOR Ot I73.9 PERIPHERAL VASCULAR DISEASE, UNSPECIFIED 01/21/2017 BAIMA, VINCE L [employer] DRILL OPERATOR Ot R00.2 PALPITATIONS 01/21/2017 BAIMA, VINCE L [employer] DRILL OPERATOR Ot R06.09 OTHER FORMS OF DYSPNEA 01/21/2017 BAIMA, VINCE L [employer] DRILL OPERATOR Ot R07.9 CHEST PAIN, UNSPECIFIED 01/28/2017 BAIMA, VINCE L [employer] DRILL OPERATOR Ot E78.2 MIXED HYPERLIPIDEMIA 01/28/2017 BAIMA, VINCE L [employer] D[employer]LL OPERATOR Ot I10 ESSENTIAL (PRIMARY) HYPERTENSION 01/28/2017 BAIMA, VINCE L [employer] DRILL OPERATOR Ot I73.9 PERIPHERAL VASCULAR DISEASE, UNSPECIFIED 01/28/2017 BAIMA, VINCE L [employer] DRILL OPERATOR Ot R00.2 PALPITATIONS 01/28/2017 BAIMA, VINCE L [employer] DRILL OPERATOR Ot R06.09 OTHER FORMS OF DYSPNEA 01/28/2017 BAIMA, VINCE L [employer] DRILL OPERATOR Ot R07.9 CHEST PAIN, UNSPECIFIED 01/28/2017 BAIMA, VINCE L [employer] DRILL OPERATOR Ot E78.2 MIXED HYPERLIPIDEMIA 01/28/2017 BAIMA, VINCE L [employer] DRILL OPERATOR Ot I10 ESSENTIAL (PRIMARY) HYPERTENSION 01/28/2017 BAIMA, VINCE L [employer] DRILL OPERATOR Ot I73.9 PERIPHERAL VASCULAR DISEASE, UNSPECIFIED 01/28/2017 BAIMA, VINCE L [employer] DRILL OPERATOR Ot R00.2 PALPITATIONS 01/28/2017 BAIMA, VINCE L [employer] DRILL OPERATOR Ot R06.09 OTHER FORMS OF DYSPNEA 01/28/2017 BAIMA, VINCE L H[employer]OCK DRILL OPERATOR Ot R07.9 CHEST PAIN, UNSPECIFIED 02/10/2017 KATELYN SHAH, PRIETO Alfredo Ot Z01.818 ENCOUNTER FOR OTHER PREPROCEDURAL EXAMIN 02/10/2017 KATELYN SHAH, PRIETO Alfredo Ot Z01.818 ENCOUNTER FOR OTHER PREPROCEDURAL EXAMIN 02/10/2017 Ot R07.89 OTHER CHEST PAIN 02/10/2017 TON LERMA [employer] D[employer] OPERATOR Ot K52.9 NONINFECTIVE GASTROENTERITIS AND COLITIS 02/10/2017 TON LERMA [employer] D[employer] OPERATOR Ot R10.30 LOWER ABDOMINAL PAIN, UNSPECIFIED 02/10/2017 TON LERMA [employer] D[employer]LL OPERATOR Ot R60.9 EDEMA, UNSPECIFIED 02/10/2017 BAIMA, VINCE L [employer] D[employer]LL OPERATOR Ot E78.2 MIXED HYPERLIPIDEMIA 02/10/2017 BAIMA, VINCE L [employer] D[employer]LL OPERATOR Ot I10 ESSENTIAL (PRIMARY) HYPERTENSION 02/10/2017 BAIMA, VINCE L [employer] D[employer]LL OPERATOR Ot I73.9 PERIPHERAL VASCULAR DISEASE, UNSPECIFIED 02/10/2017 BAIMA, VINCE L [employer] D[employer]LL OPERATOR Ot R00.2 PALPITATIONS 02/10/2017 BAIMA, VINCE L [employer]OCK DRILL OPERATOR Ot R06.09 OTHER FORMS OF DYSPNEA 02/10/2017 BAIMA, VINCE L [employer] DRILL OPERATOR Ot R07.9 CHEST PAIN, UNSPECIFIED 02/10/2017 BAIMA, VINCE L [employer] DRILL OPERATOR Ot E78.2 MIXED HYPERLIPIDEMIA 02/10/2017 BAIMA, VINCE L [employer] D[employer]LL OPERATOR Ot I10 ESSENTIAL (PRIMARY) HYPERTENSION 02/10/2017 BAIMA, VINCE L [employer] DRILL OPERATOR Ot I73.9 PERIPHERAL VASCULAR DISEASE, UNSPECIFIED 02/10/2017 BAIMA, VINCE L [employer] D[employer]LL OPERATOR Ot R00.2 PALPITATIONS 02/10/2017 BAIMA, VINCE L [employer] DRILL OPERATOR Ot R06.09 OTHER FORMS OF DYSPNEA 02/10/2017 BAIMA, VINCE L [employer] D[employer]LL OPERATOR Ot R07.9 CHEST PAIN, UNSPECIFIED 02/10/2017 MARJORIE STRONG CONVENTION SERVICES DIRECTOR Ot 789.06 ABDOMINAL PAIN, EPIGASTRIC 02/10/2017 DERECK ALVAREZ [employer] OPERATOR Ot 611.71 MASTODYNIA 02/10/2017 TON LERMA [employer] OPERATOR Ot 719.46 JOINT PAIN-L/LEG 02/10/2017 TON LERMA [employer] D[employer] OPERATOR Ot R60.9 EDEMA, UNSPECIFIED 02/10/2017 BAIMA, VINCE L [employer] D[employer]LL OPERATOR Ot E78.2 MIXED HYPERLIPIDEMIA 02/10/2017 BAIMA, VINCE L [employer] D[employer]LL OPERATOR Ot I10 ESSENTIAL (PRIMARY) HYPERTENSION 02/10/2017 BAIMA, VINCE L [employer] D[employer]LL OPERATOR Ot I73.9 PERIPHERAL VASCULAR DISEASE, UNSPECIFIED 02/10/2017 BAIMA, VINCE L [employer] DRILL OPERATOR Ot R00.2 PALPITATIONS 02/10/2017 BAIMA, VINCE L [employer]OCK DRILL OPERATOR Ot R06.09 OTHER FORMS OF DYSPNEA 02/10/2017 BAIMA, VINCE L [employer] DRILL OPERATOR Ot R07.9 CHEST PAIN, UNSPECIFIED 02/10/2017 BAIMA, VINCE L [employer] DRILL OPERATOR Ot E78.2 MIXED HYPERLIPIDEMIA 02/10/2017 BAIMA, VINCE L [employer] DRILL OPERATOR Ot I10 ESSENTIAL (PRIMARY) HYPERTENSION 02/10/2017 BAIMA, VINCE L H[employer]OCK DRILL OPERATOR Ot I73.9 PERIPHERAL VASCULAR DISEASE, UNSPECIFIED 02/10/2017 BAIMA, VINCE L [employer] DRILL OPERATOR Ot R00.2 PALPITATIONS 02/10/2017 BAIMA, VINCE L H[employer]OCK DRILL OPERATOR Ot R06.09 OTHER FORMS OF DYSPNEA 02/10/2017 BAIMA, VINCE L [employer]OCK DRILL OPERATOR Ot R07.9 CHEST PAIN, UNSPECIFIED 02/10/2017 MARJORIE STRONG CONVENTION SERVICES DIRECTOR Ot 789.06 ABDOMINAL PAIN, EPIGASTRIC 02/10/2017 ANTONIO DERECK J [employer] D[employer]LL OPERATOR Ot 611.71 MASTODYNIA 02/10/2017 TON LERMA [employer] D[employer] OPERATOR Ot 719.46 JOINT PAIN-L/LEG 02/10/2017 TON LERMA [employer] D[employer] OPERATOR Ot R60.9 EDEMA, UNSPECIFIED 02/10/2017 BAIMA, VINCE L [employer] D[employer]LL OPERATOR Ot E78.2 MIXED HYPERLIPIDEMIA 02/10/2017 BAIMA, VINCE L [employer] D[employer]LL OPERATOR Ot I10 ESSENTIAL (PRIMARY) HYPERTENSION 02/10/2017 BAIMA, VINCE L [employer] DRILL OPERATOR Ot I73.9 PERIPHERAL VASCULAR DISEASE, UNSPECIFIED 02/10/2017 BAIMA, VINCE L [employer] DRILL OPERATOR Ot R00.2 PALPITATIONS 02/10/2017 BAIMA, VINCE L H[employer]OCK DRILL OPERATOR Ot R06.09 OTHER FORMS OF DYSPNEA 02/10/2017 BAIMA, VINCE L [employer]OCK DRILL OPERATOR Ot R07.9 CHEST PAIN, UNSPECIFIED 02/10/2017 BAIMA, VINCE L [employer] DRILL OPERATOR Ot E78.2 MIXED HYPERLIPIDEMIA 02/10/2017 BAIMA, VINCE L [employer] D[employer]LL OPERATOR Ot I10 ESSENTIAL (PRIMARY) HYPERTENSION 02/10/2017 BAIMA, VINCE L [employer] DRILL OPERATOR Ot I73.9 PERIPHERAL VASCULAR DISEASE, UNSPECIFIED 02/10/2017 BAIMA, VINCE L [employer]OCK DRILL OPERATOR Ot R00.2 PALPITATIONS 02/10/2017 BAIMA, VINCE L H[employer]OCK DRILL OPERATOR Ot R06.09 OTHER FORMS OF DYSPNEA 02/10/2017 BAIMA, VINCE L H[employer]OCK DRILL OPERATOR Ot R07.9 CHEST PAIN, UNSPECIFIED 02/10/2017 BAIMA, VINCE L [employer]OCK DRILL OPERATOR Ot E78.2 MIXED HYPERLIPIDEMIA 02/10/2017 BAIMA, VINCE L [employer] DRILL OPERATOR Ot I10 ESSENTIAL (PRIMARY) HYPERTENSION 02/10/2017 BAIMA, VINCE L [employer] DRILL OPERATOR Ot I73.9 PERIPHERAL VASCULAR DISEASE, UNSPECIFIED 02/10/2017 BAIMA, VINCE L H[employer]OCK DRILL OPERATOR Ot R00.2 PALPITATIONS 02/10/2017 BAIMA, VINCE L H[employer]OCK DRILL OPERATOR Ot R06.09 OTHER FORMS OF DYSPNEA 02/10/2017 BAIMA, VINCE L H[employer]OCK DRILL OPERATOR Ot R07.9 CHEST PAIN, UNSPECIFIED 02/18/2017 BAIMA, VINCE L [employer]OCK DRILL OPERATOR Ot E78.2 MIXED HYPERLIPIDEMIA 02/18/2017 BAIMA, VINCE L [employer] DRILL OPERATOR Ot I10 ESSENTIAL (PRIMARY) HYPERTENSION 02/18/2017 BAIMA, VINCE L [employer]OCK DRILL OPERATOR Ot I73.9 PERIPHERAL VASCULAR DISEASE, UNSPECIFIED 02/18/2017 BAIMA, VINCE L H[employer]OCK DRILL OPERATOR Ot R00.2 PALPITATIONS 02/18/2017 BAIMA, VINCE L H[employer]OCK DRILL OPERATOR Ot R06.09 OTHER FORMS OF DYSPNEA 02/18/2017 BAIMA, VINCE L H[employer]OCK DRILL OPERATOR Ot R07.9 CHEST PAIN, UNSPECIFIED 03/31/2017 BAIMA, VINCE L [employer]OCK DRILL OPERATOR Ot E78.2 MIXED HYPERLIPIDEMIA 03/31/2017 BAIMA, VINCE L [employer]OCK DRILL OPERATOR Ot I10 ESSENTIAL (PRIMARY) HYPERTENSION 03/31/2017 BAIMA, VINCE L H[employer]OCK DRILL OPERATOR Ot I73.9 PERIPHERAL VASCULAR DISEASE, UNSPECIFIED 03/31/2017 BAIMA, VINCE L H[employer]OCK DRILL OPERATOR Ot R00.2 PALPITATIONS 03/31/2017 BAIMA, VINCE L H[employer]OCK DRILL OPERATOR Ot R06.09 OTHER FORMS OF DYSPNEA 03/31/2017 BAIMA, VINCE L H[employer]OCK DRILL OPERATOR Ot R07.9 CHEST PAIN, UNSPECIFIED 03/31/2017 TON LERAM [employer] D[employer]LL OPERATOR Ot R60.9 EDEMA, UNSPECIFIED 03/31/2017 BAIMA, VINCE L [employer]OCK DRILL OPERATOR Ot E78.2 MIXED HYPERLIPIDEMIA 03/31/2017 BAIMA, VINCE L [employer] DRILL OPERATOR Ot I10 ESSENTIAL (PRIMARY) HYPERTENSION 03/31/2017 BAIMA, VINCE L H[employer]OCK DRILL OPERATOR Ot I73.9 PERIPHERAL VASCULAR DISEASE, UNSPECIFIED 03/31/2017 BAIMA, VINCE L H[employer]OCK DRILL OPERATOR Ot R00.2 PALPITATIONS 03/31/2017 BAIMA, VINCE L H[employer] ROCK DRILL OPERATOR Ot R06.09 OTHER FORMS OF DYSPNEA 03/31/2017 BAIMA, VINCE L HARD ROCK DRILL OPERATOR Ot R07.9 CHEST PAIN, UNSPECIFIED 03/31/2017 BAIMA, VINCE L H[employer]OCK DRILL OPERATOR Ot E78.2 MIXED HYPERLIPIDEMIA 03/31/2017 BAIMA, VINCE L [employer]OCK DRILL OPERATOR Ot I10 ESSENTIAL (PRIMARY) HYPERTENSION 03/31/2017 BAIMA, VINCE L H[employer]OCK DRILL OPERATOR Ot I73.9 PERIPHERAL VASCULAR DISEASE, UNSPECIFIED 03/31/2017 BAIMA, VINCE L H[employer]OCK DRILL OPERATOR Ot R00.2 PALPITATIONS 03/31/2017 BAIMA, VINCE L H[employer] ROCK DRILL OPERATOR Ot R06.09 OTHER FORMS OF DYSPNEA 03/31/2017 BAIMA, VINCE L HARD ROCK DRILL OPERATOR Ot R07.9 CHEST PAIN, UNSPECIFIED 07/17/2017 BAIMA, VINCE L H[employer] ROCK DRILL OPERATOR Ot E78.2 MIXED HYPERLIPIDEMIA 07/17/2017 BAIMA, VINCE L [employer]OCK DRILL OPERATOR Ot I10 ESSENTIAL (PRIMARY) HYPERTENSION 07/17/2017 BAIMA, VINCE L H[employer]OCK DRILL OPERATOR Ot I73.9 PERIPHERAL VASCULAR DISEASE, UNSPECIFIED 07/17/2017 BAIMA, VINCE L H[employer]OCK DRILL OPERATOR Ot R00.2 PALPITATIONS 07/17/2017 BAIMA, VINCE L H[employer] ROCK DRILL OPERATOR Ot R06.09 OTHER FORMS OF DYSPNEA 07/17/2017 BAIMA, VINCE L HARD ROCK DRILL OPERATOR Ot R07.9 CHEST PAIN, UNSPECIFIED 07/17/2017 BAIMA, VINCE L H[employer] ROCK DRILL OPERATOR Ot E78.2 MIXED HYPERLIPIDEMIA 07/17/2017 BAIMA, VINCE L H[employer] ROCK DRILL OPERATOR Ot I10 ESSENTIAL (PRIMARY) HYPERTENSION 07/17/2017 BAIMA, VINCE L HARD ROCK DRILL OPERATOR Ot I73.9 PERIPHERAL VASCULAR DISEASE, UNSPECIFIED 07/17/2017 BAIMA, VINCE L HARD ROCK DRILL OPERATOR Ot R00.2 PALPITATIONS 07/17/2017 BAIMA, VINCE L H[employer] ROCK DRILL OPERATOR Ot R06.09 OTHER FORMS OF DYSPNEA 07/17/2017 BAIMA, VINCE L HARD ROCK DRILL OPERATOR Ot R07.9 CHEST PAIN, UNSPECIFIED 07/17/2017 BAIMA, VINCE L HARD ROCK DRILL OPERATOR Ot E78.2 MIXED HYPERLIPIDEMIA 07/17/2017 BAIMA, VINCE L H[employer] ROCK DRILL OPERATOR Ot I10 ESSENTIAL (PRIMARY) HYPERTENSION 07/17/2017 BAIMA, VINCE L H[employer] ROCK DRILL OPERATOR Ot I73.9 PERIPHERAL VASCULAR DISEASE, UNSPECIFIED 07/17/2017 BAIMA, VINCE L HARD ROCK DRILL OPERATOR Ot R00.2 PALPITATIONS 07/17/2017 BAIMA, VINCE L H[employer] ROCK DRILL OPERATOR Ot R06.09 OTHER FORMS OF DYSPNEA 07/17/2017 BAIMA, VINCE L H[employer] ROCK DRILL OPERATOR Ot R07.9 CHEST PAIN, UNSPECIFIED 07/17/2017 TON LERMA [employer] D[employer]LL OPERATOR Ot R60.9 EDEMA, UNSPECIFIED 07/17/2017 TON LERMA [employer] D[employer]LL OPERATOR Ot K52.9 NONINFECTIVE GASTROENTERITIS AND COLITIS 07/17/2017 TON LERMA [employer] D[employer]LL OPERATOR Ot R60.9 EDEMA, UNSPECIFIED 07/17/2017 BAIMA, VINCE L H[employer] ROCK DRILL OPERATOR Ot E78.2 MIXED HYPERLIPIDEMIA 07/17/2017 BAIMA, VINCE L H[employer]OCK DRILL OPERATOR Ot I10 ESSENTIAL (PRIMARY) HYPERTENSION 07/17/2017 BAIMA, VINCE L HARD [employer]OCK DRILL OPERATOR Ot I73.9 PERIPHERAL VASCULAR DISEASE, UNSPECIFIED 07/17/2017 BAIMA, VINCE L HARD ROCK DRILL OPERATOR Ot R00.2 PALPITATIONS 07/17/2017 BAIMA, VINCE L H[employer] ROCK DRILL OPERATOR Ot R06.09 OTHER FORMS OF DYSPNEA 07/17/2017 BAIMA, VINCE L HARD ROCK DRILL OPERATOR Ot R07.9 CHEST PAIN, UNSPECIFIED 07/17/2017 BAIMA, VINCE L HARD ROCK DRILL OPERATOR Ot E78.2 MIXED HYPERLIPIDEMIA 07/17/2017 BAIMA, VINCE L HARD ROCK DRILL OPERATOR Ot I10 ESSENTIAL (PRIMARY) HYPERTENSION 07/17/2017 BAIMA, VINCE L HARD ROCK DRILL OPERATOR Ot I73.9 PERIPHERAL VASCULAR DISEASE, UNSPECIFIED 07/17/2017 BAIMA, VINCE L HARD ROCK DRILL OPERATOR Ot R00.2 PALPITATIONS 07/17/2017 BAIMA, VINCE L HARD ROCK DRILL OPERATOR Ot R06.09 OTHER FORMS OF DYSPNEA 07/17/2017 BAIMA, VINCE L HARD ROCK DRILL OPERATOR Ot R07.9 CHEST PAIN, UNSPECIFIED 07/17/2017 BAIMA, VINCE L HARD ROCK DRILL OPERATOR Ot E78.2 MIXED HYPERLIPIDEMIA 07/17/2017 BAIMA, VINCE L HARD ROCK DRILL OPERATOR Ot I10 ESSENTIAL (PRIMARY) HYPERTENSION 07/17/2017 BAIMA, VINCE L HARD ROCK DRILL OPERATOR Ot I73.9 PERIPHERAL VASCULAR DISEASE, UNSPECIFIED 07/17/2017 BAIMA, VINCE L HARD ROCK DRILL OPERATOR Ot R00.2 PALPITATIONS 07/17/2017 BAIMA, VINCE L HARD ROCK DRILL OPERATOR Ot R06.09 OTHER FORMS OF DYSPNEA 07/17/2017 BAIMA, VINCE L HARD ROCK DRILL OPERATOR Ot R07.9 CHEST PAIN, UNSPECIFIED 09/30/2017 KATELYN SHAH, PRIETO Alfredo Ot Z01.818 ENCOUNTER FOR OTHER PREPROCEDURAL EXAMIN 09/30/2017 KATELYN SHAH, PRIETO Alfredo Ot Z01.818 ENCOUNTER FOR OTHER PREPROCEDURAL EXAMIN 09/30/2017 Ot R07.89 OTHER CHEST PAIN 09/30/2017 MARIA GUADALUPE, TON HARD [employer]OCK DRILL OPERATOR Ot R10.30 LOWER ABDOMINAL PAIN, UNSPECIFIED 09/30/2017 TON LERMA H[employer] DRILL OPERATOR Ot R60.9 EDEMA, UNSPECIFIED 09/30/2017 BAIMA, VINCE L HARD ROCK DRILL OPERATOR Ot E78.2 MIXED HYPERLIPIDEMIA 09/30/2017 BAIMA, VINCE L HARD ROCK DRILL OPERATOR Ot I10 ESSENTIAL (PRIMARY) HYPERTENSION 09/30/2017 BAIMA, VINCE L HARD ROCK DRILL OPERATOR Ot I73.9 PERIPHERAL VASCULAR DISEASE, UNSPECIFIED 09/30/2017 BAIMA, VINCE L HARD ROCK DRILL OPERATOR Ot R00.2 PALPITATIONS 09/30/2017 BAIMA, VINCE L HARD ROCK DRILL OPERATOR Ot R06.09 OTHER FORMS OF DYSPNEA 09/30/2017 BAIMA, VINCE L HARD ROCK DRILL OPERATOR Ot R07.9 CHEST PAIN, UNSPECIFIED 09/30/2017 BAIMA, VINCE L HARD ROCK DRILL OPERATOR Ot E78.2 MIXED HYPERLIPIDEMIA 09/30/2017 BAIMA, VINCE L HARD ROCK DRILL OPERATOR Ot I10 ESSENTIAL (PRIMARY) HYPERTENSION 09/30/2017 BAIMA, VINCE L HARD ROCK DRILL OPERATOR Ot I73.9 PERIPHERAL VASCULAR DISEASE, UNSPECIFIED 09/30/2017 BAIMA, VINCE L HARD ROCK DRILL OPERATOR Ot R00.2 PALPITATIONS 09/30/2017 BAIMA, VNICE L HARD ROCK DRILL OPERATOR Ot R06.09 OTHER FORMS OF DYSPNEA 09/30/2017 BAIMA, VINCE L HARD ROCK DRILL OPERATOR Ot R07.9 CHEST PAIN, UNSPECIFIED 09/30/2017 BAIMA, VINCE L HARD ROCK DRILL OPERATOR Ot E78.2 MIXED HYPERLIPIDEMIA 09/30/2017 BAIMA, VINCE L HARD ROCK DRILL OPERATOR Ot I10 ESSENTIAL (PRIMARY) HYPERTENSION 09/30/2017 BAIMA, VICNE L HARD ROCK DRILL OPERATOR Ot I73.9 PERIPHERAL VASCULAR DISEASE, UNSPECIFIED 09/30/2017 BAIMA, VINCE L HARD ROCK DRILL OPERATOR Ot R00.2 PALPITATIONS 09/30/2017 BAIMA, VINCE L HARD ROCK DRILL OPERATOR Ot R06.09 OTHER FORMS OF DYSPNEA 09/30/2017 BAIMA, VINCE L HARD ROCK DRILL OPERATOR Ot R07.9 CHEST PAIN, UNSPECIFIED 09/30/2017 KATELYN SHAH, PRIETO Alfredo Ot Z01.818 ENCOUNTER FOR OTHER PREPROCEDURAL EXAMIN 09/30/2017 KATELYN SHAH, PRIETO Alfredo Ot Z01.818 ENCOUNTER FOR OTHER PREPROCEDURAL EXAMIN 09/30/2017 Ot R07.89 OTHER CHEST PAIN 09/30/2017 MARIA GUADALUPE, TON [employer]OCK DRILL OPERATOR Ot R10.30 LOWER ABDOMINAL PAIN, UNSPECIFIED 09/30/2017 TON LERMA [employer] D[employer]LL OPERATOR Ot R60.9 EDEMA, UNSPECIFIED 09/30/2017 BAIMA, VINCE L HARD ROCK DRILL OPERATOR Ot E78.2 MIXED HYPERLIPIDEMIA 09/30/2017 BAIMA, VINCE L HARD ROCK DRILL OPERATOR Ot I10 ESSENTIAL (PRIMARY) HYPERTENSION 09/30/2017 BAIMA, VINCE L HARD ROCK DRILL OPERATOR Ot I73.9 PERIPHERAL VASCULAR DISEASE, UNSPECIFIED 09/30/2017 BAIMA, VINCE L HARD ROCK DRILL OPERATOR Ot R00.2 PALPITATIONS 09/30/2017 BAIMA, VINCE L HARD ROCK DRILL OPERATOR Ot R06.09 OTHER FORMS OF DYSPNEA 09/30/2017 BAIMA, VINCE L HARD ROCK DRILL OPERATOR Ot R07.9 CHEST PAIN, UNSPECIFIED 09/30/2017 BAIMA, VINCE L HARD ROCK DRILL OPERATOR Ot E78.2 MIXED HYPERLIPIDEMIA 09/30/2017 BAIMA, VINCE L HARD ROCK DRILL OPERATOR Ot I10 ESSENTIAL (PRIMARY) HYPERTENSION 09/30/2017 BAIMA, VINCE L HARD ROCK DRILL OPERATOR Ot I73.9 PERIPHERAL VASCULAR DISEASE, UNSPECIFIED 09/30/2017 BAIMA, VINCE L HARD ROCK DRILL OPERATOR Ot R00.2 PALPITATIONS 09/30/2017 BAIMA, VINCE L HARD ROCK DRILL OPERATOR Ot R06.09 OTHER FORMS OF DYSPNEA 09/30/2017 BAIMA, VINCE L HARD ROCK DRILL OPERATOR Ot R07.9 CHEST PAIN, UNSPECIFIED 09/30/2017 BAIMA, VINCE L HARD ROCK DRILL OPERATOR Ot E78.2 MIXED HYPERLIPIDEMIA 09/30/2017 BAIMA, VINCE L HARD ROCK DRILL OPERATOR Ot I10 ESSENTIAL (PRIMARY) HYPERTENSION 09/30/2017 BAIMA, VINCE L HARD ROCK DRILL OPERATOR Ot I73.9 PERIPHERAL VASCULAR DISEASE, UNSPECIFIED 09/30/2017 BAIMA, VINCE L HARD ROCK DRILL OPERATOR Ot R00.2 PALPITATIONS 09/30/2017 BAIMA, VINCE L HARD ROCK DRILL OPERATOR Ot R06.09 OTHER FORMS OF DYSPNEA 09/30/2017 BAIMA, VINCE L HARD ROCK DRILL OPERATOR Ot R07.9 CHEST PAIN, UNSPECIFIED 10/01/2017 ROSAS DO, TIMOTHY Ot E78.00 PURE HYPERCHOLESTEROLEMIA, UNSPECIFIED 10/01/2017 ROSAS DO, TIMOTHY Ot E83.42 HYPOMAGNESEMIA 10/01/2017 ROSAS DO, TIMOTHY Ot E83.51 HYPOCALCEMIA 10/01/2017 ROSAS DO, TIMOTHY Ot E87.6 HYPOKALEMIA 10/01/2017 ALISON OTTO TIMOTHY Ot F15.90 OTHER STIMULANT USE, UNSPECIFIED, UNCOMP 10/01/2017 ALISON OTTO TIMOTHY Ot I10 ESSENTIAL (PRIMARY) HYPERTENSION 10/01/2017 ALISON OTTO TIMOTHY Ot R42 DIZZINESS AND GIDDINESS 10/01/2017 ALISON OTTO TIMOTHY Ot R53.1 WEAKNESS 10/01/2017 ALISON OTTO TIMOTHY Ot R82.99 OTHER ABNORMAL FINDINGS IN URINE 10/01/2017 ALISON OTTO TIMOTHY Ot R94.8 ABNORMAL RESULTS OF FUNCTION STUDIES OF 10/01/2017 ALISON OTTO TIMOTHY Ot Z79.899 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 BOLTS ASSEMBLER (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) DRUG THERAPY 10/01/2017 ALISON OTTO TIMOTHY Ot Z87.891 PERSONAL HISTORY OF NICOTINE DEPENDENCE 11/03/2017 ELOY ZAIDI R CONVENTION SERVICES DIRECTOR Ot K76.0 FATTY (CHANGE OF) LIVER, NOT ELSEWHERE C 11/03/2017 ELOY ZADII R CONVENTION SERVICES DIRECTOR Ot Z90.49 ACQUIRED ABSENCE OF OTHER SPECIFIED PART 11/08/2017 ZAIDIRADHA DiazELE R CONVENTION SERVICES DIRECTOR Ot K76.0 FATTY (CHANGE OF) LIVER, NOT ELSEWHERE C 11/08/2017 ZAIDI, ELOY R CONVENTION SERVICES DIRECTOR Ot Z90.49 ACQUIRED ABSENCE OF OTHER SPECIFIED PART 11/17/2017 RADHA ZAIDIELE R CONVENTION SERVICES DIRECTOR Ot K76.0 FATTY (CHANGE OF) LIVER, NOT ELSEWHERE C 11/17/2017 ZAIDI, ELOY R CONVENTION SERVICES DIRECTOR Ot Z90.49 ACQUIRED ABSENCE OF OTHER SPECIFIED PART 11/17/2017 RADHA ZAIDIELE R CONVENTION SERVICES DIRECTOR Ot K76.0 FATTY (CHANGE OF) LIVER, NOT ELSEWHERE C 11/17/2017 DYAN ELOY R CONVENTION SERVICES DIRECTOR Ot Z90.49 ACQUIRED ABSENCE OF OTHER SPECIFIED PART 11/18/2017 RADHA ZAIDIELE R CONVENTION SERVICES DIRECTOR Ot N28.89 OTHER SPECIFIED DISORDERS OF KIDNEY AND 11/18/2017 RADHA ZAIDIELE R CONVENTION SERVICES DIRECTOR Ot K76.0 FATTY (CHANGE OF) LIVER, NOT ELSEWHERE C 11/18/2017 DYAN ELOY R CONVENTION SERVICES DIRECTOR Ot Z90.49 ACQUIRED ABSENCE OF OTHER SPECIFIED [...] I10 ESSENTIAL (PRIMARY) HYPERTENSION 11/19/2017 KATHERIN RAY MD, Ot J44.9 CHRONIC OBSTRUCTIVE PULMONARY DISEASE, U 11/19/2017 KATHERIN RAY MD, Ot N17.9 ACUTE KIDNEY FAILURE, UNSPECIFIED 11/19/2017 KATHERIN RAY MD Ot N39.0 URINARY TRACT INFECTION, SITE NOT SPECIF 11/19/2017 KATHERIN RAY MD, Ot R03.1 NONSPECIFIC LOW BLOOD-PRESSURE READING 11/19/2017 KATHERIN RAY MD, Ot R42 DIZZINESS AND GIDDINESS 11/19/2017 KATHERIN RAY MD, Ot Z79.51 ALF (CURRENT) USE OF INHALED STERO 11/19/2017 KATHERIN RAY MD Ot Z79.52 ALF (CURRENT) USE OF SYSTEMIC STER 11/19/2017 KATHERIN RAY MD, Ot Z87.19 PERSONAL HISTORY OF OTHER DISEASES OF TH 11/19/2017 KATHERIN RAY MD, Ot Z87.891 PERSONAL HISTORY OF NICOTINE DEPENDENCE 11/19/2017 KATHERIN RAY MD Ot Z88.4 ALLERGY STATUS TO ANESTHETIC AGENT STATU 11/19/2017 KAHTERIN RAY MD Ot Z88.8 ALLERGY STATUS TO OTH DRUG/MEDS/BIOL SUB 11/19/2017 KATHERIN RAY MD Ot Z91.040 LATEX ALLERGY STATUS 11/19/2017 KATHERIN RAY MD, Ot Z91.048 OTHER NONMEDICINAL SUBSTANCE ALLERGY STA 11/19/2017 KATHERIN RAY MD Ot Z98.51 TUBAL LIGATION STATUS 11/23/2017 KATHERIN RAY MD Ot E78.00 PURE HYPERCHOLESTEROLEMIA, UNSPECIFIED 11/23/2017 KATHERIN RAY MD Ot E83.42 HYPOMAGNESEMIA 11/23/2017 KATHERIN RAY MD Ot F12.10 CANNABIS ABUSE, UNCOMPLICATED 11/23/2017 KATHERIN RAY MD Ot F14.10 COCAINE ABUSE, UNCOMPLICATED 11/23/2017 KATHERIN RAY MD, Ot F15.10 OTHER STIMULANT ABUSE, UNCOMPLICATED 11/23/2017 KATHERIN RAY MD, Ot I10 ESSENTIAL (PRIMARY) HYPERTENSION 11/23/2017 KATHERIN RAY MD, Ot J44.9 CHRONIC OBSTRUCTIVE PULMONARY DISEASE, U 11/23/2017 KATHERIN RAY MD, Ot N17.9 ACUTE KIDNEY FAILURE, UNSPECIFIED 11/23/2017 KATHERIN RAY MD, Ot N39.0 URINARY TRACT INFECTION, SITE NOT SPECIF 11/23/2017 KATHERIN RAY MD Ot R03.1 NONSPECIFIC LOW BLOOD-PRESSURE READING 11/23/2017 KATHERIN RAY MD, Ot R42 DIZZINESS AND GIDDINESS 11/23/2017 KATHERIN RAY MD, Ot Z79.51 ALF (CURRENT) USE OF INHALED STERO 11/23/2017 KATHERIN RAY MD Ot Z79.52 NUTS AND BOLTS ASSEMBLER (CURRENT) USE OF SYSTEMIC STER 11/23/2017 KATHERIN RAY MD, Ot Z87.19 PERSONAL HISTORY OF OTHER DISEASES OF TH 11/23/2017 KATHERIN RAY MD, Ot Z87.891 PERSONAL HISTORY OF NICOTINE DEPENDENCE 11/23/2017 KATHERIN RAY MD, Ot Z88.4 ALLERGY STATUS TO ANESTHETIC AGENT STATU 11/23/2017 KATHERIN RAY MD Ot Z88.8 ALLERGY STATUS TO OTH DRUG/MEDS/BIOL SUB 11/23/2017 KATHERIN RAY MD, Ot Z91.040 LATEX ALLERGY STATUS 11/23/2017 KATHERIN RAY MD, Ot Z91.048 OTHER NONMEDICINAL SUBSTANCE ALLERGY STA 11/23/2017 KATHERIN RAY MD Ot Z98.51 TUBAL LIGATION STATUS 01/26/2018 KATELYN SHAH, PRIETO Alfredo Ot Z01.818 ENCOUNTER FOR OTHER PREPROCEDURAL EXAMIN 01/26/2018 KATELYN SHAH, PRIETO Alfredo Ot Z01.818 ENCOUNTER FOR OTHER PREPROCEDURAL EXAMIN 01/26/2018 Ot R07.89 OTHER CHEST PAIN 01/26/2018 MARIA GUADALUPETON JAMES HARD ROCK DRILL OPERATOR Ot R10.30 LOWER ABDOMINAL PAIN, UNSPECIFIED 01/26/2018 MARIA GUADALUPEQUINTEN VEGANDA H[employer] ROCK DRILL OPERATOR Ot R60.9 EDEMA, UNSPECIFIED 01/26/2018 BAIMA, VINCE L HARD ROCK DRILL OPERATOR Ot E78.2 MIXED HYPERLIPIDEMIA 01/26/2018 BAIMA, VINCE L HARD [employer]OCK DRILL OPERATOR Ot I10 ESSENTIAL (PRIMARY) HYPERTENSION 01/26/2018 BAIMA, VINCE L HARD [employer]OCK DRILL OPERATOR Ot I73.9 PERIPHERAL VASCULAR DISEASE, UNSPECIFIED 01/26/2018 BAIMA, VINCE L HARD ROCK DRILL OPERATOR Ot R00.2 PALPITATIONS 01/26/2018 BAIMA, VINCE L HARD ROCK DRILL OPERATOR Ot R06.09 OTHER FORMS OF DYSPNEA 01/26/2018 BAIMA, VINCE L HARD [employer]OCK DRILL OPERATOR Ot R07.9 CHEST PAIN, UNSPECIFIED 01/26/2018 BAIMA, VINCE L HARD ROCK DRILL OPERATOR Ot E78.2 MIXED HYPERLIPIDEMIA 01/26/2018 BAIMA, VINCE L HARD ROCK DRILL OPERATOR Ot I10 ESSENTIAL (PRIMARY) HYPERTENSION 01/26/2018 BAIMA, VINCE L HARD ROCK DRILL OPERATOR Ot I73.9 PERIPHERAL VASCULAR DISEASE, UNSPECIFIED 01/26/2018 BAIMA, VINCE L HARD ROCK DRILL OPERATOR Ot R00.2 PALPITATIONS 01/26/2018 BAIMA, VINCE L HARD ROCK DRILL OPERATOR Ot R06.09 OTHER FORMS OF DYSPNEA 01/26/2018 BAIMA, VINCE L HARD ROCK DRILL OPERATOR Ot R07.9 CHEST PAIN, UNSPECIFIED 01/26/2018 BAIMA, VINCE L HARD ROCK DRILL OPERATOR Ot E78.2 MIXED HYPERLIPIDEMIA 01/26/2018 BAIMA, VINCE L HARD ROCK DRILL OPERATOR Ot I10 ESSENTIAL (PRIMARY) HYPERTENSION 01/26/2018 BAIMA, VINCE L HARD ROCK DRILL OPERATOR Ot I73.9 PERIPHERAL VASCULAR DISEASE, UNSPECIFIED 01/26/2018 BAIMA, VINCE L HARD ROCK DRILL OPERATOR Ot R00.2 PALPITATIONS 01/26/2018 BAIMA, VINCE L HARD ROCK DRILL OPERATOR Ot R06.09 OTHER FORMS OF DYSPNEA 01/26/2018 BAIMA, VINCE L HARD ROCK DRILL OPERATOR Ot R07.9 CHEST PAIN, UNSPECIFIED 01/26/2018 ELOY ZAIDI Lisandra VAUGHN Ot K76.0 FATTY (CHANGE OF) LIVER, NOT ELSEWHERE C 01/26/2018 ZAIDIRADHA DiazZENY Fry APRN Ot Z90.49 ACQUIRED ABSENCE OF OTHER SPECIFIED PART 01/26/2018 ZAIDIELOY Diaz Lisandra VAUGHN Ot N28.89 OTHER SPECIFIED DISORDERS OF KIDNEY AND 02/09/2018 ZAIDI, ELOY Lisandra VAUGHN Ot R10.2 PELVIC AND PERINEAL [...] KIDNEY DISEASE W ST 03/24/2018 SHANKAR CREWS MD Ot J44.9 CHRONIC OBSTRUCTIVE PULMONARY DISEASE, U 03/24/2018 SHANKAR CREWS MD Ot N18.4 CHRONIC KIDNEY DISEASE, STAGE 4 (SEVERE) 03/24/2018 SHANKAR CREWS MD Ot Z79.51 NUTS AND BOLTS ASSEMBLER (CURRENT) USE OF INHALED STERO 03/24/2018 SHANKAR CREWS MD Ot Z79.52 ALF (CURRENT) USE OF SYSTEMIC STER 03/24/2018 SHANKAR CREWS MD Ot Z87.19 PERSONAL HISTORY OF OTHER DISEASES OF TH 03/24/2018 SHANKAR CREWS MD Ot Z87.891 PERSONAL HISTORY OF NICOTINE DEPENDENCE 03/24/2018 SHANKAR CREWS MD Ot Z88.4 ALLERGY STATUS TO ANESTHETIC AGENT STATU 03/24/2018 SHANKAR CREWS MD Ot Z90.49 ACQUIRED ABSENCE OF OTHER SPECIFIED PART 03/24/2018 MARS MD, SHANKAR D Ot Z91.040 LATEX ALLERGY STATUS 03/24/2018 SHANKAR CREWS MD Ot Z91.048 OTHER NONMEDICINAL SUBSTANCE ALLERGY STA 03/24/2018 SHANKAR CREWS MD Ot Z98.51 TUBAL LIGATION STATUS 03/26/2018 SHANKAR CREWS MD Ot E78.00 PURE HYPERCHOLESTEROLEMIA, UNSPECIFIED 03/26/2018 SHANKAR CREWS MD Ot F12.10 CANNABIS ABUSE, UNCOMPLICATED 03/26/2018 SHANKAR CREWS MD Ot F14.10 COCAINE ABUSE, UNCOMPLICATED 03/26/2018 SHANKAR CREWS MD Ot F15.10 OTHER STIMULANT ABUSE, UNCOMPLICATED 03/26/2018 SHANKAR CREWS MD, Ot H30.93 UNSPECIFIED CHORIORETINAL INFLAMMATION, 03/26/2018 SHANKAR CREWS MD Ot H57.9 UNSPECIFIED DISORDER OF EYE AND ADNEXA 03/26/2018 SHANKAR CREWS MD Ot I10 ESSENTIAL (PRIMARY) HYPERTENSION 03/26/2018 SHANKAR CREWS MD Ot J44.9 CHRONIC OBSTRUCTIVE PULMONARY DISEASE, U 03/26/2018 SHANKAR CREWS MD Ot N18.4 CHRONIC KIDNEY DISEASE, STAGE 4 (SEVERE) 03/26/2018 SHANKAR CREWS MD Ot Z79.51 ALF (CURRENT) USE OF INHALED STERO 03/26/2018 SHANKAR CREWS MD Ot Z79.52 ALF (CURRENT) USE OF SYSTEMIC STER 03/26/2018 SHANKAR [...] NONMEDICINAL SUBSTANCE ALLERGY STA 03/26/2018 SHANKAR CREWS MD Ot Z98.51 TUBAL LIGATION STATUS 03/26/2018 SHANKAR [...] (SEVERE) 03/26/2018 SHANKAR CREWS MD, Ot Z79.51 ALF (CURRENT) USE OF INHALED STERO 03/26/2018 SHANKAR CREWS MD Ot Z79.52 ALF (CURRENT) USE OF SYSTEMIC STER 03/26/2018 SHANKAR [...] NONMEDICINAL SUBSTANCE ALLERGY STA 03/26/2018 SHANKAR CREWS MD Ot Z98.51 TUBAL LIGATION STATUS 04/07/2018 ISAIAS BAUER MD Ot D86.9 SARCOIDOSIS, UNSPECIFIED 04/07/2018 ISAIAS BAUER MD Ot H20.9 UNSPECIFIED IRIDOCYCLITIS 04/09/2018 ISAIAS BAUER MD Ot D86.9 SARCOIDOSIS, UNSPECIFIED 04/09/2018 ISAIAS BAUER MD Ot H20.9 UNSPECIFIED IRIDOCYCLITIS 04/13/2018 OBED LANGLEY APRN Ot E78.00 PURE HYPERCHOLESTEROLEMIA, UNSPECIFIED 04/13/2018 OBED LANGLEY APRN Ot H20.9 UNSPECIFIED IRIDOCYCLITIS 04/13/2018 OBED LANGLEY APRN Ot H57.12 OCULAR PAIN, LEFT EYE 04/13/2018 OBED LANGLEY APRN Ot I10 ESSENTIAL (PRIMARY) HYPERTENSION 04/13/2018 OBED LANGLEY APRN Ot I12.9 HYPERTENSIVE CHRONIC KIDNEY DISEASE W ST 04/13/2018 OBED LANGLEY APRN Ot J44.9 CHRONIC OBSTRUCTIVE PULMONARY DISEASE, U 04/13/2018 OBED LANGLEY APRN Ot N18.4 CHRONIC KIDNEY DISEASE, STAGE 4 (SEVERE) 04/13/2018 OBED LANGLEY APRN Ot Z79.51 NUTS AND BOLTS ASSEMBLER (CURRENT) USE OF INHALED STERO 04/13/2018 OBED LANGLEY APRN Ot Z79.52 NUTS AND BOLTS ASSEMBLER (CURRENT) USE OF SYSTEMIC STER 04/13/2018 OBED LANGLEY APRN Ot Z87.19 PERSONAL HISTORY OF OTHER DISEASES OF TH 04/13/2018 OBED LANGLEY APRN Ot Z87.891 PERSONAL HISTORY OF NICOTINE DEPENDENCE 04/13/2018 OBED LANGLEY APRN Ot Z88.4 ALLERGY STATUS TO ANESTHETIC AGENT STATU 04/13/2018 OBED LANGLEY APRN Ot Z88.8 ALLERGY STATUS TO OTH DRUG/MEDS/BIOL SUB 04/13/2018 OBED LANGLEY APRN Ot Z90.49 ACQUIRED ABSENCE OF OTHER SPECIFIED PART 04/13/2018 OBED LANGLEY APRN Ot Z91.040 LATEX ALLERGY STATUS 04/13/2018 OBED LANGLEY APRN Ot Z91.048 OTHER NONMEDICINAL SUBSTANCE ALLERGY STA 04/13/2018 OBED LANGLEY APRN Ot Z98.51 TUBAL LIGATION STATUS 04/13/2018 OBED LANGLEY APRN Ot Z98.890 OTHER SPECIFIED POSTPROCEDURAL STATES 04/16/2018 OBED LANGLEY APRN Ot E78.00 PURE HYPERCHOLESTEROLEMIA, UNSPECIFIED 04/16/2018 OBED LANGLEY APRN Ot H20.9 UNSPECIFIED IRIDOCYCLITIS 04/16/2018 OBED LANGLEY APRN Ot H57.12 OCULAR PAIN, LEFT EYE 04/16/2018 OBED LANGLEY APRN Ot I10 ESSENTIAL (PRIMARY) HYPERTENSION 04/16/2018 OBED LANGLEY APRN Ot I12.9 HYPERTENSIVE CHRONIC KIDNEY DISEASE W ST 04/16/2018 OBED LANGLEY APRN Ot J44.9 CHRONIC OBSTRUCTIVE PULMONARY DISEASE, U 04/16/2018 OBED LANGLEY APRN Ot N18.4 CHRONIC KIDNEY DISEASE, STAGE 4 (SEVERE) 04/16/2018 OBED LANGLEY APRN Ot Z79.51 ALF (CURRENT) USE OF INHALED STERO 04/16/2018 OBED LANGLEY APRN Ot Z79.52 NUTS AND BOLTS ASSEMBLER (CURRENT) USE OF SYSTEMIC STER 04/16/2018 OBED LANGLEY APRN Ot Z87.19 PERSONAL HISTORY OF OTHER DISEASES OF TH 04/16/2018 OBED LANGLEY APRN Ot Z87.891 PERSONAL HISTORY OF NICOTINE DEPENDENCE 04/16/2018 OBED LANGLEY APRN Ot Z88.4 ALLERGY STATUS TO ANESTHETIC AGENT STATU 04/16/2018 OBED LANGLEY APRN Ot Z88.8 ALLERGY STATUS TO OTH DRUG/MEDS/BIOL SUB 04/16/2018 OBED LANGLEY APRN Ot Z90.49 ACQUIRED ABSENCE OF OTHER SPECIFIED PART 04/16/2018 OBED LANGLEY APRN Ot Z91.040 LATEX ALLERGY STATUS 04/16/2018 OBED LANGLEY APRN Ot Z91.048 OTHER NONMEDICINAL SUBSTANCE ALLERGY STA 04/16/2018 OBED LANGLEY APRN Ot Z98.51 TUBAL LIGATION STATUS 04/16/2018 OBED LANGLEY APRN Ot Z98.890 OTHER SPECIFIED POSTPROCEDURAL STATES Procedures Code [place] [address] HEMOCCULT 04/12/2012 00691 PAP SMEAR 04/14/2012 Otolaryng Caitlyn Castro 04/17/2012 Q0091 PAP SMEAR OBTAIN SMEAR 04/19/2012 53903 ROUTINE VENIPUNCTURE 07/01/2012 44926 ESR/SED RATE 07/01/2012 42020 CBC 07/01/2012 44027 CRP 07/01/2012 67826 URIC ACID 07/01/2012 99387 CMP 07/01/2012 2361460 GFR CALC (RESULT ONLY) 07/01/2012 31878 TSH 07/01/2012 34742 ASO 07/02/2012 15049 RA FACTOR 07/02/2012 ANAANA IVETH ANALYZER (SCREEN) 07/02/2012 39076 HEPATITIS PROFILE 07/02/2012 79742 ROUTINE VENIPUNCTURE 08/04/2012 11691 CMP 08/04/2012 90998 BNP 08/04/2012 60986 EKG, TRACING (IN-HOUSE) 08/18/2012 42082 H PYLORI (IN-HOUSE) 11/03/2012 31118 EGD 11/03/2012 59024 US AORTIC (DOPPLER) 11/03/2012 58371 ROUTINE VENIPUNCTURE 12/09/2012 23249 CBC 12/09/2012 93682 CMP 12/09/2012 5599977 GFR CALC (RESULT ONLY) 12/09/2012 19979 XRAY CHEST 2 VIEW 12/12/2012 11132 ROUTINE VENIPUNCTURE 02/22/2013 85802 CBC 02/22/2013 2429869 GFR CALC (RESULT ONLY) 02/22/2013 41527 CMP 02/22/2013 64946 PROLACTIN 02/22/2013 58586 TSH 02/22/2013 69406 ESTROGEN 02/27/2013 30190 MAMMOGRAM DX, MARK 03/09/2013 88554 ROUTINE VENIPUNCTURE 05/23/2013 40848 XRAY KNEE LEFT 3 VIEWS 05/23/2013 47328 XRAY FEET, MARK 05/23/2013 9720384 GFR CALC (RESULT ONLY) 05/24/2013 35778 CMP 05/24/2013 83490 CBC 05/24/2013 06578 ROUTINE VENIPUNCTURE 11/09/2013 78920 CBC 11/09/2013 6874320 GFR CALC (RESULT ONLY) 11/09/2013 54282 CMP 11/09/2013 39990 ROUTINE VENIPUNCTURE 12/12/2013 58617 LIVER PANEL (LFT) 12/12/2013 70863 UA W/ CULTURE IF INDICATED 12/29/2013 89931 CULTURE URINE 12/31/2013 41075 ROUTINE VENIPUNCTURE 02/06/2014 77315 CBC 02/06/2014 9372211 GFR CALC (RESULT ONLY) 02/06/2014 93399 CMP 02/06/2014 42313 LIVER PANEL (LFT) 02/06/2014 55858 URIC ACID 02/06/2014 77552 CRP 02/06/2014 64987 HEPATITIS PROFILE 02/06/2014 96118 XRAY KNEE RIGHT 3 VIEWS 02/07/2014 53236 RA FACTOR 02/07/2014 06018 ASO 02/07/2014 ANAANA IVETH ANALYZER (SCREEN) 02/07/2014 06846 MRI EXTREMITY, LOWER RIGHT, W/O CONTRAST 03/01/2014 69546 PSYCH DIAGNOSTIC EVALUATION 03/15/2014 76205 JOINT INJECTION- LARGE JOINT (SPECIFY MEDCIN DESCRIPTION) 04/06/2014 J1040 DEPO MEDROL 80 MG INJ 04/06/2014 13749 PSYTX PT&/FAMILY 45 MINUTES 04/19/2014 ORTHOPEDI DARVINALMA ROSACAITLYN 06/08/2014 67122 AMERITOX 08/14/2014 25491 UA LONG DIP 08/14/2014 Results Test Result [...] 7-25 CREATININE 3.03 mg/dL 0.50-1.05 eGFR NON-AFR. CITIZEN OF [place] 17 mL/min/1.73m2 > OR=60 eGFR 20 mL/min/1.73m2 [...] plasma rheumatoid factor measurement (units/volume) NEGATIVE NEGATIVE PET4424 - 04/06/18 15:12 Screening antinuclear antibody (IVETH) assay by enzyme immunoassay <1: 80 <1:80 Serum Borrelia species antibody assay (units/volume) - 04/06/18 15:12 LYME AB G M 0.32 % 0.00-0.89 Interpretation of Lyme disease antibody assay Negative Negative Serum ragweed IgE antibody assay - 04/06/18 15:12 MDA6993 Negative Negative Serum Toxoplasma gondii IgM antibody [...] Status Pt. Type Provider Facility Loc./Unit Complaint [id number] 07/27/2014 13:03:00 07/27/2014 23:59:59 CLS Outpatient JEWELS RAMOS APRN [id number] 07/27/2014 13:03:00 07/27/2014 23:59:59 CLS Outpatient JEWELS RAMOS APRN [id number] 06/13/2014 10:49:00 06/13/2014 23:59:59 CLS Outpatient JEWELS RAMOS APRN [id number] 06/08/2014 13:03:00 06/08/2014 23:59:59 CLS Outpatient SYMONE POST APRN [id number] 04/19/2014 10:10:00 04/19/2014 23:59:59 CLS Outpatient VELASQUEZ KAUR PSYD [id number] 04/06/2014 13:24:00 04/06/2014 23:59:59 CLS Outpatient JEWELS ROMANO DO [id number] 03/15/2014 10:35:00 03/15/2014 23:59:59 CLS Outpatient VELASQUEZ KAUR PSYD [id number] 02/23/2014 16:27:00 02/23/2014 23:59:59 CLS Outpatient TON LERMA APRN [id number] 02/06/2014 10:51:00 02/06/2014 23:59:59 CLS Outpatient TON LERMA APRN [id number] 02/02/2014 17:18:00 02/02/2014 23:59:59 CLS Outpatient TON LERMA APRN [id number] 12/29/2013 13:28:00 12/29/2013 23:59:59 CLS Outpatient TON LERMA APRN S [id number] 12/14/2013 17:38:00 12/14/2013 23:59:59 CLS Outpatient CATHERINE PERALES APRN [id number] 12/12/2013 11:56:00 12/12/2013 23:59:59 CLS Outpatient TON LERMA APRN S [id number] 11/09/2013 14:10:00 11/09/2013 23:59:59 CLS Outpatient TON LERMA APRN S [id number] 10/06/2013 15:40:00 10/06/2013 23:59:59 CLS Outpatient TON LERMA APRN S [id number] 05/23/2013 15:36:00 05/23/2013 23:59:59 CLS Outpatient TON LERMA APRN S [id number] 03/29/2013 08:09:00 03/29/2013 23:59:59 CLS Outpatient TON LERMA APRN S [id number] 03/08/2013 17:05:00 03/08/2013 23:59:59 CLS Outpatient ISAIAS VALENZUELA MD [id number] 02/22/2013 08:48:00 02/22/2013 23:59:59 CLS Outpatient TON LERMA APRN [id number] 11/11/2012 00:00:00 11/11/2012 23:59:59 CLS Outpatient TON LERMA APRN S [id number] 08/04/2012 13:50:00 08/04/2012 23:59:59 CLS Outpatient TAE JOHANA MARJORIE Alfredo [id number] 07/19/2012 11:32:00 07/19/2012 23:59:59 CLS Outpatient TON LERMA APRN S [id number] 07/12/2012 11:30:00 07/12/2012 23:59:59 CLS Outpatient [id number] 07/01/2012 13:52:00 07/01/2012 23:59:59 CLS Outpatient [id number] 04/17/2012 10:45:00 04/17/2012 23:59:59 CLS Outpatient JEWELS ROMANO DO [id number] 12/09/2012 12:12:00 Document Registration [id number] 11/03/2012 14:53:00 Document Registration [id number] 08/18/2012 15:12:00 Document Registration [id number] 06/29/2018 16:15:00 06/29/2018 23:59:59 CLS Outpatient SEAN MANCINI [facility] [id number] 11/26/2017 16:00:00 Document Registration [id number] 10/23/2017 15:40:00 Document Registration [id number] 10/09/2017 15:00:00 Document Registration [id number] 05/02/2017 15:25:00 Document Registration [id number] 04/10/2018 10:37:00 04/10/2018 11:35:00 DIS Outpatient OBED LANGLEY CONVENTION SERVICES DIRECTOR [facility] ER BILAT EYE INFECTION/L SIDE EYE PAIN [id number] 04/06/2018 14:56:00 04/06/2018 23:59:59 CLS Outpatient LIZETTE SHAH, ISAIAS Shaw [facility] RAD D86.0,H20.00 [id number] 03/24/2018 15:27:00 03/24/2018 17:54:00 DIS Emergency MARS SHAH, SHANKAR Waldrop [facility] ER EYE PROBLEMS [id number] 02/08/2018 13:03:00 02/08/2018 23:59:59 CLS Outpatient ELOY ZAIDI CONVENTION SERVICES DIRECTOR [facility] RAD PELVIC PAIN [id number] 11/19/2017 14:50:00 11/19/2017 19:32:00 DIS Emergency CORY SHAH, KATHERIN Walker [facility] ER LOW BLOOD PRESSURE [id number] 11/17/2017 09:13:00 11/17/2017 23:59:59 CLS Outpatient ELOY ZAIDI APRN [facility] RAD ELEVATED SERUM CREATININE [id number] 11/02/2017 06:50:00 11/02/2017 23:59:59 CLS Outpatient ELOY ZAIDI CONVENTION SERVICES DIRECTOR [facility] RAD ELEVATED LIVER ENZYMES [id number] 09/30/2017 19:20:00 10/01/2017 12:00:00 DIS Inpatient TIMOTHY ROSAS DO [facility] ICU HYPOMAGNESMIA, HYPOCALCEMIA, LOW TSH,RENAL INSUFF [id number] 02/10/2017 07:30:00 02/10/2017 23:59:59 CLS Outpatient BAIVINCE PATEL [employer] D[employer] OPERATOR [facility] CARD R07.9 [id number] 01/23/2017 14:54:00 01/23/2017 14:54:00 CAN Preadmit OTHER, UNLISTED [facility] LAB D803 [id number] 01/23/2017 14:45:00 01/23/2017 14:45:00 CAN Preadmit DEMARCO BETANCUR DO [facility] LAB R79.89 V12.69 [id number] 01/20/2017 14:22:00 01/20/2017 23:59:59 CLS Outpatient BAIVINCE PATEL [employer] D[employer]LL OPERATOR [facility] CARD R07.9 [id number] 01/20/2017 14:20:00 01/20/2017 23:59:59 CLS Outpatient BAIVINCE PATEL [employer] D[employer]LL OPERATOR [facility] RAD R07.9 [id number] 01/02/2017 12:02:00 01/02/2017 23:59:59 CLS Outpatient MARIA GUADALUPE TON [employer] D[employer] OPERATOR [facility] CARD EDEMA R60.9 [id number] 12/27/2016 13:34:00 12/27/2016 15:12:00 DIS Emergency MAKI SHAH, RUSTY Shaw [facility] ER L ARM, BACK, BOTH LEGS NUMBNESS. CP [id number] 03/24/2016 08:43:00 03/24/2016 23:59:59 CLS Outpatient QUINTEN LERMANDA [employer] OPERATOR [facility] RAD LOWER ABD PAIN [id number] 06/14/2015 10:38:00 06/14/2015 23:59:59 CLS Outpatient MARIA GUADALUPE, TON [employer] D[employer] OPERATOR [facility] RAD COLITIS [id number] 03/19/2015 09:30:00 03/19/2015 23:59:59 CLS Outpatient MARIA GUADALUPE TON [employer] D[employer] OPERATOR [facility] CARD LEFT CHEST PRESSURE [id number] 03/09/2015 05:38:00 03/09/2015 23:59:59 CLS Outpatient PRIETO ZEPEDA MD [facility] PREOP HX POLPS,FAMILY HX, RECTAL BLEEDING [id number] 03/08/2015 12:02:00 03/08/2015 14:45:00 DIS Outpatient PRIETO ZEPEDA MD [facility] SDC NAUSEA/UPPER GASTRIC PAIN [id number] 03/06/2015 05:42:00 03/06/2015 23:59:59 CLS Outpatient PRIETO ZEPEDA MD [facility] PREOP UPPER GASTRIC PAIN [id number] 03/01/2014 10:38:00 03/01/2014 23:59:59 CLS Outpatient TON LERMA [employer] D[employer] OPERATOR [facility] RAD PAIN IN KNEE [id number] 06/09/2013 14:13:00 06/09/2013 18:07:00 DIS Emergency BETTY SHAH, FRANKLYN Bowen [facility] ER ABD PAIN/VOMITING [id number] 03/10/2013 13:22:00 03/10/2013 23:59:59 CLS Outpatient DERECK ALVAREZ [employer] OPERATOR [facility] RAD BILAT NIPPLE DISCHARGE, BREAST PAIN [id number] 11/09/2012 07:47:00 11/09/2012 23:59:59 CLS Outpatient MARJORIE STRONG APRN [facility] RAD ABD PAIN, EPIGASTRIC [id number] 05/24/2015 09:00:00 Document Registration [id number] 08/04/2014 15:30:00 Document Registration [id number] 06/26/2014 11:49:00 Document Registration [id number] 07/05/2012 04:40:00 Document Registration [id number] 04/22/2012 13:36:00 Document Registration [id number] 04/20/2012 18:25:00 Document Registration [id number] 04/10/2011 05:44:00 Document Registration [id number] 04/03/2011 10:01:00 Document Registration [id number] 04/05/2010 14:06:00 Document Registration [id number] 03/18/2016 10:05:00 Document Registration [id number] 02/15/2016 18:06:00 Document Registration [id number] 12/02/2016 09:09:00 Document Registration
[2018-09-13 16:26] LABS: ALBUMIN 3.9 GM/DL (3.2-4.5); BILIRUBIN,TOTAL 0.3 MG/DL (0.1-1.0); CALCIUM 9.5 MG/DL (8.5-10.1); CREATININE SERUM 1.62 MG/DL (0.60-1.30); MAGNESIUM 1.7 MG/DL (1.8-2.4); POTASSIUM 4.1 MMOL/L (3.6-5.0); TOTAL PROTEIN 7.4 GM/DL (6.4-8.2)
--- NOTE | 2018-09-13 16:38 | Diagnostic Imaging Report ---
INDICATION: Renal failure, shortness breath EXAM: PA and lateral chest FINDINGS: Heart size and pulmonary vascularity are normal. Lungs are clear. There are no effusions or pneumothoraces. IMPRESSION: Negative chest. Dictated by: Dictated on workstation # [id number]
[2018-09-13] MEDS ORDERED: MAGNESIUM OXIDE (MAG-OX)400 MG TAB PO ONE (17:00)
[2018-09-13 17:09] LABS: BILIRUBIN,URINE NEGATIVE (NEGATIVE); CLARITY,URINE CLEAR; COLOR,URINE YELLOW; GLUCOSE, URINE (UA) NEGATIVE (NEGATIVE); KETONES,URINE NEGATIVE (NEGATIVE); LEUKOCYTE ESTERASE ,URINE 1+ (NEGATIVE); NITRITE,URINE NEGATIVE (NEGATIVE); PH,URINE 7 (5-9); PROTEIN,URINE 1+ (NEGATIVE); UROBILINOGEN,URINE NORMAL (NORMAL)
[2018-09-13 17:17] LABS: BACTERIA,URINE TRACE /HPF
[2018-09-13 17:48] VITALS: BP 159/94
== END 2018-09-13 18:00 | disposition home or self-care (01) ==
LOC: EDUNIT# 15:46 → ER 15:47
DX: R53.83 Other fatigue (principal); K21.9 Gastro-esophageal reflux disease without esophagitis; R25.2 Cramp and spasm; E83.42 Hypomagnesemia; K44.9 Diaphragmatic hernia without obstruction or gangrene; J44.9 Chronic obstructive pulmonary disease, unspecified; E78.00 Pure hypercholesterolemia, unspecified; I10 Essential (primary) hypertension; M79.7 Fibromyalgia; Z79.52 Long term (current) use of systemic steroids; Z91.048 Other nonmedicinal substance allergy status; Z98.51 Tubal ligation status; Z90.49 Acquired absence of other specified parts of digestive tract; Z98.890 Other specified postprocedural states; Z91.040 Latex allergy status; Z87.891 Personal history of nicotine dependence; Z88.4 Allergy status to anesthetic agent; Z88.8 Allergy status to other drugs, medicaments and biological substances; Z87.19 Personal history of other diseases of the digestive system
CPT/HCPCS: 36415; 71046; 80053; 81000; 83735; 83880; 85025; 86141; 94640

== ENCOUNTER 2018-11-11 06:18 | Outpatient (CLI) | payer BC ==
[~2018-11-11] VITALS: Ht 154.9 cm; Wt 102.1 kg
[2018-11-11] MEDS ORDERED: VNL75T PO (12:27)
[2018-11-11] MEDS ORDERED: AMIT25TA9 PO (12:34)
[2018-11-11] MEDS ORDERED: BUDE10.2 IH (12:34)
[2018-11-11] MEDS ORDERED: MAGN250T2 PO (12:34)
[2018-11-11] MEDS ORDERED: OMEP20CA12 PO (12:34)
[2018-11-11] MEDS ORDERED: FISH1CAP15 PO (12:34)
== END 2018-11-11 12:39 | disposition home or self-care (01) ==
LOC: PREOP 06:18
PROVIDERS: ATTEND Surgery
DX: Z01.818 Encounter for other preprocedural examination (principal)

== ENCOUNTER 2018-12-23 06:13 | Outpatient (CLI) | payer BC ==
[~2018-12-23] VITALS: Ht 154.9 cm; Wt 102.1 kg
[~2018-12-23 06:13] MED LIST changes: +AMIT25TA9 PO; +BUDE10.2 IH; +FISH1CAP15 PO; +MAGN250T2 PO; +OMEP20CA13 PO
== END 2018-12-23 15:22 | disposition home or self-care (01) ==
LOC: PREOP 06:13
PROVIDERS: ATTEND Surgery
DX: Z01.818 Encounter for other preprocedural examination (principal)

== ENCOUNTER 2018-12-25 16:22 | Emergency (ER) | payer BC ==
[~2018-12-25] VITALS: Ht 154.9 cm; Wt 102.1 kg
--- NOTE | 2018-12-25 16:25 | NUR ---
ATTEMPT TO TAKE PT TO TRIAGE ET PT IN THE BATHROOM AT THIS TIME.
[2018-12-25 16:49] VITALS: BP 147/88
--- NOTE | 2018-12-25 17:00 | ED General ---
General Chief Complaint: Cardiac/General Problems Stated Complaint: HIGH BLOOD PRESSURE 180/124,STAGE 4 KIDNEY DISEASE Nursing Triage Note: PT STATES SHE HAS STAGE 4 KIDNEY DZ AND HIS HAVING HIGH BP TODAY. COMPLAINS OF HEADACHE AND BEING TINGLY. Nursing Sepsis Screen: No Definite Risk Source of Information: Patient Exam Limitations: No Limitations History of Present Illness Date Seen by Provider: Dec 25, 2018 Time Seen by Provider: 16:45 Initial Comments This 53-year-old woman presents to the emergency room with concerns about exacerbated hypertension. She was not feeling well at [facility] and checked her blood pressure at the pharmacy. She found blood pressures of 174/112 and 180/124. She cannot identify anything that would've caused her blood pressure to rise such as stimulant medication use or excessive salt consumption. She also has some shortness of breath which is really more of a chronic problem. She has a hiatal hernia that causes pressure on her chest. She takes propranolol but denies any other blood pressure medications. She is scheduled to have a colonoscopy and EGD performed on Thursday due to her abdominal bloating and hiatal hernia problems. Blood pressure has significantly improved upon arrival. Patient has chronic kidney disease and states her wireless manager told her to be evaluated in the ER if she ever had severe exacerbations of hypertension. Allergies and Home Medications Allergies Coded Allergies: adhesive tape (Verified Allergy, Unknown, 11/19/17) latex (Verified Allergy, Unknown, 11/19/17) methotrexate (Unverified Allergy, Unknown, INCREASED LIVER ENZYMES, 06/26/14) procaine (Unverified Allergy, Unknown, RASH, 06/26/14) Home Medications Albuterol Sulfate 90 Mcg Aer.pow.ba, 2 PUFF INH Q4H PRN for SHORTNESS OF BREATH, (Reported) Amitriptyline HCl 25 Mg Tablet, 50 MG PO HS, (Reported) take 2 (25mg) tabs Budesonide/Formoterol Fumarate 10.2 Gm Hfa.aer.ad, 2 PUFF IH BID, (Reported) Colestipol HCl 1 Gm Tablet, 1 GM PO HS, (Reported) Diphenhydramine HCl 25 Mg Capsule, 25 MG PO HS, (Reported) Fish Oil/Dha/Epa 1 Each Capsule, 1,200 MG PO DAILY, (Reported) Folic Acid 1 Mg Tablet, 1 MG PO HS, (Reported) Magnesium 250 Mg Tablet, 250 MG PO HS, (Reported) Omeprazole 20 Mg Capsule.dr, 80 MG PO DAILY, (Reported) take 4 (20mg ) tabs prescribed 40mg bid but takes 80mg daily Propranolol HCl 20 Mg Tablet, 20 MG PO BID, (Reported) Propylene Glycol 10 Ml Drops, 1-2 DROPS OU QID PRN for DRY EYES, (Reported) Simvastatin 40 Mg Tablet, 40 MG PO HS, (Reported) Venlafaxine HCl 75 Mg Tab, 75 MG PO HS, (Reported) Patient Home Medication List Home Medication List Reviewed: Yes Review of Systems Review of Systems Constitutional: see HPI EENTM: no symptoms reported Respiratory: see HPI Cardiovascular: see HPI Gastrointestinal: see HPI Genitourinary: no symptoms reported : No Musculoskeletal: no symptoms reported Skin: no symptoms reported Psychiatric/Neurological: No Symptoms Reported Hematologic/Lymphatic: No Symptoms Reported Immunological/Allergic: no symptoms reported All Other Systems Reviewed Negative Unless Noted: No Past Udwwdua-Urfirl-Htfxjx Hx Patient Social History Alcohol Use: Denies Use Recreational Drug Use: Yes (SMOKED POT THIS WEEK) Drug of Choice: THC,METH,COCAINE-NO IV USE.CLAIMS "NONE FOR YEARS"-TEST + FOR METH 09/30/17 Type Used: Cigarettes, Electronic/Vapor Former Smoker, Quit: September 25, 2015 2nd Hand Smoke Exposure: No Recent Foreign Travel: No Contact w/Someone Who Travel: No Recent Infectious Disease Expo: No Recent Hopitalizations: No Immunizations Up To Date Date of Pneumonia Vaccine: October 01, 2011 Date of Influenza Vaccine: Jan 09, 2011 Seasonal Allergies Seasonal Allergies: Yes Past Medical History Surgeries: Yes (RIGHT KNEE SCOPE, ) Appendectomy, Gallbladder, Orthopedic, Tubal Ligation Respiratory: Yes Asthma, Chronic Bronchitis, COPD Cardiac: Yes High Cholesterol, Hypertension 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) Vertigo Reproductive Disorders: No RN ONCOLOGY CLINICAL History: Tubal Ligation, Menopausal Sexually Transmitted Disease: No Genitourinary: Yes (stage 4 kidney disease) Renal Failure Gastrointestinal: Yes (FATTY LIVER, gastritis) Colitis (ulcerative colitis), Gastroesophageal Reflux, Liver Disease/Jaundice, Diverticulosis (diverticulitis), Hiatal Hernia Musculoskeletal: Yes Arthritis, Fibromyalgia Endocrine: No HEENT: Yes (IRITIS) Cancer: No Psychosocial: No Integumentary: No Blood Disorders: No Family Medical History No Pertinent Family Hx, Diabetes Physical Exam Vital Signs Vital Signs - First Documented 12/25/18 16:28 Pulse 84 Resp 16 B/P (MAP) 180/92 (121) Pulse Ox 98 O2 Delivery Room Air Capillary Refill : Less Than 3 Seconds Height, Weight, BMI Height: 5'1.00" Weight: 225lbs. 0.0oz. [id number]; 42.5 BMI Method:Stated General Appearance: No Apparent Distress, WD/WN HEENT: PERRL/EOMI, Normal ENT Inspection Neck: Normal Inspection, Non Tender Respiratory: Lungs Clear, Normal Breath Sounds Cardiovascular: Regular Rate, Rhythm, No Edema, No Murmur Gastrointestinal: Normal Bowel Sounds, Non Tender, Soft, Distended (obese abdomen) Extremity: Normal Inspection, No Pedal Edema Neurologic/Psychiatric: Alert, Oriented x3, No Motor/Sensory Deficits, Normal Mood/Affect, typewriter aligner II-XII Norm as Tested Skin: Normal Color, Warm/Dry Progress/Results/Core Measures Suspected Sepsis Recent Fever Within 48 Hours: No Infection Criteria Present: None New/Unexplained Altered Menta: No Sepsis Screen: No Definite Risk SIRS Temperature: Pulse: 87 Respiratory Rate: 18 Blood Pressure 147 /88 Mean: 107 Laboratory Tests 12/25/18 16:43: Creatinine 1.55H Results/Orders Lab Results Laboratory Tests Test 12/25/18 16:43 Range/Units Sodium Level 138 135-145 MMOL/L Potassium Level 4.2 3.6-5.0 MMOL/L Chloride Level 105 98-107 MMOL/L Carbon Dioxide Level 15 L 21-32 MMOL/L Anion Gap 18 H 5-14 MMOL/L Blood Urea Nitrogen 16 7-18 MG/DL Creatinine 1.55 H 0.60-1.30 MG/DL Estimat Glomerular Filtration Rate 35 BUN/Creatinine Ratio 10 Glucose Level 112 H 70-105 MG/DL Calcium Level 9.5 8.5-10.1 MG/DL B-Type Natriuretic Peptide 17.4 <100.0 PG/ML My Orders Orders - KATHERIN RAY MD Basic Metabolic Panel (12/25/18 16:52) BNP (12/25/18 16:52) Chest 1 View, Ap/Pa Only (12/25/18 16:52) Ua Culture If Indicated (12/25/18 17:58) Vital Signs/I&O 12/25/18 12/25/18 12/25/18 16:28 16:49 17:20 Pulse 84 87 Resp 16 18 B/P (MAP) 180/92 (121) 147/88 (107) 140/77 (98) Pulse Ox 98 O2 Delivery Room Air Capillary Refill : Less Than 3 Seconds Blood Pressure Mean: 107 Diagnostic Imaging Diagonstic Imaging: Xray Plain Films/CT/US/NM/MRI: chest Comments Chest x-ray viewed by me and report reviewed. See report below: NAME: BRO [facility]IC[facility] REC#: [id number] PT STATUS: REG ER : 1965 PHYSICIAN: KATHERIN RAY MD ADMIT DATE: 12/25/18/ER Draft Date of Exam:12/25/18 CHEST 1 VIEW, AP/PA ONLY Portable erect AP chest at 0458 hours. INDICATION: Hypertension. FINDINGS: The heart size is within normal limits and stable when compared to 09/13/2018. The lungs are clear. There is no sign of failure, pneumonia or pleural effusion. The mediastinum is not widened. The osseous structures are intact. IMPRESSION: 1. There is no evidence for active disease. Dictated on workstation # [id number] Dict: 12/25/18 1702 Trans: 12/25/18 1713 [facility] [id number] Interpreted by: DAYAN STEVEN MD Departure Impression Primary Impression: Hypertension Qualified Codes: I10 - Essential (primary) hypertension Additional Impressions: Chronic iritis of both eyes Dysuria Acute headache Qualified Codes: R51 - Headache Disposition: 01 HOME, SELF-CARE Departure-Patient Inst. Referrals: [facility] (PCP/Family) Primary Care Physician Patient Instructions: Headache, Adult, Urinary Tract Infections in Adults Add. Discharge Instructions: Drink plenty of clear liquids. Complete your antibiotics as prescribed. Follow-up on urine culture results midweek with your primary care provider. Start your prednisolone eyedrops today. Call Dr. Moctezuma [phone] if you have worsening symptoms or if you're not improving by tomorrow morning. Try taking long-acting antihistamine such as Claritin, Zyrtec, or their generic equivalents in the morning to help with your allergy symptoms. You may safely take Tylenol (acetaminophen) up to 1000 mg every 6 hours as nee ded for pain. Return to care if you have worsening symptoms. All discharge instructions reviewed with patient and/or family. Voiced understanding. Scripts Cephalexin (Keflex) 500 Mg Capsule 500 MG PO BID, #14 CAP Prov: KATHERIN RAY MD 12/25/18 Prednisolone Acetate (Prednisolone Acetate) 5 Ml Drops.susp 2 DROPS OP QID, #1 EACH Prov: KATHERIN RAY MD 12/25/18 KATHERIN RAY MD Dec 25, 2018 17:00
[2018-12-25 17:12] LABS: CALCIUM 9.5 MG/DL (8.5-10.1); CREATININE SERUM 1.55 MG/DL (0.60-1.30); POTASSIUM 4.2 MMOL/L (3.6-5.0)
--- NOTE | 2018-12-25 17:14 | Diagnostic Imaging Report ---
Portable erect AP chest at 0458 hours. INDICATION: Hypertension. FINDINGS: The heart size is within normal limits and stable when compared to 09/13/2018. The lungs are clear. There is no sign of failure, pneumonia or pleural effusion. The mediastinum is not widened. The osseous structures are intact. IMPRESSION: There is no evidence for active disease. Dictated by: Dictated on workstation # [id number]
[2018-12-25 17:20] VITALS: BP 140/77
[2018-12-25 18:16] LABS: BILIRUBIN,URINE NEGATIVE (NEGATIVE); CLARITY,URINE CLEAR; COLOR,URINE YELLOW; GLUCOSE, URINE (UA) NEGATIVE (NEGATIVE); KETONES,URINE NEGATIVE (NEGATIVE); LEUKOCYTE ESTERASE ,URINE 3+ (NEGATIVE); NITRITE,URINE NEGATIVE (NEGATIVE); PH,URINE 6 (5-9); PROTEIN,URINE 2+ (NEGATIVE); UROBILINOGEN,URINE NORMAL (NORMAL)
[2018-12-25] MEDS ORDERED: PRED5DRO17 OP (18:16)
[2018-12-25] MEDS ORDERED: CEPH-507 PO (18:18)
[2018-12-25 18:23] LABS: BACTERIA,URINE MODERATE /HPF; WBC,URINE 25-50 /HPF
[2018-12-25 18:29] VITALS: BP 136/103
== END 2018-12-25 18:29 | disposition home or self-care (01) ==
LOC: EDUNIT# 16:22 → ER 16:23
DX: I12.9 Hypertensive chronic kidney disease with stage 1 through stage 4 chronic kidney disease, or unspecified chronic kidney disease (principal); N18.4 Chronic kidney disease, stage 4 (severe); J44.9 Chronic obstructive pulmonary disease, unspecified; E78.00 Pure hypercholesterolemia, unspecified; K21.9 Gastro-esophageal reflux disease without esophagitis; M79.7 Fibromyalgia; H20.13 Chronic iridocyclitis, bilateral; R51 Headache; Z87.19 Personal history of other diseases of the digestive system; Z91.040 Latex allergy status; Z88.8 Allergy status to other drugs, medicaments and biological substances; Z88.5 Allergy status to narcotic agent; Z77.22 Contact with and (suspected) exposure to environmental tobacco smoke (acute) (chronic); Z90.49 Acquired absence of other specified parts of digestive tract; Z98.51 Tubal ligation status
CPT/HCPCS: 36415; 71045; 80048; 81000; 83880; 87088

== ENCOUNTER 2018-12-27 09:16 | Day surgery (SDC) | payer BC ==
[2018-12-27] VITALS (8 sets, daily range): BP systolic 138–160; BP diastolic 74–98
[~2018-12-27] VITALS: Ht 154.9 cm; Wt 102.1 kg
[~2018-12-27 09:16] MED LIST changes: +CEPH-507 PO; +PRED5DRO17 OP
[2018-12-27] MEDS ORDERED: LACTATED RINGERS 1,000 ML IV STA (09:39)
[2018-12-27] MEDS ORDERED: HURRICAINE EXT TUBE (BENZOCAINE) XX ONE (09:45)
[2018-12-27 09:48] LABS: HCG,QUALITATIVE URINE NEGATIVE (NEGATIVE)
[2018-12-27 09:57] LABS: AMPHETAMINE SCREEN, URINE NEGATIVE (NEGATIVE); BARBITURATE SCREEN URINE NEGATIVE (NEGATIVE); BENZODIAZEPINES SCREEN URINE NEGATIVE (NEGATIVE); CANNABINOID SCREEN, URINE NEGATIVE (NEGATIVE); COCAINE SCREEN URINE NEGATIVE (NEGATIVE); METHADONE STAT NEGATIVE (NEGATIVE); METHAMPHETAMINE SCREEN URINE S NEGATIVE (NEGATIVE); OPIATE SCREEN URINE NEGATIVE (NEGATIVE); OXYCODONE STAT NEGATIVE (NEGATIVE); PROPOXYPHENE STAT NEGATIVE (NEGATIVE); TRICYCLIC ANTIDEPRESSANTS SCRE POSITIVE (NEGATIVE)
[2018-12-27] MEDS ORDERED: LACTATED RINGERS 1,000 ML IV ONE (10:06)
[2018-12-27] MEDS ORDERED: PROPOFOL INJECTION 50 ML IV ONE (10:50)
[2018-12-27] MEDS ORDERED: proPOfol 200 MG/20 ML (DIPRIVAN) VIAL IV ONE (11:15)
--- NOTE | 2018-12-27 11:33 | Progress Note-Post Operative ---
Post-Operative Progess Note Surgeon (s)/Museum Or Zoo Director (s) Surgeon FADI BENTLEY DO Museum Or Zoo Director: none Pre-Operative Diagnosis nausea & epigastric pain, screening Post-Operative Diagnosis Gastritis Hiatal Hernia Esophagitis Polyp INternal hemorrhoids Procedure & Operative Findings Date of Procedure 12/27/18 Procedure Performed/Findings EGD with bx Colon with snare Anesthesia Type IV Sedation by PAYROLL AND BENEFITS COORDINATOR Estimated Blood Loss Estimated blood loss (mL): scant Specimens/Packing Specimens Removed antral bx body of stomach bx GE jxn bx rectal polyp FADI BENTLEY DO Dec 27, 2018 11:33
--- NOTE | 2018-12-27 11:34 | Endoscopy Discharge Instruct ---
Endo Procedure/Findings Findings 1.: Gastritis 2.: Hiatal Hernia 3.: Polyp 4.: Internal Hemorrhoids Discharge Instructions - Activity: You might feel a little sleepy until tomorrow. This is due to the medicine you received to relax you. Until tomorrow, you should: NOT drive a car, operate machinery or power tools. NOT drink any alcoholic beverages. NOT make any important decisions or sign importortant papers. Do not return to work until tomorrow, unless otherwise instructed. Resume previous activities tomorrow. Diet: Start by taking liquids. If you tolerate liquids, advance to solid food. make an appointment for one week Instructions: 1.: Colonoscopy in 1 year Notify Physician - If you experience excessive bleeding, unusual abdominal pain, fever, or chest pain, contact your doctor immediately. Follow-Up: - I have received and understand the above instructions and will call my doctor if I have any further questions. Patient Signature Date Nurse Signature Other (Relationship) FADI BENTLEY DO Dec 27, 2018 11:34
--- NOTE | 2018-12-27 12:51 | Anesthesia-General Post-Op ---
MAC Patient Condition Mental Status/LOC: Same as Preop Cardiovascular: Satisfactory Nausea/Vomiting: Absent Respiratory: Satisfactory Pain: Controlled Complications: Absent Post Op Complications Complications None Follow Up Care/Instructions Patient Instructions None needed. Anesthesiology Discharge Order Discharge Order Patient is doing well, no complaints, stable vital signs, no apparent adverse anesthesia problems. No complications reported per nursing. JAMES SWANN CRNA Dec 27, 2018 12:51
--- NOTE | 2018-12-27 18:31 | OPERATIVE REPORT ---
DATE OF SERVICE: 12/27/2018 PREOPERATIVE DIAGNOSES: Abdominal pain and bloating and screening colonoscopy. POSTOPERATIVE DIAGNOSES: 1. Gastritis. 2. Hiatal hernia. 3. Esophagitis. 4. Rectal polyp. 5. Internal hemorrhoids. PROCEDURE: 1. EGD with biopsy. 2. Colonoscopy with snare polypectomy. SURGEON: Josh Summers DO TABLEAU DEVELOPER: None. ANESTHESIA: IV sedation by the LOADING INSPECTOR. SPECIMEN: One biopsy from the antrum, one biopsy from the body of stomach, one biopsy from the GE junction and then a large rectal polyp was removed. INDICATION FOR PROCEDURE: The patient is a 53-year-old female who has been having abdominal pain and bloating needs an EGD for workup. She never had a colonoscopy and needs one for screening. FINDINGS: The patient had some gastritis. She had a hiatal hernia a small one and some esophagitis. Biopsy was performed and then a colonoscopy showed a very large polyp near the rectum and some very small internal hemorrhoids. PROCEDURE NOTE: After informed consent was obtained, the patient was brought to the endoscopy suite and placed in the left lateral decubitus position. She was administered IV sedation by the LOADING INSPECTOR who then monitored his vitals the entire time, heart rate, blood pressure and pulse ox and the scope was inserted down the mouth through the esophagus into the stomach. Upon entering going down noted some changes at the GE junction, took a picture of this, pushed all the way into the antrum, took a picture of the antrum. Pushed through into the duodenum. Duodenum looked okay. Pulled back and did a biopsy of the antrum, then did a biopsy of the body of stomach. Retroflexed the scope, saw a small hiatal hernia then pulled up into the GE junction, did a biopsy and then pulled the scope up the esophagus, did not see any other obvious pathology. Pulled the scope out the esophagus and out the mouth then switched gloves switched cameras, went down below, started the colonoscopy. Pushed on the way in and saw a very large polyp, took a picture of this. Continued pushing all the way to about 140 cm, able to the cecum, took a picture of appendiceal orifice, noted the ileocecal valve and then slowly withdrew the scope insufflating to look circumferentially at the araujo looking at the cecum then pulled up the ascending colon to the hepatic flexure, then down the transverse colon to the splenic flexure, into the descending colon and then down in the sigmoid and finally in the rectum. Again saw this large polyp, I elected to do a hot snare polypectomy, able to get all the way under it and removed it completely. Suctioned up to the scope and then pulled the scope and polyp out. Pushed the scope back in and then retroflexed the rectal vault, saw some minimal internal hemorrhoids, took a picture of this and then removed the scope. The patient tolerated the procedure and she was recovered in endoscopy suite. Job ID: [id number] DocumentID: [id number] Dictated Date: 12/27/2018 15:44:02 Inclusion Intern Date: 12/27/2018 18:30:19 Dictated By: JOSH SUMMERS DO
== END 2018-12-27 12:45 | disposition home or self-care (01) ==
LOC: ENDO 09:16
PROVIDERS: ATTEND Surgery
DX: Z12.11 Encounter for screening for malignant neoplasm of colon (principal); D12.8 Benign neoplasm of rectum; K29.50 Unspecified chronic gastritis without bleeding; K21.0 Gastro-esophageal reflux disease with esophagitis; K44.9 Diaphragmatic hernia without obstruction or gangrene; K64.8 Other hemorrhoids; K51.90 Ulcerative colitis, unspecified, without complications; N20.0 Calculus of kidney; N18.9 Chronic kidney disease, unspecified; J44.9 Chronic obstructive pulmonary disease, unspecified; E78.5 Hyperlipidemia, unspecified; E66.01 Morbid (severe) obesity due to excess calories; Z68.41 Body mass index [BMI] 40.0-44.9, adult; F14.10 Cocaine abuse, uncomplicated; Z87.891 Personal history of nicotine dependence; Z91.040 Latex allergy status; Z88.8 Allergy status to other drugs, medicaments and biological substances; Z91.048 Other nonmedicinal substance allergy status; Z80.0 Family history of malignant neoplasm of digestive organs; Z83.71 Family history of colonic polyps
CPT/HCPCS: 80306; 84703; 88305

== ENCOUNTER 2019-05-25 05:48 | Outpatient (CLI) | payer BC ==
[~2019-05-25] VITALS: Ht 154 cm; Wt 56.0 kg
[~2019-05-25 05:48] MED LIST changes: +ASCO-413 PO; -ASCO500T5 PO; +OMEP-280 PO; -OMEP20CA13 PO; +OMEP40CA27 PO; -OMEP40CA36 PO; +SIMV40TA25 PO; -SIMV40TA4 PO
[2019-05-25] MEDS ORDERED: VENL150C PO (13:22)
[2019-05-25] MEDS ORDERED: TRAZ-190 PO (13:22)
== END 2019-05-25 13:30 | disposition home or self-care (01) ==
LOC: PREOP 05:48
PROVIDERS: ATTEND Specialist
DX: Z01.818 Encounter for other preprocedural examination (principal)

== ENCOUNTER 2019-05-27 07:50 | Day surgery (SDC) | payer BC ==
[~2019-05-27] VITALS: Ht 154 cm; Wt 56.0 kg
[2019-05-27 08:05] VITALS: BP_SYST 128; BP_SYST 161; BP_DIAS 118; BP_DIAS 95
[2019-05-27] MEDS ORDERED: MOXIFLOXACIN OPHTH SOLN 5 MG/ML 0.3 ML SYRINGE OP ONE (08:15)
[2019-05-27] MEDS ORDERED: POVIDONE (BETADINE) OPHTH SOLN 5% 30 ML OP ONE (08:15)
[2019-05-27] MEDS ORDERED: LIDOCAINE PF 1% 2 ML VIAL IR PRN (08:15)
[2019-05-27] MEDS ORDERED: TIMOLOL MALEATE 0.5% 5 ML (TIMOPTIC) BTL OU PRN (08:15)
[2019-05-27] MEDS: TETRACAINE 0.5% OPHTH SOLN 4 ML BTL (SINGLE DOSE ONLY) OU PRN ×4 (08:26→09:09)
[2019-05-27] MEDS: CYCLOPENTOLATE 1% (CYCLOGYL) 2 ML DROPS OP SCH ×3 (08:49→09:09)
[2019-05-27] MEDS: PHENYLEPHRINE 10% OPHTH (NEO-SYN) 5 ML BTL OU SCH ×3 (08:49→09:09)
--- NOTE | 2019-05-27 09:24 | Ophthalmologist Pre-Op Note ---
Pre-Operative Progress Note H&P Reviewed The H&P was reviewed, patient examined and no changes noted. Date H&P Reviewed: May 27, 2019 Time H&P Reviewed: 09:24 Pre-Op Dx Cataract, Right Eye HECTOR MARTINES MD May 27, 2019 09:24
[2019-05-27] MEDS ORDERED: acetaZOLAMIDE ER 500 MG CAP (DIAMOX SEQUELS) PO ONE (09:30)
[2019-05-27] MEDS ORDERED: MIDAZOLAM 2 MG/2 ML (VERSED) VIAL ONE (09:33)
--- NOTE | 2019-05-27 09:54 | Ophthalmology Operative Report ---
Cataract removal/placement IOL PREOPERATIVE DIAGNOSIS: Cataract Right Eye POSTOPERATIVE DIAGNOSIS: Cataract Right Eye PROCEDURE: Cataract removal and placement of posterior chamber implant, right eye SURGEON: Sourav Martines ANESTHESIA: Topical with sedation COMPLICATIONS: None ESTIMATED BLOOD LOSS: Minimal DESCRIPTION OF PROCEDURE: After proper informed consent was obtained, the patient, a 54 female, was taken to the Operating Room and the right eye was anesthetized with tetracaine. The right eye was then prepped and draped in the usual manner. A wire lid speculum was placed. A paracentesis was made at the left hand position. Preservative free lidocaine was injected into the anterior chamber followed by viscoelastic. A clear corneal incision was made in the temporal position. A capsulorrhexis was preformed and the central nuclear and cortical material were removed. The posterior capsule was polished and Jackson 24.0 AU00T0 IOL was placed into the capsular bag. The residual viscoelastic was aspirated and balanced saline solution was injected into the anterior chamber. Moxifloxacin was injected into the anterior chamber. The wound was checked and found to be water tight. The patient tolerated the procedure well without complications. SOURAV MARTINES MD May 27, 2019 09:54
[2019-05-27 10:00] VITALS: BP 182/98
--- NOTE | 2019-05-27 14:15 | Anesthesia-General Post-Op ---
MAC Patient Condition Mental Status/LOC: Same as Preop Cardiovascular: Satisfactory Nausea/Vomiting: Absent Respiratory: Satisfactory Pain: Controlled Complications: Absent Post Op Complications Complications None Follow Up Care/Instructions Patient Instructions None needed. Anesthesiology Discharge Order Discharge Order Patient is doing well, no complaints, stable vital signs, no apparent adverse anesthesia problems. No complications reported per nursing. SYMONE LONG CRNA May 27, 2019 14:15
== END 2019-05-27 10:00 | disposition home or self-care (01) ==
LOC: SDC 07:50
PROVIDERS: ATTEND Specialist
DX: H25.11 Age-related nuclear cataract, right eye (principal); N18.4 Chronic kidney disease, stage 4 (severe); I10 Essential (primary) hypertension; J44.9 Chronic obstructive pulmonary disease, unspecified; K21.9 Gastro-esophageal reflux disease without esophagitis; G47.00 Insomnia, unspecified; E78.5 Hyperlipidemia, unspecified; E78.00 Pure hypercholesterolemia, unspecified; F32.9 Major depressive disorder, single episode, unspecified; Z91.040 Latex allergy status; Z88.8 Allergy status to other drugs, medicaments and biological substances; Z91.048 Other nonmedicinal substance allergy status; Z87.891 Personal history of nicotine dependence; Z98.51 Tubal ligation status; Z79.899 Other long term (current) drug therapy; Z83.6 Family history of other diseases of the respiratory system; Z83.3 Family history of diabetes mellitus; Z80.9 Family history of malignant neoplasm, unspecified

== ENCOUNTER 2019-06-10 08:05 | Day surgery (SDC) | payer BC ==
[~2019-06-10] VITALS: Ht 154.9 cm; Wt 56.0 kg
[2019-06-10 08:05] VITALS: BP 134/100
[2019-06-10] MEDS ORDERED: POVIDONE (BETADINE) OPHTH SOLN 5% 30 ML OP ONE (08:15)
[2019-06-10] MEDS ORDERED: TIMOLOL MALEATE 0.5% 5 ML (TIMOPTIC) BTL OU PRN (08:15)
[2019-06-10] MEDS ORDERED: MOXIFLOXACIN OPHTH SOLN 5 MG/ML 0.3 ML SYRINGE OP ONE (08:15)
[2019-06-10] MEDS ORDERED: LIDOCAINE PF 1% 2 ML VIAL IR PRN (08:15)
[2019-06-10] MEDS: TETRACAINE 0.5% OPHTH SOLN 4 ML BTL (SINGLE DOSE ONLY) OU PRN ×4 (08:22→08:58)
[2019-06-10] MEDS: CYCLOPENTOLATE 1% (CYCLOGYL) 2 ML DROPS OP SCH ×3 (08:33→08:58)
[2019-06-10] MEDS: PHENYLEPHRINE 10% OPHTH (NEO-SYN) 5 ML BTL OU SCH ×3 (08:33→08:58)
--- NOTE | 2019-06-10 09:18 | Ophthalmologist Pre-Op Note ---
Pre-Operative Progress Note H&P Reviewed The H&P was reviewed, patient examined and no changes noted. Date H&P Reviewed: Jun 10, 2019 Time H&P Reviewed: 09:17 Pre-Op Dx Cataract, Left Eye HECTOR MARTINES MD Jun 10, 2019 09:17
[2019-06-10] MEDS ORDERED: MIDAZOLAM 2 MG/2 ML (VERSED) VIAL ONE (09:19)
[2019-06-10] MEDS ORDERED: acetaZOLAMIDE ER 500 MG CAP (DIAMOX SEQUELS) PO ONE (09:30)
--- NOTE | 2019-06-10 09:44 | Ophthalmology Operative Report ---
Cataract removal/placement IOL PREOPERATIVE DIAGNOSIS: Cataract Left Eye POSTOPERATIVE DIAGNOSIS: Cataract Left Eye PROCEDURE: Cataract removal and placement of posterior chamber implant, left eye SURGEON: Sourav Martines ANESTHESIA: Topical with sedation COMPLICATIONS: None ESTIMATED BLOOD LOSS: Minimal DESCRIPTION OF PROCEDURE: After proper informed consent was obtained, the patient, a 54 female, was taken to the Operating Room and the left eye was anesthetized with tetracaine. The left eye was then prepped and draped in the usual manner. A wire lid speculum was placed. A paracentesis was made at the left hand position. Preservative free lidocaine was injected into the anterior chamber followed by viscoelastic. A clear corneal incision was made in the temporal position. A capsulorrhexis was preformed and the central nuclear and cortical material were removed. The posterior capsule was polished and an Jackson 23.0 AU00T0 was placed into the capsular bag. The residual viscoelastic was aspirated and balanced saline solution was injected into the anterior chamber. Moxifloxacin was injected into the anterior chamber. The wound was checked and found to be water tight. The patient tolerated the procedure well without complications. SOURAV MARTINES MD Jun 10, 2019 09:44
[2019-06-10 09:50] VITALS: BP 179/104
--- NOTE | 2019-06-10 15:06 | Anesthesia-General Post-Op ---
MAC Patient Condition Mental Status/LOC: Same as Preop Cardiovascular: Satisfactory Nausea/Vomiting: Absent Respiratory: Satisfactory Pain: Controlled Complications: Absent Post Op Complications Complications None Follow Up Care/Instructions Patient Instructions None needed. Anesthesiology Discharge Order Discharge Order Patient was seen this morning after the procedure and she was doing well, no complaints, stable vital signs, no apparent adverse anesthesia problems. MABEL TITUS DO Jun 10, 2019 15:06
== END 2019-06-10 09:50 | disposition home or self-care (01) ==
LOC: SDC 08:05
PROVIDERS: ATTEND Specialist
DX: H25.12 Age-related nuclear cataract, left eye (principal); H35.30 Unspecified macular degeneration; H40.9 Unspecified glaucoma; G47.00 Insomnia, unspecified; E78.5 Hyperlipidemia, unspecified; E78.00 Pure hypercholesterolemia, unspecified; I10 Essential (primary) hypertension; J44.9 Chronic obstructive pulmonary disease, unspecified; K21.9 Gastro-esophageal reflux disease without esophagitis; F32.9 Major depressive disorder, single episode, unspecified; Z91.040 Latex allergy status; Z91.048 Other nonmedicinal substance allergy status; Z90.49 Acquired absence of other specified parts of digestive tract; Z79.899 Other long term (current) drug therapy; Z83.3 Family history of diabetes mellitus; Z80.9 Family history of malignant neoplasm, unspecified

== ENCOUNTER 2020-11-18 23:57 | Emergency (ER) | payer SELFPAY ==
[~2020-11-18] VITALS: Ht 154.9 cm; Wt 100.0 kg
[~2020-11-18 23:57] MED LIST changes: +AMLO-251 PO; -AMLO10TA7 PO; -ASCO-413 PO; +ASCO500T71 PO; +FOLI1TAB33 PO; +LISI40TA9 PO; -OMEP-280 PO; +OMEP20CA18 PO; -OMEP40CA27 PO; +OMEP40CA6 PO; -TRAZ-190 PO; +TRAZ-227 PO
--- NOTE | 2020-11-19 00:48 | ED Cough/URI ---
General Chief Complaint: Cough/Cold/Flu Symptoms Stated Complaint: COLD SYMPTOMS Nursing Triage Note: Pt ambulatory into ER with complaint of cough, cold x4 days. Pt states "theres no way its fucking covid, I'm fully vaccinated". Pt states that she just needs an antibiotic and sent home. Pt has no PCP at this time. Source: patient Exam Limitations: no limitations History of Present Illness Date Seen by Provider: Nov 19, 2020 Time Seen by Provider: 00:28 Initial Comments Patient to the ER by private conveyance with chief complaint of cough, wheezing, body aches, fever and body ache chills. Her had this about 2 days prior to her and she is had it for about a week better part of the week. She had [employer] Covid vaccination. No productive cough. She has an albuterol inhaler but has not been using it. She has a history of COPD. Quit smoking 7 years ago. Allergies and Home Medications Allergies Coded Allergies: adhesive tape (Verified Allergy, Unknown, 05/25/19) latex (Verified Allergy, Unknown, 05/25/19) methotrexate (Verified Allergy, Unknown, INCREASED LIVER ENZYMES, 05/25/19) procaine (Verified Allergy, Unknown, RASH, 05/25/19) Home Medications Albuterol Sulfate 90 Mcg Aer.pow.ba, 2 PUFF INH Q4H PRN for SHORTNESS OF BREATH, (Reported) Amitriptyline HCl 25 Mg Tablet, 50 MG PO HS, (Reported) take 2 (25mg) tabs Budesonide/Formoterol Fumarate 10.2 Gm Hfa.aer.ad, 2 PUFF IH BID, (Reported) Colestipol HCl 1 Gm Tablet, 1 GM PO HS, (Reported) Folic Acid 1 Mg Tablet, 1 MG PO HS, (Reported) Magnesium 250 Mg Tablet, 250 MG PO HS, (Reported) Omeprazole 20 Mg Capsule.dr, 80 MG PO DAILY, (Reported) take 4 (20mg ) tabs prescribed 40mg bid but takes 80mg daily Propranolol HCl 20 Mg Tablet, 20 MG PO BID, (Reported) Simvastatin 40 Mg Tablet, 40 MG PO HS, (Reported) Trazodone HCl 100 Mg Tablet, 100 MG PO DAILY, (Reported) Venlafaxine HCl 150 Mg Cap.er.24h, 150 MG PO DAILY, (Reported) Patient Home Medication List Home Medication List Reviewed: Yes Review of Systems Review of Systems Constitutional: chills; No diaphoresis; fever, malaise EENTM: No ear discharge, No ear pain Respiratory: cough; No phlegm; short of breath, wheezing Cardiovascular: No chest pain, No edema, No Hx of Intervention, No palpitations Gastrointestinal: No abdominal pain, No nausea Genitourinary: No discharge, No dysuria Musculoskeletal: No back pain, No joint pain All Other Systems Reviewed Negative Unless Noted: Yes Past Ndfiypc-Uzczmx-Brrapy Hx Patient Social History Tobacco Use?: No Use of E-Cig and/or Vaping dev: No Substance use?: Yes Substance type: Marijuana Alcohol Use?: No Pt feels they are or have been: No Immunizations Up To Date Influenza Vaccine Up-to-Date: No; Not Current Second COVID19 Vaccination Felix: 08/01/20 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: [employer] Seasonal Allergies Seasonal Allergies: Yes Past Medical History Surgeries: Yes (RIGHT KNEE SCOPE, ) Appendectomy, Gallbladder, Orthopedic, Tubal Ligation Respiratory: Yes Asthma, Chronic Bronchitis, COPD Cardiac: Yes High Cholesterol, Hypertension 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) Vertigo Reproductive Disorders: 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 0.0oz. 102.779899is; 41.00 BMI Method:Stated General Appearance: WD/WN, no apparent distress Eyes: Bilateral Eye Normal Inspection, Bilateral Eye PERRL, Bilateral Eye EOMI HEENT: PERRL/EOMI, TMs normal (Bilateral injection, mild), pharynx normal Neck: full range of motion, normal inspection Respiratory: no respiratory distress (95 to 98% on room air.), no accessory muscle use, wheezing Cardiovascular: normal peripheral pulses, regular rate, rhythm Extremities: normal range of motion, normal inspection, normal capillary refill Neurologic/Psychiatric: alert, normal mood/affect, oriented x 3 Skin: normal color, warm/dry Progress/Results/Core Measures Suspected Sepsis SIRS Temperature: Pulse: 88 Respiratory Rate: 20 Blood Pressure 186 /109 Mean: 134 Results/Orders Lab Results Laboratory Tests Test 11/19/20 00:16 Range/Units Influenza Type A (RT-PCR) Not Detected Not Detecte Influenza Type B (RT-PCR) Not Detected Not Detecte SARS-CoV-2 RNA (RT-PCR) Detected H Not Detecte My Orders Orders - DAVONTE BREAUX Covid 19 Inhouse Test (11/19/20 00:21) Influenza A And B By Pcr (11/19/20 00:21) Vital Signs/I&O 11/19/20 11/19/20 00:22 00:22 Temp 36.7 Pulse 88 Resp 20 B/P (MAP) 186/109 (134) Pulse Ox 96 O2 Delivery Room Air Room Air Capillary Refill : Less Than 3 Seconds Blood Pressure Mean: 134 Progress Note #1: Time: 00:48 Progress Note We will start with a Covid swab. She has albuterol at home. We can offer her some steroids. Progress Note #2: Time: 01:19 Progress Note Conservative counseling. She has a nebulizer with does not have any albuterol left. We will get her some albuterol to go home with and she has some mild wheezing but does not necessarily need steroids at this time. We will set her up for monoclonal antibodies tomorrow preferably and encourage appropriate follow-up. Return precautions were discussed. Questions were answered. Patient is eager to do the monoclonal antibody testing. We discussed risks, benefits and alternatives. Discussed that it is not approved drug authorized for use under an emergency use authorization. We discussed alternatives and patient still wants to do the medication if she will qualify. Departure Impression Primary Impression: COVID-19 Additional Impression: COPD with exacerbation Disposition: HOME, SELF-CARE Condition: Stable Departure-Patient Inst. Decision time for Depature: 01:21 Referrals: [facility] (PCP/Family) Primary Care Physician Patient Instructions: Exacerbation of COPD (DC), COVID-19 Overview, REGEN-COV (casirivimab and imdevimab) FDA Fact Sheet Add. Discharge Instructions: Albuterol every 4 hours as necessary for wheezing or cough. Tessalon Perles 1 tablet every 6 hours as necessary for cough. Drink plenty of fluids. If your oxygen sats are consistently below 90% while at rest or if you are having other worrisome symptoms then please return to the ER. Someone should call you tomorrow about setting up the monoclonal antibodies through the hospital. All discharge instructions reviewed with patient and/or family. Voiced understanding. Scripts Benzonatate (TESSALON PERLES) 100 Mg Capsule 100 MG PO Q6H PRN for COUGH, #30 CAP 0 Refills Prov: DAVONTE BREAUX 11/19/20 Ondansetron (Ondansetron Odt) 4 Mg Tab.rapdis 4 MG PO Q6H PRN for NAUSEA/VOMITING, #15 TAB 0 Refills Prov: DAVONTE BREAUX 11/19/20 Albuterol Sulfate (Albuterol Sulfate) 2.5 Mg/3 Ml Vial.neb 2.5 MG INH Q4H PRN for WHEEZING, #50 EA 1 Refill Prov: DAVONTE BREAUX 11/19/20 Work/School Note: Work Release Form Date Seen in the Emergency Department: Nov 19, 2020 Return to Work: Nov 22, 2020 Restrictions: Return-No Fever (24hrs) Other Restrictions Listed Below: Off isolation if 24 hours symptom-free by 11/22/2020 DAVONTE BREAUX Nov 19, 2020 00:48
[2020-11-19] MEDS ORDERED: ONDA4TAB11 PO (01:28)
[2020-11-19] MEDS ORDERED: ALBU2.5V4 INH (01:28)
[2020-11-19] MEDS ORDERED: BENZ100C18 PO (01:28)
[2020-11-19 01:40] VITALS: BP 174/118
== END 2020-11-19 01:40 | disposition home or self-care (01) ==
LOC: EDUNIT# 23:57 → ER 23:59
DX: U07.1 COVID-19 (principal); J44.1 Chronic obstructive pulmonary disease with (acute) exacerbation; I10 Essential (primary) hypertension; E78.00 Pure hypercholesterolemia, unspecified; K21.9 Gastro-esophageal reflux disease without esophagitis; Z87.891 Personal history of nicotine dependence; Z79.899 Other long term (current) drug therapy
CPT/HCPCS: 87636; 99282

== ENCOUNTER → 2020-11-19 | Outpatient (CLI) | payer SELFPAY ==
[~2020-11-19] VITALS: Ht 154.9 cm; Wt 101.8 kg
[~2020-11-19] MED LIST changes: +ALBU2.5V4 INH; +BENZ100C18 PO; +CASIRIVIMAB/IMDEVIMAB 1,200 MG in NS (IVPB) 250 ML IV ONE; +EPINEPHrine INJECTION 1 MG/ML AMP IM PRN; +ONDA4TAB11 PO; +diphenhydrAMINE 50 MG/ML INJ (BENADRYL) IV PRN
[2020-11-19 12:32] VITALS: BP 91/64
[2020-11-19 14:28] VITALS: BP 89/63
== END ==
LOC: INFUSION 12:43
PROVIDERS: ATTEND Emergency Medicine
DX: Z23 Encounter for immunization (principal); U07.1 COVID-19

== ENCOUNTER 2021-11-13 05:35 | Outpatient (CLI) | payer SELFPAY ==
[~2021-11-13] VITALS: Ht 154.9 cm; Wt 100.7 kg
[~2021-11-13 05:35] MED LIST changes: -CASIRIVIMAB/IMDEVIMAB 1,200 MG in NS (IVPB) 250 ML IV ONE; -EPINEPHrine INJECTION 1 MG/ML AMP IM PRN; -MAGN250T2 PO; +MAGN250T31 PO; +VENL150C3 PO; -diphenhydrAMINE 50 MG/ML INJ (BENADRYL) IV PRN
[2021-11-13] MEDS ORDERED: TIOT4MIS2 IH (10:47)
[2021-11-13] MEDS ORDERED: OMEG1CAP58 PO (10:47)
== END 2021-11-13 10:52 | disposition home or self-care (01) ==
LOC: PREOP 05:35
PROVIDERS: ATTEND Surgery
DX: Z01.818 Encounter for other preprocedural examination (principal)

== ENCOUNTER 2021-11-25 07:05 | Day surgery (SDC) | payer OTHER ==
[~2021-11-25] VITALS: Ht 155 cm; Wt 100.7 kg
[~2021-11-25 07:05] MED LIST changes: +OMEG1CAP58 PO; +TIOT4MIS2 IH
[2021-11-25] MEDS ORDERED: LACTATED RINGERS 1,000 ML IV STA (07:25)
[2021-11-25] MEDS ORDERED: HURRICAINE EXT TUBE (BENZOCAINE) XX PRN (07:30)
[2021-11-25 07:41] VITALS: BP 131/88
[2021-11-25] MEDS ORDERED: PROPOFOL INJECTION 50 ML IV ONE (08:47)
[2021-11-25 09:15] VITALS: BP 128/68
[2021-11-25 09:20] VITALS: BP 126/66
--- NOTE | 2021-11-25 09:21 | Progress Note-Post Operative ---
Post-Operative Progess Note Surgeon (s)/[employer] Tuber Machine Operator (s) Surgeon FADI BENTLEY DO [employer] Tuber Machine Operator: none Pre-Operative Diagnosis Chronic Gastritis, Hx of polyps Post-Operative Diagnosis Duodenal polyp Gastritis Hiatal hernia Esophagitis polyp diverticula int hemorrhoids Procedure & Operative Findings Date of Procedure 11/25/21 Procedure Performed/Findings EGD with bx Colon with snare Colon with cold bx PROCEDURE NOTE: After informed consent was obtained, the patient was brought to the endoscopy suite, placed in bed in left lateral decubitus position. She was administered IV sedation by the COIL MACHINE OPERATOR who then monitored vitals the entire time, heart rate, blood pressure and pulse ox and the scope was inserted down the mouth through the esophagus into the stomach. On the way down, noted some mild esophagitis, took a picture, pushed into the stomach, pushed past the antrum into the duodenum. In the duodenum found a polyp and did a biopsy of it. Pulled back into the antrum and noticed moderate gastritis; did a biopsy of the antrum. Then retroflexed the scope, saw a 1cm hiatal hernia and took a picture of this. Then did a biopsy of the body of the stomach. Pulled the scope into the GE junction and then did a biopsy of the GE junction. Pushed the scope back into the stomach, suctioned all the air out of the stomach. At this point pulled the scope up the esophagus and out the mouth. Switched camera, switched gloves, went down below, started the colonoscopy. Pushed all the way into about 140 cm to get all the way to cecum, took a picture of the appendiceal orifice and noted the ileocecal valve. On the way in found a small flat polyp and elected to do a cold biopsy of it. This was in the upper portion of descending colon. Then I noticed a large polyp behind it and removed this entirely with a snare polypectomy. Continued up and found another decent size polyp that I removed with snare (may have been descending or transverse colon). Once in the cecum I slowly withdrew the scope, insufflating to look circumferentially at the araujo starting in the cecum, up the ascending colon to the hepatic flexure, then down the transverse colon to the splenic flexure, into the descending colon and down into the sigmoid. Saw at least one diverticula through here and took a picture of it. Finally into the rectum, retroflexed in the rectal vault and saw some minimal internal hemorrhoids. Took a picture of them. The patient tolerated the procedure and she recovered in the endoscopy suite. Recommended for repeat colonoscopy in 5 years Anesthesia Type IV sedation by COIL MACHINE OPERATOR Estimated Blood Loss Estimated blood loss (mL): scant Specimens/Packing Specimens Removed duodenal polyp antral bx body of stomach bx GE jxn bx Desc colon polyp x 3 FADI BENTLEY DO Nov 25, 2021 09:21
--- NOTE | 2021-11-25 09:23 | Endoscopy Discharge Instruct ---
Endo Procedure/Findings Findings 1.: Gastritis 2.: Hiatal Hernia 3.: Polyp 4.: Diverticulosis, Internal Hemorrhoids Discharge Instructions - Activity: You might feel a little sleepy until tomorrow. This is due to the medicine you received to relax you. Until tomorrow, you should: NOT drive a car, operate machinery or power tools. NOT drink any alcoholic beverages. NOT make any important decisions or sign importortant papers. Do not return to work until tomorrow, unless otherwise instructed. Resume previous activities tomorrow. Diet: Start by taking liquids. If you tolerate liquids, advance to solid food. 1.: EGD in 3 years 2.: Colonscopy in 5 years Notify Physician - If you experience excessive bleeding, unusual abdominal pain, fever, or chest pain, contact your doctor immediately. FADI BENTLEY DO Nov 25, 2021 09:23
--- NOTE | 2021-11-25 10:02 | Anesthesia-General Post-Op ---
MAC Patient Condition Mental Status/LOC: Same as Preop Cardiovascular: Satisfactory Nausea/Vomiting: Absent Respiratory: Satisfactory Pain: Controlled Complications: Absent Post Op Complications Complications None Follow Up Care/Instructions Patient Instructions None needed. Anesthesiology Discharge Order Discharge Order Patient is doing well, no complaints, stable vital signs, no apparent adverse anesthesia problems. No complications reported per nursing. MIREYA RDZ CRNA Nov 25, 2021 10:02
[2021-11-25 10:12] VITALS: BP 126/66
== END 2021-11-25 10:12 | disposition home or self-care (01) ==
LOC: ENDO 07:05
PROVIDERS: ATTEND Surgery
DX: Z12.11 Encounter for screening for malignant neoplasm of colon (principal); D12.4 Benign neoplasm of descending colon; K29.50 Unspecified chronic gastritis without bleeding; K31.7 Polyp of stomach and duodenum; K21.00 Gastro-esophageal reflux disease with esophagitis, without bleeding; K57.30 Diverticulosis of large intestine without perforation or abscess without bleeding; K64.8 Other hemorrhoids; D13.2 Benign neoplasm of duodenum; Z79.899 Other long term (current) drug therapy; E66.01 Morbid (severe) obesity due to excess calories; Z68.41 Body mass index [BMI] 40.0-44.9, adult; Z87.891 Personal history of nicotine dependence; Z91.040 Latex allergy status

== ENCOUNTER 2022-12-07 20:28 | Emergency (ER) | payer OTHER ==
[~2022-12-07] VITALS: Ht 154 cm; Wt 100.0 kg
[~2022-12-07 20:28] MED LIST changes: -CYCL2DRO OU; +CYCL2DRO10 OU
[2022-12-07] MEDS ORDERED: LACTATED RINGERS 1,000 ML IV ONE (21:15)
[2022-12-07 21:31] LABS: BASOPHILS % (AUTO) 0 % (0-10); EOSINOPHILS # (AUTO) 0.3 10^3/uL (0.0-0.3); EOSINOPHILS % (AUTO) 3 % (0-10); HEMATOCRIT 51 % (35-52); HEMOGLOBIN 16.4 g/dL (11.5-16.0); LYMPHOCYTES # (AUTO) 2.4 10^3/uL (1.0-4.0); LYMPHOCYTES % (AUTO) 23 % (12-44); MEAN CORPUSCULAR HEMOGLOBIN 30 pg (25-34); MEAN CORPUSCULAR HGB CONC 32 g/dL (32-36); MEAN CORPUSCULAR VOLUME 92 fL (80-99); MEAN PLATELET VOLUME 9.5 fL (9.0-12.2); MONOCYTES # (AUTO) 0.7 10^3/uL (0.0-1.0); MONOCYTES % (AUTO) 6 % (0-12); NEUTROPHILS # (AUTO) 7.3 10^3/uL (1.8-7.8); NEUTROPHILS % (AUTO) 68 % (42-75); PLATELET COUNT 379 10^3/uL (130-400); WHITE BLOOD COUNT 10.7 10^3/uL (4.3-11.0)
[2022-12-07 21:50] LABS: ALBUMIN 4.4 GM/DL (3.2-4.5); POTASSIUM 3.7 MMOL/L (3.6-5.0)
[2022-12-07 21:51] LABS: CALCIUM 10.1 MG/DL (8.5-10.1)
[2022-12-07 21:52] LABS: CLARITY,URINE CLOUDY; COLOR,URINE YELLOW; GLUCOSE, URINE (UA) NEGATIVE (NEGATIVE); PH,URINE 6.5 (5-9); PROTEIN,URINE 3+ (NEGATIVE)
[2022-12-07 21:53] LABS: TOTAL PROTEIN 8.6 GM/DL (6.4-8.2)
[2022-12-07 21:53] LABS: BACTERIA,URINE MODERATE /HPF; BILIRUBIN,URINE 2+ (NEGATIVE); KETONES,URINE NEGATIVE (NEGATIVE); LEUKOCYTE ESTERASE ,URINE 3+ (NEGATIVE); NITRITE,URINE NEGATIVE (NEGATIVE)
[2022-12-07 21:54] LABS: BILIRUBIN,TOTAL 0.6 MG/DL (0.1-1.0)
[2022-12-07 21:56] LABS: CREATININE SERUM 1.55 MG/DL (0.60-1.30)
[2022-12-07 21:59] LABS: MAGNESIUM 1.9 MG/DL (1.6-2.4)
[2022-12-07 22:09] VITALS: BP_SYST 150; BP_SYST 162; BP_SYST 165; BP_DIAS 84; BP_DIAS 93; BP_DIAS 95
[2022-12-07] MEDS ORDERED: cefTRIAXone IV/IM 1,000 MG in NS (IVPB) 50 ML 50 ML IV ONE (22:15)
[2022-12-07 22:35] LABS: TSH (THYROID ANALYZER) 2.61 UIU/ML (0.35-4.94)
[2022-12-07] MEDS ORDERED: ONDA4TAB11 PO (23:27)
[2022-12-07] MEDS ORDERED: CEFD300C3 PO (23:27)
--- NOTE | 2022-12-07 23:27 | ED General ---
General Chief Complaint: Dizziness/Syncope Stated Complaint: DEHYDRATED/DIZZY/UNABLE TO FOCUS Nursing Triage Note: PT AMB TO TRIAGE, PT CO OF DIZZINESS AND SLEEPING ALOT. PT ALSO CO OF L LOWER BACK SCIATCA PAIN Source of Information: Patient History of Present Illness Date Seen by Provider: Dec 07, 2022 Time Seen by Provider: 21:13 Initial Comments PT ARRIVES VIA POV FROM HOME STATES " I FEEL ICKY" STATES SHE "JUST DIDN'T FEEL GOOD" WHEN SHE WOKE UP YESTERDAY MORNING SLEPT ALL DAY YESTERDAY AND TODAY HAS NOT HAD ANYTHING TO EAT OR DRINKS SINCE THURSDAY NIGHT "BECAUSE I'VE BEEN SLEEPING" SHE GOT UP TONIGHT, TO TAKE A SHOWER, JUST PRIOR TO ARRIVAL, AND FELT NAUSEATED AND DIZZY AND STATES SHE FEELS LIKE SHE "ISN'T THINKING RIGHT" SHE STATES SHE STARTED DRINKING A BOTTLE OF GATORADE ON THE WAY HERE NO VOMITING OR DIARRHEA NO ABDOMINAL PAIN NO FEVER/SWEATS/CHILLS NO URINARY SYMPTOMS AND IS VOIDING A NORMAL AMOUNT NO CHEST PAIN OR PALPITATIONS NO SHORTNESS OF BREATH NO SYNCOPE NO VISION CHANGES NO HEADACHE NO PARESTHESIAS OR MOTOR DEFICITS PT STATES SHE HAS CHRONIC SCIATICA PROBLEMS AND TAKES MUSCLE RELAXANTS AND ANTI- INFLAMMATORIES FREQUENTLY FOR IT. BUT HAS NOT BEEN ON ANY MEDICATIONS RECENTLY FOR IT. PT ALSO STATES SHE HAS "STAGE 4 KIDNEY DISEASE" BUT DOES NOT SEE A CHIEF ACCOUNTING OFFICER SHE ALSO HAS HTN, GERD, COLITIS AND "BORDERLINE DIABETES" SHE HAS NOT TAKEN ANY OF HER MEDICATIONS FOR THE LAST 2 DAYS "BECAUSE I WAS SLEEPING" PCP: [facility] Allergies and Home Medications Allergies Coded Allergies: adhesive tape (Verified Allergy, Unknown, 05/25/19) latex (Verified Allergy, Unknown, 05/25/19) methotrexate (Verified Allergy, Unknown, INCREASED LIVER ENZYMES, 05/25/19) procaine (Verified Allergy, Unknown, RASH, 05/25/19) Patient Home Medication List Home Medication List Reviewed: Yes Albuterol Sulfate (Proair Respiclick) 90 Mcg Aer.pow.ba, 2 PUFF INH Q4H PRN for SHORTNESS OF BREATH, (Reported) Entered as Reported by: DOMENICA ALFARO on 10/01/17 0843 Amitriptyline HCl (Amitriptyline HCl) 25 Mg Tablet, 50 MG PO HS, (Reported) Entered as Reported by: FEMI WHITTINGTON on 11/11/18 1234 Benzonatate (Tessalon Perles) 100 Mg Capsule, 100 MG PO Q6H PRN for COUGH Prescribed by: DAVONTE BREAUX on 11/19/20 0128 Cefdinir (Cefdinir) 300 Mg Capsule, 300 MG PO BID Prescribed by: ELIZABETH ROBLEDO on 12/07/22 2327 Colestipol HCl (Colestipol HCl) 1 Gm Tablet, 1 GM PO HS, (Reported) Entered as Reported by: PHOENIX RAYMOND on 10/01/17 0533 Folic Acid (Folic Acid) 1 Mg Tablet, 1 MG PO HS, (Reported) Entered as Reported by: DOMENICA ALFARO on 10/01/17 0843 Magnesium (Magnesium) 250 Mg Tablet, 250 MG PO HS, (Reported) Entered as Reported by: FEMI WHITTINGTON on 11/11/18 1234 [place]-3 Fatty Acids/Fish Oil ([place] 3 1,000 mg Softgel) 300 Mg-1,000 Mg Capsule, 1 EACH PO DAILY, (Reported) Entered as Reported by: VANDANA ROACH on 11/13/21 1047 Omeprazole (Omeprazole) 20 Mg Capsule.dr, 80 MG PO DAILY, (Reported) Entered as Reported by: FEMI WHITTINGTON on 11/11/18 1234 Ondansetron (Ondansetron Odt) 4 Mg Tab.rapdis, 4 MG PO Q4H Prescribed by: ELIZABETH ROBLEDO on 12/07/22 2327 Propranolol HCl (Propranolol HCl) 20 Mg Tablet, 20 MG PO BID, (Reported) Entered as Reported by: PHOENIX RAYMOND on 10/01/17 0535 Simvastatin (Simvastatin) 40 Mg Tablet, 40 MG PO HS, (Reported) Entered as Reported by: DOMENICA ALFARO on 10/01/17 0843 Tiotropium [place] (Spiriva Respimat 2.5MCG/ACTUATION) 2.5 Mcg/Actuation Mist.inhal, 2 PUFF IH DAILY, (Reported) Entered as Reported by: VANDANA ROACH on 11/13/21 1047 Venlafaxine HCl (Effexor Xr) 150 Mg Cap.er.24h, 150 MG PO DAILY, (Reported) Entered as Reported by: SEAN CAICEDO on 05/25/19 1322 Review of Systems Review of Systems Constitutional: see HPI, dizziness, malaise, weakness EENTM: no symptoms reported Respiratory: no symptoms reported Cardiovascular: no symptoms reported Gastrointestinal: see HPI; No abdominal pain, No diarrhea; nausea; No vomiting Genitourinary: no symptoms reported Musculoskeletal: no symptoms reported Skin: no symptoms reported Psychiatric/Neurological: No Symptoms Reported Hematologic/Lymphatic: No Symptoms Reported Immunological/Allergic: no symptoms reported Past Nkwslxz-Fxckzr-Vamnuv Hx Patient Social History Tobacco Use?: No Substance use?: Yes Substance type: Marijuana Additional substance use comme: [employer] Substance frequency: Daily Alcohol Use?: No Pt feels they are or have been: No Immunizations Up To Date First/Initial COVID19 Vaccinat: 08/01/20 Second COVID19 Vaccination Felix: 08/01/20 Third COVID19 Vaccination Date: NO Seasonal Allergies Seasonal Allergies: Yes Past Medical History Surgery/Hospitalization HX: KIDNEY DISEASE, TUBAL , APPY, GB, R KNEE ARTHOSCOPY, HTN, GERD, DEPRESSION, HOTFLASHES, PSORIATIC, RHUEMATOID,OSTEOARTHRITIS Surgeries: Yes (RIGHT KNEE SCOPE,BILAT CATARACTS 06/2019; EGD/COLONOSCOPY) Appendectomy, Eye Surgery, Gallbladder, Hysterectomy, Orthopedic, Tubal Ligation Respiratory: Yes (asthma) Asthma, Chronic Bronchitis, COPD Cardiac: Yes High Cholesterol, Hypertension 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) Vertigo 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: Tubal Ligation, Menopausal Sexually Transmitted Disease: No Genitourinary: Yes (stage 4 kidney disease) Renal Failure Gastrointestinal: Yes (FATTY LIVER, GASTRITIS) Colitis, Gastroesophageal Reflux, Liver Disease/Jaundice, Diverticulosis, Hiatal Hernia Musculoskeletal: Yes Arthritis, Fibromyalgia Endocrine: No HEENT: Yes (IRITIS) Cancer: No Psychosocial: No Integumentary: No Blood Disorders: No Family Medical History No Pertinent Family Hx, Diabetes Patient Social History Alcohol Use: Rarely Uses Recreational Drug Use: Yes (THC, METH, COCAINE BY HISTORY--DENIES IV USE--CLAIMS "NO USE FOR YEARS" BUT TESTED + FOR METHAMPHETAMINES 09/30/17) Drug of Choice: THC,METH,COCAINE-NO IV USE.CLAIMS "NONE FOR YEARS"-TEST + FOR METH 09/30/17 Smoking Status: Former Smoker (1 05/05 PPD--QUIT 1 YEAR AGO) Type Used: Cigarettes, Electronic/Vapor Recent Foreign Travel: No Physical Exam Vital Signs Vital Signs - First Documented 12/07/22 20:48 Pulse 94 Resp 18 B/P (MAP) 133/82 (99) Pulse Ox 96 Capillary Refill : Less Than 3 Seconds Height, Weight, BMI Height: 5'1.00" Weight: 225lbs. 0.0oz. 102.468182us; 42.00 BMI Method:Stated General Appearance: No Apparent Distress, WD/WN, Other (DOES NOT APPEAR ILL OR TO BE IN ANY DISCOMFORT OR DISTRESS. SPEECH CLEAR AND TALKS NON-STOP AT LENGTH.. 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0 g/dL Hematocrit 51 35-52 % Mean Corpuscular Volume 92 80-99 fL Mean Corpuscular Hemoglobin 30 25-34 pg Mean Corpuscular Hemoglobin Concent 32 32-36 g/dL Red Cell Distribution Width 13.1 10.0-14.5 % Platelet Count 379 130-400 10^3/uL Mean Platelet Volume 9.5 9.0-12.2 fL Immature Granulocyte % (Auto) 0 % Neutrophils (%) (Auto) 68 42-75 % Lymphocytes (%) (Auto) 23 12-44 % Monocytes (%) (Auto) 6 0-12 % Eosinophils (%) (Auto) 3 0-10 % Basophils (%) (Auto) 0 0-10 % Neutrophils # (Auto) 7.3 1.8-7.8 10^3/uL Lymphocytes # (Auto) 2.4 1.0-4.0 10^3/uL Monocytes # (Auto) 0.7 0.0-1.0 10^3/uL Eosinophils # (Auto) 0.3 0.0-0.3 10^3/uL Basophils # (Auto) 0.0 0.0-0.1 10^3/uL Immature Granulocyte # (Auto) 0.0 0.0-0.1 10^3/uL Sodium Level 138 135-145 MMOL/L Potassium Level 3.7 3.6-5.0 MMOL/L Chloride Level 102 98-107 MMOL/L Carbon Dioxide Level 22 21-32 MMOL/L Anion Gap 14 5-14 MMOL/L Blood Urea Nitrogen 15 7-18 MG/DL Creatinine 1.55 H 0.60-1.30 MG/DL Estimat Glomerular Filtration Rate 39 BUN/Creatinine Ratio 10 Glucose Level 131 H 70-105 MG/DL Calcium Level 10.1 8.5-10.1 MG/DL Corrected Calcium 9.8 8.5-10.1 MG/DL Magnesium Level 1.9 1.6-2.4 MG/DL Total Bilirubin 0.6 0.1-1.0 MG/DL Aspartate Amino Transf (AST/SGOT) 36 H 5-34 U/L Alanine Aminotransferase (ALT/SGPT) 62 H 0-55 U/L Alkaline Phosphatase 145 H 40-136 U/L Total Protein 8.6 H 6.4-8.2 GM/DL Albumin 4.4 3.2-4.5 GM/DL Amylase Level 40 25-125 U/L Lipase 53 8-78 U/L T[facility] Testing 2.61 0.35-4.94 UIU/ML Urine Color YELLOW Urine Clarity CLOUDY Urine pH 6.5 5-9 Urine Specific [place] 1.010 L 1.016-1.022 Urine Protein 3+ H NEGATIVE Urine Glucose (UA) NEGATIVE NEGATIVE Urine Ketones NEGATIVE NEGATIVE Urine Nitrite NEGATIVE NEGATIVE Urine Bilirubin 2+ H NEGATIVE Urine Urobilinogen 0.2 < = 1.0 MG/DL Urine Leukocyte Esterase 3+ H NEGATIVE Urine RBC (Auto) TRACE H NEGATIVE Urine RBC NONE /HPF Urine WBC 10-25 H /HPF Urine Squamous Epithelial Cells 10-25 H /HPF Urine Crystals NONE /LPF Urine Bacteria MODERATE H /HPF Urine Casts NONE /LPF Urine Mucus NEGATIVE /LPF Urine Culture Indicated YES Influenza Type A (RT-PCR) Not Detected Not Detecte Influenza Type B (RT-PCR) Not Detected Not Detecte SARS-CoV-2 RNA (RT-PCR) Not Detected Not Detecte Urine Opiates Screen NEGATIVE NEGATIVE Urine Oxycodone Screen NEGATIVE NEGATIVE Urine Methadone Screen NEGATIVE NEGATIVE Urine Propoxyphene Screen NEGATIVE NEGATIVE Urine Barbiturates Screen NEGATIVE NEGATIVE Ur Tricyclic Antidepressants Screen NEGATIVE NEGATIVE Urine Phencyclidine Screen NEGATIVE NEGATIVE Urine Amphetamines Screen NEGATIVE NEGATIVE Urine Methamphetamines Screen NEGATIVE NEGATIVE Urine Benzodiazepines Screen NEGATIVE NEGATIVE Urine Cocaine Screen NEGATIVE NEGATIVE Urine Cannabinoids Screen POSITIVE H NEGATIVE My Orders Orders - ELIZABETH ROBLEDO DO Covid 19 Inhouse Test (12/07/22 21:13) Ed Iv/Invasive Line Start (12/07/22 21:13) Ekg Tracing (12/07/22 21:13) Monitor-Rhythm Ecg Trace Only (12/07/22 21:13) Orthostatic Vital Signs (Adult (12/07/22 21:13) Amylase (12/07/22 21:13) Cbc With Automated Diff (12/07/22 21:13) Comprehensive Metabolic Panel (12/07/22 21:13) Lipase (12/07/22 21:13) Magnesium (12/07/22 21:13) Thyroid Analyzer (12/07/22 21:13) Ua Culture If Indicated (12/07/22 21:13) Ed Iv/Invasive Line Start (12/07/22 21:13) Lactated Ringers (Lr 1000 Ml Iv Solution (12/07/22 21:15) Influenza A And B By Pcr (12/07/22 21:13) Urine Culture (12/07/22 21:32) Ceftriaxone Iv/Im (Ceftriaxone Iv/Im) (12/07/22 22:15) Ct Chest/Abdomen/Pelvis Wo (12/07/22 22:07) Drug Screen Stat (Urine) (12/08/22 01:01) Medications Given in ED Current Medications Medications Dose Ordered Sig/Erick Route Start Time Stop Time Status Last Admin Dose Admin Ceftriaxone Sodium 1000 mg/ Sodium Chloride 50 ml @ 100 mls/hr ONCE ONCE IV 12/07/22 22:15 12/07/22 22:44 DC 12/07/22 22:22 100 MLS/HR Lactated Ringer's 1,000 ml @ 0 mls/hr Q0M ONCE IV 12/07/22 21:15 12/07/22 21:16 DC 12/07/22 21:24 1,000 MLS/HR Vital Signs/I&O 12/07/22 12/07/22 12/07/22 20:48 22:09 23:43 Pulse 94 77 78 82 86 Resp 18 18 B/P (MAP) 133/82 (99) 162/84 (110) 176/105 165/95 (118) 150/93 (112) Pulse Ox 96 96 Capillary Refill : Less Than 3 Seconds Blood Pressure Mean: 112 Progress Note : Progress Note GIVEN: -IV FLUIDS -ROCEPHIN ORTHOSTATIC VITALS: -LAYING--BP 162/84, HR 77, O2 SAT 94% -SITTING---BP 165/95, HR 82, O2 SAT 95% -STANDING--BP 150/93, HR 86, O2 SAT 95% VITALS STABLE, AFEBRILE PT STATES SHE FEELS MUCH BETTER AND FEELS LIKE SHE CAN "THINK STRAIGHT" NOW, AFTER IV FLUIDS NO DIZZINESS AT DISMISSAL AND PT IS ABLE TO WALK WITHOUT DIFFICULTY. LABS INCLUDING CBC, CMP, UA, ETOH, UDS, AMYLASE/LIPASE, MG, COVID/FLU TESTING ORDERED WELL EKG COVID AND FLU ARE NEGATIVE CBC WITH WBC 10.7, HGB 16.4, PLT 310,000 CMP WITH NA 138, K 3.7, BUN 15, CR 1.55, GLU 131, MG 1.9, AST 36, ALT 62, AMYLASE/LIPASE NORMAL TSH NORMAL AT 2.61 UA WITH 3+ PROTEIN, 2+ BILI, 3+ LEUKOCYTES, 10-25 WBC, MODERATE BACTERIA UDS + FOR THC EKG IS UNREMARKABLE CXR IS UNREMARKABLE CT CHEST/ABDOMEN/PELVIS IS UNREMARKABLE NO DETERIORATION IN PT'S CONDITION DURING ER STAY DISCUSSED TEST RESULTS, ANTICIPATED COURSE, MEDICATIONS, SYMPTOMATIC TREATMENT, NEED FOR FOLLOW UP AND RETURN PRECAUTIONS PT STATES SHE WAS ALREADY AWARE OF FATTY LIVER. REVIEWED PRIOR RECORDS, INCLUDING ER VISITS, ADMITS/H&P'S/CONSULTS/DISCHARGE SUMMARIES, TESTS/PROCEDURES. ECG Initial ECG Impression Date: Dec 07, 2022 Initial ECG Impression Time: 21:24 Initial ECG Rate: 84 Initial ECG Rhythm: Normal Sinus Initial ECG Intervals: Normal Initial ECG Comparisson: Unchanged Comment INTERPRETED BY ME Diagnostic Imaging Comments CXR--NO ACUTE PROCESS, PENDING RADIOLOGIST REVIEW CT CHEST/ABDOMEN/PELVIS--PER [facility] VIA FAX AT 9066 -NO ACUTE PROCESS -DIFFUSE HEPATIC STEATOSIS Reviewed: Reviewed by Me Departure Impression Primary Impression: UTI (urinary tract infection) Additional Impression: Dehydration Disposition: HOME, SELF-CARE Condition: Improved Departure-Patient Inst. Decision time for Depature: 23:20 Referrals: [facility] [place] (PCP/Family) Primary Care Physician Patient Instructions: Urinary Tract Infection, Adult (DC), Dehydration, Adult (DC) Add. Discharge Instructions: HOME, REST INCREASE YOUR FLUID INTAKE, LOTS OF CLEAR LIQUIDS--WATER, BROTH, JELLO, GATORADE TYLENOL 1 GRAM EVERY 6 HOURS FOR PAIN OR FEVER FOLLOW UP WITH YOUR DR IN 3-4 DAYS FOR FURTHER CARE RETURN TO ER IF YOUR SYMPTOMS WORSEN All discharge instructions reviewed with patient and/or family. Voiced understanding. Scripts Ondansetron (Ondansetron Odt) 4 Mg Tab.rapdis 4 MG PO Q4H for Nausea/Vomiting, #10 TAB Prov: ELIZABETH ROBLEDO DO 12/07/22 Cefdinir (Cefdinir) 300 Mg Capsule 300 MG PO BID, #20 CAP Prov: ELIZABETH ROBLEDO DO 12/07/22 ELIZABETH ROBLEDO DO Dec 07, 2022 23:27
[2022-12-07 23:43] VITALS: BP 176/105
[2022-12-08 01:20] LABS: AMPHETAMINE SCREEN, URINE NEGATIVE (NEGATIVE); BARBITURATE SCREEN URINE NEGATIVE (NEGATIVE); BENZODIAZEPINES SCREEN URINE NEGATIVE (NEGATIVE); CANNABINOID SCREEN, URINE POSITIVE (NEGATIVE); COCAINE SCREEN URINE NEGATIVE (NEGATIVE); METHADONE STAT NEGATIVE (NEGATIVE); OPIATE SCREEN URINE NEGATIVE (NEGATIVE); OXYCODONE STAT NEGATIVE (NEGATIVE); PROPOXYPHENE STAT NEGATIVE (NEGATIVE); TRICYCLIC ANTIDEPRESSANTS SCRE NEGATIVE (NEGATIVE)
--- NOTE | 2022-12-08 08:55 | Diagnostic Imaging Report ---
PROCEDURE: CT chest, abdomen, and pelvis without contrast. TECHNIQUE: Multiple contiguous axial images were obtained through the chest, abdomen, and pelvis without the use of intravenous contrast. Auto Exposure Controls were utilized during the CT exam to meet ALARA standards for radiation dose reduction. INDICATION: Fever and weakness COMPARISON: CT abdomen and pelvis 03/24/2016. FINDINGS: CT CHEST: No abnormality in the trachea. Moderate centrilobular emphysema is present in the lung apices. There is no pneumonia or edema. No pleural effusion or pneumothorax. No supraclavicular or axillary adenopathy. No mediastinal or hilar lymphadenopathy. Heart is normal in size. Normal caliber thoracic aorta. No pleural effusion. No worrisome focal osseous lesions. No features of discitis-osteomyelitis in the thoracic spine. CT ABDOMEN AND PELVIS: No free intraperitoneal air or fluid. No loculated fluid collections to suggest abscess. The liver is enlarged at 19 cm as diffuse low attenuation indicative of steatosis. Cholecystectomy. The spleen and pancreas are normal. No adrenal mass. No renal mass or obstructive uropathy. Urinary bladder is normally filled. Uterus is unremarkable. No adnexal mass. Stomach is decompressed. No dilated bowel to indicate bowel obstruction. No pericolonic inflammatory change. Appendix is not seen and could be surgically absent. Descending and sigmoid colon diverticulosis without diverticulitis. Normal caliber abdominal aorta has moderate atherosclerotic plaquing. No worrisome focal osseous lesions. IMPRESSION: 1. No acute inflammatory process within the chest. 2. No acute inflammation or obstruction within the abdomen or pelvis. 3. Hepatomegaly with diffuse steatosis. 4. Findings are in agreement with the preliminary report. Dictated by: Dictated on workstation # [id number]
== END 2022-12-07 23:43 | disposition home or self-care (01) ==
LOC: EDUNIT# 20:28 → ER 20:30
DX: N39.0 Urinary tract infection, site not specified (principal); E86.0 Dehydration; Z87.891 Personal history of nicotine dependence; Z20.822 Contact with and (suspected) exposure to COVID-19; Z91.040 Latex allergy status
CPT/HCPCS: 36415; 71250; 74176; 80053; 81000; 82150; 83690; 83735; 84443; 85025; 87088; 87636; 93005; 93041

== ENCOUNTER 2023-01-07 05:43 | Outpatient (CLI) | payer OTHER ==
[~2023-01-07] VITALS: Ht 154.9 cm; Wt 100.0 kg
[~2023-01-07 05:43] MED LIST changes: +CEFD300C3 PO
[2023-01-08] MEDS ORDERED: ERGO1250 PO (09:50)
[2023-01-08] MEDS ORDERED: ATOR40TA70 PO (09:50)
[2023-01-08] MEDS ORDERED: AMLO-250 PO (09:50)
[2023-01-08] MEDS ORDERED: OMEP40CA6 PO (09:50)
[2023-01-08] MEDS ORDERED: VENL75CA93 PO (09:50)
[2023-01-08] MEDS ORDERED: ALBU2.5V4 IH (09:50)
[2023-01-08] MEDS ORDERED: ONDA4TAB11 SL (09:50)
== END 2023-01-08 10:05 | disposition home or self-care (01) ==
LOC: PREOP 05:43
PROVIDERS: ATTEND Surgery
DX: Z01.818 Encounter for other preprocedural examination (principal)

== ENCOUNTER 2023-01-19 08:30 | Day surgery (SDC) | payer OTHER ==
[~2023-01-19] VITALS: Ht 154.9 cm; Wt 100.0 kg
[~2023-01-19 08:30] MED LIST changes: +ALBU2.5V4 IH; +AMLO-250 PO; +ATOR40TA70 PO; +ERGO1250 PO; +ONDA4TAB11 SL; +VENL75CA93 PO
[2023-01-19] MEDS ORDERED: LACTATED RINGERS 1,000 ML 1,000 ML IV STA (08:33)
[2023-01-19] MEDS ORDERED: HURRICAINE EXT TUBE (BENZOCAINE) XX PRN (08:45)
[2023-01-19 08:50] VITALS: BP 146/83
--- NOTE | 2023-01-19 09:20 | Progress Note-Pre Operative ---
Pre-Operative Progress Note Date of Available H&P: Dec 30, 2022 Date H&P Reviewed: Jan 19, 2023 Time H&P Reviewed: 09:19 History & Physical: H&P Reviewed, Patient Examed, No changes noted Pre-Operative Diagnosis: Duodenitis, Dysphagia FADI BENTLEY DO Jan 19, 2023 09:20
[2023-01-19] MEDS ORDERED: MIDAZOLAM INJ 2 MG/2 ML VIAL ONE (09:55)
[2023-01-19 10:10] VITALS: BP 101/51
--- NOTE | 2023-01-19 10:14 | Progress Note-Post Operative ---
Post-Operative Progess Note Surgeon (s)/Coke Drawer Hand (s) Surgeon FADI BENTLEY DO Coke Drawer Hand: none Pre-Operative Diagnosis Duodenitis with dysplasia Post-Operative Diagnosis Gastritis Hiatal hernia Procedure & Operative Findings Date of Procedure 01/19/23 Procedure Performed/Findings EGD with biopsy PROCEDURE NOTE: After informed consent was obtained, the patient was brought to the endoscopy suite, placed in bed in left lateral decubitus position. She was administered IV sedation by the MEDICAID BILLING SPECIALIST who then monitored vitals the entire time, heart rate, blood pressure and pulse ox and the scope was inserted down the mouth through the esophagus into the stomach. On the way down, noted some mild esophagitis, took a picture, pushed into the stomach, pushed past the antrum into the duodenum. Duodenum looked much better than last time, didn't really look like inflammation at all this time. I did a biopsy in the duodenal bulb and then did a biopsy of the antrum. Next, retroflexed the scope and saw a very small hiatal hernia, took a picture of this and then pulled the scope into the GE junction. I took another picture of the hiatal hernia and then did a biopsy of the GE junction. Pushed the scope back into the stomach, suctioned all the air out of the stomach. At this point pulled the scope up the esophagus and out the mouth. The patient tolerated the procedure, and she recovered in endoscopy suite. Anesthesia Type IV sedation by MEDICAID BILLING SPECIALIST Estimated Blood Loss Estimated blood loss (mL): scant Specimens/Packing Specimens Removed duodenal bx antral bx GE jxn bx FADI BENTLEY DO Jan 19, 2023 10:14
[2023-01-19 10:15] VITALS: BP 104/56
--- NOTE | 2023-01-19 10:15 | Endoscopy Discharge Instruct ---
Endo Procedure/Findings Findings 1.: Gastritis 2.: Hiatal Hernia Discharge Instructions - Activity: You might feel a little sleepy until tomorrow. This is due to the medicine you received to relax you. Until tomorrow, you should: NOT drive a car, operate machinery or power tools. NOT drink any alcoholic beverages. NOT make any important decisions or sign importortant papers. Do not return to work until tomorrow, unless otherwise instructed. Resume previous activities tomorrow. Diet: Start by taking liquids. If you tolerate liquids, advance to solid food. 1.: EGD in 3 years Notify Physician - If you experience excessive bleeding, unusual abdominal pain, fever, or chest pain, contact your doctor immediately. Follow-Up: Other Follow up in my office in one week FADI BENTLEY DO Jan 19, 2023 10:15
[2023-01-19 10:20] VITALS: BP 104/56
[2023-01-19 10:35] VITALS: BP 104/56
--- NOTE | 2023-01-19 12:14 | Anesthesia-General Post-Op ---
MAC Patient Condition Mental Status/LOC: Same as Preop Cardiovascular: Satisfactory Nausea/Vomiting: Absent Respiratory: Satisfactory Pain: Controlled Complications: Absent Post Op Complications Complications None Follow Up Care/Instructions Patient Instructions None needed. Anesthesiology Discharge Order Discharge Order Patient is doing well, no complaints, stable vital signs, no apparent adverse anesthesia problems. No complications reported per nursing. SYMONE LONG CRNA Jan 19, 2023 12:14
== END 2023-01-19 10:42 | disposition home or self-care (01) ==
LOC: ENDO 08:30
PROVIDERS: ATTEND Surgery
DX: K29.70 Gastritis, unspecified, without bleeding (principal); K22.70 Barrett's esophagus without dysplasia; K21.9 Gastro-esophageal reflux disease without esophagitis; K44.9 Diaphragmatic hernia without obstruction or gangrene; K31.89 Other diseases of stomach and duodenum; D13.30 Benign neoplasm of unspecified part of small intestine; E66.01 Morbid (severe) obesity due to excess calories; Z68.41 Body mass index [BMI] 40.0-44.9, adult; Z87.891 Personal history of nicotine dependence; Z79.899 Other long term (current) drug therapy
CPT/HCPCS: 88305

== ENCOUNTER 2023-03-24 01:41 | Emergency (ER) | payer OTHER ==
[~2023-03-24] VITALS: Ht 154 cm; Wt 99.7 kg
[2023-03-24 01:49] VITALS: BP 145/92
--- NOTE | 2023-03-24 02:26 | ED General ---
General Chief Complaint: Facial Problems Stated Complaint: RT SIDE OF FACE SWOLLEN,DIZZY Nursing Triage Note: PATIENT REPORTS PSORIASIS, STATES HASN'T BEEN ON STELARA FOR LAST SIX MONTHS. PATIENT STATES SHE SMOKES WEED DAILY FOR PAIN, AND DID METH LAST WEEK DUE TO STRESS AND IN FAMILY. PATIENT COMPLAINT OF PAIN PSORIASIS FLAIR UP RT SIDE FACE, SWOLLEN AND RED. Source of Information: Patient Exam Limitations: No Limitations History of Present Illness Date Seen by Provider: Mar 24, 2023 Time Seen by Provider: 02:25 Initial Comments Patient is a 58-year-old female who presents to the emergency room with a chief complaint of redness, facial pain, rash onset over the last 3 days. She has been very fatigued. She woke up early this morning, dizzy and not feeling well. She states she is basically just slept for the last 3 days. She has a history of psoriasis and was concerned that she was having a "flare" in her face. She has a history of chronic kidney disease. She is "borderline diabetic". She has not taken anything for the pain this evening. No nausea, no chest pain, no shortness of breath. Her right eye is almost entirely involved with swelling in the upper and lower lid. She denies blurry vision. She states the pain and swelling seem to start "in my gland" on the right side of her neck. It has slow ly worked its way up into her ear which is significantly edematous into her face up across her forehead, it does cross the midline. She has never had chickenpox or shingles before. No blistering is observed but the rash is raised. Timing/Duration: 2-3 Days Severity: Severe Associated Systoms: Malaise, Weakness Allergies and Home Medications Allergies Coded Allergies: adhesive tape (Verified Allergy, Unknown, 05/25/19) latex (Verified Allergy, Unknown, 05/25/19) methotrexate (Verified Allergy, Unknown, INCREASED LIVER ENZYMES, 05/25/19) procaine (Verified Allergy, Unknown, RASH, 05/25/19) Patient Home Medication List Home Medication List Reviewed: Yes Albuterol Sulfate (Proair Respiclick) 90 Mcg Aer.pow.ba, 2 PUFF INH Q4H PRN for SHORTNESS OF BREATH, (Reported) Entered as Reported by: DOMENICA ALFARO on 10/01/17 0843 Albuterol Sulfate (Albuterol Sulfate) 2.5 Mg/3 Ml (0.083 %) Vial.neb, 2.5 MG IH Q4H PRN for WHEEZING, (Reported) Entered as Reported by: FEMI WHITTINGTON on 01/08/23 0950 Amlodipine Besylate (Amlodipine Besylate) 5 Mg Tablet, 5 MG PO DAILY, (Reported) Entered as Reported by: FEMI WHITTINGTON on 01/08/23 0950 Atorvastatin Calcium (Atorvastatin Calcium) 40 Mg Tablet, 40 MG PO HS, (Reported) Entered as Reported by: FEMI WHITTINGTON on 01/08/23 0950 Cephalexin (Cephalexin) 500 Mg Tablet, 500 MG PO TID Prescribed by: DANIEL DANG on 03/24/23 0502 Ergocalciferol (Vitamin D2) (Vitamin D2) 1,250 Mcg (61718 Unit) Capsule, 1,250 MCG PO WEEK, (Reported) Entered as Reported by: FEMI WHITTINGTON on 01/08/23 0950 Folic Acid (Folic Acid) 1 Mg Tablet, 1 MG PO HS, (Reported) Entered as Reported by: DOMENICA ALFARO on 10/01/17 0843 Hydrocodone/Acetaminophen (Hydrocodone-Acetamin 5-325 mg) 5 Mg-325 Mg Tablet, 1 TAB PO Q6H PRN for PAIN-MODERATE (5-7) Prescribed by: DANIEL DANG on 03/24/23 0502 Magnesium (Magnesium) 250 Mg Tablet, 250 MG PO HS, (Reported) Entered as Reported by: FEMI WHITTINGTON on 11/11/18 1234 [place]-3 Fatty Acids/Fish Oil ([place] 3 1,000 mg Softgel) 300 Mg-1,000 Mg Capsule, 1 EACH PO DAILY, (Reported) Entered as Reported by: VANDANA ROACH on 11/13/21 1047 Omeprazole (Omeprazole) 40 Mg Capsule.dr, 40 MG PO DAILY, (Reported) Entered as Reported by: FEMI WHITTINGTON on 01/08/23 0950 Ondansetron (Ondansetron Odt) 4 Mg Tab.rapdis, 4 MG SL Q4H PRN for NAUSEA/VOMITING, (Reported) Entered as Reported by: FEMI WHITTINGTON on 01/08/23 0950 Propranolol HCl (Propranolol HCl) 20 Mg Tablet, 20 MG PO BID, (Reported) Entered as Reported by: PHOENIX RAYMOND on 10/01/17 0535 Tiotropium Elliott (Spiriva Respimat 2.5MCG/ACTUATION) 2.5 Mcg/Actuation Mist.inhal, 2 PUFF IH DAILY, (Reported) Entered as Reported by: VANDANA ROACH on 11/13/21 1047 Valacyclovir HCl (Valacyclovir) 1,000 Mg Tablet, 1,000 MG PO TID Prescribed by: DANIEL DANG on 03/24/23 0502 Venlafaxine HCl (Venlafaxine HCl ER) 75 Mg Cap.er.24h, 75 MG PO DAILY, (Reported) Entered as Reported by: FEMI WHITTINGTON on 01/08/23 0950 Review of Systems Review of Systems Constitutional: see HPI, dizziness EENTM: other (Facial redness, swelling and pain) Respiratory: no symptoms reported Cardiovascular: no symptoms reported Gastrointestinal: no symptoms reported Genitourinary: no symptoms reported Musculoskeletal: no symptoms reported Skin: no symptoms reported Past Skkcqlt-Kznisg-Gddseg Hx Immunizations Up To Date First/Initial COVID19 Vaccinat: 08/01/20 Second COVID19 Vaccination Felix: 08/01/20 Third COVID19 Vaccination Date: NO Seasonal Allergies Seasonal Allergies: Yes Past Medical History Surgery/Hospitalization HX: KIDNEY DISEASE, TUBAL , APPY, GB, R KNEE ARTHOSCOPY, HTN, GERD, DEPRESSION, HOTFLASHES, PSORIATIC, RHUEMATOID,OSTEOARTHRITIS Surgeries: Yes (RIGHT KNEE SCOPE,BILAT CATARACTS 06/2019; EGD/COLONOSCOPY) Appendectomy, Eye Surgery, Gallbladder, Hysterectomy, Orthopedic, Tubal Ligation Respiratory: Yes (asthma) Asthma, Chronic Bronchitis, COPD Cardiac: Yes High Cholesterol, Hypertension 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) Vertigo Reproductive Disorders: No [employer] History: Tubal Ligation, Menopausal Sexually Transmitted Disease: No Genitourinary: Yes (stage 4 kidney disease) Renal Failure Gastrointestinal: Yes (FATTY LIVER, GASTRITIS) Colitis, Gastroesophageal Reflux, Liver Disease/Jaundice, Diverticulosis, Hiatal Hernia Musculoskeletal: Yes Arthritis, Fibromyalgia Endocrine: No HEENT: Yes (IRITIS-getting injection in eyes) Cancer: No Psychosocial: No Integumentary: No Blood Disorders: No Family Medical History No Pertinent Family Hx, Diabetes Patient Social History Alcohol Use: Rarely Uses Recreational Drug Use: Yes (THC, METH, COCAINE BY HISTORY--DENIES IV USE--CLAIMS "NO USE FOR YEARS" BUT TESTED + FOR METHAMPHETAMINES 09/30/17) Drug of Choice: THC,METH,COCAINE-NO IV USE.CLAIMS "NONE FOR YEARS"-TEST + FOR METH 09/30/17 Smoking Status: Former Smoker (1 1/2 PPD--QUIT 1 YEAR AGO) Type Used: Cigarettes, Electronic/Vapor Recent Foreign Travel: No Physical Exam Vital Signs Vital Signs - First Documented 03/24/23 01:49 Temp 37.7 Pulse 105 Resp 20 B/P (MAP) 145/92 (109) Pulse Ox 94 O2 Delivery Room Air Capillary Refill : Less Than 3 Seconds Height, Weight, BMI Height: 5'1.00" Weight: 225lbs. 0.0oz. 102.993780qh; 42.00 BMI Method:Stated General Appearance: No Apparent Distress, WD/WN, Obese Eyes: Right Eye Other (Right eye circumferential erythema with upper and lower lid edema the globe itself looks normal pupils are equal round and reactive to light. Sclera is clear) HEENT: Pharynx Normal, Moist Mucous Membranes, Other (Right ear significantly edematous, I am able to visualize the tympanic membrane partially and it appears normal. She has no lesion at the tip of her nose. The rash involves the right cheek, right hinduism where it is somewhat shiny and plaque-like, raised erythematous rash crosses the midline of her forehead not quite vesicular at this point.) Neck: Normal Inspection; No Lymphadenopathy (L), No Lymphadenopathy (R) Respiratory: Lungs Clear, Normal Breath Sounds, No Accessory Muscle Use, No Respiratory Distress Cardiovascular: Regular Rate, Rhythm, Normal Peripheral Pulses Gastrointestinal: Non Tender, Soft Extremity: Normal Inspection, No Pedal Edema Neurologic/Psychiatric: Alert, Oriented x3, No Motor/Sensory Deficits, Normal Mood/Affect Skin: Normal Color, Warm/Dry, Other (See above ENT exam) Progress/Results/Core Measures Suspected Sepsis SIRS Temperature: Pulse: 105 Respiratory Rate: 20 Laboratory Tests 03/24/23 02:49: White Blood Count 17.1H Blood Pressure 145 /92 Mean: 109 Laboratory Tests 03/24/23 02:49: Creatinine 1.37H, Platelet Count 326, Total Bilirubin 0.7 Results/Orders Lab Results Laboratory Tests Test 03/24/23 02:49 Range/Units White Blood Count 17.1 H 4.3-11.0 10^3/uL Red Blood Count 4.89 3.80-5.11 10^6/uL Hemoglobin 14.3 11.5-16.0 g/dL Hematocrit 44 35-52 % Mean Corpuscular Volume 90 80-99 fL Mean Corpuscular Hemoglobin 29 25-34 pg Mean Corpuscular Hemoglobin Concent 32 32-36 g/dL Red Cell Distribution Width 13.1 10.0-14.5 % Platelet Count 326 130-400 10^3/uL Mean Platelet Volume 9.3 9.0-12.2 fL Immature Granulocyte % (Auto) 0 % Neutrophils (%) (Auto) 78 H 42-75 % Lymphocytes (%) (Auto) 13 12-44 % Monocytes (%) (Auto) 8 0-12 % Eosinophils (%) (Auto) 0 0-10 % Basophils (%) (Auto) 0 0-10 % Neutrophils # (Auto) 13.4 H 1.8-7.8 10^3/uL Lymphocytes # (Auto) 2.2 1.0-4.0 10^3/uL Monocytes # (Auto) 1.4 H 0.0-1.0 10^3/uL Eosinophils # (Auto) 0.0 0.0-0.3 10^3/uL Basophils # (Auto) 0.0 0.0-0.1 10^3/uL Immature Granulocyte # (Auto) 0.1 0.0-0.1 10^3/uL Neutrophils % (Manual) 75 % Lymphocytes % (Manual) 15 % Monocytes % (Manual) 5 % Reactive Lymphocytes 5 % Erythrocyte Sedimentation Rate 56 H 0-30 MM/HR Sodium Level 134 L 135-145 MMOL/L Potassium Level 3.8 3.6-5.0 MMOL/L Chloride Level 98 98-107 MMOL/L Carbon Dioxide Level 25 21-32 MMOL/L Anion Gap 11 5-14 MMOL/L Blood Urea Nitrogen 16 7-18 MG/DL Creatinine 1.37 H 0.60-1.30 MG/DL Estimat Glomerular Filtration Rate 45 BUN/Creatinine Ratio 12 Glucose Level 132 H 70-105 MG/DL Calcium Level 9.1 8.5-10.1 MG/DL Corrected Calcium 9.3 8.5-10.1 MG/DL Total Bilirubin 0.7 0.1-1.0 MG/DL Aspartate Amino Transf (AST/SGOT) 39 H 5-34 U/L Alanine Aminotransferase (ALT/SGPT) 60 H 0-55 U/L Alkaline Phosphatase 188 H 40-136 U/L Total Protein 7.9 6.4-8.2 GM/DL Albumin 3.8 3.2-4.5 GM/DL My Orders Orders - DANIEL DANG MD Ed Iv/Invasive Line Start (03/24/23 02:37) Cbc And Automated Diff (03/24/23 02:37) Comprehensive Metabolic Panel (03/24/23 02:37) Erythrocyte Sedimentation Rate (03/24/23 02:37) Ns Iv 1000 Ml (Ns Iv 1000 Ml) (03/24/23 02:37) Acetaminophen Tablet (Acetaminophen Ta (03/24/23 02:45) Manual Differential (03/24/23 02:49) Cefazolin Injection (Cefazolin Injecti (03/24/23 04:45) Hydrocodone/Apap 7.5/325 Tab (Hydrocodon (03/24/23 05:15) Medications Given in ED Vital Signs/I&O 03/24/23 01:49 Temp 37.7 Pulse 105 Resp 20 B/P (MAP) 145/92 (109) Pulse Ox 94 O2 Delivery Room Air Capillary Refill : Less Than 3 Seconds Blood Pressure Mean: 109 Progress Note : Time: 04:57 Progress Note Patient seen and evaluated by me, evaluation today includes history and physical exam with CBC, comprehensive metabolic panel, sed rate. Pertinent physical exam findings well-developed well-nourished female, mild distress due to low-grade fever and rash over the face. She has a slightly raised erythematous rash over the right cheek, hinduism extending to the upper forehead crossing the midline as well as circumferential erythema and edema of the upper and lower right eyelids. She has no conjunctival injection, photophobia. She has no excessive tearing. The patient complains of no eye pain or change in visual acuity. She has a quite swollen right ear, her right ear canal is almost completely occluded due to edema. No open lesions are appreciated over the right ear, jawline and cheek or face. She does have suggestion of some papular change to the rash over the forehead but no vesicles. No crusting. No weeping of the rash. It is mildly tender. There is about a 3 cm area of shiny violaceous rash at the hinduism. The rest of her ENT exam is normal. She has no nystagmus. No lesions at the tip of her nose. Heart is regular, lungs are clear abdomen is benign, no focal neurologic deficits. Her temp is 37 7, heart rate is a little elevated at 105. Differential diagnosis includes shingles, exacerbation of chronic psoriasis, cellulitis, herpetic keratitis Labs independently reviewed and interpreted by me. Her CBC shows an elevated white blood cell count of 17.1 with 78% segmented neutrophils. Normal hemoglobin, hematocrit and platelets. Her comprehensive metabolic panel is pertinent for a mildly elevated creatinine at 1.37. Glucose a little high at 132. Her AST is elevated at 39 with an ALT of 60 and alk phos of 188. Her sed rate is a little above baseline at 56. Patient is treated in the emergency dep artment with a liter of normal saline and 500 mg of Tylenol. She has no deterioration in her condition throughout her stay in fact her symptoms of "dizziness" are improved tremendously at reevaluation. I deferred staining of her right eye due to no globe involvement. She has no eye pain or visual acuity complaints. No excessive tearing or photophobia. Low clinical concern for herpetic keratitis at this time. This may be shingles however she has no vesicular change to the rash. I am going to double cover her with both valacyclovir and antibiotics at this time. She was given a gram of Ancef in the department. Prescriptions for Keflex and the valacyclovir were sent to her pharmacy. I advised her to follow-up with her eye doctor and PCP here locally. Return precautions provided in both verbal and written format. All questions are sought and answered. Departure Impression Primary Impression: Cellulitis of face Disposition: 01 HOME, SELF-CARE Condition: Stable Departure-Patient Inst. Decision time for Depature: 04:57 Referrals: [facility] (PCP/Family) Primary Care Physician Patient Instructions: Cellulitis (Skin Infection), Adult ED Add. Discharge Instructions: Take the Cephalexin 500mg 3 times a day for 10 days. I am also staring you on Valacyclovir for possible Shingles. 1000mg 3 times a day for 7 days. Hydrocodone 5mg 1 pill every 6 hours as needed for pain. Take a stool softener daily while taking the pain medications because Hydrocodone can make you constipated. Please call your primary care doctor today for a follow up appointment early next week. Please call Dr Moctezuma's office for a check of your right eye. Return to the Emergency Department for any new, concerning or emergent concerns. Scripts Hydrocodone/Acetaminophen (Hydrocodone-Acetamin 5-325 mg) 5 Mg-325 Mg Tablet 1 TAB PO Q6H PRN for PAIN-MODERATE (5-7), #15 TAB Prov: DANIEL DANG MD 03/24/23 Valacyclovir HCl (Valacyclovir) 1,000 Mg Tablet 1000 MG PO TID, #21 TAB Prov: DANIEL DANG MD 03/24/23 Cephalexin (Cephalexin) 500 Mg Tablet 500 MG PO TID for 7 Days, #21 TAB Prov: DANIEL DANG MD 03/24/23 Copy Copies To 1: JEWELS ROMANO KATHRYN M MD Mar 24, 2023 02:25
[2023-03-24] MEDS: NS IV 1000 ML 1,000 ML IV STA (02:47)
[2023-03-24] MEDS: ACETAMINOPHEN 500 MG TABLET PO ONE (02:47)
[2023-03-24 02:55] LABS: BASOPHILS % (AUTO) 0 % (0-10); EOSINOPHILS % (AUTO) 0 % (0-10); HEMATOCRIT 44 % (35-52); HEMOGLOBIN 14.3 g/dL (11.5-16.0); LYMPHOCYTES # (AUTO) 2.2 10^3/uL (1.0-4.0); LYMPHOCYTES % (AUTO) 13 % (12-44); MEAN CORPUSCULAR HEMOGLOBIN 29 pg (25-34); MEAN CORPUSCULAR HGB CONC 32 g/dL (32-36); MEAN CORPUSCULAR VOLUME 90 fL (80-99); MEAN PLATELET VOLUME 9.3 fL (9.0-12.2); MONOCYTES # (AUTO) 1.4 10^3/uL (0.0-1.0); MONOCYTES % (AUTO) 8 % (0-12); NEUTROPHILS # (AUTO) 13.4 10^3/uL (1.8-7.8); NEUTROPHILS % (AUTO) 78 % (42-75); PLATELET COUNT 326 10^3/uL (130-400); WHITE BLOOD COUNT 17.1 10^3/uL (4.3-11.0)
[2023-03-24 03:08] LABS: ALBUMIN 3.8 GM/DL (3.2-4.5); POTASSIUM 3.8 MMOL/L (3.6-5.0)
[2023-03-24 03:09] LABS: CALCIUM 9.1 MG/DL (8.5-10.1)
[2023-03-24 03:11] LABS: TOTAL PROTEIN 7.9 GM/DL (6.4-8.2)
[2023-03-24 03:12] LABS: BILIRUBIN,TOTAL 0.7 MG/DL (0.1-1.0)
[2023-03-24 03:14] LABS: CREATININE SERUM 1.37 MG/DL (0.60-1.30)
[2023-03-24 03:21] LABS: ERYTHROCYTE SEDIMENTATION RATE 56 MM/HR (0-30); LYMPHOCYTES % (MANUAL) 15 %; MONOCYTES % (MANUAL) 5 %; NEUTROPHILS % (MANUAL) 75 %; REACTIVE LYMPHOCYTES 5 %
[2023-03-24] MEDS ORDERED: ACHD5005 PO (05:02)
[2023-03-24] MEDS ORDERED: CEPH500T PO (05:02)
[2023-03-24] MEDS ORDERED: VALA10007 PO (05:02)
[2023-03-24] MEDS: ceFAZolin 1,000 MG VIAL IV ONE (05:06)
[2023-03-24] MEDS: HYDROcodone/ACETAMINOPHEN 7.5 MG/325 MG TABLET PO ONE (05:07)
== END 2023-03-24 05:13 | disposition home or self-care (01) ==
LOC: EDUNIT# 01:41 → ER 01:44
DX: L03.211 Cellulitis of face (principal); E66.9 Obesity, unspecified; Z68.41 Body mass index [BMI] 40.0-44.9, adult; Z87.891 Personal history of nicotine dependence; Z91.040 Latex allergy status
CPT/HCPCS: 36415; 80053; 85007; 85027; 85652; 99282